=== PATIENT | male | born 1940 | race Caucasian/White ===

== ENCOUNTER 2016-05-04 07:09 | Inpatient (IN) | payer MEDICARE, BC ==
--- NOTE | 2016-05-04 07:18 | ED ---
Altered Mental Status HPI - General Chief Complaint: Altered Mental Status Stated Complaint: altered mental status Time Seen by Provider: 05/04/16 07:09 Source: patient, family, EMS, RN notes reviewed Mode of arrival: EMS Limitations: no limitations - History of Present Illness Initial Comments: This is a 76-year-old male with a history of chronic atrial fibrillation who prior to admission was noted by his to have a shaking episode where he appeared to be the that he was convulsing which lasted about 5 minutes. EMS was called he was very confused next he combative for approximately 15 minutes. He was noted by EMS to have on their arrival set of 94% heart rate of around 55 he slowly regained his cognition and fine was awake alert and oriented 3 with a time he arrived at the hospital. He denies any fevers chills nausea vomiting sweats no headache no focal loss of function to his upper or lower extremities no prior history of seizure disorder. He is not recall any palpitations or any other abnormal activities. No new medications. No prior history of strokes or TIAs. His blood glucose was well for per EMS. Additionally his heart rate was noted to drop down into the 30s briefly but has been maintaining a rate of approximately 55 otherwise. MD Complaint: altered mental status, confusion, other - Related Data Home Medications Medication Instructions Recorded Confirmed Allopurinol [Zyloprim] 300 mg PO DAILY 07/21/14 05/04/16 Ascorbic Acid [Vitamin C] 1,000 mg PO DAILY@1200 07/21/14 05/04/16 Aspirin 325 mg PO DAILY 07/21/14 05/04/16 Atenolol [Tenormin] 12.5 mg PO HS 07/21/14 05/04/16 Atorvastatin [Lipitor] 40 mg PO HS 07/21/14 05/04/16 [place]-3 Fatty Acids/Fish Oil [Fish 1,000 mg PO QAM 07/21/14 05/04/16 Oil 1,000 mg Softgel] Warfarin [Coumadin] 1 mg PO Q48H 07/21/14 05/04/16 Warfarin [Coumadin] 1.5 mg PO Q48H 07/21/14 05/04/16 amLODIPine [Norvasc] 5 mg PO QAM 07/21/14 05/04/16 Ascorbic Acid [Vitamin C] 500 mg PO HS 10/23/14 05/04/16 Losartan Potassium [Cozaar] 50 mg PO QAM 05/04/16 05/04/16 Multivitamins, Thera [Multivitamin] 1 tab PO DAILY@1200 05/04/16 05/04/16 Allergies Allergy/AdvReac Type Severity Reaction Status Date / Time No Known Allergies Allergy Verified 05/04/16 08:17 Review of Systems ROS Statement: Those systems with pertinent positive or pertinent negative responses have been documented in the HPI. ROS Other: All systems not noted in ROS Statement are negative. Past Medical History Past Medical History: Atrial Fibrillation, Hyperlipidemia, Hypertension, Myocardial Infarction ([place]), Prostate Disorder, Sleep Apnea/CPAP/BIPAP Additional Past Medical History / Comment(s): gout Last Myocardial Infarction Date:: 2001 History of Any Multi-Drug Resistant Organisms: None Reported Past Surgical History: Appendectomy, Heart Catheterization With Stent, Orthopedic Surgery Additional Past Surgical History / Comment(s): ORIF rt ankle and rt elbow, septal occluder for heart valve Past Anesthesia/Blood Transfusion Reactions: Motion Sickness Date of Last Stent Placement:: 10/2012 Past Psychological History: No Psychological Hx Reported Smoking Status: Former smoker Past Alcohol Use History: Rare Past Drug Use History: None Reported - Past Family History Sister(s) Family Medical History: Cancer General Exam - General Exam Comments Initial Comments: This is a well-developed well-nourished awake alert oriented 3 male Limitations: no limitations General appearance: alert, in no apparent distress Head exam: Present: atraumatic, normocephalic, normal inspection Eye exam: Present: normal appearance, PERRL, EOMI. Absent: scleral icterus, conjunctival injection, periorbital swelling ENT exam: Present: normal exam, mucous membranes moist Neck exam: Present: normal inspection. Absent: tenderness, meningismus, lymphadenopathy Respiratory exam: Present: normal lung sounds bilaterally. Absent: respiratory distress, wheezes, rales, rhonchi, stridor Cardiovascular Exam: Present: bradycardia, irregular rhythm. Absent: systolic murmur, diastolic murmur, rubs, gallop, clicks GI/Abdominal exam: Present: soft, normal bowel sounds. Absent: distended, tenderness, guarding, rebound, rigid Extremities exam: Present: normal inspection, full ROM, normal capillary refill. Absent: tenderness, pedal edema, joint swelling, calf tenderness Back exam: Present: normal inspection Neurological exam: Present: alert, oriented X3, CN II-XII intact Psychiatric exam: Present: normal affect, normal mood Skin exam: Present: warm, dry, intact, normal color. Absent: rash Course Vital Signs 05/04/16 05/04/16 07:10 09:03 Temperature 96.7 F L Pulse Rate 49 L 50 L Respiratory 18 18 Rate Blood Pressure 143/63 183/77 O2 Sat by Pulse 95 98 Oximetry - Reevaluation(s) Reevaluation #1: 05/04/16 10:49 Reevaluation patient reveals her to be awake alert oriented 3 no distress. Medical Decision Making - Medical Decision Making Reevaluation patient reveals no changes he is back to his usual self I did a long discussion with him and his regarding the findings additionally with Dr. Mondragon. Patient be admitted with evaluation by cardiology and neurology. - Lab Data Result diagrams: 05/04/16 07:40 05/04/16 07:40 Lab Results 05/04/16 05/04/16 05/04/16 Range/Units 07:40 07:40 07:40 WBC 5.8 (3.8-10.6) k/uL RBC 4.16 L (4.30-5.90) m/uL Hgb 13.5 (13.0-17.5) gm/dL Hct 41.0 (39.0-53.0) % MCV 98.7 (80.0-100.0) fL MCH 32.4 (25.0-35.0) pg MCHC 32.9 (31.0-37.0) g/dL RDW 14.0 (11.5-15.5) % Plt Count 114 L (150-450) k/uL Neutrophils % 75 % Lymphocytes % 12 % Monocytes % 7 % Eosinophils % 4 % Basophils % 0 % Neutrophils # 4.3 (1.3-7.7) k/uL Lymphocytes # 0.7 L (1.0-4.8) k/uL Monocytes # 0.4 (0-1.0) k/uL Eosinophils # 0.2 (0-0.7) k/uL Basophils # 0.0 (0-0.2) k/uL PT (9.0-12.0) sec INR (<1.1) APTT (22.0-30.0) sec Sodium (137-145) mmol/L Potassium (3.5-5.1) mmol/L Chloride (98-107) mmol/L Carbon Dioxide (22-30) mmol/L Anion Gap mmol/L BUN (9-20) mg/dL Creatinine (0.66-1.25) mg/dL Est GFR (MDRD) Af Amer (>60 ml/min/1.73 sqM) Est GFR (MDRD) Non-Af (>60 ml/min/1.73 sqM) Glucose (74-99) mg/dL Calcium (8.4-10.2) mg/dL Magnesium (1.6-2.3) mg/dL Total Bilirubin (0.2-1.3) mg/dL AST (17-59) U/L ALT (21-72) U/L Alkaline Phosphatase (38-126) U/L Ammonia <9 (<30) umol/L Total Creatine Kinase 64 (55-170) U/L CK-MB (CK-2) 1.3 (0.0-2.4) ng/mL CK-MB (CK-2) Rel Index 2.0 Troponin I <0.012 (0.000-0.034) ng/mL Total Protein (6.3-8.2) g/dL Albumin (3.5-5.0) g/dL 05/04/16 05/04/16 Range/Units 07:40 07:40 WBC (3.8-10.6) k/uL RBC (4.30-5.90) m/uL Hgb (13.0-17.5) gm/dL Hct (39.0-53.0) % MCV (80.0-100.0) fL MCH (25.0-35.0) pg MCHC (31.0-37.0) g/dL RDW (11.5-15.5) % Plt Count (150-450) k/uL Neutrophils % % Lymphocytes % % Monocytes % % Eosinophils % % Basophils % % Neutrophils # (1.3-7.7) k/uL Lymphocytes # (1.0-4.8) k/uL Monocytes # (0-1.0) k/uL Eosinophils # (0-0.7) k/uL Basophils # (0-0.2) k/uL PT 22.8 H (9.0-12.0) sec INR 2.4 (<1.1) APTT 27.0 (22.0-30.0) sec Sodium 145 (137-145) mmol/L Potassium 4.0 (3.5-5.1) mmol/L Chloride 109 H (98-107) mmol/L Carbon Dioxide 25 (22-30) mmol/L Anion Gap 11 mmol/L BUN 27 H (9-20) mg/dL Creatinine 1.10 (0.66-1.25) mg/dL Est GFR (MDRD) Af Amer >60 (>60 ml/min/1.73 sqM) Est GFR (MDRD) Non-Af >60 (>60 ml/min/1.73 sqM) Glucose 127 H (74-99) mg/dL Calcium 8.6 (8.4-10.2) mg/dL Magnesium 2.0 (1.6-2.3) mg/dL Total Bilirubin 0.7 (0.2-1.3) mg/dL AST 31 (17-59) U/L ALT 31 (21-72) U/L Alkaline Phosphatase 102 (38-126) U/L Ammonia (<30) umol/L Total Creatine Kinase (55-170) U/L CK-MB (CK-2) (0.0-2.4) ng/mL CK-MB (CK-2) Rel Index Troponin I (0.000-0.034) ng/mL Total Protein 5.9 L (6.3-8.2) g/dL Albumin 3.6 (3.5-5.0) g/dL - EKG Data -: EKG Interpreted by Me (EKG shows evidence of atrial fibrillation rate was 46 QRS duration 92 QT/QT) - Radiology Data Radiology results: report reviewed (I did review the imaging and reports no acute findings are seen.), image reviewed Disposition Clinical Impression: Seizure, Altered mental status Disposition: ADMITTED IP TO THIS [facility] Condition: Stable
[2016-05-04 07:53] LABS: Basophils % (A) 0 %; CHCM 33.6; Eosinophils # (A) 0.2 k/uL (0-0.7); Eosinophils % (A) 4 %; HDW 2.58; HGB 13.5 gm/dL (13.0-17.5); Luc # (Auto) 0.13; Luc % (Auto) 2; Lymphocytes # (A) 0.7 k/uL (1.0-4.8); Lymphocytes % (A) 12 %; MCH 32.4 pg (25.0-35.0); MCHC 32.9 g/dL (31.0-37.0); MCV 98.7 fL (80.0-100.0); Mean Platelet Volume 7.5; Monocytes # (A) 0.4 k/uL (0-1.0); Monocytes % (A) 7 %; Neutrophils # (A) 4.3 k/uL (1.3-7.7); Neutrophils % (A) 75 %; RBC 4.16 m/uL (4.30-5.90); WBC 5.8 k/uL (3.8-10.6); WBC (Perox) 6.05
[2016-05-04 07:59] LABS: INR 2.4 (<1.1); Prothrombin Time 22.8 sec (9.0-12.0)
[2016-05-04 08:02] LABS: ALT 31 U/L (21-72); AST 31 U/L (17-59); Alkaline Phosphatase 102 U/L (38-126); Anion Gap 11 mmol/L; Blood Urea Nitrogen 27 mg/dL (9-20); Calcium 8.6 mg/dL (8.4-10.2); Carbon Dioxide 25 mmol/L (22-30); Chloride 109 mmol/L (98-107); Glucose 127 mg/dL (74-99); Non-African American GFR(MDRD) >60 (>60 ml/min/1.73 sqM); Sodium 145 mmol/L (137-145); Total Bilirubin 0.7 mg/dL (0.2-1.3); Total Protein 5.9 g/dL (6.3-8.2)
--- NOTE | 2016-05-04 08:17 | CT ---
EXAMINATION TYPE: CT brain wo con DATE OF EXAM: 05/04/2016 8:09 AM COMPARISON: NONE HISTORY: 76-year-old male altered mental status. Pain. Possible seizure. TECHNIQUE: Examination was done in axial plane without intravenous contrast. Coronal and sagittal reconstructio ns performed. CT DLP: 995.50 mGycm Automated exposure control for dose reduction was used. FINDINGS: There is no evidence of acute intracranial hemorrhage, acute ischemic changes, mass, mass-effect, or extra-axial fluid collection. There is no effacement of cerebral sulci or basal subarachnoid cister ns. There is no hydrocephalus. There is no midline shift. Colby-white matter distinction is preserv ed. There is mild cerebral cortical volume loss and area of encephalomalacia within the anterior left par ietal lobe. Moderate confluent white matter hypodensities are present. Moderate mucosal thickening floors of the maxillary sinuses. Mastoid air cells well pneumatized. Ceru men within the right external auditory canal. Orbits and globes are intact. IMPRESSION: No acute intracranial abnormality seen. Mild generalized atrophy and moderate changes of chronic smal l vessel ischemic disease. 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
--- NOTE | 2016-05-04 08:24 | XR ---
EXAMINATION TYPE: XR chest 2V DATE OF EXAM: 05/04/2016 8:03 AM COMPARISON: 12/22/2012 HISTORY: Altered mental status FINDINGS: The heart is enlarged and there is hyperinflation suggests perihilar interstitial changes noted. No p leural effusion or pneumothorax. Hyperinflation noted. IMPRESSION: 1. Perihilar interstitial changes correlate for interstitial mild chronic venous congestion or inters titial lung disease, pneumonitis. 2. Stable cardiomegaly and findings suggestive of COPD
[2016-05-04 08:26] LABS: Creatine Kinase 64 U/L (55-170)
[2016-05-04 08:40] LABS: Creatine Kinase MB 1.3 ng/mL (0.0-2.4); Troponin I <0.012 ng/mL (0.000-0.034)
[2016-05-04 10:50] LABS: Appearance,Urine Clear (Clear); Bilirubin,Urine Negative (Negative); Glucose,Urine (UA) Negative (Negative); Ketones,Urine Negative (Negative); Leukocyte Esterase,Urine Negative (Negative); Mucus,Urine Rare /hpf; Nitrite,Urine Negative (Negative); Particle Count 2501; Protein,Urine 1+ (Negative); RBC,Urine 1 /hpf (0-5); Specific Gravity,Urine 1.018 (1.001-1.035); Squamous Epithelial Cell,Urine <1 /hpf (0-4); UA Billing (MACRO vs. MICRO) MICRO; Urobilinogen,Urine <2.0 mg/dL (<2.0); WBC,Urine 2 /hpf (0-5)
[2016-05-04] MEDS ORDERED: NALOXONE 0.4 MG/ML 1 ML VIAL IV PRN (10:51)
--- NOTE | 2016-05-04 14:43 | P.CNNES ---
History of Present Illness Consult date: 05/04/16 Reason for Consult: Patient with new onset seizure and chronic atrial fibrillation. History of Present Illness: This patient is a 76-year-old right-handed white male who apparently was in his usual state of health until late yesterday evening. Patient states he was watching a football game with his family and decided to go to bed at about midnight. At about 2 AM apparently he awoke and was having symptoms of confusion. His came to check on him and noted that he was shaking and what appeared to be possibly seizure-like activity. The entire episode lasted about 5 minutes in duration. His called EMS and when they arrived at the home he appeared to be confused and combative. They were also contemplating the fact that he may have had a seizure with postictal changes. The patient was transported by EMS to the emergency room at [facility] for further evaluation. He was seen in the ER by Dr. Barnes. Report was given to the ER physician by the . He did have evidence of chronic atrial fibrillation for which she has been taking Coumadin. He states he has been on Coumadin for over 15 years. His INR in the emergency room came back therapeutic at 2.4. He has no previous history of seizures or major head injury. He did mention that he had bumped his head the day before on the refrigerator door but this was not a severe blow. Patient was sent for computed tomography scan of the brain. CAT scan of the brain revealed no acute intracranial abnormality. There was some generalized atrophy and chronic small vessel ischemic changes noted. Old left parietal lobe infarct was also noted. Patient states he has been feeling fine since coming into the hospital. He has had no further spells. He does use CPAP at night due to his history of obstructive sleep apnea. He has no previous history of TIAs. He does take Lipitor 40 mg daily for hyperlipidemia. The patient denied any episode of loss of bowel or bladder control. He did not bite his tongue. As noted there was no evidence of any active seizures since coming into the hospital. Patient is now admitted and neurology has been consulted for further evaluation and recommendations. Review of Systems Constitutional: Denies chills, Denies fever Eyes: denies blurred vision, denies pain Ears, nose, mouth and throat: Denies headache, Denies sore throat Cardiovascular: Denies chest pain, Denies shortness of breath Respiratory: Denies cough Gastrointestinal: Denies abdominal pain, Denies diarrhea, Denies nausea, Denies vomiting Musculoskeletal: Denies myalgias Integumentary: Denies pruritus, Denies rash Neurological: Reports convulsions, Reports seizures, Denies numbness, Denies weakness Psychiatric: Denies anxiety, Denies depression Endocrine: Denies fatigue, Denies weight change Past Medical History Past Medical History: Atrial Fibrillation, Hyperlipidemia, Hypertension, Myocardial Infarction ([place]), Prostate Disorder, Sleep Apnea/CPAP/BIPAP Additional Past Medical History / Comment(s): gout Last Myocardial Infarction Date:: 2001 History of Any Multi-Drug Resistant Organisms: None Reported Past Surgical History: Appendectomy, Heart Catheterization With Stent, Orthopedic Surgery Additional Past Surgical History / Comment(s): ORIF rt ankle and rt elbow, septal occluder for heart valve Past Anesthesia/Blood Transfusion Reactions: Motion Sickness Date of Last Stent Placement:: 10/2012 Past Psychological History: No Psychological Hx Reported Smoking Status: Former smoker Past Alcohol Use History: Rare Past Drug Use History: None Reported - Past Family History Sister(s) Family Medical History: Cancer Medications and Allergies Home Medications Medication Instructions Recorded Confirmed Type Allopurinol [Zyloprim] 300 mg PO DAILY 07/21/14 05/04/16 History Ascorbic Acid [Vitamin C] 1,000 mg PO DAILY@1200 07/21/14 05/04/16 History Aspirin 325 mg PO DAILY 07/21/14 05/04/16 History Atenolol [Tenormin] 12.5 mg PO HS 07/21/14 05/04/16 History Atorvastatin [Lipitor] 40 mg PO 07/21/14 05/04/16 History [place]-3 Fatty Acids/Fish Oil [Fish 1,000 mg PO QAM 07/21/14 05/04/16 History Oil 1,000 mg Softgel] Warfarin [Coumadin] 1 mg PO Q48H 07/21/14 05/04/16 History Warfarin [Coumadin] 1.5 mg PO Q48H 07/21/14 05/04/16 History amLODIPine [Norvasc] 5 mg PO QAM 07/21/14 05/04/16 History Ascorbic Acid [Vitamin C] 500 mg PO 10/23/14 05/04/16 History Losartan Potassium [Cozaar] 50 mg PO QAM 05/04/16 05/04/16 History Multivitamins, Thera [Multivitamin] 1 tab PO DAILY@1200 05/04/16 05/04/16 History Allergies Allergy/AdvReac Type Severity Reaction Status Date / Time No Known Allergies Allergy Verified 05/04/16 08:17 Physical Examination - Vital Signs Vital Signs: Vital Signs Pulse Resp BP Pulse Ox 05/04/16 11:12 59 L 18 167/75 96 - Constitutional General appearance: average body habitus - EENT EENT: PERRL, mucous membranes moist - Respiratory Respiratory: lungs clear, normal breath sounds - Cardiovascular Cardiovascular: normal S1, normal S2 Extremities: no peripheral edema bilaterally - Gastrointestinal Gastrointestinal: normoactive bowel sounds - Integumentary Integumentary: normal - Neurologic Cranial nerve examination: PERRL, EOMI, VFF, V1/V2/V3 grossly intact, face symmetric, tongue midline, intact gag reflex, intact corneal reflex, normal palatal elevation Speech examination: intact Sensorimotor examination: intact Detailed motor examination: grossly full strength in all extremities Motor examination - right side: 5/5: biceps, triceps, wrist flexion, wrist extension, welder gas, hip flexors, knee extensors, dorsiflexion, toe extension (EHL) , plantarflexion Motor examination - left side: 5/5: biceps, triceps, wrist flexion, wrist extension, welder gas, hip flexors, knee extensors, dorsiflexion, toe extension (EHL) , plantarflexion Detailed sensory examination: intact Reflex and gait examination: intact Reflexes: 1+: ankle, bicep, knee, tricep - Musculoskeletal Musculoskeletal: no pain - Psychiatric Psychiatric: mood/affect appropriate, cooperative Results - Laboratory Findings CBC and BMP: 05/04/16 07:40 05/04/16 07:40 Assessment and Plan Plan: Possible complex partial seizure. This patient is a 76-year-old right-handed white male admitted with episode of unresponsiveness and questionable seizure. Patient had episode early this morning at 5 AM in which he wish a cane and was slightly confused following the event. thought this was a seizure and called EMS. He was brought into the emergency room and subsequently admitted to Hospital. Patient underwent computed tomography scan of the brain which failed to reveal any acute changes. He was admitted to hospital for further evaluation. Patient does have evidence of chronic atrial fibrillation. He had an episode of slight sinus bradycardia in the ER. He is to be evaluated by cardiology. Patient will undergo routine EEG for further evaluation of seizure disorder. His neurological examination at this time is nonfocal. We will continue close neurological follow-up of this patient and we'll await his further evaluation for possible seizure disorder.
--- NOTE | 2016-05-04 14:44 | P.HPIM ---
History of Present Illness H&P Date: 05/04/16 Chief Complaint: Possible seizure This is a 76-year-old male, patient of Dr. Brink. He has a known past medical history of chronic atrial fibrillation, hyperlipidemia, hypertension, myocardial infarction, coronary artery disease and obstructive sleep apnea. Patient reports that he did not remember the events that brought him into the emergency room. Per patient his had heard a strange no A's around 6:00 this morning and went into the patient's bedroom and found him jerking his arms and legs. Patient was confused and combative. She did call EMS. The convulsive episode lasted about 5 minutes per ER report and the confusion lasted about 15 minutes with EMS. ER report. Computed tomography scan of the brain shows no acute changes there is an old left parietal lobe infarct. EKG shows atrial fibrillation with slow ventricular response with PVCs. Heart rate of 46 on EKG. It appears that patient did have a heart rate briefly in the 30s in the emergency room. Heart rate currently is at 63. Neurology and cardiology both been consulted for possible seizure. Patient has no prior history of seizures. He admits to having intermittent chest pains off and on for the last month mostly on the left side of his chest. He reports that does not happen daily. Pain does not radiate. He denies any nausea vomiting or shortness of breath with it. Patient denies any fevers chills or sweats. Denies any bowel movement changes or urinary symptoms. Patient does admit to having some congestion and mild cough. Denies any loss of bowel or bladder control. Denies biting his tongue. Review of Systems Please refer to HPI otherwise unremarkable Past Medical History Past Medical History: Atrial Fibrillation, Hyperlipidemia, Hypertension, Myocardial Infarction ([place]), Prostate Disorder, Sleep Apnea/CPAP/BIPAP Additional Past Medical History / Comment(s): gout Last Myocardial Infarction Date:: 2001 History of Any Multi-Drug Resistant Organisms: None Reported Past Surgical History: Appendectomy, Heart Catheterization With Stent, Orthopedic Surgery Additional Past Surgical History / Comment(s): ORIF rt ankle and rt elbow, septal occluder for heart valve Past Anesthesia/Blood Transfusion Reactions: Motion Sickness Date of Last Stent Placement:: 10/2012 Past Psychological History: No Psychological Hx Reported Smoking Status: Former smoker Past Alcohol Use History: Rare Additional Past Alcohol Use History / Comment(s): Patient used to drink 2-3 beers a day. Stopped drinking about 5 years ago. Quit smoking around 30 years ago. Past Drug Use History: None Reported - Past Family History Sister(s) Family Medical History: Cancer Medications and Allergies Home Medications Medication Instructions Recorded Confirmed Type Allopurinol [Zyloprim] 300 mg PO DAILY 07/21/14 05/04/16 History Ascorbic Acid [Vitamin C] 1,000 mg PO DAILY@1200 07/21/14 05/04/16 History Aspirin 325 mg PO DAILY 07/21/14 05/04/16 History Atenolol [Tenormin] 12.5 mg PO HS 07/21/14 05/04/16 History Atorvastatin [Lipitor] 40 mg PO HS 07/21/14 05/04/16 History [place]-3 Fatty Acids/Fish Oil [Fish 1,000 mg PO QAM 07/21/14 05/04/16 History Oil 1,000 mg Softgel] Warfarin [Coumadin] 1 mg PO Q48H 07/21/14 05/04/16 History Warfarin [Coumadin] 1.5 mg PO Q48H 07/21/14 05/04/16 History amLODIPine [Norvasc] 5 mg PO QAM 07/21/14 05/04/16 History Ascorbic Acid [Vitamin C] 500 mg PO HS 10/23/14 05/04/16 History Losartan Potassium [Cozaar] 50 mg PO QAM 05/04/16 05/04/16 History Multivitamins, Thera [Multivitamin] 1 tab PO DAILY@1200 05/04/16 05/04/16 History Allergies Allergy/AdvReac Type Severity Reaction Status Date / Time No Known Allergies Allergy Verified 05/04/16 08:17 Physical Exam Vitals: Vital Signs Temp Pulse Resp BP Pulse Ox 05/04/16 13:41 97.3 F L 63 18 150/66 100 05/04/16 11:12 59 L 18 167/75 96 Head normocephalic Neck supple Lungs few faint crackles in the left lung base Heart regular rate and rhythm S1-S2, no rub or gallop Abdomen is soft nontender nondistended positive bowel sounds no hepatosplenomegaly Extremities no edema Neuro alert and orientated to 3. No facial droop. No slurred speech. HEENT laminator preforms equal bilaterally. Lower extremity strength equal bilaterally. No tremors noted. Results CBC & Chem 7: 05/04/16 07:40 05/04/16 07:40 Assessment and Plan Plan: 1. Possible seizure: Neurology consulted. EEG ordered. Computed tomography scan of the brain no acute changes did revealed an old left parietal lobe infarct. Mild generalized atrophy and moderate changes of chronic small vessel ischemic disease. Discussed case with neurology. They will monitor him at this time off of seizure medication. No previous history of seizure disorder 2. History of chronic atrial fibrillation with bradycardia. Episode of bradycardia in the emergency room with a heart rate of 30s. At this time we'll hold the atenolol. And have patient evaluated by cardiology. 3. Episodes of chest pain. First troponin negative. Await cardiology evaluation. 4. Chronic thrombocytopenia: We'll monitor 5. Chronic atrial fibrillation with therapeutic INR at 2.4 6. Obstructive sleep apnea uses CPAP at home 7. History of myocardial infarction and coronary artery disease with previous cardiac stenting 8. Hyperlipidemia continue statin GI prophylaxis Pepcid and DVT prophylaxis patient maintained on Coumadin Time with Patient: Greater than 30 (Greater than 50% of the total time spent in counseling and coordination of care.I performed an examination of the patient and discussed their management with the physician Pet Care Associate. I have reviewed the Physician Pet Care Associate's notes and agree with the documented findings and plan of care)
[2016-05-04] MEDS: MULTIVITAMINS, THERA 1 EACH TAB PO SCH (15:59)
[2016-05-04] MEDS: SODIUM CHLORIDE 0.9% 1,000 ML IV SCH (16:00)
[2016-05-04] MEDS ORDERED: WARFARIN 1 MG TAB PO SCH (18:00)
[2016-05-04] MEDS ORDERED: ATENOLOL 12.5 MG TAB PO SCH (21:00)
[2016-05-04] MEDS: ATORVASTATIN 40 MG TAB PO SCH (21:32)
[2016-05-04] MEDS: LOSARTAN 50 MG TAB PO SCH (21:34)
--- NOTE | 2016-05-05 07:04 | CONS ---
DATE OF CONSULTATION: ATTENDING: Dr. Brink and Dr. Mondragon Mr. Mascorro is a 76-year-old male with a known history of coronary artery disease, history of chronic atrial fibrillation, followed on a regular basis by Dr. Tucker Diego who presented with possible seizure activity. Apparently he woke up quite confused has jerking motions in the arms and the legs. His called EMS who brought him over. At the time of my evaluation, he is awake, alert. Patient denies any prior history of seizure. He has a history of coronary artery disease, has underwent percutaneous revascularization twice per Dr. Tucker Diego, permanent atrial fibrillation, anticoagulated. On presentation, he had slow ventricular response. He denies any significant chest discomfort. His breathing is unchanged. He denies any syncope. He has no knowledge of the arrhythmia. No peripheral edema. No PND or no orthopnea. His coronary risk factors are remarkable for remote history of smoking. He has hypertension and hyperlipidemia. He is a nondiabetic. His medications include Coumadin, amlodipine 5 mg daily, Zyloprim, vitamin C, aspirin, Tenormin 12.5 numb daily, Lipitor 40 mg daily, losartan 50 mg daily omega-3 fish oil and multivitamins. REVIEW OF SYSTEMS: RESPIRATORY SYSTEM: He has no recent wheezing. No cough. No history of obstructive lung disease. GI SYSTEM: No recent GI bleeding. No peptic ulcer disease. SYSTEM: No dysuria or hematuria. NERVOUS SYSTEM: No history of stroke or seizure in the past. PHYSICAL EXAMINATION: A 76-year-old male, alert, oriented, in no apparent distress. Blood pressure in the 150/60 with a heart rate in the 60s. HEAD: Normocephalic. EYES: Sclerae anicteric. NECK: Good upstroke. No bruit. No jugular venous distention. LUNGS: Clear to auscultation. HEART: Irregularly irregular. S1, S2, no S3, with a systolic murmur heard at the base. No diastolic murmur. No rub. ABDOMEN: Soft, nontender, positive bowel sounds. No organomegaly. EXTREMITIES: No edema. Intact distal pulses. Lab data revealed troponin less than 0.012 and 0.02. NT-proBNP of 1410. BUN and creatinine of 27 and 1.1. Potassium 4.0, INR 2.4. Hemoglobin 13.5. EKG reveals atrial fibrillation, rate of 46, left axis deviation with evidence consistent with an inferoapical myocardial infarction. 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 A chest x-ray showed evidence of chronic obstructive pulmonary disease. IMPRESSION: 1. Change in mental status with possible seizure activity. The possibility of significant bradyarrhythmia and seizure cannot be totally excluded. 2. Permanent atrial fibrillation, anticoagulated. 3. History of coronary artery disease, status post percutaneous revascularization. 4. History of obstructive sleep apnea. 5. A prior history of smoking. 6. Hypertension. 7. Hyperlipidemia. RECOMMENDATIONS: From the cardiac standpoint, I agree with your plan of holding his beta shila. Will continue his monitoring and see if he has persistent bradycardia then he may be a candidate for permanent pacemaker implantation. In regard to his blood pressure, I will continue on the losartan but I will increase the dose to 50 mg twice a day to optimize his blood pressure control. I will obtain an echocardiogram with Doppler and evaluate his thyroid function tests and depending on his progress, further recommendation will be made. Thank you for this consult. We will follow with you.
[2016-05-05 07:44] LABS: Basophils % (A) 0 %; CH 32.5; CHCM 32.7; Eosinophils # (A) 0.2 k/uL (0-0.7); Eosinophils % (A) 3 %; HCT 41.6 % (39.0-53.0); HDW 2.59; HGB 13.5 gm/dL (13.0-17.5); Luc # (Auto) 0.13; Luc % (Auto) 2; Lymphocytes # (A) 0.9 k/uL (1.0-4.8); Lymphocytes % (A) 13 %; MCH 32.4 pg (25.0-35.0); MCHC 32.4 g/dL (31.0-37.0); Macrocytosis Slight; Mean Platelet Volume 7.9; Monocytes # (A) 0.4 k/uL (0-1.0); Monocytes % (A) 7 %; Neutrophils # (A) 4.7 k/uL (1.3-7.7); Neutrophils % (A) 74 %; RBC 4.15 m/uL (4.30-5.90); RDW 13.9 % (11.5-15.5); WBC 6.3 k/uL (3.8-10.6); WBC (Perox) 6.45
[2016-05-05 07:46] LABS: INR 2.1 (<1.1); Prothrombin Time 20.5 sec (9.0-12.0)
[2016-05-05] MEDS: ASPIRIN 81 MG CHEW PO SCH (07:58)
[2016-05-05] MEDS: ALLOPURINOL 300 MG TAB PO SCH (07:58)
[2016-05-05] MEDS: FAMOTIDINE 20 MG TAB PO SCH (07:58)
[2016-05-05 08:02] LABS: ALT 37 U/L (21-72); AST 30 U/L (17-59); Alkaline Phosphatase 90 U/L (38-126); Anion Gap 11 mmol/L; Blood Urea Nitrogen 20 mg/dL (9-20); Calcium 8.6 mg/dL (8.4-10.2); Carbon Dioxide 27 mmol/L (22-30); Chloride 108 mmol/L (98-107); Glucose 87 mg/dL (74-99); Non-African American GFR(MDRD) >60 (>60 ml/min/1.73 sqM); Potassium 3.9 mmol/L (3.5-5.1); Sodium 146 mmol/L (137-145); Total Bilirubin 1.2 mg/dL (0.2-1.3)
[2016-05-05] MEDS ORDERED: LOSARTAN 50 MG TAB PO SCH (09:00)
[2016-05-05] MEDS ORDERED: NON-FORMULARY DRUG (Omega-3 Fatty Acids/Fish Oil [Fish Oil 1,000 Mg Softgel] 1,000 MG) PO SCH (09:00)
[2016-05-05] MEDS ORDERED: amLODIPine 5 MG TAB PO SCH (09:00)
[2016-05-05] MEDS ORDERED: ASPIRIN 325 MG TAB PO SCH (09:00)
--- NOTE | 2016-05-05 10:46 | ECHOF ---
Referral Reason:Afib MEASUREMENTS -------- HEIGHT: 172.7 cm WEIGHT: 79.8 kg BP: 154/96 RVIDd: 3.5 cm (< 3.3) IVSd: 1.3 cm (0.6 - 1.1) LVIDd: 4.5 cm (3.9 - 5.3) LVPWd: 1.3 cm (0.6 - 1.1) IVSs: 1.9 cm LVIDs: 2.9 cm LVPWs: 2.0 cm LA Diam: 4.7 cm (2.7 - 3.8) LAESV Index (A-L): 41.14 ml/m Ao Diam: 3.3 cm (2.0 - 3.7) AV Cusp: 1.9 cm (1.5 - 2.6) LA Diam: 4.6 cm (2.7 - 3.8) MV EXCURSION: 16.659 mm (> 18.000) MV EF SLOPE: 107 mm/s (70 - 150) EPSS: 0.7 cm AR PHT: 938 ms RAP: 5.00 mmHg RVSP: 58.81 mmHg FINDINGS -------- Atrial fibrillation. This was a technically good study. There is mild concentric left ventricular hypertrophy. Overall left ventricular systolic function is normal with, an EF between 60 - 65 %. The right ventricle is mildly enlarged. LA is severely dilated >40 ml/m2 RA appears enlarged. Aortic valve is trileaflet and is mildly thickened. There is mild aortic regurgitation. The mitral valve leaflets are mildly thickened. Mild mitral annular calcification present. Mild mitral regurgitation is present. Leht-dy-ulpltunv tricuspid regurgitation present. There is moderate to severe pulmonary hypertension. The right ventricular systolic pressure, as measured by Doppler, is 58.81mmHg. Trace/mild (physiologic) pulmonic regurgitation. The aortic root size is normal. Normal inferior vena cava with normal inspiratory collapse consistent with estimated right atrial pressure of 5 mmHg. The pericardium is normal. CONCLUSIONS -------- 1. Atrial fibrillation. 2. The mitral valve leaflets are mildly thickened. 3. Mild mitral annular calcification present. 4. Mild mitral regurgitation is present. 5. Zapb-bn-arofpfap tricuspid regurgitation present. 6. There is moderate to severe pulmonary hypertension. 7. The right ventricular systolic pressure, as measured by Doppler, is 58.81mmHg. 8. Trace/mild (physiologic) pulmonic regurgitation. 9. The aortic root size is normal. 10. The pericardium is normal. 11. This was a technically good study. 12. There is mild concentric left ventricular hypertrophy. 13. Overall left ventricular systolic function is normal with, an EF between 60 - 65 %. 14. The right ventricle is mildly enlarged. 15. LA is severely dilated >40 ml/m2 16. RA appears enlarged. 17. Aortic valve is trileaflet and is mildly thickened. 18. There is mild aortic regurgitation. RESEARCH SCHOLAR: Oliver Simeon RDCS
[2016-05-05] MEDS: LOSARTAN 50 MG TAB PO SCH ×2 (10:56→19:37)
[2016-05-05] MEDS: SODIUM CHLORIDE 0.9% 1,000 ML IV SCH ×2 (12:39→18:49)
[2016-05-05] MEDS: MULTIVITAMINS, THERA 1 EACH TAB PO SCH (12:39)
[2016-05-05] MEDS ORDERED: amLODIPine 5 MG TAB PO ONE (13:30)
--- NOTE | 2016-05-05 13:49 | P.PN ---
Subjective Patient is doing fairly well today. He still bradycardic on the monitor off beta blockers. Objective - Vital Signs Vital signs: Vital Signs Temp 97.7 F 05/05/16 12:00 Pulse 54 L 05/05/16 12:00 Resp 16 05/05/16 12:00 BP 176/82 05/05/16 12:00 Pulse Ox 98 05/05/16 12:00 Intake & Output 05/04/16 05/05/16 05/05/16 18:59 06:59 18:59 Intake Total 336 Output Total 1000 200 Balance 336 -1000 -200 Weight 75.8 kg Intake: Oral 336 Output: Urine 1000 200 Other: Voiding Method Toilet Toilet Urinal Urinal # Voids 1 1 0 # Bowel Movements 1 - Exam General: The patient is awake and alert, in no distress Eye: there is normal conjunctiva bilaterally. Neck: The neck is supple, there is no JVD. Cardiovascular: Normal S1-S2, no S3-S4, no murmurs. Respiratory: Lungs clear to auscultation bilaterally Gastrointestinal: Abdomen is soft, nontender Musculoskeletal: There is no pedal edema. Neurological:. Speech is normal. Skin: Skin is warm and dry - Labs CBC & Chem 7: 05/05/16 06:33 05/05/16 06:33 Labs: Abnormal Lab Results - Last 24 Hours (Table) 05/05/16 05/05/16 05/05/16 Range/Units 06:33 06:33 06:33 RBC 4.15 L (4.30-5.90) m/uL Plt Count 110 L (150-450) k/uL Lymphocytes # 0.9 L (1.0-4.8) k/uL PT 20.5 H (9.0-12.0) sec Sodium 146 H (137-145) mmol/L Chloride 108 H (98-107) mmol/L Total Protein 6.0 L (6.3-8.2) g/dL Albumin 3.3 L (3.5-5.0) g/dL Assessment and Plan Plan: 1. Possible seizure: Neurology consulted. EEG ordered. Computed tomography scan of the brain no acute changes did revealed an old left parietal lobe infarct. Mild generalized atrophy and moderate changes of chronic small vessel ischemic disease. Discussed case with neurology. They will monitor him at this time off of seizure medication. No previous history of seizure disorder 2. History of chronic atrial fibrillation with bradycardia. Cardiology following. Continue to hold atenolol. 3. Chronic atrial fibrillation on Coumadin 4. Chronic thrombocytopenia: We'll monitor 5. History of myocardial infarction and coronary artery disease with previous cardiac stenting 6. Obstructive sleep apnea uses CPAP at home 7. Hyperlipidemia continue statin
--- NOTE | 2016-05-05 15:25 | P.PN ---
Subjective Principal diagnosis: Seizures This is a 76-year-old gentleman with known history of coronary artery disease, chronic atrial fibrillation, follows with Dr. Shelli Diego in the office. He presented to the hospital with what appears to be seizures. On presentation here patient was found to have a slow ventricular response, beta shila was put on hold. Heart rate today is in the 50s to 60s, he's been up ambulating without any difficulty. Blood pressure today 170 systolic, Norvasc increased to 10 mg daily. Echo revealed normal left ventricular systolic function. Objective - Vital Signs Vital signs: Vital Signs Temp 97.7 F 05/05/16 12:00 Pulse 54 L 05/05/16 12:00 Resp 16 05/05/16 12:00 BP 176/82 05/05/16 12:00 Pulse Ox 98 05/05/16 12:00 Intake & Output 05/04/16 05/05/16 05/05/16 18:59 06:59 18:59 Intake Total 336 Output Total 1000 200 Balance 336 -1000 -200 Weight 75.8 kg Intake: Oral 336 Output: Urine 1000 200 Other: Voiding Method Toilet Toilet Urinal Urinal # Voids 1 1 0 # Bowel Movements 1 - Exam PHYSICAL EXAMINATION: HEENT: Head is atraumatic, normocephalic. Pupils equal, round. Neck is supple. There is no elevated jugular venous pressure. HEART EXAMINATION: S1 and S2 irregular irregular a systolic murmur is heard. CHEST EXAMINATION: Lungs are clear to auscultation and precussion. No chest wall tenderness is noted on palpation or with deep breathing. ABDOMEN: Soft, nontender. Bowel sounds are heard. No organomegaly noted. EXTREMITIES: 2+ peripheral pulses with no evidence of peripheral edema and no calf tenderness noted. NEUROLOGIC patient is awake, alert and oriented -3. . - Labs CBC & Chem 7: 05/05/16 06:33 05/05/16 06:33 Labs: Abnormal Lab Results - Last 24 Hours (Table) 05/05/16 05/05/16 05/05/16 Range/Units 06:33 06:33 06:33 RBC 4.15 L (4.30-5.90) m/uL Plt Count 110 L (150-450) k/uL Lymphocytes # 0.9 L (1.0-4.8) k/uL PT 20.5 H (9.0-12.0) sec Sodium 146 H (137-145) mmol/L Chloride 108 H (98-107) mmol/L Total Protein 6.0 L (6.3-8.2) g/dL Albumin 3.3 L (3.5-5.0) g/dL Assessment and Plan (1) Chronic a-fib Status: Acute (2) CAD (coronary artery disease) Status: Acute (3) Sleep apnea Status: Acute (4) HTN (hypertension) Status: Acute (5) Hyperlipemia Status: Acute (6) Seizure Status: Acute Plan: Cardiology standpoint, we will increase in Norvasc to 10 mg daily. Continue to hold beta shila. He may be able to be discharged home once cleared by the primary, and a follow-up appointment will be made with Dr. Shelli Diego in the office post discharge. At this time we will follow him with you on an as- needed basis only, please don't hesitate to call with any questions. DNP note has been reviewed, I agree with a documented findings and plan of care. Patient was seen and examined.
[2016-05-05] MEDS ORDERED: WARFARIN 1.5 MG TAB PO SCH (18:00)
[2016-05-05] MEDS ORDERED: hydrALAZINE HCL 20 MG/ML 1 ML VIAL IVP PRN (18:25)
--- NOTE | 2016-05-05 19:34 | P.PN ---
Subjective This patient is a 76-year-old right-handed white male who was admitted to hospital with episode of syncope versus seizure. Patient was admitted with episode yesterday of possible shaking and unresponsiveness. The entire episode lasted about 5 minutes in duration. Following this event he appeared to be confused and combative. He was brought into the emergency room for further evaluation and was subsequently admitted to the hospital. He was seen for neurological consultation yesterday for syncope versus seizure. Patient underwent computed tomography scan of the brain which was negative for any evidence of acute stroke. He has a history of chronic atrial fibrillation and is on Coumadin therapy. His INR was therapeutic on admission. He did have an episode of bradycardia which is being further evaluated by cardiology. His neurological examination yesterday and today is nonfocal. Patient did undergo routine EEG today which was reviewed. His EEG is within normal limits for his age. There is no evidence of any epileptic seizure focus. He has not had no further episodes of syncope and collapse since admission. He is being followed closely by cardiology. They're monitoring his bradycardia and may adjust some of his medications. He continues to be neurologically stable with no further recurrence of symptoms. We will continue close neurological follow-up for the patient. Objective - Vital Signs Vital signs: Vital Signs Temp 97.1 F L 05/05/16 15:53 Pulse 52 L 05/05/16 15:53 Resp 16 05/05/16 15:53 BP 164/90 05/05/16 15:53 Pulse Ox 97 05/05/16 15:53 Intake & Output 05/04/16 05/05/16 05/05/16 18:59 06:59 18:59 Intake Total 336 160 Output Total 1000 200 Balance 336 -1000 -40 Weight 75.8 kg Intake: IV 160 Sodium Chloride 0.9% 1, 160 000 ml @ 20 mls/hr IV . Q24H [facility] Rx#:[id number] Oral 336 Output: Urine 1000 200 Other: Voiding Method Toilet Toilet Urinal Urinal # Voids 1 1 0 # Bowel Movements 1 - Exam Physical examination: PHYSICAL EXAMINATION: Patient is resting comfortably in bed. VITAL SIGNS: Blood pressure is [164/90]. Heart rate is [52]. Respiration is [16] . Temperature is [97.1]. HEENT: Head is atraumatic, neck is supple, there were no carotid bruits. CHEST: Lungs are clear to auscultation and percussion. CARDIAC: S1, S2 normal rate and rhythm. There is no murmur. ABDOMEN: Soft and nontender. Bowel sounds are present. EXTREMITIES: There is no pedal edema. Peripheral pulses are present. Neurological examination: Patient has a nonfocal neurological examination today. - Labs CBC & Chem 7: 05/05/16 06:33 05/05/16 06:33 Labs: Abnormal Lab Results - Last 24 Hours (Table) 05/05/16 05/05/16 05/05/16 Range/Units 06:33 06:33 06:33 RBC 4.15 L (4.30-5.90) m/uL Plt Count 110 L (150-450) k/uL Lymphocytes # 0.9 L (1.0-4.8) k/uL PT 20.5 H (9.0-12.0) sec Sodium 146 H (137-145) mmol/L Chloride 108 H (98-107) mmol/L Total Protein 6.0 L (6.3-8.2) g/dL Albumin 3.3 L (3.5-5.0) g/dL Assessment and Plan Plan: Possible complex partial seizure. This patient is a 76-year-old right-handed white male admitted with episode of unresponsiveness and questionable seizure. Patient had episode early this morning at 5 AM in which he wish a cane and was slightly confused following the event. thought this was a seizure and called EMS. He was brought into the emergency room and subsequently admitted to Hospital. Patient underwent computed tomography scan of the brain which failed to reveal any acute changes. He was admitted to hospital for further evaluation. Patient does have evidence of chronic atrial fibrillation. He had an episode of slight sinus bradycardia in the ER. He is to be evaluated by cardiology. Patient will undergo routine EEG for further evaluation of seizure disorder. His neurological examination at this time is nonfocal. The patient underwent routine EEG today which was reviewed. His EEG is within normal limits for his age with no evidence of any seizure focus. He continues to be closely monitored by cardiology for sinus bradycardia. We will await cardiology is further recommendations. Neurological examination today is nonfocal. If cleared by medicine and cardiology the patient may be discharged home and may follow-up in the outpatient neurology clinic in 3-4 weeks. Overall prognosis at this time remains guarded.
[2016-05-05] MEDS: ATORVASTATIN 40 MG TAB PO SCH (19:37)
[2016-05-05] MEDS: hydrALAZINE HCL 25 MG TAB PO SCH (21:27)
[2016-05-06 00:04] VITALS: RESP 16
--- NOTE | 2016-05-06 05:02 | EEG ---
DATE OF SERVICE: 05/05/2016 INDICATIONS FOR EXAMINATION: This patient is a 76-year-old male being evaluated for acute syncope versus seizure event. Patient with episode of confusion and shaking lasting 5 minutes in duration. Patient also has history of chronic atrial fibrillation and new onset bradycardia. AGE: 76Y EEG FINDINGS: A routine 21-channel, awake digital EEG recording was accomplished utilizing the 10 to 20 international system with bipolar and referential montages. The background activity in the most alert resting state consists of a low to medium amplitude, fairly well-developed and well-sustained 7 to 8 Hz activity over the posterior head regions. This posterior rhythm attenuates to eye opening. There is a small amount of low amplitude 18 to 20 Hz beta activity seen maximally over the anterior head regions. Muscle and movement artifact was observed on a few occasions during the tracing. Hyperventilation was not performed. Photic stimulation at flash frequencies of 2 to 30 Hz produced a good symmetrical occipital driving response. Towards the mid and latter portion tracing the patient does drift into spontaneous drowsiness. No epileptiform discharges were seen. IMPRESSION: This EEG is within normal limits for the patient's age. The EEG failed to reveal any focal, lateralized or epileptiform abnormalities. Clinical correlation is recommended.
[2016-05-06 06:27] VITALS: BP 143/84; PULSE 76; TEMP 97.1
[2016-05-06 08:40] LABS: Basophils % (A) 0 %; CH 32.8; CHCM 33.5; Eosinophils # (A) 0.2 k/uL (0-0.7); Eosinophils % (A) 3 %; HCT 44.9 % (39.0-53.0); HDW 2.57; HGB 14.8 gm/dL (13.0-17.5); Luc # (Auto) 0.18; Luc % (Auto) 3; Lymphocytes # (A) 0.6 k/uL (1.0-4.8); Lymphocytes % (A) 9 %; MCH 32.3 pg (25.0-35.0); MCHC 32.8 g/dL (31.0-37.0); MCV 98.5 fL (80.0-100.0); Mean Platelet Volume 7.3; Monocytes # (A) 0.4 k/uL (0-1.0); Monocytes % (A) 6 %; Neutrophils # (A) 5.2 k/uL (1.3-7.7); Neutrophils % (A) 79 %; RBC 4.56 m/uL (4.30-5.90); RDW 14.2 % (11.5-15.5); WBC 6.6 k/uL (3.8-10.6); WBC (Perox) 6.84
[2016-05-06 08:46] LABS: INR 1.9 (<1.1); Prothrombin Time 17.9 sec (9.0-12.0)
[2016-05-06] MEDS ORDERED: amLODIPine 10 MG TAB PO SCH (09:00)
[2016-05-06] MEDS: LOSARTAN 50 MG TAB PO SCH (09:22)
[2016-05-06] MEDS: FAMOTIDINE 20 MG TAB PO SCH (09:22)
[2016-05-06] MEDS: ASPIRIN 81 MG CHEW PO SCH (09:22)
[2016-05-06] MEDS: ALLOPURINOL 300 MG TAB PO SCH (09:22)
[2016-05-06] MEDS: hydrALAZINE HCL 25 MG TAB PO SCH (09:22)
[2016-05-06 09:54] LABS: ALT 38 U/L (21-72); AST 34 U/L (17-59); Alkaline Phosphatase 103 U/L (38-126); Anion Gap 13 mmol/L; Blood Urea Nitrogen 18 mg/dL (9-20); Calcium 9.1 mg/dL (8.4-10.2); Carbon Dioxide 28 mmol/L (22-30); Chloride 106 mmol/L (98-107); Glucose 109 mg/dL (74-99); Non-African American GFR(MDRD) >60 (>60 ml/min/1.73 sqM); Potassium 3.8 mmol/L (3.5-5.1); Sodium 147 mmol/L (137-145); Total Bilirubin 1.6 mg/dL (0.2-1.3); Total Protein 6.8 g/dL (6.3-8.2)
--- NOTE | 2016-05-06 11:11 | P.DS ---
Providers Date of admission: 05/04/16 10:51 Expected date of discharge: 05/06/16 Attending physician: Louis Mondragon [facility] Course: This is a 76-year-old gentleman with past medical history noted below who presented to the hospital initially with an episode of jerking/tremor involving his arms and legs. Patient was evaluated in the emergency room and was admitted to the hospital to rule out seizure. Patient was seen and evaluated by neurology. Computed tomography scan of the brain showed no acute intracranial findings but evidence of old parietal lobe infarct. Patient was placed on seizure precaution. He underwent an EEG that was reported within normal limits. Patient presentation was thought to be secondary to a lot of stress that he was having at home. He was not started on any seizure medication. He was noted to be bradycardic in the 50s and his atenolol was discontinued. Also his blood pressure medication were adjusted given uncontrolled blood pressure. Below is the least of his medical problems addressed during this hospitalization. He will be discharged home on low dose metoprolol and follow up with his primary care physician within the next few days.Heart rate on the day of discharge in the 70s and 80s. Below is a list of his medical problems: 1. History of myocardial infarction and coronary artery disease with previous cardiac stenting 2. Obstructive sleep apnea uses CPAP at home 3. Chronic atrial fibrillation on Coumadin 4. Chronic thrombocytopenia: We'll monitor 5. Hyperlipidemia continue statin Patient Condition at Discharge: Stable Plan - Discharge Summary New Discharge Prescriptions: Aspirin EC [Ecotrin Low Dose] 81 mg PO DAILY #30 tablet. Losartan Potassium [Cozaar] 100 mg PO DAILY #30 tab Metoprolol Tartrate [Lopressor] 12.5 mg PO BID #60 dose amLODIPine BESYLATE [Norvasc] 10 mg PO HS #30 tablet Discharge Medication List Allopurinol [Zyloprim] 300 mg PO DAILY 07/21/14 [History] Ascorbic Acid [Vitamin C] 1,000 mg PO DAILY@1200 07/21/14 [History] Atorvastatin [Lipitor] 40 mg PO HS 07/21/14 [History] Warfarin [Coumadin] 1 mg PO Q48H 07/21/14 [History] Warfarin [Coumadin] 1.5 mg PO Q48H 07/21/14 [History] amLODIPine [Norvasc] 5 mg PO QAM 07/21/14 [History] Ascorbic Acid [Vitamin C] 500 mg PO HS 10/23/14 [History] Multivitamins, Thera [Multivitamin] 1 tab PO DAILY@1200 05/04/16 [History] Aspirin EC [Ecotrin Low Dose] 81 mg PO DAILY #30 tablet. 05/06/16 [Rx] Losartan Potassium [Cozaar] 100 mg PO DAILY #30 tab 05/06/16 [Rx] Metoprolol Tartrate [Lopressor] 12.5 mg PO BID #60 dose 05/06/16 [Rx] amLODIPine BESYLATE [Norvasc] 10 mg PO HS #30 tablet 05/06/16 [Rx] Follow up Appointment(s)/Referral(s): Christin Brink MD [Primary Care Provider] - 3 Days Discharge Disposition: HOME SELF-CARE
--- NOTE | 2016-05-06 16:47 | P.PN ---
Subjective This patient is a 76-year-old right-handed white male who was initially admitted to hospital with episode of unresponsiveness and questionable seizure activity. He was seen in the emergency room initially and underwent a computed tomography scan the brain. CAT scan of the brain was negative for any acute stroke or hemorrhage. He was suddenly admitted to Hospital. His neurological examination since admission has been nonfocal. He underwent a routine EEG which was reviewed and was within normal limits for his age. He was found to have evidence of intermittent sinus bradycardia with heart rates in the 50s. Cardiology was consult to Dae atenolol medication was discontinued. His blood pressure has remained relatively stable. He was to be discharged on low- dose medical [place] will follow-up with his primary care physician. There was some concern that his recent episode may have been stress related. We once again reviewed all of his neurological test results with him in detail. She should continue on one baby aspirin daily for secondary stroke prevention. He is also on Coumadin therapy for history of atrial fibrillation. Patient is being considered for discharge to home later today. Objective - Vital Signs Vital signs: Vital Signs Temp 97.1 F L 05/06/16 06:26 Pulse 76 05/06/16 06:26 Resp 16 05/06/16 06:26 BP 143/84 05/06/16 06:26 Pulse Ox 94 L 05/06/16 06:26 Intake & Output 05/05/16 05/06/16 05/06/16 18:59 06:59 18:59 Intake Total 340 320 200 Output Total 200 325 Balance 140 -5 200 Weight 74.616 kg Intake: IV 160 320 Sodium Chloride 0.9% 1, 160 320 000 ml @ 20 mls/hr IV . Q24H [facility] Rx#:[id number] Oral 180 200 Output: Urine 200 325 Other: Voiding Method Toilet Urinal # Voids 0 # Bowel Movements 1 - Exam Physical examination: PHYSICAL EXAMINATION: Patient is resting comfortably in bed. VITAL SIGNS: Blood pressure is [143/84]. Heart rate is [76]. Respiration is [16] . Temperature is [97.1]. HEENT: Head is atraumatic, neck is supple, there were no carotid bruits. CHEST: Lungs are clear to auscultation and percussion. CARDIAC: S1, S2 normal rate and rhythm. There is no murmur. ABDOMEN: Soft and nontender. Bowel sounds are present. EXTREMITIES: There is no pedal edema. Peripheral pulses are present. Neurological examination: Patient has a nonfocal neurological exam. - Labs CBC & Chem 7: 05/06/16 08:28 05/06/16 08:28 Labs: Abnormal Lab Results - Last 24 Hours (Table) 05/06/16 05/06/16 05/06/16 Range/Units 08:28 08:28 08:28 Plt Count 111 L (150-450) k/uL Lymphocytes # 0.6 L (1.0-4.8) k/uL PT 17.9 H (9.0-12.0) sec Sodium 147 H (137-145) mmol/L Glucose 109 H (74-99) mg/dL Total Bilirubin 1.6 H (0.2-1.3) mg/dL Assessment and Plan Plan: Possible complex partial seizure. This patient is a 76-year-old right-handed white male admitted with episode of unresponsiveness and questionable seizure. Patient had episode early this morning at 5 AM in which he wish a cane and was slightly confused following the event. thought this was a seizure and called EMS. He was brought into the emergency room and subsequently admitted to Hospital. Patient underwent computed tomography scan of the brain which failed to reveal any acute changes. He was admitted to hospital for further evaluation. Patient does have evidence of chronic atrial fibrillation. He had an episode of slight sinus bradycardia in the ER. He is to be evaluated by cardiology. Patient will undergo routine EEG for further evaluation of seizure disorder. His neurological examination at this time is nonfocal. The patient underwent routine EEG today which was reviewed. His EEG is within normal limits for his age with no evidence of any seizure focus. He continues to be closely monitored by cardiology for sinus bradycardia. We will await cardiology is further recommendations. Neurological examination today is nonfocal. If cleared by medicine and cardiology the patient may be discharged home and may follow-up in the outpatient neurology clinic in 3-4 weeks. We reviewed all of his neurological test results with the patient today. All testing has come back negative with no evidence of underlying seizure disorder. He may follow- up in the outpatient neurology clinic in 3-4 weeks. Overall prognosis at this time remains guarded.
== END 2016-05-06 11:56 | disposition home or self-care (01) | DRG 93 ==
LOC: EC 07:09 → 6SEL 10:51 → 4MS4W 05-05 19:40
PROVIDERS: ADMIT Internal Medicine; ATTEND Internal Medicine
DX: R25.1 Tremor, unspecified (principal); D69.6 Thrombocytopenia, unspecified; I48.2 Chronic atrial fibrillation; I25.10 Atherosclerotic heart disease of native coronary artery without angina pectoris; I10 Essential (primary) hypertension; T44.7X5A Adverse effect of beta-adrenoreceptor antagonists, initial encounter; I67.9 Cerebrovascular disease, unspecified; R07.9 Chest pain, unspecified; R41.82 Altered mental status, unspecified; G47.33 Obstructive sleep apnea (adult) (pediatric); E78.5 Hyperlipidemia, unspecified; I25.2 Old myocardial infarction; I49.3 Ventricular premature depolarization; N42.9 Disorder of prostate, unspecified; R05 Cough; M10.9 Gout, unspecified; Z79.899 Other long term (current) drug therapy; Z63.9 Problem related to primary support group, unspecified; Z95.5 Presence of coronary angioplasty implant and graft; Z79.01 Long term (current) use of anticoagulants; Z79.82 Long term (current) use of aspirin; Z87.891 Personal history of nicotine dependence; Z80.9 Family history of malignant neoplasm, unspecified; Z90.49 Acquired absence of other specified parts of digestive tract; Z87.81 Personal history of (healed) traumatic fracture; W22.8XXA Striking against or struck by other objects, initial encounter; Y93.9 Activity, unspecified; Y92.000 Kitchen of unspecified non-institutional (private) residence as the place of occurrence of the external cause
CPT/HCPCS: 36415; 70450; 71020; 80053; 81001; 82140; 82550; 82553; 83735; 83880; 84443; 84484; 85025; 85610; 85730; 93005; 93306; 94760; 95819; 99285

== ENCOUNTER → 2016-05-19 | Outpatient (CLI) | payer MEDICARE, BC ==
[2016-05-19 17:35] LABS: Anion Gap 15 mmol/L; Blood Urea Nitrogen 25 mg/dL (9-20); Calcium 9.8 mg/dL (8.4-10.2); Carbon Dioxide 26 mmol/L (22-30); Chloride 105 mmol/L (98-107); Glucose 85 mg/dL (74-99); Non-African American GFR(MDRD) >60 (>60 ml/min/1.73 sqM); Potassium 4.2 mmol/L (3.5-5.1); Sodium 146 mmol/L (137-145)
[2016-05-19 17:38] LABS: Partial Thromboplastin Time 28.5 sec (22.0-30.0); Prothrombin Time 19.4 sec (9.0-12.0)
[2016-05-19 17:41] LABS: CH 32.9; CHCM 33.3; HCT 45.2 % (39.0-53.0); HDW 2.57; HGB 14.8 gm/dL (13.0-17.5); MCH 32.6 pg (25.0-35.0); MCHC 32.8 g/dL (31.0-37.0); MCV 99.5 fL (80.0-100.0); Mean Platelet Volume 8.8; RBC 4.55 m/uL (4.30-5.90); RDW 14.1 % (11.5-15.5); WBC 8.1 k/uL (3.8-10.6)
== END ==
LOC: LABWHC1 16:57
PROVIDERS: ATTEND Internal Medicine Interventional Cardiology
DX: I10 Essential (primary) hypertension (principal)
CPT/HCPCS: 36415; 80048; 85027; 85610; 85730

== ENCOUNTER 2016-05-26 08:07 | Day surgery (SDC) | payer MEDICARE, BC ==
[2016-05-21 16:54] VITALS: BMI 25.4
[2016-05-26] MEDS ORDERED: ceFAZolin 1,000 MG in SODIUM CHLORIDE 0.9% IRRIGATIO 250 ML IRRIGATION ONE (08:08)
[2016-05-26] MEDS ORDERED: ceFAZolin 2 GM in SODIUM CHLORIDE 0.9% 100 ML IVPB ONE (08:08)
[2016-05-26 09:21] LABS: INR 1.6 (<1.1); Prothrombin Time 15.5 sec (9.0-12.0)
[2016-05-26] MEDS ORDERED: SODIUM CHLORIDE 0.9% 500 ML IV ONE (09:26)
[2016-05-26] MEDS ORDERED: IOHEXOL 350 MG/ML 100 ML BOTTLE INJ ONE (09:39)
[2016-05-26] MEDS ORDERED: MIDAZOLAM 2 MG/2 ML VIAL ONE (09:52)
[2016-05-26] MEDS ORDERED: MIDAZOLAM 2 MG/2 ML VIAL IV ONE (09:57)
[2016-05-26] MEDS: LIDOCAINE 2% INJ 20 MG/ML SQ ONE ×2 (10:04→10:35)
[2016-05-26] MEDS ORDERED: ACETAMINOPHEN TAB 325 MG TAB PO PRN (11:32)
--- NOTE | 2016-05-26 12:19 | XR ---
EXAMINATION TYPE: XR chest 1V portable DATE OF EXAM: 05/26/2016 12:12 PM COMPARISON: 05/26/2016 HISTORY: Pacemaker insertion TECHNIQUE: Single frontal view of the chest is obtained. FINDINGS: There is no focal air space opacity, pleural effusion, or pneumothorax seen. The cardiac silhouette size is within normal limits. The osseous structures are intact. Heart is enlarged and t here is a left-sided pacemaker single lead with the lead overlying the right ventricle. Underlying COPD noted. Linear changes at the lung bases most typical of atelectasis. IMPRESSION: 1. Pacemaker appears in good position with no postprocedural complication.
[2016-05-26] MEDS: SODIUM CHLORIDE 0.9% 1,000 ML IV SCH (16:59)
[2016-05-26] MEDS: ceFAZolin 2 GM in SODIUM CHLORIDE 0.9% 100 ML IVPB SCH ×2 (17:25→20:51)
[2016-05-26] MEDS ORDERED: amLODIPine 10 MG TAB PO SCH (21:00)
[2016-05-26] MEDS ORDERED: ATORVASTATIN 40 MG TAB PO SCH (21:00)
--- NOTE | 2016-05-26 21:51 | PCN ---
DATE OF PROCEDURE: 05/26/2016 PROCEDURE: Single-chamber permanent pacemaker placement from left infraclavicular approach. PERFORMED BY: Dr. Tucker Diego. CLINICAL INFORMATION: Mr. Von Mascorro is a 76-year-old gentleman with history of CAD, multi-vessel PCI, chronic atrial fibrillation, PFO, status post percutaneous closure. He has been having episodes of bradycardia with syncope and was therefore advised a permanent pacemaker after due discussion and explanation of risks, benefits and options. PROCEDURE NOTE: Under local anesthesia and strict aseptic precautions, an access was attempted from the left infraclavicular approach. I had some difficulty gaining the access. A venogram was performed. Dr. Barajas helped me gained access to the left axillary vein. A linear incision medial and parallel to the left deltopectoral groove was made. This was a 2-1/2- to 3-inch incision. Blunt dissection was carried to the level of the fascia. The surgical pocket was made. The surgical pocket was drenched with antibiotic solution. A 6 Yi introducer was placed over the guidewire. The ventricular lead was then advanced and positioned at the right ventricular apex. Good threshold and sensitivities were obtained. The lead was secured. The lead was then connected to the pulse generator. The pulse generator was also secured with 0 silk. The wound was then closed in 2 layers. Excellent hemostasis was achieved. Patient tolerated the procedure well without complications. PACEMAKER DETAILS: The pulse generator combine mechanic is [employer], model Assurity [id number], serial #[id number]. Ventricular lead combine mechanic is [employer], model Tendril [id number], serial #[id number]. Threshold was 0.5 v at 0.5 ms. R wave was 10.4 mV. Lead impedance was 610 ohms. Pacemaker setting was at 60 beats per minute in a VVI mode. Patient tolerated the procedure well without complications. Discussed with the patient and his , and I expect that he will be discharged tomorrow after obtaining a chest x-ray and recheck of the device in the morning.
--- NOTE | 2016-05-26 21:53 | LTR ---
May 26, 2016 RE: MascorroVon hardin Dear Dr. Brink, Thank you for the opportunity to participate in the care of Mr. Von Mascorro. I am pleased to report to you that this gentleman had a permanent pacemaker placed uneventfully in the left infraclavicular location. He tolerated the procedure well without complications. I expect the patient will be discharged in the next 24 hours. Thank you for your referral. Please call with questions. Sincerely, JAYCE CAMPOS MD
[2016-05-27 00:03] VITALS: TEMP 98.1
[2016-05-27] MEDS: ceFAZolin 2 GM in SODIUM CHLORIDE 0.9% 100 ML IVPB SCH ×2 (03:21→07:53)
[2016-05-27] MEDS ORDERED: ASPIRIN 325 MG TAB PO ONE (06:00)
--- NOTE | 2016-05-27 07:29 | XR ---
EXAMINATION TYPE: XR chest 2V DATE OF EXAM: 05/27/2016 6:34 AM HISTORY: Shortness of breath. COMPARISON: 05/26/2016 TECHNIQUE: Single view of the chest is submitted. FINDINGS: Demonstrated are scattered senescent parenchymal change. There is no evidence for focal infiltrate. The heart is stable. Hilar and mediastinal structures are within normal limits. Degenerative changes are seen of the dorsal spine. IMPRESSION: 1. Chronic changes without evidence for acute pulmonary disease.
[2016-05-27 07:47] VITALS: BP 146/81; PULSE 65; RESP 18
[2016-05-27] MEDS ORDERED: ASCORBIC ACID 500 MG TAB PO SCH (09:00)
[2016-05-27] MEDS ORDERED: LOSARTAN 50 MG TAB PO SCH (09:00)
[2016-05-27] MEDS ORDERED: ASPIRIN 81 MG CHEW PO SCH (09:00)
[2016-05-27] MEDS ORDERED: ALLOPURINOL 300 MG TAB PO SCH (09:00)
[2016-05-27] MEDS: SODIUM CHLORIDE 0.9% 1,000 ML IV SCH (10:11)
[2016-05-27] MEDS ORDERED: MULTIVITAMINS, THERA 1 EACH TAB PO SCH (12:00)
--- NOTE | 2016-05-27 22:25 | DS ---
DATE OF ADMISSION: 05/26/2016 DATE OF DISCHARGE: 05/27/2016 DIAGNOSIS: Sick sinus syndrome with significant symptomatic bradycardia. PROCEDURES PERFORMED: Single chamber permanent pacemaker from left infraclavicular approach. Mr. Mascorro was brought in electively for a permanent pacemaker. Procedure was performed uneventfully this morning. Chest x-ray is good. Device will be checked shortly. His vital signs are stable. He is resting comfortably without symptoms. Blood pressure is 130/70, pulse rate is about 60 to 70, irregular with chronic atrial fibrillation. S1 and S2 heard normally. Short systolic murmur noted. Lungs are clear. Abdomen and lower extremity exam unchanged. The plan is to discharge him today after the device is checked. I will see him in the office in 1 week. Discharge instructions regarding activity, diet and usage of left upper extremity to be restricted with a sling was advised. The patient will be discharged today.
== END 2016-05-27 11:51 | disposition home or self-care (01) ==
LOC: CATHEP 08:07 → 3OBS 11:25 → CATHEP 05-27 11:51
PROVIDERS: ATTEND Internal Medicine Interventional Cardiology
DX: I49.5 Sick sinus syndrome (principal); I25.10 Atherosclerotic heart disease of native coronary artery without angina pectoris; I48.2 Chronic atrial fibrillation; I48.0 Paroxysmal atrial fibrillation; E78.00 Pure hypercholesterolemia, unspecified; I10 Essential (primary) hypertension; E66.3 Overweight; Z68.25 Body mass index [BMI] 25.0-25.9, adult; Z95.5 Presence of coronary angioplasty implant and graft; Z79.01 Long term (current) use of anticoagulants; Z79.82 Long term (current) use of aspirin; Z79.899 Other long term (current) drug therapy; Z88.8 Allergy status to other drugs, medicaments and biological substances; Z82.49 Family history of ischemic heart disease and other diseases of the circulatory system; Z87.891 Personal history of nicotine dependence
CPT/HCPCS: 33206; 85610; 71010; 71020; C1769; C1898; C1786; J2001; J2250; Q9967; J0690 ×2

== ENCOUNTER 2018-08-22 10:23 | Inpatient (IN) | payer MEDICARE, BC ==
[2018-08-22] MEDS ORDERED: ALBUTEROL NEBULIZED 2.5 MG/3 ML INHALATION STA (11:22)
[2018-08-22] MEDS ORDERED: IPRATROPIUM 0.5 MG/2.5 ML NEBU INHALATION STA (11:22)
[2018-08-22 12:05] LABS: Basophils % (A) 0 %; Eosinophils # (A) 0.4 k/uL (0-0.7); Eosinophils % (A) 5 %; HCT 42.6 % (39.0-53.0); HGB 13.7 gm/dL (13.0-17.5); Lymphocytes # (A) 0.7 k/uL (1.0-4.8); Lymphocytes % (A) 8 %; MCH 31.4 pg (25.0-35.0); MCHC 32.1 g/dL (31.0-37.0); MCV 97.6 fL (80.0-100.0); Mean Platelet Volume 8.6; Monocytes # (A) 0.5 k/uL (0-1.0); Monocytes % (A) 7 %; Neutrophils % (A) 77 %; Platelet Count 125 k/uL (150-450); RBC 4.37 m/uL (4.30-5.90); RDW 14.2 % (11.5-15.5); WBC 7.8 k/uL (3.8-10.6)
[2018-08-22 12:11] LABS: INR 2.5 (<1.2); Partial Thromboplastin Time 37.6 sec (22.0-30.0); Prothrombin Time 24.5 sec (9.0-12.0)
[2018-08-22 12:24] LABS: Albumin 4.1 g/dL (3.5-5.0); Calcium 9.4 mg/dL (8.4-10.2); Potassium 4.2 mmol/L (3.5-5.1); Total Bilirubin 0.9 mg/dL (0.2-1.3); Total Protein 6.5 g/dL (6.3-8.2)
--- NOTE | 2018-08-22 12:24 | XR ---
EXAMINATION TYPE: XR chest 1V portable DATE OF EXAM: 08/22/2018 COMPARISON: 05/27/2016 INDICATION: Short of breath, difficulty breathing TECHNIQUE: Single frontal view of the chest is obtained. FINDINGS: The heart size is moderately enlarged. The pulmonary vasculature is upper limits of normal. There is an infiltrate at the right base. Some tenting of the right diaphragm is noted. Milder infilt rate is at the left base. Blunted left costophrenic angle suggests small effusion IMPRESSION: 1. Bibasilar infiltrates. 2. Small left pleural effusion. 3. Subpulmonic effusion on the right is not excluded.
--- NOTE | 2018-08-22 13:05 | ED ---
SOB HPI - General Chief Complaint: Shortness of Breath Stated Complaint: sob, wheezing Time Seen by Provider: 08/22/18 11:21 Source: patient, RN notes reviewed, old records reviewed Mode of arrival: ambulatory Limitations: no limitations - History of Present Illness Initial Comments: This is a 70-year-old male the ER for evaluation. Said patient resents for evaluation of shortness of breath and hypoxia. Patient was found to be significantly hypoxic. Patient was found to be hypoxic during rehabilitation today. Patient is recent hospital admission for pneumonia. Short of breath is been increasing. Denies any pain. states patient's physical activity is very limited MD Complaint: shortness of breath, cough -: hour(s) Severity: moderate Quality: other (No pain) Worsens With: exertion, movement Known History Of: COPD, recurrent pneumonia Context: recent URI Associated Symptoms: cough - Related Data Home Medications Medication Instructions Recorded Confirmed Allopurinol [Zyloprim] 300 mg PO DAILY 07/21/14 08/22/18 Ascorbic Acid [Vitamin C] 500 mg PO BID 07/21/14 08/22/18 Atorvastatin [Lipitor] 40 mg PO HS 07/21/14 08/22/18 Warfarin [Coumadin] 1 mg PO SUWE 07/21/14 08/22/18 Warfarin [Coumadin] 1.5 mg PO MOTUTHFRSA 07/21/14 08/22/18 Multivitamins, Thera [Multivitamin 1 tab PO DAILY 05/04/16 08/22/18 (formulary)] Aspirin EC [Ecotrin Low Dose] 81 mg PO HS 08/22/18 08/22/18 Loratadine [Claritin] 10 mg PO DAILY 08/22/18 08/22/18 Metoprolol Succinate (ER) [Toprol 25 mg PO DAILY 08/22/18 08/22/18 Xl] Previous Rx's Medication Instructions Recorded Losartan Potassium [Cozaar] 100 mg PO DAILY #30 tab 05/06/16 amLODIPine BESYLATE [Norvasc] 10 mg PO HS #30 tablet 05/06/16 Allergies Allergy/AdvReac Type Severity Reaction Status Date / Time No Known Allergies Allergy Verified 08/22/18 11:14 Review of Systems ROS Statement: Those systems with pertinent positive or pertinent negative responses have been documented in the HPI. ROS Other: All systems not noted in ROS Statement are negative. 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?, Last Myocardial Infarction Date:: 2001 History of Any Multi-Drug Resistant Organisms: None Reported Past Surgical History: Appendectomy, Heart Catheterization With Stent, Orthopedic Surgery Additional Past Surgical History / Comment(s): ORIF rt elbow and wrist, septal occluder for heart valve Past Anesthesia/Blood Transfusion Reactions: Motion Sickness Date of Last Stent Placement:: 10/2012 Past Psychological History: No Psychological Hx Reported Smoking Status: Former smoker Past Alcohol Use History: Rare Past Drug Use History: None Reported - Past Family History Sister(s) Family Medical History: Cancer Father Additional Family Medical History / Comment(s): Father had heart problems. Mother Family Medical History: AFIB Additional Family Medical History / Comment(s): Mother had heart problems. General Exam Limitations: no limitations General appearance: alert, in no apparent distress Head exam: Present: atraumatic, normocephalic, normal inspection Eye exam: Present: normal appearance, PERRL, EOMI. Absent: scleral icterus, conjunctival injection, periorbital swelling ENT exam: Present: normal exam, mucous membranes moist Neck exam: Present: normal inspection. Absent: tenderness, meningismus, lymphadenopathy Respiratory exam: Present: normal lung sounds bilaterally. Absent: respiratory distress, wheezes, rales, rhonchi, stridor Cardiovascular Exam: Present: regular rate, normal rhythm, normal heart sounds. Absent: systolic murmur, diastolic murmur, rubs, gallop, clicks GI/Abdominal exam: Present: soft, normal bowel sounds. Absent: distended, tenderness, guarding, rebound, rigid Extremities exam: Present: normal inspection, full ROM, normal capillary refill. Absent: tenderness, pedal edema, joint swelling, calf tenderness Back exam: Present: normal inspection Neurological exam: Present: alert, oriented X3, CN II-XII intact Psychiatric exam: Present: normal affect, normal mood Skin exam: Present: warm, dry, intact, normal color. Absent: rash Course Vital Signs 08/22/18 08/22/18 08/22/18 10:55 11:56 12:01 Temperature 97.5 F L Pulse Rate 65 60 60 Respiratory 20 14 Rate Blood Pressure 119/64 143/92 O2 Sat by Pulse 93 L 100 Oximetry 08/22/18 08/22/18 08/22/18 12:04 12:30 13:00 Temperature Pulse Rate 60 64 70 Respiratory 18 16 Rate Blood Pressure 139/88 140/89 O2 Sat by Pulse 96 97 Oximetry 08/22/18 08/22/18 08/22/18 13:30 14:00 14:29 Temperature Pulse Rate 62 59 L Respiratory 15 19 20 Rate Blood Pressure 142/92 130/86 O2 Sat by Pulse 97 95 Oximetry 08/22/18 14:31 Temperature 97.2 F L Pulse Rate Respiratory Rate Blood Pressure O2 Sat by Pulse Oximetry - Reevaluation(s) Reevaluation #1: Medical record is reviewed Patient is improved with breathing treatment Medical Decision Making - Medical Decision Making 78 male the ER for evaluation of CHF and pulmonary edema, committed pneumonia. Patient be admitted for treatment of pneumonia - Lab Data Result diagrams: 08/22/18 11:50 08/22/18 11:50 Lab Results 08/22/18 08/22/18 08/22/18 Range/Units 11:50 11:50 11:50 WBC 7.8 (3.8-10.6) k/uL RBC 4.37 (4.30-5.90) m/uL Hgb 13.7 (13.0-17.5) gm/dL Hct 42.6 (39.0-53.0) % MCV 97.6 (80.0-100.0) fL MCH 31.4 (25.0-35.0) pg MCHC 32.1 (31.0-37.0) g/dL RDW 14.2 (11.5-15.5) % Plt Count 125 L (150-450) k/uL Neutrophils % 77 % Lymphocytes % 8 % Monocytes % 7 % Eosinophils % 5 % Basophils % 0 % Neutrophils # 6.0 (1.3-7.7) k/uL Lymphocytes # 0.7 L (1.0-4.8) k/uL Monocytes # 0.5 (0-1.0) k/uL Eosinophils # 0.4 (0-0.7) k/uL Basophils # 0.0 (0-0.2) k/uL PT (9.0-12.0) sec INR (<1.2) APTT (22.0-30.0) sec Sodium 143 (137-145) mmol/L Potassium 4.2 (3.5-5.1) mmol/L Chloride 112 H (98-107) mmol/L Carbon Dioxide 23 (22-30) mmol/L Anion Gap 8 mmol/L BUN 28 H (9-20) mg/dL Creatinine 1.03 (0.66-1.25) mg/dL Est GFR (CKD-EPI)AfAm 80 (>60 ml/min/1.73 sqM) Est GFR (CKD-EPI)NonAf 70 (>60 ml/min/1.73 sqM) Glucose 89 (74-99) mg/dL Calcium 9.4 (8.4-10.2) mg/dL Magnesium 2.0 (1.6-2.3) mg/dL Total Bilirubin 0.9 (0.2-1.3) mg/dL AST 41 (17-59) U/L ALT 35 (21-72) U/L Alkaline Phosphatase 119 (38-126) U/L Troponin I (0.000-0.034) ng/mL NT-Pro-B Natriuret Pep 761 pg/mL Total Protein 6.5 (6.3-8.2) g/dL Albumin 4.1 (3.5-5.0) g/dL 08/22/18 08/22/18 Range/Units 11:50 11:50 WBC (3.8-10.6) k/uL RBC (4.30-5.90) m/uL Hgb (13.0-17.5) gm/dL Hct (39.0-53.0) % MCV (80.0-100.0) fL MCH (25.0-35.0) pg MCHC (31.0-37.0) g/dL RDW (11.5-15.5) % Plt Count (150-450) k/uL Neutrophils % % Lymphocytes % % Monocytes % % Eosinophils % % Basophils % % Neutrophils # (1.3-7.7) k/uL Lymphocytes # (1.0-4.8) k/uL Monocytes # (0-1.0) k/uL Eosinophils # (0-0.7) k/uL Basophils # (0-0.2) k/uL PT 24.5 H (9.0-12.0) sec INR 2.5 H (<1.2) APTT 37.6 H (22.0-30.0) sec Sodium (137-145) mmol/L Potassium (3.5-5.1) mmol/L Chloride (98-107) mmol/L Carbon Dioxide (22-30) mmol/L Anion Gap mmol/L BUN (9-20) mg/dL Creatinine (0.66-1.25) mg/dL Est GFR (CKD-EPI)AfAm (>60 ml/min/1.73 sqM) Est GFR (CKD-EPI)NonAf (>60 ml/min/1.73 sqM) Glucose (74-99) mg/dL Calcium (8.4-10.2) mg/dL Magnesium (1.6-2.3) mg/dL Total Bilirubin (0.2-1.3) mg/dL AST (17-59) U/L ALT (21-72) U/L Alkaline Phosphatase (38-126) U/L Troponin I <0.012 (0.000-0.034) ng/mL NT-Pro-B Natriuret Pep pg/mL Total Protein (6.3-8.2) g/dL Albumin (3.5-5.0) g/dL - EKG Data -: EKG Interpreted by Me (EKG shows paced rhythm 62, QRS 84, QTC 428) - Radiology Data Radiology results: report reviewed (Chest x-ray shows CHF and pneumonia), image reviewed Critical Care Time Critical Care Time: Yes Total Critical Care Time: 31 Disposition Clinical Impression: Chronic a-fib, Community acquired pneumonia, Acute pulmonary edema, Congestive heart failure, Hypoxia Disposition: ADMITTED IP TO THIS HOSP Condition: Fair Is patient prescribed a controlled substance at d/c from ED?: No
[2018-08-22] MEDS ORDERED: PNEUMONIA PROTOCOL UTILIZED 1 EACH MISC PO PRN (13:21)
[2018-08-22] MEDS ORDERED: AZITHROMYCIN 500 MG in SODIUM CHLORIDE 0.9% 250 ML IVPB STA (13:37)
[2018-08-22] MEDS: SODIUM CHLORIDE 0.9% 1,000 ML IV SCH (14:24)
[2018-08-22] MEDS: IPRATROPIUM-ALBUTEROL 3 ML NEB INHALATION SCH ×2 (15:35→20:24)
--- NOTE | 2018-08-22 15:48 | P.HPIM ---
History of Present Illness H&P Date: 08/22/18 Chief Complaint: Worsening shortness of breath This is a 78-year-old male, patient of Dr. Brink. Patient has a known past medical history of chronic atrial fibrillation, coronary disease with previous cardiac stents, PFO status post percutaneous closure, pacemaker placement for bradycardia with syncope, obstructive sleep apnea uses CPAP machine, hypertension and hyperlipidemia. Patient presents to the emergency room with complaints of worsening shortness of breath for the last few days. Also has occasional productive cough. Patient noted that he was more short of breath with walking. It became concerned and came into the ER for further evaluation and treatment. Chest x-ray showing bibasilar infiltrates, small left pleural effusion, subpulmonic effusion on the right is no is not excluded. Patient started on Rocephin and azithromycin for pneumonia. Pulmonary service on consult. We'll check a 2-D echo as well. No evidence of fever. White count normal. Troponin negative. BNP not elevated at 761. Patient denies any history of congestive heart failure. Patient denies any chest pain, he is able to lie flat on his back without shortness of breath. Denies any nausea vomiting bowel movement changes or urinary symptoms. Last month he reports taking prednisone and antibiotics would appears like a bronchitis. And had felt good for a few days. Patient does report a past history of smoking. He reports his nerve been diagnosed with COPD or emphysema. He did notice some wheezing after getting out of the shower. Review of Systems Please refer to HPI otherwise unremarkable Past Medical History Past Medical History: Atrial Fibrillation, Chest Pain / Angina, Hyperlipidemia, Hypertension, Myocardial Infarction ([place]), Osteoarthritis ([place]), Pneumonia, Prostate Disorder, Sleep Apnea/CPAP/BIPAP Additional Past Medical History / Comment(s): SSS with pacer, BPH, benign colon polyps, hemorrhoids, JOSE JUAN with CPap, gout in past in great toes bilaterally, arthritis hands/feet and shoulders Last Myocardial Infarction Date:: 2001 History of Any Multi-Drug Resistant Organisms: None Reported Past Surgical History: Appendectomy, Heart Catheterization With Stent, Orthopedic Surgery, Pacemaker Additional Past Surgical History / Comment(s): ORIF rt elbow and rt wrist as a child, PFO closure in 2012, colonoscopy/benign polypectomy. Past Anesthesia/Blood Transfusion Reactions: No Reported Reaction Date of Last Stent Placement:: 10/2012 Type of Cardiac Device: Permanent Pacemaker Device Placement Date:: 05/26/16 Smoking Status: Former smoker - Past Family History Father Additional Family Medical History / Comment(s): Father had heart problems. Mother Family Medical History: AFIB Additional Family Medical History / Comment(s): Mother had heart problems. Sister(s) Family Medical History: Cancer Medications and Allergies Home Medications Medication Instructions Recorded Confirmed Type Allopurinol [Zyloprim] 300 mg PO DAILY 07/21/14 08/22/18 History Ascorbic Acid [Vitamin C] 500 mg PO BID 07/21/14 08/22/18 History Atorvastatin [Lipitor] 40 mg PO HS 07/21/14 08/22/18 History Warfarin [Coumadin] 1 mg PO SUWE 07/21/14 08/22/18 History Warfarin [Coumadin] 1.5 mg PO MOTUTHFRSA 07/21/14 08/22/18 History Multivitamins, Thera [Multivitamin 1 tab PO DAILY 05/04/16 08/22/18 History (formulary)] Losartan Potassium [Cozaar] 100 mg PO DAILY #30 tab 05/06/16 08/22/18 Rx amLODIPine BESYLATE [Norvasc] 10 mg PO HS #30 tablet 05/06/16 08/22/18 Rx Aspirin EC [Ecotrin Low Dose] 81 mg PO HS 08/22/18 08/22/18 History Loratadine [Claritin] 10 mg PO DAILY 08/22/18 08/22/18 History Metoprolol Succinate (ER) [Toprol 25 mg PO DAILY 08/22/18 08/22/18 History Xl] Allergies Allergy/AdvReac Type Severity Reaction Status Date / Time No Known Allergies Allergy Verified 08/22/18 11:14 Physical Exam Vitals: Vital Signs Temp Pulse Pulse Resp BP BP Pulse Ox 08/22/18 15:35 64 08/22/18 14:59 97.4 F L 63 162/84 92 L 08/22/18 14:31 97.2 F L 08/22/18 14:29 20 08/22/18 14:00 59 L 19 130/86 95 08/22/18 13:30 62 15 142/92 97 08/22/18 13:00 70 16 140/89 97 08/22/18 12:30 64 18 139/88 96 08/22/18 12:04 60 08/22/18 12:01 60 14 143/92 100 08/22/18 11:56 60 08/22/18 10:55 97.5 F L 65 20 119/64 93 L Intake and Output 08/22/18 08/22/18 08/22/18 06:59 14:59 22:59 Other: Weight 80.739 kg Head normocephalic Neck supple Lungs clear to auscultation bilaterally no wheezing or crackles Heart regular rate and rhythm S1-S2, no rub or gallop Abdomen is soft nontender nondistended positive bowel sounds no hepatosplenomegaly Extremities no edema Neuro alert and orientated to 3 Results CBC & Chem 7: 08/22/18 11:50 08/22/18 11:50 Labs: Abnormal Lab Results - Last 24 Hours (Table) 08/22/18 08/22/18 08/22/18 Range/Units 11:50 11:50 11:50 Plt Count 125 L (150-450) k/uL Lymphocytes # 0.7 L (1.0-4.8) k/uL PT 24.5 H (9.0-12.0) sec INR 2.5 H (<1.2) APTT 37.6 H (22.0-30.0) sec Chloride 112 H (98-107) mmol/L BUN 28 H (9-20) mg/dL Thrombosis Risk Factor Assmnt - Choose All That Apply Any of the Below Risk Factors Present?: Yes Each Factor Represents 1 point: Heart failure (<1month), Obesity (BMI >25) Other Risk Factors: Yes Each Risk Factor Represents 3 Points: Age 75 years or older Other congenital or acquired thrombophilia - If yes, enter type in comment: No Thrombosis Risk Factor Assessment Total Risk Factor Score: 5 Thrombosis Risk Factor Assessment Level: High Risk Assessment and Plan Assessment: 1. Pneumonia with bilateral infiltrates noted on chest x-ray. Continue Rocephin and azithromycin. Check sputum culture. Consult pulmonary service. 2. Shortness of breath likely secondary to pneumonia. Consult pulmonary service. Patient does have a past history of smoking. Check 2-D echo 3. History of obstructive sleep apnea continue CPAP machine 4. Chronic atrial fibrillation anticoagulated with Coumadin. INR is therapeutic. Continue home dose of Coumadin area check daily PT/INRs. Coumadin can interact with the azithromycin 5. History of sick sinus syndrome with syncope: Status post pacemaker placement 6. Essential hypertension 7. Hyperlipidemia 8. Coronary artery disease with previous cardiac stents GI prophylaxis Pepcid and DVT prophylaxis Coumadin Time with Patient: Greater than 30 (Greater than 50% of the total time spent in counseling and coordination of care.I performed an examination of the patient and discussed their management with the physician Truck Driver Salesperson. I have reviewed the Physician Truck Driver Salesperson's notes and agree with the documented findings and plan of care)
[2018-08-22] MEDS: WARFARIN 1 MG TAB PO SCH (17:05)
[2018-08-22] MEDS: ATORVASTATIN 40 MG TAB PO SCH (21:21)
[2018-08-22] MEDS: amLODIPine 10 MG TAB PO SCH (21:21)
[2018-08-22] MEDS: ASCORBIC ACID 500 MG TAB PO SCH (21:21)
[2018-08-22] MEDS: ASPIRIN 81 MG PO SCH (21:21)
[2018-08-23] MEDS: IPRATROPIUM-ALBUTEROL 3 ML NEB INHALATION SCH ×4 (07:08→19:42)
[2018-08-23 08:12] LABS: Basophils % (A) 1 %; Eosinophils # (A) 0.5 k/uL (0-0.7); Eosinophils % (A) 8 %; HCT 38.2 % (39.0-53.0); HGB 12.4 gm/dL (13.0-17.5); Lymphocytes # (A) 0.6 k/uL (1.0-4.8); Lymphocytes % (A) 10 %; MCH 31.7 pg (25.0-35.0); MCHC 32.5 g/dL (31.0-37.0); MCV 97.6 fL (80.0-100.0); Mean Platelet Volume 8.5; Monocytes # (A) 0.5 k/uL (0-1.0); Monocytes % (A) 7 %; Neutrophils # (A) 4.7 k/uL (1.3-7.7); Neutrophils % (A) 72 %; Platelet Count 125 k/uL (150-450); RBC 3.91 m/uL (4.30-5.90); RDW 14.7 % (11.5-15.5); WBC 6.5 k/uL (3.8-10.6)
--- NOTE | 2018-08-23 08:16 | XR ---
EXAMINATION TYPE: XR chest 2V DATE OF EXAM: 08/23/2018 COMPARISON: 08/22/2018 HISTORY: Shortness of breath TECHNIQUE: Frontal and lateral views of the chest are obtained. FINDINGS: Scattered senescent parenchymal changes noted. Hyperinflation compatible with COPD. Patchy basilar infiltrates with small effusions remain essentially stable. Heart size is stable. Mediastinal structures are stable and grossly unremarkable. No evidence for hilar prominence. Degenerative changes dorsal spine. IMPRESSION: 1. Patchy basilar infiltrates with small effusions remain essentially stable.
[2018-08-23 08:21] LABS: Albumin 3.3 g/dL (3.5-5.0); Calcium 8.5 mg/dL (8.4-10.2); Potassium 4.3 mmol/L (3.5-5.1); Total Bilirubin 0.8 mg/dL (0.2-1.3); Total Protein 5.4 g/dL (6.3-8.2)
[2018-08-23 08:24] LABS: INR 2.8 (<1.2)
[2018-08-23] MEDS: FAMOTIDINE 20 MG TAB PO SCH (08:52)
[2018-08-23] MEDS: ALLOPURINOL 300 MG TAB PO SCH (08:52)
[2018-08-23] MEDS: ASCORBIC ACID 500 MG TAB PO SCH ×2 (08:52→21:30)
[2018-08-23] MEDS: MULTIVITAMINS, THERA 1 EACH TAB PO SCH (08:52)
[2018-08-23] MEDS: LOSARTAN 50 MG TAB PO SCH (08:52)
[2018-08-23] MEDS: METOPROLOL SUCCINATE (ER) 25 MG TAB.ER.24H PO SCH (08:53)
[2018-08-23] MEDS: LORATADINE 10 MG TAB PO SCH (08:53)
[2018-08-23] MEDS: SODIUM CHLORIDE 0.9% 1,000 ML IV SCH ×3 (08:57→16:13)
--- NOTE | 2018-08-23 10:19 | P.CNPUL ---
History of Present Illness Consult date: 08/23/18 Reason for consult: cough, hypoxemia Chief complaint: Shortness of breath History of present illness: This is a 78-year-old gentleman who presented to the emergency department complaining of shortness of breath and cough. The patient states that his shortness of breath began about a month ago. He states he's gone to his primary care physician and was given antibiotics and steroids which did seem to help for a period of time. However he states that he continues to have wheezing but he thinks is from his nose. He states his breathing got worse over the weekend and he decided, to the hospital. He states normally he is able to walk on a treadmill 1-1/2 miles per day. He states recently he could not even do 1 mile. He denies a history of asthma and COPD. He states 40 years ago he had pneumonia. He does have obstructive sleep apnea and is compliant with his CPAP. He does not have a nebulizer or use any inhalers at home. He states he just uses [id number] nasal spray. He does not use home oxygen. He has a remote history of tobacco use. He quit 40 years ago when he had pneumonia. He used to smoke about 1 pack per day for 14 years. 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 He denies any inhalational exposures. He did spend 6 [place] [employer] [place]. He states he might have ALLERGIES but is never been tested. [place] He does not have any pets in his home at this time however he used to have dogs and cats. The patient's chest x-ray shows bibasilar infiltrates with a small right effusion. 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?, Last Myocardial Infarction Date:: 2001 History of Any Multi-Drug Resistant Organisms: None Reported Past Surgical History: Appendectomy, Heart Catheterization With Stent, Orthopedic Surgery Additional Past Surgical History / Comment(s): ORIF rt elbow and wrist, septal occluder for heart valve Past Anesthesia/Blood Transfusion Reactions: Motion Sickness Date of Last Stent Placement:: 10/2012 Type of Cardiac Device: Permanent Pacemaker Device Placement Date:: 05/26/16 Past Psychological History: No Psychological Hx Reported Smoking Status: Former smoker Past Alcohol Use History: Rare Past Drug Use History: None Reported - Past Family History Father Additional Family Medical History / Comment(s): Father had heart problems. Mother Family Medical History: AFIB Additional Family Medical History / Comment(s): Mother had heart problems. Sister(s) Family Medical History: Cancer Medications and Allergies Home Medications Medication Instructions Recorded Confirmed Type Allopurinol [Zyloprim] 300 mg PO DAILY 07/21/14 08/22/18 History Ascorbic Acid [Vitamin C] 500 mg PO BID 07/21/14 08/22/18 History Atorvastatin [Lipitor] 40 mg PO HS 07/21/14 08/22/18 History Warfarin [Coumadin] 1 mg PO SUWE 07/21/14 08/22/18 History Warfarin [Coumadin] 1.5 mg PO MOTUTHFRSA 07/21/14 08/22/18 History Multivitamins, Thera [Multivitamin 1 tab PO DAILY 05/04/16 08/22/18 History (formulary)] Losartan Potassium [Cozaar] 100 mg PO DAILY #30 tab 05/06/16 08/22/18 Rx amLODIPine BESYLATE [Norvasc] 10 mg PO HS #30 tablet 05/06/16 08/22/18 Rx Aspirin EC [Ecotrin Low Dose] 81 mg PO HS 08/22/18 08/22/18 History Loratadine [Claritin] 10 mg PO DAILY 08/22/18 08/22/18 History Metoprolol Succinate (ER) [Toprol 25 mg PO DAILY 08/22/18 08/22/18 History Xl] Allergies Allergy/AdvReac Type Severity Reaction Status Date / Time No Known Allergies Allergy Verified 08/22/18 11:14 Physical Exam Osteopathic Statement: *. No significant issues noted on an osteopathic structural exam other than those noted in the History and Physical/Consult. Vitals: Vital Signs Temp Pulse Pulse Resp BP BP Pulse Ox 08/23/18 08:50 76 14 08/23/18 07:18 67 08/23/18 07:10 64 08/23/18 07:00 98.4 F 76 14 130/75 93 L 08/23/18 01:23 97.4 F L 63 15 114/74 93 L 08/22/18 20:37 89 08/22/18 20:24 89 94 L 08/22/18 19:32 97.4 F L 65 16 152/85 96 08/22/18 16:00 63 20 08/22/18 15:35 64 08/22/18 14:59 97.4 F L 63 162/84 92 L 08/22/18 14:31 97.2 F L 08/22/18 14:29 20 08/22/18 14:00 59 L 19 130/86 95 08/22/18 13:30 62 15 142/92 97 08/22/18 13:00 70 16 140/89 97 08/22/18 12:30 64 18 139/88 96 08/22/18 12:04 60 08/22/18 12:01 60 14 143/92 100 08/22/18 11:56 60 08/22/18 10:55 97.5 F L 65 20 119/64 93 L Intake and Output 08/22/18 08/23/18 08/23/18 22:59 06:59 14:59 Intake Total 1250 Balance 1250 Intake: Intake, IV Titration 1050 Amount Sodium Chloride 0.9% 1, 1000 000 ml @ 100 mls/hr IV . Q10H PHIL Rx#:[id number] cefTRIAXone 1 gm In 50 Sodium Chloride 0.9% 50 ml @ 100 mls/hr IVPB Q24H PHIL Rx#:[id number] Oral 200 Other: # Voids 1 Gen.: Patient is alert and oriented 3, no acute distress Cardiovascular: Regular rate and rhythm, S1/S2 Lungs: Coarse breath sounds bilaterally, diminished at the bases Abdomen: Soft nontender nondistended positive bowel sounds Extremities: No edema Results - Laboratory Findings CBC and BMP: 08/23/18 07:07 08/23/18 07:07 PT/INR, D-dimer PT 27.0 sec (9.0-12.0) H 08/23/18 07:07 INR 2.8 (<1.2) H 08/23/18 07:07 Abnormal lab findings: Abnormal Labs 08/22/18 08/22/18 08/22/18 11:50 11:50 11:50 RBC Hgb Hct Plt Count 125 L Lymphocytes # 0.7 L PT 24.5 H INR 2.5 H APTT 37.6 H Chloride 112 H BUN 28 H Total Protein Albumin 08/23/18 08/23/18 08/23/18 07:07 07:07 07:07 RBC 3.91 L Hgb 12.4 L Hct 38.2 L Plt Count 125 L Lymphocytes # 0.6 L PT 27.0 H INR 2.8 H APTT Chloride 111 H BUN Total Protein 5.4 L Albumin 3.3 L - Diagnostic Findings Chest x-ray: report reviewed, image reviewed Assessment and Plan Assessment: Acute hypoxic respiratory failure Bibasilar community acquired pneumonia Small right pleural effusion Severe pulmonary hypertension with cor pulmonale, RVSP 58 mmHg Mild thrombocytopenia Chronic atrial fibrillation, s/p PPM History of ASCAD wit stents History of PFO, s/p closure JOSE JUAN, compliant with CPAP Hypertension Dyslipidemia Remote history of tobacco use Seasonal and environmental allergies Mild PCM O2 to maintain saturation greater than or equal to 90% Pulmicort Duonebs Singulair Decrease IVF to 20 cc/hr Check echocardiogram ABX: Rocephin and Azithromycin Steroid taper Check Influenza, Legionella, Mycoplasma Check IgE/HP/allergy panel Sputum culture US chest to assess pleural effusion, patient aware that coumadin will need to be held if effusion is large enough for thora IS and pulmonary hygiene Continue CPAP use nightly and with naps Recommend outpatient evaluation by pulmonary hypertension specialist GI and DVT prophylaxis: Coumadin and Pepcid Thank you for this consultation. We will continue to follow along.
--- NOTE | 2018-08-23 11:29 | US ---
EXAMINATION TYPE: US chest DATE OF EXAM: 08/23/2018 COMPARISON: NONE CLINICAL HISTORY: right pleural effusion, yovani for thoracentesis. Right chest TECHNIQUE: Targeted ultrasound of the posterior lower right hemithorax EXAM MEASUREMENTS: Right Pleural Effusion pocket size: 9.0 cm Right skin surface to fluid distance: 3.1 cm Right side marked for possible thoracentesis outside the dept. Pulmonologists are able to review the images in the patient?s EMR. IMPRESSIONS: Pleural effusions as noted.
--- NOTE | 2018-08-23 11:40 | P.PN ---
Subjective Progress Note Date: 08/23/18 This is a 78-year-old male, patient of Dr. Brink. Patient has a known past medical history of chronic atrial fibrillation, coronary disease with previous cardiac stents, PFO status post percutaneous closure, pacemaker placement for bradycardia with syncope, obstructive sleep apnea uses CPAP machine, hyp ertension and hyperlipidemia. Patient presents to the emergency room with complaints of worsening shortness of breath for the last few days. Also has occasional productive cough. Patient noted that he was more short of breath with walking. It became concerned and came into the ER for further evaluation and treatment. Chest x-ray showing bibasilar infiltrates, small left pleural effusion, subpulmonic effusion on the right is no is not excluded. Patient started on Rocephin and azithromycin for pneumonia. Pulmonary service on consult. We'll check a 2-D echo as well. No evidence of fever. White count normal. Troponin negative. BNP not elevated at 761. Patient denies any history of congestive heart failure. Patient denies any chest pain, he is able to lie flat on his back without shortness of breath. Denies any nausea vomiting bowel movement changes or urinary symptoms. Last month he reports taking prednisone and antibiotics would appears like a bronchitis. And had felt good for a few days. Patient does report a past history of smoking. He reports his nerve been diagnosed with COPD or emphysema. He did notice some wheezing after getting out of the shower. 08/23/2018 patient still having some shortness of breath and cough. Chest x-ray showed patchy bibasilar infiltrate with small effusion which is stable. Patient had a chest ultrasound showing a right pleural effusion of 9 cm. Patient denies any chest pain, nausea or vomiting, bowel movement changes or urinary symptoms. Echo pending Objective - Vital Signs Vital signs: Vital Signs Temp 98.4 F 08/23/18 07:00 Pulse 76 08/23/18 11:25 Resp 14 08/23/18 08:50 BP 130/75 08/23/18 07:00 Pulse Ox 93 L 08/23/18 07:00 Intake & Output 08/22/18 08/23/18 08/23/18 18:59 06:59 18:59 Intake Total 1250 Balance 1250 Weight 80.739 kg Intake: Intake, IV Titration 1050 Amount Sodium Chloride 0.9% 1, 1000 000 ml @ 100 mls/hr IV . Q10H PHIL Rx#:[id number] cefTRIAXone 1 gm In 50 Sodium Chloride 0.9% 50 ml @ 100 mls/hr IVPB Q24H PHIL Rx#:[id number] Oral 200 Other: # Voids 1 - Exam Head normocephalic Neck supple Lungs diminished on the right with a few scattered wheezes Heart regular rate and rhythm S1-S2, no rub or gallop Abdomen is soft nontender nondistended positive bowel sounds no hepatosplenomegaly Extremities no edema Neuro alert and orientated to 3 - Labs CBC & Chem 7: 08/23/18 07:07 08/23/18 07:07 Labs: Abnormal Lab Results - Last 24 Hours (Table) 08/22/18 08/22/18 08/22/18 Range/Units 11:50 11:50 11:50 RBC (4.30-5.90) m/uL Hgb (13.0-17.5) gm/dL Hct (39.0-53.0) % Plt Count 125 L (150-450) k/uL Lymphocytes # 0.7 L (1.0-4.8) k/uL PT 24.5 H (9.0-12.0) sec INR 2.5 H (<1.2) APTT 37.6 H (22.0-30.0) sec Chloride 112 H (98-107) mmol/L BUN 28 H (9-20) mg/dL Total Protein (6.3-8.2) g/dL Albumin (3.5-5.0) g/dL 08/23/18 08/23/18 08/23/18 Range/Units 07:07 07:07 07:07 RBC 3.91 L (4.30-5.90) m/uL Hgb 12.4 L (13.0-17.5) gm/dL Hct 38.2 L (39.0-53.0) % Plt Count 125 L (150-450) k/uL Lymphocytes # 0.6 L (1.0-4.8) k/uL PT 27.0 H (9.0-12.0) sec INR 2.8 H (<1.2) APTT (22.0-30.0) sec Chloride 111 H (98-107) mmol/L BUN (9-20) mg/dL Total Protein 5.4 L (6.3-8.2) g/dL Albumin 3.3 L (3.5-5.0) g/dL Microbiology - Last 24 Hours (Table) 08/22/18 20:28 Gram Stain - Preliminary Sputum Sputum Culture - Preliminary Assessment and Plan Assessment: 1. Pneumonia with bilateral infiltrates noted on chest x-ray. Continue Roce phin and azithromycin. Check sputum culture. Patient seen by pulmonary service 2. Shortness of breath likely secondary to pneumonia and pleural effusion. Consult pulmonary service. Patient does have a past history of smoking. 2-D echo pending 3. History of obstructive sleep apnea continue CPAP machine 4. Chronic atrial fibrillation anticoagulated with Coumadin. INR is therapeutic. Continue home dose of Coumadin area check daily PT/INRs. Coumadin can interact with the azithromycin 5. History of sick sinus syndrome with syncope: Status post pacemaker placement 6. Essential hypertension 7. Hyperlipidemia 8. Coronary artery disease with previous cardiac stents 9. Right pleural effusion: Will await pulmonary recommendations regarding thoracentesis 10. History of PFO status post closure 11. Mild chronic thrombocytopenia dictation monitor 12. History of Severe pulmonary hypertension GI prophylaxis Pepcid and DVT prophylaxis Coumadin I performed an examination of the patient and discussed their management with the physician Leasing Manager. I have reviewed the Physician Leasing Manager's notes and agree with the documented findings and plan of care
[2018-08-23] MEDS: guaiFENesin 600 MG TABLET.ER PO SCH ×2 (11:50→21:30)
[2018-08-23] MEDS: predniSONE 20 MG TAB PO SCH (11:50)
--- NOTE | 2018-08-23 13:23 | ECHOF ---
Referral Reason:check EF MEASUREMENTS -------- HEIGHT: 172.7 cm WEIGHT: 80.7 kg BP: 114/74 RVIDd: 5.5 cm (< 3.3) IVSd: 1.4 cm (0.6 - 1.1) LVIDd: 5.0 cm (3.9 - 5.3) LVPWd: 1.4 cm (0.6 - 1.1) IVSs: 1.9 cm LVIDs: 3.4 cm LVPWs: 1.7 cm LAESV Index (A-L): 55.31 ml/m Ao Diam: 3.0 cm (2.0 - 3.7) AV Cusp: 2.1 cm (1.5 - 2.6) LA Diam: 4.7 cm (2.7 - 3.8) MV EXCURSION: 19.089 mm (> 18.000) MV EF SLOPE: 98 mm/s (70 - 150) EPSS: 0.9 cm MV E Bill: 1.42 m/s MV DecT: 247 ms MV A Bill: 0.76 m/s MV E/A Ratio: 1.88 AR PHT: 211 ms RAP: 20.00 mmHg RVSP: 92.00 mmHg FINDINGS -------- Paced rhythm. This was a technically good study. The left ventricular size is normal. There is moderate concentric left ventricular hypertrophy. O verall left ventricular systolic function is low-normal with, an EF between 50 - 55 %. The right ventricle is severely enlarged. LA is severely dilated >40 ml/m2 The right atrium is moderately enlarged. Interatrial and interventricular septum intact. Aortic valve is trileaflet and is mildly thickened. Trace amount of aortic regurgitation. The mitral valve leaflets are mildly thickened. Moderate mitral regurgitation is present. Severe tricuspid regurgitation present. There is severe pulmonary hypertension. The right ventric ular systolic pressure, as measured by Doppler, more than 65 mm of Hg Trace/mild (physiologic) pulmonic regurgitation. The aortic root size is normal. The inferior vena cava is dilated with no significant inspiratory collapse which is consistent estima geovanni right atrial pressure of >20 mmHg. There is no pericardial effusion. CONCLUSIONS -------- 1. Paced rhythm. 2. This was a technically good study. 3. The left ventricular size is normal. 4. There is moderate concentric left ventricular hypertrophy. 5. Overall left ventricular systolic function is low-normal with, an EF between 50 - 55 %. 6. The right ventricle is severely enlarged. 7. LA is severely dilated >40 ml/m2 8. The right atrium is moderately enlarged. 9. Interatrial and interventricular septum intact. 10. Aortic valve is trileaflet and is mildly thickened. 11. Trace amount of aortic regurgitation. 12. The mitral valve leaflets are mildly thickened. 13. Moderate mitral regurgitation is present. 14. Severe tricuspid regurgitation present. 15. There is severe pulmonary hypertension. 16. The right ventricular systolic pressure, as measured by Doppler, is more than 65 mm of Hg 17. Trace/mild (physiologic) pulmonic regurgitation. 18. The aortic root size is normal. 19. The inferior vena cava is dilated with no significant inspiratory collapse which is consistent es timated right atrial pressure of >20 mmHg. 20. There is no pericardial effusion. [employer] SHOP ATTENDANT: Deanne Reza RDCS
[2018-08-23] MEDS: AZITHROMYCIN 500 MG TAB PO SCH (16:01)
[2018-08-23] MEDS: WARFARIN 1 MG TAB PO SCH (16:13)
[2018-08-23] MEDS: BUDESONIDE 0.5 MG/2 ML NEBU INHALATION SCH (19:42)
[2018-08-23] MEDS: ATORVASTATIN 40 MG TAB PO SCH (21:30)
[2018-08-23] MEDS: amLODIPine 10 MG TAB PO SCH (21:30)
[2018-08-23] MEDS: MONTELUKAST 10 MG TAB PO SCH (21:30)
[2018-08-23] MEDS: ASPIRIN 81 MG PO SCH (21:30)
[2018-08-24 07:29] LABS: Basophils % (A) 0 %; Eosinophils % (A) 0 %; HCT 37.1 % (39.0-53.0); HGB 12.1 gm/dL (13.0-17.5); Lymphocytes # (A) 0.5 k/uL (1.0-4.8); Lymphocytes % (A) 6 %; MCH 31.8 pg (25.0-35.0); MCHC 32.7 g/dL (31.0-37.0); MCV 97.3 fL (80.0-100.0); Mean Platelet Volume 8.7; Monocytes # (A) 0.4 k/uL (0-1.0); Monocytes % (A) 5 %; Neutrophils # (A) 6.3 k/uL (1.3-7.7); Neutrophils % (A) 87 %; Platelet Count 122 k/uL (150-450); RBC 3.82 m/uL (4.30-5.90); RDW 14.7 % (11.5-15.5); WBC 7.3 k/uL (3.8-10.6)
[2018-08-24 07:46] LABS: INR 3.5 (<1.2); Prothrombin Time 33.4 sec (9.0-12.0)
[2018-08-24 07:49] LABS: Calcium 8.7 mg/dL (8.4-10.2); Potassium 4.2 mmol/L (3.5-5.1); Total Bilirubin 0.5 mg/dL (0.2-1.3); Total Protein 5.8 g/dL (6.3-8.2)
[2018-08-24 08:03] LABS: Albumin 3.4 g/dL (3.5-5.0)
[2018-08-24] MEDS: predniSONE 20 MG TAB PO SCH (08:56)
[2018-08-24] MEDS: BUDESONIDE 0.5 MG/2 ML NEBU INHALATION SCH ×2 (08:56→19:39)
[2018-08-24] MEDS: IPRATROPIUM-ALBUTEROL 3 ML NEB INHALATION SCH ×4 (08:56→19:39)
[2018-08-24] MEDS: guaiFENesin 600 MG TABLET.ER PO SCH ×2 (08:56→20:50)
[2018-08-24] MEDS: MULTIVITAMINS, THERA 1 EACH TAB PO SCH (08:57)
[2018-08-24] MEDS: ASCORBIC ACID 500 MG TAB PO SCH ×2 (08:57→20:50)
[2018-08-24] MEDS: METOPROLOL SUCCINATE (ER) 25 MG TAB.ER.24H PO SCH (08:57)
[2018-08-24] MEDS: LOSARTAN 50 MG TAB PO SCH (08:57)
[2018-08-24] MEDS: LORATADINE 10 MG TAB PO SCH (08:57)
[2018-08-24] MEDS: ALLOPURINOL 300 MG TAB PO SCH (08:57)
[2018-08-24] MEDS: FAMOTIDINE 20 MG TAB PO SCH (08:57)
--- NOTE | 2018-08-24 10:02 | PN ---
PROGRESS NOTE He continues to have shortness of breath and feels slightly worse today. He does not bring up any sputum. He has an occasional cough. He has a significant amount of swelling in his feet as well.. PHYSICAL EXAMINATION: His blood pressure is 124/64, respiratory rate of 17, pulse rate of 82, temperature 98.2, O2 sat on 2 L by nasal cannula is 93%. HEENT reveals pupils that are equal. Chest reveals decreased breath sounds in the bases, more decreased on the right than the left. Cardiovascular system reveals an S1, S2. No S3, no S4. There is short systolic murmur. Abdomen is soft. There is 2+ pedal edema. Echocardiogram showed an RV systolic pressure of 92 mmHg with left atrium severely dilated, and an ejection fraction between 50% and 55%. There is mitral regurgitation. LABS: Reveal a white count of 7.3, hemoglobin of 12.1, and he has been afebrile impression at this time. 1. Right greater than left pleural effusion secondary to congestive heart failure. 2. Severe pulmonary hypertension. 3. Obesity. At this point in time, would check a CT scan of the chest, attempt to diurese the patient by starting him on IV Lasix. Continue him on his current medications. Unable to rule out a pneumonia. Would continue antibiotics at this time. He was counseled regarding his condition and this approach. MMPEÑAL / WHITN: [id number] /
--- NOTE | 2018-08-24 12:35 | P.PN ---
Subjective Progress Note Date: 08/24/18 This is a 78-year-old male, patient of Dr. Brink. Patient has a known past medical history of chronic atrial fibrillation, coronary disease with previous cardiac stents, PFO status post percutaneous closure, pacemaker placement for bradycardia with syncope, obstructive sleep apnea uses CPAP machine, hype rtension and hyperlipidemia. Patient presents to the emergency room with complaints of worsening shortness of breath for the last few days. Also has occasional productive cough. Patient noted that he was more short of breath with walking. It became concerned and came into the ER for further evaluation and treatment. Chest x-ray showing bibasilar infiltrates, small left pleural effusion, subpulmonic effusion on the right is no is not excluded. Patient started on Rocephin and azithromycin for pneumonia. Pulmonary service on consult. We'll check a 2-D echo as well. No evidence of fever. White count normal. Troponin negative. BNP not elevated at 761. Patient denies any history of congestive heart failure. Patient denies any chest pain, he is able to lie flat on his back without shortness of breath. Denies any nausea vomiting bowel movement changes or urinary symptoms. Last month he reports taking prednisone and antibiotics would appears like a bronchitis. And had felt good for a few days. Patient does report a past history of smoking. He reports his nerve been diagnosed with COPD or emphysema. He did notice some wheezing after getting out of the shower. 08/23/2018 patient still having some shortness of breath and cough. Chest x-ray showed patchy bibasilar infiltrate with small effusion which is stable. Patient had a chest ultrasound showing a right pleural effusion of 9 cm. Patient denies any chest pain, nausea or vomiting, bowel movement changes or urinary symptoms. Echo pending On 08/24/2018 patient is still having some shortness of breath. Pulmonary services are following. No plans for thoracentesis at this time. Patient denies chest pain. Patient denies nausea or vomiting. Patient denies any urinary burning or frequency Objective - Vital Signs Vital signs: Vital Signs Temp 97.6 F 08/24/18 07:00 Pulse 72 08/24/18 12:21 Resp 20 08/24/18 07:00 BP 143/72 08/24/18 07:00 Pulse Ox 93 L 08/24/18 07:00 Intake & Output 08/23/18 08/24/18 08/24/18 18:59 06:59 18:59 Intake Total 960 Balance 960 Intake: Oral 960 Other: # Voids 2 1 - Exam Head normocephalic Neck supple Lungs diminished on the right with a few scattered wheezes Heart regular rate and rhythm S1-S2, no rub or gallop Abdomen is soft nontender nondistended positive bowel sounds no hepatosplenomegaly Extremities no edema Neuro alert and orientated to 3 - Labs CBC & Chem 7: 08/24/18 06:51 08/24/18 06:51 Labs: Abnormal Lab Results - Last 24 Hours (Table) 08/24/18 08/24/18 08/24/18 Range/Units 06:51 06:51 06:51 RBC 3.82 L (4.30-5.90) m/uL Hgb 12.1 L (13.0-17.5) gm/dL Hct 37.1 L (39.0-53.0) % Plt Count 122 L (150-450) k/uL Lymphocytes # 0.5 L (1.0-4.8) k/uL PT 33.4 H (9.0-12.0) sec INR 3.5 H (<1.2) Chloride 114 H (98-107) mmol/L Carbon Dioxide 20 L (22-30) mmol/L BUN 25 H (9-20) mg/dL Glucose 122 H (74-99) mg/dL Total Protein 5.8 L (6.3-8.2) g/dL Albumin 3.4 L (3.5-5.0) g/dL Microbiology - Last 24 Hours (Table) 08/22/18 14:11 Blood Culture - Preliminary Blood No Growth after 24 hours Assessment and Plan Assessment: 1. Pneumonia with bilateral infiltrates noted on chest x-ray. Continue Rocephin and azithromycin. Check sputum culture. Patient seen by pulmonary service. CT of chest ordered per pulmonary. Lasix 40 mg every 8 hours added per pulmonary 2. Shortness of breath likely secondary to pneumonia and pleural effusion. Consult pulmonary service. Patient does have a past history of smoking. 2-D echo completed showing an EF of 50-55% 3. History of obstructive sleep apnea continue CPAP machine 4. Chronic atrial fibrillation anticoagulated with Coumadin. INR is therapeutic. Continue home dose of Coumadin area check daily PT/INRs. Coumadin can interact with the azithromycin. INR today 3.5. Coumadin to be held for tonight recheck in a.m. 5. History of sick sinus syndrome with syncope: Status post pacemaker placement 6. Essential hypertension 7. Hyperlipidemia 8. Coronary artery disease with previous cardiac stents 9. Right pleural effusion: Will await pulmonary recommendations regarding thoracentesis 10. History of PFO status post closure 11. Mild chronic thrombocytopenia dictation monitor 12. History of Severe pulmonary hypertension GI prophylaxis Pepcid and DVT prophylaxis Coumadin I performed an examination of the patient and discussed their management with the Nurse Practitioner. I have reviewed the Nurse Practitioner's notes and agree with the documented findings and plan of care
--- NOTE | 2018-08-24 15:14 | CT ---
EXAMINATION TYPE: CT chest wo con DATE OF EXAM: 08/24/2018 COMPARISON: None HISTORY: Pleural effusions CT DLP: 355.5 mGycm, Automated exposure control for dose reduction was used. CONTRAST: Performed injected with 0 mL of Isovue 300. TECHNIQUE: Axial images were obtained at 5 mm thick sections. Reconstructed images are reviewed on [employer] computer in the coronal plane. FINDINGS: Portion of the thyroid visualized is normal. Small left and [id number] right pleural effusion is present. Compressive atelectasis is adjace nt, greater on the right. Moderate to dense vascular calcification is in the coronary vessels. There are multiple enlarged aortopulmonic window lymph nodes within the stent. These measure approxim ately 1.1 cm each The ascending aorta diameter at the level of the main pulmonary artery is 4.3 cm. The main pulmonary artery diameter at the bifurcation is 4.[address] sections are obtained through the upper abdomen. Abdomen is essentially unremarkable. IMPRESSIONS: 1. Small left and moderate right pleural effusion. 2. Multiple scattered prominent lymph nodes within the mediastinum.
[2018-08-24] MEDS: FUROSEMIDE 10 MG/ML 4 ML VIAL IV SCH (16:30)
[2018-08-24] MEDS: AZITHROMYCIN 500 MG TAB PO SCH (16:30)
[2018-08-24] MEDS ORDERED: WARFARIN 1 MG TAB PO SCH (18:00)
[2018-08-24] MEDS ORDERED: WARFARIN 0.5 MG TAB PO ONE (18:00)
[2018-08-24] MEDS: SODIUM CHLORIDE 0.9% 1,000 ML IV SCH (20:24)
[2018-08-24] MEDS: MONTELUKAST 10 MG TAB PO SCH (20:50)
[2018-08-24] MEDS: amLODIPine 10 MG TAB PO SCH (20:50)
[2018-08-24] MEDS: ASPIRIN 81 MG PO SCH (20:50)
[2018-08-24] MEDS: ATORVASTATIN 40 MG TAB PO SCH (20:50)
[2018-08-25] MEDS: FUROSEMIDE 10 MG/ML 4 ML VIAL IV SCH ×3 (00:26→15:38)
[2018-08-25] MEDS: MULTIVITAMINS, THERA 1 EACH TAB PO SCH (07:39)
[2018-08-25] MEDS: predniSONE 20 MG TAB PO SCH (07:39)
[2018-08-25] MEDS: ASCORBIC ACID 500 MG TAB PO SCH ×2 (07:39→20:54)
[2018-08-25] MEDS: LOSARTAN 50 MG TAB PO SCH (07:39)
[2018-08-25] MEDS: guaiFENesin 600 MG TABLET.ER PO SCH ×2 (07:39→20:54)
[2018-08-25] MEDS: FAMOTIDINE 20 MG TAB PO SCH (07:40)
[2018-08-25] MEDS: ALLOPURINOL 300 MG TAB PO SCH (07:40)
[2018-08-25] MEDS: LORATADINE 10 MG TAB PO SCH (07:40)
[2018-08-25] MEDS: METOPROLOL SUCCINATE (ER) 25 MG TAB.ER.24H PO SCH (07:40)
[2018-08-25 08:08] LABS: Basophils % (A) 0 %; Eosinophils % (A) 0 %; HCT 37.4 % (39.0-53.0); HGB 12.3 gm/dL (13.0-17.5); Lymphocytes # (A) 0.6 k/uL (1.0-4.8); Lymphocytes % (A) 6 %; MCH 32.3 pg (25.0-35.0); MCHC 32.9 g/dL (31.0-37.0); MCV 98.3 fL (80.0-100.0); Mean Platelet Volume 8.2; Monocytes # (A) 0.5 k/uL (0-1.0); Monocytes % (A) 6 %; Neutrophils # (A) 7.5 k/uL (1.3-7.7); Neutrophils % (A) 85 %; Platelet Count 130 k/uL (150-450); RBC 3.81 m/uL (4.30-5.90); RDW 14.2 % (11.5-15.5); WBC 8.8 k/uL (3.8-10.6)
[2018-08-25 08:18] LABS: Albumin 3.7 g/dL (3.5-5.0); Calcium 8.8 mg/dL (8.4-10.2); Potassium 3.8 mmol/L (3.5-5.1); Total Bilirubin 0.5 mg/dL (0.2-1.3)
[2018-08-25 08:20] LABS: INR 4.4 (<1.2); Prothrombin Time 42.7 sec (9.0-12.0)
[2018-08-25] MEDS: IPRATROPIUM-ALBUTEROL 3 ML NEB INHALATION SCH ×4 (09:15→20:53)
[2018-08-25] MEDS: BUDESONIDE 0.5 MG/2 ML NEBU INHALATION SCH ×2 (09:15→20:53)
--- NOTE | 2018-08-25 11:24 | P.PN ---
Subjective Progress Note Date: 08/25/18 This is a 78-year-old male, patient of Dr. Brink. Patient has a known past medical history of chronic atrial fibrillation, coronary disease with previous cardiac stents, PFO status post percutaneous closure, pacemaker placement for bradycardia with syncope, obstructive sleep apnea uses CPAP machine, hyp ertension and hyperlipidemia. Patient presents to the emergency room with complaints of worsening shortness of breath for the last few days. Also has occasional productive cough. Patient noted that he was more short of breath with walking. It became concerned and came into the ER for further evaluation and treatment. Chest x-ray showing bibasilar infiltrates, small left pleural effusion, subpulmonic effusion on the right is no is not excluded. Patient started on Rocephin and azithromycin for pneumonia. Pulmonary service on consult. We'll check a 2-D echo as well. No evidence of fever. White count normal. Troponin negative. BNP not elevated at 761. Patient denies any history of congestive heart failure. Patient denies any chest pain, he is able to lie flat on his back without shortness of breath. Denies any nausea vomiting bowel movement changes or urinary symptoms. Last month he reports taking prednisone and antibiotics would appears like a bronchitis. And had felt good for a few days. Patient does report a past history of smoking. He reports his nerve been diagnosed with COPD or emphysema. He did notice some wheezing after getting out of the shower. 08/23/2018 patient still having some shortness of breath and cough. Chest x-ray showed patchy bibasilar infiltrate with small effusion which is stable. Patient had a chest ultrasound showing a right pleural effusion of 9 cm. Patient denies any chest pain, nausea or vomiting, bowel movement changes or urinary symptoms. Echo pending On 08/24/2018 patient is still having some shortness of breath. Pulmonary services are following. No plans for thoracentesis at this time. Patient denies chest pain. Patient denies nausea or vomiting. Patient denies any urinary burning or frequency 08/25/2018 patient still complaining of shortness of breath. Still requiring oxygen. Reports short of breath after using the restroom. He had an echo completed showing an EF of 50-55% and severe tricuspid regurgitation. Computed tomography scan of the chest showing a left small pleural effusion and a right moderate pleural effusion and multiple scattered prominent lymph nodes within the mediastinum. Patient was started on IV Lasix yesterday per pulmonary service. Again had history reports really no significant improvement in his shortness of breath. Denies any chest pain. I reports a minimal cough. Denies any nausea or vomiting. Reports that he is urinating more especially after the Lasix. Denies any bowel movement changes. Objective - Vital Signs Vital signs: Vital Signs Temp 97.5 F L 08/25/18 07:00 Pulse 66 08/25/18 09:27 Resp 15 08/25/18 08:00 BP 138/76 08/25/18 07:00 Pulse Ox 93 L 08/25/18 09:15 Intake & Output 08/24/18 08/25/18 08/25/18 18:59 06:59 18:59 Intake Total 1006 160 180 Balance 1006 160 180 Intake: Intake, IV Titration 210 160 Amount Sodium Chloride 0.9% 1, 160 160 000 ml @ 20 mls/hr IV . Q24H [facility] Rx#:[id number] cefTRIAXone 1 gm In 50 Sodium Chloride 0.9% 50 ml @ 100 mls/hr IVPB Q24H [facility] Rx#:[id number] Oral 796 180 Other: # Voids 1 1 - Exam Head normocephalic Neck supple Lungs diminished on the right with a few scattered wheezes on the left Heart irregular rate and rhythm S1-S2, no rub or gallop positive murmur Abdomen is soft nontender nondistended positive bowel sounds no hepatosplenomegaly Extremities +1 edema bilaterally Neuro alert and orientated to 3 - Labs CBC & Chem 7: 08/25/18 07:15 08/25/18 07:15 Labs: Abnormal Lab Results - Last 24 Hours (Table) 08/25/18 08/25/18 08/25/18 Range/Units 07:15 07:15 07:15 RBC 3.81 L (4.30-5.90) m/uL Hgb 12.3 L (13.0-17.5) gm/dL Hct 37.4 L (39.0-53.0) % Plt Count 130 L (150-450) k/uL Lymphocytes # 0.6 L (1.0-4.8) k/uL PT 42.7 H (9.0-12.0) sec INR 4.4 H (<1.2) Chloride 110 H (98-107) mmol/L BUN 28 H (9-20) mg/dL Total Protein 6.0 L (6.3-8.2) g/dL Microbiology - Last 24 Hours (Table) 08/22/18 20:28 Gram Stain - Final Sputum Sputum Culture - Final 08/22/18 14:11 Blood Culture - Preliminary Blood No Growth after 48 hours Assessment and Plan Assessment: 1. Possible Pneumonia with bilateral infiltrates noted on chest x-ray. Michael nue Rocephin and azithromycin. Sputum culture normal respiratory cornelius 2. Acute hypoxic respiratory failure: With Shortness of breath likely secondary to pneumonia and pleural effusion. Patient is currently requiring 2 L nasal cannula. Patient does have a past history of smoking. 3. History of obstructive sleep apnea continue CPAP machine 4. Chronic atrial fibrillation anticoagulated with Coumadin. INR is therapeutic. Continue home dose of Coumadin area check daily PT/INRs. Coumadin can interact with the azithromycin. Elevated INR of 4.4. Pharmacy dosing Coumadin. No Coumadin tonight 5. History of sick sinus syndrome with syncope: Status post pacemaker placement 6. Essential hypertension 7. Hyperlipidemia 8. Coronary artery disease with previous cardiac stents 9. Right pleural effusion: Will await pulmonary recommendations regarding thoracentesis 10. History of PFO status post closure 11. Mild chronic thrombocytopenia continue to monitor 12. History of Severe pulmonary hypertension 13. Bilateral pleural effusions right greater than left likely secondary to acute diastolic congestive heart failure exacerbation. Pulmonary service is following. Patient is currently on IV Lasix 40mg every 8 hours. Awaiting pulmonary recommendations regarding possible thoracentesis. Echo shows an EF of 50-55% and severe tricuspid regurgitation Hep-Lock IV fluids GI prophylaxis Pepcid and DVT prophylaxis Coumadin I performed an examination of the patient and discussed their management with the physician Package Dyeing Machine Operator. I have reviewed the Physician Package Dyeing Machine Operator's notes and agree with the documented findings and plan of care
--- NOTE | 2018-08-25 12:11 | PN ---
PROGRESS NOTE DATE OF SERVICE: 08/25/2018 He is lying flat in bed. He seems less short of breath, but complains of continuing dyspnea with no significant improvement. PHYSICAL EXAMINATION: Blood pressure is 138/76, respiratory rate of 15, pulse rate 67, temperature 97.5, O2 saturation on 2 L by nasal cannula is 92%. HEENT: Unremarkable. Chest with decreased breath sounds, more on the right base than the left. Cardiovascular system reveals an S1, S2. No S3, S4. Abdomen is soft. There is trace to 1+ pedal edema. I and O was reviewed which does not show any weight today. There is no output recorded. However, the patient did say he had copious amounts of urine. IMPRESSION: 1. Bilateral pleural effusion more on the right than the left, likely secondary to congestive heart failure. Chest CT was reviewed which confirms the same. Would continue diuresis. Optimize his fluid status. Consideration is being given for right-sided thoracentesis. Dr. Oleary will be further evaluating the patient later today with discussions with the patient. His prognosis at this time is fair. MMODL / IJN: [id number] /
[2018-08-25 13:34] LABS: Alt. alternata IgE Class CLASS 0; Alternaria alternata IgE <0.35 kU/L (<0.35); Asperg. fumagatus IgE <0.35 kU/L (<0.35); Asperg. fumagatus IgE Class CLASS 0; Bermuda Grass IgE <0.35 kU/L (<0.35); Birch(Com.Silvr) IgE <0.35 kU/L (<0.35); Birch(Com.Silvr) IgE Class CLASS 0; Cat Epith & Dander IgE <0.35 kU/L (<0.35); Cat Epith & Dander IgE Class CLASS 0; Clad herbarum IgE <0.35 kU/L (<0.35); Cockroach IgE <0.35 kU/L (<0.35); Cottonwood IgE <0.35 kU/L (<0.35); Dermato. Pteronyssinus IgE <0.35 kU/L (<0.35); Dermato. farinae IgE <0.35 kU/L (<0.35); Dermato. farinae IgE Class CLASS 0; Dog Dander IgE <0.35 kU/L (<0.35); Elm IgE <0.35 kU/L (<0.35); Maple (Box Elder) IgE <0.35 kU/L (<0.35); Maple (Box Elder) IgE Class CLASS 0; Mountain Cedar IgE <0.35 kU/L (<0.35); Mountain Cedar IgE Class CLASS 0; Mouse Urine IgE Class CLASS 0; Nettle IgE <0.35 kU/L (<0.35); Nettle IgE Class CLASS 0; Oak IgE <0.35 kU/L (<0.35); Penicillium notatum IgE Class CLASS 0; Rough Marshelder IgE <0.35 kU/L (<0.35); Rough Marshelder IgE Class CLASS 0; Timothy Grass IgE <0.35 kU/L (<0.35); White Ash IgE Class CLASS 0
[2018-08-25] MEDS: AZITHROMYCIN 500 MG TAB PO SCH (15:39)
[2018-08-25] MEDS ORDERED: WARFARIN 0.5 MG TAB PO ONE (18:00)
[2018-08-25] MEDS: ATORVASTATIN 40 MG TAB PO SCH (20:53)
[2018-08-25] MEDS: amLODIPine 10 MG TAB PO SCH (20:54)
[2018-08-25] MEDS: MONTELUKAST 10 MG TAB PO SCH (20:54)
[2018-08-25] MEDS: ASPIRIN 81 MG PO SCH (20:54)
[2018-08-26] MEDS: FUROSEMIDE 10 MG/ML 4 ML VIAL IV SCH ×3 (00:15→17:14)
[2018-08-26 07:06] LABS: Mycoplasma IgM Antibody 0.53 INDEX (<=0.90)
[2018-08-26] MEDS: BUDESONIDE 0.5 MG/2 ML NEBU INHALATION SCH ×2 (08:42→20:06)
[2018-08-26] MEDS: IPRATROPIUM-ALBUTEROL 3 ML NEB INHALATION SCH ×4 (08:42→20:06)
[2018-08-26] MEDS: FAMOTIDINE 20 MG TAB PO SCH (09:11)
[2018-08-26] MEDS: ASCORBIC ACID 500 MG TAB PO SCH ×2 (09:11→21:07)
[2018-08-26] MEDS: ALLOPURINOL 300 MG TAB PO SCH (09:11)
[2018-08-26] MEDS: METOPROLOL SUCCINATE (ER) 25 MG TAB.ER.24H PO SCH (09:12)
[2018-08-26] MEDS: LOSARTAN 50 MG TAB PO SCH (09:12)
[2018-08-26] MEDS: guaiFENesin 600 MG TABLET.ER PO SCH ×2 (09:12→21:07)
[2018-08-26] MEDS: LORATADINE 10 MG TAB PO SCH (09:12)
[2018-08-26] MEDS: predniSONE 20 MG TAB PO SCH (09:13)
[2018-08-26 09:52] LABS: Basophils % (A) 0 %; Eosinophils # (A) 0.1 k/uL (0-0.7); Eosinophils % (A) 1 %; HCT 40.6 % (39.0-53.0); HGB 12.8 gm/dL (13.0-17.5); Lymphocytes # (A) 1.1 k/uL (1.0-4.8); Lymphocytes % (A) 11 %; MCH 30.9 pg (25.0-35.0); MCHC 31.6 g/dL (31.0-37.0); MCV 97.8 fL (80.0-100.0); Mean Platelet Volume 8.7; Monocytes # (A) 0.7 k/uL (0-1.0); Monocytes % (A) 7 %; Neutrophils % (A) 80 %; Platelet Count 121 k/uL (150-450); RBC 4.15 m/uL (4.30-5.90); RDW 15.1 % (11.5-15.5)
[2018-08-26 10:03] LABS: INR 3.8 (<1.2); Prothrombin Time 36.8 sec (9.0-12.0)
[2018-08-26 10:08] LABS: Albumin 3.8 g/dL (3.5-5.0); Calcium 8.9 mg/dL (8.4-10.2); Potassium 3.7 mmol/L (3.5-5.1); Total Bilirubin 0.7 mg/dL (0.2-1.3); Total Protein 6.3 g/dL (6.3-8.2)
--- NOTE | 2018-08-26 10:39 | P.CRDCN ---
History of Present Illness History of present illness: This is a pleasant 78-year-old male past medical history significant for sick sinus syndrome status post permanent pacemaker implantation, coronary artery disease status post multivessel PCI, chronic persistent atrial fibrillation on long-term anticoagulation with Coumadin PFO status post closure, hypertension, dyslipidemia and obstructive sleep apnea. He follows in the office with Dr. Diego. We have been asked to see him in consultation secondary to heart failure. He presented to the hospital on August 22 with symptoms of cough and shortness of breath. He states this all started approximately one month ago. He saw his primary care physician one time in the outpatient setting and was being treated for an upper respiratory type illness. He states he exercises daily on his treadmill and usually can do about half per day but slowly over the previous month his exercise tolerance has been getting less and less. The day before coming in he was only able to tolerate the treadmill for approximately 2 minutes and had to stop due to shortness of breath. Chest x-ray on admission revealed bibasilar infiltrates, small left pleural effusion and subpulmonic effusion on the right. Ultrasound of the chest revealed right pleural effusion with the pocket size of approximately [address] of the chest obtained yesterday revealed small left and moderate right pleural effusion with multiple scattered prominent lymph nodes within the mediastinum. He's been followed closely by the pulmonary care and has been started on IV Lasix. Dr. Oleary as will see the patient later today and have a discussion regarding a possible right-sided thoracentesis. Since admission he has been receiving IV antibiotics and states his breathing has not improved at all since admission. He continues to cough but is not bringing up any phlegm. He denies symptoms of chest discomfort, palpitations, nausea, vomiting or diaphoresis. He is seen and examined resting comfortably in bed. Echocardiogram obtained on this admission reveals preserved left ventricular systolic function with ejection fraction 50- 55%, moderate mitral regurgitation, severe tricuspid regurgitation and severe pulmonary hypertension with an RVSP of 65 mmHg. EKG reveals paced rhythm with underlying atrial fibrillation and intraventricular delay. Laboratory data reviewed, WBC 8.8, hemoglobin 12.3, platelets 130, INR 4.4, sodium 142, potassium 3.8, creatinine 1.06, magnesium on admission 2.0, cardiac enzymes negative 1, and T proBNP 761. Current cardiac medications include Toprol 25 mg daily, amlodipine 10 mg daily, losartan 100 mg daily, atorvastatin 40 mg daily, aspirin 81 mg daily and Coumadin. Most recent stress test performed in the office August 2017 revealed no evidence of reversible ischemia. Most recent echocardiogram obtained in the office reveals preserved left ventricular systolic function with ejection fraction 55%, moderate pulmonary hypertension and is stable ASD closure device in place. Most recent cardiac catheterization 2012 revealed in-stent restenosis distal RCA and at that time he underwent stent placement with a drug-eluting stent to the distal RCA. At the time of my exam: CONSTITUTIONAL: Denies fever. Denies chills. EYES: Denies blurred vision. Denies vision changes. Denies eye pain. EARS, NOSE, MOUTH & THROAT: Denies headache. Denies sore throat. Denies ear pain. CARDIOVASCULAR: Denies chest pain. Complains of shortness of breath. Denies orthopnea. Denies PND. Denies palpitations. RESPIRATORY: Complains of cough. GASTROINTESTINAL: Denies abdominal pain. Denies diarrhea. Denies constipation. Denies nausea. Denies vomiting. MUSCULOSKELETAL: Denies myalgias. INTEGUMENTARY: Denies pruitis. Denies rash. NEUROLOGIC: Denies numbness. Denies tingling. Denies weakness. PSYCHIATRIC: Denies anxiety. Denies depression. ENDOCRINE: Denies fatigue. Denies weight change. Denies polydipsia. Denies polyurina. GENITOURINARY: Denies burning, hematuria or urgency with micturation. HEMATOLOGIC: Denies history of anemia. Denies bleeding. Blood pressure 138/76 heart rate 67 afebrile maintaining oxygen saturation on roomair GENERAL: This is a 78-year-old male in no apparent distress at the time of my examination. HEENT: Head is atraumatic, normocephalic. Pupils are equal, round. Sclerae anicteric. Conjunctivae are clear. Mucous membranes of the mouth are moist. Neck is supple. There is no jugular venous distention. No carotid bruit is heard. LUNGS: Diminished to the right base and dull percussion but otherwise clear, left basilar rales, no rhonchi or wheezes. No chest wall tenderness is noted on palpation or with deep breathing. HEART: Irregular rate and rhythm with systolic ejection murmur at the left sternal border, no rubs or gallops. S1 and S2 heard. ABDOMEN: Soft, nontender. Bowel sounds are heard. No organomegaly noted. EXTREMITIES:1+ bilateral lower extremity edema. No calf tenderness noted. VASCULAR: Radial and dorsalis pedis pulses palpated, no evidence of clubbing. NEUROLOGIC: Patient is awake, alert and oriented x3. ASSESSMENT Acute on chronic diastolic heart failure Bilateral pleural effusion Coronary artery disease s/p PCI Sick sinus syndrome s/p permanent pacemaker implantation Chronic persistent atrial fibrillation on half-way anticoaugation Supratherapeutic INR Hypertension Dyslipidemia PLAN Continue IV diuresis. Hold coumadin tonight. Repeat BMP and INR in the morning. Document accurate intake and output along with daily weights. Further recommendations to follow. Thank you kindly for this consultation. Nurse Practitioner note has been reviewed, I agree with a documented findings and plan of care. Patient was seen and examined. 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?, Last Myocardial Infarction Date:: 2001 History of Any Multi-Drug Resistant Organisms: None Reported Past Surgical History: Appendectomy, Heart Catheterization With Stent, Orthopedic Surgery Additional Past Surgical History / Comment(s): ORIF rt elbow and wrist, septal occluder for heart valve Past Anesthesia/Blood Transfusion Reactions: Motion Sickness Date of Last Stent Placement:: 10/2012 Type of Cardiac Device: Permanent Pacemaker Device Placement Date:: 05/26/16 Past Psychological History: No Psychological Hx Reported Smoking Status: Former smoker Past Alcohol Use History: Rare Past Drug Use History: None Reported - Past Family History Father Additional Family Medical History / Comment(s): Father had heart problems. Mother Family Medical History: AFIB Additional Family Medical History / Comment(s): Mother had heart problems. Sister(s) Family Medical History: Cancer Medications and Allergies Home Medications Medication Instructions Recorded Confirmed Type Allopurinol [Zyloprim] 300 mg PO DAILY 07/21/14 08/22/18 History Ascorbic Acid [Vitamin C] 500 mg PO BID 07/21/14 08/22/18 History Atorvastatin [Lipitor] 40 mg PO HS 07/21/14 08/22/18 History Warfarin [Coumadin] 1 mg PO SUWE 07/21/14 08/22/18 History Warfarin [Coumadin] 1.5 mg PO MOTUTHFRSA 07/21/14 08/22/18 History Multivitamins, Thera [Multivitamin 1 tab PO DAILY 05/04/16 08/22/18 History (formulary)] Losartan Potassium [Cozaar] 100 mg PO DAILY #30 tab 05/06/16 08/22/18 Rx amLODIPine BESYLATE [Norvasc] 10 mg PO HS #30 tablet 05/06/16 08/22/18 Rx Aspirin EC [Ecotrin Low Dose] 81 mg PO HS 08/22/18 08/22/18 History Loratadine [Claritin] 10 mg PO DAILY 08/22/18 08/22/18 History Metoprolol Succinate (ER) [Toprol 25 mg PO DAILY 08/22/18 08/22/18 History Xl] Allergies Allergy/AdvReac Type Severity Reaction Status Date / Time No Known Allergies Allergy Verified 08/22/18 11:14 Physical Exam Vitals: Vital Signs Temp Pulse Pulse Resp BP Pulse Ox 08/25/18 12:36 68 08/25/18 12:25 67 08/25/18 09:27 66 08/25/18 09:15 64 93 L 08/25/18 08:00 67 15 08/25/18 07:00 97.5 F L 67 15 138/76 92 L 08/25/18 02:15 97.5 F L 66 19 121/61 98 08/24/18 19:58 70 08/24/18 19:40 72 08/24/18 19:20 97.6 F 74 17 147/82 91 L 08/24/18 16:05 74 08/24/18 15:52 70 94 L 08/24/18 15:00 97.5 F L 66 16 137/80 91 L Intake and Output 08/24/18 08/25/18 08/25/18 22:59 06:59 14:59 Intake Total 456 180 Balance 456 180 Intake: Intake, IV Titration 160 Amount Sodium Chloride 0.9% 1, 160 000 ml @ 20 mls/hr IV . Q24H [facility] Rx#:[id number] Oral 296 180 Other: # Voids 2 1 3 Results 08/26/18 09:24 08/26/18 09:24 Cardiac Enzymes 08/25/18 Range/Units 07:15 AST 31 (17-59) U/L Coagulation 08/25/18 Range/Units 07:15 PT 42.7 H (9.0-12.0) sec CBC 08/25/18 Range/Units 07:15 WBC 8.8 (3.8-10.6) k/uL RBC 3.81 L (4.30-5.90) m/uL Hgb 12.3 L (13.0-17.5) gm/dL Hct 37.4 L (39.0-53.0) % Plt Count 130 L (150-450) k/uL Comprehensive Metabolic Panel 08/25/18 Range/Units 07:15 Sodium 142 (137-145) mmol/L Potassium 3.8 (3.5-5.1) mmol/L Chloride 110 H (98-107) mmol/L Carbon Dioxide 23 (22-30) mmol/L BUN 28 H (9-20) mg/dL Creatinine 1.06 (0.66-1.25) mg/dL Glucose 92 (74-99) mg/dL Calcium 8.8 (8.4-10.2) mg/dL AST 31 (17-59) U/L ALT 32 (21-72) U/L Alkaline Phosphatase 97 (38-126) U/L Total Protein 6.0 L (6.3-8.2) g/dL Albumin 3.7 (3.5-5.0) g/dL Current Medications Generic Name Dose Route Start Last Admin Trade Name Freq PRN Reason Stop Dose Admin Albuterol/Ipratropium 3 ml 08/22/18 16:00 08/25/18 12:25 Duoneb 0.5 Mg-3 Mg/3 Ml Soln INHALATION 3 ml RT-QID [facility] Administration Allopurinol 300 mg 08/23/18 09:00 08/25/18 07:40 Zyloprim PO 300 mg DAILY [facility] Administration Amlodipine Besylate 10 mg 08/22/18 21:00 08/24/18 20:50 Norvasc PO 10 mg HS [facility] Administration Ascorbic Acid 500 mg 08/22/18 21:00 08/25/18 07:39 Vitamin C PO 500 mg BID [facility] Administration Aspirin 81 mg 08/22/18 21:00 08/24/18 20:50 Aspirin PO 81 mg HS [facility] Administration Atorvastatin Calcium 40 mg 08/22/18 21:00 08/24/18 20:50 Lipitor PO 40 mg HS [facility] Administration Azithromycin 500 mg 08/23/18 16:00 08/24/18 16:30 Zithromax PO 500 mg Q24H [facility] Administration Budesonide 0.5 mg 08/23/18 20:00 08/25/18 09:15 Pulmicort INHALATION 0.5 mg RT-BID [facility] Administration Famotidine 20 mg 08/23/18 09:00 08/25/18 07:40 Pepcid PO 20 mg DAILY [facility] Administration Furosemide 40 mg 08/24/18 16:00 08/25/18 07:39 Lasix IV 40 mg Q8HR [facility] Administration Guaifenesin 1,200 mg 08/23/18 10:30 08/25/18 07:39 Mucinex PO 1,200 mg Q12HR [facility] Administration Ceftriaxone Sodium 1 gm/ 50 mls @ 100 mls/hr 08/23/18 16:00 08/24/18 16:31 Sodium Chloride IVPB 100 mls/hr Q24H [facility] Administration Loratadine 10 mg 08/23/18 09:00 08/25/18 07:40 Claritin PO 10 mg DAILY [facility] Administration Losartan Potassium 100 mg 08/23/18 09:00 08/25/18 07:39 Cozaar PO 100 mg DAILY [facility] Administration Metoprolol Succinate 25 mg 08/23/18 09:00 08/25/18 07:40 Toprol Xl PO 25 mg DAILY [facility] Administration Miscellaneous Information 1 each 08/22/18 13:21 Pneumonia Protocol Utilized PO ONCE PRN Per Protocol Miscellaneous Information 0 each 08/22/18 15:43 Coumadin Per Pharmacy MISCELLANE DIRECTED PRN See Comments Montelukast Sodium 10 mg 08/23/18 21:00 08/24/18 20:50 Singulair PO 10 mg HS [facility] Administration Multivitamins 1 each 08/23/18 12:00 08/25/18 07:39 Theragran PO 1 each DAILY@1200 [facility] Administration Prednisone 60 mg 08/23/18 10:30 08/25/18 07:39 PO 60 mg DAILY [facility] Administration Warfarin Sodium 0 mg 08/25/18 18:00 Coumadin PO 08/25/18 18:01 ONCE@1800 ONE Intake and Output 08/24/18 08/25/18 08/25/18 22:59 06:59 14:59 Intake Total 456 180 Balance 456 180 Intake: Intake, IV Titration 160 Amount Sodium Chloride 0.9% 1, 160 000 ml @ 20 mls/hr IV . Q24H [facility] Rx#:[id number] Oral 296 180 Other: # Voids 2 1 3 08/25/18 07:15 08/25/18 07:15
[2018-08-26 11:57] LABS: Alpha 1 Anti-Trypsin 162 mg/dL (90 - 200)
--- NOTE | 2018-08-26 11:58 | P.PN ---
Subjective Progress Note Date: 08/26/18 This is a 78-year-old male, patient of Dr. Brink. Patient has a known past medical history of chronic atrial fibrillation, coronary disease with previous cardiac stents, PFO status post percutaneous closure, pacemaker placement for bradycardia with syncope, obstructive sleep apnea uses CPAP machine, hyp ertension and hyperlipidemia. Patient presents to the emergency room with complaints of worsening shortness of breath for the last few days. Also has occasional productive cough. Patient noted that he was more short of breath with walking. It became concerned and came into the ER for further evaluation and treatment. Chest x-ray showing bibasilar infiltrates, small left pleural effusion, subpulmonic effusion on the right is no is not excluded. Patient started on Rocephin and azithromycin for pneumonia. Pulmonary service on consult. We'll check a 2-D echo as well. No evidence of fever. White count normal. Troponin negative. BNP not elevated at 761. Patient denies any history of congestive heart failure. Patient denies any chest pain, he is able to lie flat on his back without shortness of breath. Denies any nausea vomiting bowel movement changes or urinary symptoms. Last month he reports taking prednisone and antibiotics would appears like a bronchitis. And had felt good for a few days. Patient does report a past history of smoking. He reports his nerve been diagnosed with COPD or emphysema. He did notice some wheezing after getting out of the shower. 08/23/2018 patient still having some shortness of breath and cough. Chest x-ray showed patchy bibasilar infiltrate with small effusion which is stable. Patient had a chest ultrasound showing a right pleural effusion of 9 cm. Patient denies any chest pain, nausea or vomiting, bowel movement changes or urinary symptoms. Echo pending On 08/24/2018 patient is still having some shortness of breath. Pulmonary services are following. No plans for thoracentesis at this time. Patient denies chest pain. Patient denies nausea or vomiting. Patient denies any urinary burning or frequency 08/25/2018 patient still complaining of shortness of breath. Still requiring oxygen. Reports short of breath after using the restroom. He had an echo completed showing an EF of 50-55% and severe tricuspid regurgitation. Computed tomography scan of the chest showing a left small pleural effusion and a right moderate pleural effusion and multiple scattered prominent lymph nodes within the mediastinum. Patient was started on IV Lasix yesterday per pulmonary service. Again had history reports really no significant improvement in his shortness of breath. Denies any chest pain. I reports a minimal cough. Denies any nausea or vomiting. Reports that he is urinating more especially after the Lasix. Denies any bowel movement changes. 08/26/2018 patient is reporting some improvement in his shortness of breath. He was able to ambulate to the bathroom and back without labored breathing. He is remains on the IV Lasix. He was evaluated by cardiology. Sputum culture normal respiratory cornelius. INR is 3.8 Coumadin has been on hold. Patient planning of constipation had a small hard bowel movement this morning. Colace will be added Objective - Vital Signs Vital signs: Vital Signs Temp 97.6 F 08/26/18 07:00 Pulse 68 08/26/18 11:47 Resp 16 08/26/18 08:07 BP 151/69 08/26/18 07:00 Pulse Ox 93 L 08/26/18 08:43 Intake & Output 08/25/18 08/26/18 08/26/18 18:59 06:59 18:59 Intake Total 420 100 Balance 420 100 Intake: Oral 420 100 Other: Voiding Method Toilet Toilet # Voids 3 1 1 # Bowel Movements 1 1 - Exam Head normocephalic Neck supple Lungs diminished on the right with a few scattered wheezes on the left Heart irregular rate and rhythm S1-S2, no rub or gallop positive murmur Abdomen is soft nontender nondistended positive bowel sounds no hepatosplenomegaly Extremities +1 edema bilaterally Neuro alert and orientated to 3 - Labs CBC & Chem 7: 08/26/18 09:24 08/26/18 09:24 Labs: Abnormal Lab Results - Last 24 Hours (Table) 08/26/18 08/26/18 08/26/18 Range/Units 09:24 09:24 09:24 RBC 4.15 L (4.30-5.90) m/uL Hgb 12.8 L (13.0-17.5) gm/dL Plt Count 121 L (150-450) k/uL Neutrophils # 8.0 H (1.3-7.7) k/uL PT 36.8 H (9.0-12.0) sec INR 3.8 H (<1.2) Chloride 110 H (98-107) mmol/L Carbon Dioxide 21 L (22-30) mmol/L BUN 30 H (9-20) mg/dL Glucose 112 H (74-99) mg/dL Microbiology - Last 24 Hours (Table) 08/22/18 14:11 Blood Culture - Preliminary Blood No Growth after 72 hours 08/22/18 20:28 Gram Stain - Final Sputum Sputum Culture - Final Assessment and Plan Assessment: 1. Possible Pneumonia with bilateral infiltrates noted on chest x-ray. Continue Rocephin and azithromycin. Sputum culture normal respiratory cornelius 2. Acute hypoxic respiratory failure: With Shortness of breath likely secondary to pneumonia and pleural effusion. Patient is currently requiring 2 L nasal cannula. Patient does have a past history of smoking. 3. Bilateral pleural effusions right greater than left likely secondary to acute diastolic congestive heart failure exacerbation. Pulmonary service is following. Patient is currently on IV Lasix 40mg every 8 hours. Awaiting pulmonary recommendations regarding possible thoracentesis. Echo shows an EF of 50-55% and severe tricuspid regurgitation. Pulmonary and cardiology are following 4. Chronic atrial fibrillation anticoagulated with Coumadin. INR is therapeutic. Continue home dose of Coumadin area check daily PT/INRs. Coumadin can interact with the azithromycin. Elevated INR of 3.8. Pharmacy dosing Coumadin. No Coumadin tonight 5. History of sick sinus syndrome with syncope: Status post pacemaker placement 6. Essential hypertension 7. Hyperlipidemia 8. Coronary artery disease with previous cardiac stents 9. Right pleural effusion: Will await pulmonary recommendations regarding thoracentesis 10. History of PFO status post closure 11. Mild chronic thrombocytopenia continue to monitor 12. History of Severe pulmonary hypertension 13. History of obstructive sleep apnea continue CPAP machine 14. Constipation add Colace GI prophylaxis Pepcid and DVT prophylaxis Coumadin I performed an examination of the patient and discussed their management with the physician Clerical Dentist Assistant. I have reviewed the Physician Clerical Dentist Assistant's notes and agree with the documented findings and plan of care
--- NOTE | 2018-08-26 12:05 | PN ---
PROGRESS NOTE Von Mascorro was seen on 08/26/2018. The patient has been hemodynamically stable. He is less short of breath. On physical examination, his respiratory rate is 16, pulse rate of 63, temperature 97.6, blood pressure 151/69, O2 sat on room air is 93%. HEENT reveals prominence of his jugular vein. Chest reveals decreased breath sounds in the bases, more decreased in the right than the left. Cardiovascular system reveals an S1, S2. Abdomen is soft. There is 1+ to 2+ pedal edema. I's and O's are inaccurate and he has no weight recorded. IMPRESSION: 1. Bilateral pleural effusions more on the right than the left. 2. Congestive heart failure. Would continue to diurese him. Continue incentive spirometry. Depending how he does we should make further changes to his care. Consideration has been given for right thoracentesis; however, his PT and INR is elevated today. MMODL / IJN: [id number] /
[2018-08-26] MEDS: MULTIVITAMINS, THERA 1 EACH TAB PO SCH (12:22)
--- NOTE | 2018-08-26 14:04 | P.PN ---
Subjective This is a pleasant 78-year-old male past medical history significant for sick sinus syndrome status post permanent pacemaker implantation, coronary artery disease status post multivessel PCI, chronic persistent atrial fibrillation on long-term anticoagulation with Coumadin PFO status post closure, hypertension, dyslipidemia and obstructive sleep apnea. He follows in the office with Dr. Diego. He is seen and examined sitting up in bed in no acute distress. He states he still feels short of breath with exertion but it is finally starting to show some improvement. He continues to denies chest pain, dizziness or palpitations. No plans for thoracentesis at this time. Laboratory data reviewed, WBC 10, hemoglobin 12.8, platelets 121, INR 3.8, sodium 142, potassium 3.7, creatinine 1.05. Blood pressure 151/69 heart rate 63 afebrile maintaining oxygen saturation on room air. GENERAL: This is a 78-year-old male in no apparent distress at the time of my examination. HEENT: Head is atraumatic, normocephalic. Pupils are equal, round. Sclerae anicteric. Conjunctivae are clear. Mucous membranes of the mouth are moist. Neck is supple. There is no jugular venous distention. No carotid bruit is heard. LUNGS: Faint bibasilar rales, scattered wheezes. Diminished bilaterally, worse on the left. No chest wall tenderness is noted on palpation or with deep breathing. HEART: Irregular rate and rhythm with systolic ejection murmur at the left sternal border, no rubs or gallops. S1 and S2 heard. EXTREMITIES:1+ bilateral lower extremity edema. No calf tenderness noted. ASSESSMENT Acute on chronic diastolic heart failure Bilateral pleural effusions, pulmonary is following. 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 Hold coumadin for ongoing elevated INR of 3.8 today. Repeat BMP and INR in the morning. Nurse Practitioner note has been reviewed, I agree with a documented findings and plan of care. Patient was seen and examined. Objective - Vital Signs Vital signs: Vital Signs Temp 97.6 F 08/26/18 07:00 Pulse 70 08/26/18 11:58 Resp 16 08/26/18 08:07 BP 151/69 04/26/19 07:00 Pulse Ox 93 L 08/26/18 08:43 Intake & Output 08/25/18 08/26/18 08/26/18 18:59 06:59 18:59 Intake Total 420 100 Balance 420 100 Intake: Oral 420 100 Other: Voiding Method Toilet Toilet # Voids 3 1 1 # Bowel Movements 1 1 - Labs CBC & Chem 7: 08/26/18 09:24 08/26/18 09:24 Labs: Abnormal Lab Results - Last 24 Hours (Table) 08/26/18 08/26/18 08/26/18 Range/Units 09:24 09:24 09:24 RBC 4.15 L (4.30-5.90) m/uL Hgb 12.8 L (13.0-17.5) gm/dL Plt Count 121 L (150-450) k/uL Neutrophils # 8.0 H (1.3-7.7) k/uL PT 36.8 H (9.0-12.0) sec INR 3.8 H (<1.2) Chloride 110 H (98-107) mmol/L Carbon Dioxide 21 L (22-30) mmol/L BUN 30 H (9-20) mg/dL Glucose 112 H (74-99) mg/dL Microbiology - Last 24 Hours (Table) 08/22/18 14:11 Blood Culture - Preliminary Blood No Growth after 72 hours
[2018-08-26] MEDS ORDERED: WARFARIN 0.5 MG TAB PO ONE (18:00)
[2018-08-26] MEDS: DOCUSATE 100 MG CAP PO SCH (21:00)
[2018-08-26] MEDS: ATORVASTATIN 40 MG TAB PO SCH (21:07)
[2018-08-26] MEDS: MONTELUKAST 10 MG TAB PO SCH (21:07)
[2018-08-26] MEDS: ASPIRIN 81 MG PO SCH (21:08)
[2018-08-26] MEDS: amLODIPine 10 MG TAB PO SCH (21:08)
[2018-08-27] MEDS: FUROSEMIDE 10 MG/ML 4 ML VIAL IV SCH ×4 (00:27→23:20)
[2018-08-27 07:25] LABS: INR 2.9 (<1.2); Prothrombin Time 28.5 sec (9.0-12.0)
[2018-08-27 08:16] LABS: Potassium 3.4 mmol/L (3.5-5.1)
[2018-08-27] MEDS: predniSONE 20 MG TAB PO SCH (08:42)
[2018-08-27] MEDS: DOCUSATE 100 MG CAP PO SCH ×2 (08:43→20:42)
[2018-08-27] MEDS: guaiFENesin 600 MG TABLET.ER PO SCH ×2 (08:43→20:42)
[2018-08-27] MEDS: METOPROLOL SUCCINATE (ER) 25 MG TAB.ER.24H PO SCH (08:43)
[2018-08-27] MEDS: LORATADINE 10 MG TAB PO SCH (08:43)
[2018-08-27] MEDS: ASCORBIC ACID 500 MG TAB PO SCH ×2 (08:43→20:42)
[2018-08-27] MEDS: ALLOPURINOL 300 MG TAB PO SCH (08:43)
[2018-08-27] MEDS: LOSARTAN 50 MG TAB PO SCH (08:44)
[2018-08-27] MEDS: FAMOTIDINE 20 MG TAB PO SCH (08:44)
[2018-08-27] MEDS: IPRATROPIUM-ALBUTEROL 3 ML NEB INHALATION SCH ×4 (08:58→21:02)
[2018-08-27] MEDS: BUDESONIDE 0.5 MG/2 ML NEBU INHALATION SCH ×2 (08:58→21:02)
--- NOTE | 2018-08-27 10:39 | P.PN ---
Subjective Progress Note Date: 08/27/18 This is a pleasant 78-year-old male past medical history significant for sick sinus syndrome status post permanent pacemaker implantation, coronary artery disease status post multivessel PCI, chronic persistent atrial fibrillation on long-term anticoagulation with Coumadin PFO status post closure, hypertension, dyslipidemia and obstructive sleep apnea. He follows in the office with Dr. Diego. Presented to the hospital this admission with complaints of worsening shortness of breath over the last month. He was initially being treated outpatient with antibiotics and steroids which did seem to help for a short time however he continued to have shortness of breath and wheezing as well as developed some lower extremity edema. He has been initiated on IV Lasix. Found to have bilateral pleural effusions right greater than left and was marked for possible thoracentesis however INR has been elevated. Echocardiogram on this admission showed low normal LV systolic function with an ejection fraction between 50-55%, severely enlarged RV, severely dilated LA, moderately enlarged RA, trace aortic regurgitation, moderate mitral regurgitation, severe tricuspid regurgitation and severe pulmonary hypertension with an RVSP of greater than 65 mmHg. Upon examination, patient is resting comfortably in bed. He feels his breathing continues to improve. He has no orthopnea or PND. He does continue to have lower extremity edema which has improved. Laboratory values this morning show an INR of 2.9, potassium 3.4, by mouth and 32 and creatinine 1.19. Objective - Vital Signs Vital signs: Vital Signs Temp 97.5 F L 08/27/18 07:00 Pulse 70 08/27/18 09:12 Resp 17 08/27/18 07:00 BP 129/59 08/27/18 07:00 Pulse Ox 93 L 08/27/18 08:58 Intake & Output 08/26/18 08/27/18 08/27/18 18:59 06:59 18:59 Weight 85.3 kg 82.5 kg Other: Voiding Method Toilet Toilet # Voids 1 # Bowel Movements 1 - Exam PHYSICAL EXAMINATION: HEENT: Head is atraumatic, normocephalic. Pupils equal, round. Neck is supple. There is no elevated jugular venous pressure. HEART EXAMINATION: Heart sounds irregularly irregular, S1 and S2 with a systolic murmur. CHEST EXAMINATION: Lungs reveal diminished air entry bilaterally with crackles right base. No chest wall tenderness is noted on palpation or with deep breathing. ABDOMEN: Soft, nontender. Bowel sounds are heard. No organomegaly noted. EXTREMITIES: 2+ peripheral pulses with evidence of mild to moderate peripheral edema and no calf tenderness noted. NEUROLOGIC patient is awake, alert and oriented x3. . - Labs CBC & Chem 7: 08/26/18 09:24 08/27/18 07:03 Labs: Abnormal Lab Results - Last 24 Hours (Table) 08/26/18 08/27/18 08/27/18 Range/Units 09:24 07:03 07:03 PT 36.8 H 28.5 H (9.0-12.0) sec INR 3.8 H 2.9 H (<1.2) Potassium 3.4 L (3.5-5.1) mmol/L Carbon Dioxide 31 H (22-30) mmol/L BUN 32 H (9-20) mg/dL Microbiology - Last 24 Hours (Table) 08/22/18 14:11 Blood Culture - Preliminary Blood No Growth after 96 hours Assessment and Plan Assessment: #1 acute on chronic diastolic congestive heart failure #2 severe pulmonary hypertension #3 bilateral pleural effusions, pulmonary is following, no plans for thoracentesis at this time, continuing to monitor #4 CAD, status post PCI #5 sick sinus syndrome, status post permanent pacemaker implantation #6 chronic persistent atrial fibrillation on long-term anticoagulation with Coumadin #7 supratherapeutic INR, improving #8 hypertension #9 hyperlipidemia #10 probable COPD Plan: From cardiology perspective, we'll continue IV diuresis for another 24 hours. We'll continue to follow renal function, electrolytes as well as daily weights and intake and output. Supplement potassium. Continue to hold Coumadin and repeat INR in the morning. Further recommendations to follow. ZIGZAG STITCHER note has been reviewed, I agree with a documented findings and plan of care. Patient was seen and examined.
[2018-08-27] MEDS ORDERED: Potassium Replacement Protocol 1 EACH MISC MISCELLANE PRN (10:40)
--- NOTE | 2018-08-27 12:05 | P.PN ---
Subjective Progress Note Date: 08/27/18 This is a 78-year-old male, patient of Dr. Brink. Patient has a known past medical history of chronic atrial fibrillation, coronary disease with previous cardiac stents, PFO status post percutaneous closure, pacemaker placement for bradycardia with syncope, obstructive sleep apnea uses CPAP machine, hyp ertension and hyperlipidemia. Patient presents to the emergency room with complaints of worsening shortness of breath for the last few days. Also has occasional productive cough. Patient noted that he was more short of breath with walking. It became concerned and came into the ER for further evaluation and treatment. Chest x-ray showing bibasilar infiltrates, small left pleural effusion, subpulmonic effusion on the right is no is not excluded. Patient started on Rocephin and azithromycin for pneumonia. Pulmonary service on consult. We'll check a 2-D echo as well. No evidence of fever. White count normal. Troponin negative. BNP not elevated at 761. Patient denies any history of congestive heart failure. Patient denies any chest pain, he is able to lie flat on his back without shortness of breath. Denies any nausea vomiting bowel movement changes or urinary symptoms. Last month he reports taking prednisone and antibiotics would appears like a bronchitis. And had felt good for a few days. Patient does report a past history of smoking. He reports his nerve been diagnosed with COPD or emphysema. He did notice some wheezing after getting out of the shower. 08/23/2018 patient still having some shortness of breath and cough. Chest x-ray showed patchy bibasilar infiltrate with small effusion which is stable. Patient had a chest ultrasound showing a right pleural effusion of 9 cm. Patient denies any chest pain, nausea or vomiting, bowel movement changes or urinary symptoms. Echo pending On 08/24/2018 patient is still having some shortness of breath. Pulmonary services are following. No plans for thoracentesis at this time. Patient denies chest pain. Patient denies nausea or vomiting. Patient denies any urinary burning or frequency 08/25/2018 patient still complaining of shortness of breath. Still requiring oxygen. Reports short of breath after using the restroom. He had an echo completed showing an EF of 50-55% and severe tricuspid regurgitation. Computed tomography scan of the chest showing a left small pleural effusion and a right moderate pleural effusion and multiple scattered prominent lymph nodes within the mediastinum. Patient was started on IV Lasix yesterday per pulmonary service. Again had history reports really no significant improvement in his shortness of breath. Denies any chest pain. I reports a minimal cough. Denies any nausea or vomiting. Reports that he is urinating more especially after the Lasix. Denies any bowel movement changes. 08/26/2018 patient is reporting some improvement in his shortness of breath. He was able to ambulate to the bathroom and back without labored breathing. He is remains on the IV Lasix. He was evaluated by cardiology. Sputum culture normal respiratory cornelius. INR is 3.8 Coumadin has been on hold. Patient planning of constipation had a small hard bowel movement this morning. Colace will be added On 08/27/2018 patient was seen and examined on the medical floor he is alert and oriented 3 he is still complaining of shortness of breath especially with activity otherwise he denies any complaints there is no fever or chills dizziness no chest pain no cough no nausea or vomiting no abdominal pain no diarrhea and no urinary symptoms INR is down to 2.9 Coumadin is still on hold cardiology are following patient is still receiving IV Lasix Objective - Vital Signs Vital signs: Vital Signs Temp 97.5 F L 08/27/18 07:00 Pulse 72 08/27/18 11:44 Resp 17 08/27/18 07:00 BP 129/59 08/27/18 07:00 Pulse Ox 93 L 08/27/18 08:58 Intake & Output 08/26/18 08/27/18 08/27/18 18:59 06:59 18:59 Weight 85.3 kg 82.5 kg Other: Voiding Method Toilet Toilet # Voids 1 # Bowel Movements 1 - Exam Head normocephalic and atraumatic Neck supple no JVD no goiter Lungs diminished on the right with a few scattered wheezes on the left Heart irregular rate and rhythm S1-S2, no rub or gallop positive murmur Abdomen is soft nontender nondistended positive bowel sounds no hepatosplenomegaly Extremities +1 edema bilaterally Neuro alert and orientated to 3 no gross focal deficit - Labs CBC & Chem 7: 08/26/18 09:24 08/27/18 07:03 Labs: Abnormal Lab Results - Last 24 Hours (Table) 08/27/18 08/27/18 Range/Units 07:03 07:03 PT 28.5 H (9.0-12.0) sec INR 2.9 H (<1.2) Potassium 3.4 L (3.5-5.1) mmol/L Carbon Dioxide 31 H (22-30) mmol/L BUN 32 H (9-20) mg/dL Microbiology - Last 24 Hours (Table) 08/22/18 14:11 Blood Culture - Preliminary Blood No Growth after 96 hours Assessment and Plan Plan: 1. Possible Pneumonia with bilateral infiltrates noted on chest x-ray. Continue Rocephin and azithromycin. Sputum culture normal respiratory cornelius 2. Acute hypoxic respiratory failure: With Shortness of breath likely secondary to pneumonia and pleural effusion. Patient is currently requiring 2 L nasal cannula. Patient does have a past history of smoking. 3. Bilateral pleural effusions right greater than left likely secondary to acute diastolic congestive heart failure exacerbation. Pulmonary service is following. Patient is currently on IV Lasix 40mg every 8 hours. Awaiting pulmonary recommendations regarding possible thoracentesis. Echo shows an EF of 50-55% and severe tricuspid regurgitation. Pulmonary and cardiology are fo llowing 4. Chronic atrial fibrillation anticoagulated with Coumadin. INR is therapeutic. Continue home dose of Coumadin area check daily PT/INRs. Coumadin can interact with the azithromycin. Elevated INR of 3.8. Pharmacy dosing Coumadin. No Coumadin tonight 5. History of sick sinus syndrome with syncope: Status post pacemaker placement 6. Essential hypertension 7. Hyperlipidemia 8. Coronary artery disease with previous cardiac stents 9. Right pleural effusion: Will await pulmonary recommendations regarding thoracentesis 10. History of PFO status post closure 11. Mild chronic thrombocytopenia continue to monitor 12. History of Severe pulmonary hypertension 13. History of obstructive sleep apnea continue CPAP machine 14. Constipation add Colace GI prophylaxis Pepcid and DVT prophylaxis Coumadin Patient was seen and examined labs and x-rays reviewed continue current medications will follow in a.m.
[2018-08-27] MEDS: MULTIVITAMINS, THERA 1 EACH TAB PO SCH (13:10)
[2018-08-27] MEDS: POTASSIUM CHLORIDE ER 20 MEQ TAB.ER PO SCH ×2 (13:10→17:29)
--- NOTE | 2018-08-27 13:31 | PN ---
PROGRESS NOTE DATE OF SERVICE: 08/27/2018 He has been hemodynamically stable, he is less short of breath. His IS is up to 1500 at this time. On physical examination, his respiratory rate is 17, pulse rate of 60, temperature 97.5, O2 sat on 3 L by nasal cannula is 92%. HEENT reveals prominent jugular veins. Chest reveals decreased breath sounds in the right base with some decrease in the left. Cardiovascular system reveals an S1, S2. Abdomen is soft. There is 1+ to 2+ pedal edema. PT, INR is 2.9. Sodium 143, potassium 3.4, chloride 107, bicarb 31, BUN 32, creatinine of 1.19. Input and output is inaccurate as there is no output. His weight has gone from 80 kilos to 85.3 kilos down to 82.5 kilos, so it is unclear whether this is accurate as well. IMPRESSION: 1. Congestive heart failure with bilateral pleural effusions, more on the right than the left is likely. 2. Hypokalemia. 3. Coagulopathy. At this point in time, continue to diurese, increase his activity level. May need to repeat a chest x-ray with decubitus views to further assess the volume of his pleural effusion and decide if he would need a thoracentesis versus treatment with optimizing his fluid status. He was counseled regarding his condition and this approach and has a fair understanding of the recommendations. MMODL / IJN: [id number] /
[2018-08-27] MEDS ORDERED: WARFARIN 1 MG TAB PO ONE (18:00)
[2018-08-27] MEDS ORDERED: POTASSIUM CHLORIDE ER 20 MEQ TAB.ER PO SCH (20:00)
[2018-08-27] MEDS: ATORVASTATIN 40 MG TAB PO SCH (20:42)
[2018-08-27] MEDS: MONTELUKAST 10 MG TAB PO SCH (20:42)
[2018-08-27] MEDS: ASPIRIN 81 MG PO SCH (20:42)
[2018-08-27] MEDS: amLODIPine 10 MG TAB PO SCH (20:42)
[2018-08-28 08:16] LABS: Calcium 9.2 mg/dL (8.4-10.2); Potassium 3.6 mmol/L (3.5-5.1)
[2018-08-28 08:22] LABS: INR 2.4 (<1.2); Prothrombin Time 23.2 sec (9.0-12.0)
[2018-08-28] MEDS: FUROSEMIDE 10 MG/ML 4 ML VIAL IV SCH ×2 (08:45→15:29)
[2018-08-28] MEDS: ASCORBIC ACID 500 MG TAB PO SCH ×2 (08:46→20:50)
[2018-08-28] MEDS: LORATADINE 10 MG TAB PO SCH (08:46)
[2018-08-28] MEDS: DOCUSATE 100 MG CAP PO SCH ×2 (08:46→20:50)
[2018-08-28] MEDS: METOPROLOL SUCCINATE (ER) 25 MG TAB.ER.24H PO SCH (08:46)
[2018-08-28] MEDS: MULTIVITAMINS, THERA 1 EACH TAB PO SCH (08:46)
[2018-08-28] MEDS: predniSONE 20 MG TAB PO SCH (08:46)
[2018-08-28] MEDS: LOSARTAN 50 MG TAB PO SCH (08:46)
[2018-08-28] MEDS: FAMOTIDINE 20 MG TAB PO SCH (08:46)
[2018-08-28] MEDS: ALLOPURINOL 300 MG TAB PO SCH (08:46)
[2018-08-28] MEDS: guaiFENesin 600 MG TABLET.ER PO SCH ×2 (08:46→20:50)
[2018-08-28] MEDS: BUDESONIDE 0.5 MG/2 ML NEBU INHALATION SCH ×2 (08:49→20:34)
[2018-08-28] MEDS: IPRATROPIUM-ALBUTEROL 3 ML NEB INHALATION SCH ×4 (08:49→20:34)
--- NOTE | 2018-08-28 11:55 | PN ---
PROGRESS NOTE Mr. Mascorro is a 78-year-old male who presented with symptoms of progressive dyspnea, has history of permanent pacemaker implantation, multivessel coronary artery disease, history of chronic persistent atrial fibrillation. He has a severely enlarged right ventricle and dilated LA with moderate mitral regurgitation and severe tricuspid regurgitation. He is feeling better overall. His breathing is better. He denies any chest pain. He denies any dizziness or palpitation. He has been ambulating. He continues to be at this time on amlodipine 10 mg daily, aspirin 81 mg daily, Lipitor 40 mg daily, Lasix 40 mg IV q.8 hours, losartan 100 mg daily, metoprolol succinate 25 mg daily, potassium, and Coumadin. PHYSICAL EXAMINATION: Blood pressure 140/80 with a heart rate in the 60. LUNGS: A few crackles at the bases. HEART: Irregularly irregular S1, S2. No S3 with systolic murmur. No diastolic murmur. ABDOMEN: Soft, nontender. EXTREMITIES: With 1+ edema. LAB DATA: BUN and creatinine 33 and 1.1, hemoglobin of 2.4. His weight is down 2 kg since yesterday. IMPRESSION: 1. Congestive heart failure with diastolic dysfunction and pulmonary hypertension. 2. History of coronary artery disease. 3. Chronic persistent atrial fibrillation. 4. Status post permanent pacemaker implantation. 5. Hypertension. 6. Hyperlipidemia. RECOMMENDATION: We will continue present therapy. Continue on the IV diuretic for another 24 hours. Follow his renal function. If he is stable, he will be switched to oral diuretics tomorrow and hopefully discharge home soon. In the meantime, we will continue to monitor his weight and depending on his progress, further recommendations will be made. MMODL / IJN: [id number] /
--- NOTE | 2018-08-28 13:00 | XR ---
EXAMINATION TYPE: XR chest 2V DATE OF EXAM: 08/28/2018 HISTORY: pneumonia improvement ?. REFERENCE: Previous study dated 08/23/2018. FINDINGS: There is a unipolar pacemaker in place in the left. The heart is enlarged. There is a worsening opacity of the right lung base. There is a small right ef fusion. This is similar in appearance to the previous study. There may be slightly improved aeration at the right lung base. IMPRESSION: 1. CARDIOMEGALY. 2. SLIGHT IMPROVED AERATION, RIGHT LUNG BASE. 3. RIGHT PLEURAL EFFUSION.
--- NOTE | 2018-08-28 14:03 | P.PN ---
Subjective Progress Note Date: 08/28/18 This is a 78-year-old male, patient of Dr. Brink. Patient has a known past medical history of chronic atrial fibrillation, coronary disease with previous cardiac stents, PFO status post percutaneous closure, pacemaker placement for bradycardia with syncope, obstructive sleep apnea uses CPAP machine, hyp ertension and hyperlipidemia. Patient presents to the emergency room with complaints of worsening shortness of breath for the last few days. Also has occasional productive cough. Patient noted that he was more short of breath with walking. It became concerned and came into the ER for further evaluation and treatment. Chest x-ray showing bibasilar infiltrates, small left pleural effusion, subpulmonic effusion on the right is no is not excluded. Patient started on Rocephin and azithromycin for pneumonia. Pulmonary service on consult. We'll check a 2-D echo as well. No evidence of fever. White count normal. Troponin negative. BNP not elevated at 761. Patient denies any history of congestive heart failure. Patient denies any chest pain, he is able to lie flat on his back without shortness of breath. Denies any nausea vomiting bowel movement changes or urinary symptoms. Last month he reports taking prednisone and antibiotics would appears like a bronchitis. And had felt good for a few days. Patient does report a past history of smoking. He reports his nerve been diagnosed with COPD or emphysema. He did notice some wheezing after getting out of the shower. 08/23/2018 patient still having some shortness of breath and cough. Chest x-ray showed patchy bibasilar infiltrate with small effusion which is stable. Patient had a chest ultrasound showing a right pleural effusion of 9 cm. Patient denies any chest pain, nausea or vomiting, bowel movement changes or urinary symptoms. Echo pending On 08/24/2018 patient is still having some shortness of breath. Pulmonary services are following. No plans for thoracentesis at this time. Patient denies chest pain. Patient denies nausea or vomiting. Patient denies any urinary burning or frequency 08/25/2018 patient still complaining of shortness of breath. Still requiring oxygen. Reports short of breath after using the restroom. He had an echo completed showing an EF of 50-55% and severe tricuspid regurgitation. Computed tomography scan of the chest showing a left small pleural effusion and a right moderate pleural effusion and multiple scattered prominent lymph nodes within the mediastinum. Patient was started on IV Lasix yesterday per pulmonary service. Again had history reports really no significant improvement in his shortness of breath. Denies any chest pain. I reports a minimal cough. Denies any nausea or vomiting. Reports that he is urinating more especially after the Lasix. Denies any bowel movement changes. 08/26/2018 patient is reporting some improvement in his shortness of breath. He was able to ambulate to the bathroom and back without labored breathing. He is remains on the IV Lasix. He was evaluated by cardiology. Sputum culture normal respiratory cornelius. INR is 3.8 Coumadin has been on hold. Patient planning of constipation had a small hard bowel movement this morning. Colace will be added On 08/27/2018 patient was seen and examined on the medical floor he is alert and oriented 3 he is still complaining of shortness of breath especially with activity otherwise he denies any complaints there is no fever or chills dizziness no chest pain no cough no nausea or vomiting no abdominal pain no diarrhea and no urinary symptoms INR is down to 2.9 Coumadin is still on hold cardiology are following patient is still receiving IV Lasix On 08/28/2018 patient was seen and examined on the medical floor he is alert and oriented 3 he is complaining of occasional cough and complaining of shortness of breath with activity otherwise he denies any complaints there is no fever or chills no headache or dizziness no chest pain no nausea or vomiting no abdominal pain no diarrhea and no burning with urination no frequency or urgency INR down to 2.40 was given a dose of Coumadin 1 mg by mouth today Objective - Vital Signs Vital signs: Vital Signs Temp 97.5 F L 08/28/18 07:00 Pulse 75 08/28/18 11:37 Resp 15 08/28/18 07:00 BP 145/88 08/28/18 07:00 Pulse Ox 96 08/28/18 11:31 Intake & Output 08/27/18 08/28/18 08/28/18 18:59 06:59 18:59 Intake Total 420 500 420 Balance 420 500 420 Weight 80.1 kg Intake: Intake, IV Titration 0 Amount cefTRIAXone 1 gm In 0 Sodium Chloride 0.9% 50 ml @ 100 mls/hr IVPB Q24H [facility] Rx#:[id number] Oral 420 500 420 Other: Voiding Method Toilet Toilet # Voids 1 - Exam Head normocephalic and atraumatic Neck supple no JVD no goiter Lungs diminished on the right with a few scattered wheezes on the left Heart irregular rate and rhythm S1-S2, no rub or gallop positive murmur Abdomen is soft nontender nondistended positive bowel sounds no hepatosplenomegaly Extremities +1 edema bilaterally Neuro alert and orientated to 3 no gross focal deficit - Labs CBC & Chem 7: 08/26/18 09:24 08/28/18 07:34 Labs: Abnormal Lab Results - Last 24 Hours (Table) 08/28/18 08/28/18 Range/Units 07:34 07:34 PT 23.2 H (9.0-12.0) sec INR 2.4 H (<1.2) Carbon Dioxide 34 H (22-30) mmol/L BUN 33 H (9-20) mg/dL Microbiology - Last 24 Hours (Table) 08/22/18 14:11 Blood Culture - Preliminary Blood No Growth after 120 hours Assessment and Plan Plan: 1. Possible Pneumonia with bilateral infiltrates noted on chest x-ray. Continue Rocephin and azithromycin. Sputum culture normal respiratory cornelius 2. Acute hypoxic respiratory failure: With Shortness of breath likely secondary to pneumonia and pleural effusion. Patient is currently requiring 2 L nasal cannula. Patient does have a past history of smoking. 3. Bilateral pleural effusions right greater than left likely secondary to acute diastolic congestive heart failure exacerbation. Pulmonary service is following. Patient is currently on IV Lasix 40mg every 8 hours. Awaiting pulmonary recommendations regarding possible thoracentesis. Echo shows an EF of 50-55% and severe tricuspid regurgitation. Pulmonary and cardiology are following 4. Chronic atrial fibrillation anticoagulated with Coumadin. INR is therapeutic. Continue home dose of Coumadin area check daily PT/INRs. Coumadin can interact with the azithromycin. Elevated INR of 3.8. Pharmacy dosing Coumadin. No Coumadin tonight 5. History of sick sinus syndrome with syncope: Status post pacemaker placement 6. Essential hypertension 7. Hyperlipidemia 8. Coronary artery disease with previous cardiac stents 9. Right pleural effusion: Will await pulmonary recommendations regarding thoracentesis 10. History of PFO status post closure 11. Mild chronic thrombocytopenia continue to monitor 12. History of Severe pulmonary hypertension 13. History of obstructive sleep apnea continue CPAP machine 14. Constipation add Colace GI prophylaxis Pepcid and DVT prophylaxis Coumadin Patient was seen and examined labs and x-rays reviewed continue current medications will follow in a.m.
--- NOTE | 2018-08-28 16:43 | PN ---
PROGRESS NOTE He is less short of breath and is starting to walk. He is continuing to lose fluid. On physical examination his blood pressure is 122/70, respiratory rate of 15, pulse rate of 72, temperature 98.6, O2 saturation on room air is 90%. HEENT is unremarkable. CHEST: Reveals decreased breath sounds in the right base. CARDIOVASCULAR SYSTEM: Reveals an S1, S2. No S3, no S4. ABDOMEN: Soft. EXTREMITIES: There is 1+ to 2+ pedal edema. Chest x-ray shows slight improvement right lung base with only a small right pleural effusion and the unipolar pacemaker in place. PT/INR is 2.4. Sodium 143, potassium 3.6, chloride 102, bicarb 34. IMPRESSION: At this time: 1. Congestive heart failure with bilateral pleural effusions more on the right than the left. 2. Coagulopathy. 3. Pulmonary hypertension. At this point in time: From a pulmonary standpoint, continue to keep him in negative fluid balance. Increase activity level. Encourage incentive spirometry. Final decision regarding thoracentesis tomorrow depending on his clinical improvement or lack of improvement. MMODL / IJN: [id number] /
[2018-08-28] MEDS ORDERED: WARFARIN 1 MG TAB PO ONE (18:00)
[2018-08-28] MEDS: ASPIRIN 81 MG PO SCH (20:50)
[2018-08-28] MEDS: amLODIPine 10 MG TAB PO SCH (20:50)
[2018-08-28] MEDS: MONTELUKAST 10 MG TAB PO SCH (20:50)
[2018-08-28] MEDS: ATORVASTATIN 40 MG TAB PO SCH (20:50)
[2018-08-29] MEDS: FUROSEMIDE 10 MG/ML 4 ML VIAL IV SCH ×2 (01:03→07:35)
[2018-08-29] MEDS: LORATADINE 10 MG TAB PO SCH (07:35)
[2018-08-29] MEDS: ALLOPURINOL 300 MG TAB PO SCH (07:35)
[2018-08-29] MEDS: DOCUSATE 100 MG CAP PO SCH (07:35)
[2018-08-29] MEDS: FAMOTIDINE 20 MG TAB PO SCH (07:35)
[2018-08-29] MEDS: ASCORBIC ACID 500 MG TAB PO SCH (07:35)
[2018-08-29] MEDS: guaiFENesin 600 MG TABLET.ER PO SCH (07:35)
[2018-08-29] MEDS: predniSONE 20 MG TAB PO SCH (07:36)
[2018-08-29] MEDS: LOSARTAN 50 MG TAB PO SCH (07:36)
[2018-08-29] MEDS: MULTIVITAMINS, THERA 1 EACH TAB PO SCH (07:36)
[2018-08-29] MEDS: METOPROLOL SUCCINATE (ER) 25 MG TAB.ER.24H PO SCH (07:36)
[2018-08-29 07:57] VITALS: BP 158/81; RESP 16; TEMP 98.2
[2018-08-29 08:05] LABS: Basophils % (A) 0 %; Eosinophils % (A) 0 %; HCT 42.8 % (39.0-53.0); HGB 13.8 gm/dL (13.0-17.5); Lymphocytes # (A) 0.8 k/uL (1.0-4.8); Lymphocytes % (A) 9 %; MCH 30.8 pg (25.0-35.0); MCHC 32.1 g/dL (31.0-37.0); Mean Platelet Volume 8.3; Monocytes # (A) 0.6 k/uL (0-1.0); Monocytes % (A) 7 %; Neutrophils % (A) 82 %; Platelet Count 137 k/uL (150-450); RBC 4.46 m/uL (4.30-5.90); RDW 14.3 % (11.5-15.5); WBC 8.6 k/uL (3.8-10.6)
[2018-08-29 08:06] LABS: Albumin 3.8 g/dL (3.5-5.0); Calcium 9.2 mg/dL (8.4-10.2); Potassium 3.3 mmol/L (3.5-5.1); Total Bilirubin 0.8 mg/dL (0.2-1.3); Total Protein 6.1 g/dL (6.3-8.2)
[2018-08-29 08:10] LABS: Prothrombin Time 19.3 sec (9.0-12.0)
[2018-08-29] MEDS: IPRATROPIUM-ALBUTEROL 3 ML NEB INHALATION SCH ×2 (08:13→11:43)
[2018-08-29] MEDS: BUDESONIDE 0.5 MG/2 ML NEBU INHALATION SCH (08:13)
[2018-08-29 08:38] VITALS: PULSE 72
[2018-08-29] MEDS ORDERED: POTASSIUM CHLORIDE ER 20 MEQ TAB.ER PO STA (10:18)
[2018-08-29 13:15] VITALS: BMI 26.8
--- NOTE | 2018-08-29 14:16 | P.DS ---
Providers Date of admission: 08/22/18 13:21 Expected date of discharge: 08/29/18 Attending physician: Louis Mondragon Consults: 08/22/18 15:40 Consult Physician Routine Consulting Provider: Princess Oleary Consult Reason/Comments: pneumonia Do you want consulting provider notified?: Yes 08/25/18 12:49 Consult Physician Routine Consulting Provider: Mohsen Mckeon Consult Reason/Comments: CHF exacerbation Do you want consulting provider notified?: Yes Primary care physician: Christin Brink Hospital Course: Discharge Diagnosis 1. Possible Pneumonia with bilateral infiltrates noted on chest x-ray. Sputum culture normal respiratory cornelius. Continue Ceftin for 3 more days 2. Acute hypoxic respiratory failure: With Shortness of breath likely secondary to pneumonia and pleural effusion. 3. Bilateral pleural effusions right greater than left likely secondary to acute diastolic congestive heart failure exacerbation. Echo shows an EF of 50- 55% and severe tricuspid regurgitation. Pulmonary and cardiology are following. Patient treated with IV Lasix will be switched over to Lasix 40 mg twice a day at home. Patient has been cleared by cardiology and pulmonary service for discharge. No need for thoracentesis. 4. Chronic atrial fibrillation anticoagulated with Coumadin. INR is therapeutic at discharge 5. History of sick sinus syndrome with syncope: Status post pacemaker placement 6. Essential hypertension 7. Hyperlipidemia 8. Coronary artery disease with previous cardiac stents 9. Right pleural effusion: Improved with diuretics 10. History of PFO status post closure 11. Mild chronic thrombocytopenia continue to monitor 12. History of Severe pulmonary hypertension 13. History of obstructive sleep apnea continue CPAP machine 14. Constipation resolved with Colace Hospital course This is a 78-year-old male, patient of Dr. Brink. Patient has a known past medical history of chronic atrial fibrillation, coronary disease with previous cardiac stents, PFO status post percutaneous closure, pacemaker placement for bradycardia with syncope, obstructive sleep apnea uses CPAP machine, hypertension and hyperlipidemia. Patient presents to the emergency room with complaints of worsening shortness of breath for the last few days. Also has occasional productive cough. Patient noted that he was more short of breath with walking. It became concerned and came into the ER for further evaluation and treatment. Chest x-ray showing bibasilar infiltrates, small left pleural effusion, subpulmonic effusion on the right is no is not excluded. Patient started on Rocephin and azithromycin for pneumonia. Pulmonary service on consult. We'll check a 2-D echo as well. No evidence of fever. White count normal. Troponin negative. BNP not elevated at 761. Patient denies any history of congestive heart failure. Patient denies any chest pain, he is able to lie flat on his back without shortness of breath. Denies any nausea vomiting bowel movement changes or urinary symptoms. Last month he reports taking prednisone and antibiotics would appears like a bronchitis. And had felt good for a few days. Patient does report a past history of smoking. He reports his nerve been diagnosed with COPD or emphysema. He did notice some wheezing after getting out of the shower. 08/23/2018 patient still having some shortness of breath and cough. Chest x-ray showed patchy bibasilar infiltrate with small effusion which is stable. Patient had a chest ultrasound showing a right pleural effusion of 9 cm. Patient denies any chest pain, nausea or vomiting, bowel movement changes or urinary symptoms. Echo pending On 08/24/2018 patient is still having some shortness of breath. Pulmonary services are following. No plans for thoracentesis at this time. Patient denies chest pain. Patient denies nausea or vomiting. Patient denies any urinary burning or frequency 08/25/2018 patient still complaining of shortness of breath. Still requiring oxygen. Reports short of breath after using the restroom. He had an echo completed showing an EF of 50-55% and severe tricuspid regurgitation. Computed tomography scan of the chest showing a left small pleural effusion and a right moderate pleural effusion and multiple scattered prominent lymph nodes within the mediastinum. Patient was started on IV Lasix yesterday per pulmonary service. Again had history reports really no significant improvement in his shortness of breath. Denies any chest pain. I reports a minimal cough. Denies any nausea or vomiting. Reports that he is urinating more especially after the Lasix. Denies any bowel movement changes. 08/26/2018 patient is reporting some improvement in his shortness of breath. He was able to ambulate to the bathroom and back without labored breathing. He is remains on the IV Lasix. He was evaluated by cardiology. Sputum culture normal respiratory cornelius. INR is 3.8 Coumadin has been on hold. Patient planning of constipation had a small hard bowel movement this morning. Colace will be added On 08/27/2018 patient was seen and examined on the medical floor he is alert and oriented 3 he is still complaining of shortness of breath especially with activity otherwise he denies any complaints there is no fever or chills dizziness no chest pain no cough no nausea or vomiting no abdominal pain no d iarrhea and no urinary symptoms INR is down to 2.9 Coumadin is still on hold cardiology are following patient is still receiving IV Lasix On 08/28/2018 patient was seen and examined on the medical floor he is alert and oriented 3 he is complaining of occasional cough and complaining of shortness of breath with activity otherwise he denies any complaints there is no fever or chills no headache or dizziness no chest pain no nausea or vomiting no abdominal pain no diarrhea and no burning with urination no frequency or urgency INR down to 2.40 was given a dose of Coumadin 1 mg by mouth today 08/29/2018 patient has been cleared by both cardiology and pulmonary services for discharge. Patient did not require thoracentesis during this admission. He was treated with IV diuretics Lasix 40 mg IV every 8 hours. Patient's shortness of breath improved. No longer requiring oxygen. There is concerns still for a possible pneumonia he'll continue 3 more days of Ceftin to complete a ten-day treatment for pneumonia. Also will continue a prednisone taper as well. Sputum culture was normal respiratory cornelius. Potassium at discharge was 3.3 he received K-Dur 20 prior to discharge. And will continue with the K-Dur 20 milliequivalents twice a day since she'll be on Lasix 40 mg twice a day. Patient will follow-up with both cardiology and pulmonary service in the office. He'll follow up with cardiology, Dr. KAYLYN Diego in [address] Oleary in 1 week. Patient is medical stable for discharge. Please refer to chart for any further details. Recommend checking CBC and BMP in 3 days I performed an examination of the patient and discussed their management with the physician Fine Arts Instructor. I have reviewed the Physician Fine Arts Instructor's notes and agree with the documented findings and plan of care Patient Condition at Discharge: Stable Plan - Discharge Summary Discharge Rx Participant: No New Discharge Prescriptions: New Cefuroxime Axetil [Ceftin] 500 mg PO BID 3 Days #6 tab Furosemide [Lasix] 40 mg PO BID #60 tablet predniSONE 10 mg PO DIRECTED #20 tab Potassium Chloride ER [K-Dur 20] 20 meq PO BID #60 tab Continue Warfarin [Coumadin] 1.5 mg PO MOTUTHFRSA Warfarin [Coumadin] 1 mg PO SUWE Atorvastatin [Lipitor] 40 mg PO HS Ascorbic Acid [Vitamin C] 500 mg PO BID Allopurinol [Zyloprim] 300 mg PO DAILY Multivitamins, Thera [Multivitamin (formulary)] 1 tab PO DAILY Losartan Potassium [Cozaar] 100 mg PO DAILY #30 tab amLODIPine BESYLATE [Norvasc] 10 mg PO HS #30 tablet Metoprolol Succinate (ER) [Toprol XL] 25 mg PO DAILY Loratadine [Claritin] 10 mg PO DAILY Aspirin EC [Ecotrin Low Dose] 81 mg PO HS Discharge Medication List Allopurinol [Zyloprim] 300 mg PO DAILY 07/21/14 [History] Ascorbic Acid [Vitamin C] 500 mg PO BID 07/21/14 [History] Atorvastatin [Lipitor] 40 mg PO HS 07/21/14 [History] Warfarin [Coumadin] 1 mg PO SUWE 07/21/14 [History] Warfarin [Coumadin] 1.5 mg PO MOTUTHFRSA 07/21/14 [History] Multivitamins, Thera [Multivitamin (formulary)] 1 tab PO DAILY 05/04/16 [History] Losartan Potassium [Cozaar] 100 mg PO DAILY #30 tab 05/06/16 [Rx] amLODIPine BESYLATE [Norvasc] 10 mg PO HS #30 tablet 05/06/16 [Rx] Aspirin EC [Ecotrin Low Dose] 81 mg PO HS 08/22/18 [History] Loratadine [Claritin] 10 mg PO DAILY 08/22/18 [History] Metoprolol Succinate (ER) [Toprol XL] 25 mg PO DAILY 08/22/18 [History] Cefuroxime Axetil [Ceftin] 500 mg PO BID 3 Days #6 tab 08/29/18 [Rx] Furosemide [Lasix] 40 mg PO BID #60 tablet 08/29/18 [Rx] Potassium Chloride ER [K-Dur 20] 20 meq PO BID #60 tab 08/29/18 [Rx] predniSONE 10 mg PO DIRECTED #20 tab 08/29/18 [Rx] Follow up Appointment(s)/Referral(s): Radha Diego MD [STAFF PHYSICIAN] - 2 Weeks (Carotid doppler September 09 @ 0830 Office will call with your [address] Diego. ) Christin Brink MD [Primary Care Provider] - 1 Week Princess Oleary DO [Doctor of Osteopathic Medicine] - 1 Week Ambulatory/Diagnostic Orders: Basic Metabolic Panel [LAB.AMB] Time Frame: 3 Days, Location: None Selected Activity/Diet/Wound Care/Special Instructions: Diet: cardiac Activity: as tolerated Discharge Disposition: HOME SELF-CARE
--- NOTE | 2018-08-29 15:29 | P.PN ---
Subjective This is a pleasant 78-year-old male past medical history significant for sick sinus syndrome status post permanent pacemaker implantation, coronary artery disease status post multivessel PCI, chronic persistent atrial fibrillation on long-term anticoagulation with Coumadin PFO status post closure, hypertension, dyslipidemia and obstructive sleep apnea. He follows in the office with Dr. Diego. He is seen and examined sitting up in bed in no acute distress with his at the bedside. He states he has been getting up and walking with no significant shortness of breath. His lungs sound much better on exam. He continues to have lower extremity edema that is slightly improved. Blood pressure 158/81 heart rate 66 afebrile maintaining oxygen saturation on room air. Laboratory data reviewed, WBC 8.6, hemoglobin 13.8, platelets 137, INR 2.0, sodium 141, potassium 3.3, creatinine 1.03. Repeat chest x-ray this morning shows slight improvement in the aeration of the right lung base with a persistent right pleural effusion. GENERAL: This is a 78-year-old male in no apparent distress at the time of my examination. HEENT: Head is atraumatic, normocephalic. Pupils are equal, round. Sclerae anicteric. Conjunctivae are clear. Mucous membranes of the mouth are moist. Neck is supple. There is no jugular venous distention. No carotid bruit is heard. LUNGS: Clear to auscultation bilaterally. Diminished bilaterally. No chest wall tenderness is noted on palpation or with deep breathing. HEART: Irregular rate and rhythm with systolic ejection murmur at the left sternal border, no rubs or gallops. S1 and S2 heard. EXTREMITIES: 1+ bilateral lower extremity edema. No calf tenderness noted. ASSESSMENT Acute on chronic diastolic heart failure, improved Bilateral pleural effusions, pulmonary is following. No plans for thoracentesis Coronary artery disease s/p PCI Sick sinus syndrome s/p permanent pacemaker implantation Chronic persistent atrial fibrillation on oysterman anticoaugation Supratherapeutic INR Hypertension Dyslipidemia PLAN Overall stable from a cardiac perspective. He may be discharged home on Lasix 40 mg by mouth twice a day along with daily potassium supplementation. Follow- up appointment will be made to see Dr. Diego in the office in 2 weeks. Request bilateral SUMI chonge knee-high. Nurse Practitioner note has been reviewed, I agree with a documented findings and plan of care. Patient was seen and examined. Objective - Vital Signs Vital signs: Vital Signs Temp 98.2 F 08/29/18 07:00 Pulse 72 08/29/18 11:54 Resp 16 08/29/18 07:00 BP 158/81 08/29/18 07:00 Pulse Ox 92 L 08/29/18 07:00 Intake & Output 08/28/18 08/29/18 08/29/18 18:59 06:59 18:59 Intake Total 810 150 Balance 810 150 Weight 80 kg 80 kg Intake: Oral 810 150 Other: Voiding Method Toilet Toilet # Voids 2 - Labs CBC & Chem 7: 08/29/18 07:25 08/29/18 07:25 Labs: Abnormal Lab Results - Last 24 Hours (Table) 08/29/18 08/29/18 08/29/18 Range/Units 07:25 07:25 07:25 Plt Count 137 L (150-450) k/uL Lymphocytes # 0.8 L (1.0-4.8) k/uL PT 19.3 H (9.0-12.0) sec INR 2.0 H (<1.2) Potassium 3.3 L (3.5-5.1) mmol/L Carbon Dioxide 35 H (22-30) mmol/L BUN 31 H (9-20) mg/dL Total Protein 6.1 L (6.3-8.2) g/dL Microbiology - Last 24 Hours (Table) 08/22/18 14:11 Blood Culture - Final Blood No Growth after 144 hours
--- NOTE | 2018-08-29 17:32 | PN ---
PROGRESS NOTE He is less short of breath. His IS is almost up to 2000. On physical examination, he is lying in bed. His respiratory rate is 16, pulse rate of 66, temperature 98.2, blood pressure 158/81, O2 saturation on room air is 92%. HEENT is unremarkable. CHEST reveals decreased breath sounds on the right base. CARDIOVASCULAR SYSTEM reveals S1, S2. ABDOMEN is soft. EXTREMITIES: There is trace to 1+ pedal edema. LABORATORY DATA: White count is 8.6, hemoglobin 13.8. PT/INR of 2. Sodium 141, potassium 3.3, chloride 99, bicarb 35, BUN 31, creatinine 1.03. Chest x-ray shows some improvement in the right-sided effusion. I's by O's shows that his weight is at least down to 80 kilos. Actual input and output seems inaccurate. IMPRESSION: At this time is: 1. Bilateral pleural effusion more on the right than the left secondary to congestive heart failure is likely. 2. Congestive heart failure. 3. Cor pulmonale. 4. Hypertension. 5. Coronary artery disease. 6. Possible pneumonia. Continue to optimize his fluid status. Increase his activity level. Measure daily weights on him which can be done in the outpatient setting as well. Continue with possible discharge planning on him at this time. MMODL / IJN: [id number] /
[2018-08-29] MEDS ORDERED: WARFARIN 1.5 MG TAB PO ONE (18:00)
[2018-08-29 22:14] LABS: Alternaria Alternata IgG 2.4 mcg/mL (< 13.6); Aspergillus fumigatus IgG Not detected (Not detected); Aureobasidium pullulans IgG <2.0 mcg/mL (< 13.6); Cladosporium herbarium IgG 5.7 mcg/mL (< 14.7); Phoma ssp. IgG <2.0 mcg/mL (< 6.6); Saccaharomospora viridis Not detected (Not detected); Saccaharopoly. rectivirgula Not detected (Not detected)
[2018-08-30] MEDS ORDERED: CEFDINIR 300 MG CAP PO SCH (09:00)
== END 2018-08-29 15:20 | disposition home or self-care (01) | DRG 193 ==
LOC: EC 10:23 → 4SSUR 13:21
PROVIDERS: ADMIT Internal Medicine; ATTEND Internal Medicine
DX: J18.9 Pneumonia, unspecified organism (principal); J96.01 Acute respiratory failure with hypoxia; I50.33 Acute on chronic diastolic (congestive) heart failure; I48.1 Persistent atrial fibrillation; D68.9 Coagulation defect, unspecified; J44.0 Chronic obstructive pulmonary disease with (acute) lower respiratory infection; E44.1 Mild protein-calorie malnutrition; I48.2 Chronic atrial fibrillation; I11.0 Hypertensive heart disease with heart failure; I27.81 Cor pulmonale (chronic); I27.29 Other secondary pulmonary hypertension; D69.6 Thrombocytopenia, unspecified; I08.1 Rheumatic disorders of both mitral and tricuspid valves; G40.909 Epilepsy, unspecified, not intractable, without status epilepticus; G47.33 Obstructive sleep apnea (adult) (pediatric); E78.5 Hyperlipidemia, unspecified; M10.9 Gout, unspecified; I25.2 Old myocardial infarction; M19.90 Unspecified osteoarthritis, unspecified site; N40.0 Benign prostatic hyperplasia without lower urinary tract symptoms; I25.10 Atherosclerotic heart disease of native coronary artery without angina pectoris; E66.9 Obesity, unspecified; K59.00 Constipation, unspecified; E87.6 Hypokalemia; Z68.26 Body mass index [BMI] 26.0-26.9, adult; Z79.899 Other long term (current) drug therapy; Z79.01 Long term (current) use of anticoagulants; Z79.82 Long term (current) use of aspirin; Z95.5 Presence of coronary angioplasty implant and graft; Z87.01 Personal history of pneumonia (recurrent); Z87.891 Personal history of nicotine dependence; Z86.010 Personal history of colon polyps; Z95.0 Presence of cardiac pacemaker; Z87.74 Personal history of (corrected) congenital malformations of heart and circulatory system; Z80.9 Family history of malignant neoplasm, unspecified; Z82.49 Family history of ischemic heart disease and other diseases of the circulatory system
CPT/HCPCS: 36415; 71045; 71046; 71250; 76604; 80048; 80053; 82103; 82104; 82785; 83735; 83880; 84132; 84484; 85025; 85610; 85730; 86001; 86003; 86606; 86609; 86738; 87040; 87070; 87205; 87449; 87502; 93005; 93306; 94640; 94760; 99291

== ENCOUNTER → 2018-09-22 | Outpatient (CLI) | payer MEDICARE, BC ==
[2018-09-22 18:25] LABS: Anion Gap 9.8 mmol/L (4.00-12.00); Calcium 9.3 mg/dL (8.7-10.3); Carbon Dioxide 28.2 mmol/L (21.6-31.8); Magnesium 2.2 mg/dL (1.5-2.4); Potassium 4.2 mmol/L (3.5-5.5)
== END | disposition home or self-care (01) ==
LOC: LABWHC1 09:47
PROVIDERS: ATTEND Nurse Practitioner
DX: E78.00 Pure hypercholesterolemia, unspecified (principal); I48.2 Chronic atrial fibrillation; I25.10 Atherosclerotic heart disease of native coronary artery without angina pectoris; Z95.0 Presence of cardiac pacemaker; Z98.61 Coronary angioplasty status; Z98.890 Other specified postprocedural states
CPT/HCPCS: 36415; 80048; 83735

== ENCOUNTER 2018-09-28 05:38 | Day surgery (SDC) | payer MEDICARE, BC ==
[2018-09-22 15:31] VITALS: BMI 25.3
[2018-09-28] MEDS ORDERED: SODIUM CHLORIDE 0.9% 1,000 ML in EMPTY BAG 1 BAG IV ONE (06:00)
[2018-09-28] MEDS ORDERED: ASPIRIN 325 MG TAB PO ONE (06:00)
[2018-09-28] MEDS ORDERED: ALPRAZolam 0.25 MG TAB PO PRN (06:00)
[2018-09-28 06:31] VITALS: TEMP 97.8
[2018-09-28 06:39] LABS: INR 1.6 (<1.2); Prothrombin Time 16.3 sec (9.0-12.0)
[2018-09-28] MEDS ORDERED: LIDOCAINE 1% INJ 10MG/ML (20 ML MDV) ONE (07:09)
[2018-09-28] MEDS ORDERED: MIDAZOLAM (PF) 2 MG/2 ML VIAL IV ONE ×3 (07:17→13:02)
[2018-09-28] MEDS ORDERED: LIDOCAINE 1% INJ 10MG/ML (20 ML MDV) SQ ONE (07:19)
[2018-09-28] MEDS ORDERED: IOPAMIDOL-250 100ML BTL INTRAARTER ONE (08:03)
[2018-09-28] MEDS ORDERED: SODIUM CHLORIDE 0.9% 1,000 ML IV ONE (08:04)
[2018-09-28 08:27] LABS: O2 Sat Blood Gas 64.5 %; O2 Sat Blood Gas 73.7 %
[2018-09-28 08:28] LABS: O2 Sat Blood Gas 65.3 %; O2 Sat Blood Gas 73.6 %
[2018-09-28 08:29] LABS: O2 Sat Blood Gas 64.8 %
[2018-09-28] MEDS ORDERED: SODIUM CHLORIDE 0.9% 1,000 ML IV SCH (08:45)
--- NOTE | 2018-09-28 10:05 | CC ---
CARDIAC CATHETERIZATION REPORT DATE OF SERVICE: 09/28/2018. PROCEDURE: 1. Right heart catheterization with oxygen saturation run. 2. Left heart catheterization and coronary angiography. PERFORMED BY: Dr. Tucker Diego. Moderate conscious sedation time was 51 minutes. Patient was administered Versed and Benadryl. His oxygen saturation, hemodynamics and EKG were monitored closely. CLINICAL INFORMATION: Mr. Von Mascorro is a 78-year-old gentleman with a known history of CAD and the PFO/ASD. In 2001, I performed stenting of a nondominant circumflex. In 2010 and subsequently in 2012, I performed stenting of his right coronary artery. The last procedure was in 2012 when I performed stenting of a restenotic lesion within the mid distal RCA. At that time, the circumflex stented segment was patent, but there was diffuse disease in RCA. Right was a superdominant vessel. In December of 2012, he went on to have a #25 Amplatzer device for his ASD closure. Since then has done well. Recently; however, he was hospitalized with pneumonia, had an echo which revealed significant enlargement of right-side with pulmonary hypertension, raising the possibility of failure of the device. He was advised coronary angiography given his symptoms as of chest tightness and pressure as well. Patient was advised a right and left heart catheterization and transesophageal echo and was brought in for the procedure electively after holding Coumadin for 72 hours. PROCEDURE NOTE: Under local anesthesia and strict aseptic precautions, a 6-Polish introducer in the right femoral artery and 8-Polish introducer in the right femoral vein. Using a balloon-tipped catheter, I performed right heart catheterization but I had a lot of difficulty keeping the catheter in place. I did not do a thermodilution cardiac output. Saturations were obtained. I had to use a wire to get up to the pulmonary artery. Oxygen saturations samples were obtained from the IVC, SVC, right atrium, right ventricle and pulmonary artery and femoral arterial saturation. Subsequently, coronary angiography was performed with a standard right and JL5 catheter. The pigtail catheter was used to check LV pressures but LV gram was not performed. The arterial sheath was taken out and Angio-Seal device used to secure hemostasis. The venous sheath was taken out with manual hemostasis. The patient was sent to the room in a stable condition. CARDIAC CATHETERIZATION FINDINGS: The right atrial pressure was about 6 mmHg, but this was not accurate. There was a transducer issue. Right ventricular pressure was 50/20. Pulmonary artery pressure was 50/20 with a mean of 32. Left ventricle end-diastolic pressure was 16 mmHg without any gradient across aortic valve. Femoral arterial saturation was 90%. Right atrial saturation was 74%. Right ventricular saturation was 65%. Pulmonary arterial saturation was 64.5%. SVC was 64.8%. IVC was 73.6%. There was no significant step-up technically. The mixed venous saturation would be 3 SVC and 1 IVC also does not suggest any step-up. However. fluoroscopically I was able to get to the left atrium, I think across the Amplatzer device on fluoroscopy, but this will be further verified by [facility]IVA. CORONARY ANGIOGRAPHY FINDINGS: RIGHT CORONARY ARTERY: A large super dominant vessel with multiple stents calcification and the previously stented segment is widely patent with no more than 35% mid lesion and it bifurcates into a large PDA and PLV, both of which supply a sizable amount of myocardium. Mid RCA therefore has a 35% narrowing, but the stented segment is widely patent with good flow. LEFT MAIN CORONARY ARTERY: Short patent disease-free vessel that bifurcates into LAD and circumflex. There is distal narrowing of the left main of about 10%. LEFT ANTERIOR DESCENDING CORONARY ARTERY. There was a focal 50% stenosis at the ostium of the LAD as it comes off from the left main and then there is diffuse disease in the LAD without critical narrowing throughout. LEFT POSTERIOR CIRCUMFLEX CORONARY ARTERY: Very proximally in the MCMANUS caudal view, there appears to be a 40% to 50% lesion after which the stented segment is patent. The first obtuse minor is patent. Distal branches are small in caliber. LEFT VENTRICULOGRAM: This was not performed. FINAL IMPRESSION: 1. Patient has widely patent and superdominant right coronary artery that was stented in 2013. 2. The left main has no significant critical disease. Left anterior descending artery has a 50% ostial left anterior descending lesion and the circumflex also has a 50% ostial lesion best seen in the MCMANUS caudal projection, but the stented segment in the circumflex is widely patent. The patient had a stent of circumflex performed in 2001. His last stent was of the RCA restenotic lesion in 2013. RECOMMENDATIONS: From a coronary disease standpoint, we will pursue medical therapy. I will await the results of the transesophageal echo before making recommendations regarding his AST. Technically, there was no step-up noted and there is moderate pulmonary hypertension noted. Right atrial pressure was not well quantified. There was no gradient across the aortic valve. There is a moderate disease in both LAD and circumflex, but no significant disease in the super dominant RCA. We will pursue medical therapy. Await the and await the results of transesophageal echo. MMGOLDIE / IJN: [id number] /
[2018-09-28] MEDS ORDERED: fentaNYL (PF) 50 MCG/ML 2 ML AMP ONE (12:30)
[2018-09-28] MEDS ORDERED: IV FLUID CONTINUATION 1,000 ML IV ONE (12:38)
[2018-09-28] MEDS ORDERED: BENZOCAINE SPRAY 1 CAN MUCOUS MEM ONE (12:50)
[2018-09-28] MEDS ORDERED: fentaNYL (PF) 50 MCG/ML 2 ML AMP IV ONE (12:52)
[2018-09-28 13:12] VITALS: RESP 16
[2018-09-28 15:30] VITALS: PULSE 60
[2018-09-28 15:39] VITALS: BP 115/57
--- NOTE | 2018-09-28 16:38 | ECHOT ---
TRANSESOPHAGEAL ECHOCARDIOGRAM DATE OF SERVICE: 09/28/2018 PERFORMING PHYSICIAN: Vladislav Covarrubias MD, needle polisher. PROCEDURE PERFORMED: Transesophageal echocardiogram. INDICATION: This is a pleasant 78-year-old gentleman who sees Dr. Astrid Diego in the office as an outpatient with a history of interatrial communication and status post percutaneous closure of atrial septal defect in 2012. Recently he was more short of breath. He underwent transthoracic echocardiogram which showed right-sided enlargement with possible interatrial communication. Because of that, transesophageal echocardiogram was advised. COMPLICATIONS: None. LEVEL OF SEDATION: Moderate, with sedation length of 15 minutes. PROCEDURE DESCRIPTION: After obtaining informed consent, explaining the procedure, benefits, risks, complications and alternatives, the patient was brought to the transesophageal echocardiogram suite. A pulse oximetry and heart rate monitors were attached to the patient prior to the procedure. The patient's throat was sprayed using lidocaine locally. Following that, the patient was turned into left lateral position. A bite guard was placed and the patient was then sedated with the above doses of Versed and fentanyl in divided doses. Following that, the transesophageal echocardiogram probe was advanced through the bite guard into the mid esophagus where 2-D echocardiogram images as well as color Doppler images of various cardiac structures were obtained. We evaluated the interatrial septum using 2-D echocardiogram, color Doppler, and contrast study. The procedure was completed. There were no complications. FINDINGS: The left ventricular dimension and systolic function appeared to be within normal limits with an ejection fraction of 50% to 55%. The right ventricle appeared to be of normal size and function. The left and right atria are severely dilated. The left atrial appendage appeared to be intact without any evidence of thrombus. Interatrial septum was well seen during the study. Amplatzer device was identified with evidence of a small shunt that seemed to be a [id number] shunt without any evidence of left- to-right shunt seen. The shunt was seen by color flow Doppler as well as by contrast study. The aortic valve is a trileaflet valve without stenosis, with mild regurgitation. The mitral valve seems to be mildly thickened with evidence of moderate to severe MR. There was moderate to severe tricuspid regurgitation as well. The pulmonary artery systolic pressure was calculated to be about 55 mmHg, indicating severe pulmonary hypertension. CONCLUSION: 1. Normal left ventricular dimension and systolic function with ejection fraction between 50% and 55%. 2. Severe biatrial enlargement. 3. Severely dilated right ventricle with normal function. 4. Septal occluder device was seen and seems to be in place with evidence of right-to- left shunt identified without any evidence of rweu-in-bamya shunt. 5. Normal left atrial appendage without any evidence of thrombus. 6. Trileaflet aortic valve without stenosis, but with mild insufficiency. 7. Thickened mitral valve leaflets with moderate to severe mitral regurgitation. 8. Moderate to severe tricuspid regurgitation. 9. Moderate to severe pulmonary hypertension. 10. pericardial effusion seen as well. MMODL / IJN: [id number] /
== END 2018-09-28 15:30 | disposition home or self-care (01) ==
LOC: CATHCVL 05:38
PROVIDERS: ATTEND Internal Medicine Interventional Cardiology
DX: I25.10 Atherosclerotic heart disease of native coronary artery without angina pectoris (principal); I11.9 Hypertensive heart disease without heart failure; I08.3 Combined rheumatic disorders of mitral, aortic and tricuspid valves; I27.20 Pulmonary hypertension, unspecified; I31.3 Pericardial effusion (noninflammatory); I49.5 Sick sinus syndrome; I48.2 Chronic atrial fibrillation; E78.5 Hyperlipidemia, unspecified; Z95.0 Presence of cardiac pacemaker; Z99.89 Dependence on other enabling machines and devices; Z95.5 Presence of coronary angioplasty implant and graft; Z98.890 Other specified postprocedural states; Z72.0 Tobacco use; Z79.01 Long term (current) use of anticoagulants; Z79.82 Long term (current) use of aspirin; Z79.899 Other long term (current) drug therapy; Z87.01 Personal history of pneumonia (recurrent)
CPT/HCPCS: 93312; 93320; 93325; 93460; 85018; 82810; 85610; C1760; C1769 ×3; C1894 ×2; J2001; J3010; Q9966; J2250

== ENCOUNTER → 2018-09-29 | Outpatient (CLI) | payer MEDICARE, BC ==
[2018-09-29 20:38] LABS: Albumin 4.4 g/dL (3.80-4.90); Albumin/Globulin Ratio 2.59 (1.60-3.17); Bilirubin, Conjugated 0.2 mg/dL (0.20-0.40); Bilirubin,Unconjugated 0.5 mg/dL; Globulin 1.7 g/dL (1.6-3.3); Total Bilirubin 0.7 mg/dL (0.3-1.2); Total Protein 6.1 g/dL (6.2-8.2)
[2018-09-29 20:49] LABS: Rheumatoid Factor <4 IU/mL (0-15)
[2018-09-29 22:00] LABS: Anti-DNA, DS unit <1.0 IU/mL; Cyclic Citrullinated Pep IgG NEGATIVE (NEGATIVE); DNA Double-Stranded NEGATIVE (NEGATIVE); RNP 0.2 AI; Scleroderma SC-70 Ab <0.2 AI
[2018-09-29 22:01] LABS: HIV 1 AB Non-Reactive (Non-Reactive); HIV AB P24 Non-Reactive (Non-Reactive); HIV P24 AG Non-Reactive (Non-Reactive)
== END | disposition home or self-care (01) ==
LOC: LABWHC1 12:46
PROVIDERS: ATTEND Internal Medicine Pulmonary Disease
DX: I27.20 Pulmonary hypertension, unspecified (principal); R53.83 Other fatigue
CPT/HCPCS: 36415; 80076; 84443; 86038; 86200; 86225; 86235; 86431; 87390

== ENCOUNTER 2018-12-10 | Emergency (ER) | payer MEDICARE, BC ==
--- NOTE | 2018-12-10 08:52 | ED ---
Lower Extremity Injury HPI - General Chief Complaint: Extremity Injury, Lower Stated Complaint: Leg Pain Time Seen by Provider: 12/10/18 08:29 Source: patient Mode of arrival: ambulatory Limitations: no limitations - History of Present Illness Initial Comments: 78-year-old male with extensive cardiac history on warfarin presented today for chief complaint of bruising of the right leg. Patient states 2 weeks ago when playing [employer] he noticed up to throw the sac when he felt a pop in his leg just distal to the knee. Patient states that he has since had discomfort in this area. Especially when ambulate him. He states his has been making him elevate his leg at home. Patient states he began noticing the bruising higher up on the lateral aspect of the right leg. Patient was concerned. Patient states he has been taking his INR weekly and it has been therapeutic at all times. Patient denies any history of blood clots. States there is some mild swelling of the leg. He denies experiencing any pain or swelling prior to the onset of the trauma. Patient denies fall or any direct trauma. Patient denies chest pain or short of breath. Remaining review of system negative. Upon arrival patient appears well no signs of acute distress. Ambulatory without difficulty into the emergency department. - Related Data Home Medications Medication Instructions Recorded Confirmed Allopurinol [Zyloprim] 300 mg PO DAILY 07/21/14 09/22/18 Ascorbic Acid [Vitamin C] 500 mg PO BID 07/21/14 09/22/18 Atorvastatin [Lipitor] 40 mg PO HS 07/21/14 09/22/18 Warfarin [Coumadin] 1 mg PO SUWE 07/21/14 09/28/18 Warfarin [Coumadin] 1.5 mg PO MOTUTHFRSA 07/21/14 09/28/18 Multivitamins, Thera [Multivitamin 1 tab PO DAILY 05/04/16 09/22/18 (formulary)] Aspirin EC [Ecotrin Low Dose] 81 mg PO HS 08/22/18 09/28/18 Loratadine [Claritin] 10 mg PO DAILY 08/22/18 09/22/18 Metoprolol Succinate (ER) [Toprol 25 mg PO DAILY 08/22/18 09/22/18 XL] Furosemide [Lasix] 40 mg PO DAILY 09/22/18 09/22/18 Potassium Chloride ER [K-Dur 20] 20 meq PO DAILY 09/22/18 09/22/18 Previous Rx's Medication Instructions Recorded Losartan Potassium [Cozaar] 100 mg PO DAILY #30 tab 05/06/16 amLODIPine BESYLATE [Norvasc] 10 mg PO HS #30 tablet 05/06/16 Allergies Allergy/AdvReac Type Severity Reaction Status Date / Time No Known Allergies Allergy Verified 12/10/18 08:27 Review of Systems ROS Statement: Those systems with pertinent positive or pertinent negative responses have been documented in the HPI. ROS Other: All systems not noted in ROS Statement are negative. Past Medical History Past Medical History: Atrial Fibrillation, Chest Pain / Angina, Hyperlipidemia, Hypertension, Myocardial Infarction ([place]), Pneumonia, Prostate Disorder, Sleep Apnea/CPAP/BIPAP Additional Past Medical History / Comment(s): gout, uses CPAP, pulmonary hypertension, "leaky valve Last Myocardial Infarction Date:: 2001 History of Any Multi-Drug Resistant Organisms: None Reported Past Surgical History: Appendectomy, Heart Catheterization With Stent, Orthopedic Surgery, Pacemaker Additional Past Surgical History / Comment(s): ORIF rt elbow and wrist, septal occluder for heart valve Past Anesthesia/Blood Transfusion Reactions: Motion Sickness Date of Last Stent Placement:: 10/2012 Type of Cardiac Device: Permanent Pacemaker Device Placement Date:: 2016 Past Psychological History: No Psychological Hx Reported Smoking Status: Former smoker Past Alcohol Use History: None Reported Past Drug Use History: None Reported - Past Family History Father Additional Family Medical History / Comment(s): Father had heart problems. Mother Family Medical History: AFIB Additional Family Medical History / Comment(s): Mother had heart problems. Sister(s) Family Medical History: Cancer General Exam - General Exam Comments Initial Comments: General: The patient is awake and alert, in no distress, and does not appear acutely ill. Eye: Pupils are equal, round and reactive to light, extra-ocular movements are intact. No nystagmus. There is normal conjunctiva bilaterally. No signs of icterus. Cardiovascular: There is a regular rate and rhythm. No murmur, rub or gallop is appreciated. Respiratory: Lungs are clear to auscultation, respirations are non-labored, breath sounds are equal. No wheezes, stridor, rales, or rhonchi. Musculoskeletal: Upon inspection of the legs bilaterally. They appear equal. There is point localized tenderness to the posterior calf just distal to the knee approximately 2 inches. On the medial aspect. Small bruise noted at this area. No masses. Negative Homans. Chao's intact. No hitting edema. Patient has what appears to be old bruising on the right thigh just proximal to the knee joint, yellowish, blue in color. No masses palpated in this area or pen tenderness. Normal ROM, at the knees and hips and ankles bilaterally. Some mild tenderness with range of motion of the knee. No point localized tenderness over the knee joint. Patient is able to weight-bear. Full sensation of the proximal distal to injury site. +2 dorsalis pedis and pulses equal comparison bilaterally. Strength 5/5. Neurological: A&O x 3. CN II-XII intact, There are no obvious motor or sensory deficits. Coordination appears grossly intact. Speech is normal. Skin: Skin is warm and dry and no rashes or lesions are noted. Psychiatric: Cooperative, appropriate mood & affect, normal judgment. Limitations: no limitations Course Vital Signs 12/10/18 12/10/18 08:24 09:18 Temperature 97.9 F 97.6 F Pulse Rate 72 61 Respiratory 18 13 Rate Blood Pressure 139/64 121/74 O2 Sat by Pulse 98 96 Oximetry Medical Decision Making - Medical Decision Making 78-year-old male presenting for bruising of the right thigh that is painless. Patient has history of injury and straining of the right lower leg while playing [employer]. He states that he has been elevated the leg. I feel that the ecchymosis has spread from the area of injury to the right lateral thigh secondary to elevation. Patient has been therapeutic on his Coumadin, and I have low suspicion for other vascular process. Patient is neurovascularly intact. Appears well denies chest pain source of breath. Vital signs within acceptable limits. Discussed my clinical impression of patient's physical examination and history. He states he is agreeable. I recommend outpatient Surgery evaluation. Patient isn't clear about this and appears happy with plan. Patient able to weight-bear recommended rest ice compression and elevation. Patient discharged appearing well, discussing the plan with attending provider Dr. Montgomery who is agreeable. Disposition Clinical Impression: Muscle strain of right lower leg, Traumatic ecchymosis of right lower leg Disposition: HOME SELF-CARE Condition: Good Instructions (If sedation given, give patient instructions): Muscle Strain (ED), Tendon Rupture (ED) Is patient prescribed a controlled substance at d/c from ED?: No Referrals: Christin Brink MD [Primary Care Provider] - 1-2 days Watson Martines MD [Medical Doctor] - 1-2 days Time of Disposition: 09:00
== END 2018-12-10 09:15 | disposition home or self-care (01) ==
CPT/HCPCS: 99283

== ENCOUNTER → 2018-12-12 | Outpatient (CLI) | payer MEDICARE, BC ==
--- NOTE | 2018-12-12 18:24 | US ---
EXAMINATION TYPE: US venous doppler duplex LE RT DATE OF EXAM: 12/12/2018 6:08 PM COMPARISON: NONE CLINICAL HISTORY: M79.661 Right leg pain. Pain right leg x 2 weeks. Itchiness. No hx DVT. Pt on blood thinners. SIDE PERFORMED: Right TECHNIQUE: The lower extremity deep venous system is examined utilizing real time linear array sonog jocelyn with graded compression, doppler sonography and color-flow sonography. VESSELS IMAGED: External Iliac Vein (EIV) Common Femoral Vein Deep Femoral Vein Greater Saphenous Vein * Femoral Vein Popliteal Vein Small Saphenous Vein * Proximal Calf Veins (* superficial vessels) Right Leg: No evidence of DVT at this time. Hypoechoic area with echogenic center seen right groin m easuring: x 1.4 x 1.0 x 0.4 cm. IMPRESSION: No evidence of deep venous thrombosis in the right leg.
== END | disposition home or self-care (01) ==
LOC: RADUSWWP 17:22
PROVIDERS: ATTEND Orthopaedic Surgery
DX: I80.9 Phlebitis and thrombophlebitis of unspecified site (principal); S86.911A Strain of unspecified muscle(s) and tendon(s) at lower leg level, right leg, initial encounter

== ENCOUNTER 2019-01-06 13:00 | Emergency (ER) | payer MEDICARE, BC ==
[2019-01-06 13:08] VITALS: TEMP 98
--- NOTE | 2019-01-06 14:38 | US ---
EXAMINATION TYPE: US venous doppler duplex LE RT DATE OF EXAM: 01/06/2019 2:30 PM COMPARISON: CLINICAL HISTORY: Pain. No visible redness or swelling seen at this time. On coumadin. No hx of blo od clots. SIDE PERFORMED: Right TECHNIQUE: The lower extremity deep venous system is examined utilizing real time linear array sonog jocelyn with graded compression, doppler sonography and color-flow sonography. VESSELS IMAGED: External Iliac Vein (EIV) Common Femoral Vein Deep Femoral Vein Greater Saphenous Vein * Femoral Vein Popliteal Vein Small Saphenous Vein * Proximal Calf Veins (* superficial vessels) Grayscale, color doppler, spectral doppler imaging performed of the deep veins of the right lower ext remity. There is normal flow, compressibility, vascular waveforms. Right Leg: Negative for DVT IMPRESSION: No sonographic evidence of deep venous thrombosis within the right lower extremity.
--- NOTE | 2019-01-06 14:47 | ED ---
Extremity Problem HPI - General Chief complaint: Extremity Problem,Nontraumatic Stated complaint: Possible blood clot in leg Time Seen by Provider: 01/06/19 13:27 Source: patient, RN notes reviewed Mode of arrival: ambulatory Limitations: no limitations - History of Present Illness Initial comments: 78-year-old male presents emergency from chief complaint right leg swelling. Patient states that he's been therapy recently for a cath Strain. Patient states is getting better but today he presented for leg swelling at his PCPs office PCP sent to the ER for rule out DVT. Patient is on Coumadin INR 3.7 today. Patient denies any chest or shortness of breath. Patient denies any increased warmth or discoloration to his leg. Patient normally wears co mpression stockings but has not been wearing them. - Related Data Home Medications Medication Instructions Recorded Confirmed Allopurinol [Zyloprim] 300 mg PO DAILY 07/21/14 09/22/18 Ascorbic Acid [Vitamin C] 500 mg PO BID 07/21/14 09/22/18 Atorvastatin [Lipitor] 40 mg PO HS 07/21/14 09/22/18 Warfarin [Coumadin] 1 mg PO SUWE 07/21/14 09/28/18 Warfarin [Coumadin] 1.5 mg PO MOTUTHFRSA 07/21/14 09/28/18 Multivitamins, Thera [Multivitamin 1 tab PO DAILY 05/04/16 09/22/18 (formulary)] Aspirin EC [Ecotrin Low Dose] 81 mg PO HS 08/22/18 09/28/18 Loratadine [Claritin] 10 mg PO DAILY 08/22/18 09/22/18 Metoprolol Succinate (ER) [Toprol 25 mg PO DAILY 08/22/18 09/22/18 XL] Furosemide [Lasix] 40 mg PO DAILY 09/22/18 09/22/18 Potassium Chloride ER [K-Dur 20] 20 meq PO DAILY 09/22/18 09/22/18 Previous Rx's Medication Instructions Recorded Losartan Potassium [Cozaar] 100 mg PO DAILY #30 tab 05/06/16 amLODIPine BESYLATE [Norvasc] 10 mg PO HS #30 tablet 05/06/16 Allergies Allergy/AdvReac Type Severity Reaction Status Date / Time No Known Allergies Allergy Verified 01/06/19 13:08 Review of Systems ROS Statement: Those systems with pertinent positive or pertinent negative responses have been documented in the HPI. ROS Other: All systems not noted in ROS Statement are negative. Past Medical History Past Medical History: Atrial Fibrillation, Chest Pain / Angina, Hyperlipidemia, Hypertension, Myocardial Infarction ([place]), Pneumonia, Prostate Disorder, Sleep Apnea/CPAP/BIPAP Additional Past Medical History / Comment(s): gout, uses CPAP, pulmonary hypertension, "leaky valve Last Myocardial Infarction Date:: 2001 History of Any Multi-Drug Resistant Organisms: None Reported Past Surgical History: Appendectomy, Heart Catheterization With Stent, Orthopedic Surgery, Pacemaker Additional Past Surgical History / Comment(s): ORIF rt elbow and wrist, septal occluder for heart valve Past Anesthesia/Blood Transfusion Reactions: Motion Sickness Date of Last Stent Placement:: 10/2012 Type of Cardiac Device: Permanent Pacemaker Device Placement Date:: 2016 Past Psychological History: No Psychological Hx Reported Smoking Status: Former smoker Past Alcohol Use History: None Reported Past Drug Use History: None Reported - Past Family History Father Additional Family Medical History / Comment(s): Father had heart problems. Mother Family Medical History: AFIB Additional Family Medical History / Comment(s): Mother had heart problems. Sister(s) Family Medical History: Cancer General Exam Limitations: no limitations General appearance: alert, in no apparent distress Head exam: Present: atraumatic, normocephalic, normal inspection Neck exam: Present: normal inspection, full ROM. Absent: tenderness, meningismus, lymphadenopathy Respiratory exam: Present: normal lung sounds bilaterally. Absent: respiratory distress, wheezes, rales, rhonchi, stridor Cardiovascular Exam: Present: regular rate, normal rhythm, normal heart sounds. Absent: systolic murmur, diastolic murmur, rubs, gallop, clicks GI/Abdominal exam: Present: soft, normal bowel sounds. Absent: distended, tenderness, guarding, rebound, rigid Extremities exam: Present: other (Right leg there is no notable swelling, pulses equal bilaterally, equal color equal warmth there is no tenderness with palpati on) Course Vital Signs 01/06/19 13:05 Temperature 98 F Pulse Rate 68 Respiratory 16 Rate Blood Pressure 140/62 O2 Sat by Pulse 95 Oximetry Medical Decision Making - Medical Decision Making 78-year-old male presented for right leg swelling. INR 3.7. Patient is neuro vascularly intact with equal pulses. Patient has leg swelling which is been chronic. Patient we discharged advised to rest elevate and wear compression stockings Disposition Clinical Impression: Leg edema Disposition: HOME SELF-CARE Condition: Stable Instructions (If sedation given, give patient instructions): Leg Edema (ED) Additional Instructions: Please return to the Emergency Department if symptoms worsen or any other concerns. Is patient prescribed a controlled substance at d/c from ED?: No Referrals: Christin Brink MD [Primary Care Provider] - 1-2 days Time of Disposition: 14:46
[2019-01-06 14:58] VITALS: BP 138/76; PULSE 84; RESP 18
== END 2019-01-06 14:58 | disposition home or self-care (01) ==
LOC: EC 13:00
DX: R60.0 Localized edema (principal); I48.91 Unspecified atrial fibrillation; E78.5 Hyperlipidemia, unspecified; I10 Essential (primary) hypertension; I25.2 Old myocardial infarction; G47.30 Sleep apnea, unspecified; Z79.01 Long term (current) use of anticoagulants; Z79.82 Long term (current) use of aspirin; Z79.899 Other long term (current) drug therapy; Z87.891 Personal history of nicotine dependence; Z95.0 Presence of cardiac pacemaker; Z95.5 Presence of coronary angioplasty implant and graft
CPT/HCPCS: 99283

== ENCOUNTER 2019-03-18 09:06 | Emergency (ER) | payer MEDICARE, BC ==
[2019-03-18] MEDS ORDERED: ACETAMINOPHEN TAB 500 MG TAB PO STA (09:50)
[2019-03-18] MEDS ORDERED: ALBUTEROL NEBULIZED 2.5 MG/3 ML INHALATION STA (09:50)
[2019-03-18] MEDS ORDERED: SODIUM CHLORIDE 0.9% 1,000 ML IV STA (09:50)
[2019-03-18] MEDS ORDERED: IPRATROPIUM-ALBUTEROL 3 ML NEB INHALATION STA (09:52)
--- NOTE | 2019-03-18 10:09 | XR ---
EXAMINATION TYPE: XR chest 2V DATE OF EXAM: 03/18/2019 HISTORY: cough. REFERENCE: Previous study dated 08/28/2018. FINDINGS: There is unipolar pacemaker place on the left. The heart is enlarged. The lungs are clear. Pleural spaces are clear. IMPRESSION: CARDIOMEGALY.
[2019-03-18 10:25] LABS: Appearance,Urine Clear (Clear); Basophils # (A) 0.1 k/uL (0-0.2); Basophils % (A) 1 %; Bilirubin,Urine Negative (Negative); Blood,Urine Negative (Negative); Color,Urine Yellow; Eosinophils % (A) 0 %; Glucose,Urine (UA) Negative (Negative); HCT 38.5 % (39.0-53.0); HGB 12.2 gm/dL (13.0-17.5); Ketones,Urine Negative (Negative); Leukocyte Esterase,Urine Negative (Negative); Lymphocytes # (A) 0.4 k/uL (1.0-4.8); Lymphocytes % (A) 5 %; MCH 30.6 pg (25.0-35.0); MCHC 31.6 g/dL (31.0-37.0); MCV 96.9 fL (80.0-100.0); Mean Platelet Volume 8.6; Monocytes # (A) 0.7 k/uL (0-1.0); Monocytes % (A) 8 %; Neutrophils # (A) 7.5 k/uL (1.3-7.7); Neutrophils % (A) 85 %; Nitrite,Urine Negative (Negative); PH, Urine 5.5 (5.0-8.0); Platelet Count 126 k/uL (150-450); Protein,Urine Negative (Negative); RBC 3.97 m/uL (4.30-5.90); RDW 14.4 % (11.5-15.5); Urobilinogen,Urine <2.0 mg/dL (<2.0); WBC 8.8 k/uL (3.8-10.6)
[2019-03-18 10:51] LABS: Albumin 4.2 g/dL (3.5-5.0); Calcium 9.3 mg/dL (8.4-10.2); Potassium 4.1 mmol/L (3.5-5.1); Total Bilirubin 0.5 mg/dL (0.2-1.3)
--- NOTE | 2019-03-18 10:51 | ED ---
URI HPI - General Chief Complaint: Upper Respiratory Infection Stated Complaint: cough, congestion Time Seen by Provider: 03/18/19 09:23 Source: patient, RN notes reviewed, old records reviewed Mode of arrival: ambulatory Limitations: no limitations - History of Present Illness Initial Comments: Von is a 79-year-old male with one week of cough congestion and sneezing. Patient reports he's had no specific fever but did feel chilled yesterday. Ana ent reports he does use CPAP machine. He has been coughing for the past week. Saw primary care doctor and was placed on azithromycin. He's been on this since Wednesday. Patient has had prednisone as well. He reports that he seems to be getting better and getting worse. Patient is a nonsmoker. - Related Data Home Medications Medication Instructions Recorded Confirmed Allopurinol [Zyloprim] 300 mg PO DAILY 07/21/14 09/22/18 Ascorbic Acid [Vitamin C] 500 mg PO BID 07/21/14 09/22/18 Atorvastatin [Lipitor] 40 mg PO HS 07/21/14 09/22/18 Warfarin [Coumadin] 1 mg PO SUWE 07/21/14 09/28/18 Warfarin [Coumadin] 1.5 mg PO MOTUTHFRSA 07/21/14 09/28/18 Multivitamins, Thera [Multivitamin 1 tab PO DAILY 05/04/16 09/22/18 (formulary)] Aspirin EC [Ecotrin Low Dose] 81 mg PO HS 08/22/18 09/28/18 Loratadine [Claritin] 10 mg PO DAILY 08/22/18 09/22/18 Metoprolol Succinate (ER) [Toprol 25 mg PO DAILY 08/22/18 09/22/18 XL] Furosemide [Lasix] 40 mg PO DAILY 09/22/18 09/22/18 Potassium Chloride ER [K-Dur 20] 20 meq PO DAILY 09/22/18 09/22/18 Previous Rx's Medication Instructions Recorded Losartan Potassium [Cozaar] 100 mg PO DAILY #30 tab 05/06/16 amLODIPine BESYLATE [Norvasc] 10 mg PO HS #30 tablet 05/06/16 Fluticasone Nasal [place] [Flonase 2 spr EA NOSTRIL DAILY #1 bottle 03/18/19 Nasal [place]] Allergies Allergy/AdvReac Type Severity Reaction Status Date / Time No Known Allergies Allergy Verified 03/18/19 09:14 Review of Systems ROS Statement: Those systems with pertinent positive or pertinent negative responses have been documented in the HPI. ROS Other: All systems not noted in ROS Statement are negative. Past Medical History Past Medical History: Atrial Fibrillation, Chest Pain / Angina, Hyperlipidemia, Hypertension, Myocardial Infarction ([place]), Pneumonia, Prostate Disorder, Sleep Apnea/CPAP/BIPAP Additional Past Medical History / Comment(s): gout, uses CPAP, pulmonary hypertension, "leaky valve Last Myocardial Infarction Date:: 2001 History of Any Multi-Drug Resistant Organisms: None Reported Past Surgical History: Appendectomy, Heart Catheterization With Stent, Orthopedic Surgery, Pacemaker Additional Past Surgical History / Comment(s): ORIF rt elbow and wrist, septal occluder for heart valve Past Anesthesia/Blood Transfusion Reactions: Motion Sickness Date of Last Stent Placement:: 10/2012 Type of Cardiac Device: Permanent Pacemaker Device Placement Date:: 2016 Past Psychological History: No Psychological Hx Reported Smoking Status: Former smoker Past Alcohol Use History: None Reported Past Drug Use History: None Reported - Past Family History Father Additional Family Medical History / Comment(s): Father had heart problems. Mother Family Medical History: AFIB Additional Family Medical History / Comment(s): Mother had heart problems. Sister(s) Family Medical History: Cancer General Exam - General Exam Comments Initial Comments: 79-year-old male. No distress. Limitations: no limitations General appearance: alert, in no apparent distress Head exam: Present: atraumatic, normocephalic, normal inspection Eye exam: Present: normal appearance ENT exam: Present: normal exam Neck exam: Present: normal inspection. Absent: tenderness, meningismus, lymphadenopathy Respiratory exam: Present: normal lung sounds bilaterally. Absent: respiratory distress, wheezes, rales, rhonchi, stridor Cardiovascular Exam: Present: regular rate (ER on the), normal rhythm, normal heart sounds. Absent: systolic murmur, diastolic murmur, rubs, gallop, clicks GI/Abdominal exam: Present: soft, normal bowel sounds. Absent: distended, tenderness, guarding, rebound, rigid Extremities exam: Present: normal inspection, full ROM, normal capillary refill. Absent: tenderness, pedal edema, joint swelling, calf tenderness Back exam: Present: normal inspection Neurological exam: Present: alert, oriented X3, CN II-XII intact Psychiatric exam: Present: normal affect, normal mood Skin exam: Present: warm, dry, intact, normal color. Absent: rash Course Vital Signs 03/18/19 03/18/19 03/18/19 09:12 10:00 10:19 Temperature 97.6 F 97.6 F Pulse Rate 72 72 62 Respiratory 18 18 16 Rate Blood Pressure 139/65 139/65 131/95 O2 Sat by Pulse 95 95 95 Oximetry 03/18/19 03/18/19 03/18/19 10:34 10:48 11:00 Temperature Pulse Rate 72 72 63 Respiratory 17 Rate Blood Pressure 131/87 O2 Sat by Pulse 97 Oximetry 03/18/19 11:15 Temperature Pulse Rate 63 Respiratory 17 Rate Blood Pressure 131/87 O2 Sat by Pulse 97 Oximetry Medical Decision Making - Medical Decision Making Patient's a pleasant 79-year-old male presents today for cough congestion sneezing for the past week. Patient treated with azithromycin and prednisone over the past week. Patient reports he's had waxing and waning cough, and has chills last night. He is concerned he may have pneumonia. At this time patient's chest x-ray was reviewed shows cardiomegaly with pacemaker but no signs of pneumonia. Has no wheezing or signs of difficulty breathing on exam. Patient was given IV fluids and blood work obtained. Blood work was reviewed, W CT is unremarkable. She he does have some signs of chronic kidney disease. Patient is aware of this and this is unchanged from previous. Discussed the Patient follow-up with his primary care doctor in regards to this. Discussed with no significant gouty breathing, normal chest x-ray with no pneumonia and no further antibiotics are warranted and likely viral syndrome. Patient advised to have prompt follow-up with primary care doctor. All questions were answered return parameters were discussed. - Lab Data Result diagrams: 03/18/19 10:14 03/18/19 10:14 Lab Results 03/18/19 03/18/19 03/18/19 Range/Units 09:55 10:14 10:14 WBC 8.8 (3.8-10.6) k/uL RBC 3.97 L (4.30-5.90) m/uL Hgb 12.2 L (13.0-17.5) gm/dL Hct 38.5 L (39.0-53.0) % MCV 96.9 (80.0-100.0) fL MCH 30.6 (25.0-35.0) pg MCHC 31.6 (31.0-37.0) g/dL RDW 14.4 (11.5-15.5) % Plt Count 126 L (150-450) k/uL Neutrophils % 85 % Lymphocytes % 5 % Monocytes % 8 % Eosinophils % 0 % Basophils % 1 % Neutrophils # 7.5 (1.3-7.7) k/uL Lymphocytes # 0.4 L (1.0-4.8) k/uL Monocytes # 0.7 (0-1.0) k/uL Eosinophils # 0.0 (0-0.7) k/uL Basophils # 0.1 (0-0.2) k/uL Sodium (137-145) mmol/L Potassium (3.5-5.1) mmol/L Chloride (98-107) mmol/L Carbon Dioxide (22-30) mmol/L Anion Gap mmol/L BUN (9-20) mg/dL Creatinine (0.66-1.25) mg/dL Est GFR (CKD-EPI)AfAm (>60 ml/min/1.73 sqM) Est GFR (CKD-EPI)NonAf (>60 ml/min/1.73 sqM) Glucose (74-99) mg/dL Calcium (8.4-10.2) mg/dL Total Bilirubin (0.2-1.3) mg/dL AST (17-59) U/L ALT (21-72) U/L Alkaline Phosphatase (38-126) U/L Total Protein (6.3-8.2) g/dL Albumin (3.5-5.0) g/dL Urine Color Yellow Urine Appearance Clear (Clear) Urine pH 5.5 (5.0-8.0) Ur Specific [place] 1.010 (1.001-1.035) Urine Protein Negative (Negative) Urine Glucose (UA) Negative (Negative) Urine Ketones Negative (Negative) Urine Blood Negative (Negative) Urine Nitrite Negative (Negative) Urine Bilirubin Negative (Negative) Urine Urobilinogen <2.0 (<2.0) mg/dL Ur Leukocyte Esterase Negative (Negative) Influenza Type A RNA Not Detected (Not Detectd) Influenza Type B (PCR) Not Detected (Not Detectd) 03/18/19 Range/Units 10:14 WBC (3.8-10.6) k/uL RBC (4.30-5.90) m/uL Hgb (13.0-17.5) gm/dL Hct (39.0-53.0) % MCV (80.0-100.0) fL MCH (25.0-35.0) pg MCHC (31.0-37.0) g/dL RDW (11.5-15.5) % Plt Count (150-450) k/uL Neutrophils % % Lymphocytes % % Monocytes % % Eosinophils % % Basophils % % Neutrophils # (1.3-7.7) k/uL Lymphocytes # (1.0-4.8) k/uL Monocytes # (0-1.0) k/uL Eosinophils # (0-0.7) k/uL Basophils # (0-0.2) k/uL Sodium 143 (137-145) mmol/L Potassium 4.1 (3.5-5.1) mmol/L Chloride 106 (98-107) mmol/L Carbon Dioxide 25 (22-30) mmol/L Anion Gap 12 mmol/L BUN 60 H (9-20) mg/dL Creatinine 1.76 H (0.66-1.25) mg/dL Est GFR (CKD-EPI)AfAm 42 (>60 ml/min/1.73 sqM) Est GFR (CKD-EPI)NonAf 36 (>60 ml/min/1.73 sqM) Glucose 138 H (74-99) mg/dL Calcium 9.3 (8.4-10.2) mg/dL Total Bilirubin 0.5 (0.2-1.3) mg/dL AST 32 (17-59) U/L ALT 29 (21-72) U/L Alkaline Phosphatase 85 (38-126) U/L Total Protein 7.0 (6.3-8.2) g/dL Albumin 4.2 (3.5-5.0) g/dL Urine Color Urine Appearance (Clear) Urine pH (5.0-8.0) Ur Specific [place] (1.001-1.035) Urine Protein (Negative) Urine Glucose (UA) (Negative) Urine Ketones (Negative) Urine Blood (Negative) Urine Nitrite (Negative) Urine Bilirubin (Negative) Urine Urobilinogen (<2.0) mg/dL Ur Leukocyte Esterase (Negative) Influenza Type A RNA (Not Detectd) Influenza Type B (PCR) (Not Detectd) Disposition Clinical Impression: Viral upper respiratory infection, Chronic kidney disease Disposition: HOME SELF-CARE Condition: Good Instructions (If sedation given, give patient instructions): Upper Respiratory Infection (ED) Additional Instructions: Patient has used Flonase. Follow-up with primary care doctor for kidney function and URI. Return to the emergency department if any alarming signs or symptoms occur. Prescriptions: Fluticasone Nasal [place] [Flonase Nasal [place]] 2 spr EA NOSTRIL DAILY #1 bottle Is patient prescribed a controlled substance at d/c from ED?: No Referrals: Christin rBink MD [Primary Care Provider] - 1-2 days Time of Disposition: 11:50
[2019-03-18 12:02] VITALS: BP 125/63; PULSE 66; RESP 18; TEMP 98.5
== END 2019-03-18 12:00 | disposition home or self-care (01) ==
LOC: EC 09:06
DX: J06.9 Acute upper respiratory infection, unspecified (principal); N18.9 Chronic kidney disease, unspecified; I48.91 Unspecified atrial fibrillation; I13.10 Hypertensive heart and chronic kidney disease without heart failure, with stage 1 through stage 4 chronic kidney disease, or unspecified chronic kidney disease; E78.5 Hyperlipidemia, unspecified; I25.2 Old myocardial infarction; M10.9 Gout, unspecified; G47.30 Sleep apnea, unspecified; Z95.0 Presence of cardiac pacemaker; Z87.891 Personal history of nicotine dependence; Z79.01 Long term (current) use of anticoagulants; Z79.82 Long term (current) use of aspirin; Z79.899 Other long term (current) drug therapy; Z95.5 Presence of coronary angioplasty implant and graft; Z99.89 Dependence on other enabling machines and devices; Z82.49 Family history of ischemic heart disease and other diseases of the circulatory system
CPT/HCPCS: 36415; 71046; 80053; 81003; 85025; 87502; 94640; 96360; 99284

== ENCOUNTER 2019-04-20 08:50 | Inpatient (IN) | payer MEDICARE, BC ==
[2019-04-20] MEDS ORDERED: IPRATROPIUM-ALBUTEROL 3 ML NEB INHALATION STA ×3 (09:04→11:56)
[2019-04-20] MEDS ORDERED: methylPREDNISolone SOD SUCCI 125 MG/2 ML VIAL IV STA (09:04)
[2019-04-20] MEDS ORDERED: SODIUM CHLORIDE 0.9% 1,000 ML IV STA (09:04)
--- NOTE | 2019-04-20 09:07 | ED ---
SOB HPI - General Chief Complaint: Shortness of Breath Stated Complaint: congestion/facial swelling/SOB Time Seen by Provider: 04/20/19 08:58 Source: patient, RN notes reviewed Mode of arrival: ambulatory Limitations: no limitations - History of Present Illness Initial Comments: This is a 78-year-old male with a history of pacemaker history of smoking which he quit 30 years ago who does use a CPAP mask at night who states he woke up this morning very short of breath and demonstrating exertional dyspnea he also states he has had a bit of swelling around his face and some nasal congestion. He does state also is been having some milder exertional dyspnea especially when he bends over or past several days. No overt chest pain no fevers chills or s weats slight cough no phlegm color. No peripheral edema no other modifying factors MD Complaint: shortness of breath - Related Data Home Medications Medication Instructions Recorded Confirmed Allopurinol [Zyloprim] 300 mg PO DAILY 07/21/14 04/20/19 Ascorbic Acid [Vitamin C] 1,000 mg PO DAILY 07/21/14 04/20/19 Atorvastatin [Lipitor] 40 mg PO HS 07/21/14 04/20/19 Warfarin [Coumadin] 1 mg PO SUWE 07/21/14 04/20/19 Warfarin [Coumadin] 1.5 mg PO MOTUTHFRSA 07/21/14 04/20/19 Multivitamins, Thera [Multivitamin 1 tab PO DAILY 05/04/16 04/20/19 (formulary)] Aspirin EC [Ecotrin Low Dose] 81 mg PO HS 08/22/18 04/20/19 Loratadine [Claritin] 10 mg PO DAILY 08/22/18 04/20/19 Furosemide [Lasix] 40 mg PO BID 09/22/18 04/20/19 Potassium Chloride ER [K-Dur 20] 20 meq PO DAILY 09/22/18 04/20/19 Metoprolol Tartrate [Lopressor] 25 mg PO DAILY 04/20/19 04/20/19 Previous Rx's Medication Instructions Recorded Losartan Potassium [Cozaar] 100 mg PO DAILY #30 tab 05/06/16 amLODIPine BESYLATE [Norvasc] 10 mg PO HS #30 tablet 05/06/16 Allergies Allergy/AdvReac Type Severity Reaction Status Date / Time No Known Allergies Allergy Verified 04/20/19 10:14 Review of Systems ROS Statement: Those systems with pertinent positive or pertinent negative responses have been documented in the HPI. ROS Other: All systems not noted in ROS Statement are negative. Past Medical History Past Medical History: Atrial Fibrillation, Chest Pain / Angina, Hyperlipidemia, Hypertension, Myocardial Infarction ([place]), Pneumonia, Prostate Disorder, Sleep Apnea/CPAP/BIPAP Additional Past Medical History / Comment(s): gout, uses CPAP, pulmonary hypertension, "leaky valve Last Myocardial Infarction Date:: 2001 History of Any Multi-Drug Resistant Organisms: None Reported Past Surgical History: Appendectomy, Heart Catheterization With Stent, Orthopedic Surgery, Pacemaker Additional Past Surgical History / Comment(s): ORIF rt elbow and wrist, septal occluder for heart valve Past Anesthesia/Blood Transfusion Reactions: Motion Sickness Date of Last Stent Placement:: 10/2012 Type of Cardiac Device: Permanent Pacemaker Device Placement Date:: 2016 Past Psychological History: No Psychological Hx Reported Smoking Status: Former smoker Past Alcohol Use History: None Reported Past Drug Use History: None Reported - Past Family History Father Additional Family Medical History / Comment(s): Father had heart problems. Mother Family Medical History: AFIB Additional Family Medical History / Comment(s): Mother had heart problems. Sister(s) Family Medical History: Cancer General Exam - General Exam Comments Initial Comments: this is a well-developed well-nourished awake alert oriented times 3 male Limitations: no limitations General appearance: alert, anxious Head exam: Present: atraumatic, normocephalic, normal inspection Eye exam: Present: normal appearance, PERRL, EOMI. Absent: scleral icterus, conjunctival injection, periorbital swelling ENT exam: Present: mucous membranes dry, TM's normal bilaterally Neck exam: Present: normal inspection, full ROM, other (stridor JVD or bruits). Absent: tenderness, meningismus, lymphadenopathy Respiratory exam: Present: wheezes, decreased breath sounds. Absent: respiratory distress, rales, rhonchi, stridor Cardiovascular Exam: Present: regular rate, normal rhythm, normal heart sounds. Absent: systolic murmur, diastolic murmur, rubs, gallop, clicks GI/Abdominal exam: Present: soft, normal bowel sounds. Absent: distended, tenderness, guarding, rebound, rigid Extremities exam: Present: normal inspection, full ROM, normal capillary refill. Absent: tenderness, pedal edema, joint swelling, calf tenderness Back exam: Present: normal inspection Neurological exam: Present: alert, oriented X3, CN II-XII intact Psychiatric exam: Present: normal affect, normal mood Skin exam: Present: warm, dry, intact, normal color. Absent: rash Course Vital Signs 04/20/19 04/20/19 04/20/19 08:53 09:03 09:30 Temperature 97.4 F L Pulse Rate 67 59 L Respiratory 20 16 Rate Blood Pressure 150/68 136/66 O2 Sat by Pulse 94 L 97 98 Oximetry 04/20/19 04/20/19 04/20/19 09:34 09:35 09:37 Temperature Pulse Rate 59 L Respiratory 20 Rate Blood Pressure O2 Sat by Pulse 95 Oximetry 04/20/19 04/20/19 04/20/19 09:43 10:00 10:30 Temperature Pulse Rate 59 L 58 L 59 L Respiratory 17 19 Rate Blood Pressure 125/72 137/66 O2 Sat by Pulse 94 L 95 Oximetry 04/20/19 04/20/19 04/20/19 11:14 11:23 11:28 Temperature Pulse Rate 64 66 66 Respiratory 18 Rate Blood Pressure 135/66 O2 Sat by Pulse 96 Oximetry - Reevaluation(s) Reevaluation #1: 04/20/19 11:46 Patient continues be dyspneic and does drop his oxygen saturation with minimal exertion off oxygen. He also demonstrates evidence of CHF he will be admitted the case is discussed with Dr. Mondragon Medical Decision Making - Medical Decision Making reevaluation the patient reveals persistent dyspnea and hypoxemia on room air in spite of treatment. I did a long discussion with the patient family regarding findings patient be admitted his with Dr. Mondragon. Ulnar minutes will be consulted - Lab Data Result diagrams: 04/20/19 09:20 04/20/19 09:20 Lab Results 04/20/19 04/20/19 04/20/19 Range/Units 09:20 09:20 09:20 WBC 7.2 (3.8-10.6) k/uL RBC 3.51 L (4.30-5.90) m/uL Hgb 11.1 L (13.0-17.5) gm/dL Hct 33.8 L (39.0-53.0) % MCV 96.1 (80.0-100.0) fL MCH 31.6 (25.0-35.0) pg MCHC 32.8 (31.0-37.0) g/dL RDW 15.5 (11.5-15.5) % Plt Count 147 L (150-450) k/uL Neutrophils % 80 % Lymphocytes % 8 % Monocytes % 7 % Eosinophils % 2 % Basophils % 0 % Neutrophils # 5.7 (1.3-7.7) k/uL Lymphocytes # 0.6 L (1.0-4.8) k/uL Monocytes # 0.5 (0-1.0) k/uL Eosinophils # 0.2 (0-0.7) k/uL Basophils # 0.0 (0-0.2) k/uL Hypochromasia Slight PT 28.1 H (9.0-12.0) sec INR 2.9 H (<1.2) APTT 43.2 H (22.0-30.0) sec D-Dimer 0.25 (<0.60) mg/L FEU Sodium 143 (137-145) mmol/L Potassium 4.2 (3.5-5.1) mmol/L Chloride 110 H (98-107) mmol/L Carbon Dioxide 25 (22-30) mmol/L Anion Gap 8 mmol/L BUN 53 H (9-20) mg/dL Creatinine 1.80 H (0.66-1.25) mg/dL Est GFR (CKD-EPI)AfAm 40 (>60 ml/min/1.73 sqM) Est GFR (CKD-EPI)NonAf 35 (>60 ml/min/1.73 sqM) Glucose 80 (74-99) mg/dL Calcium 8.8 (8.4-10.2) mg/dL Magnesium 2.4 H (1.6-2.3) mg/dL Total Bilirubin 0.7 (0.2-1.3) mg/dL AST 37 (17-59) U/L ALT 19 (4-49) U/L Alkaline Phosphatase 91 (38-126) U/L Creatine Kinase 80 (55-170) U/L Troponin I (0.000-0.034) ng/mL NT-Pro-B Natriuret Pep pg/mL Total Protein 6.4 (6.3-8.2) g/dL Albumin 3.8 (3.5-5.0) g/dL 04/20/19 04/20/19 Range/Units 09:20 09:20 WBC (3.8-10.6) k/uL RBC (4.30-5.90) m/uL Hgb (13.0-17.5) gm/dL Hct (39.0-53.0) % MCV (80.0-100.0) fL MCH (25.0-35.0) pg MCHC (31.0-37.0) g/dL RDW (11.5-15.5) % Plt Count (150-450) k/uL Neutrophils % % Lymphocytes % % Monocytes % % Eosinophils % % Basophils % % Neutrophils # (1.3-7.7) k/uL Lymphocytes # (1.0-4.8) k/uL Monocytes # (0-1.0) k/uL Eosinophils # (0-0.7) k/uL Basophils # (0-0.2) k/uL Hypochromasia PT (9.0-12.0) sec INR (<1.2) APTT (22.0-30.0) sec D-Dimer (<0.60) mg/L FEU Sodium (137-145) mmol/L Potassium (3.5-5.1) mmol/L Chloride (98-107) mmol/L Carbon Dioxide (22-30) mmol/L Anion Gap mmol/L BUN (9-20) mg/dL Creatinine (0.66-1.25) mg/dL Est GFR (CKD-EPI)AfAm (>60 ml/min/1.73 sqM) Est GFR (CKD-EPI)NonAf (>60 ml/min/1.73 sqM) Glucose (74-99) mg/dL Calcium (8.4-10.2) mg/dL Magnesium (1.6-2.3) mg/dL Total Bilirubin (0.2-1.3) mg/dL AST (17-59) U/L ALT (4-49) U/L Alkaline Phosphatase (38-126) U/L Creatine Kinase (55-170) U/L Troponin I <0.012 (0.000-0.034) ng/mL NT-Pro-B Natriuret Pep 1040 pg/mL Total Protein (6.3-8.2) g/dL Albumin (3.5-5.0) g/dL - EKG Data -: EKG Interpreted by Me EKG Comments: pacemaker rhythm a 61 appear interval 72 QRS duration 124 QT since QTC 460/463 - Radiology Data Radiology results: report reviewed (I did review the imaging and report or is evidence of pulmonary vascular congestion), image reviewed Critical Care Time Critical Care Time: Yes Critical Care Time: ready 1 minutes of critical care time which includes initial presentation with history physical labs x-rays multiple reevaluation the patient responsive therapy discuss with the patient family regarding findings discussion with the main physician admission orders neck mentation above as well as review of old charting Disposition Clinical Impression: Acute exacerbation of chronic obstructive pulmonary disease, Systolic co ngestive heart failure, Hypoxemia, Renal insufficiency Disposition: ADMITTED IP TO THIS HOSP Condition: Fair Referrals: Christin Brink MD [Primary Care Provider] - 1-2 days
[2019-04-20 09:47] LABS: Basophils % (A) 0 %; Eosinophils # (A) 0.2 k/uL (0-0.7); Eosinophils % (A) 2 %; HCT 33.8 % (39.0-53.0); HGB 11.1 gm/dL (13.0-17.5); Hypochromasia Slight; Lymphocytes # (A) 0.6 k/uL (1.0-4.8); Lymphocytes % (A) 8 %; MCH 31.6 pg (25.0-35.0); MCHC 32.8 g/dL (31.0-37.0); MCV 96.1 fL (80.0-100.0); Monocytes # (A) 0.5 k/uL (0-1.0); Monocytes % (A) 7 %; Neutrophils # (A) 5.7 k/uL (1.3-7.7); Neutrophils % (A) 80 %; Platelet Count 147 k/uL (150-450); RBC 3.51 m/uL (4.30-5.90); RDW 15.5 % (11.5-15.5); WBC 7.2 k/uL (3.8-10.6)
--- NOTE | 2019-04-20 09:57 | XR ---
EXAMINATION TYPE: XR chest 2V DATE OF EXAM: 04/20/2019 COMPARISON: 03/18/2019 HISTORY: Difficulty breathing and cough TECHNIQUE: Frontal and lateral views of the chest are obtained. FINDINGS: Cardiomediastinal silhouette is enlarged. New strand-like opacities at the lung bases and trace pleural effusions. Single lead left-sided cardiac device again noted. Atrial septal defect clos ure device is identified. Osseous structures display diffuse demineralization. IMPRESSION: New trace pleural effusions and bibasilar airspace disease, possibly atelectasis. Cardio mediastinal silhouette is enlarged. Correlate for congestive heart failure.
[2019-04-20 10:05] LABS: Albumin 3.8 g/dL (3.5-5.0); Calcium 8.8 mg/dL (8.4-10.2); Magnesium 2.4 mg/dL (1.6-2.3); Potassium 4.2 mmol/L (3.5-5.1); Total Bilirubin 0.7 mg/dL (0.2-1.3); Total Protein 6.4 g/dL (6.3-8.2)
[2019-04-20 10:09] LABS: D-Dimer 0.25 mg/L FEU (<0.60); INR 2.9 (<1.2); Partial Thromboplastin Time 43.2 sec (22.0-30.0); Prothrombin Time 28.1 sec (9.0-12.0)
[2019-04-20] MEDS ORDERED: FUROSEMIDE 10 MG/ML 4 ML VIAL IV STA (11:20)
[2019-04-20] MEDS: methylPREDNISolone SOD SUCCI 125 MG/2 ML VIAL IV SCH ×2 (12:02→17:55)
[2019-04-20] MEDS: IPRATROPIUM-ALBUTEROL 3 ML NEB INHALATION SCH ×3 (12:11→21:09)
--- NOTE | 2019-04-20 15:00 | P.HPIM ---
History of Present Illness H&P Date: 04/20/19 Chief Complaint: shortness of breath this is a 79-year-old male, a patient of Dr. Brink. He has a known past medical history of chronic atrial fibrillation antic PFO status post percutaneous closure, pacemaker placement for sick sinus syndrome, obstructive sleep apnea uses CPAPmachine, hypertension, myocardial infarction, severe pulmonary hypertension and a prior history of smoking. Patient presents to the emergency room with increasing shortness of breath over the last 2 weeks. Patient does report that his PCP had decreased his Lasix from 40 mg twice a day to once a day about a month ago. He does notice at evening time he does have some swelling in the legs. And occasionally he'll take Lasix 20 mg before bedtime. He denies any cough, fever, chills or sweats, or chest pain. patient seen in the ER. His oxygen saturation did decrease down to 88% he's currently on 2 L at 93%. He did receive a dose of IV Lasix, IV steroids and nebulizer treatments in ER for COPD exacerbation and CHF exacerbation. Both cardiology and pulmonary service has been consult. D-dimer is normal at 0.25. Creatinine elevated at 1.8 nd in December creatinine was 1.8. Patient also had reported some swelling around his nose this morning which now resolved. He denies any tongue or lip swelling. Review of Systems please refer to HPI otherwise unremarkable Past Medical History Past Medical History: Atrial Fibrillation, Coronary Artery Disease (CAD), Chest Pain / Angina, COPD, Hyperlipidemia, Hypertension, Myocardial Infarction ([place]), Osteoarthritis (OA), Pneumonia, Prostate Disorder, Respiratory Disorder, Sleep Apnea/CPAP/BIPAP Additional Past Medical History / Comment(s): Pt thinks he has had CHF in the past, leaky cardiac valve, SSS with pacer, JOSE JUAN with Cpap, bilateral pleural effusions, pulmonary HTN, elevated PSA, past gout great toes Last Myocardial Infarction Date:: 2001 History of Any Multi-Drug Resistant Organisms: None Reported Past Surgical History: Appendectomy, Heart Catheterization, Heart Catheterization With Stent, Orthopedic Surgery, Pacemaker Additional Past Surgical History / Comment(s): PCI with stents, pacemaker, percutaneous closure ASD/PFO, VAIVA, colonoscopy with bening polyps, ORIF R elbow and wrist as child. Past Anesthesia/Blood Transfusion Reactions: Motion Sickness Date of Last Stent Placement:: 10/2012 Type of Cardiac Device: Permanent Pacemaker Device Placement Date:: 2016 Smoking Status: Former smoker - Past Family History Father Additional Family Medical History / Comment(s): Father had heart problems. Mother Family Medical History: AFIB Additional Family Medical History / Comment(s): Mother had heart problems. Sister(s) Family Medical History: Cancer Additional Family Medical History / Comment(s): Breast cancer Medications and Allergies Home Medications Medication Instructions Recorded Confirmed Type Allopurinol [Zyloprim] 300 mg PO DAILY 07/21/14 04/20/19 History Ascorbic Acid [Vitamin C] 1,000 mg PO DAILY 07/21/14 04/20/19 History Atorvastatin [Lipitor] 40 mg PO HS 07/21/14 04/20/19 History Warfarin [Coumadin] 1 mg PO SUWE 07/21/14 04/20/19 History Warfarin [Coumadin] 1.5 mg PO MOTUTHFRSA 07/21/14 04/20/19 History Multivitamins, Thera [Multivitamin 1 tab PO DAILY 05/04/16 04/20/19 History (formulary)] Losartan Potassium [Cozaar] 100 mg PO DAILY #30 tab 05/06/16 04/20/19 Rx amLODIPine BESYLATE [Norvasc] 10 mg PO HS #30 tablet 05/06/16 04/20/19 Rx Aspirin EC [Ecotrin Low Dose] 81 mg PO HS 08/22/18 04/20/19 History Loratadine [Claritin] 10 mg PO DAILY 08/22/18 04/20/19 History Furosemide [Lasix] 40 mg PO BID 09/22/18 04/20/19 History Potassium Chloride ER [K-Dur 20] 20 meq PO DAILY 09/22/18 04/20/19 History Metoprolol Tartrate [Lopressor] 25 mg PO DAILY 04/20/19 04/20/19 History Allergies Allergy/AdvReac Type Severity Reaction Status Date / Time No Known Allergies Allergy Verified 04/20/19 10:14 Physical Exam Vitals: Vital Signs Temp Pulse Resp BP Pulse Ox 04/20/19 12:46 71 18 125/81 93 L 04/20/19 12:21 65 04/20/19 12:13 66 04/20/19 12:02 88 L 04/20/19 11:28 66 18 135/66 96 04/20/19 11:23 66 12/19/19 11:14 64 04/20/19 10:30 59 L 19 137/66 95 04/20/19 10:00 58 L 17 125/72 94 L 04/20/19 09:43 59 L 04/20/19 09:37 95 04/20/19 09:35 20 04/20/19 09:34 59 L 04/20/19 09:30 59 L 16 136/66 98 04/20/19 09:03 97 04/20/19 08:53 97.4 F L 67 20 150/68 94 L Intake and Output 04/19/19 04/20/19 04/20/19 22:59 06:59 14:59 Other: Weight 79.379 kg Head normocephalic. Patient has red ring from CPAP machine around his nose and chin Neck supple Lungs diminished bilaterally no wheezing or crackles noted Heart regular rate and rhythm S1-S2, no rub or gallop Abdomen is soft nontender nondistended positive bowel sounds no hepatosplenomegaly Extremities no edema Neuro alert and orientated to 3 Results CBC & Chem 7: 04/20/19 09:20 04/20/19 09:20 Labs: Abnormal Lab Results - Last 24 Hours (Table) 04/20/19 04/20/19 04/20/19 Range/Units 09:20 09:20 09:20 RBC 3.51 L (4.30-5.90) m/uL Hgb 11.1 L (13.0-17.5) gm/dL Hct 33.8 L (39.0-53.0) % Plt Count 147 L (150-450) k/uL Lymphocytes # 0.6 L (1.0-4.8) k/uL PT 28.1 H (9.0-12.0) sec INR 2.9 H (<1.2) APTT 43.2 H (22.0-30.0) sec Chloride 110 H (98-107) mmol/L BUN 53 H (9-20) mg/dL Creatinine 1.80 H (0.66-1.25) mg/dL Magnesium 2.4 H (1.6-2.3) mg/dL Thrombosis Risk Factor Assmnt - Choose All That Apply Any of the Below Risk Factors Present?: Yes Each Factor Represents 1 point: Abnormal pulmonary function (COPD), Obesity (BMI >25) Other Risk Factors: Yes Each Risk Factor Represents 3 Points: Age 75 years or older Other congenital or acquired thrombophilia - If yes, enter type in comment: No Thrombosis Risk Factor Assessment Total Risk Factor Score: 5 Thrombosis Risk Factor Assessment Level: High Risk Assessment and Plan Assessment: 1. Shortness of breath and hypoxemia likely due to acute CHF exacerbation and COPD exacerbation 2. Acute hypoxic respiratory failure:secondary to CHF exacerbation and COPD exacerbation. Patient is usually not on oxygen at home. 3. Acute on chronic diastolic CHF exacerbation: Chest x-ray showing new trace pleural effusion and bibasilar airspace disease, possibly atelectasis. Correlate for CHF. BNP 1040. Patient did receive a dose of IV Lasix in the emergency room. Lasix dose had been decreased by PCP over the last month from 40 mg twice a day to once a day. Patient did have a AVIVA completed in August 2018 EF of 50-55% moderate to severe mitral regurgitation, moderate to severe tricuspid regurgitation moderate to severe pulmonary hypertension 4. Acute COPD exacerbation: Started on IV Solu-Medrol in the ER. Pulmonary service has been consulted. Continue with DuoNeb updraft treatments 5. History of chronic atrial fibrillation anticoagulated with Coumadin. INR is 2.9. Continue monitor daily PT/INR's. Continue current Coumadin dosing 6. History of atrial septal defect status post closure in 2012 7. History of coronary artery disease status post cardiac stents 8. History of myocardial infarction 9. History of obstructive sleep apnea uses CPAP nightly. 10. Chronic kidney disease stage III. Creatinine since December is been around 1.8 11. History of moderate to severe pulmonary hypertension 12. essential hypertension: Continue current blood pressure medications Cozaar and Norvasc 13. Hyperlipidemia continue statin GI prophylaxis Pepcid and DVT prophylaxis Coumadin Time with Patient: Greater than 30 (Greater than 50% of the total time spent in counseling and coordination of care.I performed an examination of the patient and discussed their management with the physician Computer Compositor. I have reviewed the Physician Computer Compositor's notes and agree with the documented findings and plan of care)
--- NOTE | 2019-04-20 16:53 | P.CNPUL ---
History of Present Illness Consult date: 04/20/19 Reason for consult: dyspnea, COPD History of present illness: very pleasant 79-year-old male patient, coming in for exertional dyspnea. Over the past month or so, the patient has noted some worsening in his pulmonary status pressure with exertion and he was feeling some shortness of breath and congestion in his throat/upper chest area. He had some congested, unable to bring up any sputum. He had no chest pain. He has chronic swelling in lower extremities. No palpitations. He decided to come in for further evaluation. Chest x-ray was done and shows thyromegaly and engorgement of the pulmonary arteries with possibly some small bilateral pleural effusions. Otherwise no acute abnormalities noted. Note that the patient is known to have coronary artery disease and he had undergone previous coronary stenting. He has also history of atrial fibrillation. He has sick sinus syndrome and currently is a pacemaker in place. He has been maintained on long-term anticoagulation with warfarin. Upon further review, I noted that the patient has also history of hypertension, hyperlipidemia, gout, his PSA has been gradually going up and the patient is being followed up with urology in that regard. He also developed acute kidney insufficiency with a creatinine is at 1.8 and past several months his kidney function has been off lightly elevated. This current admission, the patient was found to have a therapeutic INR of 2.9. Creatinine is at 1.8 consistent with chronic stage III kidney disease. White cell count is not elevated at 7.2. His hemoglobin is at 11.1. The electrolytes are all within normal limits. His urinalysis on 03/18/2019 was within normal. she also has history of obstructive sleep apnea. He is maintained on CPAP therapy. His previous echocardiogram at shown acomponent of pulmonary hypertension with a PA pressure of [id number]. He was evaluated by Dr. Chakraborty I was asked to continue the CPAP therapy for the time being. No further interventional workup was done regarding his pulmonary hypertension. His last CAT scan of the chest Was done on August 2018 showed bilateral pleural effusion right more than left Review of Systems Constitutional: Reports weight gain, Denies chills, Denies fever Eyes: denies as per HPI, denies blurred vision, denies bulging eye, denies decreased vision, denies diplopia, denies discharge, denies dry eye, denies irritation, denies itching, denies pain, denies photophobia, denies loss of peripheral vision, denies loss of vision, denies tunnel vision/blind spots Ears, nose, mouth and throat: Reports as per HPI Breasts: absent: as per HPI, gynecomastia Cardiovascular: Reports decreased exercise tolerance Respiratory: Reports dyspnea Gastrointestinal: Reports as per HPI Genitourinary: Reports as per HPI Musculoskeletal: Reports as per HPI Musculoskeletal: bilateral: ankle swelling, absent: ankle pain, ankle stiffness Integumentary: Reports as per HPI Neurological: Reports as per HPI Psychiatric: Reports as per HPI Endocrine: Reports as per HPI Hematologic/Lymphatic: Reports as per HPI Allergic/Immunologic: Reports as per HPI Past Medical History Past Medical History: Atrial Fibrillation, Coronary Artery Disease (CAD), COPD, Hyperlipidemia, Hypertension, Myocardial Infarction ([place]), Osteoarthritis (OA), Pneumonia, Prostate Disorder, Respiratory Disorder, Sleep Apnea/CPAP/BIPAP Additional Past Medical History / Comment(s): CAD, Afib, SSS with pacer, JOSE JUAN with Cpap, secondary pulmonary HTN with PAP 65, elevated PSA, gout great toes Last Myocardial Infarction Date:: 2001 History of Any Multi-Drug Resistant Organisms: None Reported Past Surgical History: Appendectomy, Heart Catheterization, Heart Catheterization With Stent, Orthopedic Surgery, Pacemaker Additional Past Surgical History / Comment(s): PCI with stents, pacemaker, percutaneous closure ASD/PFO, AVIVA, colonoscopy with bening polyps, ORIF R elbow and wrist as child. Past Anesthesia/Blood Transfusion Reactions: Motion Sickness Date of Last Stent Placement:: 10/2012 Type of Cardiac Device: Permanent Pacemaker Device Placement Date:: 2016 Smoking Status: Former smoker (1 PPD for 15-20 years and he quit >30 years) - Past Family History Father Additional Family Medical History / Comment(s): Father had heart problems. Mother Family Medical History: AFIB Additional Family Medical History / Comment(s): Mother had heart problems. Sister(s) Family Medical History: Cancer Additional Family Medical History / Comment(s): Breast cancer Medications and Allergies Home Medications Medication Instructions Recorded Confirmed Type Allopurinol [Zyloprim] 300 mg PO DAILY 07/21/14 04/20/19 History Ascorbic Acid [Vitamin C] 1,000 mg PO DAILY 07/21/14 04/20/19 History Atorvastatin [Lipitor] 40 mg PO HS 07/21/14 04/20/19 History Warfarin [Coumadin] 1 mg PO SUWE 07/21/14 04/20/19 History Warfarin [Coumadin] 1.5 mg PO MOTUTHFRSA 07/21/14 04/20/19 History Multivitamins, Thera [Multivitamin 1 tab PO DAILY 05/04/16 04/20/19 History (formulary)] Losartan Potassium [Cozaar] 100 mg PO DAILY #30 tab 05/06/16 04/20/19 Rx amLODIPine BESYLATE [Norvasc] 10 mg PO HS #30 tablet 05/06/16 04/20/19 Rx Aspirin EC [Ecotrin Low Dose] 81 mg PO HS 08/22/18 04/20/19 History Loratadine [Claritin] 10 mg PO DAILY 08/22/18 04/20/19 History Furosemide [Lasix] 40 mg PO BID 09/22/18 04/20/19 History Potassium Chloride ER [K-Dur 20] 20 meq PO DAILY 09/22/18 04/20/19 History Metoprolol Tartrate [Lopressor] 25 mg PO DAILY 04/20/19 04/20/19 History Allergies Allergy/AdvReac Type Severity Reaction Status Date / Time No Known Allergies Allergy Verified 04/20/19 10:14 Physical Exam Vitals: Vital Signs Temp Pulse Resp BP Pulse Ox 04/20/19 12:46 71 18 125/81 93 L 04/20/19 12:21 65 04/20/19 12:13 66 04/20/19 12:02 88 L 04/20/19 11:28 66 18 135/66 96 04/20/19 11:23 66 04/20/19 11:14 64 04/20/19 10:30 59 L 19 137/66 95 04/20/19 10:00 58 L 17 125/72 94 L 04/20/19 09:43 59 L 04/20/19 09:37 95 04/20/19 09:35 20 04/20/19 09:34 59 L 04/20/19 09:30 59 L 16 136/66 98 04/20/19 09:03 97 04/20/19 08:53 97.4 F L 67 20 150/68 94 L Intake and Output 04/20/19 04/20/19 04/20/19 06:59 14:59 22:59 Other: Weight 79.379 kg Gen. appearance, comfortable likely distress currently on2 L of oxygen by nasal cannula Head exam was generally normal. There was no scleral icterus or corneal arcus. Mucous membranes were moist. Neck was supple and without jugular venous distension, thyromegaly, or carotid bruits. Carotids were easily palpable bilaterally. There was no adenopathy. Lungs sounds are diminished special lung bases otherwise clear Cardiac exam revealed the PMI to be normally situated and sized. The rhythm was regular and no extrasystoles were noted during several minutes of auscultation. The first and second heart sounds were normal and physiologic splitting of the second heart sound was noted. There were no murmurs, rubs, clicks, or gallops. Abdominal exam revealed normal bowel sounds. The abdomen was soft, non-tender, and without masses, organomegaly, or appreciable enlargement of the abdominal a cornell. extremities reveal trace edema and there is no cyanosis or clubbing. Examination of the skin revealed no evidence of significant rashes, suspicious appearing nevi or other concerning lesions. Neurologically is awake and alert and there is no focal neurological deficits. Results - Laboratory Findings CBC and BMP: 04/20/19 09:20 04/20/19 09:20 ABG WBC 7.2 k/uL (3.8-10.6) 04/20/19 09:20 RBC 3.51 m/uL (4.30-5.90) L 04/20/19 09:20 Hgb 11.1 gm/dL (13.0-17.5) L 04/20/19 09:20 Hct 33.8 % (39.0-53.0) L 04/20/19 09:20 MCV 96.1 fL (80.0-100.0) 04/20/19 09:20 MCH 31.6 pg (25.0-35.0) 04/20/19 09:20 MCHC 32.8 g/dL (31.0-37.0) 04/20/19 09:20 RDW 15.5 % (11.5-15.5) 04/20/19 09:20 Plt Count 147 k/uL (150-450) L 04/20/19 09:20 Neutrophils % 80 % 04/20/19 09:20 Lymphocytes % 8 % 04/20/19 09:20 Monocytes % 7 % 04/20/19 09:20 Eosinophils % 2 % 04/20/19 09:20 Basophils % 0 % 04/20/19 09:20 Neutrophils # 5.7 k/uL (1.3-7.7) 04/20/19 09:20 Lymphocytes # 0.6 k/uL (1.0-4.8) L 04/20/19 09:20 Monocytes # 0.5 k/uL (0-1.0) 04/20/19 09:20 Eosinophils # 0.2 k/uL (0-0.7) 04/20/19 09:20 Basophils # 0.0 k/uL (0-0.2) 04/20/19 09:20 Hypochromasia Slight 04/20/19 09:20 PT 28.1 sec (9.0-12.0) H 04/20/19 09:20 INR 2.9 (<1.2) H 04/20/19 09:20 APTT 43.2 sec (22.0-30.0) H 04/20/19 09:20 D-Dimer 0.25 mg/L FEU (<0.60) 04/20/19 09:20 Sodium 143 mmol/L (137-145) 04/20/19 09:20 Potassium 4.2 mmol/L (3.5-5.1) 04/20/19 09:20 Chloride 110 mmol/L (98-107) H 04/20/19 09:20 Carbon Dioxide 25 mmol/L (22-30) 04/20/19 09:20 Anion Gap 8 mmol/L 04/20/19 09:20 BUN 53 mg/dL (9-20) H 04/20/19 09:20 Creatinine 1.80 mg/dL (0.66-1.25) H 04/20/19 09:20 Est GFR (CKD-EPI)AfAm 40 (>60 ml/min/1.73 sqM) 04/20/19 09:20 Est GFR (CKD-EPI)NonAf 35 (>60 ml/min/1.73 sqM) 04/20/19 09:20 Glucose 80 mg/dL (74-99) 04/20/19 09:20 Calcium 8.8 mg/dL (8.4-10.2) 04/20/19 09:20 Magnesium 2.4 mg/dL (1.6-2.3) H 04/20/19 09:20 Total Bilirubin 0.7 mg/dL (0.2-1.3) 04/20/19 09:20 AST 37 U/L (17-59) 04/20/19 09:20 ALT 19 U/L (4-49) 04/20/19 09:20 Alkaline Phosphatase 91 U/L (38-126) 04/20/19 09:20 Creatine Kinase 80 U/L (55-170) 04/20/19 09:20 Troponin I <0.012 ng/mL (0.000-0.034) 04/20/19 09:20 NT-Pro-B Natriuret Pep 1040 pg/mL 04/20/19 09:20 Total Protein 6.4 g/dL (6.3-8.2) 04/20/19 09:20 Albumin 3.8 g/dL (3.5-5.0) 04/20/19 09:20 PT/INR, D-dimer PT 28.1 sec (9.0-12.0) H 04/20/19 09:20 INR 2.9 (<1.2) H 04/20/19 09:20 D-Dimer 0.25 mg/L FEU (<0.60) 04/20/19 09:20 Abnormal lab findings: Abnormal Labs 04/20/19 04/20/19 04/20/19 09:20 09:20 09:20 RBC 3.51 L Hgb 11.1 L Hct 33.8 L Plt Count 147 L Lymphocytes # 0.6 L PT 28.1 H INR 2.9 H APTT 43.2 H Chloride 110 H BUN 53 H Creatinine 1.80 H Magnesium 2.4 H - Diagnostic Findings Chest x-ray: image reviewed Assessment and Plan Plan: 1 shortness of breath, multifactorial. There is a mild component of CHF/fluid overload as the patient has increased lower extremity edema. No other obvious decompensating factor There may be a component of COPD 2 coronary artery disease with previous coronary stenting 3 chronic atrial fibrillation The patient's current rhythm is paced 4 Sick sinus syndrome , post pacemaker insertion 5 obstructive sleep apnea maintained on CPAP therapy 6 secondary pulmonary hypertension with a PA pressure estimated to be in a range of 65 mmHg 7 Chronic stage III kidney disease consider obstructive uropathy as the patient had an elevated PSA followed up by urology 8 gout 9 history of bilateral pleural effusion, not identified on the most recent chest x-ray 10 hyperlipidemia Plan agree on treatment. Restart diuretics. Continue bronchodilators. Continue steroids.cardiology consultation. Overall, status is stable and will continue to follow.
[2019-04-20] MEDS: FUROSEMIDE 40 MG TAB PO SCH (17:53)
[2019-04-20] MEDS ORDERED: WARFARIN 1 MG TAB PO ONE (18:00)
[2019-04-20] MEDS: ASPIRIN 81 MG PO SCH (20:50)
[2019-04-20] MEDS: amLODIPine 10 MG TAB PO SCH (20:50)
[2019-04-20] MEDS: ATORVASTATIN 40 MG TAB PO SCH (20:50)
[2019-04-21] MEDS: methylPREDNISolone SOD SUCCI 125 MG/2 ML VIAL IV SCH ×5 (00:04→23:36)
[2019-04-21] MEDS: IPRATROPIUM-ALBUTEROL 3 ML NEB INHALATION SCH ×6 (00:55→20:22)
[2019-04-21 07:44] LABS: Glucose,Whole Blood 230 mg/dL (75-99)
[2019-04-21 07:50] LABS: Basophils % (A) 0 %; Eosinophils % (A) 0 %; HCT 32.4 % (39.0-53.0); HGB 10.7 gm/dL (13.0-17.5); Hypochromasia Slight; Lymphocytes # (A) 0.3 k/uL (1.0-4.8); Lymphocytes % (A) 5 %; MCH 31.8 pg (25.0-35.0); MCV 96.2 fL (80.0-100.0); Mean Platelet Volume 8.9; Monocytes # (A) 0.1 k/uL (0-1.0); Monocytes % (A) 1 %; Neutrophils # (A) 6.1 k/uL (1.3-7.7); Neutrophils % (A) 93 %; Platelet Count 125 k/uL (150-450); RBC 3.37 m/uL (4.30-5.90); RDW 15.3 % (11.5-15.5); WBC 6.5 k/uL (3.8-10.6)
[2019-04-21 08:02] LABS: INR 3.5 (<1.2); Prothrombin Time 33.7 sec (9.0-12.0)
[2019-04-21 08:15] LABS: Albumin 3.6 g/dL (3.5-5.0); Calcium 8.9 mg/dL (8.4-10.2); Potassium 4.1 mmol/L (3.5-5.1); Total Bilirubin 0.6 mg/dL (0.2-1.3); Total Protein 6.3 g/dL (6.3-8.2)
[2019-04-21] MEDS: ASCORBIC ACID 500 MG TAB PO SCH (08:39)
[2019-04-21] MEDS: POTASSIUM CHLORIDE ER 20 MEQ TAB.ER PO SCH (08:39)
[2019-04-21] MEDS: ALLOPURINOL 300 MG TAB PO SCH (08:39)
[2019-04-21] MEDS: FUROSEMIDE 40 MG TAB PO SCH (08:39)
[2019-04-21] MEDS: MULTIVITAMINS, THERA 1 EACH TAB PO SCH (08:39)
[2019-04-21] MEDS: LORATADINE 10 MG TAB PO SCH (08:39)
[2019-04-21] MEDS ORDERED: METOPROLOL TARTRATE 25 MG TAB PO SCH (09:00)
[2019-04-21] MEDS ORDERED: ISOSORBIDE MONONITRATE ER 30 MG TAB.ER.24H PO SCH (09:00)
[2019-04-21] MEDS ORDERED: LOSARTAN 50 MG TAB PO SCH (09:00)
--- NOTE | 2019-04-21 11:34 | ECHOF ---
Referral Reason:check EF MEASUREMENTS -------- HEIGHT: 170.2 cm WEIGHT: 79.4 kg BP: RVIDd: 4.9 cm (< 3.3) IVSd: 1.1 cm (0.6 - 1.1) LVIDd: 3.9 cm (3.9 - 5.3) LVPWd: 1.3 cm (0.6 - 1.1) IVSs: 1.5 cm LVIDs: 2.4 cm LVPWs: 1.8 cm LAESV Index (A-L): 58.77 ml/m Ao Diam: 3.0 cm (2.0 - 3.7) AV Cusp: 2.1 cm (1.5 - 2.6) LA Diam: 4.3 cm (2.7 - 3.8) MV EXCURSION: 23.818 mm (> 18.000) MV EF SLOPE: 109 mm/s (70 - 150) EPSS: 0.4 cm MV E Bill: 1.47 m/s MV DecT: 242 ms MV A Bill: 0.47 m/s MV E/A Ratio: 3.13 AR PHT: 292 ms RAP: 20.00 mmHg RVSP: 62.47 mmHg TAPSE: 14.45 mm FINDINGS -------- Atrial fibrillation. Pacemaker This was a technically adequate study. The left ventricular size is normal. There is mild concentric left ventricular hypertrophy. Overa ll left ventricular systolic function is normal with, an EF between 55 - 60 %. There is paradoxical /dysynergic septal motion consistent with right ventricular volume overload and/or elevated right danielle tricular end-diastolic pressure. Left ventricular fillimg pressure cannot be estimated due to Atria l fibrillation. The right ventricle is severely enlarged. LA is severely dilated >40 ml/m2 The right atrium is mildly enlarged. Aortic valve is trileaflet and is mildly thickened. There is mild aortic regurgitation. The mitral valve is normal. The mitral valve leaflets are mildly thickened. Mild mitral regurgita tion is present. The tricuspid valve appears structurally normal. Severe tricuspid regurgitation present. There is moderate pulmonary hypertension. The right ventricular systolic pressure, as measured by Doppler, is 62.47mmHg. There is no pulmonic regurgitation present. The aortic root size is normal. The inferior vena cava is dilated with no significant inspiratory collapse which is consistent estima geovanni right atrial pressure of >20 mmHg. There is no pericardial effusion. CONCLUSIONS -------- 1. Atrial fibrillation. 2. Pacemaker 3. This was a technically adequate study. 4. The left ventricular size is normal. 5. There is mild concentric left ventricular hypertrophy. 6. Overall left ventricular systolic function is normal with, an EF between 55 - 60 %. 7. There is paradoxical/dysynergic septal motion consistent with right ventricular volume overload an d/or elevated right ventricular end-diastolic pressure. 8. Left ventricular fillimg pressure cannot be estimated due to Atrial fibrillation. 9. The right ventricle is severely enlarged. 10. LA is severely dilated >40 ml/m2 11. The right atrium is mildly enlarged. 12. Aortic valve is trileaflet and is mildly thickened. 13. There is mild aortic regurgitation. 14. The mitral valve is normal. 15. The mitral valve leaflets are mildly thickened. 16. Mild mitral regurgitation is present. 17. The tricuspid valve appears structurally normal. 18. Severe tricuspid regurgitation present. 19. There is moderate pulmonary hypertension. 20. The right ventricular systolic pressure, as measured by Doppler, is 62.47mmHg. 21. There is no pulmonic regurgitation present. 22. The aortic root size is normal. 23. The inferior vena cava is dilated with no significant inspiratory collapse which is consistent es timated right atrial pressure of >20 mmHg. 24. There is no pericardial effusion. [employer]SE OPERATOR: Deanne Reza RDCS
[2019-04-21 12:03] LABS: Glucose,Whole Blood 224 mg/dL (75-99)
--- NOTE | 2019-04-21 12:26 | P.CRDCN ---
History of Present Illness History of present illness: HISTORY OF PRESENTING ILLNESS This is a pleasant 79-year-old male past medical history significant for coronary artery disease, PFO status post closure device implantation, chronic persistent atrial fibrillation on long-term anticoagulation, dyslipidemia, hypertension, obstructive sleep apnea and sick sinus syndrome status post permanent pacemaker implantation. He follows in the office with Dr. Diego. We have been asked to see in consultation for shortness of breath. He states for the previous 3-4 weeks he has been experiencing an increase in exertional dyspnea. At rest he has no complaints of shortness of breath however simple activities around his house such as getting his mail cause him to become extremely short of breath. He has to take frequent rest to do simple activities. He denies any symptoms of chest discomfort. He is also experiencing some difficulties with his CPAP mask at night causing some redness and excoriation on his face. He has been waking up multiple times in the night for the past few nights secondary to discomfort from his CPAP mask. He denies dizziness, palpitations or chest discomfort. He is seen and examined resting comfortably in no acute distress. He was given one dose of IV Lasix in the emergency department and started on updraft treatments along with IV steroids 4 times a day. He states he doesn't feel much different since coming to the hospital however he has not been up and ambulating. He underwent cardiac catheterization in August 2018 revealing the right coronary artery dominant vessel with multiple cyst tenths, previously stented segments are widely patent with no more than 35% lesion in the midportion, left main free of significant disease, LAD with a focal 50% stenosis at the ostium, circumflex with a 40-50% lesion after the start the segment, stented segment is patent. At that time he also underwent a AVIVA revealing preserved LV systolic function with ejection fraction 50-55%, left and right atrium severely dilated, Amplatzer device in place with a small [id number] shunt, mild aortic regurgitation, moderate to severe mitral regurgitation, moderate to severe tricuspid regurgitation and moderate pulmonary hypertension with an RVSP of 55 mmHg. Maximum medical therapy recommended at that time. DIAGNOSTICS EKG reveals ventricular paced rhythm with underlying atrial fibrillation. Chest xray bilateral pleural effusions. Laboratory reviewed, WBC 6.5, hemoglobin 10.7, platelets 125, INR 3.5, d-dimer 0.25, sodium 139, potassium 4.1, creatinine 2.17 up from 1.8 on admission yesterday, cardiac enzymes negative 1, NT proBNP 1040. Current cardiac medications include Coumadin, Lasix 40 mg twice a day, potassium supplementation daily, losartan 100 mg daily, Lopressor 25 mg in the morning, aspirin 81 mg daily, atorvastatin 40 mg daily and amlodipine 10 mg at bedtime. REVIEW OF SYSTEMS At the time of my exam: CONSTITUTIONAL: Denies fever or chills. CARDIOVASCULAR: Denies chest pain, shortness of breath, orthopnea, PND or palpitations. RESPIRATORY: Denies cough. GASTROINTESTINAL: Denies abdominal pain, diarrhea, constipation, nausea or vomiting. MUSCULOSKELETAL: Denies myalgias. NEUROLOGIC: Denies numbness, tingling or weakness. ENDOCRINE: Denies fatigue, weight change, polydipsia or polyurina. GENITOURINARY: Denies burning, hematuria or urgency with micturation. HEMATOLOGIC: Denies history of anemia or bleeding. PHYSICAL EXAMINATION Blood pressure 116/50 heart rate 76 afebrile and maintaining oxygen saturation on nasal cannula. CONSTITUTIONAL: No apparent distress. HEENT: Head is normocephalic. Pupils are equal, round. Sclerae anicteric. Mucous membranes of the mouth are moist. No JVD. No carotid bruit. CHEST EXAMINATION: Lungs are clear to auscultation. No chest wall tenderness is noted on palpation or with deep breathing. HEART EXAMINATION: Irregular rate and rhythm. S1, S2 heard. Systolic ejection murmur at the left sternal border, no gallops or rub. ABDOMEN: Soft, nontender. Positive bowel sounds. EXTREMITIES: 2+ peripheral pulses, no lower extremity edema and no calf tenderness. NEUROLOGIC EXAMINATION: Patient is awake, alert and oriented x3. ASSESSMENT Exertional dyspnea Acute kidney injury History of coronary artery disease status post PCI Hypertension Valvular heart disease Pulmonary hypertension Chronic persistent atrial fibrillation on long-term anticoagulation History of PFO status post closure device placement Obstructive sleep apnea Sick sinus syndrome status post permanent pacemaker implantation PLAN Clinically he is euvolemic. Not in acute heart failure. Symptoms likely related to valvular heart disease and uncontrolled hypertension. With his moderate-severe MR if his blood pressures are elevated this could certainly cause his symptoms of shortness of breath. Increase his beta shila to BID. Follow up with Dr. Diego upon discharge. Thank you kindly for this consultation. Nurse Practitioner note has been reviewed, I agree with a documented findings and plan of care. Patient was seen and examined. Past Medical History Past Medical History: Atrial Fibrillation, Coronary Artery Disease (CAD), COPD, Hyperlipidemia, Hypertension, Myocardial Infarction (OR), Osteoarthritis (OA), Pneumonia, Prostate Disorder, Respiratory Disorder, Sleep Apnea/CPAP/BIPAP Additional Past Medical History / Comment(s): CAD, Afib, SSS with pacer, JOSE JUAN with Cpap, secondary pulmonary HTN with PAP 65, elevated PSA, gout great toes Last Myocardial Infarction Date:: 2001 History of Any Multi-Drug Resistant Organisms: None Reported Past Surgical History: Appendectomy, Heart Catheterization, Heart Ca theterization With Stent, Orthopedic Surgery, Pacemaker Additional Past Surgical History / Comment(s): PCI with stents, pacemaker, percutaneous closure ASD/PFO, AVIVA, colonoscopy with bening polyps, ORIF R elbow and wrist as child. Past Anesthesia/Blood Transfusion Reactions: Motion Sickness Date of Last Stent Placement:: 10/2012 Type of Cardiac Device: Permanent Pacemaker Device Placement Date:: 2016 Smoking Status: Former smoker (1 PPD for 15-20 years and he quit >30 years) - Past Family History Father Additional Family Medical History / Comment(s): Father had heart problems. Mother Family Medical History: AFIB Additional Family Medical History / Comment(s): Mother had heart problems. Sister(s) Family Medical History: Cancer Additional Family Medical History / Comment(s): Breast cancer Medications and Allergies Home Medications Medication Instructions Recorded Confirmed Type Allopurinol [Zyloprim] 300 mg PO DAILY 07/21/14 04/20/19 History Ascorbic Acid [Vitamin C] 1,000 mg PO DAILY 07/21/14 04/20/19 History Atorvastatin [Lipitor] 40 mg PO HS 07/21/14 04/20/19 History Warfarin [Coumadin] 1 mg PO SUWE 07/21/14 04/20/19 History Warfarin [Coumadin] 1.5 mg PO MOTUTHFRSA 07/21/14 04/20/19 History Multivitamins, Thera [Multivitamin 1 tab PO DAILY 05/04/16 04/20/19 History (formulary)] Losartan Potassium [Cozaar] 100 mg PO DAILY #30 tab 05/06/16 04/20/19 Rx amLODIPine BESYLATE [Norvasc] 10 mg PO HS #30 tablet 05/06/16 04/20/19 Rx Aspirin EC [Ecotrin Low Dose] 81 mg PO HS 08/22/18 04/20/19 History Loratadine [Claritin] 10 mg PO DAILY 08/22/18 04/20/19 History Furosemide [Lasix] 40 mg PO BID 09/22/18 04/20/19 History Potassium Chloride ER [K-Dur 20] 20 meq PO DAILY 09/22/18 04/20/19 History Metoprolol Tartrate [Lopressor] 25 mg PO DAILY 04/20/19 04/20/19 History Allergies Allergy/AdvReac Type Severity Reaction Status Date / Time No Known Allergies Allergy Verified 04/20/19 10:14 Physical Exam Vitals: Vital Signs Temp Pulse Pulse Resp BP BP Pulse Ox 04/21/19 07:20 97.5 F L 74 17 116/50 94 L 04/21/19 04:04 75 16 04/21/19 03:55 70 16 04/21/19 01:05 72 18 04/21/19 00:55 71 16 04/21/19 00:47 97.7 F 72 16 114/57 90 L 04/20/19 21:22 68 04/20/19 21:12 66 04/20/19 19:54 98.1 F 71 16 148/74 95 04/20/19 17:00 97.4 F L 74 17 125/52 94 L 04/20/19 16:55 74 04/20/19 16:46 75 04/20/19 12:46 71 18 125/81 93 L 04/20/19 12:21 65 04/20/19 12:13 66 04/20/19 12:02 88 L 04/20/19 11:28 66 18 135/66 96 04/20/19 11:23 66 04/20/19 11:14 64 04/20/19 10:30 59 L 19 137/66 95 04/20/19 10:00 58 L 17 125/72 94 L 04/20/19 09:43 59 L 04/20/19 09:37 95 04/20/19 09:35 20 04/20/19 09:34 59 L 04/20/19 09:30 59 L 16 136/66 98 04/20/19 09:03 97 04/20/19 08:53 97.4 F L 67 20 150/68 94 L Intake and Output 04/20/19 04/21/19 04/21/19 22:59 06:59 14:59 Intake Total 270 Balance 270 Intake: Oral 270 Other: Voiding Method Toilet # Voids 2 Results 04/21/19 07:25 04/21/19 07:25 Cardiac Enzymes 04/20/19 04/20/19 04/21/19 Range/Units 09:20 09:20 07:25 AST 37 37 (17-59) U/L Troponin I <0.012 (0.000-0.034) ng/mL Coagulation 04/20/19 04/21/19 Range/Units 09:20 07:25 PT 28.1 H 33.7 H (9.0-12.0) sec APTT 43.2 H (22.0-30.0) sec CBC 04/20/19 04/21/19 Range/Units 09:20 07:25 WBC 7.2 6.5 (3.8-10.6) k/uL RBC 3.51 L 3.37 L (4.30-5.90) m/uL Hgb 11.1 L 10.7 L (13.0-17.5) gm/dL Hct 33.8 L 32.4 L (39.0-53.0) % Plt Count 147 L 125 L (150-450) k/uL Comprehensive Metabolic Panel 04/20/19 04/21/19 Range/Units 09:20 07:25 Sodium 143 139 (137-145) mmol/L Potassium 4.2 4.1 (3.5-5.1) mmol/L Chloride 110 H 107 (98-107) mmol/L Carbon Dioxide 25 17 L (22-30) mmol/L BUN 53 H 66 H (9-20) mg/dL Creatinine 1.80 H 2.17 H (0.66-1.25) mg/dL Glucose 80 206 H (74-99) mg/dL Calcium 8.8 8.9 (8.4-10.2) mg/dL AST 37 37 (17-59) U/L ALT 19 19 (4-49) U/L Alkaline Phosphatase 91 79 (38-126) U/L Total Protein 6.4 6.3 (6.3-8.2) g/dL Albumin 3.8 3.6 (3.5-5.0) g/dL Current Medications Generic Name Dose Route Start Last Admin Trade Name Yaneli PRN Reason Stop Dose Admin Albuterol/Ipratropium 3 ml 04/20/19 12:00 04/21/19 03:54 Duoneb 0.5 Mg-3 Mg/3 Ml Soln INHALATION 3 ml RT-Q4H PHIL Administration Allopurinol 300 mg 04/21/19 09:00 Zyloprim PO DAILY [facility] Amlodipine Besylate 10 mg 04/20/19 21:00 04/20/19 20:50 Norvasc PO 10 mg HS PHIL Administration Ascorbic Acid 1,000 mg 04/21/19 09:00 Vitamin C PO DAILY [facility] Aspirin 81 mg 04/20/19 21:00 04/20/19 20:50 Aspirin PO 81 mg HS PHIL Administration Atorvastatin Calcium 40 mg 04/20/19 21:00 04/20/19 20:50 Lipitor PO 40 mg HS PHIL Administration Furosemide 40 mg 04/20/19 16:00 04/20/19 17:53 Lasix PO 40 mg BID@0900,1600 [facility] Administration Loratadine 10 mg 04/21/19 09:00 Claritin PO DAILY [facility] Losartan Potassium 100 mg 04/21/19 09:00 Cozaar PO DAILY [facility] Methylprednisolone Sodium Succinate 60 mg 04/20/19 12:00 04/21/19 05:26 Solu-Medrol IV 60 mg Q6HR PHIL Administration Metoprolol Tartrate 25 mg 04/21/19 09:00 Lopressor PO DAILY [facility] Miscellaneous Information 0 each 04/21/19 08:06 Coumadin Per Pharmacy MISCELLANE DIRECTED PRN A FIB Multivitamins 1 each 04/21/19 09:00 Theragran PO DAILY [facility] Potassium Chloride 20 meq 04/21/19 09:00 K-Dur 20 PO DAILY [facility] Warfarin Sodium 0 mg 04/21/19 18:00 Coumadin PO 04/21/19 18:01 ONCE@1800 ONE Intake and Output 04/20/19 04/21/19 04/21/19 22:59 06:59 14:59 Intake Total 270 Balance 270 Intake: Oral 270 Other: Voiding Method Toilet # Voids 2 04/21/19 07:25 04/21/19 07:25
--- NOTE | 2019-04-21 12:59 | P.PN ---
Subjective Progress Note Date: 04/21/19 this is a 79-year-old male, a patient of Dr. Brink. He has a known past medical history of chronic atrial fibrillation antic PFO status post percutaneous closure, pacemaker placement for sick sinus syndrome, obstructive sleep apnea uses CPAPmachine, hypertension, myocardial infarction, severe pulmonary hypertension and a prior history of smoking. Patient presents to the emergency room with increasing shortness of breath over the last 2 weeks. Patient does report that his PCP had decreased his Lasix from 40 mg twice a day to once a day about a month ago. He does notice at evening time he does have some swelling in the legs. And occasionally he'll take Lasix 20 mg before bedtime. He denies any cough, fever, chills or sweats, or chest pain. patient seen in the ER. His oxygen saturation did decrease down to 88% he's currently on 2 L at 93%. He did receive a dose of IV Lasix, IV steroids and nebulizer treatments in ER for COPD exacerbation and CHF exacerbation. Both cardiology and pulmonary service has been consult. D-dimer is normal at 0.25. Creatinine elevated at 1.8 nd in December creatinine was 1.8. Patient also had reported some swelling around his nose this morning which now resolved. He denies any tongue or lip swelling. 04/21/2019 patient still reporting some shortness of breath. Still on 3 L of oxygen. He has been seen by both cardiology and pulmonary service. Patient denies any chest pain, nausea or vomiting bowel movement changes or urinary symptoms. Creatinine is up to 2.17. Patient is having hyperglycemia secondary to steroids insulin sliding scale has been added. Objective - Vital Signs Vital signs: Vital Signs Temp 97.5 F L 04/21/19 07:20 Pulse 76 04/21/19 08:50 Resp 17 04/21/19 07:20 BP 116/50 04/21/19 07:20 Pulse Ox 94 L 04/21/19 07:20 Intake & Output 04/20/19 04/21/19 04/21/19 18:59 06:59 18:59 Intake Total 250 20 200 Balance 250 20 200 Weight 79.379 kg Intake: Oral 250 20 200 Other: Voiding Method Toilet # Voids 0 2 - Exam Head normocephalic Neck supple Lungs clear to auscultation bilaterally no wheezing or crackles Heart regular rate and rhythm S1-S2, no rub or gallop Abdomen is soft nontender nondistended positive bowel sounds no hepatosplenomegaly Extremities no edema Neuro alert and orientated to 3 - Labs CBC & Chem 7: 04/21/19 07:25 04/21/19 07:25 Labs: Abnormal Lab Results - Last 24 Hours (Table) 04/21/19 04/21/19 04/21/19 Range/Units 07:22 07:25 07:25 RBC 3.37 L (4.30-5.90) m/uL Hgb 10.7 L (13.0-17.5) gm/dL Hct 32.4 L (39.0-53.0) % Plt Count 125 L (150-450) k/uL Lymphocytes # 0.3 L (1.0-4.8) k/uL PT 33.7 H (9.0-12.0) sec INR 3.5 H (<1.2) Carbon Dioxide (22-30) mmol/L BUN (9-20) mg/dL Creatinine (0.66-1.25) mg/dL Glucose (74-99) mg/dL POC Glucose (mg/dL) 230 H (75-99) mg/dL 04/21/19 Range/Units 07:25 RBC (4.30-5.90) m/uL Hgb (13.0-17.5) gm/dL Hct (39.0-53.0) % Plt Count (150-450) k/uL Lymphocytes # (1.0-4.8) k/uL PT (9.0-12.0) sec INR (<1.2) Carbon Dioxide 17 L (22-30) mmol/L BUN 66 H (9-20) mg/dL Creatinine 2.17 H (0.66-1.25) mg/dL Glucose 206 H (74-99) mg/dL POC Glucose (mg/dL) (75-99) mg/dL Assessment and Plan Assessment: 1. Shortness of breath and hypoxemia likely multifactorial. Per cardiology symptoms are likely related to his valvular heart disease and uncontrolled hypertension. cardiology has increased the Lopressor from 25 mg once a day to twice a day. symptoms also could be related to CHF exacerbation and possible COPD. Patient has been seen by both cardiology and pulmonary services. Cardiology has cleared patient for discharge 2. Acute hypoxic respiratory failure:secondary to CHF exacerbation and COPD exacerbation. Patient is usually not on oxygen at home. 3. Acute on chronic diastolic CHF exacerbation: Chest x-ray showing new trace pleural effusion and bibasilar airspace disease, possibly atelectasis. C orrelate for CHF. BNP 1040. Patient did receive a dose of IV Lasix in the emergency room. Lasix dose had been decreased by PCP over the last month from 40 mg twice a day to once a day. Echo completed showing an EF of 55-60%. Left atrium severely dilated, severe tricuspid regurgitation, mild aortic regurgitation, mild mitral regurgitation and moderate pulmonary hypertension. Patient seen by cardiology services 4. Acute COPD exacerbation: continue IV Solu-Medrol. Continue DuoNeb updrafts. Pulmonary following 5. History of chronic atrial fibrillation anticoagulated with Coumadin. INR Is 3.5. Pharmacy dosing Coumadin. No Coumadin scheduled for tonight. 6. History of atrial septal defect status post closure in 2012 7. History of coronary artery disease status post cardiac stents 8. History of myocardial infarction 9. History of obstructive sleep apnea uses CPAP nightly. 10. Chronic kidney disease stage III. Creatinine since December is been around 1.8. concerns for possible obstructive uropathy due to patient's history of elevated PSA. He does follow with Dr. Morataya. We'll check kidney ultrasound. Check postvoid residuals. 11. History of moderate to severe pulmonary hypertension 12. essential hypertension: Continue current blood pressure medications Cozaar a nd Norvasc 13. Hyperlipidemia continue statin 14. acute kidney injury due to diuretics. We'll decrease Lasix from 40 mg by mouth twice a day to once a day.epeat labs in a.m. 15. Patient now complaining of cough with some sputum production. We'll start Rocephin 1 g daily. Check sputum culture Consult PT OT Try to wean patient off of oxygen. Try to keep oxygen saturations greater than 92% GI prophylaxis Pepcid and DVT prophylaxis Coumadin I performed an examination of the patient and discussed their management with the physician Supervisor Road Administrator. I have reviewed the Physician Supervisor Road Administrator's notes and agree with the documented findings and plan of care
[2019-04-21] MEDS: INSULIN ASPART (NovoLOG) 100 UNIT/ML VIAL SQ SCH ×3 (13:15→20:45)
--- NOTE | 2019-04-21 13:40 | US ---
EXAMINATION TYPE: US kidneys/renal and bladder DATE OF EXAM: 04/21/2019 COMPARISON: NONE CLINICAL HISTORY: Chronic kidney disease, elevated PSA. Chronic Kidney Disease EXAM MEASUREMENTS: Right Kidney: 10.4 x 4.2 x 4.4 cm Left Kidney: 9.6 x 5.3 x 4.6 cm Right Kidney: Appeared wnl Left Kidney: No evidence of hydro, possible renal calculus lower pole= 0.8 cm Bladder: wnl Bilateral Jets seen: No IMPRESSION: 1. Normal renal ultrasound 2. Prostate is prominent
--- NOTE | 2019-04-21 14:49 | P.PN ---
Subjective Progress Note Date: 04/21/19 very pleasant 79-year-old male patient, coming in for exertional dyspnea. Over the past month or so, the patient has noted some worsening in his pulmonary status pressure with exertion and he was feeling some shortness of breath and congestion in his throat/upper chest area. He had some congested, unable to bring up any sputum. He had no chest pain. He has chronic swelling in lower extremities. No palpitations. He decided to come in for further evaluation. Chest x-ray was done and shows thyromegaly and engorgement of the pulmonary arteries with possibly some small bilateral pleural effusions. Otherwise no acute abnormalities noted. Note that the patient is known to have coronary artery disease and he had undergone previous coronary stenting. He has also history of atrial fibrillation. He has sick sinus syndrome and currently is a pacemaker in place. He has been maintained on long-term anticoagulation with warfarin. Upon further review, I noted that the patient has also history of hypertension, hyperlipidemia, gout, his PSA has been gradually going up and the patient is being followed up with urology in that regard. He also developed acute kidney insufficiency with a creatinine is at 1.8 and past several months his kidney function has been off lightly elevated. This current admission, the patient was found to have a therapeutic INR of 2.9. Creatinine is at 1.8 consistent with chronic stage III kidney disease. White cell count is not chari vated at 7.2. His hemoglobin is at 11.1. The electrolytes are all within normal limits. His urinalysis on 03/18/2019 was within normal. she also has history of obstructive sleep apnea. He is maintained on CPAP therapy. His previous echocardiogram at shown acomponent of pulmonary hypertension with a PA pressure of around 65. He was evaluated by Dr. Chakraborty I was asked to continue the CPAP therapy for the time being. No further interventional workup was done regarding his pulmonary hypertension. His last CAT scan of the chest Was done on August 2018 showed bilateral pleural effusion right more than left On today's evaluation of 22,019 and seeing the patient for a follow-up. He still reported some limited congestion. No angina. No palpitations. No chest pain. He was placed on oral Lasix. Chest x-ray was reviewed and there is some mild pulmonary vascular congestion. Lower sodium is improved. Echocardiogram showed an EF of around 55-60% and the patient has severe pulmonary hypertension with a pressure of 67 and his RV is quite dilated at this point in time and he has signs of right-sided heart failure along with mild concentric LVH. Objective - Vital Signs Vital signs: Vital Signs Temp 97.5 F L 04/21/19 07:20 Pulse 72 04/21/19 12:24 Resp 17 04/21/19 07:20 BP 116/50 04/21/19 07:20 Pulse Ox 94 L 04/21/19 07:20 Intake & Output 04/20/19 04/21/19 04/21/19 18:59 06:59 18:59 Intake Total 250 20 200 Balance 250 20 200 Weight 79.379 kg Intake: Oral 250 20 200 Other: Voiding Method Toilet # Voids 0 2 - Exam Gen. appearance, comfortable likely distress currently on2 L of oxygen by nasal cannula Head exam was generally normal. There was no scleral icterus or corneal arcus. Mucous membranes were moist. Neck was supple and without jugular venous distension, thyromegaly, or carotid bruits. Carotids were easily palpable bilaterally. There was no adenopathy. Lungs sounds are diminished special lung bases otherwise clear Cardiac exam revealed the PMI to be normally situated and sized. The rhythm was regular and no extrasystoles were noted during several minutes of auscultation. The first and second heart sounds were normal and physiologic splitting of the second heart sound was noted. There were no murmurs, rubs, clicks, or gallops. Abdominal exam revealed normal bowel sounds. The abdomen was soft, non-tender, and without masses, organomegaly, or appreciable enlargement of the abdominal aorta. extremities reveal trace edema and there is no cyanosis or clubbing. Examination of the skin revealed no evidence of significant rashes, suspicious appearing nevi or other concerning lesions. Neurologically is awake and alert and there is no focal neurological deficits. - Labs CBC & Chem 7: 04/21/19 07:25 04/21/19 07:25 Labs: Abnormal Lab Results - Last 24 Hours (Table) 04/21/19 04/21/19 04/21/19 Range/Units 07:22 07:25 07:25 RBC 3.37 L (4.30-5.90) m/uL Hgb 10.7 L (13.0-17.5) gm/dL Hct 32.4 L (39.0-53.0) % Plt Count 125 L (150-450) k/uL Lymphocytes # 0.3 L (1.0-4.8) k/uL PT 33.7 H (9.0-12.0) sec INR 3.5 H (<1.2) Carbon Dioxide (22-30) mmol/L BUN (9-20) mg/dL Creatinine (0.66-1.25) mg/dL Glucose (74-99) mg/dL POC Glucose (mg/dL) 230 H (75-99) mg/dL 04/21/19 04/21/19 Range/Units 07:25 12:02 RBC (4.30-5.90) m/uL Hgb (13.0-17.5) gm/dL Hct (39.0-53.0) % Plt Count (150-450) k/uL Lymphocytes # (1.0-4.8) k/uL PT (9.0-12.0) sec INR (<1.2) Carbon Dioxide 17 L (22-30) mmol/L BUN 66 H (9-20) mg/dL Creatinine 2.17 H (0.66-1.25) mg/dL Glucose 206 H (74-99) mg/dL POC Glucose (mg/dL) 224 H (75-99) mg/dL Assessment and Plan Plan: 1 shortness of breath, multifactorial. There is a mild component of CHF/fluid overload as the patient has increased lower extremity edema. No other obvious decompensating factor There may be a component of COPD 2 coronary artery disease with previous coronary stenting 3 chronic atrial fibrillation The patient's current rhythm is paced 4 Sick sinus syndrome , post pacemaker insertion 5 obstructive sleep apnea maintained on CPAP therapy 6 secondary pulmonary hypertension with a PA pressure estimated to be in a range of 65 mmHg 7 Chronic stage III kidney disease consider obstructive uropathy as the patient had an elevated PSA followed up by urology 8 gout 9 history of bilateral pleural effusion, not identified on the most recent chest x-ray 10 hyperlipidemia Plan clinically somewhat improved. Still having some limited shortness of breath. Continue oral Lasix. Continued IV Solu-Medrol and taper the patient a prednisone burst taper as of tomorrow. Echo was reviewed. There is severe pulmonary hypertension which is chronic and the patient has been seeing a pulmonary hypertension specialist on outpatient basis. Plant Electrical Engineer input is appreciated. We'll continue to follow.
[2019-04-21 15:24] VITALS: BMI 27.3
[2019-04-21 17:02] LABS: Glucose,Whole Blood 169 mg/dL (75-99)
[2019-04-21] MEDS ORDERED: WARFARIN 0.5 MG TAB PO ONE (18:00)
[2019-04-21] MEDS ORDERED: WARFARIN 1.5 MG TAB PO SCH (18:00)
[2019-04-21 20:38] LABS: Glucose,Whole Blood 221 mg/dL (75-99)
[2019-04-21] MEDS: ATORVASTATIN 40 MG TAB PO SCH (20:46)
[2019-04-21] MEDS: METOPROLOL TARTRATE 25 MG TAB PO SCH (20:46)
[2019-04-21] MEDS: ASPIRIN 81 MG PO SCH (20:46)
[2019-04-21] MEDS: amLODIPine 10 MG TAB PO SCH (20:46)
[2019-04-22] MEDS: IPRATROPIUM-ALBUTEROL 3 ML NEB INHALATION SCH ×6 (00:18→19:15)
[2019-04-22] MEDS: methylPREDNISolone SOD SUCCI 125 MG/2 ML VIAL IV SCH ×2 (05:11→12:27)
[2019-04-22 07:02] LABS: Glucose,Whole Blood 198 mg/dL (75-99)
[2019-04-22 07:43] LABS: Albumin 3.5 g/dL (3.5-5.0); Calcium 8.8 mg/dL (8.4-10.2); Potassium 4.9 mmol/L (3.5-5.1); Total Bilirubin 0.4 mg/dL (0.2-1.3); Total Protein 6.1 g/dL (6.3-8.2)
[2019-04-22 07:55] LABS: Basophils % (A) 0 %; Eosinophils % (A) 0 %; HCT 31.3 % (39.0-53.0); HGB 10.3 gm/dL (13.0-17.5); Lymphocytes # (A) 0.2 k/uL (1.0-4.8); Lymphocytes % (A) 2 %; MCH 31.5 pg (25.0-35.0); MCV 95.7 fL (80.0-100.0); Mean Platelet Volume 9.3; Monocytes # (A) 0.2 k/uL (0-1.0); Monocytes % (A) 3 %; Neutrophils # (A) 9.5 k/uL (1.3-7.7); Neutrophils % (A) 95 %; Platelet Count 132 k/uL (150-450); RBC 3.27 m/uL (4.30-5.90); RDW 15.5 % (11.5-15.5)
[2019-04-22 08:00] LABS: INR 4.5 (<1.2)
[2019-04-22] MEDS ORDERED: FUROSEMIDE 40 MG TAB PO SCH (09:00)
[2019-04-22] MEDS: MULTIVITAMINS, THERA 1 EACH TAB PO SCH (09:24)
[2019-04-22] MEDS: LORATADINE 10 MG TAB PO SCH (09:24)
[2019-04-22] MEDS: ALLOPURINOL 300 MG TAB PO SCH (09:24)
[2019-04-22] MEDS: ASCORBIC ACID 500 MG TAB PO SCH (09:24)
[2019-04-22] MEDS: METOPROLOL TARTRATE 25 MG TAB PO SCH ×2 (09:24→20:29)
[2019-04-22] MEDS: POTASSIUM CHLORIDE ER 20 MEQ TAB.ER PO SCH (09:24)
[2019-04-22] MEDS: INSULIN ASPART (NovoLOG) 100 UNIT/ML VIAL SQ SCH ×4 (09:25→20:30)
[2019-04-22 11:24] LABS: Glucose,Whole Blood 241 mg/dL (75-99)
--- NOTE | 2019-04-22 13:56 | P.NPCON ---
History of Present Illness - Reason for Consult Consult date: 04/22/19 acute renal failure - Chief Complaint Shortness of breath - History of Present Illness This is 79-year-old male seen in consultation because of acute kidney injury. He came in because of shortness of breath. He has COPD from remote smoking, uses CPAP at home has atherosclerotic coronary artery disease with stents in the past as well as supposedly and atrial septal defect that was closed in the remote past. No fever chills no nausea vomiting no diarrhea, and no nonsteroidal use No history of any bladder dysfunction. He is known with slightly elevated creatinine of 1.2 dated 09/22/2018 prior to that was normal range. GFR on 09/22/2018 was 70 but subsequently has gone into the CK D stage III on 12/06/2018 creatinine was 1.9, 1.7 dated 03/27/2019 and on admission was 1.8 on 06/21/2018 went up to 2.6 as of this morning. Is being diuresed. Accurate intake and output are not available Vital signs are unremarkable except blood pressure has been sometimes bit low in the 90s to 110 range Past Medical History Past Medical History: Atrial Fibrillation, Coronary Artery Disease (CAD), COPD, Hyperlipidemia, Hypertension, Myocardial Infarction (TN), Osteoarthritis (OA), Pneumonia, Prostate Disorder, Respiratory Disorder, Sleep Apnea/CPAP/BIPAP Additional Past Medical History / Comment(s): CAD, Afib, SSS with pacer, JOSE JUAN with Cpap, secondary pulmonary HTN with PAP 65, elevated PSA, gout great toes Last Myocardial Infarction Date:: 2001 History of Any Multi-Drug Resistant Organisms: None Reported Past Surgical History: Appendectomy, Heart Catheterization, Heart Catheterization With Stent, Orthopedic Surgery, Pacemaker Additional Past Surgical History / Comment(s): PCI with stents, pacemaker, percutaneous closure ASD/PFO, AVIVA, colonoscopy with bening polyps, ORIF R elbow and wrist as child. Past Anesthesia/Blood Transfusion Reactions: Motion Sickness Date of Last Stent Placement:: 10/2012 Type of Cardiac Device: Permanent Pacemaker Device Placement Date:: 2016 Smoking Status: Former smoker (1 PPD for 15-20 years and he quit >30 years) - Past Family History Father Additional Family Medical History / Comment(s): Father had heart problems. Mother Family Medical History: AFIB Additional Family Medical History / Comment(s): Mother had heart problems. Sister(s) Family Medical History: Cancer Additional Family Medical History / Comment(s): Breast cancer Medications and Allergies Home Medications Medication Instructions Recorded Confirmed Type Allopurinol [Zyloprim] 300 mg PO DAILY 07/21/14 04/20/19 History Ascorbic Acid [Vitamin C] 1,000 mg PO DAILY 07/21/14 04/20/19 History Atorvastatin [Lipitor] 40 mg PO HS 07/21/14 04/20/19 History Warfarin [Coumadin] 1 mg PO SUWE 07/21/14 04/20/19 History Warfarin [Coumadin] 1.5 mg PO MOTUTHFRSA 07/21/14 04/20/19 History Multivitamins, Thera [Multivitamin 1 tab PO DAILY 05/04/16 04/20/19 History (formulary)] Losartan Potassium [Cozaar] 100 mg PO DAILY #30 tab 05/06/16 04/20/19 Rx amLODIPine BESYLATE [Norvasc] 10 mg PO HS #30 tablet 05/06/16 04/20/19 Rx Aspirin EC [Ecotrin Low Dose] 81 mg PO HS 08/22/18 04/20/19 History Loratadine [Claritin] 10 mg PO DAILY 08/22/18 04/20/19 History Furosemide [Lasix] 40 mg PO BID 09/22/18 04/20/19 History Potassium Chloride ER [K-Dur 20] 20 meq PO DAILY 09/22/18 04/20/19 History Metoprolol Tartrate [Lopressor] 25 mg PO DAILY 04/20/19 04/20/19 History Allergies Allergy/AdvReac Type Severity Reaction Status Date / Time No Known Allergies Allergy Verified 04/20/19 10:14 Physical Exam Vitals: Vital Signs Temp Pulse Pulse Resp BP Pulse Ox Pulse Ox 04/22/19 12:21 92 L 04/22/19 11:43 70 04/22/19 11:36 68 04/22/19 08:43 68 04/22/19 08:31 67 04/22/19 07:00 97.8 F 67 18 110/61 90 L 04/22/19 04:25 68 04/22/19 04:14 64 04/22/19 00:32 70 16 04/22/19 00:26 97.5 F L 62 16 99/46 92 L 04/22/19 00:20 68 16 04/21/19 20:31 72 04/21/19 20:22 72 04/21/19 19:01 97.6 F 68 15 111/48 92 L 04/21/19 16:48 76 04/21/19 16:30 72 04/21/19 14:50 97.7 F 73 20 105/42 93 L Pulse Ox 04/22/19 12:21 91 L 04/22/19 11:43 04/22/19 11:36 04/22/19 08:43 04/22/19 08:31 04/22/19 07:00 04/22/19 04:25 04/22/19 04:14 04/22/19 00:32 04/22/19 00:26 04/22/19 00:20 04/21/19 20:31 04/21/19 20:22 04/21/19 19:01 04/21/19 16:48 04/21/19 16:30 04/21/19 14:50 Intake and Output 04/21/19 04/22/19 04/22/19 22:59 06:59 14:59 Intake Total 320 Balance 320 Intake: Oral 320 Other: Voiding Method Toilet Toilet Weight 79.379 kg Exam she is awake alert oriented He is on room air but complains of shortness of breath on exertion HEENT exam no JVP neck is supple no facial asymmetry no lymphadenopathy Lungs are clear to auscultation fair air entry bilaterally Heart sounds are unremarkable for any murmur rub gallop Abdomen soft nontender no organomegaly status masses Extremity exam reveals minimal edema Neurologically awake alert oriented Results - Lab Results Most recent lab results Calcium 8.8 mg/dL (8.4-10.2) 04/22/19 06:52 Magnesium 2.4 mg/dL (1.6-2.3) H 04/20/19 09:20 04/22/19 06:52 04/22/19 06:52 Assessment and Plan Assessment: Impression 1. Acute kidney injury likely from prerenal from diuresis. He does not have any orthostatic changes in blood pressure 129/67 with heart rate of 7370 reclining and on standing up it was 131/69 with heart rate of 73 2. Chronic kidney disease nephrosclerosis creatinine 1.2 dated 09/22/2018 but has been more recently in the 1.7-1.9 range. Urinalysis is unremarkable in March 2019 and ultrasound shows 10.4 cm and 9.6 cm kidney further he has been extensively worked up with negative KARYNA double-stranded DNA, anti-citrulline antibody 3. Mild degree of gap and non-gap acidosis from chronic kidney disease bicarb is 18 gap is 14 4. CPAP use for sleep apnea and possible COPD. 4. ASHD status post cardiac cath and stents in the past with history of atrial septal defect closed. 5. History of pacer 6. Anemia of chronic kidney disease hemoglobin is 10.3 7. Mild thrombo-cytopenia based on 06/01/1999 Recommendation 1. Check urine protein to creatinine ratio 2. Hold diuretics for right now and restart tomorrow at lower dose based on evaluation tomorrow 3. Maintain blood pressure slightly higher, holding the Lasix would do it if not we'll reduce some of his blood pressure medications tomorrow
--- NOTE | 2019-04-22 14:38 | P.PN ---
Subjective Progress Note Date: 04/22/19 this is a 79-year-old male, a patient of Dr. Brink. He has a known past medical history of chronic atrial fibrillation antic PFO status post percutaneous closure, pacemaker placement for sick sinus syndrome, obstructive sleep apnea uses CPAPmachine, hypertension, myocardial infarction, severe pulmonary hypertension and a prior history of smoking. Patient presents to the emergency room with increasing shortness of breath over the last 2 weeks. Patient does report that his PCP had decreased his Lasix from 40 mg twice a day to once a day about a month ago. He does notice at evening time he does have some swelling in the legs. And occasionally he'll take Lasix 20 mg before bedtime. He denies any cough, fever, chills or sweats, or chest pain. patient seen in the ER. His oxygen saturation did decrease down to 88% he's currently on 2 L at 93%. He did receive a dose of IV Lasix, IV steroids and nebulizer treatments in ER for COPD exacerbation and CHF exacerbation. Both cardiology and pulmonary service has been consult. D-dimer is normal at 0.25. Creatinine elevated at 1.8 nd in December creatinine was 1.8. Patient also had reported some swelling around his nose this morning which now resolved. He denies any tongue or lip swelling. 04/21/2019 patient still reporting some shortness of breath. Still on 3 L of oxygen. He has been seen by both cardiology and pulmonary service. Patient denies any chest pain, nausea or vomiting bowel movement changes or urinary symptoms. Creatinine is up to 2.17. Patient is having hyperglycemia secondary to steroids insulin sliding scale has been added. On 04/22/2019 patient is still complaining of shortness of breath with any activity otherwise he denies any complaints there is no fever or chills no headache or dizziness no chest pain no cough no nausea or vomiting no abdominal pain no diarrhea no burning with urination no frequency or urgency and no hematuria Objective - Vital Signs Vital signs: Vital Signs Temp 98.3 F 04/22/19 14:29 Pulse 69 04/22/19 14:29 Resp 18 04/22/19 14:29 BP 139/69 04/22/19 14:29 Pulse Ox 94 L 04/22/19 14:29 Intake & Output 04/21/19 04/22/19 04/22/19 18:59 06:59 18:59 Intake Total 800 20 300 Balance 800 20 300 Weight 79.379 kg Intake: Oral 800 20 300 Other: Voiding Method Toilet Toilet # Voids 1 - Exam In general patient is alert and oriented 3 in no apparent distress HEENT head normocephalic and atraumatic Neck is supple no JVD no goiter no lymphadenopathy Chest exam reveals a few scattered crackles bilaterally no wheezing Cardiac exam reveals regular heart sounds S1 and S2 no gallops no murmurs Abdomen is soft nontender no organomegaly with normal bowel sounds Extremity exam reveals no edema no cyanosis or clubbing Neurological examination reveals no gross focal deficit - Labs CBC & Chem 7: 04/22/19 06:52 04/22/19 06:52 Labs: Abnormal Lab Results - Last 24 Hours (Table) 04/21/19 04/21/19 04/22/19 Range/Units 17:00 20:37 06:52 RBC (4.30-5.90) m/uL Hgb (13.0-17.5) gm/dL Hct (39.0-53.0) % Plt Count (150-450) k/uL Neutrophils # (1.3-7.7) k/uL Lymphocytes # (1.0-4.8) k/uL PT 43.0 H (9.0-12.0) sec INR 4.5 H (<1.2) Sodium (137-145) mmol/L Carbon Dioxide (22-30) mmol/L BUN (9-20) mg/dL Creatinine (0.66-1.25) mg/dL Glucose (74-99) mg/dL POC Glucose (mg/dL) 169 H 221 H (75-99) mg/dL Total Protein (6.3-8.2) g/dL 04/22/19 04/22/19 04/22/19 Range/Units 06:52 06:52 06:58 RBC 3.27 L (4.30-5.90) m/uL Hgb 10.3 L (13.0-17.5) gm/dL Hct 31.3 L (39.0-53.0) % Plt Count 132 L (150-450) k/uL Neutrophils # 9.5 H (1.3-7.7) k/uL Lymphocytes # 0.2 L (1.0-4.8) k/uL PT (9.0-12.0) sec INR (<1.2) Sodium 135 L (137-145) mmol/L Carbon Dioxide 18 L (22-30) mmol/L BUN 85 H (9-20) mg/dL Creatinine 2.64 H (0.66-1.25) mg/dL Glucose 186 H (74-99) mg/dL POC Glucose (mg/dL) 198 H (75-99) mg/dL Total Protein 6.1 L (6.3-8.2) g/dL 04/22/19 Range/Units 11:22 RBC (4.30-5.90) m/uL Hgb (13.0-17.5) gm/dL Hct (39.0-53.0) % Plt Count (150-450) k/uL Neutrophils # (1.3-7.7) k/uL Lymphocytes # (1.0-4.8) k/uL PT (9.0-12.0) sec INR (<1.2) Sodium (137-145) mmol/L Carbon Dioxide (22-30) mmol/L BUN (9-20) mg/dL Creatinine (0.66-1.25) mg/dL Glucose (74-99) mg/dL POC Glucose (mg/dL) 241 H (75-99) mg/dL Total Protein (6.3-8.2) g/dL Assessment and Plan Plan: 1. Shortness of breath and hypoxemia likely multifactorial. Per cardiology symptoms are likely related to his valvular heart disease and uncontrolled hypertension. cardiology has increased the Lopressor from 25 mg once a day to twice a day. symptoms also could be related to CHF exacerbation and possible COPD. Patient has been seen by both cardiology and pulmonary services. Cardiology has cleared patient for discharge 2. Acute hypoxic respiratory failure:secondary to CHF exacerbation and COPD exacerbation. Patient is usually not on oxygen at home. 3. Acute on chronic diastolic CHF exacerbation: Chest x-ray showing new trace pleural effusion and bibasilar airspace disease, possibly atelectasis. Correlate for CHF. BNP 1040. Patient did receive a dose of IV Lasix in the emergency room. Lasix dose had been decreased by PCP over the last month from 40 mg twice a day to once a day. Echo completed showing an EF of 55-60%. Left atrium severely dilated, severe tricuspid regurgitation, mild aortic regurgitation, mild mitral regurgitation and moderate pulmonary hypertension. Patient seen by cardiology services 4. Acute COPD exacerbation: continue IV Solu-Medrol. Continue DuoNeb updrafts. Pulmonary following 5. History of chronic atrial fibrillation anticoagulated with Coumadin. INR Is 3.5. Pharmacy dosing Coumadin. No Coumadin scheduled for tonight. 6. History of atrial septal defect status post closure in 2012 7. History of coronary artery disease status post cardiac stents 8. History of myocardial infarction 9. History of obstructive sleep apnea uses CPAP nightly. 10. Chronic kidney disease stage III. Creatinine since December is been around 1.8. concerns for possible obstructive uropathy due to patient's history of elevated PSA. He does follow with Dr. Morataya. kidney ultrasound did not reveal any evidence of obstructive uropathy, nephrology consultation requested. Check postvoid residuals. 11. History of moderate to severe pulmonary hypertension 12. essential hypertension: Continue current blood pressure medications Cozaar and Norvasc 13. Hyperlipidemia continue statin 14. acute kidney injury due to diuretics. We'll decrease Lasix from 40 mg by mouth twice a day to once a day.epeat labs in a.m. 15. Patient now complaining of cough with some sputum production. We'll start Rocephin 1 g daily. Check sputum culture Consult PT OT Try to wean patient off of oxygen. Try to keep oxygen saturations greater than 92% GI prophylaxis Pepcid and DVT prophylaxis Coumadin
--- NOTE | 2019-04-22 14:42 | P.PN ---
Subjective Progress Note Date: 04/22/19 very pleasant 79-year-old male patient, coming in for exertional dyspnea. Over the past month or so, the patient has noted some worsening in his pulmonary status pressure with exertion and he was feeling some shortness of breath and congestion in his throat/upper chest area. He had some congested, unable to bring up any sputum. He had no chest pain. He has chronic swelling in lower extremities. No palpitations. He decided to come in for further evaluation. Chest x-ray was done and shows thyromegaly and engorgement of the pulmonary arteries with possibly some small bilateral pleural effusions. Otherwise no acute abnormalities noted. Note that the patient is known to have coronary artery disease and he had undergone previous coronary stenting. He has also history of atrial fibrillation. He has sick sinus syndrome and currently is a pacemaker in place. He has been maintained on long-term anticoagulation with warfarin. Upon further review, I noted that the patient has also history of hypertension, hyperlipidemia, gout, his PSA has been gradually going up and the patient is being followed up with urology in that regard. He also developed acute kidney insufficiency with a creatinine is at 1.8 and past several months his kidney function has been off lightly elevated. This current admission, the patient was found to have a therapeutic INR of 2.9. Creatinine is at 1.8 consistent with chronic stage III kidney disease. White cell count is not chari vated at 7.2. His hemoglobin is at 11.1. The electrolytes are all within normal limits. His urinalysis on 03/18/2019 was within normal. she also has history of obstructive sleep apnea. He is maintained on CPAP therapy. His previous echocardiogram at shown acomponent of pulmonary hypertension with a PA pressure of around 65. He was evaluated by Dr. Chakraborty I was asked to continue the CPAP therapy for the time being. No further interventional workup was done regarding his pulmonary hypertension. His last CAT scan of the chest Was done on August 2018 showed bilateral pleural effusion right more than left On today's evaluation of , and seeing the patient for a follow-up. He still reported some limited congestion. No angina. No palpitations. No chest pain. He was placed on oral Lasix. Chest x-ray was reviewed and there is some mild pulmonary vascular congestion. Lower sodium is improved. Echocardiogram showed an EF of around 55-60% and the patient has severe pulmonary hypertension with a pressure of 67 and his RV is quite dilated at this point in time and he has signs of right-sided heart failure along with mild concentric LVH. On 04/22/2019 I'm seeing the patient for a follow-up. Still struggling with his breathing. He has some limited exertional dyspnea. He also is reporting some congestion in his chest and his throat area. He is currently off diuretics. His renal function decompensated while being on Lasix and he was taken off the Lasix and he was seen by nephrology today. He is drinking water for now. He is trying to give me a sputum sample for cultures. He remains on IV Solu Medrol 60 every 6 hours. I asked him to bring in his CPAP machine from home for me to check and make sure it's functioning appropriately. He remains on warfarin and PT/INR is being monitored and is slightly supratherapeutic on today's evaluation. No fever. No chills. Objective - Vital Signs Vital signs: Vital Signs Temp 98.3 F 04/22/19 14:29 Pulse 69 04/22/19 14:29 Resp 18 04/22/19 14:29 BP 139/69 04/22/19 14:29 Pulse Ox 94 L 04/22/19 14:29 Intake & Output 04/21/19 04/22/19 04/22/19 18:59 06:59 18:59 Intake Total 800 20 300 Balance 800 20 300 Weight 79.379 kg Intake: Oral 800 20 300 Other: Voiding Method Toilet Toilet # Voids 1 2 # Bowel Movements 1 - Exam Gen. appearance, comfortable likely distress currently on2 L of oxygen by nasal cannula Head exam was generally normal. There was no scleral icterus or corneal arcus. Mucous membranes were moist. Neck was supple and without jugular venous distension, thyromegaly, or carotid bruits. Carotids were easily palpable bilaterally. There was no adenopathy. Lungs sounds are diminished special lung bases otherwise clear Cardiac exam revealed the PMI to be normally situated and sized. The rhythm was regular and no extrasystoles were noted during several minutes of auscultation. The first and second heart sounds were normal and physiologic splitting of the second heart sound was noted. There were no murmurs, rubs, clicks, or gallops. Abdominal exam revealed normal bowel sounds. The abdomen was soft, non-tender, and without masses, organomegaly, or appreciable enlargement of the abdominal aorta. extremities reveal trace edema and there is no cyanosis or clubbing. Examination of the skin revealed no evidence of significant rashes, suspicious appearing nevi or other concerning lesions. Neurologically is awake and alert and there is no focal neurological deficits. - Labs CBC & Chem 7: 04/22/19 06:52 04/22/19 06:52 Labs: Abnormal Lab Results - Last 24 Hours (Table) 04/21/19 04/21/19 04/22/19 Range/Units 17:00 20:37 06:52 RBC (4.30-5.90) m/uL Hgb (13.0-17.5) gm/dL Hct (39.0-53.0) % Plt Count (150-450) k/uL Neutrophils # (1.3-7.7) k/uL Lymphocytes # (1.0-4.8) k/uL PT 43.0 H (9.0-12.0) sec INR 4.5 H (<1.2) Sodium (137-145) mmol/L Carbon Dioxide (22-30) mmol/L BUN (9-20) mg/dL Creatinine (0.66-1.25) mg/dL Glucose (74-99) mg/dL POC Glucose (mg/dL) 169 H 221 H (75-99) mg/dL Total Protein (6.3-8.2) g/dL 04/22/19 04/22/19 04/22/19 Range/Units 06:52 06:52 06:58 RBC 3.27 L (4.30-5.90) m/uL Hgb 10.3 L (13.0-17.5) gm/dL Hct 31.3 L (39.0-53.0) % Plt Count 132 L (150-450) k/uL Neutrophils # 9.5 H (1.3-7.7) k/uL Lymphocytes # 0.2 L (1.0-4.8) k/uL PT (9.0-12.0) sec INR (<1.2) Sodium 135 L (137-145) mmol/L Carbon Dioxide 18 L (22-30) mmol/L BUN 85 H (9-20) mg/dL Creatinine 2.64 H (0.66-1.25) mg/dL Glucose 186 H (74-99) mg/dL POC Glucose (mg/dL) 198 H (75-99) mg/dL Total Protein 6.1 L (6.3-8.2) g/dL 04/22/19 Range/Units 11:22 RBC (4.30-5.90) m/uL Hgb (13.0-17.5) gm/dL Hct (39.0-53.0) % Plt Count (150-450) k/uL Neutrophils # (1.3-7.7) k/uL Lymphocytes # (1.0-4.8) k/uL PT (9.0-12.0) sec INR (<1.2) Sodium (137-145) mmol/L Carbon Dioxide (22-30) mmol/L BUN (9-20) mg/dL Creatinine (0.66-1.25) mg/dL Glucose (74-99) mg/dL POC Glucose (mg/dL) 241 H (75-99) mg/dL Total Protein (6.3-8.2) g/dL Assessment and Plan Plan: 1 shortness of breath, multifactorial. There is a mild component of CHF/fluid overload as the patient has increased lower extremity edema. No other obvious decompensating factor There may be a component of COPD 2 coronary artery disease with previous coronary stenting 3 chronic atrial fibrillation The patient's current rhythm is paced 4 Sick sinus syndrome , post pacemaker insertion 5 obstructive sleep apnea maintained on CPAP therapy 6 secondary pulmonary hypertension with a PA pressure estimated to be in a range of 65 mmHg 7 Chronic stage III kidney disease consider obstructive uropathy as the patient had an elevated PSA followed up by urology, and the patient developed an acute kidney injury on top of chronic renal failure due to aggressive diuresis. Currently is off Lasix 8 gout 9 history of bilateral pleural effusion, not identified on the most recent chest x-ray 10 hyperlipidemia Plan Hold off Lasix Monitor renal function Taper Solu-Medrol Asked this patient to bring the CPAP machine from home for recheck Asked the patient to ambulate in the hallway We'll continue to follow
--- NOTE | 2019-04-22 16:12 | P.PN ---
Subjective Progress Note Date: 04/22/19 This is a 79-year-old gentleman with history of COPD and cor pulmonale who was admitted to the hospital with increasing shortness of breath. Patient complains that she is fairly comfortable at rest but any physical activity makes him short of breath. He was seen by Dr. KAYLYN Diego and was told that he had valvular regurgitation and that he may need surgery. Patient and his want something to be done immediately. I reviewed his echocardiogram. He showed evidence of right ventricular enlargement and picture consistent with carpal normal. There is evidence of moderate to severe tricuspid regurgitation. The aortic and mitral function doesn't appear to be significantly affected. There is no sig nificant JVD or peripheral edema. His symptoms are most probably related to his COPD and carpal normal. I don't think patient would benefit for any surgery at this time. And pulmonology feels that patient is stable, patient could be discharged home. Follow-up with Dr. KAYLYN Diego Objective - Vital Signs Vital signs: Vital Signs Temp 98.3 F 04/22/19 14:29 Pulse 72 04/22/19 15:45 Resp 18 04/22/19 14:29 BP 139/69 04/22/19 14:29 Pulse Ox 94 L 04/22/19 14:29 Intake & Output 04/21/19 04/22/19 04/22/19 18:59 06:59 18:59 Intake Total 800 20 300 Balance 800 20 300 Weight 79.379 kg Intake: Oral 800 20 300 Other: Voiding Method Toilet Toilet # Voids 1 2 # Bowel Movements 1 - Exam GENERAL EXAM: Patient is alert and oriented and doesn't appear to be in any acute distress HEENT: Normocephalic. Normal reaction of pupils, equal size, normal range of extraocular motion. No erythema or exudates in the throat. NECK: No masses, no nuchal rigidity. CHEST: No chest wall deformity. LUNGS: Diminished air entry bilaterally HEART: S1 and S2 normal with no audible mumurs or gallops. Regular rhythm, femorals equal on both sides.. ABDOMEN: No hepatosplenomegaly, normal bowel sounds, no guarding or rigidity. SKIN: No rashes CENTRAL NERVOUS SYSTEM: No focal deficits. EXTREMITIES: No cyanosis, clubbing or edema. - Labs CBC & Chem 7: 04/22/19 06:52 04/22/19 06:52 Labs: Abnormal Lab Results - Last 24 Hours (Table) 04/21/19 04/21/19 04/22/19 Range/Units 17:00 20:37 06:52 RBC (4.30-5.90) m/uL Hgb (13.0-17.5) gm/dL Hct (39.0-53.0) % Plt Count (150-450) k/uL Neutrophils # (1.3-7.7) k/uL Lymphocytes # (1.0-4.8) k/uL PT 43.0 H (9.0-12.0) sec INR 4.5 H (<1.2) Sodium (137-145) mmol/L Carbon Dioxide (22-30) mmol/L BUN (9-20) mg/dL Creatinine (0.66-1.25) mg/dL Glucose (74-99) mg/dL POC Glucose (mg/dL) 169 H 221 H (75-99) mg/dL Total Protein (6.3-8.2) g/dL 04/22/19 04/22/19 04/22/19 Range/Units 06:52 06:52 06:58 RBC 3.27 L (4.30-5.90) m/uL Hgb 10.3 L (13.0-17.5) gm/dL Hct 31.3 L (39.0-53.0) % Plt Count 132 L (150-450) k/uL Neutrophils # 9.5 H (1.3-7.7) k/uL Lymphocytes # 0.2 L (1.0-4.8) k/uL PT (9.0-12.0) sec INR (<1.2) Sodium 135 L (137-145) mmol/L Carbon Dioxide 18 L (22-30) mmol/L BUN 85 H (9-20) mg/dL Creatinine 2.64 H (0.66-1.25) mg/dL Glucose 186 H (74-99) mg/dL POC Glucose (mg/dL) 198 H (75-99) mg/dL Total Protein 6.1 L (6.3-8.2) g/dL 04/22/19 Range/Units 11:22 RBC (4.30-5.90) m/uL Hgb (13.0-17.5) gm/dL Hct (39.0-53.0) % Plt Count (150-450) k/uL Neutrophils # (1.3-7.7) k/uL Lymphocytes # (1.0-4.8) k/uL PT (9.0-12.0) sec INR (<1.2) Sodium (137-145) mmol/L Carbon Dioxide (22-30) mmol/L BUN (9-20) mg/dL Creatinine (0.66-1.25) mg/dL Glucose (74-99) mg/dL POC Glucose (mg/dL) 241 H (75-99) mg/dL Total Protein (6.3-8.2) g/dL Assessment and Plan (1) Acute exacerbation of chronic obstructive pulmonary disease Current Visit: Yes Status: Acute Code(s): J44.1 - CHRONIC OBSTRUCTIVE PULMONARY DISEASE W (ACUTE) EXACERBATION SNOMED Code(s): 424244600 (2) Renal insufficiency Current Visit: Yes Status: Acute Code(s): N28.9 - DISORDER OF KIDNEY AND URETER, UNSPECIFIED SNOMED Code(s): 500679397 (3) CAD (coronary artery disease) Current Visit: No Status: Acute Code(s): I25.10 - ATHSCL HEART DISEASE OF [place] CORONARY ARTERY W/O ANG PCTRS SNOMED Code(s): 93661015 (4) Chronic a-fib Current Visit: No Status: Acute Code(s): I48.2 - CHRONIC ATRIAL FIBRILLATION * DO NOT USE * SNOMED Code(s): 958895728 Plan: Continue current medical therapy. Increase activity as tolerated. Echocardiogram reviewed. Patient may be discharged home to have follow-up with Dr. KAYLYN Diego
[2019-04-22 16:49] LABS: Glucose,Whole Blood 147 mg/dL (75-99)
[2019-04-22] MEDS ORDERED: WARFARIN 0.5 MG TAB PO ONE (18:00)
[2019-04-22 18:20] LABS: Protein/Creatinine Ratio,Urine 0.1
[2019-04-22] MEDS ORDERED: IPRATROPIUM-ALBUTEROL 3 ML NEB INHALATION PRN (20:13)
[2019-04-22 20:23] LABS: Glucose,Whole Blood 188 mg/dL (75-99)
[2019-04-22] MEDS: ASPIRIN 81 MG PO SCH (20:29)
[2019-04-22] MEDS: ATORVASTATIN 40 MG TAB PO SCH (20:29)
[2019-04-22] MEDS: amLODIPine 10 MG TAB PO SCH (20:29)
[2019-04-22] MEDS: methylPREDNISolone SOD SUCCI 40 MG/ML 1 ML VIAL IV SCH (20:30)
[2019-04-23 06:46] LABS: Basophils % (A) 0 %; Eosinophils % (A) 0 %; HCT 33.2 % (39.0-53.0); HGB 10.9 gm/dL (13.0-17.5); Lymphocytes # (A) 0.3 k/uL (1.0-4.8); Lymphocytes % (A) 2 %; MCH 31.4 pg (25.0-35.0); MCV 95.2 fL (80.0-100.0); Mean Platelet Volume 9.1; Monocytes # (A) 0.3 k/uL (0-1.0); Monocytes % (A) 3 %; Neutrophils # (A) 9.7 k/uL (1.3-7.7); Neutrophils % (A) 93 %; Platelet Count 150 k/uL (150-450); RBC 3.48 m/uL (4.30-5.90); RDW 15.7 % (11.5-15.5); WBC 10.3 k/uL (3.8-10.6)
[2019-04-23 06:55] LABS: Glucose,Whole Blood 164 mg/dL (75-99)
[2019-04-23 06:55] LABS: INR 3.5 (<1.2); Prothrombin Time 33.3 sec (9.0-12.0)
[2019-04-23 07:03] LABS: Albumin 3.7 g/dL (3.5-5.0); Total Bilirubin 0.4 mg/dL (0.2-1.3); Total Protein 6.1 g/dL (6.3-8.2)
[2019-04-23] MEDS: INSULIN ASPART (NovoLOG) 100 UNIT/ML VIAL SQ SCH ×4 (07:48→20:35)
[2019-04-23] MEDS: LORATADINE 10 MG TAB PO SCH (07:50)
[2019-04-23] MEDS: POTASSIUM CHLORIDE ER 20 MEQ TAB.ER PO SCH (07:50)
[2019-04-23] MEDS: MULTIVITAMINS, THERA 1 EACH TAB PO SCH (07:50)
[2019-04-23] MEDS: ASCORBIC ACID 500 MG TAB PO SCH (07:50)
[2019-04-23] MEDS: methylPREDNISolone SOD SUCCI 40 MG/ML 1 ML VIAL IV SCH ×2 (07:51→20:35)
[2019-04-23] MEDS: ALLOPURINOL 300 MG TAB PO SCH (07:51)
[2019-04-23] MEDS: METOPROLOL TARTRATE 25 MG TAB PO SCH ×2 (07:51→20:35)
[2019-04-23] MEDS: IPRATROPIUM-ALBUTEROL 3 ML NEB INHALATION SCH ×4 (08:05→20:23)
--- NOTE | 2019-04-23 11:37 | P.PN ---
Subjective Progress Note Date: 04/23/19 this is a 79-year-old male, a patient of Dr. Brink. He has a known past medical history of chronic atrial fibrillation antic PFO status post percutaneous closure, pacemaker placement for sick sinus syndrome, obstructive sleep apnea uses CPAPmachine, hypertension, myocardial infarction, severe pulmonary hypertension and a prior history of smoking. Patient presents to the emergency room with increasing shortness of breath over the last 2 weeks. Patient does report that his PCP had decreased his Lasix from 40 mg twice a day to once a day about a month ago. He does notice at evening time he does have some swelling in the legs. And occasionally he'll take Lasix 20 mg before bedtime. He denies any cough, fever, chills or sweats, or chest pain. patient seen in the ER. His oxygen saturation did decrease down to 88% he's currently on 2 L at 93%. He did receive a dose of IV Lasix, IV steroids and nebulizer treatments in ER for COPD exacerbation and CHF exacerbation. Both cardiology and pulmonary service has been consult. D-dimer is normal at 0.25. Creatinine elevated at 1.8 nd in December creatinine was 1.8. Patient also had reported some swelling around his nose this morning which now resolved. He denies any tongue or lip swelling. 04/21/2019 patient still reporting some shortness of breath. Still on 3 L of oxygen. He has been seen by both cardiology and pulmonary service. Patient denies any chest pain, nausea or vomiting bowel movement changes or urinary symptoms. Creatinine is up to 2.17. Patient is having hyperglycemia secondary to steroids insulin sliding scale has been added. On 04/22/2019 patient is still complaining of shortness of breath with any activity otherwise he denies any complaints there is no fever or chills no headache or dizziness no chest pain no cough no nausea or vomiting no abdominal pain no diarrhea no burning with urination no frequency or urgency and no hematuria On 04/23/2019 patient was seen and examined on the medical floor he is alert and oriented 3 in no apparent distress he is still complaining of shortness of breath with activity otherwise no complaints there is no fever or chills no headache or dizziness no chest pain no cough no nausea or vomiting no abdominal pain no diarrhea no burning was urination no frequency or urgency and no hematuria. Kidney function is still worsening was elevated BUN and creatinine today. Nephrology consultation requested patient was seen by Dr. Dr. Cheung, he is off diuretic at this time Objective - Vital Signs Vital signs: Vital Signs Temp 98.2 F 04/23/19 07:00 Pulse 72 04/23/19 11:25 Resp 18 04/23/19 07:00 BP 110/46 04/23/19 07:00 Pulse Ox 93 L 04/23/19 10:10 Intake & Output 04/22/19 04/23/19 04/23/19 18:59 06:59 18:59 Intake Total 300 Balance 300 Intake: Oral 300 Other: Voiding Method Toilet Toilet Toilet # Voids 2 1 # Bowel Movements 1 - Exam In general patient is alert and oriented 3 in no apparent distress HEENT head normocephalic and atraumatic Neck is supple no JVD no goiter no lymphadenopathy Chest exam reveals a few scattered crackles bilaterally no wheezing Cardiac exam reveals regular heart sounds S1 and S2 no gallops no murmurs Abdomen is soft nontender no organomegaly with normal bowel sounds Extremity exam reveals no edema no cyanosis or clubbing Neurological examination reveals no gross focal deficit - Labs CBC & Chem 7: 04/23/19 06:06 04/23/19 06:06 Labs: Abnormal Lab Results - Last 24 Hours (Table) 04/22/19 04/22/19 04/23/19 Range/Units 16:47 20:21 06:06 RBC (4.30-5.90) m/uL Hgb (13.0-17.5) gm/dL Hct (39.0-53.0) % RDW (11.5-15.5) % Neutrophils # (1.3-7.7) k/uL Lymphocytes # (1.0-4.8) k/uL PT 33.3 H (9.0-12.0) sec INR 3.5 H (<1.2) Sodium (137-145) mmol/L Carbon Dioxide (22-30) mmol/L BUN (9-20) mg/dL Creatinine (0.66-1.25) mg/dL Glucose (74-99) mg/dL POC Glucose (mg/dL) 147 H 188 H (75-99) mg/dL Total Protein (6.3-8.2) g/dL 04/23/19 04/23/19 04/23/19 Range/Units 06:06 06:06 06:53 RBC 3.48 L (4.30-5.90) m/uL Hgb 10.9 L (13.0-17.5) gm/dL Hct 33.2 L (39.0-53.0) % RDW 15.7 H (11.5-15.5) % Neutrophils # 9.7 H (1.3-7.7) k/uL Lymphocytes # 0.3 L (1.0-4.8) k/uL PT (9.0-12.0) sec INR (<1.2) Sodium 135 L (137-145) mmol/L Carbon Dioxide 18 L (22-30) mmol/L BUN 97 H (9-20) mg/dL Creatinine 2.84 H (0.66-1.25) mg/dL Glucose 157 H (74-99) mg/dL POC Glucose (mg/dL) 164 H (75-99) mg/dL Total Protein 6.1 L (6.3-8.2) g/dL Assessment and Plan Plan: 1. Shortness of breath and hypoxemia likely multifactorial. Per cardiology symptoms are likely related to his valvular heart disease and uncontrolled hypertension. cardiology has increased the Lopressor from 25 mg once a day to twice a day. symptoms also could be related to CHF exacerbation and possible COPD. Patient has been seen by both cardiology and pulmonary services. Car diology has cleared patient for discharge 2. Acute hypoxic respiratory failure:secondary to CHF exacerbation and COPD exacerbation. Patient is usually not on oxygen at home. 3. Acute on chronic diastolic CHF exacerbation: Chest x-ray showing new trace pleural effusion and bibasilar airspace disease, possibly atelectasis. Correlate for CHF. BNP 1040. Patient did receive a dose of IV Lasix in the emergency room. Lasix dose had been decreased by PCP over the last month from 40 mg twice a day to once a day. Echo completed showing an EF of 55-60%. Left atrium severely dilated, severe tricuspid regurgitation, mild aortic regurgitation, mild mitral regurgitation and moderate pulmonary hypertension. Patient seen by cardiology services 4. Acute COPD exacerbation: continue IV Solu-Medrol. Continue DuoNeb updrafts. Pulmonary following 5. History of chronic atrial fibrillation anticoagulated with Coumadin. INR Is 3.5. Pharmacy dosing Coumadin. No Coumadin scheduled for tonight. 6. History of atrial septal defect status post closure in 2012 7. History of coronary artery disease status post cardiac stents 8. History of myocardial infarction 9. History of obstructive sleep apnea uses CPAP nightly. 10. Chronic kidney disease stage III. Creatinine since December is been around 1.8. concerns for possible obstructive uropathy due to patient's history of elevated PSA. He does follow with Dr. Mor[place]aya. kidney ultrasound did not reveal any evidence of obstructive uropathy, nephrology consultation requested. Check postvoid residuals. 11. History of moderate to severe pulmonary hypertension 12. essential hypertension: Continue current blood pressure medications Cozaar and Norvasc 13. Hyperlipidemia continue statin 14. acute kidney injury due to diuretics. We'll decrease Lasix from 40 mg by mouth twice a day to once a day.epeat labs in a.m. 15. Patient now complaining of cough with some sputum production. We'll start Rocephin 1 g daily. Check sputum culture Consult PT OT Try to wean patient off of oxygen. Try to keep oxygen saturations greater than 92% GI prophylaxis Pepcid and DVT prophylaxis Coumadin
[2019-04-23 11:50] LABS: Glucose,Whole Blood 189 mg/dL (75-99)
--- NOTE | 2019-04-23 11:56 | P.PN ---
Subjective Progress Note Date: 04/23/19 Principal diagnosis: This is 79-year-old male seen in consultation because of acute kidney injury deemed from diuresis. He came in with shortness of breath, he is known with COPD from remote smoking uses CPAP at home. He is also known with coronary artery disease with stenting in the past His creatinine which was 1.2 dated 09/22/2018 with a GFR of 70 as been worsening slowly.on 12/06/2018 creatinine was 1.9, 1.7 dated 03/27/2019 and on admission was 1.8 on 06/21/2018 went up to 2.6. I stopped his diuretics yesterday. Creatinine continues to go up to 2.8. Blood pressures are normal but he has significant orthostatic changes this morning blood pressure was 117/50 with a heart rate of 59 standing up and supine was 146/75 with a heart rate of 73. Denied any dizziness. He has a good appetite no nausea vomiting no chest pain. Remained short of breath more than his normal self at home Objective - Vital Signs Vital signs: Vital Signs Temp 98.2 F 04/23/19 07:00 Pulse 73 04/23/19 11:43 Resp 18 04/23/19 07:00 BP 146/75 04/23/19 11:43 Pulse Ox 93 L 04/23/19 10:10 Intake & Output 04/22/19 04/23/19 04/23/19 18:59 06:59 18:59 Intake Total 300 Balance 300 Intake: Oral 300 Other: Voiding Method Toilet Toilet Toilet # Voids 2 1 # Bowel Movements 1 On examination no JVP neck is supple no facial asymmetry Lungs are clear to auscultation good air entry bilaterally Heart sounds are unremarkable for any murmur rub gallop Abdomen soft nontender protuberant Extremity exam was trace edema Neurologically awake alert oriented - Labs CBC & Chem 7: 04/23/19 06:06 04/23/19 06:06 Labs: Abnormal Lab Results - Last 24 Hours (Table) 04/22/19 04/22/19 04/23/19 Range/Units 16:47 20:21 06:06 RBC (4.30-5.90) m/uL Hgb (13.0-17.5) gm/dL Hct (39.0-53.0) % RDW (11.5-15.5) % Neutrophils # (1.3-7.7) k/uL Lymphocytes # (1.0-4.8) k/uL PT 33.3 H (9.0-12.0) sec INR 3.5 H (<1.2) Sodium (137-145) mmol/L Carbon Dioxide (22-30) mmol/L BUN (9-20) mg/dL Creatinine (0.66-1.25) mg/dL Glucose (74-99) mg/dL POC Glucose (mg/dL) 147 H 188 H (75-99) mg/dL Total Protein (6.3-8.2) g/dL 04/23/19 04/23/19 04/23/19 Range/Units 06:06 06:06 06:53 RBC 3.48 L (4.30-5.90) m/uL Hgb 10.9 L (13.0-17.5) gm/dL Hct 33.2 L (39.0-53.0) % RDW 15.7 H (11.5-15.5) % Neutrophils # 9.7 H (1.3-7.7) k/uL Lymphocytes # 0.3 L (1.0-4.8) k/uL PT (9.0-12.0) sec INR (<1.2) Sodium 135 L (137-145) mmol/L Carbon Dioxide 18 L (22-30) mmol/L BUN 97 H (9-20) mg/dL Creatinine 2.84 H (0.66-1.25) mg/dL Glucose 157 H (74-99) mg/dL POC Glucose (mg/dL) 164 H (75-99) mg/dL Total Protein 6.1 L (6.3-8.2) g/dL 04/23/19 Range/Units 11:47 RBC (4.30-5.90) m/uL Hgb (13.0-17.5) gm/dL Hct (39.0-53.0) % RDW (11.5-15.5) % Neutrophils # (1.3-7.7) k/uL Lymphocytes # (1.0-4.8) k/uL PT (9.0-12.0) sec INR (<1.2) Sodium (137-145) mmol/L Carbon Dioxide (22-30) mmol/L BUN (9-20) mg/dL Creatinine (0.66-1.25) mg/dL Glucose (74-99) mg/dL POC Glucose (mg/dL) 189 H (75-99) mg/dL Total Protein (6.3-8.2) g/dL Assessment and Plan Assessment: Impression 1. Acute kidney injury likely from prerenal from diuresis. Yesterday he did not have any orthostatic changes but today he does have as mentioned above. Creatinine went up to 2.8 from 2.6 2. Chronic kidney disease nephrosclerosis creatinine 1.2 dated 09/22/2018 but has been more recently in the 1.7-1.9 range. Urinalysis is unremarkable in March 2019 and ultrasound shows 10.4 cm and 9.6 cm kidney further he has been extensively worked up with negative KARYNA double-stranded DNA, anti-citrulline antibody. Urine protein to creatinine ratio is 0.1 dated 05/02/2019 yesterday 3. Mild degree of gap and non-gap acidosis from chronic kidney disease bicarb is 18 gap is 14 4. CPAP use for sleep apnea and possible COPD. 4. ASHD status post cardiac cath and stents in the past with history of atrial septal defect closed. 5. History of pacer 6. Anemia of chronic kidney disease hemoglobin is 10.3 7. Mild thrombo-cytopenia based on 06/01/1999 Recommendation 1. Start IV normal saline at [address]. 2. Check postvoid residual 3. Check urinalysis. 4. Hold the potassium 5. Repeat labs tomorrow
[2019-04-23] MEDS: SODIUM CHLORIDE 0.9% 1,000 ML IV SCH ×2 (12:01→20:35)
--- NOTE | 2019-04-23 12:48 | P.PN ---
Subjective Progress Note Date: 04/23/19 This patient is admitted with increasing shortness of breath. Most probably related to COPD and cor pulmonale. Patient received aggressive diuretic therapy. His creatinine has gone up and patient underwent postural hypotension. Diuretics are being held and patient is given IV fluids. His echo [place] showed evidence of moderate to severe tricuspid regurgitation. Mitral and aortic valves do not show any significant regurgitation or stenosis. I don't see any surgical procedure is indicated at this time. From Card[facility] standpoint patient could be discharged home when his kidney status is stable. Follow-up with Dr. KAYLYN Diego Objective - Vital Signs Vital signs: Vital Signs Temp 98.2 F 04/23/19 07:00 Pulse 73 04/23/19 11:43 Resp 18 04/23/19 07:00 BP 146/75 04/23/19 11:43 Pulse Ox 93 L 04/23/19 10:10 Intake & Output 04/22/19 04/23/19 04/23/19 18:59 06:59 18:59 Intake Total 300 Balance 300 Intake: Oral 300 Other: Voiding Method Toilet Toilet Toilet # Voids 2 1 # Bowel Movements 1 - Exam GENERAL EXAM: Patient is alert and oriented and doesn't appear to be in any acute distress HEENT: Normocephalic. Normal reaction of pupils, equal size, normal range of extraocular motion. No erythema or exudates in the throat. NECK: No masses, no nuchal rigidity. CHEST: No chest wall deformity. LUNGS: Diminished air entry bilaterally HEART: S1 and S2 normal with no audible mumurs or gallops. Regular rhythm, femorals equal on both sides.. ABDOMEN: No hepatosplenomegaly, normal bowel sounds, no guarding or rigidity. SKIN: No rashes CENTRAL NERVOUS SYSTEM: No focal deficits. EXTREMITIES: No cyanosis, clubbing or edema. - Labs CBC & Chem 7: 04/23/19 06:06 04/23/19 06:06 Labs: Abnormal Lab Results - Last 24 Hours (Table) 04/22/19 04/22/19 04/23/19 Range/Units 16:47 20:21 06:06 RBC (4.30-5.90) m/uL Hgb (13.0-17.5) gm/dL Hct (39.0-53.0) % RDW (11.5-15.5) % Neutrophils # (1.3-7.7) k/uL Lymphocytes # (1.0-4.8) k/uL PT 33.3 H (9.0-12.0) sec INR 3.5 H (<1.2) Sodium (137-145) mmol/L Carbon Dioxide (22-30) mmol/L BUN (9-20) mg/dL Creatinine (0.66-1.25) mg/dL Glucose (74-99) mg/dL POC Glucose (mg/dL) 147 H 188 H (75-99) mg/dL Total Protein (6.3-8.2) g/dL 04/23/19 04/23/19 04/23/19 Range/Units 06:06 06:06 06:53 RBC 3.48 L (4.30-5.90) m/uL Hgb 10.9 L (13.0-17.5) gm/dL Hct 33.2 L (39.0-53.0) % RDW 15.7 H (11.5-15.5) % Neutrophils # 9.7 H (1.3-7.7) k/uL Lymphocytes # 0.3 L (1.0-4.8) k/uL PT (9.0-12.0) sec INR (<1.2) Sodium 135 L (137-145) mmol/L Carbon Dioxide 18 L (22-30) mmol/L BUN 97 H (9-20) mg/dL Creatinine 2.84 H (0.66-1.25) mg/dL Glucose 157 H (74-99) mg/dL POC Glucose (mg/dL) 164 H (75-99) mg/dL Total Protein 6.1 L (6.3-8.2) g/dL 04/23/19 Range/Units 11:47 RBC (4.30-5.90) m/uL Hgb (13.0-17.5) gm/dL Hct (39.0-53.0) % RDW (11.5-15.5) % Neutrophils # (1.3-7.7) k/uL Lymphocytes # (1.0-4.8) k/uL PT (9.0-12.0) sec INR (<1.2) Sodium (137-145) mmol/L Carbon Dioxide (22-30) mmol/L BUN (9-20) mg/dL Creatinine (0.66-1.25) mg/dL Glucose (74-99) mg/dL POC Glucose (mg/dL) 189 H (75-99) mg/dL Total Protein (6.3-8.2) g/dL Assessment and Plan (1) Acute exacerbation of chronic obstructive pulmonary disease Current Visit: Yes Status: Acute Code(s): J44.1 - CHRONIC OBSTRUCTIVE PULMONARY DISEASE W (ACUTE) EXACERBATION SNOMED Code(s): 941488234 (2) Renal insufficiency Current Visit: Yes Status: Acute Code(s): N28.9 - DISORDER OF KIDNEY AND URETER, UNSPECIFIED SNOMED Code(s): 075187335 (3) CAD (coronary artery disease) Current Visit: No Status: Acute Code(s): I25.10 - ATHSCL HEART DISEASE OF [place] CORONARY ARTERY W/O ANG PCTRS SNOMED Code(s): 62363104 (4) Chronic a-fib Current Visit: No Status: Acute Code(s): I48.2 - CHRONIC ATRIAL FIBRILLATION * DO NOT USE * SNOMED Code(s): 104721024 Plan: A she is being treated for dehydration and acute renal failure. From cardiac standpoint, no further sedation at this time. Follow-up with Dr. KAYLYN Diego
[2019-04-23 15:04] LABS: Appearance,Urine Clear (Clear); Bilirubin,Urine Negative (Negative); Blood,Urine Negative (Negative); Color,Urine Yellow; Glucose,Urine (UA) Negative (Negative); Ketones,Urine Negative (Negative); Leukocyte Esterase,Urine Negative (Negative); Nitrite,Urine Negative (Negative); Protein,Urine Negative (Negative); Specific Gravity,Urine 1.016 (1.001-1.035); Urobilinogen,Urine <2.0 mg/dL (<2.0)
[2019-04-23 17:02] LABS: Glucose,Whole Blood 190 mg/dL (75-99)
[2019-04-23] MEDS ORDERED: WARFARIN 0.5 MG TAB PO ONE (18:00)
[2019-04-23] MEDS ORDERED: WARFARIN 1 MG TAB PO SCH (18:00)
[2019-04-23 20:18] LABS: Glucose,Whole Blood 190 mg/dL (75-99)
[2019-04-23] MEDS: ASPIRIN 81 MG PO SCH (20:34)
[2019-04-23] MEDS: amLODIPine 10 MG TAB PO SCH (20:34)
[2019-04-23] MEDS: ATORVASTATIN 40 MG TAB PO SCH (20:35)
[2019-04-24 06:52] LABS: Glucose,Whole Blood 192 mg/dL (75-99)
[2019-04-24] MEDS: INSULIN ASPART (NovoLOG) 100 UNIT/ML VIAL SQ SCH ×4 (07:27→20:15)
[2019-04-24] MEDS: ASCORBIC ACID 500 MG TAB PO SCH (07:27)
[2019-04-24] MEDS: ALLOPURINOL 300 MG TAB PO SCH (07:27)
[2019-04-24] MEDS: LORATADINE 10 MG TAB PO SCH (07:28)
[2019-04-24] MEDS: methylPREDNISolone SOD SUCCI 40 MG/ML 1 ML VIAL IV SCH (07:28)
[2019-04-24] MEDS: MULTIVITAMINS, THERA 1 EACH TAB PO SCH (07:28)
[2019-04-24] MEDS: METOPROLOL TARTRATE 25 MG TAB PO SCH ×2 (07:28→20:14)
[2019-04-24 07:30] LABS: INR 2.6 (<1.2); Prothrombin Time 25.6 sec (9.0-12.0)
[2019-04-24] MEDS: IPRATROPIUM-ALBUTEROL 3 ML NEB INHALATION SCH ×4 (08:34→20:49)
[2019-04-24 09:16] LABS: Basophils % (A) 0 %; Eosinophils % (A) 1 %; HCT 34.4 % (39.0-53.0); HGB 11.1 gm/dL (13.0-17.5); Hypochromasia Slight; Lymphocytes # (A) 0.2 k/uL (1.0-4.8); Lymphocytes % (A) 3 %; MCH 31.2 pg (25.0-35.0); MCHC 32.3 g/dL (31.0-37.0); MCV 96.7 fL (80.0-100.0); Mean Platelet Volume 9.5; Monocytes # (A) 0.3 k/uL (0-1.0); Monocytes % (A) 4 %; Neutrophils # (A) 6.9 k/uL (1.3-7.7); Neutrophils % (A) 92 %; Platelet Count 137 k/uL (150-450); RBC 3.56 m/uL (4.30-5.90); RDW 15.6 % (11.5-15.5); WBC 7.6 k/uL (3.8-10.6)
[2019-04-24 09:57] LABS: Calcium 8.8 mg/dL (8.4-10.2); Potassium 5.2 mmol/L (3.5-5.1)
--- NOTE | 2019-04-24 11:33 | P.PN ---
Subjective Progress Note Date: 04/24/19 this is a 79-year-old male, a patient of Dr. Brink. He has a known past medical history of chronic atrial fibrillation antic PFO status post percutaneous closure, pacemaker placement for sick sinus syndrome, obstructive sleep apnea uses CPAPmachine, hypertension, myocardial infarction, severe pulmonary hypertension and a prior history of smoking. Patient presents to the emergency room with increasing shortness of breath over the last 2 weeks. Patient does report that his PCP had decreased his Lasix from 40 mg twice a day to once a day about a month ago. He does notice at evening time he does have some swelling in the legs. And occasionally he'll take Lasix 20 mg before bedtime. He denies any cough, fever, chills or sweats, or chest pain. patient seen in the ER. His oxygen saturation did decrease down to 88% he's currently on 2 L at 93%. He did receive a dose of IV Lasix, IV steroids and nebulizer treatments in ER for COPD exacerbation and CHF exacerbation. Both cardiology and pulmonary service has been consult. D-dimer is normal at 0.25. Creatinine elevated at 1.8 nd in December creatinine was 1.8. Patient also had reported some swelling around his nose this morning which now resolved. He denies any tongue or lip swelling. 04/21/2019 patient still reporting some shortness of breath. Still on 3 L of oxygen. He has been seen by both cardiology and pulmonary service. Patient denies any chest pain, nausea or vomiting bowel movement changes or urinary symptoms. Creatinine is up to 2.17. Patient is having hyperglycemia secondary to steroids insulin sliding scale has been added. On 04/22/2019 patient is still complaining of shortness of breath with any activity otherwise he denies any complaints there is no fever or chills no headache or dizziness no chest pain no cough no nausea or vomiting no abdominal pain no diarrhea no burning with urination no frequency or urgency and no hematuria On 04/23/2019 patient was seen and examined on the medical floor he is alert and oriented 3 in no apparent distress he is still complaining of shortness of breath with activity otherwise no complaints there is no fever or chills no headache or dizziness no chest pain no cough no nausea or vomiting no abdominal pain no diarrhea no burning was urination no frequency or urgency and no hematuria. Kidney function is still worsening was elevated BUN and creatinine today. Nephrology consultation requested patient was seen by Dr. Dr. Cheung, he is off diuretic at this time On 04/24/2019 patient alert and oriented 3. Patient still having some shortness of breath with activity but denies any chest pain. Creatinine today 2.64 and bun 106. Nephrology services are following. Patient is also still maintained on IV Solu-Medrol. Lasix DC'd. Patient is having bowel movements. Patient denies chest pain. Patient denies nausea vomiting or diarrhea. Patient denies any urinary burning or frequency Objective - Vital Signs Vital signs: Vital Signs Temp 98.6 F 04/24/19 07:00 Pulse 61 04/24/19 11:21 Resp 18 04/24/19 11:21 BP 159/74 04/24/19 07:00 Pulse Ox 93 L 04/24/19 08:35 Intake & Output 04/23/19 04/24/19 04/24/19 18:59 06:59 18:59 Intake Total 900 1020 Balance 900 1020 Intake: Intake, IV Titration 900 Amount Sodium Chloride 0.9% 1, 900 000 ml @ 75 mls/hr IV . [id number] [facility] Rx#:[id number] Oral 900 120 Other: Voiding Method Toilet Toilet Toilet # Voids 2 1 - Exam In general patient is alert and oriented 3 in no apparent distress HEENT head normocephalic and atraumatic Neck is supple no JVD no goiter no lymphadenopathy Chest exam reveals a few scattered crackles bilaterally no wheezing Cardiac exam reveals regular heart sounds S1 and S2 no gallops no murmurs Abdomen is soft nontender no organomegaly with normal bowel sounds Extremity exam reveals no edema no cyanosis or clubbing Neurological examination reveals no gross focal deficit - Labs CBC & Chem 7: 04/24/19 06:55 04/24/19 06:55 Labs: Abnormal Lab Results - Last 24 Hours (Table) 04/23/19 04/23/19 04/23/19 Range/Units 11:47 16:59 20:16 RBC (4.30-5.90) m/uL Hgb (13.0-17.5) gm/dL Hct (39.0-53.0) % RDW (11.5-15.5) % Plt Count (150-450) k/uL Lymphocytes # (1.0-4.8) k/uL PT (9.0-12.0) sec INR (<1.2) Potassium (3.5-5.1) mmol/L Carbon Dioxide (22-30) mmol/L BUN (9-20) mg/dL Creatinine (0.66-1.25) mg/dL Glucose (74-99) mg/dL POC Glucose (mg/dL) 189 H 190 H 190 H (75-99) mg/dL 04/24/19 04/24/19 04/24/19 Range/Units 06:50 06:55 06:55 RBC 3.56 L (4.30-5.90) m/uL Hgb 11.1 L (13.0-17.5) gm/dL Hct 34.4 L (39.0-53.0) % RDW 15.6 H (11.5-15.5) % Plt Count 137 L (150-450) k/uL Lymphocytes # 0.2 L (1.0-4.8) k/uL PT 25.6 H (9.0-12.0) sec INR 2.6 H (<1.2) Potassium (3.5-5.1) mmol/L Carbon Dioxide (22-30) mmol/L BUN (9-20) mg/dL Creatinine (0.66-1.25) mg/dL Glucose (74-99) mg/dL POC Glucose (mg/dL) 192 H (75-99) mg/dL 04/24/19 Range/Units 06:55 RBC (4.30-5.90) m/uL Hgb (13.0-17.5) gm/dL Hct (39.0-53.0) % RDW (11.5-15.5) % Plt Count (150-450) k/uL Lymphocytes # (1.0-4.8) k/uL PT (9.0-12.0) sec INR (<1.2) Potassium 5.2 H (3.5-5.1) mmol/L Carbon Dioxide 19 L (22-30) mmol/L BUN 106 H* (9-20) mg/dL Creatinine 2.64 H (0.66-1.25) mg/dL Glucose 156 H (74-99) mg/dL POC Glucose (mg/dL) (75-99) mg/dL Microbiology - Last 24 Hours (Table) 04/23/19 11:30 Gram Stain - Final Sputum Sputum Culture - Final Assessment and Plan Assessment: 1. Shortness of breath and hypoxemia likely multifactorial. Per cardiology symptoms are likely related to his valvular heart disease and uncontrolled hypertension. cardiology has increased the Lopressor from 25 mg once a day to twice a day. symptoms also could be related to CHF exacerbation and possible COPD. Patient has been seen by both cardiology and pulmonary services. Cardiology has cleared patient for discharge 2. Acute hypoxic respiratory failure:secondary to CHF exacerbation and COPD exacerbation. Patient is usually not on oxygen at home. 3. Acute on chronic diastolic CHF exacerbation: Chest x-ray showing new trace pleural effusion and bibasilar airspace disease, possibly atelectasis. Correlate for CHF. BNP 1040. Patient did receive a dose of IV Lasix in the emergency room. Lasix dose had been decreased by PCP over the last month from 40 mg twice a day to once a day. Echo completed showing an EF of 55-60%. Left atrium severely dilated, severe tricuspid regurgitation, mild aortic reg urgitation, mild mitral regurgitation and moderate pulmonary hypertension. Patient seen by cardiology services 4. Acute COPD exacerbation: continue IV Solu-Medrol. Continue DuoNeb updrafts. Pulmonary following. Patient has been transitioned to oral Lasix per pulmonary 5. History of chronic atrial fibrillation anticoagulated with Coumadin. INR Is 3.5. Pharmacy dosing Coumadin. No Coumadin scheduled for tonight. INR today 2.6. She maintained on pharmacy dosing Coumadin 6. History of atrial septal defect status post closure in 2012 7. History of coronary artery disease status post cardiac stents 8. History of myocardial infarction 9. History of obstructive sleep apnea uses CPAP nightly. 10. Chronic kidney disease stage III. Creatinine since December is been around 1.8. concerns for possible obstructive uropathy due to patient's history of elevated PSA. He does follow with Dr. Morataya. kidney ultrasound did not reveal any evidence of obstructive uropathy, nephrology consultation requested. Check postvoid residuals. 11. History of moderate to severe pulmonary hypertension 12. essential hypertension: Continue current blood pressure medications Cozaar and Norvasc 13. Hyperlipidemia continue statin 14. acute kidney injury due to diuretics. We'll decrease Lasix from 40 mg by mouth twice a day to once a day.epeat labs in a.m. nephrology services are following. Lasix has been DC'd. Patient maintained on normal saline at 75. Current creatinine 2.64 and bun 106. 15. Patient now complaining of cough with some sputum production. We'll start Rocephin 1 g daily. Check sputum culture DVT prophylaxis Coumadin. GI prophylaxis Pepcid. Cardiology has cleared patient for discharge Nephrology is following for acute kidney injury Pulmonary service is following for COPD exacerbation I performed an examination of the patient and discussed their management with the Nurse Practitioner. I have reviewed the Nurse Practitioner's notes and agree with the documented findings and plan of care
[2019-04-24 11:41] LABS: Glucose,Whole Blood 174 mg/dL (75-99)
--- NOTE | 2019-04-24 11:56 | P.PN ---
Subjective Progress Note Date: 04/24/19 Principal diagnosis: Shortness of breath, related to a mild component of CHF/fluid overload and's exacerbation of COPD very pleasant 79-year-old male patient, coming in for exertional dyspnea. Over the past month or so, the patient has noted some worsening in his pulmonary status pressure with exertion and he was feeling some shortness of breath and congestion in his throat/upper chest area. He had some congested, unable to bring up any sputum. He had no chest pain. He has chronic swelling in lower extremities. No palpitations. He decided to come in for further evaluation. Chest x-ray was done and shows thyromegaly and engorgement of the pulmonary arteries with possibly some small bilateral pleural effusions. Otherwise no acute abnormalities noted. Note that the patient is known to have coronary artery disease and he had undergone previous coronary stenting. He has also history of atrial fibrillation. He has sick sinus syndrome and currently is a pacemaker in place. He has been maintained on long-term anticoagulation with warfarin. Upon further review, I noted that the patient has also history of hypertension, hyperlipidemia, gout, his PSA has been gradually going up and the patient is being followed up with urology in that regard. He also developed acute kidney insufficiency with a creatinine is at 1.8 and past several months his kidney function has been off lightly elevated. This current admission, the patient was found to have a therapeutic INR of 2.9. Creatinine is at 1.8 consistent with chronic stage III kidney disease. White cell count is not elevated at 7.2. His hemoglobin is at 11.1. The electrolytes are all within normal limits. His urinalysis on 03/18/2019 was within normal. she also has history of obstructive sleep apnea. He is maintained on CPAP therapy. His previous echocardiogram at shown acomponent of pulmonary hypertension with a PA pressure of around 65. He was evaluated by Dr. Chakraborty I was asked to continue the CPAP therapy for the time being. No further interventional workup was done regarding his pulmonary hypertension. His last CAT scan of the chest Was done on August 2018 showed bilateral pleural effusion right more than left On today's evaluation of ,019 and seeing the patient for a follow-up. He still reported some limited congestion. No angina. No palpitations. No chest pain. He was placed on oral Lasix. Chest x-ray was reviewed and there is some mild pulmonary vascular congestion. Lower sodium is improved. Echocardiogram showed an EF of around 55-60% and the patient has severe pulmonary hypertension with a pressure of 67 and his RV is quite dilated at this point in time and he has signs of right-sided heart failure along with mild concentric LVH. On 04/22/2019 I'm seeing the patient for a follow-up. Still struggling with his breathing. He has some limited exertional dyspnea. He also is reporting some congestion in his chest and his throat area. He is currently off diuretics. His renal function decompensated while being on Lasix and he was taken off the Lasix and he was seen by nephrology today. He is drinking water for now. He is trying to give me a sputum sample for cultures. He remains on IV Solu Medrol 60 every 6 hours. I asked him to bring in his CPAP machine from home for me to check and make sure it's functioning appropriately. He remains on warfarin and PT/INR is being monitored and is slightly supratherapeutic on today's delphine luation. No fever. No chills. On 04/24/2019 patient is seen in follow-up on medical surgical floor, he sitting up in the bed, in no acute distress, he is on room air, he still has some exertional dyspnea, but overall seems to be in no acute distress, pulse ox is 92% on room air, no fever no chills, hemodynamically stable, lung sounds are essentially clear on today's exam, no rhonchi, no wheezing, no rales. Lasix is on hold, patient is receiving IV hydration, today's labs have been reviewed, showing BUN is 106, creatinine is slightly improved at 2.64, sodium is 137, potassium is 5.2, chloride is 105, CO2 is 19, white blood cell count is 7.6 and hemoglobin is 11.1. No Cough or congestion, no wheezing, patient is tolerating ambulation. Objective - Vital Signs Vital signs: Vital Signs Temp 98.6 F 04/24/19 07:00 Pulse 64 04/24/19 11:30 Resp 18 04/24/19 11:21 BP 159/74 04/24/19 07:00 Pulse Ox 93 L 04/24/19 08:35 Intake & Output 12/22/19 12/23/19 12/23/19 18:59 06:59 18:59 Intake Total 900 1020 Balance 900 1020 Intake: Intake, IV Titration 900 Amount Sodium Chloride 0.9% 1, 900 000 ml @ 75 mls/hr IV . [id number] [facility] Rx#:[id number] Oral 900 120 Other: Voiding Method Toilet Toilet Toilet # Voids 2 1 - Exam GENERAL EXAM: Alert, very pleasant, 79-year-old white male, on room air, with pulse ox of 93%, comfortable in no apparent distress. HEAD: Normocephalic/atraumatic. EYES: Normal reaction of pupils, equal size. Conjunctiva pink, sclera white. NOSE: Clear with pink turbinates. THROAT: No erythema or exudates. NECK: No masses, no JVD, no thyroid enlargement, no adenopathy. CHEST: No chest wall deformity. Symmetrical expansion. LUNGS: Equal air entry with no crackles, wheeze, rhonchi or dullness. CVS: Regular rate and rhythm, normal S1 and S2, no gallops, no murmurs, no rubs ABDOMEN: Soft, nontender. No hepatosplenomegaly, normal bowel sounds, no guarding or rigidity. EXTREMITIES: No clubbing, no edema, no cyanosis, 2+ pulses and upper and lower extremities. MUSCULOSKELETAL: Muscle strength and tone normal. SPINE: No scoliosis or deformity SKIN: No rashes CENTRAL NERVOUS SYSTEM: Alert and oriented -3. No focal deficits, tone is normal in all 4 extremities. PSYCHIATRIC: Alert and oriented -3. Appropriate affect. Intact judgment and insight. - Labs CBC & Chem 7: 04/24/19 06:55 04/24/19 06:55 Labs: Abnormal Lab Results - Last 24 Hours (Table) 04/23/19 04/23/19 04/23/19 Range/Units 11:47 16:59 20:16 RBC (4.30-5.90) m/uL Hgb (13.0-17.5) gm/dL Hct (39.0-53.0) % RDW (11.5-15.5) % Plt Count (150-450) k/uL Lymphocytes # (1.0-4.8) k/uL PT (9.0-12.0) sec INR (<1.2) Potassium (3.5-5.1) mmol/L Carbon Dioxide (22-30) mmol/L BUN (9-20) mg/dL Creatinine (0.66-1.25) mg/dL Glucose (74-99) mg/dL POC Glucose (mg/dL) 189 H 190 H 190 H (75-99) mg/dL 04/24/19 04/24/19 04/24/19 Range/Units 06:50 06:55 06:55 RBC 3.56 L (4.30-5.90) m/uL Hgb 11.1 L (13.0-17.5) gm/dL Hct 34.4 L (39.0-53.0) % RDW 15.6 H (11.5-15.5) % Plt Count 137 L (150-450) k/uL Lymphocytes # 0.2 L (1.0-4.8) k/uL PT 25.6 H (9.0-12.0) sec INR 2.6 H (<1.2) Potassium (3.5-5.1) mmol/L Carbon Dioxide (22-30) mmol/L BUN (9-20) mg/dL Creatinine (0.66-1.25) mg/dL Glucose (74-99) mg/dL POC Glucose (mg/dL) 192 H (75-99) mg/dL 04/24/19 04/24/19 Range/Units 06:55 11:40 RBC (4.30-5.90) m/uL Hgb (13.0-17.5) gm/dL Hct (39.0-53.0) % RDW (11.5-15.5) % Plt Count (150-450) k/uL Lymphocytes # (1.0-4.8) k/uL PT (9.0-12.0) sec INR (<1.2) Potassium 5.2 H (3.5-5.1) mmol/L Carbon Dioxide 19 L (22-30) mmol/L BUN 106 H* (9-20) mg/dL Creatinine 2.64 H (0.66-1.25) mg/dL Glucose 156 H (74-99) mg/dL POC Glucose (mg/dL) 174 H (75-99) mg/dL Microbiology - Last 24 Hours (Table) 04/23/19 11:30 Gram Stain - Final Sputum Sputum Culture - Final Assessment and Plan Plan: Assessment: #1. Shortness of breath, multifactorial, related to mild exacerbation of CHF/fluid overload, and component of COPD exacerbation #2. Coronary artery disease with previous coronary artery stenting #3. Chronic atrial fibrillation, patient has a permanent pacemaker and his rhythm is paced #4. Sick sinus syndrome, post pacemaker insertion #5. Obstructive sleep apnea maintained on CPAP therapy #6. Secondary pulmonary hypertension, with right-sided pressure at 65 mmHg #7. Chronic kidney disease stage III, elevated PSA, followed by urology #8. Acute kidney injury related to aggressive diuresis, currently off Lasix #9. History of bilateral pleural effusions, not seen on most recent chest x-ray #10. Hyperlipidemia Plan: We will addition the IV steroids to oral prednisone, patient is on room air, tolerating ambulation, his Lasix remain on hold, patient receiving IV hydration, urology is following in regards to renal function, hemodynamically stable, no acute issues overnight, continue nebulized bronchodilators, empiric antibiotics. I performed a history & physical examination of the patient and discussed their management with my nurse practitioner, Yesy Hu. I reviewed the nurse practitioner's note and agree with the documented findings and plan of care. Lung sounds are positive for clear lung sounds. The findings and the impression was discussed with the patient. I attest to the documentation by the nurse practitioner. Time with Patient: Less than 30
[2019-04-24] MEDS: SODIUM CHLORIDE 0.9% 1,000 ML IV SCH (14:02)
--- NOTE | 2019-04-24 14:28 | PN ---
PROGRESS NOTE Patient is seen for followup for acute kidney injury. Renal function has improved with creatinine down to 2.6 from 2.8 yesterday. Patient denies any significant complaints. He is currently maintained on IV antibiotics. IV fluids are running at 75 mL an hour. PHYSICAL EXAMINATION: On examination today, blood pressure was 159/74, heart rate of 66 per minute, patient is afebrile. Examination of the heart S1, S2. Examination of the lungs, bilateral breath sounds are heard. Abdomen is soft, non-tender. [employer] exam grossly intact. LABS: Show sodium 137, potassium 5.2, chloride 105, CO2 is 19, BUN 106, creatinine 2.6, hemoglobin 11.1 g/dL. ASSESSMENT: 1. Acute kidney injury. Renal function slightly improved. Patient was started on IV fluids yesterday. He is encouraged to increase oral intake. Continue to hold diuretics. 2. Chronic kidney disease secondary to nephrosclerosis with most recent creatinine about 1.7 to 1.9 mg/dL. 3. Mild non gap and gap metabolic acidosis from chronic kidney disease, maintained on medications, currently improved. 4. Mild hyperkalemia, continue to monitor for now. Control blood sugars. 5. Chronic atrial fibrillation, maintained on anticoagulation. 6. History of coronary artery disease, status post coronary artery bypass surgery. PLAN: Repeat labs in a.m. Will likely discontinue IV fluids tomorrow. Encourage increased oral intake. MMODL / IJN: [id number] /
[2019-04-24 16:44] LABS: Glucose,Whole Blood 200 mg/dL (75-99)
[2019-04-24] MEDS ORDERED: WARFARIN 1.5 MG TAB PO ONE (18:00)
[2019-04-24 20:09] LABS: Glucose,Whole Blood 137 mg/dL (75-99)
[2019-04-24] MEDS: ATORVASTATIN 40 MG TAB PO SCH (20:14)
[2019-04-24] MEDS: ASPIRIN 81 MG PO SCH (20:14)
[2019-04-24] MEDS: amLODIPine 10 MG TAB PO SCH (20:14)
[2019-04-25] MEDS: SODIUM CHLORIDE 0.9% 1,000 ML IV SCH (05:53)
--- NOTE | 2019-04-25 07:01 | XR ---
EXAMINATION TYPE: XR chest 2V DATE OF EXAM: 04/25/2019 COMPARISON: Chest x-ray [address] chest August 24, 2018 HISTORY: CHF per order. TECHNIQUE: Frontal and lateral views of the chest are obtained. FINDINGS: There is persistent cardiomegaly with single lead pacemaker. There is worsening right grea ter than left bilateral pleural effusions and associated bibasilar acute atelectasis and/or infiltrat e. Upper lungs remain clear without pneumothorax. Osseous structures are intact. Cardiac aortic septa l closure device noted on lateral view. IMPRESSION: Cardiomegaly with small to moderate size right greater than left pleural effusions incre ased in size from most recent x-ray and associated bibasilar acute atelectasis and/or infiltrate also more prominent from most recent x-ray. Correlate for worsening CHF exacerbation.
[2019-04-25] MEDS: predniSONE 10 MG TAB PO SCH (07:03)
[2019-04-25] MEDS: MULTIVITAMINS, THERA 1 EACH TAB PO SCH (07:03)
[2019-04-25] MEDS: ALLOPURINOL 300 MG TAB PO SCH (07:03)
[2019-04-25] MEDS: FAMOTIDINE 20 MG TAB PO SCH (07:03)
[2019-04-25] MEDS: LORATADINE 10 MG TAB PO SCH (07:03)
[2019-04-25] MEDS: METOPROLOL TARTRATE 25 MG TAB PO SCH ×2 (07:03→20:42)
[2019-04-25] MEDS: ASCORBIC ACID 500 MG TAB PO SCH (07:04)
[2019-04-25 07:22] LABS: Glucose,Whole Blood 117 mg/dL (75-99)
[2019-04-25] MEDS: INSULIN ASPART (NovoLOG) 100 UNIT/ML VIAL SQ SCH ×4 (07:33→21:42)
[2019-04-25 07:59] LABS: INR 2.3 (<1.2); Prothrombin Time 22.4 sec (9.0-12.0)
[2019-04-25 08:01] LABS: Albumin 3.7 g/dL (3.5-5.0); Calcium 8.9 mg/dL (8.4-10.2); Potassium 4.9 mmol/L (3.5-5.1); Total Bilirubin 0.8 mg/dL (0.2-1.3); Total Protein 6.3 g/dL (6.3-8.2)
[2019-04-25] MEDS: IPRATROPIUM-ALBUTEROL 3 ML NEB INHALATION SCH ×4 (08:23→22:06)
--- NOTE | 2019-04-25 10:08 | US ---
EXAMINATION TYPE: US chest DATE OF EXAM: 04/25/2019 COMPARISON: xray earlier today. CLINICAL HISTORY: bilateral pleural effusions. TECHNIQUE: Targeted ultrasound of the posterior lower bilateral hemithoraces EXAM MEASUREMENTS: Right Pleural Effusion pocket size: 2.2 cm Right skin surface to fluid distance: 3.0 cm Left Pleural Effusion pocket size: 4.2 cm Left skin surface to fluid distance: 2.3 cm Left side marked for possible thoracentesis outside the dept. Pulmonologists are able to review the images in the patient?s EMR. Small bilateral pleural effusions seen on images saved which correlate with recent x-ray. IMPRESSIONS: As above.
--- NOTE | 2019-04-25 10:43 | P.PN ---
Subjective Progress Note Date: 04/25/19 Principal diagnosis: Shortness of breath, related to a mild component of CHF/fluid overload and's exacerbation of COPD very pleasant 79-year-old male patient, coming in for exertional dyspnea. Over the past month or so, the patient has noted some worsening in his pulmonary status pressure with exertion and he was feeling some shortness of breath and congestion in his throat/upper chest area. He had some congested, unable to bring up any sputum. He had no chest pain. He has chronic swelling in lower extremities. No palpitations. He decided to come in for further evaluation. Chest x-ray was done and shows thyromegaly and engorgement of the pulmonary arteries with possibly some small bilateral pleural effusions. Otherwise no acute abnormalities noted. Note that the patient is known to have coronary artery disease and he had undergone previous coronary stenting. He has also history of atrial fibrillation. He has sick sinus syndrome and currently is a pacemaker in place. He has been maintained on long-term anticoagulation with warfarin. Upon further review, I noted that the patient has also history of hypertension, hyperlipidemia, gout, his PSA has been gradually going up and the patient is being followed up with urology in that regard. He also developed acute kidney insufficiency with a creatinine is at 1.8 and past several months his kidney function has been off lightly elevated. This current admission, the patient was found to have a therapeutic INR of 2.9. Creatinine is at 1.8 consistent with chronic stage III kidney disease. White cell count is not elevated at 7.2. His hemoglobin is at 11.1. The electrolytes are all within normal limits. His urinalysis on 03/18/2019 was within normal. she also has history of obstructive sleep apnea. He is maintained on CPAP therapy. His previous echocardiogram at shown acomponent of pulmonary hypertension with a PA pressure of around 65. He was evaluated by Dr. Chakraborty I was asked to continue the CPAP therapy for the time being. No further interventional workup was done regarding his pulmonary hypertension. His last CAT scan of the chest Was done on August 2018 showed bilateral pleural effusion right more than left On today's evaluation of ,019 and seeing the patient for a follow-up. He still reported some limited congestion. No angina. No palpitations. No chest pain. He was placed on oral Lasix. Chest x-ray was reviewed and there is some mild pulmonary vascular congestion. Lower sodium is improved. Echocardiogram showed an EF of around 55-60% and the patient has severe pulmonary hypertension with a pressure of 67 and his RV is quite dilated at this point in time and he has signs of right-sided heart failure along with mild concentric LVH. On 04/22/2019 I'm seeing the patient for a follow-up. Still struggling with his breathing. He has some limited exertional dyspnea. He also is reporting some congestion in his chest and his throat area. He is currently off diuretics. His renal function decompensated while being on Lasix and he was taken off the Lasix and he was seen by nephrology today. He is drinking water for now. He is trying to give me a sputum sample for cultures. He remains on IV Solu Medrol 60 every 6 hours. I asked him to bring in his CPAP machine from home for me to check and make sure it's functioning appropriately. He remains on warfarin and PT/INR is being monitored and is slightly supratherapeutic on today's delphine luation. No fever. No chills. On 04/24/2019 patient is seen in follow-up on medical surgical floor, he sitting up in the bed, in no acute distress, he is on room air, he still has some exertional dyspnea, but overall seems to be in no acute distress, pulse ox is 92% on room air, no fever no chills, hemodynamically stable, lung sounds are essentially clear on today's exam, no rhonchi, no wheezing, no rales. Lasix is on hold, patient is receiving IV hydration, today's labs have been reviewed, showing BUN is 106, creatinine is slightly improved at 2.64, sodium is 137, potassium is 5.2, chloride is 105, CO2 is 19, white blood cell count is 7.6 and hemoglobin is 11.1. No Cough or congestion, no wheezing, patient is tolerating ambulation. On 04/25/2019 patient seen in follow-up on medical surgical floor. He states he is slightly more short of breath with exertion, but no acute distress, he remains on supplemental oxygen, currently at 2 L, his pulse ox is 95%, hemodynamically patient is stable, patient has been afebrile. Repeat chest x- ray today showed small to moderate-sized right greater than left pleural effusions increased in size from most recent chest x-ray with bibasilar acute atelectasis. Patient Kamila remains on hold for acute kidney injury, and patient is actually getting IV hydration with 0.9 normal seen at a rate of 75 ML per hour. Today's labs have been reviewed, slight improvement in patient's renal profile, B1 is 100, creatinine is 2.38, sodium is 137, potassium is 4.9, chloride is 108, CO2 is 18, INR is 2.3 on today's labs. Sputum culture showed Crista albicans, no other growth, patient remains on empiric antibiotics in the form of Rocephin. There have been no cough or congestion, no complaints of chest pain, no fever or chills. Ultrasound of the chest has been ordered and reviewed, showing right pleural effusion pocket of 2.2 cm, and left pleural effusion pocket of 4.2 cm Objective - Vital Signs Vital signs: Vital Signs Temp 97.8 F 04/25/19 07:00 Pulse 68 04/25/19 08:36 Resp 16 04/25/19 07:00 BP 140/73 04/25/19 07:00 Pulse Ox 95 04/25/19 08:25 Intake & Output 04/24/19 04/25/19 04/25/19 18:59 06:59 18:59 Intake Total 811 900 236 Balance 811 900 236 Intake: Intake, IV Titration 575 900 Amount Sodium Chloride 0.9% 1, 525 900 000 ml @ 75 mls/hr IV . [id number] PHIL Rx#:[id number] cefTRIAXone 1 gm In 50 Sodium Chloride 0.9% 50 ml @ 100 mls/hr IVPB Q24HR PHIL Rx#:[id number] Oral 236 236 Other: Voiding Method Toilet Toilet - Exam GENERAL EXAM: Alert, very pleasant, 79-year-old white male, 2 L of oxygen, with pulse ox of 95%, comfortable in no apparent distress. HEAD: Normocephalic/atraumatic. EYES: Normal reaction of pupils, equal size. Conjunctiva pink, sclera white. NOSE: Clear with pink turbinates. THROAT: No erythema or exudates. NECK: No masses, no JVD, no thyroid enlargement, no adenopathy. CHEST: No chest wall deformity. Symmetrical expansion. LUNGS: Equal air entry with no crackles, wheeze, rhonchi or dullness. Diminished breath sounds at the right base CVS: Regular rate and rhythm, normal S1 and S2, no gallops, no murmurs, no rubs ABDOMEN: Soft, nontender. No hepatosplenomegaly, normal bowel sounds, no guarding or rigidity. EXTREMITIES: No clubbing, no edema, no cyanosis, 2+ pulses and upper and lower extremities. MUSCULOSKELETAL: Muscle strength and tone normal. SPINE: No scoliosis or deformity SKIN: No rashes CENTRAL NERVOUS SYSTEM: Alert and oriented -3. No focal deficits, tone is normal in all 4 extremities. PSYCHIATRIC: Alert and oriented -3. Appropriate affect. Intact judgment and insight. - Labs CBC & Chem 7: 04/24/19 06:55 04/25/19 07:05 Labs: Abnormal Lab Results - Last 24 Hours (Table) 04/24/19 04/24/19 04/24/19 Range/Units 11:40 16:43 20:07 PT (9.0-12.0) sec INR (<1.2) Chloride (98-107) mmol/L Carbon Dioxide (22-30) mmol/L BUN (9-20) mg/dL Creatinine (0.66-1.25) mg/dL Glucose (74-99) mg/dL POC Glucose (mg/dL) 174 H 200 H 137 H (75-99) mg/dL 04/25/19 04/25/19 04/25/19 Range/Units 07:05 07:06 07:20 PT 22.4 H (9.0-12.0) sec INR 2.3 H (<1.2) Chloride 108 H (98-107) mmol/L Carbon Dioxide 18 L (22-30) mmol/L BUN 100 H (9-20) mg/dL Creatinine 2.38 H (0.66-1.25) mg/dL Glucose 110 H (74-99) mg/dL POC Glucose (mg/dL) 117 H (75-99) mg/dL Microbiology - Last 24 Hours (Table) 04/23/19 11:30 Gram Stain - Final Sputum Sputum Culture - Final Crista albicans Assessment and Plan Plan: Assessment: #1. Shortness of breath, multifactorial, related to mild exacerbation of CHF/fluid overload, and component of COPD exacerbation #2. Coronary artery disease with previous coronary artery stenting #3. Chronic atrial fibrillation, patient has a permanent pacemaker and his rhythm is paced #4. Sick sinus syndrome, post pacemaker insertion #5. Obstructive sleep apnea maintained on CPAP therapy #6. Secondary pulmonary hypertension, with right-sided pressure at 65 mmHg #7. Chronic kidney disease stage III, elevated PSA, followed by urology #8. Acute kidney injury related to aggressive diuresis, currently off Lasix #9. History of bilateral pleural effusions, not seen on most recent chest x-ray #10. Hyperlipidemia Plan: Continue with oral steroids, nebulized bronchodilators, today's chest x-ray has been reviewed showing increasing bilateral pleural effusions, ultrasound of the chest has been ordered and reviewed showing small pleural effusion pockets, too small to drain, may consider a dose of diuretics, clinically patient remains stable. No fever no chills, sputum culture showed no growth, remains on empiric antibiotics, vital signs are stable. I performed a history & physical examination of the patient and discussed their management with my nurse practitioner, Yesy Hu. I reviewed the nurse practitioner's note and agree with the documented findings and plan of care. Lung sounds are positive for clear lung sounds. The findings and the impression was discussed with the patient. I attest to the documentation by the nurse practitioner. Time with Patient: Less than 30
--- NOTE | 2019-04-25 10:58 | P.PN ---
Subjective Progress Note Date: 04/25/19 this is a 79-year-old male, a patient of Dr. Brink. He has a known past medical history of chronic atrial fibrillation antic PFO status post percutaneous closure, pacemaker placement for sick sinus syndrome, obstructive sleep apnea uses CPAPmachine, hypertension, myocardial infarction, severe pulmonary hypertension and a prior history of smoking. Patient presents to the emergency room with increasing shortness of breath over the last 2 weeks. Patient does report that his PCP had decreased his Lasix from 40 mg twice a day to once a day about a month ago. He does notice at evening time he does have some swelling in the legs. And occasionally he'll take Lasix 20 mg before bedtime. He denies any cough, fever, chills or sweats, or chest pain. patient seen in the ER. His oxygen saturation did decrease down to 88% he's currently on 2 L at 93%. He did receive a dose of IV Lasix, IV steroids and nebulizer treatments in ER for COPD exacerbation and CHF exacerbation. Both cardiology and pulmonary service has been consult. D-dimer is normal at 0.25. Creatinine elevated at 1.8 nd in December creatinine was 1.8. Patient also had reported some swelling around his nose this morning which now resolved. He denies any tongue or lip swelling. 04/21/2019 patient still reporting some shortness of breath. Still on 3 L of oxygen. He has been seen by both cardiology and pulmonary service. Patient denies any chest pain, nausea or vomiting bowel movement changes or urinary symptoms. Creatinine is up to 2.17. Patient is having hyperglycemia secondary to steroids insulin sliding scale has been added. On 04/22/2019 patient is still complaining of shortness of breath with any activity otherwise he denies any complaints there is no fever or chills no headache or dizziness no chest pain no cough no nausea or vomiting no abdominal pain no diarrhea no burning with urination no frequency or urgency and no hematuria On 04/23/2019 patient was seen and examined on the medical floor he is alert and oriented 3 in no apparent distress he is still complaining of shortness of breath with activity otherwise no complaints there is no fever or chills no headache or dizziness no chest pain no cough no nausea or vomiting no abdominal pain no diarrhea no burning was urination no frequency or urgency and no hematuria. Kidney function is still worsening was elevated BUN and creatinine today. Nephrology consultation requested patient was seen by Dr. Dr. Cheung, he is off diuretic at this time On 04/24/2019 patient alert and oriented 3. Patient still having some shortness of breath with activity but denies any chest pain. Creatinine today 2.64 and bun 106. Nephrology services are following. Patient is also still maintained on IV Solu-Medrol. Lasix DC'd. Patient is having bowel movements. Patient denies chest pain. Patient denies nausea vomiting or diarrhea. Patient denies any urinary burning or frequency On 04/25/2019 patient's alert and oriented 3. Patient having some increased shortness of breath today. Chest x-ray chest ultrasound completed per pulmonary. Kidney enzymes slightly improved. Nephrology services are following. Per pulmonary pleural effusion seen on ultrasound to small to drain. Nephrology and pulmonary services are following. Patient denies chest pain. Patient denies any nausea vomiting or diarrhea. Patient denies any urinary burning or frequency Objective - Vital Signs Vital signs: Vital Signs Temp 97.8 F 04/25/19 07:00 Pulse 68 04/25/19 08:36 Resp 16 04/25/19 07:00 BP 140/73 04/25/19 07:00 Pulse Ox 95 04/25/19 08:25 Intake & Output 04/24/19 04/25/19 04/25/19 18:59 06:59 18:59 Intake Total 811 900 236 Balance 811 900 236 Intake: Intake, IV Titration 575 900 Amount Sodium Chloride 0.9% 1, 525 900 000 ml @ 75 mls/hr IV . [id number] PHIL Rx#:[id number] cefTRIAXone 1 gm In 50 Sodium Chloride 0.9% 50 ml @ 100 mls/hr IVPB Q24HR PHIL Rx#:[id number] Oral 236 236 Other: Voiding Method Toilet Toilet - Exam In general patient is alert and oriented 3 in no apparent distress HEENT head normocephalic and atraumatic Neck is supple no JVD no goiter no lymphadenopathy Chest exam reveals a few scattered crackles bilaterally no wheezing Cardiac exam reveals regular heart sounds S1 and S2 no gallops no murmurs Abdomen is soft nontender no organomegaly with normal bowel sounds Extremity exam reveals no edema no cyanosis or clubbing Neurological examination reveals no gross focal deficit - Labs CBC & Chem 7: 04/24/19 06:55 04/25/19 07:05 Labs: Abnormal Lab Results - Last 24 Hours (Table) 04/24/19 04/24/19 04/24/19 Range/Units 11:40 16:43 20:07 PT (9.0-12.0) sec INR (<1.2) Chloride (98-107) mmol/L Carbon Dioxide (22-30) mmol/L BUN (9-20) mg/dL Creatinine (0.66-1.25) mg/dL Glucose (74-99) mg/dL POC Glucose (mg/dL) 174 H 200 H 137 H (75-99) mg/dL 04/25/19 04/25/19 04/25/19 Range/Units 07:05 07:06 07:20 PT 22.4 H (9.0-12.0) sec INR 2.3 H (<1.2) Chloride 108 H (98-107) mmol/L Carbon Dioxide 18 L (22-30) mmol/L BUN 100 H (9-20) mg/dL Creatinine 2.38 H (0.66-1.25) mg/dL Glucose 110 H (74-99) mg/dL POC Glucose (mg/dL) 117 H (75-99) mg/dL Microbiology - Last 24 Hours (Table) 04/23/19 11:30 Gram Stain - Final Sputum Sputum Culture - Final Crista albicans Assessment and Plan Assessment: 1. Shortness of breath and hypoxemia likely multifactorial. Per cardiology symptoms are likely related to his valvular heart disease and uncontrolled hypertension. cardiology has increased the Lopressor from 25 mg once a day to twice a day. symptoms also could be related to CHF exacerbation and possible COPD. Patient has been seen by both cardiology and pulmonary services. Cardiology has cleared patient for discharge. Chest x-ray completed showing cardiomegaly with small to moderate size right greater than left pleural effu natividad increased in size from most recent. Associated bibasilar atelectasis and/or infiltrate also prominent recent x-ray correlate for worsening CHF. Chest ultrasound completed per pulmonary. Per pulmonary pleural effusion too small to drain at this time will consider adding small dose of diuretic. 2. Acute hypoxic respiratory failure:secondary to CHF exacerbation and COPD exacerbation. Patient is usually not on oxygen at home. 3. Acute on chronic diastolic CHF exacerbation: Chest x-ray showing new trace pleural effusion and bibasilar airspace disease, possibly atelectasis. Correlate for CHF. BNP 1040. Patient did receive a dose of IV Lasix in the emergency room. Lasix dose had been decreased by PCP over the last month from 40 mg twice a day to once a day. Echo completed showing an EF of 55-60%. Left atrium severely dilated, severe tricuspid regurgitation, mild aortic regurg itation, mild mitral regurgitation and moderate pulmonary hypertension. Patient seen by cardiology services 4. Acute COPD exacerbation: continue IV Solu-Medrol. Continue DuoNeb updrafts. Pulmonary following. Patient has been transitioned to oral prednisone per pulmonary 5. History of chronic atrial fibrillation anticoagulated with Coumadin. INR Is 3.5. Pharmacy dosing Coumadin. No Coumadin scheduled for tonight. INR today 2.6. She maintained on pharmacy dosing Coumadin 6. History of atrial septal defect status post closure in 2012 7. History of coronary artery disease status post cardiac stents 8. History of myocardial infarction 9. History of obstructive sleep apnea uses CPAP nightly. 10. Chronic kidney disease stage III. Creatinine since December is been around 1.8. concerns for possible obstructive uropathy due to patient's history of elevated PSA. He does follow with Dr. Morataya. kidney ultrasound did not reveal any evidence of obstructive uropathy. Nephrology services are following. Lasix on hold continue normal saline at 75 11. History of moderate to severe pulmonary hypertension 12. essential hypertension: Continue current blood pressure medications Cozaar and Norvasc 13. Hyperlipidemia continue statin 14. acute kidney injury due to diuretics. We'll decrease Lasix from 40 mg by mouth twice a day to once a day.epeat labs in a.m. nephrology services are following. Lasix has been DC'd. Patient maintained on normal saline at 75. Current creatinine 2.64 and bun 106. 15. Patient now complaining of cough with some sputum production. We'll start Rocephin 1 g daily. Check sputum culture DVT prophylaxis Coumadin. GI prophylaxis Pepcid. Cardiology has cleared patient for discharge Nephrology is following for acute kidney injury Pulmonary service is following for COPD exacerbation I performed an examination of the patient and discussed their management with the Nurse Practitioner. I have reviewed the Nurse Practitioner's notes and a gree with the documented findings and plan of care
[2019-04-25 12:17] LABS: Glucose,Whole Blood 154 mg/dL (75-99)
[2019-04-25] MEDS ORDERED: FUROSEMIDE 10 MG/ML 2 ML VIAL IV STA (15:01)
--- NOTE | 2019-04-25 15:53 | PN ---
PROGRESS NOTE Patient is seen for followup for acute kidney injury. His renal function has improved with creatinine down from 2.8 to 2.3 mg/dL. Patient is currently maintained on IV fluids. However, he is complaining of shortness of breath. Previous creatinine was 1.2 mg/dL. Patient is maintained on updraft treatments as well. Chest x-ray from today shows pleural effusions with bibasilar atelectasis. PHYSICAL EXAMINATION: On examination today, blood pressure was 140/73, heart rate 68 per minute. Patient is afebrile. EXAMINATION OF THE HEART: S1 and S2. EXAMINATION OF LUNGS: Decreased breath sounds at bases. Occasional wheezing is heard. Minimal basal crackles are heard. ABDOMEN: Soft, non-tender. Examination of lower extremities shows no significant edema. LAB: Labs show sodium 137, potassium 4.9, chloride 108. CO2 is 18, BUN 100, creatinine 2.38. ASSESSMENT: 1. Acute kidney injury, prerenal, currently improved; however, patient is in volume overload. I will discontinue the IV fluids. 2. Chronic kidney disease secondary to nephrosclerosis, stage III, baseline creatinine 1.7 to 1.9 mg/dL. 3. Mild non-gap and gap metabolic acidosis, maintained on sodium bicarb. 4. Chronic atrial fibrillation. 5. History of coronary artery disease, status post coronary artery bypass surgery. PLAN: Discontinue IV fluids. I will give a dose of IV Lasix as well today. Repeat labs in a.m. MMODL / IJN: [id number] /
[2019-04-25 17:06] LABS: Glucose,Whole Blood 181 mg/dL (75-99)
[2019-04-25] MEDS ORDERED: WARFARIN 1.5 MG TAB PO ONE (18:00)
[2019-04-25] MEDS: ASPIRIN 81 MG PO SCH (20:42)
[2019-04-25] MEDS: amLODIPine 10 MG TAB PO SCH (20:42)
[2019-04-25] MEDS: ATORVASTATIN 40 MG TAB PO SCH (20:42)
[2019-04-25 20:59] LABS: Glucose,Whole Blood 204 mg/dL (75-99)
[2019-04-26 07:01] LABS: Basophils % (A) 0 %; Eosinophils % (A) 0 %; HCT 34.3 % (39.0-53.0); HGB 10.8 gm/dL (13.0-17.5); Lymphocytes # (A) 0.6 k/uL (1.0-4.8); Lymphocytes % (A) 7 %; MCH 30.1 pg (25.0-35.0); MCHC 31.4 g/dL (31.0-37.0); MCV 95.9 fL (80.0-100.0); Mean Platelet Volume 9.1; Monocytes % (A) 11 %; Neutrophils # (A) 7.5 k/uL (1.3-7.7); Neutrophils % (A) 81 %; Platelet Count 126 k/uL (150-450); RBC 3.57 m/uL (4.30-5.90); RDW 15.5 % (11.5-15.5); WBC 9.3 k/uL (3.8-10.6)
[2019-04-26 07:10] LABS: INR 2.4 (<1.2); Prothrombin Time 23.7 sec (9.0-12.0)
[2019-04-26 07:17] LABS: Glucose,Whole Blood 93 mg/dL (75-99)
[2019-04-26 07:23] LABS: Albumin 3.6 g/dL (3.5-5.0); Calcium 8.4 mg/dL (8.4-10.2); Potassium 4.3 mmol/L (3.5-5.1); Total Bilirubin 0.7 mg/dL (0.2-1.3); Total Protein 6.2 g/dL (6.3-8.2)
[2019-04-26] MEDS: IPRATROPIUM-ALBUTEROL 3 ML NEB INHALATION SCH ×4 (08:01→21:45)
[2019-04-26] MEDS ORDERED: FUROSEMIDE 10 MG/ML 4 ML VIAL IV STA (08:49)
[2019-04-26] MEDS: INSULIN ASPART (NovoLOG) 100 UNIT/ML VIAL SQ SCH ×4 (08:53→20:06)
[2019-04-26] MEDS: ALLOPURINOL 300 MG TAB PO SCH (09:15)
[2019-04-26] MEDS: ASCORBIC ACID 500 MG TAB PO SCH (09:15)
[2019-04-26] MEDS: predniSONE 10 MG TAB PO SCH (09:15)
[2019-04-26] MEDS: FAMOTIDINE 20 MG TAB PO SCH (09:15)
[2019-04-26] MEDS: METOPROLOL TARTRATE 25 MG TAB PO SCH ×2 (09:15→20:06)
[2019-04-26] MEDS: MULTIVITAMINS, THERA 1 EACH TAB PO SCH (09:15)
[2019-04-26] MEDS: LORATADINE 10 MG TAB PO SCH (09:15)
--- NOTE | 2019-04-26 11:21 | P.PN ---
Subjective Progress Note Date: 04/26/19 Principal diagnosis: Acute exacerbation of diastolic congestive heart failure The patient is seen today 04/26/2019 in follow-up on the selective care unit. He is awake and alert in no acute distress. Resting quite comfortably in bed. States he does have some dyspnea on exertion. Dry nonproductive cough. No chills or night sweats. he is maintaining O2 saturations in the 90s on 2 L/m per nasal cannula. He's been afebrile. Hemodynamically stable. Rate is controlled. Sputum culture positive for Crista only. white count 9.3. Hemoglobin 10.8. INR 2.4. Creatinine 2.34. he is continued on bronchodilators,prednisone, ceftriaxone. Received additional Lasix this morni ng. Objective - Vital Signs Vital signs: Vital Signs Temp 98.1 F 04/26/19 07:00 Pulse 76 04/26/19 08:15 Resp 12 04/26/19 08:00 BP 141/61 04/26/19 07:00 Pulse Ox 95 04/26/19 07:00 Intake & Output 04/25/19 04/26/19 04/26/19 18:59 06:59 18:59 Intake Total 236 830 Balance 236 830 Intake: Oral 236 830 Other: Voiding Method Toilet Toilet # Voids 3 2 - Exam GENERAL EXAM: Alert, pleasant, 79-year-old male patient, 2 L of oxygen, with pulse ox of 95%, comfortable in no apparent distress. HEAD: Normocephalic/atraumatic. EYES: Normal reaction of pupils, equal size. Conjunctiva pink, sclera white. NOSE: Clear with pink turbinates. THROAT: No erythema or exudates. NECK: No masses, no JVD, no thyroid enlargement, no adenopathy. CHEST: No chest wall deformity. Symmetrical expansion. LUNGS: Equal air entry with no crackles, wheeze, rhonchi or dullness. Diminished breath sounds at the right base CVS: Regular rate and rhythm, normal S1 and S2, no gallops, no murmurs, no rubs ABDOMEN: Soft, nontender. No hepatosplenomegaly, normal bowel sounds, no guarding or rigidity. EXTREMITIES: No clubbing, no edema, no cyanosis, 2+ pulses and upper and lower extremities. MUSCULOSKELETAL: Muscle strength and tone normal. SPINE: No scoliosis or deformity SKIN: No rashes CENTRAL NERVOUS SYSTEM: No focal deficits, tone is normal in all 4 extremities. PSYCHIATRIC: Alert and oriented -3. Appropriate affect. Intact judgment and insight. - Labs CBC & Chem 7: 04/26/19 06:25 04/26/19 06:25 Labs: Abnormal Lab Results - Last 24 Hours (Table) 04/25/19 04/25/19 04/25/19 Range/Units 12:16 17:02 20:57 RBC (4.30-5.90) m/uL Hgb (13.0-17.5) gm/dL Hct (39.0-53.0) % Plt Count (150-450) k/uL Lymphocytes # (1.0-4.8) k/uL PT (9.0-12.0) sec INR (<1.2) Chloride (98-107) mmol/L Carbon Dioxide (22-30) mmol/L BUN (9-20) mg/dL Creatinine (0.66-1.25) mg/dL Glucose (74-99) mg/dL POC Glucose (mg/dL) 154 H 181 H 204 H (75-99) mg/dL ALT (4-49) U/L Total Protein (6.3-8.2) g/dL 04/26/19 04/26/19 04/26/19 Range/Units 06:25 06:25 06:25 RBC 3.57 L (4.30-5.90) m/uL Hgb 10.8 L (13.0-17.5) gm/dL Hct 34.3 L (39.0-53.0) % Plt Count 126 L (150-450) k/uL Lymphocytes # 0.6 L (1.0-4.8) k/uL PT 23.7 H (9.0-12.0) sec INR 2.4 H (<1.2) Chloride 109 H (98-107) mmol/L Carbon Dioxide 20 L (22-30) mmol/L BUN 91 H (9-20) mg/dL Creatinine 2.34 H (0.66-1.25) mg/dL Glucose 66 L (74-99) mg/dL POC Glucose (mg/dL) (75-99) mg/dL ALT 56 H (4-49) U/L Total Protein 6.2 L (6.3-8.2) g/dL Microbiology - Last 24 Hours (Table) 04/23/19 11:30 Gram Stain - Final Sputum Sputum Culture - Final Crista albicans Assessment and Plan Assessment: #1. Shortness of breath, multifactorial, related to mild exacerbation of CHF/fluid overload, and component of COPD exacerbation #2. Coronary artery disease with previous coronary artery stenting #3. Chronic atrial fibrillation, patient has a permanent pacemaker and his rhythm is paced #4. Sick sinus syndrome, post pacemaker insertion #5. Obstructive sleep apnea maintained on CPAP therapy #6. Secondary pulmonary hypertension, with right-sided pressure at 65 mmHg #7. Chronic kidney disease stage III, elevated PSA, followed by urology #8. Acute kidney injury related to aggressive diuresis, currently off Lasix #9. History of bilateral pleural effusions, not seen on most recent chest x-ray #10. Hyperlipidemia Plan: The patient was seen and evaluated by Dr. Mcdonnell Continue current treatment plan Given additional diuretics today Increase his activity as tolerated We'll continue to follow I, the cosigning physician, performed a history & physical examination of the patient. Lungs sounds are clear, diminished in the right base. Maintaining good O2 saturations in the 90s on 2 L/m per nasal cannula. I discussed the assessment and plan of care with my nurse practitioner, Mable Castanon. I attest to the above note as dictated by her.
[2019-04-26 11:44] LABS: Glucose,Whole Blood 146 mg/dL (75-99)
--- NOTE | 2019-04-26 14:30 | PN ---
PROGRESS NOTE Patient is seen for followup for acute kidney injury. Patient was maintained on IV fluids which were discontinued. He got a small dose of IV Lasix yesterday at 20 mg, however, patient states his breathing is about the same. His creatinine is stable at 2.3, which is improved from 2.8. Previous creatinine was 1.2 and 1.8 mg/dL in August and December of 2018. Chest x-ray showed some evidence of pulmonary vascular congestion yesterday. PHYSICAL EXAMINATION: On examination today, blood pressure was 141/61, heart rate is 72 per minute, patient is afebrile. Examination of the heart S1, S2. Examination of the lungs, decreased breath sounds at bases. Abdomen is soft, nontender. Examination of lower extremities shows trace edema bilaterally. [employer] exam grossly intact. LAB: Show sodium 141, potassium 4.3, BUN 91, creatinine 2.3, hemoglobin 10.8 g/dL. ASSESSMENT: 1. Acute kidney injury, initially prerenal, currently patient is volume overloaded. I will give another dose of IV Lasix today. Renal function is fairly stable, creatinine staying at 2.3. There may be a cardiorenal component as well. 2. Chronic kidney disease, NKF stage 3, baseline creatinine 1.7-1.9. 3. Mild non gap and gap metabolic acidosis. Maintained on sodium bicarb. 4. Chronic atrial fibrillation. 5. History of coronary artery disease status post coronary artery bypass surgery. PLAN: Repeat IV Lasix today at 40 mg. Repeat labs in a.m. MMODL / IJN: [id number] /
[2019-04-26 16:51] LABS: Glucose,Whole Blood 150 mg/dL (75-99)
[2019-04-26] MEDS ORDERED: WARFARIN 1 MG TAB PO ONE (18:00)
--- NOTE | 2019-04-26 19:57 | P.PN ---
Subjective Progress Note Date: 04/26/19 this is a 79-year-old male, a patient of Dr. Brink. He has a known past medical history of chronic atrial fibrillation antic PFO status post percutaneous closure, pacemaker placement for sick sinus syndrome, obstructive sleep apnea uses CPAPmachine, hypertension, myocardial infarction, severe pulmonary hypertension and a prior history of smoking. Patient presents to the emergency room with increasing shortness of breath over the last 2 weeks. Patient does report that his PCP had decreased his Lasix from 40 mg twice a day to once a day about a month ago. He does notice at evening time he does have some swelling in the legs. And occasionally he'll take Lasix 20 mg before bedtime. He denies any cough, fever, chills or sweats, or chest pain. patient seen in the ER. His oxygen saturation did decrease down to 88% he's currently on 2 L at 93%. He did receive a dose of IV Lasix, IV steroids and nebulizer treatments in ER for COPD exacerbation and CHF exacerbation. Both cardiology and pulmonary service has been consult. D-dimer is normal at 0.25. Creatinine elevated at 1.8 nd in December creatinine was 1.8. Patient also had reported some swelling around his nose this morning which now resolved. He denies any tongue or lip swelling. 04/21/2019 patient still reporting some shortness of breath. Still on 3 L of oxygen. He has been seen by both cardiology and pulmonary service. Patient denies any chest pain, nausea or vomiting bowel movement changes or urinary symptoms. Creatinine is up to 2.17. Patient is having hyperglycemia secondary to steroids insulin sliding scale has been added. On 04/22/2019 patient is still complaining of shortness of breath with any activity otherwise he denies any complaints there is no fever or chills no headache or dizziness no chest pain no cough no nausea or vomiting no abdominal pain no diarrhea no burning with urination no frequency or urgency and no hematuria On 04/23/2019 patient was seen and examined on the medical floor he is alert and oriented 3 in no apparent distress he is still complaining of shortness of breath with activity otherwise no complaints there is no fever or chills no headache or dizziness no chest pain no cough no nausea or vomiting no abdominal pain no diarrhea no burning was urination no frequency or urgency and no hematuria. Kidney function is still worsening was elevated BUN and creatinine today. Nephrology consultation requested patient was seen by Dr. Dr. Cheung, he is off diuretic at this time On 04/24/2019 patient alert and oriented 3. Patient still having some shortness of breath with activity but denies any chest pain. Creatinine today 2.64 and bun 106. Nephrology services are following. Patient is also still maintained on IV Solu-Medrol. Lasix DC'd. Patient is having bowel movements. Patient denies chest pain. Patient denies nausea vomiting or diarrhea. Patient denies any urinary burning or frequency On 04/25/2019 patient's alert and oriented 3. Patient having some increased shortness of breath today. Chest x-ray chest ultrasound completed per pulmonary. Kidney enzymes slightly improved. Nephrology services are following. Per pulmonary pleural effusion seen on ultrasound to small to drain. Nephrology and pulmonary services are following. Patient denies chest pain. Patient denies any nausea vomiting or diarrhea. Patient denies any urinary burning or frequency On 04/26/2019 patient was seen and examined on the medical floor, he is alert and oriented 3 in no apparent distress, he is complaining of shortness of breath with any activity, he is complaining of constipation, otherwise he denies any complaints there is no fever or chills no headache or dizziness no chest pain no nausea or vomiting no abdominal pain no diarrhea no burning with uri nation no frequency or urgency and no hematuria Objective - Vital Signs Vital signs: Vital Signs Temp 97.6 F 04/26/19 19:07 Pulse 78 04/26/19 19:07 Resp 18 04/26/19 19:07 BP 151/74 04/26/19 19:07 Pulse Ox 92 L 04/26/19 19:07 Intake & Output 04/26/19 04/26/19 04/27/19 06:59 18:59 06:59 Intake Total 830 Balance 830 Intake: Oral 830 Other: Voiding Method Toilet Toilet Toilet # Voids 2 2 - Exam In general patient is alert and oriented 3 in no apparent distress HEENT head normocephalic and atraumatic Neck is supple no JVD no goiter no lymphadenopathy Chest exam reveals a few scattered crackles bilaterally no wheezing Cardiac exam reveals regular heart sounds S1 and S2 no gallops no murmurs Abdomen is soft nontender no organomegaly with normal bowel sounds Extremity exam reveals no edema no cyanosis or clubbing Neurological examination reveals no gross focal deficit - Labs CBC & Chem 7: 04/26/19 06:25 04/26/19 06:25 Labs: Abnormal Lab Results - Last 24 Hours (Table) 04/25/19 04/26/19 04/26/19 Range/Units 20:57 06:25 06:25 RBC 3.57 L (4.30-5.90) m/uL Hgb 10.8 L (13.0-17.5) gm/dL Hct 34.3 L (39.0-53.0) % Plt Count 126 L (150-450) k/uL Lymphocytes # 0.6 L (1.0-4.8) k/uL PT 23.7 H (9.0-12.0) sec INR 2.4 H (<1.2) Chloride (98-107) mmol/L Carbon Dioxide (22-30) mmol/L BUN (9-20) mg/dL Creatinine (0.66-1.25) mg/dL Glucose (74-99) mg/dL POC Glucose (mg/dL) 204 H (75-99) mg/dL ALT (4-49) U/L Total Protein (6.3-8.2) g/dL 04/26/19 04/26/19 04/26/19 Range/Units 06:25 11:43 16:49 RBC (4.30-5.90) m/uL Hgb (13.0-17.5) gm/dL Hct (39.0-53.0) % Plt Count (150-450) k/uL Lymphocytes # (1.0-4.8) k/uL PT (9.0-12.0) sec INR (<1.2) Chloride 109 H (98-107) mmol/L Carbon Dioxide 20 L (22-30) mmol/L BUN 91 H (9-20) mg/dL Creatinine 2.34 H (0.66-1.25) mg/dL Glucose 66 L (74-99) mg/dL POC Glucose (mg/dL) 146 H 150 H (75-99) mg/dL ALT 56 H (4-49) U/L Total Protein 6.2 L (6.3-8.2) g/dL Assessment and Plan Plan: 1. Shortness of breath and hypoxemia likely multifactorial. Per cardiology symptoms are likely related to his valvular heart disease and uncontrolled hypertension. cardiology has increased the Lopressor from 25 mg once a day to twice a day. symptoms also could be related to CHF exacerbation and possible COPD. Patient has been seen by both cardiology and pulmonary services. Cardiology has cleared patient for discharge. Chest x-ray completed showing cardiomegaly with small to moderate size right greater than left pleural effusion increased in size from most recent. Associated bibasilar atelectasis and/or infiltrate also prominent recent x-ray correlate for worsening CHF. Chest ultrasound completed per pulmonary. Per pulmonary pleural effusion too small to drain at this time will consider adding small dose of diuretic. 2. Acute hypoxic respiratory failure:secondary to CHF exacerbation and COPD exacerbation. Patient is usually not on oxygen at home. 3. Acute on chronic diastolic CHF exacerbation: Chest x-ray showing new trace pleural effusion and bibasilar airspace disease, possibly atelectasis. Correlate for CHF. BNP 1040. Patient did receive a dose of IV Lasix in the emergency room. Lasix dose had been decreased by PCP over the last month from 40 mg twice a day to once a day. Echo completed showing an EF of 55-60%. Left atrium severely dilated, severe tricuspid regurgitation, mild aortic regurgitation, mild mitral regurgitation and moderate pulmonary hypertension. Patient seen by cardiology services 4. Acute COPD exacerbation: continue IV Solu-Medrol. Continue DuoNeb updrafts. Pulmonary following. Patient has been transitioned to oral prednisone per pulmonary 5. History of chronic atrial fibrillation anticoagulated with Coumadin. INR Is 3.5. Pharmacy dosing Coumadin. No Coumadin scheduled for tonight. INR today 2.6. She maintained on pharmacy dosing Coumadin 6. History of atrial septal defect status post closure in 2012 7. History of coronary artery disease status post cardiac stents 8. History of myocardial infarction 9. History of obstructive sleep apnea uses CPAP nightly. 10. Chronic kidney disease stage III. Creatinine since December is been around 1.8. concerns for possible obstructive uropathy due to patient's history of elevated PSA. He does follow with Dr. Morataya. kidney ultrasound did not reveal any evidence of obstructive uropathy. Nephrology services are following. Lasix on hold continue normal saline at 75 11. History of moderate to severe pulmonary hypertension 12. essential hypertension: Continue current blood pressure medications Cozaar and Norvasc 13. Hyperlipidemia continue statin 14. acute kidney injury due to diuretics. We'll decrease Lasix from 40 mg by mouth twice a day to once a day.epeat labs in a.m. nephrology services are following. Lasix has been DC'd. Patient maintained on normal saline at 75. Current creatinine 2.64 and bun 106. 15. Patient now complaining of cough with some sputum production. We'll start Rocephin 1 g daily. Check sputum culture DVT prophylaxis Coumadin. GI prophylaxis Pepcid. Cardiology has cleared patient for discharge Nephrology is following for acute kidney injury Pulmonary service is following for COPD exacerbation
[2019-04-26 20:03] LABS: Glucose,Whole Blood 220 mg/dL (75-99)
[2019-04-26] MEDS: ATORVASTATIN 40 MG TAB PO SCH (20:05)
[2019-04-26] MEDS: amLODIPine 10 MG TAB PO SCH (20:05)
[2019-04-26] MEDS: ASPIRIN 81 MG PO SCH (20:06)
[2019-04-26] MEDS: POLYETHYLENE GLYCOL 3350 17 GM POWD.PACK PO SCH (20:36)
[2019-04-27 06:51] LABS: Glucose,Whole Blood 126 mg/dL (75-99)
[2019-04-27] MEDS: INSULIN ASPART (NovoLOG) 100 UNIT/ML VIAL SQ SCH ×4 (06:52→20:51)
[2019-04-27] MEDS: IPRATROPIUM-ALBUTEROL 3 ML NEB INHALATION SCH ×4 (07:09→20:15)
[2019-04-27] MEDS: FAMOTIDINE 20 MG TAB PO SCH (07:15)
[2019-04-27] MEDS: ALLOPURINOL 300 MG TAB PO SCH (07:15)
[2019-04-27] MEDS: predniSONE 10 MG TAB PO SCH (07:15)
[2019-04-27] MEDS: ASCORBIC ACID 500 MG TAB PO SCH (07:15)
[2019-04-27] MEDS: LORATADINE 10 MG TAB PO SCH (07:16)
[2019-04-27] MEDS: METOPROLOL TARTRATE 25 MG TAB PO SCH ×2 (07:16→19:51)
[2019-04-27] MEDS: MULTIVITAMINS, THERA 1 EACH TAB PO SCH (07:16)
[2019-04-27 08:09] LABS: Basophils % (A) 0 %; Eosinophils % (A) 0 %; HCT 33.1 % (39.0-53.0); HGB 10.9 gm/dL (13.0-17.5); Lymphocytes # (A) 0.6 k/uL (1.0-4.8); Lymphocytes % (A) 6 %; MCH 31.1 pg (25.0-35.0); MCHC 32.8 g/dL (31.0-37.0); MCV 94.8 fL (80.0-100.0); Mean Platelet Volume 9.3; Monocytes # (A) 0.8 k/uL (0-1.0); Monocytes % (A) 9 %; Neutrophils # (A) 7.7 k/uL (1.3-7.7); Neutrophils % (A) 83 %; Platelet Count 130 k/uL (150-450); RBC 3.49 m/uL (4.30-5.90); RDW 15.5 % (11.5-15.5); WBC 9.3 k/uL (3.8-10.6)
[2019-04-27 08:13] LABS: INR 2.3 (<1.2); Prothrombin Time 22.6 sec (9.0-12.0)
[2019-04-27 08:17] LABS: Albumin 3.7 g/dL (3.5-5.0); Calcium 8.9 mg/dL (8.4-10.2); Potassium 4.4 mmol/L (3.5-5.1); Total Bilirubin 0.8 mg/dL (0.2-1.3); Total Protein 6.3 g/dL (6.3-8.2)
--- NOTE | 2019-04-27 11:12 | P.PN ---
Subjective Progress Note Date: 04/27/19 this is a 79-year-old male, a patient of Dr. Brink. He has a known past medical history of chronic atrial fibrillation antic PFO status post percutaneous closure, pacemaker placement for sick sinus syndrome, obstructive sleep apnea uses CPAPmachine, hypertension, myocardial infarction, severe pulmonary hypertension and a prior history of smoking. Patient presents to the emergency room with increasing shortness of breath over the last 2 weeks. Patient does report that his PCP had decreased his Lasix from 40 mg twice a day to once a day about a month ago. He does notice at evening time he does have some swelling in the legs. And occasionally he'll take Lasix 20 mg before bedtime. He denies any cough, fever, chills or sweats, or chest pain. patient seen in the ER. His oxygen saturation did decrease down to 88% he's currently on 2 L at 93%. He did receive a dose of IV Lasix, IV steroids and nebulizer treatments in ER for COPD exacerbation and CHF exacerbation. Both cardiology and pulmonary service has been consult. D-dimer is normal at 0.25. Creatinine elevated at 1.8 nd in December creatinine was 1.8. Patient also had reported some swelling around his nose this morning which now resolved. He denies any tongue or lip swelling. 04/21/2019 patient still reporting some shortness of breath. Still on 3 L of oxygen. He has been seen by both cardiology and pulmonary service. Patient denies any chest pain, nausea or vomiting bowel movement changes or urinary symptoms. Creatinine is up to 2.17. Patient is having hyperglycemia secondary to steroids insulin sliding scale has been added. On 04/22/2019 patient is still complaining of shortness of breath with any activity otherwise he denies any complaints there is no fever or chills no headache or dizziness no chest pain no cough no nausea or vomiting no abdominal pain no diarrhea no burning with urination no frequency or urgency and no hematuria On 04/23/2019 patient was seen and examined on the medical floor he is alert and oriented 3 in no apparent distress he is still complaining of shortness of breath with activity otherwise no complaints there is no fever or chills no headache or dizziness no chest pain no cough no nausea or vomiting no abdominal pain no diarrhea no burning was urination no frequency or urgency and no hematuria. Kidney function is still worsening was elevated BUN and creatinine today. Nephrology consultation requested patient was seen by Dr. Dr. Cheung, he is off diuretic at this time On 04/24/2019 patient alert and oriented 3. Patient still having some shortness of breath with activity but denies any chest pain. Creatinine today 2.64 and bun 106. Nephrology services are following. Patient is also still maintained on IV Solu-Medrol. Lasix DC'd. Patient is having bowel movements. Patient denies chest pain. Patient denies nausea vomiting or diarrhea. Patient denies any urinary burning or frequency On 04/25/2019 patient's alert and oriented 3. Patient having some increased shortness of breath today. Chest x-ray chest ultrasound completed per pulmonary. Kidney enzymes slightly improved. Nephrology services are following. Per pulmonary pleural effusion seen on ultrasound to small to drain. Nephrology and pulmonary services are following. Patient denies chest pain. Patient denies any nausea vomiting or diarrhea. Patient denies any urinary burning or frequency On 04/26/2019 patient was seen and examined on the medical floor, he is alert and oriented 3 in no apparent distress, he is complaining of shortness of breath with any activity, he is complaining of constipation, otherwise he denies any complaints there is no fever or chills no headache or dizziness no chest pain no nausea or vomiting no abdominal pain no diarrhea no burning with ur ination no frequency or urgency and no hematuria 04/27/2019 patient is alert and oriented 3. Patient received one dose of lasix 40 mg on 04/26/2019. creat improving to 2.02. nephro and pulmonary following. patient having some shortness of breath with exertion. denies chest pain. denies nausea vomitin or diarrhea. Objective - Vital Signs Vital signs: Vital Signs Temp 97.6 F 04/27/19 07:00 Pulse 64 04/27/19 07:23 Resp 16 04/27/19 07:00 BP 151/76 04/27/19 07:00 Pulse Ox 92 L 04/27/19 07:00 Intake & Output 04/26/19 04/27/19 04/27/19 18:59 06:59 18:59 Other: Voiding Method Toilet Toilet # Voids 2 2 - Exam In general patient is alert and oriented 3 in no apparent distress HEENT head normocephalic and atraumatic Neck is supple no JVD no goiter no lymphadenopathy Chest exam reveals a few scattered crackles bilaterally no wheezing Cardiac exam reveals regular heart sounds S1 and S2 no gallops no murmurs Abdomen is soft nontender no organomegaly with normal bowel sounds Extremity exam reveals no edema no cyanosis or clubbing Neurological examination reveals no gross focal deficit - Labs CBC & Chem 7: 04/27/19 07:41 04/27/19 07:41 Labs: Abnormal Lab Results - Last 24 Hours (Table) 04/26/19 04/26/19 04/26/19 Range/Units 11:43 16:49 20:02 RBC (4.30-5.90) m/uL Hgb (13.0-17.5) gm/dL Hct (39.0-53.0) % Plt Count (150-450) k/uL Lymphocytes # (1.0-4.8) k/uL PT (9.0-12.0) sec INR (<1.2) BUN (9-20) mg/dL Creatinine (0.66-1.25) mg/dL Glucose (74-99) mg/dL POC Glucose (mg/dL) 146 H 150 H 220 H (75-99) mg/dL AST (17-59) U/L ALT (4-49) U/L 04/27/19 04/27/19 04/27/19 Range/Units 06:49 07:41 07:41 RBC 3.49 L (4.30-5.90) m/uL Hgb 10.9 L (13.0-17.5) gm/dL Hct 33.1 L (39.0-53.0) % Plt Count 130 L (150-450) k/uL Lymphocytes # 0.6 L (1.0-4.8) k/uL PT (9.0-12.0) sec INR (<1.2) BUN 78 H (9-20) mg/dL Creatinine 2.02 H (0.66-1.25) mg/dL Glucose 102 H (74-99) mg/dL POC Glucose (mg/dL) 126 H (75-99) mg/dL AST 66 H (17-59) U/L ALT 77 H (4-49) U/L 04/27/19 Range/Units 07:41 RBC (4.30-5.90) m/uL Hgb (13.0-17.5) gm/dL Hct (39.0-53.0) % Plt Count (150-450) k/uL Lymphocytes # (1.0-4.8) k/uL PT 22.6 H (9.0-12.0) sec INR 2.3 H (<1.2) BUN (9-20) mg/dL Creatinine (0.66-1.25) mg/dL Glucose (74-99) mg/dL POC Glucose (mg/dL) (75-99) mg/dL AST (17-59) U/L ALT (4-49) U/L Assessment and Plan Assessment: 1. Shortness of breath and hypoxemia likely multifactorial. Per cardiology symptoms are likely related to his valvular heart disease and uncontrolled hypertension. cardiology has increased the Lopressor from 25 mg once a day to twice a day. symptoms also could be related to CHF exacerbation and possible COPD. Patient has been seen by both cardiology and pulmonary services. Cardiology has cleared patient for discharge. Chest x-ray completed showing c ardiomegaly with small to moderate size right greater than left pleural effusion increased in size from most recent. Associated bibasilar atelectasis and/or infiltrate also prominent recent x-ray correlate for worsening CHF. Chest ultrasound completed per pulmonary. Per pulmonary pleural effusion too small to drain at this time will consider adding small dose of diuretic. Patient received lasix 40mg on 04/27/2019 2. Acute hypoxic respiratory failure:secondary to CHF exacerbation and COPD ex acerbation. Patient is usually not on oxygen at home. 3. Acute on chronic diastolic CHF exacerbation: Chest x-ray showing new trace pleural effusion and bibasilar airspace disease, possibly atelectasis. Correlate for CHF. BNP 1040. Patient did receive a dose of IV Lasix in the emergency room. Lasix dose had been decreased by PCP over the last month from 40 mg twice a day to once a day. Echo completed showing an EF of 55-60%. Left atrium severely dilated, severe tricuspid regurgitation, mild aortic regurgitation, mild mitral regurgitation and moderate pulmonary hypertension. Patient seen by cardiology services 4. Acute COPD exacerbation: continue IV Solu-Medrol. Continue DuoNeb updrafts. Pulmonary following. Patient has been transitioned to oral prednisone per pulmonary 5. History of chronic atrial fibrillation anticoagulated with Coumadin. INR Is 3.5. Pharmacy dosing Coumadin. No Coumadin scheduled for tonight. INR today 2.6. She maintained on pharmacy dosing Coumadin 6. History of atrial septal defect status post closure in 2012 7. History of coronary artery disease status post cardiac stents 8. History of myocardial infarction 9. History of obstructive sleep apnea uses CPAP nightly. 10. Chronic kidney disease stage III. Creatinine since December is been around 1.8. concerns for possible obstructive uropathy due to patient's history of elevated PSA. He does follow with Dr. Morataya. kidney ultrasound did not reveal any evidence of obstructive uropathy. Nephrology services are following. Lasix on hold continue normal saline at 75 11. History of moderate to severe pulmonary hypertension 12. essential hypertension: Continue current blood pressure medications Cozaar and Norvasc 13. Hyperlipidemia continue statin 14. acute kidney injury due to diuretics. We'll decrease Lasix from 40 mg by mouth twice a day to once a day.epeat labs in a.m. nephrology services are following. Lasix has been DC'd. Patient maintained on normal saline at 75. Current creatinine 2.64 and bun 106. 15. Patient now complaining of cough with some sputum production. We'll start Rocephin 1 g daily. Check sputum culture DVT prophylaxis Coumadin. GI prophylaxis Pepcid. Cardiology has cleared patient for discharge Nephrology is following for acute kidney injury Pulmonary service is following for COPD exacerbation I performed an examination of the patient and discussed their management with the Nurse Practitioner. I have reviewed the Nurse Practitioner's notes and agree with the documented findings and plan of care
[2019-04-27 11:15] LABS: Glucose,Whole Blood 180 mg/dL (75-99)
[2019-04-27] MEDS ORDERED: LACTULOSE 20 GM/30 ML CUP PO ONE (14:17)
[2019-04-27 16:38] LABS: Glucose,Whole Blood 258 mg/dL (75-99)
--- NOTE | 2019-04-27 17:59 | PN ---
PROGRESS NOTE Patient was seen this morning for followup for acute kidney injury. Renal function has actually been improving. Patient has received diuretics for the last 2 days. He states his breathing may be slightly improved, although he continues to have dyspnea on exertion. PHYSICAL EXAMINATION: On examination this morning, blood pressure was 151/76, heart rate of 66 per minute. He is afebrile. EXAMINATION OF THE HEART: S1 and S2. EXAMINATION OF LUNGS: Bilateral breath sounds are heard. ABDOMEN: Soft, non-tender. Examination of lower extremities shows no significant edema. CYBER SYSTEMS OPERATIONS SPECIALIST exam is grossly intact. LABS: Sodium 140, potassium 4.4, chloride 107, BUN 78, creatinine 2.02, hemoglobin 10.9 g/dL. ASSESSMENT: 1. Acute kidney injury, nonoliguric, currently improved. It appears to be mostly cardiorenal. 2. Mild volume overload, status post Lasix last couple of days. We will start patient on his home dose of diuretics, which is 40 b.i.d. I will maintain him on once-a-day dosing. 3. Volume depletion on initial admission, currently resolved. Patient has been hypervolemic last few days. 4. Chronic atrial fibrillation. 5. Chronic kidney disease, stage III; baseline creatinine 1.7 to 1.9. 6. History of coronary artery disease, status post coronary artery bypass surgery. PLAN: Continue off of IV fluids. Resume oral Lasix at 40 mg daily. Repeat labs in a.m. Patient will need followup as outpatient. MMODL / IJN: [id number] /
[2019-04-27] MEDS ORDERED: WARFARIN 1.5 MG TAB PO ONE (18:00)
[2019-04-27] MEDS: POLYETHYLENE GLYCOL 3350 17 GM POWD.PACK PO SCH (19:51)
[2019-04-27] MEDS: ATORVASTATIN 40 MG TAB PO SCH (19:51)
[2019-04-27] MEDS: amLODIPine 10 MG TAB PO SCH (19:52)
[2019-04-27] MEDS: ASPIRIN 81 MG PO SCH (19:52)
[2019-04-27 20:27] LABS: Glucose,Whole Blood 189 mg/dL (75-99)
[2019-04-28 07:23] LABS: Glucose,Whole Blood 85 mg/dL (75-99)
[2019-04-28] MEDS: INSULIN ASPART (NovoLOG) 100 UNIT/ML VIAL SQ SCH ×4 (07:36→19:54)
[2019-04-28] MEDS ORDERED: METOCLOPRAMIDE 5 MG/ML 2 ML VIAL IVP PRN (07:40)
[2019-04-28] MEDS ORDERED: ONDANSETRON 4 MG/2 ML VIAL IVP PRN (07:40)
[2019-04-28] MEDS: FAMOTIDINE 20 MG TAB PO SCH (07:51)
[2019-04-28] MEDS: METOPROLOL TARTRATE 25 MG TAB PO SCH ×2 (07:51→19:54)
[2019-04-28] MEDS: FUROSEMIDE 40 MG TAB PO SCH (07:52)
[2019-04-28] MEDS: ALLOPURINOL 300 MG TAB PO SCH (07:52)
[2019-04-28] MEDS: LORATADINE 10 MG TAB PO SCH (07:52)
[2019-04-28] MEDS: ASCORBIC ACID 500 MG TAB PO SCH (07:52)
[2019-04-28] MEDS: MULTIVITAMINS, THERA 1 EACH TAB PO SCH (07:52)
[2019-04-28] MEDS: predniSONE 10 MG TAB PO SCH (07:52)
[2019-04-28 08:11] LABS: Basophils % (A) 0 %; Eosinophils # (A) 0.2 k/uL (0-0.7); Eosinophils % (A) 2 %; HCT 33.4 % (39.0-53.0); HGB 10.5 gm/dL (13.0-17.5); Lymphocytes # (A) 0.7 k/uL (1.0-4.8); Lymphocytes % (A) 7 %; MCH 30.1 pg (25.0-35.0); MCHC 31.5 g/dL (31.0-37.0); MCV 95.5 fL (80.0-100.0); Mean Platelet Volume 9.5; Monocytes # (A) 0.9 k/uL (0-1.0); Monocytes % (A) 9 %; Neutrophils # (A) 8.4 k/uL (1.3-7.7); Neutrophils % (A) 81 %; Platelet Count 123 k/uL (150-450); RDW 15.6 % (11.5-15.5); WBC 10.3 k/uL (3.8-10.6)
[2019-04-28 08:17] LABS: Albumin 3.5 g/dL (3.5-5.0); Calcium 8.8 mg/dL (8.4-10.2); Potassium 4.4 mmol/L (3.5-5.1); Total Bilirubin 0.8 mg/dL (0.2-1.3); Total Protein 5.9 g/dL (6.3-8.2)
[2019-04-28 08:30] LABS: INR 2.5 (<1.2); Prothrombin Time 24.4 sec (9.0-12.0)
[2019-04-28] MEDS: IPRATROPIUM-ALBUTEROL 3 ML NEB INHALATION SCH ×4 (09:17→20:52)
[2019-04-28] MEDS ORDERED: NA PHOS,M-B/NA PHOS,DI-BA 133 ML ENEMA RECTAL ONE (09:29)
[2019-04-28] MEDS ORDERED: FUROSEMIDE 10 MG/ML 4 ML VIAL IV STA (09:30)
--- NOTE | 2019-04-28 11:12 | P.PN ---
Subjective Progress Note Date: 04/28/19 this is a 79-year-old male, a patient of Dr. Brink. He has a known past medical history of chronic atrial fibrillation antic PFO status post percutaneous closure, pacemaker placement for sick sinus syndrome, obstructive sleep apnea uses CPAPmachine, hypertension, myocardial infarction, severe pulmonary hypertension and a prior history of smoking. Patient presents to the emergency room with increasing shortness of breath over the last 2 weeks. Patient does report that his PCP had decreased his Lasix from 40 mg twice a day to once a day about a month ago. He does notice at evening time he does have some swelling in the legs. And occasionally he'll take Lasix 20 mg before bedtime. He denies any cough, fever, chills or sweats, or chest pain. patient seen in the ER. His oxygen saturation did decrease down to 88% he's currently on 2 L at 93%. He did receive a dose of IV Lasix, IV steroids and nebulizer treatments in ER for COPD exacerbation and CHF exacerbation. Both cardiology and pulmonary service has been consult. D-dimer is normal at 0.25. Creatinine elevated at 1.8 nd in December creatinine was 1.8. Patient also had reported some swelling around his nose this morning which now resolved. He denies any tongue or lip swelling. 04/21/2019 patient still reporting some shortness of breath. Still on 3 L of oxygen. He has been seen by both cardiology and pulmonary service. Patient denies any chest pain, nausea or vomiting bowel movement changes or urinary symptoms. Creatinine is up to 2.17. Patient is having hyperglycemia secondary to steroids insulin sliding scale has been added. On 04/22/2019 patient is still complaining of shortness of breath with any activity otherwise he denies any complaints there is no fever or chills no headache or dizziness no chest pain no cough no nausea or vomiting no abdominal pain no diarrhea no burning with urination no frequency or urgency and no hematuria On 04/23/2019 patient was seen and examined on the medical floor he is alert and oriented 3 in no apparent distress he is still complaining of shortness of breath with activity otherwise no complaints there is no fever or chills no headache or dizziness no chest pain no cough no nausea or vomiting no abdominal pain no diarrhea no burning was urination no frequency or urgency and no hematuria. Kidney function is still worsening was elevated BUN and creatinine today. Nephrology consultation requested patient was seen by Dr. Dr. Cheung, he is off diuretic at this time On 04/24/2019 patient alert and oriented 3. Patient still having some shortness of breath with activity but denies any chest pain. Creatinine today 2.64 and bun 106. Nephrology services are following. Patient is also still maintained on IV Solu-Medrol. Lasix DC'd. Patient is having bowel movements. Patient denies chest pain. Patient denies nausea vomiting or diarrhea. Patient denies any urinary burning or frequency On 04/25/2019 patient's alert and oriented 3. Patient having some increased shortness of breath today. Chest x-ray chest ultrasound completed per pulmonary. Kidney enzymes slightly improved. Nephrology services are following. Per pulmonary pleural effusion seen on ultrasound to small to drain. Nephrology and pulmonary services are following. Patient denies chest pain. Patient denies any nausea vomiting or diarrhea. Patient denies any urinary burning or frequency On 04/26/2019 patient was seen and examined on the medical floor, he is alert and oriented 3 in no apparent distress, he is complaining of shortness of breath with any activity, he is complaining of constipation, otherwise he denies any complaints there is no fever or chills no headache or dizziness no chest pain no nausea or vomiting no abdominal pain no diarrhea no burning with ur ination no frequency or urgency and no hematuria 04/27/2019 patient is alert and oriented 3. Patient received one dose of lasix 40 mg on 04/26/2019. creat improving to 2.02. nephro and pulmonary following. patient having some shortness of breath with exertion. denies chest pain. denies nausea vomitin or diarrhea. On 04/28/2019 patient's alert and oriented 3. Creatinine improving to 1.88 and bun 63. Pulmonary services have signed off. Per nephrology will give extra dose of Lasix due to patient reporting he is having shortness breath with activity. Patient remains on oral prednisone and Rocephin. Daily 40 mg Lasix has been resumed per nephrology will continue to monitor kidney function with initiation of diuretics. Patient also complaining is not had a bowel movement in 3 days. Enema will be ordered. Patient denies chest pain. Patient reports he still having shortness breath with activity. Patient denies any urinary burning or frequency. Patient denies any nausea or vomiting Objective - Vital Signs Vital signs: Vital Signs Temp 97.3 F L 04/28/19 07:00 Pulse 74 04/28/19 09:30 Resp 17 04/28/19 07:00 BP 154/60 04/28/19 07:00 Pulse Ox 92 L 04/28/19 07:00 Intake & Output 04/27/19 04/28/19 04/28/19 18:59 06:59 18:59 Intake Total 580 Balance 580 Intake: Oral 580 Other: Voiding Method Indwelling Catheter # Voids 3 3 - Exam In general patient is alert and oriented 3 in no apparent distress HEENT head normocephalic and atraumatic Neck is supple no JVD no goiter no lymphadenopathy Chest exam reveals a few scattered crackles bilaterally no wheezing Cardiac exam reveals regular heart sounds S1 and S2 no gallops no murmurs Abdomen is soft nontender no organomegaly with normal bowel sounds Extremity exam reveals no edema no cyanosis or clubbing Neurological examination reveals no gross focal deficit - Labs CBC & Chem 7: 04/28/19 07:06 04/28/19 07:06 Labs: Abnormal Lab Results - Last 24 Hours (Table) 04/27/19 04/27/19 04/27/19 Range/Units 11:12 16:37 20:25 RBC (4.30-5.90) m/uL Hgb (13.0-17.5) gm/dL Hct (39.0-53.0) % RDW (11.5-15.5) % Plt Count (150-450) k/uL Neutrophils # (1.3-7.7) k/uL Lymphocytes # (1.0-4.8) k/uL PT (9.0-12.0) sec INR (<1.2) BUN (9-20) mg/dL Creatinine (0.66-1.25) mg/dL Glucose (74-99) mg/dL POC Glucose (mg/dL) 180 H 258 H 189 H (75-99) mg/dL AST (17-59) U/L ALT (4-49) U/L Total Protein (6.3-8.2) g/dL 04/28/19 04/28/19 04/28/19 Range/Units 07:06 07:06 07:06 RBC 3.50 L (4.30-5.90) m/uL Hgb 10.5 L (13.0-17.5) gm/dL Hct 33.4 L (39.0-53.0) % RDW 15.6 H (11.5-15.5) % Plt Count 123 L (150-450) k/uL Neutrophils # 8.4 H (1.3-7.7) k/uL Lymphocytes # 0.7 L (1.0-4.8) k/uL PT 24.4 H (9.0-12.0) sec INR 2.5 H (<1.2) BUN 63 H (9-20) mg/dL Creatinine 1.88 H (0.66-1.25) mg/dL Glucose 72 L (74-99) mg/dL POC Glucose (mg/dL) (75-99) mg/dL AST 72 H (17-59) U/L ALT 92 H (4-49) U/L Total Protein 5.9 L (6.3-8.2) g/dL Assessment and Plan Assessment: 1. Shortness of breath and hypoxemia likely multifactorial. Per cardiology symptoms are likely related to his valvular heart disease and uncontrolled hypertension. cardiology has increased the Lopressor from 25 mg once a day to twice a day. symptoms also could be related to CHF exacerbation and possible COPD. Patient has been seen by both cardiology and pulmonary services. Cardiology has cleared patient for discharge. Chest x-ray completed showing cardiomegaly with small to moderate size right greater than left pleural effusion increased in size from most recent. Associated bibasilar atelectasis and/or infiltrate also prominent recent x-ray correlate for worsening CHF. Chest ultrasound completed per pulmonary. Per pulmonary pleural effusion too small to drain at this time will consider adding small dose of diuretic. Patient received lasix 40mg on 04/27/2019. On a services have signed off 2. Acute hypoxic respiratory failure:secondary to CHF exacerbation and COPD exacerbation. Patient is usually not on oxygen at home. 3. Acute on chronic diastolic CHF exacerbation: Chest x-ray showing new trace pleural effusion and bibasilar airspace disease, possibly atelectasis. Correlate for CHF. BNP 1040. Patient did receive a dose of IV Lasix in the emergency room. Lasix dose had been decreased by PCP over the last month from 40 mg twice a day to once a day. Echo completed showing an EF of 55-60%. Left atrium severely dilated, severe tricuspid regurgitation, mild aortic regurgitation, mild mitral regurgitation and moderate pulmonary hypertension. Patient seen by cardiology services 4. Acute COPD exacerbation: continue IV Solu-Medrol. Continue DuoNeb updrafts. Pulmonary following. Patient has been transitioned to oral prednisone per pulmonary 5. History of chronic atrial fibrillation anticoagulated with Coumadin. INR Is 3.5. Pharmacy dosing Coumadin. No Coumadin scheduled for tonight. INR today 2.6. maintained on pharmacy dosing Coumadin 6. History of atrial septal defect status post closure in 2012 7. History of coronary artery disease status post cardiac stents 8. History of myocardial infarction 9. History of obstructive sleep apnea uses CPAP nightly. 10. Chronic kidney disease stage III. Creatinine since December is been around 1.8. concerns for possible obstructive uropathy due to patient's history of elevated PSA. He does follow with Dr. Morataya. kidney ultrasound did not reveal any evidence of obstructive uropathy. Nephrology services are following. Lasix on hold continue normal saline at 75 . Fluids DC'd. Lasix resumed 11. History of moderate to severe pulmonary hypertension 12. essential hypertension: Continue current blood pressure medications Cozaar and Norvasc 13. Hyperlipidemia continue statin. Statin on hold due to slightly elevated liver enzymes 14. acute kidney injury due to diuretics. We'll decrease Lasix from 40 mg by mouth twice a day to once a day.epeat labs in a.m. nephrology services are following. Lasix has been DC'd. Patient maintained on normal saline at 75. Current creatinine 2.64 and bun 106. Creatinine improving to 1.88 and bun 63. 40 mg Lasix has been resumed per nephrology 15. Patient now complaining of cough with some sputum production. We'll start Rocephin 1 g daily. Check sputum culture 16. Constipation. Lactulose to MiraLAX given without result. Will order enema 17. Slightly elevated liver enzymes. Statin on hold we'll continue to monitor DVT prophylaxis Coumadin. GI prophylaxis Pepcid. Cardiology has cleared patient for discharge Nephrology is following for acute kidney injury Pulmonary services have cleared patient for discharge I performed an examination of the patient and discussed their management with the Nurse Practitioner. I have reviewed the Nurse Practitioner's notes and agree with the documented findings and plan of care
--- NOTE | 2019-04-28 11:18 | PN ---
PROGRESS NOTE Patient is seen for followup for chronic kidney disease and acute kidney injury. Renal function has been slowly improving over the last 3 days. Patient has been diuresed as well. He initially received IV fluids. Patient has underlying COPD. He continues to complain of some dyspnea on exertion. This morning, complaining of constipation. PHYSICAL EXAMINATION: On examination, blood pressure was 154/60, heart rate 62 per minute, patient is afebrile. Examination of the heart S1, S2. Examination of lungs, decreased breath sounds at bases. Abdomen is soft, obese, nontender. Examination of the lower extremities shows edema 1+ bilaterally. HEALTH EDUCATION ASSISTANT exam grossly intact. LABS: Show sodium of 140, potassium 4.0, BUN 63, creatinine 1.8, hemoglobin 10.5 g/dL. ASSESSMENT: 1. Acute kidney injury, prerenal on initial admission, status post IV fluids, currently hypervolemic. Patient is back on his diuretics. He has received a couple of doses of IV Lasix. I will give him another dose of IV Lasix today. Chest x-ray from 04/25 continue to show worsening CHF. We can repeat another chest x-ray today as well. 2. Constipation, currently being treated. 3. Chronic kidney disease stage III, baseline creatinine 1.7-1.9 mg/dL. 4. Chronic atrial fibrillation, controlled ventricular response. 5. History of coronary artery disease, status post coronary artery bypass surgery. PLAN: Repeat IV Lasix x1 today and patient should continue Lasix 40 mg b.i.d. at the time of discharge and follow up in the office in about 1-2 weeks' time. MMODL / IJN: [id number] /
[2019-04-28 11:54] LABS: Glucose,Whole Blood 123 mg/dL (75-99)
[2019-04-28 17:16] LABS: Glucose,Whole Blood 181 mg/dL (75-99)
[2019-04-28] MEDS ORDERED: WARFARIN 1 MG TAB PO ONE (18:00)
[2019-04-28 19:43] LABS: Glucose,Whole Blood 254 mg/dL (75-99)
[2019-04-28] MEDS: ASPIRIN 81 MG PO SCH (19:54)
[2019-04-28] MEDS: POLYETHYLENE GLYCOL 3350 17 GM POWD.PACK PO SCH (19:54)
[2019-04-28] MEDS: amLODIPine 10 MG TAB PO SCH (19:55)
[2019-04-29 06:52] LABS: Glucose,Whole Blood 103 mg/dL (75-99)
[2019-04-29] MEDS: IPRATROPIUM-ALBUTEROL 3 ML NEB INHALATION SCH ×4 (07:02→18:55)
[2019-04-29] MEDS: INSULIN ASPART (NovoLOG) 100 UNIT/ML VIAL SQ SCH ×4 (07:21→21:14)
[2019-04-29 07:28] LABS: Basophils % (A) 0 %; Eosinophils # (A) 0.2 k/uL (0-0.7); Eosinophils % (A) 2 %; HGB 10.7 gm/dL (13.0-17.5); Lymphocytes # (A) 0.4 k/uL (1.0-4.8); Lymphocytes % (A) 4 %; MCH 31.1 pg (25.0-35.0); MCHC 32.5 g/dL (31.0-37.0); MCV 95.7 fL (80.0-100.0); Mean Platelet Volume 8.9; Monocytes # (A) 0.8 k/uL (0-1.0); Monocytes % (A) 8 %; Neutrophils # (A) 9.1 k/uL (1.3-7.7); Neutrophils % (A) 85 %; Platelet Count 124 k/uL (150-450); RBC 3.45 m/uL (4.30-5.90); RDW 15.9 % (11.5-15.5); WBC 10.6 k/uL (3.8-10.6)
[2019-04-29 07:43] LABS: Albumin 3.5 g/dL (3.5-5.0); Potassium 4.2 mmol/L (3.5-5.1); Total Bilirubin 0.9 mg/dL (0.2-1.3)
[2019-04-29 07:50] LABS: INR 2.6 (<1.2); Prothrombin Time 25.2 sec (9.0-12.0)
[2019-04-29] MEDS: MULTIVITAMINS, THERA 1 EACH TAB PO SCH (08:17)
[2019-04-29] MEDS: ASCORBIC ACID 500 MG TAB PO SCH (08:17)
[2019-04-29] MEDS: FUROSEMIDE 40 MG TAB PO SCH (08:17)
[2019-04-29] MEDS: METOPROLOL TARTRATE 25 MG TAB PO SCH ×2 (08:17→21:14)
[2019-04-29] MEDS: predniSONE 10 MG TAB PO SCH (08:17)
[2019-04-29] MEDS: FAMOTIDINE 20 MG TAB PO SCH (08:17)
[2019-04-29] MEDS: ALLOPURINOL 300 MG TAB PO SCH (08:18)
[2019-04-29] MEDS: LORATADINE 10 MG TAB PO SCH (08:18)
[2019-04-29] MEDS ORDERED: LACTULOSE 20 GM/30 ML CUP PO PRN (10:17)
--- NOTE | 2019-04-29 10:18 | P.PN ---
Subjective Patient is seen in follow-up for acute kidney injury on chronic kidney disease. Renal function is stable. Patient admits to constipation as well as swelling in his lower extremity is. Still gets dyspneic with even minimal exertion. No vomiting or diarrhea. He has been voiding. Vital signs are stable. General: The patient appeared well nourished and normally developed. HEENT: Head exam is unremarkable. Neck is without jugular venous distension. LUNGS: Lungs are clear to auscultation and percussion. Breath sounds decreased. HEART: Rate and Rhythm are regular. First and second heart sounds normal. No murmurs, rubs or gallops. ABDOMEN: Abdominal exam reveals normal bowel sounds. Nontender. EXTREMITITES: 1+ edema. Objective - Vital Signs Vital signs: Vital Signs Temp 97.6 F 04/29/19 07:00 Pulse 74 04/29/19 07:17 Resp 16 04/29/19 07:00 BP 140/72 04/29/19 07:00 Pulse Ox 92 L 04/29/19 07:00 Intake & Output 04/28/19 04/29/19 04/29/19 18:59 06:59 18:59 Intake Total 580 Balance 580 Weight 79.379 kg Intake: Oral 580 Other: # Voids 3 2 - Labs CBC & Chem 7: 04/29/19 06:47 04/29/19 06:47 Labs: Abnormal Lab Results - Last 24 Hours (Table) 04/28/19 04/28/19 04/28/19 Range/Units 11:53 17:16 19:41 RBC (4.30-5.90) m/uL Hgb (13.0-17.5) gm/dL Hct (39.0-53.0) % RDW (11.5-15.5) % Plt Count (150-450) k/uL Neutrophils # (1.3-7.7) k/uL Lymphocytes # (1.0-4.8) k/uL PT (9.0-12.0) sec INR (<1.2) BUN (9-20) mg/dL Creatinine (0.66-1.25) mg/dL POC Glucose (mg/dL) 123 H 181 H 254 H (75-99) mg/dL AST (17-59) U/L ALT (4-49) U/L Total Protein (6.3-8.2) g/dL 04/29/19 04/29/19 04/29/19 Range/Units 06:47 06:47 06:47 RBC 3.45 L (4.30-5.90) m/uL Hgb 10.7 L (13.0-17.5) gm/dL Hct 33.0 L (39.0-53.0) % RDW 15.9 H (11.5-15.5) % Plt Count 124 L (150-450) k/uL Neutrophils # 9.1 H (1.3-7.7) k/uL Lymphocytes # 0.4 L (1.0-4.8) k/uL PT 25.2 H (9.0-12.0) sec INR 2.6 H (<1.2) BUN 62 H (9-20) mg/dL Creatinine 1.81 H (0.66-1.25) mg/dL POC Glucose (mg/dL) (75-99) mg/dL AST 62 H (17-59) U/L ALT 86 H (4-49) U/L Total Protein 6.0 L (6.3-8.2) g/dL 04/29/19 Range/Units 06:51 RBC (4.30-5.90) m/uL Hgb (13.0-17.5) gm/dL Hct (39.0-53.0) % RDW (11.5-15.5) % Plt Count (150-450) k/uL Neutrophils # (1.3-7.7) k/uL Lymphocytes # (1.0-4.8) k/uL PT (9.0-12.0) sec INR (<1.2) BUN (9-20) mg/dL Creatinine (0.66-1.25) mg/dL POC Glucose (mg/dL) 103 H (75-99) mg/dL AST (17-59) U/L ALT (4-49) U/L Total Protein (6.3-8.2) g/dL Assessment and Plan Plan: Assessment: 1. Acute kidney injury initially prerenal and improved with IV hydration. Now hyperkalemic and is maintained on diuretics. Renal function stable. Creatinine 1.81 today. 2. Chronic kidney disease stage III with baseline creatinine in the range of 1.7-1.9. 3. Volume overload. 4. Constipation. 5. History of coronary artery disease status post CABG. 6. Hypertension with chronic kidney disease. Controlled. Plan: Change Lasix to torsemide 40 mg once daily. Add lactulose as needed for constipation. Repeat electrolytes in the morning. Avoid nephrotoxins.
[2019-04-29] MEDS: TORSEMIDE 20 MG TAB PO SCH (11:29)
[2019-04-29 11:50] LABS: Glucose,Whole Blood 184 mg/dL (75-99)
--- NOTE | 2019-04-29 14:00 | P.PN ---
Subjective Progress Note Date: 04/29/19 this is a 79-year-old male, a patient of Dr. Brink. He has a known past medical history of chronic atrial fibrillation antic PFO status post percutaneous closure, pacemaker placement for sick sinus syndrome, obstructive sleep apnea uses CPAPmachine, hypertension, myocardial infarction, severe pulmonary hypertension and a prior history of smoking. Patient presents to the emergency room with increasing shortness of breath over the last 2 weeks. Patient does report that his PCP had decreased his Lasix from 40 mg twice a day to once a day about a month ago. He does notice at evening time he does have some swelling in the legs. And occasionally he'll take Lasix 20 mg before bedtime. He denies any cough, fever, chills or sweats, or chest pain. patient seen in the ER. His oxygen saturation did decrease down to 88% he's currently on 2 L at 93%. He did receive a dose of IV Lasix, IV steroids and nebulizer treatments in ER for COPD exacerbation and CHF exacerbation. Both cardiology and pulmonary service has been consult. D-dimer is normal at 0.25. Creatinine elevated at 1.8 nd in December creatinine was 1.8. Patient also had reported some swelling around his nose this morning which now resolved. He denies any tongue or lip swelling. 04/21/2019 patient still reporting some shortness of breath. Still on 3 L of oxygen. He has been seen by both cardiology and pulmonary service. Patient denies any chest pain, nausea or vomiting bowel movement changes or urinary symptoms. Creatinine is up to 2.17. Patient is having hyperglycemia secondary to steroids insulin sliding scale has been added. On 04/22/2019 patient is still complaining of shortness of breath with any activity otherwise he denies any complaints there is no fever or chills no headache or dizziness no chest pain no cough no nausea or vomiting no abdominal pain no diarrhea no burning with urination no frequency or urgency and no hematuria On 04/23/2019 patient was seen and examined on the medical floor he is alert and oriented 3 in no apparent distress he is still complaining of shortness of breath with activity otherwise no complaints there is no fever or chills no headache or dizziness no chest pain no cough no nausea or vomiting no abdominal pain no diarrhea no burning was urination no frequency or urgency and no hematuria. Kidney function is still worsening was elevated BUN and creatinine today. Nephrology consultation requested patient was seen by Dr. Dr. Cheung, he is off diuretic at this time On 04/24/2019 patient alert and oriented 3. Patient still having some shortness of breath with activity but denies any chest pain. Creatinine today 2.64 and bun 106. Nephrology services are following. Patient is also still maintained on IV Solu-Medrol. Lasix DC'd. Patient is having bowel movements. Patient denies chest pain. Patient denies nausea vomiting or diarrhea. Patient denies any urinary burning or frequency On 04/25/2019 patient's alert and oriented 3. Patient having some increased shortness of breath today. Chest x-ray chest ultrasound completed per pulmonary. Kidney enzymes slightly improved. Nephrology services are following. Per pulmonary pleural effusion seen on ultrasound to small to drain. Nephrology and pulmonary services are following. Patient denies chest pain. Patient denies any nausea vomiting or diarrhea. Patient denies any urinary burning or frequency On 04/26/2019 patient was seen and examined on the medical floor, he is alert and oriented 3 in no apparent distress, he is complaining of shortness of breath with any activity, he is complaining of constipation, otherwise he denies any complaints there is no fever or chills no headache or dizziness no chest pain no nausea or vomiting no abdominal pain no diarrhea no burning with uri nation no frequency or urgency and no hematuria 04/27/2019 patient is alert and oriented 3. Patient received one dose of lasix 40 mg on 04/26/2019. creat improving to 2.02. nephro and pulmonary following. patient having some shortness of breath with exertion. denies chest pain. denies nausea vomitin or diarrhea. On 04/28/2019 patient's alert and oriented 3. Creatinine improving to 1.88 and bun 63. Pulmonary services have signed off. Per nephrology will give extra dose of Lasix due to patient reporting he is having shortness breath with activity. Patient remains on oral prednisone and Rocephin. Daily 40 mg Lasix has been resumed per nephrology will continue to monitor kidney function with initiation of diuretics. Patient also complaining is not had a bowel movement in 3 days. Enema will be ordered. Patient denies chest pain. Patient reports he still having shortness breath with activity. Patient denies any urinary burning or frequency. Patient denies any nausea or vomiting On 04/29/2019 patient was seen and examined on the medical floor he is alert and oriented 3 in no apparent distress he is still complaining of shortness of breath with any activity he is complaining of constipation otherwise he denies any complaints there is no fever or chills no headache or dizziness no chest pain no cough no nausea or vomiting no diarrhea no abdominal pain no burning was urination no frequency or urgency and no hematuria Objective - Vital Signs Vital signs: Vital Signs Temp 97.6 F 04/29/19 07:00 Pulse 80 04/29/19 11:12 Resp 16 04/29/19 07:00 BP 140/72 04/29/19 07:00 Pulse Ox 92 L 04/29/19 07:00 Intake & Output 04/28/19 04/29/19 04/29/19 18:59 06:59 18:59 Intake Total 580 Balance 580 Weight 79.379 kg Intake: Oral 580 Other: # Voids 3 2 - Exam In general patient is alert and oriented 3 in no apparent distress HEENT head normocephalic and atraumatic Neck is supple no JVD no goiter no lymphadenopathy Chest exam reveals a few scattered crackles bilaterally no wheezing Cardiac exam reveals regular heart sounds S1 and S2 no gallops no murmurs Abdomen is soft nontender no organomegaly with normal bowel sounds Extremity exam reveals no edema no cyanosis or clubbing Neurological examination reveals no gross focal deficit - Labs CBC & Chem 7: 04/29/19 06:47 04/29/19 06:47 Labs: Abnormal Lab Results - Last 24 Hours (Table) 04/28/19 04/28/19 04/29/19 Range/Units 17:16 19:41 06:47 RBC (4.30-5.90) m/uL Hgb (13.0-17.5) gm/dL Hct (39.0-53.0) % RDW (11.5-15.5) % Plt Count (150-450) k/uL Neutrophils # (1.3-7.7) k/uL Lymphocytes # (1.0-4.8) k/uL PT 25.2 H (9.0-12.0) sec INR 2.6 H (<1.2) BUN (9-20) mg/dL Creatinine (0.66-1.25) mg/dL POC Glucose (mg/dL) 181 H 254 H (75-99) mg/dL AST (17-59) U/L ALT (4-49) U/L Total Protein (6.3-8.2) g/dL 04/29/19 04/29/19 04/29/19 Range/Units 06:47 06:47 06:51 RBC 3.45 L (4.30-5.90) m/uL Hgb 10.7 L (13.0-17.5) gm/dL Hct 33.0 L (39.0-53.0) % RDW 15.9 H (11.5-15.5) % Plt Count 124 L (150-450) k/uL Neutrophils # 9.1 H (1.3-7.7) k/uL Lymphocytes # 0.4 L (1.0-4.8) k/uL PT (9.0-12.0) sec INR (<1.2) BUN 62 H (9-20) mg/dL Creatinine 1.81 H (0.66-1.25) mg/dL POC Glucose (mg/dL) 103 H (75-99) mg/dL AST 62 H (17-59) U/L ALT 86 H (4-49) U/L Total Protein 6.0 L (6.3-8.2) g/dL 04/29/19 Range/Units 11:46 RBC (4.30-5.90) m/uL Hgb (13.0-17.5) gm/dL Hct (39.0-53.0) % RDW (11.5-15.5) % Plt Count (150-450) k/uL Neutrophils # (1.3-7.7) k/uL Lymphocytes # (1.0-4.8) k/uL PT (9.0-12.0) sec INR (<1.2) BUN (9-20) mg/dL Creatinine (0.66-1.25) mg/dL POC Glucose (mg/dL) 184 H (75-99) mg/dL AST (17-59) U/L ALT (4-49) U/L Total Protein (6.3-8.2) g/dL Assessment and Plan Plan: 1. Shortness of breath and hypoxemia likely multifactorial. Per cardiology symptoms are likely related to his valvular heart disease and uncontrolled hypertension. cardiology has increased the Lopressor from 25 mg once a day to twice a day. symptoms also could be related to CHF exacerbation and possible COPD. Patient has been seen by both cardiology and pulmonary services. Cardiology has cleared patient for discharge. Chest x-ray completed showing cardiomegaly with small to moderate size right greater than left pleural effusion increased in size from most recent. Associated bibasilar atelectasis and/or infiltrate also prominent recent x-ray correlate for worsening CHF. Chest ultrasound completed per pulmonary. Per pulmonary pleural effusion too small to drain at this time will consider adding small dose of diuretic. Patient received lasix 40mg on 04/27/2019. On a services have signed off 2. Acute hypoxic respiratory failure:secondary to CHF exacerbation and COPD exacerbation. Patient is usually not on oxygen at home. 3. Acute on chronic diastolic CHF exacerbation: Chest x-ray showing new trace pleural effusion and bibasilar airspace disease, possibly atelectasis. Correlate for CHF. BNP 1040. Patient did receive a dose of IV Lasix in the emergency room. Lasix dose had been decreased by PCP over the last month from 40 mg twice a day to once a day. Echo completed showing an EF of 55-60%. Left atrium severely dilated, severe tricuspid regurgitation, mild aortic regurgitation, mild mitral regurgitation and moderate pulmonary hypertension. Patient seen by cardiology services 4. Acute COPD exacerbation: continue IV Solu-Medrol. Continue DuoNeb updrafts. Pulmonary following. Patient has been transitioned to oral prednisone per pulmonary 5. History of chronic atrial fibrillation anticoagulated with Coumadin. INR Is 3.5. Pharmacy dosing Coumadin. No Coumadin scheduled for tonight. INR today 2.6. maintained on pharmacy dosing Coumadin 6. History of atrial septal defect status post closure in 2012 7. History of coronary artery disease status post cardiac stents 8. History of myocardial infarction 9. History of obstructive sleep apnea uses CPAP nightly. 10. Chronic kidney disease stage III. Creatinine since December is been around 1.8. concerns for possible obstructive uropathy due to patient's history of elevated PSA. He does follow with Dr. [place]. kidney ultrasound did not reveal any evidence of obstructive uropathy. Nephrology services are following. Lasix on hold continue normal saline at 75 . Fluids DC'd. Lasix resumed 11. History of moderate to severe pulmonary hypertension 12. essential hypertension: Continue current blood pressure medications Cozaar and Norvasc 13. Hyperlipidemia continue statin. Statin on hold due to slightly elevated liver enzymes 14. acute kidney injury due to diuretics. We'll decrease Lasix from 40 mg by mouth twice a day to once a day.epeat labs in a.m. nephrology services are following. Lasix has been DC'd. Patient maintained on normal saline at 75. Current creatinine 2.64 and bun 106. Creatinine improving to 1.88 and bun 63. 40 mg Lasix has been resumed per nephrology 15. Patient now complaining of cough with some sputum production. We'll start Rocephin 1 g daily. Check sputum culture 16. Constipation. Lactulose to MiraLAX given without result. Will order enema 17. Slightly elevated liver enzymes. Statin on hold we'll continue to monitor DVT prophylaxis Coumadin. GI prophylaxis Pepcid. Cardiology has cleared patient for discharge Nephrology is following for acute kidney injury Pulmonary services have cleared patient for discharge
[2019-04-29 16:50] LABS: Glucose,Whole Blood 194 mg/dL (75-99)
[2019-04-29] MEDS ORDERED: WARFARIN 1 MG TAB PO ONE (18:00)
[2019-04-29 20:18] LABS: Glucose,Whole Blood 213 mg/dL (75-99)
[2019-04-29] MEDS: POLYETHYLENE GLYCOL 3350 17 GM POWD.PACK PO SCH (21:14)
[2019-04-29] MEDS: amLODIPine 10 MG TAB PO SCH (21:14)
[2019-04-29] MEDS: ASPIRIN 81 MG PO SCH (21:14)
[2019-04-30 07:07] LABS: Glucose,Whole Blood 104 mg/dL (75-99)
[2019-04-30 07:40] LABS: Basophils % (A) 0 %; Eosinophils # (A) 0.2 k/uL (0-0.7); Eosinophils % (A) 2 %; HCT 31.7 % (39.0-53.0); HGB 10.3 gm/dL (13.0-17.5); Lymphocytes # (A) 0.6 k/uL (1.0-4.8); Lymphocytes % (A) 5 %; MCH 30.6 pg (25.0-35.0); MCHC 32.4 g/dL (31.0-37.0); MCV 94.2 fL (80.0-100.0); Mean Platelet Volume 9.1; Monocytes # (A) 0.9 k/uL (0-1.0); Monocytes % (A) 8 %; Neutrophils # (A) 8.4 k/uL (1.3-7.7); Neutrophils % (A) 83 %; Platelet Count 123 k/uL (150-450); RBC 3.36 m/uL (4.30-5.90); WBC 10.2 k/uL (3.8-10.6)
[2019-04-30 07:53] LABS: INR 2.9 (<1.2); Prothrombin Time 27.7 sec (9.0-12.0)
[2019-04-30 08:10] LABS: Albumin 3.2 g/dL (3.5-5.0); Calcium 8.7 mg/dL (8.4-10.2); Magnesium 2.1 mg/dL (1.6-2.3); Potassium 3.7 mmol/L (3.5-5.1); Total Bilirubin 0.8 mg/dL (0.2-1.3); Total Protein 5.6 g/dL (6.3-8.2)
[2019-04-30] MEDS: IPRATROPIUM-ALBUTEROL 3 ML NEB INHALATION SCH ×4 (09:20→21:33)
[2019-04-30] MEDS: INSULIN ASPART (NovoLOG) 100 UNIT/ML VIAL SQ SCH ×4 (09:23→20:42)
[2019-04-30] MEDS: TORSEMIDE 20 MG TAB PO SCH (09:30)
[2019-04-30] MEDS: METOPROLOL TARTRATE 25 MG TAB PO SCH ×2 (09:30→20:43)
[2019-04-30] MEDS: predniSONE 10 MG TAB PO SCH (09:30)
[2019-04-30] MEDS: LORATADINE 10 MG TAB PO SCH (09:31)
[2019-04-30] MEDS: ASCORBIC ACID 500 MG TAB PO SCH (09:31)
[2019-04-30] MEDS: ALLOPURINOL 300 MG TAB PO SCH (09:31)
[2019-04-30] MEDS: FAMOTIDINE 20 MG TAB PO SCH (09:31)
[2019-04-30] MEDS: MULTIVITAMINS, THERA 1 EACH TAB PO SCH (09:31)
--- NOTE | 2019-04-30 10:15 | P.PN ---
Subjective Progress Note Date: 04/30/19 this is a 79-year-old male, a patient of Dr. Brink. He has a known past medical history of chronic atrial fibrillation antic PFO status post percutaneous closure, pacemaker placement for sick sinus syndrome, obstructive sleep apnea uses CPAPmachine, hypertension, myocardial infarction, severe pulmonary hypertension and a prior history of smoking. Patient presents to the emergency room with increasing shortness of breath over the last 2 weeks. Patient does report that his PCP had decreased his Lasix from 40 mg twice a day to once a day about a month ago. He does notice at evening time he does have some swelling in the legs. And occasionally he'll take Lasix 20 mg before bedtime. He denies any cough, fever, chills or sweats, or chest pain. patient seen in the ER. His oxygen saturation did decrease down to 88% he's currently on 2 L at 93%. He did receive a dose of IV Lasix, IV steroids and nebulizer treatments in ER for COPD exacerbation and CHF exacerbation. Both cardiology and pulmonary service has been consult. D-dimer is normal at 0.25. Creatinine elevated at 1.8 nd in December creatinine was 1.8. Patient also had reported some swelling around his nose this morning which now resolved. He denies any tongue or lip swelling. 04/21/2019 patient still reporting some shortness of breath. Still on 3 L of oxygen. He has been seen by both cardiology and pulmonary service. Patient denies any chest pain, nausea or vomiting bowel movement changes or urinary symptoms. Creatinine is up to 2.17. Patient is having hyperglycemia secondary to steroids insulin sliding scale has been added. On 04/22/2019 patient is still complaining of shortness of breath with any activity otherwise he denies any complaints there is no fever or chills no headache or dizziness no chest pain no cough no nausea or vomiting no abdominal pain no diarrhea no burning with urination no frequency or urgency and no hematuria On 04/23/2019 patient was seen and examined on the medical floor he is alert and oriented 3 in no apparent distress he is still complaining of shortness of breath with activity otherwise no complaints there is no fever or chills no headache or dizziness no chest pain no cough no nausea or vomiting no abdominal pain no diarrhea no burning was urination no frequency or urgency and no hematuria. Kidney function is still worsening was elevated BUN and creatinine today. Nephrology consultation requested patient was seen by Dr. Dr. Cheung, he is off diuretic at this time On 04/24/2019 patient alert and oriented 3. Patient still having some shortness of breath with activity but denies any chest pain. Creatinine today 2.64 and bun 106. Nephrology services are following. Patient is also still maintained on IV Solu-Medrol. Lasix DC'd. Patient is having bowel movements. Patient denies chest pain. Patient denies nausea vomiting or diarrhea. Patient denies any urinary burning or frequency On 04/25/2019 patient's alert and oriented 3. Patient having some increased shortness of breath today. Chest x-ray chest ultrasound completed per pulmonary. Kidney enzymes slightly improved. Nephrology services are following. Per pulmonary pleural effusion seen on ultrasound to small to drain. Nephrology and pulmonary services are following. Patient denies chest pain. Patient denies any nausea vomiting or diarrhea. Patient denies any urinary burning or frequency On 04/26/2019 patient was seen and examined on the medical floor, he is alert and oriented 3 in no apparent distress, he is complaining of shortness of breath with any activity, he is complaining of constipation, otherwise he denies any complaints there is no fever or chills no headache or dizziness no chest pain no nausea or vomiting no abdominal pain no diarrhea no burning with uri nation no frequency or urgency and no hematuria 04/27/2019 patient is alert and oriented 3. Patient received one dose of lasix 40 mg on 04/26/2019. creat improving to 2.02. nephro and pulmonary following. patient having some shortness of breath with exertion. denies chest pain. denies nausea vomitin or diarrhea. On 04/28/2019 patient's alert and oriented 3. Creatinine improving to 1.88 and bun 63. Pulmonary services have signed off. Per nephrology will give extra dose of Lasix due to patient reporting he is having shortness breath with activity. Patient remains on oral prednisone and Rocephin. Daily 40 mg Lasix has been resumed per nephrology will continue to monitor kidney function with initiation of diuretics. Patient also complaining is not had a bowel movement in 3 days. Enema will be ordered. Patient denies chest pain. Patient reports he still having shortness breath with activity. Patient denies any urinary burning or frequency. Patient denies any nausea or vomiting On 04/29/2019 patient was seen and examined on the medical floor he is alert and oriented 3 in no apparent distress he is still complaining of shortness of breath with any activity he is complaining of constipation otherwise he denies any complaints there is no fever or chills no headache or dizziness no chest pain no cough no nausea or vomiting no diarrhea no abdominal pain no burning was urination no frequency or urgency and no hematuria On 04/30/2019 patient is alert and oriented 3 patient is asymptomatic at rest however he has significant shortness of breath with any activity, otherwise he denies any complaints there is no fever or chills no headache or dizziness no chest pain no cough no nausea or vomiting no abdominal pain no diarrhea no burning was urination no frequency or urgency and no hematuria Objective - Vital Signs Vital signs: Vital Signs Temp 98.4 F 04/30/19 07:00 Pulse 75 04/30/19 07:00 Resp 17 04/30/19 07:00 BP 150/74 04/30/19 07:00 Pulse Ox 90 L 04/30/19 07:00 Intake & Output 04/29/19 04/30/19 04/30/19 18:59 06:59 18:59 Other: # Voids 1 1 - Exam In general patient is alert and oriented 3 in no apparent distress HEENT head normocephalic and atraumatic Neck is supple no JVD no goiter no lymphadenopathy Chest exam reveals a few scattered crackles bilaterally no wheezing Cardiac exam reveals regular heart sounds S1 and S2 no gallops no murmurs Abdomen is soft nontender no organomegaly with normal bowel sounds Extremity exam reveals no edema no cyanosis or clubbing Neurological examination reveals no gross focal deficit - Labs CBC & Chem 7: 04/30/19 06:50 04/30/19 06:50 Labs: Abnormal Lab Results - Last 24 Hours (Table) 04/29/19 04/29/19 04/29/19 Range/Units 06:47 11:46 16:47 RBC (4.30-5.90) m/uL Hgb (13.0-17.5) gm/dL Hct (39.0-53.0) % RDW (11.5-15.5) % Plt Count (150-450) k/uL Neutrophils # (1.3-7.7) k/uL Lymphocytes # (1.0-4.8) k/uL PT 25.2 H (9.0-12.0) sec INR 2.6 H (<1.2) POC Glucose (mg/dL) 184 H 194 H (75-99) mg/dL 04/29/19 04/30/19 04/30/19 Range/Units 20:16 06:50 07:05 RBC 3.36 L (4.30-5.90) m/uL Hgb 10.3 L (13.0-17.5) gm/dL Hct 31.7 L (39.0-53.0) % RDW 16.0 H (11.5-15.5) % Plt Count 123 L (150-450) k/uL Neutrophils # 8.4 H (1.3-7.7) k/uL Lymphocytes # 0.6 L (1.0-4.8) k/uL PT (9.0-12.0) sec INR (<1.2) POC Glucose (mg/dL) 213 H 104 H (75-99) mg/dL Assessment and Plan Plan: 1. Shortness of breath and hypoxemia likely multifactorial. Per cardiology symptoms are likely related to his valvular heart disease and uncontrolled hypertension. cardiology has increased the Lopressor from 25 mg once a day to t wice a day. symptoms also could be related to CHF exacerbation and possible COPD. Patient has been seen by both cardiology and pulmonary services. Cardiology has cleared patient for discharge. Chest x-ray completed showing cardiomegaly with small to moderate size right greater than left pleural e ffusion increased in size from most recent. Associated bibasilar atelectasis and/or infiltrate also prominent recent x-ray correlate for worsening CHF. Chest ultrasound completed per pulmonary. Per pulmonary pleural effusion too small to drain at this time will consider adding small dose of diuretic. Patient received lasix 40mg on 04/27/2019. On a services have signed off 2. Acute hypoxic respiratory failure:secondary to CHF exacerbation and COPD exacerbation. Patient is usually not on oxygen at home. 3. Acute on chronic diastolic CHF exacerbation: Chest x-ray showing new trace pleural effusion and bibasilar airspace disease, possibly atelectasis. Correlate for CHF. BNP 1040. Patient did receive a dose of IV Lasix in the emergency room. Lasix dose had been decreased by PCP over the last month from 40 mg twice a day to once a day. Echo completed showing an EF of 55-60%. Left atrium severely dilated, severe tricuspid regurgitation, mild aortic regurgitation, mild mitral regurgitation and moderate pulmonary hypertension. Patient seen by cardiology services 4. Acute COPD exacerbation: continue IV Solu-Medrol. Continue DuoNeb updrafts. Pulmonary following. Patient has been transitioned to oral prednisone per pulmonary 5. History of chronic atrial fibrillation anticoagulated with Coumadin. INR Is 3.5. Pharmacy dosing Coumadin. No Coumadin scheduled for tonight. INR today 2.6. maintained on pharmacy dosing Coumadin 6. History of atrial septal defect status post closure in 2012 7. History of coronary artery disease status post cardiac stents 8. History of myocardial infarction 9. History of obstructive sleep apnea uses CPAP nightly. 10. Chronic kidney disease stage III. Creatinine since December is been around 1.8. concerns for possible obstructive uropathy due to patient's history of elevated PSA. He does follow with Dr. [place]aya. kidney ultrasound did not reveal any evidence of obstructive uropathy. Nephrology services are following. Lasix on hold continue normal saline at 75 . Fluids DC'd. Lasix resumed 11. History of moderate to severe pulmonary hypertension 12. essential hypertension: Continue current blood pressure medications Cozaar and Norvasc 13. Hyperlipidemia continue statin. Statin on hold due to slightly elevated liver enzymes 14. acute kidney injury due to diuretics. We'll decrease Lasix from 40 mg by mouth twice a day to once a day.epeat labs in a.m. nephrology services are following. Lasix has been DC'd. Patient maintained on normal saline at 75. Current creatinine 2.64 and bun 106. Creatinine improving to 1.88 and bun 63. 40 mg Lasix has been resumed per nephrology 15. Patient now complaining of cough with some sputum production. We'll start Rocephin 1 g daily. Check sputum culture 16. Constipation. Lactulose to MiraLAX given without result. Will order enema 17. Slightly elevated liver enzymes. Statin on hold we'll continue to monitor DVT prophylaxis Coumadin. GI prophylaxis Pepcid. Cardiology has cleared patient for discharge Nephrology is following for acute kidney injury Pulmonary services have cleared patient for discharge
--- NOTE | 2019-04-30 11:26 | P.PN ---
Subjective Patient is seen in follow-up for acute kidney injury on chronic kidney disease. Renal function is a little worse which is due to diuresis. Constipation resolved. Urine output is good. Edema improving. Vital signs are stable. General: The patient appeared well nourished and normally developed. HEENT: Head exam is unremarkable. Neck is without jugular venous distension. LUNGS: Lungs are clear to auscultation and percussion. Breath sounds decreased. HEART: Rate and Rhythm are regular. First and second heart sounds normal. No murmurs, rubs or gallops. ABDOMEN: Abdominal exam reveals normal bowel sounds. Nontender. EXTREMITITES: 1+ edema. Objective - Vital Signs Vital signs: Vital Signs Temp 98.4 F 04/30/19 07:00 Pulse 84 04/30/19 09:36 Resp 17 04/30/19 08:15 BP 150/74 04/30/19 07:00 Pulse Ox 90 L 04/30/19 07:00 Intake & Output 04/29/19 04/30/19 04/30/19 18:59 06:59 18:59 Other: # Voids 1 1 - Labs CBC & Chem 7: 04/30/19 06:50 04/30/19 06:50 Labs: Abnormal Lab Results - Last 24 Hours (Table) 04/29/19 04/29/19 04/29/19 Range/Units 11:46 16:47 20:16 RBC (4.30-5.90) m/uL Hgb (13.0-17.5) gm/dL Hct (39.0-53.0) % RDW (11.5-15.5) % Plt Count (150-450) k/uL Neutrophils # (1.3-7.7) k/uL Lymphocytes # (1.0-4.8) k/uL PT (9.0-12.0) sec INR (<1.2) BUN (9-20) mg/dL Creatinine (0.66-1.25) mg/dL POC Glucose (mg/dL) 184 H 194 H 213 H (75-99) mg/dL ALT (4-49) U/L Total Protein (6.3-8.2) g/dL Albumin (3.5-5.0) g/dL 04/30/19 04/30/19 04/30/19 Range/Units 06:50 06:50 06:50 RBC 3.36 L (4.30-5.90) m/uL Hgb 10.3 L (13.0-17.5) gm/dL Hct 31.7 L (39.0-53.0) % RDW 16.0 H (11.5-15.5) % Plt Count 123 L (150-450) k/uL Neutrophils # 8.4 H (1.3-7.7) k/uL Lymphocytes # 0.6 L (1.0-4.8) k/uL PT 27.7 H (9.0-12.0) sec INR 2.9 H (<1.2) BUN 57 H (9-20) mg/dL Creatinine 2.04 H (0.66-1.25) mg/dL POC Glucose (mg/dL) (75-99) mg/dL ALT 79 H (4-49) U/L Total Protein 5.6 L (6.3-8.2) g/dL Albumin 3.2 L (3.5-5.0) g/dL 04/30/19 Range/Units 07:05 RBC (4.30-5.90) m/uL Hgb (13.0-17.5) gm/dL Hct (39.0-53.0) % RDW (11.5-15.5) % Plt Count (150-450) k/uL Neutrophils # (1.3-7.7) k/uL Lymphocytes # (1.0-4.8) k/uL PT (9.0-12.0) sec INR (<1.2) BUN (9-20) mg/dL Creatinine (0.66-1.25) mg/dL POC Glucose (mg/dL) 104 H (75-99) mg/dL ALT (4-49) U/L Total Protein (6.3-8.2) g/dL Albumin (3.5-5.0) g/dL Assessment and Plan Plan: Assessment: 1. Acute kidney injury initially prerenal and improved with IV hydration. Now hypervolemic and is maintained on diuretics. Renal function a little worse which is due to diuresis. Creatinine 2.04 today. 2. Chronic kidney disease stage III with baseline creatinine in the range of 1.7-1.9. 3. Volume overload. Improving with diuresis. 4. Constipation. Resolved. 5. History of coronary artery disease status post CABG. 6. Hypertension with chronic kidney disease. Controlled. Plan: Continue torsemide 40 mg once daily. Maintain lactulose as needed for constipation. Repeat electrolytes in the morning. Avoid nephrotoxins.
[2019-04-30 11:35] LABS: Glucose,Whole Blood 123 mg/dL (75-99)
[2019-04-30 16:31] LABS: Glucose,Whole Blood 225 mg/dL (75-99)
[2019-04-30] MEDS ORDERED: WARFARIN 0.5 MG TAB PO ONE (18:00)
[2019-04-30 20:26] LABS: Glucose,Whole Blood 175 mg/dL (75-99)
[2019-04-30] MEDS: amLODIPine 10 MG TAB PO SCH (20:43)
[2019-04-30] MEDS: POLYETHYLENE GLYCOL 3350 17 GM POWD.PACK PO SCH (20:43)
[2019-04-30] MEDS: ASPIRIN 81 MG PO SCH (20:43)
[2019-05-01 07:28] LABS: Glucose,Whole Blood 98 mg/dL (75-99)
[2019-05-01 07:32] LABS: Basophils % (A) 0 %; Eosinophils # (A) 0.2 k/uL (0-0.7); Eosinophils % (A) 2 %; HCT 33.1 % (39.0-53.0); HGB 11.2 gm/dL (13.0-17.5); Lymphocytes # (A) 0.9 k/uL (1.0-4.8); Lymphocytes % (A) 7 %; MCH 32.1 pg (25.0-35.0); MCHC 33.9 g/dL (31.0-37.0); MCV 94.7 fL (80.0-100.0); Mean Platelet Volume 9.2; Monocytes # (A) 0.8 k/uL (0-1.0); Monocytes % (A) 7 %; Neutrophils % (A) 82 %; Platelet Count 116 k/uL (150-450); RBC 3.49 m/uL (4.30-5.90); RDW 15.9 % (11.5-15.5); WBC 12.1 k/uL (3.8-10.6)
[2019-05-01 07:40] VITALS: BP 155/71; RESP 18; TEMP 98.3
[2019-05-01 07:41] LABS: INR 2.3 (<1.2); Prothrombin Time 22.2 sec (9.0-12.0)
[2019-05-01 07:52] LABS: Albumin 3.3 g/dL (3.5-5.0); Calcium 8.7 mg/dL (8.4-10.2); Potassium 3.2 mmol/L (3.5-5.1); Total Bilirubin 1.1 mg/dL (0.2-1.3); Total Protein 5.8 g/dL (6.3-8.2)
[2019-05-01] MEDS: ASCORBIC ACID 500 MG TAB PO SCH (09:02)
[2019-05-01] MEDS: FAMOTIDINE 20 MG TAB PO SCH (09:02)
[2019-05-01] MEDS: LORATADINE 10 MG TAB PO SCH (09:02)
[2019-05-01] MEDS: IPRATROPIUM-ALBUTEROL 3 ML NEB INHALATION SCH ×2 (09:02→12:28)
[2019-05-01] MEDS: ALLOPURINOL 300 MG TAB PO SCH (09:03)
[2019-05-01] MEDS: MULTIVITAMINS, THERA 1 EACH TAB PO SCH (09:03)
[2019-05-01] MEDS: METOPROLOL TARTRATE 25 MG TAB PO SCH (09:03)
[2019-05-01] MEDS: predniSONE 10 MG TAB PO SCH (09:03)
[2019-05-01] MEDS: INSULIN ASPART (NovoLOG) 100 UNIT/ML VIAL SQ SCH ×2 (09:04→13:09)
[2019-05-01 09:19] VITALS: PULSE 80
[2019-05-01] MEDS: TORSEMIDE 20 MG TAB PO SCH (09:58)
[2019-05-01] MEDS: POTASSIUM CHLORIDE ER 20 MEQ TAB.ER PO SCH ×2 (09:59→14:15)
[2019-05-01] MEDS ORDERED: POTASSIUM CHLORIDE ER 20 MEQ TAB.ER PO STA (10:30)
--- NOTE | 2019-05-01 10:38 | P.PN ---
Subjective Patient is seen in follow-up for acute kidney injury on chronic kidney disease. Renal function is fairly stable. Weight trending down. Overall feels better today. Vital signs are stable. General: The patient appeared well nourished and normally developed. HEENT: Head exam is unremarkable. Neck is without jugular venous distension. LUNGS: Lungs are clear to auscultation and percussion. Breath sounds decreased. HEART: Rate and Rhythm are regular. First and second heart sounds normal. No murmurs, rubs or gallops. ABDOMEN: Abdominal exam reveals normal bowel sounds. Nontender. EXTREMITITES: 1+ edema. Objective - Vital Signs Vital signs: Vital Signs Temp 98.3 F 05/01/19 07:00 Pulse 80 05/01/19 09:18 Resp 18 05/01/19 07:00 BP 155/71 05/01/19 07:00 Pulse Ox 90 L 05/01/19 09:02 Intake & Output 04/30/19 05/01/19 05/01/19 18:59 06:59 18:59 Intake Total 120 240 Balance 120 240 Weight 84 kg 81.102 kg Intake: Oral 120 240 Other: Voiding Method Indwelling Catheter # Voids 2 1 - Labs CBC & Chem 7: 05/01/19 06:40 05/01/19 06:40 Labs: Abnormal Lab Results - Last 24 Hours (Table) 04/30/19 04/30/19 04/30/19 Range/Units 11:34 16:29 20:24 WBC (3.8-10.6) k/uL RBC (4.30-5.90) m/uL Hgb (13.0-17.5) gm/dL Hct (39.0-53.0) % RDW (11.5-15.5) % Plt Count (150-450) k/uL Neutrophils # (1.3-7.7) k/uL Lymphocytes # (1.0-4.8) k/uL PT (9.0-12.0) sec INR (<1.2) Potassium (3.5-5.1) mmol/L Carbon Dioxide (22-30) mmol/L BUN (9-20) mg/dL Creatinine (0.66-1.25) mg/dL POC Glucose (mg/dL) 123 H 225 H 175 H (75-99) mg/dL ALT (4-49) U/L Total Protein (6.3-8.2) g/dL Albumin (3.5-5.0) g/dL 05/01/19 05/01/19 05/01/19 Range/Units 06:40 06:40 06:40 WBC 12.1 H (3.8-10.6) k/uL RBC 3.49 L (4.30-5.90) m/uL Hgb 11.2 L (13.0-17.5) gm/dL Hct 33.1 L (39.0-53.0) % RDW 15.9 H (11.5-15.5) % Plt Count 116 L (150-450) k/uL Neutrophils # 10.0 H (1.3-7.7) k/uL Lymphocytes # 0.9 L (1.0-4.8) k/uL PT 22.2 H (9.0-12.0) sec INR 2.3 H (<1.2) Potassium 3.2 L (3.5-5.1) mmol/L Carbon Dioxide 33 H (22-30) mmol/L BUN 58 H (9-20) mg/dL Creatinine 1.98 H (0.66-1.25) mg/dL POC Glucose (mg/dL) (75-99) mg/dL ALT 81 H (4-49) U/L Total Protein 5.8 L (6.3-8.2) g/dL Albumin 3.3 L (3.5-5.0) g/dL Assessment and Plan Plan: Assessment: 1. Acute kidney injury initially prerenal and improved with IV hydration. Now hypervolemic and is maintained on diuretics. Renal function is stable. Creatinine 1.96 today. 2. Chronic kidney disease stage III with baseline creatinine in the range of 1.7-1.9. 3. Volume overload. Improving with diuresis. 4. Constipation. Resolved. 5. History of coronary artery disease status post CABG. 6. Hypertension with chronic kidney disease. Controlled. 7. Hypokalemia secondary to diuresis. Magnesium normal. Plan: Continue torsemide 40 mg once daily. Replace potassium. 60 mg once today. Add daily potassium supplementation. Maintain lactulose as needed for constipation. Repeat electrolytes in the morning. Avoid nephrotoxins. Anticipate discharge soon. Follow up outpatient in the next 2 weeks. BMP and magnesium level 2-3 days postdischarge.
[2019-05-01 11:52] LABS: Glucose,Whole Blood 149 mg/dL (75-99)
--- NOTE | 2019-05-01 12:29 | P.DS ---
Providers Date of admission: 04/20/19 12:09 Expected date of discharge: 05/01/19 Attending physician: Louis Mondragon Consults: 04/20/19 11:52 Consult Physician Routine Consulting Provider: Kell Kirkpatrick Consult Reason/Comments: COPD exacerbation CHF, hypoxemia Do you want consulting provider notified?: Yes 04/20/19 14:37 Consult Physician Routine Consulting Provider: Radha Diego Consult Reason/Comments: shortness of breath, CHF Do you want consulting provider notified?: Yes 04/22/19 12:50 Consult Physician Routine Consulting Provider: Jaquelin Boykin Consult Reason/Comments: acute on chronic renal failure Do you want consulting provider notified?: Yes Primary care physician: Christin Brink Hospital Course: Discharge diagnosis 1. Shortness of breath and hypoxemia likely multifactorial. Per cardiology symptoms are likely related to his valvular heart disease and uncontrolled hypertension. cardiology has increased the Lopressor from 25 mg once a day to twice a day. symptoms also could be related to CHF exacerbation and possible COPD. Patient has been seen by both cardiology and pulmonary services. Cardiology has cleared patient for discharge. Chest x-ray completed showing cardiomegaly with small to moderate size right greater than left pleural effusion increased in size from most recent. Associated bibasilar atelectasis and/or infiltrate also prominent recent x-ray correlate for worsening CHF. Chest ultrasound completed per pulmonary. Per pulmonary pleural effusion too small to drain at this time will consider adding small dose of diuretic. Patient received lasix 40mg on 04/27/2019. Pulmonary services have signed off 2. Acute hypoxic respiratory failure:secondary to CHF exacerbation and COPD exacerbation. Patient is usually not on oxygen at home. Patient did meet criteria for home O2 this admission. Decreasing to 85% on room air with activity 3. Acute on chronic diastolic CHF exacerbation: Chest x-ray showing new trace pleural effusion and bibasilar airspace disease, possibly atelectasis. Correlate for CHF. BNP 1040. Patient did receive a dose of IV Lasix in the emergency room. Lasix dose had been decreased by PCP over the last month from 40 mg twice a day to once a day. Echo completed showing an EF of 55-60%. Left atrium severely dilated, severe tricuspid regurgitation, mild aortic regurgitation, mild mitral regurgitation and moderate pulmonary hypertension. Patient seen by cardiology services and cleared for discharge. Patient to follow-up outpatient with cardiology services 4. Acute COPD exacerbation: continue IV Solu-Medrol. Continue DuoNeb updrafts. Pulmonary following. Patient has been transitioned to oral prednisone per pulmonary. Patient will be discharged on prednisone taper and follow up with pulmonary services for further management 5. History of chronic atrial fibrillation anticoagulated with Coumadin. INR Is 3.5. Pharmacy dosing Coumadin. No Coumadin scheduled for tonight. INR today 2.6. maintained on pharmacy dosing Coumadin. Resume home Coumadin dose 6. History of atrial septal defect status post closure in 2012 7. History of coronary artery disease status post cardiac stents 8. History of myocardial infarction 9. History of obstructive sleep apnea uses CPAP nightly. 10. Chronic kidney disease stage III. Creatinine since December is been around 1.8. concerns for possible obstructive uropathy due to patient's history of elevated PSA. He does follow with Dr. Morataya. kidney ultrasound did not reveal any evidence of obstructive uropathy. Nephrology services are following. Lasix on hold continue normal saline at 75 . Fluids DC'd. Patient has been switched to torsemide per nephrology services. Creatinine 1.98 and bun 58. Patient has been cleared for discharge from nephrology standpoint will be discharged on torsemide. Lasix DC'd. 11. History of moderate to severe pulmonary hypertension 12. essential hypertension: Continue current blood pressure medications Cozaar and Norvasc. Cozaar has been DC'd due to acute kidney injury 13. Hyperlipidemia continue statin. Statin on hold due to slightly elevated liver enzymes 14. acute kidney injury due to diuretics. We'll decrease Lasix from 40 mg by mouth twice a day to once a day.epeat labs in a.m. nephrology services are following. Lasix has been DC'd. Patient maintained on normal saline at 75. Current creatinine 2.64 and bun 106. Creatinine improving to 1.88 and bun 63. Patient has been switched to torsemide per nephrology services. Patient to follow-up with nephrology services and repeat BMP has been ordered for 2 days 15. Patient now complaining of cough with some sputum production. We'll start Rocephin 1 g daily. Check sputum culture. No need for antibiotics upon discharge 16. Constipation. Lactulose to MiraLAX given without result. Will order enema. Patient did have BM. Lactulose ordered. Patient requesting lactulose u neymar discharge to help with constipation 17. Slightly elevated liver enzymes. Statin on hold we'll continue to monitor. Resolved. Patient to resume Lipitor dose 18. Hypokalemia. Potassium replacement protocol will be DC'd on potassium supplement Hospital course this is a 79-year-old male, a patient of Dr. Brink. He has a known past medical history of chronic atrial fibrillation antic PFO status post percutaneous closure, pacemaker placement for sick sinus syndrome, obstructive sleep apnea uses CPAPmachine, hypertension, myocardial infarction, severe pulmon richard hypertension and a prior history of smoking. Patient presents to the emergency room with increasing shortness of breath over the last 2 weeks. Patient does report that his PCP had decreased his Lasix from 40 mg twice a day to once a day about a month ago. He does notice at evening time he does have some swelling in the legs. And occasionally he'll take Lasix 20 mg before bedtime. He denies any cough, fever, chills or sweats, or chest pain. patient seen in the ER. His oxygen saturation did decrease down to 88% he's currently on 2 L at 93%. He did receive a dose of IV Lasix, IV steroids and nebulizer treatments in ER for COPD exacerbation and CHF exacerbation. Both cardiology and pulmonary service has been consult. D-dimer is normal at 0.25. Creatinine elevated at 1.8 nd in December creatinine was 1.8. Patient also had reported some swelling around his nose this morning which now resolved. He denies any tongue or lip swelling. 04/21/2019 patient still reporting some shortness of breath. Still on 3 L of oxygen. He has been seen by both cardiology and pulmonary service. Patient denies any chest pain, nausea or vomiting bowel movement changes or urinary symptoms. Creatinine is up to 2.17. Patient is having hyperglycemia secondary to steroids insulin sliding scale has been added. On 04/22/2019 patient is still complaining of shortness of breath with any activity otherwise he denies any complaints there is no fever or chills no headache or dizziness no chest pain no cough no nausea or vomiting no abdominal pain no diarrhea no burning with urination no frequency or urgency and no hematuria On 04/23/2019 patient was seen and examined on the medical floor he is alert and oriented 3 in no apparent distress he is still complaining of shortness of breath with activity otherwise no complaints there is no fever or chills no headache or dizziness no chest pain no cough no nausea or vomiting no abdominal pain no diarrhea no burning was urination no frequency or urgency and no hematuria. Kidney function is still worsening was elevated BUN and creatinine today. Nephrology consultation requested patient was seen by Dr. Dr. Cheung, he is off diuretic at this time On 04/24/2019 patient alert and oriented 3. Patient still having some shortness of breath with activity but denies any chest pain. Creatinine today 2.64 and bun 106. Nephrology services are following. Patient is also still maintained on IV Solu-Medrol. Lasix DC'd. Patient is having bowel movements. Patient denies chest pain. Patient denies nausea vomiting or diarrhea. Patient denies any urinary burning or frequency On 04/25/2019 patient's alert and oriented 3. Patient having some increased shortness of breath today. Chest x-ray chest ultrasound completed per pulmonary. Kidney enzymes slightly improved. Nephrology services are following. Per pulmonary pleural effusion seen on ultrasound to small to drain. Nephrology and pulmonary services are following. Patient denies chest pain. Patient denies any nausea vomiting or diarrhea. Patient denies any urinary burning or frequency On 04/26/2019 patient was seen and examined on the medical floor, he is alert and oriented 3 in no apparent distress, he is complaining of shortness of breath with any activity, he is complaining of constipation, otherwise he denies any complaints there is no fever or chills no headache or dizziness no chest pain no nausea or vomiting no abdominal pain no diarrhea no burning with urination no frequency or urgency and no hematuria 04/27/2019 patient is alert and oriented 3. Patient received one dose of lasix 40 mg on 04/26/2019. creat improving to 2.02. nephro and pulmonary following. patient having some shortness of breath with exertion. denies chest pain. denies nausea vomitin or diarrhea. On 04/28/2019 patient's alert and oriented 3. Creatinine improving to 1.88 and bun 63. Pulmonary services have signed off. Per nephrology will give extra dose of Lasix due to patient reporting he is having shortness breath with activity. Patient remains on oral prednisone and Rocephin. Daily 40 mg Lasix has been resumed per nephrology will continue to monitor kidney function with initiation of diuretics. Patient also complaining is not had a bowel movement in 3 days. Enema will be ordered. Patient denies chest pain. Patient reports he still having shortness breath with activity. Patient denies any urinary burning or frequency. Patient denies any nausea or vomiting On 04/29/2019 patient was seen and examined on the medical floor he is alert and oriented 3 in no apparent distress he is still complaining of shortness of breath with any activity he is complaining of constipation otherwise he denies any complaints there is no fever or chills no headache or dizziness no chest pain no cough no nausea or vomiting no diarrhea no abdominal pain no burning was urination no frequency or urgency and no hematuria On 04/30/2019 patient is alert and oriented 3 patient is asymptomatic at rest however he has significant shortness of breath with any activity, otherwise he denies any complaints there is no fever or chills no headache or dizziness no chest pain no cough no nausea or vomiting no abdominal pain no diarrhea no burning was urination no frequency or urgency and no hematuria On 05/01/2019 patient's alert and oriented 3. Patient feels improved and ready for discharge. Patient does require home O2. Upon ambulation on room air patient destating to 85 home O2 has been ordered. Patient will be DC'd on prednisone taper for COPD exacerbation. Diuretic has been changed to torsemide per nephrology services. Patient to follow-up with nephrology, cardiology and pulmonary services outpatient. Lactulose will be ordered for constipation. Repeat BMP with mag has been ordered for 2 days. at bedside all questions answered I performed an examination of the patient and discussed their management with the Nurse Practitioner. I have reviewed the Nurse Practitioner's notes and agree with the documented findings and plan of care Patient Condition at Discharge: Stable Plan - Discharge Summary Discharge Rx Participant: No New Discharge Prescriptions: New Lactulose [Cephulac] 20 gm PO TID PRN #42 dose PRN Reason: Constipation Torsemide [Demadex] 40 mg PO DAILY 30 Days #30 tab predniSONE 10 mg PO DIRECTED 9 Days #18 tab Continue Warfarin [Coumadin] 1.5 mg PO MOTUTHFRSA Warfarin [Coumadin] 1 mg PO SUWE Atorvastatin [Lipitor] 40 mg PO HS Ascorbic Acid [Vitamin C] 1,000 mg PO DAILY Allopurinol [Zyloprim] 300 mg PO DAILY Multivitamins, Thera [Multivitamin (formulary)] 1 tab PO DAILY amLODIPine BESYLATE [Norvasc] 10 mg PO HS #30 tablet Loratadine [Claritin] 10 mg PO DAILY Aspirin EC [Ecotrin Low Dose] 81 mg PO HS Potassium Chloride ER [K-Dur 20] 20 meq PO DAILY Metoprolol Tartrate [Lopressor] 25 mg PO DAILY Discontinued Losartan Potassium [Cozaar] 100 mg PO DAILY #30 tab Furosemide [Lasix] 40 mg PO BID Discharge Medication List Allopurinol [Zyloprim] 300 mg PO DAILY 07/21/14 [History] Ascorbic Acid [Vitamin C] 1,000 mg PO DAILY 07/21/14 [History] Atorvastatin [Lipitor] 40 mg PO HS 07/21/14 [History] Warfarin [Coumadin] 1 mg PO SUWE 07/21/14 [History] Warfarin [Coumadin] 1.5 mg PO MOTUTHFRSA 07/21/14 [History] Multivitamins, Thera [Multivitamin (formulary)] 1 tab PO DAILY 05/04/16 [History] amLODIPine BESYLATE [Norvasc] 10 mg PO HS #30 tablet 05/06/16 [Rx] Aspirin EC [Ecotrin Low Dose] 81 mg PO HS 08/22/18 [History] Loratadine [Claritin] 10 mg PO DAILY 08/22/18 [History] Potassium Chloride ER [K-Dur 20] 20 meq PO DAILY 09/22/18 [History] Metoprolol Tartrate [Lopressor] 25 mg PO DAILY 04/20/19 [History] Lactulose [Cephulac] 20 gm PO TID PRN #42 dose 05/01/19 [Rx] Torsemide [Demadex] 40 mg PO DAILY 30 Days #30 tab 05/01/19 [Rx] predniSONE 10 mg PO DIRECTED 9 Days #18 tab 05/01/19 [Rx] Follow up Appointment(s)/Referral(s): Radha Diego MD [STAFF PHYSICIAN] - 2 Weeks Christin Brink MD [Primary Care Provider] - 1-2 days [facility] [NON-STAFF] - As Needed [facility], [NON-STAFF] - 1-2 Days Damian Brunson DO [STAFF PHYSICIAN] - 2 Weeks Peri Mcdonnell MD [STAFF PHYSICIAN] - 2 Weeks Ambulatory/Diagnostic Orders: Basic Metabolic Panel [LAB.AMB] Time Frame: 2 Days, Location: None Selected Activity/Diet/Wound Care/Special Instructions: activity as tolerated Diet Heart healthy Home O2 Discharge Disposition: HOME WITH HOME HEALTH SERVICES
[2019-05-01] MEDS ORDERED: WARFARIN 1 MG TAB PO ONE (18:00)
[2019-05-02] MEDS ORDERED: POTASSIUM CHLORIDE ER 20 MEQ TAB.ER PO SCH (09:00)
== END 2019-05-01 14:50 | disposition home health service (06) | DRG 306 ==
LOC: EC 08:50 → 5NMEDONC 12:09 → OBSVTOIN 12:09 → 4SSUR 16:25
PROVIDERS: ADMIT Internal Medicine; ATTEND Internal Medicine
PROC: 5A09557 Assistance with Respiratory Ventilation, Greater than 96 Consecutive Hours, Continuous Positive Airway Pressure (ICD-10-PCS; principal; 2019-04-24)
DX: I08.3 Combined rheumatic disorders of mitral, aortic and tricuspid valves (principal); J96.01 Acute respiratory failure with hypoxia; I50.33 Acute on chronic diastolic (congestive) heart failure; I13.0 Hypertensive heart and chronic kidney disease with heart failure and stage 1 through stage 4 chronic kidney disease, or unspecified chronic kidney disease; E87.2 Acidosis; I48.19 Other persistent atrial fibrillation; N17.9 Acute kidney failure, unspecified; J44.1 Chronic obstructive pulmonary disease with (acute) exacerbation; J98.11 Atelectasis; G47.33 Obstructive sleep apnea (adult) (pediatric); E87.6 Hypokalemia; E87.5 Hyperkalemia; I25.10 Atherosclerotic heart disease of native coronary artery without angina pectoris; D63.1 Anemia in chronic kidney disease; E78.5 Hyperlipidemia, unspecified; R74.8 Abnormal levels of other serum enzymes; E86.9 Volume depletion, unspecified; N18.3 Chronic kidney disease, stage 3 (moderate); K59.00 Constipation, unspecified; I95.1 Orthostatic hypotension; I27.29 Other secondary pulmonary hypertension; I49.5 Sick sinus syndrome; T38.0X5A Adverse effect of glucocorticoids and synthetic analogues, initial encounter; T50.2X5A Adverse effect of carbonic-anhydrase inhibitors, benzothiadiazides and other diuretics, initial encounter; Z87.74 Personal history of (corrected) congenital malformations of heart and circulatory system; Z80.3 Family history of malignant neoplasm of breast; Z87.891 Personal history of nicotine dependence; I25.2 Old myocardial infarction; Z95.0 Presence of cardiac pacemaker; Z95.1 Presence of aortocoronary bypass graft; Z95.5 Presence of coronary angioplasty implant and graft; Z79.899 Other long term (current) drug therapy; Z79.01 Long term (current) use of anticoagulants; Z79.82 Long term (current) use of aspirin; Z99.89 Dependence on other enabling machines and devices
CPT/HCPCS: 36415; 71046; 76604; 76770; 80048; 80053; 81003; 82550; 82570; 83735; 83880; 84156; 84484; 85025; 85379; 85610; 85730; 87070; 87205; 93005; 93306; 94640; 94760; 96361; 96374; 96375; 99285

== ENCOUNTER → 2019-08-21 | Outpatient (CLI) | payer MEDICARE, BC ==
[2019-08-21 09:05] LABS: Basophils % (A) 0 %; Eosinophils # (A) 0.3 k/uL (0-0.7); Eosinophils % (A) 5 %; HCT 36.2 % (39.0-53.0); HGB 11.1 gm/dL (13.0-17.5); Hypochromasia Slight; Lymphocytes # (A) 0.6 k/uL (1.0-4.8); Lymphocytes % (A) 9 %; MCHC 30.6 g/dL (31.0-37.0); MCV 88.2 fL (80.0-100.0); Mean Platelet Volume 9.3; Monocytes # (A) 0.6 k/uL (0-1.0); Monocytes % (A) 8 %; Neutrophils # (A) 5.2 k/uL (1.3-7.7); Neutrophils % (A) 75 %; Platelet Count 163 k/uL (150-450); RBC 4.11 m/uL (4.30-5.90); RDW 15.7 % (11.5-15.5); WBC 6.9 k/uL (3.8-10.6)
[2019-08-21 09:15] LABS: Appearance,Urine Clear (Clear); Bilirubin,Urine Negative (Negative); Blood,Urine Negative (Negative); Color,Urine Light Yellow; Glucose,Urine (UA) Negative (Negative); Ketones,Urine Negative (Negative); Leukocyte Esterase,Urine Negative (Negative); Nitrite,Urine Negative (Negative); PH, Urine 6.5 (5.0-8.0); Protein,Urine Negative (Negative); Specific Gravity,Urine 1.007 (1.001-1.035); Urobilinogen,Urine <2.0 mg/dL (<2.0)
[2019-08-21 17:06] LABS: Ferritin 25.9 ng/mL (22.0-322.0)
[2019-08-21 17:24] LABS: % Iron Saturation 7.61 (15.00-50.00); African American GFR (CKD) 40.6 (60.0-200.0); Albumin 4.1 g/dL (3.80-4.90); Albumin/Globulin Ratio 2.16 (1.60-3.17); Anion Gap 9.7 mmol/L (4.00-12.00); BUN/Creat Ratio 26.11 Ratio (12.00-20.00); Carbon Dioxide 27.3 mmol/L (21.6-31.8); Globulin 1.9 g/dL (1.6-3.3); Magnesium 2.2 mg/dL (1.5-2.4); Phosphorus 3.7 mg/dL (2.4-5.1); Potassium 4.1 mmol/L (3.5-5.5); Total Bilirubin 0.6 mg/dL (0.3-1.2); Uric Acid 4.5 mg/dL (3.7-8.7)
== END | disposition home or self-care (01) ==
LOC: LABWHC1 08:35
PROVIDERS: ATTEND Internal Medicine
DX: N17.9 Acute kidney failure, unspecified (principal); M10.9 Gout, unspecified; N25.81 Secondary hyperparathyroidism of renal origin; N39.0 Urinary tract infection, site not specified; D64.9 Anemia, unspecified; E83.39 Other disorders of phosphorus metabolism; E55.9 Vitamin D deficiency, unspecified
CPT/HCPCS: 36415; 80053; 81003; 82306; 82728; 83540; 83550; 83735; 83970; 84100; 84550; 85025

== ENCOUNTER 2020-01-18 08:28 | Inpatient (IN) | payer MEDICARE, BC ==
--- NOTE | 2020-01-18 09:19 | ED ---
General Adult HPI - General Chief complaint: Shortness of Breath Stated complaint: SOB Time Seen by Provider: 01/18/20 08:30 Source: patient, RN notes reviewed, old records reviewed Mode of arrival: ambulatory Limitations: no limitations - History of Present Illness Initial comments: This is a 79-year-old male with a past medical history significant for kidney failure. Patient also states he believes congestive heart failure the past per patient states over the last 5 days he's had some difficulty breathing and appears to be getting worse day by day. Patient states he doesn't have to walk very far and he becomes very short of breath. Patient states he has swelling in the legs bilaterally but he states this is at its baseline. Patient denies any fever chills or cough per patient denies any chest pain or palpitations. Patient states she also has a history of atrial fibrillation and has a pacemaker. Patient states he also is on Coumadin. Patient denies any abdominal pain patient denies nausea vomiting diarrhea. - Related Data Home Medications Medication Instructions Recorded Confirmed Ascorbic Acid [Vitamin C] 1,000 mg PO DAILY 07/21/14 01/18/20 Atorvastatin [Lipitor] 40 mg PO HS 07/21/14 01/18/20 Warfarin [Coumadin] 1 mg PO HS 07/21/14 01/18/20 allopurinoL [Zyloprim] 300 mg PO DAILY 07/21/14 01/18/20 Multivitamins, Thera [Multivitamin 1 tab PO DAILY 05/04/16 01/18/20 (formulary)] Aspirin EC [Ecotrin Low Dose] 81 mg PO HS 08/22/18 01/18/20 Loratadine [Claritin] 10 mg PO DAILY 08/22/18 01/18/20 Potassium Chloride ER [K-Dur 20] 20 meq PO DAILY 09/22/18 01/18/20 Metoprolol Tartrate [Lopressor] 25 mg PO DAILY 04/20/19 01/18/20 Ferrous Sulfate [Feosol] 325 mg PO DAILY 01/18/20 01/18/20 Folate 40 mg PO DAILY 01/18/20 01/18/20 Torsemide [Demadex] 20 mg PO DAILY 01/18/20 01/18/20 Previous Rx's Medication Instructions Recorded amLODIPine BESYLATE [Norvasc] 10 mg PO HS #30 tablet 05/06/16 Allergies Allergy/AdvReac Type Severity Reaction Status Date / Time No Known Allergies Allergy Verified 01/18/20 10:28 Review of Systems ROS Statement: Those systems with pertinent positive or pertinent negative responses have been documented in the HPI. ROS Other: All systems not noted in ROS Statement are negative. Past Medical History Past Medical History: Atrial Fibrillation, Coronary Artery Disease (CAD), COPD, Hyperlipidemia, Hypertension, Myocardial Infarction ([place]), Osteoarthritis (OA), Pneumonia, Prostate Disorder, Respiratory Disorder, Sleep Apnea/CPAP/BIPAP Additional Past Medical History / Comment(s): CAD, Afib, SSS with pacer, JOSE JUAN with Cpap, secondary pulmonary HTN with PAP 65, elevated PSA, gout great toes Last Myocardial Infarction Date:: 2001 History of Any Multi-Drug Resistant Organisms: None Reported Past Surgical History: Appendectomy, Heart Catheterization, Heart Catheterization With Stent, Orthopedic Surgery, Pacemaker Additional Past Surgical History / Comment(s): PCI with stents, pacemaker, percutaneous closure ASD/PFO, AVIVA, colonoscopy with bening polyps, ORIF R elbow and wrist as child. Past Anesthesia/Blood Transfusion Reactions: Motion Sickness Date of Last Stent Placement:: 10/2012 Type of Cardiac Device: Permanent Pacemaker Device Placement Date:: 2016 Past Psychological History: No Psychological Hx Reported Smoking Status: Former smoker Past Alcohol Use History: None Reported Past Drug Use History: None Reported - Past Family History Father Additional Family Medical History / Comment(s): Father had heart problems. Mother Family Medical History: AFIB Additional Family Medical History / Comment(s): Mother had heart problems. Sister(s) Family Medical History: Cancer Additional Family Medical History / Comment(s): Breast cancer General Exam - General Exam Comments Initial Comments: GENERAL: Patient is well-developed and well-nourished. Patient is nontoxic and well- hydrated and is in mild distress. ENT: Neck is soft and supple. No significant lymphadenopathy is noted. Oropharynx is clear. Moist mucous membranes. Neck has full range of motion without eliciting any pain. EYES: The sclera were anicteric and conjunctiva were pink and moist. Extraocular movements were intact and pupils were equal round and reactive to light. Eyelids were unremarkable. PULMONARY: Unlabored respirations. Good breath sounds bilaterally. No audible rales rhonchi or wheezing was noted. CARDIOVASCULAR: There is a regular rate and rhythm without any murmurs gallops or rubs. ABDOMEN: Soft and nontender with normal bowel sounds. No palpable organomegaly was noted. There is no palpable pulsatile mass. SKIN: Skin is clear with no lesions or rashes and otherwise unremarkable. NEUROLOGIC: Patient is alert and oriented x3. Cranial nerves II through XII are grossly intact. Motor and sensory are also intact. Normal speech, volume and content. Symmetrical smile. MUSCULOSKELETAL: Normal extremities with adequate strength and full range of motion. 2+ edema bilaterally LYMPHATICS: No significant lymphadenopathy is noted PSYCHIATRIC: Normal psychiatric evaluation. Limitations: no limitations Course Vital Signs 01/18/20 08:31 Temperature 98.3 F Pulse Rate 77 Respiratory 18 Rate Blood Pressure 136/77 O2 Sat by Pulse 88 L Oximetry Medical Decision Making - Medical Decision Making EKG shows atrial fibrillation with occasional paced complexes. QRS is 86 QT interval 424 QTC is 460. Patient's EKG shows no ST segment elevation or depression Chest x-ray shows a pleural effusion on the right side that was not there on a previous chest x-ray. Patient was satting 88% on room air when he entered the ER. I spoke with Dr. Mondragon he agreed to admit the patient admitted the patient wrote admitting orders. - Lab Data Result diagrams: 01/18/20 09:06 01/18/20 09:06 Lab Results 01/18/20 01/18/20 01/18/20 Range/Units 09:06 09:06 09:06 WBC 7.8 (3.8-10.6) k/uL RBC 3.91 L (4.30-5.90) m/uL Hgb 11.3 L (13.0-17.5) gm/dL Hct 35.8 L (39.0-53.0) % MCV 91.6 (80.0-100.0) fL MCH 28.9 (25.0-35.0) pg MCHC 31.5 (31.0-37.0) g/dL RDW 16.2 H (11.5-15.5) % Plt Count 127 L (150-450) k/uL Neutrophils % 80 % Lymphocytes % 7 % Monocytes % 8 % Eosinophils % 3 % Basophils % 0 % Neutrophils # 6.2 (1.3-7.7) k/uL Lymphocytes # 0.6 L (1.0-4.8) k/uL Monocytes # 0.6 (0-1.0) k/uL Eosinophils # 0.3 (0-0.7) k/uL Basophils # 0.0 (0-0.2) k/uL Anisocytosis Slight PT 25.8 H (9.0-12.0) sec INR 2.7 H (<1.2) APTT 39.7 H (22.0-30.0) sec Sodium 142 (137-145) mmol/L Potassium 3.7 (3.5-5.1) mmol/L Chloride 106 (98-107) mmol/L Carbon Dioxide 24 (22-30) mmol/L Anion Gap 12 mmol/L BUN 41 H (9-20) mg/dL Creatinine 1.62 H (0.66-1.25) mg/dL Est GFR (CKD-EPI)AfAm 46 (>60 ml/min/1.73 sqM) Est GFR (CKD-EPI)NonAf 40 (>60 ml/min/1.73 sqM) Glucose 133 H (74-99) mg/dL Plasma Lactic Acid Seamus (0.7-2.0) mmol/L Calcium 9.0 (8.4-10.2) mg/dL Magnesium 2.2 (1.6-2.3) mg/dL Total Bilirubin 0.9 (0.2-1.3) mg/dL AST 33 (17-59) U/L ALT 17 (4-49) U/L Alkaline Phosphatase 113 (38-126) U/L Troponin I (0.000-0.034) ng/mL NT-Pro-B Natriuret Pep pg/mL Total Protein 6.7 (6.3-8.2) g/dL Albumin 4.1 (3.5-5.0) g/dL 01/18/20 01/18/20 01/18/20 Range/Units 09:06 09:06 09:06 WBC (3.8-10.6) k/uL RBC (4.30-5.90) m/uL Hgb (13.0-17.5) gm/dL Hct (39.0-53.0) % MCV (80.0-100.0) fL MCH (25.0-35.0) pg MCHC (31.0-37.0) g/dL RDW (11.5-15.5) % Plt Count (150-450) k/uL Neutrophils % % Lymphocytes % % Monocytes % % Eosinophils % % Basophils % % Neutrophils # (1.3-7.7) k/uL Lymphocytes # (1.0-4.8) k/uL Monocytes # (0-1.0) k/uL Eosinophils # (0-0.7) k/uL Basophils # (0-0.2) k/uL Anisocytosis PT (9.0-12.0) sec INR (<1.2) APTT (22.0-30.0) sec Sodium (137-145) mmol/L Potassium (3.5-5.1) mmol/L Chloride (98-107) mmol/L Carbon Dioxide (22-30) mmol/L Anion Gap mmol/L BUN (9-20) mg/dL Creatinine (0.66-1.25) mg/dL Est GFR (CKD-EPI)AfAm (>60 ml/min/1.73 sqM) Est GFR (CKD-EPI)NonAf (>60 ml/min/1.73 sqM) Glucose (74-99) mg/dL Plasma Lactic Acid Seamus 1.3 (0.7-2.0) mmol/L Calcium (8.4-10.2) mg/dL Magnesium (1.6-2.3) mg/dL Total Bilirubin (0.2-1.3) mg/dL AST (17-59) U/L ALT (4-49) U/L Alkaline Phosphatase (38-126) U/L Troponin I <0.012 (0.000-0.034) ng/mL NT-Pro-B Natriuret Pep 1500 pg/mL Total Protein (6.3-8.2) g/dL Albumin (3.5-5.0) g/dL Disposition Clinical Impression: Dyspnea, Pleural effusion Disposition: ADMITTED IP TO THIS HOSP Referrals: Christin Brink MD [Primary Care Provider] - 1-2 days Time of Disposition: 11:09
[2020-01-18 09:22] LABS: Anisocytosis Slight; Basophils % (A) 0 %; Eosinophils # (A) 0.3 k/uL (0-0.7); Eosinophils % (A) 3 %; HCT 35.8 % (39.0-53.0); HGB 11.3 gm/dL (13.0-17.5); Lymphocytes # (A) 0.6 k/uL (1.0-4.8); Lymphocytes % (A) 7 %; MCH 28.9 pg (25.0-35.0); MCHC 31.5 g/dL (31.0-37.0); MCV 91.6 fL (80.0-100.0); Mean Platelet Volume 8.8; Monocytes # (A) 0.6 k/uL (0-1.0); Monocytes % (A) 8 %; Neutrophils # (A) 6.2 k/uL (1.3-7.7); Neutrophils % (A) 80 %; Platelet Count 127 k/uL (150-450); RBC 3.91 m/uL (4.30-5.90); RDW 16.2 % (11.5-15.5); WBC 7.8 k/uL (3.8-10.6)
--- NOTE | 2020-01-18 09:29 | XR ---
EXAMINATION TYPE: XR chest 2V DATE OF EXAM: 01/18/2020 COMPARISON: 04/25/2019 HISTORY: Shortness of breath TECHNIQUE: Frontal and lateral views of the chest are obtained. FINDINGS: Scattered senescent parenchymal changes noted. Hyperinflation compatible with COPD. Persistent right lower lobe infiltrate and/or atelectasis with small effusions. Pulmonary vasculature is engorged however not overtly congested. Heart size is stable. Mediastinal structures are stable and grossly unremarkable. No evidence for hilar prominence. Degenerative changes dorsal spine. IMPRESSION: 1. Persistent right lower lobe infiltrate and/or atelectasis with small effusions. Pulmonary vasculat ure is engorged however not overtly congested.
[2020-01-18 09:34] LABS: INR 2.7 (<1.2); Partial Thromboplastin Time 39.7 sec (22.0-30.0); Prothrombin Time 25.8 sec (9.0-12.0)
[2020-01-18 10:03] LABS: Albumin 4.1 g/dL (3.5-5.0); Magnesium 2.2 mg/dL (1.6-2.3); Potassium 3.7 mmol/L (3.5-5.1); Total Bilirubin 0.9 mg/dL (0.2-1.3); Total Protein 6.7 g/dL (6.3-8.2)
[2020-01-18] MEDS ORDERED: SODIUM CHLORIDE 0.9% 1,000 ML IV ONE (11:16)
--- NOTE | 2020-01-18 16:42 | P.CNPUL ---
History of Present Illness Consult date: 01/18/20 Requesting physician: Chele Mendoza Reason for consult: dyspnea Chief complaint: Shortness of breath, exertional dyspnea, lower extremity swelling History of present illness: 79-year-old white male patient of Dr. Brink past medical history of chronic A. fib on Coumadin, CAD with stents, sick sinus syndrome status post permanent pacemaker implantation, previous history of ASD status post percutaneous closure, COPD, hypertension, hyperlipidemia previous history of pneumonia, sleep apnea on CPAP, presented to the hospital on 01/18/2020 with complaints of worsening dyspnea over the course of the last 5 days, exertional dyspnea, patient has not been able to walk very far before he becomes very short of breath, vision has increased swelling in his bilateral lower extremities. He denied any fever or chills, no couplets or chest pain, no palpitations, no cough. No abdominal pain, no nausea vomiting or diarrhea. Chest x-ray shows persistent right lower lobe infiltrate and/or atelectasis with small effusions. Pulmonary vasculature is engorged but not overly congested. EKG showed A. fib with frequent PVCs. We will talk on was nonelevated at 7.8, hemoglobin was 11.3, INR therapeutic at 2.7, electrolytes were within normal limits, BUN is 41 and creatinine is 1.69, lactic acid is 1.3, proBNP 1500, troponin is less than 0.012. No fever or chills, room air pulse ox is 100%, blood pressure is 148/91, A. fib with controlled rate at 70. Review of Systems All systems: negative Constitutional: Denies chills, Denies fever Eyes: denies blurred vision, denies pain Ears, nose, mouth and throat: Denies headache, Denies sore throat Cardiovascular: Reports decreased exercise tolerance, Reports dyspnea on exertion, Reports leg edema, Denies chest pain, Denies shortness of breath Respiratory: Reports dyspnea, Denies cough Gastrointestinal: Denies abdominal pain, Denies diarrhea, Denies nausea, Denies vomiting Musculoskeletal: Denies myalgias Integumentary: Denies pruritus, Denies rash Neurological: Denies numbness, Denies weakness Psychiatric: Denies anxiety, Denies depression Endocrine: Denies fatigue, Denies weight change Past Medical History Past Medical History: Atrial Fibrillation, Coronary Artery Disease (CAD), COPD, Hyperlipidemia, Hypertension, Myocardial Infarction (MT), Osteoarthritis (OA), Pneumonia, Prostate Disorder, Respiratory Disorder, Sleep Apnea/CPAP/BIPAP Additional Past Medical History / Comment(s): CAD, Afib, SSS with pacer, JOSE JUAN with Cpap, secondary pulmonary HTN with PAP 65, elevated PSA, gout great toes Last Myocardial Infarction Date:: 2001 History of Any Multi-Drug Resistant Organisms: None Reported Past Surgical History: Appendectomy, Heart Catheterization, Heart Catheterization With Stent, Orthopedic Surgery, Pacemaker Additional Past Surgical History / Comment(s): PCI with stents, pacemaker, percutaneous closure ASD/PFO, AVIVA, colonoscopy with bening polyps, ORIF R elbow and wrist as child. Past Anesthesia/Blood Transfusion Reactions: Motion Sickness Date of Last Stent Placement:: 10/2012 Type of Cardiac Device: Permanent Pacemaker Device Placement Date:: 2016 Past Psychological History: No Psychological Hx Reported Smoking Status: Former smoker Past Alcohol Use History: None Reported Past Drug Use History: None Reported - Past Family History Father Additional Family Medical History / Comment(s): Father had heart problems. Mother Family Medical History: AFIB Additional Family Medical History / Comment(s): Mother had heart problems. Sister(s) Family Medical History: Cancer Additional Family Medical History / Comment(s): Breast cancer Medications and Allergies Home Medications Medication Instructions Recorded Confirmed Type Ascorbic Acid [Vitamin C] 1,000 mg PO DAILY 07/21/14 01/18/20 History Atorvastatin [Lipitor] 40 mg PO HS 07/21/14 01/18/20 History Warfarin [Coumadin] 1 mg PO HS 07/21/14 01/18/20 History allopurinoL [Zyloprim] 300 mg PO DAILY 07/21/14 01/18/20 History Multivitamins, Thera [Multivitamin 1 tab PO DAILY 05/04/16 01/18/20 History (formulary)] amLODIPine BESYLATE [Norvasc] 10 mg PO HS #30 tablet 05/06/16 01/18/20 Rx Aspirin EC [Ecotrin Low Dose] 81 mg PO HS 08/22/18 01/18/20 History Loratadine [Claritin] 10 mg PO DAILY 08/22/18 01/18/20 History Potassium Chloride ER [K-Dur 20] 20 meq PO DAILY 09/22/18 01/18/20 History Metoprolol Tartrate [Lopressor] 25 mg PO DAILY 04/20/19 01/18/20 History Ferrous Sulfate [Feosol] 325 mg PO DAILY 01/18/20 01/18/20 History Folate 40 mg PO DAILY 01/18/20 01/18/20 History Torsemide [Demadex] 20 mg PO DAILY 01/18/20 01/18/20 History Allergies Allergy/AdvReac Type Severity Reaction Status Date / Time No Known Allergies Allergy Verified 01/18/20 10:28 Physical Exam Vitals: Vital Signs Temp Pulse Resp BP Pulse Ox 01/18/20 15:48 70 18 148/91 100 01/18/20 11:17 60 16 138/84 94 L 01/18/20 08:31 98.3 F 77 18 136/77 88 L Intake and Output 01/18/20 01/18/20 01/18/20 06:59 14:59 22:59 Other: Weight 74.843 kg GENERAL EXAM: Alert, very pleasant, 79-year-old white male, seen in the emergency department, resting on the gurney, currently on 2 L of oxygen with a pulse ox of 100% comfortable in no apparent distress. HEAD: Normocephalic/atraumatic. EYES: Normal reaction of pupils, equal size. Conjunctiva pink, sclera white. NOSE: Clear with pink turbinates. THROAT: No erythema or exudates. NECK: No masses, no JVD, no thyroid enlargement, no adenopathy. CHEST: No chest wall deformity. Symmetrical expansion. LUNGS: Equal air entry with no crackles, wheeze, rhonchi or dullness. CVS: Irregular rate and rhythm, normal S1 and S2, no gallops, systolic murmur present,, no rubs ABDOMEN: Soft, nontender. No hepatosplenomegaly, normal bowel sounds, no guarding or rigidity. EXTREMITIES: No clubbing, no edema, no cyanosis, 2+ pulses and upper and lower extremities. MUSCULOSKELETAL: Muscle strength and tone normal. SPINE: No scoliosis or deformity SKIN: No rashes CENTRAL NERVOUS SYSTEM: Alert and oriented -3. No focal deficits, tone is normal in all 4 extremities. PSYCHIATRIC: Alert and oriented -3. Appropriate affect. Intact judgment and insight. Results - Laboratory Findings CBC and BMP: 01/18/20 09:06 01/18/20 09:06 PT/INR, D-dimer PT 25.8 sec (9.0-12.0) H 01/18/20 09:06 INR 2.7 (<1.2) H 01/18/20 09:06 Abnormal lab findings: Abnormal Labs 01/18/20 01/18/20 01/18/20 09:06 09:06 09:06 RBC 3.91 L Hgb 11.3 L Hct 35.8 L RDW 16.2 H Plt Count 127 L Lymphocytes # 0.6 L PT 25.8 H INR 2.7 H APTT 39.7 H BUN 41 H Creatinine 1.62 H Glucose 133 H - Diagnostic Findings Chest x-ray: report reviewed, image reviewed Additional studies: EKG reviewed Assessment and Plan Plan: Assessment: #1. Dyspnea related to acute exacerbation of CHF fluid overload and small pleural effusions, right lower lobe infiltrate/atelectasis #2. History of chronic A. fib on Coumadin #3. History of sick sinus syndrome status post permanent pacemaker insertion #4. Obstructive sleep apnea on CPAP therapy #5. Secondary pulmonary hypertension with a PA pressure of 65 mmHg #6. Chronic stage III kidney disease with possible history of obstructive uropa thy #7. Gout #8. History of bilateral pleural effusions #9. Hyperlipidemia Plan: We'll contact IV fluids to KVO, start the patient on Lasix 40 mg every 12 hours, we'll restart patient's home medications. Follow-up chest x-ray in the morning, follow-up labs, CBC, electrolyte and renal profile, daily PT/INR, hold Coumadin for now. I performed a history & physical examination of the patient and discussed their management with my nurse practitioner, Yesy Hu. I reviewed the nurse milton escamilla's note and agree with the documented findings and plan of care. Lung sounds are positive for diminished breath sounds. The findings and the impression was discussed with the patient. I attest to the documentation by the nurse practitioner. Time with Patient: Greater than 30
[2020-01-18] MEDS: allopurinoL 300 MG TAB PO SCH (17:20)
[2020-01-18] MEDS: METOPROLOL TARTRATE 25 MG TAB PO SCH (17:21)
--- NOTE | 2020-01-18 17:29 | P.HPIM ---
History of Present Illness H&P Date: 01/18/20 Chief Complaint: Worsening shortness of breath Von Mascorro is a 79-year-old male, who presented to [facility] emergency room with a chief complaint of worsening shortness of breath patient stated that he started having severe shortness of breath 5 days ago he was unable to walk a few steps without having to stop, he was evaluated in the emergency room, vital examination reveals a temperature of 98.3 pulse 77 respiration 18 blood pressure 136/77 pulse ox was 88% on room air, laboratory data were significant for mild anemia with hemoglobin of 11.3 elevated BUN and creatinine at 41 and 1.62. Chest x-ray revealed evidence of pulmonary congestion and right lower lobe infiltrate and small pleural effusion, patient was admitted to medical floor pulmonary consultation was requested. Patient had similar presentation in April 2019 he was admitted to the hospital at that time he had evidence of congestive heart failure, COPD exacerbation, atrial fibrillation, acute on chronic kidney disease and small bilateral pleural effusion, patient was Eusebio eyes done discharged home, he has been doing well until the last few days. On review of systems patient is alert and oriented times is he in no apparent distress, he is complaining of shortness of breath otherwise he denies any complaints there is no fever or chills no headache or dizziness no chest pain he has occasional cough no palpitation no nausea or vomiting no abdominal pain no diarrhea no blood in the stools no burning with urination no frequency or urgency and no hematuria, no weakness or numbness in any of his extremities, no change in his vision speech or gait. Past Medical History Past Medical History: Atrial Fibrillation, Coronary Artery Disease (CAD), COPD, Hyperlipidemia, Hypertension, Myocardial Infarction (ID), Osteoarthritis (OA), Pneumonia, Prostate Disorder, Respiratory Disorder, Sleep Apnea/CPAP/BIPAP Additional Past Medical History / Comment(s): CAD, Afib, SSS with pacer, JOSE JUAN with Cpap, secondary pulmonary HTN with PAP 65, elevated PSA, gout great toes Last Myocardial Infarction Date:: 2001 History of Any Multi-Drug Resistant Organisms: None Reported Past Surgical History: Appendectomy, Heart Catheterization, Heart Ca theterization With Stent, Orthopedic Surgery, Pacemaker Additional Past Surgical History / Comment(s): PCI with stents, pacemaker, percutaneous closure ASD/PFO, AVIVA, colonoscopy with bening polyps, ORIF R elbow and wrist as child. Past Anesthesia/Blood Transfusion Reactions: Motion Sickness Date of Last Stent Placement:: 10/2012 Type of Cardiac Device: Permanent Pacemaker Device Placement Date:: 2016 Past Psychological History: No Psychological Hx Reported Smoking Status: Former smoker Past Alcohol Use History: None Reported Past Drug Use History: None Reported - Past Family History Father Additional Family Medical History / Comment(s): Father had heart problems. Mother Family Medical History: AFIB Additional Family Medical History / Comment(s): Mother had heart problems. Sister(s) Family Medical History: Cancer Additional Family Medical History / Comment(s): Breast cancer Medications and Allergies Home Medications Medication Instructions Recorded Confirmed Type Ascorbic Acid [Vitamin C] 1,000 mg PO DAILY 07/21/14 01/18/20 History Atorvastatin [Lipitor] 40 mg PO HS 07/21/14 01/18/20 History Warfarin [Coumadin] 1 mg PO HS 07/21/14 01/18/20 History allopurinoL [Zyloprim] 300 mg PO DAILY 07/21/14 01/18/20 History Multivitamins, Thera [Multivitamin 1 tab PO DAILY 05/04/16 01/18/20 History (formulary)] amLODIPine BESYLATE [Norvasc] 10 mg PO HS #30 tablet 05/06/16 01/18/20 Rx Aspirin EC [Ecotrin Low Dose] 81 mg PO HS 08/22/18 01/18/20 History Loratadine [Claritin] 10 mg PO DAILY 08/22/18 01/18/20 History Potassium Chloride ER [K-Dur 20] 20 meq PO DAILY 09/22/18 01/18/20 History Metoprolol Tartrate [Lopressor] 25 mg PO DAILY 04/20/19 01/18/20 History Ferrous Sulfate [Feosol] 325 mg PO DAILY 01/18/20 01/18/20 History Folate 40 mg PO DAILY 01/18/20 01/18/20 History Torsemide [Demadex] 20 mg PO DAILY 01/18/20 01/18/20 History Allergies Allergy/AdvReac Type Severity Reaction Status Date / Time No Known Allergies Allergy Verified 01/18/20 10:28 Physical Exam Vitals: Vital Signs Temp Pulse Resp BP Pulse Ox 01/18/20 15:48 70 18 148/91 100 01/18/20 11:17 60 16 138/84 94 L 01/18/20 08:31 98.3 F 77 18 136/77 88 L Intake and Output 01/18/20 01/18/20 01/18/20 06:59 14:59 22:59 Other: Weight 74.843 kg In general patient is alert and oriented 3 in no apparent distress HEENT head normocephalic and atraumatic Neck is supple no JVD no goiter no lymphadenopathy Chest exam few scattered rhonchi bilaterally no wheezing Cardiac exam reveals irregular heart sounds S1 and S2, with 2/6 systolic murmur in the left sternal border no gallops no rubs Abdomen is soft nontender no organomegaly with normal bowel sounds Extremity exam reveals no edema no cyanosis or clubbing Neurological examination reveals no gross focal deficit Results CBC & Chem 7: 01/18/20 09:06 01/18/20 09:06 Labs: Abnormal Lab Results - Last 24 Hours (Table) 01/18/20 01/18/20 01/18/20 Range/Units 09:06 09:06 09:06 RBC 3.91 L (4.30-5.90) m/uL Hgb 11.3 L (13.0-17.5) gm/dL Hct 35.8 L (39.0-53.0) % RDW 16.2 H (11.5-15.5) % Plt Count 127 L (150-450) k/uL Lymphocytes # 0.6 L (1.0-4.8) k/uL PT 25.8 H (9.0-12.0) sec INR 2.7 H (<1.2) APTT 39.7 H (22.0-30.0) sec BUN 41 H (9-20) mg/dL Creatinine 1.62 H (0.66-1.25) mg/dL Glucose 133 H (74-99) mg/dL Assessment and Plan Plan: 1. Worsening shortness of breath, likely related to acute congestive heart failure exacerbation, will check echocardiogram Will consult cardiology 2. Right lower lobe infiltrate with small pleural effusion pulmonary consultation was requested 3. Underlying history of chronic kidney disease 4. Underlying history of atrial fibrillation maintained on Coumadin heart rate is well-controlled 5. Underlying history of obstructive sleep apnea maintained on CPAP at home 6. Underlying history of cardiac arrhythmia was previous history of permanent pacemaker placement. 7. Underlying history of hyperlipidemia 8. Underlying history of gout At this time patient is admitted to medical floor Echocardiogram was ordered Cardiology consultation and pulmonary consultation requested Repeat labs and chest x-ray in a.m. Hold Coumadin at this time in anticipation of any intervention.
[2020-01-18] MEDS: ATORVASTATIN 40 MG TAB PO SCH (22:03)
[2020-01-18] MEDS: POTASSIUM CHLORIDE ER 20 MEQ TAB.ER PO SCH (22:03)
[2020-01-18] MEDS: ASPIRIN 81 MG PO SCH (22:03)
[2020-01-18] MEDS: FUROSEMIDE 10 MG/ML 4 ML VIAL IV SCH (22:03)
[2020-01-18] MEDS: amLODIPine 10 MG TAB PO SCH (22:03)
[2020-01-19 07:05] LABS: Anisocytosis Slight; Basophils % (A) 0 %; Eosinophils # (A) 0.2 k/uL (0-0.7); Eosinophils % (A) 4 %; HCT 34.3 % (39.0-53.0); HGB 10.8 gm/dL (13.0-17.5); Hypochromasia Slight; Lymphocytes # (A) 0.6 k/uL (1.0-4.8); Lymphocytes % (A) 9 %; MCH 29.1 pg (25.0-35.0); MCHC 31.6 g/dL (31.0-37.0); MCV 92.1 fL (80.0-100.0); Mean Platelet Volume 8.4; Monocytes # (A) 0.5 k/uL (0-1.0); Monocytes % (A) 7 %; Neutrophils % (A) 79 %; Platelet Count 125 k/uL (150-450); RBC 3.73 m/uL (4.30-5.90); RDW 16.2 % (11.5-15.5); WBC 6.4 k/uL (3.8-10.6)
[2020-01-19] MEDS: ASCORBIC ACID 500 MG TAB PO SCH (08:37)
[2020-01-19] MEDS: FERROUS SULFATE 325 MG TAB PO SCH (08:38)
[2020-01-19] MEDS: POTASSIUM CHLORIDE ER 20 MEQ TAB.ER PO SCH (08:38)
[2020-01-19] MEDS: FUROSEMIDE 10 MG/ML 4 ML VIAL IV SCH (08:38)
[2020-01-19] MEDS: METOPROLOL TARTRATE 25 MG TAB PO SCH (08:38)
[2020-01-19] MEDS: MULTIVITAMINS, THERA 1 EACH TAB PO SCH (08:38)
[2020-01-19] MEDS: allopurinoL 300 MG TAB PO SCH (08:38)
--- NOTE | 2020-01-19 10:15 | XR ---
EXAMINATION TYPE: XR chest 1V portable DATE OF EXAM: 01/19/2020 COMPARISON: 01/18/2020 INDICATION: Short of breath TECHNIQUE: Single frontal view of the chest is obtained. FINDINGS: The heart size is mildly enlarged. The pulmonary vasculature is normal. Right lower lobe consolidation is present. Correlate for pneumonia. Pacemaker overlies left chest IMPRESSION: 1. Right lower lobe consolidation. Correlate for pneumonia.
--- NOTE | 2020-01-19 10:21 | P.CRDCN ---
History of Present Illness History of present illness: HISTORY OF PRESENTING ILLNESS This is a pleasant 79-year-old male past medical history significant for chronic persistent atrial fibrillation on long-term anticoagulation, sick sinus syndrome status post permanent pacemaker implantation, coronary artery disease status post PCI to the RCA and circumflex artery, chronic diastolic heart failure, chronic pulmonary hypertension, dyslipidemia, hypertension and history of PFO status post closure. He follows in the office with Dr. Diego. We have been asked to see in consultation for heart failure. He presented to the hospital with symptoms of worsening shortness of breath over the previous 5 days. He states he becomes dyspneic with mild exertion or activity and feels SOB is retaining fluid and his lites. He is coughing with minimal sputum production. He denies chest pain, dizziness or palpitations. He was seen yesterday in evaluation by pulmonary care team and initiated on IV diuretics. This morning he is sitting up in bed. He continues to feel short of breath with no real improvement since admission. He continues to be coughing up scant amount of thick blood tinged sputum. In August 2018 he underwent a cardiac c atheterization revealing a patent stent in the RCA as well as the circumflex artery with a 50% ostial LAD disease and disease in the circumflex approximately 50%. Echocardiogram obtained April 2019 revealed preserved LV systolic function with ejection fraction 55-60% with severe tricuspid regurgitation and pulmonary hypertension with an RVSP of 62 mmHg. DIAGNOSTICS EKG reveals atrial fibrillation with controlled ventricular rate heart rate 71 intermittent paced beats, left axis deviation and poor R-wave progression. Chest xray persistent right lower lobe infiltrate. Laboratory reviewed, WBC 6.4, hemoglobin 10.8, platelets 125, INR 2.7, sodium 142, potassium 3.7, creatinine 1.62, magnesium 2.2, cardiac enzymes negative 1 and and T proBNP 1500. Current cardiac medications include aspirin 81 mg daily, atorvastatin 40 mg daily, Lopressor 25 mg daily, torsemide 20 mg daily, Coumadin 1 mg daily and amlodipine 10 mg daily. REVIEW OF SYSTEMS At the time of my exam: CONSTITUTIONAL: Denies fever or chills. CARDIOVASCULAR: Denies chest pain, shortness of breath, orthopnea, PND or palpit ations. RESPIRATORY: Denies cough. GASTROINTESTINAL: Denies abdominal pain, diarrhea, constipation, nausea or vomiting. MUSCULOSKELETAL: Denies myalgias. NEUROLOGIC: Denies numbness, tingling or weakness. ENDOCRINE: Denies fatigue, weight change, polydipsia or polyurina. GENITOURINARY: Denies burning, hematuria or urgency with micturation. HEMATOLOGIC: Denies history of anemia or bleeding. PHYSICAL EXAMINATION Blood pressure 127/67 heart rate 68 afebrile and maintaining oxygen saturation on room air. CONSTITUTIONAL: No apparent distress. HEENT: Head is normocephalic. Pupils are equal, round. Sclerae anicteric. Mucous membranes of the mouth are moist. No JVD. No carotid bruit. CHEST EXAMINATION: Lungs are clear to auscultation. No chest wall tenderness is noted on palpation or with deep breathing. Diminished bilaterally. HEART EXAMINATION: Irregular rate and rhythm. S1, S2 heard. Systolic ejection murmur at the left sternal border, no gallops or rub. ABDOMEN: Soft, nontender. Positive bowel sounds. EXTREMITIES: 2+ peripheral pulses, no lower extremity edema and no calf tenderness. NEUROLOGIC EXAMINATION: Patient is awake, alert and oriented x3. ASSESSMENT Dyspnea secondary to possible pneumonia, clinically he is euvolemic Chronic persistent atrial fibrillation on coumadin Coronary artery disease status post prior revascularization Permanent pacemaker implantation secondary to sick sinus syndrome Pulmonary hypertension Dyslipidemia Hypertension Chronic kidney disease History of ASD status post closure PLAN Clinically the patient is euvolemic but continues to feel dyspneic with no improvement since admission despite being added on IV diuretics. Discussed with pulmonary care team the possibility of pneumonia. Check pro-calcitonin. Echocardiogram has been ordered and will be reviewed. Thank you kindly for this consultation. Nurse Practitioner note has been reviewed, I agree with a documented findings and plan of care. Patient was seen and examined. Past Medical History Past Medical History: Atrial Fibrillation, Coronary Artery Disease (CAD), COPD, Hyperlipidemia, Hypertension, Myocardial Infarction (NE), Osteoarthritis (OA), Pneumonia, Prostate Disorder, Respiratory Disorder, Sleep Apnea/CPAP/BIPAP Additional Past Medical History / Comment(s): CAD, Afib, SSS with pacer, JOSE JUAN with Cpap, secondary pulmonary HTN with PAP 65, elevated PSA, gout great toes Last Myocardial Infarction Date:: 2001 History of Any Multi-Drug Resistant Organisms: None Reported Past Surgical History: Appendectomy, Heart Catheterization, Heart Catheterization With Stent, Orthopedic Surgery, Pacemaker Additional Past Surgical History / Comment(s): PCI with stents, pacemaker, percutaneous closure ASD/PFO, AVIVA, colonoscopy with bening polyps, ORIF R elbow and wrist as child. Past Anesthesia/Blood Transfusion Reactions: Motion Sickness Date of Last Stent Placement:: 10/2012 Type of Cardiac Device: Permanent Pacemaker Device Placement Date:: 2016 Past Psychological History: No Psychological Hx Reported Smoking Status: Former smoker Past Alcohol Use History: None Reported Past Drug Use History: None Reported - Past Family History Father Additional Family Medical History / Comment(s): Father had heart problems. Mother Family Medical History: AFIB Additional Family Medical History / Comment(s): Mother had heart problems. Sister(s) Family Medical History: Cancer Additional Family Medical History / Comment(s): Breast cancer Medications and Allergies Home Medications Medication Instructions Recorded Confirmed Type Ascorbic Acid [Vitamin C] 1,000 mg PO DAILY 07/21/14 01/18/20 History Atorvastatin [Lipitor] 40 mg PO HS 07/21/14 01/18/20 History Warfarin [Coumadin] 1 mg PO HS 07/21/14 01/18/20 History allopurinoL [Zyloprim] 300 mg PO DAILY 07/21/14 01/18/20 History Multivitamins, Thera [Multivitamin 1 tab PO DAILY 05/04/16 01/18/20 History (formulary)] amLODIPine BESYLATE [Norvasc] 10 mg PO HS #30 tablet 05/06/16 01/18/20 Rx Aspirin EC [Ecotrin Low Dose] 81 mg PO HS 08/22/18 01/18/20 History Loratadine [Claritin] 10 mg PO DAILY 08/22/18 01/18/20 History Potassium Chloride ER [K-Dur 20] 20 meq PO DAILY 09/22/18 01/18/20 History Metoprolol Tartrate [Lopressor] 25 mg PO DAILY 04/20/19 01/18/20 History Ferrous Sulfate [Feosol] 325 mg PO DAILY 01/18/20 01/18/20 History Folate 40 mg PO DAILY 01/18/20 01/18/20 History Torsemide [Demadex] 20 mg PO DAILY 01/18/20 01/18/20 History Allergies Allergy/AdvReac Type Severity Reaction Status Date / Time No Known Allergies Allergy Verified 01/18/20 10:28 Physical Exam Vitals: Vital Signs Temp Pulse Pulse Resp BP BP Pulse Ox 01/19/20 08:00 68 16 01/19/20 07:00 98.2 F 68 16 127/67 91 L 01/19/20 04:10 18 01/19/20 02:40 18 01/19/20 02:30 97.7 F 83 147/73 93 L 01/19/20 00:30 18 01/18/20 19:50 18 01/18/20 19:05 97.6 F 79 161/69 93 L 01/18/20 15:48 70 18 148/91 100 01/18/20 11:17 60 16 138/84 94 L Intake and Output 01/18/20 01/19/20 01/19/20 22:59 06:59 14:59 Intake Total 220 Balance 220 Intake: Oral 220 Other: Voiding Method Toilet Toilet # Voids 2 2 Results 01/19/20 06:33 01/18/20 09:06 Cardiac Enzymes 01/18/20 Range/Units 09:06 AST 33 (17-59) U/L CBC 01/19/20 Range/Units 06:33 WBC 6.4 (3.8-10.6) k/uL RBC 3.73 L (4.30-5.90) m/uL Hgb 10.8 L (13.0-17.5) gm/dL Hct 34.3 L (39.0-53.0) % Plt Count 125 L (150-450) k/uL Comprehensive Metabolic Panel 01/18/20 Range/Units 09:06 Sodium 142 (137-145) mmol/L Potassium 3.7 (3.5-5.1) mmol/L Chloride 106 (98-107) mmol/L Carbon Dioxide 24 (22-30) mmol/L BUN 41 H (9-20) mg/dL Creatinine 1.62 H (0.66-1.25) mg/dL Glucose 133 H (74-99) mg/dL Calcium 9.0 (8.4-10.2) mg/dL AST 33 (17-59) U/L ALT 17 (4-49) U/L Alkaline Phosphatase 113 (38-126) U/L Total Protein 6.7 (6.3-8.2) g/dL Albumin 4.1 (3.5-5.0) g/dL Current Medications Generic Name Dose Route Start Last Admin Trade Name Freq PRN Reason Stop Dose Admin Allopurinol 300 mg 01/18/20 16:00 01/19/20 08:38 Allopurinol 300 Mg Tab PO 300 mg DAILY PHIL Administration Amlodipine Besylate 10 mg 01/18/20 21:00 01/18/20 22:03 Amlodipine 10 Mg Tab PO 10 mg HS PHIL Administration Ascorbic Acid 1,000 mg 01/19/20 09:00 01/19/20 08:37 Ascorbic Acid 500 Mg Tab PO 1,000 mg DAILY PHIL Administration Aspirin 81 mg 01/18/20 21:00 01/18/20 22:03 Aspirin 81 Mg PO 81 mg HS PHIL Administration Atorvastatin Calcium 40 mg 01/18/20 21:00 01/18/20 22:03 Atorvastatin 40 Mg Tab PO 40 mg HS PHIL Administration Ferrous Sulfate 325 mg 01/19/20 09:00 01/19/20 08:38 Ferrous Sulfate 325 Mg Tab PO 325 mg DAILY PHIL Administration Furosemide 40 mg 01/18/20 21:00 01/19/20 08:38 Furosemide 10 Mg/Ml 4 Ml Vial IV 40 mg Q12HR PHIL Administration Sodium Chloride 1,000 mls @ 10 mls/hr 01/18/20 11:16 01/18/20 12:25 Saline 0.9% IV 01/19/20 11:15 75 mls/hr .Q24H ONE Administration Metoprolol Tartrate 25 mg 01/18/20 16:00 01/19/20 08:38 Metoprolol Tartrate 25 Mg Tab PO 25 mg DAILY PHIL Administration Multivitamins 1 each 01/19/20 09:00 01/19/20 08:38 Multivitamins, Thera 1 Each Tab PO 1 each DAILY PHIL Administration Potassium Chloride 20 meq 01/18/20 17:30 01/19/20 08:38 Potassium Chloride Er 20 Meq Tab.Er PO 20 meq DAILY PHIL Administration Intake and Output 01/18/20 01/19/20 01/19/20 22:59 06:59 14:59 Intake Total 220 Balance 220 Intake: Oral 220 Other: Voiding Method Toilet Toilet # Voids 2 2 01/19/20 06:33 01/18/20 09:06
[2020-01-19 10:26] LABS: INR 2.17 (0.90-1.11); Prothrombin Time 22.5 sec (9.9-11.9)
[2020-01-19 10:38] LABS: African American GFR (CKD) 46.8 (60.0-200.0); Albumin 3.8 g/dL (3.80-4.90); Albumin/Globulin Ratio 2.24 (1.60-3.17); Anion Gap 13.1 mmol/L (4.00-12.00); BUN/Creat Ratio 23.13 Ratio (12.00-20.00); Calcium 8.5 mg/dL (8.7-10.3); Carbon Dioxide 24.9 mmol/L (21.6-31.8); Globulin 1.7 g/dL (1.6-3.3); Non-African American GFR(CKD) 40.4 (60.0-200.0); Potassium 3.6 mmol/L (3.5-5.5); Total Bilirubin 1.1 mg/dL (0.2-1.2); Total Protein 5.5 g/dL (6.2-8.2)
--- NOTE | 2020-01-19 12:19 | P.PN ---
Subjective Progress Note Date: 01/19/20 Principal diagnosis: Acute exacerbation of diastolic congestive heart failure 79-year-old white male patient of Dr. Brink past medical history of chronic A. fib on Coumadin, CAD with stents, sick sinus syndrome status post permanent pacemaker implantation, previous history of ASD status post percutaneous closure, COPD, hypertension, hyperlipidemia previous history of pneumonia, sleep apnea on CPAP, presented to the hospital on 01/18/2020 with complaints of worsening dyspnea over the course of the last 5 days, exertional dyspnea, patient has not been able to walk very far before he becomes very short of breath, vision has increased swelling in his bilateral lower extremities. He denied any fever or chills, no couplets or chest pain, no palpitations, no cough. No abdominal pain, no nausea vomiting or diarrhea. Chest x-ray shows persistent right lower lobe infiltrate and/or atelectasis with small effusions. Pulmonary vasculature is engorged but not overly congested. EKG showed A. fib with frequent PVCs. We will talk on was nonelevated at 7.8, hemoglobin was 11.3, INR therapeutic at 2.7, electrolytes were within normal limits, BUN is 41 and creatinine is 1.69, lactic acid is 1.3, proBNP 1500, troponin is less than 0.012. No fever or chills, room air pulse ox is 100%, blood pressure is 148/91, A. fib with controlled rate at 70. The patient is seen today 01/19/2020 in follow-up on the regular medical floor. He is awake and alert in no acute distress. No worsening shortness of breath, cough or congestion. Currently maintaining good O2 saturations in the low 90s on 2 L/m per nasal cannula. He is afebrile. Hemodynamically stable. White count 6.4. Hemoglobin 10.8. INR 2.17. Sodium 145. Potassium 3.6. Creatinine 1.60. He is continued on IV diuretics in the form of Lasix 40 mg every 12 hours. Chest x-ray reveals opacity of the right lower lobe. Pro-calcitonin pending. Objective - Vital Signs Vital signs: Vital Signs Temp 98.2 F 01/19/20 07:00 Pulse 68 01/19/20 08:00 Resp 16 01/19/20 08:00 BP 127/67 01/19/20 07:00 Pulse Ox 91 L 01/19/20 07:00 Intake & Output 01/18/20 01/19/20 01/19/20 18:59 06:59 18:59 Intake Total 220 Balance 220 Weight 74.843 kg Intake: Oral 220 Other: Voiding Method Toilet Toilet # Voids 2 - Exam GENERAL EXAM: Alert, very pleasant, 79-year-old male patient, currently on 2 L of oxygen with a pulse ox of 91%, comfortable in no apparent distress. HEAD: Normocephalic/atraumatic. EYES: Normal reaction of pupils, equal size. Conjunctiva pink, sclera white. NOSE: Clear with pink turbinates. THROAT: No erythema or exudates. NECK: No masses, no JVD, no thyroid enlargement, no adenopathy. CHEST: No chest wall deformity. Symmetrical expansion. LUNGS: Equal air entry with crackles in the left posterior base, diminished CVS: Irregular rate and rhythm, normal S1 and S2, no gallops, systolic murmur present,, no rubs ABDOMEN: Soft, nontender. No hepatosplenomegaly, normal bowel sounds, no guarding or rigidity. EXTREMITIES: No clubbing, no edema, no cyanosis, 2+ pulses and upper and lower extremities. MUSCULOSKELETAL: Muscle strength and tone normal. SPINE: No scoliosis or deformity SKIN: No rashes CENTRAL NERVOUS SYSTEM: No focal deficits, tone is normal in all 4 extremities. PSYCHIATRIC: Alert and oriented -3. Appropriate affect. Intact judgment and insight. - Labs CBC & Chem 7: 01/19/20 06:33 01/19/20 06:33 Labs: Abnormal Lab Results - Last 24 Hours (Table) 01/19/20 01/19/20 01/19/20 Range/Units 06:33 06:33 06:33 RBC 3.73 L (4.30-5.90) m/uL Hgb 10.8 L (13.0-17.5) gm/dL Hct 34.3 L (39.0-53.0) % RDW 16.2 H (11.5-15.5) % Plt Count 125 L (150-450) k/uL Lymphocytes # 0.6 L (1.0-4.8) k/uL PT 22.5 H (9.9-11.9) sec INR 2.17 H (0.90-1.11) Anion Gap 13.10 H (4.00-12.00) mmol/L BUN 37.0 H (9.0-27.0) mg/dL Creatinine 1.6 H (0.6-1.5) mg/dL Est GFR (CKD-EPI)AfAm 46.8 L (60.0-200.0) Est GFR (CKD-EPI)NonAf 40.4 L (60.0-200.0) BUN/Creatinine Ratio 23.13 H (12.00-20.00) Ratio Calcium 8.5 L (8.7-10.3) mg/dL Total Protein 5.5 L (6.2-8.2) g/dL Assessment and Plan Assessment: #1. Dyspnea related to acute exacerbation of CHF fluid overload and small pleural effusions, right lower lobe infiltrate/atelectasis #2. History of chronic A. fib on Coumadin #3. History of sick sinus syndrome status post permanent pacemaker insertion #4. Obstructive sleep apnea on CPAP therapy #5. Secondary pulmonary hypertension with a PA pressure of 65 mmHg #6. Chronic stage III kidney disease with possible history of obstructive uropathy #7. Gout #8. History of bilateral pleural effusions #9. Hyperlipidemia Plan: The patient was seen and evaluated by Dr. Kirkpatrick Hold the Coumadin today Plan for thoracentesis of the left lung tomorrow Await pro-calcitonin level We'll continue to follow I, the cosigning physician, performed a history & physical examination of the patient. Lungs sounds with crackles in the left lung base. Maintaining good O2 saturations in the 90s on 2 L/m per nasal cannula. I discussed the assessment and plan of care with my nurse practitioner, Mable Castanon. I attest to the above note as dictated by her.
--- NOTE | 2020-01-19 12:30 | ECHOF ---
Referral Reason:CHF MEASUREMENTS -------- HEIGHT: 170.2 cm WEIGHT: 74.8 kg BP: 127/67 RVIDd: 3.5 cm (< 3.3) IVSd: 1.3 cm (0.6 - 1.1) LVIDd: 4.3 cm (3.9 - 5.3) LVPWd: 1.2 cm (0.6 - 1.1) IVSs: 1.9 cm LVIDs: 2.9 cm LVPWs: 1.9 cm LA Diam: 5.2 cm (2.7 - 3.8) Ao Diam: 3.6 cm (2.0 - 3.7) AV Cusp: 2.0 cm (1.5 - 2.6) MV EXCURSION: 15.618 mm (> 18.000) MV EF SLOPE: 124 mm/s (70 - 150) EPSS: 0.8 cm AR PHT: 821 ms RAP: 15.00 mmHg RVSP: 59.50 mmHg FINDINGS -------- Paced rhythm. This was a technically adequate study. The left ventricular size is normal. There is mild concentric left ventricular hypertrophy. Overa ll left ventricular systolic function is low-normal with, an EF between 50 - 55 %. The right ventricle is mildly enlarged. The left atrium is moderately dilated. The right atrium is mildly enlarged. Interatrial and interventricular septum intact. Hx of ASD closure There is mild aortic valve sclerosis. There is mild aortic regurgitation. The mitral valve is normal. The mitral valve leaflets are mildly thickened. Mild mitral regurgita tion is present. Severe tricuspid regurgitation present. There is severe pulmonary hypertension. The right ventric ular systolic pressure, as measured by Doppler, is 59.50mmHg. Moderate pulmonic regurgitation. The aortic root size is normal. The inferior vena cava is dilated with poor inspiratory collapse which is consistent with estimated r ight atrial pressure of 15 mmHg. There is no pericardial effusion. Pleural Effusion with Fibrin. CONCLUSIONS -------- 1. Paced rhythm. 2. This was a technically adequate study. 3. The left ventricular size is normal. 4. There is mild concentric left ventricular hypertrophy. 5. The right ventricle is mildly enlarged. 6. The left atrium is moderately dilated. 7. The right atrium is mildly enlarged. 8. Hx of ASD closure 9. There is mild aortic valve sclerosis. 10. There is mild aortic regurgitation. 11. The mitral valve is normal. 12. The mitral valve leaflets are mildly thickened. 13. Mild mitral regurgitation is present. 14. Severe tricuspid regurgitation present. 15. There is severe pulmonary hypertension. 16. The right ventricular systolic pressure, as measured by Doppler, is 59.50mmHg. 17. Moderate pulmonic regurgitation. 18. The inferior vena cava is dilated with poor inspiratory collapse which is consistent with estimat ed right atrial pressure of 15 mmHg. 19. There is no pericardial effusion. 20. Pleural Effusion with Fibrin. NET DEVELOPER: Anna Dennis RDCS
--- NOTE | 2020-01-19 14:00 | P.PN ---
Subjective Progress Note Date: 01/19/20 Von Mascorro is a 79-year-old male, who presented to [facility] emergency room with a chief complaint of worsening shortness of breath patient stated that he started having severe shortness of breath 5 days ago he was unable to walk a few steps without having to stop, he was evaluated in the emergency room, vital examination reveals a temperature of 98.3 pulse 77 respiration 18 blood pressure 136/77 pulse ox was 88% on room air, laboratory data were significant for mild anemia with hemoglobin of 11.3 elevated BUN and creatinine at 41 and 1.62. Chest x-ray revealed evidence of pulmonary congestion and right lower lobe infiltrate and small pleural effusion, patient was admitted to medical floor pulmonary consultation was requested. Patient had similar presentation in April 2019 he was admitted to the hospital at that time he had evidence of congestive heart failure, COPD e xacerbation, atrial fibrillation, acute on chronic kidney disease and small bilateral pleural effusion, patient was Eusebio eyes done discharged home, he has been doing well until the last few days. On review of systems patient is alert and oriented times is he in no apparent distress, he is complaining of shortness of breath otherwise he denies any complaints there is no fever or chills no headache or dizziness no chest pain he has occasional cough no palpitation no nausea or vomiting no abdominal pain no diarrhea no blood in the stools no burning with urination no frequency or urgency and no hematuria, no weakness or numbness in any of his extremities, no change in his vision speech or gait. On 01/19/2020 patient was seen and examined on the medical floor he is alert and oriented 3 in no apparent distress he is still complaining of shortness of breath otherwise he denies any complaint there is no fever or chills no headache or dizziness no chest pain no palpitation no cough no nausea or vomiting no abdominal pain no diarrhea and no urinary symptoms. Patient and his feel very strongly against using IV Lasix, they state that he went into acute renal failure last admission due to IV Lasix, they are requesting to have patient back on Demadex and to have a consult with Dr. Bailee rich. Objective - Vital Signs Vital signs: Vital Signs Temp 98.2 F 01/19/20 07:00 Pulse 68 01/19/20 08:00 Resp 16 01/19/20 08:00 BP 127/67 01/19/20 07:00 Pulse Ox 91 L 01/19/20 07:00 Intake & Output 01/18/20 01/19/20 01/19/20 18:59 06:59 18:59 Intake Total 220 Balance 220 Weight 74.843 kg Intake: Oral 220 Other: Voiding Method Toilet Toilet # Voids 2 - Exam In general patient is alert and oriented 3 in no apparent distress HEENT head normocephalic and atraumatic Neck is supple no JVD no goiter no lymphadenopathy Chest exam few scattered rhonchi bilaterally no wheezing Cardiac exam reveals irregular heart sounds S1 and S2, with 2/6 systolic murmur in the left sternal border no gallops no rubs Abdomen is soft nontender no organomegaly with normal bowel sounds Extremity exam reveals no edema no cyanosis or clubbing Neurological examination reveals no gross focal deficit - Labs CBC & Chem 7: 01/19/20 06:33 01/19/20 06:33 Labs: Abnormal Lab Results - Last 24 Hours (Table) 01/19/20 01/19/20 01/19/20 Range/Units 06:33 06:33 06:33 RBC 3.73 L (4.30-5.90) m/uL Hgb 10.8 L (13.0-17.5) gm/dL Hct 34.3 L (39.0-53.0) % RDW 16.2 H (11.5-15.5) % Plt Count 125 L (150-450) k/uL Lymphocytes # 0.6 L (1.0-4.8) k/uL PT 22.5 H (9.9-11.9) sec INR 2.17 H (0.90-1.11) Anion Gap 13.10 H (4.00-12.00) mmol/L BUN 37.0 H (9.0-27.0) mg/dL Creatinine 1.6 H (0.6-1.5) mg/dL Est GFR (CKD-EPI)AfAm 46.8 L (60.0-200.0) Est GFR (CKD-EPI)NonAf 40.4 L (60.0-200.0) BUN/Creatinine Ratio 23.13 H (12.00-20.00) Ratio Calcium 8.5 L (8.7-10.3) mg/dL Total Protein 5.5 L (6.2-8.2) g/dL Procalcitonin (0.02-0.09) ng/mL 01/19/20 Range/Units 06:33 RBC (4.30-5.90) m/uL Hgb (13.0-17.5) gm/dL Hct (39.0-53.0) % RDW (11.5-15.5) % Plt Count (150-450) k/uL Lymphocytes # (1.0-4.8) k/uL PT (9.9-11.9) sec INR (0.90-1.11) Anion Gap (4.00-12.00) mmol/L BUN (9.0-27.0) mg/dL Creatinine (0.6-1.5) mg/dL Est GFR (CKD-EPI)AfAm (60.0-200.0) Est GFR (CKD-EPI)NonAf (60.0-200.0) BUN/Creatinine Ratio (12.00-20.00) Ratio Calcium (8.7-10.3) mg/dL Total Protein (6.2-8.2) g/dL Procalcitonin 0.13 H (0.02-0.09) ng/mL Assessment and Plan Plan: 1. Worsening shortness of breath, likely related to acute congestive heart failure exacerbation, will check echocardiogram Will consult cardiology 2. Right lower lobe infiltrate with small pleural effusion pulmonary consultation was requested 3. Underlying history of chronic kidney disease, at this time will discontinue IV Lasix per patient request, resume home dose of oral Demadex, consult Dr. Michel director mortgage 4. Underlying history of atrial fibrillation maintained on Coumadin heart rate is well-controlled 5. Underlying history of obstructive sleep apnea maintained on CPAP at home 6. Underlying history of cardiac arrhythmia was previous history of permanent p acemaker placement. 7. Underlying history of hyperlipidemia 8. Underlying history of gout At this time patient is admitted to medical floor Echocardiogram was ordered Cardiology consultation and pulmonary consultation requested Repeat labs and chest x-ray in a.m. Hold Coumadin at this time in anticipation of any intervention.
[2020-01-19] MEDS: TORSEMIDE 20 MG TAB PO SCH (15:30)
[2020-01-19] MEDS: amLODIPine 10 MG TAB PO SCH (21:42)
[2020-01-19] MEDS: ASPIRIN 81 MG PO SCH (21:42)
[2020-01-19] MEDS: ATORVASTATIN 40 MG TAB PO SCH (21:42)
--- NOTE | 2020-01-20 06:56 | XR ---
EXAMINATION TYPE: XR chest 1V portable DATE OF EXAM: 01/20/2020 CLINICAL HISTORY: Difficulty breathing and left-sided pleural effusion progress study. TECHNIQUE: Single AP portable upright view of the chest is obtained. COMPARISON: Chest x-ray from one day earlier and older studies. CT chest August 24, 2018 FINDINGS: There is persistent cardiomegaly with single lead pacemaker and atherosclerotic aortic kno b. Central linear density corresponds to atrial septal defect repair device. There is persistent righ t greater than left bilateral pleural effusions and associated bibasilar acute atelectasis and/or inf iltrate. Upper lungs remain clear without pneumothorax. Osseous structures are intact. IMPRESSION: Persistent cardiomegaly with small to moderate size right greater than left pleural effus ions and associated bibasilar acute atelectasis and/or infiltrate noted. No significant change from o ne day earlier.
[2020-01-20] MEDS: METOPROLOL TARTRATE 25 MG TAB PO SCH (08:50)
[2020-01-20] MEDS: TORSEMIDE 20 MG TAB PO SCH ×2 (08:50→21:13)
[2020-01-20] MEDS: ASCORBIC ACID 500 MG TAB PO SCH (08:50)
[2020-01-20] MEDS: FERROUS SULFATE 325 MG TAB PO SCH (08:51)
[2020-01-20] MEDS: MULTIVITAMINS, THERA 1 EACH TAB PO SCH (08:51)
[2020-01-20] MEDS: allopurinoL 300 MG TAB PO SCH (08:51)
[2020-01-20] MEDS: POTASSIUM CHLORIDE ER 20 MEQ TAB.ER PO SCH ×3 (08:51→14:22)
[2020-01-20 09:26] LABS: INR 1.9 (<1.2); Prothrombin Time 18.2 sec (9.0-12.0)
[2020-01-20 09:29] LABS: ALT 14 U/L (4-49); AST 26 U/L (17-59); African American GFR (CKD) 48 (>60 ml/min/1.73 sqM); Albumin 3.8 g/dL (3.5-5.0); Albumin/Globulin Ratio 1.5; Alkaline Phosphatase 108 U/L (38-126); Anion Gap 9 mmol/L; Blood Urea Nitrogen 36 mg/dL (9-20); Calcium 8.7 mg/dL (8.4-10.2); Carbon Dioxide 26 mmol/L (22-30); Chloride 106 mmol/L (98-107); Globulin 2.5 g/dL; Glucose 196 mg/dL (74-99); Non-African American GFR(CKD) 41 (>60 ml/min/1.73 sqM); Potassium 3.3 mmol/L (3.5-5.1); Sodium 141 mmol/L (137-145); Total Protein 6.3 g/dL (6.3-8.2)
--- NOTE | 2020-01-20 10:52 | P.PN ---
Subjective Progress Note Date: 01/20/20 CHIEF COMPLAINT: CHF HISTORY OF PRESENT ILLNESS: Patient examined this morning at the bedside. He reports shortness of breath and states he just got back from the bathroom. He states he otherwise does not have shortness of breath at rest. He denies chest pain. Vital signs this morning are stable. Patient remains on 3 L nasal cannula with oxygen saturations greater than 92%. Echocardiogram completed yesterday reveals EF 50-55%, severe tricuspid regurgitation, severe pulmonary hypertension. Chest x-ray today reveals persistent cardiomegaly with small to moderate size right greater than left pleural effusions and associated bibasilar atelectasis or infiltrate. No significant change from 1 day earlier. PHYSICAL EXAM: VITAL SIGNS: Reviewed. GENERAL: Well-developed in no acute distress. NECK: Supple. No JVD or thyromegaly LUNGS: Respirations even and unlabored. Lungs essentially clear to auscultation bilaterally. HEART: Irregular rate and rhythm. S1 and S2 heard. Systolic murmur. EXTREMITIES: Normal range of motion. No clubbing or cyanosis. Peripheral pulses intact. No lower extremity edema ASSESSMENT: Dyspnea secondary to possible pneumonia, clinically he is euvolemic Chronic persistent atrial fibrillation on coumadin Coronary artery disease status post prior revascularization Permanent pacemaker implantation secondary to sick sinus syndrome Pulmonary hypertension Dyslipidemia Hypertension Chronic kidney disease History of ASD status post closure PLAN: Continue current cardiac medications Coumadin is on hold for possible thoracentesis with pulmonary Further recommendations pending Nurse practitioner note has been reviewed by physician. Signing provider agrees with the documented findings, assessment, and plan of care. Objective - Vital Signs Vital signs: Vital Signs Temp 98.9 F 01/20/20 07:00 Pulse 67 01/20/20 07:00 Resp 20 01/20/20 07:00 BP 145/65 01/20/20 07:00 Pulse Ox 92 L 01/20/20 08:32 Intake & Output 01/19/20 01/20/20 01/20/20 18:59 06:59 18:59 Intake Total 290 Balance 290 Intake: Intake, IV Titration 70 Amount Sodium Chloride 0.9% 1, 70 000 ml @ 10 mls/hr IV . Q24H ONE Rx#:[id number] Oral 220 Other: Voiding Method Toilet Toilet # Voids 3 - Labs CBC & Chem 7: 01/19/20 06:33 01/20/20 08:59 Labs: Abnormal Lab Results - Last 24 Hours (Table) 01/19/20 01/20/20 01/20/20 Range/Units 06:33 08:59 08:59 PT 18.2 H (9.0-12.0) sec INR 1.9 H (<1.2) Potassium 3.3 L (3.5-5.1) mmol/L BUN 36 H (9-20) mg/dL Creatinine 1.58 H (0.66-1.25) mg/dL Glucose 196 H (74-99) mg/dL Procalcitonin 0.13 H (0.02-0.09) ng/mL
--- NOTE | 2020-01-20 12:19 | US ---
EXAMINATION TYPE: US chest DATE OF EXAM: 01/20/2020 COMPARISON: Chest x-ray earlier today CLINICAL HISTORY: pleural effusion. TECHNIQUE: Targeted ultrasound of the posterior lower bilateral hemithoraces EXAM MEASUREMENTS: Right Pleural Effusion pocket size: 10.7 cm Right skin surface to fluid distance: 2.1 cm Left Pleural Effusion pocket size: 6.4 cm Left skin surface to fluid distance: 1.7 cm Right side marked for possible thoracentesis outside the dept. Left side NOT marked for possible thoracentesis outside the dept due to anterior lung tissue seen wit hin pocket. Pulmonologists are able to review the images in the patient?s EMR. IMPRESSIONS: Moderate to large right and small to moderate-sized left pleural effusions seen on image s saved. More peripheral atelectasis left lung noted on images saved.
--- NOTE | 2020-01-20 13:27 | P.PN ---
Subjective Progress Note Date: 01/20/20 79-year-old white male patient of Dr. Brink past medical history of chronic A. fib on Coumadin, CAD with stents, sick sinus syndrome status post permanent pacemaker implantation, previous history of ASD status post percutaneous closure, COPD, hypertension, hyperlipidemia previous history of pneumonia, sleep apnea on CPAP, presented to the hospital on 01/18/2020 with complaints of worsening dyspnea over the course of the last 5 days, exertional dyspnea, patient has not been able to walk very far before he becomes very short of breath, vision has increased swelling in his bilateral lower extremities. He denied any fever or chills, no couplets or chest pain, no palpitations, no cough. No abdominal pain, no nausea vomiting or diarrhea. Chest x-ray shows persistent right lower lobe infiltrate and/or atelectasis with small effusions. Pulmonary vasculature is engorged but not overly congested. EKG showed A. fib with frequent PVCs. We will talk on was nonelevated at 7.8, hemoglobin was 11.3 , INR therapeutic at 2.7, electrolytes were within normal limits, BUN is 41 and creatinine is 1.69, lactic acid is 1.3, proBNP 1500, troponin is less than 0.012. No fever or chills, room air pulse ox is 100%, blood pressure is 148/91, A. fib with controlled rate at 70. The patient is seen today 01/19/2020 in follow-up on the regular medical floor. He is awake and alert in no acute distress. No worsening shortness of breath, cough or congestion. Currently maintaining good O2 saturations in the low 90s on 2 L/m per nasal cannula. He is afebrile. Hemodynamically stable. White count 6.4. Hemoglobin 10.8. INR 2.17. Sodium 145. Potassium 3.6. Creatinine 1.60. He is continued on IV diuretics in the form of Lasix 40 mg every 12 hours. Chest x-ray reveals opacity of the right lower lobe. Pro-calcitonin pending. 2019, the patient is not having any significant complaints. Chest x-ray still showing a right-sided pleural effusion. Ultrasound marking of the chest was done and the patient was found to have small to moderate-sized right-sided pleural effusion and the markings were placed. the right-sided pleural effusion was estimated to be 10.7 cm in size. There is also a small left pleural effusion noted to be measuring about 6 x 4 cm in size.There is persistent cardio megaly and the patient currently is off and the correlation with INR is down to 1.9., and the plan is to proceed with a thoracentesis for tomorrow. The patient has no specific complaints for now. Is agreeable for the procedure. Coumadin remains on hold. Objective - Vital Signs Vital signs: Vital Signs Temp 98.9 F 01/20/20 07:00 Pulse 67 01/20/20 07:00 Resp 20 01/20/20 07:00 BP 145/65 01/20/20 07:00 Pulse Ox 92 L 01/20/20 08:32 Intake & Output 01/19/20 01/20/20 01/20/20 18:59 06:59 18:59 Intake Total 290 200 Balance 290 200 Intake: Intake, IV Titration 70 Amount Sodium Chloride 0.9% 1, 70 000 ml @ 10 mls/hr IV . Q24H ONE Rx#:[id number] Oral 220 200 Other: Voiding Method Toilet Toilet # Voids 3 2 - Exam GENERAL EXAM: Alert, very pleasant, 79-year-old male patient, currently on 2 L of oxygen with a pulse ox of 91%, comfortable in no apparent distress. HEAD: Normocephalic/atraumatic. EYES: Normal reaction of pupils, equal size. Conjunctiva pink, sclera white. NOSE: Clear with pink turbinates. THROAT: No erythema or exudates. NECK: No masses, no JVD, no thyroid enlargement, no adenopathy. CHEST: No chest wall deformity. Symmetrical expansion. LUNGS: Equal air entry with crackles in the left posterior base, diminished CVS: Irregular rate and rhythm, normal S1 and S2, no gallops, systolic murmur present,, no rubs ABDOMEN: Soft, nontender. No hepatosplenomegaly, normal bowel sounds, no guarding or rigidity. EXTREMITIES: No clubbing, no edema, no cyanosis, 2+ pulses and upper and lower extremities. MUSCULOSKELETAL: Muscle strength and tone normal. SPINE: No scoliosis or deformity SKIN: No rashes CENTRAL NERVOUS SYSTEM: No focal deficits, tone is normal in all 4 extremities. PSYCHIATRIC: Alert and oriented -3. Appropriate affect. Intact judgment and insight. - Labs CBC & Chem 7: 01/19/20 06:33 01/20/20 08:59 Labs: Abnormal Lab Results - Last 24 Hours (Table) 01/19/20 01/20/20 01/20/20 Range/Units 06:33 08:59 08:59 PT 18.2 H (9.0-12.0) sec INR 1.9 H (<1.2) Potassium 3.3 L (3.5-5.1) mmol/L BUN 36 H (9-20) mg/dL Creatinine 1.58 H (0.66-1.25) mg/dL Glucose 196 H (74-99) mg/dL Procalcitonin 0.13 H (0.02-0.09) ng/mL Assessment and Plan Plan: #1. Dyspnea related to acute exacerbation of CHF fluid overload and small pleural effusions, right more than left and ultrasound markings have been done #2. History of chronic A. fib on Coumadin #3. History of sick sinus syndrome status post permanent pacemaker insertion #4. Obstructive sleep apnea on CPAP therapy #5. Secondary pulmonary hypertension with a PA pressure of 65 mmHg #6. Chronic stage III kidney disease with possible history of obstructive uropathy #7. Gout #8. History of bilateral pleural effusions #9. Hyperlipidemia plan Keep code on hold, current INR is at 1.9 Thoracentesis of the right lung with done tomorrow renal function is stable focused on a slightly elevated based on his underlying renal function impairment. Otherwise the findings in the chest is probably due to CHF and the patient is essentially better pleural effusion. He is on Demadex 20 mg by mouth on a daily basis. We'll continue to follow. The plan is to do a thoracentesis tomorrow. Consent will be obtained.
--- NOTE | 2020-01-20 13:47 | P.PN ---
Subjective Progress Note Date: 01/20/20 Von Mascorro is a 79-year-old male, who presented to [facility] emergency room with a chief complaint of worsening shortness of breath patient stated that he started having severe shortness of breath 5 days ago he was unable to walk a few steps without having to stop, he was evaluated in the emergency room, vital examination reveals a temperature of 98.3 pulse 77 respiration 18 blood pressure 136/77 pulse ox was 88% on room air, laboratory data were significant for mild anemia with hemoglobin of 11.3 elevated BUN and creatinine at 41 and 1.62. Chest x-ray revealed evidence of pulmonary congestion and right lower lobe infiltrate and small pleural effusion, patient was admitted to medical floor pulmonary consultation was requested. Patient had similar presentation in April 2019 he was admitted to the hospital at that time he had evidence of congestive heart failure, COPD e xacerbation, atrial fibrillation, acute on chronic kidney disease and small bilateral pleural effusion, patient was Eusebio eyes done discharged home, he has been doing well until the last few days. On review of systems patient is alert and oriented times is he in no apparent distress, he is complaining of shortness of breath otherwise he denies any complaints there is no fever or chills no headache or dizziness no chest pain he has occasional cough no palpitation no nausea or vomiting no abdominal pain no diarrhea no blood in the stools no burning with urination no frequency or urgency and no hematuria, no weakness or numbness in any of his extremities, no change in his vision speech or gait. On 01/19/2020 patient was seen and examined on the medical floor he is alert and oriented 3 in no apparent distress he is still complaining of shortness of breath otherwise he denies any complaint there is no fever or chills no headache or dizziness no chest pain no palpitation no cough no nausea or vomiting no abdominal pain no diarrhea and no urinary symptoms. Patient and his feel very strongly against using IV Lasix, they state that he went into acute renal failure last admission due to IV Lasix, they are requesting to have patient back on Demadex and to have a consult with Dr. Bailee rich. On 01/20/2020 patient was seen and examined on the medical floor he is alert and oriented in no distress he is still complaining of shortness of breath otherwise he denies any complaints there is no fever or chills no headache or dizziness no chest pain no shortness of breath no cough no nausea or vomiting no abdominal pain no diarrhea no burning with urination no frequency or urgency and no hematuria Objective - Vital Signs Vital signs: Vital Signs Temp 98.9 F 01/20/20 07:00 Pulse 67 01/20/20 07:00 Resp 20 01/20/20 07:00 BP 145/65 01/20/20 07:00 Pulse Ox 92 L 01/20/20 08:32 Intake & Output 01/19/20 01/20/20 01/20/20 18:59 06:59 18:59 Intake Total 290 Balance 290 Intake: Intake, IV Titration 70 Amount Sodium Chloride 0.9% 1, 70 000 ml @ 10 mls/hr IV . Q24H ONE Rx#:[id number] Oral 220 Other: Voiding Method Toilet Toilet # Voids 3 - Exam In general patient is alert and oriented 3 in no apparent distress HEENT head normocephalic and atraumatic Neck is supple no JVD no goiter no lymphadenopathy Chest exam few scattered rhonchi bilaterally no wheezing Cardiac exam reveals irregular heart sounds S1 and S2, with 2/6 systolic murmur in the left sternal border no gallops no rubs Abdomen is soft nontender no organomegaly with normal bowel sounds Extremity exam reveals no edema no cyanosis or clubbing Neurological examination reveals no gross focal deficit - Labs CBC & Chem 7: 01/19/20 06:33 01/20/20 08:59 Labs: Abnormal Lab Results - Last 24 Hours (Table) 01/19/20 01/19/20 01/19/20 Range/Units 06:33 06:33 06:33 PT 22.5 H (9.9-11.9) sec INR 2.17 H (0.90-1.11) Potassium (3.5-5.1) mmol/L Anion Gap 13.10 H (4.00-12.00) mmol/L BUN 37.0 H (9.0-27.0) mg/dL Creatinine 1.6 H (0.6-1.5) mg/dL Est GFR (CKD-EPI)AfAm 46.8 L (60.0-200.0) Est GFR (CKD-EPI)NonAf 40.4 L (60.0-200.0) BUN/Creatinine Ratio 23.13 H (12.00-20.00) Ratio Glucose (74-99) mg/dL Calcium 8.5 L (8.7-10.3) mg/dL Total Protein 5.5 L (6.2-8.2) g/dL Procalcitonin 0.13 H (0.02-0.09) ng/mL 01/20/20 01/20/20 Range/Units 08:59 08:59 PT 18.2 H (9.9-11.9) sec INR 1.9 H (0.90-1.11) Potassium 3.3 L (3.5-5.1) mmol/L Anion Gap (4.00-12.00) mmol/L BUN 36 H (9.0-27.0) mg/dL Creatinine 1.58 H (0.6-1.5) mg/dL Est GFR (CKD-EPI)AfAm (60.0-200.0) Est GFR (CKD-EPI)NonAf (60.0-200.0) BUN/Creatinine Ratio (12.00-20.00) Ratio Glucose 196 H (74-99) mg/dL Calcium (8.7-10.3) mg/dL Total Protein (6.2-8.2) g/dL Procalcitonin (0.02-0.09) ng/mL Assessment and Plan Plan: 1. Worsening shortness of breath, likely related to acute congestive heart failure exacerbation, will check echocardiogram Will consult cardiology 2. Right lower lobe infiltrate with small pleural effusion pulmonary consultation was requested 3. Underlying history of chronic kidney disease, at this time will discontinue IV Lasix per patient request, resume home dose of oral Demadex, consult Dr. Michel genetic counsellor 4. Underlying history of atrial fibrillation maintained on Coumadin heart rate is well-controlled 5. Underlying history of obstructive sleep apnea maintained on CPAP at home 6. Underlying history of cardiac arrhythmia was previous history of permanent pacemaker placement. 7. Underlying history of hyperlipidemia 8. Underlying history of gout At this time patient is admitted to medical floor Echocardiogram was ordered Cardiology consultation and pulmonary consultation requested Repeat labs and chest x-ray in a.m. Hold Coumadin at this time in anticipation of any intervention.
--- NOTE | 2020-01-20 16:58 | CONS ---
CONSULTATION REASON FOR CONSULT: Renal failure. HISTORY OF PRESENT ILLNESS: Patient is a 79-year-old male with history of chronic kidney disease, CKD stage 3. Previous creatinine about 1.6-1.8 mg/dL secondary to nephrosclerosis, cardiorenal syndrome. The patient was admitted to the hospital with complaints of shortness of breath. He does have a history of chronic obstructive pulmonary disease. The patient denies any significant increase in his lower extremity edema. He denies any fevers or chills. No nausea, vomiting, abdominal pain or diarrhea. Chest x-ray on admission showed evidence of pulmonary vascular congestion and patient is currently being diuresed. Serum creatinine this admission was 1.6 for the last couple of days and today it is at 1.58. PAST MEDICAL HISTORY: Coronary artery disease, chronic atrial fibrillation, COPD, hyperlipidemia, hypertension, pneumonia, BPH, history of ND, osteoarthritis, obstructive sleep apnea, gout. PAST SURGICAL HISTORY: Appendectomy, cardiac catheterization, coronary stent placement, pacemaker placement, colonoscopies, AVIVA, percutaneous closure of ASD/PFO, ORIF of the right elbow and wrist during childhood. SOCIAL HISTORY: Patient is a former smoker. No history of drug abuse or alcohol abuse. MEDICATIONS: Medications prior to admission included vitamin C, Lipitor, Coumadin, Zyloprim, Norvasc, Claritin, aspirin, potassium, Lopressor, folate, Demadex. ALLERGIES: None. EXAMINATION: Patient is comfortable, awake, not in any acute distress. Alert, oriented x3. Blood pressure is 145/65, heart rate 67 per minute, he is afebrile. Examination of the heart S1, S2. Examination of the lungs, bilateral breath sounds are heard. Abdomen is soft, nontender. Examination of lower extremities shows no significant edema. PROCESSING MANAGER exam grossly intact. The patient does have decreased breath sounds on his right lung. LABS: Show sodium 141, potassium 3.3, chloride 106, BUN 36, serum creatinine 1.58, hemoglobin 10.8 g/dL. ASSESSMENT: 1. Chronic kidney disease stage 3 secondary to nephrosclerosis, cardiorenal syndrome. Renal function stable, creatinine staying at about 1.6 mg/dL. 2. Hypokalemia associated with diuretics, now improved. 3. Right pleural effusion, being considered for thoracentesis. 4. Volume overload with bilateral pleural effusions noted, change the Demadex to twice a day. 5. Chronic atrial fibrillation. PLAN: Increase Demadex to 20 mg b.i.d. for a couple of days. Thoracentesis as per Pulmonary. Replace potassium and follow up as outpatient. Thank you for this consultation. Will continue to follow the patient with you during his hospitalization. RICHARD / NATI: [id number] /
[2020-01-20] MEDS: ASPIRIN 81 MG PO SCH (21:13)
[2020-01-20] MEDS: amLODIPine 10 MG TAB PO SCH (21:13)
[2020-01-20] MEDS: ATORVASTATIN 40 MG TAB PO SCH (21:13)
[2020-01-21] MEDS: FERROUS SULFATE 325 MG TAB PO SCH (08:09)
[2020-01-21] MEDS: POTASSIUM CHLORIDE ER 20 MEQ TAB.ER PO SCH (08:09)
[2020-01-21] MEDS: TORSEMIDE 20 MG TAB PO SCH ×2 (08:09→20:54)
[2020-01-21] MEDS: METOPROLOL TARTRATE 25 MG TAB PO SCH (08:10)
[2020-01-21] MEDS: MULTIVITAMINS, THERA 1 EACH TAB PO SCH (08:10)
[2020-01-21] MEDS: allopurinoL 300 MG TAB PO SCH (08:10)
[2020-01-21] MEDS: ASCORBIC ACID 500 MG TAB PO SCH (08:10)
[2020-01-21 10:30] LABS: INR 1.6 (<1.2); Prothrombin Time 15.8 sec (9.0-12.0)
[2020-01-21 10:33] LABS: ALT 14 U/L (4-49); AST 29 U/L (17-59); African American GFR (CKD) 45 (>60 ml/min/1.73 sqM); Albumin/Globulin Ratio 1.5; Alkaline Phosphatase 111 U/L (38-126); Anion Gap 8 mmol/L; Blood Urea Nitrogen 36 mg/dL (9-20); Calcium 8.8 mg/dL (8.4-10.2); Carbon Dioxide 29 mmol/L (22-30); Chloride 104 mmol/L (98-107); Globulin 2.6 g/dL; Glucose 123 mg/dL (74-99); Non-African American GFR(CKD) 39 (>60 ml/min/1.73 sqM); Potassium 3.6 mmol/L (3.5-5.1); Sodium 141 mmol/L (137-145); Total Protein 6.6 g/dL (6.3-8.2)
--- NOTE | 2020-01-21 10:43 | P.PN ---
Subjective Progress Note Date: 01/21/20 Von Mascorro is a 79-year-old male, who presented to [facility] emergency room with a chief complaint of worsening shortness of breath patient stated that he started having severe shortness of breath 5 days ago he was unable to walk a few steps without having to stop, he was evaluated in the emergency room, vital examination reveals a temperature of 98.3 pulse 77 respiration 18 blood pressure 136/77 pulse ox was 88% on room air, laboratory data were significant for mild anemia with hemoglobin of 11.3 elevated BUN and creatinine at 41 and 1.62. Chest x-ray revealed evidence of pulmonary congestion and right lower lobe infiltrate and small pleural effusion, patient was admitted to medical floor pulmonary consultation was requested. Patient had similar presentation in April 2019 he was admitted to the hospital at that time he had evidence of congestive heart failure, COPD e xacerbation, atrial fibrillation, acute on chronic kidney disease and small bilateral pleural effusion, patient was Eusebio eyes done discharged home, he has been doing well until the last few days. On review of systems patient is alert and oriented times is he in no apparent distress, he is complaining of shortness of breath otherwise he denies any complaints there is no fever or chills no headache or dizziness no chest pain he has occasional cough no palpitation no nausea or vomiting no abdominal pain no diarrhea no blood in the stools no burning with urination no frequency or urgency and no hematuria, no weakness or numbness in any of his extremities, no change in his vision speech or gait. On 01/19/2020 patient was seen and examined on the medical floor he is alert and oriented 3 in no apparent distress he is still complaining of shortness of breath otherwise he denies any complaint there is no fever or chills no headache or dizziness no chest pain no palpitation no cough no nausea or vomiting no abdominal pain no diarrhea and no urinary symptoms. Patient and his feel very strongly against using IV Lasix, they state that he went into acute renal failure last admission due to IV Lasix, they are requesting to have patient back on Demadex and to have a consult with Dr. Bailee rich. On 01/20/2020 patient was seen and examined on the medical floor he is alert and oriented in no distress he is still complaining of shortness of breath otherwise he denies any complaints there is no fever or chills no headache or dizziness no chest pain no shortness of breath no cough no nausea or vomiting no abdominal pain no diarrhea no burning with urination no frequency or urgency and no hematuria. On 01/21/2020 patient was seen and examined on the medical floor he is alert and oriented 3 in no distress he is reporting some improvement in the shortness of breath otherwise he denies any complaints there is no fever or chills no headache or dizziness no chest pain no cough no nausea or vomiting no abdominal pain no diarrhea no blood in the stools no burning with urination no frequency or urgency and no hematuria, no numbness or weakness in any of the extremities and no change in speech vision or gait. Objective - Vital Signs Vital signs: Vital Signs Temp 98 F 01/21/20 07:27 Pulse 63 01/21/20 07:27 Resp 16 01/21/20 07:27 BP 147/67 01/21/20 07:27 Pulse Ox 91 L 01/21/20 07:27 Intake & Output 01/20/20 01/21/20 01/21/20 18:59 06:59 18:59 Intake Total 320 200 Balance 320 200 Intake: Oral 320 200 Other: # Voids 2 - Exam In general patient is alert and oriented 3 in no apparent distress HEENT head normocephalic and atraumatic Neck is supple no JVD no goiter no lymphadenopathy Chest exam few scattered rhonchi bilaterally no wheezing Cardiac exam reveals irregular heart sounds S1 and S2, with 2/6 systolic murmur in the left sternal border no gallops no rubs Abdomen is soft nontender no organomegaly with normal bowel sounds Extremity exam reveals no edema no cyanosis or clubbing Neurological examination reveals no gross focal deficit - Labs CBC & Chem 7: 01/19/20 06:33 01/21/20 10:03 Labs: Abnormal Lab Results - Last 24 Hours (Table) 01/20/20 01/20/20 Range/Units 08:59 08:59 PT 18.2 H (9.0-12.0) sec INR 1.9 H (<1.2) Potassium 3.3 L (3.5-5.1) mmol/L BUN 36 H (9-20) mg/dL Creatinine 1.58 H (0.66-1.25) mg/dL Glucose 196 H (74-99) mg/dL Assessment and Plan Plan: 1. Worsening shortness of breath, likely related to acute congestive heart fail ure exacerbation, will check echocardiogram Will consult cardiology 2. Right lower lobe infiltrate with small pleural effusion pulmonary consultation was requested 3. Underlying history of chronic kidney disease, at this time will discontinue IV Lasix per patient request, resume home dose of oral Demadex, consult Dr. Michel physical integration practitioner 4. Underlying history of atrial fibrillation maintained on Coumadin heart rate is well-controlled 5. Underlying history of obstructive sleep apnea maintained on CPAP at home 6. Underlying history of cardiac arrhythmia was previous history of permanent pacemaker placement. 7. Underlying history of hyperlipidemia 8. Underlying history of gout At this time patient is admitted to medical floor Echocardiogram was ordered Cardiology consultation and pulmonary consultation requested Repeat labs and chest x-ray in a.m. Hold Coumadin at this time in anticipation of any intervention.
--- NOTE | 2020-01-21 11:45 | P.PN ---
Subjective Progress Note Date: 01/21/20 CHIEF COMPLAINT: CHF HISTORY OF PRESENT ILLNESS: Patient examined this morning at the bedside. Patient currently denying shortness of breath. He denies chest pain. Patient remains on 2 L nasal cannula with oxygen saturations greater than 92%. Vital signs this morning are stable PHYSICAL EXAM: VITAL SIGNS: Reviewed. GENERAL: Well-developed in no acute distress. NECK: Supple. No JVD or thyromegaly LUNGS: Respirations even and unlabored. Lungs diminished. HEART: Irregular rate and rhythm. S1 and S2 heard. Systolic murmur. EXTREMITIES: Normal range of motion. No clubbing or cyanosis. Peripheral pulses intact. No lower extremity edema ASSESSMENT: Dyspnea likely secondary to pleural effusions and possible CHF exacerbation, pneumonia ruled out per pulmonary Bilateral pleural effusions Chronic persistent atrial fibrillation on coumadin Coronary artery disease status post prior revascularization Permanent pacemaker implantation secondary to sick sinus syndrome Pulmonary hypertension Dyslipidemia Hypertension Chronic kidney disease History of ASD status post closure PLAN: Continue current cardiac medications Continue to hold coumadin Patient is to undergo thoracentesis of right pleural effusion today with pulmonary Continue Demadex 20 mg twice a day. Monitor kidney function. Nephrology following Nurse practitioner note has been reviewed by physician. Signing provider agrees with the documented findings, assessment, and plan of care. Objective - Vital Signs Vital signs: Vital Signs Temp 98 F 01/21/20 07:27 Pulse 63 01/21/20 07:27 Resp 16 01/21/20 07:27 BP 147/67 01/21/20 07:27 Pulse Ox 93 L 01/21/20 08:30 Intake & Output 01/20/20 01/21/20 01/21/20 18:59 06:59 18:59 Intake Total 320 200 Output Total 1250 Balance 320 200 -1250 Intake: Oral 320 200 Output: Other 1250 Other: # Voids 2 - Labs CBC & Chem 7: 01/19/20 06:33 01/21/20 10:03 Labs: Abnormal Lab Results - Last 24 Hours (Table) 01/21/20 01/21/20 Range/Units 10:03 10:03 PT 15.8 H (9.0-12.0) sec INR 1.6 H (<1.2) BUN 36 H (9-20) mg/dL Creatinine 1.66 H (0.66-1.25) mg/dL Glucose 123 H (74-99) mg/dL
--- NOTE | 2020-01-21 11:56 | XR ---
EXAMINATION TYPE: XR chest 1V DATE OF EXAM: 01/21/2020 COMPARISON: Prior chest x-ray 01/20/2020 HISTORY: Status post thoracentesis TECHNIQUE: Single frontal view of the chest is obtained. FINDINGS: There is interval improved aeration at the right lung base. No evident pneumothorax. No ot her interval change. IMPRESSION: No evident complication status post thoracentesis.
--- NOTE | 2020-01-21 12:04 | P.PN ---
Subjective Progress Note Date: 01/21/20 Principal diagnosis: Acute exacerbation of diastolic congestive heart failure 79-year-old white male patient of Dr. Brink past medical history of chronic A. fib on Coumadin, CAD with stents, sick sinus syndrome status post permanent pacemaker implantation, previous history of ASD status post percutaneous closure, COPD, hypertension, hyperlipidemia previous history of pneumonia, sleep apnea on CPAP, presented to the hospital on 01/18/2020 with complaints of worsening dyspnea over the course of the last 5 days, exertional dyspnea, patient has not been able to walk very far before he becomes very short of breath, vision has increased swelling in his bilateral lower extremities. He denied any fever or chills, no couplets or chest pain, no palpitations, no cough. No abdominal pain, no nausea vomiting or diarrhea. Chest x-ray shows persistent right lower lobe infiltrate and/or atelectasis with small effusions. Pulmonary vasculature is engorged but not overly congested. EKG showed A. fib with frequent PVCs. We will talk on was nonelevated at 7.8, hemoglobin was 11.3, INR therapeutic at 2.7, electrolytes were within normal limits, BUN is 41 and creatinine is 1.69, lactic acid is 1.3, proBNP 1500, troponin is less than 0.012. No fever or chills, room air pulse ox is 100%, blood pressure is 148/91, A. fib with controlled rate at 70. The patient is seen today 01/19/2020 in follow-up on the regular medical floor. He is awake and alert in no acute distress. No worsening shortness of breath, cough or congestion. Currently maintaining good O2 saturations in the low 90s on 2 L/m per nasal cannula. He is afebrile. Hemodynamically stable. White count 6.4. Hemoglobin 10.8. INR 2.17. Sodium 145. Potassium 3.6. Creatinine 1.60. He is continued on IV diuretics in the form of Lasix 40 mg every 12 hours. Chest x-ray reveals opacity of the right lower lobe. Pro-calcitonin pending. 01/20/2020, the patient is not having any significant complaints. Chest x-ray still showing a right-sided pleural effusion. Ultrasound marking of the chest was done and the patient was found to have small to moderate-sized right-sided pleural effusion and the markings were placed. the right-sided pleural effusion was estimated to be 10.7 cm in size. There is also a small left pleural effusion noted to be measuring about 6 x 4 cm in size.There is persistent c ardiomegaly and the patient currently is off and the correlation with INR is down to 1.9., and the plan is to proceed with a thoracentesis for tomorrow. The patient has no specific complaints for now. Is agreeable for the procedure. Coumadin remains on hold. The patient is seen today 01/21/2020 in follow-up on the regular medical floor. He is awake and alert in no acute distress. He is maintaining good O2 saturations in the low 90s on 2 L/m per nasal cannula. She's afebrile. Hemodynamically stable. INR 1.6. Sodium 140 1. potassium 3.6. Creatinine 1.66. Ultrasound of the right chest revealed a pocket of 10.7 cm. Left side with 6.4 cm. Right-sided thoracentesis was performed today with 1.5 L removed. Fluid analysis and cytology pending. Follow-up chest x-ray revealed no evidence of pneumothorax. Objective - Vital Signs Vital signs: Vital Signs Temp 98 F 01/21/20 07:27 Pulse 63 01/21/20 07:27 Resp 16 01/21/20 07:27 BP 147/67 01/21/20 07:27 Pulse Ox 93 L 01/21/20 08:30 Intake & Output 01/20/20 01/21/20 01/21/20 18:59 06:59 18:59 Intake Total 320 200 Output Total 1250 Balance 320 200 -1250 Intake: Oral 320 200 Output: Other 1250 Other: # Voids 2 - Exam GENERAL EXAM: Alert, very pleasant, 79-year-old male patient, currently on 2 L of oxygen with a pulse ox of 93%, comfortable in no apparent distress. HEAD: Normocephalic/atraumatic. EYES: Normal reaction of pupils, equal size. Conjunctiva pink, sclera white. NOSE: Clear with pink turbinates. THROAT: No erythema or exudates. NECK: No masses, no JVD, no thyroid enlargement, no adenopathy. CHEST: No chest wall deformity. Symmetrical expansion. LUNGS: Equal air entry with crackles in the posterior bases right greater than left. CVS: Irregular rate and rhythm, normal S1 and S2, no gallops, systolic murmur present,, no rubs ABDOMEN: Soft, nontender. No hepatosplenomegaly, normal bowel sounds, no guarding or rigidity. EXTREMITIES: No clubbing, no edema, no cyanosis, 2+ pulses and upper and lower extremities. MUSCULOSKELETAL: Muscle strength and tone normal. SPINE: No scoliosis or deformity SKIN: No rashes CENTRAL NERVOUS SYSTEM: No focal deficits, tone is normal in all 4 extremities. PSYCHIATRIC: Alert and oriented -3. Appropriate affect. Intact judgment and insight. - Labs CBC & Chem 7: 01/19/20 06:33 01/21/20 10:03 Labs: Abnormal Lab Results - Last 24 Hours (Table) 01/21/20 01/21/20 Range/Units 10:03 10:03 PT 15.8 H (9.0-12.0) sec INR 1.6 H (<1.2) BUN 36 H (9-20) mg/dL Creatinine 1.66 H (0.66-1.25) mg/dL Glucose 123 H (74-99) mg/dL Assessment and Plan Assessment: #1. Dyspnea related to acute exacerbation of CHF fluid overload and bilateral pleural effusions right greater than left, right lower lobe infiltrate/atelectasis. Status post right-sided thoracentesis today 01/21/2020 with 1.5 L removed. Fluid analysis and cytology is pending. Pro-calcitonin 0.13. . #2. History of chronic A. fib on Coumadin, held for thoracentesis INR today 1.6 #3. History of sick sinus syndrome status post permanent pacemaker insertion #4. Obstructive sleep apnea on CPAP therapy #5. Secondary pulmonary hypertension with a PA pressure of 65 mmHg #6. Chronic stage III kidney disease with possible history of obstructive uropathy #7. Gout #8. History of bilateral pleural effusions #9. Hyperlipidemia Plan: The patient was seen and evaluated by Dr. Kirkpatrick Right-sided thoracentesis performed today 1.5 L of fluid removed Fluid analysis and cytology pending Continue Demadex Pro-calcitonin level 0.13. We'll continue to follow I, the cosigning physician, performed a history & physical examination of the patient. Lungs sounds with crackles in the posterior bases right greater than left. Maintaining good O2 saturations in the 90s on 2 L/m per nasal cannula. I discussed the assessment and plan of care with my nurse practitioner, Mable Castanon. I attest to the above note as dictated by her.
--- NOTE | 2020-01-21 12:58 | PN ---
PROGRESS NOTE Patient is seen for follow up for chronic kidney disease. His renal function has been fairly stable. Patient is maintained on Demadex. The dose of which was increased yesterday as he appears to be mildly hypervolemic. Patient has a right pleural effusion for which he will have a thoracenteses performed today. Patient denies any significant chest pains or shortness of breath. PHYSICAL EXAMINATION: Blood pressure was 147/67, heart rate 63 per minute. He is afebrile. Examination of the heart S1, S2. Examination of the lungs, bilateral breath sounds are heard. Decreased breath sounds on the right side. Abdomen is soft, nontender. Examination of lower extremities shows trace edema bilaterally. [employer]HEMI[employer] TE[employer]ER exam grossly intact. LAB: From today show sodium 141, potassium 3.6, chloride 104, BUN 36, serum creatinine 1.6. ASSESSMENT: 1. Chronic kidney disease NKF stage 3B. Baseline creatinine about 1.5-1.6 mg/dL secondary to nephrosclerosis. 2. Hypokalemia associated with diuretics, now improved. 3. Right pleural effusion, scheduled for thoracentesis today. 4. Mild volume overload with bilateral pleural effusions but large right pleural effusion. Demadex has been increased to twice a day. 5. Chronic atrial fibrillation with controlled ventricular response. PLAN: Continue with increased dose of Demadex. Monitor electrolytes. If renal function worsens, we will decrease it back to 20 mg once a day. Maintain followup as outpatient. MMODL / IJN: [id number] /
--- NOTE | 2020-01-21 13:03 | P.PCN ---
Date of Procedure: 01/21/20 Preoperative Diagnosis: Right-sided pleural effusion Postoperative Diagnosis: Right-sided pleural effusion Procedure(s) Performed: Thoracentesis Anesthesia: local Surgeon: Kell Kirkpatrick Estimated Blood Loss (ml): 0 Pathology: none sent Condition: stable Disposition: floor Operative Findings: Indication: Pleural effusion. A time-out was completed verifying correct patient, procedure, site, positioning, and implant (s) or special equipment if applicable. Ultrasound guidance was not used and appropriate fluid pocket was identified and marked. Patient was positioned, prepped and draped in usual sterile fashion. Lidocaine was used to anesthetize the area. A Thoracentesis catheter was introduced into the pleural space and fluid was removed. Blood loss was none. A chest x-ray was ordered to evaluate for pneumothorax. Total Fluid Removed: 1.5 L Color of Fluid: Turbid dark yellowish Fluid was sent for appropriate laboratory tests. Patient tolerated the procedure well and there were no complications.
[2020-01-21 14:27] LABS: Appearance,BF Hazy; Color,BF Yellow
[2020-01-21 14:28] LABS: Nucleated Cells, Body Fluid 230 /uL; RBC, Body Fluid 1125 /uL
[2020-01-21 14:30] LABS: Mononuclear WBC,Body Fluid 88 %; Polynuclear WBC,Body Fluid 12 %; Total Cells Counted,Body Fluid 100
[2020-01-21] MEDS ORDERED: WARFARIN 1 MG TAB PO ONE (18:00)
[2020-01-21 18:24] LABS: Glucose, BF Source Pleural Fluid; Glucose, Body Fluid 111 mg/dL; LDH, Body Fluid Source Pleural Fluid; Total Protein, Body Fluid 2000 mg/dL
[2020-01-21] MEDS: ATORVASTATIN 40 MG TAB PO SCH (20:54)
[2020-01-21] MEDS: ASPIRIN 81 MG PO SCH (20:54)
[2020-01-21] MEDS: amLODIPine 10 MG TAB PO SCH (20:54)
[2020-01-22 06:09] LABS: Anisocytosis Slight; Basophils # (A) 0.1 k/uL (0-0.2); Basophils % (A) 1 %; Eosinophils # (A) 0.4 k/uL (0-0.7); Eosinophils % (A) 5 %; HCT 35.2 % (39.0-53.0); HGB 11.2 gm/dL (13.0-17.5); Hypochromasia Slight; Lymphocytes # (A) 0.7 k/uL (1.0-4.8); Lymphocytes % (A) 9 %; MCH 29.1 pg (25.0-35.0); MCHC 31.8 g/dL (31.0-37.0); MCV 91.8 fL (80.0-100.0); Mean Platelet Volume 7.8; Monocytes # (A) 0.5 k/uL (0-1.0); Monocytes % (A) 7 %; Neutrophils # (A) 5.9 k/uL (1.3-7.7); Neutrophils % (A) 76 %; Platelet Count 149 k/uL (150-450); RBC 3.84 m/uL (4.30-5.90); RDW 16.4 % (11.5-15.5); WBC 7.7 k/uL (3.8-10.6)
[2020-01-22 06:57] LABS: INR 1.6 (<1.2); Prothrombin Time 15.4 sec (9.0-12.0)
[2020-01-22 07:22] VITALS: RESP 18
[2020-01-22] MEDS: METOPROLOL TARTRATE 25 MG TAB PO SCH (08:30)
[2020-01-22] MEDS: ASCORBIC ACID 500 MG TAB PO SCH (08:30)
[2020-01-22] MEDS: POTASSIUM CHLORIDE ER 20 MEQ TAB.ER PO SCH (08:30)
[2020-01-22] MEDS: TORSEMIDE 20 MG TAB PO SCH (08:31)
[2020-01-22] MEDS: FERROUS SULFATE 325 MG TAB PO SCH (08:31)
[2020-01-22] MEDS: allopurinoL 300 MG TAB PO SCH (08:31)
[2020-01-22] MEDS: MULTIVITAMINS, THERA 1 EACH TAB PO SCH (08:31)
[2020-01-22 10:06] LABS: Albumin 3.7 g/dL (3.80-4.90); Albumin/Globulin Ratio 2.06 (1.60-3.17); Anion Gap 9.3 mmol/L (4.00-12.00); Calcium 8.3 mg/dL (8.7-10.3); Carbon Dioxide 26.7 mmol/L (21.6-31.8); Globulin 1.8 g/dL (1.6-3.3); Non-African American GFR(CKD) 47.4 (60.0-200.0); Potassium 3.3 mmol/L (3.5-5.5); Total Bilirubin 1.1 mg/dL (0.3-1.2); Total Protein 5.5 g/dL (6.2-8.2)
--- NOTE | 2020-01-22 11:48 | P.PN ---
Subjective Progress Note Date: 01/22/20 Principal diagnosis: Acute exacerbation of diastolic CHF 79-year-old white male patient of Dr. Brink past medical history of chronic A. fib on Coumadin, CAD with stents, sick sinus syndrome status post permanent pacemaker implantation, previous history of ASD status post percutaneous closure, COPD, hypertension, hyperlipidemia previous history of pneumonia, sleep apnea on CPAP, presented to the hospital on 01/18/2020 with complaints of worsening dyspnea over the course of the last 5 days, exertional dyspnea, patient has not been able to walk very far before he becomes very short of breath, vision has increased swelling in his bilateral lower extremities. He denied any fever or chills, no couplets or chest pain, no palpitations, no cough. No abdominal pain, no nausea vomiting or diarrhea. Chest x-ray shows persistent right lower lobe infiltrate and/or atelectasis with small effusions. Pulmonary vasculature is engorged but not overly congested. EKG showed A. fib with frequent PVCs. We will talk on was nonelevated at 7.8, hemoglobin was 11.3, INR therapeutic at 2.7, electrolytes were within normal limits, BUN is 41 and creatinine is 1.69, lactic acid is 1.3, proBNP 1500, troponin is less than 0.012. No fever or chills, room air pulse ox is 100%, blood pressure is 148/91, A. fib with controlled rate at 70. The patient is seen today 01/19/2020 in follow-up on the regular medical floor. He is awake and alert in no acute distress. No worsening shortness of breath, cough or congestion. Currently maintaining good O2 saturations in the low 90s on 2 L/m per nasal cannula. He is afebrile. Hemodynamically stable. White count 6.4. Hemoglobin 10.8. INR 2.17. Sodium 145. Potassium 3.6. Creatinine 1.60. He is continued on IV diuretics in the form of Lasix 40 mg every 12 hours. Chest x-ray reveals opacity of the right lower lobe. Pro-calcitonin pending. 01/20/2020, the patient is not having any significant complaints. Chest x-ray still showing a right-sided pleural effusion. Ultrasound marking of the chest was done and the patient was found to have small to moderate-sized right-sided pleural effusion and the markings were placed. the right-sided pleural effusion was estimated to be 10.7 cm in size. There is also a small left pleural effusion noted to be measuring about 6 x 4 cm in size.There is persistent cardiomegaly and the patient currently is off and the correlation with INR is down to 1.9., and the plan is to proceed with a thoracentesis for tomorrow. The patient has no specific complaints for now. Is agreeable for the procedure. Coumadin remains on hold. The patient is seen today 01/21/2020 in follow-up on the regular medical floor. He is awake and alert in no acute distress. He is maintaining good O2 saturati ons in the low 90s on 2 L/m per nasal cannula. She's afebrile. Hemodynamically stable. INR 1.6. Sodium 140 1. potassium 3.6. Creatinine 1.66. Ultrasound of the right chest revealed a pocket of 10.7 cm. Left side with 6.4 cm. Right- sided thoracentesis was performed today with 1.5 L removed. Fluid analysis and cytology pending. Follow-up chest x-ray revealed no evidence of pneumothorax. On 01/22/2020 patient seen in follow-up on general medical surgical floor. He is doing well, breathing easier, currently on 2 L of oxygen has pulse ox at 100%, normal he is not oxygen dependent, we will obtain home oxygen, patient is status post right-sided thoracentesis on 01/21/2020 with removal of 1.5 L of pleural fluid. Pleural fluid analysis revealed transient dated fluid. Patient has had no fever or chills, no leukocytosis, his pro-calcitonin level was 0.13, and intermediate range, and suspicion for underlying pneumonia was low. He continues on Demadex 20 mg twice a day, his Coumadin has been restarted, today's labs have been reviewed showing INR of 1.6, white count of 7.7, hemoglobin 11.2, potassium 3.2, which was corrected per protocol, BUN of 35 and creatinine of 1.4, renal profile has improved, no lower extremity edema. Objective - Vital Signs Vital signs: Vital Signs Temp 97.7 F 01/22/20 07:00 Pulse 69 01/22/20 07:00 Resp 18 01/22/20 07:00 BP 148/70 01/22/20 07:00 Pulse Ox 94 L 01/22/20 07:00 Intake & Output 01/21/20 01/22/20 01/22/20 18:59 06:59 18:59 Intake Total 100 Output Total 1250 Balance -1250 100 Intake: Oral 100 Output: Other 1250 Other: # Voids 1 - Exam GENERAL EXAM: Alert, very pleasant, 79-year-old male patient, currently on 2 L of oxygen with a pulse ox of 100%, comfortable in no apparent distress. HEAD: Normocephalic/atraumatic. EYES: Normal reaction of pupils, equal size. Conjunctiva pink, sclera white. NOSE: Clear with pink turbinates. THROAT: No erythema or exudates. NECK: No masses, no JVD, no thyroid enlargement, no adenopathy. CHEST: No chest wall deformity. Symmetrical expansion. LUNGS: Equal air entry with crackles in the posterior bases right greater than left. CVS: Irregular rate and rhythm, normal S1 and S2, no gallops, systolic murmur present,, no rubs ABDOMEN: Soft, nontender. No hepatosplenomegaly, normal bowel sounds, no guarding or rigidity. EXTREMITIES: No clubbing, no edema, no cyanosis, 2+ pulses and upper and lower extremities. MUSCULOSKELETAL: Muscle strength and tone normal. SPINE: No scoliosis or deformity SKIN: No rashes CENTRAL NERVOUS SYSTEM: No focal deficits, tone is normal in all 4 extremities. PSYCHIATRIC: Alert and oriented -3. Appropriate affect. Intact judgment and insight. - Labs CBC & Chem 7: 01/22/20 05:24 01/22/20 05:24 Labs: Abnormal Lab Results - Last 24 Hours (Table) 01/22/20 01/22/20 01/22/20 Range/Units 05:24 05:24 05:24 RBC 3.84 L (4.30-5.90) m/uL Hgb 11.2 L (13.0-17.5) gm/dL Hct 35.2 L (39.0-53.0) % RDW 16.4 H (11.5-15.5) % Plt Count 149 L (150-450) k/uL Lymphocytes # 0.7 L (1.0-4.8) k/uL PT 15.4 H (9.0-12.0) sec INR 1.6 H (<1.2) Potassium 3.3 L (3.5-5.5) mmol/L BUN 35.0 H (9.0-27.0) mg/dL Est GFR (CKD-EPI)AfAm 55.0 L (60.0-200.0) Est GFR (CKD-EPI)NonAf 47.4 L (60.0-200.0) BUN/Creatinine Ratio 25.00 H (12.00-20.00) Ratio Calcium 8.3 L (8.7-10.3) mg/dL Total Protein 5.5 L (6.2-8.2) g/dL Albumin 3.70 L (3.80-4.90) g/dL Assessment and Plan Plan: Assessment: #1. Dyspnea related to acute exacerbation of CHF fluid overload and small pleural effusions, right greater than left, right lower lobe infiltrate likely related to atelectasis and fluid. Status post right-sided thoracentesis on 01/21/2020 with removal of 1.5 L which was transudative #2. History of chronic A. fib on Coumadin #3. History of sick sinus syndrome status post permanent pacemaker insertion #4. Obstructive sleep apnea on CPAP therapy #5. Secondary pulmonary hypertension with a PA pressure of 65 mmHg #6. Chronic stage III kidney disease with possible history of obstructive uropathy #7. Gout #8. History of bilateral pleural effusions #9. Hyperlipidemia Plan: Obtain a home oxygen evaluation, patient is breathing easier, pleural fluid analysis revealed transudate consistent with diastolic CHF exacerbation. Clinically stable, increase activity as tolerated, anticipate discharge home today, will need to see the patient in follow-up in 7-[address] Kirkpatrick. I performed a history & physical examination of the patient and discussed their management with my nurse practitioner, Yesy Hu. I reviewed the nurse practitioner's note and agree with the documented findings and plan of care. Lung sounds are positive for diminished breath sounds. The findings and the impression was discussed with the patient. I attest to the documentation by the nurse practitioner. Time with Patient: Less than 30
[2020-01-22] MEDS ORDERED: POTASSIUM CHLORIDE ER 20 MEQ TAB.ER PO STA ×2 (12:14→13:25)
--- NOTE | 2020-01-22 13:05 | P.PN ---
Subjective Progress Note Date: 01/22/20 CHIEF COMPLAINT: CHF HISTORY OF PRESENT ILLNESS: Patient examined at the bedside. He is status post right thoracentesis with removal of 1.5 L of fluid. Patient states his breathing has significantly improved. He denies chest pain. Patient remains on 2 L nasal cannula with oxygen saturations greater than 92%. Patient's Coumadin has been resumed. INR 1.6 today. PHYSICAL EXAM: VITAL SIGNS: Reviewed. GENERAL: Well-developed in no acute distress. NECK: Supple. No JVD or thyromegaly LUNGS: Respirations even and unlabored. Lungs diminished. HEART: Irregular rate and rhythm. S1 and S2 heard. Systolic murmur. EXTREMITIES: Normal range of motion. No clubbing or cyanosis. Peripheral pulses intact. No lower extremity edema ASSESSMENT: Dyspnea likely secondary to pleural effusions and possible CHF exacerbation, pneumonia ruled out per pulmonary Bilateral pleural effusions Chronic persistent atrial fibrillation on coumadin Coronary artery disease status post prior revascularization Permanent pacemaker implantation secondary to sick sinus syndrome Pulmonary hypertension Dyslipidemia Hypertension Chronic kidney disease History of ASD status post closure PLAN: Continue current cardiac medications Continue Demadex 20 mg twice a day. Monitor kidney function. Nephrology following Stable for discharge from a cardiac standpoint. Will defer to internal medicine. Patient to follow-up in the office with Dr. Diego Nurse practitioner note has been reviewed by physician. Signing provider agrees with the documented findings, assessment, and plan of care. Objective - Vital Signs Vital signs: Vital Signs Temp 97.7 F 01/22/20 07:00 Pulse 69 01/22/20 07:00 Resp 18 01/22/20 07:00 BP 148/70 01/22/20 07:00 Pulse Ox 94 L 01/22/20 07:00 Intake & Output 01/21/20 01/22/20 01/22/20 18:59 06:59 18:59 Intake Total 100 Output Total 1250 Balance -1250 100 Intake: Oral 100 Output: Other 1250 Other: # Voids 1 - Labs CBC & Chem 7: 01/22/20 05:24 01/22/20 05:24 Labs: Abnormal Lab Results - Last 24 Hours (Table) 01/22/20 01/22/20 01/22/20 Range/Units 05:24 05:24 05:24 RBC 3.84 L (4.30-5.90) m/uL Hgb 11.2 L (13.0-17.5) gm/dL Hct 35.2 L (39.0-53.0) % RDW 16.4 H (11.5-15.5) % Plt Count 149 L (150-450) k/uL Lymphocytes # 0.7 L (1.0-4.8) k/uL PT 15.4 H (9.0-12.0) sec INR 1.6 H (<1.2) Potassium 3.3 L (3.5-5.5) mmol/L BUN 35.0 H (9.0-27.0) mg/dL Est GFR (CKD-EPI)AfAm 55.0 L (60.0-200.0) Est GFR (CKD-EPI)NonAf 47.4 L (60.0-200.0) BUN/Creatinine Ratio 25.00 H (12.00-20.00) Ratio Calcium 8.3 L (8.7-10.3) mg/dL Total Protein 5.5 L (6.2-8.2) g/dL Albumin 3.70 L (3.80-4.90) g/dL
--- NOTE | 2020-01-22 13:26 | P.PN ---
Subjective patient is seen in follow-up for CKD-3. renal function stable. Maintained on Demadex 20 mg twice daily. Good urine output. No chest pain or shortness of breath. Vital signs are stable. General: The patient appeared well nourished and normally developed. HEENT: Head exam is unremarkable. Neck is without jugular venous distension. LUNGS: Lungs are clear to auscultation and percussion. Breath sounds decreased. HEART: Rate and Rhythm are regular. ABDOMEN: soft, nontender. EXTREMITITES: trace edema. Objective - Vital Signs Vital signs: Vital Signs Temp 97.7 F 01/22/20 07:00 Pulse 69 01/22/20 07:00 Resp 18 01/22/20 07:00 BP 148/70 01/22/20 07:00 Pulse Ox 94 L 01/22/20 07:00 Intake & Output 01/21/20 01/22/20 01/22/20 18:59 06:59 18:59 Intake Total 100 Output Total 1250 Balance -1250 100 Intake: Oral 100 Output: Other 1250 Other: # Voids 1 - Labs CBC & Chem 7: 01/22/20 05:24 01/22/20 05:24 Labs: Abnormal Lab Results - Last 24 Hours (Table) 01/22/20 01/22/20 01/22/20 Range/Units 05:24 05:24 05:24 RBC 3.84 L (4.30-5.90) m/uL Hgb 11.2 L (13.0-17.5) gm/dL Hct 35.2 L (39.0-53.0) % RDW 16.4 H (11.5-15.5) % Plt Count 149 L (150-450) k/uL Lymphocytes # 0.7 L (1.0-4.8) k/uL PT 15.4 H (9.0-12.0) sec INR 1.6 H (<1.2) Potassium 3.3 L (3.5-5.5) mmol/L BUN 35.0 H (9.0-27.0) mg/dL Est GFR (CKD-EPI)AfAm 55.0 L (60.0-200.0) Est GFR (CKD-EPI)NonAf 47.4 L (60.0-200.0) BUN/Creatinine Ratio 25.00 H (12.00-20.00) Ratio Calcium 8.3 L (8.7-10.3) mg/dL Total Protein 5.5 L (6.2-8.2) g/dL Albumin 3.70 L (3.80-4.90) g/dL Assessment and Plan Plan: assessment: 1. chronic kidney disease stage III with baseline creatinine 1.5-1.6 secondary to nephrosclerosis. GFR near baseline. 2. Hypokalemia secondary to diuresis. 3. Right pleural effusion status post thoracentesis with 1.5 L drained January 20. 4. Volume overload. 5. Chronic A. fib. Plan: Maintain Demadex 20 mg twice daily. replace potassium. additional 40 mEq today. continue with maintenance potassium supplementation. Repeat electrolytes including magnesium level in the morning.
[2020-01-22 14:37] VITALS: BP 131/76; PULSE 66; TEMP 97.6
[2020-01-22] MEDS ORDERED: WARFARIN 1 MG TAB PO ONE (18:00)
== END 2020-01-22 16:06 | disposition home or self-care (01) | DRG 291 ==
LOC: EC 08:28 → 4SSUR 11:16
PROVIDERS: ADMIT Internal Medicine; ATTEND Internal Medicine
PROC: 0W993ZZ Drainage of Right Pleural Cavity, Percutaneous Approach (ICD-10-PCS; principal; 2020-01-21)
DX: I13.0 Hypertensive heart and chronic kidney disease with heart failure and stage 1 through stage 4 chronic kidney disease, or unspecified chronic kidney disease (principal); I50.33 Acute on chronic diastolic (congestive) heart failure; I48.19 Other persistent atrial fibrillation; J91.8 Pleural effusion in other conditions classified elsewhere; J98.11 Atelectasis; E78.5 Hyperlipidemia, unspecified; E87.6 Hypokalemia; G47.33 Obstructive sleep apnea (adult) (pediatric); I07.1 Rheumatic tricuspid insufficiency; I25.10 Atherosclerotic heart disease of native coronary artery without angina pectoris; I25.2 Old myocardial infarction; I27.29 Other secondary pulmonary hypertension; I49.3 Ventricular premature depolarization; J44.9 Chronic obstructive pulmonary disease, unspecified; M10.9 Gout, unspecified; N18.3 Chronic kidney disease, stage 3 (moderate); N40.0 Benign prostatic hyperplasia without lower urinary tract symptoms; T50.2X5A Adverse effect of carbonic-anhydrase inhibitors, benzothiadiazides and other diuretics, initial encounter; Z79.01 Long term (current) use of anticoagulants; Z79.82 Long term (current) use of aspirin; Z79.899 Other long term (current) drug therapy; Z80.3 Family history of malignant neoplasm of breast; Z87.01 Personal history of pneumonia (recurrent); Z87.74 Personal history of (corrected) congenital malformations of heart and circulatory system; Z87.891 Personal history of nicotine dependence; Z95.0 Presence of cardiac pacemaker; Z95.5 Presence of coronary angioplasty implant and graft
CPT/HCPCS: 36415; 71045; 71046; 76604; 80053; 82945; 83605; 83615; 83735; 83880; 84145; 84157; 84484; 85025; 85610; 85730; 89050; 93005; 93306; 94760; 96360; 96361; 99285

== ENCOUNTER 2020-02-12 08:56 | Inpatient (IN) | payer MEDICARE, BC ==
--- NOTE | 2020-02-12 09:23 | ED ---
SOB HPI - General Chief Complaint: Shortness of Breath Stated Complaint: chest pain, SOB Time Seen by Provider: 02/12/20 09:06 Source: patient, RN notes reviewed Mode of arrival: wheelchair Limitations: physical limitation - History of Present Illness Initial Comments: This is a 79-year-old male with a recent hospitalization for right pleural effusion status post branch who presents today with complaints of wrist and worsening shortness of breath for last 3 days with exertional dyspnea he denies any overt chest pain fevers chills nausea vomiting sweats or other symptoms. He does have chronic atrial fibrillation no other modifying factors at this time MD Complaint: shortness of breath - Related Data Home Medications Medication Instructions Recorded Confirmed Ascorbic Acid [Vitamin C] 1,000 mg PO DAILY 07/21/14 02/12/20 Atorvastatin [Lipitor] 40 mg PO HS 07/21/14 02/12/20 Warfarin [Coumadin] 1 mg PO HS 07/21/14 02/12/20 allopurinoL [Zyloprim] 300 mg PO DAILY 07/21/14 02/12/20 Multivitamins, Thera [Multivitamin 1 tab PO DAILY 05/04/16 02/12/20 (formulary)] Aspirin EC [Ecotrin Low Dose] 81 mg PO HS 08/22/18 02/12/20 Loratadine [Claritin] 10 mg PO DAILY 08/22/18 02/12/20 Potassium Chloride ER [K-Dur 20] 20 meq PO DAILY 09/22/18 02/12/20 Metoprolol Tartrate [Lopressor] 25 mg PO DAILY 04/20/19 02/12/20 Ferrous Sulfate [Iron (65 MG 325 mg PO DAILY 01/18/20 02/12/20 Elemental)] Folate 40 mg PO DAILY 01/18/20 02/12/20 Previous Rx's Medication Instructions Recorded amLODIPine BESYLATE [Norvasc] 10 mg PO HS #30 tablet 05/06/16 Torsemide [Demadex] 20 mg PO BID tab 01/22/20 Allergies Allergy/AdvReac Type Severity Reaction Status Date / Time No Known Allergies Allergy Verified 02/12/20 09:54 Review of Systems ROS Statement: Those systems with pertinent positive or pertinent negative responses have been documented in the HPI. ROS Other: All systems not noted in ROS Statement are negative. Past Medical History Past Medical History: Atrial Fibrillation, Coronary Artery Disease (CAD), COPD, Hyperlipidemia, Hypertension, Myocardial Infarction ([place]), Osteoarthritis (OA), Pneumonia, Prostate Disorder, Respiratory Disorder, Sleep Apnea/CPAP/BIPAP Additional Past Medical History / Comment(s): CAD, Afib, SSS with pacer, JOSE JUAN with Cpap, secondary pulmonary HTN with PAP 65, elevated PSA, gout great toes Last Myocardial Infarction Date:: 2001 History of Any Multi-Drug Resistant Organisms: None Reported Past Surgical History: Appendectomy, Heart Catheterization, Heart Catheterization With Stent, Orthopedic Surgery, Pacemaker Additional Past Surgical History / Comment(s): PCI with stents, pacemaker, percutaneous closure ASD/PFO, AVIVA, colonoscopy with bening polyps, ORIF R elbow and wrist as child. Past Anesthesia/Blood Transfusion Reactions: Motion Sickness Date of Last Stent Placement:: 10/2012 Type of Cardiac Device: Permanent Pacemaker Device Placement Date:: 2016 Past Psychological History: No Psychological Hx Reported Smoking Status: Former smoker Past Alcohol Use History: None Reported Past Drug Use History: None Reported - Past Family History Father Additional Family Medical History / Comment(s): Father had heart problems. Mother Family Medical History: AFIB Additional Family Medical History / Comment(s): Mother had heart problems. Sister(s) Family Medical History: Cancer Additional Family Medical History / Comment(s): Breast cancer General Exam - General Exam Comments Initial Comments: This is a well-developed asthenic appearing male who is awake alert oriented 3 Limitations: physical limitation General appearance: alert, in no apparent distress Head exam: Present: atraumatic, normocephalic, normal inspection Eye exam: Present: normal appearance, PERRL, EOMI. Absent: scleral icterus, conjunctival injection, periorbital swelling ENT exam: Present: normal exam, mucous membranes moist Neck exam: Present: normal inspection, full ROM, other (No stridor JVD or bruits). Absent: tenderness, meningismus, lymphadenopathy Respiratory exam: Present: normal lung sounds bilaterally, rales (Slight crack les the bases with also the right base on percussion and diminished breath sounds the same location), decreased breath sounds. Absent: respiratory distress, wheezes, rhonchi, stridor Cardiovascular Exam: Present: irregular rhythm, normal heart sounds. Absent: systolic murmur, diastolic murmur, rubs, gallop, clicks GI/Abdominal exam: Present: soft, normal bowel sounds. Absent: distended, tenderness, guarding, rebound, rigid Extremities exam: Present: normal inspection, full ROM, normal capillary refill, pedal edema (Somewhat more on the left than the right). Absent: tenderness, joint swelling, calf tenderness Back exam: Present: normal inspection Neurological exam: Present: alert, oriented X3, CN II-XII intact Psychiatric exam: Present: normal affect, normal mood Skin exam: Present: warm, dry, intact, normal color. Absent: rash Course Vital Signs 02/12/20 02/12/20 02/12/20 09:01 09:20 09:30 Temperature 97.6 F Pulse Rate 69 59 L 60 Respiratory 22 18 18 Rate Blood Pressure 126/72 143/78 143/78 O2 Sat by Pulse 91 L 95 96 Oximetry 02/12/20 02/12/20 10:00 10:30 Temperature Pulse Rate 60 60 Respiratory 18 16 Rate Blood Pressure 139/60 142/68 O2 Sat by Pulse 95 94 L Oximetry Medical Decision Making - Medical Decision Making I did discuss the findings with patient family as well as with Dr. Diego and with Dr. Mondragon. She'll be admitted place on IV Demadex every 8 hours consultation also to pulmonary medicine. - Lab Data Result diagrams: 02/12/20 09:34 02/12/20 09:34 Lab Results 02/12/20 02/12/20 02/12/20 Range/Units 09:34 09:34 09:34 WBC 7.9 (3.8-10.6) k/uL RBC 3.89 L (4.30-5.90) m/uL Hgb 12.0 L (13.0-17.5) gm/dL Hct 36.6 L (39.0-53.0) % MCV 94.0 (80.0-100.0) fL MCH 30.9 (25.0-35.0) pg MCHC 32.9 (31.0-37.0) g/dL RDW 16.0 H (11.5-15.5) % Plt Count 141 L (150-450) k/uL Neutrophils % 83 % Lymphocytes % 8 % Monocytes % 5 % Eosinophils % 2 % Basophils % 1 % Neutrophils # 6.6 (1.3-7.7) k/uL Lymphocytes # 0.6 L (1.0-4.8) k/uL Monocytes # 0.4 (0-1.0) k/uL Eosinophils # 0.2 (0-0.7) k/uL Basophils # 0.0 (0-0.2) k/uL Hypochromasia Slight PT 20.6 H (9.0-12.0) sec INR 2.1 H (<1.2) APTT 35.6 H (22.0-30.0) sec Sodium 140 (137-145) mmol/L Potassium 3.8 (3.5-5.1) mmol/L Chloride 103 (98-107) mmol/L Carbon Dioxide 25 (22-30) mmol/L Anion Gap 12 mmol/L BUN 57 H (9-20) mg/dL Creatinine 1.92 H (0.66-1.25) mg/dL Est GFR (CKD-EPI)AfAm 38 (>60 ml/min/1.73 sqM) Est GFR (CKD-EPI)NonAf 32 (>60 ml/min/1.73 sqM) Glucose 173 H (74-99) mg/dL Plasma Lactic Acid Seamus (0.7-2.0) mmol/L Calcium 9.2 (8.4-10.2) mg/dL Magnesium 2.4 H (1.6-2.3) mg/dL Total Bilirubin 0.9 (0.2-1.3) mg/dL AST 35 (17-59) U/L ALT 16 (4-49) U/L Alkaline Phosphatase 128 H (38-126) U/L Creatine Kinase 72 (55-170) U/L Troponin I (0.000-0.034) ng/mL NT-Pro-B Natriuret Pep pg/mL Total Protein 7.3 (6.3-8.2) g/dL Albumin 4.3 (3.5-5.0) g/dL 02/12/20 02/12/20 02/12/20 Range/Units 09:34 09:34 09:34 WBC (3.8-10.6) k/uL RBC (4.30-5.90) m/uL Hgb (13.0-17.5) gm/dL Hct (39.0-53.0) % MCV (80.0-100.0) fL MCH (25.0-35.0) pg MCHC (31.0-37.0) g/dL RDW (11.5-15.5) % Plt Count (150-450) k/uL Neutrophils % % Lymphocytes % % Monocytes % % Eosinophils % % Basophils % % Neutrophils # (1.3-7.7) k/uL Lymphocytes # (1.0-4.8) k/uL Monocytes # (0-1.0) k/uL Eosinophils # (0-0.7) k/uL Basophils # (0-0.2) k/uL Hypochromasia PT (9.0-12.0) sec INR (<1.2) APTT (22.0-30.0) sec Sodium (137-145) mmol/L Potassium (3.5-5.1) mmol/L Chloride (98-107) mmol/L Carbon Dioxide (22-30) mmol/L Anion Gap mmol/L BUN (9-20) mg/dL Creatinine (0.66-1.25) mg/dL Est GFR (CKD-EPI)AfAm (>60 ml/min/1.73 sqM) Est GFR (CKD-EPI)NonAf (>60 ml/min/1.73 sqM) Glucose (74-99) mg/dL Plasma Lactic Acid Seamus 1.5 (0.7-2.0) mmol/L Calcium (8.4-10.2) mg/dL Magnesium (1.6-2.3) mg/dL Total Bilirubin (0.2-1.3) mg/dL AST (17-59) U/L ALT (4-49) U/L Alkaline Phosphatase (38-126) U/L Creatine Kinase (55-170) U/L Troponin I <0.012 (0.000-0.034) ng/mL NT-Pro-B Natriuret Pep 1790 pg/mL Total Protein (6.3-8.2) g/dL Albumin (3.5-5.0) g/dL - EKG Data -: EKG Interpreted by Me EKG Comments: Atrial fibrillation rate of 67 QRS 90 QT since QTC 428/452 left exodeviation low-voltage nonspecific anterior configuration - Radiology Data Radiology results: report reviewed (I did review the imaging and report evidence of increased vascular markings some evidence of cardiomegaly. Small right pleural effusion.), image reviewed Disposition Clinical Impression: Pulmonary hypertension, CAD (coronary artery disease), Peripheral edema, Recurrent right pleural effusion Disposition: ADMITTED IP TO THIS HOSP Condition: Fair Referrals: Christin Brink MD [Primary Care Provider] - 1-2 days
[2020-02-12 09:52] LABS: Basophils % (A) 1 %; Eosinophils # (A) 0.2 k/uL (0-0.7); Eosinophils % (A) 2 %; HCT 36.6 % (39.0-53.0); Hypochromasia Slight; Lymphocytes # (A) 0.6 k/uL (1.0-4.8); Lymphocytes % (A) 8 %; MCH 30.9 pg (25.0-35.0); MCHC 32.9 g/dL (31.0-37.0); Mean Platelet Volume 8.5; Monocytes # (A) 0.4 k/uL (0-1.0); Monocytes % (A) 5 %; Neutrophils # (A) 6.6 k/uL (1.3-7.7); Neutrophils % (A) 83 %; Platelet Count 141 k/uL (150-450); RBC 3.89 m/uL (4.30-5.90); WBC 7.9 k/uL (3.8-10.6)
--- NOTE | 2020-02-12 09:55 | XR ---
EXAMINATION TYPE: XR chest 2V DATE OF EXAM: 02/12/2020 COMPARISON: 01/21/2020 HISTORY: 79 year-old male shortness of breath, difficulty breathing TECHNIQUE: PA and lateral views FINDINGS: Left anterior chest wall pacemaker generator with right ventricular lead. PFO closure device is demon strated. Heart borderline enlarged. Mild perihilar interstitial density. Lateral view shows small eff usions. IMPRESSION: Cardiomegaly with perihilar and interstitial changes and small effusions. Correlate for mild CHF.
[2020-02-12 10:10] LABS: INR 2.1 (<1.2); Partial Thromboplastin Time 35.6 sec (22.0-30.0); Prothrombin Time 20.6 sec (9.0-12.0)
[2020-02-12 10:30] LABS: Albumin 4.3 g/dL (3.5-5.0); Calcium 9.2 mg/dL (8.4-10.2); Magnesium 2.4 mg/dL (1.6-2.3); Potassium 3.8 mmol/L (3.5-5.1); Total Bilirubin 0.9 mg/dL (0.2-1.3); Total Protein 7.3 g/dL (6.3-8.2)
[2020-02-12] MEDS ORDERED: NALOXONE 0.4 MG/ML 1 ML VIAL IV PRN (11:34)
--- NOTE | 2020-02-12 14:55 | P.CRDCN ---
History of Present Illness History of present illness: HISTORY OF PRESENTING ILLNESS This is a pleasant 79-year-old male past medical history significant for coronary artery disease status post PCI of RCA and circumflex, chronic persistent atrial fibrillation on long-term anticoagulation, sick sinus syndrome status post permanent pacemaker implantation, pulmonary hypertension, diastolic heart failure, history of PFO status post closure and hypertension. He had a recent admission to the hospital where he was treated for acute exacerbation of diastolic heart failure with pleural effusion and underwent a thoracentesis with 1-1/2 L removed. Pathology reveals reactive pleural mesothelial cells with scattered inflammatory cells, negative for metastatic carcinoma. He follows in the office with Dr. Diego. We have been asked to see in consultation for peripheral edema and pulmonary hypertension. He states since his discharge from the hospital 02/01 he has been mostly feeling pretty good. He has some shortness of breath intermittently but nothing significant. Until Wednesday night he noticed his breathing was labored when he was doing some work in his barn. Then again on Wednesday and Wednesday he noticed more frequent episodes of exertional dysnea. He is also complaining of a cough, sore throat, nasal drainage and congestion. He denies chest pain, dizziness or palpitations. He states he has been compliant with his medications and has not changed his diet recently. DIAGNOSTICS EKG reveals atrial fibrillation heart rate of 67, left axis deviation and poor R-wave progression. Chest xray essential changes and small pleural effusions. Laboratory reviewed, WBC 7.9, hemoglobin 12, platelets 141, INR 2.1, sodium 140, potassium 3.8, creatinine 1.92, cardiac enzymes negative 1 and NT proBNP 1790. Current cardiac medications include aspirin 81 mg daily, torsemide 20 mg twice a day, amlodipine 10 mg daily, Lopressor 25 mg daily, Coumadin 1 mg at bedtime and atorvastatin 40 mg at bedtime. Most recent echocardiogram obtained January 2020 reveals preserved LV systolic function with ejection fraction 50-55%, history of ASD closure, severe tricuspid regurgitation and severe pulmonary hypertension with an RVSP of 59 mmHg, moderate pulmonic regurgitation and pleural effusion noted with fibrin. He underwent cardiac catheterization in August 2018 revealing a patent stent of the RCA and circumflex, 50% disease in the ostial LAD and 50% disease in the circumflex artery. REVIEW OF SYSTEMS At the time of my exam: CONSTITUTIONAL: Denies fever or chills. CARDIOVASCULAR: Denies chest pain, shortness of breath, orthopnea, PND or palpitations. RESPIRATORY: Denies cough. GASTROINTESTINAL: Denies abdominal pain, diarrhea, constipation, nausea or vomiting. MUSCULOSKELETAL: Denies myalgias. NEUROLOGIC: Denies numbness, tingling or weakness. ENDOCRINE: Denies fatigue, weight change, polydipsia or polyurina. GENITOURINARY: Denies burning, hematuria or urgency with micturation. HEMATOLOGIC: Denies history of anemia or bleeding. PHYSICAL EXAMINATION Blood pressure 141/74 heart rate 67 afebrile and maintaining oxygen saturation on nasal cannula. CONSTITUTIONAL: No apparent distress. HEENT: Head is normocephalic. Pupils are equal, round. Sclerae anicteric. Mucous membranes of the mouth are moist. No JVD. No carotid bruit. CHEST EXAMINATION: Lungs are clear to auscultation. No chest wall tenderness is noted on palpation or with deep breathing. HEART EXAMINATION: Irregular rate and rhythm. S1, S2 heard. Systolic ejection murmur at the left sternal border and apex, no gallops or rub. ABDOMEN: Soft, nontender. Positive bowel sounds. EXTREMITIES: 2+ peripheral pulses, no lower extremity edema and no calf tender ness. NEUROLOGIC EXAMINATION: Patient is awake, alert and oriented x3. ASSESSMENT Exertional dyspnea Chronic diastolic heart failure, clinically euvolemic. Lungs are clear, no lower extremity swelling and normal NTproBNP Severe pulmonary hypertension Valvular heart disease, moderate-severe MR and moderate-sever TR on AVIVA 08/2018 Chronic persistent atrial fibrillation on long-term anticoagulation with Coumadin Sick sinus syndrome status post permanent pacemaker implantation Hypertension Dyslipidemia Coronary artery disease status post PCI PLAN We will trend his troponins and consider possible stress testing in the morning to assess for progression of CAD. He does not appear to be fluid overloaded or in heart failure currently. NPO after midnight. If progression of CAD is rule out consider further treatment and management of pulmonary hypertension as a source of his shortness of breath. Ongoing medical management and evaluation. Thank you kindly for this consultation. Nurse Practitioner note has been reviewed, I agree with a documented findings and plan of care. Patient was seen and examined. Past Medical History Past Medical History: Atrial Fibrillation, Coronary Artery Disease (CAD), Heart Failure, COPD, Hyperlipidemia, Hypertension, Myocardial Infarction ([place]), Osteoarthritis (OA), Pneumonia, Prostate Disorder, Renal Disease, Sleep Apnea/CPAP/BIPAP Additional Past Medical History / Comment(s): Pt recently admitted to [facility] on 01/18/20 with acute exacerbation CHF/R small pleural effusion with thoracentesis. Other hx: SSS with pacer, pulmonary HTN, JOSE JUAN with cpap, BPH, CKD, gout bilateral great toes, Last Myocardial Infarction Date:: 2001 History of Any Multi-Drug Resistant Organisms: None Reported Past Surgical History: Appendectomy, Heart Catheterization, Heart Catheterization With Stent, Orthopedic Surgery, Pacemaker Additional Past Surgical History / Comment(s): PCI with stents, pacemaker, percutaneous closure ASD/PFO, AVIVA, colonoscopy with bening polyps, R hand surgery for dupuytren's and injections to L hand for the same, ORIF R elbow and wrist as child. Past Anesthesia/Blood Transfusion Reactions: Motion Sickness Additional Past Anesthesia/Blood Transfusion Reaction / Comment(s): Pt has clausterphobia Date of Last Stent Placement:: 10/2012 Type of Cardiac Device: Permanent Pacemaker Device Placement Date:: 2016 Smoking Status: Former smoker - Past Family History Father Additional Family Medical History / Comment(s): Father had heart problems. Mother Family Medical History: AFIB Additional Family Medical History / Comment(s): Mother had heart problems. Sister(s) Family Medical History: Cancer Additional Family Medical History / Comment(s): One sister with breast cancer and another had a pacer. Medications and Allergies Home Medications Medication Instructions Recorded Confirmed Type Ascorbic Acid [Vitamin C] 1,000 mg PO DAILY 07/21/14 02/12/20 History Atorvastatin [Lipitor] 40 mg PO HS 07/21/14 02/12/20 History Warfarin [Coumadin] 1 mg PO HS 07/21/14 02/12/20 History allopurinoL [Zyloprim] 300 mg PO DAILY 07/21/14 02/12/20 History Multivitamins, Thera [Multivitamin 1 tab PO DAILY 05/04/16 02/12/20 History (formulary)] amLODIPine BESYLATE [Norvasc] 10 mg PO HS #30 tablet 05/06/16 02/12/20 Rx Aspirin EC [Ecotrin Low Dose] 81 mg PO HS 08/22/18 02/12/20 History Loratadine [Claritin] 10 mg PO DAILY 08/22/18 02/12/20 History Potassium Chloride ER [K-Dur 20] 20 meq PO DAILY 09/22/18 02/12/20 History Metoprolol Tartrate [Lopressor] 25 mg PO DAILY 04/20/19 02/12/20 History Ferrous Sulfate [Iron (65 MG 325 mg PO DAILY 01/18/20 02/12/20 History Elemental)] Folate 40 mg PO DAILY 01/18/20 02/12/20 History Torsemide [Demadex] 20 mg PO BID tab 01/22/20 02/12/20 Rx Allergies Allergy/AdvReac Type Severity Reaction Status Date / Time No Known Allergies Allergy Verified 02/12/20 09:54 Physical Exam Vitals: Vital Signs Temp Pulse Resp BP Pulse Ox 02/12/20 11:53 97.9 F 67 19 141/74 95 02/12/20 10:30 60 16 142/68 94 L 02/12/20 10:00 60 18 139/60 95 02/12/20 09:30 60 18 143/78 96 02/12/20 09:20 59 L 18 143/78 95 02/12/20 09:01 97.6 F 69 22 126/72 91 L Intake and Output 02/11/20 02/12/20 02/12/20 22:59 06:59 14:59 Other: Weight 72.575 kg Results 02/12/20 09:34 02/12/20 09:34 Cardiac Enzymes 02/12/20 02/12/20 Range/Units 09:34 09:34 AST 35 (17-59) U/L Troponin I <0.012 (0.000-0.034) ng/mL Coagulation 02/12/20 Range/Units 09:34 PT 20.6 H (9.0-12.0) sec APTT 35.6 H (22.0-30.0) sec CBC 02/12/20 Range/Units 09:34 WBC 7.9 (3.8-10.6) k/uL RBC 3.89 L (4.30-5.90) m/uL Hgb 12.0 L (13.0-17.5) gm/dL Hct 36.6 L (39.0-53.0) % Plt Count 141 L (150-450) k/uL Comprehensive Metabolic Panel 02/12/20 Range/Units 09:34 Sodium 140 (137-145) mmol/L Potassium 3.8 (3.5-5.1) mmol/L Chloride 103 (98-107) mmol/L Carbon Dioxide 25 (22-30) mmol/L BUN 57 H (9-20) mg/dL Creatinine 1.92 H (0.66-1.25) mg/dL Glucose 173 H (74-99) mg/dL Calcium 9.2 (8.4-10.2) mg/dL AST 35 (17-59) U/L ALT 16 (4-49) U/L Alkaline Phosphatase 128 H (38-126) U/L Total Protein 7.3 (6.3-8.2) g/dL Albumin 4.3 (3.5-5.0) g/dL Current Medications Generic Name Dose Route Start Last Admin Trade Name Freq PRN Reason Stop Dose Admin Allopurinol 300 mg 02/13/20 09:00 Allopurinol 300 Mg Tab PO DAILY [facility] Amlodipine Besylate 10 mg 02/12/20 21:00 Amlodipine 10 Mg Tab PO HS [facility] Ascorbic Acid 1,000 mg 02/13/20 09:00 Ascorbic Acid 500 Mg Tab PO DAILY [facility] Aspirin 81 mg 02/12/20 21:00 Aspirin 81 Mg PO HS [facility] Atorvastatin Calcium 40 mg 02/12/20 21:00 Atorvastatin 40 Mg Tab PO HS [facility] Ferrous Sulfate 325 mg 02/13/20 09:00 Ferrous Sulfate 325 Mg Tab PO DAILY [facility] Folic Acid 1 mg 02/13/20 09:00 Folic Acid 1 Mg Tab PO DAILY [facility] Loratadine 10 mg 02/13/20 09:00 Loratadine 10 Mg Tab PO DAILY [facility] Metoprolol Tartrate 25 mg 02/13/20 09:00 Metoprolol Tartrate 25 Mg Tab PO DAILY [facility] Miscellaneous Information 0 each 02/12/20 11:55 Warfarin Per Pharmacy MISCELLANE DIRECTED PRN PHARMACY DOSING WARFARIN Multivitamins 1 each 02/13/20 09:00 Multivitamins, Thera 1 Each Tab PO DAILY [facility] Naloxone HCl 0.2 mg 02/12/20 11:34 Naloxone 0.4 Mg/Ml 1 Ml Vial IV Q2M PRN Opioid Reversal Potassium Chloride 20 meq 02/13/20 09:00 Potassium Chloride Er 20 Meq Tab.Er PO DAILY [facility] Torsemide 20 mg 02/12/20 16:00 Torsemide 20 Mg Tab PO Q8HR [facility] Warfarin Sodium 1 mg 02/12/20 21:00 Warfarin 1 Mg Tab PO HS [facility] Protocol Intake and Output 02/11/20 02/12/20 02/12/20 22:59 06:59 14:59 Other: Weight 72.575 kg Patient Weight 02/13/20 06:59 Weight 72.575 kg 02/12/20 09:34 02/12/20 09:34
[2020-02-12] MEDS: TORSEMIDE 20 MG TAB PO SCH ×2 (17:36→23:03)
--- NOTE | 2020-02-12 19:03 | P.HPIM ---
History of Present Illness H&P Date: 02/12/20 Von Mascorro, is a 79-year-old male, who presented to [facility] emergency room with a chief complaint of worsening shortness of breath, patient had recent hospitalization with similar complaint at that time he had right sided pleural effusion and underwent thoracentesis, he was discharged home and was followed as outpatient by pulmonary and cardiology, his condition started to worsen again about 5 days ago when he started having severe shortness of breath and decided today to come to emergency room. Patient was evaluated in emergency room his temperature on presentation was 97.6 pulse 69 respiration 22 blood pressure 126/72 pulse ox 91% on room air, his white blood count was 7.9 hemoglobin 12.1 platelet count 141 INR was therapeutic at 2.1 BUN 57 creatinine 1.9 to glucose 173 alkaline phosphatase 128 and troponin level less than 0.12 EKG done in the emergency room revealed atrial fibrillation, chest x-ray revealed evidence of cardiomegaly with perihilar and interstitial changes and small effusions bilaterally suggestive of mild CHF. Patient was admitted to telemetry floor cardiology consultation and pulmonary consultation was requested. Patient has a known history of chronic atrial fibrillation maintained on Coumadin he also has a known history of coronary artery disease with previous history of angioplasty and stent placement in the past, he has known history of valvular heart disease and history of pulmonary hypertension, he has a known history of sick sinus syndrome status post pacemaker placement he has a known history of ASD status post percutaneous closure he has known history of hypertension, hyperlipidemia, history of COPD, history of obstructive sleep apnea maintained on CPAP, and history of previous episodes of pneumonia in the past. On review of systems patient is alert and oriented 3 in no apparent distress there is no fever or chills no headache or dizziness he is complaining of shortness of breath with any activity he has occasional cough with clear sputum production he has some episodes of pain and pressure in the left side of the chest that last for few seconds at that time otherwise he denies any complaints no nausea or vomiting no abdominal pain no diarrhea no blood in the stools no burning with urination no frequency or urgency and no hematuria. Past Medical History Past Medical History: Atrial Fibrillation, Coronary Artery Disease (CAD), Heart Failure, COPD, Hyperlipidemia, Hypertension, Myocardial Infarction (VT), Osteoarthritis (OA), Pneumonia, Prostate Disorder, Renal Disease, Sleep Apnea/CPAP/BIPAP Additional Past Medical History / Comment(s): Pt recently admitted to [facility] on 01/18/20 with acute exacerbation CHF/R small pleural effusion with thoracentesis. Other hx: SSS with pacer, pulmonary HTN, JOSE JUAN with cpap, BPH, CKD, gout bilateral great toes, Last Myocardial Infarction Date:: 2001 History of Any Multi-Drug Resistant Organisms: None Reported Past Surgical History: Appendectomy, Heart Catheterization, Heart Catheterization With Stent, Orthopedic Surgery, Pacemaker Additional Past Surgical History / Comment(s): PCI with stents, pacemaker, percutaneous closure ASD/PFO, AVIVA, colonoscopy with bening polyps, R hand surgery for dupuytren's and injections to L hand for the same, ORIF R elbow and wrist as child. Past Anesthesia/Blood Transfusion Reactions: Motion Sickness Additional Past Anesthesia/Blood Transfusion Reaction / Comment(s): Pt has clausterphobia Date of Last Stent Placement:: 10/2012 Type of Cardiac Device: Permanent Pacemaker Device Placement Date:: 2016 Smoking Status: Former smoker - Past Family History Father Additional Family Medical History / Comment(s): Father had heart problems. Mother Family Medical History: AFIB Additional Family Medical History / Comment(s): Mother had heart problems. Sister(s) Family Medical History: Cancer Additional Family Medical History / Comment(s): One sister with breast cancer and another had a pacer. Medications and Allergies Home Medications Medication Instructions Recorded Confirmed Type Ascorbic Acid [Vitamin C] 1,000 mg PO DAILY 07/21/14 02/12/20 History Atorvastatin [Lipitor] 40 mg PO HS 07/21/14 02/12/20 History Warfarin [Coumadin] 1 mg PO HS 07/21/14 02/12/20 History allopurinoL [Zyloprim] 300 mg PO DAILY 07/21/14 02/12/20 History Multivitamins, Thera [Multivitamin 1 tab PO DAILY 05/04/16 02/12/20 History (formulary)] amLODIPine BESYLATE [Norvasc] 10 mg PO HS #30 tablet 05/06/16 02/12/20 Rx Aspirin EC [Ecotrin Low Dose] 81 mg PO HS 08/22/18 02/12/20 History Loratadine [Claritin] 10 mg PO DAILY 08/22/18 02/12/20 History Potassium Chloride ER [K-Dur 20] 20 meq PO DAILY 09/22/18 02/12/20 History Metoprolol Tartrate [Lopressor] 25 mg PO DAILY 04/20/19 02/12/20 History Ferrous Sulfate [Iron (65 MG 325 mg PO DAILY 01/18/20 02/12/20 History Elemental)] Folate 40 mg PO DAILY 01/18/20 02/12/20 History Torsemide [Demadex] 20 mg PO BID tab 01/22/20 02/12/20 Rx Allergies Allergy/AdvReac Type Severity Reaction Status Date / Time No Known Allergies Allergy Verified 02/12/20 09:54 Physical Exam Vitals: Vital Signs Temp Pulse Pulse Resp BP BP Pulse Ox 02/12/20 16:10 97.5 F L 64 16 128/70 94 L 02/12/20 12:15 97.2 F L 62 16 143/60 92 L 02/12/20 11:53 97.9 F 67 19 141/74 95 02/12/20 10:30 60 16 142/68 94 L 02/12/20 10:00 60 18 139/60 95 02/12/20 09:30 60 18 143/78 96 02/12/20 09:20 59 L 18 143/78 95 02/12/20 09:01 97.6 F 69 22 126/72 91 L Intake and Output 02/12/20 02/12/20 02/12/20 06:59 14:59 22:59 Intake Total 300 240 Output Total 250 Balance 50 240 Intake: Oral 300 240 Output: Urine 250 Other: Weight 72.575 kg In general patient is alert and oriented 3 in no distress HEENT head normocephalic and atraumatic Neck is supple no JVD no goiter no lymphadenopathy Chest exam reveals a few scattered rhonchi no wheezing Cardiac exam reveals regular heart sounds no gallops no murmurs Abdomen is soft nontender no organomegaly with normal bowel sounds Extremity exam reveals no edema no cyanosis or clubbing Neurological examination reveals no gross focal deficit Results CBC & Chem 7: 02/12/20 09:34 02/12/20 09:34 Labs: Abnormal Lab Results - Last 24 Hours (Table) 02/12/20 02/12/20 02/12/20 Range/Units 09:34 09:34 09:34 RBC 3.89 L (4.30-5.90) m/uL Hgb 12.0 L (13.0-17.5) gm/dL Hct 36.6 L (39.0-53.0) % RDW 16.0 H (11.5-15.5) % Plt Count 141 L (150-450) k/uL Lymphocytes # 0.6 L (1.0-4.8) k/uL PT 20.6 H (9.0-12.0) sec INR 2.1 H (<1.2) APTT 35.6 H (22.0-30.0) sec BUN 57 H (9-20) mg/dL Creatinine 1.92 H (0.66-1.25) mg/dL Glucose 173 H (74-99) mg/dL Magnesium 2.4 H (1.6-2.3) mg/dL Alkaline Phosphatase 128 H (38-126) U/L Thrombosis Risk Factor Assmnt - Choose All That Apply Any of the Below Risk Factors Present?: Yes Each Factor Represents 1 point: Serious lung disease incl. pneumonia (< 1month), Swollen legs (current) Other Risk Factors: Yes Each Risk Factor Represents 3 Points: Age 75 years or older Other congenital or acquired thrombophilia - If yes, enter type in comment: No Thrombosis Risk Factor Assessment Total Risk Factor Score: 5 Thrombosis Risk Factor Assessment Level: High Risk Assessment and Plan Plan: 1. Worsening shortness of breath, cause is not entirely clear at this time, pulmonary consultation angina cardiology consultation are requested 2. Episodes of chest pain, no evidence of acute coronary syndrome at this time, troponin level so far are negative, possible stress test during this admission per cardiology. 3. Underlying history of chronic kidney disease 4. Underlying history of coronary artery disease 5. Underlying history of pulmonary hypertension 6. Underlying history of valvular heart disease, with moderate to severe mitral regurgitation and moderate to severe tricuspid regurgitation on AVIVA of August 2018 7. Underlying history of atrial fibrillation maintained on Coumadin INR is in therapeutic range At this time patient was seen and examined Home medications reviewed and reordered Consultation for pulmonary and cardiology were initiated Will follow closely
[2020-02-12] MEDS: ATORVASTATIN 40 MG TAB PO SCH (20:22)
[2020-02-12] MEDS: ASPIRIN 81 MG PO SCH (20:22)
[2020-02-12] MEDS: amLODIPine 10 MG TAB PO SCH (20:22)
[2020-02-12] MEDS ORDERED: WARFARIN 1 MG TAB PO SCH (21:00)
[2020-02-12] MEDS: POTASSIUM CHLORIDE ER 20 MEQ TAB.ER PO SCH (21:38)
[2020-02-13 08:00] LABS: Anisocytosis Slight; Basophils % (A) 0 %; Eosinophils # (A) 0.3 k/uL (0-0.7); Eosinophils % (A) 4 %; HCT 34.6 % (39.0-53.0); HGB 10.8 gm/dL (13.0-17.5); Hypochromasia Slight; Lymphocytes # (A) 0.7 k/uL (1.0-4.8); Lymphocytes % (A) 10 %; MCH 30.1 pg (25.0-35.0); MCHC 31.3 g/dL (31.0-37.0); MCV 96.2 fL (80.0-100.0); Mean Platelet Volume 8.1; Monocytes # (A) 0.4 k/uL (0-1.0); Monocytes % (A) 7 %; Neutrophils % (A) 77 %; Platelet Count 134 k/uL (150-450); RBC 3.59 m/uL (4.30-5.90); RDW 16.3 % (11.5-15.5); WBC 6.5 k/uL (3.8-10.6)
[2020-02-13 08:01] LABS: Albumin 3.7 g/dL (3.5-5.0); Calcium 8.8 mg/dL (8.4-10.2); Potassium 3.5 mmol/L (3.5-5.1); Total Bilirubin 0.9 mg/dL (0.2-1.3); Total Protein 6.4 g/dL (6.3-8.2)
[2020-02-13 08:03] LABS: INR 2.3 (<1.2); Prothrombin Time 22.6 sec (9.0-12.0)
[2020-02-13] MEDS ORDERED: POTASSIUM CHLORIDE ER 20 MEQ TAB.ER PO SCH (09:00)
[2020-02-13] MEDS ORDERED: fentaNYL (PF) 50 MCG/ML 2 ML AMP ONE (09:05)
[2020-02-13] MEDS: BENZOCAINE SPRAY 1 CAN TOPICAL ONE ×2 (09:24→09:31)
[2020-02-13] MEDS ORDERED: SODIUM CHLORIDE 0.9% 500 ML 500 ML IV ONE (09:24)
[2020-02-13] MEDS ORDERED: MIDAZOLAM 2 MG/2 ML VIAL IV ONE (09:49)
[2020-02-13] MEDS ORDERED: fentaNYL (PF) 50 MCG/ML 2 ML AMP IV ONE (09:49)
--- NOTE | 2020-02-13 09:54 | P.PN ---
Subjective HISTORY OF PRESENTING ILLNESS This is a pleasant 79-year-old male past medical history significant for coronary artery disease status post PCI of RCA and circumflex, chronic persistent atrial fibrillation on long-term anticoagulation, sick sinus syndrome status post permanent pacemaker implantation, pulmonary hypertension, diastolic heart failure, history of PFO status post closure and hypertension. He had a recent admission to the hospital where he was treated for acute exacerbation of diastolic heart failure with pleural effusion and underwent a thoracentesis with 1-1/2 L removed. Pathology reveals reactive pleural mesothelial cells with scattered inflammatory cells, negative for metastatic carcinoma. He follows in the office with Dr. Diego. Patient is seen and examined resting comfortably lying flat in bed in no acute distress. He states he feels no different from admission. He still has exertional shortness of breath. Blood pressure 126/63 heart rate 68 afebrile maintaining oxygen saturation on nasal cannula. He is requiring 4 L ofoxygen to maintain saturations. Telemetry data reviewed, cardiac enzymes negative 2. He has no chest pain, dizziness or palpitations. PHYSICAL EXAMINATION CONSTITUTIONAL: No apparent distress. HEENT: Head is normocephalic. Pupils are equal, round. Sclerae anicteric. Mucous membranes of the mouth are moist. No JVD. No carotid bruit. CHEST EXAMINATION: Lungs are clear to auscultation. No chest wall tenderness is noted on palpation or with deep breathing. HEART EXAMINATION: Irregular rate and rhythm. S1, S2 heard. Systolic ejection murmur at the left sternal border and apex, no gallops or rub. EXTREMITIES: 2+ peripheral pulses, no lower extremity edema and no calf te nderness. ASSESSMENT Exertional dyspnea Chronic diastolic heart failure, clinically euvolemic. Lungs are clear, no lower extremity swelling and normal NTproBNP Severe pulmonary hypertension Valvular heart disease, moderate-severe MR and moderate-sever TR on AVIVA 08/2018 Chronic persistent atrial fibrillation on long-term anticoagulation with Coumadin Sick sinus syndrome status post permanent pacemaker implantation Hypertension Dyslipidemia Coronary artery disease status post PCI PLAN Previous AVIVA was reviewed. Recommend repeating AVIVA to assess severity of mitral regurgitation. This may be the cause for his exertional shortness of breath. Further recommendations to follow. This has been explained to the patient in great detail and he is agreeable to move forward with the above-stated pro cedure. Nurse Practitioner note has been reviewed, I agree with a documented findings and plan of care. Patient was seen and examined. Objective - Vital Signs Vital signs: Vital Signs Temp 97.2 F L 02/13/20 08:00 Pulse 68 02/13/20 08:00 Resp 19 02/13/20 08:00 BP 126/63 02/13/20 08:00 Pulse Ox 93 L 02/13/20 08:00 Intake & Output 02/12/20 02/13/20 02/13/20 18:59 06:59 18:59 Intake Total 540 Output Total 250 1000 Balance 290 -1000 Weight 72.575 kg 71.7 kg Intake: Oral 540 Output: Urine 250 1000 Other: Voiding Method Toilet # Voids 1 - Labs CBC & Chem 7: 02/13/20 06:37 02/13/20 06:37 Labs: Abnormal Lab Results - Last 24 Hours (Table) 02/12/20 02/12/20 02/12/20 Range/Units 09:34 09:34 09:34 RBC 3.89 L (4.30-5.90) m/uL Hgb 12.0 L (13.0-17.5) gm/dL Hct 36.6 L (39.0-53.0) % RDW 16.0 H (11.5-15.5) % Plt Count 141 L (150-450) k/uL Lymphocytes # 0.6 L (1.0-4.8) k/uL PT 20.6 H (9.0-12.0) sec INR 2.1 H (<1.2) APTT 35.6 H (22.0-30.0) sec BUN 57 H (9-20) mg/dL Creatinine 1.92 H (0.66-1.25) mg/dL Glucose 173 H (74-99) mg/dL Magnesium 2.4 H (1.6-2.3) mg/dL Alkaline Phosphatase 128 H (38-126) U/L 02/13/20 02/13/20 02/13/20 Range/Units 06:37 06:37 06:37 RBC 3.59 L (4.30-5.90) m/uL Hgb 10.8 L (13.0-17.5) gm/dL Hct 34.6 L (39.0-53.0) % RDW 16.3 H (11.5-15.5) % Plt Count 134 L (150-450) k/uL Lymphocytes # 0.7 L (1.0-4.8) k/uL PT 22.6 H (9.0-12.0) sec INR 2.3 H (<1.2) APTT (22.0-30.0) sec BUN 50 H (9-20) mg/dL Creatinine 1.88 H (0.66-1.25) mg/dL Glucose (74-99) mg/dL Magnesium (1.6-2.3) mg/dL Alkaline Phosphatase (38-126) U/L
[2020-02-13] MEDS ORDERED: ALPRAZolam 0.5 MG TAB PO PRN (10:28)
[2020-02-13] MEDS ORDERED: NITROGLYCERIN SL TABS 0.4 MG TAB SUBLINGUAL PRN (10:28)
[2020-02-13] MEDS ORDERED: ALPRAZolam 0.25 MG TAB PO PRN (10:28)
--- NOTE | 2020-02-13 10:36 | P.TEE ---
Indications for Procedure(s): Assessment of mitral regurgitation Date of Procedure: 02/13/20 Preoperative Diagnosis: Moderate to severe mitral regurgitation, severe tricuspid regurgitation Postoperative Diagnosis: Severe eccentric mitral regurgitation and severe tricuspid regurgitation and PFO Description of Procedure(s): INDICATION: Assessment of mitral regurgitation CONSENT: informed verbal consent was obtained from the patient PROCEDURE: Patient was brought to the lab in a fasting state. He was prepped and draped in the usual fashion. The throat was sprayed with his Hurricaine. A lubricated Omni probe was introduced into the oropharynxand was advanced into the esophagus. Patient was given IV sedation with 1 mg of Versed and 50 g of fentanyl. Color, pulsed and continuous Doppler studies were done. These were obtained both from the esophagus and stomach. Patient tolerated the procedure well. Saline contrast bubble injection was also performed. No immediate complications FINDINGS: The aortic valve is tricuspid with mild regurgitation. The mitral valve showed evidence of malcoaptationAnd evidence of extrinsic mitral regurgitation directed posterio laterally. The PISA value was about 1. There is a reversal of flow within the right pulmonary vein. There is biatrial enlargement There is severe tricuspid regurgitation. There is a closer device in the interatrial septum with residual shunt from left to right.Saline contrast bubble injection showed crossing of the bubbles across the interatrial septum. Left ventricle size and function appear to be normal. The aortic pressure showed mild plaque and there is no clot in the left atrial appendage. IMPRESSION: #1 Severe mitral regurgitation which is eccentric. #2. Severe tricuspid regurgitation. #3. Severe pulmonary hypertension with systolic blood pressure of about 70. #4. Biatrial enlargement. #5 Presence of PFO closure device with residual shunt #6. Preserved LV function. #7. No clot in the left atrial appendage PLAN: Proceed with cardiac catheterization. Patient may need mitral and tricuspid valve repair/replacement placement and possible PFO closure
[2020-02-13] MEDS: FOLIC ACID 1 MG TAB PO SCH (11:09)
[2020-02-13] MEDS: METOPROLOL TARTRATE 25 MG TAB PO SCH (11:10)
[2020-02-13] MEDS: LORATADINE 10 MG TAB PO SCH (11:10)
[2020-02-13] MEDS: POTASSIUM CHLORIDE ER 20 MEQ TAB.ER PO SCH ×2 (11:10→21:30)
[2020-02-13] MEDS: allopurinoL 300 MG TAB PO SCH (11:10)
[2020-02-13] MEDS: ASCORBIC ACID 500 MG TAB PO SCH (11:10)
[2020-02-13] MEDS: FERROUS SULFATE 325 MG TAB PO SCH (11:10)
[2020-02-13] MEDS: MULTIVITAMINS, THERA 1 EACH TAB PO SCH (11:10)
[2020-02-13] MEDS: SODIUM CHLORIDE 0.9% 1,000 ML IV SCH (11:50)
[2020-02-13] MEDS: TORSEMIDE 20 MG TAB PO SCH ×2 (11:51→21:30)
--- NOTE | 2020-02-13 13:52 | P.CNPUL ---
History of Present Illness Consult date: 02/13/20 Requesting physician: Louis Mondragon Reason for consult: dyspnea Chief complaint: shortness of breath History of present illness: This is a 79-year-old patient of Dr. Mojica, who we have previously seen in consultation in January, when the patient was hospitalized for dyspnea related to acute exacerbation of chronic congestive heart failure, and patient had bilateral pleural effusions, right greater than left, and underwent a right- sided thoracentesis on 01/21/[address] Kirkpatrick would removal of 1.5 L of turbid dark yellowish pleural fluid which turned out to be transudative in natu re and consistent with the patient's presentation and acute exacerbation of diastolic heart failure. patient had an echocardiogram on 2019 which showed mild concentric LVH, with the EF of 50-55%, mild aortic regurgitation, mild mitral regurgitation, severe tricuspid regurgitation and severe pulmonary hypertension with PA pressure of 59.5 mmHg, there was moderate pulmonic regurgitation. Patient has a known history of chronic A. fib on Coumadin, past medical history of coronary artery disease with stents, sick sinus syndrome status post permanent pacemaker implantation, previous history of ASD status post percutaneous closure, COPD, hypertension, hyperlipidemia, previous history of pneumonia, sleep apnea on CPAP. on 02/12/2020 patient came into the emergency department for evaluation of progressive dyspnea, for the past 3 days, exertional dyspnea, patient denied any chest pain, no fever, chills, no significant cough or phlegm production, no nausea vomiting, no chills, no sweats, history is x-ray showed cardiomegaly with perihilar and interstitial changes and a small pleural effusions. 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 lab work showed the no evidence of leukocytosis, white blood cell, 7.9, hemoglobin is 12, INR is therapeutic at 2.1, electrolytes were unremarkable, BUN is 57 creatinine is 1.9. Troponins were negative 2, at less than 0.012, proBNP is 1790. patient had a transesophageal echocardiogram today which showed a severe mitral regurgitation which was eccentric, severe tricuspid regurgitation, and severe pulmonary hypertension with PA pressure of 70, biatri al enlargement, presence of PFO closure device with residual shunt, and preserved LV function, and no evidence of clot in the left atrial appendage. patient appears to be calm and comfortable currently, he is on 4 L of oxygen his pulse ox of 95%, denies any chest pain, he is afebrile, he was started on Demadex. Cardiology is following. Review of Systems All systems: negative Constitutional: Denies chills, Denies fever Eyes: denies blurred vision, denies pain Ears, nose, mouth and throat: Denies headache, Denies sore throat Cardiovascular: Denies chest pain, Denies shortness of breath Respiratory: Reports dyspnea, Denies cough Gastrointestinal: Denies abdominal pain, Denies diarrhea, Denies nausea, Denies vomiting Musculoskeletal: Denies myalgias Integumentary: Denies pruritus, Denies rash Neurological: Denies numbness, Denies weakness Psychiatric: Denies anxiety, Denies depression Endocrine: Denies fatigue, Denies weight change Past Medical History Past Medical History: Atrial Fibrillation, Coronary Artery Disease (CAD), Heart Failure, COPD, Hyperlipidemia, Hypertension, Myocardial Infarction (CO), Osteoarthritis (OA), Pneumonia, Prostate Disorder, Renal Disease, Sleep Apnea/CPAP/BIPAP Additional Past Medical History / Comment(s): Pt recently admitted to [facility] on 01/18/20 with acute exacerbation CHF/R small pleural effusion with thoracentesis. Other hx: SSS with pacer, pulmonary HTN, JOSE JUAN with cpap, BPH, CKD, gout bilateral great toes, Last Myocardial Infarction Date:: 2001 History of Any Multi-Drug Resistant Organisms: None Reported Past Surgical History: Appendectomy, Heart Catheterization, Heart Catheterization With Stent, Orthopedic Surgery, Pacemaker Additional Past Surgical History / Comment(s): PCI with stents, pacemaker, percutaneous closure ASD/PFO, AVIVA, colonoscopy with bening polyps, R hand surgery for dupuytren's and injections to L hand for the same, ORIF R elbow and wrist as child. Past Anesthesia/Blood Transfusion Reactions: Motion Sickness Additional Past Anesthesia/Blood Transfusion Reaction / Comment(s): Pt has cl austerphobia Date of Last Stent Placement:: 10/2012 Type of Cardiac Device: Permanent Pacemaker Device Placement Date:: 2016 Smoking Status: Former smoker - Past Family History Father Additional Family Medical History / Comment(s): Father had heart problems. Mother Family Medical History: AFIB Additional Family Medical History / Comment(s): Mother had heart problems. Sister(s) Family Medical History: Cancer Additional Family Medical History / Comment(s): One sister with breast cancer and another had a pacer. Medications and Allergies Home Medications Medication Instructions Recorded Confirmed Type Ascorbic Acid [Vitamin C] 1,000 mg PO DAILY 07/21/14 02/12/20 History Atorvastatin [Lipitor] 40 mg PO HS 07/21/14 02/12/20 History Warfarin [Coumadin] 1 mg PO HS 07/21/14 02/12/20 History allopurinoL [Zyloprim] 300 mg PO DAILY 07/21/14 02/12/20 History Multivitamins, Thera [Multivitamin 1 tab PO DAILY 05/04/16 02/12/20 History (formulary)] amLODIPine BESYLATE [Norvasc] 10 mg PO HS #30 tablet 05/06/16 02/12/20 Rx Aspirin EC [Ecotrin Low Dose] 81 mg PO HS 08/22/18 02/12/20 History Loratadine [Claritin] 10 mg PO DAILY 08/22/18 02/12/20 History Potassium Chloride ER [K-Dur 20] 20 meq PO BID 09/22/18 02/12/20 History Metoprolol Tartrate [Lopressor] 25 mg PO DAILY 04/20/19 02/12/20 History Ferrous Sulfate [Iron (65 MG 325 mg PO DAILY 01/18/20 02/12/20 History Elemental)] Folate 40 mg PO DAILY 01/18/20 02/12/20 History Torsemide [Demadex] 20 mg PO BID tab 01/22/20 02/12/20 Rx Allergies Allergy/AdvReac Type Severity Reaction Status Date / Time No Known Allergies Allergy Verified 02/12/20 09:54 Physical Exam Vitals: Vital Signs Temp Pulse Resp BP Pulse Ox 02/13/20 12:00 71 18 02/13/20 10:43 71 18 130/60 95 02/13/20 10:28 72 19 131/63 93 L 02/13/20 08:00 97.2 F L 68 19 126/63 93 L 02/13/20 04:00 97.8 F 66 18 139/94 90 L 02/12/20 23:29 97.4 F L 62 18 139/75 90 L 02/12/20 20:00 97.5 F L 80 18 143/73 90 L 02/12/20 16:10 97.5 F L 64 16 128/70 94 L Intake and Output 02/12/20 02/13/20 02/13/20 22:59 06:59 14:59 Intake Total 240 250 Output Total 1000 250 Balance 240 -1000 0 Intake: IV 250 Oral 240 Output: Urine 1000 250 Other: Voiding Method Toilet Toilet # Voids 1 Weight 71.7 kg GENERAL EXAM: Alert, very pleasant, 79-year-old white male, on 4 L of oxygen with pulse ox of 95%comfortable in no apparent distress. HEAD: Normocephalic/atraumatic. EYES: Normal reaction of pupils, equal size. Conjunctiva pink, sclera white. NOSE: Clear with pink turbinates. THROAT: No erythema or exudates. NECK: No masses, no JVD, no thyroid enlargement, no adenopathy. CHEST: No chest wall deformity. Symmetrical expansion. LUNGS: Equal air entry with no crackles, wheeze, rhonchi or dullness. CVS: Regular rate and rhythm, normal S1 and S2, no gallops, no murmurs, no rubs ABDOMEN: Soft, nontender. No hepatosplenomegaly, normal bowel sounds, no guarding or rigidity. EXTREMITIES: No clubbing, no edema, no cyanosis, 2+ pulses and upper and lower extremities. MUSCULOSKELETAL: Muscle strength and tone normal. SPINE: No scoliosis or deformity SKIN: No rashes CENTRAL NERVOUS SYSTEM: Alert and oriented -3. No focal deficits, tone is normal in all 4 extremities. PSYCHIATRIC: Alert and oriented -3. Appropriate affect. Intact judgment and insight. Results - Laboratory Findings CBC and BMP: 02/13/20 06:37 02/13/20 06:37 PT/INR, D-dimer PT 22.6 sec (9.0-12.0) H 02/13/20 06:37 INR 2.3 (<1.2) H 02/13/20 06:37 Abnormal lab findings: Abnormal Labs 02/12/20 02/12/20 02/12/20 09:34 09:34 09:34 RBC 3.89 L Hgb 12.0 L Hct 36.6 L RDW 16.0 H Plt Count 141 L Lymphocytes # 0.6 L PT 20.6 H INR 2.1 H APTT 35.6 H BUN 57 H Creatinine 1.92 H Glucose 173 H Magnesium 2.4 H Alkaline Phosphatase 128 H 02/13/20 02/13/20 02/13/20 06:37 06:37 06:37 RBC 3.59 L Hgb 10.8 L Hct 34.6 L RDW 16.3 H Plt Count 134 L Lymphocytes # 0.7 L PT 22.6 H INR 2.3 H APTT BUN 50 H Creatinine 1.88 H Glucose Magnesium Alkaline Phosphatase - Diagnostic Findings Chest x-ray: report reviewed, image reviewed Assessment and Plan Plan: Assessment: #1. Acute on chronic dyspnea related to known history of valvular heart disease, severe pulmonary hypertension, and mild exacerbation of diastolic CHF #2. Small bilateral pleural effusions, too small to drain, with recent history of right-sided thoracentesis with removal 1.5 L of pleural fluid which was transudate in nature #3. History of chronic atrial fibrillation on Coumadin #4. History of ASD status post percutaneous repair #5. Severe mitral and tricuspid regurgitation, with severe pulmonary hypertension with PA pressure of 70 mmHg #6. History of sick sinus syndrome, status post pacemaker implantation #7. history of sleep apnea on CPAP #8. Hypertension #9. Hyperlipidemia #10. History of COPD #11.previous history of pneumonia #12. Previous history of smoking #13. History of coronary artery disease with previous stenting #14.Chronic kidney disease stage III Plan: Chest x-ray did not show sizable pleural fluid pocket for drainage, would continue medical therapy, patient was started on diuretics, AVIVA results have been noted. Would continue current medical treatment, no plans for thoracentesis, will await further recommendations from cardiology I performed a history & physical examination of the patient and discussed their management with my nurse practitioner, Yesy Hu. I reviewed the nurse practitioner's note and agree with the documented findings and plan of care. Lung sounds are positive for diminished breath sounds. The findings and the impression was discussed with the patient. I attest to the documentation by the nurse practitioner. Time with Patient: Greater than 30
--- NOTE | 2020-02-13 18:04 | P.PN ---
Subjective Progress Note Date: 02/13/20 Von Mascorro, is a 79-year-old male, who presented to [facility] emergency room with a chief complaint of worsening shortness of breath, patient had recent hospitalization with similar complaint at that time he had right sided pleural effusion and underwent thoracentesis, he was discharged home and was followed as outpatient by pulmonary and cardiology, his condition started to worsen again about 5 days ago when he started having severe shortness of breath and decided today to come to emergency room. Patient was evaluated in emergency room his temperature on presentation was 97.6 pulse 69 respiration 22 blood pressure 126/72 pulse ox 91% on room air, his white blood count was 7.9 hemoglobin 12.1 platelet count 141 INR was therapeutic at 2.1 BUN 57 creatinine 1.9 to glucose 173 alkaline phosphatase 128 and troponin level less than 0.12 EKG done in the emergency room revealed atrial fibrillation, chest x-ray revealed evidence of cardiomegaly with perihilar and interstitial changes and small effusions bilaterally suggestive of mild CHF. Patient was admitted to telemetry floor cardiology consultation and pulmonary consultation was requested. Patient has a known history of chronic atrial fibrillation maintained on Coumadin he also has a known history of coronary artery disease with previous history of angioplasty and stent placement in the past, he has known history of valvular heart disease and history of pulmonary hypertension, he has a known history of sick sinus syndrome status post pacemaker placement he has a known history of ASD status post percutaneous closure he has known history of hypertension, hyperlipidemia, history of COPD, history of obstructive sleep apnea maintained on CPAP, and history of previous episodes of pneumonia in the past. On review of systems patient is alert and oriented 3 in no apparent distress there is no fever or chills no headache or dizziness he is complaining of shortness of breath with any activity he has occasional cough with clear sputum production he has some episodes of pain and pressure in the left side of the chest that last for few seconds at that time otherwise he denies any complaints no nausea or vomiting no abdominal pain no diarrhea no blood in the stools no burning with urination no frequency or urgency and no hematuria. on 02/13/2020 patient was seen and examined on the medical floor he is alert and oriented 3 in no apparent distress he is still complaining of shortness of breath with any activity otherwise he denies any complaints there is no fever or chills no headache or dizziness no chest pain no palpitation no cough no nausea or vomiting no abdominal pain no diarrhea no blood in the stools oh burning with urination no frequency or urgency no hematuria patient underwent AVIVA today aw aiting further recommendation from cardiology, BUN and creatinine are elevated Will consult nephrology Objective - Vital Signs Vital signs: Vital Signs Temp 97.2 F L 02/13/20 08:00 Pulse 72 02/13/20 10:28 Resp 19 02/13/20 10:28 BP 131/63 02/13/20 10:28 Pulse Ox 93 L 02/13/20 10:28 Intake & Output 02/12/20 02/13/20 02/13/20 18:59 06:59 18:59 Intake Total 540 250 Output Total 250 1000 Balance 290 -1000 250 Weight 72.575 kg 71.7 kg Intake: IV 250 Oral 540 Output: Urine 250 1000 Other: Voiding Method Toilet # Voids 1 - Exam In general patient is alert and oriented 3 in no distress HEENT head normocephalic and atraumatic Neck is supple no JVD no goiter no lymphadenopathy Chest exam reveals a few scattered rhonchi no wheezing Cardiac exam reveals regular heart sounds no gallops no murmurs Abdomen is soft nontender no organomegaly with normal bowel sounds Extremity exam reveals no edema no cyanosis or clubbing Neurological examination reveals no gross focal deficit - Labs CBC & Chem 7: 02/13/20 06:37 02/13/20 06:37 Labs: Abnormal Lab Results - Last 24 Hours (Table) 02/13/20 02/13/20 02/13/20 Range/Units 06:37 06:37 06:37 RBC 3.59 L (4.30-5.90) m/uL Hgb 10.8 L (13.0-17.5) gm/dL Hct 34.6 L (39.0-53.0) % RDW 16.3 H (11.5-15.5) % Plt Count 134 L (150-450) k/uL Lymphocytes # 0.7 L (1.0-4.8) k/uL PT 22.6 H (9.0-12.0) sec INR 2.3 H (<1.2) BUN 50 H (9-20) mg/dL Creatinine 1.88 H (0.66-1.25) mg/dL Assessment and Plan Plan: 1. Worsening shortness of breath, cause is not entirely clear at this time, pulmonary consultation angina cardiology consultation are requested 2. Episodes of chest pain, no evidence of acute coronary syndrome at this time, troponin level so far are negative, possible stress test during this admission per cardiology. 3. Underlying history of chronic kidney disease 4. Underlying history of coronary artery disease 5. Underlying history of pulmonary hypertension 6. Underlying history of valvular heart disease, with moderate to severe mitral regurgitation and moderate to severe tricuspid regurgitation on AVIVA of August 2018 7. Underlying history of atrial fibrillation maintained on Coumadin INR is in therapeutic range At this time patient was seen and examined Home medications reviewed and reordered Consultation for pulmonary and cardiology were initiated Will follow closely
[2020-02-13] MEDS: amLODIPine 10 MG TAB PO SCH (21:30)
[2020-02-13] MEDS: ASPIRIN 81 MG PO SCH (21:30)
[2020-02-13] MEDS: ATORVASTATIN 40 MG TAB PO SCH (21:30)
[2020-02-14] MEDS ORDERED: SODIUM CHLORIDE 0.9% 1,000 ML in EMPTY BAG 1 BAG IV ONE ×2 (06:00→10:17)
[2020-02-14] MEDS: allopurinoL 300 MG TAB PO SCH (06:41)
[2020-02-14] MEDS: ASCORBIC ACID 500 MG TAB PO SCH (06:41)
[2020-02-14] MEDS: POTASSIUM CHLORIDE ER 20 MEQ TAB.ER PO SCH ×2 (06:41→22:17)
[2020-02-14] MEDS: LORATADINE 10 MG TAB PO SCH (06:41)
[2020-02-14] MEDS: FERROUS SULFATE 325 MG TAB PO SCH (06:41)
[2020-02-14] MEDS: METOPROLOL TARTRATE 25 MG TAB PO SCH (06:41)
[2020-02-14] MEDS: FOLIC ACID 1 MG TAB PO SCH (06:41)
[2020-02-14] MEDS: MULTIVITAMINS, THERA 1 EACH TAB PO SCH (06:42)
[2020-02-14] MEDS: SODIUM CHLORIDE 0.9% 1,000 ML IV SCH ×2 (07:40→13:24)
[2020-02-14] MEDS ORDERED: ASPIRIN 325 MG TAB PO ONE (09:00)
[2020-02-14 09:49] LABS: HCT 32.1 % (39.0-53.0); HGB 10.5 gm/dL (13.0-17.5); Hypochromasia Slight; MCH 31.1 pg (25.0-35.0); MCHC 32.8 g/dL (31.0-37.0); MCV 94.9 fL (80.0-100.0); Mean Platelet Volume 8.8; Platelet Count 123 k/uL (150-450); RBC 3.38 m/uL (4.30-5.90); RDW 15.9 % (11.5-15.5); WBC 7.4 k/uL (3.8-10.6)
[2020-02-14 09:51] LABS: INR 2.4 (<1.2); Prothrombin Time 23.8 sec (9.0-12.0)
[2020-02-14 10:03] LABS: Albumin 3.4 g/dL (3.5-5.0); Calcium 8.6 mg/dL (8.4-10.2); Potassium 3.7 mmol/L (3.5-5.1); Total Bilirubin 0.9 mg/dL (0.2-1.3)
[2020-02-14 11:43] LABS: Anisocytosis Slight; HCT 35.2 % (39.0-53.0); HGB 10.9 gm/dL (13.0-17.5); Hypochromasia Slight; MCH 29.9 pg (25.0-35.0); MCV 96.5 fL (80.0-100.0); Mean Platelet Volume 8.9; Platelet Count 136 k/uL (150-450); RBC 3.64 m/uL (4.30-5.90); RDW 16.2 % (11.5-15.5); WBC 6.8 k/uL (3.8-10.6)
[2020-02-14 11:59] LABS: INR 2.3 (<1.2)
[2020-02-14] MEDS ORDERED: IV FLUID CONTINUATION 600 ML IV ONE (12:10)
[2020-02-14] MEDS: MIDAZOLAM 2 MG/2 ML VIAL IV ONE ×2 (12:17→12:28)
[2020-02-14] MEDS ORDERED: LIDOCAINE 1% INJ 10MG/ML (20 ML MDV) SQ ONE (12:22)
[2020-02-14] MEDS ORDERED: VERAPAMIL SYRINGE (5 MG/10 ML) INTRAARTER ONE (12:25)
--- NOTE | 2020-02-14 12:35 | CONS ---
CONSULTATION REASON FOR CONSULT: Renal failure. HISTORY OF PRESENT ILLNESS: Patient is a 79-year-old male with history of hypertension, chronic kidney disease, stage 3B to 4 with baseline creatinine about 1.5 to 1.6 mg/dL. Patient was admitted to the hospital with complaints of shortness of breath, increased lower extremity edema. He denied any fever, chills, nausea, vomiting or abdominal pain. Patient also has a history of underlying coronary artery disease, atrial fibrillation. He was recently hospitalized with right pleural effusion and had thoracenteses done. On this admission, chest x-ray showed some interstitial changes and effusions suggestive of CHF. Patient is maintained on Demadex that he was taking at home. He denies any significant urinary symptoms. Blood pressure has not been low. No fever, chills, nausea, vomiting or abdominal pain. PAST MEDICAL HISTORY CKD, CHF, valvular heart disease, anemia, HTN, CAD, COPD, A fib, Hypercholesterolemia, BPH, JOSE JUAN PAST SURGICAL HISTORY Appendectomy, cardiac cath with coronary stent placement, pacemaker placement, AVIVA, colonoscopy,R hand sx, ORIF, R elbow, MEDICATIONS Vitamin C, lipitor, zyloprim, norvasc, ASA, Claritin, potassium, lopressoe, demadex. ALLERGIES NKDA ON EXAMINATION Pt is comfortable, awake , alert and oriented x3.VSS Lungs are clear with decreased braeth sounds at bases CVS s1 and s2 are heard, no rub Abdomen is soft, no organomegally, non tender [employer] exam is grossly intact. Pt is moving all 4 extremities. ASSESSMENT: 1. Chronic kidney disease stage 3, baseline creatinine 1.5-1.6 secondary to nephrosclerosis. Patient's creatinine has been also at 1.7-1.89 range earlier in 2019. 2. Anemia of chronic disease. 3. CHF acute on top of chronic, mostly diastolic. Patient's ejection fraction was preserved on AVIVA done on 02/13/2020. 4. Moderate to severe mitral regurgitation with severe tricuspid regurgitation with PFO. 5. Hypokalemia secondary to diuretics. 6. Anemia of chronic disease. PLAN: Maintain patient on IV Lasix for 1-2 days and then we can resume the oral Demadex. Repeat labs in a.m. Avoid hypotension. DC IV fluids. Check urinalysis. Thank you for this consultation. We will continue to follow the patient with you during his hospitalization. MMODL / IJN: [id number] / MTDD
[2020-02-14] MEDS ORDERED: IOPAMIDOL-370 100ML BTL INJ ONE (12:38)
[2020-02-14] MEDS ORDERED: RX INFO: IV CONTRAST WAS GIVEN 1 EACH MISC MISCELLANE PRN (12:47)
[2020-02-14] MEDS: TORSEMIDE 20 MG TAB PO SCH (13:03)
--- NOTE | 2020-02-14 13:07 | P.PN ---
Subjective Progress Note Date: 02/14/20 Principal diagnosis: Shortness of breath This is a 79-year-old patient of Dr. Mojica, who we have previously seen in consultation in January, when the patient was hospitalized for dyspnea related to acute exacerbation of chronic congestive heart failure, and patient had bilateral pleural effusions, right greater than left, and underwent a right- sided thoracentesis on 01/21/[address] Kirkpatrick would removal of 1.5 L of turbid dark yellowish pleural fluid which turned out to be transudative in nature and consistent with the patient's presentation and acute exacerbation of diastolic heart failure. patient had an echocardiogram on 2019 which showed mild concentric LVH, with the EF of 50-55%, mild aortic regurgitation, mild mitral regurgitation, severe tricuspid regurgitation and severe pulmonary hypertension with PA pressure of 59.5 mmHg, there was moderate pulmonic regurgitation. Patient has a known history of chronic A. fib on Coumadin, past medical history of coronary artery disease with stents, sick sinus syndrome status post permanent pacemaker implantation, previous history of ASD status post percutaneous closure, COPD, hypertension, hyperlipidemia, previous history of pneumonia, sleep apnea on CPAP. on 02/12/2020 patient came into the emergency department for evaluation of progressive dyspnea, for the past 3 days, exertional dyspnea, patient denied any chest pain, no fever, chills, no significant cough or phlegm production, no nausea vomiting, no chills, no sweats, history is x-ray showed cardiomegaly with perihilar and interstitial ch anges and a small pleural effusions. 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 lab work showed the no evidence of leukocytosis, white blood cell, 7.9, hemoglobin is 12, INR is therapeutic at 2.1, electrolytes were unremarkable, BUN is 57 creatinine is 1.9. Troponins were negative 2, at less than 0.012, proBNP is 1790. patient had a transesophageal echocardiogram today which showed a severe mitral regurgitation which was eccentric, severe tricuspid regurgitation, and severe pulmonary hypertension with PA pressure of 70, biatrial enlargement, presence of PFO closure device with residual shunt, and preserved LV function, and no evidence of clot in the left atrial appendage. patient appears to be calm and comfortable currently, he is on 4 L of oxygen his pulse ox of 95%, denies any chest pain, he is afebrile, he was started on Demadex. Cardiology is following. The patient is seen today 02/14/2020 in follow-up on the selective care unit. He is currently awake and alert in no acute distress. Resting quite comfortably in bed. He is maintaining O2 saturations in the low 90s on 4 L/m per nasal cannula. He is afebrile. Hemodynamically stable. He did undergo AVIVA yesterday that revealed severe eccentric mitral regurgitation and severe tricuspid regurgitation and patent foramen ovale. The plan is for cardiac catheterization today. White count 7.4. Hemoglobin 10.5. INR 2.4. Sodium 140. Potassium 3.7. Creatinine 1.82. Remains on IV diuretics. Objective - Vital Signs Vital signs: Vital Signs Temp 97.2 F L 02/14/20 11:31 Pulse 60 02/14/20 11:31 Resp 20 02/14/20 11:31 BP 145/69 02/14/20 11:31 Pulse Ox 91 L 02/14/20 11:31 Intake & Output 02/13/20 02/14/20 02/14/20 18:59 06:59 18:59 Intake Total 900 633 Output Total 700 Balance 200 633 Weight 70.5 kg Intake: IV 250 633 Invasive Line 1 10 Sodium Chloride 0.9% 1, 423 000 ml In Empty Bag 1 bag @ 1 ML/KG/HR 70.5 mls/hr IV .[id number] ONE Rx#: [id number] Oral 650 Output: Urine 700 Other: Voiding Method Toilet Toilet # Voids 2 - Exam GENERAL EXAM: Alert, very pleasant, 79-year-old male patient, on 4 L of oxygen with pulse ox of 91%, comfortable in no apparent distress. HEAD: Normocephalic/atraumatic. EYES: Normal reaction of pupils, equal size. Conjunctiva pink, sclera white. NOSE: Clear with pink turbinates. THROAT: No erythema or exudates. NECK: No masses, no JVD, no thyroid enlargement, no adenopathy. CHEST: No chest wall deformity. Symmetrical expansion. LUNGS: Equal air entry with faint crackles in the bilateral posterior bases. CVS: Regular rate and rhythm, normal S1 and S2, no gallops, no murmurs, no rubs ABDOMEN: Soft, nontender. No hepatosplenomegaly, normal bowel sounds, no guarding or rigidity. EXTREMITIES: No clubbing, no edema, no cyanosis, 2+ pulses and upper and lower extremities. MUSCULOSKELETAL: Muscle strength and tone normal. SPINE: No scoliosis or deformity SKIN: No rashes CENTRAL NERVOUS SYSTEM: Alert and oriented -3. No focal deficits, tone is nor mal in all 4 extremities. PSYCHIATRIC: Alert and oriented -3. Appropriate affect. Intact judgment and insight. - Labs CBC & Chem 7: 02/14/20 09:30 02/14/20 09:30 Labs: Abnormal Lab Results - Last 24 Hours (Table) 02/14/20 02/14/20 02/14/20 Range/Units 06:25 06:25 09:30 RBC 3.64 L 3.38 L (4.30-5.90) m/uL Hgb 10.9 L 10.5 L (13.0-17.5) gm/dL Hct 35.2 L 32.1 L (39.0-53.0) % RDW 16.2 H 15.9 H (11.5-15.5) % Plt Count 136 L 123 L (150-450) k/uL PT 22.0 H (9.0-12.0) sec INR 2.3 H (<1.2) BUN (9-20) mg/dL Creatinine (0.66-1.25) mg/dL Total Protein (6.3-8.2) g/dL Albumin (3.5-5.0) g/dL 02/14/20 02/14/20 Range/Units 09:30 09:30 RBC (4.30-5.90) m/uL Hgb (13.0-17.5) gm/dL Hct (39.0-53.0) % RDW (11.5-15.5) % Plt Count (150-450) k/uL PT 23.8 H (9.0-12.0) sec INR 2.4 H (<1.2) BUN 45 H (9-20) mg/dL Creatinine 1.82 H (0.66-1.25) mg/dL Total Protein 6.0 L (6.3-8.2) g/dL Albumin 3.4 L (3.5-5.0) g/dL Assessment and Plan Assessment: 1 Acute on chronic dyspnea related to known history of valvular heart disease, severe pulmonary hypertension, and mild exacerbation of diastolic CHF. Transesophageal echocardiogram reveals severe eccentric mitral care dictation and severe tricuspid regurgitation and patent foramen ovale with presence of PFO closure device in residual shunt. Cardiac catheterization planned for today 2 Small bilateral pleural effusions, too small to drain, with recent history of right-sided thoracentesis with removal 1.5 L of pleural fluid which was transudate in nature 3 History of chronic atrial fibrillation on Coumadin 4 History of ASD status post percutaneous repair 5 Severe mitral and tricuspid regurgitation, with severe pulmonary hypertension with PA pressure of 70 mmHg 6 History of sick sinus syndrome, status post pacemaker implantation 7 History of sleep apnea on CPAP 8 Hypertension 9 Hyperlipidemia 10 History of COPD 11 Previous history of pneumonia 12 Previous history of smoking 13 History of coronary artery disease with previous stenting 14 Chronic kidney disease stage III Plan: The patient was seen and evaluated by Dr. Mcdonnell AVIVA results reviewed Awaiting cardiac catheterization results Remains on IV diuretics We'll continue the current treatment plan Continue to follow I, the cosigning physician, performed a history & physical examination of the patient. Lungs sounds with crackles in the bilateral posterior bases. Maintaining good O2 saturations in the 90s on 4 L/m per nasal cannula. I discussed the assessment and plan of care with my nurse practitioner, Mable Castanon. I attest to the above note as dictated by her.
--- NOTE | 2020-02-14 13:35 | P.PN ---
Subjective Progress Note Date: 02/14/20 Von Mascorro, is a 79-year-old male, who presented to [facility] emergency room with a chief complaint of worsening shortness of breath, patient had recent hospitalization with similar complaint at that time he had right sided pleural effusion and underwent thoracentesis, he was discharged home and was followed as outpatient by pulmonary and cardiology, his condition started to worsen again about 5 days ago when he started having severe shortness of breath and decided today to come to emergency room. Patient was evaluated in emergency room his temperature on presentation was 97.6 pulse 69 respiration 22 blood pressure 126/72 pulse ox 91% on room air, his white blood count was 7.9 hemoglobin 12.1 platelet count 141 INR was therapeutic at 2.1 BUN 57 creatinine 1.9 to glucose 173 alkaline phosphatase 128 and troponin level less than 0.12 EKG done in the emergency room revealed atrial fibrillation, chest x-ray revealed evidence of cardiomegaly with perihilar and interstitial changes and small effusions bilaterally suggestive of mild CHF. Patient was admitted to telemetry floor cardiology consultation and pulmonary consultation was requested. Patient has a known history of chronic atrial fibrillation maintained on Coumadin he also has a known history of coronary artery disease with previous history of angioplasty and stent placement in the past, he has known history of valvular heart disease and history of pulmonary hypertension, he has a known history of sick sinus syndrome status post pacemaker placement he has a known history of ASD status post percutaneous closure he has known history of hypertension, hyperlipidemia, history of COPD, history of obstructive sleep apnea maintained on CPAP, and history of previous episodes of pneumonia in the past. On review of systems patient is alert and oriented 3 in no apparent distress there is no fever or chills no headache or dizziness he is complaining of shortness of breath with any activity he has occasional cough with clear sputum production he has some episodes of pain and pressure in the left side of the chest that last for few seconds at that time otherwise he denies any complaints no nausea or vomiting no abdominal pain no diarrhea no blood in the stools no burning with urination no frequency or urgency and no hematuria. on 02/13/2020 patient was seen and examined on the medical floor he is alert and oriented 3 in no apparent distress he is still complaining of shortness of breath with any activity otherwise he denies any complaints there is no fever or chills no headache or dizziness no chest pain no palpitation no cough no nausea or vomiting no abdominal pain no diarrhea no blood in the stools oh burning with urination no frequency or urgency no hematuria patient underwent AVIVA today aw aiting further recommendation from cardiology, BUN and creatinine are elevated Will consult nephrology On 02/14/2020 patient is alert and oriented 3 status post cardiac catheterization today. Per nursing staff heart catheterization revealed multivessel disease along with severe mitral and tricuspid regurg with severe pulmonary hypertension. Cardiothoracic surgery has been consulted for evalua tion. Creatinine is trending down to 1.82 and bun 45. Nephrology services are following. Patient remains on IV Lasix. At this time patient denies chest pain or shortness of breath. Patient denies nausea vomiting or diarrhea. Patient denies any urinary burning or frequency Objective - Vital Signs Vital signs: Vital Signs Temp 97.2 F L 02/14/20 11:31 Pulse 60 02/14/20 11:31 Resp 20 02/14/20 11:31 BP 145/69 02/14/20 11:31 Pulse Ox 91 L 02/14/20 11:31 Intake & Output 02/13/20 02/14/20 02/14/20 18:59 06:59 18:59 Intake Total 900 633 Output Total 700 Balance 200 633 Weight 70.5 kg Intake: IV 250 633 Invasive Line 1 10 Sodium Chloride 0.9% 1, 423 000 ml In Empty Bag 1 bag @ 1 ML/KG/HR 70.5 mls/hr IV .[id number] ONE Rx#: [id number] Oral 650 Output: Urine 700 Other: Voiding Method Toilet Toilet # Voids 2 - Exam In general patient is alert and oriented 3 in no distress HEENT head normocephalic and atraumatic Neck is supple no JVD no goiter no lymphadenopathy Chest exam reveals a few scattered rhonchi no wheezing Cardiac exam reveals regular heart sounds no gallops no murmurs Abdomen is soft nontender no organomegaly with normal bowel sounds Extremity exam reveals no edema no cyanosis or clubbing Neurological examination reveals no gross focal deficit - Labs CBC & Chem 7: 02/14/20 09:30 02/14/20 09:30 Labs: Abnormal Lab Results - Last 24 Hours (Table) 02/14/20 02/14/20 02/14/20 Range/Units 06:25 06:25 09:30 RBC 3.64 L 3.38 L (4.30-5.90) m/uL Hgb 10.9 L 10.5 L (13.0-17.5) gm/dL Hct 35.2 L 32.1 L (39.0-53.0) % RDW 16.2 H 15.9 H (11.5-15.5) % Plt Count 136 L 123 L (150-450) k/uL PT 22.0 H (9.0-12.0) sec INR 2.3 H (<1.2) BUN (9-20) mg/dL Creatinine (0.66-1.25) mg/dL Total Protein (6.3-8.2) g/dL Albumin (3.5-5.0) g/dL 02/14/20 02/14/20 Range/Units 09:30 09:30 RBC (4.30-5.90) m/uL Hgb (13.0-17.5) gm/dL Hct (39.0-53.0) % RDW (11.5-15.5) % Plt Count (150-450) k/uL PT 23.8 H (9.0-12.0) sec INR 2.4 H (<1.2) BUN 45 H (9-20) mg/dL Creatinine 1.82 H (0.66-1.25) mg/dL Total Protein 6.0 L (6.3-8.2) g/dL Albumin 3.4 L (3.5-5.0) g/dL Assessment and Plan Assessment: 1. Worsening shortness of breath, cause is not entirely clear at this time, pulmonary consultation angina cardiology consultation are requested. Pulmonary services are following. Patient remains on IV Lasix 2. Episodes of chest pain, no evidence of acute coronary syndrome at this time, troponin level so far are negative, possible stress test during this admission per cardiology. 3. Acute on chronic kidney disease. Nephrology services are following. Creatinine is trending down 4. Underlying history of coronary artery disease 5. Underlying history of pulmonary hypertension 6. Underlying history of valvular heart disease, with moderate to severe mitral regurgitation and moderate to severe tricuspid regurgitation on AVIVA of August 2018 7. Underlying history of atrial fibrillation maintained on Coumadin INR is in therapeutic range 8. Severe mitral and tricuspid regurg with severe pulmonary hypertension and elevated PA pressures seen on cardiac catheterization. Cardiothoracic surgeon has been consulted per cardiology I performed an examination of the patient and discussed their management with the Nurse Practitioner. I have reviewed the Nurse Practitioner's notes and agree with the documented findings and plan of care
--- NOTE | 2020-02-14 14:57 | P.GSCN ---
History of Present Illness Consult date: 02/14/20 Reason for Consult: coronary artery disease, mitral valve regurgitation, tricuspid valve regurgitation Requesting physician: Radha Diego History of present illness: This is a 79-year-old semi-active gentleman who follows on an outpatient basis with Dr. Christin Brink. He has a previous medical history of coronary artery disease with myocardial infarction in the past status post stenting, hypertension, hyperlipidemia, chronic and persistent atrial fibrillation on Coumadin for anticoagulation, sick sinus syndrome status post permanent pacemaker placement, ASD with closure, chronic kidney disease stage III, obstructive sleep apnea with home CPAP use, osteoarthritis, previous tobacco dependence, and family history of heart disease. For approximately the last year the patient has becoming increasing short of breath with activity associated with occasional intermittent left-sided chest pain and bilateral lower extremity edema, left greater than right. His dyspnea was getting worse and he was hospitalized here at [facility] in January 2020 and was found to have a right-sided pleural effusion. He underwent thoracentesis at that time with removal of 1.5 L inflammatory fluid. Transthoracic echocardiogram was completed at the time as well demonstrating low-normal left ventricular systolic function with EF 50-55%, right ventricle enlargement, biatrial enlargement, mild aortic valve regurgitation, mild mitral valve regurgitation, severe tricuspid valve regurgitation with severe pulmonary hypertension, and moderate pulmonic regurgitation. He reported improvement in his symptoms and was cleared for discharge to home with plans for follow-up. Upon follow-up with his primary care physician he began to experience shortness of breath again and returned to [facility] emergency room 2 days ago. Chest x-ray demonstrated cardiomyopathy with evidence of heart failure. EKG demonstrated atrial fibrillation. WBC 7.9, hemoglobin 12, platelet count 141, BUN 57, creatinine 1.92, INR 2.1, lactic acid 1.5, troponin negative 2, BNP 1790. He was admitted for evaluation and treatment with consultation placed to cardiology and pulmonology. Transesophageal echocardiogram was completed yesterday demonstrating preserved LV function, mild aortic insufficiency, severe eccentric mitral regurgitation, biatrial enlargement, severe tricuspid regurgitation with severe pulmonary hypertension, ASD closure device with residual left to right shunt, and no clot in the left atrial appendage. He was recommended to undergo heart catheterization which was completed today and which demonstrated calcified circumflex coronary artery with 70% stenosis, ostial LAD stenosis 70%, and RCA stenosis. Due to these findings consultation was placed to Dr. Ontiveros from cardiothoracic surgery for surgical recommendations. Review of Systems review of systems was completed and was negative except as noted - Cardiovascular Reports as per HPI, Reports chest pain, Reports dyspnea on exertion, Reports irregular heart beat, Reports leg edema, Reports orthopnea, Reports shortness of breath - Respiratory Reports as per HPI, Reports dyspnea Past Medical History Past Medical History: Atrial Fibrillation, Coronary Artery Disease (CAD), Heart Failure, COPD, Hyperlipidemia, Hypertension, Myocardial Infarction (OK), Osteoarthritis (OA), Pneumonia, Prostate Disorder, Renal Disease, Sleep Apnea/CPAP/BIPAP Additional Past Medical History / Comment(s): Pt recently admitted to [facility] on 01/18/20 with acute exacerbation CHF/R small pleural effusion with thoracentesis. Other hx: SSS with pacer, pulmonary HTN, JOSE JUAN with cpap, BPH, CKD, gout bilateral great toes, Last Myocardial Infarction Date:: 2001 History of Any Multi-Drug Resistant Organisms: None Reported Past Surgical History: Appendectomy, Heart Catheterization, Heart Catheterization With Stent, Orthopedic Surgery, Pacemaker Additional Past Surgical History / Comment(s): PCI with stents, pacemaker, p ercutaneous closure ASD/PFO, AVIVA, colonoscopy with bening polyps, R hand surgery for dupuytren's and injections to L hand for the same, ORIF R elbow and wrist as child. Past Anesthesia/Blood Transfusion Reactions: Motion Sickness Additional Past Anesthesia/Blood Transfusion Reaction / Comm: Pt has clausterphobia Date of Last Stent Placement:: 10/2012 Type of Cardiac Device: Permanent Pacemaker Device Placement Date:: 2016 Past Psychological History: No Psychological Hx Reported Smoking Status: Former smoker Past Alcohol Use History: None Reported Past Drug Use History: None Reported - Past Family History Father Additional Family Medical History / Comment(s): Father had heart problems. Mother Family Medical History: AFIB Additional Family Medical History / Comment(s): Mother had heart problems. Sister(s) Family Medical History: Cancer Additional Family Medical History / Comment(s): One sister with breast cancer and another had a pacer. Medications and Allergies Home Medications Medication Instructions Recorded Confirmed Type Ascorbic Acid [Vitamin C] 1,000 mg PO DAILY 07/21/14 02/12/20 History Atorvastatin [Lipitor] 40 mg PO HS 07/21/14 02/12/20 History Warfarin [Coumadin] 1 mg PO HS 07/21/14 02/12/20 History allopurinoL [Zyloprim] 300 mg PO DAILY 07/21/14 02/12/20 History Multivitamins, Thera [Multivitamin 1 tab PO DAILY 05/04/16 02/12/20 History (formulary)] amLODIPine BESYLATE [Norvasc] 10 mg PO HS #30 tablet 05/06/16 02/12/20 Rx Aspirin EC [Ecotrin Low Dose] 81 mg PO HS 08/22/18 02/12/20 History Loratadine [Claritin] 10 mg PO DAILY 08/22/18 02/12/20 History Potassium Chloride ER [K-Dur 20] 20 meq PO BID 09/22/18 02/12/20 History Metoprolol Tartrate [Lopressor] 25 mg PO DAILY 04/20/19 02/12/20 History Ferrous Sulfate [Iron (65 MG 325 mg PO DAILY 01/18/20 02/12/20 History Elemental)] Folate 40 mg PO DAILY 01/18/20 02/12/20 History Torsemide [Demadex] 20 mg PO BID tab 01/22/20 02/12/20 Rx Allergies Allergy/AdvReac Type Severity Reaction Status Date / Time No Known Allergies Allergy Verified 02/12/20 09:54 Surgical - Exam Vital Signs Temp Pulse Resp BP Pulse Ox 97.6 F 69 22 126/72 91 L 02/12/20 09:01 02/12/20 09:01 02/12/20 09:01 02/12/20 09:01 02/12/20 09:01 - General well developed, well nourished, no distress, no pain - Eyes PERRL, normal ocular movement - ENT multiple dental caries with fillings no hearing loss - Neck no masses, no bruits, trachea midline - Respiratory Lungs sounds clear but diminished in the bases bilaterally. Respirations even, nonlabored. Currently on 3 L nasal cannula with oxygen saturation 91%. No chest wall deformities. No clubbing or cyanosis present. - Cardiovascular S1, S2 present. Irregular rate and rhythm, controlled atrial fibrillation with occasional ventricular pacemaker spikes on telemetry. Palpable peripheral pulses bilaterally. No edema present. No calf pain or tenderness noted. No varicosities noted. - Abdomen Abdomen: soft, non tender, bowel sounds - Genitourinary deferred - Rectum deferred - Integumentary no rash, no growths - Neurologic normal coordination, normal sensation - Musculoskeletal normal posture - Psychiatric oriented to time, oriented to person, oriented to place, speech is normal, memory intact Results - Labs 02/14/20 09:30 02/14/20 09:30 Abnormal Lab Results - Last 24 Hours (Table) 02/14/20 02/14/20 02/14/20 Range/Units 06:25 06:25 09:30 RBC 3.64 L 3.38 L (4.30-5.90) m/uL Hgb 10.9 L 10.5 L (13.0-17.5) gm/dL Hct 35.2 L 32.1 L (39.0-53.0) % RDW 16.2 H 15.9 H (11.5-15.5) % Plt Count 136 L 123 L (150-450) k/uL PT 22.0 H (9.0-12.0) sec INR 2.3 H (<1.2) BUN (9-20) mg/dL Creatinine (0.66-1.25) mg/dL Total Protein (6.3-8.2) g/dL Albumin (3.5-5.0) g/dL 02/14/20 02/14/20 Range/Units 09:30 09:30 RBC (4.30-5.90) m/uL Hgb (13.0-17.5) gm/dL Hct (39.0-53.0) % RDW (11.5-15.5) % Plt Count (150-450) k/uL PT 23.8 H (9.0-12.0) sec INR 2.4 H (<1.2) BUN 45 H (9-20) mg/dL Creatinine 1.82 H (0.66-1.25) mg/dL Total Protein 6.0 L (6.3-8.2) g/dL Albumin 3.4 L (3.5-5.0) g/dL Diabetes panel 02/14/20 Range/Units 09:30 Sodium 140 (137-145) mmol/L Potassium 3.7 (3.5-5.1) mmol/L Chloride 106 (98-107) mmol/L Carbon Dioxide 28 (22-30) mmol/L BUN 45 H (9-20) mg/dL Creatinine 1.82 H (0.66-1.25) mg/dL Glucose 90 (74-99) mg/dL Calcium 8.6 (8.4-10.2) mg/dL AST 27 (17-59) U/L ALT 13 (4-49) U/L Alkaline Phosphatase 105 (38-126) U/L Total Protein 6.0 L (6.3-8.2) g/dL Albumin 3.4 L (3.5-5.0) g/dL Calcium panel 02/14/20 Range/Units 09:30 Calcium 8.6 (8.4-10.2) mg/dL Albumin 3.4 L (3.5-5.0) g/dL Pituitary panel 02/14/20 Range/Units 09:30 Sodium 140 (137-145) mmol/L Potassium 3.7 (3.5-5.1) mmol/L Chloride 106 (98-107) mmol/L Carbon Dioxide 28 (22-30) mmol/L BUN 45 H (9-20) mg/dL Creatinine 1.82 H (0.66-1.25) mg/dL Glucose 90 (74-99) mg/dL Calcium 8.6 (8.4-10.2) mg/dL Adrenal panel 02/14/20 Range/Units 09:30 Sodium 140 (137-145) mmol/L Potassium 3.7 (3.5-5.1) mmol/L Chloride 106 (98-107) mmol/L Carbon Dioxide 28 (22-30) mmol/L BUN 45 H (9-20) mg/dL Creatinine 1.82 H (0.66-1.25) mg/dL Glucose 90 (74-99) mg/dL Calcium 8.6 (8.4-10.2) mg/dL Total Bilirubin 0.9 (0.2-1.3) mg/dL AST 27 (17-59) U/L ALT 13 (4-49) U/L Alkaline Phosphatase 105 (38-126) U/L Total Protein 6.0 L (6.3-8.2) g/dL Albumin 3.4 L (3.5-5.0) g/dL - Imaging Chest x-ray: report reviewed, image reviewed EKG: image reviewed Assessment and Plan Assessment: 1. Multivessel calcified coronary artery disease 2. Severe eccentric mitral valve regurgitation 3. Severe tricuspid regurgitation with severe pulmonary hypertension 4. History of coronary artery disease with myocardial infarction status post stenting, last stent 2012 5. Hypertension 6. Hyperlipidemia 7. Chronic, persistent atrial fibrillation on Coumadin for anticoagulation, last dose 02/12/2020 8. Sick sinus syndrome status post permanent pacemaker placementn 2016 9. History of ASD with closure 10. Chronic kidney disease stage III 11. Obstructive sleep apnea with home CPAP use 12. Recent right-sided pleural effusion status post thoracentesis with removal of 1.5 L inflammatory fluid 13. Osteoarthritis 14. Previous tobacco dependence 15. Enlarged prostate 16. Family history of heart disease Plan: The patient was seen and examined at the bedside. Chart/diagnostics reviewed. The case will be discussed in detail with Dr. Ontiveros who will examine the patient. The usual course of open heart surgery was discussed with the patient, risks and benefits were reviewed, all questions were answered, the patient and indicated that they are interested in surgery and would consent if that is what is indicated. Preoperative testing will be initiated. Once all testing has been completed STS risk score will be calculated and discussed with the patient. Prior to any valve surgery dental clearance must be obtained, the patient indicated he does see a dentist every 6 months. Continue to maximize medical management including heart failure management. More recommendations to follow once Dr. Ontiveros has seen the patient's studies and all preoperative testing has been completed. Medical management of other comorbidities per primary care service. Thank you Dr. Diego for this consult. We look forward to working with you in the care of your patient. Time with Patient: Greater than 30
[2020-02-14 15:59] LABS: Appearance,Urine Clear (Clear); Bilirubin,Urine Negative (Negative); Blood,Urine Negative (Negative); Color,Urine Yellow; Glucose,Urine (UA) Negative (Negative); Ketones,Urine Negative (Negative); Leukocyte Esterase,Urine Negative (Negative); Nitrite,Urine Negative (Negative); PH, Urine 5.5 (5.0-8.0); Protein,Urine Negative (Negative); Specific Gravity,Urine 1.026 (1.001-1.035); Urobilinogen,Urine <2.0 mg/dL (<2.0)
--- NOTE | 2020-02-14 16:39 | US ---
EXAMINATION TYPE: US carotid duplex BILAT DATE OF EXAM: 02/14/2020 COMPARISON: NONE CLINICAL HISTORY: preop open heart. EXAM MEASUREMENTS: RIGHT: Peak Systolic Velocity (PSV) cm/sec ----- Right CCA: 45.5 ----- Right ICA: 59.7 ----- Right ECA: 57.5 ICA/CCA ratio: 1.3 RIGHT: End Diastole cm/sec ----- Right CCA: 8.5 ----- Right ICA: 20.6 ----- Right ECA: 3.4 LEFT: Peak Systolic Velocity (PSV) cm/sec ----- Left CCA: 49.8 ----- Left ICA: 61.0 ----- Left ECA: 48.8 ICA/CCA ratio: 1.2 LEFT: End Diastole cm/sec ----- Left CCA: 12.7 ----- Left ICA: 19.1 ----- Left ECA: 5.1 VERTEBRALS (direction of flow): Right Vertebral: Antegrade Left Vertebral: Antegrade Rhythm: Normal No significant stenosis seen. No elevated velocities. Mild to moderate bilateral plaque. IMPRESSION: No hemodynamically significant stenosis bilaterally. Criteria for Assigning % of Stenosis / Diameter reduction (Estimation based on the indirect measurements of the internal carotid artery velocities (ICA PSV). 1. Normal (no stenosis)=ICA PSV < 125 cm/s: ratio < 2.0: ICA EDV<40 cm/s. 2. Less than 50% stenosis=ICA PSV < 125 cm/s: ratio < 2.0: ICA EDV<40 cm/s. 3. 50 to 69% stenosis=ICA PSV of 125 to 230 cm/s: ration 2.0 ? 4.0: ICA EDV 40-100 cm/s. 4. Greater than 70% stenosis to near occlusion= ICA PSV > 230 cm/s: ratio > 4.0: ICA EDV > 100 cm/s. 5. Near occlusion= ICA PSV velocities may be low or undetectable: variable ratio and ICA EDV. 6. Total occlusion=unable to detect flow.
--- NOTE | 2020-02-14 16:47 | CC ---
CARDIAC CATHETERIZATION REPORT DATE OF SERVICE: 02/14/2020 PROCEDURE: Left heart catheterization and coronary angiography. PERFORMED BY: Dr. Tucker Diego. Moderate conscious sedation time was 17 minutes. Patient was administered Versed. Oxygen saturation, hemodynamics and EKG were monitored closely. CLINICAL INFORMATION: This patient has a history of CAD with previous multivessel PCI, PFO, ASD closure that was performed in the past percutaneously, chronic atrial fibrillation with sick sinus syndrome and underlying single-chamber pacemaker. He has been evaluated in the last few years with episodes of pulmonary hypertension and congestive heart failure. Last cardiac cath in August of this year revealed that his previously stented circumflex and RCA were patent. He was advised medical therapy. Because of recurrent hospitalizations, this time with clinical congestive heart failure, he had a transesophageal echo which revealed severe eccentric mitral regurgitation, persistent communication at the atrial level with [id number] shunt, and also tricuspid regurgitation that was severe. He would probably require surgical intervention of the valves, but prior to that he was advised repeat coronary angiography, given his symptoms of shortness of breath and chest tightness which could be anginal equivalents. I performed in 2001 stenting of a nondominant circumflex. Subsequently in 2010 and 2012 I performed stenting of his superdominant RCA. LAD was never intervened. He then had in December of 2012 a #25 Amplatzer device for his ASD closure. He was advised coronary angiography, but his INR was high; therefore procedure was performed from the right radial approach. PROCEDURE NOTE: Under local anesthesia and strict aseptic precautions, a 6-Faroese introducer was placed in the right radial artery. Using a JR4 and a JL3.5 catheters, I performed coronary angiography, and the same right catheter was used to check LV pressure, but LV gram was not performed. The sheath was taken out and TR band applied as per protocol. The saturation in the fingers of the right hand was 94%. Patient tolerated procedure well without complications. The findings and details and recommendations were discussed with the patient and I also talked to his by phone. CARDIAC CATHETERIZATION FINDINGS: The left ventricular end-diastolic pressure was 12 to 13 mmHg without any gradient across the aortic valve. CORONARY ANGIOGRAPHY FINDINGS: RIGHT CORONARY ARTERY: This is a superdominant vessel. The mid RCA was stented before in 2 areas. Both of these are widely patent, with no more than 35% to 40% narrowing. There is brisk GEE-3 flow and the RCA bifurcates into 2 branches, a large PLV and also a fairly good-caliber PDA, both of which have minor disease and neither of which are more than 50%. RCA therefore is a superdominant vessel with about a 40% to 50% mid lesion, but the stented segments are widely patent. LEFT MAIN CORONARY ARTERY: This is a long patent vessel. No significant disease. Mild calcification. Bifurcates into LAD and circumflex. LEFT ANTERIOR DESCENDING CORONARY ARTERY: This vessel had a 50% ostial lesion; now the lesion is about a 70% ostial lesion, mild to moderate calcification, following which the caliber of LAD improves and it supplies a fairly decent amount of myocardium. LAD gives off a good-sized diagonal branch in the mid portion and runs all the way to the apex, supplying a sizable amount of myocardium. Both LAD and diagonal are graftable, but there is moderate calcification. But the proximal ostial LAD has an eccentric 70% to 80% narrowing which represents a progression of disease. LEFT POSTERIOR CIRCUMFLEX CORONARY ARTERY: This vessel at its ostium is heavily calcified, has about a 70% to 80% narrowing, eccentric in nature, best seen in MCMANUS caudal projection. Beyond the area of calcified stenosis, there is a stent that is patent with good flow and there is a single obtuse marginal that runs laterally. This vessel appears to be graftable, but it is a nondominant circumflex with single obtuse marginal. Circumflex therefore has a proximal/ostial calcified stenosis of 75% to 80% with patent stent beyond that and a graftable obtuse marginal. Left ventriculogram was not performed. FINAL IMPRESSION: This patient has a right-dominant system. Previously stented RCA in the mid portion is patent. There is a lesion of about 50% between the stented segments and distal branches are free of significant disease. The filling pressures are normal. No gradient across the aortic valve. Left main is free of significant disease. LAD and circumflex both have ostial and proximal 70% to 80% calcified stenosis. The previously stented circumflex is patent. Both LAD and diagonal as well as circumflex marginal are graftable. RECOMMENDATIONS: I am recommending aortocoronary bypass surgery with graft to the LAD, diagonal and circumflex marginal. RCA grafting is a difficult decision with a 50% stenosis, but this has been unchanged for the last 2 years. The patient will require repair of mitral valve, possibly of the tricuspid valve also, and closure of the PFO because of residual flow through the percutaneous device with a [id number] shunt. I discussed my thoughts in detail with the patient and also with his by phone, and I will speak to Dr. Ontiveros, for whom I left a message. MMGOLDIE / WHITN: [id number] /
[2020-02-14] MEDS: FUROSEMIDE 10 MG/ML 4 ML VIAL IV SCH ×2 (21:04→22:24)
[2020-02-14] MEDS: amLODIPine 10 MG TAB PO SCH (21:05)
[2020-02-14] MEDS: ATORVASTATIN 40 MG TAB PO SCH (22:17)
[2020-02-14] MEDS: ASPIRIN 81 MG PO SCH (22:17)
[2020-02-14] MEDS: BUMETANIDE 0.25 MG/ML 4 ML VIAL IVP SCH (23:04)
[2020-02-15] MEDS: SODIUM CHLORIDE 0.9% 1,000 ML IV SCH ×2 (06:21→08:22)
[2020-02-15] MEDS: LORATADINE 10 MG TAB PO SCH (08:21)
[2020-02-15] MEDS: POTASSIUM CHLORIDE ER 20 MEQ TAB.ER PO SCH ×2 (08:21→21:41)
[2020-02-15] MEDS: FOLIC ACID 1 MG TAB PO SCH (08:21)
[2020-02-15] MEDS: allopurinoL 300 MG TAB PO SCH (08:21)
[2020-02-15] MEDS: ASCORBIC ACID 500 MG TAB PO SCH (08:21)
[2020-02-15] MEDS: FERROUS SULFATE 325 MG TAB PO SCH (08:21)
[2020-02-15] MEDS: METOPROLOL TARTRATE 25 MG TAB PO SCH (08:21)
[2020-02-15] MEDS: MULTIVITAMINS, THERA 1 EACH TAB PO SCH (08:21)
[2020-02-15] MEDS: BUMETANIDE 0.25 MG/ML 4 ML VIAL IVP SCH (08:21)
[2020-02-15 08:41] LABS: HCT 34.4 % (39.0-53.0); HGB 10.8 gm/dL (13.0-17.5); Hypochromasia Moderate; MCH 30.1 pg (25.0-35.0); MCHC 31.5 g/dL (31.0-37.0); MCV 95.7 fL (80.0-100.0); Mean Platelet Volume 8.1; Platelet Count 134 k/uL (150-450); WBC 7.5 k/uL (3.8-10.6)
[2020-02-15 08:54] LABS: INR 2.1 (<1.2); Prothrombin Time 20.6 sec (9.0-12.0)
[2020-02-15 08:58] LABS: Albumin 3.6 g/dL (3.5-5.0); Calcium 8.6 mg/dL (8.4-10.2); Magnesium 2.2 mg/dL (1.6-2.3); Total Bilirubin 0.9 mg/dL (0.2-1.3); Total Protein 6.5 g/dL (6.3-8.2)
--- NOTE | 2020-02-15 09:13 | P.PN ---
Subjective Progress Note Date: 02/15/20 Principal diagnosis: Multivessel calcified coronary artery disease, severe eccentric mitral valve regurgitation, severe tricuspid regurgitation with severe pulmonary hypertension. Previous medical history of coronary artery disease with myocardial infarction status post stenting, hypertension, hyperlipidemia, chronic, persistent atrial fibrillation on Coumadin for anticoagulation, sick sinus syndrome status post permanent pacemaker placement 2016, ASD with closure, chronic kidney disease stage III, obstructive sleep apnea with home CPAP use, recent right-sided pleural effusion status post thoracentesis with removal of 1.5 L inflammatory fluid, osteoarthritis, previous tobacco dependence, enlarged prostate, family history of heart disease The patient is currently sitting up in the recliner on the cardiac stepdown unit in no acute distress. Denies any chest pain, states shortness of breath has improved although patient is still on oxygen with increase in oxygen req uirements since yesterday. Dr. Ontiveros did meet with the patient yesterday afternoon and was on conference call with the patient's . He did discuss surgical revascularization as well as repair versus replacement of the mitral and tricuspid valves. He did request preoperative testing to be completed to better stratify the patient's risk for surgery as he does appear to be high risk due to multiple comorbidities. The patient and his were in complete understanding and agreement. No new concerns. Objective - Vital Signs Vital signs: Vital Signs Temp 97.7 F 02/15/20 07:50 Pulse 72 02/15/20 07:50 Resp 18 02/15/20 07:50 BP 134/60 02/15/20 07:50 Pulse Ox 91 L 02/15/20 07:50 Intake & Output 02/14/20 02/15/20 02/15/20 18:59 06:59 18:59 Intake Total 1503 270 Output Total 300 Balance 1203 270 Weight 72.9 kg Intake: IV 663 10 Invasive Line 1 20 Invasive Line 2 20 10 Sodium Chloride 0.9% 1, 423 000 ml In Empty Bag 1 bag @ 1 ML/KG/HR 70.5 mls/hr IV .[id number] ONE Rx#: [id number] Oral 840 260 Output: Urine 300 Other: Voiding Method Toilet Toilet Toilet # Voids 1 - Constitutional General appearance: Present: cooperative, no acute distress - Respiratory Details: Lungs sounds diminished bilaterally with expiratory wheezes present posteriorly. Respirations even, nonlabored. Currently on 4 L nasal cannula with oxygen saturation 91%. Able to achieve 1000 mL on his incentive spirometry. - Cardiovascular Details: S1, S2 present. Irregular rate and rhythm, controlled atrial fibrillation with occasional ventricular pacemaker spikes on telemetry. Palpable peripheral pulses bilaterally. No edema present. No calf pain or tenderness noted. - Gastrointestinal Gastrointestinal Comment(s): Abdomen soft, nontender, nondistended. Active bowel sounds present 4 quadrants. Tolerating diet. - Genitourinary Genitourinary Comment(s): continues to void - Integumentary Integumentary Comment(s): skin is warm and dry with evidence of good perfusion - Neurologic Neurologic: Present: CNII-XII intact - Musculoskeletal Musculoskeletal: Present: strength equal bilaterally - Psychiatric Psychiatric: Present: A&O x's 3, appropriate affect, intact judgment & insight - Allied health notes Allied health notes reviewed: nursing - Labs CBC & Chem 7: 02/15/20 06:53 02/15/20 06:53 Labs: Abnormal Lab Results - Last 24 Hours (Table) 02/14/20 02/14/20 02/14/20 Range/Units 06:25 06:25 09:30 RBC 3.64 L 3.38 L (4.30-5.90) m/uL Hgb 10.9 L 10.5 L (13.0-17.5) gm/dL Hct 35.2 L 32.1 L (39.0-53.0) % RDW 16.2 H 15.9 H (11.5-15.5) % Plt Count 136 L 123 L (150-450) k/uL PT 22.0 H (9.0-12.0) sec INR 2.3 H (<1.2) BUN (9-20) mg/dL Creatinine (0.66-1.25) mg/dL Total Protein (6.3-8.2) g/dL Albumin (3.5-5.0) g/dL 02/14/20 02/14/20 02/15/20 Range/Units 09:30 09:30 06:53 RBC (4.30-5.90) m/uL Hgb (13.0-17.5) gm/dL Hct (39.0-53.0) % RDW (11.5-15.5) % Plt Count (150-450) k/uL PT 23.8 H 20.6 H (9.0-12.0) sec INR 2.4 H 2.1 H (<1.2) BUN 45 H (9-20) mg/dL Creatinine 1.82 H (0.66-1.25) mg/dL Total Protein 6.0 L (6.3-8.2) g/dL Albumin 3.4 L (3.5-5.0) g/dL 02/15/20 02/15/20 Range/Units 06:53 06:53 RBC 3.60 L (4.30-5.90) m/uL Hgb 10.8 L (13.0-17.5) gm/dL Hct 34.4 L (39.0-53.0) % RDW 16.0 H (11.5-15.5) % Plt Count 134 L (150-450) k/uL PT (9.0-12.0) sec INR (<1.2) BUN 40 H (9-20) mg/dL Creatinine 1.52 H (0.66-1.25) mg/dL Total Protein (6.3-8.2) g/dL Albumin (3.5-5.0) g/dL Microbiology - Last 24 Hours (Table) 02/14/20 15:35 Nasal Screen MRSA/MSSA - Preliminary Nasopharyngeal Swab - Imaging and Cardiology Chest x-ray: image reviewed results of carotid Doppler reviewed Assessment and Plan Assessment: 1. Multivessel calcified coronary artery disease 2. Severe eccentric mitral valve regurgitation 3. Severe tricuspid regurgitation with severe pulmonary hypertension 4. History of coronary artery disease with myocardial infarction status post stenting, last stent 2012 5. Hypertension 6. Hyperlipidemia 7. Chronic, persistent atrial fibrillation on Coumadin for anticoagulation, last dose 02/12/2020 8. Sick sinus syndrome status post permanent pacemaker placement 2016 9. History of ASD with closure 10. Chronic kidney disease stage III 11. Obstructive sleep apnea with home CPAP use 12. Recent right-sided pleural effusion status post thoracentesis with removal of 1.5 L inflammatory fluid 13. Osteoarthritis 14. Previous tobacco dependence 15. Enlarged prostate 16. Family history of heart disease Plan: 1. Continue to maximize medical therapy with aspirin, statin, beta shila, diuresis 2. Wean O2 as tolerated. Encourage the spirometry is 10 times every hour while awake 3. Increase activity as tolerated 4. Continue to reinforce preoperative teaching 5. Pulmonary function test to be completed today. Once complete will calculate STS risk score 6. The case was discussed between Dr. Diego and Dr. Naylor, Dr. Naylor will see the patient tomorrow 7. Medical management of other comorbidities per primary care service 8. More recommendations to follow Time with Patient: Greater than 30
--- NOTE | 2020-02-15 12:52 | P.PN ---
Subjective HISTORY OF PRESENTING ILLNESS This is a pleasant 79-year-old male past medical history significant for coronary artery disease status post PCI of RCA and circumflex, chronic persistent atrial fibrillation on long-term anticoagulation, sick sinus syndrome status post permanent pacemaker implantation, pulmonary hypertension, diastolic heart failure, history of PFO status post closure and hypertension. AVIVA revealed severe mitral regurgitation, severe tricuspid regurgitation, severe pulmonary hypertension with an RVSP of 70, biatrial enlargement presence of PFO closure device with residual shunt and preserved LV systolic function. He underwent cardiac catheterization revealing previously stented RCA in the midportion is patent, a lesion of about 50% between the stented segment in the distal branches, left main free of significant disease, LAD and circumflex both have ostial and proximal 70-80% calcified stenosis, the previously stented circumflex is patent. He has been seen and evaluated by Dr. Ontiveros who is recommendingpreo perative testing prior to risk stratification. Dr. Diego has also spoken with Dr. Naylor who will evaluate the patient tomorrow for a second opinion. He is seen and examined sitting up in the chair in no acute distress. Overall he states his breathing is stable at rest but he does continue to have exertional dyspnea that is mild. He has no chest pain, dizziness or palpitations. Blood pressure 134/60 heart rate 72 afebrile maintaining oxygen saturation on nasal cannula. Laboratory data reviewed, WBC 7.5, hemoglobin 10.8, platelets 134, INR 2.1, sodium 138, potassium 4.0, creatinine 1.52 and magnesium 2.2. Currentlt aintained on aspirin 81 mg daily, atorvastatin 40 mg at bedtime, Bumex 1 mg IV push daily, Lopressor 25 mg daily end amlodipine 10 mg daily. PHYSICAL EXAMINATION CONSTITUTIONAL: No apparent distress. HEENT: Head is normocephalic. Pupils are equal, round. Sclerae anicteric. Mucous membranes of the mouth are moist. No JVD. No carotid bruit. CHEST EXAMINATION: Lungs are clear to auscultation. No chest wall tenderness is noted on palpation or with deep breathing. HEART EXAMINATION: Irregular rate and rhythm. S1, S2 heard. Systolic ejection murmur at the left sternal border and apex, no gallops or rub. EXTREMITIES: 2+ peripheral pulses, no lower extremity edema and no calf tenderness. ASSESSMENT Exertional dyspnea secondary to progression of underlying CAD, severe valvular heart disease and pulmonary hypertension Chronic diastolic heart failure, clinically euvolemic. Lungs are clear, no lower extremity swelling and normal NTproBNP Severe pulmonary hypertension Valvular heart disease, moderate-severe MR and moderate-sever TR on AVIVA 08/2018 Chronic persistent atrial fibrillation on long-term anticoagulation with Coumadin Sick sinus syndrome status post permanent pacemaker implantation Hypertension Dyslipidemia Coronary artery disease status post PCI Chronic kidney disease PLAN Add small dose of oral nitrate. Resume coumadin tonight at 0.5 mg. Follow PT/INR in the morning. Pt will be evaluated by Dr. Naylor tomorrow. Nurse Practitioner note has been reviewed, I agree with a documented findings and plan of care. Patient was seen and examined. Objective - Vital Signs Vital signs: Vital Signs Temp 97.7 F 02/15/20 07:50 Pulse 72 02/15/20 07:50 Resp 18 02/15/20 07:50 BP 134/60 02/15/20 07:50 Pulse Ox 91 L 02/15/20 07:50 Intake & Output 02/14/20 02/15/20 02/15/20 18:59 06:59 18:59 Intake Total 1503 810 Output Total 300 500 Balance 1203 310 Weight 72.9 kg Intake: IV 663 10 Invasive Line 1 20 Invasive Line 2 20 10 Sodium Chloride 0.9% 1, 423 000 ml In Empty Bag 1 bag @ 1 ML/KG/HR 70.5 mls/hr IV .[id number] ONE Rx#: [id number] Oral 840 800 Output: Urine 300 500 Other: Voiding Method Toilet Toilet Toilet # Voids 1 - Labs CBC & Chem 7: 02/15/20 06:53 02/15/20 06:53 Labs: Abnormal Lab Results - Last 24 Hours (Table) 02/15/20 02/15/20 02/15/20 Range/Units 06:53 06:53 06:53 RBC 3.60 L (4.30-5.90) m/uL Hgb 10.8 L (13.0-17.5) gm/dL Hct 34.4 L (39.0-53.0) % RDW 16.0 H (11.5-15.5) % Plt Count 134 L (150-450) k/uL PT 20.6 H (9.0-12.0) sec INR 2.1 H (<1.2) BUN 40 H (9-20) mg/dL Creatinine 1.52 H (0.66-1.25) mg/dL Microbiology - Last 24 Hours (Table) 02/14/20 15:35 Nasal Screen MRSA/MSSA - Preliminary Nasopharyngeal Swab
[2020-02-15] MEDS: ISOSORBIDE MONONITRATE ER 30 MG TAB.ER.24H PO SCH (13:24)
--- NOTE | 2020-02-15 14:01 | PN ---
PROGRESS NOTE Patient is seen for followup for chronic kidney disease and acute kidney injury. He did have his cardiac catheterization and coronary artery bypass surgery has been recommended. PHYSICAL EXAMINATION: Today, patient is comfortable. He denies any significant complaints. Blood pressure is 134/60, heart rate 72 per minute, he is afebrile. Examination of the heart S1, S2. Examination of the lungs, bilateral breath sounds are heard. Abdomen is soft, nontender. Examination of lower extremities shows trace edema bilaterally. Chronic skin changes noted. [employer] exam grossly intact. LABS: Show sodium 138, potassium 4.0, chloride 105, CO2 is 22, BUN 40, serum creatinine 1.52, hemoglobin 10.8 g/dL. ASSESSMENT: 1. Chronic kidney disease, NKF stage IV, baseline creatinine 1.5 to 1.6. 2. Acute kidney injury, most likely acute tubular necrosis, currently improved, status post IV hydration. 3. Mild volume overload, status post IV fluids due to cardiac cath. I will discontinue the IV fluids. Continue with a small dose of Bumex and switch to oral Demadex tomorrow. 4. Moderate to severe mitral and tricuspid regurgitation with PFO. 5. Chronic kidney disease stage 3 baseline creatinine 1.5-1.6, secondary to nephrosclerosis. 6. Coronary artery disease, being considered for coronary artery bypass surgery. PLAN: Discontinue IV fluids. Continue with IV Bumex for another day and switch to Demadex tomorrow. MMODL / IJN: [id number] /
--- NOTE | 2020-02-15 14:24 | P.PN ---
Subjective Progress Note Date: 02/15/20 Principal diagnosis: Shortness of breath This is a 79-year-old patient of Dr. Mojica, who we have previously seen in consultation in January, when the patient was hospitalized for dyspnea related to acute exacerbation of chronic congestive heart failure, and patient had bilateral pleural effusions, right greater than left, and underwent a right- sided thoracentesis on 01/21/[address] Kirkpatrick would removal of 1.5 L of turbid dark yellowish pleural fluid which turned out to be transudative in nature and consistent with the patient's presentation and acute exacerbation of diastolic heart failure. patient had an echocardiogram on 2019 which showed mild concentric LVH, with the EF of 50-55%, mild aortic regurgitation, mild mitral regurgitation, severe tricuspid regurgitation and severe pulmonary hypertension with PA pressure of 59.5 mmHg, there was moderate pulmonic regurgitation. Patient has a known history of chronic A. fib on Coumadin, past medical history of coronary artery disease with stents, sick sinus syndrome status post permanent pacemaker implantation, previous history of ASD status post percutaneous closure, COPD, hypertension, hyperlipidemia, previous history of pneumonia, sleep apnea on CPAP. on 02/12/2020 patient came into the emergency department for evaluation of progressive dyspnea, for the past 3 days, exertional dyspnea, patient denied any chest pain, no fever, chills, no significant cough or phlegm production, no nausea vomiting, no chills, no sweats, history is x-ray showed cardiomegaly with perihilar and interstitial ch anges and a small pleural effusions. 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 lab work showed the no evidence of leukocytosis, white blood cell, 7.9, hemoglobin is 12, INR is therapeutic at 2.1, electrolytes were unremarkable, BUN is 57 creatinine is 1.9. Troponins were negative 2, at less than 0.012, proBNP is 1790. patient had a transesophageal echocardiogram today which showed a severe mitral regurgitation which was eccentric, severe tricuspid regurgitation, and severe pulmonary hypertension with PA pressure of 70, biatrial enlargement, presence of PFO closure device with residual shunt, and preserved LV function, and no evidence of clot in the left atrial appendage. patient appears to be calm and comfortable currently, he is on 4 L of oxygen his pulse ox of 95%, denies any chest pain, he is afebrile, he was started on Demadex. Cardiology is following. The patient is seen today 02/14/2020 in follow-up on the selective care unit. He is currently awake and alert in no acute distress. Resting quite comfortably in bed. He is maintaining O2 saturations in the low 90s on 4 L/m per nasal cannula. He is afebrile. Hemodynamically stable. He did undergo AVIVA yesterday that revealed severe eccentric mitral regurgitation and severe tricuspid regurgitation and patent foramen ovale. The plan is for cardiac catheterization today. White count 7.4. Hemoglobin 10.5. INR 2.4. Sodium 140. Potassium 3.7. Creatinine 1.82. Remains on IV diuretics. The patient is seen today 02/15/2020 in follow-up on the selective care unit. He is currently sitting up in a chair at the bedside. Awake and alert in no acute distress. Denies any worsening shortness of breath, cough or congestion. Maintaining O2 saturation in low 90s on 4 L/m per nasal cannula. He is afebrile. Hemodynamically stable. He did undergo cardiac catheterization yesterday that revealed a previously stented RCA in the midportion is patent. There is a lesion of 50% between the site stented segments and distal branches. LAD and circumflex both have ostial and proximal 70-80% calcified stenosis. Previously stented circumflex was patent. Coronary artery bypass grafting is recommended. The patient will also require repair of mitral valve and possibly tricuspid valve and closure of a PFO. Cardiothoracic services are on the case. Carotid Dopplers revealed no significant stenosis bilaterally. Preoperative FEV1 value 37% of predicted. Objective - Vital Signs Vital signs: Vital Signs Temp 97.7 F 02/15/20 07:50 Pulse 72 02/15/20 07:50 Resp 18 02/15/20 07:50 BP 134/60 02/15/20 07:50 Pulse Ox 91 L 02/15/20 07:50 Intake & Output 02/14/20 02/15/20 02/15/20 18:59 06:59 18:59 Intake Total 1503 930 Output Total 300 500 Balance 1203 430 Weight 72.9 kg Intake: IV 663 10 Invasive Line 1 20 Invasive Line 2 20 10 Sodium Chloride 0.9% 1, 423 000 ml In Empty Bag 1 bag @ 1 ML/KG/HR 70.5 mls/hr IV .[id number] ONE Rx#: [id number] Oral 840 920 Output: Urine 300 500 Other: Voiding Method Toilet Toilet Toilet # Voids 1 - Exam GENERAL EXAM: Alert, very pleasant, 79-year-old male patient, on 4 L of oxygen with pulse ox of 91%, comfortable in no apparent distress. HEAD: Normocephalic/atraumatic. EYES: Normal reaction of pupils, equal size. Conjunctiva pink, sclera white. NOSE: Clear with pink turbinates. THROAT: No erythema or exudates. NECK: No masses, no JVD, no thyroid enlargement, no adenopathy. CHEST: No chest wall deformity. Symmetrical expansion. LUNGS: Equal air entry with faint crackles in the bilateral posterior bases. CVS: Regular rate and rhythm, normal S1 and S2, no gallops, no murmurs, no rubs ABDOMEN: Soft, nontender. No hepatosplenomegaly, normal bowel sounds, no guarding or rigidity. EXTREMITIES: No clubbing, no edema, no cyanosis, 2+ pulses and upper and lower extremities. MUSCULOSKELETAL: Muscle strength and tone normal. SPINE: No scoliosis or deformity SKIN: No rashes CENTRAL NERVOUS SYSTEM: Alert and oriented -3. No focal deficits, tone is normal in all 4 extremities. PSYCHIATRIC: Alert and oriented -3. Appropriate affect. Intact judgment and insight. - Labs CBC & Chem 7: 02/15/20 06:53 02/15/20 06:53 Labs: Abnormal Lab Results - Last 24 Hours (Table) 02/15/20 02/15/20 02/15/20 Range/Units 06:53 06:53 06:53 RBC 3.60 L (4.30-5.90) m/uL Hgb 10.8 L (13.0-17.5) gm/dL Hct 34.4 L (39.0-53.0) % RDW 16.0 H (11.5-15.5) % Plt Count 134 L (150-450) k/uL PT 20.6 H (9.0-12.0) sec INR 2.1 H (<1.2) BUN 40 H (9-20) mg/dL Creatinine 1.52 H (0.66-1.25) mg/dL Microbiology - Last 24 Hours (Table) 02/14/20 15:35 Nasal Screen MRSA/MSSA - Preliminary Nasopharyngeal Swab Assessment and Plan Assessment: 1 Acute on chronic dyspnea related to known history of valvular heart disease, severe pulmonary hypertension, and mild exacerbation of diastolic CHF. Transesophageal echocardiogram reveals severe eccentric mitral care dictation and severe tricuspid regurgitation and patent foramen ovale with presence of PFO closure device in residual shunt. Cardiac catheterization revealed significant coronary artery disease and the plan is for bypass grafting with mitral valve repair possibly tricuspid repair and closure of patent foramen ovale. 2 Small bilateral pleural effusions, too small to drain, with recent history of right-sided thoracentesis with removal 1.5 L of pleural fluid which was transudate in nature 3 History of chronic atrial fibrillation on Coumadin 4 History of ASD status post percutaneous repair 5 Severe mitral and tricuspid regurgitation, with severe pulmonary hypertension with PA pressure of 70 mmHg 6 History of sick sinus syndrome, status post pacemaker implantation 7 History of sleep apnea on CPAP 8 Hypertension 9 Hyperlipidemia 10 History of COPD 11 Previous history of pneumonia 12 Previous history of smoking 13 History of coronary artery disease with previous stenting 14 Chronic kidney disease stage III Plan: The patient was seen and evaluated by Dr. Mcdonnell Cardiac catheterization results reviewed Plan is for possible revascularization and valve repair, PFO closure FEV1 value 37% of predicted Will need full PFT and further evaluation by pulmonary prior to surgical clearance We'll continue the current treatment plan Continue to follow I, the cosigning physician, performed a history & physical examination of the patient. Lungs sounds with crackles in the bilateral posterior bases. Maintaining good O2 saturations in the 90s on 4 L/m per nasal cannula. I discussed the assessment and plan of care with my nurse practitioner, Mable nj. I attest to the above note as dictated by her.
[2020-02-15 16:30] LABS: Hepatitis A Antibody IgM Non-Reactive (Non-Reactive); Hepatitis B Core IgM Non-Reactive (Non-Reactive); Hepatitis B Surface Antigen Non-Reactive (Non-Reactive); Hepatitis C IgG Antibody Non-Reactive (Non-Reactive)
--- NOTE | 2020-02-15 17:05 | P.PN ---
Subjective Progress Note Date: 02/15/20 Von Mascorro, is a 79-year-old male, who presented to [facility] emergency room with a chief complaint of worsening shortness of breath, patient had recent hospitalization with similar complaint at that time he had right sided pleural effusion and underwent thoracentesis, he was discharged home and was followed as outpatient by pulmonary and cardiology, his condition started to worsen again about 5 days ago when he started having severe shortness of breath and decided today to come to emergency room. Patient was evaluated in emergency room his temperature on presentation was 97.6 pulse 69 respiration 22 blood pressure 126/72 pulse ox 91% on room air, his white blood count was 7.9 hemoglobin 12.1 platelet count 141 INR was therapeutic at 2.1 BUN 57 creatinine 1.9 to glucose 173 alkaline phosphatase 128 and troponin level less than 0.12 EKG done in the emergency room revealed atrial fibrillation, chest x-ray revealed evidence of cardiomegaly with perihilar and interstitial changes and small effusions bilaterally suggestive of mild CHF. Patient was admitted to telemetry floor cardiology consultation and pulmonary consultation was requested. Patient has a known history of chronic atrial fibrillation maintained on Coumadin he also has a known history of coronary artery disease with previous history of angioplasty and stent placement in the past, he has known history of valvular heart disease and history of pulmonary hypertension, he has a known history of sick sinus syndrome status post pacemaker placement he has a known history of ASD status post percutaneous closure he has known history of hypertension, hyperlipidemia, history of COPD, history of obstructive sleep apnea maintained on CPAP, and history of previous episodes of pneumonia in the past. On review of systems patient is alert and oriented 3 in no apparent distress there is no fever or chills no headache or dizziness he is complaining of shortness of breath with any activity he has occasional cough with clear sputum production he has some episodes of pain and pressure in the left side of the chest that last for few seconds at that time otherwise he denies any complaints no nausea or vomiting no abdominal pain no diarrhea no blood in the stools no burning with urination no frequency or urgency and no hematuria. on 02/13/2020 patient was seen and examined on the medical floor he is alert and oriented 3 in no apparent distress he is still complaining of shortness of breath with any activity otherwise he denies any complaints there is no fever or chills no headache or dizziness no chest pain no palpitation no cough no nausea or vomiting no abdominal pain no diarrhea no blood in the stools oh burning with urination no frequency or urgency no hematuria patient underwent AVIVA today aw aiting further recommendation from cardiology, BUN and creatinine are elevated Will consult nephrology. On 02/14/2020 patient is alert and oriented 3 status post cardiac catheterization today. Per nursing staff heart catheterization revealed multivessel disease along with severe mitral and tricuspid regurg with severe pulmonary hypertension. Cardiothoracic surgery has been consulted for evalu ation. Creatinine is trending down to 1.82 and bun 45. Nephrology services are following. Patient remains on IV Lasix. At this time patient denies chest pain or shortness of breath. Patient denies nausea vomiting or diarrhea. Patient denies any urinary burning or frequency On 02/15/2020 patient was seen and examined on the telemetry floor he is alert and oriented 3 in no apparent distress he is complaining of shortness of breath with any activity otherwise he denies any complaints there is no fever or chills no headache or dizziness no chest pain no cough no palpitation no nausea or v omiting no abdominal pain no diarrhea no blood in the stools, no burning with urination no frequency or urgency and no hematuria, at this time patient is being evaluated by cardiovascular surgery, awaiting decision regard to intervention. Medication reviewed will follow closely. Patient is having a nosebleed Will hold Coumadin today and recheck INR in a.m.. Objective - Vital Signs Vital signs: Vital Signs Temp 97.6 F 02/15/20 15:19 Pulse 68 02/15/20 15:19 Resp 18 02/15/20 15:19 BP 145/66 02/15/20 15:19 Pulse Ox 92 L 02/15/20 15:19 Intake & Output 02/14/20 02/15/20 02/15/20 18:59 06:59 18:59 Intake Total 1503 1250 Output Total 300 500 Balance 1203 750 Weight 72.9 kg Intake: IV 663 30 Invasive Line 1 20 Invasive Line 2 20 30 Sodium Chloride 0.9% 1, 423 000 ml In Empty Bag 1 bag @ 1 ML/KG/HR 70.5 mls/hr IV .[id number] ONE Rx#: [id number] Oral 840 1220 Output: Urine 300 500 Other: Voiding Method Toilet Toilet Toilet # Voids 1 - Exam In general patient is alert and oriented 3 in no distress HEENT head normocephalic and atraumatic Neck is supple no JVD no goiter no lymphadenopathy Chest exam reveals a few scattered rhonchi no wheezing Cardiac exam reveals regular heart sounds no gallops no murmurs Abdomen is soft nontender no organomegaly with normal bowel sounds Extremity exam reveals no edema no cyanosis or clubbing Neurological examination reveals no gross focal deficit - Labs CBC & Chem 7: 02/15/20 06:53 02/15/20 06:53 Labs: Abnormal Lab Results - Last 24 Hours (Table) 02/15/20 02/15/20 02/15/20 Range/Units 06:53 06:53 06:53 RBC 3.60 L (4.30-5.90) m/uL Hgb 10.8 L (13.0-17.5) gm/dL Hct 34.4 L (39.0-53.0) % RDW 16.0 H (11.5-15.5) % Plt Count 134 L (150-450) k/uL PT 20.6 H (9.0-12.0) sec INR 2.1 H (<1.2) BUN 40 H (9-20) mg/dL Creatinine 1.52 H (0.66-1.25) mg/dL Microbiology - Last 24 Hours (Table) 02/14/20 15:35 Nasal Screen MRSA/MSSA - Preliminary Nasopharyngeal Swab Assessment and Plan Plan: 1. Worsening shortness of breath, cause is not entirely clear at this time, pulmonary consultation angina cardiology consultation are requested 2. Episodes of chest pain, no evidence of acute coronary syndrome at this time, troponin level so far are negative, possible stress test during this admission per cardiology. 3. Underlying history of chronic kidney disease 4. Underlying history of coronary artery disease 5. Underlying history of pulmonary hypertension 6. Underlying history of valvular heart disease, with moderate to severe mitral regurgitation and moderate to severe tricuspid regurgitation on AVIVA of August 2018 7. Underlying history of atrial fibrillation maintained on Coumadin INR is in therapeutic range. 8. Nosebleed Will hold Coumadin today and recheck INR tomorrow Awaiting decision from cardiovascular surgery in regard to timing of intervention At this time patient was seen and examined Home medications reviewed and reordered Consultation for pulmonary and cardiology were initiated Will follow closely
[2020-02-15] MEDS ORDERED: WARFARIN 0.5 MG TAB PO ONE (18:00)
[2020-02-15] MEDS: amLODIPine 10 MG TAB PO SCH (21:41)
[2020-02-15] MEDS: ASPIRIN 81 MG PO SCH (21:41)
[2020-02-15] MEDS: ATORVASTATIN 40 MG TAB PO SCH (21:41)
[2020-02-15] MEDS ORDERED: BUMETANIDE 0.25 MG/ML 4 ML VIAL IVP SCH (22:00)
[2020-02-15 22:13] LABS: Hemoglobin A1C 5.4 % (4.0-6.0)
[2020-02-16 08:12] LABS: INR 1.7 (<1.2); Prothrombin Time 16.9 sec (9.0-12.0)
--- NOTE | 2020-02-16 09:51 | P.PN ---
Subjective HISTORY OF PRESENTING ILLNESS This is a pleasant 79-year-old male past medical history significant for coronary artery disease status post PCI of RCA and circumflex, chronic persistent atrial fibrillation on long-term anticoagulation, sick sinus syndrome status post permanent pacemaker implantation, pulmonary hypertension, diastolic heart failure, history of PFO status post closure and hypertension. AVIVA revealed severe mitral regurgitation, severe tricuspid regurgitation, severe pulmonary hypertension with an RVSP of 70, biatrial enlargement presence of PFO closure device with residual shunt and preserved LV systolic function. He underwent cardiac catheterization revealing previously stented RCA in the midportion is patent, a lesion of about 50% between the stented segment in the distal branches, left main free of significant disease, LAD and circumflex both have ostial and proximal 70-80% calcified stenosis, the previously stented circumflex is patent. He is seen and examined sitting up in distress. He states his breat flavio is stable with no worsening since admission but also no real improvement. He denies chest pain, dizziness or palpitations. He did have a brief episode of epistaxis yesterday however he states he has just recently at home from time to time. His p.m. Coumadin dose was held by the primary care physician. Laboratory data reviewed, INR 1.7. Blood pressure 139/65 heart rate 77 afebrile maintaining oxygen saturation on nasal cannula. Currently maintained on amlodipine 10 mg at bedtime, aspirin 81 mg daily, atorvastatin 40 mg daily, Bumex 1 mg IV push daily, Imdur 30 mg daily, metoprolol 25 mg daily and oral potassium. PHYSICAL EXAMINATION CONSTITUTIONAL: No apparent distress. HEENT: Head is normocephalic. Pupils are equal, round. Sclerae anicteric. Mucous membranes of the mouth are moist. No JVD. No carotid bruit. CHEST EXAMINATION: Lungs are clear to auscultation. No chest wall tenderness is noted on palpation or with deep breathing. HEART EXAMINATION: Irregular rate and rhythm. S1, S2 heard. Systolic ejection murmur at the left sternal border and apex, no gallops or rub. EXTREMITIES: 2+ peripheral pulses, no lower extremity edema and no calf tenderness. ASSESSMENT Exertional dyspnea secondary to progression of underlying CAD, severe valvular heart disease and pulmonary hypertension Chronic diastolic heart failure, clinically euvolemic. Lungs are clear, no lower extremity swelling and normal NTproBNP Severe pulmonary hypertension Valvular heart disease, moderate-severe MR and moderate-sever TR on AVIVA 08/2018 Chronic persistent atrial fibrillation on long-term anticoagulation with Coumadin Sick sinus syndrome status post permanent pacemaker implantation Hypertension Dyslipidemia Coronary artery disease status post PCI Chronic kidney disease PLAN Resume coumadin tonight at 1 mg. Follow PT/INR in the morning. Pt will be evaluated by Dr. Naylor today for second opinion. Further recommendations to follow based upon his recommendation. Nurse Practitioner note has been reviewed, I agree with a documented findings and plan of care. Patient was seen and examined. Objective - Vital Signs Vital signs: Vital Signs Temp 97.8 F 02/16/20 08:00 Pulse 77 02/16/20 08:00 Resp 20 02/16/20 08:00 BP 139/65 02/16/20 08:00 Pulse Ox 90 L 02/16/20 08:00 Intake & Output 02/15/20 02/16/20 02/16/20 18:59 06:59 18:59 Intake Total 1250 570 420 Output Total 900 Balance 350 570 420 Weight 73.7 kg Intake: IV 30 30 Invasive Line 2 30 30 Oral 1220 540 420 Output: Urine 900 Other: Voiding Method Toilet - Labs CBC & Chem 7: 02/15/20 06:53 02/15/20 06:53 Labs: Abnormal Lab Results - Last 24 Hours (Table) 02/16/20 Range/Units 06:46 PT 16.9 H (9.0-12.0) sec INR 1.7 H (<1.2) Microbiology - Last 24 Hours (Table) 02/14/20 15:35 Nasal Screen MRSA/MSSA - Final Nasopharyngeal Swab
[2020-02-16] MEDS: FERROUS SULFATE 325 MG TAB PO SCH (10:36)
[2020-02-16] MEDS: POTASSIUM CHLORIDE ER 20 MEQ TAB.ER PO SCH ×2 (10:37→21:05)
[2020-02-16] MEDS: ASCORBIC ACID 500 MG TAB PO SCH (10:37)
[2020-02-16] MEDS: LORATADINE 10 MG TAB PO SCH (10:37)
[2020-02-16] MEDS: BUMETANIDE 0.25 MG/ML 4 ML VIAL IVP SCH ×2 (10:37→21:05)
[2020-02-16] MEDS: ISOSORBIDE MONONITRATE ER 30 MG TAB.ER.24H PO SCH (10:37)
[2020-02-16] MEDS: METOPROLOL TARTRATE 25 MG TAB PO SCH (10:38)
[2020-02-16] MEDS: FOLIC ACID 1 MG TAB PO SCH (10:38)
[2020-02-16] MEDS: allopurinoL 300 MG TAB PO SCH (10:38)
[2020-02-16] MEDS: MULTIVITAMINS, THERA 1 EACH TAB PO SCH (10:38)
--- NOTE | 2020-02-16 10:54 | P.PN ---
Subjective Progress Note Date: 02/16/20 Von Mascorro, is a 79-year-old male, who presented to [facility] emergency room with a chief complaint of worsening shortness of breath, patient had recent hospitalization with similar complaint at that time he had right sided pleural effusion and underwent thoracentesis, he was discharged home and was followed as outpatient by pulmonary and cardiology, his condition started to worsen again about 5 days ago when he started having severe shortness of breath and decided today to come to emergency room. Patient was evaluated in emergency room his temperature on presentation was 97.6 pulse 69 respiration 22 blood pressure 126/72 pulse ox 91% on room air, his white blood count was 7.9 hemoglobin 12.1 platelet count 141 INR was therapeutic at 2.1 BUN 57 creatinine 1.9 to glucose 173 alkaline phosphatase 128 and troponin level less than 0.12 EKG done in the emergency room revealed atrial fibrillation, chest x-ray revealed evidence of cardiomegaly with perihilar and interstitial changes and small effusions bilaterally suggestive of mild CHF. Patient was admitted to telemetry floor cardiology consultation and pulmonary consultation was requested. Patient has a known history of chronic atrial fibrillation maintained on Coumadin he also has a known history of coronary artery disease with previous history of angioplasty and stent placement in the past, he has known history of valvular heart disease and history of pulmonary hypertension, he has a known history of sick sinus syndrome status post pacemaker placement he has a known history of ASD status post percutaneous closure he has known history of hypertension, hyperlipidemia, history of COPD, history of obstructive sleep apnea maintained on CPAP, and history of previous episodes of pneumonia in the past. On review of systems patient is alert and oriented 3 in no apparent distress there is no fever or chills no headache or dizziness he is complaining of shortness of breath with any activity he has occasional cough with clear sputum production he has some episodes of pain and pressure in the left side of the chest that last for few seconds at that time otherwise he denies any complaints no nausea or vomiting no abdominal pain no diarrhea no blood in the stools no burning with urination no frequency or urgency and no hematuria. on 02/13/2020 patient was seen and examined on the medical floor he is alert and oriented 3 in no apparent distress he is still complaining of shortness of breath with any activity otherwise he denies any complaints there is no fever or chills no headache or dizziness no chest pain no palpitation no cough no nausea or vomiting no abdominal pain no diarrhea no blood in the stools oh burning with urination no frequency or urgency no hematuria patient underwent AVIVA today aw aiting further recommendation from cardiology, BUN and creatinine are elevated Will consult nephrology On 02/14/2020 patient is alert and oriented 3 status post cardiac catheterization today. Per nursing staff heart catheterization revealed multivessel disease along with severe mitral and tricuspid regurg with severe pulmonary hypertension. Cardiothoracic surgery has been consulted for evalua tion. Creatinine is trending down to 1.82 and bun 45. Nephrology services are following. Patient remains on IV Lasix. At this time patient denies chest pain or shortness of breath. Patient denies nausea vomiting or diarrhea. Patient denies any urinary burning or frequency On 02/15/2020 patient was seen and examined on the telemetry floor he is alert and oriented 3 in no apparent distress he is complaining of shortness of breath with any activity otherwise he denies any complaints there is no fever or chills no headache or dizziness no chest pain no cough no palpitation no nausea or vom iting no abdominal pain no diarrhea no blood in the stools, no burning with urination no frequency or urgency and no hematuria, at this time patient is being evaluated by cardiovascular surgery, awaiting decision regard to intervention. Medication reviewed will follow closely. Patient is having a nosebleed Will hold Coumadin today and recheck INR in a.m.. On 02/16/2020 patient alert and oriented 3. Did discuss case with cardiothoracic team patient is still getting worked up for possible car diothoracic surgery. Cardiology pulmonary and nephrology services are currently following. INR 1.7 Coumadin resumed per cardiology. Creatinine remained stable at 1.52 and bun 40. Per cardiothoracic team patient will continue to be medically managed throughout the weekend. Patient remains short of breath. Patient denies chest pain. Patient denies nausea vomiting or diarrhea. Patient denies any urinary burning or frequency Objective - Vital Signs Vital signs: Vital Signs Temp 97.8 F 02/16/20 08:00 Pulse 77 02/16/20 08:00 Resp 20 02/16/20 08:00 BP 139/65 02/16/20 08:00 Pulse Ox 90 L 02/16/20 08:00 Intake & Output 02/15/20 02/16/20 02/16/20 18:59 06:59 18:59 Intake Total 1250 570 420 Output Total 900 Balance 350 570 420 Weight 73.7 kg Intake: IV 30 30 Invasive Line 2 30 30 Oral 1220 540 420 Output: Urine 900 Other: Voiding Method Toilet - Exam In general patient is alert and oriented 3 in no distress HEENT head normocephalic and atraumatic Neck is supple no JVD no goiter no lymphadenopathy Chest exam reveals a few scattered rhonchi no wheezing Cardiac exam reveals regular heart sounds no gallops no murmurs Abdomen is soft nontender no organomegaly with normal bowel sounds Extremity exam reveals no edema no cyanosis or clubbing Neurological examination reveals no gross focal deficit - Labs CBC & Chem 7: 02/15/20 06:53 02/15/20 06:53 Labs: Abnormal Lab Results - Last 24 Hours (Table) 02/16/20 Range/Units 06:46 PT 16.9 H (9.0-12.0) sec INR 1.7 H (<1.2) Microbiology - Last 24 Hours (Table) 02/14/20 15:35 Nasal Screen MRSA/MSSA - Final Nasopharyngeal Swab Assessment and Plan Assessment: 1. Worsening shortness of breath, cause is not entirely clear at this time, pulmonary consultation angina cardiology consultation are requested. Pulmonary services are following. Patient remains on IV Bumex per nephrology 2. Episodes of chest pain, no evidence of acute coronary syndrome at this time, troponin level so far are negative. 3. Acute on chronic kidney disease. Nephrology services are following. Creatinine is trending down 4. Underlying history of coronary artery disease 5. Underlying history of pulmonary hypertension 6. Underlying history of atrial fibrillation maintained on Coumadin INR is in therapeutic range 7. Severe mitral and tricuspid regurg with severe pulmonary hypertension and el evated PA pressures seen on cardiac catheterization. Cardiothoracic surgeon following. Awaiting decision in regards to cardiothoracic surgery. 8. Nosebleed. Resolved. INR 1.7 Coumadin resume per cardiology Cardiothoracic, cardiology, pulmonary and nephrology services are following Patient remains on IV Bumex per nephrology Awaiting cardiothoracic decision in regards to surgery I performed an examination of the patient and discussed their management with the Nurse Practitioner. I have reviewed the Nurse Practitioner's notes and agree with the documented findings and plan of care
--- NOTE | 2020-02-16 11:41 | PN ---
PROGRESS NOTE Patient is seen for followup for chronic kidney disease with an element of acute kidney injury this admission. Patient had a cardiac catheterization which showed significant coronary artery disease and patient has been recommended for coronary artery bypass surgery. He has been evaluated by the vascular surgeons, but no decision has been made yet. In the meantime, patient is complaining of increased shortness of breath. He did get IV fluids at the time of the catheterization. Serum creatinine had improved to 1.5 yesterday from 1.8 on initial admission. Baseline creatinine about 1.5-1.6 mg/dL. PHYSICAL EXAMINATION: On examination today, blood pressure is 139/65, heart rate 77 per minute, he is afebrile. Examination of the heart S1, S2. Examination of lungs, decreased breath sounds at the bases with basal crackles heard. Abdomen is soft, nontender. Examination of the lower extremities shows 1+ edema bilaterally. 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 LABS: Not available from today. ASSESSMENT: 1. Acute kidney injury on initial admission. This had improved with IV fluids. However, the patient is currently volume overloaded and we will diurese him with IV Bumex. Etiology mostly cardiorenal. Blood pressures have not been low. The patient has good urine output. No nephrotoxic agents on board. Patient did get the IV contrast for cardiac catheterization on , so his renal function might worsen over the next couple of days. Check labs today and then again in a.m. 2. Volume overload, currently being diuresed. I will increase the Bumex to q.12 hours. 3. Severe pulmonary hypertension. 4. Severe mitral regurgitation which is eccentric with severe tricuspid regurgitation with possible valvular surgery during the coronary artery bypass surgery. 5. Chronic kidney disease stage 3, baseline creatinine 1.5-1.6, secondary to nephrosclerosis. 6. Coronary artery disease, being considered for coronary artery bypass surgery and valvular repair. PLAN: Increase Bumex to 1 mg twice a day. Resume Demadex over the weekend once volume status is improved. MMODL / IJN: [id number] /
--- NOTE | 2020-02-16 13:12 | P.PN ---
Subjective Progress Note Date: 02/16/20 Principal diagnosis: Shortness of breath This is a 79-year-old patient of Dr. Mojica, who we have previously seen in consultation in January, when the patient was hospitalized for dyspnea related to acute exacerbation of chronic congestive heart failure, and patient had bilateral pleural effusions, right greater than left, and underwent a right- sided thoracentesis on 01/21/[address] Kirkpatrick would removal of 1.5 L of turbid dark yellowish pleural fluid which turned out to be transudative in nature and consistent with the patient's presentation and acute exacerbation of diastolic heart failure. patient had an echocardiogram on 2019 which showed mild concentric LVH, with the EF of 50-55%, mild aortic regurgitation, mild mitral regurgitation, severe tricuspid regurgitation and severe pulmonary hypertension with PA pressure of 59.5 mmHg, there was moderate pulmonic regurgitation. Patient has a known history of chronic A. fib on Coumadin, past medical history of coronary artery disease with stents, sick sinus syndrome status post permanent pacemaker implantation, previous history of ASD status post percutaneous closure, COPD, hypertension, hyperlipidemia, previous history of pneumonia, sleep apnea on CPAP. on 02/12/2020 patient came into the emergency department for evaluation of progressive dyspnea, for the past 3 days, exertional dyspnea, patient denied any chest pain, no fever, chills, no significant cough or phlegm production, no nausea vomiting, no chills, no sweats, history is x-ray showed cardiomegaly with perihilar and interstitial ch anges and a small pleural effusions. 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 lab work showed the no evidence of leukocytosis, white blood cell, 7.9, hemoglobin is 12, INR is therapeutic at 2.1, electrolytes were unremarkable, BUN is 57 creatinine is 1.9. Troponins were negative 2, at less than 0.012, proBNP is 1790. patient had a transesophageal echocardiogram today which showed a severe mitral regurgitation which was eccentric, severe tricuspid regurgitation, and severe pulmonary hypertension with PA pressure of 70, biatrial enlargement, presence of PFO closure device with residual shunt, and preserved LV function, and no evidence of clot in the left atrial appendage. patient appears to be calm and comfortable currently, he is on 4 L of oxygen his pulse ox of 95%, denies any chest pain, he is afebrile, he was started on Demadex. Cardiology is following. The patient is seen today 02/14/2020 in follow-up on the selective care unit. He is currently awake and alert in no acute distress. Resting quite comfortably in bed. He is maintaining O2 saturations in the low 90s on 4 L/m per nasal cannula. He is afebrile. Hemodynamically stable. He did undergo AVIVA yesterday that revealed severe eccentric mitral regurgitation and severe tricuspid regurgitation and patent foramen ovale. The plan is for cardiac catheterization today. White count 7.4. Hemoglobin 10.5. INR 2.4. Sodium 140. Potassium 3.7. Creatinine 1.82. Remains on IV diuretics. The patient is seen today 02/15/2020 in follow-up on the selective care unit. He is currently sitting up in a chair at the bedside. Awake and alert in no acute distress. Denies any worsening shortness of breath, cough or congestion. Maintaining O2 saturation in low 90s on 4 L/m per nasal cannula. He is afebrile. Hemodynamically stable. He did undergo cardiac catheterization yesterday that revealed a previously stented RCA in the midportion is patent. There is a lesion of 50% between the site stented segments and distal branches. LAD and circumflex both have ostial and proximal 70-80% calcified stenosis. Previously stented circumflex was patent. Coronary artery bypass grafting is recommended. The patient will also require repair of mitral valve and possibly tricuspid valve and closure of a PFO. Cardiothoracic services are on the case. Carotid Dopplers revealed no significant stenosis bilaterally. Preoperative FEV1 value 37% of predicted. The patient is seen today 02/16/2020 in follow-up on the selective care unit. He is currently resting comfortably in bed. Awake and alert in no acute distress. He is maintaining O2 saturations in the low 90s on 4 L/m per nasal cannula. Afebrile. Hemodynamically stable. Denies any worsening shortness of breath, cough or congestion. No chest pain or palpitations. INR 1.7. Objective - Vital Signs Vital signs: Vital Signs Temp 97.8 F 02/16/20 08:00 Pulse 77 02/16/20 08:00 Resp 18 02/16/20 08:00 BP 139/65 02/16/20 08:00 Pulse Ox 90 L 02/16/20 08:00 Intake & Output 02/15/20 02/16/20 02/16/20 18:59 06:59 18:59 Intake Total 1250 570 420 Output Total 900 Balance 350 570 420 Weight 73.7 kg Intake: IV 30 30 Invasive Line 2 30 30 Oral 1220 540 420 Output: Urine 900 Other: Voiding Method Toilet Toilet # Voids 2 - Exam GENERAL EXAM: Alert, very pleasant, 79-year-old male patient, on 4 L of oxygen with pulse ox of 90%, comfortable in no apparent distress. HEAD: Normocephalic/atraumatic. EYES: Normal reaction of pupils, equal size. Conjunctiva pink, sclera white. NOSE: Clear with pink turbinates. THROAT: No erythema or exudates. NECK: No masses, no JVD, no thyroid enlargement, no adenopathy. CHEST: No chest wall deformity. Symmetrical expansion. LUNGS: Equal air entry with faint crackles in the bilateral posterior bases. CVS: Regular rate and rhythm, normal S1 and S2, no gallops, positive murmurs, no rubs ABDOMEN: Soft, nontender. No hepatosplenomegaly, normal bowel sounds, no guarding or rigidity. EXTREMITIES: No clubbing, no edema, no cyanosis, 2+ pulses and upper and lower extremities. MUSCULOSKELETAL: Muscle strength and tone normal. SPINE: No scoliosis or deformity SKIN: No rashes CENTRAL NERVOUS SYSTEM: Alert and oriented -3. No focal deficits, tone is normal in all 4 extremities. PSYCHIATRIC: Alert and oriented -3. Appropriate affect. Intact judgment and insight. - Labs CBC & Chem 7: 02/15/20 06:53 02/15/20 06:53 Labs: Abnormal Lab Results - Last 24 Hours (Table) 02/16/20 Range/Units 06:46 PT 16.9 H (9.0-12.0) sec INR 1.7 H (<1.2) Microbiology - Last 24 Hours (Table) 02/14/20 15:35 Nasal Screen MRSA/MSSA - Final Nasopharyngeal Swab Assessment and Plan Assessment: 1 Acute on chronic dyspnea related to known history of valvular heart disease, severe pulmonary hypertension, and mild exacerbation of diastolic CHF. Transesophageal echocardiogram reveals severe eccentric mitral care dictation and severe tricuspid regurgitation and patent foramen ovale with presence of PFO closure device in residual shunt. Cardiac catheterization revealed significant coronary artery disease and the plan is for bypass grafting with mitral valve repair possibly tricuspid repair and closure of patent foramen ovale. 2 Small bilateral pleural effusions, too small to drain, with recent history of right-sided thoracentesis with removal 1.5 L of pleural fluid which was t ransudate in nature 3 History of chronic atrial fibrillation on Coumadin 4 History of ASD status post percutaneous repair 5 Severe mitral and tricuspid regurgitation, with severe pulmonary hypertension with PA pressure of 70 mmHg 6 History of sick sinus syndrome, status post pacemaker implantation 7 History of sleep apnea on CPAP 8 Hypertension 9 Hyperlipidemia 10 History of COPD 11 Previous history of pneumonia 12 Previous history of smoking 13 History of coronary artery disease with previous stenting 14 Chronic kidney disease stage III Plan: The patient was seen and evaluated by Dr. Mcdonnell Cardiothoracic services evaluating the patient FEV1 value 37% of predicted Will need full PFT and further evaluation by pulmonary prior to surgical clearance We'll continue the current treatment plan Continue to follow I, the cosigning physician, performed a history & physical examination of the patient. Lungs sounds with crackles in the bilateral posterior bases. Maintaining good O2 saturations in the 90s on 4 L/m per nasal cannula. I discussed the assessment and plan of care with my nurse practitioner, Mable Castanon. I attest to the above note as dictated by her.
--- NOTE | 2020-02-16 15:41 | P.PN ---
<Deanne Rivera - Last Filed: 02/16/20 15:34> Subjective Progress Note Date: 02/16/20 Principal diagnosis: Multivessel calcified coronary artery disease, severe eccentric mitral valve regurgitation, severe tricuspid regurgitation with severe pulmonary hypertension. Previous medical history of coronary artery disease with myocardial infarction status post stenting, hypertension, hyperlipidemia, chronic, persistent atrial fibrillation on Coumadin for anticoagulation, sick sinus syndrome status post permanent pacemaker placement 2017, ASD with closure, chronic kidney disease stage III, obstructive sleep apnea with home CPAP use, recent right-sided pleural effusion status post thoracentesis with removal of 1.5 L inflammatory fluid, osteoarthritis, previous tobacco dependence, enlarged prostate, family history of heart disease The patient is currently sitting up in bed on the cardiac stepdown unit in no acute distress. Denies any chest pain, states shortness of breath has improved although patient is still on oxygen and somewhat short of breath at rest. Dr. Naylor met with patient today, reviewed his films and recommends surgery. Objective - Vital Signs Vital signs: Vital Signs Temp 97.8 F 02/16/20 08:00 Pulse 65 02/16/20 12:00 Resp 18 02/16/20 12:00 BP 133/68 02/16/20 12:00 Pulse Ox 89 L 02/16/20 12:00 Intake & Output 02/15/20 02/16/20 02/16/20 18:59 06:59 18:59 Intake Total 1250 570 660 Output Total 900 Balance 350 570 660 Weight 73.7 kg Intake: IV 30 30 Invasive Line 2 30 30 Oral 1220 540 660 Output: Urine 900 Other: Voiding Method Toilet Toilet # Voids 2 - Constitutional General appearance: Present: cooperative, no acute distress - Respiratory Details: Lungs sounds diminished bilaterally with expiratory wheezes present posteriorly. Respirations even, nonlabored. Currently on 4 L nasal cannula with oxygen saturation 89-90%. Able to achieve 1000 mL on his incentive spirometry. - Cardiovascular Details: S1, S2 present. Irregular rate and rhythm, controlled atrial fibrillation with occasional ventricular pacemaker spikes on telemetry. Palpable peripheral pulses bilaterally. No edema present. No calf pain or tenderness noted. - Gastrointestinal Gastrointestinal Comment(s): Abdomen soft, nontender, nondistended. Active bowel sounds present 4 quadrants. Tolerating diet. - Genitourinary Genitourinary Comment(s): continues to void - Integumentary Integumentary Comment(s): skin is warm and dry with evidence of good perfusion - Neurologic Neurologic: Present: CNII-XII intact - Musculoskeletal Musculoskeletal: Present: strength equal bilaterally - Psychiatric Psychiatric: Present: A&O x's 3, appropriate affect, intact judgment & insight - Allied health notes Allied health notes reviewed: nursing - Labs CBC & Chem 7: 02/15/20 06:53 02/15/20 06:53 Labs: Abnormal Lab Results - Last 24 Hours (Table) 02/16/20 Range/Units 06:46 PT 16.9 H (9.0-12.0) sec INR 1.7 H (<1.2) Microbiology - Last 24 Hours (Table) 02/14/20 15:35 Nasal Screen MRSA/MSSA - Final Nasopharyngeal Swab Assessment and Plan Assessment: 1. Multivessel calcified coronary artery disease 2. Severe eccentric mitral valve regurgitation 3. Severe tricuspid regurgitation with severe pulmonary hypertension 4. History of coronary artery disease with myocardial infarction status post stenting, last stent 2012 5. Hypertension 6. Hyperlipidemia 7. Chronic, persistent atrial fibrillation on Coumadin for anticoagulation, last dose 02/12/2020 8. Sick sinus syndrome status post permanent pacemaker placement 2016 9. History of ASD with closure 10. Chronic kidney disease stage III 11. Obstructive sleep apnea with home CPAP use 12. Recent right-sided pleural effusion status post thoracentesis with removal of 1.5 L inflammatory fluid 13. Osteoarthritis 14. Previous tobacco dependence, current FEV1 34% of predicted 15. Enlarged prostate 16. Family history of heart disease Plan: 1. Continue to maximize medical therapy with aspirin, statin, beta shila, diuresis 2. Wean O2 as tolerated. Encourage the spirometry is 10 times every hour while awake 3. Increase activity as tolerated 4. Continue to reinforce preoperative teaching 5. Patient needs full PFT, tentatively scheduled for next Wednesday 6. STS risk score calculated and discussed with the patient 7. Our plan is for coronary artery bypass, mitral and tricuspid valve repair, possible replacement on 03/11/[address] Naylor pending pulmonary and dental clearance. This was discussed with Dr. Diego by Dr. Naylor. The patient may be discharged to home from our standpoint once ok with PCP and cardio to return as an outpatient for surgery 8. Medical management of other comorbidities per primary care service 9. More recommendations to follow Time with Patient: Greater than 30 <Danis Naylor - Last Filed: 02/16/20 16:55> Objective - Vital Signs Vital signs: Vital Signs Temp 97.8 F 02/16/20 08:00 Pulse 67 02/16/20 16:00 Resp 18 02/16/20 16:00 BP 134/60 02/16/20 16:00 Pulse Ox 91 L 02/16/20 16:00 Intake & Output 02/15/20 02/16/20 02/16/20 18:59 06:59 18:59 Intake Total 1250 570 660 Output Total 900 Balance 350 570 660 Weight 73.7 kg Intake: IV 30 30 Invasive Line 2 30 30 Oral 1220 540 660 Output: Urine 900 Other: Voiding Method Toilet Toilet # Voids 2 - Labs CBC & Chem 7: 02/15/20 06:53 02/15/20 06:53 Labs: Abnormal Lab Results - Last 24 Hours (Table) 02/16/20 Range/Units 06:46 PT 16.9 H (9.0-12.0) sec INR 1.7 H (<1.2) Microbiology - Last 24 Hours (Table) 02/14/20 15:35 Nasal Screen MRSA/MSSA - Final Nasopharyngeal Swab Assessment and Plan Plan: The patient was seen and examined with the nurse practitioner Deanne Rivera and I agree with her documentation and plan.
[2020-02-16] MEDS: WARFARIN 1 MG TAB PO SCH (18:02)
[2020-02-16] MEDS: ASPIRIN 81 MG PO SCH (21:05)
[2020-02-16] MEDS: amLODIPine 10 MG TAB PO SCH (21:05)
[2020-02-16] MEDS: ATORVASTATIN 40 MG TAB PO SCH (21:05)
--- NOTE | 2020-02-17 07:58 | P.PN ---
Subjective Progress Note Date: 02/17/20 Principal diagnosis: This is a 79-year-old male who came in with shortness of breath and is known to us with chronic kidney disease with a baseline creatinine of 1.5 1 cardiac catheterization. He is known with coronary artery disease has had a history of angioplasty and stent in the past as well as chronic atrial fibrillation and valvular heart disease. He also is known with COPD and sleep apnea. Right pleural effusion and thoracentesis He is diagnosed with congestive heart failure. Is being diuresed He is feeling fairly well short of breath on exertion is on nasal cannula oxygen. No dizziness. Able to walk. No chest pain. Urine output is not well documented. Creatinine stable at baseline 1.5 Objective - Vital Signs Vital signs: Vital Signs Temp 98.0 F 02/17/20 04:00 Pulse 64 02/17/20 04:00 Resp 19 02/17/20 04:00 BP 126/68 02/17/20 04:00 Pulse Ox 89 L 02/17/20 04:00 Intake & Output 02/16/20 02/17/20 02/17/20 18:59 06:59 18:59 Intake Total 897 300 Balance 897 300 Weight 73.6 kg Intake: Oral 897 300 Other: Voiding Method Toilet # Voids 1 On examination is awake alert oriented comfortable HEENT exam no JVP neck is supple no facial asymmetry Lungs are clear to auscultation fair air entry bilaterally Heart sounds unremarkable for any murmur rub gallop although is known with valvular disease Abdomen soft nontender Extremity exam was minimal edema Neurologically awake alert oriented - Labs CBC & Chem 7: 02/15/20 06:53 02/15/20 06:53 Labs: Abnormal Lab Results - Last 24 Hours (Table) 02/16/20 Range/Units 06:46 PT 16.9 H (9.0-12.0) sec INR 1.7 H (<1.2) Assessment and Plan Plan: Impression 1. 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 An element of acute kidney injury, creatinine peaked to 1.9, improved. Etiology was to 3. Status post cardiac catheterization 02/14/2020, stable 4. Congestive heart failure stable 5. Recommended to have coronary artery bypass graft and mitral valve repair as well as tricuspid valve repair 6. History of PFO on the cardiac cath Recommendation 1. Strict I's and O's 2. Check orthostatic changes. 3. continue Bumex for right now 1 mg twice a day
[2020-02-17 08:29] LABS: INR 1.6 (<1.2); Prothrombin Time 15.6 sec (9.0-12.0)
[2020-02-17 08:41] LABS: Albumin 3.4 g/dL (3.5-5.0); Calcium 8.5 mg/dL (8.4-10.2); Potassium 4.5 mmol/L (3.5-5.1); Total Bilirubin 1.1 mg/dL (0.2-1.3)
[2020-02-17 08:44] LABS: Anisocytosis Slight; Basophils % (A) 0 %; Eosinophils # (A) 0.2 k/uL (0-0.7); Eosinophils % (A) 3 %; HCT 32.5 % (39.0-53.0); HGB 10.3 gm/dL (13.0-17.5); Hypochromasia Slight; Lymphocytes # (A) 0.6 k/uL (1.0-4.8); Lymphocytes % (A) 9 %; MCH 30.4 pg (25.0-35.0); MCHC 31.6 g/dL (31.0-37.0); MCV 96.3 fL (80.0-100.0); Monocytes # (A) 0.4 k/uL (0-1.0); Monocytes % (A) 6 %; Neutrophils # (A) 5.4 k/uL (1.3-7.7); Neutrophils % (A) 81 %; Platelet Count 134 k/uL (150-450); RBC 3.37 m/uL (4.30-5.90); RDW 16.3 % (11.5-15.5); WBC 6.6 k/uL (3.8-10.6)
[2020-02-17] MEDS: ISOSORBIDE MONONITRATE ER 30 MG TAB.ER.24H PO SCH (09:28)
[2020-02-17] MEDS: ASCORBIC ACID 500 MG TAB PO SCH (09:28)
[2020-02-17] MEDS: FOLIC ACID 1 MG TAB PO SCH (09:29)
[2020-02-17] MEDS: METOPROLOL TARTRATE 25 MG TAB PO SCH (09:29)
[2020-02-17] MEDS: LORATADINE 10 MG TAB PO SCH (09:29)
[2020-02-17] MEDS: MULTIVITAMINS, THERA 1 EACH TAB PO SCH (09:29)
[2020-02-17] MEDS: BUMETANIDE 0.25 MG/ML 4 ML VIAL IVP SCH ×2 (09:29→21:55)
[2020-02-17] MEDS: POTASSIUM CHLORIDE ER 20 MEQ TAB.ER PO SCH ×2 (09:29→21:55)
[2020-02-17] MEDS: FERROUS SULFATE 325 MG TAB PO SCH (09:29)
[2020-02-17] MEDS: allopurinoL 300 MG TAB PO SCH (09:29)
--- NOTE | 2020-02-17 11:48 | P.PN ---
Subjective Progress Note Date: 02/17/20 Von Mascorro, is a 79-year-old male, who presented to [facility] emergency room with a chief complaint of worsening shortness of breath, patient had recent hospitalization with similar complaint at that time he had right sided pleural effusion and underwent thoracentesis, he was discharged home and was followed as outpatient by pulmonary and cardiology, his condition started to worsen again about 5 days ago when he started having severe shortness of breath and decided today to come to emergency room. Patient was evaluated in emergency room his temperature on presentation was 97.6 pulse 69 respiration 22 blood pressure 126/72 pulse ox 91% on room air, his white blood count was 7.9 hemoglobin 12.1 platelet count 141 INR was therapeutic at 2.1 BUN 57 creatinine 1.9 to glucose 173 alkaline phosphatase 128 and troponin level less than 0.12 EKG done in the emergency room revealed atrial fibrillation, chest x-ray revealed evidence of cardiomegaly with perihilar and interstitial changes and small effusions bilaterally suggestive of mild CHF. Patient was admitted to telemetry floor cardiology consultation and pulmonary consultation was requested. Patient has a known history of chronic atrial fibrillation maintained on Coumadin he also has a known history of coronary artery disease with previous history of angioplasty and stent placement in the past, he has known history of valvular heart disease and history of pulmonary hypertension, he has a known history of sick sinus syndrome status post pacemaker placement he has a known history of ASD status post percutaneous closure he has known history of hypertension, hyperlipidemia, history of COPD, history of obstructive sleep apnea maintained on CPAP, and history of previous episodes of pneumonia in the past. On review of systems patient is alert and oriented 3 in no apparent distress there is no fever or chills no headache or dizziness he is complaining of shortness of breath with any activity he has occasional cough with clear sputum production he has some episodes of pain and pressure in the left side of the chest that last for few seconds at that time otherwise he denies any complaints no nausea or vomiting no abdominal pain no diarrhea no blood in the stools no burning with urination no frequency or urgency and no hematuria. on 02/13/2020 patient was seen and examined on the medical floor he is alert and oriented 3 in no apparent distress he is still complaining of shortness of breath with any activity otherwise he denies any complaints there is no fever or chills no headache or dizziness no chest pain no palpitation no cough no nausea or vomiting no abdominal pain no diarrhea no blood in the stools oh burning with urination no frequency or urgency no hematuria patient underwent AVIVA today aw aiting further recommendation from cardiology, BUN and creatinine are elevated Will consult nephrology. On 02/14/2020 patient is alert and oriented 3 status post cardiac catheterization today. Per nursing staff heart catheterization revealed multivessel disease along with severe mitral and tricuspid regurg with severe pulmonary hypertension. Cardiothoracic surgery has been consulted for dinesh ation. Creatinine is trending down to 1.82 and bun 45. Nephrology services are following. Patient remains on IV Lasix. At this time patient denies chest pain or shortness of breath. Patient denies nausea vomiting or diarrhea. Patient denies any urinary burning or frequency On 02/15/2020 patient was seen and examined on the telemetry floor he is alert and oriented 3 in no apparent distress he is complaining of shortness of breath with any activity otherwise he denies any complaints there is no fever or chills no headache or dizziness no chest pain no cough no palpitation no nausea or v omiting no abdominal pain no diarrhea no blood in the stools, no burning with urination no frequency or urgency and no hematuria, at this time patient is being evaluated by cardiovascular surgery, awaiting decision regard to intervention. Medication reviewed will follow closely. Patient is having a nosebleed Will hold Coumadin today and recheck INR in a.m.. On 02/16/2020 patient alert and oriented 3. Did discuss case with cardiothoracic team patient is still getting worked up for possible cardiothoracic surgery. Cardiology pulmonary and nephrology services are currently following. INR 1.7 Coumadin resumed per cardiology. Creatinine remained stable at 1.52 and bun 40. Per cardiothoracic team patient will continue to be medically managed throughout the weekend. Patient remains short of breath. Patient denies chest pain. Patient denies nausea vomiting or diarrhea. Patient denies any urinary burning or frequency On 02/17/2020 patient was seen and examined on the telemetry floor, he is alert and oriented 3 in no distress, he is still complaining of shortness of breath with any activity he is maintained on oxygen via nasal cannula at 6 L/m his oxygen saturation is 90% otherwise he denies any complaints there is no fever or chills no headache or dizziness, no chest pain no palpitation no cough no nausea or vomiting no abdominal pain no diarrhea no blood in the stools no burning with urination no frequency or urgency and no hematuria Objective - Vital Signs Vital signs: Vital Signs Temp 98.0 F 02/17/20 08:00 Pulse 74 02/17/20 08:00 Resp 18 02/17/20 08:00 BP 155/68 02/17/20 08:00 Pulse Ox 90 L 02/17/20 08:00 Intake & Output 02/16/20 02/17/20 02/17/20 18:59 06:59 18:59 Intake Total 897 300 Balance 897 300 Weight 73.6 kg Intake: Oral 897 300 Other: Voiding Method Toilet Toilet # Voids 1 - Exam In general patient is alert and oriented 3 in no distress HEENT head normocephalic and atraumatic Neck is supple no JVD no goiter no lymphadenopathy Chest exam reveals a few scattered rhonchi no wheezing Cardiac exam reveals regular heart sounds no gallops no murmurs Abdomen is soft nontender no organomegaly with normal bowel sounds Extremity exam reveals no edema no cyanosis or clubbing Neurological examination reveals no gross focal deficit - Labs CBC & Chem 7: 02/17/20 06:58 02/17/20 06:58 Labs: Abnormal Lab Results - Last 24 Hours (Table) 02/17/20 02/17/20 02/17/20 Range/Units 06:58 06:58 06:58 RBC 3.37 L (4.30-5.90) m/uL Hgb 10.3 L (13.0-17.5) gm/dL Hct 32.5 L (39.0-53.0) % RDW 16.3 H (11.5-15.5) % Plt Count 134 L (150-450) k/uL Lymphocytes # 0.6 L (1.0-4.8) k/uL PT 15.6 H (9.0-12.0) sec INR 1.6 H (<1.2) Sodium 136 L (137-145) mmol/L BUN 35 H (9-20) mg/dL Creatinine 1.48 H (0.66-1.25) mg/dL Total Protein 6.0 L (6.3-8.2) g/dL Albumin 3.4 L (3.5-5.0) g/dL Assessment and Plan Plan: 1. Worsening shortness of breath, cause is not entirely clear at this time, pulmonary consultation angina cardiology consultation are requested 2. Episodes of chest pain, no evidence of acute coronary syndrome at this time, troponin level so far are negative, possible stress test during this admission per cardiology. 3. Underlying history of chronic kidney disease 4. Underlying history of coronary artery disease 5. Underlying history of pulmonary hypertension 6. Underlying history of valvular heart disease, with moderate to severe mitral regurgitation and moderate to severe tricuspid regurgitation on AVIVA of August 2018 7. Underlying history of atrial fibrillation maintained on Coumadin INR is in therapeutic range. 8. Nosebleed Will hold Coumadin today and recheck INR tomorrow Awaiting decision from cardiovascular surgery in regard to timing of intervention At this time patient was seen and examined Home medications reviewed and reordered Consultation for pulmonary and cardiology, nephrology and cardiovascular surgery are following Will follow closely
--- NOTE | 2020-02-17 13:43 | P.PN ---
Subjective HISTORY OF PRESENTING ILLNESS This is a pleasant 79-year-old male past medical history significant for coronary artery disease status post PCI of RCA and circumflex, chronic persistent atrial fibrillation on long-term anticoagulation, sick sinus syndrome status post permanent pacemaker implantation, pulmonary hypertension, diastolic heart failure, history of PFO status post closure and hypertension. AVIVA revealed severe mitral regurgitation, severe tricuspid regurgitation, severe pulmonary hypertension with an RVSP of 70, biatrial enlargement presence of PFO closure device with residual shunt and preserved LV systolic function. He underwent cardiac catheterization revealing previously stented RCA in the midportion is patent, a lesion of about 50% between the stented segment in the distal branches, left main free of significant disease, LAD and circumflex both have ostial and proximal 70-80% calcified stenosis, the previously stented circumflex is patent. He is seen and examined sitting up in distress. He states his breat flavio is stable with no worsening since admission but also no real improvement. He denies chest pain, dizziness or palpitations. He did have a brief episode of epistaxis yesterday however he states he has just recently at home from time to time. His p.m. Coumadin dose was held by the primary care physician. Laboratory data reviewed, INR 1.7. Blood pressure 139/65 heart rate 77 afebrile maintaining oxygen saturation on nasal cannula. Currently maintained on amlodipine 10 mg at bedtime, aspirin 81 mg daily, atorvastatin 40 mg daily, Bumex 1 mg IV push daily, Imdur 30 mg daily, metoprolol 25 mg daily and oral potassium. 02/17/2020 Patient seen and examined sitting up in bed with his bedside.continues to feel exertionally short of breath. He has been seen and evaluated by Dr. Naylor and surgery is planned for March.136/71 heart rate 61 afebrile maintaining oxygen saturation on nasal cannula. Laboratory data reviewed, INR 1.6, sodium 136, potassium 1.48. PHYSICAL EXAMINATION CONSTITUTIONAL: No apparent distress. HEENT: Head is normocephalic. Pupils are equal, round. Sclerae anicteric. Mucous membranes of the mouth are moist. No JVD. No carotid bruit. CHEST EXAMINATION: Lungs are clear to auscultation. No chest wall tenderness is noted on palpation or with deep breathing. HEART EXAMINATION: Irregular rate and rhythm. S1, S2 heard. Systolic ejection murmur at the left sternal border and apex, no gallops or rub. EXTREMITIES: 2+ peripheral pulses, no lower extremity edema and no calf tenderness. ASSESSMENT Exertional dyspnea secondary to progression of underlying CAD, severe valvular heart disease and pulmonary hypertension Chronic diastolic heart failure, clinically euvolemic. Lungs are clear, no lower extremity swelling and normal NTproBNP Severe pulmonary hypertension Valvular heart disease, moderate-severe MR and moderate-sever TR on AVIVA 08/2018 Chronic persistent atrial fibrillation on long-term anticoagulation with Coumadin Sick sinus syndrome status post permanent pacemaker implantation Hypertension Dyslipidemia Coronary artery disease status post PCI Chronic kidney disease PLAN Continue IV diuresis per nephrology. Dr. Naylor plans for surgical intervention March 11. Nurse Practitioner note has been reviewed, I agree with a documented findings and plan of care. Patient was seen and examined. Objective - Vital Signs Vital signs: Vital Signs Temp 98.0 F 02/17/20 08:00 Pulse 61 02/17/20 12:00 Resp 18 02/17/20 12:00 BP 136/71 02/17/20 12:00 Pulse Ox 93 L 02/17/20 12:00 Intake & Output 02/16/20 02/17/20 02/17/20 18:59 06:59 18:59 Intake Total 897 300 365 Output Total 450 Balance 897 300 -85 Weight 73.6 kg Intake: Oral 897 300 365 Output: Urine 450 Other: Voiding Method Toilet Toilet # Voids 1 1 - Labs CBC & Chem 7: 02/17/20 06:58 02/17/20 06:58 Labs: Abnormal Lab Results - Last 24 Hours (Table) 02/17/20 02/17/20 02/17/20 Range/Units 06:58 06:58 06:58 RBC 3.37 L (4.30-5.90) m/uL Hgb 10.3 L (13.0-17.5) gm/dL Hct 32.5 L (39.0-53.0) % RDW 16.3 H (11.5-15.5) % Plt Count 134 L (150-450) k/uL Lymphocytes # 0.6 L (1.0-4.8) k/uL PT 15.6 H (9.0-12.0) sec INR 1.6 H (<1.2) Sodium 136 L (137-145) mmol/L BUN 35 H (9-20) mg/dL Creatinine 1.48 H (0.66-1.25) mg/dL Total Protein 6.0 L (6.3-8.2) g/dL Albumin 3.4 L (3.5-5.0) g/dL
--- NOTE | 2020-02-17 14:03 | P.PN ---
Subjective Progress Note Date: 02/17/20 Principal diagnosis: Shortness of breath This is a 79-year-old patient of Dr. Mojica, who we have previously seen in consultation in January, when the patient was hospitalized for dyspnea related to acute exacerbation of chronic congestive heart failure, and patient had bilateral pleural effusions, right greater than left, and underwent a right- sided thoracentesis on 01/21/[address] Kirkpatrick would removal of 1.5 L of turbid dark yellowish pleural fluid which turned out to be transudative in nature and consistent with the patient's presentation and acute exacerbation of diastolic heart failure. patient had an echocardiogram on 2019 which showed mild concentric LVH, with the EF of 50-55%, mild aortic regurgitation, mild mitral regurgitation, severe tricuspid regurgitation and severe pulmonary hypertension with PA pressure of 59.5 mmHg, there was moderate pulmonic regurgitation. Patient has a known history of chronic A. fib on Coumadin, past medical history of coronary artery disease with stents, sick sinus syndrome status post permanent pacemaker implantation, previous history of ASD status post percutaneous closure, COPD, hypertension, hyperlipidemia, previous history of pneumonia, sleep apnea on CPAP. on 02/12/2020 patient came into the emergency department for evaluation of progressive dyspnea, for the past 3 days, exertional dyspnea, patient denied any chest pain, no fever, chills, no significant cough or phlegm production, no nausea vomiting, no chills, no sweats, history is x-ray showed cardiomegaly with perihilar and interstitial ch anges and a small pleural effusions. 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 lab work showed the no evidence of leukocytosis, white blood cell, 7.9, hemoglobin is 12, INR is therapeutic at 2.1, electrolytes were unremarkable, BUN is 57 creatinine is 1.9. Troponins were negative 2, at less than 0.012, proBNP is 1790. patient had a transesophageal echocardiogram today which showed a severe mitral regurgitation which was eccentric, severe tricuspid regurgitation, and severe pulmonary hypertension with PA pressure of 70, biatrial enlargement, presence of PFO closure device with residual shunt, and preserved LV function, and no evidence of clot in the left atrial appendage. patient appears to be calm and comfortable currently, he is on 4 L of oxygen his pulse ox of 95%, denies any chest pain, he is afebrile, he was started on Demadex. Cardiology is following. The patient is seen today 02/14/2020 in follow-up on the selective care unit. He is currently awake and alert in no acute distress. Resting quite comfortably in bed. He is maintaining O2 saturations in the low 90s on 4 L/m per nasal cannula. He is afebrile. Hemodynamically stable. He did undergo AVIVA yesterday that revealed severe eccentric mitral regurgitation and severe tricuspid regurgitation and patent foramen ovale. The plan is for cardiac catheterization today. White count 7.4. Hemoglobin 10.5. INR 2.4. Sodium 140. Potassium 3.7. Creatinine 1.82. Remains on IV diuretics. The patient is seen today 02/15/2020 in follow-up on the selective care unit. He is currently sitting up in a chair at the bedside. Awake and alert in no acute distress. Denies any worsening shortness of breath, cough or congestion. Maintaining O2 saturation in low 90s on 4 L/m per nasal cannula. He is afebrile. Hemodynamically stable. He did undergo cardiac catheterization yesterday that revealed a previously stented RCA in the midportion is patent. There is a lesion of 50% between the site stented segments and distal branches. LAD and circumflex both have ostial and proximal 70-80% calcified stenosis. Previously stented circumflex was patent. Coronary artery bypass grafting is recommended. The patient will also require repair of mitral valve and possibly tricuspid valve and closure of a PFO. Cardiothoracic services are on the case. Carotid Dopplers revealed no significant stenosis bilaterally. Preoperative FEV1 value 37% of predicted. The patient is seen today 02/16/2020 in follow-up on the selective care unit. He is currently resting comfortably in bed. Awake and alert in no acute distress. He is maintaining O2 saturations in the low 90s on 4 L/m per nasal cannula. Afebrile. Hemodynamically stable. Denies any worsening shortness of breath, cough or congestion. No chest pain or palpitations. INR 1.7. The patient is seen today 02/17/2020 in follow-up on the selective care unit. He is currently sitting up in a chair at the bedside. Awake and alert in no acute distress. Denies any shortness of breath, cough or congestion. No chest pain or palpitations. Maintaining O2 saturations in the 90s on 4 L/m per nasal cannula. He is afebrile. White count 6.6. Hemoglobin 10.3. INR 1.6. Sodium 136. Potassium 4.5. Creatinine 1.48. Objective - Vital Signs Vital signs: Vital Signs Temp 98.0 F 02/17/20 08:00 Pulse 61 02/17/20 12:00 Resp 18 02/17/20 12:00 BP 136/71 02/17/20 12:00 Pulse Ox 93 L 02/17/20 12:00 Intake & Output 02/16/20 02/17/20 02/17/20 18:59 06:59 18:59 Intake Total 897 300 365 Output Total 450 Balance 897 300 -85 Weight 73.6 kg Intake: Oral 897 300 365 Output: Urine 450 Other: Voiding Method Toilet Toilet # Voids 1 1 - Exam GENERAL EXAM: Alert, very pleasant, 79-year-old male patient, on 4 L of oxygen with pulse ox of 90%, comfortable in no apparent distress. HEAD: Normocephalic/atraumatic. EYES: Normal reaction of pupils, equal size. Conjunctiva pink, sclera white. NOSE: Clear with pink turbinates. THROAT: No erythema or exudates. NECK: No masses, no JVD, no thyroid enlargement, no adenopathy. CHEST: No chest wall deformity. Symmetrical expansion. LUNGS: Equal air entry with faint crackles in the bilateral posterior bases. CVS: Regular rate and rhythm, normal S1 and S2, no gallops, positive murmurs, no rubs ABDOMEN: Soft, nontender. No hepatosplenomegaly, normal bowel sounds, no guarding or rigidity. EXTREMITIES: No clubbing, no edema, no cyanosis, 2+ pulses and upper and lower extremities. MUSCULOSKELETAL: Muscle strength and tone normal. SPINE: No scoliosis or deformity SKIN: No rashes CENTRAL NERVOUS SYSTEM: Alert and oriented -3. No focal deficits, tone is normal in all 4 extremities. PSYCHIATRIC: Alert and oriented -3. Appropriate affect. Intact judgment and insight. - Labs CBC & Chem 7: 02/17/20 06:58 02/17/20 06:58 Labs: Abnormal Lab Results - Last 24 Hours (Table) 02/17/20 02/17/20 02/17/20 Range/Units 06:58 06:58 06:58 RBC 3.37 L (4.30-5.90) m/uL Hgb 10.3 L (13.0-17.5) gm/dL Hct 32.5 L (39.0-53.0) % RDW 16.3 H (11.5-15.5) % Plt Count 134 L (150-450) k/uL Lymphocytes # 0.6 L (1.0-4.8) k/uL PT 15.6 H (9.0-12.0) sec INR 1.6 H (<1.2) Sodium 136 L (137-145) mmol/L BUN 35 H (9-20) mg/dL Creatinine 1.48 H (0.66-1.25) mg/dL Total Protein 6.0 L (6.3-8.2) g/dL Albumin 3.4 L (3.5-5.0) g/dL Assessment and Plan Assessment: 1 Acute on chronic dyspnea related to known history of valvular heart disease, severe pulmonary hypertension, and mild exacerbation of diastolic CHF. Transesophageal echocardiogram reveals severe eccentric mitral care dictation and severe tricuspid regurgitation and patent foramen ovale with presence of PFO closure device in residual shunt. Cardiac catheterization revealed significant coronary artery disease and the plan is for bypass grafting with mitral valve repair possibly tricuspid repair and closure of patent foramen ovale. 2 Small bilateral pleural effusions, too small to drain, with recent history of right-sided thoracentesis with removal 1.5 L of pleural fluid which was transudate in nature 3 History of chronic atrial fibrillation on Coumadin 4 History of ASD status post percutaneous repair 5 Severe mitral and tricuspid regurgitation, with severe pulmonary hypertension with PA pressure of 70 mmHg 6 History of sick sinus syndrome, status post pacemaker implantation 7 History of sleep apnea on CPAP 8 Hypertension 9 Hyperlipidemia 10 History of COPD 11 Previous history of pneumonia 12 Previous history of smoking 13 History of coronary artery disease with previous stenting 14 Chronic kidney disease stage III Plan: The patient was seen and evaluated by Dr. Kecia Aggarwal once cleared by cardiology Home oxygen Continue home CPAP Will need full PFT and further evaluation by pulmonary prior to surgical clearance Surgery tentatively scheduled for 03/11/[address] services I, the cosigning physician, performed a history & physical examination of the patient. Lungs sounds with crackles in the bilateral posterior bases. Maintaining good O2 saturations in the 90s on 4 L/m per nasal cannula. I discussed the assessment and plan of care with my nurse practitioner, Mable Castanon. I attest to the above note as dictated by her.
[2020-02-17] MEDS: WARFARIN 1 MG TAB PO SCH (18:31)
[2020-02-17] MEDS: amLODIPine 10 MG TAB PO SCH (21:55)
[2020-02-17] MEDS: ASPIRIN 81 MG PO SCH (21:55)
[2020-02-17] MEDS: ATORVASTATIN 40 MG TAB PO SCH (21:55)
[2020-02-18 06:41] LABS: Anisocytosis Slight; Basophils % (A) 0 %; Eosinophils # (A) 0.3 k/uL (0-0.7); Eosinophils % (A) 4 %; HCT 32.3 % (39.0-53.0); HGB 10.4 gm/dL (13.0-17.5); Hypochromasia Slight; Lymphocytes # (A) 0.5 k/uL (1.0-4.8); Lymphocytes % (A) 8 %; MCH 30.5 pg (25.0-35.0); MCHC 32.1 g/dL (31.0-37.0); Monocytes # (A) 0.4 k/uL (0-1.0); Monocytes % (A) 6 %; Neutrophils # (A) 5.3 k/uL (1.3-7.7); Neutrophils % (A) 79 %; Platelet Count 136 k/uL (150-450); RDW 16.3 % (11.5-15.5); WBC 6.6 k/uL (3.8-10.6)
[2020-02-18 06:45] LABS: INR 1.6 (<1.2); Prothrombin Time 15.8 sec (9.0-12.0)
[2020-02-18 06:49] LABS: Albumin 3.5 g/dL (3.5-5.0); Calcium 8.6 mg/dL (8.4-10.2); Potassium 4.1 mmol/L (3.5-5.1); Total Protein 6.2 g/dL (6.3-8.2)
--- NOTE | 2020-02-18 09:55 | P.PN ---
Subjective Progress Note Date: 02/18/20 Principal diagnosis: This is a 79-year-old male who came in with shortness of breath and is known to us with chronic kidney disease with a baseline creatinine of 1.5 He had cardiac catheterization on 02/14/2020, showing significant coronary artery disease. He is known with coronary artery disease has had a history of angioplasty and stent in the past as well as chronic atrial fibrillation and valvular heart disease. He also is known with COPD and sleep apnea. Right pleural effusion and thoracentesis He is diagnosed with congestive heart failure. Is being diuresed. He continues to feel short of breath on exertion is on nasal cannula oxygen. No dizziness. Able to walk. No chest pain. His vital signs are stable blood pressure in the 120 to 1:30 range, urine output is documented at 900 mL for the last 24 hours. Objective - Vital Signs Vital signs: Vital Signs Temp 98.2 F 02/18/20 03:57 Pulse 64 02/18/20 03:57 Resp 18 02/18/20 03:57 BP 127/60 02/18/20 03:57 Pulse Ox 94 L 02/18/20 03:57 Intake & Output 02/17/20 02/18/20 02/18/20 18:59 06:59 18:59 Intake Total 827 Output Total 450 Balance 377 Weight 73.6 kg Intake: Oral 827 Output: Urine 450 Other: Voiding Method Toilet # Voids 1 Exertion is awake alert oriented comfortable HEENT exam no JVP neck is supple no facial asymmetry Heart sounds are unremarkable for any murmur rub. Lungs are clear to auscultation fair air entry bilaterally Abdomen soft nontender Extremity exam reveals no edema Neurologically awake alert oriented - Labs CBC & Chem 7: 02/18/20 06:09 02/18/20 06:09 Labs: Abnormal Lab Results - Last 24 Hours (Table) 02/18/20 02/18/20 02/18/20 Range/Units 06:09 06:09 06:09 RBC 3.40 L (4.30-5.90) m/uL Hgb 10.4 L (13.0-17.5) gm/dL Hct 32.3 L (39.0-53.0) % RDW 16.3 H (11.5-15.5) % Plt Count 136 L (150-450) k/uL Lymphocytes # 0.5 L (1.0-4.8) k/uL PT 15.8 H (9.0-12.0) sec INR 1.6 H (<1.2) BUN 31 H (9-20) mg/dL Creatinine 1.44 H (0.66-1.25) mg/dL Total Protein 6.2 L (6.3-8.2) g/dL Assessment and Plan Plan: Impression 1. 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 An element of acute kidney injury, creatinine peaked to 1.9, improved 1.4 Which is his baseline. Etiology was cardiorenal syndrome,'s congestive heart failure 3. Status post cardiac catheterization 02/14/2020, stable 4. Congestive heart failure stable, compensated 5. Recommended to have coronary artery bypass graft and mitral valve repair as well as tricuspid valve repair 6. History of PFO on the cardiac cath Recommendation 1. will obtain chest x-ray as he continues to feel short of breath and his urine output is adequate but not excessive 2. Strict I's and O's 3. continue Bumex for right now 1 mg twice a day
[2020-02-18] MEDS ORDERED: ISOSORBIDE MONONITRATE ER 30 MG TAB.ER.24H PO STA (10:13)
[2020-02-18] MEDS: METOPROLOL TARTRATE 25 MG TAB PO SCH (10:58)
[2020-02-18] MEDS: MULTIVITAMINS, THERA 1 EACH TAB PO SCH (10:59)
[2020-02-18] MEDS: allopurinoL 300 MG TAB PO SCH (10:59)
[2020-02-18] MEDS: POTASSIUM CHLORIDE ER 20 MEQ TAB.ER PO SCH ×2 (10:59→21:23)
[2020-02-18] MEDS: ASCORBIC ACID 500 MG TAB PO SCH (10:59)
[2020-02-18] MEDS: FOLIC ACID 1 MG TAB PO SCH (10:59)
[2020-02-18] MEDS: BUMETANIDE 0.25 MG/ML 4 ML VIAL IVP SCH ×2 (10:59→21:23)
[2020-02-18] MEDS: LORATADINE 10 MG TAB PO SCH (10:59)
[2020-02-18] MEDS: FERROUS SULFATE 325 MG TAB PO SCH (10:59)
--- NOTE | 2020-02-18 11:57 | XR ---
EXAMINATION TYPE: XR chest 2V DATE OF EXAM: 02/18/2020 COMPARISON: 02/12/2020 HISTORY: 79-year-old male CHF TECHNIQUE: PA and lateral views FINDINGS: Heart mildly enlarged. Aorta within normal limits. Focal medial right basilar opacity. Possible trace left effusion. Left anterior chest wall pacemaker generator with right ventricular lead. IMPRESSION: 1. Mild cardiomegaly. Trace left pleural effusion could reflect sequela of mild CHF. 2. Focal medial right basilar atelectasis and/or consolidation appears new. Correlate for any symptom s of pneumonia.
--- NOTE | 2020-02-18 12:37 | P.PN ---
Subjective HISTORY OF PRESENTING ILLNESS This is a pleasant 79-year-old male past medical history significant for coronary artery disease status post PCI of RCA and circumflex, chronic persistent atrial fibrillation on long-term anticoagulation, sick sinus syndrome status post permanent pacemaker implantation, pulmonary hypertension, diastolic heart failure, history of PFO status post closure and hypertension. AVIVA revealed severe mitral regurgitation, severe tricuspid regurgitation, severe pulmonary hypertension with an RVSP of 70, biatrial enlargement presence of PFO closure device with residual shunt and preserved LV systolic function. He underwent cardiac catheterization revealing previously stented RCA in the midportion is patent, a lesion of about 50% between the stented segment in the distal branches, left main free of significant disease, LAD and circumflex both have ostial and proximal 70-80% calcified stenosis, the previously stented circumflex is patent. He is seen and examined sitting up in distress. He denies chest pain or shortness of breath at rest. He continues to have exertional shortness of breath. Blood pressure 127/60 heart rate 64 afebrile maintaining oxygen saturation on nasal cannula. Laboratory data reviewed, WBC 6.6, hemoglobin 10.4, platelets 136, INR 1.6, sodium 137, potassium 4.1 and creatinine 1.44. Currently maintained on amlodipine 10 mg at bedtime, aspirin 81 mg daily, atorvastatin 40 mg daily, Bumex 1 mg IV push twice a day per nephrology, Imdur 30 mg daily, metoprolol 25 mg daily, daily potassium supplementation and Coumadin 1 mg daily. PHYSICAL EXAMINATION CONSTITUTIONAL: No apparent distress. HEENT: Head is normocephalic. Pupils are equal, round. Sclerae anicteric. Mucous membranes of the mouth are moist. No JVD. No carotid bruit. CHEST EXAMINATION: Lungs are clear to auscultation. No chest wall tenderness is noted on palpation or with deep breathing. HEART EXAMINATION: Irregular rate and rhythm. S1, S2 heard. Systolic ejection murmur at the left sternal border and apex, no gallops or rub. EXTREMITIES: 2+ peripheral pulses, no lower extremity edema and no calf tenderne ss. ASSESSMENT Exertional dyspnea secondary to progression of underlying CAD, severe valvular heart disease and pulmonary hypertension Chronic diastolic heart failure Severe pulmonary hypertension Valvular heart disease, severe MR and TR Chronic persistent atrial fibrillation on long-term anticoagulation with Coumadin Sick sinus syndrome status post permanent pacemaker implantation Hypertension Dyslipidemia Coronary artery disease status post PCI with progression of disease Chronic kidney disease s/p PFO closure with residual shunt noted PLAN Continue IV diuresis per nephrology Increase Imdur to [address] Naylor plans for surgical intervention March 11, pt is nervous to go home. Hopefully his symptoms will improve by tomorrow with medication changes made today. Nurse Practitioner note has been reviewed, I agree with a documented findings and plan of care. Patient was seen and examined. Objective - Vital Signs Vital signs: Vital Signs Temp 98.2 F 02/18/20 03:57 Pulse 64 02/18/20 03:57 Resp 18 02/18/20 03:57 BP 127/60 02/18/20 03:57 Pulse Ox 94 L 02/18/20 03:57 Intake & Output 02/17/20 02/18/20 02/18/20 18:59 06:59 18:59 Intake Total 827 Output Total 450 Balance 377 Weight 73.6 kg Intake: Oral 827 Output: Urine 450 Other: Voiding Method Toilet # Voids 1 - Labs CBC & Chem 7: 02/18/20 06:09 02/18/20 06:09 Labs: Abnormal Lab Results - Last 24 Hours (Table) 02/18/20 02/18/20 02/18/20 Range/Units 06:09 06:09 06:09 RBC 3.40 L (4.30-5.90) m/uL Hgb 10.4 L (13.0-17.5) gm/dL Hct 32.3 L (39.0-53.0) % RDW 16.3 H (11.5-15.5) % Plt Count 136 L (150-450) k/uL Lymphocytes # 0.5 L (1.0-4.8) k/uL PT 15.8 H (9.0-12.0) sec INR 1.6 H (<1.2) BUN 31 H (9-20) mg/dL Creatinine 1.44 H (0.66-1.25) mg/dL Total Protein 6.2 L (6.3-8.2) g/dL
--- NOTE | 2020-02-18 12:43 | P.PN ---
Subjective Progress Note Date: 02/18/20 Principal diagnosis: Shortness of breath This is a 79-year-old patient of Dr. Mojica, who we have previously seen in consultation in January, when the patient was hospitalized for dyspnea related to acute exacerbation of chronic congestive heart failure, and patient had bilateral pleural effusions, right greater than left, and underwent a right- sided thoracentesis on 01/21/[address] Kirkpatrick would removal of 1.5 L of turbid dark yellowish pleural fluid which turned out to be transudative in nature and consistent with the patient's presentation and acute exacerbation of diastolic heart failure. patient had an echocardiogram on 2019 which showed mild concentric LVH, with the EF of 50-55%, mild aortic regurgitation, mild mitral regurgitation, severe tricuspid regurgitation and severe pulmonary hypertension with PA pressure of 59.5 mmHg, there was moderate pulmonic regurgitation. Patient has a known history of chronic A. fib on Coumadin, past medical history of coronary artery disease with stents, sick sinus syndrome status post permanent pacemaker implantation, previous history of ASD status post percutaneous closure, COPD, hypertension, hyperlipidemia, previous history of pneumonia, sleep apnea on CPAP. on 02/12/2020 patient came into the emergency department for evaluation of progressive dyspnea, for the past 3 days, exertional dyspnea, patient denied any chest pain, no fever, chills, no significant cough or phlegm production, no nausea vomiting, no chills, no sweats, history is x-ray showed cardiomegaly with perihilar and interstitial ch anges and a small pleural effusions. 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 lab work showed the no evidence of leukocytosis, white blood cell, 7.9, hemoglobin is 12, INR is therapeutic at 2.1, electrolytes were unremarkable, BUN is 57 creatinine is 1.9. Troponins were negative 2, at less than 0.012, proBNP is 1790. patient had a transesophageal echocardiogram today which showed a severe mitral regurgitation which was eccentric, severe tricuspid regurgitation, and severe pulmonary hypertension with PA pressure of 70, biatrial enlargement, presence of PFO closure device with residual shunt, and preserved LV function, and no evidence of clot in the left atrial appendage. patient appears to be calm and comfortable currently, he is on 4 L of oxygen his pulse ox of 95%, denies any chest pain, he is afebrile, he was started on Demadex. Cardiology is following. The patient is seen today 02/14/2020 in follow-up on the selective care unit. He is currently awake and alert in no acute distress. Resting quite comfortably in bed. He is maintaining O2 saturations in the low 90s on 4 L/m per nasal cannula. He is afebrile. Hemodynamically stable. He did undergo AVIVA yesterday that revealed severe eccentric mitral regurgitation and severe tricuspid regurgitation and patent foramen ovale. The plan is for cardiac catheterization today. White count 7.4. Hemoglobin 10.5. INR 2.4. Sodium 140. Potassium 3.7. Creatinine 1.82. Remains on IV diuretics. The patient is seen today 02/15/2020 in follow-up on the selective care unit. He is currently sitting up in a chair at the bedside. Awake and alert in no acute distress. Denies any worsening shortness of breath, cough or congestion. Maintaining O2 saturation in low 90s on 4 L/m per nasal cannula. He is afebrile. Hemodynamically stable. He did undergo cardiac catheterization yesterday that revealed a previously stented RCA in the midportion is patent. There is a lesion of 50% between the site stented segments and distal branches. LAD and circumflex both have ostial and proximal 70-80% calcified stenosis. Previously stented circumflex was patent. Coronary artery bypass grafting is recommended. The patient will also require repair of mitral valve and possibly tricuspid valve and closure of a PFO. Cardiothoracic services are on the case. Carotid Dopplers revealed no significant stenosis bilaterally. Preoperative FEV1 value 37% of predicted. The patient is seen today 02/16/2020 in follow-up on the selective care unit. He is currently resting comfortably in bed. Awake and alert in no acute distress. He is maintaining O2 saturations in the low 90s on 4 L/m per nasal cannula. Afebrile. Hemodynamically stable. Denies any worsening shortness of breath, cough or congestion. No chest pain or palpitations. INR 1.7. The patient is seen today 02/17/2020 in follow-up on the selective care unit. He is currently sitting up in a chair at the bedside. Awake and alert in no acute distress. Denies any shortness of breath, cough or congestion. No chest pain or palpitations. Maintaining O2 saturations in the 90s on 4 L/m per nasal cannula. He is afebrile. White count 6.6. Hemoglobin 10.3. INR 1.6. Sodium 136. Potassium 4.5. Creatinine 1.48. The patient is seen today 02/18/2020 in follow-up on the selective care unit. He is currently resting comfortably in bed. Awake and alert in no acute distress. Still requiring 3 L nasal cannula to maintain O2 saturation in the 90s. Breathing is easier today compared to yesterday. Chest x-ray shows mild cardiomegaly. Trace left pleural effusion. Mild CHF. Right basilar atelectasis. He remains on IV diuretics in the form of Bumex. White count 6.6. Hemoglobin 10.4. INR 1.6. Sodium 137. Potassium 4.1. Creatinine 1.44. Objective - Vital Signs Vital signs: Vital Signs Temp 98.2 F 02/18/20 03:57 Pulse 64 02/18/20 03:57 Resp 18 02/18/20 03:57 BP 127/60 02/18/20 03:57 Pulse Ox 94 L 02/18/20 03:57 Intake & Output 02/17/20 02/18/20 02/18/20 18:59 06:59 18:59 Intake Total 827 Output Total 450 Balance 377 Weight 73.6 kg Intake: Oral 827 Output: Urine 450 Other: Voiding Method Toilet # Voids 1 - Exam GENERAL EXAM: Alert, very pleasant, 79-year-old male patient, on 3 L of oxygen with pulse ox of 94%, comfortable in no apparent distress. HEAD: Normocephalic/atraumatic. EYES: Normal reaction of pupils, equal size. Conjunctiva pink, sclera white. NOSE: Clear with pink turbinates. THROAT: No erythema or exudates. NECK: No masses, no JVD, no thyroid enlargement, no adenopathy. CHEST: No chest wall deformity. Symmetrical expansion. LUNGS: Equal air entry with faint crackles in the bilateral posterior bases. CVS: Regular rate and rhythm, normal S1 and S2, no gallops, positive murmurs, no rubs ABDOMEN: Soft, nontender. No hepatosplenomegaly, normal bowel sounds, no guarding or rigidity. EXTREMITIES: No clubbing, no edema, no cyanosis, 2+ pulses and upper and lower extremities. MUSCULOSKELETAL: Muscle strength and tone normal. SPINE: No scoliosis or deformity SKIN: No rashes CENTRAL NERVOUS SYSTEM: No focal deficits, tone is normal in all 4 extremities. PSYCHIATRIC: Alert and oriented -3. Appropriate affect. Intact judgment and insight. - Labs CBC & Chem 7: 02/18/20 06:09 02/18/20 06:09 Labs: Abnormal Lab Results - Last 24 Hours (Table) 02/18/20 02/18/20 02/18/20 Range/Units 06:09 06:09 06:09 RBC 3.40 L (4.30-5.90) m/uL Hgb 10.4 L (13.0-17.5) gm/dL Hct 32.3 L (39.0-53.0) % RDW 16.3 H (11.5-15.5) % Plt Count 136 L (150-450) k/uL Lymphocytes # 0.5 L (1.0-4.8) k/uL PT 15.8 H (9.0-12.0) sec INR 1.6 H (<1.2) BUN 31 H (9-20) mg/dL Creatinine 1.44 H (0.66-1.25) mg/dL Total Protein 6.2 L (6.3-8.2) g/dL Assessment and Plan Assessment: 1 Acute on chronic dyspnea related to known history of valvular heart disease, severe pulmonary hypertension, and mild exacerbation of diastolic CHF. Transesophageal echocardiogram reveals severe eccentric mitral care dictation and severe tricuspid regurgitation and patent foramen ovale with presence of PFO closure device in residual shunt. Cardiac catheterization revealed significant coronary artery disease and the plan is for bypass grafting with mitral valve repair possibly tricuspid repair and closure of patent foramen ovale. 2 Small bilateral pleural effusions, too small to drain, with recent history of right-sided thoracentesis with removal 1.5 L of pleural fluid which was transudate in nature 3 History of chronic atrial fibrillation on Coumadin 4 History of ASD status post percutaneous repair 5 Severe mitral and tricuspid regurgitation, with severe pulmonary hypertension with PA pressure of 70 mmHg 6 History of sick sinus syndrome, status post pacemaker implantation 7 History of sleep apnea on CPAP 8 Hypertension 9 Hyperlipidemia 10 History of COPD 11 Previous history of pneumonia 12 Previous history of smoking 13 History of coronary artery disease with previous stenting 14 Chronic kidney disease stage III Plan: The patient was seen and evaluated by Dr. Mcdonnell Chest x-ray and labs reviewed Continued on IV diuretics Continue to utilize the incentive spirometer Evaluate for home oxygen Continue home CPAP Will need full PFT and further evaluation by pulmonary this week Surgery tentatively scheduled for 03/11/[address] services I, the cosigning physician, performed a history & physical examination of the patient. Lungs sounds with crackles in the bilateral posterior bases. Maintaining good O2 saturations in the 90s on 3 L/m per nasal cannula. I discussed the assessment and plan of care with my nurse practitioner, Mable Castanon. I attest to the above note as dictated by her.
--- NOTE | 2020-02-18 15:01 | P.PN ---
Subjective Progress Note Date: 02/18/20 Von Mascorro, is a 79-year-old male, who presented to [facility] emergency room with a chief complaint of worsening shortness of breath, patient had recent hospitalization with similar complaint at that time he had right sided pleural effusion and underwent thoracentesis, he was discharged home and was followed as outpatient by pulmonary and cardiology, his condition started to worsen again about 5 days ago when he started having severe shortness of breath and decided today to come to emergency room. Patient was evaluated in emergency room his temperature on presentation was 97.6 pulse 69 respiration 22 blood pressure 126/72 pulse ox 91% on room air, his white blood count was 7.9 hemoglobin 12.1 platelet count 141 INR was therapeutic at 2.1 BUN 57 creatinine 1.9 to glucose 173 alkaline phosphatase 128 and troponin level less than 0.12 EKG done in the emergency room revealed atrial fibrillation, chest x-ray revealed evidence of cardiomegaly with perihilar and interstitial changes and small effusions bilaterally suggestive of mild CHF. Patient was admitted to telemetry floor cardiology consultation and pulmonary consultation was requested. Patient has a known history of chronic atrial fibrillation maintained on Coumadin he also has a known history of coronary artery disease with previous history of angioplasty and stent placement in the past, he has known history of valvular heart disease and history of pulmonary hypertension, he has a known history of sick sinus syndrome status post pacemaker placement he has a known history of ASD status post percutaneous closure he has known history of hypertension, hyperlipidemia, history of COPD, history of obstructive sleep apnea maintained on CPAP, and history of previous episodes of pneumonia in the past. On review of systems patient is alert and oriented 3 in no apparent distress there is no fever or chills no headache or dizziness he is complaining of shortness of breath with any activity he has occasional cough with clear sputum production he has some episodes of pain and pressure in the left side of the chest that last for few seconds at that time otherwise he denies any complaints no nausea or vomiting no abdominal pain no diarrhea no blood in the stools no burning with urination no frequency or urgency and no hematuria. on 02/13/2020 patient was seen and examined on the medical floor he is alert and oriented 3 in no apparent distress he is still complaining of shortness of breath with any activity otherwise he denies any complaints there is no fever or chills no headache or dizziness no chest pain no palpitation no cough no nausea or vomiting no abdominal pain no diarrhea no blood in the stools oh burning with urination no frequency or urgency no hematuria patient underwent AVIVA today aw aiting further recommendation from cardiology, BUN and creatinine are elevated Will consult nephrology. On 02/14/2020 patient is alert and oriented 3 status post cardiac catheterization today. Per nursing staff heart catheterization revealed multivessel disease along with severe mitral and tricuspid regurg with severe pulmonary hypertension. Cardiothoracic surgery has been consulted for dinesh ation. Creatinine is trending down to 1.82 and bun 45. Nephrology services are following. Patient remains on IV Lasix. At this time patient denies chest pain or shortness of breath. Patient denies nausea vomiting or diarrhea. Patient denies any urinary burning or frequency On 02/15/2020 patient was seen and examined on the telemetry floor he is alert and oriented 3 in no apparent distress he is complaining of shortness of breath with any activity otherwise he denies any complaints there is no fever or chills no headache or dizziness no chest pain no cough no palpitation no nausea or v omiting no abdominal pain no diarrhea no blood in the stools, no burning with urination no frequency or urgency and no hematuria, at this time patient is being evaluated by cardiovascular surgery, awaiting decision regard to intervention. Medication reviewed will follow closely. Patient is having a nosebleed Will hold Coumadin today and recheck INR in a.m.. On 02/16/2020 patient alert and oriented 3. Did discuss case with cardiothoracic team patient is still getting worked up for possible cardiothoracic surgery. Cardiology pulmonary and nephrology services are currently following. INR 1.7 Coumadin resumed per cardiology. Creatinine remained stable at 1.52 and bun 40. Per cardiothoracic team patient will continue to be medically managed throughout the weekend. Patient remains short of breath. Patient denies chest pain. Patient denies nausea vomiting or diarrhea. Patient denies any urinary burning or frequency On 02/17/2020 patient was seen and examined on the telemetry floor, he is alert and oriented 3 in no distress, he is still complaining of shortness of breath with any activity he is maintained on oxygen via nasal cannula at 6 L/m his oxygen saturation is 90% otherwise he denies any complaints there is no fever or chills no headache or dizziness, no chest pain no palpitation no cough no nausea or vomiting no abdominal pain no diarrhea no blood in the stools no burning with urination no frequency or urgency and no hematuria. On 02/18/2020 patient was seen and examined on the medical floor he is alert and oriented 3 in no apparent distress he is complaining of shortness of breath with any activity otherwise he denies any complaints there is no fever or chills no headache or dizziness no chest pain no cough no nausea or vomiting no abdominal pain no diarrhea no blood in the stools no burning with urination no frequency or urgency and no hematuria. Patient will have physical therapy possible discharge to home in the next 1-2 days he may need oxygen at home he would need to have pulmonary function test for surgical clearance. Cardiac surgery is scheduled on March 11, 2020 patient is scared of going home, [facility] placement was discussed with patient in details he will talk to his and let me know about his decision. Objective - Vital Signs Vital signs: Vital Signs Temp 98.2 F 02/18/20 03:57 Pulse 64 02/18/20 03:57 Resp 18 02/18/20 03:57 BP 127/60 02/18/20 03:57 Pulse Ox 94 L 02/18/20 03:57 Intake & Output 02/17/20 02/18/20 02/18/20 18:59 06:59 18:59 Intake Total 827 Output Total 450 Balance 377 Weight 73.6 kg Intake: Oral 827 Output: Urine 450 Other: Voiding Method Toilet # Voids 1 - Exam In general patient is alert and oriented 3 in no distress HEENT head normocephalic and atraumatic Neck is supple no JVD no goiter no lymphadenopathy Chest exam reveals a few scattered rhonchi no wheezing Cardiac exam reveals regular heart sounds no gallops no murmurs Abdomen is soft nontender no organomegaly with normal bowel sounds Extremity exam reveals no edema no cyanosis or clubbing Neurological examination reveals no gross focal deficit - Labs CBC & Chem 7: 02/18/20 06:09 02/18/20 06:09 Labs: Abnormal Lab Results - Last 24 Hours (Table) 02/18/20 02/18/20 02/18/20 Range/Units 06:09 06:09 06:09 RBC 3.40 L (4.30-5.90) m/uL Hgb 10.4 L (13.0-17.5) gm/dL Hct 32.3 L (39.0-53.0) % RDW 16.3 H (11.5-15.5) % Plt Count 136 L (150-450) k/uL Lymphocytes # 0.5 L (1.0-4.8) k/uL PT 15.8 H (9.0-12.0) sec INR 1.6 H (<1.2) BUN 31 H (9-20) mg/dL Creatinine 1.44 H (0.66-1.25) mg/dL Total Protein 6.2 L (6.3-8.2) g/dL Assessment and Plan Plan: 1. Worsening shortness of breath, cause is not entirely clear at this time, pulmonary consultation angina cardiology consultation are requested 2. Episodes of chest pain, no evidence of acute coronary syndrome at this time, troponin level so far are negative, possible stress test during this admission per cardiology. 3. Underlying history of chronic kidney disease 4. Underlying history of coronary artery disease 5. Underlying history of pulmonary hypertension 6. Underlying history of valvular heart disease, with moderate to severe mitral regurgitation and moderate to severe tricuspid regurgitation on AVVIA of August 2018 7. Underlying history of atrial fibrillation maintained on Coumadin INR is in therapeutic range. 8. Nosebleed Will hold Coumadin today and recheck INR tomorrow Awaiting decision from cardiovascular surgery in regard to timing of intervention At this time patient was seen and examined Home medications reviewed and reordered Consultation for pulmonary and cardiology, nephrology and cardiovascular surgery are following Will follow closely
[2020-02-18 15:08] VITALS: BMI 25.4
[2020-02-18] MEDS: ISOSORBIDE MONONITRATE ER 30 MG TAB.ER.24H PO SCH (19:32)
[2020-02-18] MEDS: amLODIPine 10 MG TAB PO SCH (21:23)
[2020-02-18] MEDS: ASPIRIN 81 MG PO SCH (21:23)
[2020-02-18] MEDS: ATORVASTATIN 40 MG TAB PO SCH (21:23)
[2020-02-18] MEDS: WARFARIN 2 MG TAB PO SCH (21:26)
[2020-02-19 08:02] LABS: Anisocytosis Slight; Basophils % (A) 0 %; Eosinophils # (A) 0.2 k/uL (0-0.7); Eosinophils % (A) 3 %; HCT 33.7 % (39.0-53.0); HGB 10.6 gm/dL (13.0-17.5); Hypochromasia Slight; Lymphocytes # (A) 0.6 k/uL (1.0-4.8); Lymphocytes % (A) 8 %; MCH 29.9 pg (25.0-35.0); MCHC 31.3 g/dL (31.0-37.0); MCV 95.4 fL (80.0-100.0); Mean Platelet Volume 7.7; Monocytes # (A) 0.5 k/uL (0-1.0); Monocytes % (A) 7 %; Neutrophils # (A) 5.3 k/uL (1.3-7.7); Neutrophils % (A) 79 %; Platelet Count 130 k/uL (150-450); RBC 3.53 m/uL (4.30-5.90); RDW 16.3 % (11.5-15.5); WBC 6.6 k/uL (3.8-10.6)
[2020-02-19 08:12] LABS: INR 1.7 (<1.2); Prothrombin Time 16.4 sec (9.0-12.0)
[2020-02-19 08:13] LABS: Albumin 3.5 g/dL (3.5-5.0); Calcium 8.8 mg/dL (8.4-10.2); Potassium 4.1 mmol/L (3.5-5.1); Total Protein 6.3 g/dL (6.3-8.2)
[2020-02-19] MEDS: METOPROLOL TARTRATE 25 MG TAB PO SCH (08:50)
[2020-02-19] MEDS: ASCORBIC ACID 500 MG TAB PO SCH (08:50)
[2020-02-19] MEDS: LORATADINE 10 MG TAB PO SCH (08:50)
[2020-02-19] MEDS: MULTIVITAMINS, THERA 1 EACH TAB PO SCH (08:50)
[2020-02-19] MEDS: FERROUS SULFATE 325 MG TAB PO SCH (08:50)
[2020-02-19] MEDS: allopurinoL 300 MG TAB PO SCH (08:51)
[2020-02-19] MEDS: FOLIC ACID 1 MG TAB PO SCH (08:51)
[2020-02-19] MEDS: POTASSIUM CHLORIDE ER 20 MEQ TAB.ER PO SCH (08:51)
[2020-02-19] MEDS: BUMETANIDE 0.25 MG/ML 4 ML VIAL IVP SCH (08:53)
[2020-02-19 08:55] VITALS: TEMP 97.6
[2020-02-19] MEDS ORDERED: ISOSORBIDE MONONITRATE ER 60 MG TAB.ER.24H PO SCH (09:00)
--- NOTE | 2020-02-19 09:58 | P.PN ---
Subjective Patient is seen in follow-up for chronic kidney disease. Renal function is stable. Good urine output. Edema is improving. No chest pain but does get dyspneic with exertion. Vital signs are stable. General: The patient appeared well nourished and normally developed. HEENT: Head exam is unremarkable. Neck is without jugular venous distension. LUNGS: Breath sounds decreased. HEART: Rate and Rhythm are regular. ABDOMEN: Soft, nontender. EXTREMITITES: 1+ edema. Objective - Vital Signs Vital signs: Vital Signs Temp 97.6 F 02/19/20 08:45 Pulse 76 02/19/20 08:45 Resp 18 02/19/20 08:45 BP 144/67 02/19/20 08:45 Pulse Ox 90 L 02/19/20 08:45 Intake & Output 02/18/20 02/19/20 02/19/20 18:59 06:59 18:59 Intake Total 472 180 Output Total 1300 Balance -828 180 Weight 73.6 kg 73.1 kg Intake: Oral 472 180 Output: Urine 1300 Other: Voiding Method Toilet - Labs CBC & Chem 7: 02/19/20 07:16 02/19/20 07:16 Labs: Abnormal Lab Results - Last 24 Hours (Table) 02/19/20 02/19/20 02/19/20 Range/Units 07:16 07:16 07:16 RBC 3.53 L (4.30-5.90) m/uL Hgb 10.6 L (13.0-17.5) gm/dL Hct 33.7 L (39.0-53.0) % RDW 16.3 H (11.5-15.5) % Plt Count 130 L (150-450) k/uL Lymphocytes # 0.6 L (1.0-4.8) k/uL PT 16.4 H (9.0-12.0) sec INR 1.7 H (<1.2) BUN 29 H (9-20) mg/dL Creatinine 1.40 H (0.66-1.25) mg/dL Assessment and Plan Plan: Assessment: 1. Chronic kidney disease stage III with baseline creatinine near 1.5. Danielleolo guillermo nephrosclerosis and cardiorenal syndrome. GFR at baseline. 2. Volume overload improving with diuresis. 3. Coronary artery disease status post cardiac catheterization on February 13. Will need CABG and mitral valve repair in the near future. 4. Hypertension with chronic kidney disease. Controlled. Plan: Maintain IV Bumex. Can resume torsemide 20 mg orally twice daily upon discharge. Advised to follow low salt diet and less than 40 ounce fluid restriction per day. Also advised to monitor his weight closely at home. Follow-up outpatient in 1-2 weeks.
[2020-02-19 11:31] VITALS: BP 135/65; PULSE 73
--- NOTE | 2020-02-19 13:49 | ECHOF ---
Referral Reason:assess tricuspid valve, RA and RV MEASUREMENTS -------- HEIGHT: 170.2 cm WEIGHT: 73.0 kg BP: 158/73 RVIDd: 4.8 cm (< 3.3) RAP: 15.00 mmHg RVSP: 73.65 mmHg TAPSE: 24.30 mm FINDINGS -------- Paced rhythm. Limited Study Overall left ventricular systolic function is low-normal with, an EF between 50 - 55 %. There is se ptal flattening in diastole and systole which is consistent with right ventricular pressure and volum e overload. The right ventricle is severely enlarged. The right atrium is markedly enlarged. Electronic pacemaker lead seen in the right ventricular cavi ty. Aortic valve is trileaflet and is mildly thickened. Trace amount of aortic regurgitation. The mitral valve leaflets are mildly thickened. Mild mitral annular calcification present. Mild m itral regurgitation is present. Severe tricuspid regurgitation present. There is severe pulmonary hypertension. The right ventric ular systolic pressure, as measured by Doppler, is 73.65mmHg. Trace/mild (physiologic) pulmonic regurgitation. There is no pericardial effusion. CONCLUSIONS -------- 1. Overall left ventricular systolic function is low-normal with, an EF between 50 - 55 %. 2. There is septal flattening in diastole and systole which is consistent with right ventricular pres sure and volume overload. 3. The right ventricle is severely enlarged. 4. Aortic valve is trileaflet and is mildly thickened. 5. Trace amount of aortic regurgitation. 6. The mitral valve leaflets are mildly thickened. 7. Mild mitral annular calcification present. 8. Mild mitral regurgitation is present. 9. Severe tricuspid regurgitation present. 10. There is severe pulmonary hypertension. 11. The right ventricular systolic pressure, as measured by Doppler, is 73.65mmHg. 12. Trace/mild (physiologic) pulmonic regurgitation. 13. There is no pericardial effusion. CURRICULUM DESIGNER: Anna Dennis RD
[2020-02-19 14:25] VITALS: RESP 20
--- NOTE | 2020-02-19 14:58 | P.PN ---
Subjective Progress Note Date: 02/19/20 This is a 79-year-old gentleman who follows with Dr. KAYLYN Diego in the office. He was in the hospital earlier in January, showed evidence of bilateral effusions, underwent a right-sided thoracentesis by Dr. Kirkpatrick which turned out to be transudate of in nature consistent with congestive heart failure exacerbation. Patient had an echo performed which revealed mild concentric LVH with an ejection fraction of 50-55%, mild aortic regurgitation, mild MR, severe TR and severe pulmonary hypertension with a PA pressure of 59.5, there was moderate pulmonic regurg. Patient has a known history of chronic A. fib, history of coronary artery disease with prior stenting, sick sinus syndrome with prior pacemaker implantation, history of ASD closure, COPD, hypertension, hyperlipidemia, pneumonia, sleep apnea. He presented to the hospital on this occasion because of symptoms of progressive dyspnea. He had a AVIVA which revealed severe mitral regurgitation which was eccentric, severe tricuspid re gurg and severe pulmonary hypertension with a PA pressure of 70, biatrial enlargement, presence of PFO closure device with a shunt and preserved LV function, no evidence of a clot in the left atrial appendage. Patient also underwent a cardiac catheterization which revealed the previously stented RCA in the midportion was patent, there was a lesion of 50% between the stented site segments in the distal branches, LAD and circumflex both had ostial and proximal 70-80% calcified stenosis. Previously stented circumflex was patent. Coronary artery bypass grafting surgery was recommended, patient will also require repair of mitral valve and possibly tricuspid valve with closure of PFO. Cardioth oracic surgery has been consulted. Patient was seen and examined this morning, still complaining of feeling somewhat short of breath. Anticipating discharge home tomorrow morning. He is scheduled tomorrow to undergo a PFT study, I spoke with the pulmonary nurse practitioner who stated that the patient was scheduled at 4 PM tomorrow, the full test could not be done as an inpatient. Blood pressu re 132/60 with a heart rate in the 70s, 91% on 4 L. Blood cell count 6.6, hemoglobin 10.6, platelet count 1:30. Pro time 16.4 with an INR of 1.7, sodium 137, potassium 4.1, BUN 29, creatinine 1.4. Objective - Vital Signs Vital signs: Vital Signs Temp 97.6 F 02/19/20 08:45 Pulse 73 02/19/20 11:00 Resp 20 02/19/20 12:10 BP 135/65 02/19/20 11:00 Pulse Ox 91 L 02/19/20 11:00 Intake & Output 02/18/20 02/19/20 02/19/20 18:59 06:59 18:59 Intake Total 472 417 Output Total 1300 Balance -828 417 Weight 73.6 kg 73.1 kg Intake: Oral 472 417 Output: Urine 1300 Other: Voiding Method Toilet Toilet - Exam PHYSICAL EXAMINATION: GENERAL: 79-year-old gentleman in no acute distress at the time of my examination HEENT: Head is atraumatic, normocephalic. Pupils equal, round. Sclera anicteric. Conjunctiva are clear. Mucous membranes of the mouth are moist. Neck is supple. There is no elevated jugular venous pressure. No carotid bruit is heard. HEART EXAMINATION: S1 and S2 irregularly irregular a systolic ejection murmur is heard CHEST EXAMINATION: Lungs are clear to auscultation and precussion. No chest wall tenderness is noted on palpation or with deep breathing. ABDOMEN: Soft, nontender. Bowel sounds are heard. No organomegaly noted. EXTREMITIES: 2+ peripheral pulses with no evidence of peripheral edema and no calf tenderness noted. NEUROLOGIC patient is awake, alert and oriented 3 . . - Labs CBC & Chem 7: 02/19/20 07:16 02/19/20 07:16 Labs: Abnormal Lab Results - Last 24 Hours (Table) 02/19/20 02/19/20 02/19/20 Range/Units 07:16 07:16 07:16 RBC 3.53 L (4.30-5.90) m/uL Hgb 10.6 L (13.0-17.5) gm/dL Hct 33.7 L (39.0-53.0) % RDW 16.3 H (11.5-15.5) % Plt Count 130 L (150-450) k/uL Lymphocytes # 0.6 L (1.0-4.8) k/uL PT 16.4 H (9.0-12.0) sec INR 1.7 H (<1.2) BUN 29 H (9-20) mg/dL Creatinine 1.40 H (0.66-1.25) mg/dL Assessment and Plan Plan: Assessment and plan: 1 Acute on chronic dyspnea related to known history of valvular heart disease, severe pulmonary hypertension, and mild exacerbation of diastolic CHF. Transesophageal echocardiogram reveals severe eccentric mitral care dictation and severe tricuspid regurgitation and patent foramen ovale with presence of PFO closure device in residual shunt. Cardiac catheterization revealed significant coronary artery disease and the plan is for bypass grafting with mitral valve repair possibly tricuspid repair and closure of patent foramen ovale. 2 Small bilateral pleural effusions, too small to drain, with recent history of right-sided thoracentesis with removal 1.5 L of pleural fluid which was transud ate in nature 3 History of chronic atrial fibrillation on Coumadin 4 History of ASD status post percutaneous repair 5 Severe mitral and tricuspid regurgitation, with severe pulmonary hypertension with PA pressure of 70 mmHg 6 History of sick sinus syndrome, status post pacemaker implantation 7 History of sleep apnea on CPAP 8 Hypertension 9 Hyperlipidemia 10 History of COPD 11 Previous history of pneumonia 12 Previous history of smoking 13 History of coronary artery disease with previous stenting 14 Chronic kidney disease stage III Plan We will discontinue the IV Bumex and change the patient over to oral Bumex. Plan for possible discharge home in 24 hours. Patient is scheduled to undergo PFT study tomorrow afternoon as an outpatient. DNP note has been reviewed, I agree with a documented findings and plan of care. Patient was seen and examined.
[2020-02-19] MEDS ORDERED: BUMETANIDE 1 MG TAB PO SCH (16:00)
--- NOTE | 2020-02-19 16:24 | P.PN ---
Subjective Progress Note Date: 02/19/20 Principal diagnosis: Shortness of breath This is a 79-year-old patient of Dr. Mojica, who we have previously seen in consultation in January, when the patient was hospitalized for dyspnea related to acute exacerbation of chronic congestive heart failure, and patient had bilateral pleural effusions, right greater than left, and underwent a right- sided thoracentesis on 01/21/[address] Kirkpatrick would removal of 1.5 L of turbid dark yellowish pleural fluid which turned out to be transudative in nature and consistent with the patient's presentation and acute exacerbation of diastolic heart failure. patient had an echocardiogram on 2019 which showed mild concentric LVH, with the EF of 50-55%, mild aortic regurgitation, mild mitral regurgitation, severe tricuspid regurgitation and severe pulmonary hypertension with PA pressure of 59.5 mmHg, there was moderate pulmonic regurgitation. Patient has a known history of chronic A. fib on Coumadin, past medical history of coronary artery disease with stents, sick sinus syndrome status post permanent pacemaker implantation, previous history of ASD status post percutaneous closure, COPD, hypertension, hyperlipidemia, previous history of pneumonia, sleep apnea on CPAP. on 02/12/2020 patient came into the emergency department for evaluation of progressive dyspnea, for the past 3 days, exertional dyspnea, patient denied any chest pain, no fever, chills, no significant cough or phlegm production, no nausea vomiting, no chills, no sweats, history is x-ray showed cardiomegaly with perihilar and interstitial changes and a small pleural effusions. 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 lab work showed the no evidence of leukocytosis, white blood cell, 7.9, hemoglobin is 12, INR is therapeutic at 2.1, electrolytes were unremarkable, BUN is 57 creatinine is 1.9. Troponins were negative 2, at less than 0.012, proBNP is 1790. patient had a transesophageal echocardiogram today which showed a severe mitral regurgitation which was eccentric, severe tricuspid regurgitation, and severe pulmonary hypertension with PA pressure of 70, biatrial enlargement, presence of PFO closure device with residual shunt, and preserved LV function, and no evidence of clot in the left atrial appendage. patient appears to be calm and comfortable currently, he is on 4 L of oxygen his pulse ox of 95%, denies any chest pain, he is afebrile, he was started on Demadex. Cardiology is following. The patient is seen today 02/14/2020 in follow-up on the selective care unit. He is currently awake and alert in no acute distress. Resting quite comfortably in bed. He is maintaining O2 saturations in the low 90s on 4 L/m per nasal cannula. He is afebrile. Hemodynamically stable. He did undergo AVIVA yesterday that revealed severe eccentric mitral regurgitation and severe tricuspid regurgitation and patent foramen ovale. The plan is for cardiac catheterization today. White count 7.4. Hemoglobin 10.5. INR 2.4. Sodium 140. Potassium 3.7. Creatinine 1.82. Remains on IV diuretics. The patient is seen today 02/15/2020 in follow-up on the selective care unit. He is currently sitting up in a chair at the bedside. Awake and alert in no acute distress. Denies any worsening shortness of breath, cough or congestion. Maintaining O2 saturation in low 90s on 4 L/m per nasal cannula. He is afebrile. Hemodynamically stable. He did undergo cardiac catheterization yesterday that revealed a previously stented RCA in the midportion is patent. There is a lesion of 50% between the site stented segments and distal branches. LAD and circumflex both have ostial and proximal 70-80% calcified stenosis. Previously stented circumflex was patent. Coronary artery bypass grafting is recommended. The patient will also require repair of mitral valve and possibly tricuspid valve and closure of a PFO. Cardiothoracic services are on the case. Carotid Dopplers revealed no significant stenosis bilaterally. Preoperative FEV1 value 37% of predicted. The patient is seen today 02/16/2020 in follow-up on the selective care unit. He is currently resting comfortably in bed. Awake and alert in no acute distress. He is maintaining O2 saturations in the low 90s on 4 L/m per nasal cannula. Afebrile. Hemodynamically stable. Denies any worsening shortness of breath, cough or congestion. No chest pain or palpitations. INR 1.7. The patient is seen today 02/17/2020 in follow-up on the selective care unit. He is currently sitting up in a chair at the bedside. Awake and alert in no acute distress. Denies any shortness of breath, cough or congestion. No chest pain or palpitations. Maintaining O2 saturations in the 90s on 4 L/m per nasal cannula. He is afebrile. White count 6.6. Hemoglobin 10.3. INR 1.6. Sodium 136. Potassium 4.5. Creatinine 1.48. The patient is seen today 02/18/2020 in follow-up on the selective care unit. He is currently resting comfortably in bed. Awake and alert in no acute distress. Still requiring 3 L nasal cannula to maintain O2 saturation in the 90s. Breathing is easier today compared to yesterday. Chest x-ray shows mild cardiomegaly. Trace left pleural effusion. Mild CHF. Right basilar atelectasis. He remains on IV diuretics in the form of Bumex. White count 6.6. Hemoglobin 10.4. INR 1.6. Sodium 137. Potassium 4.1. On 02/19/2020 patient seen in follow-up on selective care unit. He is resting comfortably in bed, in no acute distress, does have exertional dyspnea, he remains on supplemental oxygen, and 4 L with a pulse ox of 90-91%, his been afebrile, hemodynamically stable. His last chest x-ray from 02/18/2020 showed a trace left pleural effusion and a focal medial right basilar atelectasis and/or consolidation. No complaints of chest pain. Echocardiogram is completed showing low-normal EF of 50-55%, severe enlargement of the right ventricle, trace amount of aortic regurgitation, mild mitral regurgitation, severe tricuspid regurgitation, with right-sided pressures of 73.6 mmHg. Patient has been transitioned to oral Bumex by cardiology, he is on oral anticoagulation in the form of Coumadin, today's INR is 1.7, rest labs have been reviewed, no leukocytosis, his had no fever or chills, hemoglobin 7.6, edentulous are within normal limits, B1 is 29 creatinine is 1.4. Patient was evaluated by CT surgery, and surgery has been scheduled for March 11 with the patient to go home and have his outpatient PFT tomorrow, Objective - Vital Signs Vital signs: Vital Signs Temp 97.6 F 02/19/20 08:45 Pulse 73 02/19/20 11:00 Resp 20 02/19/20 12:10 BP 135/65 02/19/20 11:00 Pulse Ox 91 L 02/19/20 11:00 Intake & Output 02/18/20 02/19/20 02/19/20 18:59 06:59 18:59 Intake Total 472 417 Output Total 1300 Balance -828 417 Weight 73.6 kg 73.1 kg Intake: Oral 472 417 Output: Urine 1300 Other: Voiding Method Toilet Toilet - Exam GENERAL EXAM: Alert, very pleasant, 79-year-old male patient, on 3 L of oxygen with pulse ox of 91%, comfortable in no apparent distress. HEAD: Normocephalic/atraumatic. EYES: Normal reaction of pupils, equal size. Conjunctiva pink, sclera white. NOSE: Clear with pink turbinates. THROAT: No erythema or exudates. NECK: No masses, no JVD, no thyroid enlargement, no adenopathy. CHEST: No chest wall deformity. Symmetrical expansion. LUNGS: Equal air entry with faint crackles in the bilateral posterior bases. CVS: Regular rate and rhythm, normal S1 and S2, no gallops, positive murmurs, no rubs ABDOMEN: Soft, nontender. No hepatosplenomegaly, normal bowel sounds, no guarding or rigidity. EXTREMITIES: No clubbing, no edema, no cyanosis, 2+ pulses and upper and lower extremities. MUSCULOSKELETAL: Muscle strength and tone normal. SPINE: No scoliosis or deformity SKIN: No rashes CENTRAL NERVOUS SYSTEM: No focal deficits, tone is normal in all 4 extremities. PSYCHIATRIC: Alert and oriented -3. Appropriate affect. Intact judgment and insight. - Labs CBC & Chem 7: 02/19/20 07:16 02/19/20 07:16 Labs: Abnormal Lab Results - Last 24 Hours (Table) 02/19/20 02/19/20 02/19/20 Range/Units 07:16 07:16 07:16 RBC 3.53 L (4.30-5.90) m/uL Hgb 10.6 L (13.0-17.5) gm/dL Hct 33.7 L (39.0-53.0) % RDW 16.3 H (11.5-15.5) % Plt Count 130 L (150-450) k/uL Lymphocytes # 0.6 L (1.0-4.8) k/uL PT 16.4 H (9.0-12.0) sec INR 1.7 H (<1.2) BUN 29 H (9-20) mg/dL Creatinine 1.40 H (0.66-1.25) mg/dL Assessment and Plan Plan: Assessment: #1. Acute on chronic dyspnea related to known history of valvular heart disease, severe pulmonary hypertension, and mild exacerbation of diastolic CHF. Transesophageal echocardiogram reveals severe mitral regurgitation, severe tricuspid regurgitation, and patent ricardo ovale with presence of PFO closure device and residual shunt. Cardiac catheterization revealed significant coronary artery disease and the plan is for bypass grafting with mitral valve repair possibly tricuspid repair and closure of patent ricardo ovale #2. Small bilateral pleural effusions, too small to drain, with recent history of right-sided thoracentesis with removal 1.5 L of pleural fluid which was transudate in nature #3. History of chronic atrial fibrillation on Coumadin #4. History of ASD status post percutaneous repair #5. Severe mitral and tricuspid regurgitation, with severe pulmonary hypertension with PA pressure of 70 mmHg #6. History of sick sinus syndrome, status post pacemaker implantation #7. history of sleep apnea on CPAP #8. Hypertension #9. Hyperlipidemia #10. History of COPD #11.previous history of pneumonia #12. Previous history of smoking #13. History of coronary artery disease with previous stenting #14.Chronic kidney disease stage III Plan: Patient is doing well, no worsening dyspnea, patient will need home oxygen to go home on, his been transitioned to oral diuretics. He is scheduled for outpatient pulmonary function test tomorrow at the hospital at 4 PM. His jung rgery is scheduled for March 11. From pulmonary perspective patient can be considered for discharge home today or tomorrow as long as his been cleared by cardiology, with outpatient follow-up with Dr. Riggins in the office, he will need to complete his outpatient PFT. I performed a history & physical examination of the patient and discussed their management with my nurse practitioner, Yesy Hu. I reviewed the nurse practitioner's note and agree with the documented findings and plan of care. Lung sounds are positive for diminished breath sounds. The findings and the impression was discussed with the patient. I attest to the documentation by the nurse practitioner. Time with Patient: Less than 30
[2020-02-19] MEDS: WARFARIN 2 MG TAB PO SCH (17:10)
--- NOTE | 2020-02-21 10:28 | P.VSCSTY ---
Greater Saphenous Vein Mapping This is bilateral lower extremity greater saphenous vein mapping. Date of service: 02/14/2020 Vein quality and ultrasound appearance: We see no intraluminal thrombus or wall changes. Vein size groin right : 5.8 x 5.1 groin left: 7.0 x 6.0 High thigh right: 3.5 x 3.2 high thigh left: 2.8 x 2.8 Mid thigh right: 3.2 x 2.9 mid thigh left: 2.7 x 3.4 Above-knee right: 3.4 x 3.0 above- knee left: 3.3 x 2.7 Below knee right: 5.6 x 3.8 below-knee left: 2.1 x 1.8 Mid calf right: 3.4 x 2.6 mid calf left: 2.8 x 2.1 Ankle right: 3.8 x 3.1 ankle left: 2.8 x 2.1 Impression: Usable bilateral greater saphenous vein..
--- NOTE | 2020-03-01 15:39 | CONS ---
CONSULTATION ADDENDUM: DATE OF SERVICE: 02/14/2020 Patient was examined. I agree with the above findings from my nurse practitioner. MMODL / IJN: [id number] /
--- NOTE | 2020-03-03 11:52 | P.DS ---
Providers Date of admission: 02/12/20 11:40 Expected date of discharge: 02/19/20 Attending physician: Louis Mondragon Consults: 02/12/20 11:35 Consult Physician Routine Consulting Provider: Emilie Mejia Consult Reason/Comments: Peripheral edema, pulmonary hypertension Do you want consulting provider notified?: Yes Consult Physician Routine Consulting Provider: Peri Mcdonnell Consult Reason/Comments: Pleural effusion, pulmonary hypertension Do you want consulting provider notified?: Yes 02/13/20 12:49 Consult Physician Routine Consulting Provider: Jaquelin Boykin Consult Reason/Comments: CKD Do you want consulting provider notified?: Yes 02/14/20 12:50 Consult Physician Routine Consulting Provider: Danis Naylor Consult Reason/Comments: MV disease, PFO and CAD Do you want consulting provider notified?: Yes Primary care physician: Christin Brink [facility] Course: Discharge diagnosis 1. Worsening shortness of breath related to known history of valvular heart disease severe pulmonary hypertension mild exacerbation of diastolic CHF 2. Episodes of chest pain, no evidence of acute coronary syndrome at this time, troponin level so far are negative, 3. Underlying history of chronic kidney disease 4. Underlying history of coronary artery disease 5. Underlying history of pulmonary hypertension 6. Underlying history of valvular heart disease, with moderate to severe mitral regurgitation and moderate to severe tricuspid regurgitation on AVIVA of August 2018 7. Underlying history of atrial fibrillation maintained on Coumadin INR is in therapeutic range. 8. Nosebleed Will hold Coumadin today and recheck INR tomorrow Valve replacement surgery scheduled for March 11 Outpatient PFTs per pulmonary Hospital course Von Mascorro, is a 79-year-old male, who presented to [facility] emergency room with a chief complaint of worsening shortness of breath, patient had recent hospitalization with similar complaint at that time he had right sided pleural effusion and underwent thoracentesis, he was discharged home and was followed as outpatient by pulmonary and cardiology, his condition started to worsen again about 5 days ago when he started having severe shortness of breath and decided today to come to emergency room. Patient was evaluated in emergency room his temperature on presentation was 97.6 pulse 69 respiration 22 blood pressure 126/72 pulse ox 91% on room air, his white blood count was 7.9 hemoglobin 12.1 platelet count 141 INR was therapeutic at 2.1 BUN 57 creatinine 1.9 to glucose 173 alkaline phosphatase 128 and troponin level less than 0.12 EKG done in the emergency room revealed atrial fibrillation, chest x-ray revealed evidence of cardiomegaly with perihilar and interstitial changes and small effusions bilaterally suggestive of mild CHF. Patient was admitted to telemetry floor cardiology consultation and pulmonary consultation was requested. Patient has a known history of chronic atrial fibrillation maintained on Coumadin he also has a known history of coronary artery disease with previous history of angioplasty and stent placement in the past, he has known history of valvular heart disease and history of pulmonary hypertension, he has a known history of sick sinus syndrome status post pacemaker placement he has a known history of ASD status post percutaneous closure he has known history of hypertension, hyperlipidemia, history of COPD, history of obstructive sleep apnea maintained on CPAP, and history of previous episodes of pneumonia in the past. On review of systems patient is alert and oriented 3 in no apparent distress there is no fever or chills no headache or dizziness he is complaining of shortness of breath with any activity he has occasional cough with clear sputum production he has some episodes of pain and pressure in the left side of the chest that last for few seconds at that time otherwise he denies any complaints no nausea or vomiting no abdominal pain no diarrhea no blood in the stools no burning with urination no frequency or urgency and no hematuria. on 02/13/2020 patient was seen and examined on the medical floor he is alert and oriented 3 in no apparent distress he is still complaining of shortness of breath with any activity otherwise he denies any complaints there is no fever or chills no headache or dizziness no chest pain no palpitation no cough no nausea or vomiting no abdominal pain no diarrhea no blood in the stools oh burning with urination no frequency or urgency no hematuria patient underwent AVIVA today awaiting further recommendation from cardiology, BUN and creatinine are elevated Will consult nephrology. On 02/14/2020 patient is alert and oriented 3 status post cardiac catheterization today. Per nursing staff heart catheterization revealed multivessel disease along with severe mitral and tricuspid regurg with severe pulmonary hypertension. Cardiothoracic surgery has been consulted for evaluation. Creatinine is trending down to 1.82 and bun 45. Nephrology services are following. Patient remains on IV Lasix. At this time patient denies chest pain or shortness of breath. Patient denies nausea vomiting or diarrhea. Patient denies any urinary burning or frequency On 02/15/2020 patient was seen and examined on the telemetry floor he is alert and oriented 3 in no apparent distress he is complaining of shortness of breath with any activity otherwise he denies any complaints there is no fever or chills no headache or dizziness no chest pain no cough no palpitation no nausea or vomiting no abdominal pain no diarrhea no blood in the stools, no burning with urination no frequency or urgency and no hematuria, at this time patient is being evaluated by cardiovascular surgery, awaiting decision regard to intervention. Medication reviewed will follow closely. Patient is having a nosebleed Will hold Coumadin today and recheck INR in a.m.. On 02/16/2020 patient alert and oriented 3. Did discuss case with cardiothoracic team patient is still getting worked up for possible cardiothoracic surgery. Cardiology pulmonary and nephrology services are currently following. INR 1.7 Coumadin resumed per cardiology. Creatinine remained stable at 1.52 and bun 40. Per cardiothoracic team patient will continue to be medically managed throughout the weekend. Patient remains short of breath. Patient denies chest pain. Patient denies nausea vomiting or diarrhea. Patient denies any urinary burning or frequency On 02/17/2020 patient was seen and examined on the telemetry floor, he is alert and oriented 3 in no distress, he is still complaining of shortness of breath with any activity he is maintained on oxygen via nasal cannula at 6 L/m his oxygen saturation is 90% otherwise he denies any complaints there is no fever or chills no headache or dizziness, no chest pain no palpitation no cough no nausea or vomiting no abdominal pain no diarrhea no blood in the stools no burning with urination no frequency or urgency and no hematuria. On 02/18/2020 patient was seen and examined on the medical floor he is alert and oriented 3 in no apparent distress he is complaining of shortness of breath with any activity otherwise he denies any complaints there is no fever or chills no headache or dizziness no chest pain no cough no nausea or vomiting no abdominal pain no diarrhea no blood in the stools no burning with urination no frequency or urgency and no hematuria. Patient will have physical therapy possible discharge to home in the next 1-2 days he may need oxygen at home he would need to have pulmonary function test for surgical clearance. Cardiac surgery is scheduled on March 11, 2020 patient is scared of going home, usp placement was discussed with patient in details he will talk to his and let me know about his decision. On 02/19/2020 patient will be discharged home and follow-up outpatient for pulmonary function tests. Tentative coronary artery bypass Surgery scheduled for March 11. Patient discharged home on Bumex twice a day. Patient will follow up with consulting providers for further management Patient Condition at Discharge: Stable Plan - Discharge Summary Discharge Rx Participant: No New Discharge Prescriptions: New Bumetanide [BUMEX] 1 mg PO BID@0900,1600 tab Warfarin [Coumadin] 2 mg PO DAILY@1800 tab Isosorbide Mononitrate ER [Imdur] 60 mg PO DAILY tab.er.24h Nitroglycerin Sl Tabs [Nitrostat] 0.4 mg SUBLINGUAL Q5M PRN tab PRN Reason: Chest Pain ALPRAZolam [Xanax] 0.25 mg PO Q6HR PRN tab PRN Reason: Mild Anxiety Continue Atorvastatin [Lipitor] 40 mg PO HS Ascorbic Acid [Vitamin C] 1,000 mg PO DAILY allopurinoL [Zyloprim] 300 mg PO DAILY Multivitamins, Thera [Multivitamin (formulary)] 1 tab PO DAILY amLODIPine BESYLATE [Norvasc] 10 mg PO HS #30 tablet Loratadine [Claritin] 10 mg PO DAILY Aspirin EC [Ecotrin Low Dose] 81 mg PO HS Potassium Chloride ER [K-Dur 20] 20 meq PO BID Metoprolol Tartrate [Lopressor] 25 mg PO DAILY Ferrous Sulfate [Iron (65 MG Elemental)] 325 mg PO DAILY Folate 40 mg PO DAILY Discontinued Warfarin [Coumadin] 1 mg PO HS Torsemide [Demadex] 20 mg PO BID tab Discharge Medication List Ascorbic Acid [Vitamin C] 1,000 mg PO DAILY 07/21/14 [History] Atorvastatin [Lipitor] 40 mg PO HS 07/21/14 [History] allopurinoL [Zyloprim] 300 mg PO DAILY 07/21/14 [History] Multivitamins, Thera [Multivitamin (formulary)] 1 tab PO DAILY 05/04/16 [History] amLODIPine BESYLATE [Norvasc] 10 mg PO HS #30 tablet 05/06/16 [Rx] Aspirin EC [Ecotrin Low Dose] 81 mg PO HS 08/22/18 [History] Loratadine [Claritin] 10 mg PO DAILY 08/22/18 [History] Potassium Chloride ER [K-Dur 20] 20 meq PO BID 09/22/18 [History] Metoprolol Tartrate [Lopressor] 25 mg PO DAILY 04/20/19 [History] Ferrous Sulfate [Iron (65 MG Elemental)] 325 mg PO DAILY 01/18/20 [History] Folate 40 mg PO DAILY 01/18/20 [History] ALPRAZolam [Xanax] 0.25 mg PO Q6HR PRN tab 02/19/20 [Rx] Bumetanide [BUMEX] 1 mg PO BID@0900,1600 tab 02/19/20 [Rx] Isosorbide Mononitrate ER [Imdur] 60 mg PO DAILY tab.er.24h 02/19/20 [Rx] Nitroglycerin Sl Tabs [Nitrostat] 0.4 mg SUBLINGUAL Q5M PRN tab 02/19/20 [Rx] Warfarin [Coumadin] 2 mg PO DAILY@1800 tab 02/19/20 [Rx] Follow up Appointment(s)/Referral(s): Peri Mcdonnell MD [STAFF PHYSICIAN] - 1 Week Christin Brink MD [Primary Care Provider] - 1-2 days [facility],Equipment [NON-STAFF] - ([facility] will deliver a portable oxygen tank to the bedside before discharge. Once home, please call [phone] to arrange for delivery [facility], [NON-STAFF] - 1-2 Days Danis Naylor MD [STAFF PHYSICIAN] - 1 Week Emilie Mejia MD [STAFF PHYSICIAN] - 1 Week Patient Instructions/Handouts: *Surgery [facility] - After Heart Catheterization - Medical Office Professional Instructor Instructions, Coronary Artery Disease (DC), CABG (Coronary Artery Bypass Graft) (DC) Activity/Diet/Wound Care/Special Instructions: Full pulmonary function test scheduled at [facility] on WednesdayFebruary 19 @ 4:15 pm, please be at the hospital at 3:45 pm to register. Bring prescription which was left in patient chart. Surgery tentatively scheduled for March 11, [address] Naylor pending pulmonary clearance, dental clearance has been obtained Patient requires home oxygen to manage his COPD and CHF at home. Patient's O2 sat is 86% on room air at rest today. Discharge Disposition: HOME WITH HOME HEALTH SERVICES
--- NOTE | 2020-03-11 15:04 | CONS ---
CONSULTATION DATE OF CONSULTATION: 02/14/20 Patient was examined and I agree with the above findings from my nurse practitioner. MMODL / IJN: [id number] / Job#: [id number]
== END 2020-02-19 17:34 | disposition home health service (06) | DRG 286 ==
LOC: EC 08:56 → 3SCARD 11:40
PROVIDERS: ADMIT Internal Medicine; ATTEND Internal Medicine
PROC: B246ZZ4 Ultrasonography of Right and Left Heart, Transesophageal (ICD-10-PCS; 2020-02-13)
PROC: 4A023N7 Measurement of Cardiac Sampling and Pressure, Left Heart, Percutaneous Approach (ICD-10-PCS; principal; 2020-02-14 12:00)
PROC: B2111ZZ Fluoroscopy of Multiple Coronary Arteries using Low Osmolar Contrast (ICD-10-PCS; principal; 2020-02-14 12:00)
DX: I13.0 Hypertensive heart and chronic kidney disease with heart failure and stage 1 through stage 4 chronic kidney disease, or unspecified chronic kidney disease (principal); I50.33 Acute on chronic diastolic (congestive) heart failure; N17.0 Acute kidney failure with tubular necrosis; I48.19 Other persistent atrial fibrillation; J98.11 Atelectasis; E78.00 Pure hypercholesterolemia, unspecified; E78.5 Hyperlipidemia, unspecified; E87.6 Hypokalemia; G47.33 Obstructive sleep apnea (adult) (pediatric); Z99.89 Dependence on other enabling machines and devices; I25.10 Atherosclerotic heart disease of native coronary artery without angina pectoris; I25.2 Old myocardial infarction; I27.20 Pulmonary hypertension, unspecified; I08.3 Combined rheumatic disorders of mitral, aortic and tricuspid valves; I42.9 Cardiomyopathy, unspecified; J44.9 Chronic obstructive pulmonary disease, unspecified; M19.90 Unspecified osteoarthritis, unspecified site; Z20.828 Contact with and (suspected) exposure to other viral communicable diseases; D63.1 Anemia in chronic kidney disease; N40.0 Benign prostatic hyperplasia without lower urinary tract symptoms; R04.0 Epistaxis; T50.2X5A Adverse effect of carbonic-anhydrase inhibitors, benzothiadiazides and other diuretics, initial encounter; Z79.01 Long term (current) use of anticoagulants; Z79.82 Long term (current) use of aspirin; Z79.899 Other long term (current) drug therapy; N18.3 Chronic kidney disease, stage 3 (moderate); Z80.3 Family history of malignant neoplasm of breast; Z82.49 Family history of ischemic heart disease and other diseases of the circulatory system; Z87.01 Personal history of pneumonia (recurrent); Z87.74 Personal history of (corrected) congenital malformations of heart and circulatory system; Z87.891 Personal history of nicotine dependence; Z95.0 Presence of cardiac pacemaker; Z95.1 Presence of aortocoronary bypass graft; M10.9 Gout, unspecified; Z86.010 Personal history of colon polyps; F40.240 Claustrophobia
CPT/HCPCS: 36415; 71046; 80053; 80061; 80074; 81003; 82550; 83036; 83605; 83735; 83880; 84443; 84484; 85025; 85027; 85610; 85730; 87070; 93005; 93308; 93312; 93320; 93325; 93458; 93880; 93970; 94150; 99285

== ENCOUNTER → 2020-02-20 | Outpatient (CLI) | payer MEDICARE, BC | END | disposition home or self-care (01) | LOC: CPPFTMAIN 15:41 | PROVIDERS: ATTEND Internal Medicine | DX: R94.2 Abnormal results of pulmonary function studies (principal) | CPT/HCPCS: 94060; 94726; 94729 ==

== ENCOUNTER 2020-03-06 11:21 | Day surgery (SDC) | payer MEDICARE, BC ==
[~2020-03-06 11:21] MED LIST: SODIUM CHLORIDE 0.9% 500 ML 500 ML in EMPTY BAG 1 BAG IV PRN
[2020-03-06 11:38] VITALS: BP 136/77; PULSE 74; RESP 16; TEMP 97.7
[2020-03-06 12:19] LABS: INR 2.4 (<1.2); Prothrombin Time 22.9 sec (9.0-12.0)
== END 2020-03-06 13:13 ==
LOC: PROCWHC3 11:21
PROVIDERS: ATTEND Internal Medicine
DX: J90 Pleural effusion, not elsewhere classified (principal); J44.9 Chronic obstructive pulmonary disease, unspecified; I50.32 Chronic diastolic (congestive) heart failure; N18.9 Chronic kidney disease, unspecified; I25.10 Atherosclerotic heart disease of native coronary artery without angina pectoris; I48.20 Chronic atrial fibrillation, unspecified; M10.9 Gout, unspecified; E78.5 Hyperlipidemia, unspecified; G47.33 Obstructive sleep apnea (adult) (pediatric); I27.20 Pulmonary hypertension, unspecified; Z99.89 Dependence on other enabling machines and devices; Z82.49 Family history of ischemic heart disease and other diseases of the circulatory system; Z87.891 Personal history of nicotine dependence; Z79.82 Long term (current) use of aspirin; Z79.01 Long term (current) use of anticoagulants; Z79.899 Other long term (current) drug therapy
CPT/HCPCS: 36415; 85610

== ENCOUNTER → 2020-03-06 | Outpatient (CLI) | payer MEDICARE, BC ==
--- NOTE | 2020-03-06 11:14 | US ---
EXAMINATION TYPE: US chest DATE OF EXAM: 03/06/2020 COMPARISON: NONE CLINICAL HISTORY: J90 pleural effusion. on O2, effusion, thoracentesis with Kecia after U/S TECHNIQUE: Targeted ultrasound of the posterior lower right EXAM MEASUREMENTS: Right Pleural Effusion pocket size: 11.4 cm Right skin surface to fluid distance: 4.2 cm Right side marked for possible thoracentesis outside the dept. tissue seen within pocket superiorly , only open pocket with no tissue was medial and inferior Left side marked for possible thoracentesis outside the dept. Pulmonologists are able to review the images in the patient?s EMR. IMPRESSIONS: Right pleural effusion
== END | disposition home or self-care (01) ==
LOC: RADUSWWP 10:31
PROVIDERS: ATTEND Internal Medicine
DX: J90 Pleural effusion, not elsewhere classified (principal)
CPT/HCPCS: 76604

== ENCOUNTER 2020-03-08 07:58 | Day surgery (SDC) | payer MEDICARE, BC ==
[2020-03-08 08:41] LABS: Mean Platelet Volume 8.3; Platelet Count 151 k/uL (150-450)
[2020-03-08 08:46] LABS: INR 1.9 (<1.2); Prothrombin Time 18.1 sec (9.0-12.0)
[2020-03-08 08:48] VITALS: RESP 16; TEMP 97.5
[2020-03-08 10:09] VITALS: PULSE 67
--- NOTE | 2020-03-08 10:22 | XR ---
EXAMINATION TYPE: XR chest 1V portable DATE OF EXAM: 03/08/2020 COMPARISON: 02/18/2020 INDICATION: Right-sided thoracentesis TECHNIQUE: Single frontal view of the chest is obtained. FINDINGS: The heart size is enlarged. The pulmonary vasculature is normal. Minimal left pleural effusion is present. Minimal right pleural effusion may be present. No pneumotho rax is evident. Pacemaker overlies left chest IMPRESSION: 1. No pneumothorax postthoracentesis. 2. Minimal bilateral pleural effusions present. 3. Cardiomegaly
--- NOTE | 2020-03-08 10:27 | US ---
EXAMINATION TYPE: US thoracentesis DATE OF EXAM: 03/08/2020 COMPARISON: NONE HISTORY: Pleural effusion. FINDINGS: Maximal barrier technique was utilized. The skin overlying a suitable pocket of fluid was localized and the overlying skin prepped and draped. Lidocaine was used for local anesthesia. Ultras ound was used with sterile technique. A 5 Icelandic catheter over guide needle was advanced into the pl eural fluid collection using ultrasound guidance and the catheter advanced, needle removed. Approxim ately 1.7 liter(s) of serous fluid was removed. Catheter was withdrawn and hemostasis achieved. The re is no immediate complication. The patient discharged in stable condition without complication. IMPRESSION: STATUS POST ULTRASOUND GUIDED THORACENTESIS, POST PROCEDURE CHEST X-RAY PENDING. THIS OH OCEDURE WAS PERFORMED BY THE UNDERSIGNED.
[2020-03-08 10:28] VITALS: BP 155/71
[2020-03-08 15:07] LABS: Appearance,BF Clear; Color,BF Yellow; Nucleated Cells, Body Fluid 348 /uL; RBC, Body Fluid 68 /uL
[2020-03-08 15:10] LABS: Mononuclear WBC,Body Fluid 89 %; Polynuclear WBC,Body Fluid 11 %; Total Cells Counted,Body Fluid 100
[2020-03-08 21:06] LABS: Glucose, BF Source Pleural Fluid; Glucose, Body Fluid 131 mg/dL; LDH, Body Fluid Source Pleural Fluid; Total Protein, Body Fluid 2100 mg/dL
== END 2020-03-08 10:45 | disposition home or self-care (01) ==
LOC: RADPROMAIN 07:58
PROVIDERS: ATTEND Internal Medicine
DX: J90 Pleural effusion, not elsewhere classified (principal)
CPT/HCPCS: 32555; 36415; 71045; 82945; 83615; 84157; 85049; 85610; 87070; 87075; 87116; 87205; 87206; 88108; 88305; 89050

== ENCOUNTER → 2020-04-15 | Outpatient (CLI) | payer MEDICARE, BC ==
[2020-04-15 22:05] LABS: African American GFR (CKD) 37.7 (60.0-200.0); Albumin 4.3 g/dL (3.80-4.90); Albumin/Globulin Ratio 1.79 (1.60-3.17); Anion Gap 12.3 mmol/L (4.00-12.00); BUN/Creat Ratio 33.68 Ratio (12.00-20.00); Calcium 9.3 mg/dL (8.7-10.3); Carbon Dioxide 23.7 mmol/L (21.6-31.8); Globulin 2.4 g/dL (1.6-3.3); Magnesium 2.5 mg/dL (1.5-2.4); Non-African American GFR(CKD) 32.6 (60.0-200.0); Potassium 4.4 mmol/L (3.5-5.5); Total Bilirubin 0.6 mg/dL (0.3-1.2); Total Protein 6.7 g/dL (6.2-8.2)
== END | disposition home or self-care (01) ==
LOC: LABWHC1 12:02
PROVIDERS: ATTEND Internal Medicine
DX: N18.30 Chronic kidney disease, stage 3 unspecified (principal)
CPT/HCPCS: 36415; 80053; 83735

== ENCOUNTER → 2020-06-04 | Outpatient (CLI) | payer MEDICARE, BC ==
[2020-06-04 12:17] LABS: Appearance,Urine Clear (Clear); Bilirubin,Urine Negative (Negative); Blood,Urine Negative (Negative); Color,Urine Light Yellow; Glucose,Urine (UA) Negative (Negative); Ketones,Urine Negative (Negative); Leukocyte Esterase,Urine Negative (Negative); Nitrite,Urine Negative (Negative); PH, Urine 6.5 (5.0-8.0); Protein,Urine Negative (Negative); Specific Gravity,Urine 1.008 (1.001-1.035); Urobilinogen,Urine <2.0 mg/dL (<2.0)
[2020-06-04 19:44] LABS: HCT 31.5 % (39.6-50.0); HGB 10.2 g/dL (13.0-17.0); MCH 29.4 pg (27.0-32.0); MCHC 32.4 g/dL (32.0-37.0); MCV 90.8 fL (80.0-97.0); Mean Platelet Volume 11.7 fL (9.5-12.2); Platelet Count 165 X 10*3/uL (140-440); RBC 3.47 X 10*6/uL (4.40-5.60); RDW 16.1 % (11.5-14.5); WBC 5.99 X 10*3/uL (4.50-10.00)
[2020-06-05 00:35] LABS: Ferritin 67.8 ng/mL (22.0-322.0)
[2020-06-05 00:42] LABS: Albumin 4.5 g/dL (3.80-4.90); Albumin/Globulin Ratio 2.14 (1.60-3.17); Anion Gap 15.6 mmol/L (4.00-12.00); BUN/Creat Ratio 46.09 Ratio (12.00-20.00); Calcium 9.1 mg/dL (8.7-10.3); Carbon Dioxide 22.4 mmol/L (21.6-31.8); Globulin 2.1 g/dL (1.6-3.3); Magnesium 2.5 mg/dL (1.5-2.4); Non-African American GFR(CKD) 25.9 (60.0-200.0); Phosphorus 5.2 mg/dL (2.4-5.1); Potassium 4.2 mmol/L (3.5-5.5); Total Bilirubin 0.6 mg/dL (0.2-1.2); Total Protein 6.6 g/dL (6.2-8.2); Uric Acid 3.6 mg/dL (3.7-8.7)
[2020-06-05 01:22] LABS: % Iron Saturation 13.24 (15.00-50.00)
== END | disposition home or self-care (01) ==
LOC: LABWHC1 10:35
PROVIDERS: ATTEND Internal Medicine
DX: N39.0 Urinary tract infection, site not specified (principal); N18.30 Chronic kidney disease, stage 3 unspecified; D63.1 Anemia in chronic kidney disease; N25.81 Secondary hyperparathyroidism of renal origin; E55.9 Vitamin D deficiency, unspecified; M10.9 Gout, unspecified
CPT/HCPCS: 36415; 80053; 81003; 82306; 82728; 83540; 83550; 83735; 83970; 84100; 84550; 85027

== ENCOUNTER → 2020-07-29 | Outpatient (CLI) | payer MEDICARE, BC ==
[2020-07-29 10:26] LABS: Appearance,Urine Clear (Clear); Bilirubin,Urine Negative (Negative); Blood,Urine Negative (Negative); Color,Urine Light Yellow; Glucose,Urine (UA) Negative (Negative); Ketones,Urine Negative (Negative); Leukocyte Esterase,Urine Negative (Negative); Nitrite,Urine Negative (Negative); Protein,Urine Negative (Negative); Specific Gravity,Urine 1.007 (1.001-1.035); Urobilinogen,Urine <2.0 mg/dL (<2.0)
[2020-07-29 16:28] LABS: Basophils # (A) 0.04 X 10*3/uL (0.00-0.10); Basophils % (A) 0.5 %; Eosinophils % (A) 2.6 %; HCT 35.7 % (39.6-50.0); HGB 11.7 g/dL (13.0-17.0); Lymphocytes # (A) 0.57 X 10*3/uL (0.90-5.00); Lymphocytes % (A) 7.5 %; MCH 31.5 pg (27.0-32.0); MCHC 32.8 g/dL (32.0-37.0); MCV 96.2 fL (80.0-97.0); Mean Platelet Volume 11.1 fL (9.5-12.2); Monocytes # (A) 0.74 X 10*3/uL (0.20-1.00); Monocytes % (A) 9.7 %; Neutrophils # (A) 6.06 X 10*3/uL (1.80-7.70); Neutrophils % (A) 79.2 %; Platelet Count 140 X 10*3/uL (140-440); RBC 3.71 X 10*6/uL (4.40-5.60); RDW 17.7 % (11.5-14.5); WBC 7.65 X 10*3/uL (4.50-10.00)
[2020-07-29 17:37] LABS: Ferritin 285.9 ng/mL (22.0-322.0)
[2020-07-29 17:38] LABS: % Iron Saturation 28.08 (15.00-50.00); African American GFR (CKD) 35.5 (60.0-200.0); Albumin 4.2 g/dL (3.80-4.90); Albumin/Globulin Ratio 1.91 (1.60-3.17); Anion Gap 9.1 mmol/L (4.00-12.00); BUN/Creat Ratio 35.5 Ratio (12.00-20.00); Calcium 9.3 mg/dL (8.7-10.3); Carbon Dioxide 25.9 mmol/L (21.6-31.8); Globulin 2.2 g/dL (1.6-3.3); Magnesium 2.5 mg/dL (1.5-2.4); Non-African American GFR(CKD) 30.6 (60.0-200.0); Phosphorus 4.2 mg/dL (2.4-5.1); Potassium 4.2 mmol/L (3.5-5.5); Total Bilirubin 0.6 mg/dL (0.2-1.2); Total Protein 6.4 g/dL (6.2-8.2); Uric Acid 6.3 mg/dL (3.7-8.7)
== END | disposition home or self-care (01) ==
LOC: LABWHC1 09:31
PROVIDERS: ATTEND Nurse Practitioner Family
DX: M10.9 Gout, unspecified (principal); N18.32 Chronic kidney disease, stage 3b; N25.81 Secondary hyperparathyroidism of renal origin; N39.0 Urinary tract infection, site not specified; D64.9 Anemia, unspecified; E55.9 Vitamin D deficiency, unspecified
CPT/HCPCS: 36415; 80053; 81003; 82306; 82728; 83540; 83550; 83735; 83970; 84100; 84550; 85025

== ENCOUNTER → 2020-11-20 | Outpatient (CLI) | payer MEDICARE, BC ==
[2020-11-20 14:54] LABS: Appearance,Urine Clear (Clear); Bilirubin,Urine Negative (Negative); Blood,Urine Negative (Negative); Color,Urine Light Yellow; Glucose,Urine (UA) Negative (Negative); Ketones,Urine Negative (Negative); Leukocyte Esterase,Urine Negative (Negative); Nitrite,Urine Negative (Negative); Protein,Urine Negative (Negative); Specific Gravity,Urine 1.009 (1.001-1.035); Urobilinogen,Urine <2.0 mg/dL (<2.0)
[2020-11-20 23:48] LABS: HGB 11.8 g/dL (13.0-17.0); MCH 33.3 pg (27.0-32.0); MCHC 33.7 g/dL (32.0-37.0); MCV 98.9 fL (80.0-97.0); Mean Platelet Volume 10.5 fL (9.5-12.2); Platelet Count 140 X 10*3/uL (140-440); RBC 3.54 X 10*6/uL (4.40-5.60); RDW 14.6 % (11.5-14.5); WBC 6.56 X 10*3/uL (4.50-10.00)
[2020-11-21 17:51] LABS: % Iron Saturation 20.27 (15.00-50.00); African American GFR (CKD) 40.3 (60.0-200.0); Albumin 4.5 g/dL (3.80-4.90); Albumin/Globulin Ratio 1.8 (1.60-3.17); Anion Gap 18.3 mmol/L (4.00-12.00); BUN/Creat Ratio 31.67 Ratio (12.00-20.00); Calcium 9.4 mg/dL (8.7-10.3); Carbon Dioxide 22.7 mmol/L (21.6-31.8); Globulin 2.5 g/dL (1.6-3.3); Magnesium 2.3 mg/dL (1.5-2.4); Non-African American GFR(CKD) 34.8 (60.0-200.0); Phosphorus 3.9 mg/dL (2.4-5.1); Potassium 4.2 mmol/L (3.5-5.5); Total Bilirubin 0.8 mg/dL (0.3-1.2); Uric Acid 6.1 mg/dL (3.7-8.7)
[2020-11-21 17:59] LABS: Ferritin 157.1 ng/mL (22.0-322.0)
== END | disposition home or self-care (01) ==
LOC: LABWHC1 13:26
PROVIDERS: ATTEND Nurse Practitioner Family
DX: N39.0 Urinary tract infection, site not specified (principal); N18.32 Chronic kidney disease, stage 3b; N25.81 Secondary hyperparathyroidism of renal origin; E55.9 Vitamin D deficiency, unspecified; D64.9 Anemia, unspecified; M10.9 Gout, unspecified
CPT/HCPCS: 36415; 80053; 81003; 82306; 82728; 83540; 83550; 83735; 83970; 84100; 84550; 85027

== ENCOUNTER → 2021-01-22 | Outpatient (CLI) | payer MEDICARE, BC ==
[2021-01-22 16:15] LABS: Basophils # (A) 0.03 X 10*3/uL (0.00-0.10); Basophils % (A) 0.4 %; Eosinophils # (A) 0.38 X 10*3/uL (0.04-0.35); Eosinophils % (A) 5.2 %; HCT 38.6 % (39.6-50.0); HGB 12.6 g/dL (13.0-17.0); Lymphocytes # (A) 0.59 X 10*3/uL (0.90-5.00); Lymphocytes % (A) 8.1 %; MCH 32.1 pg (27.0-32.0); MCHC 32.6 g/dL (32.0-37.0); MCV 98.2 fL (80.0-97.0); Mean Platelet Volume 11.1 fL (9.5-12.2); Monocytes # (A) 0.71 X 10*3/uL (0.20-1.00); Monocytes % (A) 9.8 %; Neutrophils # (A) 5.55 X 10*3/uL (1.80-7.70); Neutrophils % (A) 76.2 %; Platelet Count 157 X 10*3/uL (140-440); RBC 3.93 X 10*6/uL (4.40-5.60); WBC 7.28 X 10*3/uL (4.50-10.00)
[2021-01-22 16:57] LABS: INR 1.79 (0.90-1.11); Prothrombin Time 18.8 sec (9.9-11.9)
[2021-01-22 21:03] LABS: African American GFR (CKD) 40.3 (60.0-200.0); Albumin 4.7 g/dL (3.80-4.90); Albumin/Globulin Ratio 2.14 (1.60-3.17); Anion Gap 9.6 mmol/L (4.00-12.00); BUN/Creat Ratio 28.33 Ratio (12.00-20.00); Calcium 9.1 mg/dL (8.7-10.3); Carbon Dioxide 26.4 mmol/L (21.6-31.8); Globulin 2.2 g/dL (1.6-3.3); Magnesium 2.5 mg/dL (1.5-2.4); Non-African American GFR(CKD) 34.8 (60.0-200.0); Potassium 4.6 mmol/L (3.5-5.5); Total Bilirubin 0.9 mg/dL (0.3-1.2); Total Protein 6.9 g/dL (6.2-8.2)
== END | disposition home or self-care (01) ==
LOC: LABWHC1 10:23
PROVIDERS: ATTEND Internal Medicine Interventional Cardiology
DX: I36.1 Nonrheumatic tricuspid (valve) insufficiency (principal); I48.20 Chronic atrial fibrillation, unspecified; I52 Other heart disorders in diseases classified elsewhere
CPT/HCPCS: 36415; 80053; 83735; 83880; 85025; 85610

== ENCOUNTER → 2021-02-20 | Outpatient (CLI) | payer MEDICARE, BC ==
[2021-02-20 12:08] LABS: Appearance,Urine Clear (Clear); Bilirubin,Urine Negative (Negative); Blood,Urine Negative (Negative); Color,Urine Light Yellow; Glucose,Urine (UA) Negative (Negative); Ketones,Urine Negative (Negative); Leukocyte Esterase,Urine Negative (Negative); Nitrite,Urine Negative (Negative); Protein,Urine Negative (Negative); Urobilinogen,Urine <2.0 mg/dL (<2.0)
[2021-02-20 16:27] LABS: HCT 39.4 % (39.6-50.0); MCH 32.2 pg (27.0-32.0); MCV 97.5 fL (80.0-97.0); Mean Platelet Volume 10.7 fL (9.5-12.2); Platelet Count 178 X 10*3/uL (140-440); RBC 4.04 X 10*6/uL (4.40-5.60); RDW 13.8 % (11.5-14.5); WBC 7.86 X 10*3/uL (4.50-10.00)
[2021-02-20 19:27] LABS: % Iron Saturation 23.86 (15.00-50.00); Magnesium 2.6 mg/dL (1.5-2.4)
[2021-02-20 20:00] LABS: African American GFR (CKD) 27.1 (60.0-200.0); Albumin 4.8 g/dL (3.8-4.9); Albumin/Globulin Ratio 1.85 (1.60-3.17); Anion Gap 18.4 mmol/L (4.00-12.00); BUN/Creat Ratio 40.4 Ratio (12.00-20.00); Calcium 9.4 mg/dL (8.7-10.3); Carbon Dioxide 23.6 mmol/L (21.6-31.8); Globulin 2.6 g/dL (1.6-3.3); Non-African American GFR(CKD) 23.4 (60.0-200.0); Potassium 3.9 mmol/L (3.5-5.5); Total Bilirubin 0.5 mg/dL (0.30-1.20); Total Protein 7.4 g/dL (6.2-8.2)
== END | disposition home or self-care (01) ==
LOC: LABWHC1 09:56
PROVIDERS: ATTEND Internal Medicine
DX: N18.32 Chronic kidney disease, stage 3b (principal); D64.9 Anemia, unspecified; N39.0 Urinary tract infection, site not specified; N25.81 Secondary hyperparathyroidism of renal origin; E55.9 Vitamin D deficiency, unspecified; M10.9 Gout, unspecified
CPT/HCPCS: 36415; 80053; 81003; 82306; 82728; 83540; 83550; 83735; 83970; 84100; 84550; 85027

== ENCOUNTER 2021-03-31 11:15 | Day surgery (SDC) | payer MEDICARE, BC ==
[2021-03-31 11:41] VITALS: RESP 16; TEMP 97.6
[2021-03-31 12:41] VITALS: BP 106/56; PULSE 64
[2021-03-31 13:02] LABS: INR 1.4 (<1.2); Prothrombin Time 14.6 sec (9.0-12.0)
--- NOTE | 2021-03-31 13:04 | XR ---
EXAMINATION TYPE: XR chest 1V portable DATE OF EXAM: 03/31/2021 HISTORY: Shortness of breath. COMPARISON: 03/08/2020 TECHNIQUE: Single view of the chest is submitted. FINDINGS: Demonstrated are scattered senescent parenchymal change. Right basilar opacity which may reflect underlying effusion, atelectasis and/or infiltrate. The heart is stable. Hilar and mediastinal structures are within normal limits. Degenerative changes are seen of the dorsal spine. IMPRESSION: 1. Right basilar opacity which may reflect underlying effusion, atelectasis and/or infiltrate.
--- NOTE | 2021-03-31 13:36 | PCN ---
PROCEDURE NOTE OPERATIVE REPORT: Right-sided thoracentesis. PREOP DIAGNOSIS: Right side pleural effusion. POSTOPERATIVE DIAGNOSIS: Right side pleural effusion. ANESTHESIA USED: 2 mL of 1% lidocaine. PROCEDURE: The patient was placed in the sitting upright position, the area below the right scapula was prepared in a sterile fashion and drapes were applied. That specific area was earlier localized by ultrasound, and ultrasound correlated to the tip of the scapula and eighth intercostal space. The area was locally anesthetized with lidocaine. Then, a 26-gauge needle was inserted at the same site, advanced into the pleural space until the fluid was localized with the needle. Then a small tiny incision was made, and a standard thoracentesis catheter and needle were used, advanced at the same site into the pleural space, fluid was obtained. However, the fluid was running quite slow and interrupted with respirations, hence I changed the catheter and needle again and used another catheter and needle. At the same site, they were both advanced into the pleural space until the fluid was obtained. Then, the catheter was advanced out of the needle and the needle was pulled out of the pleural space. Freely flowing fluid was removed, roughly 650 mL of thick slightly serosanguineous fluid was removed from the right pleural space, and it was sent for different diagnostic studies. The procedure was well tolerated. No immediate evidence of any complications, chest x- ray was ordered postoperatively. Again, the total amount of fluid drained was 650 mL. RICHARD / WHITN: [id number] /
[2021-03-31 18:14] LABS: Appearance,BF Hazy; Nucleated Cells, Body Fluid 1000 /uL; RBC, Body Fluid 1000 /uL
[2021-03-31 18:58] LABS: Mononuclear WBC,Body Fluid 66 %; Polynuclear WBC,Body Fluid 6 %; Total Cells Counted,Body Fluid 100
[2021-04-01 01:58] LABS: Glucose, BF Source Thoracentesis Fluid; Glucose, Body Fluid 104 mg/dL; LDH, Body Fluid Source Thoracentesis Fluid; T. Protein, Body Fluid Source Thoracentesis Fluid; Total Protein, Body Fluid 4010 mg/dL
== END 2021-06-11 15:36 | disposition home or self-care (01) ==
LOC: PROCWHC3 11:15
PROVIDERS: ATTEND Internal Medicine
DX: J90 Pleural effusion, not elsewhere classified (principal); E78.5 Hyperlipidemia, unspecified; M10.9 Gout, unspecified; G47.33 Obstructive sleep apnea (adult) (pediatric); I25.2 Old myocardial infarction; I25.10 Atherosclerotic heart disease of native coronary artery without angina pectoris; I27.20 Pulmonary hypertension, unspecified; I48.20 Chronic atrial fibrillation, unspecified; I50.32 Chronic diastolic (congestive) heart failure; J44.9 Chronic obstructive pulmonary disease, unspecified; N18.9 Chronic kidney disease, unspecified; R09.02 Hypoxemia; Z95.0 Presence of cardiac pacemaker; Z95.5 Presence of coronary angioplasty implant and graft; Z98.890 Other specified postprocedural states; Z87.891 Personal history of nicotine dependence; Z82.49 Family history of ischemic heart disease and other diseases of the circulatory system; Z79.01 Long term (current) use of anticoagulants; Z79.02 Long term (current) use of antithrombotics/antiplatelets; Z79.899 Other long term (current) drug therapy
CPT/HCPCS: 32554; 36415; 71045; 82945; 83615; 84157; 85610; 87070; 87205; 88108; 88305; 89050

== ENCOUNTER → 2021-03-31 | Outpatient (CLI) | payer MEDICARE, BC ==
--- NOTE | 2021-03-31 10:41 | US ---
EXAMINATION TYPE: US chest DATE OF EXAM: 03/31/2021 COMPARISON: NONE CLINICAL HISTORY: J90 PLEURAL EFFUSION. SOB, pleural effusion TECHNIQUE: Targeted ultrasound of the posterior lower bilateral hemithoraces EXAM MEASUREMENTS: Right Pleural Effusion pocket size: 9.3 cm Right skin surface to fluid distance: 3.4 cm Left Pleural Effusion pocket size: no significant fluid seen Right side marked for possible thoracentesis outside the dept. Left side NOT marked for possible thoracentesis outside the dept. Pulmonologists are able to review the images in the patient?s EMR. IMPRESSIONS: As above
--- NOTE | 2021-03-31 13:36 | PCN ---
PROCEDURE NOTE OPERATIVE REPORT: Right-sided thoracentesis. PREOP DIAGNOSIS: Right side pleural effusion. POSTOPERATIVE DIAGNOSIS: Right side pleural effusion. ANESTHESIA USED: 2 mL of 1% lidocaine. PROCEDURE: The patient was placed in the sitting upright position, the area below the right scapula was prepared in a sterile fashion and drapes were applied. That specific area was earlier localized by ultrasound, and ultrasound correlated to the tip of the scapula and eighth intercostal space. The area was locally anesthetized with lidocaine. Then, a 26-gauge needle was inserted at the same site, advanced into the pleural space until the fluid was localized with the needle. Then a small tiny incision was made, and a standard thoracentesis catheter and needle were used, advanced at the same site into the pleural space, fluid was obtained. However, the fluid was running quite slow and interrupted with respirations, hence I changed the catheter and needle again and used another catheter and needle. At the same site, they were both advanced into the pleural space until the fluid was obtained. Then, the catheter was advanced out of the needle and the needle was pulled out of the pleural space. Freely flowing fluid was removed, roughly 650 mL of thick slightly serosanguineous fluid was removed from the right pleural space, and it was sent for different diagnostic studies. The procedure was well tolerated. No immediate evidence of any complications, chest x- ray was ordered postoperatively. Again, the total amount of fluid drained was 650 mL. RICHARD / WHITN: [id number] /
== END | disposition home or self-care (01) ==
LOC: RADUSWWP 10:02
PROVIDERS: ATTEND Internal Medicine
DX: J90 Pleural effusion, not elsewhere classified (principal)
CPT/HCPCS: 76604

== ENCOUNTER 2021-06-11 11:04 | Day surgery (SDC) | payer MEDICARE, BC ==
[2021-06-11 11:18] VITALS: RESP 18
[2021-06-11 11:27] VITALS: BP 130/75; PULSE 79; TEMP 97.7
[2021-06-11 11:40] LABS: INR 1.4 (<1.2); Prothrombin Time 14.4 sec (9.0-12.0)
--- NOTE | 2021-06-11 12:48 | XR ---
EXAMINATION TYPE: XR chest 1V portable DATE OF EXAM: 06/11/2021 COMPARISON: Chest x-ray dated 06/06/2021 HISTORY: Status post thoracentesis on the right TECHNIQUE: Single frontal view of the chest is obtained. FINDINGS: There is some interval improved aeration at the right lung base, persistent abnormal densi ty is present obscuring the right hemidiaphragm, this blunting the right costophrenic angle, thickeni ng of the minor fissure. No evident pneumothorax or other significant interval change. IMPRESSION: No evident complication status post right thoracentesis.
== END 2021-06-11 15:35 ==
LOC: PROCWHC3 11:04
PROVIDERS: ATTEND Internal Medicine
DX: R91.8 Other nonspecific abnormal finding of lung field (principal)
CPT/HCPCS: 32554; 71045; 85610

== ENCOUNTER → 2021-06-11 | Outpatient (CLI) | payer MEDICARE, BC ==
--- NOTE | 2021-06-11 11:09 | US ---
EXAMINATION TYPE: US chest DATE OF EXAM: 06/11/2021 COMPARISON: NONE CLINICAL HISTORY: J90 PLEURAL EFFUSION. pleural effusion TECHNIQUE: Targeted ultrasound of the posterior lower Bilateral EXAM MEASUREMENTS: Right Pleural Effusion pocket size: 14.6 cm Right skin surface to fluid distance: 4.0 cm Left Pleural Effusion pocket size: 0 cm Right side marked for possible thoracentesis outside the dept. Pulmonologists are able to review the images in the patient?s EMR. IMPRESSIONS: As above
--- NOTE | 2021-06-11 13:00 | OP ---
OPERATIVE REPORT OPERATIVE REPORT: Right-sided thoracentesis. PREOPERATIVE DIAGNOSIS: Recurrent right-sided pleural effusion. POSTOPERATIVE DIAGNOSIS: Recurrent right-sided pleural effusion. ANESTHESIA USED: Two mL of 1% lidocaine. PROCEDURE DESCRIPTION: The patient was placed in a sitting-upright position. The area below the right scapula was prepared in a sterile fashion and drapes were applied. The exact site was localized earlier by ultrasound, and it correlated to the 8th intercostal space and tip of the scapula. Again, the area was locally anesthetized, and the pleural space was entered with a 26-gauge needle. Fluid was localized with the needle. Then a small tiny incision was made. A standard thoracentesis catheter and needle were used, advanced into the same site into the pleural space. Fluid was localized. Then the catheter was advanced over the needle and the needle was pulled out of the pleural space. Freely flowing fluid was removed. Roughly 1500 mL of slightly serosanguineous fluid was drained from the right pleural space. Fluid was not sent for any diagnostic studies, since it has been sent over and over many times previously. Chest x-ray was ordered; pending at the time of this dictation. Will continue to follow on an outpatient basis. Patient will be discharged home after his chest x-ray. MMODL / IJN: [id number] /
== END | disposition home or self-care (01) ==
LOC: RADUSWWP 10:45
PROVIDERS: ATTEND Internal Medicine
DX: J90 Pleural effusion, not elsewhere classified (principal)
CPT/HCPCS: 76604

== ENCOUNTER → 2021-06-13 | Outpatient (CLI) | payer MEDICARE, BC ==
[2021-06-13 18:17] LABS: HGB 13.2 g/dL (13.0-17.0); MCH 31.4 pg (27.0-32.0); MCHC 32.2 g/dL (32.0-37.0); MCV 97.4 fL (80.0-97.0); Mean Platelet Volume 10.7 fL (9.5-12.2); NRBC Per 100 WBC 0 /100 WBCS (0.0-0.0); Platelet Count 179 X 10*3/uL (140-440); RBC 4.21 X 10*6/uL (4.40-5.60); RDW 14.4 % (11.5-14.5); WBC 9.03 X 10*3/uL (4.50-10.00)
[2021-06-13 18:18] LABS: Blood Urea Nitrogen 42.4 mg/dL (9.0-27.0)
[2021-06-13 18:19] LABS: African American GFR (CKD) 42.9 (60.0-200.0); Anion Gap 15.4 mmol/L (10.00-18.00); Carbon Dioxide 22.6 mmol/L (20.0-27.5); Potassium 4.1 mmol/L (3.5-5.5)
== END | disposition home or self-care (01) ==
LOC: LABPAT 12:03
PROVIDERS: ATTEND Internal Medicine Interventional Cardiology
DX: Z01.812 Encounter for preprocedural laboratory examination (principal); I49.5 Sick sinus syndrome
CPT/HCPCS: 36415; 80051; 82565; 84520; 85027

== ENCOUNTER 2021-06-18 07:05 | Day surgery (SDC) | payer MEDICARE, BC ==
[2021-06-17 09:24] VITALS: BMI 25.0
[~2021-06-18 07:05] MED LIST changes: +ALPRAZolam 0.25 MG TAB PO PRN; +ALPRAZolam 0.5 MG TAB PO PRN; +ASPIRIN 325 MG TAB PO STA; +HEPARIN SODIUM,PORCINE 10,000 UNIT in SODIUM CHLORIDE 0.9% 1,000 ML IRRIGATION PRN; +HEPARIN SODIUM,PORCINE 2,500 UNIT in SODIUM CHLORIDE 0.9% 250 ML IRRIGATION PRN; +NITROGLYCERIN SL TABS 0.4 MG TAB SUBLINGUAL PRN; +SODIUM CHLORIDE 0.9% 1,000 ML in EMPTY BAG 1 BAG IV ONE; -SODIUM CHLORIDE 0.9% 500 ML 500 ML in EMPTY BAG 1 BAG IV PRN
[2021-06-18 08:00] VITALS: TEMP 98.1
[2021-06-18 08:17] LABS: INR 1.2 (<1.2); Prothrombin Time 12.3 sec (9.0-12.0)
[2021-06-18] MEDS ORDERED: fentaNYL (PF) 50 MCG/ML 2 ML AMP ONE (08:47)
[2021-06-18] MEDS ORDERED: IV FLUID CONTINUATION 1,000 ML IV ONE (08:50)
[2021-06-18] MEDS ORDERED: BENZOCAINE SPRAY 1 CAN MUCOUS MEM ONE (08:59)
[2021-06-18] MEDS ORDERED: fentaNYL (PF) 50 MCG/ML 2 ML AMP IV ONE (09:03)
[2021-06-18] MEDS ORDERED: MIDAZOLAM 2 MG/2 ML VIAL IV ONE (09:04)
[2021-06-18] MEDS ORDERED: LIDOCAINE 1% INJ 10MG/ML (20 ML MDV) ONE (10:42)
[2021-06-18] MEDS ORDERED: HEPARIN SODIUM 1,000 UN/ML (10ML VL) ONE (10:42)
[2021-06-18] MEDS ORDERED: LIDOCAINE 1% INJ 10MG/ML (20 ML MDV) SQ ONE (10:59)
[2021-06-18 11:27] LABS: O2 Sat Blood Gas 65.8 %
[2021-06-18 11:29] LABS: O2 Sat Blood Gas 91.4 %
[2021-06-18 11:31] LABS: O2 Sat Blood Gas 62.4 %
[2021-06-18 11:34] LABS: O2 Sat Blood Gas 64.6 %
[2021-06-18 11:36] LABS: O2 Sat Blood Gas 58.4 %
[2021-06-18 11:39] LABS: O2 Sat Blood Gas 64.5 %
[2021-06-18] MEDS ORDERED: IOPAMIDOL-370 100ML BTL INJ ONE (11:45)
[2021-06-18] MEDS ORDERED: SODIUM CHLORIDE 0.9% 1,000 ML IV SCH (12:00)
--- NOTE | 2021-06-18 13:43 | CC ---
CARDIAC CATHETERIZATION REPORT DATE OF SERVICE: 06/18/2021. PROCEDURE: Right and left heart catheterization and coronary angiography. PERFORMED BY: Dr. Tucker Diego. Moderate conscious sedation time was 41 minutes. Patient was administered Versed. Oxygen saturation, hemodynamics and EKG were monitored closely. CLINICAL INFORMATION: Mr. Von Mascorro is an 81-year-old gentleman with a history of chronic persistent atrial fibrillation with sick sinus syndrome and a single-chamber pacemaker, known ASD/PFO closure with percutaneous device, CAD with previous stenting of RCA, and also as recently as March 2020 underwent stenting of left main proximal LAD and proximal circumflex at [facility]. He also had a mitral valve clip placed at [facility]. Because of increasing symptoms of shortness of breath and chest tightness, I recommended coronary angiography and right and left heart catheterization along with a transesophageal echo. Patient was brought in for the procedure electively. PROCEDURE NOTE: Patient already had a transesophageal echo earlier today, was found to have severe mitral regurgitation and also moderate to severe tricuspid regurgitation with moderate pulmonary hypertension. Under strict aseptic precautions and local anesthesia, a 6-Samoan introducer was placed in the right femoral artery and an 8-Samoan introducer in the right femoral vein. Using a balloon-tipped catheter, I performed right heart catheterization. Saturations and hemodynamics were obtained. Subsequently I did coronary angiography with standard Jevon catheters. A pigtail catheter was used to check LV pressures. LV gram was not performed. The sheaths were taken out and manual compression used to secure hemostasis, and he was sent to the room in a stable condition. Findings were discussed with the patient and his . CARDIAC CATHETERIZATION FINDINGS: The right atrial pressure was 14 mmHg. Right ventricular pressure was 60/14. Pulmonary arterial pressure was 60/22 with a mean of 36. Pulmonary capillary wedge pressure was 23 mmHg. Femoral arterial saturation was 92%. Pulmonary artery saturation was 66%. There was no oxygen step-up on the saturation run. Thermodilution and Lilian cardiac output both came in at 5.28 L/minute. Left ventricular end-diastolic pressure was about 14 mmHg. CORONARY ANGIOGRAPHY FINDINGS: RIGHT CORONARY ARTERY: Large dominant vessel, heavily calcified that was stented in the mid portion. It is widely patent with no more than 30% to 35% narrowing and it bifurcates into a large PDA and a larger PLV, both of which have minor irregularities but no significant disease. The PDA has about a 50% lesion in the proximal portion. RCA therefore is superdominant. No significant disease. Previous stented area in the mid portion is widely patent. This RCA stent was performed in 2010. LEFT MAIN CORONARY ARTERY: Left main was actually stented along with LAD and circumflex proximally. Left main is now widely patent. Distally there is about a 20% narrowing noted and then it bifurcates into LAD and circumflex. LEFT ANTERIOR DESCENDING CORONARY ARTERY: This vessel is widely patent with remarkably good flow. It runs along the anterior wall, gives off a diagonal and septal branches. The diagonal branch has minor irregularities and the LAD after the diagonal has mild diffuse disease, runs all the way to the apex. No significant disease in the LAD system. LEFT POSTERIOR CIRCUMFLEX CORONARY ARTERY: Nondominant vessel has a proximal lesion of about 70%, then it gives off a single good obtuse marginal, then runs in the AV groove. Circumflex at the origin as it comes off from the left main has a 70% narrowing. LEFT VENTRICULOGRAM: Left ventriculogram was not performed. FINAL IMPRESSION: This patient has restenosis of proximal/ostial circumflex which is a nondominant vessel. LAD and left main as well as the right coronary artery, which were all previously stented, are widely patent with decent flow with noncritical disease of 30% to 35%. Filling pressures are slightly elevated. There is moderate to severe pulmonary hypertension with right-sided pressures increased as well. Cardiac output is 5.28 L. There is no oxygen step-up. Patient had a previous ASD closure. RECOMMENDATIONS: I will review the data with Dr. Collado to see if he will consider performing a mitral valve replacement and Tricuspid valve repair with sinle graft to LCX for this patient. Circumflex can be addressed by a stent or he can have a mitral valve replacement with a single graft to the circumflex and possibly to the LAD as well. I will discuss this with Dr. Collado for now. We will pursue medical therapy and patient will be discharged later on today if he remains stable. My thoughts were discussed in detail with the patient and his . MMPEÑAL / WHITN: [id number] / MTDD
[2021-06-18 15:16] VITALS: RESP 16
[2021-06-18 16:47] VITALS: BP 135/63; PULSE 69
--- NOTE | 2021-06-22 16:03 | P.TEE ---
Date of Procedure: 06/18/21 Preoperative Diagnosis: Mitral and tricuspid regurgitation. Status post mitral valve clip Postoperative Diagnosis: 3+ mitral regurgitation and severe tricuspid regurgitation. Moderate to severe pulmonary hypertension Description of Procedure(s): INDICATION: This is a 81-year-old gentleman with history of ischemic heart disease, mitral and tricuspid regurgitation. Status post mitral valve replacement. Patient has been complaining of increasing shortness of breath. CT examination is recommended for further evaluation of mitral regurgitation CONSENT: Informed verbal consent is obtained from the patient and family PROCEDURE:. Patient was brought to the lab in a fasting state. He was prepped and draped in the usual fashion. Patient was given total of 2 mg of Versed and 25 g of fentanyl for sedation. The throat was sprayed with Hurricaine. A lubricated Omni probe was introduced in the oropharynx and was advanced into the esophagus. Multiple views were obtained. Saline contrast bubble injection is performed. Color, pulsed and continuous and Doppler studies were done. Patient tolerated the procedure well. No immediate complication FINDINGS:. The mitral valve shows evidence of previous clipped. There is eccentric mitral regurgitation which appears to be 3 to 4+. There appears to be eccentric mitral regurgitation directed posterior laterally. The Pisa values 0.9-1 cm. Biatrial enlargement. There is a positive device across interatrial septum. No clot in the left atrial appendage. No reversal of flow in the pulmonary veins. LV function appeared be mildly impaired contrast saline bubble injection did not show any crossing of the bubbles. The aortic valve function appear to be normal and there is severe tricuspid regurgitation. There is also moderate to severe pulmonary hypertension IMPRESSION: #1. Moderate to severe mitral regurgitation which is eccentric and directed posterolaterally #2. Severe tricuspid regurgitation #3. Biatrial enlargement. #4. Atrial septal closure device, which seemed to be intact #5. No clot in the left atrial appendage. #6. Left ventricular function appeared to be mildly impaired PLAN:. Continued medical therapy. Possible mitral valve replacement and tricuspid valve repair
== END 2021-06-18 20:20 | disposition home or self-care (01) ==
LOC: CATHCVL 07:05 → 6NMEDSUR 11:38 → CATHCVL 20:20
PROVIDERS: ATTEND Internal Medicine Interventional Cardiology
DX: I48.19 Other persistent atrial fibrillation (principal); I49.5 Sick sinus syndrome; Z95.0 Presence of cardiac pacemaker; I25.10 Atherosclerotic heart disease of native coronary artery without angina pectoris; I25.84 Coronary atherosclerosis due to calcified coronary lesion; I10 Essential (primary) hypertension; E78.5 Hyperlipidemia, unspecified; F17.210 Nicotine dependence, cigarettes, uncomplicated; I27.20 Pulmonary hypertension, unspecified; I08.1 Rheumatic disorders of both mitral and tricuspid valves; I65.23 Occlusion and stenosis of bilateral carotid arteries; Z79.01 Long term (current) use of anticoagulants; Z79.899 Other long term (current) drug therapy; Z79.02 Long term (current) use of antithrombotics/antiplatelets; Z95.5 Presence of coronary angioplasty implant and graft; Z95.818 Presence of other cardiac implants and grafts; Z20.822 Contact with and (suspected) exposure to COVID-19
CPT/HCPCS: 93312; 93320; 93325; 93460; 85018; 82810; 85610; 87635; C1894 ×2; C1769 ×2; J2250; J2001; J3010; Q9967

== ENCOUNTER → 2021-07-04 | Outpatient (CLI) | payer MEDICARE, BC ==
[2021-07-04 11:26] LABS: Color,Urine Yellow
[2021-07-04 11:27] LABS: Appearance,Urine Clear (Clear); Bilirubin,Urine Negative (Negative); Blood,Urine Negative (Negative); Glucose,Urine (UA) Negative (Negative); Ketones,Urine Negative (Negative); Leukocyte Esterase,Urine Negative (Negative); Nitrite,Urine Negative (Negative); PH, Urine 5.5 (5.0-8.0); Protein,Urine Trace (Negative); Specific Gravity,Urine 1.025 (1.001-1.035); Urobilinogen,Urine <2.0 mg/dL (<2.0)
[2021-07-04 15:45] LABS: % Iron Saturation 14.99 (15.00-50.00); African American GFR (CKD) 47.2 (60.0-200.0); Albumin 4.2 g/dL (3.8-4.9); Albumin/Globulin Ratio 1.29 (1.60-3.17); Anion Gap 14.7 mmol/L (10.00-18.00); BUN/Creat Ratio 24.71 Ratio (12.00-20.00); Blood Urea Nitrogen 38.8 mg/dL (9.0-27.0); Calcium 9.3 mg/dL (8.7-10.3); Carbon Dioxide 21.7 mmol/L (20.0-27.5); Globulin 3.2 g/dL (1.6-3.3); Magnesium 2.6 mg/dL (1.5-2.4); Non-African American GFR(CKD) 40.7 (60.0-200.0); Phosphorus 3.2 mg/dL (2.4-5.1); Potassium 3.6 mmol/L (3.5-5.5); Total Bilirubin 0.5 mg/dL (0.30-1.20); Total Protein 7.4 g/dL (6.2-8.2); Uric Acid 5.8 mg/dL (3.7-8.7)
[2021-07-04 16:08] LABS: Basophils # (A) 0.03 X 10*3/uL (0.00-0.10); Basophils % (A) 0.5 %; Eosinophils # (A) 0.35 X 10*3/uL (0.04-0.35); Eosinophils % (A) 5.3 %; HCT 39.8 % (39.6-50.0); HGB 12.4 g/dL (13.0-17.0); Immature Grans, Automated 0.3 %; Lymphocytes # (A) 0.52 X 10*3/uL (0.90-5.00); Lymphocytes % (A) 7.8 %; MCH 30.5 pg (27.0-32.0); MCHC 31.2 g/dL (32.0-37.0); MCV 97.8 fL (80.0-97.0); Mean Platelet Volume 10.9 fL (9.5-12.2); Monocytes # (A) 0.54 X 10*3/uL (0.20-1.00); Monocytes % (A) 8.1 %; NRBC Per 100 WBC 0 /100 WBCS (0.0-0.0); Neutrophils # (A) 5.19 X 10*3/uL (1.80-7.70); Platelet Count 174 X 10*3/uL (140-440); RBC 4.07 X 10*6/uL (4.40-5.60); WBC 6.65 X 10*3/uL (4.50-10.00)
[2021-07-04 16:21] LABS: Ferritin 99.3 ng/mL (22.0-322.0)
== END | disposition home or self-care (01) ==
LOC: LABWHC1 09:20
PROVIDERS: ATTEND Nurse Practitioner Family
DX: N25.81 Secondary hyperparathyroidism of renal origin (principal); N18.32 Chronic kidney disease, stage 3b; D64.9 Anemia, unspecified; N39.0 Urinary tract infection, site not specified; E55.9 Vitamin D deficiency, unspecified; M10.9 Gout, unspecified
CPT/HCPCS: 36415; 80053; 81003; 82306; 82728; 83540; 83550; 83735; 83970; 84100; 84550; 85025

== ENCOUNTER → 2021-07-14 | Outpatient (CLI) | payer MEDICARE, BC ==
--- NOTE | 2021-07-14 13:26 | CT ---
EXAMINATION TYPE: CT chest wo con DATE OF EXAM: 07/14/2021 COMPARISON: 08/24/2018 HISTORY: 81-year-old male pre op open heart, SOB. TECHNIQUE: Contiguous axial scanning of the chest without IV contrast. Coronal and sagittal reconstru ctions performed. CT DLP: 499 mGycm Automated exposure control for dose reduction was used. FINDINGS: Left anterior chest wall pacemaker generator with right ventricular lead. PFO closure device noted. Heart borderline in size without pericardial effusion. Extensive three-vessel coronary artery calcifi cations are present. 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 Mild assess cardiac arch calcifications with convent ional arch vessel branching anatomy. Enlarged caliber to the main right and left pulmonary arteries measuring up to 2.7 cm suggesting unde rlying pulmonary hypertension. Low right paratracheal lymph node 1.7 cm versus 1.6 cm, previously. Numerous additional nonenlarged a nd borderline sized AP window and paratracheal nodes measuring up to 1.1 cm are relatively similar. A few are slightly larger. Indolent growth suggests a benign postinflammatory etiology. Six-month foll ow-up recommended to reassess. There is continued moderate right-sided pleural effusion with a prominent subpulmonic component. Asso ciated mild smooth diffuse pleural thickening. There is masslike area of consolidation posteromedial right base with some punctate calcifications th at measures 5.7 x 3.4 cm, suspected area of rounded atelectasis. Mild interstitial prominence and minimal emphysematous change. Minimal right apical pleural parenchym al scarring. Tiny hiatal hernia. Visualized upper abdomen shows extensive atherosclerotic calcifications throughou t the abdominal aorta and visceral artery branches and a tiny inferior splenule. Bones: Osteopenia. Mild degenerative disc disease. IMPRESSION: 1. MODERATE RIGHT PLEURAL EFFUSION. SOME CHRONIC APPEARING SMOOTH PLEURAL THICKENING ON THE RIGHT. IF NO KNOWN DIAGNOSIS, CONSIDER DIAGNOSTIC THORACENTESIS. 2. MASSLIKE AREA OF CONSOLIDATION POSTEROMEDIAL RIGHT LOWER LOBE MEASURING 5.7 X 2.4 CM. ROUNDED ATEL ECTASIS IS FAVORED OVER NEOPLASM. PET SCAN VERSUS THREE-MONTH FOLLOW-UP CONTRAST ENHANCED CT TO REASS ESS. 3. BORDERLINE TO MILDLY ENLARGED (MEASURING UP TO 1.7 CM) AND NUMEROUS NONENLARGED MEDIASTINAL LYMPH NODES LIKELY REACTIVE/POST INFLAMMATORY. THESE SHOULD ALSO BE REASSESSED AT THE PATIENT'S FOLLOW-UP. SIMILAR DISTRIBUTION COMPARED TO 2019. 4. COPD WITH MILD EMPHYSEMA. PULMONARY ARTERIAL HYPERTENSION. 5. CAD WITH SEVERE THREE-VESSEL CORONARY ARTERY CALCIFICATIONS. PFO CLOSURE DEVICE. RIGHT VENTRICULAR PACEMAKER LEAD.
== END | disposition home or self-care (01) ==
LOC: RADCTMAIN 12:12
PROVIDERS: ATTEND Thoracic Surgery (Cardiothoracic Vascular Surgery)
DX: Z01.810 Encounter for preprocedural cardiovascular examination (principal); J90 Pleural effusion, not elsewhere classified; J43.9 Emphysema, unspecified; I27.21 Secondary pulmonary arterial hypertension; I25.10 Atherosclerotic heart disease of native coronary artery without angina pectoris; R59.0 Localized enlarged lymph nodes; Z95.818 Presence of other cardiac implants and grafts
CPT/HCPCS: 71250

== ENCOUNTER → 2021-07-22 | Outpatient (CLI) | payer MEDICARE, BC ==
--- NOTE | 2021-07-22 10:19 | P.PN ---
Progress Note - Text Progress Note Date: 07/22/21 5 meter walk test completed without difficulty: #1 4.97 seconds #2 3.90 seconds #3 4.42 seconds
--- NOTE | 2021-07-22 12:49 | US ---
EXAMINATION TYPE: US carotid duplex BILAT DATE OF EXAM: 07/22/2021 COMPARISON: Prior carotid FEBRUARY 14, 2020 CLINICAL HISTORY: Mitral/tricuspid Insufficiency CAD. EXAM MEASUREMENTS: RIGHT: Peak Systolic Velocity (PSV) cm/sec ----- Right CCA: 52.4 ----- Right ICA: 52.4 ----- Right ECA: 82.0 ICA/CCA ratio: 1.0 RIGHT: End Diastole cm/sec ----- Right CCA: 11.8 ----- Right ICA: 16.8 ----- Right ECA: 11.7 LEFT: Peak Systolic Velocity (PSV) cm/sec ----- Left CCA: 42.9 ----- Left ICA: 61.2 ----- Left ECA: 83.4 ICA/CCA ratio: 1.4 LEFT: End Diastole cm/sec ----- Left CCA: 10.0 ----- Left ICA: 18.4 ----- Left ECA: 5.4 VERTEBRALS (direction of flow): Right Vertebral: Antegrade Left Vertebral: Antegrade Rhythm: Normal [id number] peripheral calcified plaque on grayscale images. IMPRESSION: No hemodynamically significant stenosis in either internal carotid artery. No significan t change from prior carotid ultrasound. Criteria for Assigning % of Stenosis / Diameter reduction (Estimation based on the indirect measurements of the internal carotid artery velocities (ICA PSV). 1. Normal (no stenosis)=ICA PSV < 125 cm/s: ratio < 2.0: ICA EDV<40 cm/s. 2. Less than 50% stenosis=ICA PSV < 125 cm/s: ratio < 2.0: ICA EDV<40 cm/s. 3. 50 to 69% stenosis=ICA PSV of 125 to 230 cm/s: ration 2.0 ? 4.0: ICA EDV 40-100 cm/s. 4. Greater than 70% stenosis to near occlusion= ICA PSV > 230 cm/s: ratio > 4.0: ICA EDV > 100 cm/s. 5. Near occlusion= ICA PSV velocities may be low or undetectable: variable ratio and ICA EDV. 6. Total occlusion=unable to detect flow.
--- NOTE | 2021-07-23 08:06 | US ---
EXAMINATION TYPE: US vein mapping BILAT DATE OF EXAM: 07/22/2021 10:49 AM COMPARISON: NONE CLINICAL HISTORY: Mitral/Tricuspid Insufficiency CAD. Preop SIDE PERFORMED: Bilateral TECHNIQUE: Lower extremity saphenous vein is examined and measured utilizing real time linear array sonography. Patient History:Pre-op CABG Smoker: no Heart Disease: yes Previous DVT: no Discoloration: No Hypertension: Yes Diabetes: No Paralysis: No Varicosities: Yes Edema: Yes DUPLEX FINDINGS: Greater Saphenous: Color flow seen Lesser Saphenous: Color flow seen Measurements in mm: Right Greater Saphenous: Groin: 4.6 x 5.1 mm High Thigh: 3.7 x 3.4 mm Mid Thigh: 4.2 x 2.4 mm Above Knee: 4.5 x 3.2 mm Knee: 4.1 x 3.7 mm Below Knee: 3.7 x 3.5 mm Mid Calf: 3.8 x 3.4 mm At Ankle: 4.0 x 3.1 mm Left Greater Saphenous: Groin: 9.0 x 6.2 mm High Thigh: 3.5 x 2.9 mm Mid Thigh: 3.2 x 2.7 mm Above Knee: 4.0 x 2.8 mm Knee: 4.3 x 3.1 mm Below Knee: 4.0 x 2.6 mm Mid Calf: 2.7 x 2.0 mm At Ankle: 2.7 x 2.0 mm IMPRESSION: 1. Bilateral GSV measurements listed above. 2. Performing surgeon to determine viability as conduit.
--- NOTE | 2021-07-23 08:07 | US ---
EXAMINATION TYPE: US arterial LE multi level DATE OF EXAM: 07/22/2021 11:17 AM CLINICAL HISTORY: Mitral/Tricuspid Insufficiency CAD. History of hypertension, hyperlipidemia, and pr ior heart attack. Pre-CABG. Doppler Waveforms: Right: Biphasic Left: Biphasic Pressure Gradients: Ankle-Brachial Indices: Right: 0.91 Left: CNO PT and DP Toe Brachial Indices: Right: 0.61 Left: 0.38 IMPRESSION: No significant stenosis right lower extremity. Suboptimal evaluation on the left. Toe br achial index suggests mild to moderate peripheral arterial disease left lower extremity.
== END | disposition home or self-care (01) ==
LOC: LABWHC1 10:07
PROVIDERS: ATTEND Thoracic Surgery (Cardiothoracic Vascular Surgery)
DX: Z01.810 Encounter for preprocedural cardiovascular examination (principal); I73.9 Peripheral vascular disease, unspecified; I25.10 Atherosclerotic heart disease of native coronary artery without angina pectoris; I08.1 Rheumatic disorders of both mitral and tricuspid valves
CPT/HCPCS: 36415; 87070; 93005; 93880; 93923; 93970

== ENCOUNTER 2021-07-28 05:38 | Inpatient (IN) | payer MEDICARE, BC ==
--- NOTE | 2021-07-27 10:00 | P.PN ---
Progress Note - Text Progress Note Date: 07/22/21 5 meter walk test completed 07/22/21 without incident: #1 4.97 seconds #2 3.90 seconds #3 4.42 seconds
[~2021-07-28 05:38] MED LIST changes: +ALBUMIN HUMAN 25% 50 ML IV ONE; +ALBUMIN HUMAN 5% 500 ML IVPB ONE; -ALPRAZolam 0.25 MG TAB PO PRN; -ALPRAZolam 0.5 MG TAB PO PRN; +ASPIRIN 325 MG TAB PO ONE; -ASPIRIN 325 MG TAB PO STA; +ATORVASTATIN 10 MG TAB PO ONE; +CALCIUM CHLORIDE 100 MG/ML 10 ML SYRINGE IV ONE; +CARDIOPLEGIC SOLN (K+ 16 MEQ/L 1,000 ML with SODIUM BICARB (1 MEQ/ML) 20 ML, LIDOCAINE ... PERFUSION ONE; +CHLORHEXIDINE GLUCONATE 15 ML CUP MUCOUS MEM ONE; +CLEVIDIPINE BUTYRATE 25 MG in EMPTY BAG 1 BAG IV ONE; +HEPARIN SODIUM 1,000 UN/ML (10ML VL) IV ONE; -HEPARIN SODIUM,PORCINE 10,000 UNIT in SODIUM CHLORIDE 0.9% 1,000 ML IRRIGATION PRN; -HEPARIN SODIUM,PORCINE 2,500 UNIT in SODIUM CHLORIDE 0.9% 250 ML IRRIGATION PRN; +HEPARIN SODIUM,PORCINE 5,000 UNIT in SODIUM CHLORIDE 0.9% 500 ML 500 ML IV ONE; +INSULIN REGULAR 100 UNIT in SODIUM CHLORIDE 0.9% 100 ML IV ONE; +LACTATED RINGERS 1,000 ML IV ONE; +MAGNESIUM SULFATE 16.24 MEQ in EMPTY SYRINGE 1 SYR IV ONE; +MANNITOL 25% 12.5 GM/50 ML VIAL IV ONE; +METOPROLOL TARTRATE 12.5 MG TAB PO ONE; +NITROGLYCERIN SL TABS 0.4 MG TAB SUBLINGUAL ONE; -NITROGLYCERIN SL TABS 0.4 MG TAB SUBLINGUAL PRN; +NITROGLYCERIN-D5W PMX 25 MG/250 ML BTL IV ONE; +NITROGLYCERIN-D5W PMX 50 MG in DEXTROSE/WATER 1 250ML.BAG IV ONE; +NOREPINEPHRINE 4 MG in SODIUM CHLORIDE 0.9% 250 ML IV ONE; +PAPAVERINE 360 MG in SODIUM CHLORIDE 0.9% 90 ML IV ONE; +PHENYLEPHRINE 10 MG/ML VIAL IV ONE; +PHENYLEPHRINE 40 MG in SODIUM CHLORIDE 0.9% 250 ML IV ONE; +PROTAMINE SULFATE 10 MG/ML 25 ML VIAL IV ONE; +PROTAMINE SULFATE 250 MG in EMPTY BAG 1 BAG IV ONE; +SODIUM BICARB 8.4% 50 ML SYR (1 MEQ/ML) IV ONE; +SODIUM CHLORIDE 0.9% 1,000 ML IV ONE; -SODIUM CHLORIDE 0.9% 1,000 ML in EMPTY BAG 1 BAG IV ONE; +TRANEXAMIC ACID 2,000 MG in SODIUM CHLORIDE 0.9% 80 ML IV ONE; +ceFAZolin 1,000 MG in SODIUM CHLORIDE 0.9% IRRIGATIO 1,000 ML IRRIGATION ONE; +propofoL 1,000 MG/100 ML VIAL IV ONE
[2021-07-28] MEDS ORDERED: MIDAZOLAM 2 MG/2 ML VIAL IV PRN (06:06)
[2021-07-28] MEDS ORDERED: LACTATED RINGERS 1,000 ML IV SCH (06:06)
[2021-07-28 06:44] LABS: INR 1.9 (<1.2); Prothrombin Time 19.5 sec (9.0-12.0)
[2021-07-28] MEDS ORDERED: SODIUM CHLORIDE 0.9% 100 ML BAG ONE (07:50)
[2021-07-28] MEDS ORDERED: ETOMIDATE 2 MG/ML 10 ML VIAL ONE (07:50)
[2021-07-28] MEDS ORDERED: TRANEXAMIC ACID IN NACL,ISO-OS 1,000 MG/100 ML BAG ONE (07:50)
[2021-07-28] MEDS ORDERED: CALCIUM CHLORIDE 100 MG/ML 10 ML SYRINGE ONE (07:50)
[2021-07-28] MEDS ORDERED: ELECTROLYTE-R (PH 7.4) 1,000 ML IV.SOLN IV ONE ×2 (07:50)
[2021-07-28] MEDS ORDERED: fentaNYL (PF) 50 MCG/ML 50 ML VIAL ONE (07:50)
[2021-07-28] MEDS ORDERED: LIDOCAINE 2% SYG (PF) 100 MG/5 ML ONE (07:50)
[2021-07-28] MEDS ORDERED: ceFAZolin 1,000 MG VIAL ONE (07:50)
[2021-07-28] MEDS ORDERED: NITROGLYCERIN-D5W PMX 50 MG/250 ML BOTTLE IV ONE (07:50)
[2021-07-28] MEDS ORDERED: SUCCINYLCHOLINE CHLORIDE 100 MG/5 ML SYR IV ONE (07:50)
[2021-07-28] MEDS ORDERED: HEPARIN SODIUM,PORCINE 10,000 UNIT/ML 1 ML VIAL ONE (07:50)
[2021-07-28] MEDS ORDERED: VECURONIUM 10 MG VIAL IV ONE (07:50)
[2021-07-28] MEDS ORDERED: PHENYLEPHRINE-0.9% NACL SYG 1,000 MCG/10 ML SYRINGE ONE (07:50)
[2021-07-28] MEDS ORDERED: ALBUMIN HUMAN 5% (25gm) 500 ML VIAL IVPB ONE (07:50)
[2021-07-28] MEDS ORDERED: PROTAMINE SULFATE 10 MG/ML 5 ML VIAL IV ONE (07:50)
[2021-07-28] MEDS ORDERED: SODIUM CHLORIDE 0.9% IRRIG 1,000 ML BTL IRRIGATION ONE ×2 (07:50)
[2021-07-28] MEDS ORDERED: ePHEDrine 50 MG/ML 1 ML VIAL ONE (07:50)
[2021-07-28] MEDS ORDERED: MAGNESIUM SULFATE 4 MEQ/ML 10ML VIAL ONE (07:50)
[2021-07-28] MEDS ORDERED: MIDAZOLAM HCL 10 MG/10 ML VIAL ONE (07:50)
[2021-07-28 08:36] LABS: ABG Base Excess -2.8 mmol/L; ABG Glucose Whole Blood 84 mg/dL (75-99); ABG HCO3 21 mmol/L (21-25); ABG Hematocrit 33 % (34.0-46.0); ABG Ionized Calcium 4.6 mg/dL (4.5-5.3); ABG Lactic Acid Whole Blood 0.7 mmol/L (0.5-1.6); ABG Oxygen Saturation 99.4 % (94-97); ABG PCO2 34 mmHg (35-45); ABG PH 7.41 (7.35-7.45); ABG PO2 131 mmHg (83-108); ABG Potassium Whole Blood 3.6 mmol/L (3.4-4.5); ABG Sodium Whole Blood 143 mmol/L (135-146); ABG TCO2 22 mmol/L (19-24)
[2021-07-28 09:02] LABS: ABG Base Excess -3.1 mmol/L; ABG Glucose Whole Blood 83 mg/dL (75-99); ABG HCO3 22 mmol/L (21-25); ABG Hematocrit 31 % (34.0-46.0); ABG Ionized Calcium 4.6 mg/dL (4.5-5.3); ABG Lactic Acid Whole Blood 0.7 mmol/L (0.5-1.6); ABG Oxygen Saturation 99.3 % (94-97); ABG PCO2 39 mmHg (35-45); ABG PH 7.37 (7.35-7.45); ABG PO2 145 mmHg (83-108); ABG Potassium Whole Blood 3.5 mmol/L (3.4-4.5); ABG Sodium Whole Blood 142 mmol/L (135-146); ABG TCO2 23 mmol/L (19-24)
[2021-07-28 09:40] LABS: Hepatitis A Antibody IgM Nonreactive (Nonreactive); Hepatitis B Core IgM Nonreactive (Nonreactive); Hepatitis C IgG Antibody Nonreactive (Nonreactive)
[2021-07-28 10:10] LABS: ABG Base Excess -2.4 mmol/L; ABG Glucose Whole Blood 83 mg/dL (75-99); ABG HCO3 22 mmol/L (21-25); ABG Hematocrit 25 % (34.0-46.0); ABG Ionized Calcium 4.4 mg/dL (4.5-5.3); ABG Lactic Acid Whole Blood 0.8 mmol/L (0.5-1.6); ABG PCO2 36 mmHg (35-45); ABG PO2 379 mmHg (83-108); ABG Sodium Whole Blood 140 mmol/L (135-146); ABG TCO2 23 mmol/L (19-24)
[2021-07-28 10:40] LABS: ABG Base Excess -3.8 mmol/L; ABG Glucose Whole Blood 88 mg/dL (75-99); ABG HCO3 22 mmol/L (21-25); ABG Hematocrit 25 % (34.0-46.0); ABG Ionized Calcium 4.4 mg/dL (4.5-5.3); ABG Lactic Acid Whole Blood 0.9 mmol/L (0.5-1.6); ABG PCO2 43 mmHg (35-45); ABG PH 7.32 (7.35-7.45); ABG PO2 276 mmHg (83-108); ABG Sodium Whole Blood 142 mmol/L (135-146); ABG TCO2 24 mmol/L (19-24)
[2021-07-28 11:07] LABS: ABG Base Excess -2.7 mmol/L; ABG Glucose Whole Blood 89 mg/dL (75-99); ABG HCO3 23 mmol/L (21-25); ABG Ionized Calcium 4.4 mg/dL (4.5-5.3); ABG Lactic Acid Whole Blood 1.1 mmol/L (0.5-1.6); ABG PCO2 40 mmHg (35-45); ABG PH 7.36 (7.35-7.45); ABG PO2 372 mmHg (83-108); ABG Potassium Whole Blood 4.3 mmol/L (3.4-4.5); ABG Sodium Whole Blood 142 mmol/L (135-146); ABG TCO2 24 mmol/L (19-24)
[2021-07-28 11:15] LABS: Hepatitis B Surface Antigen Nonreactive (Nonreactive)
[2021-07-28 11:47] LABS: ABG Base Excess -3.3 mmol/L; ABG Glucose Whole Blood 89 mg/dL (75-99); ABG HCO3 22 mmol/L (21-25); ABG Ionized Calcium 4.2 mg/dL (4.5-5.3); ABG Lactic Acid Whole Blood 1.6 mmol/L (0.5-1.6); ABG PCO2 39 mmHg (35-45); ABG PH 7.35 (7.35-7.45); ABG PO2 370 mmHg (83-108); ABG Potassium Whole Blood 4.2 mmol/L (3.4-4.5); ABG Sodium Whole Blood 142 mmol/L (135-146); ABG TCO2 23 mmol/L (19-24)
[2021-07-28 12:16] LABS: ABG Hematocrit 23 % (34.0-46.0)
[2021-07-28 12:16] LABS: ABG Hematocrit 24 % (34.0-46.0)
[2021-07-28 12:53] LABS: ABG Base Excess -1.2 mmol/L; ABG Glucose Whole Blood 87 mg/dL (75-99); ABG HCO3 24 mmol/L (21-25); ABG Hematocrit 28 % (34.0-46.0); ABG Ionized Calcium 4.4 mg/dL (4.5-5.3); ABG Lactic Acid Whole Blood 1.6 mmol/L (0.5-1.6); ABG Oxygen Saturation 97.8 % (94-97); ABG PCO2 41 mmHg (35-45); ABG PH 7.37 (7.35-7.45); ABG PO2 97 mmHg (83-108); ABG Potassium Whole Blood 3.6 mmol/L (3.4-4.5); ABG Sodium Whole Blood 144 mmol/L (135-146); ABG TCO2 25 mmol/L (19-24)
[2021-07-28] MEDS ORDERED: Magnesium Replacement Protocol 1 EACH MISC MISCELLANE PRN (13:50)
[2021-07-28] MEDS ORDERED: Phosphorus Replacement Protoco 1 EACH MISC MISCELLANE PRN (13:50)
[2021-07-28] MEDS ORDERED: METOCLOPRAMIDE 5 MG/ML 2 ML VIAL IVP PRN (13:50)
[2021-07-28] MEDS ORDERED: DEXMEDETOMIDINE/0.9% NACL(PMX) 400 MCG in EMPTY BAG 1 BAG IV SCH (13:50)
[2021-07-28] MEDS ORDERED: IPRATROPIUM-ALBUTEROL 3 ML NEB INHALATION PRN (13:50)
[2021-07-28] MEDS ORDERED: CLEVIDIPINE BUTYRATE 25 MG in EMPTY BAG 1 BAG IV SCH (13:50)
[2021-07-28] MEDS ORDERED: ONDANSETRON 4 MG/2 ML VIAL IVP PRN (13:50)
[2021-07-28] MEDS ORDERED: CALCIUM GLUCONATE IN NACL 2 GM in SALINE 1 100ML.BAG IVPB PRN (13:50)
[2021-07-28] MEDS ORDERED: hydrALAZINE HCL 20 MG/ML 1 ML VIAL IVP PRN (13:50)
[2021-07-28] MEDS ORDERED: Potassium Replacement Protocol 1 EACH MISC MISCELLANE PRN (13:50)
[2021-07-28] MEDS ORDERED: INSULIN REGULAR 100 UNIT in SODIUM CHLORIDE 0.9% 100 ML IV SCH (13:50)
[2021-07-28] MEDS ORDERED: BENZOCAINE/MENTHOL LOZENG 1 EACH LOZENGE MUCOUS MEM PRN (13:50)
--- NOTE | 2021-07-28 13:55 | P.OP ---
Date of Procedure: 07/28/21 Preoperative Diagnosis: Digitation, tricuspid regurgitation, coronary artery disease, chronic atrial fibrillation, chronic systolic heart failure, ASD Postoperative Diagnosis: Same Procedure(s) Performed: Mitral valve replacement with 31 mm most porcine valve prosthesis, tricuspid valve repair with 30 mm and C3 band, epi-aortic ultrasound, CABG 1 with saphenous vein graft to obtuse marginal, endovascular vein harvest, closure of left atrial appendage, closure of ASD Implants: 31 mm Mosaic mitral valve, 30 mm MC 3 tricuspid band Anesthesia: GETA Surgeon: Paul Collado Rn Eligibility #1: Oswald Mcdowell Rn Eligibility #2: Bjorn Wilder Estimated Blood Loss (ml): 2,000 IV fluids (ml): 5,000 Urine output (ml): 500 Pathology: other (Portion mitral valve with mitral clip) Condition: critical Disposition: ICU Indications for Procedure: 81-year-old male who would been seen by Dr. Gallegos 2 years ago. At that time he had severe three-vessel coronary artery disease as well as mitral regurgitation and was scheduled for surgery. Ultimately surgery was canceled and he was transferred to [facility] where he underwent three-vessel stenting and mitral clip. Following this he improved but developed recurrent heart failure after 6 months. For the last 18 months she has been irrigated out of the hospital with recurrent heart failure. Recurrent visits to [facility] [place] [facility] and any further intervention. Cardiac catheterization shows stenosis of the circumflex coronary artery and the stent. LAD and right coronary stents are patent. AVIVA demonstrates recurrent 3+ severe mitral regurgitation as well as severe tricuspid regurgitation and persistent ASD. Patient was seen in the office. Although was recognized to be extremely high risk he was offered mitral valve replacement, tricuspid valve repair and CABG. Due to long-standing atrial fibrillation over 10 years with markedly dilated bilateral atria was decided not to perform a Schwartz-Maze procedure however we did plan on closing the left atrial appendage. Operative Findings: Patient was brought to the operating room, placed supine on the operating table, anesthetized and intubated. Monitoring lines been placed in the preop holding area. The anterior torso and bilateral lower extremities were sterilely prepped and draped. Left greater saphenous vein was harvested from the left thigh with endovascular vein harvest technique. Continue sternotomy was performed. Left pleural space was opened widely. The right pleural space was found to be fused. Pericardium was opened in the midline heart was exposed pericardial sutures. Patient was systemically heparinized. Epi-aortic ultrasound was performed. The ascending aorta was somewhat dilated and thickened but no discrete plaque or severe calcifications were noted. Patient was cannulated for cardiopulmonary bypass with a 7 mm soft flow cannula in the distal ascending aorta, 34-St Helenian straight venous cannula through the right atrium into the inferior vena cava and a 28 right angle cannula in the superior vena cava. Antegrade and retrograde cardioplegia lines were placed in standard fashion. Once the vein was ready, we went on cardiopulmonary bypass. The interatrial groove was developed. Aorta was crossclamped and the heart was arrested with cold crystalloid antegrade cardioplegia followed by retrograde cardioplegia. Another dose of retrograde cardioplegia was given and a one-hour interval. Lateral wall of the heart was exposed and the obtuse marginal identified. It was opened and was a 1.75 mm vessel with diffuse highly calcific wall disease. Saphenous vein was anastomosed in end-to-side fashion with running 7-0 Prolene suture. Completion anastomosis was probed and noted to be patent. Suture was tied with good resultant hemostasis. Was flushed with cold blood cardioplegia. Heart was lowered into anatomic position and the vein cut to appropriate length to reach the ascending aorta. The left atrium was now opened through the interatrial groove. The mitral valve was exposed with the Sunil retractor. Left atrial appendage was very large. It was oversewn with a 2 layer running closure of 3-0 Prolene suture. The anterior leaflet was incised parallel and directly next to the annulus. Valve sutures of pledgeted 2-0 Tycron were placed with pledgets on the ventricular side. We began anteriorly and worked our way to the trigones bilaterally. The A1 and A2 portions of the chordae were incorporated in the pledgets at the trigones. A portion of the anterior leaflet was resected including the base of the anterior leaflet and the mitral clip. Posterior leaflet was imbricated in the valve sutures as we continued circumferentially around with ligated 2-0 Tycron sutures on the ventricular side. Once we had completed the valve sutures the annulus was sized and a 31 mm Mosaic valve was chosen and brought up on the field and washed appropriately. The valve opening was copiously irrigated. Valve sutures were passed through the sewing ring of the valve prosthesis and it was seated without difficulty. The valve had been cinched. Sutures were tied and cut without difficulty of the valve was noted to seat well. The cinch sutures were now tied and the valve expanded well. Care was taken to place the posts at the trigones to avoid obstruction of the outflow tract. The valve was checked and no leak was noted. Again we irrigated and then closed the left atrium with a running single layer 3-0 Prolene suture. This suture was placed on tension and a basket was left in the left atrium. In the course of closing the left atrium a small ASD was noted should been noted on the preoperative AVIVA. This was closed with a single suture of 4-0 Prolene. We now performed the proximal anastomosis to a 4 mm punch hole in the ascending aorta using running 6-0 Prolene suture. On completion of this the right atrium was opened after snaring the caval tapes superiorly and inferiorly. The tricuspid valve was exposed. The anterior leaflet was sized and a 30 mm and cc 3 band was chosen. Circumferential 2-0 Tycron simple sutures were placed around the annulus avoiding the area of the conduction tissue. These were passed through the DMC 3 band and it was seated and the sutures tied and cut. Care was taken not to ensnare the ventricular pacing wire or the Addison-Brady catheter. Patient was now placed in Trendelenburg and the cross-clamp was removed. The right atriotomy was closed with a single layer running closure of 4-0 Prolene suture. Patient returned to simultaneous space rhythm. Did not require defibrillation. Hemostasis appeared good. Heart was de-aired through the aortic vent under AVIVA guidance. This we were fully rewarmed and happy with the de-airing the retrograde cardioplegia line was removed and the suture tied. The inferior vena caval cannula was pulled back into the right atrium and the superior vena caval cannula was removed and the pursestring tied. The aortic vent line was removed and this was reinforced with a 40 pledgeted Prolene suture. The patient was weaned from cardioplegic bypass without the use of inotropic support. He was somewhat hypotensive and dilated with high cardiac output and a low-dose leaflet drip was started. Heparin was reversed with protamine and he was decannulated in standard fashion. There was some persistent bleeding from the backside of the heart. On examining there was a small bleed at the base of the left atrial appendage. This was oversewn with a pledgeted 4-0 Prolene suture. Once good hemostasis was assured it was reinforced with a little BioGlue. Heparin had been reversed with protamine. Patient was given 2 FFP and 2 rounds of platelets. Once good hemostasis was assured the mediastinum was drained with 236-St Helenian chest tubes. The left pleural space was drained with 32-St Helenian chest tube. Chest was irrigated with antibiotic solution. The sternum was closed with 8 sternal wires. The fascia was closed with 0 Ethibond subcutaneous and subcuticular layers with layers of Vicryl suture. Dry sterile dressings were applied the patient was transferred to ICU in stable condition.
[2021-07-28] MEDS: LACTATED RINGERS 1,000 ML IV SCH (14:02)
[2021-07-28] MEDS: NOREPINEPHRINE 4 MG in SODIUM CHLORIDE 0.9% 250 ML IV SCH (14:02)
[2021-07-28] MEDS: ALBUMIN HUMAN 5% 250 ML in EMPTY BAG 1 BAG IVPB PRN ×5 (14:10→23:51)
--- NOTE | 2021-07-28 14:13 | P.CNPUL ---
History of Present Illness Consult date: 07/28/21 Requesting physician: Paul Collado Reason for consult: other Chief complaint: Status post mitral valve replacement, tricuspid valve repair, and single-ve History of present illness: Pulmonary consult dated 07/28/2021. 81-year-old male, that is seen in room 251, postop day #0, status post mitral valve replacement, tricuspid valve repair, and single-vessel bypass grafting, SVG to OM. The patient is seen in the intensive care unit. The patient is on the ventilator, with vent settings of volume assist control, rate of 14, tidal volume 500, FiO2 100%, and PEEP of 5. Arterial blood gases are currently pending. Blood gases in the operating room show pO2 of 97, pCO2 41, and pH is 7.37. His most recent cardiac output was 4.9 with index of 2.6. The patient was on norepinephrine at 5 g a minute and nitroglycerin at 5 mcg/m. The patient received 2 units of platelets, 2 units of fresh frozen plasma, and 2 500 bags of albumin. Estimated blood loss was 3000 mL. Additional labs, and x-ray is currently pending. The patient has a history of chronic heart failure, and renal insufficiency, among other things. Review of Systems REVIEW OF SYSTEMS: The review of systems cannot be obtained, as the patient is currently sedated and on the mechanical ventilator. Initially, when he was evaluated by cardiology and cardiothoracic surgery, his major complaint was shortness of breath on exertion. CONSTITUTIONAL: [Negative.] NEUROLOGIC: [ Negative.] HEENT: [ Negative.] CARDIAC: [Negative.] PULMONARY: [Negative.] GI: [Negative.] : [Negative.] RHEUMATOLOGIC: [ Negative.] IMMUNOLOGIC: [ Negative.] ENDOCRINE: [Negative. ] DERMATOLOGIC: [Negative.] Past Medical History Past Medical History: Atrial Fibrillation, Coronary Artery Disease (CAD), Heart Failure, COPD, Hyperlipidemia, Hypertension, Myocardial Infarction (AR), Osteoarthritis (OA), Pneumonia, Prostate Disorder, Renal Disease, Sleep Apnea/CPAP/BIPAP Additional Past Medical History / Comment(s): CPAP use, PSA elevated, CKD Stage 2-3, gout bilateral great toes. Last Myocardial Infarction Date:: 2001 History of Any Multi-Drug Resistant Organisms: None Reported Past Surgical History: Appendectomy, Heart Catheterization, Heart Catheterization With Stent, Orthopedic Surgery, Pacemaker Additional Past Surgical History / Comment(s): PCI with stents, pacemaker, percutaneous closure of ASD/PFO, multiple AVIVA, colonoscopy with benign polyps, R hand surgery for dupuytren's and injections to L hand for the same, ORIF R elbow and wrist as child. Past Anesthesia/Blood Transfusion Reactions: No Reported Reaction Additional Past Anesthesia/Blood Transfusion Reaction / Comment(s): Pt has clausterphobia Date of Last Stent Placement:: 10/2012 Type of Cardiac Device: Permanent Pacemaker Device Placement Date:: 2016 Past Psychological History: No Psychological Hx Reported Smoking Status: Former smoker Past Alcohol Use History: Heavy Additional Past Alcohol Use History / Comment(s): Started smoking in 1960 and quit in 1974. Hx of being a heavy drinker but quit about 2006. Very rare drink now, once a year. Past Drug Use History: None Reported - Past Family History Father Additional Family Medical History / Comment(s): Father had heart problems. Mother Family Medical History: AFIB Additional Family Medical History / Comment(s): Mother had heart problems. Sister(s) Family Medical History: Cancer Additional Family Medical History / Comment(s): One sister with breast cancer and another had a pacemaker. Medications and Allergies Home Medications Medication Instructions Recorded Confirmed Type Atorvastatin [Lipitor] 40 mg PO HS 07/21/14 07/25/21 History amLODIPine BESYLATE [Norvasc] 10 mg PO HS #30 tablet 05/06/16 07/25/21 Rx Clopidogrel Bisulfate [Plavix] 75 mg PO QAM 06/25/20 07/25/21 History Allopurinol [Zyloprim] 150 mg PO QAM 06/17/21 07/25/21 History Bumetanide [BUMEX] 1 mg PO QAM 06/17/21 07/25/21 History Bumetanide [Bumex] 3 mg PO HS 06/17/21 07/25/21 History Isosorbide Mononitrate ER [Imdur] 60 mg PO QAM 06/17/21 07/25/21 History Losartan Potassium 50 mg PO QAM 06/17/21 07/25/21 History Potassium Chloride [Klor-Con 20 20 meq PO BID 06/17/21 07/25/21 History Packets] Warfarin [Coumadin] 1 mg PO HS 06/17/21 07/25/21 History Ascorbic Acid [Vitamin C] 1,000 mg PO QAM 07/22/21 07/25/21 History Calcium Acetate 667 mg PO HS 07/22/21 07/25/21 History Ergocalciferol [Vitamin D2 (1250 1,250 mcg PO Q30D 07/22/21 07/25/21 History Mcg = 18167 Iu)] Ferrous Sulfate [Iron] 325 mg PO QAM 07/22/21 07/25/21 History Folic Acid 0.4 mg PO QAM 07/22/21 07/25/21 History Loratadine [Claritin] 10 mg PO QAM 07/22/21 07/25/21 History Mupirocin [Mupirocin 2%] 1 applic NASAL BID #1 tub 07/24/21 07/25/21 Rx Aspirin 325 mg PO DAILY 07/28/21 07/28/21 History Allergies Allergy/AdvReac Type Severity Reaction Status Date / Time furosemide [From Lasix] Allergy Swelling Verified 07/28/21 06:08 Physical Exam Osteopathic Statement: *. No significant issues noted on an osteopathic structural exam other than those noted in the History and Physical/Consult. Vitals: Vital Signs Temp Pulse Resp BP BP Pulse Ox 07/28/21 06:47 98 F 07/28/21 06:04 97.4 F L 86 18 157/73 125/74 91 L Intake and Output 07/27/21 07/28/21 07/28/21 22:59 06:59 14:59 Intake Total 100 1255 Output Total 3450 Balance 100 -2195 Intake: IV 100 52 Blood Product 1203 Ffp 24 Pher Acda Cnt1 267 Unit [id number] Ffp 24 Pher Acda Cnt2 248 Unit [id number] Platelet Pheresis Pas 332 Psoralen Unit [id number] Platelet Pheresis Pas 356 Psoralen Unit [id number] Output: Urine 450 Estimated Blood Loss 3000 Other: Weight 74.1 kg No acute distress, sedated and orally intubated. HEENT examination is grossly unremarkable. Neck supple. Full range of motion. No adenopathy thyromegaly or neck vein distention. Cardiovascular examination reveals regular rhythm rate. S1-S2 normal. No S3 or S4. No discernible murmur noted. Heart rate 86 bpm Lungs reveal mostly clear breath sounds. Breath sounds are equal bilaterally. Mild scattered rhonchi are noted. No wheezes or crackles. Abdomen soft, without bowel sounds. Extremities are intact. No cyanosis clubbing or edema. Skin is without rash or lesion. Neurologic examination cannot be assessed as the patient's currently sedated. Results - Laboratory Findings ABG ABG pH 7.35 (7.35-7.45) 07/28/21 11:47 ABG pCO2 39 mmHg (35-45) 07/28/21 11:47 ABG pO2 370 mmHg (83-108) H 07/28/21 11:47 ABG O2 Saturation 100.0 % (94-97) H 07/28/21 11:47 PT/INR, D-dimer PT 19.5 sec (9.0-12.0) H 07/28/21 06:30 INR 1.9 (<1.2) H 07/28/21 06:30 Abnormal lab findings: Abnormal Labs 07/22/21 07/28/21 07/28/21 08:58 06:30 08:36 PT 19.5 H INR 1.9 H ABG pH ABG pCO2 34 L ABG pO2 131 H ABG O2 Saturation 99.4 H ABG Hematocrit 33 L ABG Ionized Calcium Hemoglobin 10.7 L Crossmatch See Detail 07/28/21 07/28/21 07/28/21 09:02 10:10 10:40 PT INR ABG pH 7.32 L ABG pCO2 ABG pO2 145 H 379 H 276 H ABG O2 Saturation 99.3 H 100.0 H 100.0 H ABG Hematocrit 31 L 25 L 25 L ABG Ionized Calcium 4.4 L 4.4 L Hemoglobin 10.2 L 8.2 L 8.3 L Crossmatch 07/28/21 07/28/21 11:06 11:47 PT INR ABG pH ABG pCO2 ABG pO2 372 H 370 H ABG O2 Saturation 100.0 H 100.0 H ABG Hematocrit 23 L 24 L ABG Ionized Calcium 4.4 L 4.2 L Hemoglobin 7.5 L 7.7 L Crossmatch - Diagnostic Findings Chest x-ray: image reviewed Assessment and Plan Assessment: Postop day #0, status post mitral valve replacement, tricuspid valve repair, and single-vessel bypass grafting, saphenous vein graft to OM. Routine postoperative ventilator management. History of congestive heart failure. History of valvular heart disease, with previous mitral valve repair, with a MitraClip. Coronary artery disease. History of hyperlipidemia. History of renal insufficiency. Multiple medical problems and comorbidities. Plan: Plan dated 07/28/2021. The patient just arrived back to the intensive care unit. We'll await the chest x-ray in the blood gases. Additional recommendations and suggestions are forthcoming. The patient is currently on updrafts every 4 [id number]. We will continue to follow the patient, and attempt to get the patient extubated as soon as possible. In addition, post extubation, we will continue to work with the patient, to maintain normal lung function, and prevent atelectasis, lobar collapse, pleural effusion, or pneumonia. Time with Patient: Greater than 30
[2021-07-28 14:16] LABS: Glucose,Whole Blood 91 mg/dL (75-99)
[2021-07-28 14:26] LABS: ABG Base Excess -2.3 mmol/L; ABG HCO3 23 mmol/L (21-25); ABG Oxygen Saturation 99.2 % (94-97); ABG PCO2 43 mmHg (35-45); ABG PH 7.34 (7.35-7.45); ABG PO2 136 mmHg (83-108); ABG TCO2 25 mmol/L (19-24)
[2021-07-28 14:28] LABS: Allen Test Performed? no
[2021-07-28 14:40] LABS: Basophils % (A) 0 %; Eosinophils % (A) 1 %; HCT 24.2 % (39.0-53.0); HGB 7.9 gm/dL (13.0-17.5); Hypochromasia Slight; Lymphocytes # (A) 0.5 k/uL (1.0-4.8); Lymphocytes % (A) 5 %; MCH 31.8 pg (25.0-35.0); MCHC 32.6 g/dL (31.0-37.0); MCV 97.3 fL (80.0-100.0); Mean Platelet Volume 9.1; Monocytes # (A) 0.5 k/uL (0-1.0); Monocytes % (A) 6 %; Neutrophils % (A) 88 %; Platelet Count 103 k/uL (150-450); RBC 2.49 m/uL (4.30-5.90); RDW 14.9 % (11.5-15.5); WBC 9.2 k/uL (3.8-10.6)
[2021-07-28 14:42] LABS: INR 1.9 (<1.2); Partial Thromboplastin Time 50.6 sec (22.0-30.0); Prothrombin Time 18.7 sec (9.0-12.0)
--- NOTE | 2021-07-28 14:53 | XR ---
EXAMINATION TYPE: XR chest 1V portable DATE OF EXAM: 07/28/2021 COMPARISON: Chest x-ray 06/11/2021, 07/09/2021 HISTORY: Post operative, cardiac surgery TECHNIQUE: Single frontal view of the chest is obtained. FINDINGS: The patient is post median sternotomy and rotated, there is been cardiac valve replacement . Median sternal drains in place. Left chest tube is noted. Endotracheal tube and NG tube, right jugu lar central venous catheter are overlying appropriate positions, distal tip of the pulmonary arterial catheter overlying the pulmonary artery. Right-sided pleural effusion is again noted, there is assoc iated atelectasis, abnormal attenuation along the right lateral chest margin may be secondary to valentin ent positioning. No evident pneumothorax. Heart is likely enlarged. There is a pacemaker in the left pectoral region, lead is again noted in the right ventricle. IMPRESSION: Postop changes as described. Cardiomegaly, right pleural effusion persist, exam is rotat ed, follow-up.
[2021-07-28 14:56] LABS: Glucose,Whole Blood 92 mg/dL (75-99)
[2021-07-28 15:01] LABS: Albumin 2.7 g/dL (3.5-5.0); Magnesium 4.2 mg/dL (1.6-2.3); Potassium 3.6 mmol/L (3.5-5.1); Total Bilirubin 0.9 mg/dL (0.2-1.3); Total Protein 4.5 g/dL (6.3-8.2)
[2021-07-28] MEDS: POTASSIUM CHLORIDE 10 MEQ in WATER FOR INJECTION 1 100ML.BAG IVPB SCH ×2 (15:31→16:41)
[2021-07-28] MEDS: DOPamine DRIP 800 MG in DEXTROSE/WATER 1 250ML.BAG IV SCH (15:32)
[2021-07-28 15:41] LABS: Basophils % (A) 0 %; Eosinophils % (A) 0 %; HCT 21.4 % (39.0-53.0); Hypochromasia Slight; Lymphocytes # (A) 0.5 k/uL (1.0-4.8); Lymphocytes % (A) 7 %; MCH 31.5 pg (25.0-35.0); MCHC 32.4 g/dL (31.0-37.0); MCV 97.1 fL (80.0-100.0); Mean Platelet Volume 10.1; Monocytes # (A) 0.5 k/uL (0-1.0); Monocytes % (A) 6 %; Neutrophils # (A) 6.1 k/uL (1.3-7.7); Neutrophils % (A) 85 %; RDW 15.1 % (11.5-15.5); WBC 7.3 k/uL (3.8-10.6)
[2021-07-28 15:45] LABS: HGB 6.9 gm/dL (13.0-17.5)
[2021-07-28] MEDS ORDERED: IPRATROPIUM-ALBUTEROL 3 ML NEB INHALATION SCH (16:00)
[2021-07-28 16:12] LABS: Glucose,Whole Blood 98 mg/dL (75-99)
[2021-07-28 16:34] LABS: Platelet Count 70 k/uL (150-450)
[2021-07-28] MEDS: HEPARIN SODIUM,PORCINE/PF 5,000 UNIT/0.5 ML SYRINGE SQ SCH ×2 (16:40→23:05)
[2021-07-28 17:14] LABS: Glucose,Whole Blood 104 mg/dL (75-99)
[2021-07-28] MEDS: ACETAMINOPHEN IV (For NPO) 1,000 MG in EMPTY BAG 1 BAG IVPB SCH ×2 (17:48→23:54)
[2021-07-28 18:09] LABS: Glucose,Whole Blood 111 mg/dL (75-99)
[2021-07-28 18:16] LABS: ABG Base Excess -3.2 mmol/L; ABG HCO3 23 mmol/L (21-25); ABG Oxygen Saturation 94.1 % (94-97); ABG PCO2 48 mmHg (35-45); ABG PO2 73 mmHg (83-108); ABG TCO2 25 mmol/L (19-24); Allen Test Performed? Yes
[2021-07-28 19:03] LABS: Glucose,Whole Blood 114 mg/dL (75-99)
[2021-07-28] MEDS ORDERED: MUPIROCIN 2% OINT 22 GM TUBE NASAL ONE (19:15)
--- NOTE | 2021-07-28 19:38 | XR ---
EXAMINATION TYPE: XR chest 1V portable DATE OF EXAM: 07/28/2021 COMPARISON: Today HISTORY: Respiratory failure TECHNIQUE: Single view FINDINGS: Endotracheal tube is 3.5 cm from the [place]. There is nasogastric tube in the stomach. Ther e is right jugular catheter with tip in the right ovary artery. There is blunting right costophrenic angle. There are sternal wires. There is a left axillary pacemaker. There is pulmonary vascular conge stion. There is left-sided chest tube. No evidence of any significant pneumothorax. IMPRESSION: Right pleural effusion and pulmonary vascular congestion slightly improved compared to ex am earlier today. No pneumothorax.
[2021-07-28 19:59] LABS: Basophils % (A) 0 %; Eosinophils % (A) 1 %; HCT 25.5 % (39.0-53.0); HGB 8.1 gm/dL (13.0-17.5); Hypochromasia Slight; Lymphocytes # (A) 0.4 k/uL (1.0-4.8); Lymphocytes % (A) 4 %; MCH 30.6 pg (25.0-35.0); MCHC 31.7 g/dL (31.0-37.0); MCV 96.5 fL (80.0-100.0); Mean Platelet Volume 9.5; Monocytes # (A) 0.7 k/uL (0-1.0); Monocytes % (A) 8 %; Neutrophils # (A) 7.2 k/uL (1.3-7.7); Neutrophils % (A) 86 %; RBC 2.64 m/uL (4.30-5.90); RDW 14.9 % (11.5-15.5); WBC 8.4 k/uL (3.8-10.6)
[2021-07-28 20:02] LABS: Glucose,Whole Blood 117 mg/dL (75-99)
[2021-07-28 20:04] LABS: Platelet Count 85 k/uL (150-450)
[2021-07-28] MEDS: CALCIUM ACETATE 667 MG TAB PO SCH (20:23)
[2021-07-28] MEDS: ATORVASTATIN 40 MG TAB PO SCH (20:23)
[2021-07-28] MEDS: MUPIROCIN 2% OINT 22 GM TUBE NASAL SCH (20:25)
[2021-07-28] MEDS: IPRATROPIUM-ALBUTEROL 3 ML NEB INHALATION SCH (20:30)
[2021-07-28 20:57] LABS: Glucose,Whole Blood 115 mg/dL (75-99)
[2021-07-28 21:24] LABS: ABG HCO3 23 mmol/L (21-25); ABG PCO2 43 mmHg (35-45); ABG PH 7.34 (7.35-7.45); ABG PO2 81 mmHg (83-108); ABG TCO2 24 mmol/L (19-24); Allen Test Performed? Yes
[2021-07-28 22:05] LABS: Glucose,Whole Blood 128 mg/dL (75-99)
[2021-07-28 23:00] LABS: Glucose,Whole Blood 123 mg/dL (75-99)
[2021-07-28 23:59] LABS: Glucose,Whole Blood 131 mg/dL (75-99)
[2021-07-29] MEDS: NOREPINEPHRINE 4 MG in SODIUM CHLORIDE 0.9% 250 ML IV SCH ×3 (00:20→21:49)
[2021-07-29] MEDS ORDERED: HYDROcodone/APAP 5-325MG 1 EACH TAB PO PRN ×2 (00:23)
[2021-07-29 00:59] LABS: Glucose,Whole Blood 110 mg/dL (75-99)
[2021-07-29 01:57] LABS: Glucose,Whole Blood 136 mg/dL (75-99)
[2021-07-29 02:59] LABS: Glucose,Whole Blood 123 mg/dL (75-99)
[2021-07-29 04:19] LABS: Glucose,Whole Blood 123 mg/dL (75-99)
[2021-07-29 04:45] LABS: Basophils % (A) 0 %; Eosinophils % (A) 0 %; HCT 23.9 % (39.0-53.0); HGB 7.5 gm/dL (13.0-17.5); Hypochromasia Slight; Lymphocytes # (A) 0.3 k/uL (1.0-4.8); Lymphocytes % (A) 3 %; MCH 30.2 pg (25.0-35.0); MCHC 31.3 g/dL (31.0-37.0); MCV 96.3 fL (80.0-100.0); Monocytes # (A) 0.7 k/uL (0-1.0); Monocytes % (A) 8 %; Neutrophils # (A) 8.3 k/uL (1.3-7.7); Neutrophils % (A) 87 %; RBC 2.48 m/uL (4.30-5.90); RDW 15.3 % (11.5-15.5); WBC 9.5 k/uL (3.8-10.6)
[2021-07-29 04:46] LABS: Platelet Count 80 k/uL (150-450)
[2021-07-29 05:10] LABS: Glucose,Whole Blood 107 mg/dL (75-99)
[2021-07-29 05:21] LABS: Ionized Calcium 4.9 mg/dL (4.5-5.3)
[2021-07-29] MEDS: ALBUMIN HUMAN 5% 250 ML in EMPTY BAG 1 BAG IVPB PRN (05:22)
[2021-07-29 05:35] LABS: Albumin 3.2 g/dL (3.5-5.0); Calcium 7.7 mg/dL (8.4-10.2); Magnesium 3.5 mg/dL (1.6-2.3); Potassium 4.2 mmol/L (3.5-5.1); Total Bilirubin 0.9 mg/dL (0.2-1.3)
[2021-07-29 05:59] LABS: Glucose,Whole Blood 132 mg/dL (75-99)
[2021-07-29 07:04] LABS: Glucose,Whole Blood 130 mg/dL (75-99)
[2021-07-29 07:29] LABS: INR 2.7 (<1.2); Partial Thromboplastin Time 41.8 sec (22.0-30.0); Prothrombin Time 27.1 sec (9.0-12.0)
[2021-07-29] MEDS: HEPARIN SODIUM,PORCINE/PF 5,000 UNIT/0.5 ML SYRINGE SQ SCH ×2 (07:58→16:33)
--- NOTE | 2021-07-29 08:13 | P.CRDCN ---
History of Present Illness History of present illness: HISTORY OF PRESENTING ILLNESS Patient is pleasant 81-year-old male with history of coronary artery disease status post PCI of the RCA and circumflex, CKD, persistent atrial fibrillation, sick sinus syndrome status post permanent pacemaker, pulmonary hypertension, systolic heart failure, PFO status post PFO closure, mitral regurgitation and tricuspid regurgitation status post initial mitral clip. He follows in the office with Dr. Diego. He has been having issues with recurrent mainly left- sided heart failure with recurrent pleural effusions requiring thoracentesis. Initially he had a mitral clip performed which reduce the severe mitral insufficiency from 4+ to 2-3+ regurgitation however has had recurrent admissions for heart failure. Therefore workup was performed which showed 3+ mitral regurgitation as well as severe tricuspid regurgitation and heart catheterization showed obstructive circumflex disease. Therefore patient underwent mitral valve replacement, tricuspid valve repair and CABG 1 with SVG to OM as well as closure of ASD from the mitral clip and closure of left atrial appendage on 07/28/2020. Patient seen and examined 07/29. He denies any chest pain or pressure. He states that overall he is feeling "okay". He was able to tolerate clear liquid this morning. He has pacemaker set at 80, current cardiac index in the 2.4-3.1 range. PA pressures around 31/35 with a CVP of 15. He is getting lactated Ringer's at 50 mL per hour. He is still on low dose of norepinephrine as well as dopamine. His platelets decreased to 80 and therefore heparin and Plavix have been held for today. Hemoglobin 7.5 today REVIEW OF SYSTEMS At the time of my exam: CONSTITUTIONAL: Denies fever or chills. CARDIOVASCULAR: Denies chest pain, shortness of breath, orthopnea, PND or palpitations. RESPIRATORY: Denies cough. GASTROINTESTINAL: Denies abdominal pain, diarrhea, constipation, nausea or vomiting. MUSCULOSKELETAL: Denies myalgias. NEUROLOGIC: Denies numbness, tingling or weakness. ENDOCRINE: Denies fatigue, weight change, polydipsia or polyurina. GENITOURINARY: Denies burning, hematuria or urgency with micturation. HEMATOLOGIC: Denies history of anemia or bleeding. PHYSICAL EXAMINATION Vital signs reviewed. CONSTITUTIONAL: No apparent distress. HEENT: Head is normocephalic. Pupils are equal, round. Sclerae anicteric. Mucous membranes of the mouth are moist. No JVD. No carotid bruit. CHEST EXAMINATION: Lungs are clear to auscultation. Decreased breath sounds bilaterally HEART EXAMINATION: Regular rate and rhythm. S1, S2 heard. No murmurs, gallops or rub. ABDOMEN: Soft, nontender. Positive bowel sounds. EXTREMITIES: 2+ peripheral pulses, no lower extremity edema and no calf tenderness. NEUROLOGIC EXAMINATION: Patient is awake, alert and oriented x3. ASSESSMENT 1. S/p mitral valve replacement, tricuspid repair and one-vessel CABG SVG to OM 07/28, closure of ASD 2. History of mitral insufficiency status post initial mitral clip with cont inued mitral insufficiency 3. Coronary artery disease with prior history of PCI and most recent CABG 4. Permanent atrial fibrillation 5. Sick sinus syndrome status post permanent pacemaker 6. Pulmonary hypertension group 2 7. Postoperative anemia 8. Thrombocytopenia 9. Chronic systolic heart failure, mildly elevated CVP and PA pressures PLAN Patient appears to be recovering from recent surgery well. Monitor hemoglobin and platelets closely. Attempt to wean dopamine and norepinephrine as tolerated. Continue with gentle IV fluids as needed however mildly elevated CVP noted. Pacemaker set at 80 to improve cardiac output and adjust accordingly. Continue supportive care. Restart heparin and Plavix if platelets and hemoglobin improved. Past Medical History Past Medical History: Atrial Fibrillation, Coronary Artery Disease (CAD), Heart Failure, COPD, Hyperlipidemia, Hypertension, Myocardial Infarction (MS), Osteoarthritis (OA), Pneumonia, Prostate Disorder, Renal Disease, Sleep Apnea/CPAP/BIPAP Additional Past Medical History / Comment(s): CPAP use, PSA elevated, CKD Stage 2-3, gout bilateral great toes. Last Myocardial Infarction Date:: 2001 History of Any Multi-Drug Resistant Organisms: None Reported Past Surgical History: Appendectomy, Heart Catheterization, Heart Catheterization With Stent, Orthopedic Surgery, Pacemaker Additional Past Surgical History / Comment(s): PCI with stents, pacemaker, percu taneous closure of ASD/PFO, multiple AVIVA, colonoscopy with benign polyps, R hand surgery for dupuytren's and injections to L hand for the same, ORIF R elbow and wrist as child. Past Anesthesia/Blood Transfusion Reactions: No Reported Reaction Additional Past Anesthesia/Blood Transfusion Reaction / Comment(s): Pt has clausterphobia Date of Last Stent Placement:: 10/2012 Type of Cardiac Device: Permanent Pacemaker Device Placement Date:: 2016 Past Psychological History: No Psychological Hx Reported Smoking Status: Former smoker Past Alcohol Use History: Heavy Additional Past Alcohol Use History / Comment(s): Started smoking in 1 and quit in 1974. Hx of being a heavy drinker but quit about 2006. Very rare drink now, once a year. Past Drug Use History: None Reported - Past Family History Father Additional Family Medical History / Comment(s): Father had heart problems. Mother Family Medical History: AFIB Additional Family Medical History / Comment(s): Mother had heart problems. Sister(s) Family Medical History: Cancer Additional Family Medical History / Comment(s): One sister with breast cancer and another had a pacemaker. Medications and Allergies Home Medications Medication Instructions Recorded Confirmed Type Atorvastatin [Lipitor] 40 mg PO HS 07/21/14 07/25/21 History amLODIPine BESYLATE [Norvasc] 10 mg PO HS #30 tablet 05/06/16 07/25/21 Rx Clopidogrel Bisulfate [Plavix] 75 mg PO QAM 06/25/20 07/25/21 History Allopurinol [Zyloprim] 150 mg PO QAM 06/17/21 07/25/21 History Bumetanide [BUMEX] 1 mg PO QAM 06/17/21 07/25/21 History Bumetanide [Bumex] 3 mg PO HS 06/17/21 07/25/21 History Isosorbide Mononitrate ER [Imdur] 60 mg PO QAM 06/17/21 07/25/21 History Losartan Potassium 50 mg PO QAM 06/17/21 07/25/21 History Potassium Chloride [Klor-Con 20 20 meq PO BID 06/17/21 07/25/21 History Packets] Warfarin [Coumadin] 1 mg PO HS 06/17/21 07/25/21 History Ascorbic Acid [Vitamin C] 1,000 mg PO QAM 07/22/21 07/25/21 History Calcium Acetate 667 mg PO HS 07/22/21 07/25/21 History Ergocalciferol [Vitamin D2 (1250 1,250 mcg PO Q30D 07/22/21 07/25/21 History Mcg = 80002 Iu)] Ferrous Sulfate [Iron] 325 mg PO QAM 07/22/21 07/25/21 History Folic Acid 0.4 mg PO QAM 07/22/21 07/25/21 History Loratadine [Claritin] 10 mg PO QAM 07/22/21 07/25/21 History Mupirocin [Mupirocin 2%] 1 applic NASAL BID #1 tub 07/24/21 07/25/21 Rx Aspirin 325 mg PO DAILY 07/28/21 07/28/21 History Allergies Allergy/AdvReac Type Severity Reaction Status Date / Time furosemide [From Lasix] Allergy Swelling Verified 07/28/21 06:08 Physical Exam Vitals: Vital Signs Temp Pulse Resp BP Pulse Ox 07/29/21 07:00 80 16 98/72 90 L 07/29/21 06:45 80 15 93 L 07/29/21 06:30 80 15 92 L 07/29/21 06:15 80 14 92 L 07/29/21 06:00 80 15 96/68 94 L 07/29/21 05:45 80 12 94 L 07/29/21 05:30 80 19 93 L 07/29/21 05:15 80 26 H 78 L 07/29/21 05:00 80 20 106/69 92 L 07/29/21 04:45 80 17 92 L 07/29/21 04:30 80 11 L 94 L 07/29/21 04:15 80 14 92 L 07/29/21 04:00 96.1 F L 80 13 94/66 92 L 07/29/21 03:45 80 17 90 L 07/29/21 03:30 80 12 95 07/29/21 03:15 80 10 L 91 L 07/29/21 03:09 94 L 07/29/21 03:00 80 15 107/64 94 L 07/29/21 02:45 80 20 93 L 07/29/21 02:30 80 14 95 07/29/21 02:15 80 20 93 L 07/29/21 02:00 80 18 98/64 96 07/29/21 01:45 84 16 95 07/29/21 01:30 80 13 94 L 07/29/21 01:15 80 23 98/64 92 L 07/29/21 01:00 80 17 98/50 95 07/29/21 00:45 80 13 96 07/29/21 00:30 80 21 94 L 07/29/21 00:15 80 21 95 07/29/21 00:00 96.8 F L 80 24 103/62 93 L 03/28/22 23:45 80 14 92 L 07/28/21 23:30 80 16 90 L 07/28/21 23:19 80 21 89 L 07/28/21 23:15 80 18 91 L 07/28/21 23:00 80 17 102/59 89 L 07/28/21 22:45 80 14 85 L 07/28/21 22:30 80 17 91 L 07/28/21 22:15 82 28 H 89 L 07/28/21 22:00 80 14 110/64 90 L 07/28/21 21:45 80 22 90 L 07/28/21 21:30 80 22 94 L 07/28/21 21:15 79 21 95 07/28/21 21:00 77 14 104/63 98 07/28/21 20:45 80 14 99 07/28/21 20:30 87 29 H 100 07/28/21 20:15 80 15 98 07/28/21 20:00 97.7 F 80 13 105/64 98 07/28/21 19:45 80 23 99 07/28/21 19:30 80 23 99 07/28/21 19:15 80 17 95 07/28/21 19:00 80 12 100 07/28/21 18:45 80 20 100 07/28/21 18:30 80 10 L 99 07/28/21 18:15 80 13 98 07/28/21 18:00 80 22 90 L 07/28/21 17:45 80 14 99 07/28/21 17:44 96.8 F L 80 14 102/47 99 07/28/21 17:30 96.8 F L 80 9 L 95/39 97 07/28/21 17:20 97 F L 80 14 96/39 98 07/28/21 17:15 80 11 L 99 07/28/21 17:00 97.0 F L 80 14 106/64 100 07/28/21 16:45 80 14 100 07/28/21 16:30 80 14 100 07/28/21 16:15 80 14 99 07/28/21 16:00 96.8 F L 80 15 93/58 96 07/28/21 15:45 80 14 96 07/28/21 15:30 80 14 100 07/28/21 15:18 78 07/28/21 15:15 80 14 98 07/28/21 15:00 80 14 93/58 99 07/28/21 14:45 80 14 92/60 99 07/28/21 14:30 80 14 92/60 100 07/28/21 14:15 81 11 L 92/60 100 07/28/21 14:00 95.5 F L 80 14 100 07/28/21 13:55 80 Intake and Output 07/28/21 07/29/21 07/29/21 22:59 06:59 14:59 Intake Total 1413.029 0913.241 89 Output Total 1265 780 70 Balance 297.829 662.241 19 Intake: IV 1089 1247 89 Albumin Human 5% 250 ml 500 500 In Empty Bag 1 bag @ 250 mls/hr IVPB Q1HR PRN Rx#: [id number] CO/CI 170 260 30 Lactated Ringers 1,000 ml 350 400 50 @ 50 mls/hr IV .Q20H PHIL Rx#:[id number] Pressure Bags 69 87 9 Intake, IV Titration 163.829 195.241 Amount DOPamine DRIP 800 mg In 25.101 Dextrose/Water 1 250ml. bag @ 3 MCG/KG/MIN 4.168 mls/hr IV .Q24H PHIL Rx#: [id number] Insulin Regular 100 unit 3.308 In Sodium Chloride 0.9% 100 ml @ Per Protocol IV .Q0M PHIL Rx#:[id number] Norepinephrine 4 mg In 118.907 191.933 Sodium Chloride 0.9% 250 ml @ 0.05 MCG/KG/MIN 14. 116 mls/hr IV .Q18H PHIL Rx#:[id number] propofoL 1,000 mg In 19.821 Empty Bag 1 bag @ Titrate IV .Q0M PHIL Rx#: [id number] Blood Product 310 Rc As-1 Unit 310 [id number] Output: Drainage [address] x2 510 190 30 Urine 590 370 30 Other: Voiding Method Indwelling Catheter Indwelling Catheter Weight 80 kg ABP, PAP, CO, CI - Last 8 Hours Arterial Blood Pressure 95/44 Arterial Blood Pressure 103/46 Arterial Blood Pressure 103/45 Arterial Blood Pressure 98/40 Arterial Blood Pressure 100/41 Arterial Blood Pressure 95/41 Arterial Blood Pressure 94/42 Arterial Blood Pressure 105/50 Arterial Blood Pressure 104/50 Arterial Blood Pressure 88/38 Arterial Blood Pressure 103/48 Arterial Blood Pressure 79/40 Arterial Blood Pressure 92/41 Arterial Blood Pressure 93/40 Arterial Blood Pressure 104/45 Arterial Blood Pressure 96/43 Arterial Blood Pressure 100/44 Arterial Blood Pressure 111/45 Arterial Blood Pressure 98/44 Arterial Blood Pressure 93/41 Arterial Blood Pressure 97/43 Arterial Blood Pressure 99/44 Arterial Blood Pressure 101/45 Arterial Blood Pressure 100/42 Pulmonary Artery Pressure 35/31 Pulmonary Artery Pressure 37/31 Pulmonary Artery Pressure 37/31 Pulmonary Artery Pressure 34/27 Pulmonary Artery Pressure 33/26 Pulmonary Artery Pressure 33/22 Pulmonary Artery Pressure 40/25 Pulmonary Artery Pressure 60/39 Pulmonary Artery Pressure 50/21 Pulmonary Artery Pressure 46/22 Pulmonary Artery Pressure 53/25 Pulmonary Artery Pressure 55/28 Pulmonary Artery Pressure 51/28 Pulmonary Artery Pressure 35/30 Pulmonary Artery Pressure 51/25 Pulmonary Artery Pressure 41/28 Pulmonary Artery Pressure 51/18 Pulmonary Artery Pressure 42/29 Pulmonary Artery Pressure 43/23 Pulmonary Artery Pressure 40/26 Pulmonary Artery Pressure 51/21 Pulmonary Artery Pressure 67/21 Pulmonary Artery Pressure 51/21 Pulmonary Artery Pressure 51/23 Pulmonary Artery Pressure 50/21 Pulmonary Artery Pressure 46/30 Pulmonary Artery Pressure 50/25 Pulmonary Artery Pressure 35/35 Cardiac Output 4.4 Cardiac Output 5.7 Cardiac Output 4.4 Cardiac Output 4.4 Cardiac Output 5.4 Cardiac Output 5.6 Cardiac Output 5 Cardiac Index 2.4 Cardiac Index 3.1 Cardiac Index 2.4 Cardiac Index 2.4 Cardiac Index 2.9 Cardiac Index 3 Cardiac Index 2.7 Results 07/29/21 04:26 07/29/21 04:26 Cardiac Enzymes 07/28/21 07/28/21 07/28/21 Range/Units 06:30 06:30 08:36 WBC (3.8-10.6) k/uL RBC (4.30-5.90) m/uL Hgb (13.0-17.5) gm/dL Hct (39.0-53.0) % MCV (80.0-100.0) fL MCH (25.0-35.0) pg MCHC (31.0-37.0) g/dL RDW (11.5-15.5) % Plt Count (150-450) k/uL MPV Neutrophils % % Lymphocytes % % Monocytes % % Eosinophils % % Basophils % % Neutrophils # (1.3-7.7) k/uL Lymphocytes # (1.0-4.8) k/uL Monocytes # (0-1.0) k/uL Eosinophils # (0-0.7) k/uL Basophils # (0-0.2) k/uL Manual Slide Review Hypochromasia PT 19.5 H (9.0-12.0) sec INR 1.9 H (<1.2) APTT (22.0-30.0) sec Fibrinogen (200-500) mg/dL Sample Site [facility] ABG pH 7.41 (7.35-7.45) ABG pCO2 34 L (35-45) mmHg ABG pO2 131 H (83-108) mmHg ABG HCO3 21 (21-25) mmol/L ABG Total CO2 22 (19-24) mmol/L ABG O2 Saturation 99.4 H (94-97) % ABG Base Excess -2.8 mmol/L ABG Hematocrit 33 L (34.0-46.0) % Tien Test ABG Sodium 143 (135-146) mmol/L ABG Potassium 3.6 (3.4-4.5) mmol/L ABG Ionized Calcium 4.6 (4.5-5.3) mg/dL ABG Glucose 84 (75-99) mg/dL ABG Lactic Acid 0.7 (0.5-1.6) mmol/L Hemoglobin 10.7 L (13.0-17.5) gm/dL FiO2 % Sodium (137-145) mmol/L Potassium (3.5-5.1) mmol/L Chloride (98-107) mmol/L Carbon Dioxide (22-30) mmol/L Anion Gap mmol/L BUN (9-20) mg/dL Creatinine (0.66-1.25) mg/dL Est GFR (CKD-EPI)AfAm (>60 ml/min/1.73 sqM) Est GFR (CKD-EPI)NonAf (>60 ml/min/1.73 sqM) Glucose (74-99) mg/dL POC Glucose (mg/dL) (75-99) mg/dL POC Glu Director Marketing Analytics ID Calcium (8.4-10.2) mg/dL Ionized Calcium Kristi (4.5-5.3) mg/dL Magnesium (1.6-2.3) mg/dL Total Bilirubin (0.2-1.3) mg/dL AST (17-59) U/L ALT (4-49) U/L Alkaline Phosphatase (38-126) U/L Total Protein (6.3-8.2) g/dL Albumin (3.5-5.0) g/dL Arterial Blood Potassium 3.6 (3.4-4.5) mmol/L Arterial Blood Glucose 84 (75-99) mg/dL Hepatitis A IgM Ab Nonreactive (Nonreactive) Hep Bs Antigen Nonreactive (Nonreactive) Hep B Core IgM Ab Nonreactive (Nonreactive) Hep C IgG Ab Nonreactive (Nonreactive) 07/28/21 07/28/21 07/28/21 Range/Units 09:02 10:10 10:40 WBC (3.8-10.6) k/uL RBC (4.30-5.90) m/uL Hgb (13.0-17.5) gm/dL Hct (39.0-53.0) % MCV (80.0-100.0) fL MCH (25.0-35.0) pg MCHC (31.0-37.0) g/dL RDW (11.5-15.5) % Plt Count (150-450) k/uL MPV Neutrophils % % Lymphocytes % % Monocytes % % Eosinophils % % Basophils % % Neutrophils # (1.3-7.7) k/uL Lymphocytes # (1.0-4.8) k/uL Monocytes # (0-1.0) k/uL Eosinophils # (0-0.7) k/uL Basophils # (0-0.2) k/uL Manual Slide Review Hypochromasia PT (9.0-12.0) sec INR (<1.2) APTT (22.0-30.0) sec Fibrinogen (200-500) mg/dL Sample Site [facility] CPB CPB ABG pH 7.37 7.40 7.32 L (7.35-7.45) ABG pCO2 39 36 43 (35-45) mmHg ABG pO2 145 H 379 H 276 H (83-108) mmHg ABG HCO3 22 22 22 (21-25) mmol/L ABG Total CO2 23 23 24 (19-24) mmol/L ABG O2 Saturation 99.3 H 100.0 H 100.0 H (94-97) % ABG Base Excess -3.1 -2.4 -3.8 mmol/L ABG Hematocrit 31 L 25 L 25 L (34.0-46.0) % Tien Test ABG Sodium 142 140 142 (135-146) mmol/L ABG Potassium 3.5 4.0 4.0 (3.4-4.5) mmol/L ABG Ionized Calcium 4.6 4.4 L 4.4 L (4.5-5.3) mg/dL ABG Glucose 83 83 88 (75-99) mg/dL ABG Lactic Acid 0.7 0.8 0.9 (0.5-1.6) mmol/L Hemoglobin 10.2 L 8.2 L 8.3 L (13.0-17.5) gm/dL FiO2 % Sodium (137-145) mmol/L Potassium (3.5-5.1) mmol/L Chloride (98-107) mmol/L Carbon Dioxide (22-30) mmol/L Anion Gap mmol/L BUN (9-20) mg/dL Creatinine (0.66-1.25) mg/dL Est GFR (CKD-EPI)AfAm (>60 ml/min/1.73 sqM) Est GFR (CKD-EPI)NonAf (>60 ml/min/1.73 sqM) Glucose (74-99) mg/dL POC Glucose (mg/dL) (75-99) mg/dL POC Glu Director Marketing Analytics ID Calcium (8.4-10.2) mg/dL Ionized Calcium Kristi (4.5-5.3) mg/dL Magnesium (1.6-2.3) mg/dL Total Bilirubin (0.2-1.3) mg/dL AST (17-59) U/L ALT (4-49) U/L Alkaline Phosphatase (38-126) U/L Total Protein (6.3-8.2) g/dL Albumin (3.5-5.0) g/dL Arterial Blood Potassium 3.5 4.0 4.0 (3.4-4.5) mmol/L Arterial Blood Glucose 83 83 88 (75-99) mg/dL Hepatitis A IgM Ab (Nonreactive) Hep Bs Antigen (Nonreactive) Hep B Core IgM Ab (Nonreactive) Hep C IgG Ab (Nonreactive) 07/28/21 07/28/21 07/28/21 Range/Units 11:06 11:47 12:53 WBC (3.8-10.6) k/uL RBC (4.30-5.90) m/uL Hgb (13.0-17.5) gm/dL Hct (39.0-53.0) % MCV (80.0-100.0) fL MCH (25.0-35.0) pg MCHC (31.0-37.0) g/dL RDW (11.5-15.5) % Plt Count (150-450) k/uL MPV Neutrophils % % Lymphocytes % % Monocytes % % Eosinophils % % Basophils % % Neutrophils # (1.3-7.7) k/uL Lymphocytes # (1.0-4.8) k/uL Monocytes # (0-1.0) k/uL Eosinophils # (0-0.7) k/uL Basophils # (0-0.2) k/uL Manual Slide Review Hypochromasia PT (9.0-12.0) sec INR (<1.2) APTT (22.0-30.0) sec Fibrinogen (200-500) mg/dL Sample Site CPB CPB [facility] ABG pH 7.36 7.35 7.37 (7.35-7.45) ABG pCO2 40 39 41 (35-45) mmHg ABG pO2 372 H 370 H 97 (83-108) mmHg ABG HCO3 23 22 24 (21-25) mmol/L ABG Total CO2 24 23 25 H (19-24) mmol/L ABG O2 Saturation 100.0 H 100.0 H 97.8 H (94-97) % ABG Base Excess -2.7 -3.3 -1.2 mmol/L ABG Hematocrit 23 L 24 L 28 L (34.0-46.0) % Tien Test ABG Sodium 142 142 144 (135-146) mmol/L ABG Potassium 4.3 4.2 3.6 (3.4-4.5) mmol/L ABG Ionized Calcium 4.4 L 4.2 L 4.4 L (4.5-5.3) mg/dL ABG Glucose 89 89 87 (75-99) mg/dL ABG Lactic Acid 1.1 1.6 1.6 (0.5-1.6) mmol/L Hemoglobin 7.5 L 7.7 L 9.1 L (13.0-17.5) gm/dL FiO2 % Sodium (137-145) mmol/L Potassium (3.5-5.1) mmol/L Chloride (98-107) mmol/L Carbon Dioxide (22-30) mmol/L Anion Gap mmol/L BUN (9-20) mg/dL Creatinine (0.66-1.25) mg/dL Est GFR (CKD-EPI)AfAm (>60 ml/min/1.73 sqM) Est GFR (CKD-EPI)NonAf (>60 ml/min/1.73 sqM) Glucose (74-99) mg/dL POC Glucose (mg/dL) (75-99) mg/dL POC Glu Director Marketing Analytics ID Calcium (8.4-10.2) mg/dL Ionized Calcium Kristi (4.5-5.3) mg/dL Magnesium (1.6-2.3) mg/dL Total Bilirubin (0.2-1.3) mg/dL AST (17-59) U/L ALT (4-49) U/L Alkaline Phosphatase (38-126) U/L Total Protein (6.3-8.2) g/dL Albumin (3.5-5.0) g/dL Arterial Blood Potassium 4.3 4.2 3.6 (3.4-4.5) mmol/L Arterial Blood Glucose 89 89 87 (75-99) mg/dL Hepatitis A IgM Ab (Nonreactive) Hep Bs Antigen (Nonreactive) Hep B Core IgM Ab (Nonreactive) Hep C IgG Ab (Nonreactive) 07/28/21 07/28/21 07/28/21 Range/Units 14:04 14:04 14:04 WBC 9.2 (3.8-10.6) k/uL RBC 2.49 L (4.30-5.90) m/uL Hgb 7.9 L (13.0-17.5) gm/dL Hct 24.2 L (39.0-53.0) % MCV 97.3 (80.0-100.0) fL MCH 31.8 (25.0-35.0) pg MCHC 32.6 (31.0-37.0) g/dL RDW 14.9 (11.5-15.5) % Plt Count 103 L (150-450) k/uL MPV 9.1 Neutrophils % 88 % Lymphocytes % 5 % Monocytes % 6 % Eosinophils % 1 % Basophils % 0 % Neutrophils # 8.0 H (1.3-7.7) k/uL Lymphocytes # 0.5 L (1.0-4.8) k/uL Monocytes # 0.5 (0-1.0) k/uL Eosinophils # 0.0 (0-0.7) k/uL Basophils # 0.0 (0-0.2) k/uL Manual Slide Review Hypochromasia Slight PT 18.7 H (9.0-12.0) sec INR 1.9 H (<1.2) APTT 50.6 H (22.0-30.0) sec Fibrinogen 199 L (200-500) mg/dL Sample Site ABG pH (7.35-7.45) ABG pCO2 (35-45) mmHg ABG pO2 (83-108) mmHg ABG HCO3 (21-25) mmol/L ABG Total CO2 (19-24) mmol/L ABG O2 Saturation (94-97) % ABG Base Excess mmol/L ABG Hematocrit (34.0-46.0) % Tien Test ABG Sodium (135-146) mmol/L ABG Potassium (3.4-4.5) mmol/L ABG Ionized Calcium (4.5-5.3) mg/dL ABG Glucose (75-99) mg/dL ABG Lactic Acid (0.5-1.6) mmol/L Hemoglobin (13.0-17.5) gm/dL FiO2 % Sodium 142 (137-145) mmol/L Potassium 3.6 (3.5-5.1) mmol/L Chloride 111 H (98-107) mmol/L Carbon Dioxide 22 (22-30) mmol/L Anion Gap 9 mmol/L BUN 40 H (9-20) mg/dL Creatinine 1.25 (0.66-1.25) mg/dL Est GFR (CKD-EPI)AfAm 63 (>60 ml/min/1.73 sqM) Est GFR (CKD-EPI)NonAf 54 (>60 ml/min/1.73 sqM) Glucose 81 (74-99) mg/dL POC Glucose (mg/dL) (75-99) mg/dL POC Glu Director Marketing Analytics ID Calcium 8.0 L (8.4-10.2) mg/dL Ionized Calcium Kristi 5.0 (4.5-5.3) mg/dL Magnesium 4.2 H (1.6-2.3) mg/dL Total Bilirubin 0.9 (0.2-1.3) mg/dL AST 45 (17-59) U/L ALT 11 (4-49) U/L Alkaline Phosphatase 32 L (38-126) U/L Total Protein 4.5 L (6.3-8.2) g/dL Albumin 2.7 L (3.5-5.0) g/dL Arterial Blood Potassium (3.4-4.5) mmol/L Arterial Blood Glucose (75-99) mg/dL Hepatitis A IgM Ab (Nonreactive) Hep Bs Antigen (Nonreactive) Hep B Core IgM Ab (Nonreactive) Hep C IgG Ab (Nonreactive) 07/28/21 07/28/21 07/28/21 Range/Units 14:04 14:24 14:53 WBC (3.8-10.6) k/uL RBC (4.30-5.90) m/uL Hgb (13.0-17.5) gm/dL Hct (39.0-53.0) % MCV (80.0-100.0) fL MCH (25.0-35.0) pg MCHC (31.0-37.0) g/dL RDW (11.5-15.5) % Plt Count (150-450) k/uL MPV Neutrophils % % Lymphocytes % % Monocytes % % Eosinophils % % Basophils % % Neutrophils # (1.3-7.7) k/uL Lymphocytes # (1.0-4.8) k/uL Monocytes # (0-1.0) k/uL Eosinophils # (0-0.7) k/uL Basophils # (0-0.2) k/uL Manual Slide Review Hypochromasia PT (9.0-12.0) sec INR (<1.2) APTT (22.0-30.0) sec Fibrinogen (200-500) mg/dL Sample Site de [facility] ABG pH 7.34 L (7.35-7.45) ABG pCO2 43 (35-45) mmHg ABG pO2 136 H (83-108) mmHg ABG HCO3 23 (21-25) mmol/L ABG Total CO2 25 H (19-24) mmol/L ABG O2 Saturation 99.2 H (94-97) % ABG Base Excess -2.3 mmol/L ABG Hematocrit (34.0-46.0) % Tien Test no ABG Sodium (135-146) mmol/L ABG Potassium (3.4-4.5) mmol/L ABG Ionized Calcium (4.5-5.3) mg/dL ABG Glucose (75-99) mg/dL ABG Lactic Acid (0.5-1.6) mmol/L Hemoglobin (13.0-17.5) gm/dL FiO2 100 % Sodium (137-145) mmol/L Potassium (3.5-5.1) mmol/L Chloride (98-107) mmol/L Carbon Dioxide (22-30) mmol/L Anion Gap mmol/L BUN (9-20) mg/dL Creatinine (0.66-1.25) mg/dL Est GFR (CKD-EPI)AfAm (>60 ml/min/1.73 sqM) Est GFR (CKD-EPI)NonAf (>60 ml/min/1.73 sqM) Glucose (74-99) mg/dL POC Glucose (mg/dL) 91 92 (75-99) mg/dL POC Glu Director Marketing Analytics ID Madiha Alvarez Ivy Calcium (8.4-10.2) mg/dL Ionized Calcium Kristi (4.5-5.3) mg/dL Magnesium (1.6-2.3) mg/dL Total Bilirubin (0.2-1.3) mg/dL AST (17-59) U/L ALT (4-49) U/L Alkaline Phosphatase (38-126) U/L Total Protein (6.3-8.2) g/dL Albumin (3.5-5.0) g/dL Arterial Blood Potassium (3.4-4.5) mmol/L Arterial Blood Glucose (75-99) mg/dL Hepatitis A IgM Ab (Nonreactive) Hep Bs Antigen (Nonreactive) Hep B Core IgM Ab (Nonreactive) Hep C IgG Ab (Nonreactive) 07/28/21 07/28/21 07/28/21 Range/Units 15:30 16:11 17:12 WBC 7.3 (3.8-10.6) k/uL RBC 2.20 L (4.30-5.90) m/uL Hgb 6.9 L* (13.0-17.5) gm/dL Hct 21.4 L (39.0-53.0) % MCV 97.1 (80.0-100.0) fL MCH 31.5 (25.0-35.0) pg MCHC 32.4 (31.0-37.0) g/dL RDW 15.1 (11.5-15.5) % Plt Count 70 L (150-450) k/uL MPV 10.1 Neutrophils % 85 % Lymphocytes % 7 % Monocytes % 6 % Eosinophils % 0 % Basophils % 0 % Neutrophils # 6.1 (1.3-7.7) k/uL Lymphocytes # 0.5 L (1.0-4.8) k/uL Monocytes # 0.5 (0-1.0) k/uL Eosinophils # 0.0 (0-0.7) k/uL Basophils # 0.0 (0-0.2) k/uL Manual Slide Review Performed Hypochromasia Slight PT (9.0-12.0) sec INR (<1.2) APTT (22.0-30.0) sec Fibrinogen (200-500) mg/dL Sample Site ABG pH (7.35-7.45) ABG pCO2 (35-45) mmHg ABG pO2 (83-108) mmHg ABG HCO3 (21-25) mmol/L ABG Total CO2 (19-24) mmol/L ABG O2 Saturation (94-97) % ABG Base Excess mmol/L ABG Hematocrit (34.0-46.0) % Tien Test ABG Sodium (135-146) mmol/L ABG Potassium (3.4-4.5) mmol/L ABG Ionized Calcium (4.5-5.3) mg/dL ABG Glucose (75-99) mg/dL ABG Lactic Acid (0.5-1.6) mmol/L Hemoglobin (13.0-17.5) gm/dL FiO2 % Sodium (137-145) mmol/L Potassium (3.5-5.1) mmol/L Chloride (98-107) mmol/L Carbon Dioxide (22-30) mmol/L Anion Gap mmol/L BUN (9-20) mg/dL Creatinine (0.66-1.25) mg/dL Est GFR (CKD-EPI)AfAm (>60 ml/min/1.73 sqM) Est GFR (CKD-EPI)NonAf (>60 ml/min/1.73 sqM) Glucose (74-99) mg/dL POC Glucose (mg/dL) 98 104 H (75-99) mg/dL POC Glu Director Marketing Analytics ID Luigizo, Ivy Monzo, Ivy Calcium (8.4-10.2) mg/dL Ionized Calcium Kristi (4.5-5.3) mg/dL Magnesium (1.6-2.3) mg/dL Total Bilirubin (0.2-1.3) mg/dL AST (17-59) U/L ALT (4-49) U/L Alkaline Phosphatase (38-126) U/L Total Protein (6.3-8.2) g/dL Albumin (3.5-5.0) g/dL Arterial Blood Potassium (3.4-4.5) mmol/L Arterial Blood Glucose (75-99) mg/dL Hepatitis A IgM Ab (Nonreactive) Hep Bs Antigen (Nonreactive) Hep B Core IgM Ab (Nonreactive) Hep C IgG Ab (Nonreactive) 07/28/21 07/28/21 07/28/21 Range/Units 18:05 18:07 18:16 WBC (3.8-10.6) k/uL RBC (4.30-5.90) m/uL Hgb (13.0-17.5) gm/dL Hct (39.0-53.0) % MCV (80.0-100.0) fL MCH (25.0-35.0) pg MCHC (31.0-37.0) g/dL RDW (11.5-15.5) % Plt Count (150-450) k/uL MPV Neutrophils % % Lymphocytes % % Monocytes % % Eosinophils % % Basophils % % Neutrophils # (1.3-7.7) k/uL Lymphocytes # (1.0-4.8) k/uL Monocytes # (0-1.0) k/uL Eosinophils # (0-0.7) k/uL Basophils # (0-0.2) k/uL Manual Slide Review Hypochromasia PT (9.0-12.0) sec INR (<1.2) APTT (22.0-30.0) sec Fibrinogen (200-500) mg/dL Sample Site rafaela turner ABG pH 7.30 L 7.34 L (7.35-7.45) ABG pCO2 48 H 43 (35-45) mmHg ABG pO2 73 L 81 L (83-108) mmHg ABG HCO3 23 23 (21-25) mmol/L ABG Total CO2 25 H 24 (19-24) mmol/L ABG O2 Saturation 94.1 96.0 (94-97) % ABG Base Excess -3.2 -3.0 mmol/L ABG Hematocrit (34.0-46.0) % Tien Test Yes Yes ABG Sodium (135-146) mmol/L ABG Potassium (3.4-4.5) mmol/L ABG Ionized Calcium (4.5-5.3) mg/dL ABG Glucose (75-99) mg/dL ABG Lactic Acid (0.5-1.6) mmol/L Hemoglobin (13.0-17.5) gm/dL FiO2 50 80 % Sodium (137-145) mmol/L Potassium (3.5-5.1) mmol/L Chloride (98-107) mmol/L Carbon Dioxide (22-30) mmol/L Anion Gap mmol/L BUN (9-20) mg/dL Creatinine (0.66-1.25) mg/dL Est GFR (CKD-EPI)AfAm (>60 ml/min/1.73 sqM) Est GFR (CKD-EPI)NonAf (>60 ml/min/1.73 sqM) Glucose (74-99) mg/dL POC Glucose (mg/dL) 111 H (75-99) mg/dL POC Glu Director Marketing Analytics ID Ivy Davalos Calcium (8.4-10.2) mg/dL Ionized Calcium Kristi (4.5-5.3) mg/dL Magnesium (1.6-2.3) mg/dL Total Bilirubin (0.2-1.3) mg/dL AST (17-59) U/L ALT (4-49) U/L Alkaline Phosphatase (38-126) U/L Total Protein (6.3-8.2) g/dL Albumin (3.5-5.0) g/dL Arterial Blood Potassium (3.4-4.5) mmol/L Arterial Blood Glucose (75-99) mg/dL Hepatitis A IgM Ab (Nonreactive) Hep Bs Antigen (Nonreactive) Hep B Core IgM Ab (Nonreactive) Hep C IgG Ab (Nonreactive) 07/28/21 07/28/21 07/28/21 Range/Units 19:01 19:49 19:49 WBC 8.4 (3.8-10.6) k/uL RBC 2.64 L (4.30-5.90) m/uL Hgb 8.1 L (13.0-17.5) gm/dL Hct 25.5 L (39.0-53.0) % MCV 96.5 (80.0-100.0) fL MCH 30.6 (25.0-35.0) pg MCHC 31.7 (31.0-37.0) g/dL RDW 14.9 (11.5-15.5) % Plt Count 85 L (150-450) k/uL MPV 9.5 Neutrophils % 86 % Lymphocytes % 4 % Monocytes % 8 % Eosinophils % 1 % Basophils % 0 % Neutrophils # 7.2 (1.3-7.7) k/uL Lymphocytes # 0.4 L (1.0-4.8) k/uL Monocytes # 0.7 (0-1.0) k/uL Eosinophils # 0.0 (0-0.7) k/uL Basophils # 0.0 (0-0.2) k/uL Manual Slide Review Hypochromasia Slight PT (9.0-12.0) sec INR (<1.2) APTT (22.0-30.0) sec Fibrinogen 200 (200-500) mg/dL Sample Site ABG pH (7.35-7.45) ABG pCO2 (35-45) mmHg ABG pO2 (83-108) mmHg ABG HCO3 (21-25) mmol/L ABG Total CO2 (19-24) mmol/L ABG O2 Saturation (94-97) % ABG Base Excess mmol/L ABG Hematocrit (34.0-46.0) % Tien Test ABG Sodium (135-146) mmol/L ABG Potassium (3.4-4.5) mmol/L ABG Ionized Calcium (4.5-5.3) mg/dL ABG Glucose (75-99) mg/dL ABG Lactic Acid (0.5-1.6) mmol/L Hemoglobin (13.0-17.5) gm/dL FiO2 % Sodium (137-145) mmol/L Potassium (3.5-5.1) mmol/L Chloride (98-107) mmol/L Carbon Dioxide (22-30) mmol/L Anion Gap mmol/L BUN (9-20) mg/dL Creatinine (0.66-1.25) mg/dL Est GFR (CKD-EPI)AfAm (>60 ml/min/1.73 sqM) Est GFR (CKD-EPI)NonAf (>60 ml/min/1.73 sqM) Glucose (74-99) mg/dL POC Glucose (mg/dL) 114 H (75-99) mg/dL POC Glu Director Marketing Analytics ID Ivy Davalos Calcium (8.4-10.2) mg/dL Ionized Calcium Kristi (4.5-5.3) mg/dL Magnesium (1.6-2.3) mg/dL Total Bilirubin (0.2-1.3) mg/dL AST (17-59) U/L ALT (4-49) U/L Alkaline Phosphatase (38-126) U/L Total Protein (6.3-8.2) g/dL Albumin (3.5-5.0) g/dL Arterial Blood Potassium (3.4-4.5) mmol/L Arterial Blood Glucose (75-99) mg/dL Hepatitis A IgM Ab (Nonreactive) Hep Bs Antigen (Nonreactive) Hep B Core IgM Ab (Nonreactive) Hep C IgG Ab (Nonreactive) 07/28/21 07/28/21 07/28/21 Range/Units 20:00 20:55 22:04 WBC (3.8-10.6) k/uL RBC (4.30-5.90) m/uL Hgb (13.0-17.5) gm/dL Hct (39.0-53.0) % MCV (80.0-100.0) fL MCH (25.0-35.0) pg MCHC (31.0-37.0) g/dL RDW (11.5-15.5) % Plt Count (150-450) k/uL MPV Neutrophils % % Lymphocytes % % Monocytes % % Eosinophils % % Basophils % % Neutrophils # (1.3-7.7) k/uL Lymphocytes # (1.0-4.8) k/uL Monocytes # (0-1.0) k/uL Eosinophils # (0-0.7) k/uL Basophils # (0-0.2) k/uL Manual Slide Review Hypochromasia PT (9.0-12.0) sec INR (<1.2) APTT (22.0-30.0) sec Fibrinogen (200-500) mg/dL Sample Site ABG pH (7.35-7.45) ABG pCO2 (35-45) mmHg ABG pO2 (83-108) mmHg ABG HCO3 (21-25) mmol/L ABG Total CO2 (19-24) mmol/L ABG O2 Saturation (94-97) % ABG Base Excess mmol/L ABG Hematocrit (34.0-46.0) % Tien Test ABG Sodium (135-146) mmol/L ABG Potassium (3.4-4.5) mmol/L ABG Ionized Calcium (4.5-5.3) mg/dL ABG Glucose (75-99) mg/dL ABG Lactic Acid (0.5-1.6) mmol/L Hemoglobin (13.0-17.5) gm/dL FiO2 % Sodium (137-145) mmol/L Potassium (3.5-5.1) mmol/L Chloride (98-107) mmol/L Carbon Dioxide (22-30) mmol/L Anion Gap mmol/L BUN (9-20) mg/dL Creatinine (0.66-1.25) mg/dL Est GFR (CKD-EPI)AfAm (>60 ml/min/1.73 sqM) Est GFR (CKD-EPI)NonAf (>60 ml/min/1.73 sqM) Glucose (74-99) mg/dL POC Glucose (mg/dL) 117 H 115 H 128 H (75-99) mg/dL POC Glu Director Marketing Analytics ID Yuan Deyavan, Yuan Dey, Yuan Calcium (8.4-10.2) mg/dL Ionized Calcium Kristi (4.5-5.3) mg/dL Magnesium (1.6-2.3) mg/dL Total Bilirubin (0.2-1.3) mg/dL AST (17-59) U/L ALT (4-49) U/L Alkaline Phosphatase (38-126) U/L Total Protein (6.3-8.2) g/dL Albumin (3.5-5.0) g/dL Arterial Blood Potassium (3.4-4.5) mmol/L Arterial Blood Glucose (75-99) mg/dL Hepatitis A IgM Ab (Nonreactive) Hep Bs Antigen (Nonreactive) Hep B Core IgM Ab (Nonreactive) Hep C IgG Ab (Nonreactive) 07/28/21 07/28/21 07/28/21 Range/Units 22:45 22:58 23:58 WBC (3.8-10.6) k/uL RBC (4.30-5.90) m/uL Hgb (13.0-17.5) gm/dL Hct (39.0-53.0) % MCV (80.0-100.0) fL MCH (25.0-35.0) pg MCHC (31.0-37.0) g/dL RDW (11.5-15.5) % Plt Count (150-450) k/uL MPV Neutrophils % % Lymphocytes % % Monocytes % % Eosinophils % % Basophils % % Neutrophils # (1.3-7.7) k/uL Lymphocytes # (1.0-4.8) k/uL Monocytes # (0-1.0) k/uL Eosinophils # (0-0.7) k/uL Basophils # (0-0.2) k/uL Manual Slide Review Hypochromasia PT (9.0-12.0) sec INR (<1.2) APTT (22.0-30.0) sec Fibrinogen (200-500) mg/dL Sample Site ABG pH (7.35-7.45) ABG pCO2 (35-45) mmHg ABG pO2 (83-108) mmHg ABG HCO3 (21-25) mmol/L ABG Total CO2 (19-24) mmol/L ABG O2 Saturation (94-97) % ABG Base Excess mmol/L ABG Hematocrit (34.0-46.0) % Tien Test ABG Sodium (135-146) mmol/L ABG Potassium (3.4-4.5) mmol/L ABG Ionized Calcium (4.5-5.3) mg/dL ABG Glucose (75-99) mg/dL ABG Lactic Acid (0.5-1.6) mmol/L Hemoglobin (13.0-17.5) gm/dL FiO2 % Sodium (137-145) mmol/L Potassium 4.1 (3.5-5.1) mmol/L Chloride (98-107) mmol/L Carbon Dioxide (22-30) mmol/L Anion Gap mmol/L BUN (9-20) mg/dL Creatinine (0.66-1.25) mg/dL Est GFR (CKD-EPI)AfAm (>60 ml/min/1.73 sqM) Est GFR (CKD-EPI)NonAf (>60 ml/min/1.73 sqM) Glucose (74-99) mg/dL POC Glucose (mg/dL) 123 H 131 H (75-99) mg/dL POC Glu Director Marketing Analytics ID Newhall, Yuan Newhall, Yuan Calcium (8.4-10.2) mg/dL Ionized Calcium Kristi (4.5-5.3) mg/dL Magnesium (1.6-2.3) mg/dL Total Bilirubin (0.2-1.3) mg/dL AST (17-59) U/L ALT (4-49) U/L Alkaline Phosphatase (38-126) U/L Total Protein (6.3-8.2) g/dL Albumin (3.5-5.0) g/dL Arterial Blood Potassium (3.4-4.5) mmol/L Arterial Blood Glucose (75-99) mg/dL Hepatitis A IgM Ab (Nonreactive) Hep Bs Antigen (Nonreactive) Hep B Core IgM Ab (Nonreactive) Hep C IgG Ab (Nonreactive) 07/29/21 07/29/21 07/29/21 Range/Units 00:57 01:55 02:57 WBC (3.8-10.6) k/uL RBC (4.30-5.90) m/uL Hgb (13.0-17.5) gm/dL Hct (39.0-53.0) % MCV (80.0-100.0) fL MCH (25.0-35.0) pg MCHC (31.0-37.0) g/dL RDW (11.5-15.5) % Plt Count (150-450) k/uL MPV Neutrophils % % Lymphocytes % % Monocytes % % Eosinophils % % Basophils % % Neutrophils # (1.3-7.7) k/uL Lymphocytes # (1.0-4.8) k/uL Monocytes # (0-1.0) k/uL Eosinophils # (0-0.7) k/uL Basophils # (0-0.2) k/uL Manual Slide Review Hypochromasia PT (9.0-12.0) sec INR (<1.2) APTT (22.0-30.0) sec Fibrinogen (200-500) mg/dL Sample Site ABG pH (7.35-7.45) ABG pCO2 (35-45) mmHg ABG pO2 (83-108) mmHg ABG HCO3 (21-25) mmol/L ABG Total CO2 (19-24) mmol/L ABG O2 Saturation (94-97) % ABG Base Excess mmol/L ABG Hematocrit (34.0-46.0) % Tien Test ABG Sodium (135-146) mmol/L ABG Potassium (3.4-4.5) mmol/L ABG Ionized Calcium (4.5-5.3) mg/dL ABG Glucose (75-99) mg/dL ABG Lactic Acid (0.5-1.6) mmol/L Hemoglobin (13.0-17.5) gm/dL FiO2 % Sodium (137-145) mmol/L Potassium (3.5-5.1) mmol/L Chloride (98-107) mmol/L Carbon Dioxide (22-30) mmol/L Anion Gap mmol/L BUN (9-20) mg/dL Creatinine (0.66-1.25) mg/dL Est GFR (CKD-EPI)AfAm (>60 ml/min/1.73 sqM) Est GFR (CKD-EPI)NonAf (>60 ml/min/1.73 sqM) Glucose (74-99) mg/dL POC Glucose (mg/dL) 110 H 136 H 123 H (75-99) mg/dL POC Glu Director Marketing Analytics ID Yuan Dey Tyler Delavan, Tyler Calcium (8.4-10.2) mg/dL Ionized Calcium Kristi (4.5-5.3) mg/dL Magnesium (1.6-2.3) mg/dL Total Bilirubin (0.2-1.3) mg/dL AST (17-59) U/L ALT (4-49) U/L Alkaline Phosphatase (38-126) U/L Total Protein (6.3-8.2) g/dL Albumin (3.5-5.0) g/dL Arterial Blood Potassium (3.4-4.5) mmol/L Arterial Blood Glucose (75-99) mg/dL Hepatitis A IgM Ab (Nonreactive) Hep Bs Antigen (Nonreactive) Hep B Core IgM Ab (Nonreactive) Hep C IgG Ab (Nonreactive) 07/29/21 07/29/21 07/29/21 Range/Units 04:17 04:26 04:26 WBC 9.5 (3.8-10.6) k/uL RBC 2.48 L (4.30-5.90) m/uL Hgb 7.5 L (13.0-17.5) gm/dL Hct 23.9 L (39.0-53.0) % MCV 96.3 (80.0-100.0) fL MCH 30.2 (25.0-35.0) pg MCHC 31.3 (31.0-37.0) g/dL RDW 15.3 (11.5-15.5) % Plt Count 80 L (150-450) k/uL MPV 10.0 Neutrophils % 87 % Lymphocytes % 3 % Monocytes % 8 % Eosinophils % 0 % Basophils % 0 % Neutrophils # 8.3 H (1.3-7.7) k/uL Lymphocytes # 0.3 L (1.0-4.8) k/uL Monocytes # 0.7 (0-1.0) k/uL Eosinophils # 0.0 (0-0.7) k/uL Basophils # 0.0 (0-0.2) k/uL Manual Slide Review Hypochromasia Slight PT (9.0-12.0) sec INR (<1.2) APTT (22.0-30.0) sec Fibrinogen (200-500) mg/dL Sample Site ABG pH (7.35-7.45) ABG pCO2 (35-45) mmHg ABG pO2 (83-108) mmHg ABG HCO3 (21-25) mmol/L ABG Total CO2 (19-24) mmol/L ABG O2 Saturation (94-97) % ABG Base Excess mmol/L ABG Hematocrit (34.0-46.0) % Tien Test ABG Sodium (135-146) mmol/L ABG Potassium (3.4-4.5) mmol/L ABG Ionized Calcium (4.5-5.3) mg/dL ABG Glucose (75-99) mg/dL ABG Lactic Acid (0.5-1.6) mmol/L Hemoglobin (13.0-17.5) gm/dL FiO2 % Sodium 144 (137-145) mmol/L Potassium 4.2 (3.5-5.1) mmol/L Chloride 113 H (98-107) mmol/L Carbon Dioxide 22 (22-30) mmol/L Anion Gap 9 mmol/L BUN 37 H (9-20) mg/dL Creatinine 1.46 H (0.66-1.25) mg/dL Est GFR (CKD-EPI)AfAm 51 (>60 ml/min/1.73 sqM) Est GFR (CKD-EPI)NonAf 45 (>60 ml/min/1.73 sqM) Glucose 122 H (74-99) mg/dL POC Glucose (mg/dL) 123 H (75-99) mg/dL POC Glu Director Marketing Analytics ID Yuan Dey Calcium 7.7 L (8.4-10.2) mg/dL Ionized Calcium Kristi 4.9 (4.5-5.3) mg/dL Magnesium 3.5 H (1.6-2.3) mg/dL Total Bilirubin 0.9 (0.2-1.3) mg/dL AST 74 H (17-59) U/L ALT 12 (4-49) U/L Alkaline Phosphatase 37 L (38-126) U/L Total Protein 5.0 L (6.3-8.2) g/dL Albumin 3.2 L (3.5-5.0) g/dL Arterial Blood Potassium (3.4-4.5) mmol/L Arterial Blood Glucose (75-99) mg/dL Hepatitis A IgM Ab (Nonreactive) Hep Bs Antigen (Nonreactive) Hep B Core IgM Ab (Nonreactive) Hep C IgG Ab (Nonreactive) 07/29/21 07/29/21 07/29/21 Range/Units 05:09 05:57 07:02 WBC (3.8-10.6) k/uL RBC (4.30-5.90) m/uL Hgb (13.0-17.5) gm/dL Hct (39.0-53.0) % MCV (80.0-100.0) fL MCH (25.0-35.0) pg MCHC (31.0-37.0) g/dL RDW (11.5-15.5) % Plt Count (150-450) k/uL MPV Neutrophils % % Lymphocytes % % Monocytes % % Eosinophils % % Basophils % % Neutrophils # (1.3-7.7) k/uL Lymphocytes # (1.0-4.8) k/uL Monocytes # (0-1.0) k/uL Eosinophils # (0-0.7) k/uL Basophils # (0-0.2) k/uL Manual Slide Review Hypochromasia PT (9.0-12.0) sec INR (<1.2) APTT (22.0-30.0) sec Fibrinogen (200-500) mg/dL Sample Site ABG pH (7.35-7.45) ABG pCO2 (35-45) mmHg ABG pO2 (83-108) mmHg ABG HCO3 (21-25) mmol/L ABG Total CO2 (19-24) mmol/L ABG O2 Saturation (94-97) % ABG Base Excess mmol/L ABG Hematocrit (34.0-46.0) % Tien Test ABG Sodium (135-146) mmol/L ABG Potassium (3.4-4.5) mmol/L ABG Ionized Calcium (4.5-5.3) mg/dL ABG Glucose (75-99) mg/dL ABG Lactic Acid (0.5-1.6) mmol/L Hemoglobin (13.0-17.5) gm/dL FiO2 % Sodium (137-145) mmol/L Potassium (3.5-5.1) mmol/L Chloride (98-107) mmol/L Carbon Dioxide (22-30) mmol/L Anion Gap mmol/L BUN (9-20) mg/dL Creatinine (0.66-1.25) mg/dL Est GFR (CKD-EPI)AfAm (>60 ml/min/1.73 sqM) Est GFR (CKD-EPI)NonAf (>60 ml/min/1.73 sqM) Glucose (74-99) mg/dL POC Glucose (mg/dL) 107 H 132 H 130 H (75-99) mg/dL POC Glu Director Marketing Analytics ID Newhall, Yuan Cannonavan, Yuan Parekhn, Yuan Calcium (8.4-10.2) mg/dL Ionized Calcium Kristi (4.5-5.3) mg/dL Magnesium (1.6-2.3) mg/dL Total Bilirubin (0.2-1.3) mg/dL AST (17-59) U/L ALT (4-49) U/L Alkaline Phosphatase (38-126) U/L Total Protein (6.3-8.2) g/dL Albumin (3.5-5.0) g/dL Arterial Blood Potassium (3.4-4.5) mmol/L Arterial Blood Glucose (75-99) mg/dL Hepatitis A IgM Ab (Nonreactive) Hep Bs Antigen (Nonreactive) Hep B Core IgM Ab (Nonreactive) Hep C IgG Ab (Nonreactive) 07/29/21 Range/Units 07:10 WBC (3.8-10.6) k/uL RBC (4.30-5.90) m/uL Hgb (13.0-17.5) gm/dL Hct (39.0-53.0) % MCV (80.0-100.0) fL MCH (25.0-35.0) pg MCHC (31.0-37.0) g/dL RDW (11.5-15.5) % Plt Count (150-450) k/uL MPV Neutrophils % % Lymphocytes % % Monocytes % % Eosinophils % % Basophils % % Neutrophils # (1.3-7.7) k/uL Lymphocytes # (1.0-4.8) k/uL Monocytes # (0-1.0) k/uL Eosinophils # (0-0.7) k/uL Basophils # (0-0.2) k/uL Manual Slide Review Hypochromasia PT 27.1 H (9.0-12.0) sec INR 2.7 H (<1.2) APTT 41.8 H (22.0-30.0) sec Fibrinogen (200-500) mg/dL Sample Site ABG pH (7.35-7.45) ABG pCO2 (35-45) mmHg ABG pO2 (83-108) mmHg ABG HCO3 (21-25) mmol/L ABG Total CO2 (19-24) mmol/L ABG O2 Saturation (94-97) % ABG Base Excess mmol/L ABG Hematocrit (34.0-46.0) % Tien Test ABG Sodium (135-146) mmol/L ABG Potassium (3.4-4.5) mmol/L ABG Ionized Calcium (4.5-5.3) mg/dL ABG Glucose (75-99) mg/dL ABG Lactic Acid (0.5-1.6) mmol/L Hemoglobin (13.0-17.5) gm/dL FiO2 % Sodium (137-145) mmol/L Potassium (3.5-5.1) mmol/L Chloride (98-107) mmol/L Carbon Dioxide (22-30) mmol/L Anion Gap mmol/L BUN (9-20) mg/dL Creatinine (0.66-1.25) mg/dL Est GFR (CKD-EPI)AfAm (>60 ml/min/1.73 sqM) Est GFR (CKD-EPI)NonAf (>60 ml/min/1.73 sqM) Glucose (74-99) mg/dL POC Glucose (mg/dL) (75-99) mg/dL POC Glu Director Marketing Analytics ID Calcium (8.4-10.2) mg/dL Ionized Calcium Kristi (4.5-5.3) mg/dL Magnesium (1.6-2.3) mg/dL Total Bilirubin (0.2-1.3) mg/dL AST (17-59) U/L ALT (4-49) U/L Alkaline Phosphatase (38-126) U/L Total Protein (6.3-8.2) g/dL Albumin (3.5-5.0) g/dL Arterial Blood Potassium (3.4-4.5) mmol/L Arterial Blood Glucose (75-99) mg/dL Hepatitis A IgM Ab (Nonreactive) Hep Bs Antigen (Nonreactive) Hep B Core IgM Ab (Nonreactive) Hep C IgG Ab (Nonreactive) Coagulation 07/28/21 07/29/21 Range/Units 14:04 07:10 PT 18.7 H 27.1 H (9.0-12.0) sec APTT 50.6 H 41.8 H (22.0-30.0) sec CBC 07/28/21 07/28/21 07/28/21 Range/Units 14:04 15:30 19:49 WBC 9.2 7.3 8.4 (3.8-10.6) k/uL RBC 2.49 L 2.20 L 2.64 L (4.30-5.90) m/uL Hgb 7.9 L 6.9 L* 8.1 L (13.0-17.5) gm/dL Hct 24.2 L 21.4 L 25.5 L (39.0-53.0) % Plt Count 103 L 70 L 85 L (150-450) k/uL 07/29/21 Range/Units 04:26 WBC 9.5 (3.8-10.6) k/uL RBC 2.48 L (4.30-5.90) m/uL Hgb 7.5 L (13.0-17.5) gm/dL Hct 23.9 L (39.0-53.0) % Plt Count 80 L (150-450) k/uL Comprehensive Metabolic Panel 07/28/21 07/28/21 07/29/21 Range/Units 14:04 22:45 04:26 Sodium 142 144 (137-145) mmol/L Potassium 3.6 4.1 4.2 (3.5-5.1) mmol/L Chloride 111 H 113 H (98-107) mmol/L Carbon Dioxide 22 22 (22-30) mmol/L BUN 40 H 37 H (9-20) mg/dL Creatinine 1.25 1.46 H (0.66-1.25) mg/dL Glucose 81 122 H (74-99) mg/dL Calcium 8.0 L 7.7 L (8.4-10.2) mg/dL AST 45 74 H (17-59) U/L ALT 11 12 (4-49) U/L Alkaline Phosphatase 32 L 37 L (38-126) U/L Total Protein 4.5 L 5.0 L (6.3-8.2) g/dL Albumin 2.7 L 3.2 L (3.5-5.0) g/dL Current Medications Generic Name Dose Route Start Last Admin Trade Name Freq PRN Reason Stop Dose Admin Acetaminophen 650 mg 07/29/21 07:39 Acetaminophen Tab 325 Mg Tab PO Q4HR PRN Fever and/ or Pain Hydrocodone Bitart/Acetaminophen 1 each 07/29/21 00:23 Hydrocodone/Apap 5-325mg 1 Each Tab PO Q4HR PRN Moderate Pain Albuterol/Ipratropium 3 ml 07/28/21 13:50 Ipratropium-Albuterol 3 Ml Neb INHALATION RT-Q2H PRN Shortness Of Breath Or Wheezing Albuterol/Ipratropium 3 ml 07/28/21 20:00 07/28/21 20:30 Ipratropium-Albuterol 3 Ml Neb INHALATION Not Given RT-QID [facility] Allopurinol 150 mg 07/29/21 09:00 Allopurinol 100 Mg Tab PO QAM [facility] Ascorbic Acid 1,000 mg 07/29/21 09:00 Ascorbic Acid 500 Mg Tab PO QAM [facility] Aspirin 81 mg 07/29/21 09:00 Aspirin 81 Mg PO DAILY [facility] Atorvastatin Calcium 40 mg 07/28/21 21:00 07/28/21 20:23 Atorvastatin 40 Mg Tab PO 40 mg HS [facility] Administration Benzocaine/Menthol 1 each 07/28/21 13:50 Benzocaine/Menthol Lozeng 1 Each Lozenge MUCOUS MEM Q2H PRN Sore Throat Bisacodyl 10 mg 07/29/21 09:00 Bisacodyl 10 Mg Supp RECTAL DAILY PRN Constipation Calcium Acetate 667 mg 07/28/21 21:00 07/28/21 20:23 Calcium Acetate 667 Mg Tab PO 667 mg HS [facility] Administration Ergocalciferol 1,250 mcg 08/27/21 09:00 Ergocalciferol 1,250 Mcg (50,000 Iu) Capsule PO Q30D [facility] Ferrous Sulfate 325 mg 07/29/21 09:00 Ferrous Sulfate 325 Mg Tab PO QAM [facility] Folic Acid 0.5 mg 07/29/21 09:00 Folic Acid 1 Mg Tab PO QAM [facility] Heparin Sodium (Porcine) 5,000 unit 07/28/21 16:00 07/29/21 07:58 Heparin Sodium,Porcine/Pf 5,000 Unit/0.5 Ml Syringe SQ Not Given Q8HR PHIL Norepinephrine Bitartrate 4 mg 254 mls @ 14.116 mls/hr 07/28/21 13:30 07/29/21 05:32 / Sodium Chloride IV 0.08 mcg/kg/min .Q18H PHIL 22.586 mls/hr Titration Protocol 0.05 MCG/KG/MIN Albumin Human 250 ml/ IV 250 mls @ 250 mls/hr 07/28/21 13:50 07/29/21 05:22 Solution IVPB 07/30/21 13:51 250 mls/hr Q1HR PRN Administration For Volume Protocol Lactated Ringer's 1,000 mls @ 50 mls/hr 07/28/21 13:50 07/28/21 14:02 Lactated Ringers IV 50 mls/hr .Q20H PHIL Administration Cefazolin Sodium 2 gm/ Sodium 50 mls @ 100 mls/hr 07/28/21 16:00 07/29/21 00:19 Chloride IVPB 07/29/21 08:29 100 mls/hr Q8HR PHIL Administration Protocol Insulin Human Regular 100 unit 101 mls @ 0 mls/hr 07/28/21 13:50 07/29/21 05:58 / Sodium Chloride IV 1 units/hr .Q0M PHIL 1.01 mls/hr Titration Protocol Per Protocol Dopamine HCl/Dextrose 800 mg/ 250 mls @ 4.168 mls/hr 07/28/21 15:15 07/28/21 22:10 IV Solution IV 3 mcg/kg/min .Q24H PHIL 4.168 mls/hr Titration Protocol 3 MCG/KG/MIN Magnesium Hydroxide 2,400 mg 07/29/21 09:00 Magnesium Hydroxide 2,400 Mg/10 Ml Cup PO BID PRN Constipation Metoclopramide HCl 10 mg 07/28/21 13:50 Metoclopramide 5 Mg/Ml 2 Ml Vial IVP Q4H PRN Nausea And Vomiting Miscellaneous Information 1 each 07/28/21 13:50 Potassium Replacement Protocol 1 Each [facility] [place] DA[place] PRN Per Protocol Protocol Miscellaneous Information 1 each 07/28/21 13:50 Magnesium Replacement Protocol 1 Each [facility] [place] DAILY PRN Per Protocol Protocol Miscellaneous Information 1 each 07/28/21 13:50 Phosphorus Replacement Protoco 1 Each [facility] [place] DAILY PRN Per Protocol Protocol Mupirocin 1 applic 07/28/21 21:00 07/28/21 20:25 Mupirocin 2% Oint 22 Gm Tube NASAL 1 applic BID PHIL Administration Ondansetron HCl 4 mg 07/28/21 13:50 07/29/21 02:51 Ondansetron 4 Mg/2 Ml Vial IVP 4 mg Q6HR PRN Administration Nausea And Vomiting Pantoprazole Sodium 40 mg 07/29/21 09:00 Pantoprazole 40 Mg/10 Ml Vial IVP 07/29/21 10:00 DAILY PHIL Pantoprazole Sodium 40 mg 07/30/21 07:30 Pantoprazole 40 Mg Tablet PO [id number] PHIL Senna/Docusate Sodium 2 each 07/29/21 21:00 Sennosides-Docusate Sodium 1 Each Tab PO HS PHIL Sodium Chloride 10 ml 07/28/21 21:00 07/28/21 20:24 Sodium Chloride 0.9% Flush 10 Ml Syringe IV 10 ml BID PHIL Administration Intake and Output 07/28/21 07/29/21 07/29/21 22:59 06:59 14:59 Intake Total 6013.559 5892.241 89 Output Total 1265 780 70 Balance 297.829 662.241 19 Intake: IV 1089 1247 89 Albumin Human 5% 250 ml 500 500 In Empty Bag 1 bag @ 250 mls/hr IVPB Q1HR PRN Rx#: [id number] CO/CI 170 260 30 Lactated Ringers 1,000 ml 350 400 50 @ 50 mls/hr IV .Q20H PHIL Rx#:[id number] Pressure Bags 69 87 9 Intake, IV Titration 163.829 195.241 Amount DOPamine DRIP 800 mg In 25.101 Dextrose/Water 1 250ml. bag @ 3 MCG/KG/MIN 4.168 mls/hr IV .Q24H PHIL Rx#: [id number] Insulin Regular 100 unit 3.308 In Sodium Chloride 0.9% 100 ml @ Per Protocol IV .Q0M PHIL Rx#:[id number] Norepinephrine 4 mg In 118.907 191.933 Sodium Chloride 0.9% 250 ml @ 0.05 MCG/KG/MIN 14. 116 mls/hr IV .Q18H PHIL Rx#:[id number] propofoL 1,000 mg In 19.821 Empty Bag 1 bag @ Titrate IV .Q0M PHIL Rx#: [id number] Blood Product 310 Rc As-1 Unit 310 [id number] Output: Drainage [address] x2 510 190 30 Urine 590 370 30 Other: Voiding Method Indwelling Catheter Indwelling Catheter Weight 80 kg 07/29/21 04:26 07/29/21 04:26
[2021-07-29] MEDS: IPRATROPIUM-ALBUTEROL 3 ML NEB INHALATION SCH ×4 (08:19→19:12)
[2021-07-29 08:20] LABS: Glucose,Whole Blood 121 mg/dL (75-99)
--- NOTE | 2021-07-29 08:27 | P.PN ---
Subjective Progress Note Date: 07/29/21 Principal diagnosis: Mitral valve regurgitation, tricuspid valve regurgitation, coronary artery disease. Previous medical history of CAD with previous cardial infarction and PCI, hypertension, chronic atrial fibrillation on Coumadin for anticoagulation status post cardioversion, sick sinus syndrome [facility] permanent pacemaker placement in 2017, chronic systolic heart failure, atrial septal defect status post closure, previous MitraClip in 2019, chronic renal insufficiency, previous tobacco dependence, severe restrictive lung disease, obstructive sleep apnea, recurrent right-sided pleural effusio with previous thoracentesis x 4, remote history of pneumonia, family history of premature coronary artery disease POD #1 mitral valve replacement with 31 mm Mosaic porcine valve prosthesis, tricuspid valve repair with 30 mm MC3 band, coronary artery bypass grafting 1 with reverse saphenous vein graft to the obtuse marginal artery, endovascular vein harvest of the left greater saphenous vein, epi-aortic ultrasound, closure of the left atrial appendage, closure of ASD Postoperative acute blood loss anemia and thrombocytopenia, expected given hemodilution and cardiopulmonary bypass pump The patient was seen and examined this morning sitting up in a recliner in the i ntensive care unit in no acute distress. He was successfully extubated last night it 21:37. He denies any pain or shortness of breath. Currently ventricular paced at 80 bpm for blood pressure support. Remains on IV dopamine and Levophed for blood pressure support. Labs and x-rays revealed this morning. Patient did receive 2 units fresh frozen plasma and 2 units of platelets in the operating room yesterday as well as one unit packed red blood cells last evening. Chest tube output has slowed down overnight. Urine output has remained adequate. Right internal jugular [place]/Cordis, radial arterial line, mediastinal/left pleural chest tubes all remain. Objective - Vital Signs Vital signs: Vital Signs Temp 96.1 F L 07/29/21 04:00 Pulse 80 07/29/21 07:00 Resp 16 07/29/21 07:00 BP 98/72 07/29/21 07:00 Pulse Ox 90 L 07/29/21 07:00 Intake & Output 07/28/21 07/29/21 07/29/21 18:59 06:59 18:59 Intake Total 2979.821 1938.249 89 Output Total 4505 1270 70 Balance -1525.179 668.249 19 Weight 80 kg Intake: IV 1447 1599 89 Albumin Human 5% 250 ml 1000 500 In Empty Bag 1 bag @ 250 mls/hr IVPB Q1HR PRN Rx#: [id number] CO/CI 100 370 30 Lactated Ringers 1,000 ml 250 600 50 @ 50 mls/hr IV .Q20H PHIL Rx#:[id number] Pressure Bags 45 129 9 Intake, IV Titration 19.821 339.249 Amount DOPamine DRIP 800 mg In 25.101 Dextrose/Water 1 250ml. bag @ 3 MCG/KG/MIN 4.168 mls/hr IV .Q24H PHIL Rx#: [id number] Insulin Regular 100 unit 3.308 In Sodium Chloride 0.9% 100 ml @ Per Protocol IV .Q0M PHIL Rx#:[id number] Norepinephrine 4 mg In 310.840 Sodium Chloride 0.9% 250 ml @ 0.05 MCG/KG/MIN 14. 116 mls/hr IV .Q18H PHIL Rx#:[id number] propofoL 1,000 mg In 19.821 Empty Bag 1 bag @ Titrate IV .Q0M PHIL Rx#: [id number] Blood Product 1513 Ffp 24 Pher Acda Cnt1 267 Unit [id number] Ffp 24 Pher Acda Cnt2 248 Unit [id number] Platelet Pheresis Pas 332 Psoralen Unit [id number] Platelet Pheresis Pas 356 Psoralen Unit [id number] Rc As-1 Unit 310 [id number] Output: Drainage [address] x2 470 370 30 Urine 885 610 30 Estimated Blood Loss 3000 Other: Voiding Method Indwelling Catheter Indwelling Catheter ABP, PAP, CO, CI - Last Documented Arterial Blood Pressure 95/44 Pulmonary Artery Pressure 35/31 Cardiac Output 4.4 Cardiac Index 2.4 - Exam CONSTITUTIONAL: Appears comfortable, cooperative, no acute distress RESPIRATORY: Lungs sounds diminished bilaterally. Respirations even, nonlabored. Currently on 8 L high flow nasal cannula with oxygen saturation 91%. Able to achieve 750-1000 mL on incentive spirometry. Strong cough. CARDIOVASCULAR: S1, S2 present. Ventricular paced at 80 bpm on telemetry, u nderlying rhythm ventricular paced at 60 bpm. Sternum stable. Palpable peripheral pulses bilaterally. No edema present. No calf pain or tenderness noted. Heart hugger in place with patient demonstrating appropriate use. Antiembolism stockings, SCDs present. GASTROINTESTINAL: Abdomen soft, nontender, nondistended. Hypoactive bowel sounds present 4 quadrants. Tolerating clear liquids. Positive belching, negative flatus GENITOURINARY: Cortes present draining clear, yellow urine. Output overnight 30-55 mL per hour INTEGUMENTARY: Skin is warm and dry with evidence of good perfusion. Anterior chest incision well approximated and covered with dry intact dressing. Left lower extremity EVH site well approximated without redness or drainage. NEUROLOGIC: Cranial nerves II through XII intact MUSKULOSKELETAL: Able to move all extremities, strength equal bilaterally PSYCHIATRIC: Alert and oriented to person place and time, appropriate affect, intact judgment and insight INVASIVE LINES AND TUBES: Mediastinal/left pleural chest tubes present and connected to wall suction, no air leaks present. Mediastinal tube with 190 mL serosanguineous drainage overnight, 900 mL since surgery. Left pleural chest tube with 220 mL serosanguineous drainage overnight, 430 mL since surgery. V entricular epicardial pacemaker wire present, connected to generator, VVI mode at 80 bpm. Right internal jugular [place]/Cordis, left radial arterial line present. Last CO/CI 5.7/3.1, PA 47/16, CVP 14. - Labs CBC & Chem 7: 07/29/21 04:26 07/29/21 04:26 Labs: Abnormal Lab Results - Last 24 Hours (Table) 07/22/21 07/28/21 07/28/21 Range/Units 08:58 08:36 09:02 RBC (4.30-5.90) m/uL Hgb (13.0-17.5) gm/dL Hct (39.0-53.0) % Plt Count (150-450) k/uL Neutrophils # (1.3-7.7) k/uL Lymphocytes # (1.0-4.8) k/uL PT (9.0-12.0) sec INR (<1.2) APTT (22.0-30.0) sec Fibrinogen (200-500) mg/dL ABG pH (7.35-7.45) ABG pCO2 34 L (35-45) mmHg ABG pO2 131 H 145 H (83-108) mmHg ABG Total CO2 (19-24) mmol/L ABG O2 Saturation 99.4 H 99.3 H (94-97) % ABG Hematocrit 33 L 31 L (34.0-46.0) % ABG Ionized Calcium (4.5-5.3) mg/dL Hemoglobin 10.7 L 10.2 L (13.0-17.5) gm/dL Chloride (98-107) mmol/L BUN (9-20) mg/dL Creatinine (0.66-1.25) mg/dL Glucose (74-99) mg/dL POC Glucose (mg/dL) (75-99) mg/dL Calcium (8.4-10.2) mg/dL Magnesium (1.6-2.3) mg/dL AST (17-59) U/L Alkaline Phosphatase (38-126) U/L Total Protein (6.3-8.2) g/dL Albumin (3.5-5.0) g/dL Crossmatch See Detail 07/28/21 07/28/21 07/28/21 Range/Units 10:10 10:40 11:06 RBC (4.30-5.90) m/uL Hgb (13.0-17.5) gm/dL Hct (39.0-53.0) % Plt Count (150-450) k/uL Neutrophils # (1.3-7.7) k/uL Lymphocytes # (1.0-4.8) k/uL PT (9.0-12.0) sec INR (<1.2) APTT (22.0-30.0) sec Fibrinogen (200-500) mg/dL ABG pH 7.32 L (7.35-7.45) ABG pCO2 (35-45) mmHg ABG pO2 379 H 276 H 372 H (83-108) mmHg ABG Total CO2 (19-24) mmol/L ABG O2 Saturation 100.0 H 100.0 H 100.0 H (94-97) % ABG Hematocrit 25 L 25 L 23 L (34.0-46.0) % ABG Ionized Calcium 4.4 L 4.4 L 4.4 L (4.5-5.3) mg/dL Hemoglobin 8.2 L 8.3 L 7.5 L (13.0-17.5) gm/dL Chloride (98-107) mmol/L BUN (9-20) mg/dL Creatinine (0.66-1.25) mg/dL Glucose (74-99) mg/dL POC Glucose (mg/dL) (75-99) mg/dL Calcium (8.4-10.2) mg/dL Magnesium (1.6-2.3) mg/dL AST (17-59) U/L Alkaline Phosphatase (38-126) U/L Total Protein (6.3-8.2) g/dL Albumin (3.5-5.0) g/dL Crossmatch 07/28/21 07/28/21 07/28/21 Range/Units 11:47 12:53 14:04 RBC 2.49 L (4.30-5.90) m/uL Hgb 7.9 L (13.0-17.5) gm/dL Hct 24.2 L (39.0-53.0) % Plt Count 103 L (150-450) k/uL Neutrophils # 8.0 H (1.3-7.7) k/uL Lymphocytes # 0.5 L (1.0-4.8) k/uL PT (9.0-12.0) sec INR (<1.2) APTT (22.0-30.0) sec Fibrinogen (200-500) mg/dL ABG pH (7.35-7.45) ABG pCO2 (35-45) mmHg ABG pO2 370 H (83-108) mmHg ABG Total CO2 25 H (19-24) mmol/L ABG O2 Saturation 100.0 H 97.8 H (94-97) % ABG Hematocrit 24 L 28 L (34.0-46.0) % ABG Ionized Calcium 4.2 L 4.4 L (4.5-5.3) mg/dL Hemoglobin 7.7 L 9.1 L (13.0-17.5) gm/dL Chloride (98-107) mmol/L BUN (9-20) mg/dL Creatinine (0.66-1.25) mg/dL Glucose (74-99) mg/dL POC Glucose (mg/dL) (75-99) mg/dL Calcium (8.4-10.2) mg/dL Magnesium (1.6-2.3) mg/dL AST (17-59) U/L Alkaline Phosphatase (38-126) U/L Total Protein (6.3-8.2) g/dL Albumin (3.5-5.0) g/dL Crossmatch 07/28/21 07/28/21 07/28/21 Range/Units 14:04 14:04 14:24 RBC (4.30-5.90) m/uL Hgb (13.0-17.5) gm/dL Hct (39.0-53.0) % Plt Count (150-450) k/uL Neutrophils # (1.3-7.7) k/uL Lymphocytes # (1.0-4.8) k/uL PT 18.7 H (9.0-12.0) sec INR 1.9 H (<1.2) APTT 50.6 H (22.0-30.0) sec Fibrinogen 199 L (200-500) mg/dL ABG pH 7.34 L (7.35-7.45) ABG pCO2 (35-45) mmHg ABG pO2 136 H (83-108) mmHg ABG Total CO2 25 H (19-24) mmol/L ABG O2 Saturation 99.2 H (94-97) % ABG Hematocrit (34.0-46.0) % ABG Ionized Calcium (4.5-5.3) mg/dL Hemoglobin (13.0-17.5) gm/dL Chloride 111 H (98-107) mmol/L BUN 40 H (9-20) mg/dL Creatinine (0.66-1.25) mg/dL Glucose (74-99) mg/dL POC Glucose (mg/dL) (75-99) mg/dL Calcium 8.0 L (8.4-10.2) mg/dL Magnesium 4.2 H (1.6-2.3) mg/dL AST (17-59) U/L Alkaline Phosphatase 32 L (38-126) U/L Total Protein 4.5 L (6.3-8.2) g/dL Albumin 2.7 L (3.5-5.0) g/dL Crossmatch 07/28/21 07/28/21 07/28/21 Range/Units 15:30 17:12 18:05 RBC 2.20 L (4.30-5.90) m/uL Hgb 6.9 L* (13.0-17.5) gm/dL Hct 21.4 L (39.0-53.0) % Plt Count 70 L (150-450) k/uL Neutrophils # (1.3-7.7) k/uL Lymphocytes # 0.5 L (1.0-4.8) k/uL PT (9.0-12.0) sec INR (<1.2) APTT (22.0-30.0) sec Fibrinogen (200-500) mg/dL ABG pH 7.30 L (7.35-7.45) ABG pCO2 48 H (35-45) mmHg ABG pO2 73 L (83-108) mmHg ABG Total CO2 25 H (19-24) mmol/L ABG O2 Saturation (94-97) % ABG Hematocrit (34.0-46.0) % ABG Ionized Calcium (4.5-5.3) mg/dL Hemoglobin (13.0-17.5) gm/dL Chloride (98-107) mmol/L BUN (9-20) mg/dL Creatinine (0.66-1.25) mg/dL Glucose (74-99) mg/dL POC Glucose (mg/dL) 104 H (75-99) mg/dL Calcium (8.4-10.2) mg/dL Magnesium (1.6-2.3) mg/dL AST (17-59) U/L Alkaline Phosphatase (38-126) U/L Total Protein (6.3-8.2) g/dL Albumin (3.5-5.0) g/dL Crossmatch 07/28/21 07/28/21 07/28/21 Range/Units 18:07 18:16 19:01 RBC (4.30-5.90) m/uL Hgb (13.0-17.5) gm/dL Hct (39.0-53.0) % Plt Count (150-450) k/uL Neutrophils # (1.3-7.7) k/uL Lymphocytes # (1.0-4.8) k/uL PT (9.0-12.0) sec INR (<1.2) APTT (22.0-30.0) sec Fibrinogen (200-500) mg/dL ABG pH 7.34 L (7.35-7.45) ABG pCO2 (35-45) mmHg ABG pO2 81 L (83-108) mmHg ABG Total CO2 (19-24) mmol/L ABG O2 Saturation (94-97) % ABG Hematocrit (34.0-46.0) % ABG Ionized Calcium (4.5-5.3) mg/dL Hemoglobin (13.0-17.5) gm/dL Chloride (98-107) mmol/L BUN (9-20) mg/dL Creatinine (0.66-1.25) mg/dL Glucose (74-99) mg/dL POC Glucose (mg/dL) 111 H 114 H (75-99) mg/dL Calcium (8.4-10.2) mg/dL Magnesium (1.6-2.3) mg/dL AST (17-59) U/L Alkaline Phosphatase (38-126) U/L Total Protein (6.3-8.2) g/dL Albumin (3.5-5.0) g/dL Crossmatch 07/28/21 07/28/21 07/28/21 Range/Units 19:49 20:00 20:55 RBC 2.64 L (4.30-5.90) m/uL Hgb 8.1 L (13.0-17.5) gm/dL Hct 25.5 L (39.0-53.0) % Plt Count 85 L (150-450) k/uL Neutrophils # (1.3-7.7) k/uL Lymphocytes # 0.4 L (1.0-4.8) k/uL PT (9.0-12.0) sec INR (<1.2) APTT (22.0-30.0) sec Fibrinogen (200-500) mg/dL ABG pH (7.35-7.45) ABG pCO2 (35-45) mmHg ABG pO2 (83-108) mmHg ABG Total CO2 (19-24) mmol/L ABG O2 Saturation (94-97) % ABG Hematocrit (34.0-46.0) % ABG Ionized Calcium (4.5-5.3) mg/dL Hemoglobin (13.0-17.5) gm/dL Chloride (98-107) mmol/L BUN (9-20) mg/dL Creatinine (0.66-1.25) mg/dL Glucose (74-99) mg/dL POC Glucose (mg/dL) 117 H 115 H (75-99) mg/dL Calcium (8.4-10.2) mg/dL Magnesium (1.6-2.3) mg/dL AST (17-59) U/L Alkaline Phosphatase (38-126) U/L Total Protein (6.3-8.2) g/dL Albumin (3.5-5.0) g/dL Crossmatch 07/28/21 07/28/21 07/28/21 Range/Units 22:04 22:58 23:58 RBC (4.30-5.90) m/uL Hgb (13.0-17.5) gm/dL Hct (39.0-53.0) % Plt Count (150-450) k/uL Neutrophils # (1.3-7.7) k/uL Lymphocytes # (1.0-4.8) k/uL PT (9.0-12.0) sec INR (<1.2) APTT (22.0-30.0) sec Fibrinogen (200-500) mg/dL ABG pH (7.35-7.45) ABG pCO2 (35-45) mmHg ABG pO2 (83-108) mmHg ABG Total CO2 (19-24) mmol/L ABG O2 Saturation (94-97) % ABG Hematocrit (34.0-46.0) % ABG Ionized Calcium (4.5-5.3) mg/dL Hemoglobin (13.0-17.5) gm/dL Chloride (98-107) mmol/L BUN (9-20) mg/dL Creatinine (0.66-1.25) mg/dL Glucose (74-99) mg/dL POC Glucose (mg/dL) 128 H 123 H 131 H (75-99) mg/dL Calcium (8.4-10.2) mg/dL Magnesium (1.6-2.3) mg/dL AST (17-59) U/L Alkaline Phosphatase (38-126) U/L Total Protein (6.3-8.2) g/dL Albumin (3.5-5.0) g/dL Crossmatch 07/29/21 07/29/21 07/29/21 Range/Units 00:57 01:55 02:57 RBC (4.30-5.90) m/uL Hgb (13.0-17.5) gm/dL Hct (39.0-53.0) % Plt Count (150-450) k/uL Neutrophils # (1.3-7.7) k/uL Lymphocytes # (1.0-4.8) k/uL PT (9.0-12.0) sec INR (<1.2) APTT (22.0-30.0) sec Fibrinogen (200-500) mg/dL ABG pH (7.35-7.45) ABG pCO2 (35-45) mmHg ABG pO2 (83-108) mmHg ABG Total CO2 (19-24) mmol/L ABG O2 Saturation (94-97) % ABG Hematocrit (34.0-46.0) % ABG Ionized Calcium (4.5-5.3) mg/dL Hemoglobin (13.0-17.5) gm/dL Chloride (98-107) mmol/L BUN (9-20) mg/dL Creatinine (0.66-1.25) mg/dL Glucose (74-99) mg/dL POC Glucose (mg/dL) 110 H 136 H 123 H (75-99) mg/dL Calcium (8.4-10.2) mg/dL Magnesium (1.6-2.3) mg/dL AST (17-59) U/L Alkaline Phosphatase (38-126) U/L Total Protein (6.3-8.2) g/dL Albumin (3.5-5.0) g/dL Crossmatch 07/29/21 07/29/21 07/29/21 Range/Units 04:17 04:26 04:26 RBC 2.48 L (4.30-5.90) m/uL Hgb 7.5 L (13.0-17.5) gm/dL Hct 23.9 L (39.0-53.0) % Plt Count 80 L (150-450) k/uL Neutrophils # 8.3 H (1.3-7.7) k/uL Lymphocytes # 0.3 L (1.0-4.8) k/uL PT (9.0-12.0) sec INR (<1.2) APTT (22.0-30.0) sec Fibrinogen (200-500) mg/dL ABG pH (7.35-7.45) ABG pCO2 (35-45) mmHg ABG pO2 (83-108) mmHg ABG Total CO2 (19-24) mmol/L ABG O2 Saturation (94-97) % ABG Hematocrit (34.0-46.0) % ABG Ionized Calcium (4.5-5.3) mg/dL Hemoglobin (13.0-17.5) gm/dL Chloride 113 H (98-107) mmol/L BUN 37 H (9-20) mg/dL Creatinine 1.46 H (0.66-1.25) mg/dL Glucose 122 H (74-99) mg/dL POC Glucose (mg/dL) 123 H (75-99) mg/dL Calcium 7.7 L (8.4-10.2) mg/dL Magnesium 3.5 H (1.6-2.3) mg/dL AST 74 H (17-59) U/L Alkaline Phosphatase 37 L (38-126) U/L Total Protein 5.0 L (6.3-8.2) g/dL Albumin 3.2 L (3.5-5.0) g/dL Crossmatch 07/29/21 07/29/21 07/29/21 Range/Units 05:09 05:57 07:02 RBC (4.30-5.90) m/uL Hgb (13.0-17.5) gm/dL Hct (39.0-53.0) % Plt Count (150-450) k/uL Neutrophils # (1.3-7.7) k/uL Lymphocytes # (1.0-4.8) k/uL PT (9.0-12.0) sec INR (<1.2) APTT (22.0-30.0) sec Fibrinogen (200-500) mg/dL ABG pH (7.35-7.45) ABG pCO2 (35-45) mmHg ABG pO2 (83-108) mmHg ABG Total CO2 (19-24) mmol/L ABG O2 Saturation (94-97) % ABG Hematocrit (34.0-46.0) % ABG Ionized Calcium (4.5-5.3) mg/dL Hemoglobin (13.0-17.5) gm/dL Chloride (98-107) mmol/L BUN (9-20) mg/dL Creatinine (0.66-1.25) mg/dL Glucose (74-99) mg/dL POC Glucose (mg/dL) 107 H 132 H 130 H (75-99) mg/dL Calcium (8.4-10.2) mg/dL Magnesium (1.6-2.3) mg/dL AST (17-59) U/L Alkaline Phosphatase (38-126) U/L Total Protein (6.3-8.2) g/dL Albumin (3.5-5.0) g/dL Crossmatch 07/29/21 Range/Units 07:10 RBC (4.30-5.90) m/uL Hgb (13.0-17.5) gm/dL Hct (39.0-53.0) % Plt Count (150-450) k/uL Neutrophils # (1.3-7.7) k/uL Lymphocytes # (1.0-4.8) k/uL PT 27.1 H (9.0-12.0) sec INR 2.7 H (<1.2) APTT 41.8 H (22.0-30.0) sec Fibrinogen (200-500) mg/dL ABG pH (7.35-7.45) ABG pCO2 (35-45) mmHg ABG pO2 (83-108) mmHg ABG Total CO2 (19-24) mmol/L ABG O2 Saturation (94-97) % ABG Hematocrit (34.0-46.0) % ABG Ionized Calcium (4.5-5.3) mg/dL Hemoglobin (13.0-17.5) gm/dL Chloride (98-107) mmol/L BUN (9-20) mg/dL Creatinine (0.66-1.25) mg/dL Glucose (74-99) mg/dL POC Glucose (mg/dL) (75-99) mg/dL Calcium (8.4-10.2) mg/dL Magnesium (1.6-2.3) mg/dL AST (17-59) U/L Alkaline Phosphatase (38-126) U/L Total Protein (6.3-8.2) g/dL Albumin (3.5-5.0) g/dL Crossmatch Assessment and Plan Assessment: 1. Mitral valve regurgitation, previous MitraClip in 2020, status post post mitral valve replacement 2. Tricuspid valve regurgitation, status post tricuspid valve repair 3. Coronary artery disease with previous myocardial infarction and PCI, status post 1 vessel CABG 4. History of hypertension, currently hypotensive on levo and dopamine 5. Chronic atrial fibrillation on Coumadin for anticoagulation status post cardioversion, status post closure of the left atrial appendage 6. Sick sinus syndrome status post [facility] permanent pacemaker placement in 2017 7. Chronic systolic heart failure 8. Atrial septal defect status post closure 9. Chronic renal insufficiency 10. Previous tobacco dependence 11. Severe restrictive lung disease, preoperative FEV1 47% of predicted 12. Recurrent right-sided pleural effusion, patient had right sided thoracentesis twice in 2019 and twice in 2020 13. Obstructive sleep apnea 14. Remote history of pneumonia 15. Family history of premature coronary artery disease 16. Postoperative acute blood loss anemia and thrombocytopenia, expected Plan: 1. Continue low-dose aspirin, statin. Will hold Plavix and beta shila for now, we will restart when able. Will restart anticoagulation when able 2. Wean levo, dopamine as tolerated 3. Wean O2 as tolerated. Encourage incentive spirometry use 10 times every hour while awake. Bronchodilators per pulmonology. 4. Increase activity, ambulate as tolerated. PT/OT/. We have consulted 5. Will monitor daily labs and x-rays. Hit panel sent. No further blood products at this time 6. GI/DVT prophylaxis. Hold heparin subcu for platelet count less than 100,000 7. Insulin management per primary care service. Patient is not diabetic, preoperative hemoglobin A1c 5.8% 8. Pain control current medication regimen 9. Continue [place]/Cordis, arterial line for another 24 hours 10. Continue chest tubes for another 24 hours 11. Continue Cortes catheter for another 24 hours for strict accurate intake and output. Daily weights 12. More recommendations to follow based on patient's progress
--- NOTE | 2021-07-29 08:30 | XR ---
EXAMINATION TYPE: XR chest 1V portable DATE OF EXAM: 07/29/2021 COMPARISON: 07/28/2021 INDICATION: Postcardiac surgery TECHNIQUE: Single frontal view of the chest is obtained. FINDINGS: The heart size is normal. The pulmonary vasculature is normal. There is a peripheral right-sided pleural fluid collection which may be increasing. [place]-Brady catheter is present the tip in the main pulmonary artery region. Mediastinal tube is presen t. A left-sided chest tube is present. No pneumothorax is evident. Endotracheal tube and nasogastric tube been removed. IMPRESSION: 1. Increasing right-sided pleural fluid. 2. Lines and catheter adjustments discussed above
[2021-07-29] MEDS: MUPIROCIN 2% OINT 22 GM TUBE NASAL SCH ×2 (08:35→19:55)
[2021-07-29] MEDS: FOLIC ACID 1 MG TAB PO SCH (08:35)
[2021-07-29] MEDS: allopurinoL 100 MG TAB PO SCH (08:35)
[2021-07-29] MEDS: FERROUS SULFATE 325 MG TAB PO SCH (08:35)
[2021-07-29] MEDS: ASPIRIN 81 MG PO SCH (08:35)
[2021-07-29] MEDS: ASCORBIC ACID 500 MG TAB PO SCH (08:35)
[2021-07-29] MEDS ORDERED: ASPIRIN 325 MG TAB PO SCH (09:00)
[2021-07-29] MEDS ORDERED: METOPROLOL TARTRATE 12.5 MG TAB PO SCH (09:00)
[2021-07-29] MEDS ORDERED: CLOPIDOGREL 75 MG TAB PO SCH (09:00)
[2021-07-29] MEDS ORDERED: MAGNESIUM HYDROXIDE 2,400 MG/10 ML CUP PO PRN (09:00)
[2021-07-29] MEDS ORDERED: PANTOPRAZOLE 40 MG/10 ML VIAL IVP SCH (09:00)
[2021-07-29 09:05] LABS: Glucose,Whole Blood 161 mg/dL (75-99)
--- NOTE | 2021-07-29 10:22 | P.PN ---
Subjective Progress Note Date: 07/29/21 Principal diagnosis: Status post mitral valve replacement, tricuspid valve repair, and single-vessel bypass surgery. Pulmonary consult dated 07/28/2021. 81-year-old male, that is seen in room 251, postop day #0, status post mitral valve replacement, tricuspid valve repair, and single-vessel bypass grafting, SVG to OM. The patient is seen in the intensive care unit. The patient is on the ventilator, with vent settings of volume assist control, rate of 14, tidal volume 500, FiO2 100%, and PEEP of 5. Arterial blood gases are currently pending. Blood gases in the operating room show pO2 of 97, pCO2 41, and pH is 7.37. His most recent cardiac output was 4.9 with index of 2.6. The patient was on norepinephrine at 5 g a minute and nitroglycerin at 5 mcg/m. The patien t received 2 units of platelets, 2 units of fresh frozen plasma, and 2 500 bags of albumin. Estimated blood loss was 3000 mL. Additional labs, and x-ray is currently pending. The patient has a history of chronic heart failure, and renal insufficiency, among other things. Progress note dated 07/29/2021. This is a 81-year-old male, seen in room 251. He's postop day #1, status post mitral valve replacement, tricuspid valve repair, and single-vessel bypass grafting, SVG to obtuse marginal. The patient was extubated yesterday after about 7 to 7.5 hours. He's currently on 8 L high flow nasal O2. He is getting lactated Ringer's at 50 mL an hour, norepinephrine at 6.4 mcg/m, dopamine at 3 m cg/kg/m, and insulin at 1 unit an hour. White count 9.5, hemoglobin 7.5, hematocrit 23.9, and platelet count 80,000. The patient's PTT was 41.8. Sodium 144, potassium 4.2, chlorides 113, CO2 22, anion gap 9, BUN 37, creatinine 1.46. Albumin is 3.2. Chest x-ray shows some atelectasis at the left lung base, and loculated pleural effusion on the right side. Postsurgical changes are also noted. Objective - Vital Signs Vital signs: Vital Signs Temp 96.1 F L 07/29/21 04:00 Pulse 80 07/29/21 10:00 Resp 19 07/29/21 10:00 BP 116/72 07/29/21 10:00 Pulse Ox 91 L 07/29/21 10:00 Intake & Output 07/28/21 07/29/21 07/29/21 18:59 06:59 18:59 Intake Total 2979.821 1938.249 230.468 Output Total 4505 1270 170 Balance -1525.179 668.249 60.468 Weight 80 kg Intake: IV 1447 1599 227 Albumin Human 5% 250 ml 1000 500 In Empty Bag 1 bag @ 250 mls/hr IVPB Q1HR PRN Rx#: [id number] CO/CI 100 370 50 Lactated Ringers 1,000 ml 250 600 150 @ 50 mls/hr IV .Q20H PHIL Rx#:[id number] Pressure Bags 45 129 27 Intake, IV Titration 19.821 339.249 3.468 Amount DOPamine DRIP 800 mg In 25.101 Dextrose/Water 1 250ml. bag @ 3 MCG/KG/MIN 4.168 mls/hr IV .Q24H PHIL Rx#: [id number] Insulin Regular 100 unit 3.308 3.468 In Sodium Chloride 0.9% 100 ml @ Per Protocol IV .Q0M PHIL Rx#:[id number] Norepinephrine 4 mg In 310.840 Sodium Chloride 0.9% 250 ml @ 0.05 MCG/KG/MIN 14. 116 mls/hr IV .Q18H PHIL Rx#:[id number] propofoL 1,000 mg In 19.821 Empty Bag 1 bag @ Titrate IV .Q0M PHIL Rx#: [id number] Blood Product 1513 Ffp 24 Pher Acda Cnt1 267 Unit [id number] Ffp 24 Pher Acda Cnt2 248 Unit [id number] Platelet Pheresis Pas 332 Psoralen Unit [id number] Platelet Pheresis Pas 356 Psoralen Unit [id number] Rc As-1 Unit 310 [id number] Output: Drainage [address] x2 470 370 60 Urine 885 610 70 Estimated Blood Loss 3000 Other: Voiding Method Indwelling Catheter Indwelling Catheter ABP, PAP, CO, CI - Last Documented Arterial Blood Pressure 96/39 Pulmonary Artery Pressure 44/15 Cardiac Output 4.7 Cardiac Index 2.5 - Exam No acute distress, sitting up in the chair, currently on 8 L high flow nasal O2. HEENT examination is grossly unremarkable. Neck supple. Full range of motion. No adenopathy thyromegaly or neck vein distention. Cardiovascular examination reveals regular rhythm rate. S1-S2 normal. No S3 or S4. No discernible murmur noted. Heart rate 80 bpm Lungs reveal mostly clear breath sounds. Breath sounds are equal bilaterally. Mild scattered rhonchi are noted. No wheezes or crackles. Saturations are 93%. Abdomen soft, without bowel sounds. Extremities are intact. No cyanosis clubbing or edema. Skin is without rash or lesion. Neurologic examination is brief but nonfocal. - Labs CBC & Chem 7: 07/29/21 04:26 07/29/21 04:26 Labs: Abnormal Lab Results - Last 24 Hours (Table) 07/22/21 07/28/21 07/28/21 Range/Units 08:58 08:36 09:02 RBC (4.30-5.90) m/uL Hgb (13.0-17.5) gm/dL Hct (39.0-53.0) % Plt Count (150-450) k/uL Neutrophils # (1.3-7.7) k/uL Lymphocytes # (1.0-4.8) k/uL PT (9.0-12.0) sec INR (<1.2) APTT (22.0-30.0) sec Fibrinogen (200-500) mg/dL ABG pH (7.35-7.45) ABG pCO2 34 L (35-45) mmHg ABG pO2 131 H 145 H (83-108) mmHg ABG Total CO2 (19-24) mmol/L ABG O2 Saturation 99.4 H 99.3 H (94-97) % ABG Hematocrit 33 L 31 L (34.0-46.0) % ABG Ionized Calcium (4.5-5.3) mg/dL Hemoglobin 10.7 L 10.2 L (13.0-17.5) gm/dL Chloride (98-107) mmol/L BUN (9-20) mg/dL Creatinine (0.66-1.25) mg/dL Glucose (74-99) mg/dL POC Glucose (mg/dL) (75-99) mg/dL Calcium (8.4-10.2) mg/dL Magnesium (1.6-2.3) mg/dL AST (17-59) U/L Alkaline Phosphatase (38-126) U/L Total Protein (6.3-8.2) g/dL Albumin (3.5-5.0) g/dL Crossmatch See Detail 07/28/21 07/28/21 07/28/21 Range/Units 10:10 10:40 11:06 RBC (4.30-5.90) m/uL Hgb (13.0-17.5) gm/dL Hct (39.0-53.0) % Plt Count (150-450) k/uL Neutrophils # (1.3-7.7) k/uL Lymphocytes # (1.0-4.8) k/uL PT (9.0-12.0) sec INR (<1.2) APTT (22.0-30.0) sec Fibrinogen (200-500) mg/dL ABG pH 7.32 L (7.35-7.45) ABG pCO2 (35-45) mmHg ABG pO2 379 H 276 H 372 H (83-108) mmHg ABG Total CO2 (19-24) mmol/L ABG O2 Saturation 100.0 H 100.0 H 100.0 H (94-97) % ABG Hematocrit 25 L 25 L 23 L (34.0-46.0) % ABG Ionized Calcium 4.4 L 4.4 L 4.4 L (4.5-5.3) mg/dL Hemoglobin 8.2 L 8.3 L 7.5 L (13.0-17.5) gm/dL Chloride (98-107) mmol/L BUN (9-20) mg/dL Creatinine (0.66-1.25) mg/dL Glucose (74-99) mg/dL POC Glucose (mg/dL) (75-99) mg/dL Calcium (8.4-10.2) mg/dL Magnesium (1.6-2.3) mg/dL AST (17-59) U/L Alkaline Phosphatase (38-126) U/L Total Protein (6.3-8.2) g/dL Albumin (3.5-5.0) g/dL Crossmatch 07/28/21 07/28/21 07/28/21 Range/Units 11:47 12:53 14:04 RBC 2.49 L (4.30-5.90) m/uL Hgb 7.9 L (13.0-17.5) gm/dL Hct 24.2 L (39.0-53.0) % Plt Count 103 L (150-450) k/uL Neutrophils # 8.0 H (1.3-7.7) k/uL Lymphocytes # 0.5 L (1.0-4.8) k/uL PT (9.0-12.0) sec INR (<1.2) APTT (22.0-30.0) sec Fibrinogen (200-500) mg/dL ABG pH (7.35-7.45) ABG pCO2 (35-45) mmHg ABG pO2 370 H (83-108) mmHg ABG Total CO2 25 H (19-24) mmol/L ABG O2 Saturation 100.0 H 97.8 H (94-97) % ABG Hematocrit 24 L 28 L (34.0-46.0) % ABG Ionized Calcium 4.2 L 4.4 L (4.5-5.3) mg/dL Hemoglobin 7.7 L 9.1 L (13.0-17.5) gm/dL Chloride (98-107) mmol/L BUN (9-20) mg/dL Creatinine (0.66-1.25) mg/dL Glucose (74-99) mg/dL POC Glucose (mg/dL) (75-99) mg/dL Calcium (8.4-10.2) mg/dL Magnesium (1.6-2.3) mg/dL AST (17-59) U/L Alkaline Phosphatase (38-126) U/L Total Protein (6.3-8.2) g/dL Albumin (3.5-5.0) g/dL Crossmatch 07/28/21 07/28/21 07/28/21 Range/Units 14:04 14:04 14:24 RBC (4.30-5.90) m/uL Hgb (13.0-17.5) gm/dL Hct (39.0-53.0) % Plt Count (150-450) k/uL Neutrophils # (1.3-7.7) k/uL Lymphocytes # (1.0-4.8) k/uL PT 18.7 H (9.0-12.0) sec INR 1.9 H (<1.2) APTT 50.6 H (22.0-30.0) sec Fibrinogen 199 L (200-500) mg/dL ABG pH 7.34 L (7.35-7.45) ABG pCO2 (35-45) mmHg ABG pO2 136 H (83-108) mmHg ABG Total CO2 25 H (19-24) mmol/L ABG O2 Saturation 99.2 H (94-97) % ABG Hematocrit (34.0-46.0) % ABG Ionized Calcium (4.5-5.3) mg/dL Hemoglobin (13.0-17.5) gm/dL Chloride 111 H (98-107) mmol/L BUN 40 H (9-20) mg/dL Creatinine (0.66-1.25) mg/dL Glucose (74-99) mg/dL POC Glucose (mg/dL) (75-99) mg/dL Calcium 8.0 L (8.4-10.2) mg/dL Magnesium 4.2 H (1.6-2.3) mg/dL AST (17-59) U/L Alkaline Phosphatase 32 L (38-126) U/L Total Protein 4.5 L (6.3-8.2) g/dL Albumin 2.7 L (3.5-5.0) g/dL Crossmatch 07/28/21 07/28/21 07/28/21 Range/Units 15:30 17:12 18:05 RBC 2.20 L (4.30-5.90) m/uL Hgb 6.9 L* (13.0-17.5) gm/dL Hct 21.4 L (39.0-53.0) % Plt Count 70 L (150-450) k/uL Neutrophils # (1.3-7.7) k/uL Lymphocytes # 0.5 L (1.0-4.8) k/uL PT (9.0-12.0) sec INR (<1.2) APTT (22.0-30.0) sec Fibrinogen (200-500) mg/dL ABG pH 7.30 L (7.35-7.45) ABG pCO2 48 H (35-45) mmHg ABG pO2 73 L (83-108) mmHg ABG Total CO2 25 H (19-24) mmol/L ABG O2 Saturation (94-97) % ABG Hematocrit (34.0-46.0) % ABG Ionized Calcium (4.5-5.3) mg/dL Hemoglobin (13.0-17.5) gm/dL Chloride (98-107) mmol/L BUN (9-20) mg/dL Creatinine (0.66-1.25) mg/dL Glucose (74-99) mg/dL POC Glucose (mg/dL) 104 H (75-99) mg/dL Calcium (8.4-10.2) mg/dL Magnesium (1.6-2.3) mg/dL AST (17-59) U/L Alkaline Phosphatase (38-126) U/L Total Protein (6.3-8.2) g/dL Albumin (3.5-5.0) g/dL Crossmatch 07/28/21 07/28/21 07/28/21 Range/Units 18:07 18:16 19:01 RBC (4.30-5.90) m/uL Hgb (13.0-17.5) gm/dL Hct (39.0-53.0) % Plt Count (150-450) k/uL Neutrophils # (1.3-7.7) k/uL Lymphocytes # (1.0-4.8) k/uL PT (9.0-12.0) sec INR (<1.2) APTT (22.0-30.0) sec Fibrinogen (200-500) mg/dL ABG pH 7.34 L (7.35-7.45) ABG pCO2 (35-45) mmHg ABG pO2 81 L (83-108) mmHg ABG Total CO2 (19-24) mmol/L ABG O2 Saturation (94-97) % ABG Hematocrit (34.0-46.0) % ABG Ionized Calcium (4.5-5.3) mg/dL Hemoglobin (13.0-17.5) gm/dL Chloride (98-107) mmol/L BUN (9-20) mg/dL Creatinine (0.66-1.25) mg/dL Glucose (74-99) mg/dL POC Glucose (mg/dL) 111 H 114 H (75-99) mg/dL Calcium (8.4-10.2) mg/dL Magnesium (1.6-2.3) mg/dL AST (17-59) U/L Alkaline Phosphatase (38-126) U/L Total Protein (6.3-8.2) g/dL Albumin (3.5-5.0) g/dL Crossmatch 07/28/21 07/28/21 07/28/21 Range/Units 19:49 20:00 20:55 RBC 2.64 L (4.30-5.90) m/uL Hgb 8.1 L (13.0-17.5) gm/dL Hct 25.5 L (39.0-53.0) % Plt Count 85 L (150-450) k/uL Neutrophils # (1.3-7.7) k/uL Lymphocytes # 0.4 L (1.0-4.8) k/uL PT (9.0-12.0) sec INR (<1.2) APTT (22.0-30.0) sec Fibrinogen (200-500) mg/dL ABG pH (7.35-7.45) ABG pCO2 (35-45) mmHg ABG pO2 (83-108) mmHg ABG Total CO2 (19-24) mmol/L ABG O2 Saturation (94-97) % ABG Hematocrit (34.0-46.0) % ABG Ionized Calcium (4.5-5.3) mg/dL Hemoglobin (13.0-17.5) gm/dL Chloride (98-107) mmol/L BUN (9-20) mg/dL Creatinine (0.66-1.25) mg/dL Glucose (74-99) mg/dL POC Glucose (mg/dL) 117 H 115 H (75-99) mg/dL Calcium (8.4-10.2) mg/dL Magnesium (1.6-2.3) mg/dL AST (17-59) U/L Alkaline Phosphatase (38-126) U/L Total Protein (6.3-8.2) g/dL Albumin (3.5-5.0) g/dL Crossmatch 07/28/21 07/28/2122 Range/Units 22:04 22:58 23:58 RBC (4.30-5.90) m/uL Hgb (13.0-17.5) gm/dL Hct (39.0-53.0) % Plt Count (150-450) k/uL Neutrophils # (1.3-7.7) k/uL Lymphocytes # (1.0-4.8) k/uL PT (9.0-12.0) sec INR (<1.2) APTT (22.0-30.0) sec Fibrinogen (200-500) mg/dL ABG pH (7.35-7.45) ABG pCO2 (35-45) mmHg ABG pO2 (83-108) mmHg ABG Total CO2 (19-24) mmol/L ABG O2 Saturation (94-97) % ABG Hematocrit (34.0-46.0) % ABG Ionized Calcium (4.5-5.3) mg/dL Hemoglobin (13.0-17.5) gm/dL Chloride (98-107) mmol/L BUN (9-20) mg/dL Creatinine (0.66-1.25) mg/dL Glucose (74-99) mg/dL POC Glucose (mg/dL) 128 H 123 H 131 H (75-99) mg/dL Calcium (8.4-10.2) mg/dL Magnesium (1.6-2.3) mg/dL AST (17-59) U/L Alkaline Phosphatase (38-126) U/L Total Protein (6.3-8.2) g/dL Albumin (3.5-5.0) g/dL Crossmatch 07/29/21 07/29/21 07/29/21 Range/Units 00:57 01:55 02:57 RBC (4.30-5.90) m/uL Hgb (13.0-17.5) gm/dL Hct (39.0-53.0) % Plt Count (150-450) k/uL Neutrophils # (1.3-7.7) k/uL Lymphocytes # (1.0-4.8) k/uL PT (9.0-12.0) sec INR (<1.2) APTT (22.0-30.0) sec Fibrinogen (200-500) mg/dL ABG pH (7.35-7.45) ABG pCO2 (35-45) mmHg ABG pO2 (83-108) mmHg ABG Total CO2 (19-24) mmol/L ABG O2 Saturation (94-97) % ABG Hematocrit (34.0-46.0) % ABG Ionized Calcium (4.5-5.3) mg/dL Hemoglobin (13.0-17.5) gm/dL Chloride (98-107) mmol/L BUN (9-20) mg/dL Creatinine (0.66-1.25) mg/dL Glucose (74-99) mg/dL POC Glucose (mg/dL) 110 H 136 H 123 H (75-99) mg/dL Calcium (8.4-10.2) mg/dL Magnesium (1.6-2.3) mg/dL AST (17-59) U/L Alkaline Phosphatase (38-126) U/L Total Protein (6.3-8.2) g/dL Albumin (3.5-5.0) g/dL Crossmatch 07/29/21 07/29/21 07/29/21 Range/Units 04:17 04:26 04:26 RBC 2.48 L (4.30-5.90) m/uL Hgb 7.5 L (13.0-17.5) gm/dL Hct 23.9 L (39.0-53.0) % Plt Count 80 L (150-450) k/uL Neutrophils # 8.3 H (1.3-7.7) k/uL Lymphocytes # 0.3 L (1.0-4.8) k/uL PT (9.0-12.0) sec INR (<1.2) APTT (22.0-30.0) sec Fibrinogen (200-500) mg/dL ABG pH (7.35-7.45) ABG pCO2 (35-45) mmHg ABG pO2 (83-108) mmHg ABG Total CO2 (19-24) mmol/L ABG O2 Saturation (94-97) % ABG Hematocrit (34.0-46.0) % ABG Ionized Calcium (4.5-5.3) mg/dL Hemoglobin (13.0-17.5) gm/dL Chloride 113 H (98-107) mmol/L BUN 37 H (9-20) mg/dL Creatinine 1.46 H (0.66-1.25) mg/dL Glucose 122 H (74-99) mg/dL POC Glucose (mg/dL) 123 H (75-99) mg/dL Calcium 7.7 L (8.4-10.2) mg/dL Magnesium 3.5 H (1.6-2.3) mg/dL AST 74 H (17-59) U/L Alkaline Phosphatase 37 L (38-126) U/L Total Protein 5.0 L (6.3-8.2) g/dL Albumin 3.2 L (3.5-5.0) g/dL Crossmatch 07/29/21 07/29/21 07/29/21 Range/Units 05:09 05:57 07:02 RBC (4.30-5.90) m/uL Hgb (13.0-17.5) gm/dL Hct (39.0-53.0) % Plt Count (150-450) k/uL Neutrophils # (1.3-7.7) k/uL Lymphocytes # (1.0-4.8) k/uL PT (9.0-12.0) sec INR (<1.2) APTT (22.0-30.0) sec Fibrinogen (200-500) mg/dL ABG pH (7.35-7.45) ABG pCO2 (35-45) mmHg ABG pO2 (83-108) mmHg ABG Total CO2 (19-24) mmol/L ABG O2 Saturation (94-97) % ABG Hematocrit (34.0-46.0) % ABG Ionized Calcium (4.5-5.3) mg/dL Hemoglobin (13.0-17.5) gm/dL Chloride (98-107) mmol/L BUN (9-20) mg/dL Creatinine (0.66-1.25) mg/dL Glucose (74-99) mg/dL POC Glucose (mg/dL) 107 H 132 H 130 H (75-99) mg/dL Calcium (8.4-10.2) mg/dL Magnesium (1.6-2.3) mg/dL AST (17-59) U/L Alkaline Phosphatase (38-126) U/L Total Protein (6.3-8.2) g/dL Albumin (3.5-5.0) g/dL Crossmatch 07/29/21 07/29/21 07/29/21 Range/Units 07:10 08:19 09:04 RBC (4.30-5.90) m/uL Hgb (13.0-17.5) gm/dL Hct (39.0-53.0) % Plt Count (150-450) k/uL Neutrophils # (1.3-7.7) k/uL Lymphocytes # (1.0-4.8) k/uL PT 27.1 H (9.0-12.0) sec INR 2.7 H (<1.2) APTT 41.8 H (22.0-30.0) sec Fibrinogen (200-500) mg/dL ABG pH (7.35-7.45) ABG pCO2 (35-45) mmHg ABG pO2 (83-108) mmHg ABG Total CO2 (19-24) mmol/L ABG O2 Saturation (94-97) % ABG Hematocrit (34.0-46.0) % ABG Ionized Calcium (4.5-5.3) mg/dL Hemoglobin (13.0-17.5) gm/dL Chloride (98-107) mmol/L BUN (9-20) mg/dL Creatinine (0.66-1.25) mg/dL Glucose (74-99) mg/dL POC Glucose (mg/dL) 121 H 161 H (75-99) mg/dL Calcium (8.4-10.2) mg/dL Magnesium (1.6-2.3) mg/dL AST (17-59) U/L Alkaline Phosphatase (38-126) U/L Total Protein (6.3-8.2) g/dL Albumin (3.5-5.0) g/dL Crossmatch Assessment and Plan Assessment: Postop day #1, status post mitral valve replacement, tricuspid valve repair, and single-vessel bypass grafting, saphenous vein graft to OM. Routine postoperative ventilator management, with successful extubation on 07/28/2021. History of congestive heart failure. History of valvular heart disease, with previous mitral valve repair, with a MitraClip. Coronary artery disease. History of hyperlipidemia. History of renal insufficiency. Multiple medical problems and comorbidities. Plan: Plan dated 07/28/2021. The patient just arrived back to the intensive care unit. We'll await the chest x-ray in the blood gases. Additional recommendations and suggestions are forthcoming. The patient is currently on updrafts every 4 [id number]. We will continue to follow the patient, and attempt to get the patient extubated as soon as possible. In addition, post extubation, we will continue to work with the patient, to maintain normal lung function, and prevent atelectasis, lobar collapse, pleural effusion, or pneumonia. Plan dated 07/29/2021. The patient remains on norepinephrine at 6.4 mcg/m, dopamine at 3 mcg/kg/m, insulin at 1 unit an hour, and lactated Ringer's at 50 mL an hour. The patient is also on 8 L high flow nasal O2. Chest x-ray continues to show what appears to be a loculated effusion on the right. This is not acute. The patient did receive 2 units of fresh frozen plasma, 2 units of platelets, 1 unit of blood, and albumin. The patient was extubated about 7 or so hours post leaving the operating room. The patient remains in the intensive care unit. We encourage deep breathing, coughing, and clearing her secretions. We also recommend hourly use of the incentive spirometer. Time with Patient: Greater than 30
[2021-07-29 11:07] LABS: Glucose,Whole Blood 156 mg/dL (75-99)
[2021-07-29] MEDS: LACTATED RINGERS 1,000 ML IV SCH (11:18)
[2021-07-29 12:03] LABS: Glucose,Whole Blood 149 mg/dL (75-99)
[2021-07-29 13:20] LABS: Glucose,Whole Blood 203 mg/dL (75-99)
[2021-07-29 14:22] LABS: Glucose,Whole Blood 198 mg/dL (75-99)
[2021-07-29] MEDS ORDERED: ALBUMIN HUMAN 5% 250 ML in EMPTY BAG 1 BAG IVPB STA (15:15)
[2021-07-29 15:18] LABS: Glucose,Whole Blood 160 mg/dL (75-99)
[2021-07-29 16:03] LABS: Glucose,Whole Blood 147 mg/dL (75-99)
[2021-07-29 17:06] LABS: Glucose,Whole Blood 174 mg/dL (75-99)
[2021-07-29 18:56] LABS: Glucose,Whole Blood 142 mg/dL (75-99)
[2021-07-29] MEDS ORDERED: BUMETANIDE 0.25 MG/ML 4 ML VIAL IVP STA (19:32)
[2021-07-29 19:48] LABS: ABG Base Excess -6.6 mmol/L; ABG HCO3 20 mmol/L (21-25); ABG Oxygen Saturation 91.1 % (94-97); ABG PCO2 41 mmHg (35-45); ABG PH 7.29 (7.35-7.45); ABG PO2 61 mmHg (83-108); ABG TCO2 21 mmol/L (19-24); Allen Test Performed? Yes
[2021-07-29 19:48] LABS: Glucose,Whole Blood 120 mg/dL (75-99)
[2021-07-29] MEDS: CALCIUM ACETATE 667 MG TAB PO SCH (19:52)
[2021-07-29] MEDS: ATORVASTATIN 40 MG TAB PO SCH (19:52)
[2021-07-29] MEDS: SENNOSIDES-DOCUSATE SODIUM 1 EACH TAB PO SCH (19:53)
[2021-07-29] MEDS ORDERED: SODIUM BICARB 8.4% 50 ML SYR (1 MEQ/ML) IV STA (20:02)
[2021-07-29 21:10] LABS: Glucose,Whole Blood 106 mg/dL (75-99)
[2021-07-29 21:38] LABS: Magnesium 3.1 mg/dL (1.6-2.3); Potassium 3.6 mmol/L (3.5-5.1)
[2021-07-29] MEDS ORDERED: POTASSIUM CHLORIDE ER 20 MEQ TAB.ER PO SCH (22:00)
[2021-07-29 22:56] LABS: Glucose,Whole Blood 128 mg/dL (75-99)
[2021-07-30] MEDS: ACETAMINOPHEN TAB 325 MG TAB PO PRN ×3 (00:02→20:22)
[2021-07-30] MEDS: HEPARIN SODIUM,PORCINE/PF 5,000 UNIT/0.5 ML SYRINGE SQ SCH ×3 (00:04→17:01)
[2021-07-30 00:15] LABS: Glucose,Whole Blood 148 mg/dL (75-99)
[2021-07-30 01:14] LABS: Glucose,Whole Blood 131 mg/dL (75-99)
[2021-07-30 02:47] LABS: Glucose,Whole Blood 102 mg/dL (75-99)
[2021-07-30 04:58] LABS: Glucose,Whole Blood 137 mg/dL (75-99)
[2021-07-30 05:28] LABS: Basophils % (A) 0 %; Eosinophils % (A) 0 %; HCT 21.1 % (39.0-53.0); Hypochromasia Moderate; Lymphocytes # (A) 0.4 k/uL (1.0-4.8); Lymphocytes % (A) 3 %; MCHC 31.2 g/dL (31.0-37.0); MCV 96.2 fL (80.0-100.0); Mean Platelet Volume 10.3; Monocytes # (A) 0.8 k/uL (0-1.0); Monocytes % (A) 7 %; Neutrophils # (A) 10.1 k/uL (1.3-7.7); Neutrophils % (A) 88 %; RDW 15.9 % (11.5-15.5); WBC 11.5 k/uL (3.8-10.6)
[2021-07-30 05:38] LABS: Ionized Calcium 4.9 mg/dL (4.5-5.3)
[2021-07-30 05:54] LABS: Albumin 3.1 g/dL (3.5-5.0); Calcium 7.9 mg/dL (8.4-10.2); Magnesium 2.9 mg/dL (1.6-2.3); Potassium 4.1 mmol/L (3.5-5.1); Total Bilirubin 0.9 mg/dL (0.2-1.3); Total Protein 5.1 g/dL (6.3-8.2)
[2021-07-30 05:58] LABS: Platelet Count 73 k/uL (150-450)
[2021-07-30 05:59] LABS: HGB 6.6 gm/dL (13.0-17.5)
--- NOTE | 2021-07-30 06:03 | XR ---
EXAMINATION TYPE: XR chest 1V portable DATE OF EXAM: 07/30/2021 CLINICAL HISTORY: Difficulty breathing progress study. Post open cardiac surgery. TECHNIQUE: Single AP portable upright view of the chest is obtained. COMPARISON: Chest x-ray from one day earlier and older studies. FINDINGS: Stable right internal jugular Martha-Brady catheter. Stable left-sided chest tube and mediast inal drainage catheter. Overlying sternal wires along with cardiac valvular clips are redemonstrated. Persistent cardiomegaly with atrial septal closure device. Persistent moderate to large right-sided pleural fluid collection and small left basilar pleural effu natividad with associated bibasilar opacities and mild to moderate central vascular congestion. Osseous st ructures are intact. IMPRESSION: Cardiomegaly with moderate to large size right and small size bilateral pleural fluid col lection and/or effusions with mild to moderate central vascular congestion and bibasilar opacities fa voring atelectasis along with left-sided chest tube are all redemonstrated. No significant change fro m one day earlier.
[2021-07-30 06:09] LABS: Glucose,Whole Blood 148 mg/dL (75-99)
[2021-07-30 06:55] LABS: Glucose,Whole Blood 131 mg/dL (75-99)
[2021-07-30 06:55] LABS: INR 6.5 (<1.2)
[2021-07-30] MEDS: PANTOPRAZOLE 40 MG TABLET PO SCH (07:03)
[2021-07-30] MEDS: LACTATED RINGERS 1,000 ML IV SCH (07:05)
[2021-07-30] MEDS ORDERED: BUMETANIDE 0.25 MG/ML 4 ML VIAL IVP STA (07:14)
[2021-07-30] MEDS: DOPamine DRIP 800 MG in DEXTROSE/WATER 1 250ML.BAG IV SCH (07:46)
--- NOTE | 2021-07-30 07:54 | P.PN ---
Subjective Progress Note Date: 07/30/21 Principal diagnosis: Mitral valve regurgitation, tricuspid valve regurgitation, coronary artery disease. Previous medical history of CAD with previous cardial infarction and PCI, hypertension, chronic atrial fibrillation on Coumadin for anticoagulation status post cardioversion, sick sinus syndrome [facility] permanent pacemaker placement in 2017, chronic systolic heart failure, atrial septal defect status post closure, previous MitraClip in 2019, chronic renal insufficiency, previous tobacco dependence, severe restrictive lung disease, obstructive sleep apnea, recurrent right-sided pleural effusio with previous thoracentesis x 4, remote history of pneumonia, family history of premature coronary artery disease POD #2 mitral valve replacement with 31 mm Mosaic porcine valve prosthesis, tricuspid valve repair with 30 mm MC3 band, coronary artery bypass grafting 1 with reverse saphenous vein graft to the obtuse marginal artery, endovascular vein harvest of the left greater saphenous vein, epi-aortic ultrasound, closure of the left atrial appendage, closure of ASD Postoperative acute blood loss anemia and thrombocytopenia, expected given hemodilution and cardiopulmonary bypass pump Coagulopathy, unexpected, last coumadin dose 07/22/21 The patient was seen and examined this morning sitting up in a recliner in the intensive care unit. He denies any pain or shortness of breath although his oxygen needs have increased and the patient is currently on AirVo. Currently ventricular paced at 80 bpm. Remains on IV dopamine and Levophed for blood pressure support, beta shila remains on hold. Labs and x-rays revealed this morning. Hemaglobin 6.6 this morning, INR 6.5, platelets 73,000, plavix on hold, no SQ heparin given. Urine output has remained adequate after bumex given last night. Right internal jugular [place]/Cordis, radial arterial line, mediastin al/left pleural chest tubes all remain. Per nursing patient hasn't slept all night. Objective - Vital Signs Vital signs: Vital Signs Temp 98.4 F 07/30/21 04:00 Pulse 80 07/30/21 07:00 Resp 21 07/30/21 07:00 BP 106/91 07/30/21 06:15 Pulse Ox 94 L 07/30/21 07:00 Intake & Output 07/29/21 07/30/21 07/30/21 18:59 06:59 18:59 Intake Total 3807.985 2391.789 308.328 Output Total 660 1185 25 Balance 1331.719 221.789 283.328 Weight 80 kg 82.9 kg Intake: IV 1078 818 59 Albumin Human 5% 250 ml 250 In Empty Bag 1 bag @ 250 mls/hr IVPB Q1HR PRN Rx#: [id number] CO/CI 120 110 Lactated Ringers 1,000 ml 600 600 50 @ 50 mls/hr IV .Q20H PHIL Rx#:[id number] Pressure Bags 108 108 9 Intake, IV Titration 163.719 348.789 249.328 Amount DOPamine DRIP 800 mg In 97.045 27.744 Dextrose/Water 1 250ml. bag @ 3 MCG/KG/MIN 4.168 mls/hr IV .Q24H PHIL Rx#: [id number] Insulin Regular 100 unit 33.473 14.215 4.006 In Sodium Chloride 0.9% 100 ml @ Per Protocol IV .Q0M PHIL Rx#:[id number] Norepinephrine 4 mg In 130.246 237.529 217.578 Sodium Chloride 0.9% 250 ml @ 0.05 MCG/KG/MIN 14. 116 mls/hr IV .Q18H PHIL Rx#:[id number] Oral 750 240 Output: Drainage [address] x2 200 300 Urine 270 535 25 Other: Voiding Method Indwelling Catheter Indwelling Catheter ABP, PAP, CO, CI - Last Documented Arterial Blood Pressure 101/35 Pulmonary Artery Pressure 46/12 Cardiac Output 4.6 Cardiac Index 2.5 - Exam CONSTITUTIONAL: Appears comfortable, cooperative RESPIRATORY: Lungs sounds course bilaterally. Respirations even, nonlabored. Currently on Airvo at 60L/80% with oxygen saturation 98%. Able to achieve 750 mL on incentive spirometry. Strong loose cough. CARDIOVASCULAR: S1, S2 present. Ventricular paced at 80 bpm on telemetry. Sternum stable. Palpable peripheral pulses bilaterally. No edema present. No calf pain or tenderness noted. Heart hugger in place with patient demonstrating appropriate use. Antiembolism stockings, SCDs present. GASTROINTESTINAL: Abdomen soft, nontender, nondistended. Active bowel sounds present 4 quadrants. Tolerating minimal diet. Positive belching, negative flatus GENITOURINARY: Cortes present draining clear, yellow urine. Output 125 mL after IV bumex, then 35-50 mL/hr afterward, 805 mL in last 24 hours INTEGUMENTARY: Skin is warm and dry with evidence of good perfusion. Anterior chest incision well approximated and covered with dry intact dressing. Left lower extremity EVH site well approximated without redness or drainage. NEUROLOGIC: Cranial nerves II through XII intact MUSKULOSKELETAL: Able to move all extremities, strength equal bilaterally PSYCHIATRIC: Alert and oriented to person place and time, appropriate affect, intact judgment and insight INVASIVE LINES AND TUBES: Mediastinal/left pleural chest tubes present and connected to wall suction, no air leaks present. Mediastinal tube with 210 mL serosanguineous drainage overnight, 500 mL in the last 24 hours. Left pleural chest tube with 260 mL serosanguineous drainage overnight, 600 mL in the last 24 hours. Ventricular epicardial pacemaker wire present, connected to generator, VVI mode at 80 bpm. Right internal jugular [place]/Cordis, left radial arterial line present. Last CO/CI 4.6/2.5, PA 49/13, CVP 11. - Allied health notes Allied health notes reviewed: nursing - Labs CBC & Chem 7: 07/30/21 04:55 07/30/21 04:55 Labs: Abnormal Lab Results - Last 24 Hours (Table) 07/22/21 07/29/21 07/29/21 Range/Units 08:58 07:10 08:19 WBC (3.8-10.6) k/uL RBC (4.30-5.90) m/uL Hgb (13.0-17.5) gm/dL Hct (39.0-53.0) % RDW (11.5-15.5) % Plt Count (150-450) k/uL Neutrophils # (1.3-7.7) k/uL Lymphocytes # (1.0-4.8) k/uL PT 27.1 H (9.0-12.0) sec INR 2.7 H (<1.2) APTT 41.8 H (22.0-30.0) sec ABG pH (7.35-7.45) ABG pO2 (83-108) mmHg ABG HCO3 (21-25) mmol/L ABG O2 Saturation (94-97) % Chloride (98-107) mmol/L Carbon Dioxide (22-30) mmol/L BUN (9-20) mg/dL Creatinine (0.66-1.25) mg/dL Glucose (74-99) mg/dL POC Glucose (mg/dL) 121 H (75-99) mg/dL Calcium (8.4-10.2) mg/dL Magnesium (1.6-2.3) mg/dL AST (17-59) U/L Total Protein (6.3-8.2) g/dL Albumin (3.5-5.0) g/dL Crossmatch See Detail 07/29/21 07/29/21 07/29/21 Range/Units 09:04 11:06 12:02 WBC (3.8-10.6) k/uL RBC (4.30-5.90) m/uL Hgb (13.0-17.5) gm/dL Hct (39.0-53.0) % RDW (11.5-15.5) % Plt Count (150-450) k/uL Neutrophils # (1.3-7.7) k/uL Lymphocytes # (1.0-4.8) k/uL PT (9.0-12.0) sec INR (<1.2) APTT (22.0-30.0) sec ABG pH (7.35-7.45) ABG pO2 (83-108) mmHg ABG HCO3 (21-25) mmol/L ABG O2 Saturation (94-97) % Chloride (98-107) mmol/L Carbon Dioxide (22-30) mmol/L BUN (9-20) mg/dL Creatinine (0.66-1.25) mg/dL Glucose (74-99) mg/dL POC Glucose (mg/dL) 161 H 156 H 149 H (75-99) mg/dL Calcium (8.4-10.2) mg/dL Magnesium (1.6-2.3) mg/dL AST (17-59) U/L Total Protein (6.3-8.2) g/dL Albumin (3.5-5.0) g/dL Crossmatch 07/29/21 07/29/21 07/29/21 Range/Units 13:17 14:21 15:16 WBC (3.8-10.6) k/uL RBC (4.30-5.90) m/uL Hgb (13.0-17.5) gm/dL Hct (39.0-53.0) % RDW (11.5-15.5) % Plt Count (150-450) k/uL Neutrophils # (1.3-7.7) k/uL Lymphocytes # (1.0-4.8) k/uL PT (9.0-12.0) sec INR (<1.2) APTT (22.0-30.0) sec ABG pH (7.35-7.45) ABG pO2 (83-108) mmHg ABG HCO3 (21-25) mmol/L ABG O2 Saturation (94-97) % Chloride (98-107) mmol/L Carbon Dioxide (22-30) mmol/L BUN (9-20) mg/dL Creatinine (0.66-1.25) mg/dL Glucose (74-99) mg/dL POC Glucose (mg/dL) 203 H 198 H 160 H (75-99) mg/dL Calcium (8.4-10.2) mg/dL Magnesium (1.6-2.3) mg/dL AST (17-59) U/L Total Protein (6.3-8.2) g/dL Albumin (3.5-5.0) g/dL Crossmatch 07/29/21 07/29/21 07/29/21 Range/Units 16:01 17:05 18:54 WBC (3.8-10.6) k/uL RBC (4.30-5.90) m/uL Hgb (13.0-17.5) gm/dL Hct (39.0-53.0) % RDW (11.5-15.5) % Plt Count (150-450) k/uL Neutrophils # (1.3-7.7) k/uL Lymphocytes # (1.0-4.8) k/uL PT (9.0-12.0) sec INR (<1.2) APTT (22.0-30.0) sec ABG pH (7.35-7.45) ABG pO2 (83-108) mmHg ABG HCO3 (21-25) mmol/L ABG O2 Saturation (94-97) % Chloride (98-107) mmol/L Carbon Dioxide (22-30) mmol/L BUN (9-20) mg/dL Creatinine (0.66-1.25) mg/dL Glucose (74-99) mg/dL POC Glucose (mg/dL) 147 H 174 H 142 H (75-99) mg/dL Calcium (8.4-10.2) mg/dL Magnesium (1.6-2.3) mg/dL AST (17-59) U/L Total Protein (6.3-8.2) g/dL Albumin (3.5-5.0) g/dL Crossmatch 07/29/21 07/29/21 07/29/21 Range/Units 19:37 19:46 21:05 WBC (3.8-10.6) k/uL RBC (4.30-5.90) m/uL Hgb (13.0-17.5) gm/dL Hct (39.0-53.0) % RDW (11.5-15.5) % Plt Count (150-450) k/uL Neutrophils # (1.3-7.7) k/uL Lymphocytes # (1.0-4.8) k/uL PT (9.0-12.0) sec INR (<1.2) APTT (22.0-30.0) sec ABG pH 7.29 L (7.35-7.45) ABG pO2 61 L (83-108) mmHg ABG HCO3 20 L (21-25) mmol/L ABG O2 Saturation 91.1 L (94-97) % Chloride (98-107) mmol/L Carbon Dioxide (22-30) mmol/L BUN (9-20) mg/dL Creatinine (0.66-1.25) mg/dL Glucose (74-99) mg/dL POC Glucose (mg/dL) 120 H (75-99) mg/dL Calcium (8.4-10.2) mg/dL Magnesium 3.1 H (1.6-2.3) mg/dL AST (17-59) U/L Total Protein (6.3-8.2) g/dL Albumin (3.5-5.0) g/dL Crossmatch 07/29/21 07/29/21 07/30/21 Range/Units 21:08 22:55 00:14 WBC (3.8-10.6) k/uL RBC (4.30-5.90) m/uL Hgb (13.0-17.5) gm/dL Hct (39.0-53.0) % RDW (11.5-15.5) % Plt Count (150-450) k/uL Neutrophils # (1.3-7.7) k/uL Lymphocytes # (1.0-4.8) k/uL PT (9.0-12.0) sec INR (<1.2) APTT (22.0-30.0) sec ABG pH (7.35-7.45) ABG pO2 (83-108) mmHg ABG HCO3 (21-25) mmol/L ABG O2 Saturation (94-97) % Chloride (98-107) mmol/L Carbon Dioxide (22-30) mmol/L BUN (9-20) mg/dL Creatinine (0.66-1.25) mg/dL Glucose (74-99) mg/dL POC Glucose (mg/dL) 106 H 128 H 148 H (75-99) mg/dL Calcium (8.4-10.2) mg/dL Magnesium (1.6-2.3) mg/dL AST (17-59) U/L Total Protein (6.3-8.2) g/dL Albumin (3.5-5.0) g/dL Crossmatch 07/30/21 07/30/21 07/30/21 Range/Units 01:12 02:46 04:55 WBC 11.5 H (3.8-10.6) k/uL RBC 2.20 L (4.30-5.90) m/uL Hgb 6.6 L* (13.0-17.5) gm/dL Hct 21.1 L (39.0-53.0) % RDW 15.9 H (11.5-15.5) % Plt Count 73 L (150-450) k/uL Neutrophils # 10.1 H (1.3-7.7) k/uL Lymphocytes # 0.4 L (1.0-4.8) k/uL PT (9.0-12.0) sec INR (<1.2) APTT (22.0-30.0) sec ABG pH (7.35-7.45) ABG pO2 (83-108) mmHg ABG HCO3 (21-25) mmol/L ABG O2 Saturation (94-97) % Chloride (98-107) mmol/L Carbon Dioxide (22-30) mmol/L BUN (9-20) mg/dL Creatinine (0.66-1.25) mg/dL Glucose (74-99) mg/dL POC Glucose (mg/dL) 131 H 102 H (75-99) mg/dL Calcium (8.4-10.2) mg/dL Magnesium (1.6-2.3) mg/dL AST (17-59) U/L Total Protein (6.3-8.2) g/dL Albumin (3.5-5.0) g/dL Crossmatch 07/30/21 07/30/21 07/30/21 Range/Units 04:55 04:56 06:00 WBC (3.8-10.6) k/uL RBC (4.30-5.90) m/uL Hgb (13.0-17.5) gm/dL Hct (39.0-53.0) % RDW (11.5-15.5) % Plt Count (150-450) k/uL Neutrophils # (1.3-7.7) k/uL Lymphocytes # (1.0-4.8) k/uL PT 66.0 H (9.0-12.0) sec INR 6.5 H* (<1.2) APTT (22.0-30.0) sec ABG pH (7.35-7.45) ABG pO2 (83-108) mmHg ABG HCO3 (21-25) mmol/L ABG O2 Saturation (94-97) % Chloride 108 H (98-107) mmol/L Carbon Dioxide 20 L (22-30) mmol/L BUN 40 H (9-20) mg/dL Creatinine 2.01 H (0.66-1.25) mg/dL Glucose 119 H (74-99) mg/dL POC Glucose (mg/dL) 137 H (75-99) mg/dL Calcium 7.9 L (8.4-10.2) mg/dL Magnesium 2.9 H (1.6-2.3) mg/dL AST 77 H (17-59) U/L Total Protein 5.1 L (6.3-8.2) g/dL Albumin 3.1 L (3.5-5.0) g/dL Crossmatch 07/30/21 07/30/21 Range/Units 06:08 06:53 WBC (3.8-10.6) k/uL RBC (4.30-5.90) m/uL Hgb (13.0-17.5) gm/dL Hct (39.0-53.0) % RDW (11.5-15.5) % Plt Count (150-450) k/uL Neutrophils # (1.3-7.7) k/uL Lymphocytes # (1.0-4.8) k/uL PT (9.0-12.0) sec INR (<1.2) APTT (22.0-30.0) sec ABG pH (7.35-7.45) ABG pO2 (83-108) mmHg ABG HCO3 (21-25) mmol/L ABG O2 Saturation (94-97) % Chloride (98-107) mmol/L Carbon Dioxide (22-30) mmol/L BUN (9-20) mg/dL Creatinine (0.66-1.25) mg/dL Glucose (74-99) mg/dL POC Glucose (mg/dL) 148 H 131 H (75-99) mg/dL Calcium (8.4-10.2) mg/dL Magnesium (1.6-2.3) mg/dL AST (17-59) U/L Total Protein (6.3-8.2) g/dL Albumin (3.5-5.0) g/dL Crossmatch - Imaging and Cardiology Chest x-ray: report reviewed, image reviewed Assessment and Plan Assessment: 1. Mitral valve regurgitation, previous MitraClip in 2019, status post post mitral valve replacement 2. Tricuspid valve regurgitation, status post tricuspid valve repair 3. Coronary artery disease with previous myocardial infarction and PCI, status post 1 vessel CABG 4. History of hypertension, currently hypotensive on levo and dopamine 5. Chronic atrial fibrillation on Coumadin for anticoagulation status post cardioversion, status post closure of the left atrial appendage 6. Sick sinus syndrome status post [facility] permanent pacemaker placement in 2017 7. Chronic systolic heart failure 8. Atrial septal defect status post closure 9. Chronic renal insufficiency 10. Previous tobacco dependence 11. Severe restrictive lung disease, preoperative FEV1 47% of predicted 12. Recurrent right-sided pleural effusion, patient had right sided thoracentesis twice in 2019 and twice in 2020 13. Obstructive sleep apnea 14. Remote history of pneumonia 15. Family history of premature coronary artery disease 16. Postoperative acute blood loss anemia and thrombocytopenia, expected 17. Coagulopathy, unexpected Plan: 1. Continue low-dose aspirin, statin. Will hold Plavix and beta shila for now, we will restart when able 2. Wean levo, dopamine as tolerated 3. Wean O2 as tolerated. Encourage incentive spirometry use 10 times every h our while awake. Bronchodilators per pulmonology. 4. Increase activity as tolerated. PT/OT/cardiac rehab consulted 5. Will monitor daily labs and x-rays. Hit panel sent. Will give 1 unit PRBCs, 2 units FFP, 2 mg IVP bumex. Recheck INR at noon 6. GI/DVT prophylaxis. Hold heparin subcu for platelet count less than 100,000 7. Insulin management per primary care service. Patient is not diabetic, preoperative hemoglobin A1c 5.8% 8. Pain control current medication regimen 9. Continue [place]/Cordis, arterial line for another 24 hours 10. Will discontinue mediastinal chest tube, continue left pleural chest tube for another [address] right sided chest tube/pigtail once coagulo zain is corrected 11. Continue Cortes catheter for another 24 hours for strict accurate intake and output. Daily weights 12. More recommendations to follow based on patient's progress
[2021-07-30] MEDS ORDERED: PHYTONADIONE 2 MG in SODIUM CHLORIDE 0.9% 50 ML IVPB STA (08:00)
[2021-07-30 08:13] LABS: Glucose,Whole Blood 126 mg/dL (75-99)
[2021-07-30] MEDS: allopurinoL 100 MG TAB PO SCH (08:19)
[2021-07-30] MEDS: FOLIC ACID 1 MG TAB PO SCH (08:19)
[2021-07-30] MEDS: ASCORBIC ACID 500 MG TAB PO SCH (08:19)
[2021-07-30] MEDS: FERROUS SULFATE 325 MG TAB PO SCH (08:19)
[2021-07-30] MEDS: ASPIRIN 81 MG PO SCH (08:19)
[2021-07-30] MEDS: MUPIROCIN 2% OINT 22 GM TUBE NASAL SCH ×2 (08:26→20:23)
[2021-07-30] MEDS: IPRATROPIUM-ALBUTEROL 3 ML NEB INHALATION SCH ×4 (08:42→19:44)
--- NOTE | 2021-07-30 09:06 | P.PN ---
Subjective HISTORY OF PRESENTING ILLNESS Patient is pleasant 81-year-old male with history of coronary artery disease status post PCI of the RCA and circumflex, CKD, persistent atrial fibrillation, sick sinus syndrome status post permanent pacemaker, pulmonary hypertension, systolic heart failure, PFO status post PFO closure, mitral regurgitation and tricuspid regurgitation status post initial mitral clip. He follows in the office with Dr. Diego. He has been having issues with recurrent mainly left- sided heart failure with recurrent pleural effusions requiring thoracentesis. Initially he had a mitral clip performed which reduce the severe mitral in sufficiency from 4+ to 2-3+ regurgitation however has had recurrent admissions for heart failure. Therefore workup was performed which showed 3+ mitral regurgitation as well as severe tricuspid regurgitation and heart catheterization showed obstructive circumflex disease. Therefore patient underwent mitral valve replacement, tricuspid valve repair and CABG 1 with SVG to OM as well as closure of ASD from the mitral clip and closure of left atrial appendage on 07/28/2020. Patient seen and examined 07/29. He denies any chest pain or pressure. He states that overall he is feeling "okay". He was able to tolerate clear liquid this morning. He has pacemaker set at 80, current cardiac index in the 2.4-3.1 range. PA pressures around 31/35 with a CVP of 15. He is getting lactated Ringer's at 50 mL per hour. He is still on low dose of norepinephrine as well as dopamine. His platelets decreased to 80 and therefore heparin and Plavix have been held for today. Hemoglobin 7.5 today 07/30 Patient seen and examined. Patient's creatinine worsening and worsened respiratory status. Chest x-ray shows increased right pleural effusion. He has remained on norepinephrine as well as dopamine with borderline blood pressures. Cardiac output 5.3, cardiac index 2.9 this morning. Admits to mild appetite. He was given Bumex last night. PHYSICAL EXAMINATION Vital signs reviewed. CONSTITUTIONAL: No apparent distress, ill appearing HEENT: Head is normocephalic. Pupils are equal, round. Sclerae anicteric. Mucous membranes of the mouth are moist. No JVD. No carotid bruit. CHEST EXAMINATION: Lungs are clear to auscultation. Decreased breath sounds bilaterally HEART EXAMINATION: Regular rate and rhythm. S1, S2 heard. No murmurs, gallops or rub. ABDOMEN: Soft, nontender. Positive bowel sounds. EXTREMITIES: 2+ peripheral pulses, no lower extremity edema and no calf tenderness. NEUROLOGIC EXAMINATION: Patient is awake, alert and oriented x3. ASSESSMENT 1. S/p mitral valve replacement, tricuspid repair and one-vessel CABG SVG to OM 07/28, closure of ASD 2. History of mitral insufficiency status post initial mitral clip with continued preoperative mitral insufficiency 3. Coronary artery disease with prior history of PCI and most recent CABG 4. Permanent atrial fibrillation 5. Sick sinus syndrome status post permanent pacemaker 6. Pulmonary hypertension group 2 7. Postoperative anemia 8. Thrombocytopenia 9. Chronic systolic heart failure, mildly elevated CVP and PA pressures PLAN Patient was somewhat worsening kidney function likely related to ATN from surgery. Appears volume overloaded with elevated CVP and PA pressures. Cardiac output appears relatively stable and wean inotropes and vasopressors as able. He does appear volume overloaded and agree with Bumex. Monitor response of blood transfusion. Monitor for any bleeding. Continue supportive care. Progn osis guarded. Objective - Vital Signs Vital signs: Vital Signs Temp 97.9 F 07/30/21 08:56 Pulse 80 07/30/21 08:56 Resp 18 07/30/21 08:56 BP 112/85 07/30/21 08:56 Pulse Ox 90 L 07/30/21 08:56 Intake & Output 07/29/21 07/30/21 07/30/21 18:59 06:59 18:59 Intake Total 6863.370 8329.789 411.243 Output Total 660 1185 115 Balance 1331.719 221.789 296.243 Weight 80 kg 82.9 kg Intake: IV 1078 818 138 Albumin Human 5% 250 ml 250 In Empty Bag 1 bag @ 250 mls/hr IVPB Q1HR PRN Rx#: [id number] CO/CI 120 110 20 Lactated Ringers 1,000 ml 600 600 100 @ 50 mls/hr IV .Q20H PHIL Rx#:[id number] Pressure Bags 108 108 18 Intake, IV Titration 163.719 348.789 273.243 Amount DOPamine DRIP 800 mg In 97.045 27.744 Dextrose/Water 1 250ml. bag @ 3 MCG/KG/MIN 4.168 mls/hr IV .Q24H PHIL Rx#: [id number] Insulin Regular 100 unit 33.473 14.215 5.900 In Sodium Chloride 0.9% 100 ml @ Per Protocol IV .Q0M PHIL Rx#:[id number] Norepinephrine 4 mg In 130.246 237.529 239.599 Sodium Chloride 0.9% 250 ml @ 0.05 MCG/KG/MIN 14. 116 mls/hr IV .Q18H PHIL Rx#:[id number] Oral 750 240 Blood Product 0 Rc As-1 Unit 0 [id number] Output: Drainage [address] x2 200 300 10 Urine 270 535 65 Other: Voiding Method Indwelling Catheter Indwelling Catheter ABP, PAP, CO, CI - Last Documented Arterial Blood Pressure 108/40 Pulmonary Artery Pressure 53/17 Cardiac Output 5.3 Cardiac Index 2.9 - Labs CBC & Chem 7: 07/30/21 04:55 07/30/21 04:55 Labs: Abnormal Lab Results - Last 24 Hours (Table) 07/22/21 07/29/21 07/29/21 Range/Units 08:58 09:04 11:06 WBC (3.8-10.6) k/uL RBC (4.30-5.90) m/uL Hgb (13.0-17.5) gm/dL Hct (39.0-53.0) % RDW (11.5-15.5) % Plt Count (150-450) k/uL Neutrophils # (1.3-7.7) k/uL Lymphocytes # (1.0-4.8) k/uL PT (9.0-12.0) sec INR (<1.2) ABG pH (7.35-7.45) ABG pO2 (83-108) mmHg ABG HCO3 (21-25) mmol/L ABG O2 Saturation (94-97) % Chloride (98-107) mmol/L Carbon Dioxide (22-30) mmol/L BUN (9-20) mg/dL Creatinine (0.66-1.25) mg/dL Glucose (74-99) mg/dL POC Glucose (mg/dL) 161 H 156 H (75-99) mg/dL Calcium (8.4-10.2) mg/dL Magnesium (1.6-2.3) mg/dL AST (17-59) U/L Total Protein (6.3-8.2) g/dL Albumin (3.5-5.0) g/dL Crossmatch See Detail 07/29/21 07/29/21 07/29/21 Range/Units 12:02 13:17 14:21 WBC (3.8-10.6) k/uL RBC (4.30-5.90) m/uL Hgb (13.0-17.5) gm/dL Hct (39.0-53.0) % RDW (11.5-15.5) % Plt Count (150-450) k/uL Neutrophils # (1.3-7.7) k/uL Lymphocytes # (1.0-4.8) k/uL PT (9.0-12.0) sec INR (<1.2) ABG pH (7.35-7.45) ABG pO2 (83-108) mmHg ABG HCO3 (21-25) mmol/L ABG O2 Saturation (94-97) % Chloride (98-107) mmol/L Carbon Dioxide (22-30) mmol/L BUN (9-20) mg/dL Creatinine (0.66-1.25) mg/dL Glucose (74-99) mg/dL POC Glucose (mg/dL) 149 H 203 H 198 H (75-99) mg/dL Calcium (8.4-10.2) mg/dL Magnesium (1.6-2.3) mg/dL AST (17-59) U/L Total Protein (6.3-8.2) g/dL Albumin (3.5-5.0) g/dL Crossmatch 07/29/21 07/29/21 07/29/21 Range/Units 15:16 16:01 17:05 WBC (3.8-10.6) k/uL RBC (4.30-5.90) m/uL Hgb (13.0-17.5) gm/dL Hct (39.0-53.0) % RDW (11.5-15.5) % Plt Count (150-450) k/uL Neutrophils # (1.3-7.7) k/uL Lymphocytes # (1.0-4.8) k/uL PT (9.0-12.0) sec INR (<1.2) ABG pH (7.35-7.45) ABG pO2 (83-108) mmHg ABG HCO3 (21-25) mmol/L ABG O2 Saturation (94-97) % Chloride (98-107) mmol/L Carbon Dioxide (22-30) mmol/L BUN (9-20) mg/dL Creatinine (0.66-1.25) mg/dL Glucose (74-99) mg/dL POC Glucose (mg/dL) 160 H 147 H 174 H (75-99) mg/dL Calcium (8.4-10.2) mg/dL Magnesium (1.6-2.3) mg/dL AST (17-59) U/L Total Protein (6.3-8.2) g/dL Albumin (3.5-5.0) g/dL Crossmatch 07/29/21 07/29/21 07/29/21 Range/Units 18:54 19:37 19:46 WBC (3.8-10.6) k/uL RBC (4.30-5.90) m/uL Hgb (13.0-17.5) gm/dL Hct (39.0-53.0) % RDW (11.5-15.5) % Plt Count (150-450) k/uL Neutrophils # (1.3-7.7) k/uL Lymphocytes # (1.0-4.8) k/uL PT (9.0-12.0) sec INR (<1.2) ABG pH 7.29 L (7.35-7.45) ABG pO2 61 L (83-108) mmHg ABG HCO3 20 L (21-25) mmol/L ABG O2 Saturation 91.1 L (94-97) % Chloride (98-107) mmol/L Carbon Dioxide (22-30) mmol/L BUN (9-20) mg/dL Creatinine (0.66-1.25) mg/dL Glucose (74-99) mg/dL POC Glucose (mg/dL) 142 H 120 H (75-99) mg/dL Calcium (8.4-10.2) mg/dL Magnesium (1.6-2.3) mg/dL AST (17-59) U/L Total Protein (6.3-8.2) g/dL Albumin (3.5-5.0) g/dL Crossmatch 0307/29/21 07/29/21 Range/Units 21:05 21:08 22:55 WBC (3.8-10.6) k/uL RBC (4.30-5.90) m/uL Hgb (13.0-17.5) gm/dL Hct (39.0-53.0) % RDW (11.5-15.5) % Plt Count (150-450) k/uL Neutrophils # (1.3-7.7) k/uL Lymphocytes # (1.0-4.8) k/uL PT (9.0-12.0) sec INR (<1.2) ABG pH (7.35-7.45) ABG pO2 (83-108) mmHg ABG HCO3 (21-25) mmol/L ABG O2 Saturation (94-97) % Chloride (98-107) mmol/L Carbon Dioxide (22-30) mmol/L BUN (9-20) mg/dL Creatinine (0.66-1.25) mg/dL Glucose (74-99) mg/dL POC Glucose (mg/dL) 106 H 128 H (75-99) mg/dL Calcium (8.4-10.2) mg/dL Magnesium 3.1 H (1.6-2.3) mg/dL AST (17-59) U/L Total Protein (6.3-8.2) g/dL Albumin (3.5-5.0) g/dL Crossmatch 07/30/21 07/30/21 07/30/21 Range/Units 00:14 01:12 02:46 WBC (3.8-10.6) k/uL RBC (4.30-5.90) m/uL Hgb (13.0-17.5) gm/dL Hct (39.0-53.0) % RDW (11.5-15.5) % Plt Count (150-450) k/uL Neutrophils # (1.3-7.7) k/uL Lymphocytes # (1.0-4.8) k/uL PT (9.0-12.0) sec INR (<1.2) ABG pH (7.35-7.45) ABG pO2 (83-108) mmHg ABG HCO3 (21-25) mmol/L ABG O2 Saturation (94-97) % Chloride (98-107) mmol/L Carbon Dioxide (22-30) mmol/L BUN (9-20) mg/dL Creatinine (0.66-1.25) mg/dL Glucose (74-99) mg/dL POC Glucose (mg/dL) 148 H 131 H 102 H (75-99) mg/dL Calcium (8.4-10.2) mg/dL Magnesium (1.6-2.3) mg/dL AST (17-59) U/L Total Protein (6.3-8.2) g/dL Albumin (3.5-5.0) g/dL Crossmatch 07/30/21 07/30/21 07/30/21 Range/Units 04:55 04:55 04:56 WBC 11.5 H (3.8-10.6) k/uL RBC 2.20 L (4.30-5.90) m/uL Hgb 6.6 L* (13.0-17.5) gm/dL Hct 21.1 L (39.0-53.0) % RDW 15.9 H (11.5-15.5) % Plt Count 73 L (150-450) k/uL Neutrophils # 10.1 H (1.3-7.7) k/uL Lymphocytes # 0.4 L (1.0-4.8) k/uL PT (9.0-12.0) sec INR (<1.2) ABG pH (7.35-7.45) ABG pO2 (83-108) mmHg ABG HCO3 (21-25) mmol/L ABG O2 Saturation (94-97) % Chloride 108 H (98-107) mmol/L Carbon Dioxide 20 L (22-30) mmol/L BUN 40 H (9-20) mg/dL Creatinine 2.01 H (0.66-1.25) mg/dL Glucose 119 H (74-99) mg/dL POC Glucose (mg/dL) 137 H (75-99) mg/dL Calcium 7.9 L (8.4-10.2) mg/dL Magnesium 2.9 H (1.6-2.3) mg/dL AST 77 H (17-59) U/L Total Protein 5.1 L (6.3-8.2) g/dL Albumin 3.1 L (3.5-5.0) g/dL Crossmatch 07/30/21 07/30/21 07/30/21 Range/Units 06:00 06:08 06:53 WBC (3.8-10.6) k/uL RBC (4.30-5.90) m/uL Hgb (13.0-17.5) gm/dL Hct (39.0-53.0) % RDW (11.5-15.5) % Plt Count (150-450) k/uL Neutrophils # (1.3-7.7) k/uL Lymphocytes # (1.0-4.8) k/uL PT 66.0 H (9.0-12.0) sec INR 6.5 H* (<1.2) ABG pH (7.35-7.45) ABG pO2 (83-108) mmHg ABG HCO3 (21-25) mmol/L ABG O2 Saturation (94-97) % Chloride (98-107) mmol/L Carbon Dioxide (22-30) mmol/L BUN (9-20) mg/dL Creatinine (0.66-1.25) mg/dL Glucose (74-99) mg/dL POC Glucose (mg/dL) 148 H 131 H (75-99) mg/dL Calcium (8.4-10.2) mg/dL Magnesium (1.6-2.3) mg/dL AST (17-59) U/L Total Protein (6.3-8.2) g/dL Albumin (3.5-5.0) g/dL Crossmatch 07/30/21 Range/Units 08:11 WBC (3.8-10.6) k/uL RBC (4.30-5.90) m/uL Hgb (13.0-17.5) gm/dL Hct (39.0-53.0) % RDW (11.5-15.5) % Plt Count (150-450) k/uL Neutrophils # (1.3-7.7) k/uL Lymphocytes # (1.0-4.8) k/uL PT (9.0-12.0) sec INR (<1.2) ABG pH (7.35-7.45) ABG pO2 (83-108) mmHg ABG HCO3 (21-25) mmol/L ABG O2 Saturation (94-97) % Chloride (98-107) mmol/L Carbon Dioxide (22-30) mmol/L BUN (9-20) mg/dL Creatinine (0.66-1.25) mg/dL Glucose (74-99) mg/dL POC Glucose (mg/dL) 126 H (75-99) mg/dL Calcium (8.4-10.2) mg/dL Magnesium (1.6-2.3) mg/dL AST (17-59) U/L Total Protein (6.3-8.2) g/dL Albumin (3.5-5.0) g/dL Crossmatch
--- NOTE | 2021-07-30 10:22 | P.PN ---
Subjective Progress Note Date: 07/30/21 Principal diagnosis: Status post mitral valve replacement, tricuspid valve repair, and single-vessel bypass surgery. Pulmonary consult dated 07/28/2021. 81-year-old male, that is seen in room 251, postop day #0, status post mitral valve replacement, tricuspid valve repair, and single-vessel bypass grafting, SVG to OM. The patient is seen in the intensive care unit. The patient is on the ventilator, with vent settings of volume assist control, rate of 14, tidal volume 500, FiO2 100%, and PEEP of 5. Arterial blood gases are currently pending. Blood gases in the operating room show pO2 of 97, pCO2 41, and pH is 7.37. His most recent cardiac output was 4.9 with index of 2.6. The patient was on norepinephrine at 5 g a minute and nitroglycerin at 5 mcg/m. The patien t received 2 units of platelets, 2 units of fresh frozen plasma, and 2 500 bags of albumin. Estimated blood loss was 3000 mL. Additional labs, and x-ray is currently pending. The patient has a history of chronic heart failure, and renal insufficiency, among other things. Progress note dated 07/29/2021. This is a 81-year-old male, seen in room 251. He's postop day #1, status post mitral valve replacement, tricuspid valve repair, and single-vessel bypass grafting, SVG to obtuse marginal. The patient was extubated yesterday after about 7 to 7.5 hours. He's currently on 8 L high flow nasal O2. He is getting lactated Ringer's at 50 mL an hour, norepinephrine at 6.4 mcg/m, dopamine at 3 m cg/kg/m, and insulin at 1 unit an hour. White count 9.5, hemoglobin 7.5, hematocrit 23.9, and platelet count 80,000. The patient's PTT was 41.8. Sodium 144, potassium 4.2, chlorides 113, CO2 22, anion gap 9, BUN 37, creatinine 1.46. Albumin is 3.2. Chest x-ray shows some atelectasis at the left lung base, and loculated pleural effusion on the right side. Postsurgical changes are also noted. Progress note dated 07/30/2021. 81-year-old male, again seen in room 251. The patient is postop day #2, status post mitral valve replacement, tricuspid valve repair, and single-vessel bypass grafting, SVG to obtuse marginal. The patient is currently on AIRVO at 60 L/m with an FiO2 of 80%. The right-sided effusion, appears worse on today's chest x-ray. The patient's on lactated Ringer's at 50 mL an hour, dopamine at 3 mcg/kg/m, norepinephrine at 5 mcg/m, and insulin drip at 1.5 units an hour. I did speak to Dr. Collado, about what to do next for the right sided pleural effusion. He was can give the patient some vitamin K and fresh frozen plasma, and do a chest tube placement for a pigtail catheter placement. I did offer to do thoracentesis if his coagulopathy is reversed. Final decision was not made. White count 11.5, hemoglobin 6.6, hematocrit 21.1, and platelet count 80,000. PTT is 66, INR is 6.5. Sodium 137, potassium 4.1, chlorides 108, CO2 20, BUN 40, creatinine 2.01. Albumin 3.1. Chest x-ray shows cardiomegaly, postoperative changes, and a worsening right-sided effusion. Objective - Vital Signs Vital signs: Vital Signs Temp 98.2 F 07/30/21 10:06 Pulse 80 07/30/21 10:06 Resp 17 07/30/21 10:06 BP 112/67 07/30/21 10:06 Pulse Ox 88 L 07/30/21 10:06 Intake & Output 07/29/21 07/30/21 07/30/21 18:59 06:59 18:59 Intake Total 8292.241 3639.789 1117.148 Output Total 660 1185 185 Balance 1331.719 221.789 932.148 Weight 80 kg 82.9 kg Intake: IV 1078 818 216 Albumin Human 5% 250 ml 250 In Empty Bag 1 bag @ 250 mls/hr IVPB Q1HR PRN Rx#: [id number] CO/CI 120 110 20 Lactated Ringers 1,000 ml 600 600 160 @ 20 mls/hr IV .Q24H PHIL Rx#:[id number] Pressure Bags 108 108 36 Intake, IV Titration 163.719 348.789 281.148 Amount DOPamine DRIP 800 mg In 97.045 27.744 Dextrose/Water 1 250ml. bag @ 3 MCG/KG/MIN 4.168 mls/hr IV .Q24H PHIL Rx#: [id number] Insulin Regular 100 unit 33.473 14.215 5.900 In Sodium Chloride 0.9% 100 ml @ Per Protocol IV .Q0M PHIL Rx#:[id number] Norepinephrine 4 mg In 130.246 237.529 247.504 Sodium Chloride 0.9% 250 ml @ 0.05 MCG/KG/MIN 14. 116 mls/hr IV .Q18H PHIL Rx#:[id number] Oral 750 240 Blood Product 620 Ffp 24 Pher Acda Cnt1 0 Unit [id number] Rc As-1 Unit 310 [id number] Output: Drainage [address] x2 200 300 10 Urine 270 535 135 Other: Voiding Method Indwelling Catheter Indwelling Catheter Indwelling Catheter ABP, PAP, CO, CI - Last Documented Arterial Blood Pressure 116/42 Pulmonary Artery Pressure 57/18 Cardiac Output 5.3 Cardiac Index 2.9 - Exam No acute distress, sitting up in the chair, currently on AIRVO. HEENT examination is grossly unremarkable. Neck supple. Full range of motion. No adenopathy thyromegaly or neck vein di stention. Cardiovascular examination reveals regular rhythm rate. S1-S2 normal. No S3 or S4. No discernible murmur noted. Heart rate 80 bpm Lungs reveal mostly clear breath sounds. Breath sounds are equal bilaterally. Mild scattered rhonchi are noted. No wheezes or crackles. Saturations are 88 to 90 %. Abdomen soft, without bowel sounds. Extremities are intact. No cyanosis clubbing or edema. Skin is without rash or lesion. Neurologic examination is brief but nonfocal. - Labs CBC & Chem 7: 07/30/21 04:55 07/30/21 04:55 Labs: Abnormal Lab Results - Last 24 Hours (Table) 07/22/21 07/29/21 07/29/21 Range/Units 08:58 11:06 12:02 WBC (3.8-10.6) k/uL RBC (4.30-5.90) m/uL Hgb (13.0-17.5) gm/dL Hct (39.0-53.0) % RDW (11.5-15.5) % Plt Count (150-450) k/uL Neutrophils # (1.3-7.7) k/uL Lymphocytes # (1.0-4.8) k/uL PT (9.0-12.0) sec INR (<1.2) ABG pH (7.35-7.45) ABG pO2 (83-108) mmHg ABG HCO3 (21-25) mmol/L ABG O2 Saturation (94-97) % Chloride (98-107) mmol/L Carbon Dioxide (22-30) mmol/L BUN (9-20) mg/dL Creatinine (0.66-1.25) mg/dL Glucose (74-99) mg/dL POC Glucose (mg/dL) 156 H 149 H (75-99) mg/dL Calcium (8.4-10.2) mg/dL Magnesium (1.6-2.3) mg/dL AST (17-59) U/L Total Protein (6.3-8.2) g/dL Albumin (3.5-5.0) g/dL Crossmatch See Detail 07/29/21 07/29/21 07/29/21 Range/Units 13:17 14:21 15:16 WBC (3.8-10.6) k/uL RBC (4.30-5.90) m/uL Hgb (13.0-17.5) gm/dL Hct (39.0-53.0) % RDW (11.5-15.5) % Plt Count (150-450) k/uL Neutrophils # (1.3-7.7) k/uL Lymphocytes # (1.0-4.8) k/uL PT (9.0-12.0) sec INR (<1.2) ABG pH (7.35-7.45) ABG pO2 (83-108) mmHg ABG HCO3 (21-25) mmol/L ABG O2 Saturation (94-97) % Chloride (98-107) mmol/L Carbon Dioxide (22-30) mmol/L BUN (9-20) mg/dL Creatinine (0.66-1.25) mg/dL Glucose (74-99) mg/dL POC Glucose (mg/dL) 203 H 198 H 160 H (75-99) mg/dL Calcium (8.4-10.2) mg/dL Magnesium (1.6-2.3) mg/dL AST (17-59) U/L Total Protein (6.3-8.2) g/dL Albumin (3.5-5.0) g/dL Crossmatch 07/29/21 07/29/21 07/29/21 Range/Units 16:01 17:05 18:54 WBC (3.8-10.6) k/uL RBC (4.30-5.90) m/uL Hgb (13.0-17.5) gm/dL Hct (39.0-53.0) % RDW (11.5-15.5) % Plt Count (150-450) k/uL Neutrophils # (1.3-7.7) k/uL Lymphocytes # (1.0-4.8) k/uL PT (9.0-12.0) sec INR (<1.2) ABG pH (7.35-7.45) ABG pO2 (83-108) mmHg ABG HCO3 (21-25) mmol/L ABG O2 Saturation (94-97) % Chloride (98-107) mmol/L Carbon Dioxide (22-30) mmol/L BUN (9-20) mg/dL Creatinine (0.66-1.25) mg/dL Glucose (74-99) mg/dL POC Glucose (mg/dL) 147 H 174 H 142 H (75-99) mg/dL Calcium (8.4-10.2) mg/dL Magnesium (1.6-2.3) mg/dL AST (17-59) U/L Total Protein (6.3-8.2) g/dL Albumin (3.5-5.0) g/dL Crossmatch 07/29/21 07/29/21 07/29/21 Range/Units 19:37 19:46 21:05 WBC (3.8-10.6) k/uL RBC (4.30-5.90) m/uL Hgb (13.0-17.5) gm/dL Hct (39.0-53.0) % RDW (11.5-15.5) % Plt Count (150-450) k/uL Neutrophils # (1.3-7.7) k/uL Lymphocytes # (1.0-4.8) k/uL PT (9.0-12.0) sec INR (<1.2) ABG pH 7.29 L (7.35-7.45) ABG pO2 61 L (83-108) mmHg ABG HCO3 20 L (21-25) mmol/L ABG O2 Saturation 91.1 L (94-97) % Chloride (98-107) mmol/L Carbon Dioxide (22-30) mmol/L BUN (9-20) mg/dL Creatinine (0.66-1.25) mg/dL Glucose (74-99) mg/dL POC Glucose (mg/dL) 120 H (75-99) mg/dL Calcium (8.4-10.2) mg/dL Magnesium 3.1 H (1.6-2.3) mg/dL AST (17-59) U/L Total Protein (6.3-8.2) g/dL Albumin (3.5-5.0) g/dL Crossmatch 07/29/21 07/29/21 07/30/21 Range/Units 21:08 22:55 00:14 WBC (3.8-10.6) k/uL RBC (4.30-5.90) m/uL Hgb (13.0-17.5) gm/dL Hct (39.0-53.0) % RDW (11.5-15.5) % Plt Count (150-450) k/uL Neutrophils # (1.3-7.7) k/uL Lymphocytes # (1.0-4.8) k/uL PT (9.0-12.0) sec INR (<1.2) ABG pH (7.35-7.45) ABG pO2 (83-108) mmHg ABG HCO3 (21-25) mmol/L ABG O2 Saturation (94-97) % Chloride (98-107) mmol/L Carbon Dioxide (22-30) mmol/L BUN (9-20) mg/dL Creatinine (0.66-1.25) mg/dL Glucose (74-99) mg/dL POC Glucose (mg/dL) 106 H 128 H 148 H (75-99) mg/dL Calcium (8.4-10.2) mg/dL Magnesium (1.6-2.3) mg/dL AST (17-59) U/L Total Protein (6.3-8.2) g/dL Albumin (3.5-5.0) g/dL Crossmatch 07/30/21 07/30/21 07/30/21 Range/Units 01:12 02:46 04:55 WBC 11.5 H (3.8-10.6) k/uL RBC 2.20 L (4.30-5.90) m/uL Hgb 6.6 L* (13.0-17.5) gm/dL Hct 21.1 L (39.0-53.0) % RDW 15.9 H (11.5-15.5) % Plt Count 73 L (150-450) k/uL Neutrophils # 10.1 H (1.3-7.7) k/uL Lymphocytes # 0.4 L (1.0-4.8) k/uL PT (9.0-12.0) sec INR (<1.2) ABG pH (7.35-7.45) ABG pO2 (83-108) mmHg ABG HCO3 (21-25) mmol/L ABG O2 Saturation (94-97) % Chloride (98-107) mmol/L Carbon Dioxide (22-30) mmol/L BUN (9-20) mg/dL Creatinine (0.66-1.25) mg/dL Glucose (74-99) mg/dL POC Glucose (mg/dL) 131 H 102 H (75-99) mg/dL Calcium (8.4-10.2) mg/dL Magnesium (1.6-2.3) mg/dL AST (17-59) U/L Total Protein (6.3-8.2) g/dL Albumin (3.5-5.0) g/dL Crossmatch 07/30/21 07/30/21 07/30/21 Range/Units 04:55 04:56 06:00 WBC (3.8-10.6) k/uL RBC (4.30-5.90) m/uL Hgb (13.0-17.5) gm/dL Hct (39.0-53.0) % RDW (11.5-15.5) % Plt Count (150-450) k/uL Neutrophils # (1.3-7.7) k/uL Lymphocytes # (1.0-4.8) k/uL PT 66.0 H (9.0-12.0) sec INR 6.5 H* (<1.2) ABG pH (7.35-7.45) ABG pO2 (83-108) mmHg ABG HCO3 (21-25) mmol/L ABG O2 Saturation (94-97) % Chloride 108 H (98-107) mmol/L Carbon Dioxide 20 L (22-30) mmol/L BUN 40 H (9-20) mg/dL Creatinine 2.01 H (0.66-1.25) mg/dL Glucose 119 H (74-99) mg/dL POC Glucose (mg/dL) 137 H (75-99) mg/dL Calcium 7.9 L (8.4-10.2) mg/dL Magnesium 2.9 H (1.6-2.3) mg/dL AST 77 H (17-59) U/L Total Protein 5.1 L (6.3-8.2) g/dL Albumin 3.1 L (3.5-5.0) g/dL Crossmatch 07/30/21 07/30/21 07/30/21 Range/Units 06:08 06:53 08:11 WBC (3.8-10.6) k/uL RBC (4.30-5.90) m/uL Hgb (13.0-17.5) gm/dL Hct (39.0-53.0) % RDW (11.5-15.5) % Plt Count (150-450) k/uL Neutrophils # (1.3-7.7) k/uL Lymphocytes # (1.0-4.8) k/uL PT (9.0-12.0) sec INR (<1.2) ABG pH (7.35-7.45) ABG pO2 (83-108) mmHg ABG HCO3 (21-25) mmol/L ABG O2 Saturation (94-97) % Chloride (98-107) mmol/L Carbon Dioxide (22-30) mmol/L BUN (9-20) mg/dL Creatinine (0.66-1.25) mg/dL Glucose (74-99) mg/dL POC Glucose (mg/dL) 148 H 131 H 126 H (75-99) mg/dL Calcium (8.4-10.2) mg/dL Magnesium (1.6-2.3) mg/dL AST (17-59) U/L Total Protein (6.3-8.2) g/dL Albumin (3.5-5.0) g/dL Crossmatch Assessment and Plan Assessment: Postop day #2, status post mitral valve replacement, tricuspid valve repair, and single-vessel bypass grafting, saphenous vein graft to OM. Routine postoperative ventilator management, with successful extubation on 07/28/2021. Chronic, and worsening, right-sided pleural effusion. History of congestive heart failure. History of valvular heart disease, with previous mitral valve repair, with a MitraClip. Coronary artery disease. History of hyperlipidemia. History of renal insufficiency. Multiple medical problems and comorbidities. Plan: Plan dated 07/28/2021. The patient just arrived back to the intensive care unit. We'll await the chest x-ray in the blood gases. Additional recommendations and suggestions are forthcoming. The patient is currently on updrafts every 4 [id number]. We will continue to follow the patient, and attempt to get the patient extubated as soon as possible. In addition, post extubation, we will continue to work with the patient, to maintain normal lung function, and prevent atelectasis, lobar collapse, pleural effusion, or pneumonia. Plan dated 07/29/2021. The patient remains on norepinephrine at 6.4 mcg/m, dopamine at 3 mcg/kg/m, insulin at 1 unit an hour, and lactated Ringer's at 50 mL an hour. The patient is also on 8 L high flow nasal O2. Chest x-ray continues to show what appears to be a loculated effusion on the right. This is not acute. The patient did receive 2 units of fresh frozen plasma, 2 units of platelets, 1 unit of blood, and albumin. The patient was extubated about 7 or so hours post leaving the operating room. The patient remains in the intensive care unit. We encourage deep breathing, coughing, and clearing her secretions. We also recommend hourly use of the incentive spirometer. Plan dated 07/30/2021. The patient remains on dopamine, norepinephrine, and insulin. No decision has been made yet about the right-sided pleural effusion. The patient was going to give some vitamin K, fresh frozen plasma, and at least one unit of blood. Dr. Collado will decide about a chest tube, versus pigtail catheter, versus bedside thoracentesis. Additional recommendations and suggestions are forthcoming. We'll continue to follow. Prognosis is guarded. The patient is again recommended to use the incentive spirometer every hour while awake, and continue with deep breathing, coughing, and clearing of secretions. Time with Patient: Greater than 30
--- NOTE | 2021-07-30 10:42 | P.CONS ---
History of Present Illness - Reason for Consult Consult date: 07/30/21 medical management Requesting physician: Deanne Rivera - Chief Complaint Status post mitral valve replacement, tricuspid valve repair and single-ves - History of Present Illness This is a 81-year-old male patient who is currently postop day 2 from mitral valve replacement, tricuspid valve repair and single-vessel bypass grafting SVG to obtuse marginal. Patient has a past medical history of valvular heart disease with symptoms including shortness of breath with exertion and unable to perform many of his activities of daily living. Additional medical history includes coronary artery disease with previous cardiac infarction and PCI, hypertension, chronic atrial fibrillation on Coumadin for and configuration status post cardioversion, sick sinus syndrome with [facility] permanent pacemaker placement 2016, chronic systolic heart failure, atrial septal defect status post closure with previous mitral clip in 2019 at [facility], chronic renal insufficiency, obstructive sleep apnea, reoccurring right-sided pleural effusions with previous thoracentesis 4. At this time patient is currently resting comfortably in the intensive care unit. Patient was successfully e xtubated per protocol currently on IV dopamine and Levophed. INR elevated at 6.5. hemoglobin 6.6. 1 unit PRBCs, 2 units of FFP have been ordered per surgical services INR recheck ordered for noon. Chest x-ray the same showing cardiomegaly with moderate to large right and small sized bilateral pleural effusion collection and/or effusions with mild to moderate central vascular congestion and bibasilar opacities favoring atelectasis along with left-sided chest tubes are redemonstrated. Per surgical services possible plans for Pleurx catheter placement. This time patient is resting comfortably in chair patient remains on high flow oxygen. Blood sugars have remained stable per nursing staff will transition off insulin drip to sliding scale coverage. Cardiology and critical care services are following. Review of Systems please refer to HPI otherwise unremarkable Past Medical History Past Medical History: Atrial Fibrillation, Coronary Artery Disease (CAD), Heart Failure, COPD, Hyperlipidemia, Hypertension, Myocardial Infarction ([place]), Osteoarthritis (OA), Pneumonia, Prostate Disorder, Renal Disease, Sleep Apnea/CPAP/BIPAP Additional Past Medical History / Comment(s): CPAP use, PSA elevated, CKD Stage 2-3, gout bilateral great toes. Last Myocardial Infarction Date:: 2001 History of Any Multi-Drug Resistant Organisms: None Reported Past Surgical History: Appendectomy, Heart Catheterization, Heart Catheterization With Stent, Orthopedic Surgery, Pacemaker Additional Past Surgical History / Comment(s): PCI with stents, pacemaker, percutaneous closure of ASD/PFO, multiple AVIVA, colonoscopy with benign polyps, R hand surgery for dupuytren's and injections to L hand for the same, ORIF R elbow and wrist as child. Past Anesthesia/Blood Transfusion Reactions: No Reported Reaction Additional Past Anesthesia/Blood Transfusion Reaction / Comm: Pt has clausterphobia Date of Last Stent Placement:: 10/2012 Type of Cardiac Device: Permanent Pacemaker Device Placement Date:: 2016 Past Psychological History: No Psychological Hx Reported Smoking Status: Former smoker Past Alcohol Use History: Heavy Additional Past Alcohol Use History / Comment(s): Started smoking in 1960 and quit in 1974. Hx of being a heavy drinker but quit about 2006. Very rare drink now, once a year. Past Drug Use History: None Reported - Past Family History Father Additional Family Medical History / Comment(s): Father had heart problems. Mother Family Medical History: AFIB Additional Family Medical History / Comment(s): Mother had heart problems. Sister(s) Family Medical History: Cancer Additional Family Medical History / Comment(s): One sister with breast cancer and another had a pacemaker. Medications and Allergies Home Medications Medication Instructions Recorded Confirmed Type Atorvastatin [Lipitor] 40 mg PO HS 07/21/14 07/25/21 History amLODIPine BESYLATE [Norvasc] 10 mg PO HS #30 tablet 05/06/16 07/25/21 Rx Clopidogrel Bisulfate [Plavix] 75 mg PO QAM 06/25/20 07/25/21 History Allopurinol [Zyloprim] 150 mg PO QAM 06/17/21 07/25/21 History Bumetanide [BUMEX] 1 mg PO QAM 06/17/21 07/25/21 History Bumetanide [Bumex] 3 mg PO HS 06/17/21 07/25/21 History Isosorbide Mononitrate ER [Imdur] 60 mg PO QAM 06/17/21 07/25/21 History Losartan Potassium 50 mg PO QAM 06/17/21 07/25/21 History Potassium Chloride [Klor-Con 20 20 meq PO BID 06/17/21 07/25/21 History Packets] Warfarin [Coumadin] 1 mg PO HS 06/17/21 07/25/21 History Ascorbic Acid [Vitamin C] 1,000 mg PO QAM 07/22/21 07/25/21 History Calcium Acetate 667 mg PO HS 07/22/21 07/25/21 History Ergocalciferol [Vitamin D2 (1250 1,250 mcg PO Q30D 07/22/21 07/25/21 History Mcg = 76088 Iu)] Ferrous Sulfate [Iron] 325 mg PO QAM 07/22/21 07/25/21 History Folic Acid 0.4 mg PO QAM 07/22/21 07/25/21 History Loratadine [Claritin] 10 mg PO QAM 07/22/21 07/25/21 History Mupirocin [Mupirocin 2%] 1 applic NASAL BID #1 tub 07/24/21 07/25/21 Rx Aspirin 325 mg PO DAILY 07/28/21 07/28/21 History Allergies Allergy/AdvReac Type Severity Reaction Status Date / Time furosemide [From Lasix] Allergy Swelling Verified 07/28/21 06:08 Physical Exam Vitals: Vital Signs Temp Pulse Resp BP Pulse Ox 07/30/21 10:06 98.2 F 80 17 112/67 88 L 07/30/21 10:00 81 23 119/70 88 L 07/30/21 09:56 98.2 F 82 17 113/42 89 L 07/30/21 09:49 98.2 F 80 17 119/70 88 L 07/30/21 09:45 80 14 121/106 87 L 07/30/21 09:30 80 12 107/62 89 L 07/30/21 09:15 80 26 H 107/80 87 L 07/30/21 09:00 80 14 112/85 88 L 07/30/21 08:56 97.9 F 80 18 112/85 90 L 07/30/21 08:51 79 07/30/21 08:45 80 10 L 109/70 92 L 07/30/21 08:42 80 92 L 07/30/21 08:30 80 11 L 106/64 94 L 07/30/21 08:26 98.1 F 80 21 100/64 94 L 07/30/21 08:16 98.2 F 80 17 106/64 96 07/30/21 08:15 79 23 108/63 92 L 07/30/21 08:00 80 15 98/59 98 07/30/21 07:45 80 11 L 97/64 96 07/30/21 07:30 16 112/57 98 07/30/21 07:15 80 18 106/91 97 07/30/21 07:00 80 21 94 L 07/30/21 06:45 80 26 H 98 07/30/21 06:30 80 21 98 07/30/21 06:15 80 13 106/91 97 07/30/21 06:01 98 07/30/21 06:00 80 10 L 99 07/30/21 05:45 80 20 93 L 07/30/21 05:30 80 22 93 L 07/30/21 05:15 80 22 93 L 07/30/21 05:00 80 29 H 96 07/30/21 04:45 80 18 95 07/30/21 04:30 81 17 93 L 07/30/21 04:15 80 24 108/55 95 07/30/21 04:00 98.4 F 80 15 96 07/30/21 03:45 80 26 H 103/73 94 L 07/30/21 03:30 80 33 H 103/73 91 L 07/30/21 03:20 93 L 07/30/21 03:15 80 14 94 L 07/30/21 03:00 80 25 H 93 L 07/30/21 02:45 80 20 93 L 07/30/21 02:30 80 25 H 96 07/30/21 02:15 80 20 103/73 96 07/30/21 02:00 80 19 106/55 92 L 07/30/21 01:45 80 23 106/55 96 07/30/21 01:30 80 17 106/55 97 07/30/21 01:15 80 23 106/55 97 07/30/21 01:00 80 23 108/48 95 07/30/21 00:45 80 31 H 108/48 94 L 07/30/21 00:30 80 21 108/48 95 07/30/21 00:15 26 H 96 07/30/21 00:01 97 07/30/21 00:00 97.9 F 80 19 96 07/29/21 23:45 80 30 H 96 07/29/21 23:30 80 24 97 07/29/21 23:15 80 29 H 07/29/21 23:11 80 22 07/29/21 23:00 80 20 93 L 07/29/21 22:45 80 19 96 07/29/21 22:30 80 17 96 07/29/21 22:15 80 18 97 07/29/21 22:00 80 15 98 07/29/21 21:45 80 16 99 07/29/21 21:30 80 17 94 L 07/29/21 21:15 80 15 96 07/29/21 21:08 94 L 07/29/21 21:00 80 20 96 07/29/21 20:45 81 19 92 L 07/29/21 20:30 80 18 94 L 07/29/21 20:15 80 17 101/65 86 L 07/29/21 20:00 97.0 F L 80 20 90 L 07/29/21 19:45 80 12 90 L 07/29/21 19:30 80 14 92 L 07/29/21 19:23 80 07/29/21 19:15 80 12 92 L 07/29/21 19:14 80 92 L 07/29/21 19:00 80 12 110/59 86 L 07/29/21 18:45 80 18 110/59 88 L 07/29/21 18:30 80 8 L 110/59 91 L 07/29/21 18:15 80 6 L 110/59 94 L 07/29/21 18:00 80 22 93/65 87 L 07/29/21 17:45 80 21 93/65 85 L 07/29/21 17:30 80 15 93/65 89 L 07/29/21 17:15 80 19 93/65 92 L 07/29/21 17:00 61 15 89/60 90 L 07/29/21 16:45 80 16 89/60 91 L 07/29/21 16:30 80 20 91 L 07/29/21 16:15 80 17 89/60 89 L 07/29/21 16:00 80 22 97/59 89 L 07/29/21 15:52 80 07/29/21 15:45 80 23 97/59 90 L 07/29/21 15:40 80 90 L 07/29/21 15:30 80 16 97/59 91 L 07/29/21 15:15 80 12 97/59 93 L 03/29/22 15:00 21 82/59 92 L 07/29/21 14:45 81 25 H 108/67 94 L 07/29/21 14:30 80 14 108/67 94 L 07/29/21 14:15 80 16 108/67 92 L 07/29/21 14:00 80 32 H 119/65 93 L 07/29/21 13:45 80 18 119/65 90 L 07/29/21 13:30 80 18 119/65 94 L 07/29/21 13:15 80 10 L 119/65 92 L 07/29/21 13:00 80 22 91 L 07/29/21 12:45 80 15 93 L 07/29/21 12:30 14 90 L 07/29/21 12:15 82 14 105/80 91 L 07/29/21 12:00 80 20 92/58 93 L 07/29/21 11:48 80 07/29/21 11:45 80 18 92/58 95 07/29/21 11:34 80 07/29/21 11:30 80 15 89 L 07/29/21 11:15 80 17 90 L 07/29/21 11:00 80 18 102/82 90 L 07/29/21 10:45 80 16 89 L 07/29/21 10:30 80 19 90 L Intake and Output 07/29/21 07/30/21 07/30/21 22:59 06:59 14:59 Intake Total 1910.241 583.675 1152.148 Output Total 400 945 185 Balance 1510.241 -144.558 932.148 Intake: IV 802 552 216 Albumin Human 5% 250 ml 250 In Empty Bag 1 bag @ 250 mls/hr IVPB Q1HR PRN Rx#: [id number] CO/CI 80 80 20 Lactated Ringers 1,000 ml 400 400 160 @ 20 mls/hr IV .Q24H [facility] Rx#:[id number] Pressure Bags 72 72 36 Intake, IV Titration 358.241 8.442 281.148 Amount DOPamine DRIP 800 mg In 97.045 27.744 Dextrose/Water 1 250ml. bag @ 3 MCG/KG/MIN 4.168 mls/hr IV .Q24H [facility] Rx#: [id number] Insulin Regular 100 unit 23.667 8.442 5.900 In Sodium Chloride 0.9% 100 ml @ Per Protocol IV .Q0M [facility] Rx#:[id number] Norepinephrine 4 mg In 237.529 247.504 Sodium Chloride 0.9% 250 ml @ 0.05 MCG/KG/MIN 14. 116 mls/hr IV .Q18H [facility] Rx#:[id number] Oral 750 240 Blood Product 620 Ffp 24 Pher Acda Cnt1 0 Unit [id number] Rc As-1 Unit 310 [id number] Output: Drainage [address] x2 140 210 10 Urine 140 475 135 Other: Voiding Method Indwelling Catheter Indwelling Catheter Indwelling Catheter Weight 82.9 kg ABP, PAP, CO, CI - Last 8 Hours Arterial Blood Pressure 116/42 Arterial Blood Pressure 106/43 Arterial Blood Pressure 117/41 Arterial Blood Pressure 112/41 Arterial Blood Pressure 95/37 Arterial Blood Pressure 110/39 Arterial Blood Pressure 106/39 Arterial Blood Pressure 110/40 Arterial Blood Pressure 108/40 Arterial Blood Pressure 103/42 Arterial Blood Pressure 115/42 Arterial Blood Pressure 109/36 Arterial Blood Pressure 101/35 Arterial Blood Pressure 103/35 Arterial Blood Pressure 106/35 Arterial Blood Pressure 122/39 Arterial Blood Pressure 112/41 Arterial Blood Pressure 92/33 Arterial Blood Pressure 112/39 Arterial Blood Pressure 114/41 Arterial Blood Pressure 121/39 Arterial Blood Pressure 126/42 Arterial Blood Pressure 110/38 Arterial Blood Pressure 112/39 Arterial Blood Pressure 110/38 Arterial Blood Pressure 109/46 Arterial Blood Pressure 122/43 Arterial Blood Pressure 113/43 Arterial Blood Pressure 124/42 Pulmonary Artery Pressure 57/18 Pulmonary Artery Pressure 58/17 Pulmonary Artery Pressure 52/17 Pulmonary Artery Pressure 56/17 Pulmonary Artery Pressure 50/16 Pulmonary Artery Pressure 52/18 Pulmonary Artery Pressure 52/17 Pulmonary Artery Pressure 49/16 Pulmonary Artery Pressure 53/17 Pulmonary Artery Pressure 53/18 Pulmonary Artery Pressure 54/18 Pulmonary Artery Pressure 51/12 Pulmonary Artery Pressure 46/12 Pulmonary Artery Pressure 47/13 Pulmonary Artery Pressure 51/13 Pulmonary Artery Pressure 54/15 Pulmonary Artery Pressure 54/17 Pulmonary Artery Pressure 59/18 Pulmonary Artery Pressure 57/20 Pulmonary Artery Pressure 60/23 Pulmonary Artery Pressure 61/20 Pulmonary Artery Pressure 60/19 Pulmonary Artery Pressure 58/22 Pulmonary Artery Pressure 54/19 Pulmonary Artery Pressure 56/21 Pulmonary Artery Pressure 59/20 Pulmonary Artery Pressure 58/20 Pulmonary Artery Pressure 57/17 Pulmonary Artery Pressure 58/20 Pulmonary Artery Pressure 58/21 Cardiac Output 5.3 Cardiac Output 5.3 Cardiac Output 4.6 Cardiac Output 4.8 Cardiac Index 2.9 Cardiac Index 2.9 Cardiac Index 2.5 Cardiac Index 2.6 Head normocephalic Neck supple Lungs clear to auscultation bilaterally no wheezing or crackles. Chest tubes in place Heart regular rate and rhythm S1-S2, no rub or gallop Abdomen is soft nontender nondistended positive bowel sounds no hepatosplenomegaly Extremities no edema Neuro alert and orientated to 3 Medial chest dressing clean dry and intact. Results CBC & Chem 7: 07/30/21 04:55 07/30/21 04:55 Labs: Abnormal Lab Results - Last 24 Hours (Table) 07/22/21 07/29/21 07/29/21 Range/Units 08:58 11:06 12:02 WBC (3.8-10.6) k/uL RBC (4.30-5.90) m/uL Hgb (13.0-17.5) gm/dL Hct (39.0-53.0) % RDW (11.5-15.5) % Plt Count (150-450) k/uL Neutrophils # (1.3-7.7) k/uL Lymphocytes # (1.0-4.8) k/uL PT (9.0-12.0) sec INR (<1.2) ABG pH (7.35-7.45) ABG pO2 (83-108) mmHg ABG HCO3 (21-25) mmol/L ABG O2 Saturation (94-97) % Chloride (98-107) mmol/L Carbon Dioxide (22-30) mmol/L BUN (9-20) mg/dL Creatinine (0.66-1.25) mg/dL Glucose (74-99) mg/dL POC Glucose (mg/dL) 156 H 149 H (75-99) mg/dL Calcium (8.4-10.2) mg/dL Magnesium (1.6-2.3) mg/dL AST (17-59) U/L Total Protein (6.3-8.2) g/dL Albumin (3.5-5.0) g/dL Crossmatch See Detail 07/29/21 07/29/21 07/29/21 Range/Units 13:17 14:21 15:16 WBC (3.8-10.6) k/uL RBC (4.30-5.90) m/uL Hgb (13.0-17.5) gm/dL Hct (39.0-53.0) % RDW (11.5-15.5) % Plt Count (150-450) k/uL Neutrophils # (1.3-7.7) k/uL Lymphocytes # (1.0-4.8) k/uL PT (9.0-12.0) sec INR (<1.2) ABG pH (7.35-7.45) ABG pO2 (83-108) mmHg ABG HCO3 (21-25) mmol/L ABG O2 Saturation (94-97) % Chloride (98-107) mmol/L Carbon Dioxide (22-30) mmol/L BUN (9-20) mg/dL Creatinine (0.66-1.25) mg/dL Glucose (74-99) mg/dL POC Glucose (mg/dL) 203 H 198 H 160 H (75-99) mg/dL Calcium (8.4-10.2) mg/dL Magnesium (1.6-2.3) mg/dL AST (17-59) U/L Total Protein (6.3-8.2) g/dL Albumin (3.5-5.0) g/dL Crossmatch 07/29/21 07/29/21 07/29/21 Range/Units 16:01 17:05 18:54 WBC (3.8-10.6) k/uL RBC (4.30-5.90) m/uL Hgb (13.0-17.5) gm/dL Hct (39.0-53.0) % RDW (11.5-15.5) % Plt Count (150-450) k/uL Neutrophils # (1.3-7.7) k/uL Lymphocytes # (1.0-4.8) k/uL PT (9.0-12.0) sec INR (<1.2) ABG pH (7.35-7.45) ABG pO2 (83-108) mmHg ABG HCO3 (21-25) mmol/L ABG O2 Saturation (94-97) % Chloride (98-107) mmol/L Carbon Dioxide (22-30) mmol/L BUN (9-20) mg/dL Creatinine (0.66-1.25) mg/dL Glucose (74-99) mg/dL POC Glucose (mg/dL) 147 H 174 H 142 H (75-99) mg/dL Calcium (8.4-10.2) mg/dL Magnesium (1.6-2.3) mg/dL AST (17-59) U/L Total Protein (6.3-8.2) g/dL Albumin (3.5-5.0) g/dL Crossmatch 07/29/21 07/29/21 07/29/21 Range/Units 19:37 19:46 21:05 WBC (3.8-10.6) k/uL RBC (4.30-5.90) m/uL Hgb (13.0-17.5) gm/dL Hct (39.0-53.0) % RDW (11.5-15.5) % Plt Count (150-450) k/uL Neutrophils # (1.3-7.7) k/uL Lymphocytes # (1.0-4.8) k/uL PT (9.0-12.0) sec INR (<1.2) ABG pH 7.29 L (7.35-7.45) ABG pO2 61 L (83-108) mmHg ABG HCO3 20 L (21-25) mmol/L ABG O2 Saturation 91.1 L (94-97) % Chloride (98-107) mmol/L Carbon Dioxide (22-30) mmol/L BUN (9-20) mg/dL Creatinine (0.66-1.25) mg/dL Glucose (74-99) mg/dL POC Glucose (mg/dL) 120 H (75-99) mg/dL Calcium (8.4-10.2) mg/dL Magnesium 3.1 H (1.6-2.3) mg/dL AST (17-59) U/L Total Protein (6.3-8.2) g/dL Albumin (3.5-5.0) g/dL Crossmatch 07/29/21 07/29/21 07/30/21 Range/Units 21:08 22:55 00:14 WBC (3.8-10.6) k/uL RBC (4.30-5.90) m/uL Hgb (13.0-17.5) gm/dL Hct (39.0-53.0) % RDW (11.5-15.5) % Plt Count (150-450) k/uL Neutrophils # (1.3-7.7) k/uL Lymphocytes # (1.0-4.8) k/uL PT (9.0-12.0) sec INR (<1.2) ABG pH (7.35-7.45) ABG pO2 (83-108) mmHg ABG HCO3 (21-25) mmol/L ABG O2 Saturation (94-97) % Chloride (98-107) mmol/L Carbon Dioxide (22-30) mmol/L BUN (9-20) mg/dL Creatinine (0.66-1.25) mg/dL Glucose (74-99) mg/dL POC Glucose (mg/dL) 106 H 128 H 148 H (75-99) mg/dL Calcium (8.4-10.2) mg/dL Magnesium (1.6-2.3) mg/dL AST (17-59) U/L Total Protein (6.3-8.2) g/dL Albumin (3.5-5.0) g/dL Crossmatch 07/30/21 07/30/21 07/30/21 Range/Units 01:12 02:46 04:55 WBC 11.5 H (3.8-10.6) k/uL RBC 2.20 L (4.30-5.90) m/uL Hgb 6.6 L* (13.0-17.5) gm/dL Hct 21.1 L (39.0-53.0) % RDW 15.9 H (11.5-15.5) % Plt Count 73 L (150-450) k/uL Neutrophils # 10.1 H (1.3-7.7) k/uL Lymphocytes # 0.4 L (1.0-4.8) k/uL PT (9.0-12.0) sec INR (<1.2) ABG pH (7.35-7.45) ABG pO2 (83-108) mmHg ABG HCO3 (21-25) mmol/L ABG O2 Saturation (94-97) % Chloride (98-107) mmol/L Carbon Dioxide (22-30) mmol/L BUN (9-20) mg/dL Creatinine (0.66-1.25) mg/dL Glucose (74-99) mg/dL POC Glucose (mg/dL) 131 H 102 H (75-99) mg/dL Calcium (8.4-10.2) mg/dL Magnesium (1.6-2.3) mg/dL AST (17-59) U/L Total Protein (6.3-8.2) g/dL Albumin (3.5-5.0) g/dL Crossmatch 07/30/21 07/30/21 07/30/21 Range/Units 04:55 04:56 06:00 WBC (3.8-10.6) k/uL RBC (4.30-5.90) m/uL Hgb (13.0-17.5) gm/dL Hct (39.0-53.0) % RDW (11.5-15.5) % Plt Count (150-450) k/uL Neutrophils # (1.3-7.7) k/uL Lymphocytes # (1.0-4.8) k/uL PT 66.0 H (9.0-12.0) sec INR 6.5 H* (<1.2) ABG pH (7.35-7.45) ABG pO2 (83-108) mmHg ABG HCO3 (21-25) mmol/L ABG O2 Saturation (94-97) % Chloride 108 H (98-107) mmol/L Carbon Dioxide 20 L (22-30) mmol/L BUN 40 H (9-20) mg/dL Creatinine 2.01 H (0.66-1.25) mg/dL Glucose 119 H (74-99) mg/dL POC Glucose (mg/dL) 137 H (75-99) mg/dL Calcium 7.9 L (8.4-10.2) mg/dL Magnesium 2.9 H (1.6-2.3) mg/dL AST 77 H (17-59) U/L Total Protein 5.1 L (6.3-8.2) g/dL Albumin 3.1 L (3.5-5.0) g/dL Crossmatch 07/30/21 07/30/21 07/30/21 Range/Units 06:08 06:53 08:11 WBC (3.8-10.6) k/uL RBC (4.30-5.90) m/uL Hgb (13.0-17.5) gm/dL Hct (39.0-53.0) % RDW (11.5-15.5) % Plt Count (150-450) k/uL Neutrophils # (1.3-7.7) k/uL Lymphocytes # (1.0-4.8) k/uL PT (9.0-12.0) sec INR (<1.2) ABG pH (7.35-7.45) ABG pO2 (83-108) mmHg ABG HCO3 (21-25) mmol/L ABG O2 Saturation (94-97) % Chloride (98-107) mmol/L Carbon Dioxide (22-30) mmol/L BUN (9-20) mg/dL Creatinine (0.66-1.25) mg/dL Glucose (74-99) mg/dL POC Glucose (mg/dL) 148 H 131 H 126 H (75-99) mg/dL Calcium (8.4-10.2) mg/dL Magnesium (1.6-2.3) mg/dL AST (17-59) U/L Total Protein (6.3-8.2) g/dL Albumin (3.5-5.0) g/dL Crossmatch Assessment and Plan Assessment: 1. Status post mitral valve replacement, tricuspid valve repair and single- vessel bypass grafting. Postop due 2 2. Right-sided pleural effusion 3. Coagulopathy. INR 6.5. Blood product has been ordered per surgical services repeat INR to be ordered 4. History of congestive heart failure 5. History of valvular heart disease with previous mitral valve repair with a mitral clip at [facility] 6. History of coronary artery disease 7. History of hyperlipidemia 8. History of renal insufficiency 9. Previous history of atrial fibrillation Thank you for this consultation we will continue to follow patient closely throughout stay Patient remains in the intensive care unit Patient currently receiving 1 unit of PRBCs and 2 units of FFP's Repeat labs ordered Patient to be transitioned off IV insulin to sliding scale coverage. A1c 5.8
[2021-07-30 11:52] LABS: Glucose,Whole Blood 182 mg/dL (75-99)
[2021-07-30] MEDS: INSULIN ASPART (NovoLOG) 100 UNIT/ML VIAL SQ SCH ×3 (12:00→20:23)
[2021-07-30 12:32] LABS: INR 2.3 (<1.2); Prothrombin Time 22.6 sec (9.0-12.0)
--- NOTE | 2021-07-30 13:31 | P.PCN ---
Date of Procedure: 07/30/21 Preoperative Diagnosis: Right Sided Pleural Effusion Postoperative Diagnosis: Same Procedure(s) Performed: Right sided ultrasound guided chest tube Anesthesia: local Surgeon: Paul Collado Estimated Blood Loss (ml): 1 Pathology: none sent Condition: stable Disposition: no change Indications for Procedure: This patient is an 81 year-old male who underwent a mitraclip procedure 2 years ago. He then developed refractory mitral regurgitation and is s/p mitral valve replacement, tricuspid valve repair and coronary artery bypass grafting x 1 about 2 days ago. His right pleura was opened at the time of operation but due the right lung were severely adherent to the chest wall. He now has a post- operative right sided effusion that needs drainage. Operative Findings: 1000cc of serosang fluid return Description of Procedure: The ultrasound was used to identify the pleura space and fluid posteriorly. The patient was sitting when his back was prepped in the usual sterile fashion. 1% lidocaine was used to inject the skin and intercostal space. The introducer needle was inserted into the pleural cavity with good return of pleural fluid. A guidewire was threaded into the pleural space. This tract was dilated and a 8.5F pigtail catheter was inserted into the pleural cavity which immediately drained 1000cc of serosanguinous fluid. The patient tolerated the procedure well.
--- NOTE | 2021-07-30 13:49 | XR ---
EXAMINATION TYPE: XR chest 1V portable DATE OF EXAM: 07/30/2021 CLINICAL HISTORY: Post pigtail catheter placement. TECHNIQUE: Single AP portable upright view of the chest is obtained. COMPARISON: Chest x-ray from earlier today and older studies FINDINGS: New peripheral right sided lower lung pigtail pleural drainage catheter. Stable right internal jugular [place]-Brady catheter. Stable left-sided chest tube. Interval removal of m ediastinal drainage catheter. Overlying sternal wires along with cardiac valvular clips are redemonst rated. Persistent cardiomegaly with atrial septal closure device. Improved small to moderate size right-sided pleural fluid collection after catheter placement. Some n ew pleural-based air is noted just above catheter. Patchy left basilar opacity is stable. Mild centra l vascular congestion redemonstrated. Osseous structures are intact. IMPRESSION: Improved right-sided pleural fluid collection size after percutaneous pigtail catheter pl acement. There is some but incomplete expansion of the right lung with new air component in the later al mid to lower lung pleural space. Other findings stable except for interval removal of mediastinal drainage catheter from earlier today.
[2021-07-30 16:47] LABS: Glucose,Whole Blood 176 mg/dL (75-99)
[2021-07-30 20:02] LABS: Glucose,Whole Blood 183 mg/dL (75-99)
[2021-07-30] MEDS: ATORVASTATIN 40 MG TAB PO SCH (20:22)
[2021-07-30] MEDS: SENNOSIDES-DOCUSATE SODIUM 1 EACH TAB PO SCH (20:23)
[2021-07-30] MEDS: CALCIUM ACETATE 667 MG TAB PO SCH (20:23)
[2021-07-30] MEDS ORDERED: traZODone HCL 50 MG TAB PO STA (22:44)
[2021-07-31] MEDS: HEPARIN SODIUM,PORCINE/PF 5,000 UNIT/0.5 ML SYRINGE SQ SCH ×3 (01:00→14:23)
[2021-07-31 04:52] LABS: Basophils % (A) 0 %; Eosinophils % (A) 0 %; HCT 23.2 % (39.0-53.0); HGB 7.6 gm/dL (13.0-17.5); Hypochromasia Slight; Lymphocytes # (A) 0.4 k/uL (1.0-4.8); Lymphocytes % (A) 4 %; MCH 31.3 pg (25.0-35.0); MCHC 32.8 g/dL (31.0-37.0); MCV 95.6 fL (80.0-100.0); Mean Platelet Volume 9.8; Monocytes # (A) 0.4 k/uL (0-1.0); Monocytes % (A) 5 %; Neutrophils # (A) 7.3 k/uL (1.3-7.7); Neutrophils % (A) 88 %; RBC 2.43 m/uL (4.30-5.90); RDW 15.6 % (11.5-15.5); WBC 8.3 k/uL (3.8-10.6)
[2021-07-31 04:54] LABS: Platelet Count 63 k/uL (150-450)
[2021-07-31 05:01] LABS: INR 1.2 (<1.2); Prothrombin Time 12.3 sec (9.0-12.0)
[2021-07-31 05:05] LABS: Calcium 8.1 mg/dL (8.4-10.2); Potassium 4.4 mmol/L (3.5-5.1); Total Bilirubin 1.2 mg/dL (0.2-1.3)
[2021-07-31] MEDS ORDERED: HALOPERIDOL LACTATE 5 MG/ML 1 ML VIAL IVP ONE (05:42)
[2021-07-31 06:52] LABS: Glucose,Whole Blood 163 mg/dL (75-99)
[2021-07-31] MEDS: PANTOPRAZOLE 40 MG TABLET PO SCH (06:56)
[2021-07-31] MEDS: INSULIN ASPART (NovoLOG) 100 UNIT/ML VIAL SQ SCH ×4 (06:56→20:19)
[2021-07-31] MEDS: LACTATED RINGERS 1,000 ML IV SCH (06:58)
--- NOTE | 2021-07-31 07:12 | P.PN ---
Subjective HISTORY OF PRESENTING ILLNESS Patient is pleasant 81-year-old male with history of coronary artery disease status post PCI of the RCA and circumflex, CKD, persistent atrial fibrillation, sick sinus syndrome status post permanent pacemaker, pulmonary hypertension, systolic heart failure, PFO status post PFO closure, mitral regurgitation and tricuspid regurgitation status post initial mitral clip. He follows in the office with Dr. Diego. He has been having issues with recurrent mainly left- sided heart failure with recurrent pleural effusions requiring thoracentesis. Initially he had a mitral clip performed which reduce the severe mitral in sufficiency from 4+ to 2-3+ regurgitation however has had recurrent admissions for heart failure. Therefore workup was performed which showed 3+ mitral regurgitation as well as severe tricuspid regurgitation and heart catheterization showed obstructive circumflex disease. Therefore patient underwent mitral valve replacement, tricuspid valve repair and CABG 1 with SVG to OM as well as closure of ASD from the mitral clip and closure of left atrial appendage on 07/28/2020. Patient seen and examined 07/29. He denies any chest pain or pressure. He states that overall he is feeling "okay". He was able to tolerate clear liquid this morning. He has pacemaker set at 80, current cardiac index in the 2.4-3.1 range. PA pressures around 31/35 with a CVP of 15. He is getting lactated Ringer's at 50 mL per hour. He is still on low dose of norepinephrine as well as dopamine. His platelets decreased to 80 and therefore heparin and Plavix have been held for today. Hemoglobin 7.5 today 07/30 Patient seen and examined. Patient's creatinine worsening and worsened respiratory status. Chest x-ray shows increased right pleural effusion. He has remained on norepinephrine as well as dopamine with borderline blood pressures. Cardiac output 5.3, cardiac index 2.9 this morning. Admits to mild appetite. He was given Bumex last night. 07/31 Patient seen and examined. Patient had confusion overnight and received Haldol however still confused this morning thinking he is in his garage. He denies any chest pain or pressure. He did have a right chest tube placed yesterday. Norepinephrine was discontinued yesterday and dopamine is down to 1. He has not been eating much. No bowel movement per nursing. He did receive packed red blood cell yesterday. Creatinine mildly increased at 2.1 today. PHYSICAL EXAMINATION Vital signs reviewed. CONSTITUTIONAL: No apparent distress, ill appearing HEENT: Head is normocephalic. Pupils are equal, round. Sclerae anicteric. Mucous membranes of the mouth are moist. No JVD. No carotid bruit. CHEST EXAMINATION: Lungs are clear to auscultation. Decreased breath sounds bilaterally HEART EXAMINATION: Regular rate and rhythm. S1, S2 heard. No murmurs, gallops or rub. ABDOMEN: Soft, nontender. Positive bowel sounds. EXTREMITIES: 2+ peripheral pulses, no lower extremity edema and no calf tenderness. NEUROLOGIC EXAMINATION: Patient is awake, alert and oriented x3. ASSESSMENT 1. S/p mitral valve replacement, tricuspid repair and one-vessel CABG SVG to OM 07/28, closure of ASD 2. History of mitral insufficiency status post initial mitral clip with continued preoperative mitral insufficiency 3. Coronary artery disease with prior history of PCI and most recent CABG 4. Permanent atrial fibrillation 5. Sick sinus syndrome status post permanent pacemaker 6. Pulmonary hypertension group 2 7. Postoperative anemia 8. Thrombocytopenia 9. Chronic systolic heart failure, mildly elevated CVP and PA pressures 10. Altered mental status 11. Acute kidney injury PLAN Patient with worsened altered mental status overnight as well as mildly worsening kidney function this morning. Norepinephrine however was able to be discontinued and on lower dose of dopamine. CVP still elevated with vascular congestion noted. Status post right chest tube. Continue supportive care. Prognosis guarded. One more dose of Bumex today and monitor response. Ideally add afterload reduction with Hydralazine/ Isordil if MAPs are elevated however has been borderline and only recently off Norepinephrine with adequate cardiac outpts. Objective - Vital Signs Vital signs: Vital Signs Temp 98.8 F 07/31/21 04:00 Pulse 80 07/31/21 06:00 Resp 19 07/31/21 06:30 BP 128/103 07/31/21 06:30 Pulse Ox 90 L 07/31/21 06:30 Intake & Output 07/30/21 07/31/21 07/31/21 18:59 06:59 18:59 Intake Total 2470.569 312 Output Total 2840 1425 Balance -369.431 1113 Weight 81.5 kg Intake: IV 467 312 CO/CI 50 Lactated Ringers 1,000 ml 330 240 @ 20 mls/hr IV .Q24H [facility] Rx#:[id number] Pressure Bags 87 72 Intake, IV Titration 318.569 Amount DOPamine DRIP 800 mg In 65.165 Dextrose/Water 1 250ml. bag @ 3 MCG/KG/MIN 4.168 mls/hr IV .Q24H [facility] Rx#: [id number] Insulin Regular 100 unit 5.900 In Sodium Chloride 0.9% 100 ml @ Per Protocol IV .Q0M [facility] Rx#:[id number] Norepinephrine 4 mg In 247.504 Sodium Chloride 0.9% 250 ml @ 0.05 MCG/KG/MIN 14. 116 mls/hr IV .Q18H [facility] Rx#:[id number] Blood Product 1685 Ffp 24 Pher Acda Unit 243 [id number] Ffp 24 Pher Acda Cnt1 261 Unit [id number] Rc As-1 Unit 310 [id number] Output: Drainage [address] x2 60 Right Posterior 2180 490 Urine 330 375 Other: Voiding Method Indwelling Catheter Indwelling Catheter ABP, PAP, CO, CI - Last Documented Arterial Blood Pressure 119/35 Pulmonary Artery Pressure 35/28 Cardiac Output 5.0 Cardiac Index 2.7 - Labs CBC & Chem 7: 07/31/21 04:22 07/31/21 04:22 Labs: Abnormal Lab Results - Last 24 Hours (Table) 07/22/21 07/30/21 07/30/21 Range/Units 08:58 08:11 11:51 RBC (4.30-5.90) m/uL Hgb (13.0-17.5) gm/dL Hct (39.0-53.0) % RDW (11.5-15.5) % Plt Count (150-450) k/uL Lymphocytes # (1.0-4.8) k/uL PT (9.0-12.0) sec INR (<1.2) Sodium (137-145) mmol/L Carbon Dioxide (22-30) mmol/L BUN (9-20) mg/dL Creatinine (0.66-1.25) mg/dL Glucose (74-99) mg/dL POC Glucose (mg/dL) 126 H 182 H (75-99) mg/dL Calcium (8.4-10.2) mg/dL AST (17-59) U/L Total Protein (6.3-8.2) g/dL Albumin (3.5-5.0) g/dL Crossmatch See Detail 07/30/21 07/30/21 07/30/21 Range/Units 11:57 16:45 20:01 RBC (4.30-5.90) m/uL Hgb (13.0-17.5) gm/dL Hct (39.0-53.0) % RDW (11.5-15.5) % Plt Count (150-450) k/uL Lymphocytes # (1.0-4.8) k/uL PT 22.6 H (9.0-12.0) sec INR 2.3 H (<1.2) Sodium (137-145) mmol/L Carbon Dioxide (22-30) mmol/L BUN (9-20) mg/dL Creatinine (0.66-1.25) mg/dL Glucose (74-99) mg/dL POC Glucose (mg/dL) 176 H 183 H (75-99) mg/dL Calcium (8.4-10.2) mg/dL AST (17-59) U/L Total Protein (6.3-8.2) g/dL Albumin (3.5-5.0) g/dL Crossmatch 07/31/21 07/31/21 07/31/21 Range/Units 04:22 04:22 04:22 RBC 2.43 L (4.30-5.90) m/uL Hgb 7.6 L (13.0-17.5) gm/dL Hct 23.2 L (39.0-53.0) % RDW 15.6 H (11.5-15.5) % Plt Count 63 L (150-450) k/uL Lymphocytes # 0.4 L (1.0-4.8) k/uL PT 12.3 H (9.0-12.0) sec INR 1.2 H (<1.2) Sodium 136 L (137-145) mmol/L Carbon Dioxide 20 L (22-30) mmol/L BUN 49 H (9-20) mg/dL Creatinine 2.17 H (0.66-1.25) mg/dL Glucose 132 H (74-99) mg/dL POC Glucose (mg/dL) (75-99) mg/dL Calcium 8.1 L (8.4-10.2) mg/dL AST 71 H (17-59) U/L Total Protein 5.0 L (6.3-8.2) g/dL Albumin 3.0 L (3.5-5.0) g/dL Crossmatch 07/31/21 Range/Units 06:50 RBC (4.30-5.90) m/uL Hgb (13.0-17.5) gm/dL Hct (39.0-53.0) % RDW (11.5-15.5) % Plt Count (150-450) k/uL Lymphocytes # (1.0-4.8) k/uL PT (9.0-12.0) sec INR (<1.2) Sodium (137-145) mmol/L Carbon Dioxide (22-30) mmol/L BUN (9-20) mg/dL Creatinine (0.66-1.25) mg/dL Glucose (74-99) mg/dL POC Glucose (mg/dL) 163 H (75-99) mg/dL Calcium (8.4-10.2) mg/dL AST (17-59) U/L Total Protein (6.3-8.2) g/dL Albumin (3.5-5.0) g/dL Crossmatch
[2021-07-31] MEDS ORDERED: bisacodyL 5 MG TABLET.DR PO STA (07:35)
--- NOTE | 2021-07-31 08:08 | XR ---
EXAMINATION TYPE: XR chest 1V portable DATE OF EXAM: 07/31/2021 Comparison: 07/30/2021 Clinical History: 81-year-old male post cardiac surgery Findings: Left anterior chest wall pacemaker generator with right ventricular lead. Median sternotomy wires and post-CABG clips in the mediastinum. Heart is mildly enlarged. There is a left-sided chest tube prese nt. Difficult to exclude a trace 3 mm left apical pneumothorax which may have been present in retrosp ect. There is a right-sided pleural pigtail catheter with similar [id number] right pleural eff usion with adjacent patchy opacity. Unable to exclude a persistent right basilar pneumothorax as yovani ed on image. Patchy interstitial changes are present bilaterally. Right IJ sheath remains in place. I nterstitial changes slightly progressed. Impression: 1. Similar mild cardiomegaly. Interstitial changes slightly increased. Correlate for developing pulmo nary vascular congestion. 2. Left-sided chest tube. There may be a trace 3 mm left apical pneumothorax which may have been pres ent in retrospect. 3. Right-sided pigtail pleural catheter with continued small to moderate pleural effusion with adjace nt atelectasis and/or consolidation. 4. An apparent pleural edge at the right lower lung suggesting underlying right basilar pneumothorax, similar to prior exam.
[2021-07-31] MEDS: FERROUS SULFATE 325 MG TAB PO SCH (08:32)
[2021-07-31] MEDS: ASCORBIC ACID 500 MG TAB PO SCH (08:32)
[2021-07-31] MEDS: allopurinoL 100 MG TAB PO SCH (08:32)
[2021-07-31] MEDS: IPRATROPIUM-ALBUTEROL 3 ML NEB INHALATION SCH ×4 (08:33→20:58)
[2021-07-31] MEDS: ASPIRIN 81 MG PO SCH (08:36)
[2021-07-31] MEDS ORDERED: QUEtiapine 50 MG TAB PO SCH (09:00)
[2021-07-31] MEDS ORDERED: BUMETANIDE 0.25 MG/ML 10 ML VIAL IV ONE (09:00)
--- NOTE | 2021-07-31 10:26 | P.PN ---
Subjective Progress Note Date: 07/31/21 Principal diagnosis: Mitral valve regurgitation, tricuspid valve regurgitation, and coronary artery disease. Past medical history significant for coronary artery disease with prev ious myocardial infarction and PCI, hypertension, hyperlipidemia, chronic persistent atrial fibrillation on Coumadin for anticoagulation as an outpatient, status post cardioversion, sick sinus syndrome, status post [facility] permanent pacemaker placement in 2017, chronic systolic heart failure, atrial septal defect status post closure, history of MitraClip in 2019, chronic renal insufficiency, remote history of tobacco dependence, restrictive lung disease, obstructive sleep apnea, recurrent right pleural effusions with history of 4 previous thoracentesis, remote history of pneumonia, and a family history of premature coronary artery disease. Preoperative nasal screening positive for MSSA, treated. POD #3 mitral valve replacement with 31 mm Mosaic porcine valve prosthesis, tricuspid valve repair with 30 mm MC3 band, coronary artery bypass grafting 1 with reverse greater saphenous vein graft to the obtuse marginal coronary artery, endovascular vein harvest of the left greater saphenous vein, epi-aortic ultrasound, closure of the left atrial appendage, closure of atrial septal defect. Postoperative acute blood loss anemia and thrombocytopenia, expected given hemodilution and cardiopulmonary bypass pump. Coagulopathy, unexpected, last coumadin dose was on 07/22/21. The patient was seen in follow-up today 07/31/2021 at his bedside in the intensive care unit. Currently he is sitting up to the bedside chair, is awake, alert with periods of confusion. The patient reports that he feels like he is at home and wants to get up and get some chores done. [facility] also [facility]. Oxygen saturations are 98% on AirVo support of 60 L/min and FiO2 80% and is achieving 750-1000 mL on his incentive spirometry with encouragement. Bedside telemetry showing a paced rhythm at 80 BPM. Ventricular epicardial pacemaker wires were main and intact and a is currently on a VVI mode of 80 BPM. Dopamine drip is infusing at 1 mcg/kg/m for renal perfusion. Left pleural chest tube remains in place to low continuous wall suction -20 cm H2O. No air leak is present. Draining thin serosanguineous drainage with 440 mL output the last 8 hours and 1140 mL output in the last 24 hours. The patient had a right chest pigtail catheter placed by Dr. Paul Jay in yesterday 07/30/2021. The pigtail catheter remains in place to low continuous wall suction -20 cm H2O. There is no air leak present. Draining thin serosanguineous drainage with 280 mL output in the last 8 hours and 2800 mL output since the catheter has been placed. Chest x-ray this morning has been reviewed. Laboratory results have been reviewed. Hemoglobin this morning is 7.6, platelets 63, PT 12.3, INR is 1.2, BUN 49, and creatinine 2.17. Due to the patient's INR of 6.5 yesterday 07/30/2021 he was transfused for 2 units of FFP and he was also transfused for 1 unit of PRBCs for hemoglobin of 6.6. Right IJ cordis remains in place with current CVP pressure showing a 14 mmHg. Due to his confusion this morning he was given a dose of Haldol 5 mg IV 1. The patient denies any complaints of pain or shortness of breath at this time. Objective - Vital Signs Vital signs: Vital Signs Temp 98.8 F 07/31/21 04:00 Pulse 80 07/31/21 08:43 Resp 19 07/31/21 07:00 BP 115/68 07/31/21 07:00 Pulse Ox 95 07/31/21 08:22 Intake & Output 07/30/21 07/31/21 07/31/21 18:59 06:59 18:59 Intake Total 2470.569 312 44.844 Output Total 2840 1425 110 Balance -369.431 -1113 -65.156 Weight 81.5 kg Intake: IV 467 312 26 CO/CI 50 Lactated Ringers 1,000 ml 330 240 20 @ 20 mls/hr IV .Q24H [facility] Rx#:[id number] Pressure Bags 87 72 6 Intake, IV Titration 318.569 18.844 Amount DOPamine DRIP 800 mg In 65.165 18.844 Dextrose/Water 1 250ml. bag @ 3 MCG/KG/MIN 4.168 mls/hr IV .Q24H [facility] Rx#: [id number] Insulin Regular 100 unit 5.900 In Sodium Chloride 0.9% 100 ml @ Per Protocol IV .Q0M [facility] Rx#:[id number] Norepinephrine 4 mg In 247.504 Sodium Chloride 0.9% 250 ml @ 0.05 MCG/KG/MIN 14. 116 mls/hr IV .Q18H [facility] Rx#:[id number] Blood Product 1685 Ffp 24 Pher Acda Unit 243 [id number] Ffp 24 Pher Acda Cnt1 261 Unit [id number] Rc As-1 Unit 310 [id number] Output: Drainage [address] x2 60 Right Posterior 2180 490 30 Urine 330 375 40 Other: Voiding Method Indwelling Catheter Indwelling Catheter ABP, PAP, CO, CI - Last Documented Arterial Blood Pressure 119/35 Pulmonary Artery Pressure 35/28 Cardiac Output 5.0 Cardiac Index 2.7 - Exam CONSTITUTIONAL: Sitting up to the bedside chair in the intensive care unit, currently is confused, restless, and is in no apparent acute distress. HEENT: Neck is supple, no JVD, no lymphadenopathy. Right IJ Cordis in place and functioning. RESPIRATORY: Lungs sounds essentially clear throughout, diminished to his bilateral bases. Respirations are symmetrical and nonlabored. Currently on AirVo with 80% FiO2, oxygen saturations 98%. Able to achieve 750 -1000 mL on his incentive spirometry. Strong cough. CARDIOVASCULAR: Regular rhythm and rate. S1 and S2 present, negative for S3, gallop or murmur. Sternum is stable. Palpable peripheral pulses bilaterally. No calf pain or tenderness noted. Heart hugger in place with patient demonstrating appropriate use with encouragement. Knee-high SUMI hose and sequential compression devices in place to his bilateral lower extremities. GASTROINTESTINAL: Abdomen soft, nontender, nondistended. Hypoactive bowel sounds present 4 quadrants. Tolerating diet. No guarding or rigidity. GENITOURINARY: Cortes present draining clear, yellow urine. Urine output 275 mL in the last 8 hours. INTEGUMENTARY: Skin is warm and dry with no evidence of clubbing or cyanosis. Midline sternal incision clean dry and well approximated, covered with dry intact dressing. Left lower extremity EVH site well approximated without redness or drainage. NEUROLOGIC: Cranial nerves II through XII intact. No focal deficits. MUSKULOSKELETAL: Able to move all extremities, strength equal bilaterally, generalized weakness. PSYCHIATRIC: Alert and oriented to person, appropriate affect. Restless. INVASIVE LINES AND TUBES: Right chest pigtail catheter and left pleural chest tube present and connected to low continuous wall suction, no air leak present. Right chest pigtail catheter with 280 mL of thin serosanguineous drainage overnight, 2800 mL output in the last 24 hours. Left pleural chest tube with 440 mL of thin serosanguineous drainage overnight, 1140 mL output in the last 24 hours. Ventricular epicardial pacemaker wires present, connected to generator, VVI mode rate of 80 bpm. Right internal jugular Cordis, right radial arterial line present. Current CVP 14 mmHg. - Allied health notes Allied health notes reviewed: nursing - Labs CBC & Chem 7: 07/31/21 04:22 07/31/21 04:22 Labs: Abnormal Lab Results - Last 24 Hours (Table) 07/22/21 07/30/21 07/30/21 Range/Units 08:58 11:51 11:57 RBC (4.30-5.90) m/uL Hgb (13.0-17.5) gm/dL Hct (39.0-53.0) % RDW (11.5-15.5) % Plt Count (150-450) k/uL Lymphocytes # (1.0-4.8) k/uL PT 22.6 H (9.0-12.0) sec INR 2.3 H (<1.2) Sodium (137-145) mmol/L Carbon Dioxide (22-30) mmol/L BUN (9-20) mg/dL Creatinine (0.66-1.25) mg/dL Glucose (74-99) mg/dL POC Glucose (mg/dL) 182 H (75-99) mg/dL Calcium (8.4-10.2) mg/dL AST (17-59) U/L Total Protein (6.3-8.2) g/dL Albumin (3.5-5.0) g/dL Crossmatch See Detail 07/30/21 07/30/21 07/31/21 Range/Units 16:45 20:01 04:22 RBC 2.43 L (4.30-5.90) m/uL Hgb 7.6 L (13.0-17.5) gm/dL Hct 23.2 L (39.0-53.0) % RDW 15.6 H (11.5-15.5) % Plt Count 63 L (150-450) k/uL Lymphocytes # 0.4 L (1.0-4.8) k/uL PT (9.0-12.0) sec INR (<1.2) Sodium (137-145) mmol/L Carbon Dioxide (22-30) mmol/L BUN (9-20) mg/dL Creatinine (0.66-1.25) mg/dL Glucose (74-99) mg/dL POC Glucose (mg/dL) 176 H 183 H (75-99) mg/dL Calcium (8.4-10.2) mg/dL AST (17-59) U/L Total Protein (6.3-8.2) g/dL Albumin (3.5-5.0) g/dL Crossmatch 07/31/21 07/31/21 07/31/21 Range/Units 04:22 04:22 06:50 RBC (4.30-5.90) m/uL Hgb (13.0-17.5) gm/dL Hct (39.0-53.0) % RDW (11.5-15.5) % Plt Count (150-450) k/uL Lymphocytes # (1.0-4.8) k/uL PT 12.3 H (9.0-12.0) sec INR 1.2 H (<1.2) Sodium 136 L (137-145) mmol/L Carbon Dioxide 20 L (22-30) mmol/L BUN 49 H (9-20) mg/dL Creatinine 2.17 H (0.66-1.25) mg/dL Glucose 132 H (74-99) mg/dL POC Glucose (mg/dL) 163 H (75-99) mg/dL Calcium 8.1 L (8.4-10.2) mg/dL AST 71 H (17-59) U/L Total Protein 5.0 L (6.3-8.2) g/dL Albumin 3.0 L (3.5-5.0) g/dL Crossmatch - Imaging and Cardiology Chest x-ray: report reviewed, image reviewed Assessment and Plan Assessment: 1. Mitral valve regurgitation, history of MitraClip in 2019, status post post mitral valve replacement 2. Tricuspid valve regurgitation, status post tricuspid valve repair 3. Coronary artery disease with previous myocardial infarction and PCI, status post 1 vessel CABG 4. History of hypertension, currently hypotensive on levo and dopamine 5. Chronic atrial fibrillation on Coumadin for anticoagulation status post cardioversion, status post closure of the left atrial appendage 6. Sick sinus syndrome status post [facility] [facility] permanent pacemaker placement in 2017 7. Chronic systolic heart failure 8. Atrial septal defect status post closure 9. Chronic renal insufficiency 10. Previous tobacco dependence 11. Severe restrictive lung disease, preoperative FEV1 47% of predicted 12. Recurrent right-sided pleural effusion, patient had right sided thoracentesis twice in 2019 and twice in 2020 13. Obstructive sleep apnea 14. Remote history of pneumonia 15. Family history of premature coronary artery disease 16. Postoperative acute blood loss anemia and thrombocytopenia, expected 17. Coagulopathy, unexpected Plan: 1. Continue low-dose aspirin, statin. Will hold Plavix and beta shila for now, we will restart when able. We will restart his Coumadin when able. 2. Increase dopamine to 2 mcg/kg/m. 3. Wean O2 as tolerated. Encourage incentive spirometry use 10 times every hour while awake. Bronchodilators per pulmonology. 4. Increase activity as tolerated. PT/OT/cardiac rehab following. 5. Will monitor daily labs and chest x-rays. Hit panel results pending. Continue to follow PT and INR results. 6. GI/DVT prophylaxis. Hold heparin subcu for platelet count less than 100,000 7. Insulin management per primary care service. Patient is not diabetic, preoperative hemoglobin A1c 5.8% 8. Pain control current medication regimen. Avoid narcotics due to his confusion. 9. Continue Cordis, arterial line for another 24 hours. 10. Continue left pleural chest tube and right chest pigtail catheter for anoth er 24 hours. 11. Continue Cortes catheter for another 24 hours for strict accurate intake and output. Daily weights 12. Start Seroquel 50 mg by mouth twice a day for his confusion. 13. Encourage nutrition. Send a Pre-albumin level. Start nutritional supplements Glucerna 3 times a day with meals. 14. Bumex 2 mg IV 1 per cardiology recommendations. 15. More recommendations to follow based on patient's progress Time with Patient: Greater than 30
[2021-07-31] MEDS: DEXTROSE/WATER 1 250ML.BAG with DOPamine DRIP 800 MG IV SCH (10:33)
[2021-07-31] MEDS: FOLIC ACID 1 MG TAB PO SCH (10:35)
[2021-07-31] MEDS: MUPIROCIN 2% OINT 22 GM TUBE NASAL SCH ×2 (10:36→20:15)
--- NOTE | 2021-07-31 10:56 | P.PN ---
Subjective Progress Note Date: 07/31/21 Principal diagnosis: Status post mitral valve replacement, tricuspid valve repair, and single-vessel bypass surgery. Pulmonary consult dated 07/28/2021. 81-year-old male, that is seen in room 251, postop day #0, status post mitral valve replacement, tricuspid valve repair, and single-vessel bypass grafting, SVG to OM. The patient is seen in the intensive care unit. The patient is on the ventilator, with vent settings of volume assist control, rate of 14, tidal volume 500, FiO2 100%, and PEEP of 5. Arterial blood gases are currently pending. Blood gases in the operating room show pO2 of 97, pCO2 41, and pH is 7.37. His most recent cardiac output was 4.9 with index of 2.6. The patient was on norepinephrine at 5 g a minute and nitroglycerin at 5 mcg/m. The patien t received 2 units of platelets, 2 units of fresh frozen plasma, and 2 500 bags of albumin. Estimated blood loss was 3000 mL. Additional labs, and x-ray is currently pending. The patient has a history of chronic heart failure, and renal insufficiency, among other things. Progress note dated 07/29/2021. This is a 81-year-old male, seen in room 251. He's postop day #1, status post mitral valve replacement, tricuspid valve repair, and single-vessel bypass grafting, SVG to obtuse marginal. The patient was extubated yesterday after about 7 to 7.5 hours. He's currently on 8 L high flow nasal O2. He is getting lactated Ringer's at 50 mL an hour, norepinephrine at 6.4 mcg/m, dopamine at 3 m cg/kg/m, and insulin at 1 unit an hour. White count 9.5, hemoglobin 7.5, hematocrit 23.9, and platelet count 80,000. The patient's PTT was 41.8. Sodium 144, potassium 4.2, chlorides 113, CO2 22, anion gap 9, BUN 37, creatinine 1.46. Albumin is 3.2. Chest x-ray shows some atelectasis at the left lung base, and loculated pleural effusion on the right side. Postsurgical changes are also noted. Progress note dated 07/30/2021. 81-year-old male, again seen in room 251. The patient is postop day #2, status post mitral valve replacement, tricuspid valve repair, and single-vessel bypass grafting, SVG to obtuse marginal. The patient is currently on AIRVO at 60 L/m with an FiO2 of 80%. The right-sided effusion, appears worse on today's chest x-ray. The patient's on lactated Ringer's at 50 mL an hour, dopamine at 3 mcg/kg/m, norepinephrine at 5 mcg/m, and insulin drip at 1.5 units an hour. I did speak to Dr. Collado, about what to do next for the right sided pleural effusion. He was can give the patient some vitamin K and fresh frozen plasma, and do a chest tube placement for a pigtail catheter placement. I did offer to do thoracentesis if his coagulopathy is reversed. Final decision was not made. White count 11.5, hemoglobin 6.6, hematocrit 21.1, and platelet count 80,000. PTT is 66, INR is 6.5. Sodium 137, potassium 4.1, chlorides 108, CO2 20, BUN 40, creatinine 2.01. Albumin 3.1. Chest x-ray shows cardiomegaly, postoperative changes, and a worsening right-sided effusion. Progress note dated 07/31/2021. 81-year-old male, again seen in room 251. The patient is postoperative day #3, status post mitral valve replacement, tricuspid valve appear, and single-vessel bypass grafting, SVG to OM. The patient is currently on AIRVO, at 60 L/m with an FiO2 of 60%. Yesterday, Dr. Collado placed a right-sided pigtail catheter, because of chronic right-sided pleural effusion. The patient is currently getting Bumex, and Seroquel. The patient may also be placed on dexmedetomidine. Lactated Ringer's is running at 20 mL an hour. Dopamine has been weaned off. Labs include a white count 8.3, hemoglobin 7.6, hematocrit 23.2, and platelet count of 63,000. Sodium 136, potassium 4.4, chlorides 107, CO2 20, BUN 49, and creatinine 2.17. Anion gap normal. Albumin is 3. Chest x-ray shows cardiomegaly, with increased interstitial densities bilaterally. There is soni becca a component of fluid overload/increased pulmonary vascular congestion. A right-sided pigtail catheter is noted. There is a moderate right-sided pleural effusion. A left chest tube is in place. Objective - Vital Signs Vital signs: Vital Signs Temp 98.8 F 07/31/21 04:00 Pulse 80 07/31/21 10:00 Resp 6 L 07/31/21 10:00 BP 111/79 07/31/21 10:00 Pulse Ox 93 L 07/31/21 10:00 Intake & Output 07/30/21 07/31/21 07/31/21 18:59 06:59 18:59 Intake Total 2470.569 312 113.844 Output Total 2840 1425 426 Balance -369.431 -1113 -312.156 Weight 81.5 kg Intake: IV 467 312 95 CO/CI 50 Lactated Ringers 1,000 ml 330 240 80 @ 20 mls/hr IV .Q24H [facility] Rx#:[id number] Pressure Bags 87 72 15 Intake, IV Titration 318.569 18.844 Amount DOPamine DRIP 800 mg In 65.165 18.844 Dextrose/Water 1 250ml. bag @ 3 MCG/KG/MIN 4.168 mls/hr IV .Q24H [facility] Rx#: [id number] Insulin Regular 100 unit 5.900 In Sodium Chloride 0.9% 100 ml @ Per Protocol IV .Q0M [facility] Rx#:[id number] Norepinephrine 4 mg In 247.504 Sodium Chloride 0.9% 250 ml @ 0.05 MCG/KG/MIN 14. 116 mls/hr IV .Q18H [facility] Rx#:[id number] Blood Product 1685 Ffp 24 Pher Acda Unit 243 [id number] Ffp 24 Pher Acda Cnt1 261 Unit [id number] Rc As-1 Unit 310 [id number] Output: Drainage [address] x2 60 Right Posterior 2180 490 120 Urine 330 375 166 Other: Voiding Method Indwelling Catheter Indwelling Catheter ABP, PAP, CO, CI - Last Documented Arterial Blood Pressure 119/35 Pulmonary Artery Pressure 35/28 Cardiac Output 5 Cardiac Index 2.7 - Exam No acute distress, sitting up in the chair, currently on AIRVO. HEENT examination is grossly unremarkable. Neck supple. Full range of motion. No adenopathy thyromegaly or neck vein distention. Cardiovascular examination reveals regular rhythm rate. S1-S2 normal. No S3 or S4. No discernible murmur noted. Heart rate 80 bpm Lungs reveal mostly clear breath sounds. Breath sounds are equal bilaterally. Mild scattered rhonchi are noted. No wheezes or crackles. Saturations are 93%. A left-sided chest tube was noted. A right-sided pigtail catheter is noted. Abdomen soft, without bowel sounds. Extremities are intact. No cyanosis clubbing or edema. Skin is without rash or lesion. Neurologic examination is brief but nonfocal. - Labs CBC & Chem 7: 07/31/21 04:22 07/31/21 04:22 Labs: Abnormal Lab Results - Last 24 Hours (Table) 07/30/21 07/30/21 07/30/21 Range/Units 11:51 11:57 16:45 RBC (4.30-5.90) m/uL Hgb (13.0-17.5) gm/dL Hct (39.0-53.0) % RDW (11.5-15.5) % Plt Count (150-450) k/uL Lymphocytes # (1.0-4.8) k/uL PT 22.6 H (9.0-12.0) sec INR 2.3 H (<1.2) Sodium (137-145) mmol/L Carbon Dioxide (22-30) mmol/L BUN (9-20) mg/dL Creatinine (0.66-1.25) mg/dL Glucose (74-99) mg/dL POC Glucose (mg/dL) 182 H 176 H (75-99) mg/dL Calcium (8.4-10.2) mg/dL AST (17-59) U/L Total Protein (6.3-8.2) g/dL Albumin (3.5-5.0) g/dL 07/30/21 07/31/21 07/31/21 Range/Units 20:01 04:22 04:22 RBC 2.43 L (4.30-5.90) m/uL Hgb 7.6 L (13.0-17.5) gm/dL Hct 23.2 L (39.0-53.0) % RDW 15.6 H (11.5-15.5) % Plt Count 63 L (150-450) k/uL Lymphocytes # 0.4 L (1.0-4.8) k/uL PT (9.0-12.0) sec INR (<1.2) Sodium 136 L (137-145) mmol/L Carbon Dioxide 20 L (22-30) mmol/L BUN 49 H (9-20) mg/dL Creatinine 2.17 H (0.66-1.25) mg/dL Glucose 132 H (74-99) mg/dL POC Glucose (mg/dL) 183 H (75-99) mg/dL Calcium 8.1 L (8.4-10.2) mg/dL AST 71 H (17-59) U/L Total Protein 5.0 L (6.3-8.2) g/dL Albumin 3.0 L (3.5-5.0) g/dL 07/31/07/31/21 Range/Units 04:22 06:50 RBC (4.30-5.90) m/uL Hgb (13.0-17.5) gm/dL Hct (39.0-53.0) % RDW (11.5-15.5) % Plt Count (150-450) k/uL Lymphocytes # (1.0-4.8) k/uL PT 12.3 H (9.0-12.0) sec INR 1.2 H (<1.2) Sodium (137-145) mmol/L Carbon Dioxide (22-30) mmol/L BUN (9-20) mg/dL Creatinine (0.66-1.25) mg/dL Glucose (74-99) mg/dL POC Glucose (mg/dL) 163 H (75-99) mg/dL Calcium (8.4-10.2) mg/dL AST (17-59) U/L Total Protein (6.3-8.2) g/dL Albumin (3.5-5.0) g/dL Assessment and Plan Assessment: Postop day #3, status post mitral valve replacement, tricuspid valve repair, and single-vessel bypass grafting, saphenous vein graft to OM. Routine postoperative ventilator management, with successful extubation on 07/28/2021. Postop day #1, status post right-sided pigtail catheter placement for right- sided pleural effusion. Chronic, and worsening, right-sided pleural effusion. History of congestive heart failure. History of valvular heart disease, with previous mitral valve repair, with a MitraClip. Coronary artery disease. History of hyperlipidemia. History of renal insufficiency. Multiple medical problems and comorbidities. Plan: Plan dated 07/28/2021. The patient just arrived back to the intensive care unit. We'll await the chest x-ray in the blood gases. Additional recommendations and suggestions are forthcoming. The patient is currently on updrafts every 4 [id number]. We will continue to follow the patient, and attempt to get the patient extubated as soon as possible. In addition, post extubation, we will continue to work with the patient, to maintain normal lung function, and prevent atelectasis, lobar collapse, pleural effusion, or pneumonia. Plan dated 07/29/2021. The patient remains on norepinephrine at 6.4 mcg/m, dopamine at 3 mcg/kg/m, insulin at 1 unit an hour, and lactated Ringer's at 50 mL an hour. The patient is also on 8 L high flow nasal O2. Chest x-ray continues to show what appears to be a loculated effusion on the right. This is not acute. The patient did receive 2 units of fresh frozen plasma, 2 units of platelets, 1 unit of blood, and albumin. The patient was extubated about 7 or so hours post leaving the operating room. The patient remains in the intensive care unit. We encourage deep breathing, coughing, and clearing her secretions. We also recommend hourly use of the incentive spirometer. Plan dated 07/30/2021. The patient remains on dopamine, norepinephrine, and insulin. No decision has been made yet about the right-sided pleural effusion. The patient was going to give some vitamin K, fresh frozen plasma, and at least one unit of blood. Dr. Collado will decide about a chest tube, versus pigtail catheter, versus bedside thoracentesis. Additional recommendations and suggestions are forthcoming. We'll continue to follow. Prognosis is guarded. The patient is again recommended to use the incentive spirometer every hour while awake, and continue with deep breathing, coughing, and clearing of secretions. Plan dated 07/31/2021. The patient still has a very long way to go. The patient remains on AIRVO at 60 L/m with an FiO2 of 60%. The patient is getting some Bumex a day, and also some Seroquel for some mental status changes. In addition, a right-sided pigtail catheter was placed yesterday. The patient's dopamine has been weaned down. Additional recommendations and suggestions are forthcoming. Labs, x-rays, and medications are all reviewed. Prognosis is guarded. We will continue to follow the patient and make recommendations where appropriate. Time with Patient: Greater than 30
[2021-07-31 12:25] LABS: Glucose,Whole Blood 151 mg/dL (75-99)
[2021-07-31] MEDS: DEXMEDETOMIDINE/0.9% NACL(PMX) 400 MCG in EMPTY BAG 1 BAG IV SCH ×2 (14:22→21:15)
[2021-07-31 16:34] LABS: Glucose,Whole Blood 113 mg/dL (75-99)
[2021-07-31] MEDS: BUMETANIDE 0.25 MG/ML 10 ML VIAL IV SCH (16:34)
[2021-07-31] MEDS: NOREPINEPHRINE 4 MG in SODIUM CHLORIDE 0.9% 250 ML IV SCH (19:40)
[2021-07-31] MEDS: CALCIUM ACETATE 667 MG TAB PO SCH (20:15)
[2021-07-31] MEDS: SENNOSIDES-DOCUSATE SODIUM 1 EACH TAB PO SCH (20:15)
[2021-07-31] MEDS: ATORVASTATIN 40 MG TAB PO SCH (20:15)
[2021-07-31 20:18] LABS: Glucose,Whole Blood 139 mg/dL (75-99)
[2021-07-31] MEDS ORDERED: QUEtiapine 25 MG TAB PO PRN (21:00)
[2021-08-01] MEDS: HEPARIN SODIUM,PORCINE/PF 5,000 UNIT/0.5 ML SYRINGE SQ SCH ×4 (00:08→23:53)
[2021-08-01] MEDS: BUMETANIDE 0.25 MG/ML 10 ML VIAL IV SCH ×4 (00:09→23:58)
[2021-08-01 06:41] LABS: Glucose,Whole Blood 121 mg/dL (75-99)
[2021-08-01] MEDS: NOREPINEPHRINE 4 MG in SODIUM CHLORIDE 0.9% 250 ML IV SCH (06:42)
[2021-08-01] MEDS: INSULIN ASPART (NovoLOG) 100 UNIT/ML VIAL SQ SCH ×4 (06:42→21:35)
[2021-08-01] MEDS: LACTATED RINGERS 1,000 ML IV SCH (06:45)
[2021-08-01] MEDS: PANTOPRAZOLE 40 MG TABLET PO SCH (06:45)
--- NOTE | 2021-08-01 07:36 | P.PN ---
Subjective HISTORY OF PRESENTING ILLNESS Patient is pleasant 81-year-old male with history of coronary artery disease status post PCI of the RCA and circumflex, CKD, persistent atrial fibrillation, sick sinus syndrome status post permanent pacemaker, pulmonary hypertension, systolic heart failure, PFO status post PFO closure, mitral regurgitation and tricuspid regurgitation status post initial mitral clip. He follows in the office with Dr. Diego. He has been having issues with recurrent mainly left- sided heart failure with recurrent pleural effusions requiring thoracentesis. Initially he had a mitral clip performed which reduce the severe mitral in sufficiency from 4+ to 2-3+ regurgitation however has had recurrent admissions for heart failure. Therefore workup was performed which showed 3+ mitral regurgitation as well as severe tricuspid regurgitation and heart catheterization showed obstructive circumflex disease. Therefore patient underwent mitral valve replacement, tricuspid valve repair and CABG 1 with SVG to OM as well as closure of ASD from the mitral clip and closure of left atrial appendage on 07/28/2020. Patient seen and examined 07/29. He denies any chest pain or pressure. He states that overall he is feeling "okay". He was able to tolerate clear liquid this morning. He has pacemaker set at 80, current cardiac index in the 2.4-3.1 range. PA pressures around 31/35 with a CVP of 15. He is getting lactated Ringer's at 50 mL per hour. He is still on low dose of norepinephrine as well as dopamine. His platelets decreased to 80 and therefore heparin and Plavix have been held for today. Hemoglobin 7.5 today 07/30 Patient seen and examined. Patient's creatinine worsening and worsened respiratory status. Chest x-ray shows increased right pleural effusion. He has remained on norepinephrine as well as dopamine with borderline blood pressures. Cardiac output 5.3, cardiac index 2.9 this morning. Admits to mild appetite. He was given Bumex last night. 07/31 Patient seen and examined. Patient had confusion overnight and received Haldol however still confused this morning thinking he is in his garage. He denies any chest pain or pressure. He did have a right chest tube placed yesterday. Norepinephrine was discontinued yesterday and dopamine is down to 1. He has not been eating much. No bowel movement per nursing. He did receive packed red blood cell yesterday. Creatinine mildly increased at 2.1 today. 08/01 Patient seen and examined. Patient continues to have some altered mental status and requiring one-to-one sitter. Remains paced at 80 bpm. On low-dose of dopamine at 2. Denies any chest pain or pressure. States he has small appetite however has not been eating much of his food. He was placed on Bumex 2 mg every 8 hours. Blood work from this morning is pending. Blood pressures fairly borderline with maps mainly in the 70s. PHYSICAL EXAMINATION Vital signs reviewed. CONSTITUTIONAL: No apparent distress, ill appearing HEENT: Head is normocephalic. Pupils are equal, round. Sclerae anicteric. Mucous membranes of the mouth are moist. No JVD. No carotid bruit. CHEST EXAMINATION: Lungs are clear to auscultation. Decreased breath sounds bilaterally HEART EXAMINATION: Regular rate and rhythm. S1, S2 heard. No murmurs, gallops or rub. ABDOMEN: Soft, nontender. Positive bowel sounds. EXTREMITIES: 2+ peripheral pulses, no lower extremity edema and no calf tenderness. NEUROLOGIC EXAMINATION: Patient is awake, alert and oriented x3. ASSESSMENT 1. S/p mitral valve replacement, tricuspid repair and one-vessel CABG SVG to OM 07/28, closure of ASD 2. History of mitral insufficiency status post initial mitral clip with continued preoperative mitral insufficiency 3. Coronary artery disease with prior history of PCI and most recent CABG 4. Permanent atrial fibrillation 5. Sick sinus syndrome status post permanent pacemaker 6. Pulmonary hypertension group 2 7. Postoperative anemia 8. Thrombocytopenia 9. Chronic systolic heart failure, mildly elevated CVP and PA pressures 10. Altered mental status 11. Acute kidney injury PLAN Patient continues to have slow recovery however appears somewhat stable over the last 24 hours. He was able to get some sleep on the Precedex drip. Previous cardiac outputs appeared adequate and continue to wean dopamine as able. We will check 2-D echo for completeness to rule out any complications or changes that could be affecting his recovery. Still appears fine overloaded and agree with diuresis. Ideally add afterload reduction to help with cardiac output and may attempt low-dose of hydralazine or losartan pending progress however blood pressures remain borderline. Prognosis guarded. Objective - Vital Signs Vital signs: Vital Signs Temp 97.7 F 08/01/21 04:00 Pulse 80 08/01/21 07:00 Resp 18 08/01/21 07:00 BP 97/68 08/01/21 07:00 Pulse Ox 90 L 04/01/22 07:00 Intake & Output 07/31/21 08/01/21 08/01/21 18:59 06:59 18:59 Intake Total 297.844 669.791 23 Output Total 1496 1400 160 Balance -1198.156 -730.209 -137 Weight 81.5 kg 78.6 kg Intake: IV 279 276 23 Lactated Ringers 1,000 ml 240 240 20 @ 20 mls/hr IV .Q24H [facility] Rx#:[id number] Pressure Bags 39 36 3 Intake, IV Titration 18.844 33.791 Amount DOPamine DRIP 800 mg In 18.844 Dextrose/Water 1 250ml. bag @ 3 MCG/KG/MIN 4.168 mls/hr IV .Q24H [facility] Rx#: [id number] Dexmedetomidine/0.9% NaCl 33.791 (Pmx) 400 mcg In Empty Bag 1 bag @ 0.2 MCG/KG/HR 4.075 mls/hr IV .Q24H [facility] Rx#:[id number] Oral 350 Tube Feeding 10 Output: Drainage [address] 320 270 100 Right Posterior 180 45 0 Urine 996 1085 60 Other: Voiding Method Indwelling Catheter Indwelling Catheter ABP, PAP, CO, CI - Last Documented Arterial Blood Pressure 119/35 Pulmonary Artery Pressure 35/28 Cardiac Output 5 Cardiac Index 2.7 - Labs CBC & Chem 7: 07/31/21 04:22 07/31/21 04:22 Labs: Abnormal Lab Results - Last 24 Hours (Table) 07/31/21 07/31/21 07/31/21 Range/Units 04:22 12:23 16:32 POC Glucose (mg/dL) 151 H 113 H (75-99) mg/dL Prealbumin 8.4 L (18.0-42.0) mg/dL 07/31/21 08/01/21 Range/Units 20:17 06:40 POC Glucose (mg/dL) 139 H 121 H (75-99) mg/dL Prealbumin (18.0-42.0) mg/dL
--- NOTE | 2021-08-01 07:51 | XR ---
EXAMINATION TYPE: XR chest 1V portable DATE OF EXAM: 08/01/2021 COMPARISON: 07/31/2021 INDICATION: Post cardiac surgery TECHNIQUE: Single frontal view of the chest is obtained. FINDINGS: The heart size is mildly prominent. The pulmonary vasculature is prominent. Diffuse increased lung markings are present bilaterally. Left-sided chest tube is present. No pneumot horax on the left is evident, previous minimal apical pneumothorax may have resolved or could be obsc ured by projection angle. Right-sided chest catheter is present small right pleural fluid collection is present extending along the lateral margin of the chest. The previous right basilar linear findin g may be present but is less apparent on the current exam. IMPRESSION: 1. Small right pleural fluid. 2. Left-sided chest tube with right-sided catheter present. No large pneumothorax is present. 3. Pulmonary edema or volume overload
[2021-08-01] MEDS: IPRATROPIUM-ALBUTEROL 3 ML NEB INHALATION SCH ×4 (07:56→21:19)
--- NOTE | 2021-08-01 09:02 | P.PN ---
Subjective Progress Note Date: 08/01/21 Principal diagnosis: Mitral valve regurgitation, tricuspid valve regurgitation, coronary artery disease. Previous medical history of CAD with previous cardial infarction and PCI, hypertension, chronic atrial fibrillation on Coumadin for anticoagulation status post cardioversion, sick sinus syndrome [facility] permanent pacemaker placement in 2017, chronic systolic heart failure, atrial septal defect status post closure, previous MitraClip in 2019, chronic renal insufficiency, previous tobacco dependence, severe restrictive lung disease, obstructive sleep apnea, recurrent right-sided pleural effusio with previous thoracentesis x 4, remote history of pneumonia, family history of premature coronary artery disease POD #4 mitral valve replacement with 31 mm Mosaic porcine valve prosthesis, tricuspid valve repair with 30 mm MC3 band, coronary artery bypass grafting 1 with reverse saphenous vein graft to the obtuse marginal artery, endovascular vein harvest of the left greater saphenous vein, epi-aortic ultrasound, closure of the left atrial appendage, closure of ASD Postoperative acute blood loss anemia and thrombocytopenia, expected given hemodilution and cardiopulmonary bypass pump Coagulopathy, unexpected, last coumadin dose 07/22/21 The patient was seen and examined this morning sitting up in a recliner in the intensive care unit. He denies any pain or shortness of breath, remains on AirVo. Remains ventricular paced at 80 bpm. Still on IV dopamine, off Levophed for 48 hours, beta shila remains on hold. Labs and x-rays revealed this morning. Urine output has picked up, was started on Bumex 2 mg IV push 3 times a day, currently has negative fluid balance. Right internal jugular Cordis, left pleural chest tube and right pigtail catheter all remain. Patient was confused and agitated yesterday morning, was started on Seroquel as needed and IV Precedex, patient was able to get some sleep. This morning he is a bit sleepy but does answer questions appropriately and is oriented to person, place, time, situation. Patient consuming minimal food, pre-albumin 8.4. Objective - Vital Signs Vital signs: Vital Signs Temp 97.7 F 08/01/21 04:00 Pulse 81 08/01/21 08:10 Resp 18 08/01/21 07:00 BP 97/68 08/01/21 07:00 Pulse Ox 94 L 08/01/21 07:56 Intake & Output 07/31/21 08/01/21 08/01/21 18:59 06:59 18:59 Intake Total 297.844 669.791 23 Output Total 1496 1400 160 Balance -1198.156 -730.209 -137 Weight 81.5 kg 78.6 kg Intake: IV 279 276 23 Lactated Ringers 1,000 ml 240 240 20 @ 20 mls/hr IV .Q24H [facility] Rx#:[id number] Pressure Bags 39 36 3 Intake, IV Titration 18.844 33.791 Amount DOPamine DRIP 800 mg In 18.844 Dextrose/Water 1 250ml. bag @ 3 MCG/KG/MIN 4.168 mls/hr IV .Q24H [facility] Rx#: [id number] Dexmedetomidine/0.9% NaCl 33.791 (Pmx) 400 mcg In Empty Bag 1 bag @ 0.2 MCG/KG/HR 4.075 mls/hr IV .Q24H [facility]IL Rx#:[id number] Oral 350 Tube Feeding 10 Output: Drainage [address] 320 270 100 Right Posterior 180 45 0 Urine 996 1085 60 Other: Voiding Method Indwelling Catheter Indwelling Catheter ABP, PAP, CO, CI - Last Documented Arterial Blood Pressure 119/35 Pulmonary Artery Pressure 35/28 Cardiac Output 5 Cardiac Index 2.7 - Exam CONSTITUTIONAL: Appears comfortable, cooperative, sleepy RESPIRATORY: Lungs sounds diminished bilaterally. Respirations even, nonlabored. Currently on Airvo at 55L/60% with oxygen saturation 100%. Able to achieve 1000 mL on incentive spirometry. Strong loose cough. CARDIOVASCULAR: S1, S2 present. Ventricular paced at 80 bpm on telemetry. Sternum stable. Palpable peripheral pulses bilaterally. No edema present. No calf pain or tenderness noted. Heart hugger in place with patient demonstrating appropriate use. Antiembolism stockings, SCDs present. GASTROINTESTINAL: Abdomen soft, nontender, nondistended. Active bowel sounds present 4 quadrants. Tolerating minimal diet. Positive belching, negative flatus GENITOURINARY: Cortes present draining clear, yellow urine. Output 50-75 mL per hour overnight with good diuresis after IV Bumex, 2081 mL in last 24 hours INTEGUMENTARY: Skin is warm and dry with evidence of good perfusion. Anterior chest incision well approximated and covered with dry intact dressing. Left lower extremity EVH site well approximated without redness or drainage. NEUROLOGIC: Cranial nerves II through XII intact MUSKULOSKELETAL: Able to move all extremities, strength equal bilaterally but generalized weakness present PSYCHIATRIC: Oriented to person place and time INVASIVE LINES AND TUBES: Right pigtail/left pleural chest tube present and connected to wall suction, no air leaks present. Left pleural chest tube with 220 mL serosanguineous drainage overnight, 660 mL in the last 24 hours. Right- sided pigtail catheter with 35 mL serosanguineous drainage overnight, 225 mL the last 24 hours. Ventricular epicardial pacemaker wire present, connected to generator, VVI mode at 80 bpm. Right internal jugular Cordis present - Allied health notes Allied health notes reviewed: nursing - Labs CBC & Chem 7: 07/31/21 04:22 07/31/21 04:22 Labs: Abnormal Lab Results - Last 24 Hours (Table) 07/31/21 07/31/21 07/31/21 Range/Units 04:22 12:23 16:32 POC Glucose (mg/dL) 151 H 113 H (75-99) mg/dL Prealbumin 8.4 L (18.0-42.0) mg/dL 07/31/21 08/01/21 Range/Units 20:17 06:40 POC Glucose (mg/dL) 139 H 121 H (75-99) mg/dL Prealbumin (18.0-42.0) mg/dL - Imaging and Cardiology Chest x-ray: report reviewed, image reviewed Assessment and Plan Assessment: 1. Mitral valve regurgitation, previous MitraClip in 2019, status post post mitral valve replacement 2. Tricuspid valve regurgitation, status post tricuspid valve repair 3. Coronary artery disease with previous myocardial infarction and PCI, status post 1 vessel CABG 4. History of hypertension, currently hypotensive on dopamine 5. Chronic atrial fibrillation on Coumadin for anticoagulation status post cardioversion, status post closure of the left atrial appendage 6. Sick sinus syndrome status post [facility] permanent pacemaker placement in 2017 7. Chronic systolic heart failure 8. Atrial septal defect status post closure 9. Chronic renal insufficiency 10. Previous tobacco dependence 11. Severe restrictive lung disease, preoperative FEV1 47% of predicted 12. Recurrent right-sided pleural effusion, patient had right sided thoracentesis twice in 2019 and twice in 2020 13. Obstructive sleep apnea 14. Remote history of pneumonia 15. Family history of premature coronary artery disease 16. Postoperative acute blood loss anemia and thrombocytopenia, expected 17. Coagulopathy, unexpected Plan: 1. Continue low-dose aspirin, statin. Will hold Plavix and beta shila for now, we will restart when able. Will restart anticoagulation when able 2. Continue dopamine for now 3. Wean O2 as tolerated. Encourage incentive spirometry use 10 times every hour while awake. Bronchodilators per pulmonology. 4. Increase activity as tolerated. PT/OT/cardiac rehab following 5. Will monitor daily labs and x-rays. HIT panel negative. Continue Bumex 2 mg IV push every 8 hours 6. GI/DVT prophylaxis. Hold heparin subcu for platelet count less than 100,000 7. Insulin management per primary care service. Patient is not diabetic, preoperative hemoglobin A1c 5.8% 8. Pain control per current medication regimen. Avoid narcotics 9. Continue Cordis for another 24 hours 10. Continue left pleural chest tube and right pigtail catheter for another 24 hours 11. Continue Cortes catheter for another 24 hours for strict accurate intake and output. Daily weights 12. Encourage oral intake, encourage supplements to improve her nutrition 13. Follow-up echocardiogram ordered by cardiology, will review when available 14. Continue Seroquel as needed 15. More recommendations to follow based on patient's progress
[2021-08-01] MEDS: ASCORBIC ACID 500 MG TAB PO SCH (09:39)
[2021-08-01] MEDS: FOLIC ACID 1 MG TAB PO SCH (09:42)
[2021-08-01] MEDS: ASPIRIN 81 MG PO SCH (09:42)
[2021-08-01] MEDS: allopurinoL 100 MG TAB PO SCH (09:42)
[2021-08-01] MEDS: FERROUS SULFATE 325 MG TAB PO SCH (09:42)
[2021-08-01] MEDS: MUPIROCIN 2% OINT 22 GM TUBE NASAL SCH ×2 (09:43→21:35)
[2021-08-01 09:58] LABS: Basophils % (A) 0 %; Eosinophils % (A) 1 %; HCT 23.5 % (39.0-53.0); HGB 7.5 gm/dL (13.0-17.5); Hypochromasia Slight; Lymphocytes # (A) 0.4 k/uL (1.0-4.8); Lymphocytes % (A) 5 %; MCH 30.6 pg (25.0-35.0); MCHC 31.7 g/dL (31.0-37.0); MCV 96.4 fL (80.0-100.0); Mean Platelet Volume 9.3; Monocytes # (A) 0.5 k/uL (0-1.0); Monocytes % (A) 7 %; Neutrophils # (A) 5.8 k/uL (1.3-7.7); Neutrophils % (A) 85 %; RBC 2.44 m/uL (4.30-5.90); RDW 15.7 % (11.5-15.5); WBC 6.8 k/uL (3.8-10.6)
--- NOTE | 2021-08-01 10:02 | P.PN ---
Subjective Progress Note Date: 07/31/21 This is a 81-year-old male patient who is currently postop day 2 from mitral valve replacement, tricuspid valve repair and single-vessel bypass grafting SVG to obtuse marginal. Patient has a past medical history of valvular heart disease with symptoms including shortness of breath with exertion and unable to perform many of his activities of daily living. Additional medical history includes coronary artery disease with previous cardiac infarction and PCI, hypertension, chronic atrial fibrillation on Coumadin for and configuration status post cardioversion, sick sinus syndrome with [facility] permanent pacemaker placement 2016, chronic systolic heart failure, atrial septal defect status post closure with previous mitral clip in 2019 at [facility], chronic renal insufficiency, obstructive sleep apnea, reoccurring right-sided pleural effusions with previous thoracentesis 4. At this time patient is currently resting comfortably in the intensive care unit. Patient was successfully extubated per protocol currently on IV dopamine and Levophed. INR elevated at 6.5. hemoglobin 6.6. 1 unit PRBCs, 2 units of FFP have been ordered per surgical services INR recheck ordered for noon. Chest x-ray the same showing cardiomegaly with moderate to large right and small sized bilateral pleural effusion collection and/or effusions with mild to moderate central vascular congestion and bibasilar opacities favoring atelectasis along with left-sided chest tubes are redemonstrated. Per surgical services possible plans for Pleurx catheter placement. This time patient is resting comfortably in chair patient remains on high flow oxygen. Blood sugars have remained stable per nursing staff will transition off insulin drip to sliding scale coverage. Cardiology and critical care services are following. On 07/31/2021 patient having intermittent episodes of confusion. INR improving to 2.3. Hemoglobin 7.6. Chest tubes remain in place. Cardiology and critical care services are following. Patient remains on high flow nasal cannula. Current vitals heart rate 80, respiratory rate 16, blood pressure 104/51 Objective - Vital Signs Vital signs: Vital Signs Temp 100.4 F H 07/31/21 12:00 Pulse 80 07/31/21 15:00 Resp 16 07/31/21 15:00 BP 114/57 07/31/21 15:00 Pulse Ox 98 07/31/21 15:29 Intake & Output 07/30/21 07/31/21 07/31/21 18:59 06:59 18:59 Intake Total 2470.569 312 274.844 Output Total 2840 1425 1381 Balance -369.431 -1113 -1106.156 Weight 81.5 kg 81.5 kg Intake: IV 467 312 256 CO/CI 50 Lactated Ringers 1,000 ml 330 240 220 @ 20 mls/hr IV .Q24H [facility] Rx#:[id number] Pressure Bags 87 72 36 Intake, IV Titration 318.569 18.844 Amount DOPamine DRIP 800 mg In 65.165 18.844 Dextrose/Water 1 250ml. bag @ 3 MCG/KG/MIN 4.168 mls/hr IV .Q24H [facility]IL Rx#: [id number] Insulin Regular 100 unit 5.900 In Sodium Chloride 0.9% 100 ml @ Per Protocol IV .Q0M [facility] Rx#:[id number] Norepinephrine 4 mg In 247.504 Sodium Chloride 0.9% 250 ml @ 0.05 MCG/KG/MIN 14. 116 mls/hr IV .Q18H [facility] Rx#:[id number] Blood Product 1685 Ffp 24 Pher Acda Unit 243 [id number] Ffp 24 Pher Acda Cnt1 261 Unit [id number] Rc As-1 Unit 310 [id number] Output: Drainage [address] x2 60 Right Posterior 2180 490 170 Urine 330 375 911 Other: Voiding Method Indwelling Catheter Indwelling Catheter Indwelling Catheter ABP, PAP, CO, CI - Last Documented Arterial Blood Pressure 119/35 Pulmonary Artery Pressure 35/28 Cardiac Output 5 Cardiac Index 2.7 - Exam In general patient is alert and oriented x 3 in no distress HEENT head normocephalic and atraumatic Neck is supple no JVD no goiter no lymphadenopathy no carotid bruit Chest examination is clear to auscultation no crackles no wheezing Cardiac exam reveals regular heart sounds S1 and S2 no gallops no murmurs Abdomen is soft nontender no organomegaly with normal bowel sounds Extremity exam reveals no edema no cyanosis or clubbing Neurological examination reveals no gross focal deficits - Labs CBC & Chem 7: 07/31/21 04:22 07/31/21 04:22 Labs: Abnormal Lab Results - Last 24 Hours (Table) 07/30/21 07/31/21 07/31/21 Range/Units 20:01 04:22 04:22 RBC 2.43 L (4.30-5.90) m/uL Hgb 7.6 L (13.0-17.5) gm/dL Hct 23.2 L (39.0-53.0) % RDW 15.6 H (11.5-15.5) % Plt Count 63 L (150-450) k/uL Lymphocytes # 0.4 L (1.0-4.8) k/uL PT (9.0-12.0) sec INR (<1.2) Sodium 136 L (137-145) mmol/L Carbon Dioxide 20 L (22-30) mmol/L BUN 49 H (9-20) mg/dL Creatinine 2.17 H (0.66-1.25) mg/dL Glucose 132 H (74-99) mg/dL POC Glucose (mg/dL) 183 H (75-99) mg/dL Calcium 8.1 L (8.4-10.2) mg/dL AST 71 H (17-59) U/L Total Protein 5.0 L (6.3-8.2) g/dL Albumin 3.0 L (3.5-5.0) g/dL Prealbumin (18.0-42.0) mg/dL 07/31/21 07/31/21 07/31/21 Range/Units 04:22 04:22 06:50 RBC (4.30-5.90) m/uL Hgb (13.0-17.5) gm/dL Hct (39.0-53.0) % RDW (11.5-15.5) % Plt Count (150-450) k/uL Lymphocytes # (1.0-4.8) k/uL PT 12.3 H (9.0-12.0) sec INR 1.2 H (<1.2) Sodium (137-145) mmol/L Carbon Dioxide (22-30) mmol/L BUN (9-20) mg/dL Creatinine (0.66-1.25) mg/dL Glucose (74-99) mg/dL POC Glucose (mg/dL) 163 H (75-99) mg/dL Calcium (8.4-10.2) mg/dL AST (17-59) U/L Total Protein (6.3-8.2) g/dL Albumin (3.5-5.0) g/dL Prealbumin 8.4 L (18.0-42.0) mg/dL 07/31/21 07/31/21 Range/Units 12:23 16:32 RBC (4.30-5.90) m/uL Hgb (13.0-17.5) gm/dL Hct (39.0-53.0) % RDW (11.5-15.5) % Plt Count (150-450) k/uL Lymphocytes # (1.0-4.8) k/uL PT (9.0-12.0) sec INR (<1.2) Sodium (137-145) mmol/L Carbon Dioxide (22-30) mmol/L BUN (9-20) mg/dL Creatinine (0.66-1.25) mg/dL Glucose (74-99) mg/dL POC Glucose (mg/dL) 151 H 113 H (75-99) mg/dL Calcium (8.4-10.2) mg/dL AST (17-59) U/L Total Protein (6.3-8.2) g/dL Albumin (3.5-5.0) g/dL Prealbumin (18.0-42.0) mg/dL Assessment and Plan Assessment: 1. Status post mitral valve replacement, tricuspid valve repair and single- vessel bypass grafting. Postop day3 2. Right-sided pleural effusion 3. Coagulopathy. INR 6.5. Blood product has been ordered per surgical services repeat INR to be ordered 4. History of congestive heart failure 5. History of valvular heart disease with previous mitral valve repair with a mitral clip at [facility] 6. History of coronary artery disease 7. History of hyperlipidemia 8. History of renal insufficiency 9. Previous history of atrial fibrillation Thank you for this consultation we will continue to follow patient closely thr oughout stay Patient remains in the intensive care unit Patient currently receiving 1 unit of PRBCs and 2 units of FFP's Repeat labs ordered Patient to be transitioned off IV insulin to sliding scale coverage. A1c 5.8
--- NOTE | 2021-08-01 10:04 | P.PN ---
Subjective Progress Note Date: 08/01/21 This is a 81-year-old male patient who is currently postop day 2 from mitral valve replacement, tricuspid valve repair and single-vessel bypass grafting SVG to obtuse marginal. Patient has a past medical history of valvular heart disease with symptoms including shortness of breath with exertion and unable to perform many of his activities of daily living. Additional medical history includes coronary artery disease with previous cardiac infarction and PCI, hypertension, chronic atrial fibrillation on Coumadin for and configuration status post cardioversion, sick sinus syndrome with [facility] permanent pacemaker placement 2016, chronic systolic heart failure, atrial septal defect status post closure with previous mitral clip in 2019 at [facility], chronic renal insufficiency, obstructive sleep apnea, reoccurring right-sided pleural effusions with previous thoracentesis 4. At this time patient is currently resting comfortably in the intensive care unit. Patient was successfully extubated per protocol currently on IV dopamine and Levophed. INR elevated at 6.5. hemoglobin 6.6. 1 unit PRBCs, 2 units of FFP have been ordered per surgical services INR recheck ordered for noon. Chest x-ray the same showing cardiomegaly with moderate to large right and small sized bilateral pleural effusion collection and/or effusions with mild to moderate central vascular congestion and bibasilar opacities favoring atelectasis along with left-sided chest tubes are redemonstrated. Per surgical services possible plans for Pleurx catheter placement. This time patient is resting comfortably in chair patient remains on high flow oxygen. Blood sugars have remained stable per nursing staff will transition off insulin drip to sliding scale coverage. Cardiology and critical care services are following. On 07/31/2021 patient having intermittent episodes of confusion. INR improving to 2.3. Hemoglobin 7.6. Chest tubes remain in place. Cardiology and critical care services are following. Patient remains on high flow nasal cannula. Current vitals heart rate 80, respiratory rate 16, blood pressure 104/51 On 08/01/2021 patient is more alert currently resting comfortably in chair. Sitter is at bedside. Patient remains on high flow nasal cannula. Patient remains on IV Bumex. Cordis, chest tube and right pigtail catheter all remain in place. Objective - Vital Signs Vital signs: Vital Signs Temp 98.2 F 08/01/21 08:00 Pulse 80 08/01/21 09:00 Resp 16 08/01/21 09:00 BP 104/51 08/01/21 09:00 Pulse Ox 98 08/01/21 09:00 Intake & Output 07/31/21 08/01/21 08/01/21 18:59 06:59 18:59 Intake Total 297.844 669.791 189 Output Total 1496 1400 310 Balance -1198.156 -730.209 -121 Weight 81.5 kg 78.6 kg Intake: IV 279 276 69 Lactated Ringers 1,000 ml 240 240 60 @ 20 mls/hr IV .Q24H [facility] Rx#:[id number] Pressure Bags 39 36 9 Intake, IV Titration 18.844 33.791 Amount DOPamine DRIP 800 mg In 18.844 Dextrose/Water 1 250ml. bag @ 3 MCG/KG/MIN 4.168 mls/hr IV .Q24H [facility] Rx#: [id number] Dexmedetomidine/0.9% NaCl 33.791 (Pmx) 400 mcg In Empty Bag 1 bag @ 0.2 MCG/KG/HR 4.075 mls/hr IV .Q24H PHIL Rx#:[id number] Oral 350 120 Tube Feeding 10 Output: Drainage [address] 320 270 180 Right Posterior 180 45 5 Urine 996 1085 125 Other: Voiding Method Indwelling Catheter Indwelling Catheter ABP, PAP, CO, CI - Last Documented Arterial Blood Pressure 119/35 Pulmonary Artery Pressure 35/28 Cardiac Output 5 Cardiac Index 2.7 - Exam In general patient is alert and oriented x 3 in no distress HEENT head normocephalic and atraumatic Neck is supple no JVD no goiter no lymphadenopathy no carotid bruit Chest examination is clear to auscultation no crackles no wheezing Cardiac exam reveals regular heart sounds S1 and S2 no gallops no murmurs Abdomen is soft nontender no organomegaly with normal bowel sounds Extremity exam reveals no edema no cyanosis or clubbing Neurological examination reveals no gross focal deficits - Labs CBC & Chem 7: 07/31/21 04:22 07/31/21 04:22 Labs: Abnormal Lab Results - Last 24 Hours (Table) 07/31/21 07/31/21 07/31/21 Range/Units 04:22 12:23 16:32 POC Glucose (mg/dL) 151 H 113 H (75-99) mg/dL Prealbumin 8.4 L (18.0-42.0) mg/dL 07/31/21 08/01/21 Range/Units 20:17 06:40 POC Glucose (mg/dL) 139 H 121 H (75-99) mg/dL Prealbumin (18.0-42.0) mg/dL Assessment and Plan Assessment: 1. Status post mitral valve replacement, tricuspid valve repair and single-vess el bypass grafting. Postop day 4 2. Right-sided pleural effusion 3. Coagulopathy. Resolved 4. History of congestive heart failure 5. History of valvular heart disease with previous mitral valve repair with a mitral clip at [facility] 6. History of coronary artery disease 7. History of hyperlipidemia 8. History of renal insufficiency 9. Previous history of atrial fibrillation Thank you for this consultation we will continue to follow patient closely throughout stay Patient remains in the intensive care unit Patient currently on IV Bumex per surgical services Repeat labs ordered Patient to be transitioned off IV insulin to sliding scale coverage. A1c 5.8
[2021-08-01 10:06] LABS: Platelet Count 78 k/uL (150-450)
[2021-08-01 10:16] LABS: Albumin 2.8 g/dL (3.5-5.0); Calcium 7.9 mg/dL (8.4-10.2); Potassium 3.8 mmol/L (3.5-5.1); Total Bilirubin 1.5 mg/dL (0.2-1.3)
--- NOTE | 2021-08-01 10:30 | ECHOF ---
Referral Reason:re: postoperative hypotension MEASUREMENTS -------- HEIGHT: 170.2 cm WEIGHT: 78.5 kg BP: 119/42 RVIDd: 4.1 cm (< 3.3) IVSd: 1.5 cm (0.6 - 1.1) LVIDd: 4.5 cm (3.9 - 5.3) LVPWd: 1.4 cm (0.6 - 1.1) IVSs: 2.1 cm LVIDs: 3.2 cm LVPWs: 1.9 cm LA Diam: 4.1 cm (2.7 - 3.8) Ao Diam: 3.6 cm (2.0 - 3.7) AV Cusp: 1.9 cm (1.5 - 2.6) MV E Bill: 1.93 m/s MV DecT: 243 ms MV A Bill: 1.30 m/s MV E/A Ratio: 1.48 AV maxP.13 mmHg AV meanP.19 mmHg RAP: 5.00 mmHg RVSP: 55.71 mmHg FINDINGS -------- This was a technically adequate study. The left ventricular size is normal. There is moderate concentric left ventricular hypertrophy. O verall left ventricular systolic function is low-normal with, an EF between 50 - 55 %. There is sep dana flattening in diastole and systole which is consistent with right ventricular pressure and volume overload. The right ventricle is severely enlarged. The left atrium is mildly dilated. The right atrium is normal in size. Trace to mild aortic regurgitation. Normally functioning bioprosthetic mitral valve. MV replaced Moderate to severe tricuspid regurgitation present. There is moderate to severe pulmonary hypertens ion. The right ventricular systolic pressure, as measured by Doppler, is 55.71mmHg. Trace/mild (physiologic) pulmonic regurgitation. The aortic root size is normal. IVC Not well visulized. There is a small pericardial effusion located near the left ventricle. CONCLUSIONS -------- 1. The left ventricular size is normal. 2. There is moderate concentric left ventricular hypertrophy. 3. Overall left ventricular systolic function is low-normal with, an EF between 50 - 55 %. 4. There is septal flattening in diastole and systole which is consistent with right ventricular pres sure and volume overload. 5. The right ventricle is severely enlarged. 6. The left atrium is mildly dilated. 7. Trace to mild aortic regurgitation. 8. Normally functioning bioprosthetic mitral valve. 9. MV replaced 10. Moderate to severe tricuspid regurgitation present. 11. There is moderate to severe pulmonary hypertension. 12. The right ventricular systolic pressure, as measured by Doppler, is 55.71mmHg. 13. Trace/mild (physiologic) pulmonic regurgitation. 14. There is a small pericardial effusion located near the left ventricle. TRADE EMBALMER: Anna Dennis RDCS
[2021-08-01] MEDS: bisacodyL 10 MG SUPP RECTAL PRN (10:56)
--- NOTE | 2021-08-01 10:56 | P.PN ---
Subjective Progress Note Date: 08/01/21 Principal diagnosis: Status post mitral valve replacement, tricuspid valve repair, and single-vessel bypass surgery. Pulmonary consult dated 07/28/2021. 81-year-old male, that is seen in room 251, postop day #0, status post mitral valve replacement, tricuspid valve repair, and single-vessel bypass grafting, SVG to OM. The patient is seen in the intensive care unit. The patient is on the ventilator, with vent settings of volume assist control, rate of 14, tidal volume 500, FiO2 100%, and PEEP of 5. Arterial blood gases are currently pending. Blood gases in the operating room show pO2 of 97, pCO2 41, and pH is 7.37. His most recent cardiac output was 4.9 with index of 2.6. The patient was on norepinephrine at 5 g a minute and nitroglycerin at 5 mcg/m. The patien t received 2 units of platelets, 2 units of fresh frozen plasma, and 2 500 bags of albumin. Estimated blood loss was 3000 mL. Additional labs, and x-ray is currently pending. The patient has a history of chronic heart failure, and renal insufficiency, among other things. Progress note dated 07/29/2021. This is a 81-year-old male, seen in room 251. He's postop day #1, status post mitral valve replacement, tricuspid valve repair, and single-vessel bypass grafting, SVG to obtuse marginal. The patient was extubated yesterday after about 7 to 7.5 hours. He's currently on 8 L high flow nasal O2. He is getting lactated Ringer's at 50 mL an hour, norepinephrine at 6.4 mcg/m, dopamine at 3 m cg/kg/m, and insulin at 1 unit an hour. White count 9.5, hemoglobin 7.5, hematocrit 23.9, and platelet count 80,000. The patient's PTT was 41.8. Sodium 144, potassium 4.2, chlorides 113, CO2 22, anion gap 9, BUN 37, creatinine 1.46. Albumin is 3.2. Chest x-ray shows some atelectasis at the left lung base, and loculated pleural effusion on the right side. Postsurgical changes are also noted. Progress note dated 07/30/2021. 81-year-old male, again seen in room 251. The patient is postop day #2, status post mitral valve replacement, tricuspid valve repair, and single-vessel bypass grafting, SVG to obtuse marginal. The patient is currently on AIRVO at 60 L/m with an FiO2 of 80%. The right-sided effusion, appears worse on today's chest x-ray. The patient's on lactated Ringer's at 50 mL an hour, dopamine at 3 mcg/kg/m, norepinephrine at 5 mcg/m, and insulin drip at 1.5 units an hour. I did speak to Dr. Collado, about what to do next for the right sided pleural effusion. He was can give the patient some vitamin K and fresh frozen plasma, and do a chest tube placement for a pigtail catheter placement. I did offer to do thoracentesis if his coagulopathy is reversed. Final decision was not made. White count 11.5, hemoglobin 6.6, hematocrit 21.1, and platelet count 80,000. PTT is 66, INR is 6.5. Sodium 137, potassium 4.1, chlorides 108, CO2 20, BUN 40, creatinine 2.01. Albumin 3.1. Chest x-ray shows cardiomegaly, postoperative changes, and a worsening right-sided effusion. Progress note dated 07/31/2021. 81-year-old male, again seen in room 251. The patient is postoperative day #3, status post mitral valve replacement, tricuspid valve appear, and single-vessel bypass grafting, SVG to OM. The patient is currently on AIRVO, at 60 L/m with an FiO2 of 60%. Yesterday, Dr. Collado placed a right-sided pigtail catheter, because of chronic right-sided pleural effusion. The patient is currently getting Bumex, and Seroquel. The patient may also be placed on dexmedetomidine. Lactated Ringer's is running at 20 mL an hour. Dopamine has been weaned off. Labs include a white count 8.3, hemoglobin 7.6, hematocrit 23.2, and platelet count of 63,000. Sodium 136, potassium 4.4, chlorides 107, CO2 20, BUN 49, and creatinine 2.17. Anion gap normal. Albumin is 3. Chest x-ray shows cardiomegaly, with increased interstitial densities bilaterally. There is soni becca a component of fluid overload/increased pulmonary vascular congestion. A right-sided pigtail catheter is noted. There is a moderate right-sided pleural effusion. A left chest tube is in place. Progress note dated 08/01/2021. 81-year-old male, again seen in room 251. He's postop day #4, status post mitral valve replacement, tricuspid valve repair, and single-vessel bypass grafting, SVG to OM. The patient is currently on AIRVO, with settings at 55 L/m and an FiO2 of 65%. The patient did have a right-sided pleural effusion, and a pigtail catheter was placed by the cardiothoracic surgeon. Currently, the patient's getting lactated Ringer's at 20 mL an hour, and dopamine at 2 mcg/kg/ m. The echocardiogram done today shows severe pulmonary hypertension, and flattening of the intraventricular septum. White count 6.8, hemoglobin 7.5, hematocrit 23.5, and platelet count 78,000. Sodium 140, potassium 3.8, chlorides 108, CO2 26, BUN 62, creatinine 2.32. Chest x-ray shows a small r ight-sided pleural effusion, left-sided chest tube, and some mild fluid overload/pulmonary edema. Objective - Vital Signs Vital signs: Vital Signs Temp 98.2 F 08/01/21 08:00 Pulse 80 08/01/21 10:30 Resp 20 08/01/21 10:00 BP 108/50 08/01/21 10:30 Pulse Ox 92 L 08/01/21 10:30 Intake & Output 07/31/21 08/01/21 08/01/21 18:59 06:59 18:59 Intake Total 297.844 669.791 312 Output Total 1496 1400 345 Balance -1198.156 -730.209 -33 Weight 81.5 kg 78.6 kg Intake: IV 279 276 92 Lactated Ringers 1,000 ml 240 240 80 @ 20 mls/hr IV .Q24H [facility] Rx#:[id number] Pressure Bags 39 36 12 Intake, IV Titration 18.844 33.791 Amount DOPamine DRIP 800 mg In 18.844 Dextrose/Water 1 250ml. bag @ 3 MCG/KG/MIN 4.168 mls/hr IV .Q24H [facility] Rx#: [id number] Dexmedetomidine/0.9% NaCl 33.791 (Pmx) 400 mcg In Empty Bag 1 bag @ 0.2 MCG/KG/HR 4.075 mls/hr IV .Q24H [facility] Rx#:[id number] Oral 350 220 Tube Feeding 10 Output: Drainage [address] 320 270 180 Right Posterior 180 45 5 Urine 996 1085 160 Other: Voiding Method Indwelling Catheter Indwelling Catheter ABP, PAP, CO, CI - Last Documented Arterial Blood Pressure 119/35 Pulmonary Artery Pressure 35/28 Cardiac Output 5 Cardiac Index 2.7 - Exam No acute distress, sitting up in the chair, currently on AIRVO. The patient is very lethargic and sleepy. HEENT examination is grossly unremarkable. Neck supple. Full range of motion. No adenopathy thyromegaly or neck vein distention. Cardiovascular examination reveals regular rhythm rate. S1-S2 normal. No S3 or S4. No discernible murmur noted. Heart rate 80 bpm Lungs reveal mostly clear breath sounds. Breath sounds are equal bilaterally. Mild scattered rhonchi are noted. No wheezes or crackles. Saturations are 92%. A left-sided chest tube was noted. A right-sided pigtail catheter is noted. Abdomen soft, without bowel sounds. Extremities are intact. No cyanosis clubbing or edema. Skin is without rash or lesion. Neurologic examination is brief but nonfocal. - Labs CBC & Chem 7: 08/01/21 09:47 08/01/21 09:47 Labs: Abnormal Lab Results - Last 24 Hours (Table) 07/31/21 07/31/21 07/31/21 Range/Units 04:22 12:23 16:32 RBC (4.30-5.90) m/uL Hgb (13.0-17.5) gm/dL Hct (39.0-53.0) % RDW (11.5-15.5) % Plt Count (150-450) k/uL Lymphocytes # (1.0-4.8) k/uL Chloride (98-107) mmol/L BUN (9-20) mg/dL Creatinine (0.66-1.25) mg/dL Glucose (74-99) mg/dL POC Glucose (mg/dL) 151 H 113 H (75-99) mg/dL Calcium (8.4-10.2) mg/dL Total Bilirubin (0.2-1.3) mg/dL AST (17-59) U/L Total Protein (6.3-8.2) g/dL Albumin (3.5-5.0) g/dL Prealbumin 8.4 L (18.0-42.0) mg/dL 07/31/21 08/01/21 08/01/21 Range/Units 20:17 06:40 09:47 RBC 2.44 L (4.30-5.90) m/uL Hgb 7.5 L (13.0-17.5) gm/dL Hct 23.5 L (39.0-53.0) % RDW 15.7 H (11.5-15.5) % Plt Count 78 L (150-450) k/uL Lymphocytes # 0.4 L (1.0-4.8) k/uL Chloride (98-107) mmol/L BUN (9-20) mg/dL Creatinine (0.66-1.25) mg/dL Glucose (74-99) mg/dL POC Glucose (mg/dL) 139 H 121 H (75-99) mg/dL Calcium (8.4-10.2) mg/dL Total Bilirubin (0.2-1.3) mg/dL AST (17-59) U/L Total Protein (6.3-8.2) g/dL Albumin (3.5-5.0) g/dL Prealbumin (18.0-42.0) mg/dL 08/01/21 Range/Units 09:47 RBC (4.30-5.90) m/uL Hgb (13.0-17.5) gm/dL Hct (39.0-53.0) % RDW (11.5-15.5) % Plt Count (150-450) k/uL Lymphocytes # (1.0-4.8) k/uL Chloride 108 H (98-107) mmol/L BUN 62 H (9-20) mg/dL Creatinine 2.32 H (0.66-1.25) mg/dL Glucose 146 H (74-99) mg/dL POC Glucose (mg/dL) (75-99) mg/dL Calcium 7.9 L (8.4-10.2) mg/dL Total Bilirubin 1.5 H (0.2-1.3) mg/dL AST 71 H (17-59) U/L Total Protein 5.0 L (6.3-8.2) g/dL Albumin 2.8 L (3.5-5.0) g/dL Prealbumin (18.0-42.0) mg/dL Assessment and Plan Assessment: Postop day #4, status post mitral valve replacement, tricuspid valve repair, and single-vessel bypass grafting, saphenous vein graft to OM. Routine postoperative ventilator management, with successful extubation on 07/28/2021. Postop day #1, status post right-sided pigtail catheter placement for right- sided pleural effusion. Chronic, and worsening, right-sided pleural effusion. History of congestive heart failure. History of valvular heart disease, with previous mitral valve repair, with a MitraClip. Coronary artery disease. History of hyperlipidemia. History of renal insufficiency. Multiple medical problems and comorbidities. Plan: Plan dated 07/28/2021. The patient just arrived back to the intensive care unit. We'll await the chest x-ray in the blood gases. Additional recommendations and suggestions are forthcoming. The patient is currently on updrafts every 4 [id number]. We will continue to follow the patient, and attempt to get the patient extubated as soon as possible. In addition, post extubation, we will continue to work with the patient, to maintain normal lung function, and prevent atelectasis, lobar collapse, pleural effusion, or pneumonia. Plan dated 07/29/2021. The patient remains on norepinephrine at 6.4 mcg/m, dopamine at 3 mcg/kg/m, insulin at 1 unit an hour, and lactated Ringer's at 50 mL an hour. The patient is also on 8 L high flow nasal O2. Chest x-ray continues to show what appears to be a loculated effusion on the right. This is not acute. The patient did receive 2 units of fresh frozen plasma, 2 units of platelets, 1 unit of blood, and albumin. The patient was extubated about 7 or so hours post leaving the operating room. The patient remains in the intensive care unit. We encourage deep breathing, coughing, and clearing her secretions. We also recommend hourly use of the incentive spirometer. Plan dated 07/30/2021. The patient remains on dopamine, norepinephrine, and insulin. No decision has been made yet about the right-sided pleural effusion. The patient was going to give some vitamin K, fresh frozen plasma, and at least one unit of blood. Dr. Collado will decide about a chest tube, versus pigtail catheter, versus bedside thoracentesis. Additional recommendations and suggestions are forthcoming. We'll continue to follow. Prognosis is guarded. The patient is again recommended to use the incentive spirometer every hour while awake, and continue with deep breathing, coughing, and clearing of secretions. Plan dated 07/31/2021. The patient still has a very long way to go. The patient remains on AIRVO at 60 L/m with an FiO2 of 60%. The patient is getting some Bumex a day, and also some Seroquel for some mental status changes. In addition, a right-sided pigtail catheter was placed yesterday. The patient's dopamine has been weaned down. Additional recommendations and suggestions are forthcoming. Labs, x-rays, and medications are all reviewed. Prognosis is guarded. We will continue to follow the patient and make recommendations where appropriate. Plan dated 08/01/2021. The patient is currently on AIRVO, at 55 L/m with an FiO2 of 65%. Right-sided pleural effusion is relatively small. Right pigtail catheter is noted. Drainage from the pigtail catheter is minimal. The patient remains on dopamine at 2 mcg/kg/m. Echocardiogram showed pulmonary hypertension, and flattening of the intraventricular septum. Labs, x-rays, and medications are reviewed. Today, the patient's lethargic and sleepy. The patient has been taken off of dexmedetomidine. Prognosis is guarded. We will continue to follow and make recommendations where appropriate. Time with Patient: Greater than 30
[2021-08-01] MEDS: ACETAMINOPHEN TAB 325 MG TAB PO PRN ×2 (10:59→23:59)
[2021-08-01] MEDS ORDERED: Potassium Replacement Protocol 1 EACH MISC MISCELLANE PRN (11:22)
[2021-08-01 11:26] LABS: Glucose,Whole Blood 184 mg/dL (75-99)
[2021-08-01] MEDS ORDERED: POTASSIUM BICARBONATE/CIT AC 20 MEQ TABLET.EFF NG-TUBE SCH (12:00)
[2021-08-01 12:28] LABS: INR 1.1 (<1.2); Prothrombin Time 11.5 sec (9.0-12.0)
[2021-08-01 16:24] LABS: Glucose,Whole Blood 189 mg/dL (75-99)
[2021-08-01 17:25] LABS: Glucose,Whole Blood 181 mg/dL (75-99)
[2021-08-01 20:52] LABS: Glucose,Whole Blood 106 mg/dL (75-99)
[2021-08-01] MEDS: ATORVASTATIN 40 MG TAB PO SCH (21:36)
[2021-08-01] MEDS: CALCIUM ACETATE 667 MG TAB PO SCH (21:36)
[2021-08-01] MEDS: SENNOSIDES-DOCUSATE SODIUM 1 EACH TAB PO SCH (21:36)
[2021-08-01] MEDS: DEXTROSE/WATER 1 250ML.BAG with DOPamine DRIP 800 MG IV SCH (21:50)
--- NOTE | 2021-08-02 06:13 | XR ---
EXAMINATION TYPE: XR chest 1V portable DATE OF EXAM: 08/02/2021 CLINICAL HISTORY: Postopen cardiac surgery. TECHNIQUE: Single AP portable semiupright view of the chest is obtained. COMPARISON: Chest x-ray from one day earlier And older studies. FINDINGS: Stable left-sided chest tube. Stable right internal jugular cordis sheath. Persistent late ral right basilar pleural pigtail drainage catheter. Persistent moderate size right pleural fluid collection not completely layering dependently. Stable s mall to tiny left pleural effusion. Persistent increased opacities bilaterally consistent with edema and/or infiltrates. Overlying sternal wires along with atrial septal closure device and cardiac surgi berenice clips are present. Persistent cardiomegaly with dual-lead pacemaker. Vertical density projecting in their lower sternal wire of uncertain etiology possible retained catheter fragment or foreign body has been present since recent surgery. IMPRESSION: Cardiomegaly with stable moderate sized right pleural fluid collection despite peripheral pleural percutaneous pigtail drainage catheter. Small to tiny left pleural effusion with left-sided chest tube. Persistent cardiomegaly with bilateral multifocal edema and/or infiltrates. No significan t change from one day earlier.
[2021-08-02 06:38] LABS: Glucose,Whole Blood 130 mg/dL (75-99)
[2021-08-02] MEDS: INSULIN ASPART (NovoLOG) 100 UNIT/ML VIAL SQ SCH ×4 (06:45→20:29)
[2021-08-02] MEDS: LACTATED RINGERS 1,000 ML IV SCH (06:47)
[2021-08-02] MEDS: PANTOPRAZOLE 40 MG TABLET PO SCH (06:47)
[2021-08-02] MEDS: IPRATROPIUM-ALBUTEROL 3 ML NEB INHALATION SCH ×4 (07:46→21:21)
[2021-08-02 07:59] LABS: HCT 25.3 % (39.0-53.0); Hypochromasia Slight; MCH 30.8 pg (25.0-35.0); MCHC 31.6 g/dL (31.0-37.0); MCV 97.7 fL (80.0-100.0); Macrocytosis Slight; RDW 15.7 % (11.5-15.5); WBC 9.8 k/uL (3.8-10.6)
[2021-08-02 08:05] LABS: Platelet Count 88 k/uL (150-450)
[2021-08-02 08:08] LABS: INR 1.1 (<1.2); Prothrombin Time 11.9 sec (9.0-12.0)
[2021-08-02 08:15] LABS: Calcium 8.1 mg/dL (8.4-10.2); Potassium 3.5 mmol/L (3.5-5.1); Total Bilirubin 1.7 mg/dL (0.2-1.3); Total Protein 5.4 g/dL (6.3-8.2)
[2021-08-02] MEDS: HEPARIN SODIUM,PORCINE/PF 5,000 UNIT/0.5 ML SYRINGE SQ SCH ×3 (08:30→23:48)
[2021-08-02] MEDS: ASCORBIC ACID 500 MG TAB PO SCH (08:31)
[2021-08-02] MEDS: FOLIC ACID 1 MG TAB PO SCH (08:31)
[2021-08-02] MEDS: ASPIRIN 81 MG PO SCH (08:31)
[2021-08-02] MEDS: guaiFENesin 600 MG TABLET.ER PO SCH ×2 (08:31→20:31)
[2021-08-02] MEDS: BUMETANIDE 0.25 MG/ML 10 ML VIAL IV SCH ×3 (08:31→23:30)
[2021-08-02] MEDS: POTASSIUM CHLORIDE ER 20 MEQ TAB.ER PO SCH ×2 (08:32→12:04)
[2021-08-02] MEDS: MUPIROCIN 2% OINT 22 GM TUBE NASAL SCH ×2 (08:32→20:37)
[2021-08-02] MEDS: allopurinoL 100 MG TAB PO SCH (08:33)
[2021-08-02] MEDS: FERROUS SULFATE 325 MG TAB PO SCH (08:37)
--- NOTE | 2021-08-02 08:59 | P.PN ---
Subjective Progress Note Date: 08/02/21 Principal diagnosis: Mitral valve regurgitation, tricuspid valve regurgitation, and coronary artery disease. Past medical history significant for coronary artery disease with prev ious myocardial infarction and PCI, hypertension, hyperlipidemia, chronic persistent atrial fibrillation on Coumadin for anticoagulation as an outpatient, status post cardioversion, sick sinus syndrome, status post [facility] [facility] permanent pacemaker placement in 2017, chronic systolic heart failure, atrial septal defect status post closure, history of MitraClip in 2019, chronic renal insufficiency, remote history of tobacco dependence, restrictive lung disease, obstructive sleep apnea, recurrent right pleural effusions with history of 4 previous thoracentesis, remote history of pneumonia, and a family history of premature coronary artery disease. Preoperative nasal screening positive for MSSA, treated. POD #5 mitral valve replacement with 31 mm Mosaic porcine valve prosthesis, tricuspid valve repair with 30 mm MC3 band, coronary artery bypass grafting 1 with reverse greater saphenous vein graft to the obtuse marginal coronary artery, endovascular vein harvest of the left greater saphenous vein, epi-aortic ultrasound, closure of the left atrial appendage, closure of atrial septal defect. Postoperative acute blood loss anemia and thrombocytopenia, expected given hemodilution and cardiopulmonary bypass pump. Coagulopathy, unexpected, last coumadin dose was on 07/22/21. The patient was seen in follow-up today 08/02/2021 at his bedside in the intensive care unit. Currently sitting up to bedside chair, is awake, alert, oriented 3 and is in no acute distress. Denies any complaints of pain at this time or shortness of breath. Oxygen saturations are 93% with AirVo support FiO2 44% and he is achieving 751,000 mL on his incentive spirometry with encouragement. Dopamine drip remains infusing at 2 mcg/kg/m. Right IJ Cordis remains in place with continuous CVP monitoring, current CVP pressure 12 mmHg. Cortes catheter remains in place for accurate I's and O's, urine output 740 mL in the last 8 hours. Left pleural chest tube and right pleural pigtail catheter remain in place low continuous wall suction -20 cm H2O. No air leak is present. No output from the right pleural pigtail catheter in the last 24 hours. Left pleural chest tube is draining thin serosanguineous drainage with 190 mL output the last 8 hours 650 mL output in the last 24 hours. Laboratory results and chest x-ray report reviewed. A bedside transthoracic 2-D echocardiogram was completed yesterday which demonstrated her overall left ventricular systolic function to be low normal with an ejection fraction between 50 and 55%, trace to mild aortic valve regurgitation, moderate to severe tricuspid valve regurgitation and a normal functioning bioprosthetic mitral valve, trace to mild pulmonic valve regurgitation and a small pericardial effusion located near the left ventricle. Objective - Vital Signs Vital signs: Vital Signs Temp 97.2 F L 08/02/21 08:00 Pulse 80 08/02/21 08:01 Resp 22 08/02/21 08:00 BP 129/46 08/02/21 08:00 Pulse Ox 93 L 08/02/21 08:00 Intake & Output 08/01/21 08/02/21 08/02/21 18:59 06:59 18:59 Intake Total 626 626 46 Output Total 870 2125 130 Balance -244 -1499 -84 Weight 77.3 kg Intake: IV 276 276 46 Lactated Ringers 1,000 ml 240 240 40 @ 20 mls/hr IV .Q24H [facility] Rx#:[id number] Pressure Bags 36 36 6 Oral 340 350 Tube Feeding 10 Output: Drainage [address] 390 290 Right Posterior 15 5 Urine 465 1390 130 Post Void Residual 440 Other: Voiding Method Indwelling Catheter Indwelling Catheter Indwelling Catheter ABP, PAP, CO, CI - Last Documented Arterial Blood Pressure 119/35 Pulmonary Artery Pressure 35/28 Cardiac Output 5 Cardiac Index 2.7 - Exam CONSTITUTIONAL: Sitting up to the bedside chair in the intensive care unit, appears comfortable, cooperative, and is in no apparent acute distress. HEENT: Neck is supple, no JVD, no lymphadenopathy. Right IJ Cordis in place and functioning. RESPIRATORY: Lungs sounds essentially clear throughout, diminished to his bilateral bases, right greater than left. Respirations are symmetrical and nonlabored. Currently on AirVo with 40% FiO2, oxygen saturations 93%. Able to achieve 750 -1000 mL on his incentive spirometry. Strong cough. CARDIOVASCULAR: Regular rhythm and rate. S1 and S2 present, negative for S3, gallop or murmur. Sternum is stable. Palpable peripheral pulses bilaterally. No calf pain or tenderness noted. Heart hugger in place with patient demonstrating appropriate use with encouragement. Knee-high SUMI hose and sequential compression devices in place to his bilateral lower extremities. Bedside telemetry showing V paced rhythm at 80 BPM. GASTROINTESTINAL: Abdomen soft, nontender, nondistended. Hypoactive bowel sounds present 4 quadrants. Tolerating diet. No guarding or rigidity. GENITOURINARY: Cortes present draining clear, yellow urine. Urine output 740 mL in the last 8 hours. INTEGUMENTARY: Skin is warm and dry with no evidence of clubbing or cyanosis. Midline sternal incision clean dry and well approximated, covered with dry intact dressing. Left lower extremity EVH site well approximated without redness or drainage. NEUROLOGIC: Cranial nerves II through XII intact. No focal deficits. MUSKULOSKELETAL: Able to move all extremities, strength equal bilaterally, generalized weakness. PSYCHIATRIC: Alert and oriented 3, appropriate affect. INVASIVE LINES AND TUBES: Right pleural pigtail catheter in place to low continuous wall suction -20 cm H2O. No air leak is present. No drainage in the last 24 hours. Left pleural chest tube in place to low continuous wall suction -20 cm H2O. No air leak is present. Draining thin serosanguineous drainage with 190 mL output in the last 8 hours and 650 mL output in the last 24 hours. Right IJ Cordis in place with continuous CVP monitoring, current CVP pressure of 12 mmHg. Ventricular epicardial pacemaker wires in place to back up to bedside pacemaker generator on a VVI of 80 BPM. - Allied health notes Allied health notes reviewed: nursing - Labs CBC & Chem 7: 08/02/21 07:31 08/01/21 09:47 Labs: Abnormal Lab Results - Last 24 Hours (Table) 08/01/21 08/01/21 08/01/21 Range/Units 09:47 09:47 11:24 RBC 2.44 L (4.30-5.90) m/uL Hgb 7.5 L (13.0-17.5) gm/dL Hct 23.5 L (39.0-53.0) % RDW 15.7 H (11.5-15.5) % Plt Count 78 L (150-450) k/uL Lymphocytes # 0.4 L (1.0-4.8) k/uL Chloride 108 H (98-107) mmol/L BUN 62 H (9-20) mg/dL Creatinine 2.32 H (0.66-1.25) mg/dL Glucose 146 H (74-99) mg/dL POC Glucose (mg/dL) 184 H (75-99) mg/dL Calcium 7.9 L (8.4-10.2) mg/dL Total Bilirubin 1.5 H (0.2-1.3) mg/dL AST 71 H (17-59) U/L Total Protein 5.0 L (6.3-8.2) g/dL Albumin 2.8 L (3.5-5.0) g/dL 08/01/21 08/01/21 08/01/21 Range/Units 16:22 17:24 20:50 RBC (4.30-5.90) m/uL Hgb (13.0-17.5) gm/dL Hct (39.0-53.0) % RDW (11.5-15.5) % Plt Count (150-450) k/uL Lymphocytes # (1.0-4.8) k/uL Chloride (98-107) mmol/L BUN (9-20) mg/dL Creatinine (0.66-1.25) mg/dL Glucose (74-99) mg/dL POC Glucose (mg/dL) 189 H 181 H 106 H (75-99) mg/dL Calcium (8.4-10.2) mg/dL Total Bilirubin (0.2-1.3) mg/dL AST (17-59) U/L Total Protein (6.3-8.2) g/dL Albumin (3.5-5.0) g/dL 08/02/21 08/02/21 Range/Units 06:36 07:31 RBC 2.60 L (4.30-5.90) m/uL Hgb 8.0 L (13.0-17.5) gm/dL Hct 25.3 L (39.0-53.0) % RDW 15.7 H (11.5-15.5) % Plt Count 88 L (150-450) k/uL Lymphocytes # (1.0-4.8) k/uL Chloride (98-107) mmol/L BUN (9-20) mg/dL Creatinine (0.66-1.25) mg/dL Glucose (74-99) mg/dL POC Glucose (mg/dL) 130 H (75-99) mg/dL Calcium (8.4-10.2) mg/dL Total Bilirubin (0.2-1.3) mg/dL AST (17-59) U/L Total Protein (6.3-8.2) g/dL Albumin (3.5-5.0) g/dL - Imaging and Cardiology Chest x-ray: report reviewed, image reviewed Assessment and Plan Assessment: 1. Mitral valve regurgitation, history of MitraClip in 2019, status post post mitral valve replacement 2. Tricuspid valve regurgitation, status post tricuspid valve repair 3. Coronary artery disease with previous myocardial infarction and PCI, status post 1 vessel CABG 4. History of hypertension, currently hypotensive on levo and dopamine 5. Chronic atrial fibrillation on Coumadin for anticoagulation status post cardioversion, status post closure of the left atrial appendage 6. Sick sinus syndrome status post [facility] [facility] permanent pacemaker placement in 2017 7. Chronic systolic heart failure 8. Atrial septal defect status post closure 9. Chronic renal insufficiency 10. Previous tobacco dependence 11. Severe restrictive lung disease, preoperative FEV1 47% of predicted 12. Recurrent right-sided pleural effusion, patient had right sided thoracen tesis twice in 2019 and twice in 2020 13. Obstructive sleep apnea 14. Remote history of pneumonia 15. Family history of premature coronary artery disease 16. Postoperative acute blood loss anemia and thrombocytopenia, expected 17. Coagulopathy, unexpected Plan: 1. Continue low-dose aspirin, statin. Will continue to hold Plavix and beta shila for now, we will restart when able. We will restart anticoagulation when able. 2. Discontinue dopamine drip. 3. Wean O2 as tolerated. Encourage incentive spirometry use 10 times every hour while awake. Bronchodilators per pulmonology. 4. Increase activity as tolerated. PT/OT/cardiac rehab following. 5. Will monitor daily labs and chest x-rays. Hit panel results were negative. 6. GI/DVT prophylaxis. Hold heparin subcu for platelet count less than 100,000. 7. Insulin management per primary care service. Patient is not diabetic, preoperative hemoglobin A1c 5.8% 8. Pain control current medication regimen. 9. May remove right IJ Cordis today at noon if tolerating being off the dopamine. 10. Continue left pleural chest tube and right chest pigtail catheter for another 24 hours. 11. Continue Cortes catheter for another 24 hours for strict accurate intake and output. Daily weights. 12. Discontinue Seroquel, the patient is awake, alert and oriented 3. 13. Encourage nutrition along with nutritional supplements. 14. Continue Bumex 2 mg IV every 8 hours. 15. More recommendations to follow based on patient's clinical course. Time with Patient: Greater than 30
--- NOTE | 2021-08-02 10:48 | P.PN ---
Subjective Progress Note Date: 08/02/21 This is a 81-year-old male patient who is currently postop day 2 from mitral valve replacement, tricuspid valve repair and single-vessel bypass grafting SVG to obtuse marginal. Patient has a past medical history of valvular heart disease with symptoms including shortness of breath with exertion and unable to perform many of his activities of daily living. Additional medical history includes coronary artery disease with previous cardiac infarction and PCI, hypertension, chronic atrial fibrillation on Coumadin for and configuration status post cardioversion, sick sinus syndrome with [facility] permanent pacemaker placement 2016, chronic systolic heart failure, atrial septal defect status post closure with previous mitral clip in 2019 at [facility], chronic renal insufficiency, obstructive sleep apnea, reoccurring right-sided pleural effusions with previous thoracentesis 4. At this time patient is currently resting comfortably in the intensive care unit. Patient was successfully extubated per protocol currently on IV dopamine and Levophed. INR elevated at 6.5. hemoglobin 6.6. 1 unit PRBCs, 2 units of FFP have been ordered per surgical services INR recheck ordered for noon. Chest x-ray the same showing cardiomegaly with moderate to large right and small sized bilateral pleural effusion collection and/or effusions with mild to moderate central vascular congestion and bibasilar opacities favoring atelectasis along with left-sided chest tubes are redemonstrated. Per surgical services possible plans for Pleurx catheter placement. This time patient is resting comfortably in chair patient remains on high flow oxygen. Blood sugars have remained stable per nursing staff will transition off insulin drip to sliding scale coverage. Cardiology and critical care services are following. On 07/31/2021 patient having intermittent episodes of confusion. INR improving to 2.3. Hemoglobin 7.6. Chest tubes remain in place. Cardiology and critical care services are following. Patient remains on high flow nasal cannula. Current vitals heart rate 80, respiratory rate 16, blood pressure 104/51 On 08/01/2021 patient is more alert currently resting comfortably in chair. Sitter is at bedside. Patient remains on high flow nasal cannula. Patient remains on IV Bumex. Cordis, chest tube and right pigtail catheter all remain in place. On 08/02/2021 patient was seen and examined in the ICU he is alert and oriented 3 in no apparent distress, sitting up in a chair, he is maintained on high flow oxygen, with FiO2 of 45, pulse ox is 93% temperature 97.2 pulse 80 respiration 22 blood pressure 129/46, he denies any fever or chills no headache or dizziness no chest pain no shortness of breath no cough no nausea no vomiting no abdominal pain no diarrhea and no urinary symptoms, chest tube is still in place, he is maintained on Bumex 2 mg IV every 8 hours Objective - Vital Signs Vital signs: Vital Signs Temp 97.2 F L 08/02/21 08:00 Pulse 62 08/02/21 10:00 Resp 17 08/02/21 10:00 BP 130/49 08/02/21 10:00 Pulse Ox 92 L 08/02/21 10:00 Intake & Output 08/01/21 08/02/21 08/02/21 18:59 06:59 18:59 Intake Total 626 626 92 Output Total 870 2125 220 Balance -244 -1499 -128 Weight 77.3 kg Intake: IV 276 276 92 Lactated Ringers 1,000 ml 240 240 80 @ 20 mls/hr IV .Q24H COUNT INCLUDES THE [facility] Rx#:[id number] Pressure Bags 36 36 12 Oral 340 350 Tube Feeding 10 Output: Drainage [address] 390 290 Right Posterior 15 5 Urine 465 1390 220 Post Void Residual 440 Other: Voiding Method Indwelling Catheter Indwelling Catheter Indwelling Catheter ABP, PAP, CO, CI - Last Documented Arterial Blood Pressure 119/35 Pulmonary Artery Pressure 35/28 Cardiac Output 5 Cardiac Index 2.7 - Exam In general patient is alert and oriented x 3 in no distress HEENT head normocephalic and atraumatic Neck is supple no JVD no goiter no lymphadenopathy no carotid bruit Chest examination reveals a scattered crackles in both lung sousa no wheezing Cardiac exam reveals regular heart sounds S1 and S2 no gallops no murmurs Abdomen is soft nontender no organomegaly with normal bowel sounds Extremity exam reveals no edema no cyanosis or clubbing Neurological examination reveals no gross focal deficits - Labs CBC & Chem 7: 08/02/21 07:31 08/02/21 07:31 Labs: Abnormal Lab Results - Last 24 Hours (Table) 08/01/21 08/01/21 08/01/21 Range/Units 11:24 16:22 17:24 RBC (4.30-5.90) m/uL Hgb (13.0-17.5) gm/dL Hct (39.0-53.0) % RDW (11.5-15.5) % Plt Count (150-450) k/uL BUN (9-20) mg/dL Creatinine (0.66-1.25) mg/dL Glucose (74-99) mg/dL POC Glucose (mg/dL) 184 H 189 H 181 H (75-99) mg/dL Calcium (8.4-10.2) mg/dL Total Bilirubin (0.2-1.3) mg/dL AST (17-59) U/L Total Protein (6.3-8.2) g/dL Albumin (3.5-5.0) g/dL 08/01/21 08/02/21 08/02/21 Range/Units 20:50 06:36 07:31 RBC 2.60 L (4.30-5.90) m/uL Hgb 8.0 L (13.0-17.5) gm/dL Hct 25.3 L (39.0-53.0) % RDW 15.7 H (11.5-15.5) % Plt Count 88 L (150-450) k/uL BUN (9-20) mg/dL Creatinine (0.66-1.25) mg/dL Glucose (74-99) mg/dL POC Glucose (mg/dL) 106 H 130 H (75-99) mg/dL Calcium (8.4-10.2) mg/dL Total Bilirubin (0.2-1.3) mg/dL AST (17-59) U/L Total Protein (6.3-8.2) g/dL Albumin (3.5-5.0) g/dL 08/02/21 Range/Units 07:31 RBC (4.30-5.90) m/uL Hgb (13.0-17.5) gm/dL Hct (39.0-53.0) % RDW (11.5-15.5) % Plt Count (150-450) k/uL BUN 64 H (9-20) mg/dL Creatinine 2.21 H (0.66-1.25) mg/dL Glucose 155 H (74-99) mg/dL POC Glucose (mg/dL) (75-99) mg/dL Calcium 8.1 L (8.4-10.2) mg/dL Total Bilirubin 1.7 H (0.2-1.3) mg/dL AST 65 H (17-59) U/L Total Protein 5.4 L (6.3-8.2) g/dL Albumin 3.0 L (3.5-5.0) g/dL Assessment and Plan Assessment: 1. Status post mitral valve replacement, tricuspid valve repair and single- vessel bypass grafting. Postop day 4 2. Right-sided pleural effusion 3. Coagulopathy. Resolved 4. History of congestive heart failure 5. History of valvular heart disease with previous mitral valve repair with a mitral clip at [facility] 6. History of coronary artery disease 7. History of hyperlipidemia 8. History of renal insufficiency 9. Previous history of atrial fibrillation Thank you for this consultation we will continue to follow patient closely throu out stay Patient remains in the intensive care unit Patient currently on IV Bumex per surgical services Repeat labs ordered Patient to be transitioned off IV insulin to sliding scale coverage. A1c 5.8
[2021-08-02 11:10] LABS: Glucose,Whole Blood 205 mg/dL (75-99)
--- NOTE | 2021-08-02 12:01 | P.PN ---
Subjective HISTORY OF PRESENTING ILLNESS Patient is pleasant 81-year-old male with history of coronary artery disease status post PCI of the RCA and circumflex, CKD, persistent atrial fibrillation, sick sinus syndrome status post permanent pacemaker, pulmonary hypertension, systolic heart failure, PFO status post PFO closure, mitral regurgitation and tricuspid regurgitation status post initial mitral clip. He follows in the office with Dr. Diego. He has been having issues with recurrent mainly left- sided heart failure with recurrent pleural effusions requiring thoracentesis. Initially he had a mitral clip performed which reduce the severe mitral in sufficiency from 4+ to 2-3+ regurgitation however has had recurrent admissions for heart failure. Therefore workup was performed which showed 3+ mitral regurgitation as well as severe tricuspid regurgitation and heart catheterization showed obstructive circumflex disease. Therefore patient underwent mitral valve replacement, tricuspid valve repair and CABG 1 with SVG to OM as well as closure of ASD from the mitral clip and closure of left atrial appendage on 07/28/2020. Patient seen and examined 07/29. He denies any chest pain or pressure. He states that overall he is feeling "okay". He was able to tolerate clear liquid this morning. He has pacemaker set at 80, current cardiac index in the 2.4-3.1 range. PA pressures around 31/35 with a CVP of 15. He is getting lactated Ringer's at 50 mL per hour. He is still on low dose of norepinephrine as well as dopamine. His platelets decreased to 80 and therefore heparin and Plavix have been held for today. Hemoglobin 7.5 today 07/30 Patient seen and examined. Patient's creatinine worsening and worsened respiratory status. Chest x-ray shows increased right pleural effusion. He has remained on norepinephrine as well as dopamine with borderline blood pressures. Cardiac output 5.3, cardiac index 2.9 this morning. Admits to mild appetite. He was given Bumex last night. 07/31 Patient seen and examined. Patient had confusion overnight and received Haldol however still confused this morning thinking he is in his garage. He denies any chest pain or pressure. He did have a right chest tube placed yesterday. Norepinephrine was discontinued yesterday and dopamine is down to 1. He has not been eating much. No bowel movement per nursing. He did receive packed red blood cell yesterday. Creatinine mildly increased at 2.1 today. 08/01 Patient seen and examined. Patient continues to have some altered mental status and requiring one-to-one sitter. Remains paced at 80 bpm. On low-dose of dopamine at 2. Denies any chest pain or pressure. States he has small appetite however has not been eating much of his food. He was placed on Bumex 2 mg every 8 hours. Blood work from this morning is pending. Blood pressures fairly borderline with maps mainly in the 70s. 08/02 Patient seen and examined. Patient slept most of yesterday however more alert today. Dopamine drip has been stopped. Continued on diuretics with a proximally 100 mL per hour. Left chest tube draining more than right with right not having much output. Has not had much appetite and eating approximately 1 meal a day. Echo was repeated yesterday which shows preserved EF approximately 50% with normally functioning mitral valve replacement and elevated RVSP as well as small pericardial effusion. PHYSICAL EXAMINATION Vital signs reviewed. CONSTITUTIONAL: No apparent distress, ill appearing HEENT: Head is normocephalic. Pupils are equal, round. Sclerae anicteric. Mucous membranes of the mouth are moist. No JVD. No carotid bruit. CHEST EXAMINATION: Lungs are clear to auscultation. Decreased breath sounds bilaterally HEART EXAMINATION: Regular rate and rhythm. S1, S2 heard. No murmurs, gallops or rub. ABDOMEN: Soft, nontender. Positive bowel sounds. EXTREMITIES: 2+ peripheral pulses, no lower extremity edema and no calf tenderness. NEUROLOGIC EXAMINATION: Patient is awake, alert and oriented x3. ASSESSMENT 1. S/p mitral valve replacement, tricuspid repair and one-vessel CABG SVG to OM 07/28, closure of ASD 2. History of mitral insufficiency status post initial mitral clip with continued preoperative mitral insufficiency 3. Coronary artery disease with prior history of PCI and most recent CABG 4. Permanent atrial fibrillation 5. Sick sinus syndrome status post permanent pacemaker 6. Pulmonary hypertension group 2 7. Postoperative anemia 8. Thrombocytopenia 9. Chronic systolic heart failure, mildly elevated CVP and PA pressures 10. Altered mental status 11. Acute kidney injury 12. Small pericardial effusion PLAN Continue with current regimen. Continue with diuretics however monitor CVP and clinical status closely given poor oral intake. Appears a little slowly be improving. Echo shows relatively preserved EF with normal functioning mitral valve. Incidental small pericardial effusion noted however no significant And not physiology. Continue to monitor clinically, further recommendations to follow. Objective - Vital Signs Vital signs: Vital Signs Temp 97.2 F L 08/02/21 08:00 Pulse 71 08/02/21 11:45 Resp 17 08/02/21 10:00 BP 130/49 08/02/21 10:00 Pulse Ox 92 L 08/02/21 10:00 Intake & Output 08/01/21 08/02/21 08/02/21 18:59 06:59 18:59 Intake Total 626 626 92 Output Total 870 2125 220 Balance -244 -1499 -128 Weight 77.3 kg Intake: IV 276 276 92 Lactated Ringers 1,000 ml 240 240 80 @ 20 mls/hr IV .Q24H [facility] Rx#:[id number] Pressure Bags 36 36 12 Oral 340 350 Tube Feeding 10 Output: Drainage [address] 390 290 Right Posterior 15 5 Urine 465 1390 220 Post Void Residual 440 Other: Voiding Method Indwelling Catheter Indwelling Catheter Indwelling Catheter ABP, PAP, CO, CI - Last Documented Arterial Blood Pressure 119/35 Pulmonary Artery Pressure 35/28 Cardiac Output 5 Cardiac Index 2.7 - Labs CBC & Chem 7: 08/02/21 07:31 08/02/21 07:31 Labs: Abnormal Lab Results - Last 24 Hours (Table) 08/01/21 08/01/21 08/01/21 Range/Units 16:22 17:24 20:50 RBC (4.30-5.90) m/uL Hgb (13.0-17.5) gm/dL Hct (39.0-53.0) % RDW (11.5-15.5) % Plt Count (150-450) k/uL BUN (9-20) mg/dL Creatinine (0.66-1.25) mg/dL Glucose (74-99) mg/dL POC Glucose (mg/dL) 189 H 181 H 106 H (75-99) mg/dL Calcium (8.4-10.2) mg/dL Total Bilirubin (0.2-1.3) mg/dL AST (17-59) U/L Total Protein (6.3-8.2) g/dL Albumin (3.5-5.0) g/dL 08/02/21 08/02/21 08/02/21 Range/Units 06:36 07:31 07:31 RBC 2.60 L (4.30-5.90) m/uL Hgb 8.0 L (13.0-17.5) gm/dL Hct 25.3 L (39.0-53.0) % RDW 15.7 H (11.5-15.5) % Plt Count 88 L (150-450) k/uL BUN 64 H (9-20) mg/dL Creatinine 2.21 H (0.66-1.25) mg/dL Glucose 155 H (74-99) mg/dL POC Glucose (mg/dL) 130 H (75-99) mg/dL Calcium 8.1 L (8.4-10.2) mg/dL Total Bilirubin 1.7 H (0.2-1.3) mg/dL AST 65 H (17-59) U/L Total Protein 5.4 L (6.3-8.2) g/dL Albumin 3.0 L (3.5-5.0) g/dL 08/02/21 Range/Units 11:08 RBC (4.30-5.90) m/uL Hgb (13.0-17.5) gm/dL Hct (39.0-53.0) % RDW (11.5-15.5) % Plt Count (150-450) k/uL BUN (9-20) mg/dL Creatinine (0.66-1.25) mg/dL Glucose (74-99) mg/dL POC Glucose (mg/dL) 205 H (75-99) mg/dL Calcium (8.4-10.2) mg/dL Total Bilirubin (0.2-1.3) mg/dL AST (17-59) U/L Total Protein (6.3-8.2) g/dL Albumin (3.5-5.0) g/dL
--- NOTE | 2021-08-02 13:56 | P.PN ---
Subjective Progress Note Date: 08/02/21 Principal diagnosis: Status post mitral valve replacement, tricuspid valve repair, and single-vessel bypass surgery. Pulmonary consult dated 07/28/2021. 81-year-old male, that is seen in room 251, postop day #0, status post mitral valve replacement, tricuspid valve repair, and single-vessel bypass grafting, SVG to OM. The patient is seen in the intensive care unit. The patient is on the ventilator, with vent settings of volume assist control, rate of 14, tidal volume 500, FiO2 100%, and PEEP of 5. Arterial blood gases are currently pending. Blood gases in the operating room show pO2 of 97, pCO2 41, and pH is 7.37. His most recent cardiac output was 4.9 with index of 2.6. The patient was on norepinephrine at 5 g a minute and nitroglycerin at 5 mcg/m. The patien t received 2 units of platelets, 2 units of fresh frozen plasma, and 2 500 bags of albumin. Estimated blood loss was 3000 mL. Additional labs, and x-ray is currently pending. The patient has a history of chronic heart failure, and renal insufficiency, among other things. Progress note dated 07/29/2021. This is a 81-year-old male, seen in room 251. He's postop day #1, status post mitral valve replacement, tricuspid valve repair, and single-vessel bypass grafting, SVG to obtuse marginal. The patient was extubated yesterday after about 7 to 7.5 hours. He's currently on 8 L high flow nasal O2. He is getting lactated Ringer's at 50 mL an hour, norepinephrine at 6.4 mcg/m, dopamine at 3 m cg/kg/m, and insulin at 1 unit an hour. White count 9.5, hemoglobin 7.5, hematocrit 23.9, and platelet count 80,000. The patient's PTT was 41.8. Sodium 144, potassium 4.2, chlorides 113, CO2 22, anion gap 9, BUN 37, creatinine 1.46. Albumin is 3.2. Chest x-ray shows some atelectasis at the left lung base, and loculated pleural effusion on the right side. Postsurgical changes are also noted. Progress note dated 07/30/2021. 81-year-old male, again seen in room 251. The patient is postop day #2, status post mitral valve replacement, tricuspid valve repair, and single-vessel bypass grafting, SVG to obtuse marginal. The patient is currently on AIRVO at 60 L/m with an FiO2 of 80%. The right-sided effusion, appears worse on today's chest x-ray. The patient's on lactated Ringer's at 50 mL an hour, dopamine at 3 mcg/kg/m, norepinephrine at 5 mcg/m, and insulin drip at 1.5 units an hour. I did speak to Dr. Collado, about what to do next for the right sided pleural effusion. He was can give the patient some vitamin K and fresh frozen plasma, and do a chest tube placement for a pigtail catheter placement. I did offer to do thoracentesis if his coagulopathy is reversed. Final decision was not made. White count 11.5, hemoglobin 6.6, hematocrit 21.1, and platelet count 80,000. PTT is 66, INR is 6.5. Sodium 137, potassium 4.1, chlorides 108, CO2 20, BUN 40, creatinine 2.01. Albumin 3.1. Chest x-ray shows cardiomegaly, postoperative changes, and a worsening right-sided effusion. Progress note dated 07/31/2021. 81-year-old male, again seen in room 251. The patient is postoperative day #3, status post mitral valve replacement, tricuspid valve appear, and single-vessel bypass grafting, SVG to OM. The patient is currently on AIRVO, at 60 L/m with an FiO2 of 60%. Yesterday, Dr. Collado placed a right-sided pigtail catheter, because of chronic right-sided pleural effusion. The patient is currently getting Bumex, and Seroquel. The patient may also be placed on dexmedetomidine. Lactated Ringer's is running at 20 mL an hour. Dopamine has been weaned off. Labs include a white count 8.3, hemoglobin 7.6, hematocrit 23.2, and platelet count of 63,000. Sodium 136, potassium 4.4, chlorides 107, CO2 20, BUN 49, and creatinine 2.17. Anion gap normal. Albumin is 3. Chest x-ray shows cardiomegaly, with increased interstitial densities bilaterally. There is soni becca a component of fluid overload/increased pulmonary vascular congestion. A right-sided pigtail catheter is noted. There is a moderate right-sided pleural effusion. A left chest tube is in place. Progress note dated 08/01/2021. 81-year-old male, again seen in room 251. He's postop day #4, status post mitral valve replacement, tricuspid valve repair, and single-vessel bypass grafting, SVG to OM. The patient is currently on AIRVO, with settings at 55 L/m and an FiO2 of 65%. The patient did have a right-sided pleural effusion, and a pigtail catheter was placed by the cardiothoracic surgeon. Currently, the patient's getting lactated Ringer's at 20 mL an hour, and dopamine at 2 mcg/kg/ m. The echocardiogram done today shows severe pulmonary hypertension, and flattening of the intraventricular septum. White count 6.8, hemoglobin 7.5, hematocrit 23.5, and platelet count 78,000. Sodium 140, potassium 3.8, chlorides 108, CO2 26, BUN 62, creatinine 2.32. Chest x-ray shows a small r ight-sided pleural effusion, left-sided chest tube, and some mild fluid overload/pulmonary edema. Progress note dated 08/02/2021. 81-year-old male seen again in room 251. He's postop day #5, status post mitral valve replacement, tricuspid valve repair, and single-vessel bypass grafting, SVG to OM. He remains on lactated Ringer's at 20 mL an hour, and AIRVO at 35 L/m with an FiO2. He sitting up at the bedside. He is much more awake and alert. He looks much more comfortable today. White count 9.8, hemoglobin 8, hematocrit 25.3, and platelet count 88,000. PT and INR are normal. Sodium, potassium, chloride, CO2, anion gap are all normal. BUN is 64 with a creatinine of 2.21. Albumin is 3.0. Chest x-ray shows cardiomegaly, with a moderate size right pleural fluid collection, and a pigtail catheter in place. There is a left-sided chest tube. Objective - Vital Signs Vital signs: Vital Signs Temp 97.7 F 08/02/21 12:00 Pulse 64 08/02/21 12:00 Resp 26 H 08/02/21 12:00 BP 131/48 08/02/21 12:00 Pulse Ox 97 08/02/21 12:00 Intake & Output 08/01/21 08/02/21 08/02/21 18:59 06:59 18:59 Intake Total 626 626 138 Output Total 870 2125 260 Balance -244 -1499 -122 Weight 77.3 kg Intake: IV 276 276 138 Lactated Ringers 1,000 ml 240 240 120 @ 20 mls/hr IV .Q24H [facility] Rx#:[id number] Pressure Bags 36 36 18 Oral 340 350 Tube Feeding 10 Output: Drainage [address] 390 290 Right Posterior 15 5 Urine 465 1390 260 Post Void Residual 440 Other: Voiding Method Indwelling Catheter Indwelling Catheter Indwelling Catheter ABP, PAP, CO, CI - Last Documented Arterial Blood Pressure 119/35 Pulmonary Artery Pressure 35/28 Cardiac Output 5 Cardiac Index 2.7 - Exam No acute distress, sitting up in the chair, currently on AIRVO. The patient is awake and alert. Saturations are 97%. HEENT examination is grossly unremarkable. Neck supple. Full range of motion. No adenopathy thyromegaly or neck vein dist ention. Cardiovascular examination reveals regular rhythm rate. S1-S2 normal. No S3 or S4. No discernible murmur noted. Heart rate 64 bpm Lungs reveal mostly clear breath sounds. Breath sounds are equal bilaterally. Mild scattered rhonchi are noted. No wheezes or crackles. Saturations are 97 %. A left-sided chest tube was noted. A right-sided pigtail catheter is noted. Abdomen soft, without bowel sounds. Extremities are intact. No cyanosis clubbing or edema. Skin is without rash or lesion. Neurologic examination is brief but nonfocal. - Labs CBC & Chem 7: 08/02/21 07:31 08/02/21 07:31 Labs: Abnormal Lab Results - Last 24 Hours (Table) 08/01/21 08/01/21 08/01/21 Range/Units 16:22 17:24 20:50 RBC (4.30-5.90) m/uL Hgb (13.0-17.5) gm/dL Hct (39.0-53.0) % RDW (11.5-15.5) % Plt Count (150-450) k/uL BUN (9-20) mg/dL Creatinine (0.66-1.25) mg/dL Glucose (74-99) mg/dL POC Glucose (mg/dL) 189 H 181 H 106 H (75-99) mg/dL Calcium (8.4-10.2) mg/dL Total Bilirubin (0.2-1.3) mg/dL AST (17-59) U/L Total Protein (6.3-8.2) g/dL Albumin (3.5-5.0) g/dL 08/02/21 08/02/21 08/02/21 Range/Units 06:36 07:31 07:31 RBC 2.60 L (4.30-5.90) m/uL Hgb 8.0 L (13.0-17.5) gm/dL Hct 25.3 L (39.0-53.0) % RDW 15.7 H (11.5-15.5) % Plt Count 88 L (150-450) k/uL BUN 64 H (9-20) mg/dL Creatinine 2.21 H (0.66-1.25) mg/dL Glucose 155 H (74-99) mg/dL POC Glucose (mg/dL) 130 H (75-99) mg/dL Calcium 8.1 L (8.4-10.2) mg/dL Total Bilirubin 1.7 H (0.2-1.3) mg/dL AST 65 H (17-59) U/L Total Protein 5.4 L (6.3-8.2) g/dL Albumin 3.0 L (3.5-5.0) g/dL 08/02/21 Range/Units 11:08 RBC (4.30-5.90) m/uL Hgb (13.0-17.5) gm/dL Hct (39.0-53.0) % RDW (11.5-15.5) % Plt Count (150-450) k/uL BUN (9-20) mg/dL Creatinine (0.66-1.25) mg/dL Glucose (74-99) mg/dL POC Glucose (mg/dL) 205 H (75-99) mg/dL Calcium (8.4-10.2) mg/dL Total Bilirubin (0.2-1.3) mg/dL AST (17-59) U/L Total Protein (6.3-8.2) g/dL Albumin (3.5-5.0) g/dL Assessment and Plan Assessment: Postop day #5, status post mitral valve replacement, tricuspid valve repair, and single-vessel bypass grafting, saphenous vein graft to OM. Routine postoperative ventilator management, with successful extubation on 07/28/2021. Postop day #2, status post right-sided pigtail catheter placement for right- sided pleural effusion. Chronic, and worsening, right-sided pleural effusion. History of congestive heart failure. History of valvular heart disease, with previous mitral valve repair, with a MitraClip. Coronary artery disease. History of hyperlipidemia. History of renal insufficiency. Multiple medical problems and comorbidities. Plan: Plan dated 07/28/2021. The patient just arrived back to the intensive care unit. We'll await the chest x-ray in the blood gases. Additional recommendations and suggestions are forthcoming. The patient is currently on updrafts every 4 [id number]. We will continue to follow the patient, and attempt to get the patient extubated as soon as possible. In addition, post extubation, we will continue to work with the patient, to maintain normal lung function, and prevent atelectasis, lobar collapse, pleural effusion, or pneumonia. Plan dated 07/29/2021. The patient remains on norepinephrine at 6.4 mcg/m, dopamine at 3 mcg/kg/m, insulin at 1 unit an hour, and lactated Ringer's at 50 mL an hour. The patient is also on 8 L high flow nasal O2. Chest x-ray continues to show what appears to be a loculated effusion on the right. This is not acute. The patient did receive 2 units of fresh frozen plasma, 2 units of platelets, 1 unit of blood, and albumin. The patient was extubated about 7 or so hours post leaving the operating room. The patient remains in the intensive care unit. We encourage deep breathing, coughing, and clearing her secretions. We also recommend hourly use of the incentive spirometer. Plan dated 07/30/2021. The patient remains on dopamine, norepinephrine, and insulin. No decision has been made yet about the right-sided pleural effusion. The patient was going to give some vitamin K, fresh frozen plasma, and at least one unit of blood. Dr. Collado will decide about a chest tube, versus pigtail catheter, versus bedside thoracentesis. Additional recommendations and suggestions are forthcoming. We'll continue to follow. Prognosis is guarded. The patient is again recommended to use the incentive spirometer every hour while awake, and continue with deep breathing, coughing, and clearing of secretions. Plan dated 07/31/2021. The patient still has a very long way to go. The patient remains on AIRVO at 60 L/m with an FiO2 of 60%. The patient is getting some Bumex a day, and also some Seroquel for some mental status changes. In addition, a right-sided pigtail catheter was placed yesterday. The patient's dopamine has been weaned down. Additional recommendations and suggestions are forthcoming. Labs, x-rays, and medications are all reviewed. Prognosis is guarded. We will continue to follow the patient and make recommendations where appropriate. Plan dated 08/01/2021. The patient is currently on AIRVO, at 55 L/m with an FiO2 of 65%. Right-sided pleural effusion is relatively small. Right pigtail catheter is noted. Drainage from the pigtail catheter is minimal. The patient remains on dopamine at 2 mcg/kg/m. Echocardiogram showed pulmonary hypertension, and flattening of the intraventricular septum. Labs, x-rays, and medications are reviewed. Today, the patient's lethargic and sleepy. The patient has been taken off of dexmedetomidine. Prognosis is guarded. We will continue to follow and make recommendations where appropriate. Plan dated 08/02/2021. The patient appears much more comfortable today. He does remain on AIRVO. The patient is more awake and alert. The patient does have a very wet congested cough. Labs, x-rays, and medications are all reviewed. Prognosis is guarded. We will continue to follow the patient and make recommendations where appropriate. We continue to recommend deep breathing, coughing, and clearing of secretions, as well as hourly use of the incentive spirometer. Time with Patient: Less than 30
[2021-08-02 16:24] LABS: Glucose,Whole Blood 90 mg/dL (75-99)
[2021-08-02 20:19] LABS: Glucose,Whole Blood 161 mg/dL (75-99)
[2021-08-02] MEDS: CALCIUM ACETATE 667 MG TAB PO SCH (20:31)
[2021-08-02] MEDS: ATORVASTATIN 40 MG TAB PO SCH (20:31)
[2021-08-02] MEDS: SENNOSIDES-DOCUSATE SODIUM 1 EACH TAB PO SCH (20:36)
[2021-08-03] MEDS: ACETAMINOPHEN TAB 325 MG TAB PO PRN (03:25)
--- NOTE | 2021-08-03 07:01 | XR ---
EXAMINATION TYPE: XR chest 1V portable DATE OF EXAM: 08/03/2021 CLINICAL HISTORY: Postopen cardiac surgery . TECHNIQUE: Single AP portable semiupright view of the chest is obtained. COMPARISON: Chest x-ray from one day earlier and older studies. FINDINGS: Stable left-sided chest tube. Interval removal of right internal jugular cordis sheath. Pe rsistent lateral right basilar pleural pigtail drainage catheter. Persistent slightly improved small to moderate size right pleural fluid collection not completely lay ering dependently. Stable small to tiny left pleural effusion. Persistent increased opacities bilater ally consistent with edema and/or infiltrates. Overlying sternal wires along with atrial septal closu re device and cardiac valvular surgical clips are redemonstrated. Persistent cardiomegaly with single lead pacemaker. Vertical density projecting in their lower sternal wire of uncertain etiology possib le retained catheter fragment or foreign body has been present since recent surgery. Overlying epicar dial pacer wires redemonstrated. IMPRESSION: 1. Cardiomegaly with [id number] size right nonsimple pleural fluid collection with peripheral pleural percutaneous pigtail drainage catheter is slightly improved from one day earlier. Stable Smal l to tiny left pleural effusion with left-sided chest tube. Bilateral multifocal edema and/or infiltr ates redemonstrated and stable. 2. Cannot exclude catheter fragment or foreign body projecting over the central lower heart. Correlat e clinically.
[2021-08-03] MEDS: IPRATROPIUM-ALBUTEROL 3 ML NEB INHALATION SCH ×4 (07:26→19:19)
[2021-08-03 07:52] LABS: Anisocytosis Slight; Basophils % (A) 0 %; Eosinophils # (A) 0.1 k/uL (0-0.7); Eosinophils % (A) 1 %; HCT 25.2 % (39.0-53.0); Hypochromasia Slight; Lymphocytes # (A) 0.7 k/uL (1.0-4.8); Lymphocytes % (A) 6 %; MCH 31.3 pg (25.0-35.0); MCHC 31.9 g/dL (31.0-37.0); MCV 98.1 fL (80.0-100.0); Macrocytosis Slight; Mean Platelet Volume 9.6; Monocytes % (A) 9 %; Neutrophils # (A) 9.1 k/uL (1.3-7.7); Neutrophils % (A) 82 %; Platelet Count 109 k/uL (150-450); RBC 2.57 m/uL (4.30-5.90); RDW 16.5 % (11.5-15.5); WBC 11.1 k/uL (3.8-10.6)
[2021-08-03 08:06] LABS: Albumin 2.9 g/dL (3.5-5.0); Calcium 7.9 mg/dL (8.4-10.2); Potassium 3.7 mmol/L (3.5-5.1); Total Bilirubin 1.6 mg/dL (0.2-1.3); Total Protein 5.4 g/dL (6.3-8.2)
[2021-08-03] MEDS: FOLIC ACID 1 MG TAB PO SCH (08:14)
[2021-08-03] MEDS: PANTOPRAZOLE 40 MG TABLET PO SCH (08:14)
[2021-08-03] MEDS: BUMETANIDE 0.25 MG/ML 10 ML VIAL IV SCH (08:15)
[2021-08-03] MEDS: ASCORBIC ACID 500 MG TAB PO SCH (08:15)
[2021-08-03] MEDS: ASPIRIN 81 MG PO SCH (08:15)
[2021-08-03] MEDS: allopurinoL 100 MG TAB PO SCH (08:15)
[2021-08-03] MEDS: guaiFENesin 600 MG TABLET.ER PO SCH ×2 (08:15→20:49)
[2021-08-03] MEDS: MUPIROCIN 2% OINT 22 GM TUBE NASAL SCH ×2 (08:16→20:49)
[2021-08-03] MEDS ORDERED: POTASSIUM CHLORIDE ER 20 MEQ TAB.ER PO STA (08:20)
[2021-08-03] MEDS: HEPARIN SODIUM,PORCINE/PF 5,000 UNIT/0.5 ML SYRINGE SQ SCH ×2 (08:22→16:31)
[2021-08-03] MEDS: FERROUS SULFATE 325 MG TAB PO SCH (08:22)
--- NOTE | 2021-08-03 09:15 | P.PN ---
Subjective HISTORY OF PRESENTING ILLNESS Patient is pleasant 81-year-old male with history of coronary artery disease status post PCI of the RCA and circumflex, CKD, persistent atrial fibrillation, sick sinus syndrome status post permanent pacemaker, pulmonary hypertension, systolic heart failure, PFO status post PFO closure, mitral regurgitation and tricuspid regurgitation status post initial mitral clip. He follows in the office with Dr. Diego. He has been having issues with recurrent mainly left- sided heart failure with recurrent pleural effusions requiring thoracentesis. Initially he had a mitral clip performed which reduce the severe mitral in sufficiency from 4+ to 2-3+ regurgitation however has had recurrent admissions for heart failure. Therefore workup was performed which showed 3+ mitral regurgitation as well as severe tricuspid regurgitation and heart catheterization showed obstructive circumflex disease. Therefore patient underwent mitral valve replacement, tricuspid valve repair and CABG 1 with SVG to OM as well as closure of ASD from the mitral clip and closure of left atrial appendage on 07/28/2020. Patient seen and examined 07/29. He denies any chest pain or pressure. He states that overall he is feeling "okay". He was able to tolerate clear liquid this morning. He has pacemaker set at 80, current cardiac index in the 2.4-3.1 range. PA pressures around 31/35 with a CVP of 15. He is getting lactated Ringer's at 50 mL per hour. He is still on low dose of norepinephrine as well as dopamine. His platelets decreased to 80 and therefore heparin and Plavix have been held for today. Hemoglobin 7.5 today 07/30 Patient seen and examined. Patient's creatinine worsening and worsened respiratory status. Chest x-ray shows increased right pleural effusion. He has remained on norepinephrine as well as dopamine with borderline blood pressures. Cardiac output 5.3, cardiac index 2.9 this morning. Admits to mild appetite. He was given Bumex last night. 07/31 Patient seen and examined. Patient had confusion overnight and received Haldol however still confused this morning thinking he is in his garage. He denies any chest pain or pressure. He did have a right chest tube placed yesterday. Norepinephrine was discontinued yesterday and dopamine is down to 1. He has not been eating much. No bowel movement per nursing. He did receive packed red blood cell yesterday. Creatinine mildly increased at 2.1 today. 08/01 Patient seen and examined. Patient continues to have some altered mental status and requiring one-to-one sitter. Remains paced at 80 bpm. On low-dose of dopamine at 2. Denies any chest pain or pressure. States he has small appetite however has not been eating much of his food. He was placed on Bumex 2 mg every 8 hours. Blood work from this morning is pending. Blood pressures fairly borderline with maps mainly in the 70s. 08/02 Patient seen and examined. Patient slept most of yesterday however more alert today. Dopamine drip has been stopped. Continued on diuretics with a proximally 100 mL per hour. Left chest tube draining more than right with right not having much output. Has not had much appetite and eating approximately 1 meal a day. Echo was repeated yesterday which shows preserved EF approximately 50% with normally functioning mitral valve replacement and elevated RVSP as well as small pericardial effusion. 08/03 Right IJ sheath pulled yesterday. Patient still with small to moderate right- sided pleural effusion. Not eating much however states he feels somewhat better than yesterday. No chest pain or pressure. PHYSICAL EXAMINATION Vital signs reviewed. CONSTITUTIONAL: No apparent distress, ill appearing HEENT: Head is normocephalic. Pupils are equal, round. Sclerae anicteric. Mucous membranes of the mouth are moist. No JVD. No carotid bruit. CHEST EXAMINATION: Lungs are clear to auscultation. Decreased breath sounds bilaterally HEART EXAMINATION: Regular rate and rhythm. S1, S2 heard. No murmurs, gallops or rub. ABDOMEN: Soft, nontender. Positive bowel sounds. EXTREMITIES: 2+ peripheral pulses, no lower extremity edema and no calf tender ness. NEUROLOGIC EXAMINATION: Patient is awake, alert and oriented x3. ASSESSMENT 1. S/p mitral valve replacement, tricuspid repair and one-vessel CABG SVG to OM 07/28, closure of ASD 2. History of mitral insufficiency status post initial mitral clip with continued preoperative mitral insufficiency 3. Coronary artery disease with prior history of PCI and most recent CABG 4. Permanent atrial fibrillation 5. Sick sinus syndrome status post permanent pacemaker 6. Pulmonary hypertension group 2 7. Postoperative anemia 8. Thrombocytopenia 9. Chronic systolic heart failure, mildly elevated CVP and PA pressures 10. Altered mental status 11. Acute kidney injury 12. Small pericardial effusion PLAN Patient with somewhat worsening kidney function and has not been eating much and we will hold Bumex for now. May consider increasing permanent pacemaker rate to help with cardiac output if patient decompensates however currently appears somewhat stable. Continue supportive care. Monitor kidney function, hemoglobin, platelets. If patient decompensates may consider repeat echo to delphine luate pericardial effusion however no tamponade physiology. Continue with current regimen. Continue with diuretics however monitor CVP and clinical status closely given poor oral intake. Appears a little slowly be improving. Echo shows relatively preserved EF with normal functioning mitral valve. Incidental small pericardial effusion noted however no significant And not physiology. Continue to monitor clinically, further recommendations to follow. Objective - Vital Signs Vital signs: Vital Signs Temp 97.2 F L 08/03/21 04:00 Pulse 60 08/03/21 07:37 Resp 19 08/03/21 07:00 BP 97/41 08/03/21 07:00 Pulse Ox 100 08/03/21 07:26 Intake & Output 08/02/21 08/03/21 08/03/21 18:59 06:59 18:59 Intake Total 184 480 Output Total 835 680 295 Balance -651 -200 -295 Weight 77.2 kg Intake: IV 184 Lactated Ringers 1,000 ml 160 @ 20 mls/hr IV .Q24H [facility] Rx#:[id number] Pressure Bags 24 Oral 480 Output: Chest Tube Drainage 245 L pleural 235 Right Posterior Chest 10 Drainage 300 Right Posterior 300 Urine 535 680 50 Other: Voiding Method Indwelling Catheter Indwelling Catheter ABP, PAP, CO, CI - Last Documented Arterial Blood Pressure 119/35 Pulmonary Artery Pressure 35/28 Cardiac Output 5 Cardiac Index 2.7 - Labs CBC & Chem 7: 08/03/21 07:40 08/03/21 07:40 Labs: Abnormal Lab Results - Last 24 Hours (Table) 08/02/21 08/02/21 08/03/21 Range/Units 11:08 20:17 07:40 WBC 11.1 H (3.8-10.6) k/uL RBC 2.57 L (4.30-5.90) m/uL Hgb 8.0 L (13.0-17.5) gm/dL Hct 25.2 L (39.0-53.0) % RDW 16.5 H (11.5-15.5) % Plt Count 109 L (150-450) k/uL Neutrophils # 9.1 H (1.3-7.7) k/uL Lymphocytes # 0.7 L (1.0-4.8) k/uL BUN (9-20) mg/dL Creatinine (0.66-1.25) mg/dL Glucose (74-99) mg/dL POC Glucose (mg/dL) 205 H 161 H (75-99) mg/dL Calcium (8.4-10.2) mg/dL Total Bilirubin (0.2-1.3) mg/dL Total Protein (6.3-8.2) g/dL Albumin (3.5-5.0) g/dL 08/03/21 Range/Units 07:40 WBC (3.8-10.6) k/uL RBC (4.30-5.90) m/uL Hgb (13.0-17.5) gm/dL Hct (39.0-53.0) % RDW (11.5-15.5) % Plt Count (150-450) k/uL Neutrophils # (1.3-7.7) k/uL Lymphocytes # (1.0-4.8) k/uL BUN 70 H (9-20) mg/dL Creatinine 2.35 H (0.66-1.25) mg/dL Glucose 150 H (74-99) mg/dL POC Glucose (mg/dL) (75-99) mg/dL Calcium 7.9 L (8.4-10.2) mg/dL Total Bilirubin 1.6 H (0.2-1.3) mg/dL Total Protein 5.4 L (6.3-8.2) g/dL Albumin 2.9 L (3.5-5.0) g/dL
[2021-08-03] MEDS ORDERED: ALTEPLASE 10 MG in SODIUM CHLORIDE 0.9% 50 ML IRRIGATION ONE (09:59)
[2021-08-03] MEDS ORDERED: DORNASE ALFA 5 MG in SODIUM CHLORIDE 0.9% 50 ML IRRIGATION ONE (09:59)
--- NOTE | 2021-08-03 10:07 | P.PN ---
Subjective Progress Note Date: 08/03/21 This is a 81-year-old male patient who is currently postop day 2 from mitral valve replacement, tricuspid valve repair and single-vessel bypass grafting SVG to obtuse marginal. Patient has a past medical history of valvular heart disease with symptoms including shortness of breath with exertion and unable to perform many of his activities of daily living. Additional medical history includes coronary artery disease with previous cardiac infarction and PCI, hypertension, chronic atrial fibrillation on Coumadin for and configuration status post cardioversion, sick sinus syndrome with [facility] permanent pacemaker placement 2016, chronic systolic heart failure, atrial septal defect status post closure with previous mitral clip in 2019 at [facility], chronic renal insufficiency, obstructive sleep apnea, reoccurring right-sided pleural effusions with previous thoracentesis 4. At this time patient is currently resting comfortably in the intensive care unit. Patient was successfully extubated per protocol currently on IV dopamine and Levophed. INR elevated at 6.5. hemoglobin 6.6. 1 unit PRBCs, 2 units of FFP have been ordered per surgical services INR recheck ordered for noon. Chest x-ray the same showing cardiomegaly with moderate to large right and small sized bilateral pleural effusion collection and/or effusions with mild to moderate central vascular congestion and bibasilar opacities favoring atelectasis along with left-sided chest tubes are redemonstrated. Per surgical services possible plans for Pleurx catheter placement. This time patient is resting comfortably in chair patient remains on high flow oxygen. Blood sugars have remained stable per nursing staff will transition off insulin drip to sliding scale coverage. Cardiology and critical care services are following. On 07/31/2021 patient having intermittent episodes of confusion. INR improving to 2.3. Hemoglobin 7.6. Chest tubes remain in place. Cardiology and critical care services are following. Patient remains on high flow nasal cannula. Current vitals heart rate 80, respiratory rate 16, blood pressure 104/51 On 08/01/2021 patient is more alert currently resting comfortably in chair. Sitter is at bedside. Patient remains on high flow nasal cannula. Patient remains on IV Bumex. Cordis, chest tube and right pigtail catheter all remain in place. On 08/02/2021 patient was seen and examined in the ICU he is alert and oriented 3 in no apparent distress, sitting up in a chair, he is maintained on high flow oxygen, with FiO2 of 45, pulse ox is 93% temperature 97.2 pulse 80 respiration 22 blood pressure 129/46, he denies any fever or chills no headache or dizziness no chest pain no shortness of breath no cough no nausea no vomiting no abdominal pain no diarrhea and no urinary symptoms, chest tube is still in place, he is maintained on Bumex 2 mg IV every 8 hours On 08/03/2022 2 patient remains in the intensive care unit. Patient is alert and oriented sitting comfortably in chair. Discussed case with surgical team Bumex has been DC'd. Creatinine 2.25 bun 70. Chest tube remains in place. Patient remains on high flow 60%. This time patient denies chest pain or shortness breath. Patient denies diarrhea. Patient denies any urinary burning or frequency Objective - Vital Signs Vital signs: Vital Signs Temp 97.2 F L 08/03/21 04:00 Pulse 60 08/03/21 07:37 Resp 19 08/03/21 07:00 BP 97/41 08/03/21 07:00 Pulse Ox 100 08/03/21 07:26 Intake & Output 08/02/21 08/03/21 08/03/21 18:59 06:59 18:59 Intake Total 184 480 Output Total 835 680 295 Balance -651 -200 -295 Weight 77.2 kg Intake: IV 184 Lactated Ringers 1,000 ml 160 @ 20 mls/hr IV .Q24H [facility] Rx#:[id number] Pressure Bags 24 Oral 480 Output: Chest Tube Drainage 245 L pleural 235 Right Posterior Chest 10 Drainage 300 Right Posterior 300 Urine 535 680 50 Other: Voiding Method Indwelling Catheter Indwelling Catheter ABP, PAP, CO, CI - Last Documented Arterial Blood Pressure 119/35 Pulmonary Artery Pressure 35/28 Cardiac Output 5 Cardiac Index 2.7 - Exam In general patient is alert and oriented x 3 in no distress HEENT head normocephalic and atraumatic Neck is supple no JVD no goiter no lymphadenopathy no carotid bruit Chest examination reveals a scattered crackles in both lung sousa no wheezing Cardiac exam reveals regular heart sounds S1 and S2 no gallops no murmurs Abdomen is soft nontender no organomegaly with normal bowel sounds Extremity exam reveals no edema no cyanosis or clubbing Neurological examination reveals no gross focal deficits - Labs CBC & Chem 7: 08/03/21 07:40 08/03/21 07:40 Labs: Abnormal Lab Results - Last 24 Hours (Table) 08/02/21 08/02/21 08/03/21 Range/Units 11:08 20:17 07:40 WBC 11.1 H (3.8-10.6) k/uL RBC 2.57 L (4.30-5.90) m/uL Hgb 8.0 L (13.0-17.5) gm/dL Hct 25.2 L (39.0-53.0) % RDW 16.5 H (11.5-15.5) % Plt Count 109 L (150-450) k/uL Neutrophils # 9.1 H (1.3-7.7) k/uL Lymphocytes # 0.7 L (1.0-4.8) k/uL BUN (9-20) mg/dL Creatinine (0.66-1.25) mg/dL Glucose (74-99) mg/dL POC Glucose (mg/dL) 205 H 161 H (75-99) mg/dL Calcium (8.4-10.2) mg/dL Total Bilirubin (0.2-1.3) mg/dL Total Protein (6.3-8.2) g/dL Albumin (3.5-5.0) g/dL 08/03/21 Range/Units 07:40 WBC (3.8-10.6) k/uL RBC (4.30-5.90) m/uL Hgb (13.0-17.5) gm/dL Hct (39.0-53.0) % RDW (11.5-15.5) % Plt Count (150-450) k/uL Neutrophils # (1.3-7.7) k/uL Lymphocytes # (1.0-4.8) k/uL BUN 70 H (9-20) mg/dL Creatinine 2.35 H (0.66-1.25) mg/dL Glucose 150 H (74-99) mg/dL POC Glucose (mg/dL) (75-99) mg/dL Calcium 7.9 L (8.4-10.2) mg/dL Total Bilirubin 1.6 H (0.2-1.3) mg/dL Total Protein 5.4 L (6.3-8.2) g/dL Albumin 2.9 L (3.5-5.0) g/dL Assessment and Plan Assessment: 1. Status post mitral valve replacement, tricuspid valve repair and single- vessel bypass grafting. Postop day 4 2. Right-sided pleural effusion 3. Coagulopathy. Resolved 4. History of congestive heart failure 5. History of valvular heart disease with previous mitral valve repair with a mitral clip at [facility] 6. History of coronary artery disease 7. History of hyperlipidemia 8. History of renal insufficiency 9. Previous history of atrial fibrillation Thank you for this consultation we will continue to follow patient closely throughout stay Patient remains in the intensive care unit Repeat labs ordered Patient to be transitioned off IV insulin to sliding scale coverage. A1c 5.8
--- NOTE | 2021-08-03 10:08 | P.PN ---
Subjective Progress Note Date: 08/03/21 Principal diagnosis: Mitral valve regurgitation, tricuspid valve regurgitation, and coronary artery disease. Past medical history significant for coronary artery disease with prev ious myocardial infarction and PCI, hypertension, hyperlipidemia, chronic persistent atrial fibrillation on Coumadin for anticoagulation as an outpatient, status post cardioversion, sick sinus syndrome, status post [facility] permanent pacemaker placement in 2017, chronic systolic heart failure, atrial septal defect status post closure, history of MitraClip in 2019, chronic renal insufficiency, remote history of tobacco dependence, restrictive lung disease, obstructive sleep apnea, recurrent right pleural effusions with history of 4 previous thoracentesis, remote history of pneumonia, and a family history of premature coronary artery disease. Preoperative nasal screening positive for MSSA, treated. POD #6 mitral valve replacement with 31 mm Mosaic porcine valve prosthesis, tricuspid valve repair with 30 mm MC3 band, coronary artery bypass grafting 1 with reverse greater saphenous vein graft to the obtuse marginal coronary artery, endovascular vein harvest of the left greater saphenous vein, epi-aortic ultrasound, closure of the left atrial appendage, closure of atrial septal defect. Postoperative acute blood loss anemia and thrombocytopenia, expected given hemodilution and cardiopulmonary bypass pump. Coagulopathy, unexpected, last coumadin dose was on 07/22/21. The patient was seen in follow-up today 08/03/2021 at his bedside in the intensive care unit. Currently the patient is sitting up to the bedside chair, is awake, alert, oriented 3 and is in no acute apparent distress. Denies any complaints of pain or shortness of breath at this time. Remains on AirVo support with oxygen saturations 98% and he is achieving 1500 mL on his incentive spirometry with encouragement. The patient reports that he did have a bowel movement 2 today and feels better. Left pleural chest tube remains in place to low continuous wall suction -20 cm H2O. No air leak is present. Draining thin serosanguineous drainage with 235 mL output in the last 8 hours and 700 mL output in the last 24 hours. Right pleural pigtail catheter remains in place to low continuous wall suction -20 cm H2O. No air leak is present. With no drainage output in the last 24 hours. Bedside telemetry showing a paced rhythm with heart rate at 60 BPM. Chest x-ray and laboratory results reviewed. Cortes catheter remains in place draining clear dark nino urine with sediment and 485 mL output in the last 8 hours. Objective - Vital Signs Vital signs: Vital Signs Temp 97.2 F L 08/03/21 04:00 Pulse 60 08/03/21 07:37 Resp 19 08/03/21 07:00 BP 97/41 08/03/21 07:00 Pulse Ox 100 08/03/21 07:26 Intake & Output 08/02/21 08/03/21 08/03/21 18:59 06:59 18:59 Intake Total 184 480 Output Total 835 680 295 Balance -651 -200 -295 Weight 77.2 kg Intake: IV 184 Lactated Ringers 1,000 ml 160 @ 20 mls/hr IV .Q24H [facility] Rx#:[id number] Pressure Bags 24 Oral 480 Output: Chest Tube Drainage 245 L pleural 235 Right Posterior Chest 10 Drainage 300 Right Posterior 300 Urine 535 680 50 Other: Voiding Method Indwelling Catheter Indwelling Catheter ABP, PAP, CO, CI - Last Documented Arterial Blood Pressure 119/35 Pulmonary Artery Pressure 35/28 Cardiac Output 5 Cardiac Index 2.7 - Exam CONSTITUTIONAL: Sitting up to the bedside chair in the intensive care unit, appears comfortable, cooperative, and is in no apparent acute distress. HEENT: Neck is supple, no JVD, no lymphadenopathy. RESPIRATORY: Lungs sounds essentially clear throughout, diminished to his bilateral bases, right greater than left. Respirations are symmetrical and nonlabored. Currently on AirVo with 49% FiO2, oxygen saturations 98%. Able to achieve 1500 mL on his incentive spirometry. Strong cough. CARDIOVASCULAR: Regular rhythm and rate. S1 and S2 present, negative for S3, gallop or murmur. Sternum is stable. Palpable peripheral pulses bilaterally. No calf pain or tenderness noted. Heart hugger in place with patient demonstrating appropriate use with encouragement. Knee-high SUMI hose and sequential compression devices in place to his bilateral lower extremities. Bedside telemetry showing paced rhythm at 60 BPM. GASTROINTESTINAL: Abdomen soft, nontender, nondistended. Hypoactive bowel sounds present 4 quadrants. Tolerating diet. No guarding or rigidity. Bowel movement 2 this a.m. GENITOURINARY: Cortes present draining dark nino urine. Urine output 485 mL in the last 8 hours. INTEGUMENTARY: Skin is warm and dry with no evidence of clubbing or cyanosis. Midline sternal incision clean dry and well approximated, covered with dry intact dressing. Left lower extremity EVH site well approximated without redness or drainage. NEUROLOGIC: Cranial nerves II through XII intact. No focal deficits. MUSKULOSKELETAL: Able to move all extremities, strength equal bilaterally, generalized weakness. PSYCHIATRIC: Alert and oriented 3, appropriate affect. INVASIVE LINES AND TUBES: Right pleural pigtail catheter in place to low continuous wall suction -20 cm H2O. No air leak is present. No drainage in the last 24 hours. Left pleural chest tube in place to low continuous wall suction -20 cm H2O. No air leak is present. Draining thin serosanguineous drainage with 235 mL output in the last 8 hours and 700 mL output in the last 24 hours. Ventricular epicardial pacemaker wires in place and are grounded. - Allied health notes Allied health notes reviewed: nursing - Labs CBC & Chem 7: 08/03/21 07:40 08/03/21 07:40 Labs: Abnormal Lab Results - Last 24 Hours (Table) 08/02/21 08/02/21 08/03/21 Range/Units 11:08 20:17 07:40 WBC 11.1 H (3.8-10.6) k/uL RBC 2.57 L (4.30-5.90) m/uL Hgb 8.0 L (13.0-17.5) gm/dL Hct 25.2 L (39.0-53.0) % RDW 16.5 H (11.5-15.5) % Plt Count 109 L (150-450) k/uL Neutrophils # 9.1 H (1.3-7.7) k/uL Lymphocytes # 0.7 L (1.0-4.8) k/uL BUN (9-20) mg/dL Creatinine (0.66-1.25) mg/dL Glucose (74-99) mg/dL POC Glucose (mg/dL) 205 H 161 H (75-99) mg/dL Calcium (8.4-10.2) mg/dL Total Bilirubin (0.2-1.3) mg/dL Total Protein (6.3-8.2) g/dL Albumin (3.5-5.0) g/dL 08/03/21 Range/Units 07:40 WBC (3.8-10.6) k/uL RBC (4.30-5.90) m/uL Hgb (13.0-17.5) gm/dL Hct (39.0-53.0) % RDW (11.5-15.5) % Plt Count (150-450) k/uL Neutrophils # (1.3-7.7) k/uL Lymphocytes # (1.0-4.8) k/uL BUN 70 H (9-20) mg/dL Creatinine 2.35 H (0.66-1.25) mg/dL Glucose 150 H (74-99) mg/dL POC Glucose (mg/dL) (75-99) mg/dL Calcium 7.9 L (8.4-10.2) mg/dL Total Bilirubin 1.6 H (0.2-1.3) mg/dL Total Protein 5.4 L (6.3-8.2) g/dL Albumin 2.9 L (3.5-5.0) g/dL - Imaging and Cardiology Chest x-ray: report reviewed, image reviewed Assessment and Plan Assessment: 1. Mitral valve regurgitation, history of MitraClip in 2019, status post post mitral valve replacement 2. Tricuspid valve regurgitation, status post tricuspid valve repair 3. Coronary artery disease with previous myocardial infarction and PCI, status post 1 vessel CABG 4. History of hypertension, currently hypotensive on levo and dopamine 5. Chronic atrial fibrillation on Coumadin for anticoagulation status post cardioversion, status post closure of the left atrial appendage 6. Sick sinus syndrome status post [facility] permanent pacemaker placement in 2016 7. Chronic systolic heart failure 8. Atrial septal defect status post closure 9. Chronic renal insufficiency 10. Previous tobacco dependence 11. Severe restrictive lung disease, preoperative FEV1 47% of predicted 12. Recurrent right-sided pleural effusion, patient had right sided thoracentesis twice in 2019 and twice in 2020 13. Obstructive sleep apnea 14. Remote history of pneumonia 15. Family history of premature coronary artery disease 16. Postoperative acute blood loss anemia and thrombocytopenia, expected 17. Coagulopathy, resolved Plan: 1. Continue low-dose aspirin, heparin subcu, and statin. Will continue to hold Plavix and beta shila for now, we will restart when able. We will restart anticoagulation when able. 2. Send urinalysis with reflex culture. 3. Wean O2 as tolerated. Encourage incentive spirometry use 10 times every hour while awake. Bronchodilators per pulmonology. 4. Increase activity as tolerated. PT/OT/cardiac rehab following. 5. Will monitor daily labs and chest x-rays. 6. GI/DVT prophylaxis. 7. Insulin management per primary care service. Patient is not diabetic, preoperative hemoglobin A1c 5.8% 8. Pain control current medication regimen. 9. Continue left pleural chest tube and right chest pigtail catheter for another 24 hours. We will instill alteplase/dornase to his right pleural pigtail catheter. Currently the right pleural pigtail catheter is plugged and if unable to flush the pigtail catheter after the alteplase dornase has been instilled we will ask interventional radiology to place a right oral pigtail catheter tomorrow. 10. Remove Cortes catheter, continue to record strict accurate intake and output. Daily weights. 11. Encourage nutrition along with nutritional supplements. 12. Bumex has been discontinued by cardiology. 13. We will remove his ventricular epicardial pacemaker wires tomorrow 08/04/2021 and once his pacemaker wires have been removed he will be started on Eliquis 2.5 mg by mouth twice a day. 14. More recommendations to follow based on patient's clinical course. Time with Patient: Greater than 30
[2021-08-03] MEDS: INSULIN ASPART (NovoLOG) 100 UNIT/ML VIAL SQ SCH ×4 (10:45→20:48)
--- NOTE | 2021-08-03 10:53 | P.PN ---
Subjective Progress Note Date: 08/03/21 Principal diagnosis: Status post mitral valve replacement, tricuspid valve repair, and single-vessel bypass surgery. Pulmonary consult dated 07/28/2021. 81-year-old male, that is seen in room 251, postop day #0, status post mitral valve replacement, tricuspid valve repair, and single-vessel bypass grafting, SVG to OM. The patient is seen in the intensive care unit. The patient is on the ventilator, with vent settings of volume assist control, rate of 14, tidal volume 500, FiO2 100%, and PEEP of 5. Arterial blood gases are currently pending. Blood gases in the operating room show pO2 of 97, pCO2 41, and pH is 7.37. His most recent cardiac output was 4.9 with index of 2.6. The patient was on norepinephrine at 5 g a minute and nitroglycerin at 5 mcg/m. The patien t received 2 units of platelets, 2 units of fresh frozen plasma, and 2 500 bags of albumin. Estimated blood loss was 3000 mL. Additional labs, and x-ray is currently pending. The patient has a history of chronic heart failure, and renal insufficiency, among other things. Progress note dated 07/29/2021. This is a 81-year-old male, seen in room 251. He's postop day #1, status post mitral valve replacement, tricuspid valve repair, and single-vessel bypass grafting, SVG to obtuse marginal. The patient was extubated yesterday after about 7 to 7.5 hours. He's currently on 8 L high flow nasal O2. He is getting lactated Ringer's at 50 mL an hour, norepinephrine at 6.4 mcg/m, dopamine at 3 m cg/kg/m, and insulin at 1 unit an hour. White count 9.5, hemoglobin 7.5, hematocrit 23.9, and platelet count 80,000. The patient's PTT was 41.8. Sodium 144, potassium 4.2, chlorides 113, CO2 22, anion gap 9, BUN 37, creatinine 1.46. Albumin is 3.2. Chest x-ray shows some atelectasis at the left lung base, and loculated pleural effusion on the right side. Postsurgical changes are also noted. Progress note dated 07/30/2021. 81-year-old male, again seen in room 251. The patient is postop day #2, status post mitral valve replacement, tricuspid valve repair, and single-vessel bypass grafting, SVG to obtuse marginal. The patient is currently on AIRVO at 60 L/m with an FiO2 of 80%. The right-sided effusion, appears worse on today's chest x-ray. The patient's on lactated Ringer's at 50 mL an hour, dopamine at 3 mcg/kg/m, norepinephrine at 5 mcg/m, and insulin drip at 1.5 units an hour. I did speak to Dr. Collado, about what to do next for the right sided pleural effusion. He was can give the patient some vitamin K and fresh frozen plasma, and do a chest tube placement for a pigtail catheter placement. I did offer to do thoracentesis if his coagulopathy is reversed. Final decision was not made. White count 11.5, hemoglobin 6.6, hematocrit 21.1, and platelet count 80,000. PTT is 66, INR is 6.5. Sodium 137, potassium 4.1, chlorides 108, CO2 20, BUN 40, creatinine 2.01. Albumin 3.1. Chest x-ray shows cardiomegaly, postoperative changes, and a worsening right-sided effusion. Progress note dated 07/31/2021. 81-year-old male, again seen in room 251. The patient is postoperative day #3, status post mitral valve replacement, tricuspid valve appear, and single-vessel bypass grafting, SVG to OM. The patient is currently on AIRVO, at 60 L/m with an FiO2 of 60%. Yesterday, Dr. Collado placed a right-sided pigtail catheter, because of chronic right-sided pleural effusion. The patient is currently getting Bumex, and Seroquel. The patient may also be placed on dexmedetomidine. Lactated Ringer's is running at 20 mL an hour. Dopamine has been weaned off. Labs include a white count 8.3, hemoglobin 7.6, hematocrit 23.2, and platelet count of 63,000. Sodium 136, potassium 4.4, chlorides 107, CO2 20, BUN 49, and creatinine 2.17. Anion gap normal. Albumin is 3. Chest x-ray shows cardiomegaly, with increased interstitial densities bilaterally. There is soni becca a component of fluid overload/increased pulmonary vascular congestion. A right-sided pigtail catheter is noted. There is a moderate right-sided pleural effusion. A left chest tube is in place. Progress note dated 08/01/2021. 81-year-old male, again seen in room 251. He's postop day #4, status post mitral valve replacement, tricuspid valve repair, and single-vessel bypass grafting, SVG to OM. The patient is currently on AIRVO, with settings at 55 L/m and an FiO2 of 65%. The patient did have a right-sided pleural effusion, and a pigtail catheter was placed by the cardiothoracic surgeon. Currently, the patient's getting lactated Ringer's at 20 mL an hour, and dopamine at 2 mcg/kg/ m. The echocardiogram done today shows severe pulmonary hypertension, and flattening of the intraventricular septum. White count 6.8, hemoglobin 7.5, hematocrit 23.5, and platelet count 78,000. Sodium 140, potassium 3.8, chlorides 108, CO2 26, BUN 62, creatinine 2.32. Chest x-ray shows a small r ight-sided pleural effusion, left-sided chest tube, and some mild fluid overload/pulmonary edema. Progress note dated 08/02/2021. 81-year-old male seen again in room 251. He's postop day #5, status post mitral valve replacement, tricuspid valve repair, and single-vessel bypass grafting, SVG to OM. He remains on lactated Ringer's at 20 mL an hour, and AIRVO at 35 L/m with an FiO2. He sitting up at the bedside. He is much more awake and alert. He looks much more comfortable today. White count 9.8, hemoglobin 8, hematocrit 25.3, and platelet count 88,000. PT and INR are normal. Sodium, potassium, chloride, CO2, anion gap are all normal. BUN is 64 with a creatinine of 2.21. Albumin is 3.0. Chest x-ray shows cardiomegaly, with a moderate size right pleural fluid collection, and a pigtail catheter in place. There is a left-sided chest tube. Progress note dated 08/03/2021. 81-year-old male, seen in room 251. He's postop day #6, status post mitral valve replacement, tricuspid valve repair, and single-vessel bypass grafting, SVG to OM. Currently, the patient is on AIRVO at 45 L/m, with an FiO2 of 50%. He's not receiving any IV fluids. He is a bit more sleepy today. He was yesterday. Current labs include a white count of 11.1, hemoglobin 8, hematocrit 25.2, and platelet count 190,000. Sodium 140, potassium 3.7, chlorides 106, CO2 26, BUN 70, creatinine 2.35. Anion gap is 8. Albumin is 2.9.Chest x-ray shows a small to moderate right-sided pleural fluid collection. There is a right- sided pigtail catheter. Left chest tube is noted. Post surgical changes and b asilar atelectasis is noted. Objective - Vital Signs Vital signs: Vital Signs Temp 97.2 F L 08/03/21 04:00 Pulse 60 08/03/21 07:37 Resp 19 08/03/21 07:00 BP 97/41 08/03/21 07:00 Pulse Ox 100 08/03/21 07:26 Intake & Output 08/02/21 08/03/21 08/03/21 18:59 06:59 18:59 Intake Total 184 480 Output Total 835 680 295 Balance -651 -200 -295 Weight 77.2 kg Intake: IV 184 Lactated Ringers 1,000 ml 160 @ 20 mls/hr IV .Q24H [facility] Rx#:[id number] Pressure Bags 24 Oral 480 Output: Chest Tube Drainage 245 L pleural 235 Right Posterior Chest 10 Drainage 300 Right Posterior 300 Urine 535 680 50 Other: Voiding Method Indwelling Catheter Indwelling Catheter ABP, PAP, CO, CI - Last Documented Arterial Blood Pressure 119/35 Pulmonary Artery Pressure 35/28 Cardiac Output 5 Cardiac Index 2.7 - Exam No acute distress, sitting up in the chair, currently on AIRVO. The patient is awake and alert. Saturations are 100 %. HEENT examination is grossly unremarkable. Neck supple. Full range of motion. No adenopathy thyromegaly or neck vein distention. Cardiovascular examination reveals regular rhythm rate. S1-S2 normal. No S3 or S4. No discernible murmur noted. Heart rate 60 bpm Lungs reveal mostly clear breath sounds. Breath sounds are equal bilaterally. Mild scattered rhonchi are noted. No wheezes or crackles. Saturations are 100 %. A left-sided chest tube was noted. A right-sided pigtail catheter is noted. Abdomen soft, without bowel sounds. Extremities are intact. No cyanosis clubbing or edema. Skin is without rash or lesion. Neurologic examination is brief but nonfocal. - Labs CBC & Chem 7: 08/03/21 07:40 08/03/21 07:40 Labs: Abnormal Lab Results - Last 24 Hours (Table) 08/02/21 08/02/21 08/03/21 Range/Units 11:08 20:17 07:40 WBC 11.1 H (3.8-10.6) k/uL RBC 2.57 L (4.30-5.90) m/uL Hgb 8.0 L (13.0-17.5) gm/dL Hct 25.2 L (39.0-53.0) % RDW 16.5 H (11.5-15.5) % Plt Count 109 L (150-450) k/uL Neutrophils # 9.1 H (1.3-7.7) k/uL Lymphocytes # 0.7 L (1.0-4.8) k/uL BUN (9-20) mg/dL Creatinine (0.66-1.25) mg/dL Glucose (74-99) mg/dL POC Glucose (mg/dL) 205 H 161 H (75-99) mg/dL Calcium (8.4-10.2) mg/dL Total Bilirubin (0.2-1.3) mg/dL Total Protein (6.3-8.2) g/dL Albumin (3.5-5.0) g/dL 08/03/21 Range/Units 07:40 WBC (3.8-10.6) k/uL RBC (4.30-5.90) m/uL Hgb (13.0-17.5) gm/dL Hct (39.0-53.0) % RDW (11.5-15.5) % Plt Count (150-450) k/uL Neutrophils # (1.3-7.7) k/uL Lymphocytes # (1.0-4.8) k/uL BUN 70 H (9-20) mg/dL Creatinine 2.35 H (0.66-1.25) mg/dL Glucose 150 H (74-99) mg/dL POC Glucose (mg/dL) (75-99) mg/dL Calcium 7.9 L (8.4-10.2) mg/dL Total Bilirubin 1.6 H (0.2-1.3) mg/dL Total Protein 5.4 L (6.3-8.2) g/dL Albumin 2.9 L (3.5-5.0) g/dL Assessment and Plan Assessment: Postop day #6, status post mitral valve replacement, tricuspid valve repair, and single-vessel bypass grafting, saphenous vein graft to OM. Routine postoperative ventilator management, with successful extubation on 07/28/2021. Postop day #3, status post right-sided pigtail catheter placement for right- sided pleural effusion. Chronic, and worsening, right-sided pleural effusion. History of congestive heart failure. History of valvular heart disease, with previous mitral valve repair, with a MitraClip. Coronary artery disease. History of hyperlipidemia. History of renal insufficiency. Multiple medical problems and comorbidities. Plan: Plan dated 07/28/2021. The patient just arrived back to the intensive care unit. We'll await the chest x-ray in the blood gases. Additional recommendations and suggestions are forthcoming. The patient is currently on updrafts every 4 [id number]. We will continue to follow the patient, and attempt to get the patient extubated as soon as possible. In addition, post extubation, we will continue to work with the patient, to maintain normal lung function, and prevent atelectasis, lobar collapse, pleural effusion, or pneumonia. Plan dated 07/29/2021. The patient remains on norepinephrine at 6.4 mcg/m, dopamine at 3 mcg/kg/m, insulin at 1 unit an hour, and lactated Ringer's at 50 mL an hour. The patient is also on 8 L high flow nasal O2. Chest x-ray continues to show what appears to be a loculated effusion on the right. This is not acute. The patient did receive 2 units of fresh frozen plasma, 2 units of platelets, 1 unit of blood, and albumin. The patient was extubated about 7 or so hours post leaving the operating room. The patient remains in the intensive care unit. We encourage deep breathing, coughing, and clearing her secretions. We also recommend hourly use of the incentive spirometer. Plan dated 07/30/2021. The patient remains on dopamine, norepinephrine, and insulin. No decision has been made yet about the right-sided pleural effusion. The patient was going to give some vitamin K, fresh frozen plasma, and at least one unit of blood. Dr. Marianne lea will decide about a chest tube, versus pigtail catheter, versus bedside thoracentesis. Additional recommendations and suggestions are forthcoming. We'll continue to follow. Prognosis is guarded. The patient is again recommended to use the incentive spirometer every hour while awake, and continue with deep breathing, coughing, and clearing of secretions. Plan dated 07/31/2021. The patient still has a very long way to go. The patient remains on AIRVO at 60 L/m with an FiO2 of 60%. The patient is getting some Bumex a day, and also some Seroquel for some mental status changes. In addition, a right-sided pigtail catheter was placed yesterday. The patient's dopamine has been weaned down. Additional recommendations and suggestions are forthcoming. Labs, x-rays, and medications are all reviewed. Prognosis is guarded. We will continue to follow the patient and make recommendations where appropriate. Plan dated 08/01/2021. The patient is currently on AIRVO, at 55 L/m with an FiO2 of 65%. Right-sided pleural effusion is relatively small. Right pigtail catheter is noted. Drainage from the pigtail catheter is minimal. The patient remains on dopamine at 2 mcg/kg/m. Echocardiogram showed pulmonary hypertension, and flattening of the intraventricular septum. Labs, x-rays, and medications are reviewed. Today, the patient's lethargic and sleepy. The patient has been taken off of dexmedetomidine. Prognosis is guarded. We will continue to follow and make recommendations where appropriate. Plan dated 08/02/2021. The patient appears much more comfortable today. He does remain on AIRVO. The patient is more awake and alert. The patient does have a very wet congested cough. Labs, x-rays, and medications are all reviewed. Prognosis is guarded. We will continue to follow the patient and make recommendations where appropriate. We continue to recommend deep breathing, coughing, and clearing of secretions, as well as hourly use of the incentive spirometer. Plan dated 08/03/2021. The patient is doing about the same today as he was yesterday. He is a bit more sleepy today than he was yesterday. He remains on AIRVO at 45 L/m with an FiO2 of 50%. The patient is not receiving any IV fluids. Chest x-rays, labs, and medications are all reviewed. The patient is not on any discharge from the intensive care unit. Renal functions a bit worse. The right-sided pigtail catheter remains in place. In addition, the left-sided chest tube remains. We will continue to follow the patient and make recommendations where appropriate. Prognosis is guarded. Time with Patient: Less than 30
[2021-08-03 11:10] LABS: Amorphous Sediment,Urine Few /hpf; Appearance,Urine Turbid (Clear); Bacteria,Urine Occasional /hpf; Bilirubin,Urine Negative (Negative); Blood,Urine Large (Negative); Color,Urine Red; Glucose,Urine (UA) Negative (Negative); Hyaline Casts,Urine 12 /lpf (0-2); Ketones,Urine Negative (Negative); Leukocyte Esterase,Urine Moderate (Negative); Mucus,Urine Rare /hpf; Nitrite,Urine Negative (Negative); PH, Urine 5.5 (5.0-8.0); Protein,Urine 2+ (Negative); RBC,Urine >182 /hpf (0-5); Specific Gravity,Urine 1.016 (1.001-1.035); Squamous Epithelial Cell,Urine 1 /hpf (0-4); Urobilinogen,Urine <2.0 mg/dL (<2.0); WBC,Urine 45 /hpf (0-5)
[2021-08-03 11:29] LABS: Glucose,Whole Blood 162 mg/dL (75-99)
[2021-08-03 16:30] LABS: Glucose,Whole Blood 168 mg/dL (75-99)
[2021-08-03 20:29] LABS: Glucose,Whole Blood 151 mg/dL (75-99)
[2021-08-03 20:44] LABS: Glucose,Whole Blood 149 mg/dL (75-99)
[2021-08-03] MEDS: ATORVASTATIN 40 MG TAB PO SCH (20:49)
[2021-08-03] MEDS: CALCIUM ACETATE 667 MG TAB PO SCH (20:49)
[2021-08-04] MEDS: SENNOSIDES-DOCUSATE SODIUM 1 EACH TAB PO SCH (00:12)
[2021-08-04] MEDS: HEPARIN SODIUM,PORCINE/PF 5,000 UNIT/0.5 ML SYRINGE SQ SCH ×4 (00:16→23:05)
[2021-08-04 03:23] LABS: Anisocytosis Slight; Basophils % (A) 0 %; Eosinophils # (A) 0.1 k/uL (0-0.7); Eosinophils % (A) 1 %; HCT 24.8 % (39.0-53.0); HGB 7.8 gm/dL (13.0-17.5); Hypochromasia Moderate; Lymphocytes # (A) 0.8 k/uL (1.0-4.8); Lymphocytes % (A) 6 %; MCH 31.2 pg (25.0-35.0); MCHC 31.4 g/dL (31.0-37.0); MCV 99.1 fL (80.0-100.0); Macrocytosis Slight; Mean Platelet Volume 8.9; Monocytes % (A) 8 %; Neutrophils # (A) 10.1 k/uL (1.3-7.7); Neutrophils % (A) 81 %; Platelet Count 134 k/uL (150-450); RDW 18.3 % (11.5-15.5); WBC 12.4 k/uL (3.8-10.6)
[2021-08-04 03:40] LABS: Albumin 2.9 g/dL (3.5-5.0); Calcium 7.9 mg/dL (8.4-10.2); Potassium 3.7 mmol/L (3.5-5.1); Total Bilirubin 1.5 mg/dL (0.2-1.3); Total Protein 5.3 g/dL (6.3-8.2)
[2021-08-04] MEDS ORDERED: POTASSIUM CHLORIDE ER 20 MEQ TAB.ER PO SCH (05:00)
[2021-08-04 07:04] LABS: Glucose,Whole Blood 134 mg/dL (75-99)
[2021-08-04] MEDS: INSULIN ASPART (NovoLOG) 100 UNIT/ML VIAL SQ SCH ×4 (07:05→20:44)
[2021-08-04] MEDS: IPRATROPIUM-ALBUTEROL 3 ML NEB INHALATION SCH ×4 (07:11→20:33)
--- NOTE | 2021-08-04 07:13 | XR ---
EXAMINATION TYPE: XR chest 1V portable DATE OF EXAM: 08/04/2021 Comparison: 08/03/2021 Clinical History: 81-year-old male postop cardiac surgery Findings: Left anterior chest wall pacemaker generator with right ventricular lead. Median sternotomy wires are present with post-CABG changes. Left-sided chest tube is present. Right-sided pigtail pleural cathet er. Patchy bilateral opacities persist, right greater than left with interval increase from prior exa m. Hyperinflation and cardiomegaly persists ongoing moderate right pleural effusion. No appreciable p neumothorax. Retained epicardial pacer leads. Redemonstrated linear density projecting at the left pa ramedian lower chest measuring 3.4 cm long. Impression: 1. Cardiomegaly and patchy bilateral pulmonary edema shows slight interval worsening. 2. Continued moderate right pleural effusion with adjacent atelectasis and/or consolidation. Pigtail pleural catheter in place. 3. Left-sided chest tube. No appreciable pneumothorax. 4. Unchanged 3.4 cm linear density projecting at the left paramedian lower chest. Correlate as to freida ology.
[2021-08-04] MEDS: ASCORBIC ACID 500 MG TAB PO SCH (08:27)
[2021-08-04] MEDS: PANTOPRAZOLE 40 MG TABLET PO SCH (08:27)
[2021-08-04] MEDS: ASPIRIN 81 MG PO SCH (08:27)
[2021-08-04] MEDS: FOLIC ACID 1 MG TAB PO SCH (08:27)
[2021-08-04] MEDS: FERROUS SULFATE 325 MG TAB PO SCH (08:28)
[2021-08-04] MEDS: allopurinoL 100 MG TAB PO SCH (08:28)
[2021-08-04] MEDS: guaiFENesin 600 MG TABLET.ER PO SCH ×2 (08:28→20:44)
[2021-08-04] MEDS: MUPIROCIN 2% OINT 22 GM TUBE NASAL SCH ×2 (08:28→20:45)
[2021-08-04] MEDS: ACETAMINOPHEN TAB 325 MG TAB PO PRN ×2 (08:31→23:04)
--- NOTE | 2021-08-04 09:00 | P.PN ---
Subjective Progress Note Date: 08/04/21 Principal diagnosis: Mitral valve regurgitation, tricuspid valve regurgitation, and coronary artery disease. Past medical history significant for coronary artery disease with prev ious myocardial infarction and PCI, hypertension, hyperlipidemia, chronic persistent atrial fibrillation on Coumadin for anticoagulation as an outpatient, status post cardioversion, sick sinus syndrome, status post [facility] permanent pacemaker placement in 2017, chronic systolic heart failure, atrial septal defect status post closure, history of MitraClip in 2019, chronic renal insufficiency, remote history of tobacco dependence, restrictive lung disease, obstructive sleep apnea, recurrent right pleural effusions with history of 4 previous thoracentesis, remote history of pneumonia, and a family history of premature coronary artery disease. Preoperative nasal screening positive for MSSA, treated. POD #7 mitral valve replacement with 31 mm Mosaic porcine valve prosthesis, tricuspid valve repair with 30 mm MC3 band, coronary artery bypass grafting 1 with reverse greater saphenous vein graft to the obtuse marginal coronary artery, endovascular vein harvest of the left greater saphenous vein, epi-aortic ultrasound, closure of the left atrial appendage, closure of atrial septal defect. Postoperative acute blood loss anemia and thrombocytopenia, expected given hemodilution and cardiopulmonary bypass pump. Coagulopathy, unexpected, last coumadin dose was on 07/22/21. The patient was seen in follow-up today 08/04/2021 at his bedside in the intensive care unit. Currently the patient is sitting up to the bedside chair, is awake, alert, oriented 3 and is in no acute apparent distress. Denies any complaints of pain or shortness of breath at this time. Oxygen saturations are 96% on 8 L high flow nasal cannula and he is achieving 1000 mL on his incentive spirometry. Bedside telemetry showing paced rhythm heart rate 60 BPM. Left pleural chest tube remains in place to low continuous wall suction -20 cm H2O. No air leak is present. Draining thin serosanguineous drainage with 240 mL output in the last 8 hours and 400 mL output in the last 24 hours. Right pleural pigtail catheter is plugged and is pending a consult from interventional radiology to replace the right pleural pigtail catheter. Cortes catheter was discontinued yesterday. He continues to void with dark nino urine 300 mL output in the last 8 hours. A urinalysis was sent yesterday which showed moderate leukocyte esterase, urine RBCs greater than 182, urine WBCs 45 and occasional bacteria. Urine culture results pending. A stool for C. difficile was also sent yesterday due to some episodes of loose stool and showed negative. Ventricular epicardial pacemaker wires in place and grounded. He has been ambulating in the intensive care unit hallway with standby assistance from nursing and physical therapy staff. Laboratory results this morning show a WBC count of 12.4, hemoglobin 7.8, platelets 134, sodium 137, potassium 3.7, BUN 76 and creatinine 2.36. The patient has been afebrile in the last 24 hours. Objective - Vital Signs Vital signs: Vital Signs Temp 98 F 08/04/21 08:00 Pulse 68 08/04/21 08:00 Resp 28 H 08/04/21 08:00 BP 151/58 08/04/21 08:00 Pulse Ox 96 08/04/21 08:00 Intake & Output 08/03/21 08/04/21 08/04/21 18:59 06:59 18:59 Intake Total 0 240 240 Output Total 845 890 1 Balance -845 -650 239 Weight 74.3 kg Intake: IV 0 Pressure Bags 0 Oral 240 240 Output: Chest Tube Drainage 245 L pleural 235 Right Posterior Chest 10 Drainage [address] 490 Urine 600 400 Stool 1 Other: Voiding Method Indwelling Catheter Indwelling Catheter Indwelling Catheter # Bowel Movements 1 ABP, PAP, CO, CI - Last Documented Arterial Blood Pressure 119/35 Pulmonary Artery Pressure 35/28 Cardiac Output 5 Cardiac Index 2.7 - Exam CONSTITUTIONAL: Sitting up to the bedside chair in the intensive care unit, appears comfortable, cooperative, and is in no apparent acute distress. HEENT: Neck is supple, no JVD, no lymphadenopathy. RESPIRATORY: Lungs sounds essentially clear throughout, diminished to his bilateral bases, right greater than left. Scattered wheezes and rhonchi. Respirations are symmetrical and nonlabored. Currently on 8 L high flow nasal cannula, oxygen saturations 96%. Able to achieve 1000 mL on his incentive spirometry. Strong cough. CARDIOVASCULAR: Regular rhythm and rate. S1 and S2 present, negative for S3, gallop or murmur. Sternum is stable. Palpable peripheral pulses bilaterally. No calf pain or tenderness noted. Heart hugger in place with patient demonstrating appropriate use with encouragement. Knee-high SUMI hose and sequential compression devices in place to his bilateral lower extremities. Bedside telemetry showing paced rhythm at 60 BPM. GASTROINTESTINAL: Abdomen soft, nontender, distended. Active bowel sounds present 4 quadrants. Tolerating diet. No guarding or rigidity. Bowel movement 2 in the last 24 hours. GENITOURINARY: Continues to void. Urine output 300 mL in the last 8 hours. INTEGUMENTARY: Skin is warm and dry with no evidence of clubbing or cyanosis. Midline sternal incision clean dry and well approximated, covered with dry intact dressing. Left lower extremity EVH site well approximated without redness or drainage. NEUROLOGIC: Cranial nerves II through XII intact. No focal deficits. MUSKULOSKELETAL: Able to move all extremities, strength equal bilaterally, generalized weakness. PSYCHIATRIC: Alert and oriented 3, appropriate affect. INVASIVE LINES AND TUBES: Right pleural pigtail catheter in and is plugged. Left pleural chest tube in place to low continuous wall suction -20 cm H2O. No air leak is present. Draining thin serosanguineous drainage with 240 mL output in the last 8 hours and 400 mL output in the last 24 hours. Ventricular epicardial pacemaker wires in place and are grounded. - Allied health notes Allied health notes reviewed: nursing - Labs CBC & Chem 7: 08/04/21 03:10 08/04/21 03:10 Labs: Abnormal Lab Results - Last 24 Hours (Table) 08/03/21 08/03/21 08/03/21 Range/Units 10:50 11:27 16:25 WBC (3.8-10.6) k/uL RBC (4.30-5.90) m/uL Hgb (13.0-17.5) gm/dL Hct (39.0-53.0) % RDW (11.5-15.5) % Plt Count (150-450) k/uL Neutrophils # (1.3-7.7) k/uL Lymphocytes # (1.0-4.8) k/uL Carbon Dioxide (22-30) mmol/L BUN (9-20) mg/dL Creatinine (0.66-1.25) mg/dL Glucose (74-99) mg/dL POC Glucose (mg/dL) 162 H 168 H (75-99) mg/dL Calcium (8.4-10.2) mg/dL Total Bilirubin (0.2-1.3) mg/dL AST (17-59) U/L Total Protein (6.3-8.2) g/dL Albumin (3.5-5.0) g/dL Urine Protein 2+ H (Negative) Urine Blood Large H (Negative) Ur Leukocyte Esterase Moderate H (Negative) Urine RBC >182 H (0-5) /hpf Urine WBC 45 H (0-5) /hpf Amorphous Sediment Few H (None) /hpf Urine Bacteria Occasional H (None) /hpf Hyaline Casts 12 H (0-2) /lpf Urine Mucus Rare H (None) /hpf 08/03/21 08/03/21 08/04/21 Range/Units 20:28 20:42 03:10 WBC 12.4 H (3.8-10.6) k/uL RBC 2.50 L (4.30-5.90) m/uL Hgb 7.8 L (13.0-17.5) gm/dL Hct 24.8 L (39.0-53.0) % RDW 18.3 H (11.5-15.5) % Plt Count 134 L (150-450) k/uL Neutrophils # 10.1 H (1.3-7.7) k/uL Lymphocytes # 0.8 L (1.0-4.8) k/uL Carbon Dioxide (22-30) mmol/L BUN (9-20) mg/dL Creatinine (0.66-1.25) mg/dL Glucose (74-99) mg/dL POC Glucose (mg/dL) 151 H 149 H (75-99) mg/dL Calcium (8.4-10.2) mg/dL Total Bilirubin (0.2-1.3) mg/dL AST (17-59) U/L Total Protein (6.3-8.2) g/dL Albumin (3.5-5.0) g/dL Urine Protein (Negative) Urine Blood (Negative) Ur Leukocyte Esterase (Negative) Urine RBC (0-5) /hpf Urine WBC (0-5) /hpf Amorphous Sediment (None) /hpf Urine Bacteria (None) /hpf Hyaline Casts (0-2) /lpf Urine Mucus (None) /hpf 08/04/21 08/04/21 Range/Units 03:10 07:01 WBC (3.8-10.6) k/uL RBC (4.30-5.90) m/uL Hgb (13.0-17.5) gm/dL Hct (39.0-53.0) % RDW (11.5-15.5) % Plt Count (150-450) k/uL Neutrophils # (1.3-7.7) k/uL Lymphocytes # (1.0-4.8) k/uL Carbon Dioxide 21 L (22-30) mmol/L BUN 76 H (9-20) mg/dL Creatinine 2.36 H (0.66-1.25) mg/dL Glucose 123 H (74-99) mg/dL POC Glucose (mg/dL) 134 H (75-99) mg/dL Calcium 7.9 L (8.4-10.2) mg/dL Total Bilirubin 1.5 H (0.2-1.3) mg/dL AST 62 H (17-59) U/L Total Protein 5.3 L (6.3-8.2) g/dL Albumin 2.9 L (3.5-5.0) g/dL Urine Protein (Negative) Urine Blood (Negative) Ur Leukocyte Esterase (Negative) Urine RBC (0-5) /hpf Urine WBC (0-5) /hpf Amorphous Sediment (None) /hpf Urine Bacteria (None) /hpf Hyaline Casts (0-2) /lpf Urine Mucus (None) /hpf Microbiology - Last 24 Hours (Table) 08/03/21 10:50 Urine Culture - Preliminary Urine,Clean Catch - Imaging and Cardiology Chest x-ray: report reviewed, image reviewed Assessment and Plan Assessment: 1. Mitral valve regurgitation, history of MitraClip in 2019, status post post mitral valve replacement 2. Tricuspid valve regurgitation, status post tricuspid valve repair 3. Coronary artery disease with previous myocardial infarction and PCI, status post 1 vessel CABG 4. History of hypertension, currently hypotensive on levo and dopamine 5. Chronic atrial fibrillation on Coumadin for anticoagulation status post cardioversion, status post closure of the left atrial appendage 6. Sick sinus syndrome status post [facility] permanent pacemaker placement in 2017 7. Chronic systolic heart failure 8. Atrial septal defect status post closure 9. Chronic renal insufficiency 10. Previous tobacco dependence 11. Severe restrictive lung disease, preoperative FEV1 47% of predicted 12. Recurrent right-sided pleural effusion, patient had right sided thoracentesis twice in 2019 and twice in 2020 13. Obstructive sleep apnea 14. Remote history of pneumonia 15. Family history of premature coronary artery disease 16. Postoperative acute blood loss anemia and thrombocytopenia, expected 17. Coagulopathy, resolved Plan: 1. Continue low-dose aspirin, heparin subcu, and statin. Will continue to hold Plavix and beta shila for now, we will restart when able. We will restart anticoagulation when able. 2. Consult nephrology, known to Dr. Brunson's service. 3. Wean O2 as tolerated. Encourage incentive spirometry use 10 times every louise r while awake. Bronchodilators per pulmonology. 4. Increase activity as tolerated. PT/OT/cardiac rehab following. 5. Will monitor daily labs and chest x-rays. 6. GI/DVT prophylaxis. 7. Insulin management per primary care service. Patient is not diabetic, preoperative hemoglobin A1c 5.8% 8. Pain control current medication regimen. 9. Continue left pleural chest tube to low continuous wall suction -20 cm of H2O. Continue to record strict accurate I's and O's. Interventional radiology has been consulted to replace the right pleural pigtail catheter. 10. Continue to record strict accurate intake and output. Daily weights. A bladder scan every 6 hours and when necessary. If greater than 300 mL of urine may straight cath. 11. Encourage nutrition along with nutritional supplements. 12. Discontinue Senokot as the patient is having loose stools. Stool for C. diff was negative. 13. We will remove his ventricular epicardial pacemaker wires today 08/04/2021 and once his pacemaker wires have been removed he will be on bed rest for 1 hour post pacemaker wire removal. 14. More recommendations to follow based on patient's clinical course. Time with Patient: Greater than 30
[2021-08-04 11:19] LABS: Glucose,Whole Blood 179 mg/dL (75-99)
--- NOTE | 2021-08-04 11:22 | P.PN ---
Subjective Progress Note Date: 08/04/21 This is a 81-year-old female who had mitral valve replacement, tricuspid valve repair in 1 vessel bypass surgery on 328 along with closure of ASD. Patient had mitral valve. In the past for mitral insufficiency. Patient seemed to be relatively stable. He has bilateral pleural chest tube and also pigtail catheters. Denies any significant chest pain or shortness of breath. He seemed to be in paced rhythm. Doesn't appear to be in acute distress. His creatinine is going up. Patient has history of chronic renal failure. Nephrology is consulted. We'll continue current medical therapy. Increase activity as tolerated. Further recommendations depend upon the clinical course. no acute cardiac arrhythmias Objective - Vital Signs Vital signs: Vital Signs Temp 98 F 08/04/21 08:00 Pulse 65 08/04/21 10:00 Resp 17 08/04/21 10:00 BP 116/45 08/04/21 10:00 Pulse Ox 94 L 08/04/21 10:00 Intake & Output 08/03/21 08/04/21 08/04/21 18:59 06:59 18:59 Intake Total 0 240 340 Output Total 845 890 1 Balance -845 -650 339 Weight 74.3 kg Intake: IV 0 0 Pressure Bags 0 0 Oral 240 340 Output: Chest Tube Drainage 245 L pleural 235 Right Posterior Chest 10 Drainage [address] 490 Urine 600 400 Stool 1 Other: Voiding Method Indwelling Catheter Indwelling Catheter Indwelling Catheter # Bowel Movements 1 ABP, PAP, CO, CI - Last Documented Arterial Blood Pressure 119/35 Pulmonary Artery Pressure 35/28 Cardiac Output 5 Cardiac Index 2.7 - Exam GENERAL EXAM: Patient is alert and oriented and doesn't appear to be in any acute distress HEENT: Normocephalic. Normal reaction of pupils, equal size, normal range of extraocular motion. No erythema or exudates in the throat. NECK: No masses, no nuchal rigidity. CHEST: Postsurgical with the chest tubes and catheters LUNGS: Diminished air entry HEART: S1 and S2 normal with no audible mumurs or gallops. Regular rhythm, femorals equal on both sides.. ABDOMEN: No hepatosplenomegaly, normal bowel sounds, no guarding or rigidity. SKIN: No rashes CENTRAL NERVOUS SYSTEM: No focal deficits. EXTREMITIES: No cyanosis, clubbing or edema. - Labs CBC & Chem 7: 08/04/21 03:10 08/04/21 08:47 Labs: Abnormal Lab Results - Last 24 Hours (Table) 08/03/21 08/03/21 08/03/21 Range/Units 11:27 16:25 20:28 WBC (3.8-10.6) k/uL RBC (4.30-5.90) m/uL Hgb (13.0-17.5) gm/dL Hct (39.0-53.0) % RDW (11.5-15.5) % Plt Count (150-450) k/uL Neutrophils # (1.3-7.7) k/uL Lymphocytes # (1.0-4.8) k/uL Carbon Dioxide (22-30) mmol/L BUN (9-20) mg/dL Creatinine (0.66-1.25) mg/dL Glucose (74-99) mg/dL POC Glucose (mg/dL) 162 H 168 H 151 H (75-99) mg/dL Calcium (8.4-10.2) mg/dL Total Bilirubin (0.2-1.3) mg/dL AST (17-59) U/L Total Protein (6.3-8.2) g/dL Albumin (3.5-5.0) g/dL 08/03/21 08/04/21 08/04/21 Range/Units 20:42 03:10 03:10 WBC 12.4 H (3.8-10.6) k/uL RBC 2.50 L (4.30-5.90) m/uL Hgb 7.8 L (13.0-17.5) gm/dL Hct 24.8 L (39.0-53.0) % RDW 18.3 H (11.5-15.5) % Plt Count 134 L (150-450) k/uL Neutrophils # 10.1 H (1.3-7.7) k/uL Lymphocytes # 0.8 L (1.0-4.8) k/uL Carbon Dioxide 21 L (22-30) mmol/L BUN 76 H (9-20) mg/dL Creatinine 2.36 H (0.66-1.25) mg/dL Glucose 123 H (74-99) mg/dL POC Glucose (mg/dL) 149 H (75-99) mg/dL Calcium 7.9 L (8.4-10.2) mg/dL Total Bilirubin 1.5 H (0.2-1.3) mg/dL AST 62 H (17-59) U/L Total Protein 5.3 L (6.3-8.2) g/dL Albumin 2.9 L (3.5-5.0) g/dL 08/04/21 Range/Units 07:01 WBC (3.8-10.6) k/uL RBC (4.30-5.90) m/uL Hgb (13.0-17.5) gm/dL Hct (39.0-53.0) % RDW (11.5-15.5) % Plt Count (150-450) k/uL Neutrophils # (1.3-7.7) k/uL Lymphocytes # (1.0-4.8) k/uL Carbon Dioxide (22-30) mmol/L BUN (9-20) mg/dL Creatinine (0.66-1.25) mg/dL Glucose (74-99) mg/dL POC Glucose (mg/dL) 134 H (75-99) mg/dL Calcium (8.4-10.2) mg/dL Total Bilirubin (0.2-1.3) mg/dL AST (17-59) U/L Total Protein (6.3-8.2) g/dL Albumin (3.5-5.0) g/dL Microbiology - Last 24 Hours (Table) 08/03/21 10:50 Urine Culture - Preliminary Urine,Clean Catch Assessment and Plan (1) Status post mitral valve replacement Current Visit: Yes Status: Acute Code(s): Z95.2 - PRESENCE OF PROSTHETIC HEART VALVE SNOMED Code(s): 2084636506386 (2) Status post single vessel coronary artery bypass Current Visit: Yes Status: Acute Code(s): Z95.1 - PRESENCE OF AORTOCORONARY BYPASS GRAFT SNOMED Code(s): 397442936 (3) Pleural effusion Current Visit: No Status: Acute Code(s): J90 - PLEURAL EFFUSION, NOT EL SEWHERE CLASSIFIED SNOMED Code(s): 27036183 (4) Acute on chronic renal failure Current Visit: Yes Status: Acute Code(s): N17.9 - ACUTE KIDNEY FAILURE, UNSPECIFIED; N18.9 - CHRONIC KIDNEY DISEASE, UNSPECIFIED SNOMED Code(s): 337527261 (5) Chronic a-fib Current Visit: No Status: Acute Code(s): I48.2 - CHRONIC ATRIAL FIBRILLATION * DO NOT USE * SNOMED Code(s): 460112465 (6) Presence of permanent cardiac pacemaker Current Visit: Yes Status: Acute Code(s): Z95.0 - PRESENCE OF CARDIAC PACEMAKER SNOMED Code(s): 946385401 Plan: Continue current medical therapy. Incentive spirometry. Nephrology follow-up. Further recommendations depend upon the clinical course
--- NOTE | 2021-08-04 11:28 | CT ---
EXAMINATION TYPE: CT chest wo con DATE OF EXAM: 08/04/2021 COMPARISON: Prior CT July 14, 2021. Chest x-ray earlier today and older x-rays. HISTORY: RT Pleural Effusion CT DLP: 395.8 mGycm. Automated Exposure Control for Dose Reduction was Utilized. TECHNIQUE: CT scan of the thorax is performed without IV contrast. FINDINGS: LUNGS: Small to moderate-sized right-sided pleural fluid collection does not completely layer depende ntly is diminished in size from prior CT with peripheral right-sided pigtail pleural drainage cathete r. Left apical oriented chest tube is present with trace anterior superior residual pneumothorax axia l image 8 for reference. Persistent right infrahilar masslike consolidation measuring approximately 4 .8 x 3.5 cm. Cannot exclude underlying mass or neoplasm. MEDIASTINUM: Lack of IV contrast is noted to limit evaluation for mediastinal and especially hilar ad enopathy. There are persistent prominent lymph nodes in the prevascular space, AP window, paratrachea l, pericarinal, and subcarinal levels. 4) is 1.6 x 1.1 cm right paratracheal lymph node axial image 21. Prominent cardiomegaly with single lead pacemaker redemonstrated. New Overlying sternal wires. T he vertical oriented density corresponds to interval surgical change of level of the tricuspid valve. Atrial septal closure device redemonstrated axial image 39. Suspect additional surgical change at le ch[place] of mitral valve. New Inferior epicardial pacer wires. New overlying sternal wires. OTHER: No additional significant abnormality is seen. IMPRESSION: Small to moderate-sized possible right pleural fluid collection is decreased in size from prior CT after percutaneous pigtail drainage catheter placement. Stable 4.8 cm central right infrahi lar mass and/or masslike consolidation. Underlying mass or neoplasm not excluded. Consider PET CT or bronchoscopy follow-up based on clinical correlation if the collected draining pleural fluid is not d iagnostic. Gross cardiomegaly redemonstrated.
[2021-08-04] MEDS: DARBEPOETIN ALFA 60 MCG/0.3 ML SYRINGE SQ SCH (11:48)
--- NOTE | 2021-08-04 13:26 | P.PN ---
Subjective Progress Note Date: 08/04/21 This is a very pleasant 81-year-old male patient is being seen in follow-up. The patient is postop day #7. 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 Note that the patient had a preoperative right-sided pleural effusion along with various other medical problems and comorbidities. Postop, the patient becomes hypoxic and short of breath post extubation. He was on high flow oxygen. The right-sided pleural effusion was noted and at that point a pigtail catheter was inserted into the right hemithorax. The catheter was inserted and the patient was having adequate drainage for the past 48 hours and since yesterday, there has been no output. The patient continues to have a left-sided chest tube and output has been around 400 mL over the past 8-12 hours. The patient is using incentive spirometer. The patient is currently on 8 L of oxygen by nasal cannula with a pulse oximetry 96%. The patient is pulling approximately 1000 on his incentive spirometer. His cardiac rhythm is basically rate of 60. The patient is hemodynamically stable and the patient is on no pressors at this point in time. He doesn't component of chronic kidney disease. The BUN is at 76 with a creatinine of 2.36. Potassium level is at 3.7 with a sodium level of 137. Hemoglobin is at 7.8 with a platelet count 234. A repeat chest x-ray was done and it showed cardiomegaly, a loculated right-sided pleural effusion, impacted on the right, and a chest tube on the left and post thoracotomy changes in the mid sternal area. The patient has chronic kidney disease, obstructive sleep apnea, he has undergone previous thoracenteses regarding the right-sided pleural effusion and pleural fluid cytology has been essentially negative for malignancy. He is awake and alert and following commands and answering questions appropriately. Objective - Vital Signs Vital signs: Vital Signs Temp 97.9 F 08/04/21 12:00 Pulse 63 08/04/21 12:26 Resp 24 08/04/21 12:00 BP 126/62 08/04/21 12:00 Pulse Ox 96 08/04/21 12:00 Intake & Output 08/03/21 08/04/21 08/04/21 18:59 06:59 18:59 Intake Total 0 240 440 Output Total 845 890 51 Balance -845 -650 389 Weight 74.3 kg 74.3 kg Intake: IV 0 0 Pressure Bags 0 0 Oral 240 440 Output: Chest Tube Drainage 245 L pleural 235 Right Posterior Chest 10 Drainage [address] 490 Urine 600 400 50 Stool 1 Other: Voiding Method Indwelling Catheter Indwelling Catheter Indwelling Catheter # Bowel Movements 1 ABP, PAP, CO, CI - Last Documented Arterial Blood Pressure 119/35 Pulmonary Artery Pressure 35/28 Cardiac Output 5 Cardiac Index 2.7 - Exam CONSTITUTIONAL: Sitting up to the bedside chair in the intensive care unit, appears comfortable, cooperative, and is in no apparent acute distress. HEENT: Neck is supple, no JVD, no lymphadenopathy. RESPIRATORY: Lungs sounds essentially clear throughout, diminished to his bilateral bases, right greater than left. Scattered wheezes and rhonchi. Respirations are symmetrical and nonlabored. Currently on 8 L high flow nasal cannula, oxygen saturations 96%. Able to achieve 1000 mL on his incentive spirometry. Strong cough. CARDIOVASCULAR: Regular rhythm and rate. S1 and S2 present, negative for S3, gallop or murmur. Sternum is stable. Palpable peripheral pulses bilaterally. No calf pain or tenderness noted. Heart hugger in place with patient demonstrat ing appropriate use with encouragement. Knee-high SUMI hose and sequential compression devices in place to his bilateral lower extremities. Bedside telemetry showing paced rhythm at 60 BPM. GASTROINTESTINAL: Abdomen soft, nontender, distended. Active bowel sounds present 4 quadrants. Tolerating diet. No guarding or rigidity. Bowel movement 2 in the last 24 hours. GENITOURINARY: Continues to void. Urine output 300 mL in the last 8 hours. INTEGUMENTARY: Skin is warm and dry with no evidence of clubbing or cyanosis. Midline sternal incision clean dry and well approximated, covered with dry intact dressing. Left lower extremity EVH site well approximated without redness or drainage. NEUROLOGIC: Cranial nerves II through XII intact. No focal deficits. MUSKULOSKELETAL: Able to move all extremities, strength equal bilaterally, generalized weakness. PSYCHIATRIC: Alert and oriented 3, appropriate affect. INVASIVE LINES AND TUBES: Right pleural pigtail catheter in and is plugged. Left pleural chest tube in place to low continuous wall suction -20 cm H2O. No air leak is present. Draining thin serosanguineous drainage with 240 mL output in the last 8 hours and 400 mL output in the last 24 hours. Ventricular epicardial pacemaker wires in place and are grounded. - Labs CBC & Chem 7: 08/04/21 03:10 08/04/21 08:47 Labs: Abnormal Lab Results - Last 24 Hours (Table) 08/03/21 08/03/21 08/03/21 Range/Units 16:25 20:28 20:42 WBC (3.8-10.6) k/uL RBC (4.30-5.90) m/uL Hgb (13.0-17.5) gm/dL Hct (39.0-53.0) % RDW (11.5-15.5) % Plt Count (150-450) k/uL Neutrophils # (1.3-7.7) k/uL Lymphocytes # (1.0-4.8) k/uL Carbon Dioxide (22-30) mmol/L BUN (9-20) mg/dL Creatinine (0.66-1.25) mg/dL Glucose (74-99) mg/dL POC Glucose (mg/dL) 168 H 151 H 149 H (75-99) mg/dL Calcium (8.4-10.2) mg/dL Total Bilirubin (0.2-1.3) mg/dL AST (17-59) U/L Total Protein (6.3-8.2) g/dL Albumin (3.5-5.0) g/dL 08/04/21 08/04/21 08/04/21 Range/Units 03:10 03:10 07:01 WBC 12.4 H (3.8-10.6) k/uL RBC 2.50 L (4.30-5.90) m/uL Hgb 7.8 L (13.0-17.5) gm/dL Hct 24.8 L (39.0-53.0) % RDW 18.3 H (11.5-15.5) % Plt Count 134 L (150-450) k/uL Neutrophils # 10.1 H (1.3-7.7) k/uL Lymphocytes # 0.8 L (1.0-4.8) k/uL Carbon Dioxide 21 L (22-30) mmol/L BUN 76 H (9-20) mg/dL Creatinine 2.36 H (0.66-1.25) mg/dL Glucose 123 H (74-99) mg/dL POC Glucose (mg/dL) 134 H (75-99) mg/dL Calcium 7.9 L (8.4-10.2) mg/dL Total Bilirubin 1.5 H (0.2-1.3) mg/dL AST 62 H (17-59) U/L Total Protein 5.3 L (6.3-8.2) g/dL Albumin 2.9 L (3.5-5.0) g/dL 08/04/21 Range/Units 11:17 WBC (3.8-10.6) k/uL RBC (4.30-5.90) m/uL Hgb (13.0-17.5) gm/dL Hct (39.0-53.0) % RDW (11.5-15.5) % Plt Count (150-450) k/uL Neutrophils # (1.3-7.7) k/uL Lymphocytes # (1.0-4.8) k/uL Carbon Dioxide (22-30) mmol/L BUN (9-20) mg/dL Creatinine (0.66-1.25) mg/dL Glucose (74-99) mg/dL POC Glucose (mg/dL) 179 H (75-99) mg/dL Calcium (8.4-10.2) mg/dL Total Bilirubin (0.2-1.3) mg/dL AST (17-59) U/L Total Protein (6.3-8.2) g/dL Albumin (3.5-5.0) g/dL Microbiology - Last 24 Hours (Table) 08/03/21 10:50 Urine Culture - Final Urine,Clean Catch Assessment and Plan Plan: 1 postop day #7 following mitral valve replacement, tricuspid valve repair and single-vessel bypass surgery with SVG to acute marginal. The patient is postop day #7. 2 post thoracotomy with secondary atelectatic changes and bilateral pleural effusion with hypoxic respiratory failure, currently on 8 L about 2 by nasal cannula 3 chronic right-sided loculated right-sided pleural effusion, post previous thoracentesis with negative fluid cytology. The patient has a pigtail catheter insertion few days back in the neck. Output is 0 at this point in time. Consider loculation within the right hemithorax pain consider dislodgment of the pigtail catheter. 4 post thoracotomy left-sided pleural effusion, chest tube is in place on the left 5 acute hypoxic respiratory failure currently on 8 L of oxygen by cannula 6 history of sick sinus syndrome and the patient has a [employer] pacemaker placement in 2017 7 chronic atrial fibrillation maintained on medical condition with warfarin on outpatient basis. The patient has undergone closure of the left atrial appendag e 8 chronic systolic heart failure 98 shows septal defect post closure 10 chronic kidney disease stage III 11 restrictive lung disease with a preop FEV1 of 47% of predicted 12 seconds sleep apnea 13 postoperative acute blood loss anemia, expected outcome of surgery. Plan Proceed with a CAT scan of the chest without contrast We'll discuss the findings with interventional radiology and if needed we'll insert another chest tube with a pigtail catheter on the right Monitor the output from the left-sided chest tube Continue using incentive spirometer Wean down the FiO2 to maintain a saturation above 90% Continue aspirin Continue aggressive pulmonary toileting We'll continue to follow. Keep the patient ICU for another 24 hours.
--- NOTE | 2021-08-04 13:54 | P.NPCON ---
History of Present Illness - Reason for Consult acute renal failure - History of Present Illness Patient is a 81-year-old male with history of chronic kidney disease NKF stage IIIB with baseline creatinine about 1.6-1.7 mg/dL. Patient is status post mitral valve replacement and tricuspid valve repair and s kina vessel coronary artery bypass surgery. He is postop day #7 today. Patient has done fairly well postoperatively. Patient has had bilateral pleural effusions and currently has a pigtail catheter on the right side with the left chest tube. Patient was volume overloaded and was maintained on diuretics. Bumex is currently discontinued. Hemoglobin had dropped to 6.6 g/dL. Patient is status post packed RBCs. No active bleeding noted at this time. This morning patient is fairly stable he denies any significant shortness of breath. He is hemodynamically stable with blood pressure him a systolic ranging between 120-1 50 mmHg. Urine output at 50-100 mL an hour Serum creatinine increased from 1.46 initially to 2.35 and has stayed the same for the last couple of days. Review of Systems As per HPI, other systems negative Past Medical History Past Medical History: Atrial Fibrillation, Coronary Artery Disease (CAD), Heart Failure, COPD, Hyperlipidemia, Hypertension, Myocardial Infarction ([place]), Osteoarthritis (OA), Pneumonia, Prostate Disorder, Renal Disease, Sleep Apnea/CPAP/BIPAP Additional Past Medical History / Comment(s): CPAP use, PSA elevated, CKD Stage 2-3, gout bilateral great toes. Last Myocardial Infarction Date:: 2001 History of Any Multi-Drug Resistant Organisms: None Reported Past Surgical History: Appendectomy, Heart Catheterization, Heart Catheterization With Stent, Orthopedic Surgery, Pacemaker Additional Past Surgical History / Comment(s): PCI with stents, pacemaker, p ercutaneous closure of ASD/PFO, multiple AVIVA, colonoscopy with benign polyps, R hand surgery for dupuytren's and injections to L hand for the same, ORIF R elbow and wrist as child. Past Anesthesia/Blood Transfusion Reactions: No Reported Reaction Additional Past Anesthesia/Blood Transfusion Reaction / Comment(s): Pt has clausterphobia Date of Last Stent Placement:: 10/2012 Type of Cardiac Device: Permanent Pacemaker Device Placement Date:: 2016 Past Psychological History: No Psychological Hx Reported Smoking Status: Former smoker Past Alcohol Use History: Heavy Additional Past Alcohol Use History / Comment(s): Started smoking in 1960 and quit in 1974. Hx of being a heavy drinker but quit about 2006. Very rare drink now, once a year. Past Drug Use History: None Reported - Past Family History Father Additional Family Medical History / Comment(s): Father had heart problems. Mother Family Medical History: AFIB Additional Family Medical History / Comment(s): Mother had heart problems. Sister(s) Family Medical History: Cancer Additional Family Medical History / Comment(s): One sister with breast cancer and another had a pacemaker. Medications and Allergies Home Medications Medication Instructions Recorded Confirmed Type Atorvastatin [Lipitor] 40 mg PO HS 07/21/14 07/25/21 History amLODIPine BESYLATE [Norvasc] 10 mg PO HS #30 tablet 05/06/16 07/25/21 Rx Clopidogrel Bisulfate [Plavix] 75 mg PO QAM 06/25/20 07/25/21 History Allopurinol [Zyloprim] 150 mg PO QAM 06/17/21 07/25/21 History Bumetanide [BUMEX] 1 mg PO QA 06/17/21 07/25/21 History Bumetanide [Bumex] 3 mg PO HS 06/17/21 07/25/21 History Isosorbide Mononitrate ER [Imdur] 60 mg PO QA 06/17/21 07/25/21 History Losartan Potassium 50 mg PO QAM 06/17/21 07/25/21 History Potassium Chloride [Klor-Con 20 20 meq PO BID 06/17/21 07/25/21 History Packets] Warfarin [Coumadin] 1 mg PO HS 06/17/21 07/25/21 History Ascorbic Acid [Vitamin C] 1,000 mg PO QAM 07/22/21 07/25/21 History Calcium Acetate 667 mg PO HS 07/22/21 07/25/21 History Ergocalciferol [Vitamin D2 (1250 1,250 mcg PO Q30D 07/22/21 07/25/21 History Mcg = [id number] Iu)] Ferrous Sulfate [Iron] 325 mg PO QAM 07/22/21 07/25/21 History Folic Acid 0.4 mg PO QAM 07/22/21 07/25/21 History Loratadine [Claritin] 10 mg PO QAM 07/22/21 07/25/21 History Mupirocin [Mupirocin 2%] 1 applic NASAL BID #1 tub 07/24/21 07/25/21 Rx Aspirin 325 mg PO DAILY 07/28/21 07/28/21 History Allergies Allergy/AdvReac Type Severity Reaction Status Date / Time furosemide [From Lasix] Allergy Swelling Verified 07/28/21 06:08 Physical Exam Vitals: Vital Signs Temp Pulse Resp BP Pulse Ox 08/04/21 12:26 63 08/04/21 12:18 62 08/04/21 12:00 97.9 F 63 24 126/62 96 08/04/21 11:00 60 24 122/69 95 08/04/21 10:00 65 17 116/45 94 L 08/04/21 09:00 64 24 117/76 91 L 08/04/21 08:00 98 F 68 28 H 151/58 96 08/04/21 07:23 64 08/04/21 07:13 61 90 L 08/04/21 07:00 60 26 H 151/58 100 08/04/21 06:00 97.8 F 62 23 112/48 97 08/04/21 05:00 60 15 93/47 99 08/04/21 04:04 100 08/04/21 04:00 60 14 131/82 95 08/04/21 03:00 60 12 132/68 99 08/04/21 02:00 97.4 F L 60 14 134/67 97 08/04/21 01:00 60 15 131/68 99 08/04/21 00:00 60 20 126/64 96 08/03/21 23:12 61 14 126/64 97 08/03/21 23:00 59 L 12 130/58 96 08/03/21 22:18 96 08/03/21 22:00 61 24 89 L 08/03/21 21:00 98.8 F 65 21 124/71 90 L 08/03/21 20:00 63 19 138/69 82 L 08/03/21 19:28 63 08/03/21 19:21 67 08/03/21 19:00 66 22 142/87 91 L 08/03/21 18:00 67 8 L 108/49 91 L 08/03/21 17:00 63 17 134/75 92 L 08/03/21 16:00 97.5 F L 62 24 112/57 92 L 08/03/21 15:28 65 08/03/21 15:18 61 08/03/21 15:00 65 12 142/73 83 L 08/03/21 14:00 64 20 132/47 95 Intake and Output 08/03/21 08/04/21 08/04/21 22:59 06:59 14:59 Intake Total 0 240 680 Output Total 550 640 101 Balance -550 -400 579 Intake: IV 0 0 Pressure Bags 0 0 Oral 240 680 Output: Drainage [address] 250 240 Urine 300 400 100 Stool 1 Other: Voiding Method Indwelling Catheter Indwelling Catheter Indwelling Catheter # Bowel Movements 1 Weight 74.3 kg 74.3 kg Patient is awake, comfortable, not in any acute distress Examination of the heart S1 and S2 Examination lungs bilateral breath sounds are heard. Decreased breath sounds at the bases right worse than left Abdomen is soft nontender Examination of the lower extremities shows no significant edema right lower leg. HOSPICE [employer]IC THERAPIST exam grossly intact Results - Lab Results Most recent lab results ABG pH 7.29 (7.35-7.45) L 07/29/21 19:37 ABG pCO2 41 mmHg (35-45) 07/29/21 19:37 ABG pO2 61 mmHg (83-108) L 07/29/21 19:37 ABG HCO3 20 mmol/L (21-25) L 07/29/21 19:37 ABG O2 Saturation 91.1 % (94-97) L 07/29/21 19:37 Calcium 7.9 mg/dL (8.4-10.2) L 08/04/21 03:10 Magnesium 2.9 mg/dL (1.6-2.3) H 07/30/21 04:55 08/04/21 03:10 08/04/21 08:47 Assessment and Plan Assessment: 1. Acute kidney injury, ATN currently nonoliguric, mostly hemodynamic and associated with anemia as well. Patient is status post diuresis. Continue off of diuretics for now. 2. Anemia postoperatively check iron profile. Patient is status post packed RBCs I will also start him on Aranesp. 3. Coronary artery disease status post coronary artery bypass surgery 1 with mitral valve replacement and tricuspid valve repair, postop day #7 4. Chronic kidney disease NKF stage IIIB baseline creatinine about 1.6-1.7. Serum creatinine as low as 1.2 on 07/28/2021,? Falsely low secondary to volume overload 5. 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 Hematuria, status post discontinuation of Cortes catheter. No anticoagulation on board. Plan: Check iron profile Add Aranesp Continue off of diuretics for now Continue to avoid nephrotoxic agents Repeat labs in a.m. Check phosphorus
--- NOTE | 2021-08-04 14:53 | P.CONS ---
History of Present Illness - Chief Complaint Cardiac debility - History of Present Illness I had the opportunity to see patient for inpatient rehab consultation with regard to cardiac debility. He was admitted to Dr. Collado July 28 for elective Mitral valve replacement with 31 mm most porcine valve prosthesis, tricuspid valve repair with 30 mm and C3 band, epi-aortic ultrasound, CABG 1 with saphenous vein graft to obtuse marginal, endovascular vein harvest, closure of left atrial appendage, closure of ASD. Seen by Dr. Salinas for ICU and pulmonary care. Seen by Dr. Boykin for ATN. Seen by Dr. donna ngo for medical. Chest CT demonstrates right pleural effusion and chest x-rays followed for the effusion. In fact patient receiving new thoracentesis tube per radiology. Started therapy. PT reports two-person assistance bed mobility, transfers, gait 40 feet. OT prescribed. Previous functional history as elicited from patient: 81-year-old right-handed white male who is lives and 2 floor home with . Both retired. generally does the cooking and laundry. Patient independent with driving, standing shower and gait without device. PCP Dr. Brink. Denies tobacco or alcohol. Review of Systems Review of systems: ENT: Denies sneezes or discharge. Eyes: Denies discharge or photophobia. Cardiac: Denies chest pain or palpitation. Sternal discomfort. Pulmonary: shortness of breath. Gastrointestinal: Denies nausea, emesis, constipation, diarrhea. Genitourinary: Denies discharge or frequency. Musculoskeletal: Denies muscle or bone aches. Neurologic: Denies motor or sensory change. Endocrine: Denies shakes or sweats. Oncology: Denies cancers. Dermatologic: Denies rash, itching, pruritus. ALLERGY/immunology: Denies sneezes, rashes. Past Medical History Past Medical History: Atrial Fibrillation, Coronary Artery Disease (CAD), Heart Failure, COPD, Hyperlipidemia, Hypertension, Myocardial Infarction (RI), Osteoarthritis (OA), Pneumonia, Prostate Disorder, Renal Disease, Sleep Apnea/CPAP/BIPAP Additional Past Medical History / Comment(s): CPAP use, PSA elevated, CKD Stage 2-3, gout bilateral great toes. Last Myocardial Infarction Date:: 2001 History of Any Multi-Drug Resistant Organisms: None Reported Past Surgical History: Appendectomy, Heart Catheterization, Heart Catheterization With Stent, Orthopedic Surgery, Pacemaker Additional Past Surgical History / Comment(s): PCI with stents, pacemaker, percutaneous closure of ASD/PFO, multiple AVIVA, colonoscopy with benign polyps, R hand surgery for dupuytren's and injections to L hand for the same, ORIF R elbow and wrist as child. Past Anesthesia/Blood Transfusion Reactions: No Reported Reaction Additional Past Anesthesia/Blood Transfusion Reaction / Comm: Pt has [place] terphobia Date of Last Stent Placement:: 10/2012 Type of Cardiac Device: Permanent Pacemaker Device Placement Date:: 2016 Past Psychological History: No Psychological Hx Reported Smoking Status: Former smoker Past Alcohol Use History: Heavy Additional Past Alcohol Use History / Comment(s): Started smoking in 1960 and quit in 1974. Hx of being a heavy drinker but quit about 2006. Very rare drink now, once a year. Past Drug Use History: None Reported - Past Family History Father Additional Family Medical History / Comment(s): Father had heart problems. Mother Family Medical History: AFIB Additional Family Medical History / Comment(s): Mother had heart problems. Sister(s) Family Medical History: Cancer Additional Family Medical History / Comment(s): One sister with breast cancer and another had a pacemaker. Medications and Allergies Home Medications Medication Instructions Recorded Confirmed Type Atorvastatin [Lipitor] 40 mg PO HS 07/21/14 07/25/21 History amLODIPine BESYLATE [Norvasc] 10 mg PO HS #30 tablet 05/06/16 07/25/21 Rx Clopidogrel Bisulfate [Plavix] 75 mg PO QAM 06/25/20 07/25/21 History Allopurinol [Zyloprim] 150 mg PO QAM 06/17/21 07/25/21 History Bumetanide [BUMEX] 1 mg PO QAM 06/17/21 07/25/21 History Bumetanide [Bumex] 3 mg PO HS 06/17/21 07/25/21 History Isosorbide Mononitrate ER [Imdur] 60 mg PO QAM 06/17/21 07/25/21 History Losartan Potassium 50 mg PO QAM 06/17/21 07/25/21 History Potassium Chloride [Klor-Con 20 20 meq PO BID 06/17/21 07/25/21 History Packets] Warfarin [Coumadin] 1 mg PO HS 06/17/21 07/25/21 History Ascorbic Acid [Vitamin C] 1,000 mg PO QAM 07/22/21 07/25/21 History Calcium Acetate 667 mg PO HS 07/22/21 07/25/21 History Ergocalciferol [Vitamin D2 (1250 1,250 mcg PO Q30D 07/22/21 07/25/21 History Mcg = [id number] Iu)] Ferrous Sulfate [Iron] 325 mg PO QAM 07/22/21 07/25/21 History Folic Acid 0.4 mg PO QAM 07/22/21 07/25/21 History Loratadine [Claritin] 10 mg PO QAM 07/22/21 07/25/21 History Mupirocin [Mupirocin 2%] 1 applic NASAL BID #1 tub 07/24/21 07/25/21 Rx Aspirin 325 mg PO DAILY 07/28/21 07/28/21 History Allergies Allergy/AdvReac Type Severity Reaction Status Date / Time furosemide [From Lasix] Allergy Swelling Verified 07/28/21 06:08 Physical Exam Vitals: Vital Signs Temp Pulse Resp BP Pulse Ox 08/04/21 14:00 65 14 140/94 97 08/04/21 13:00 71 26 H 125/59 08/04/21 12:26 63 08/04/21 12:18 62 08/04/21 12:00 97.9 F 63 24 126/62 96 08/04/21 11:00 60 24 122/69 95 08/04/21 10:00 65 17 116/45 94 L 08/04/21 09:00 64 24 117/76 91 L 08/04/21 08:00 98 F 68 28 H 151/58 96 08/04/21 07:23 64 08/04/21 07:13 61 90 L 08/04/21 07:00 60 26 H 151/58 100 08/04/21 06:00 97.8 F 62 23 112/48 97 08/04/21 05:00 60 15 93/47 99 08/04/21 04:04 100 08/04/21 04:00 60 14 131/82 95 08/04/21 03:00 60 12 132/68 99 08/04/21 02:00 97.4 F L 60 14 134/67 97 08/04/21 01:00 60 15 131/68 99 08/04/21 00:00 60 20 126/64 96 08/03/21 23:12 61 14 126/64 97 08/03/21 23:00 59 L 12 130/58 96 08/03/21 22:18 96 08/03/21 22:00 61 24 89 L 08/03/21 21:00 98.8 F 65 21 124/71 90 L 08/03/21 20:00 63 19 138/69 82 L 08/03/21 19:28 63 08/03/21 19:21 67 08/03/21 19:00 66 22 142/87 91 L 08/03/21 18:00 67 8 L 108/49 91 L 08/03/21 17:00 63 17 134/75 92 L 08/03/21 16:00 97.5 F L 62 24 112/57 92 L 08/03/21 15:28 65 08/03/21 15:18 61 08/03/21 15:00 65 12 142/73 83 L Intake and Output 08/03/21 08/04/21 08/04/21 22:59 06:59 14:59 Intake Total 0 240 680 Output Total 550 640 101 Balance -550 -400 579 Intake: IV 0 0 Pressure Bags 0 0 Oral 240 680 Output: Drainage [address] 250 240 Urine 300 400 100 Stool 1 Other: Voiding Method Indwelling Catheter Indwelling Catheter Indwelling Catheter # Bowel Movements 1 Weight 74.3 kg 74.3 kg Skin: Atrophic, intact. General: Medium build and comfortable appearance. Head: Normocephalic, atraumatic. Eyes: Symmetric. Pupils equal round. Ears: Symmetric. Hearing within normal limits. Mouth: Clear. Neck: Supple. Carotid without bruit. Cardiac: Regular rate and rhythm. Sternotomy clean and dressed. Chest tube right posterior. Lungs: Clear anteriorly and posteriorly. Abdomen: Soft active nontender. Extremities: Normal tone. Neurological: Mental status: Alert, cooperative, pleasant. Cranial nerves: Symmetric facial tone and trapezius. Motor: Did observe active movement all 4 limbs. Sensation: Intact throughout. DTRs: Symmetric and equal throughout. Mobility: Patient currently sitting upright and receiving chest tube. Results CBC & Chem 7: 08/04/21 03:10 08/04/21 08:47 Labs: Abnormal Lab Results - Last 24 Hours (Table) 08/03/21 08/03/21 08/03/21 Range/Units 16:25 20:28 20:42 WBC (3.8-10.6) k/uL RBC (4.30-5.90) m/uL Hgb (13.0-17.5) gm/dL Hct (39.0-53.0) % RDW (11.5-15.5) % Plt Count (150-450) k/uL Neutrophils # (1.3-7.7) k/uL Lymphocytes # (1.0-4.8) k/uL Carbon Dioxide (22-30) mmol/L BUN (9-20) mg/dL Creatinine (0.66-1.25) mg/dL Glucose (74-99) mg/dL POC Glucose (mg/dL) 168 H 151 H 149 H (75-99) mg/dL Calcium (8.4-10.2) mg/dL Total Bilirubin (0.2-1.3) mg/dL AST (17-59) U/L Total Protein (6.3-8.2) g/dL Albumin (3.5-5.0) g/dL 08/04/21 08/04/21 08/04/21 Range/Units 03:10 03:10 07:01 WBC 12.4 H (3.8-10.6) k/uL RBC 2.50 L (4.30-5.90) m/uL Hgb 7.8 L (13.0-17.5) gm/dL Hct 24.8 L (39.0-53.0) % RDW 18.3 H (11.5-15.5) % Plt Count 134 L (150-450) k/uL Neutrophils # 10.1 H (1.3-7.7) k/uL Lymphocytes # 0.8 L (1.0-4.8) k/uL Carbon Dioxide 21 L (22-30) mmol/L BUN 76 H (9-20) mg/dL Creatinine 2.36 H (0.66-1.25) mg/dL Glucose 123 H (74-99) mg/dL POC Glucose (mg/dL) 134 H (75-99) mg/dL Calcium 7.9 L (8.4-10.2) mg/dL Total Bilirubin 1.5 H (0.2-1.3) mg/dL AST 62 H (17-59) U/L Total Protein 5.3 L (6.3-8.2) g/dL Albumin 2.9 L (3.5-5.0) g/dL 08/04/21 Range/Units 11:17 WBC (3.8-10.6) k/uL RBC (4.30-5.90) m/uL Hgb (13.0-17.5) gm/dL Hct (39.0-53.0) % RDW (11.5-15.5) % Plt Count (150-450) k/uL Neutrophils # (1.3-7.7) k/uL Lymphocytes # (1.0-4.8) k/uL Carbon Dioxide (22-30) mmol/L BUN (9-20) mg/dL Creatinine (0.66-1.25) mg/dL Glucose (74-99) mg/dL POC Glucose (mg/dL) 179 H (75-99) mg/dL Calcium (8.4-10.2) mg/dL Total Bilirubin (0.2-1.3) mg/dL AST (17-59) U/L Total Protein (6.3-8.2) g/dL Albumin (3.5-5.0) g/dL Microbiology - Last 24 Hours (Table) 08/03/21 10:50 Urine Culture - Final Urine,Clean Catch Assessment and Plan (1) Acute on chronic renal failure Current Visit: Yes Status: Acute Code(s): N17.9 - ACUTE KIDNEY FAILURE, UNSPECIFIED; N18.9 - CHRONIC KIDNEY DISEASE, UNSPECIFIED SNOMED Code(s): 842366051 (2) Status post mitral valve replacement Current Visit: Yes Status: Acute Code(s): Z95.2 - PRESENCE OF PROSTHETIC HEART VALVE SNOMED Code(s): 5372462717286 (3) Status post single vessel coronary artery bypass Current Visit: Yes Status: Acute Code(s): Z95.1 - PRESENCE OF AORTOCORONARY BYPASS GRAFT SNOMED Code(s): 172026789 (4) Acute exacerbation of chronic obstructive pulmonary disease Current Visit: No Status: Acute Code(s): J44.1 - CHRONIC OBSTRUCTIVE PULMONARY DISEASE W (ACUTE) EXACERBATION SNOMED Code(s): 606788581 (5) Acute pulmonary edema Current Visit: No Status: Acute Code(s): J81.0 - ACUTE PULMONARY EDEMA SNOMED Code(s): 24605446 Plan: Comments and plan: Patient underwent recent cardiac surgery and now with shortness of breath, pulmonary edema, ATN. Safety concerns anticipated in would anticipate endurance issues as well. Have discussed anticipated need and benefit of inpatient rehab. Encouraged patient to participate. I did not observe and OT note yet. Insurance will require PT and OT note and may have their own specific regulations with regard to these diagnosis.
--- NOTE | 2021-08-04 14:55 | P.PCN ---
Date of Procedure: 08/04/21 Preoperative Diagnosis: right pleural effusion Postoperative Diagnosis: same Procedure(s) Performed: u/s guide chest tube placement Anesthesia: local Estimated Blood Loss (ml): 5 Pathology: none sent Condition: stable Disposition: no change Operative Findings: 8.5 fr tube placed posteriorly, old tube removed, chest xray pending
--- NOTE | 2021-08-04 15:16 | US ---
EXAMINATION TYPE: US guided chest tube insertion, XR chest 1V portable DATE OF EXAM: 08/04/2021 COMPARISON: Chest x-ray 08/04/2021 HISTORY: Right Pleural effusion. FINDINGS: Maximal barrier technique was utilized. The skin overlying a suitable pocket of fluid in t he posterior right chest was localized and the overlying skin prepped and draped. Lidocaine was used for local anesthesia. Ultrasound was used with sterile technique. A 1 gauge needle was advanced int o the pleural fluid collection using ultrasound guidance and pleural fluid return in the hub of the n eedle. 0.018 inch wire was advanced and subsequently the access site was upsized with a transitional dilator, wire was upsized and dilation was performed, an 8.5 [place] catheter was advanced and fixed i n place following removal of the wire. Catheter attached to water seal. Sterile dressing was placed. There is no immediate complication. The patient remained in stable condition without complication. Post procedure chest x-ray shows the pleural drainage catheter at the posterior right lung base. Uppe r chest tube has been removed in the interval. There is some improvement in aeration and reduction in pleural fluid compared to prior chest x-ray same date. No evident pneumothorax or other significant interval change. IMPRESSION: STATUS POST ULTRASOUND GUIDED PLEURAL DRAINAGE TUBE CATHETER PLACEMENT, POST PROCEDURE EST X-RAY WITHOUT EVIDENT IMMEDIATE COMPLICATION. THIS PROCEDURE WAS PERFORMED BY THE UNDERSIGNED.
[2021-08-04 15:23] LABS: % Iron Saturation 15.1 (15.00-50.00)
[2021-08-04 16:35] LABS: Glucose,Whole Blood 196 mg/dL (75-99)
--- NOTE | 2021-08-04 20:02 | P.PN ---
Subjective Progress Note Date: 08/04/21 This is a 81-year-old male patient who is currently postop day 2 from mitral valve replacement, tricuspid valve repair and single-vessel bypass grafting SVG to obtuse marginal. Patient has a past medical history of valvular heart disease with symptoms including shortness of breath with exertion and unable to perform many of his activities of daily living. Additional medical history includes coronary artery disease with previous cardiac infarction and PCI, hypertension, chronic atrial fibrillation on Coumadin for and configuration status post cardioversion, sick sinus syndrome with [facility] permanent pacemaker placement 2016, chronic systolic heart failure, atrial septal defect status post closure with previous mitral clip in 2019 at [facility], chronic renal insufficiency, obstructive sleep apnea, reoccurring right-sided pleural effusions with previous thoracentesis 4. At this time patient is currently resting comfortably in the intensive care unit. Patient was successfully extubated per protocol currently on IV dopamine and Levophed. INR elevated at 6.5. hemoglobin 6.6. 1 unit PRBCs, 2 units of FFP have been ordered per surgical services INR recheck ordered for noon. Chest x-ray the same showing cardiomegaly with moderate to large right and small sized bilateral pleural effusion collection and/or effusions with mild to moderate central vascular congestion and bibasilar opacities favoring atelectasis along with left-sided chest tubes are redemonstrated. Per surgical services possible plans for Pleurx catheter placement. This time patient is resting comfortably in chair patient remains on high flow oxygen. Blood sugars have remained stable per nursing staff will transition off insulin drip to sliding scale coverage. Cardiology and critical care services are following. On 07/31/2021 patient having intermittent episodes of confusion. INR improving to 2.3. Hemoglobin 7.6. Chest tubes remain in place. Cardiology and critical care services are following. Patient remains on high flow nasal cannula. Current vitals heart rate 80, respiratory rate 16, blood pressure 104/51 On 08/01/2021 patient is more alert currently resting comfortably in chair. Sitter is at bedside. Patient remains on high flow nasal cannula. Patient remains on IV Bumex. Cordis, chest tube and right pigtail catheter all remain in place. On 08/02/2021 patient was seen and examined in the ICU he is alert and oriented 3 in no apparent distress, sitting up in a chair, he is maintained on high flow oxygen, with FiO2 of 45, pulse ox is 93% temperature 97.2 pulse 80 respiration 22 blood pressure 129/46, he denies any fever or chills no headache or dizziness no chest pain no shortness of breath no cough no nausea no vomiting no abdominal pain no diarrhea and no urinary symptoms, chest tube is still in place, he is maintained on Bumex 2 mg IV every 8 hours On 08/03/2021 patient remains in the intensive care unit. Patient is alert and oriented sitting comfortably in chair. Discussed case with surgical team Bumex has been DC'd. Creatinine 2.25 bun 70. Chest tube remains in place. Patient remains on high flow 60%. This time patient denies chest pain or shortness [place] th. Patient denies diarrhea. Patient denies any urinary burning or frequency On 08/04/2021 patient was seen and examined, in the ICU, he is alert and oriented 3 in no apparent distress, there is no fever or chills no headache or dizziness no chest pain no shortness of breath no cough no nausea or vomiting no abdominal pain no diarrhea and no urinary symptoms he still has a left sided chest to and he is complaining of discomfort at the site of the 2 he is maintained on oxygen at 8 L nasal cannula his pulse ox is 96% blood pressure 126/62 pulse 63 respiration 24 temperature 97.9 Objective - Vital Signs Vital signs: Vital Signs Temp 97.9 F 08/04/21 12:00 Pulse 63 08/04/21 12:26 Resp 24 08/04/21 12:00 BP 126/62 08/04/21 12:00 Pulse Ox 96 08/04/21 12:00 Intake & Output 08/03/21 08/04/21 08/04/21 18:59 06:59 18:59 Intake Total 0 240 680 Output Total 845 890 101 Balance -845 -650 579 Weight 74.3 kg 74.3 kg Intake: IV 0 0 Pressure Bags 0 0 Oral 240 680 Output: Chest Tube Drainage 245 L pleural 235 Right Posterior Chest 10 Drainage [address] 490 Urine 600 400 100 Stool 1 Other: Voiding Method Indwelling Catheter Indwelling Catheter Indwelling Catheter # Bowel Movements 1 ABP, PAP, CO, CI - Last Documented Arterial Blood Pressure 119/35 Pulmonary Artery Pressure 35/28 Cardiac Output 5 Cardiac Index 2.7 - Exam In general patient is alert and oriented x 3 in no distress HEENT head normocephalic and atraumatic Neck is supple no JVD no goiter no lymphadenopathy no carotid bruit Chest examination reveals a scattered crackles in both lung sousa no wheezing Cardiac exam reveals regular heart sounds S1 and S2 no gallops no murmurs Abdomen is soft nontender no organomegaly with normal bowel sounds Extremity exam reveals no edema no cyanosis or clubbing Neurological examination reveals no gross focal deficits - Labs CBC & Chem 7: 08/04/21 03:10 08/04/21 08:47 Labs: Abnormal Lab Results - Last 24 Hours (Table) 08/03/21 08/03/21 08/03/21 Range/Units 16:25 20:28 20:42 WBC (3.8-10.6) k/uL RBC (4.30-5.90) m/uL Hgb (13.0-17.5) gm/dL Hct (39.0-53.0) % RDW (11.5-15.5) % Plt Count (150-450) k/uL Neutrophils # (1.3-7.7) k/uL Lymphocytes # (1.0-4.8) k/uL Carbon Dioxide (22-30) mmol/L BUN (9-20) mg/dL Creatinine (0.66-1.25) mg/dL Glucose (74-99) mg/dL POC Glucose (mg/dL) 168 H 151 H 149 H (75-99) mg/dL Calcium (8.4-10.2) mg/dL Total Bilirubin (0.2-1.3) mg/dL AST (17-59) U/L Total Protein (6.3-8.2) g/dL Albumin (3.5-5.0) g/dL 08/04/21 08/04/21 08/04/21 Range/Units 03:10 03:10 07:01 WBC 12.4 H (3.8-10.6) k/uL RBC 2.50 L (4.30-5.90) m/uL Hgb 7.8 L (13.0-17.5) gm/dL Hct 24.8 L (39.0-53.0) % RDW 18.3 H (11.5-15.5) % Plt Count 134 L (150-450) k/uL Neutrophils # 10.1 H (1.3-7.7) k/uL Lymphocytes # 0.8 L (1.0-4.8) k/uL Carbon Dioxide 21 L (22-30) mmol/L BUN 76 H (9-20) mg/dL Creatinine 2.36 H (0.66-1.25) mg/dL Glucose 123 H (74-99) mg/dL POC Glucose (mg/dL) 134 H (75-99) mg/dL Calcium 7.9 L (8.4-10.2) mg/dL Total Bilirubin 1.5 H (0.2-1.3) mg/dL AST 62 H (17-59) U/L Total Protein 5.3 L (6.3-8.2) g/dL Albumin 2.9 L (3.5-5.0) g/dL 08/04/21 Range/Units 11:17 WBC (3.8-10.6) k/uL RBC (4.30-5.90) m/uL Hgb (13.0-17.5) gm/dL Hct (39.0-53.0) % RDW (11.5-15.5) % Plt Count (150-450) k/uL Neutrophils # (1.3-7.7) k/uL Lymphocytes # (1.0-4.8) k/uL Carbon Dioxide (22-30) mmol/L BUN (9-20) mg/dL Creatinine (0.66-1.25) mg/dL Glucose (74-99) mg/dL POC Glucose (mg/dL) 179 H (75-99) mg/dL Calcium (8.4-10.2) mg/dL Total Bilirubin (0.2-1.3) mg/dL AST (17-59) U/L Total Protein (6.3-8.2) g/dL Albumin (3.5-5.0) g/dL Microbiology - Last 24 Hours (Table) 08/03/21 10:50 Urine Culture - Final Urine,Clean Catch Assessment and Plan Assessment: 1. Status post mitral valve replacement, tricuspid valve repair and single- vessel bypass grafting. Postop day 4 2. Right-sided pleural effusion 3. Coagulopathy. Resolved 4. History of congestive heart failure 5. History of valvular heart disease with previous mitral valve repair with a mitral clip at [facility] 6. History of coronary artery disease 7. History of hyperlipidemia 8. History of renal insufficiency 9. Previous history of atrial fibrillation Thank you for this consultation we will continue to follow patient closely throughout stay Patient remains in the intensive care unit Repeat labs ordered Patient to be transitioned off IV insulin to sliding scale coverage. A1c 5.8
[2021-08-04 20:40] LABS: Glucose,Whole Blood 182 mg/dL (75-99)
[2021-08-04] MEDS: CALCIUM ACETATE 667 MG TAB PO SCH (20:44)
[2021-08-04] MEDS: ATORVASTATIN 40 MG TAB PO SCH (20:44)
[2021-08-05 06:48] LABS: Glucose,Whole Blood 137 mg/dL (75-99)
[2021-08-05] MEDS: INSULIN ASPART (NovoLOG) 100 UNIT/ML VIAL SQ SCH ×4 (06:50→20:47)
[2021-08-05] MEDS: PANTOPRAZOLE 40 MG TABLET PO SCH (06:50)
[2021-08-05 07:00] LABS: Anisocytosis Slight; HCT 25.9 % (39.0-53.0); Hypochromasia Moderate; MCHC 31.1 g/dL (31.0-37.0); MCV 99.8 fL (80.0-100.0); Macrocytosis Slight; Mean Platelet Volume 8.4; Platelet Count 192 k/uL (150-450); Poikilocytosis Slight; RBC 2.59 m/uL (4.30-5.90); RDW 18.9 % (11.5-15.5)
[2021-08-05 07:01] LABS: INR 1.2 (<1.2); Prothrombin Time 12.9 sec (9.0-12.0)
--- NOTE | 2021-08-05 07:05 | XR ---
EXAMINATION TYPE: XR chest 1V portable DATE OF EXAM: 08/05/2021 COMPARISON: 08/04/2021 HISTORY: Shortness of breath TECHNIQUE: Single frontal view of the chest is obtained. FINDINGS: A left-sided chest tube is seen with subsegmental consolidation. Less than 5% left apical pneumothorax. Right-sided pleural effusion and consolidation stable. Cardiomegaly, cardiac device and postoperative change stable. IMPRESSION: 1. Left-sided chest tube with less than 5% left apical pneumothorax. 2. Right-sided consolidation and pleural effusion stable.
[2021-08-05 07:08] LABS: Albumin 2.9 g/dL (3.5-5.0); Calcium 7.9 mg/dL (8.4-10.2); Potassium 3.9 mmol/L (3.5-5.1); Total Bilirubin 1.7 mg/dL (0.2-1.3); Total Protein 5.6 g/dL (6.3-8.2)
[2021-08-05] MEDS ORDERED: POTASSIUM CHLORIDE ER 20 MEQ TAB.ER PO STA (07:30)
[2021-08-05 07:48] LABS: Band Neutrophils % 1 %; Eosinophils # (M) 0.29 k/uL (0-0.7); Lymphocytes # (M) 0.29 k/uL (1.0-4.8); Neutrophils % (M) 90 %; Nucleated Red Blood Cells 1 /100 WBC (0-0); Total Cells Counted 200
[2021-08-05 07:49] LABS: Monocytes # (M) 1.01 k/uL (0-1.0); WBC 14.4 k/uL (3.8-10.6)
[2021-08-05 07:50] LABS: Polychromasia Present
[2021-08-05] MEDS: FERROUS SULFATE 325 MG TAB PO SCH (08:11)
[2021-08-05] MEDS: bisacodyL 10 MG SUPP RECTAL PRN (08:11)
[2021-08-05] MEDS: HEPARIN SODIUM,PORCINE/PF 5,000 UNIT/0.5 ML SYRINGE SQ SCH ×3 (08:11→23:04)
[2021-08-05] MEDS: guaiFENesin 600 MG TABLET.ER PO SCH (08:12)
[2021-08-05] MEDS: ASPIRIN 81 MG PO SCH (08:12)
[2021-08-05] MEDS: allopurinoL 100 MG TAB PO SCH (08:12)
[2021-08-05] MEDS: MUPIROCIN 2% OINT 22 GM TUBE NASAL SCH ×2 (08:12→20:47)
[2021-08-05] MEDS: FOLIC ACID 1 MG TAB PO SCH (08:12)
[2021-08-05] MEDS: ASCORBIC ACID 500 MG TAB PO SCH (08:12)
--- NOTE | 2021-08-05 09:23 | P.PN ---
Subjective Progress Note Date: 08/05/21 Principal diagnosis: Mitral valve regurgitation, tricuspid valve regurgitation, and coronary artery disease. Past medical history significant for coronary artery disease with prev ious myocardial infarction and PCI, hypertension, hyperlipidemia, chronic persistent atrial fibrillation on Coumadin for anticoagulation as an outpatient, status post cardioversion, sick sinus syndrome, status post [facility] permanent pacemaker placement in 2017, chronic systolic heart failure, atrial septal defect status post closure, history of MitraClip in 2019, chronic renal insufficiency, remote history of tobacco dependence, restrictive lung disease, obstructive sleep apnea, recurrent right pleural effusions with history of 4 previous thoracentesis, remote history of pneumonia, and a family history of premature coronary artery disease. Preoperative nasal screening positive for MSSA, treated. POD #7 mitral valve replacement with 31 mm Mosaic porcine valve prosthesis, tricuspid valve repair with 30 mm MC3 band, coronary artery bypass grafting 1 with reverse greater saphenous vein graft to the obtuse marginal coronary artery, endovascular vein harvest of the left greater saphenous vein, epi-aortic ultrasound, closure of the left atrial appendage, closure of atrial septal defect. Postoperative acute blood loss anemia and thrombocytopenia, expected given hemodilution and cardiopulmonary bypass pump. Coagulopathy, unexpected, last coumadin dose was on 07/22/21. Right pleural effusion, expected due to his history of preoperative right pleural effusion with history of 4 previous thoracentesis. Status post placement of right-sided pigtail catheter by interventional radiology. The patient was seen in follow-up today 08/05/2021 at his bedside in the intensive care unit. Currently the patient is sitting up to the bedside chair, is awake, alert, oriented 3 and is in no acute apparent distress. Denies any complaints of pain or shortness of breath at this time. The patient is complaining of a sore mouth this morning and is reporting that he is having trouble eating due to his sore mouth. No obvious thrush or sores in his mouth were seen. Oxygen saturations are 95% on 3 L nasal cannula and he is achieving 1000 mL on his incentive spirometry with encouragement. The patient's right chest pigtail catheter was removed yesterday and a new right chest pigtail cath eter was placed by interventional radiology. No air leak is present. Draining thin serosanguineous drainage with 630 mL output in the last 8 hours and 1650 mL output in the last 24 hours. Left pleural chest tube remains in place to low continuous wall suction -20 cm H2O. No air leak is present. 200 mL output of thin serosanguineous drainage in the last 8 hours and 600 mL output in the last 24 hours. The patient continues to void with 150 mL of urine output in the last 8 hours, although the night nurse reports that he did urinate when up on the commode with a bowel movement which the urine could not be measured. A bladder scan was completed this morning which showed 90 mL of postvoid residual. Laboratory results this morning show a WBC count of 14.5, hemoglobin 8.0, hematocrit 25.9, platelets 192, sodium 139, potassium 3.9, BUN 85 and creatinine 2.20. Chest x-ray was reviewed. He has been afebrile the last 24 hours. He reports he ambulated in the intensive care unit hallway 2 yesterday with assistance from nursing and physical therapy staff. The patient was seen and evaluated yesterday by Dr. Petit for possible inpatient rehab upon discharge. Nephrology is following him for his chronic kidney disease. Ventricular epicardial pacemaker wires removed yesterday without incident. Objective - Vital Signs Vital signs: Vital Signs Temp 98 F 08/05/21 08:00 Pulse 67 08/05/21 08:00 Resp 28 H 08/05/21 08:00 BP 123/71 08/05/21 08:00 Pulse Ox 98 08/05/21 08:00 Intake & Output 08/04/21 08/05/21 08/05/21 18:59 06:59 18:59 Intake Total 920 300 Output Total 1561 1170 50 Balance -641 -870 -50 Weight 74.3 kg 75.5 kg Intake: IV 0 Pressure Bags 0 Oral 920 300 Output: Chest Tube Drainage 1260 970 L pleural 340 270 Right Posterior Chest 920 700 Urine 300 200 50 Stool 1 Other: Voiding Method Indwelling Catheter Urinal Urinal # Voids 1 1 ABP, PAP, CO, CI - Last Documented Arterial Blood Pressure 119/35 Pulmonary Artery Pressure 35/28 Cardiac Output 5 Cardiac Index 2.7 - Exam CONSTITUTIONAL: Sitting up to the bedside chair in the intensive care unit, appears comfortable, cooperative, and is in no apparent acute distress. HEENT: Neck is supple, no JVD, no lymphadenopathy. RESPIRATORY: Lungs sounds essentially clear throughout, diminished to his bilateral basest. Respirations are symmetrical and nonlabored. Currently on 3 L nasal cannula, oxygen saturations 95%. Able to achieve 1000 mL on his incentive spirometry. Strong cough. CARDIOVASCULAR: Regular rhythm and rate. S1 and S2 present, negative for S3, gallop or murmur. Sternum is stable. Palpable peripheral pulses bilaterally. No calf pain or tenderness noted. Heart hugger in place with patient demonstrating appropriate use with encouragement. Knee-high SUMI hose and sequential compression devices in place to his bilateral lower extremities. Bedside telemetry showing paced rhythm at 60 BPM. GASTROINTESTINAL: Abdomen soft, nontender, and distended. Active bowel sounds present 4 quadrants. Tolerating diet. No guarding or rigidity. GENITOURINARY: Continues to void. Urine output 150 mL in the last 8 hours and also urinated well up on the bedside commode with stool. INTEGUMENTARY: Skin is warm and dry with no evidence of clubbing or cyanosis. Midline sternal incision clean dry and well approximated, covered with dry intact dressing. Left lower extremity EVH site well approximated without redness or drainage. NEUROLOGIC: Cranial nerves II through XII intact. No focal deficits. MUSKULOSKELETAL: Able to move all extremities, strength equal bilaterally, generalized weakness. PSYCHIATRIC: Alert and oriented 3, appropriate affect. INVASIVE LINES AND TUBES: Right pleural pigtail catheter is in place to low continuous wall suction at -20 cm H2O. No air leak is present. Draining thin serosanguineous drainage with 630 mL output in the last 8 hours and 1650 mL output in the last 24 hours. Left pleural chest tube in place to low continuous wall suction -20 cm H2O. No air leak is present. Draining thin serosanguineous drainage with 200 mL output in the last 8 hours and 600 mL output in the last 24 hours. - Allied health notes Allied health notes reviewed: nursing - Labs CBC & Chem 7: 08/05/21 06:24 08/05/21 06:24 Labs: Abnormal Lab Results - Last 24 Hours (Table) 08/04/21 08/04/21 08/04/21 Range/Units 08:47 11:17 16:33 WBC (3.8-10.6) k/uL RBC (4.30-5.90) m/uL Hgb (13.0-17.5) gm/dL Hct (39.0-53.0) % RDW (11.5-15.5) % Neutrophils # (Manual) (1.3-7.7) k/uL Lymphocytes # (Manual) (1.0-4.8) k/uL Monocytes # (Manual) (0-1.0) k/uL Nucleated RBCs (0-0) /100 WBC PT (9.0-12.0) sec INR (<1.2) BUN (9-20) mg/dL Creatinine (0.66-1.25) mg/dL Glucose (74-99) mg/dL POC Glucose (mg/dL) 179 H 196 H (75-99) mg/dL Calcium (8.4-10.2) mg/dL Iron 30 L (65-175) ug/dL TIBC 196 L (228-460) ug/dL Transferrin 140.0 L (204.0-354.0) mg/dL Total Bilirubin (0.2-1.3) mg/dL Total Protein (6.3-8.2) g/dL Albumin (3.5-5.0) g/dL 08/04/21 08/05/21 08/05/21 Range/Units 20:39 06:24 06:24 WBC 14.4 H (3.8-10.6) k/uL RBC 2.59 L (4.30-5.90) m/uL Hgb 8.0 L (13.0-17.5) gm/dL Hct 25.9 L (39.0-53.0) % RDW 18.9 H (11.5-15.5) % Neutrophils # (Manual) 13.10 H (1.3-7.7) k/uL Lymphocytes # (Manual) 0.29 L (1.0-4.8) k/uL Monocytes # (Manual) 1.01 H (0-1.0) k/uL Nucleated RBCs 1 H (0-0) /100 WBC PT 12.9 H (9.0-12.0) sec INR 1.2 H (<1.2) BUN (9-20) mg/dL Creatinine (0.66-1.25) mg/dL Glucose (74-99) mg/dL POC Glucose (mg/dL) 182 H (75-99) mg/dL Calcium (8.4-10.2) mg/dL Iron (65-175) ug/dL TIBC (228-460) ug/dL Transferrin (204.0-354.0) mg/dL Total Bilirubin (0.2-1.3) mg/dL Total Protein (6.3-8.2) g/dL Albumin (3.5-5.0) g/dL 08/05/21 08/05/21 Range/Units 06:24 06:47 WBC (3.8-10.6) k/uL RBC (4.30-5.90) m/uL Hgb (13.0-17.5) gm/dL Hct (39.0-53.0) % RDW (11.5-15.5) % Neutrophils # (Manual) (1.3-7.7) k/uL Lymphocytes # (Manual) (1.0-4.8) k/uL Monocytes # (Manual) (0-1.0) k/uL Nucleated RBCs (0-0) /100 WBC PT (9.0-12.0) sec INR (<1.2) BUN 85 H (9-20) mg/dL Creatinine 2.20 H (0.66-1.25) mg/dL Glucose 131 H (74-99) mg/dL POC Glucose (mg/dL) 137 H (75-99) mg/dL Calcium 7.9 L (8.4-10.2) mg/dL Iron (65-175) ug/dL TIBC (228-460) ug/dL Transferrin (204.0-354.0) mg/dL Total Bilirubin 1.7 H (0.2-1.3) mg/dL Total Protein 5.6 L (6.3-8.2) g/dL Albumin 2.9 L (3.5-5.0) g/dL Microbiology - Last 24 Hours (Table) 08/03/21 10:50 Urine Culture - Final Urine,Clean Catch - Imaging and Cardiology Chest x-ray: report reviewed, image reviewed Assessment and Plan Assessment: 1. Mitral valve regurgitation, history of MitraClip in 2019, status post post mitral valve replacement 2. Tricuspid valve regurgitation, status post tricuspid valve repair 3. Coronary artery disease with previous myocardial infarction and PCI, status post 1 vessel CABG 4. History of hypertension, currently hypotensive on levo and dopamine 5. Chronic atrial fibrillation on Coumadin for anticoagulation status post cardioversion, status post closure of the left atrial appendage 6. Sick sinus syndrome status post [facility] permanent pacemaker placement in 2017 7. Chronic systolic heart failure 8. Atrial septal defect status post closure 9. Chronic kidney disease stage IIIB with a baseline creatinine of 1.6-1.7 10. Previous tobacco dependence 11. Severe restrictive lung disease, preoperative FEV1 47% of predicted 12. Recurrent right-sided pleural effusion, patient had right sided thoracentesis twice in 2019 and twice in 2020, status post right chest pigtail catheter placement by interventional radiology 13. Obstructive sleep apnea 14. Remote history of pneumonia 15. Family history of premature coronary artery disease 16. Postoperative acute blood loss anemia and thrombocytopenia, expected 17. Coagulopathy, resolved Plan: 1. Continue low-dose aspirin, heparin subcu, and statin. Will continue to hold Plavix and beta shila for now, we will restart when able. We will restart anticoagulation when able. 2. Nephrology consult noted and appreciated. Dr. Petit's consult noted and appreciated. 3. Wean O2 as tolerated. Encourage incentive spirometry use 10 times every hour while awake. Bronchodilators per pulmonology. 4. Increase activity as tolerated. PT/OT/cardiac rehab following. 5. Will monitor daily labs and chest x-rays. 6. GI/DVT prophylaxis. 7. Insulin management per primary care service. Patient is not diabetic, preoperative hemoglobin A1c 5.8% 8. Pain control current medication regimen. 9. Continue left pleural chest tube and right pleural pigtail catheter to low continuous wall suction -20 cm of H2O. Continue to record strict accurate I's and O's. 10. Continue to record strict accurate intake and output. Daily weights. Bladder scan every 6 hours and when necessary. If greater than 300 mL of urine may straight cath. 11. Encourage nutrition along with nutritional supplements. 12. Dulcolax suppository 1 this a.m. 13. The patient was started on Aransep yesterday per nephrology's recommendations. Continue ferrous sulfate and vitamin C. 14. More recommendations to follow based on patient's clinical course. Time with Patient: Greater than 30
[2021-08-05] MEDS: IPRATROPIUM-ALBUTEROL 3 ML NEB INHALATION SCH ×4 (09:51→19:12)
--- NOTE | 2021-08-05 11:26 | P.PN ---
Subjective Progress Note Date: 08/05/21 This is a 81-year-old female who had mitral valve replacement, tricuspid valve repair in 1 vessel bypass surgery on 328 along with closure of ASD. Patient had mitral valve. In the past for mitral insufficiency. Patient seemed to be relatively stable. He has bilateral pleural chest tube and also pigtail catheters. Denies any significant chest pain or shortness of breath. He seemed to be in paced rhythm. Doesn't appear to be in acute distress. His creatinine is going up. Patient has history of chronic renal failure. Nephrology is consulted. We'll continue current medical therapy. Increase activity as tolerated. Further recommendations depend upon the clinical course. no acute cardiac arrhythmias. 08/05/2021: This patient had replacement of right pleural tube yesterday by radiologist. Still has a left pleural tube for pneumothorax. Patient is complaining of fatigue and tiredness. Complaints of some chest pain. His creatinine has shown some improvement. He is off diuretics. Patient has a pacemaker rhythm with underlying atrial fibrillation. There is a plan to restart Coumadin soon. Otherwise patient is making slow but steady progress. We'll continue rest of the management along with inspiratory spirometry Objective - Vital Signs Vital signs: Vital Signs Temp 98 F 08/05/21 08:00 Pulse 64 08/05/21 09:00 Resp 23 08/05/21 09:00 BP 123/71 08/05/21 09:00 Pulse Ox 94 L 08/05/21 09:00 Intake & Output 08/04/21 08/05/21 08/05/21 18:59 06:59 18:59 Intake Total 920 300 Output Total 1561 1170 250 Balance -641 -870 -250 Weight 74.3 kg 75.5 kg Intake: IV 0 Pressure Bags 0 Oral 920 300 Output: Chest Tube Drainage 1260 970 L pleural 340 270 Right Posterior Chest 920 700 Urine 300 200 250 Stool 1 Other: Voiding Method Indwelling Catheter Urinal Urinal # Voids 1 1 ABP, PAP, CO, CI - Last Documented Arterial Blood Pressure 119/35 Pulmonary Artery Pressure 35/28 Cardiac Output 5 Cardiac Index 2.7 - Exam GENERAL EXAM: Patient is alert and oriented and doesn't appear to be in any acute distress HEENT: Normocephalic. Normal reaction of pupils, equal size, normal range of extraocular motion. No erythema or exudates in the throat. NECK: No masses, no nuchal rigidity. CHEST: Postsurgical with the chest tubes and catheters LUNGS: Diminished air entry HEART: S1 and S2 normal with no audible mumurs or gallops. Regular rhythm, femorals equal on both sides.. ABDOMEN: No hepatosplenomegaly, normal bowel sounds, no guarding or rigidity. SKIN: No rashes CENTRAL NERVOUS SYSTEM: No focal deficits. EXTREMITIES: No cyanosis, clubbing or edema. - Labs CBC & Chem 7: 08/05/21 06:24 08/05/21 06:24 Labs: Abnormal Lab Results - Last 24 Hours (Table) 08/04/21 08/04/21 08/04/21 Range/Units 08:47 16:33 20:39 WBC (3.8-10.6) k/uL RBC (4.30-5.90) m/uL Hgb (13.0-17.5) gm/dL Hct (39.0-53.0) % RDW (11.5-15.5) % Neutrophils # (Manual) (1.3-7.7) k/uL Lymphocytes # (Manual) (1.0-4.8) k/uL Monocytes # (Manual) (0-1.0) k/uL Nucleated RBCs (0-0) /100 WBC PT (9.0-12.0) sec INR (<1.2) BUN (9-20) mg/dL Creatinine (0.66-1.25) mg/dL Glucose (74-99) mg/dL POC Glucose (mg/dL) 196 H 182 H (75-99) mg/dL Calcium (8.4-10.2) mg/dL Iron 30 L (65-175) ug/dL TIBC 196 L (228-460) ug/dL Transferrin 140.0 L (204.0-354.0) mg/dL Total Bilirubin (0.2-1.3) mg/dL Total Protein (6.3-8.2) g/dL Albumin (3.5-5.0) g/dL 08/05/21 08/05/21 08/05/21 Range/Units 06:24 06:24 06:24 WBC 14.4 H (3.8-10.6) k/uL RBC 2.59 L (4.30-5.90) m/uL Hgb 8.0 L (13.0-17.5) gm/dL Hct 25.9 L (39.0-53.0) % RDW 18.9 H (11.5-15.5) % Neutrophils # (Manual) 13.10 H (1.3-7.7) k/uL Lymphocytes # (Manual) 0.29 L (1.0-4.8) k/uL Monocytes # (Manual) 1.01 H (0-1.0) k/uL Nucleated RBCs 1 H (0-0) /100 WBC PT 12.9 H (9.0-12.0) sec INR 1.2 H (<1.2) BUN 85 H (9-20) mg/dL Creatinine 2.20 H (0.66-1.25) mg/dL Glucose 131 H (74-99) mg/dL POC Glucose (mg/dL) (75-99) mg/dL Calcium 7.9 L (8.4-10.2) mg/dL Iron (65-175) ug/dL TIBC (228-460) ug/dL Transferrin (204.0-354.0) mg/dL Total Bilirubin 1.7 H (0.2-1.3) mg/dL Total Protein 5.6 L (6.3-8.2) g/dL Albumin 2.9 L (3.5-5.0) g/dL 08/05/21 Range/Units 06:47 WBC (3.8-10.6) k/uL RBC (4.30-5.90) m/uL Hgb (13.0-17.5) gm/dL Hct (39.0-53.0) % RDW (11.5-15.5) % Neutrophils # (Manual) (1.3-7.7) k/uL Lymphocytes # (Manual) (1.0-4.8) k/uL Monocytes # (Manual) (0-1.0) k/uL Nucleated RBCs (0-0) /100 WBC PT (9.0-12.0) sec INR (<1.2) BUN (9-20) mg/dL Creatinine (0.66-1.25) mg/dL Glucose (74-99) mg/dL POC Glucose (mg/dL) 137 H (75-99) mg/dL Calcium (8.4-10.2) mg/dL Iron (65-175) ug/dL TIBC (228-460) ug/dL Transferrin (204.0-354.0) mg/dL Total Bilirubin (0.2-1.3) mg/dL Total Protein (6.3-8.2) g/dL Albumin (3.5-5.0) g/dL Microbiology - Last 24 Hours (Table) 08/03/21 10:50 Urine Culture - Final Urine,Clean Catch Assessment and Plan (1) Status post mitral valve replacement Current Visit: Yes Status: Acute Code(s): Z95.2 - PRESENCE OF PROSTHETIC HEART VALVE SNOMED Code(s): 8934114679833 (2) Status post single vessel coronary artery bypass Current Visit: Yes Status: Acute Code(s): Z95.1 - PRESENCE OF AORTOCORONARY BYPASS GRAFT SNOMED Code(s): 481189030 (3) Pleural effusion Current Visit: No Status: Acute Code(s): J90 - PLEURAL EFFUSION, NOT ELSE WHERE CLASSIFIED SNOMED Code(s): 00223711 (4) Acute on chronic renal failure Current Visit: Yes Status: Acute Code(s): N17.9 - ACUTE KIDNEY FAILURE, UNSPECIFIED; N18.9 - CHRONIC KIDNEY DISEASE, UNSPECIFIED SNOMED Code(s): 146931484 (5) Chronic a-fib Current Visit: No Status: Acute Code(s): I48.2 - CHRONIC ATRIAL FIBRILLATION * DO NOT USE * SNOMED Code(s): 545598347 (6) Presence of permanent cardiac pacemaker Current Visit: Yes Status: Acute Code(s): Z95.0 - PRESENCE OF CARDIAC PACEMAKER SNOMED Code(s): 309243479 Plan: Continue to hold diuretics. Creatinine has shown improvement. Continue rest of the management. May restart Coumadin
--- NOTE | 2021-08-05 12:14 | P.PN ---
Subjective Progress Note Date: 08/05/21 This is a very pleasant 81-year-old male patient is being seen in follow-up. The patient is postop day #7. 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 Note that the patient had a preoperative right-sided pleural effusion along with various other medical problems and comorbidities. Postop, the patient becomes hypoxic and short of breath post extubation. He was on high flow oxygen. The right-sided pleural effusion was noted and at that point a pigtail catheter was inserted into the right hemithorax. The catheter was inserted and the patient was having adequate drainage for the past 48 hours and since yesterday, there has been no output. The patient continues to have a left-sided chest tube and output has been around 400 mL over the past 8-12 hours. The patient is using incentive spirometer. The patient is currently on 8 L of oxygen by nasal cannula with a pulse oximetry 96%. The patient is pulling approximately 1000 on his incentive spirometer. His cardiac rhythm is basically rate of 60. The patient is hemodynamically stable and the patient is on no pressors at this point in time. He doesn't component of chronic kidney disease. The BUN is at 76 with a creatinine of 2.36. Potassium level is at 3.7 with a sodium level of 137. Hemoglobin is at 7.8 with a platelet count 234. A repeat chest x-ray was done and it showed cardiomegaly, a loculated right-sided pleural effusion, impacted on the right, and a chest tube on the left and post thoracotomy changes in the mid sternal area. The patient has chronic kidney disease, obstructive sleep apnea, he has undergone previous thoracenteses regarding the right-sided pleural effusion and pleural fluid cytology has been essentially negative for malignancy. He is awake and alert and following commands and answering questions appropriately. On today's evaluation of 08/04/2021, I'm seeing the patient in the follow-up. The patient is postop day #8. Noted the patient continues to have drainage from the chest tube. The chest tube on the left has drained approximately 600 mL total since 24 hours and 200 mL over the past 8 hours. Note that the patient also has a new pigtail catheter inserted by interventional radiology and immediately after insertion, a total of 900 mL of fluid was aspirated and the patient has put out another 600 mL over the past 8 hours. As such, the output remains considerably high. Meanwhile, the chest x-ray from today showing improvement in the volume status and improvement in the right-sided pleural effusion. No localization at this point in time. Pigtail catheter is in a good location. The patient remains on 3 L of O2 nasal cannula. White cell count is 14.5 with hemoglobin 8.2 and a platelet count of 192. Sodium is at 139 with a potassium level of 3.9 and a BUN of 85 with a creatinine of 2.2 and the creatinine is stable for now. Patient continues to use incentive spirometer. The patient has a pacemaker in place and the cardiac rhythmat this point in time. Sternal wound is dry clean and intact. The patient is afebrile. The patient is hemodynamically stable at this point in time. No nausea. No vomiting. Abdomen is slightly distended and the patient may have some partial ileus. Nevertheless, his passing gas and he is also having regular bowel movements. Objective - Vital Signs Vital signs: Vital Signs Temp 98 F 08/05/21 08:00 Pulse 65 08/05/21 11:57 Resp 30 H 08/05/21 11:49 BP 136/66 08/05/21 11:49 Pulse Ox 98 08/05/21 11:49 Intake & Output 08/04/21 08/05/21 08/05/21 18:59 06:59 18:59 Intake Total 920 300 0 Output Total 1561 1170 250 Balance -641 -870 -250 Weight 74.3 kg 75.5 kg Intake: IV 0 0 Pressure Bags 0 0 Oral 920 300 Output: Chest Tube Drainage 1260 970 L pleural 340 270 Right Posterior Chest 920 700 Urine 300 200 250 Stool 1 Other: Voiding Method Indwelling Catheter Urinal Urinal # Voids 1 1 1 ABP, PAP, CO, CI - Last Documented Arterial Blood Pressure 119/35 Pulmonary Artery Pressure 35/28 Cardiac Output 5 Cardiac Index 2.7 - Exam CONSTITUTIONAL: Sitting up to the bedside chair in the intensive care unit, appears comfortable, cooperative, and is in no apparent acute distress. HEENT: Neck is supple, no JVD, no lymphadenopathy. RESPIRATORY: Lungs sounds essentially clear throughout, diminished to his bilateral bases, right greater than left. Scattered wheezes and rhonchi. Respirations are symmetrical and nonlabored. Currently on 8 L high flow nasal cannula, oxygen saturations 96%. Able to achieve 1000 mL on his incentive spirometry. Strong cough. CARDIOVASCULAR: Regular rhythm and rate. S1 and S2 present, negative for S3, gallop or murmur. Sternum is stable. Palpable peripheral pulses bilaterally. No calf pain or tenderness noted. Heart hugger in place with patient demonstrating appropriate use with encouragement. Knee-high SUMI hose and sequential compression devices in place to his bilateral lower extremities. Bedside telemetry showing paced rhythm at 60 BPM. GASTROINTESTINAL: Abdomen soft, nontender, distended. Active bowel sounds present 4 quadrants. Tolerating diet. No guarding or rigidity. Bowel movement 2 in the last 24 hours. The abdomen is slightly distended and tympanic at this point in time. GENITOURINARY: Continues to void. Urine output 300 mL in the last 8 hours. INTEGUMENTARY: Skin is warm and dry with no evidence of clubbing or cyanosis. Midline sternal incision clean dry and well approximated, covered with dry intact dressing. Left lower extremity EVH site well approximated without redness or drainage. NEUROLOGIC: Cranial nerves II through XII intact. No focal deficits. MUSKULOSKELETAL: Able to move all extremities, strength equal bilaterally, generalized weakness. PSYCHIATRIC: Alert and oriented 3, appropriate affect. INVASIVE LINES AND TUBES: Right pleural pigtail catheter in and is plugged. Left pleural chest tube in place to low continuous wall suction -20 cm H2O. No air leak is present. Draining thin serosanguineous drainage with 240 mL output in the last 8 hours and 400 mL output in the last 24 hours. Ventricular epicardial pacemaker wires in place and are grounded. - Labs CBC & Chem 7: 08/05/21 06:24 08/05/21 06:24 Labs: Abnormal Lab Results - Last 24 Hours (Table) 08/04/21 08/04/21 08/04/21 Range/Units 08:47 16:33 20:39 WBC (3.8-10.6) k/uL RBC (4.30-5.90) m/uL Hgb (13.0-17.5) gm/dL Hct (39.0-53.0) % RDW (11.5-15.5) % Neutrophils # (Manual) (1.3-7.7) k/uL Lymphocytes # (Manual) (1.0-4.8) k/uL Monocytes # (Manual) (0-1.0) k/uL Nucleated RBCs (0-0) /100 WBC PT (9.0-12.0) sec INR (<1.2) BUN (9-20) mg/dL Creatinine (0.66-1.25) mg/dL Glucose (74-99) mg/dL POC Glucose (mg/dL) 196 H 182 H (75-99) mg/dL Calcium (8.4-10.2) mg/dL Iron 30 L (65-175) ug/dL TIBC 196 L (228-460) ug/dL Transferrin 140.0 L (204.0-354.0) mg/dL Total Bilirubin (0.2-1.3) mg/dL Total Protein (6.3-8.2) g/dL Albumin (3.5-5.0) g/dL 08/05/21 08/05/21 08/05/21 Range/Units 06:24 06:24 06:24 WBC 14.4 H (3.8-10.6) k/uL RBC 2.59 L (4.30-5.90) m/uL Hgb 8.0 L (13.0-17.5) gm/dL Hct 25.9 L (39.0-53.0) % RDW 18.9 H (11.5-15.5) % Neutrophils # (Manual) 13.10 H (1.3-7.7) k/uL Lymphocytes # (Manual) 0.29 L (1.0-4.8) k/uL Monocytes # (Manual) 1.01 H (0-1.0) k/uL Nucleated RBCs 1 H (0-0) /100 WBC PT 12.9 H (9.0-12.0) sec INR 1.2 H (<1.2) BUN 85 H (9-20) mg/dL Creatinine 2.20 H (0.66-1.25) mg/dL Glucose 131 H (74-99) mg/dL POC Glucose (mg/dL) (75-99) mg/dL Calcium 7.9 L (8.4-10.2) mg/dL Iron (65-175) ug/dL TIBC (228-460) ug/dL Transferrin (204.0-354.0) mg/dL Total Bilirubin 1.7 H (0.2-1.3) mg/dL Total Protein 5.6 L (6.3-8.2) g/dL Albumin 2.9 L (3.5-5.0) g/dL 08/05/21 Range/Units 06:47 WBC (3.8-10.6) k/uL RBC (4.30-5.90) m/uL Hgb (13.0-17.5) gm/dL Hct (39.0-53.0) % RDW (11.5-15.5) % Neutrophils # (Manual) (1.3-7.7) k/uL Lymphocytes # (Manual) (1.0-4.8) k/uL Monocytes # (Manual) (0-1.0) k/uL Nucleated RBCs (0-0) /100 WBC PT (9.0-12.0) sec INR (<1.2) BUN (9-20) mg/dL Creatinine (0.66-1.25) mg/dL Glucose (74-99) mg/dL POC Glucose (mg/dL) 137 H (75-99) mg/dL Calcium (8.4-10.2) mg/dL Iron (65-175) ug/dL TIBC (228-460) ug/dL Transferrin (204.0-354.0) mg/dL Total Bilirubin (0.2-1.3) mg/dL Total Protein (6.3-8.2) g/dL Albumin (3.5-5.0) g/dL Microbiology - Last 24 Hours (Table) 08/03/21 10:50 Urine Culture - Final Urine,Clean Catch Assessment and Plan Plan: 1 postop day # 8 following mitral valve replacement, tricuspid valve repair and single-vessel bypass surgery with SVG to acute marginal. 2 post thoracotomy with secondary atelectatic changes and bilateral pleural effusion with hypoxic respiratory failure, currently on 3 L O2 by nasal cannula 3 chronic right-sided loculated right-sided pleural effusion, post previous thoracentesis with negative fluid cytology. The patient has a pigtail catheter insertion 2 and following the second catheter insertion, there is improvement output and improvement in the size of the pleural fluid collection on the chest x-ray. Oxygenation is also improved and the patient is currently on 3 L O2 nasal cannula. Patient continues to have left-sided chest tube in place. 4 post thoracotomy left-sided pleural effusion, chest tube is in place on the left 5 acute hypoxic respiratory failure currently on 3 L of oxygen by cannula 6 history of sick sinus syndrome and the patient has a [employer] pacemaker placement in 2017 7 chronic atrial fibrillation maintained on medical condition with warfarin on outpatient basis. The patient has undergone closure of the left atrial appendage 8 chronic systolic heart failure 98 shows septal defect post closure 10 chronic kidney disease stage III 11 restrictive lung disease with a preop FEV1 of 47% of predicted 12 seconds sleep apnea 13 postoperative acute blood loss anemia, expected outcome of surgery. Plan Clinically stable Keep the chest tubes in place and moderate output Continue using incentive spirometer Abdomen is slightly distended and tympanic, consider underlying partial ileus Continue aspirin We'll start anticoagulation with warfarin will monitor PT/INR to maintain a level of INR between 2 and 3 Continue Lipitor Continue aggressive pulmonary toileting We'll continue to follow. Keep the patient ICU for another 24 hours.
[2021-08-05 12:15] LABS: Glucose,Whole Blood 189 mg/dL (75-99)
--- NOTE | 2021-08-05 13:39 | P.PN ---
Subjective Patient is seen for follow-up for acute kidney injury on top of chronic kidney disease. Denies any significant complaints. 24 hour urine output at about 1 L. Serum creatinine is slightly lower at 2.2 mg/dL today. Patient continues to have bilateral chest tubes Objective - Vital Signs Vital signs: Vital Signs Temp 97.6 F 08/05/21 12:00 Pulse 65 08/05/21 12:00 Resp 28 H 08/05/21 12:00 BP 140/69 08/05/21 12:00 Pulse Ox 98 08/05/21 12:00 Intake & Output 08/04/21 08/05/21 08/05/21 18:59 06:59 18:59 Intake Total 920 300 0 Output Total 1561 1170 250 Balance -641 -870 -250 Weight 74.3 kg 75.5 kg Intake: IV 0 0 Pressure Bags 0 0 Oral 920 300 Output: Chest Tube Drainage 1260 970 L pleural 340 270 Right Posterior Chest 920 700 Urine 300 200 250 Stool 1 Other: Voiding Method Indwelling Catheter Urinal Urinal # Voids 1 1 1 ABP, PAP, CO, CI - Last Documented Arterial Blood Pressure 119/35 Pulmonary Artery Pressure 35/28 Cardiac Output 5 Cardiac Index 2.7 - Exam Patient is awake comfortable. Not in any acute distress Examination of the heart S1 and S2 Examination lungs bilateral breath sounds heard bilateral chest tubes present Abdomen is soft Examination lower extremity shows trace edema right lower extremity HEAT TREATING BLUER exam grossly intact - Labs CBC & Chem 7: 08/05/21 06:24 08/05/21 06:24 Labs: Abnormal Lab Results - Last 24 Hours (Table) 08/04/21 08/04/21 08/04/21 Range/Units 08:47 16:33 20:39 WBC (3.8-10.6) k/uL RBC (4.30-5.90) m/uL Hgb (13.0-17.5) gm/dL Hct (39.0-53.0) % RDW (11.5-15.5) % Neutrophils # (Manual) (1.3-7.7) k/uL Lymphocytes # (Manual) (1.0-4.8) k/uL Monocytes # (Manual) (0-1.0) k/uL Nucleated RBCs (0-0) /100 WBC PT (9.0-12.0) sec INR (<1.2) BUN (9-20) mg/dL Creatinine (0.66-1.25) mg/dL Glucose (74-99) mg/dL POC Glucose (mg/dL) 196 H 182 H (75-99) mg/dL Calcium (8.4-10.2) mg/dL Iron 30 L (65-175) ug/dL TIBC 196 L (228-460) ug/dL Transferrin 140.0 L (204.0-354.0) mg/dL Total Bilirubin (0.2-1.3) mg/dL Total Protein (6.3-8.2) g/dL Albumin (3.5-5.0) g/dL 08/05/21 08/05/21 08/05/21 Range/Units 06:24 06:24 06:24 WBC 14.4 H (3.8-10.6) k/uL RBC 2.59 L (4.30-5.90) m/uL Hgb 8.0 L (13.0-17.5) gm/dL Hct 25.9 L (39.0-53.0) % RDW 18.9 H (11.5-15.5) % Neutrophils # (Manual) 13.10 H (1.3-7.7) k/uL Lymphocytes # (Manual) 0.29 L (1.0-4.8) k/uL Monocytes # (Manual) 1.01 H (0-1.0) k/uL Nucleated RBCs 1 H (0-0) /100 WBC PT 12.9 H (9.0-12.0) sec INR 1.2 H (<1.2) BUN 85 H (9-20) mg/dL Creatinine 2.20 H (0.66-1.25) mg/dL Glucose 131 H (74-99) mg/dL POC Glucose (mg/dL) (75-99) mg/dL Calcium 7.9 L (8.4-10.2) mg/dL Iron (65-175) ug/dL TIBC (228-460) ug/dL Transferrin (204.0-354.0) mg/dL Total Bilirubin 1.7 H (0.2-1.3) mg/dL Total Protein 5.6 L (6.3-8.2) g/dL Albumin 2.9 L (3.5-5.0) g/dL 08/05/21 08/05/21 Range/Units 06:47 12:12 WBC (3.8-10.6) k/uL RBC (4.30-5.90) m/uL Hgb (13.0-17.5) gm/dL Hct (39.0-53.0) % RDW (11.5-15.5) % Neutrophils # (Manual) (1.3-7.7) k/uL Lymphocytes # (Manual) (1.0-4.8) k/uL Monocytes # (Manual) (0-1.0) k/uL Nucleated RBCs (0-0) /100 WBC PT (9.0-12.0) sec INR (<1.2) BUN (9-20) mg/dL Creatinine (0.66-1.25) mg/dL Glucose (74-99) mg/dL POC Glucose (mg/dL) 137 H 189 H (75-99) mg/dL Calcium (8.4-10.2) mg/dL Iron (65-175) ug/dL TIBC (228-460) ug/dL Transferrin (204.0-354.0) mg/dL Total Bilirubin (0.2-1.3) mg/dL Total Protein (6.3-8.2) g/dL Albumin (3.5-5.0) g/dL Microbiology - Last 24 Hours (Table) 08/03/21 10:50 Urine Culture - Final Urine,Clean Catch Assessment and Plan Assessment: 1. Acute kidney injury, ATN currently nonoliguric, mostly hemodynamic and associated with anemia as well. Patient is status post diuresis. Continue off of diuretics for now. 2. Anemia postoperatively check iron profile. Patient is status post packed RBCs I will also start him on Aranesp. 3. Coronary artery disease status post coronary artery bypass surgery 1 with mitral valve replacement and tricuspid valve repair, postop day #7 4. Chronic kidney disease NKF stage IIIB baseline creatinine about 1.6-1.7. Serum creatinine as low as 1.2 on 07/28/2021,? Falsely low secondary to volume overload 5. 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 Hematuria, status post discontinuation of Cortes catheter. No anticoagulation on board. Plan: Continue off of Lasix repeat labs in a.m. Continue PhosLo and Aranesp.
[2021-08-05 16:11] LABS: Glucose,Whole Blood 188 mg/dL (75-99)
[2021-08-05] MEDS ORDERED: WARFARIN 1 MG TAB PO ONE (18:00)
--- NOTE | 2021-08-05 19:26 | P.PN ---
Subjective Progress Note Date: 08/05/21 This is a 81-year-old male patient who is currently postop day 2 from mitral valve replacement, tricuspid valve repair and single-vessel bypass grafting SVG to obtuse marginal. Patient has a past medical history of valvular heart disease with symptoms including shortness of breath with exertion and unable to perform many of his activities of daily living. Additional medical history includes coronary artery disease with previous cardiac infarction and PCI, hypertension, chronic atrial fibrillation on Coumadin for and configuration status post cardioversion, sick sinus syndrome with [employer] permanent pacemaker placement 2016, chronic systolic heart failure, atrial septal defect status post closure with previous mitral clip in 2019 at [facility], chronic renal insufficiency, obstructive sleep apnea, reoccurring right-sided pleural effusions with previous thoracentesis 4. At this time patient is currently resting comfortably in the intensive care unit. Patient was successfully extubated per protocol currently on IV dopamine and Levophed. INR elevated at 6.5. hemoglobin 6.6. 1 unit PRBCs, 2 units of FFP have been ordered per surgical services INR recheck ordered for noon. Chest x-ray the same showing cardiomegaly with moderate to large right and small sized bilateral pleural effusion collection and/or effusions with mild to moderate central vascular congestion and bibasilar opacities favoring atelectasis along with left-sided chest tubes are redemonstrated. Per surgical services possible plans for Pleurx catheter placement. This time patient is resting comfortably in chair patient remains on high flow oxygen. Blood sugars have remained stable per nursing staff will transition off insulin drip to sliding scale coverage. Cardiology and critical care services are following. On 07/31/2021 patient having intermittent episodes of confusion. INR improving to 2.3. Hemoglobin 7.6. Chest tubes remain in place. Cardiology and critical care services are following. Patient remains on high flow nasal cannula. Current vitals heart rate 80, respiratory rate 16, blood pressure 104/51 On 08/01/2021 patient is more alert currently resting comfortably in chair. Sitter is at bedside. Patient remains on high flow nasal cannula. Patient remains on IV Bumex. Cordis, chest tube and right pigtail catheter all remain in place. On 08/02/2021 patient was seen and examined in the ICU he is alert and oriented 3 in no apparent distress, sitting up in a chair, he is maintained on high flow oxygen, with FiO2 of 45, pulse ox is 93% temperature 97.2 pulse 80 respiration 22 blood pressure 129/46, he denies any fever or chills no headache or dizziness no chest pain no shortness of breath no cough no nausea no vomiting no abdominal pain no diarrhea and no urinary symptoms, chest tube is still in place, he is maintained on Bumex 2 mg IV every 8 hours On 08/03/2021 patient remains in the intensive care unit. Patient is alert and oriented sitting comfortably in chair. Discussed case with surgical team Bumex has been DC'd. Creatinine 2.25 bun 70. Chest tube remains in place. Patient remains on high flow 60%. This time patient denies chest pain or shortness socorro th. Patient denies diarrhea. Patient denies any urinary burning or frequency On 08/04/2021 patient was seen and examined, in the ICU, he is alert and oriented 3 in no apparent distress, there is no fever or chills no headache or dizziness no chest pain no shortness of breath no cough no nausea or vomiting no abdominal pain no diarrhea and no urinary symptoms he still has a left sided chest to and he is complaining of discomfort at the site of the 2 he is maintained on oxygen at 8 L nasal cannula his pulse ox is 96% blood pressure 126/62 pulse 63 respiration 24 temperature 97.9 On 08/05/2021 patient was seen and examined in the ICU he is alert and oriented 3 in no apparent distress he is sitting up in a chair he is complaining of discomfort in the left chest at the site of the chest to he is also complaining of pain when coughing otherwise he denies any complaints at this time his vital exam reveals a temperature of 98 pulse 65 respiration 30 blood pressure 136/66 pulse ox 98% on oxygen 3 L nasal cannula, white blood count is 14.4 hemoglobin 8.0 platelet count 192 INR 1.2 BUN 85 creatinine 2.2 Objective - Vital Signs Vital signs: Vital Signs Temp 98 F 08/05/21 08:00 Pulse 64 08/05/21 09:00 Resp 23 08/05/21 09:00 BP 123/71 08/05/21 09:00 Pulse Ox 94 L 08/05/21 09:00 Intake & Output 08/04/21 08/05/21 08/05/21 18:59 06:59 18:59 Intake Total 920 300 Output Total 1561 1170 250 Balance -641 -870 -250 Weight 74.3 kg 75.5 kg Intake: IV 0 Pressure Bags 0 Oral 920 300 Output: Chest Tube Drainage 1260 970 L pleural 340 270 Right Posterior Chest 920 700 Urine 300 200 250 Stool 1 Other: Voiding Method Indwelling Catheter Urinal Urinal # Voids 1 1 ABP, PAP, CO, CI - Last Documented Arterial Blood Pressure 119/35 Pulmonary Artery Pressure 35/28 Cardiac Output 5 Cardiac Index 2.7 - Exam In general patient is alert and oriented x 3 in no distress HEENT head normocephalic and atraumatic Neck is supple no JVD no goiter no lymphadenopathy no carotid bruit Chest examination reveals a scattered crackles in both lung sousa no wheezing Cardiac exam reveals regular heart sounds S1 and S2 no gallops no murmurs Abdomen is soft nontender no organomegaly with normal bowel sounds Extremity exam reveals no edema no cyanosis or clubbing Neurological examination reveals no gross focal deficits - Labs CBC & Chem 7: 08/05/21 06:24 08/05/21 06:24 Labs: Abnormal Lab Results - Last 24 Hours (Table) 08/04/21 08/04/21 08/04/21 Range/Units 08:47 11:17 16:33 WBC (3.8-10.6) k/uL RBC (4.30-5.90) m/uL Hgb (13.0-17.5) gm/dL Hct (39.0-53.0) % RDW (11.5-15.5) % Neutrophils # (Manual) (1.3-7.7) k/uL Lymphocytes # (Manual) (1.0-4.8) k/uL Monocytes # (Manual) (0-1.0) k/uL Nucleated RBCs (0-0) /100 WBC PT (9.0-12.0) sec INR (<1.2) BUN (9-20) mg/dL Creatinine (0.66-1.25) mg/dL Glucose (74-99) mg/dL POC Glucose (mg/dL) 179 H 196 H (75-99) mg/dL Calcium (8.4-10.2) mg/dL Iron 30 L (65-175) ug/dL TIBC 196 L (228-460) ug/dL Transferrin 140.0 L (204.0-354.0) mg/dL Total Bilirubin (0.2-1.3) mg/dL Total Protein (6.3-8.2) g/dL Albumin (3.5-5.0) g/dL 08/04/21 08/05/21 08/05/21 Range/Units 20:39 06:24 06:24 WBC 14.4 H (3.8-10.6) k/uL RBC 2.59 L (4.30-5.90) m/uL Hgb 8.0 L (13.0-17.5) gm/dL Hct 25.9 L (39.0-53.0) % RDW 18.9 H (11.5-15.5) % Neutrophils # (Manual) 13.10 H (1.3-7.7) k/uL Lymphocytes # (Manual) 0.29 L (1.0-4.8) k/uL Monocytes # (Manual) 1.01 H (0-1.0) k/uL Nucleated RBCs 1 H (0-0) /100 WBC PT 12.9 H (9.0-12.0) sec INR 1.2 H (<1.2) BUN (9-20) mg/dL Creatinine (0.66-1.25) mg/dL Glucose (74-99) mg/dL POC Glucose (mg/dL) 182 H (75-99) mg/dL Calcium (8.4-10.2) mg/dL Iron (65-175) ug/dL TIBC (228-460) ug/dL Transferrin (204.0-354.0) mg/dL Total Bilirubin (0.2-1.3) mg/dL Total Protein (6.3-8.2) g/dL Albumin (3.5-5.0) g/dL 08/05/21 08/05/21 Range/Units 06:24 06:47 WBC (3.8-10.6) k/uL RBC (4.30-5.90) m/uL Hgb (13.0-17.5) gm/dL Hct (39.0-53.0) % RDW (11.5-15.5) % Neutrophils # (Manual) (1.3-7.7) k/uL Lymphocytes # (Manual) (1.0-4.8) k/uL Monocytes # (Manual) (0-1.0) k/uL Nucleated RBCs (0-0) /100 WBC PT (9.0-12.0) sec INR (<1.2) BUN 85 H (9-20) mg/dL Creatinine 2.20 H (0.66-1.25) mg/dL Glucose 131 H (74-99) mg/dL POC Glucose (mg/dL) 137 H (75-99) mg/dL Calcium 7.9 L (8.4-10.2) mg/dL Iron (65-175) ug/dL TIBC (228-460) ug/dL Transferrin (204.0-354.0) mg/dL Total Bilirubin 1.7 H (0.2-1.3) mg/dL Total Protein 5.6 L (6.3-8.2) g/dL Albumin 2.9 L (3.5-5.0) g/dL Microbiology - Last 24 Hours (Table) 08/03/21 10:50 Urine Culture - Final Urine,Clean Catch Assessment and Plan Assessment: 1. Status post mitral valve replacement, tricuspid valve repair and single- vessel bypass grafting. Postop day 4 2. Right-sided pleural effusion 3. Coagulopathy. Resolved 4. History of congestive heart failure 5. History of valvular heart disease with previous mitral valve repair with a mitral clip at [facility] 6. History of coronary artery disease 7. History of hyperlipidemia 8. History of renal insufficiency 9. Previous history of atrial fibrillation Thank you for this consultation we will continue to follow patient closely throughout stay Patient remains in the intensive care unit Repeat labs ordered Patient to be transitioned off IV insulin to sliding scale coverage. A1c 5.8
[2021-08-05 20:39] LABS: Glucose,Whole Blood 167 mg/dL (75-99)
[2021-08-05] MEDS: ATORVASTATIN 40 MG TAB PO SCH (20:47)
[2021-08-05] MEDS: CALCIUM ACETATE 667 MG TAB PO SCH (20:47)
[2021-08-06 06:49] LABS: Glucose,Whole Blood 146 mg/dL (75-99)
[2021-08-06] MEDS: PANTOPRAZOLE 40 MG TABLET PO SCH (07:03)
[2021-08-06] MEDS: INSULIN ASPART (NovoLOG) 100 UNIT/ML VIAL SQ SCH ×4 (07:03→20:44)
[2021-08-06 07:50] LABS: Anisocytosis Slight; Basophils % (A) 0 %; Eosinophils # (A) 0.1 k/uL (0-0.7); Eosinophils % (A) 1 %; HCT 27.2 % (39.0-53.0); HGB 8.6 gm/dL (13.0-17.5); Hypochromasia Moderate; Lymphocytes # (A) 0.7 k/uL (1.0-4.8); Lymphocytes % (A) 5 %; MCH 31.6 pg (25.0-35.0); MCHC 31.5 g/dL (31.0-37.0); MCV 100.3 fL (80.0-100.0); Macrocytosis Moderate; Mean Platelet Volume 9.3; Monocytes # (A) 0.7 k/uL (0-1.0); Monocytes % (A) 5 %; Neutrophils # (A) 13.4 k/uL (1.3-7.7); Neutrophils % (A) 88 %; Platelet Count 224 k/uL (150-450); Poikilocytosis Slight; RBC 2.71 m/uL (4.30-5.90); RDW 19.9 % (11.5-15.5); WBC 15.3 k/uL (3.8-10.6)
--- NOTE | 2021-08-06 07:52 | XR ---
EXAMINATION TYPE: XR chest 1V portable DATE OF EXAM: 08/06/2021 COMPARISON: 08/05/2021 INDICATION: Postop cardiac surgery TECHNIQUE: Single frontal view of the chest is obtained. FINDINGS: The heart size is enlarged. Sternotomy wires are in the midline left-sided chest tube is present. No pneumothorax is evident. Small right pleural fluid collection is evident. Minimal left pleural fluid is present. Pacemaker overlies left chest The pulmonary vasculature is normal. IMPRESSION: 1. Small bilateral pleural effusions. 2. Left-sided chest tube. No pneumothorax is evident. 3. Cardiomegaly
[2021-08-06 07:56] LABS: INR 1.1 (<1.2); Prothrombin Time 12.2 sec (9.0-12.0)
[2021-08-06 08:09] LABS: Albumin 2.9 g/dL (3.5-5.0); Calcium 7.8 mg/dL (8.4-10.2); Magnesium 2.6 mg/dL (1.6-2.3); Potassium 4.2 mmol/L (3.5-5.1); Total Bilirubin 1.7 mg/dL (0.2-1.3); Total Protein 5.5 g/dL (6.3-8.2)
[2021-08-06] MEDS: allopurinoL 100 MG TAB PO SCH (08:09)
[2021-08-06] MEDS: ASCORBIC ACID 500 MG TAB PO SCH (08:10)
[2021-08-06] MEDS: FOLIC ACID 1 MG TAB PO SCH (08:10)
[2021-08-06] MEDS: FERROUS SULFATE 325 MG TAB PO SCH (08:11)
[2021-08-06] MEDS: ASPIRIN 81 MG PO SCH (08:11)
[2021-08-06] MEDS: HEPARIN SODIUM,PORCINE/PF 5,000 UNIT/0.5 ML SYRINGE SQ SCH ×2 (08:12→16:49)
[2021-08-06] MEDS: MUPIROCIN 2% OINT 22 GM TUBE NASAL SCH ×2 (08:12→20:44)
[2021-08-06] MEDS: NYSTATIN 100,000 UNIT/ML SUSP 500,000 UNIT/5 ML CUP PO SCH ×4 (08:28→20:52)
[2021-08-06] MEDS: IPRATROPIUM-ALBUTEROL 3 ML NEB INHALATION SCH ×4 (08:30→19:42)
--- NOTE | 2021-08-06 11:09 | P.PN ---
Subjective Patient is seen for follow-up for acute kidney injury on top of chronic kidney disease. Denies any significant complaints. 24 hour urine output documented at 420 mL. Serum creatinine is slightly lower at 2.4 mg/dL today. Patient continues to have bilateral chest tubes Blood pressure was noted to be low with systolic at 99 mmHg, however that was just one reading. The urine output is not accurately charted as patient did void in the commode as well. Post void residual was 1 80 mL this morning. Objective - Vital Signs Vital signs: Vital Signs Temp 97.6 F 08/06/21 08:00 Pulse 63 08/06/21 10:00 Resp 21 08/06/21 10:00 BP 137/69 08/06/21 10:00 Pulse Ox 94 L 08/06/21 10:00 Intake & Output 08/05/21 08/06/21 08/06/21 18:59 06:59 18:59 Intake Total 360 0 Output Total 1230 462 495 Balance -870 -462 -495 Weight 71.4 kg Intake: IV 0 0 Pressure Bags 0 0 Oral 360 Output: Drainage 830 [address] 300 230 140 Right Posterior 530 212 180 Urine 400 20 175 Other: Voiding Method Urinal Urinal Urinal # Voids 1 1 0 # Bowel Movements 1 ABP, PAP, CO, CI - Last Documented Arterial Blood Pressure 119/35 Pulmonary Artery Pressure 35/28 Cardiac Output 5 Cardiac Index 2.7 - Exam Patient is awake comfortable. 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 - Labs CBC & Chem 7: 08/06/21 07:17 08/06/21 07:17 Labs: Abnormal Lab Results - Last 24 Hours (Table) 08/05/21 08/05/21 08/05/21 Range/Units 12:12 16:10 20:38 WBC (3.8-10.6) k/uL RBC (4.30-5.90) m/uL Hgb (13.0-17.5) gm/dL Hct (39.0-53.0) % MCV (80.0-100.0) fL RDW (11.5-15.5) % Neutrophils # (1.3-7.7) k/uL Lymphocytes # (1.0-4.8) k/uL PT (9.0-12.0) sec BUN (9-20) mg/dL Creatinine (0.66-1.25) mg/dL Glucose (74-99) mg/dL POC Glucose (mg/dL) 189 H 188 H 167 H (75-99) mg/dL Calcium (8.4-10.2) mg/dL Magnesium (1.6-2.3) mg/dL Total Bilirubin (0.2-1.3) mg/dL Total Protein (6.3-8.2) g/dL Albumin (3.5-5.0) g/dL 08/06/21 08/06/21 08/06/21 Range/Units 06:48 07:17 07:17 WBC 15.3 H (3.8-10.6) k/uL RBC 2.71 L (4.30-5.90) m/uL Hgb 8.6 L (13.0-17.5) gm/dL Hct 27.2 L (39.0-53.0) % MCV 100.3 H (80.0-100.0) fL RDW 19.9 H (11.5-15.5) % Neutrophils # 13.4 H (1.3-7.7) k/uL Lymphocytes # 0.7 L (1.0-4.8) k/uL PT 12.2 H (9.0-12.0) sec BUN (9-20) mg/dL Creatinine (0.66-1.25) mg/dL Glucose (74-99) mg/dL POC Glucose (mg/dL) 146 H (75-99) mg/dL Calcium (8.4-10.2) mg/dL Magnesium (1.6-2.3) mg/dL Total Bilirubin (0.2-1.3) mg/dL Total Protein (6.3-8.2) g/dL Albumin (3.5-5.0) g/dL 08/06/21 Range/Units 07:17 WBC (3.8-10.6) k/uL RBC (4.30-5.90) m/uL Hgb (13.0-17.5) gm/dL Hct (39.0-53.0) % MCV (80.0-100.0) fL RDW (11.5-15.5) % Neutrophils # (1.3-7.7) k/uL Lymphocytes # (1.0-4.8) k/uL PT (9.0-12.0) sec BUN 89 H (9-20) mg/dL Creatinine 2.43 H (0.66-1.25) mg/dL Glucose 132 H (74-99) mg/dL POC Glucose (mg/dL) (75-99) mg/dL Calcium 7.8 L (8.4-10.2) mg/dL Magnesium 2.6 H (1.6-2.3) mg/dL Total Bilirubin 1.7 H (0.2-1.3) mg/dL Total Protein 5.5 L (6.3-8.2) g/dL Albumin 2.9 L (3.5-5.0) g/dL Assessment and Plan Assessment: 1. Acute kidney injury, ATN currently nonoliguric, mostly hemodynamic and associated with anemia as well. Patient is status post diuresis. Continue off of diuretics for now. No urine retention. 2. Anemia postoperatively check iron profile. Patient is status post packed RBCs , started on Aranesp. 3. Coronary artery disease status post coronary artery bypass surgery 1 with mitral valve replacement and tricuspid valve repair, 4. Chronic kidney disease NKF stage IIIB baseline creatinine about 1.6-1.7. Serum creatinine as low as 1.2 on 07/28/2021,? Falsely low secondary to volume overload 5. 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 Hematuria, status post discontinuation of Cortes catheter. No anticoagulation on board. Plan: Continue off of Lasix repeat labs in a.m. Continue PhosLo and Aranesp. Continue to monitor post void residuals
--- NOTE | 2021-08-06 11:11 | P.PN ---
Subjective Progress Note Date: 08/06/21 This is a very pleasant 81-year-old male patient is being seen in follow-up. The patient is postop day #7. 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 Note that the patient had a preoperative right-sided pleural effusion along with various other medical problems and comorbidities. Postop, the patient becomes hypoxic and short of breath post extubation. He was on high flow oxygen. The right-sided pleural effusion was noted and at that point a pigtail catheter was inserted into the right hemithorax. The catheter was inserted and the patient was having adequate drainage for the past 48 hours and since yesterday, there has been no output. The patient continues to have a left-sided chest tube and output has been around 400 mL over the past 8-12 hours. The patient is using incentive spirometer. The patient is currently on 8 L of oxygen by nasal cannula with a pulse oximetry 96%. The patient is pulling approximately 1000 on his incentive spirometer. His cardiac rhythm is basically rate of 60. The patient is hemodynamically stable and the patient is on no pressors at this point in time. He doesn't component of chronic kidney disease. The BUN is at 76 with a creatinine of 2.36. Potassium level is at 3.7 with a sodium level of 137. Hemoglobin is at 7.8 with a platelet count 234. A repeat chest x-ray was done and it showed cardiomegaly, a loculated right-sided pleural effusion, impacted on the right, and a chest tube on the left and post thoracotomy changes in the mid sternal area. The patient has chronic kidney disease, obstructive sleep apnea, he has undergone previous thoracenteses regarding the right-sided pleural effusion and pleural fluid cytology has been essentially negative for malignancy. He is awake and alert and following commands and answering questions appropriately. On today's evaluation of 08/05/2021, I'm seeing the patient in the follow-up. The patient is postop day #8. Noted the patient continues to have drainage from the chest tube. The chest tube on the left has drained approximately 600 mL total since 24 hours and 200 mL over the past 8 hours. Note that the patient also has a new pigtail catheter inserted by interventional radiology and immediately after insertion, a total of 900 mL of fluid was aspirated and the patient has put out another 600 mL over the past 8 hours. As such, the output remains considerably high. Meanwhile, the chest x-ray from today showing improvement in the volume status and improvement in the right-sided pleural effusion. No localization at this point in time. Pigtail catheter is in a good location. The patient remains on 3 L of O2 nasal cannula. White cell count is 14.5 with hemoglobin 8.2 and a platelet count of 192. Sodium is at 139 with a potassium level of 3.9 and a BUN of 85 with a creatinine of 2.2 and the creatinine is stable for now. Patient continues to use incentive spirometer. The patient has a pacemaker in place and the cardiac rhythmat this point in time. Sternal wound is dry clean and intact. The patient is afebrile. The patient is hemodynamically stable at this point in time. No nausea. No vomiting. Abdomen is slightly distended and the patient may have some partial ileus. Nevertheless, his passing gas and he is also having regular bowel movements. On 08/06/2021, the patient is being seen for a follow-up and the patient is postop day #9. On today's evaluation, the patient is sitting up on a chair. He did ambulate yesterday for a total of 3 times. Using incentive spirometer and pulling approximately 1200 mL on dialysis. The patient continues to have a left-sided chest tube and the total amount of output over the past 24 hours has been in the order of 550 mL an over the past 8 hours has been 210 mL. The patient also has a pigtail catheter on the right and the total amount of output has been 600 mL over the past 24 hours and 150 mL over the past 8 hours. The chest x-ray from today shows residual bilateral pleural effusion right more than left. There is some cardiomegaly. Chest tubes remains in a good location. No evidence of any air leak and the Pleur-evac on the left. Otherwise, the patient is doing well. No significant respiratory distress and the patient remains on 2 L of O2 by nasal cannula and the blood work from today shows a white cell count of 15.3 which is concerning at this number is on the right and hemoglobin of 8.6. Correlation profile is within normal. BUN is 89 with a creatinine of 2.4 and the patient is known to have chronic kidney disease. Creatinine yesterday was 2.2. The rest of the electrodes are all within normal limits. Objective - Vital Signs Vital signs: Vital Signs Temp 97.6 F 08/06/21 08:00 Pulse 63 08/06/21 10:00 Resp 21 08/06/21 10:00 BP 137/69 08/06/21 10:00 Pulse Ox 94 L 08/06/21 10:00 Intake & Output 08/05/21 08/06/21 08/06/21 18:59 06:59 18:59 Intake Total 360 0 Output Total 1230 462 495 Balance -870 -462 -495 Weight 71.4 kg Intake: IV 0 0 Pressure Bags 0 0 Oral 360 Output: Drainage 830 [address] 300 230 140 Right Posterior 530 212 180 Urine 400 20 175 Other: Voiding Method Urinal Urinal Urinal # Voids 1 1 0 # Bowel Movements 1 ABP, PAP, CO, CI - Last Documented Arterial Blood Pressure 119/35 Pulmonary Artery Pressure 35/28 Cardiac Output 5 Cardiac Index 2.7 - Exam CONSTITUTIONAL: Sitting up to the bedside chair in the intensive care unit, appears comfortable, cooperative, and is in no apparent acute distress. HEENT: Neck is supple, no JVD, no lymphadenopathy. RESPIRATORY: Lungs sounds essentially clear throughout, diminished to his bilateral bases, right greater than left. Scattered wheezes and rhonchi. Respirations are symmetrical and nonlabored. Currently on 2 L high flow nasal cannula, oxygen saturations 96%. Able to achieve more than 1000 MLS on the incentive spirometer. CARDIOVASCULAR: Regular rhythm and rate. S1 and S2 present, negative for S3, gallop or murmur. Sternum is stable. Palpable peripheral pulses bilaterally. No calf pain or tenderness noted. Heart hugger in place with patient demonstrating appropriate use with encouragement. Knee-high SUMI hose and sequential compression devices in place to his bilateral lower extremities. Bedside telemetry showing paced rhythm at 60 BPM. GASTROINTESTINAL: Abdomen soft, nontender, distended. Active bowel sounds present 4 quadrants. Tolerating diet. No guarding or rigidity. Bowel movement 2 in the last 24 hours. The abdomen is slightly distended and tympanic at this point in time. GENITOURINARY: Continues to void. Urine output is adequate for now. INTEGUMENTARY: Skin is warm and dry with no evidence of clubbing or cyanosis. Midline sternal incision clean dry and well approximated, covered with dry intact dressing. Left lower extremity EVH site well approximated without redness or drainage. NEUROLOGIC: Cranial nerves II through XII intact. No focal deficits. MUSKULOSKELETAL: Able to move all extremities, strength equal bilaterally, generalized weakness. PSYCHIATRIC: Alert and oriented 3, appropriate affect. - Labs CBC & Chem 7: 08/06/21 07:17 08/06/21 07:17 Labs: Abnormal Lab Results - Last 24 Hours (Table) 08/05/21 08/05/21 08/05/21 Range/Units 12:12 16:10 20:38 WBC (3.8-10.6) k/uL RBC (4.30-5.90) m/uL Hgb (13.0-17.5) gm/dL Hct (39.0-53.0) % MCV (80.0-100.0) fL RDW (11.5-15.5) % Neutrophils # (1.3-7.7) k/uL Lymphocytes # (1.0-4.8) k/uL PT (9.0-12.0) sec BUN (9-20) mg/dL Creatinine (0.66-1.25) mg/dL Glucose (74-99) mg/dL POC Glucose (mg/dL) 189 H 188 H 167 H (75-99) mg/dL Calcium (8.4-10.2) mg/dL Magnesium (1.6-2.3) mg/dL Total Bilirubin (0.2-1.3) mg/dL Total Protein (6.3-8.2) g/dL Albumin (3.5-5.0) g/dL 08/06/21 08/06/21 08/06/21 Range/Units 06:48 07:17 07:17 WBC 15.3 H (3.8-10.6) k/uL RBC 2.71 L (4.30-5.90) m/uL Hgb 8.6 L (13.0-17.5) gm/dL Hct 27.2 L (39.0-53.0) % MCV 100.3 H (80.0-100.0) fL RDW 19.9 H (11.5-15.5) % Neutrophils # 13.4 H (1.3-7.7) k/uL Lymphocytes # 0.7 L (1.0-4.8) k/uL PT 12.2 H (9.0-12.0) sec BUN (9-20) mg/dL Creatinine (0.66-1.25) mg/dL Glucose (74-99) mg/dL POC Glucose (mg/dL) 146 H (75-99) mg/dL Calcium (8.4-10.2) mg/dL Magnesium (1.6-2.3) mg/dL Total Bilirubin (0.2-1.3) mg/dL Total Protein (6.3-8.2) g/dL Albumin (3.5-5.0) g/dL 08/06/21 Range/Units 07:17 WBC (3.8-10.6) k/uL RBC (4.30-5.90) m/uL Hgb (13.0-17.5) gm/dL Hct (39.0-53.0) % MCV (80.0-100.0) fL RDW (11.5-15.5) % Neutrophils # (1.3-7.7) k/uL Lymphocytes # (1.0-4.8) k/uL PT (9.0-12.0) sec BUN 89 H (9-20) mg/dL Creatinine 2.43 H (0.66-1.25) mg/dL Glucose 132 H (74-99) mg/dL POC Glucose (mg/dL) (75-99) mg/dL Calcium 7.8 L (8.4-10.2) mg/dL Magnesium 2.6 H (1.6-2.3) mg/dL Total Bilirubin 1.7 H (0.2-1.3) mg/dL Total Protein 5.5 L (6.3-8.2) g/dL Albumin 2.9 L (3.5-5.0) g/dL Assessment and Plan Plan: 1 postop day # 9 following mitral valve replacement, tricuspid valve repair and single-vessel bypass surgery with SVG to acute marginal. 2 post thoracotomy with secondary atelectatic changes and bilateral pleural effusion with hypoxic respiratory failure, currently on 2 L O2 by nasal cannula 3 chronic right-sided loculated right-sided pleural effusion, post previous thoracentesis with negative fluid cytology. The patient has a pigtail catheter insertion 2 and following the second catheter insertion, there is improvement output and improvement in the size of the pleural fluid collection on the chest x-ray. Oxygenation is also improved and the patient is currently on 2 L O2 nasal cannula. Patient continues to have left-sided chest tube in place. Note that the output from the left-sided chest tube and the right-sided pigtail catheter of his considerably high and those catheters are going to be kept in for now. 4 post thoracotomy left-sided pleural effusion, chest tube is in place on the left 5 acute hypoxic respiratory failure currently on 2 L of oxygen by cannula 6 history of sick sinus syndrome and the patient has a [employer] pacemaker placement in 2017 7 chronic atrial fibrillation maintained on medical condition with warfarin on outpatient basis. The patient has undergone closure of the left atrial appendage 8 chronic systolic heart failure 98 shows septal defect post closure 10 chronic kidney disease stage III 11 restrictive lung disease with a preop FEV1 of 47% of predicted 12 seconds sleep apnea 13 postoperative acute blood loss anemia, expected outcome of surgery. 14 leukocytosis with a rise in the white cell count up to 15. Consider underlying infection. The patient be further worked up. Plan Clinically stable Keep the chest tubes in place and monitor the output, chest x-ray findings are stable and the patient is not having any significant gastrointestinal distress on 2 L of oxygen by nasal cannula. Continue using incentive spirometer Abdomen exam is unchanged compared to yesterday. There may be a component of partial ileus. Continue aspirin Check a UA Check a urinalysis level Monitor fever pattern No need for antibiotic treatment this point in time Continue Lipitor Continue aggressive pulmonary toileting We'll continue to follow. Keep the patient ICU for another 24 hours.
[2021-08-06 11:33] LABS: Amorphous Sediment,Urine Moderate /hpf; Appearance,Urine Turbid (Clear); Bacteria,Urine Occasional /hpf; Bilirubin,Urine Negative (Negative); Blood,Urine Large (Negative); Color,Urine Light Red; Glucose,Urine (UA) Negative (Negative); Hyaline Casts,Urine 11 /lpf (0-2); Ketones,Urine Negative (Negative); Leukocyte Esterase,Urine Trace (Negative); Nitrite,Urine Negative (Negative); Protein,Urine 1+ (Negative); RBC,Urine 5 /hpf (0-5); Specific Gravity,Urine 1.016 (1.001-1.035); Urobilinogen,Urine <2.0 mg/dL (<2.0); WBC,Urine 11 /hpf (0-5)
--- NOTE | 2021-08-06 11:35 | P.PN ---
Subjective Progress Note Date: 08/06/21 This is a 81-year-old male patient who is currently postop day 2 from mitral valve replacement, tricuspid valve repair and single-vessel bypass grafting SVG to obtuse marginal. Patient has a past medical history of valvular heart disease with symptoms including shortness of breath with exertion and unable to perform many of his activities of daily living. Additional medical history includes coronary artery disease with previous cardiac infarction and PCI, hypertension, chronic atrial fibrillation on Coumadin for and configuration status post cardioversion, sick sinus syndrome with [employer] permanent pacemaker placement 2016, chronic systolic heart failure, atrial septal defect status post closure with previous mitral clip in 2019 at [facility], chronic renal insufficiency, obstructive sleep apnea, reoccurring right-sided pleural effusions with previous thoracentesis 4. At this time patient is currently resting comfortably in the intensive care unit. Patient was successfully extubated per protocol currently on IV dopamine and Levophed. INR elevated at 6.5. hemoglobin 6.6. 1 unit PRBCs, 2 units of FFP have been ordered per surgical services INR recheck ordered for noon. Chest x-ray the same showing cardiomegaly with moderate to large right and small sized bilateral pleural effusion collection and/or effusions with mild to moderate central vascular congestion and bibasilar opacities favoring atelectasis along with left-sided chest tubes are redemonstrated. Per surgical services possible plans for Pleurx catheter placement. This time patient is resting comfortably in chair patient remains on high flow oxygen. Blood sugars have remained stable per nursing staff will transition off insulin drip to sliding scale coverage. Cardiology and critical care services are following. On 07/31/2021 patient having intermittent episodes of confusion. INR improving to 2.3. Hemoglobin 7.6. Chest tubes remain in place. Cardiology and critical care services are following. Patient remains on high flow nasal cannula. Current vitals heart rate 80, respiratory rate 16, blood pressure 104/51 On 08/01/2021 patient is more alert currently resting comfortably in chair. Sitter is at bedside. Patient remains on high flow nasal cannula. Patient remains on IV Bumex. Cordis, chest tube and right pigtail catheter all remain in place. On 08/02/2021 patient was seen and examined in the ICU he is alert and oriented 3 in no apparent distress, sitting up in a chair, he is maintained on high flow oxygen, with FiO2 of 45, pulse ox is 93% temperature 97.2 pulse 80 respiration 22 blood pressure 129/46, he denies any fever or chills no headache or dizziness no chest pain no shortness of breath no cough no nausea no vomiting no abdominal pain no diarrhea and no urinary symptoms, chest tube is still in place, he is maintained on Bumex 2 mg IV every 8 hours On 08/03/2021 patient remains in the intensive care unit. Patient is alert and oriented sitting comfortably in chair. Discussed case with surgical team Bumex has been DC'd. Creatinine 2.25 bun 70. Chest tube remains in place. Patient remains on high flow 60%. This time patient denies chest pain or shortness soc[place] th. Patient denies diarrhea. Patient denies any urinary burning or frequency On 08/04/2021 patient was seen and examined, in the ICU, he is alert and oriented 3 in no apparent distress, there is no fever or chills no headache or dizziness no chest pain no shortness of breath no cough no nausea or vomiting no abdominal pain no diarrhea and no urinary symptoms he still has a left sided chest to and he is complaining of discomfort at the site of the 2 he is maintained on oxygen at 8 L nasal cannula his pulse ox is 96% blood pressure 126/62 pulse 63 respiration 24 temperature 97.9 On 08/05/2021 patient was seen and examined in the ICU he is alert and oriented 3 in no apparent distress he is sitting up in a chair he is complaining of discomfort in the left chest at the site of the chest to he is also complaining of pain when coughing otherwise he denies any complaints at this time his vital exam reveals a temperature of 98 pulse 65 respiration 30 blood pressure 136/66 pulse ox 98% on oxygen 3 L nasal cannula, white blood count is 14.4 hemoglobin 8.0 platelet count 192 INR 1.2 BUN 85 creatinine 2.2 On 08/06/2021 patient remains in the intensive care unit. Patient is alert and oriented 3. White blood cell increasing to 15.3 per. Per critical care services will check UA and monitor fever pattern no need for antibiotic treatment at this time. Creatinine 2.53 and bun 89. Nephrology services are following. Current vitals temp 97.6, heart rate 64, pulse ox 94% on 3 L, blood pressure 166/57 Objective - Vital Signs Vital signs: Vital Signs Temp 97.6 F 08/06/21 08:00 Pulse 64 08/06/21 11:00 Resp 18 08/06/21 11:00 BP 126/57 08/06/21 11:00 Pulse Ox 93 L 08/06/21 11:00 Intake & Output 08/05/21 08/06/21 08/06/21 18:59 06:59 18:59 Intake Total 360 0 Output Total 1230 462 495 Balance -870 -462 -495 Weight 71.4 kg Intake: IV 0 0 Pressure Bags 0 0 Oral 360 Output: Drainage 830 [address] 300 230 140 Right Posterior 530 212 180 Urine 400 20 175 Other: Voiding Method Urinal Urinal Urinal # Voids 1 1 0 # Bowel Movements 1 ABP, PAP, CO, CI - Last Documented Arterial Blood Pressure 119/35 Pulmonary Artery Pressure 35/28 Cardiac Output 5 Cardiac Index 2.7 - Exam In general patient is alert and oriented x 3 in no distress HEENT head normocephalic and atraumatic Neck is supple no JVD no goiter no lymphadenopathy no carotid bruit Chest examination reveals a scattered crackles in both lung sousa no wheezing Cardiac exam reveals regular heart sounds S1 and S2 no gallops no murmurs Abdomen is soft nontender no organomegaly with normal bowel sounds Extremity exam reveals no edema no cyanosis or clubbing Neurological examination reveals no gross focal deficits - Labs CBC & Chem 7: 08/06/21 07:17 08/06/21 07:17 Labs: Abnormal Lab Results - Last 24 Hours (Table) 08/05/21 08/05/21 08/05/21 Range/Units 12:12 16:10 20:38 WBC (3.8-10.6) k/uL RBC (4.30-5.90) m/uL Hgb (13.0-17.5) gm/dL Hct (39.0-53.0) % MCV (80.0-100.0) fL RDW (11.5-15.5) % Neutrophils # (1.3-7.7) k/uL Lymphocytes # (1.0-4.8) k/uL PT (9.0-12.0) sec BUN (9-20) mg/dL Creatinine (0.66-1.25) mg/dL Glucose (74-99) mg/dL POC Glucose (mg/dL) 189 H 188 H 167 H (75-99) mg/dL Calcium (8.4-10.2) mg/dL Magnesium (1.6-2.3) mg/dL Total Bilirubin (0.2-1.3) mg/dL Total Protein (6.3-8.2) g/dL Albumin (3.5-5.0) g/dL 08/06/21 08/06/21 08/06/21 Range/Units 06:48 07:17 07:17 WBC 15.3 H (3.8-10.6) k/uL RBC 2.71 L (4.30-5.90) m/uL Hgb 8.6 L (13.0-17.5) gm/dL Hct 27.2 L (39.0-53.0) % MCV 100.3 H (80.0-100.0) fL RDW 19.9 H (11.5-15.5) % Neutrophils # 13.4 H (1.3-7.7) k/uL Lymphocytes # 0.7 L (1.0-4.8) k/uL PT 12.2 H (9.0-12.0) sec BUN (9-20) mg/dL Creatinine (0.66-1.25) mg/dL Glucose (74-99) mg/dL POC Glucose (mg/dL) 146 H (75-99) mg/dL Calcium (8.4-10.2) mg/dL Magnesium (1.6-2.3) mg/dL Total Bilirubin (0.2-1.3) mg/dL Total Protein (6.3-8.2) g/dL Albumin (3.5-5.0) g/dL 08/06/21 Range/Units 07:17 WBC (3.8-10.6) k/uL RBC (4.30-5.90) m/uL Hgb (13.0-17.5) gm/dL Hct (39.0-53.0) % MCV (80.0-100.0) fL RDW (11.5-15.5) % Neutrophils # (1.3-7.7) k/uL Lymphocytes # (1.0-4.8) k/uL PT (9.0-12.0) sec BUN 89 H (9-20) mg/dL Creatinine 2.43 H (0.66-1.25) mg/dL Glucose 132 H (74-99) mg/dL POC Glucose (mg/dL) (75-99) mg/dL Calcium 7.8 L (8.4-10.2) mg/dL Magnesium 2.6 H (1.6-2.3) mg/dL Total Bilirubin 1.7 H (0.2-1.3) mg/dL Total Protein 5.5 L (6.3-8.2) g/dL Albumin 2.9 L (3.5-5.0) g/dL Assessment and Plan Assessment: 1. Status post mitral valve replacement, tricuspid valve repair and single- vessel bypass grafting. Postop day 4 2. Right-sided pleural effusion 3. Coagulopathy. Resolved 4. History of congestive heart failure 5. History of valvular heart disease with previous mitral valve repair with a mitral clip at [facility] 6. History of coronary artery disease 7. History of hyperlipidemia 8. History of renal insufficiency 9. Previous history of atrial fibrillation 10. Leukocytosis White blood cell up to 15.3. Critical care services ordering UA. No need for antibiotics at this time per critical care will continue to monitor Thank you for this consultation we will continue to follow patient closely throughout stay Patient remains in the intensive care unit Repeat labs ordered Patient to be transitioned off IV insulin to sliding scale coverage. A1c 5.8
--- NOTE | 2021-08-06 11:44 | P.PN ---
Subjective Progress Note Date: 08/06/21 This is a 81-year-old female who had mitral valve replacement, tricuspid valve repair in 1 vessel bypass surgery on 328 along with closure of ASD. Patient had mitral valve. In the past for mitral insufficiency. Patient seemed to be relatively stable. He has bilateral pleural chest tube and also pigtail catheters. Denies any significant chest pain or shortness of breath. He seemed to be in paced rhythm. Doesn't appear to be in acute distress. His creatinine is going up. Patient has history of chronic renal failure. Nephrology is consulted. We'll continue current medical therapy. Increase activity as tolerated. Further recommendations depend upon the clinical course. no acute cardiac arrhythmias. 08/05/2021: This patient had replacement of right pleural tube yesterday by radiologist. Still has a left pleural tube for pneumothorax. Patient is complaining of fatigue and tiredness. Complaints of some chest pain. His creatinine has shown some improvement. He is off diuretics. Patient has a pacemaker rhythm with underlying atrial fibrillation. There is a plan to restart Coumadin soon. Otherwise patient is making slow but steady progress. We'll continue rest of the management along with inspiratory spirometry. 08/06/2021: Patient is still has bilateral chest tubes with about 60-80 mL of drainage. He is complaining of being fatigued and tired. His urine output seemed to be on the low side and creatinine is slightly higher. Seen by an a properly who recommended to keep the patient off diuretics. Patient isn't pacer rhythm. Back on Coumadin. Continue rest of the medication and incentive spirometry. Will follow Objective - Vital Signs Vital signs: Vital Signs Temp 97.6 F 08/06/21 08:00 Pulse 64 08/06/21 11:00 Resp 18 08/06/21 11:00 BP 126/57 08/06/21 11:00 Pulse Ox 93 L 08/06/21 11:00 Intake & Output 08/05/21 08/06/21 08/06/21 18:59 06:59 18:59 Intake Total 360 0 Output Total 1230 462 495 Balance -870 -462 -549 Weight 71.4 kg Intake: IV 0 0 Pressure Bags 0 0 Oral 360 Output: Drainage 830 [address] 300 230 140 Right Posterior 530 212 180 Urine 400 20 175 Other: Voiding Method Urinal Urinal Urinal # Voids 1 1 0 # Bowel Movements 1 ABP, PAP, CO, CI - Last Documented Arterial Blood Pressure 119/35 Pulmonary Artery Pressure 35/28 Cardiac Output 5 Cardiac Index 2.7 - Exam GENERAL EXAM: Patient is alert and oriented and doesn't appear to be in any acute distress HEENT: Normocephalic. Normal reaction of pupils, equal size, normal range of extraocular motion. No erythema or exudates in the throat. NECK: No masses, no nuchal rigidity. CHEST: Postsurgical with the chest tubes and catheters LUNGS: Diminished air entry: Bilateral chest tubes present HEART: S1 and S2 normal with no audible mumurs or gallops. Regular rhythm, femorals equal on both sides.. ABDOMEN: No hepatosplenomegaly, normal bowel sounds, no guarding or rigidity. SKIN: No rashes CENTRAL NERVOUS SYSTEM: No focal deficits. EXTREMITIES: No cyanosis, clubbing or edema. - Labs CBC & Chem 7: 08/06/21 07:17 08/06/21 07:17 Labs: Abnormal Lab Results - Last 24 Hours (Table) 08/05/21 08/05/21 08/05/21 Range/Units 12:12 16:10 20:38 WBC (3.8-10.6) k/uL RBC (4.30-5.90) m/uL Hgb (13.0-17.5) gm/dL Hct (39.0-53.0) % MCV (80.0-100.0) fL RDW (11.5-15.5) % Neutrophils # (1.3-7.7) k/uL Lymphocytes # (1.0-4.8) k/uL PT (9.0-12.0) sec BUN (9-20) mg/dL Creatinine (0.66-1.25) mg/dL Glucose (74-99) mg/dL POC Glucose (mg/dL) 189 H 188 H 167 H (75-99) mg/dL Calcium (8.4-10.2) mg/dL Magnesium (1.6-2.3) mg/dL Total Bilirubin (0.2-1.3) mg/dL Total Protein (6.3-8.2) g/dL Albumin (3.5-5.0) g/dL 08/06/21 08/06/21 08/06/21 Range/Units 06:48 07:17 07:17 WBC 15.3 H (3.8-10.6) k/uL RBC 2.71 L (4.30-5.90) m/uL Hgb 8.6 L (13.0-17.5) gm/dL Hct 27.2 L (39.0-53.0) % MCV 100.3 H (80.0-100.0) fL RDW 19.9 H (11.5-15.5) % Neutrophils # 13.4 H (1.3-7.7) k/uL Lymphocytes # 0.7 L (1.0-4.8) k/uL PT 12.2 H (9.0-12.0) sec BUN (9-20) mg/dL Creatinine (0.66-1.25) mg/dL Glucose (74-99) mg/dL POC Glucose (mg/dL) 146 H (75-99) mg/dL Calcium (8.4-10.2) mg/dL Magnesium (1.6-2.3) mg/dL Total Bilirubin (0.2-1.3) mg/dL Total Protein (6.3-8.2) g/dL Albumin (3.5-5.0) g/dL 08/06/21 Range/Units 07:17 WBC (3.8-10.6) k/uL RBC (4.30-5.90) m/uL Hgb (13.0-17.5) gm/dL Hct (39.0-53.0) % MCV (80.0-100.0) fL RDW (11.5-15.5) % Neutrophils # (1.3-7.7) k/uL Lymphocytes # (1.0-4.8) k/uL PT (9.0-12.0) sec BUN 89 H (9-20) mg/dL Creatinine 2.43 H (0.66-1.25) mg/dL Glucose 132 H (74-99) mg/dL POC Glucose (mg/dL) (75-99) mg/dL Calcium 7.8 L (8.4-10.2) mg/dL Magnesium 2.6 H (1.6-2.3) mg/dL Total Bilirubin 1.7 H (0.2-1.3) mg/dL Total Protein 5.5 L (6.3-8.2) g/dL Albumin 2.9 L (3.5-5.0) g/dL Assessment and Plan (1) Status post mitral valve replacement Current Visit: Yes Status: Acute Code(s): Z95.2 - PRESENCE OF PROSTHETIC HEART VALVE SNOMED Code(s): 6342357558569 (2) Status post single vessel coronary artery bypass Current Visit: Yes Status: Acute Code(s): Z95.1 - PRESENCE OF AORTOCORONARY BYPASS GRAFT SNOMED Code(s): 957095624 (3) Pleural effusion Current Visit: No Status: Acute Code(s): J90 - PLEURAL EFFUSION, NOT ELSEWHERE CLASSIFIED SNOMED Code(s): 68678983 (4) Acute on chronic renal failure Current Visit: Yes Status: Acute Code(s): N17.9 - ACUTE KIDNEY FAILURE, UNSPECIFIED; N18.9 - CHRONIC KIDNEY DISEASE, UNSPECIFIED SNOMED Code(s): 316658926 (5) Chronic a-fib Current Visit: No Status: Acute Code(s): I48.2 - CHRONIC ATRIAL FIBRILLATION * DO NOT USE * SNOMED Code(s): 894452166 (6) Presence of permanent cardiac pacemaker Current Visit: Yes Status: Acute Code(s): Z95.0 - PRESENCE OF CARDIAC PACEMAKER SNOMED Code(s): 255285011 Plan: Patient is relatively stable. Having issues with the renal failure with creatinine up to 2.6. Being followed by an of probably. Chest tubes are still the. Patient is in pacemaker rhythm. His blood pressure is reasonably controlled. We'll follow
[2021-08-06 12:33] LABS: Glucose,Whole Blood 226 mg/dL (75-99)
--- NOTE | 2021-08-06 13:03 | P.PN ---
Subjective Progress Note Date: 08/06/21 Principal diagnosis: Mitral valve regurgitation, tricuspid valve regurgitation, and coronary artery disease. Past medical history significant for coronary artery disease with prev ious myocardial infarction and PCI, hypertension, hyperlipidemia, chronic persistent atrial fibrillation on Coumadin for anticoagulation as an outpatient, status post cardioversion, sick sinus syndrome, status post [facility] permanent pacemaker placement in 2017, chronic systolic heart failure, atrial septal defect status post closure, history of MitraClip in 2019, chronic renal insufficiency, remote history of tobacco dependence, restrictive lung disease, obstructive sleep apnea, recurrent right pleural effusions with history of 4 previous thoracentesis, remote history of pneumonia, and a family history of premature coronary artery disease. Preoperative nasal screening positive for MSSA, treated. POD #9 mitral valve replacement with 31 mm Mosaic porcine valve prosthesis, tricuspid valve repair with 30 mm MC3 band, coronary artery bypass grafting 1 with reverse greater saphenous vein graft to the obtuse marginal coronary artery, endovascular vein harvest of the left greater saphenous vein, epi-aortic ultrasound, closure of the left atrial appendage, closure of atrial septal defect. Postoperative acute blood loss anemia and thrombocytopenia, expected given hemodilution and cardiopulmonary bypass pump. Coagulopathy, unexpected, last coumadin dose was on 07/22/21. Right pleural effusion, expected due to his history of preoperative right pleural effusion with history of 4 previous thoracentesis. Status post placement of right-sided pigtail catheter by interventional radiology. The patient was seen in follow-up today 08/06/2021 at his bedside in the intensive care unit. Currently the patient is sitting up to the bedside chair, is awake, alert, oriented 3 and is in no acute apparent distress. Denies any complaints of pain or shortness of breath at this time. The patient is currently eating breakfast and is continuing to complain of a sore mouth with thrush present to his tongue this a.m. Oxygen saturations are 100% on 4 L nasal cannula and he is achieving 1000 mL on his incentive spirometry with encouragement. Bedside telemetry showing paced rhythm heart rate 60 BPM. He remains hemodynamically stable and is currently on no inotropic or pressor support. The patient ambulated in the intensive care unit hallway yesterday 3 with standby assistance from nursing and therapy staff. Right chest pigtail catheter remains in place to low continuous wall suction -20 cm H2O. No air leak is present. Draining thin serosanguineous drainage with 170 mL output in the last 8 hours and 600 mL output in the last 24 hours. Left pleural chest tube is in place to low continuous wall suction -20 cm H2O. No air leak is present. Draining thin serosanguineous drainage with 210 mL output last 8 hours and 550 mL output in the last 24 hours. The patient remains afebrile last 24 hours. Laboratory results this morning show a WBC count of 15.3, hemoglobin 8.6, platelets 224, PT 12.2, INR 1.1, sodium 139, potassium 4.2, BUN 89, creatinine 2.43, calcium 7.8, and magnesium 2.6. Chest x-ray this morning shows small bilateral pleural effusions with left and right pleural tubes remaining in place. Objective - Vital Signs Vital signs: Vital Signs Temp 97.5 F L 08/06/21 04:00 Pulse 61 08/06/21 07:00 Resp 21 08/06/21 07:00 BP 114/64 08/06/21 07:00 Pulse Ox 96 08/06/21 07:00 Intake & Output 08/05/21 08/06/21 08/06/21 18:59 06:59 18:59 Intake Total 360 0 Output Total 1230 462 0 Balance -870 -462 0 Weight 71.4 kg Intake: IV 0 0 Pressure Bags 0 0 Oral 360 Output: Drainage [address] 300 230 Right Posterior 530 212 Urine 400 20 0 Other: Voiding Method Urinal Urinal # Voids 1 1 0 # Bowel Movements 1 ABP, PAP, CO, CI - Last Documented Arterial Blood Pressure 119/35 Pulmonary Artery Pressure 35/28 Cardiac Output 5 Cardiac Index 2.7 - Exam CONSTITUTIONAL: Sitting up to the bedside chair in the intensive care unit, appears comfortable, cooperative, and is in no apparent acute distress. HEENT: Neck is supple, no JVD, no lymphadenopathy. Thrush to his tongue. RESPIRATORY: Lungs sounds essentially clear throughout, diminished to his bilateral bases. Respirations are symmetrical and nonlabored. Currently on 4 L nasal cannula, oxygen saturations 100%. Able to achieve 1000 mL on his incentive spirometry. Strong cough. CARDIOVASCULAR: Regular rhythm and rate. S1 and S2 present, negative for S3, gallop or murmur. Sternum is stable. Palpable peripheral pulses bilaterally. No calf pain or tenderness noted. Heart hugger in place with patient demonstrating appropriate use with encouragement. Knee-high SUMI hose and sequential compression devices in place to his bilateral lower extremities. Bedside telemetry showing paced rhythm at 60 BPM. +1 edema to his bilateral lower extremities. GASTROINTESTINAL: Abdomen soft, nontender, and slightly distended. Active bowel sounds present 4 quadrants. Tolerating diet. No guarding or rigidity. Bowel movement yesterday 08/05/2021. GENITOURINARY: Continues to void. INTEGUMENTARY: Skin is warm and dry with no evidence of clubbing or cyanosis. Midline sternal incision clean dry and well approximated, covered with dry intact dressing. Left lower extremity EVH site well approximated without redness or drainage. NEUROLOGIC: Cranial nerves II through XII intact. No focal deficits. MUSKULOSKELETAL: Able to move all extremities, strength equal bilaterally, generalized weakness. PSYCHIATRIC: Alert and oriented 3, appropriate affect. INVASIVE LINES AND TUBES: Right pleural pigtail catheter is in place to low continuous wall suction at -20 cm H2O. No air leak is present. Draining thin serosanguineous drainage with 170 mL output in the last 8 hours and 600 mL output in the last 24 hours. Left pleural chest tube in place to low continuous wall suction -20 cm H2O. No air leak is present. Draining thin serosanguineous drainage with 210 mL output in the last 8 hours and 550 mL output in the last 24 hours. - Allied health notes Allied health notes reviewed: nursing - Labs CBC & Chem 7: 08/06/21 07:17 08/06/21 07:17 Labs: Abnormal Lab Results - Last 24 Hours (Table) 08/05/21 08/05/21 08/05/21 Range/Units 06:24 12:12 16:10 WBC 14.4 H (3.8-10.6) k/uL Neutrophils # (Manual) 13.10 H (1.3-7.7) k/uL Lymphocytes # (Manual) 0.29 L (1.0-4.8) k/uL Monocytes # (Manual) 1.01 H (0-1.0) k/uL Nucleated RBCs 1 H (0-0) /100 WBC POC Glucose (mg/dL) 189 H 188 H (75-99) mg/dL 08/05/21 08/06/21 Range/Units 20:38 06:48 WBC (3.8-10.6) k/uL Neutrophils # (Manual) (1.3-7.7) k/uL Lymphocytes # (Manual) (1.0-4.8) k/uL Monocytes # (Manual) (0-1.0) k/uL Nucleated RBCs (0-0) /100 WBC POC Glucose (mg/dL) 167 H 146 H (75-99) mg/dL - Imaging and Cardiology Chest x-ray: report reviewed, image reviewed Assessment and Plan Assessment: 1. Mitral valve regurgitation, history of MitraClip in 2019, status post post mitral valve replacement 2. Tricuspid valve regurgitation, status post tricuspid valve repair 3. Coronary artery disease with previous myocardial infarction and PCI, status post 1 vessel CABG 4. History of hypertension, currently hypotensive on levo and dopamine 5. Chronic atrial fibrillation on Coumadin for anticoagulation status post cardioversion, status post closure of the left atrial appendage 6. Sick sinus syndrome status post [facility] permanent pacemaker placement in 2016 7. Chronic systolic heart failure 8. Atrial septal defect status post closure 9. Chronic kidney disease stage IIIB with a baseline creatinine of 1.6-1.7 10. Previous tobacco dependence 11. Severe restrictive lung disease, preoperative FEV1 47% of predicted 12. Recurrent right-sided pleural effusion, patient had right sided thoracentesis twice in 2019 and twice in 2020, status post right chest pigtail catheter placement by interventional radiology 13. Obstructive sleep apnea 14. Remote history of pneumonia 15. Family history of premature coronary artery disease 16. Postoperative acute blood loss anemia and thrombocytopenia, expected 17. Coagulopathy, resolved Plan: 1. Continue low-dose aspirin, heparin subcu, and statin. 2. Coumadin 1 mg by mouth was started yesterday 08/05/2021. Continue to monitor daily PT and INRs for Coumadin dosing. Coumadin 1 mg by mouth today. 3. Wean O2 as tolerated. Encourage incentive spirometry use 10 times every hour while awake. Bronchodilators per pulmonology. 4. Increase activity as tolerated. PT/OT/cardiac rehab following. 5. Will monitor daily labs and chest x-rays. 6. GI/DVT prophylaxis. 7. Insulin management per primary care service. Patient is not diabetic, preoperative hemoglobin A1c 5.8% 8. Pain control current medication regimen. 9. Continue left pleural chest tube and right pleural pigtail catheter to low continuous wall suction -20 cm of H2O. Continue to record strict accurate I's and O's. 10. Continue to record strict accurate intake and output. Daily weights. Bladder scan every 6 hours and when necessary. If greater than 300 mL of urine may straight cath. 11. Encourage nutrition along with nutritional supplements. 12. Send urinalysis with reflex culture as his WBC count is trending up. The patient remained afebrile. 13. Nystatin swish and swallow was started for thrush. 14. More recommendations to follow based on patient's clinical course. Time with Patient: Greater than 30
[2021-08-06 16:44] LABS: Glucose,Whole Blood 194 mg/dL (75-99)
[2021-08-06] MEDS ORDERED: WARFARIN 1 MG TAB PO ONE (18:00)
[2021-08-06 20:37] LABS: Glucose,Whole Blood 190 mg/dL (75-99)
[2021-08-06] MEDS: CALCIUM ACETATE 667 MG TAB PO SCH (20:45)
[2021-08-06] MEDS: ATORVASTATIN 40 MG TAB PO SCH (20:45)
[2021-08-06] MEDS: MELATONIN 3 MG TABLET PO SCH (20:45)
[2021-08-06] MEDS: guaiFENesin 600 MG TABLET.ER PO SCH (20:45)
[2021-08-07] MEDS: HEPARIN SODIUM,PORCINE/PF 5,000 UNIT/0.5 ML SYRINGE SQ SCH ×4 (00:31→23:30)
[2021-08-07 05:12] LABS: Anisocytosis Slight; Basophils % (A) 0 %; Eosinophils # (A) 0.1 k/uL (0-0.7); Eosinophils % (A) 1 %; HGB 8.6 gm/dL (13.0-17.5); Hypochromasia Marked; Lymphocytes # (A) 0.8 k/uL (1.0-4.8); Lymphocytes % (A) 4 %; MCH 31.1 pg (25.0-35.0); MCHC 30.6 g/dL (31.0-37.0); MCV 101.9 fL (80.0-100.0); Macrocytosis Moderate; Monocytes # (A) 0.9 k/uL (0-1.0); Monocytes % (A) 5 %; Neutrophils # (A) 16.3 k/uL (1.3-7.7); Neutrophils % (A) 88 %; Platelet Count 249 k/uL (150-450); Poikilocytosis Slight; RBC 2.75 m/uL (4.30-5.90); WBC 18.5 k/uL (3.8-10.6)
[2021-08-07 05:47] LABS: Calcium 8.1 mg/dL (8.4-10.2); INR 1.1 (<1.2); Potassium 4.4 mmol/L (3.5-5.1); Total Bilirubin 1.5 mg/dL (0.2-1.3); Total Protein 5.6 g/dL (6.3-8.2)
[2021-08-07 06:16] LABS: Glucose,Whole Blood 164 mg/dL (75-99)
[2021-08-07] MEDS: PANTOPRAZOLE 40 MG TABLET PO SCH (06:30)
[2021-08-07] MEDS: INSULIN ASPART (NovoLOG) 100 UNIT/ML VIAL SQ SCH ×4 (06:30→20:23)
[2021-08-07] MEDS: IPRATROPIUM-ALBUTEROL 3 ML NEB INHALATION SCH ×4 (07:47→19:02)
--- NOTE | 2021-08-07 07:47 | XR ---
EXAMINATION TYPE: XR chest 1V portable DATE OF EXAM: 08/07/2021 COMPARISON: Chest x-ray 08/06/2021 HISTORY: Chest tube, postop TECHNIQUE: Single frontal view of the chest is obtained. FINDINGS: Left-sided chest tube is in place with a minimal left apical pneumothorax. Pigtail cathete r present in the posterior pleural space on the right with blunting the right costophrenic angle, abn ormal attenuation at the right lung base similar to prior exam, no evident right-sided pneumothorax. Heart is enlarged. Pacemaker is stable, patient is post median sternotomy and cardiac valve replaceme nt. There are overlying leads. IMPRESSION: Findings are similar to prior exam. Small left apical pneumothorax, persistent right ple ural effusion, possible associated atelectasis, difficult to exclude pneumonia vs edema.
--- NOTE | 2021-08-07 08:20 | P.PN ---
Subjective Progress Note Date: 08/07/21 Principal diagnosis: Mitral valve regurgitation, tricuspid valve regurgitation, coronary artery disease. Previous medical history of CAD with previous cardial infarction and PCI, hypertension, chronic atrial fibrillation on Coumadin for anticoagulation status post cardioversion, sick sinus syndrome [facility] [facility] permanent pacemaker placement in 2017, chronic systolic heart failure, atrial septal defect status post closure, previous MitraClip in 2019, chronic renal insufficiency, previous tobacco dependence, severe restrictive lung disease, obstructive sleep apnea, recurrent right-sided pleural effusio with previous thoracentesis x 4, remote history of pneumonia, family history of premature coronary artery disease POD #10 mitral valve replacement with 31 mm Mosaic porcine valve prosthesis, tricuspid valve repair with 30 mm MC3 band, coronary artery bypass grafting 1 with reverse saphenous vein graft to the obtuse marginal artery, endovascular vein harvest of the left greater saphenous vein, epi-aortic ultrasound, closure of the left atrial appendage, closure of ASD Postoperative acute blood loss anemia and thrombocytopenia, expected given hemodilution and cardiopulmonary bypass pump Coagulopathy, unexpected, last coumadin dose 07/22/21 Right-sided pleural effusion, expected given history of previous right-sided effusion with thoracentesis 4, status post right-sided pigtail catheter placement by interventional radiology Leukocytosis, unknown source, afebrile, procalcitonin 1.28 The patient was seen and examined this morning sitting up in a recliner in the intensive care unit in no acute distress eating breakfast. He denies any pain or shortness of breath. Currently on 3 L nasal cannula, achieving 1000 mL on his incentive spirometry. Remains ventricular paced. Labs and x-rays reviewed this morning. Left pleural chest tube and right pigtail catheter remain with large serous output. Patient consuming minimal food due to mouth pain, was started on nystatin oral rinse yesterday. Urine output marginal. Labs and x- rays reviewed, WBC 18.5 this morning, was 15.3 yesterday. Urine/sputum/blood cultures sent yesterday. Objective - Vital Signs Vital signs: Vital Signs Temp 97.9 F 08/07/21 04:00 Pulse 67 08/07/21 08:00 Resp 50 H 08/07/21 07:00 BP 116/30 08/07/21 07:00 Pulse Ox 100 08/07/21 07:51 Intake & Output 08/06/21 08/07/21 08/07/21 18:59 06:59 18:59 Intake Total 250 250 Output Total 785 665 0 Balance -785 -415 250 Weight 75.5 kg Intake: Oral 250 250 Output: Drainage [address] 220 100 Right Posterior 390 100 Urine 175 365 0 Stool 100 Other: Voiding Method Urinal Urinal # Voids 0 0 0 # Bowel Movements 1 ABP, PAP, CO, CI - Last Documented Arterial Blood Pressure 119/35 Pulmonary Artery Pressure 35/28 Cardiac Output 5 Cardiac Index 2.7 - Exam CONSTITUTIONAL: Appears comfortable, cooperative, no acute distress RESPIRATORY: Lungs sounds diminished bilaterally. Respirations even, nonlabored. Currently on 3 L nasal cannula with oxygen saturation 98%. Able to achieve 1000 mL on incentive spirometry. Strong cough. CARDIOVASCULAR: S1, S2 present. Ventricular paced on telemetry. Sternum stable. Palpable peripheral pulses bilaterally. No edema present. No calf pain or tenderness noted. Heart hugger in place with patient demonstrating appropriate use. Antiembolism stockings, SCDs present. GASTROINTESTINAL: Abdomen soft, nontender, slightly distended. Active bowel sounds present 4 quadrants. Tolerating minimal diet. Positive bowel movement this morning GENITOURINARY: Continues to void, 540 mL in the last 24 hours INTEGUMENTARY: Skin is warm and dry with evidence of good perfusion. Anterior chest incision well approximated and covered with dry intact dressing. Left lower extremity EVH site well approximated without redness or drainage. NEUROLOGIC: Cranial nerves II through XII intact MUSKULOSKELETAL: Able to move all extremities, strength equal bilaterally but generalized weakness present PSYCHIATRIC: Oriented to person place and time INVASIVE LINES AND TUBES: Right pigtail/left pleural chest tube present and connected to wall suction, no air leaks present. Left pleural chest tube with 100 mL serous drainage overnight, 450 mL in the last 24 hours. Right-sided pigtail catheter with 100 mL serous drainage overnight, 700 mL the last 24 hours. - Allied health notes Allied health notes reviewed: nursing - Labs CBC & Chem 7: 08/07/21 04:17 08/07/21 04:17 Labs: Abnormal Lab Results - Last 24 Hours (Table) 08/06/21 08/06/21 08/06/21 Range/Units 07:17 07:17 10:55 WBC (3.8-10.6) k/uL RBC (4.30-5.90) m/uL Hgb (13.0-17.5) gm/dL Hct (39.0-53.0) % MCV (80.0-100.0) fL MCHC (31.0-37.0) g/dL RDW (11.5-15.5) % Neutrophils # (1.3-7.7) k/uL Lymphocytes # (1.0-4.8) k/uL Sodium (137-145) mmol/L Carbon Dioxide (22-30) mmol/L BUN 89 H (9-20) mg/dL Creatinine 2.43 H (0.66-1.25) mg/dL Glucose 132 H (74-99) mg/dL POC Glucose (mg/dL) (75-99) mg/dL Calcium 7.8 L (8.4-10.2) mg/dL Magnesium 2.6 H (1.6-2.3) mg/dL Total Bilirubin 1.7 H (0.2-1.3) mg/dL Total Protein 5.5 L (6.3-8.2) g/dL Albumin 2.9 L (3.5-5.0) g/dL Procalcitonin 1.28 H (0.02-0.09) ng/mL Urine Protein 1+ H (Negative) Urine Blood Large H (Negative) Ur Leukocyte Esterase Trace H (Negative) Urine WBC 11 H (0-5) /hpf Amorphous Sediment Moderate H (None) /hpf Urine Bacteria Occasional H (None) /hpf Hyaline Casts 11 H (0-2) /lpf 08/06/21 08/06/21 08/06/21 Range/Units 12:32 16:41 20:37 WBC (3.8-10.6) k/uL RBC (4.30-5.90) m/uL Hgb (13.0-17.5) gm/dL Hct (39.0-53.0) % MCV (80.0-100.0) fL MCHC (31.0-37.0) g/dL RDW (11.5-15.5) % Neutrophils # (1.3-7.7) k/uL Lymphocytes # (1.0-4.8) k/uL Sodium (137-145) mmol/L Carbon Dioxide (22-30) mmol/L BUN (9-20) mg/dL Creatinine (0.66-1.25) mg/dL Glucose (74-99) mg/dL POC Glucose (mg/dL) 226 H 194 H 190 H (75-99) mg/dL Calcium (8.4-10.2) mg/dL Magnesium (1.6-2.3) mg/dL Total Bilirubin (0.2-1.3) mg/dL Total Protein (6.3-8.2) g/dL Albumin (3.5-5.0) g/dL Procalcitonin (0.02-0.09) ng/mL Urine Protein (Negative) Urine Blood (Negative) Ur Leukocyte Esterase (Negative) Urine WBC (0-5) /hpf Amorphous Sediment (None) /hpf Urine Bacteria (None) /hpf Hyaline Casts (0-2) /lpf 08/07/21 08/07/21 08/07/21 Range/Units 04:17 04:17 06:13 WBC 18.5 H (3.8-10.6) k/uL RBC 2.75 L (4.30-5.90) m/uL Hgb 8.6 L (13.0-17.5) gm/dL Hct 28.0 L (39.0-53.0) % MCV 101.9 H (80.0-100.0) fL MCHC 30.6 L (31.0-37.0) g/dL RDW 20.0 H (11.5-15.5) % Neutrophils # 16.3 H (1.3-7.7) k/uL Lymphocytes # 0.8 L (1.0-4.8) k/uL Sodium 135 L (137-145) mmol/L Carbon Dioxide 18 L (22-30) mmol/L BUN 99 H (9-20) mg/dL Creatinine 2.38 H (0.66-1.25) mg/dL Glucose 161 H (74-99) mg/dL POC Glucose (mg/dL) 164 H (75-99) mg/dL Calcium 8.1 L (8.4-10.2) mg/dL Magnesium (1.6-2.3) mg/dL Total Bilirubin 1.5 H (0.2-1.3) mg/dL Total Protein 5.6 L (6.3-8.2) g/dL Albumin 3.0 L (3.5-5.0) g/dL Procalcitonin (0.02-0.09) ng/mL Urine Protein (Negative) Urine Blood (Negative) Ur Leukocyte Esterase (Negative) Urine WBC (0-5) /hpf Amorphous Sediment (None) /hpf Urine Bacteria (None) /hpf Hyaline Casts (0-2) /lpf Microbiology - Last 24 Hours (Table) 08/06/21 10:55 Urine Culture - Preliminary Urine,Voided - Imaging and Cardiology Chest x-ray: report reviewed, image reviewed Assessment and Plan Assessment: 1. Mitral valve regurgitation, previous MitraClip in 2019, status post post mitral valve replacement 2. Tricuspid valve regurgitation, status post tricuspid valve repair 3. Coronary artery disease with previous myocardial infarction and PCI, status post 1 vessel CABG 4. History of hypertension 5. Chronic atrial fibrillation on Coumadin for anticoagulation status post cardioversion, status post closure of the left atrial appendage 6. Sick sinus syndrome status post [facility] [facility] permanent pacemaker placement in 2016 7. Chronic systolic heart failure 8. Atrial septal defect status post closure 9. Acute on chronic renal insufficiency stage IIIB, baseline creatinine 1.6-1.7 10. Previous tobacco dependence 11. Severe restrictive lung disease, preoperative FEV1 47% of predicted 12. Recurrent right-sided pleural effusion, patient had right sided thoracentesis twice in 2019 and twice in 2020, status post right-sided pigtail catheter placement by IR 13. Obstructive sleep apnea 14. Remote history of pneumonia 15. Family history of premature coronary artery disease 16. Postoperative acute blood loss anemia and thrombocytopenia, expected 17. Coagulopathy, unexpected 18. Leukocytosis, elevated pro-calcitonin, afebrile, unknown source Plan: 1. Continue low-dose aspirin, statin 2. Continue Coumadin per home dose, we'll monitor daily PT/INR 3. Wean O2 as tolerated. Encourage incentive spirometry use 10 times every hour while awake. Bronchodilators per pulmonology. 4. Increase activity as tolerated. PT/OT/cardiac rehab following 5. Will monitor daily labs and x-rays. Urine/blood/sputum culture sent, pending 6. GI/DVT prophylaxis 7. Insulin management per primary care service. Patient is not diabetic, preoperative hemoglobin A1c 5.8% 8. Pain control per current medication regimen. Avoid narcotics 9. Continue left pleural chest tube and right pigtail catheter. May need right sided pleurx before discharge 10. Strict accurate intake and output. Daily weights 11. Encourage oral intake, encourage supplements to improve nutrition. Continue nystatin oral rinse 12. Discharge planning in progress. Anticipate discharge to [facility] once able to remove chest tubes 13. More recommendations to follow based on patient's progress
[2021-08-07 09:20] LABS: Amylase 115 U/L (30-110); Lipase 429 U/L (23-300)
[2021-08-07] MEDS: FERROUS SULFATE 325 MG TAB PO SCH (09:24)
[2021-08-07] MEDS: NYSTATIN 100,000 UNIT/ML SUSP 500,000 UNIT/5 ML CUP PO SCH ×4 (09:24→22:03)
[2021-08-07] MEDS: FOLIC ACID 1 MG TAB PO SCH (09:24)
[2021-08-07] MEDS: ASCORBIC ACID 500 MG TAB PO SCH (09:25)
[2021-08-07] MEDS: ASPIRIN 81 MG PO SCH (09:25)
[2021-08-07] MEDS: allopurinoL 100 MG TAB PO SCH (09:25)
[2021-08-07] MEDS: guaiFENesin 600 MG TABLET.ER PO SCH ×2 (09:26→20:22)
--- NOTE | 2021-08-07 10:58 | P.PN ---
Subjective Progress Note Date: 08/07/21 This is a very pleasant 81-year-old male patient is being seen in follow-up. The patient is postop day #7. 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 Note that the patient had a preoperative right-sided pleural effusion along with various other medical problems and comorbidities. Postop, the patient becomes hypoxic and short of breath post extubation. He was on high flow oxygen. The right-sided pleural effusion was noted and at that point a pigtail catheter was inserted into the right hemithorax. The catheter was inserted and the patient was having adequate drainage for the past 48 hours and since yesterday, there has been no output. The patient continues to have a left-sided chest tube and output has been around 400 mL over the past 8-12 hours. The patient is using incentive spirometer. The patient is currently on 8 L of oxygen by nasal cannula with a pulse oximetry 96%. The patient is pulling approximately 1000 on his incentive spirometer. His cardiac rhythm is basically rate of 60. The patient is hemodynamically stable and the patient is on no pressors at this point in time. He doesn't component of chronic kidney disease. The BUN is at 76 with a creatinine of 2.36. Potassium level is at 3.7 with a sodium level of 137. Hemoglobin is at 7.8 with a platelet count 234. A repeat chest x-ray was done and it showed cardiomegaly, a loculated right-sided pleural effusion, impacted on the right, and a chest tube on the left and post thoracotomy changes in the mid sternal area. The patient has chronic kidney disease, obstructive sleep apnea, he has undergone previous thoracenteses regarding the right-sided pleural effusion and pleural fluid cytology has been essentially negative for malignancy. He is awake and alert and following commands and answering questions appropriately. On today's evaluation of 08/05/2021, I'm seeing the patient in the follow-up. The patient is postop day #8. Noted the patient continues to have drainage from the chest tube. The chest tube on the left has drained approximately 600 mL total since 24 hours and 200 mL over the past 8 hours. Note that the patient also has a new pigtail catheter inserted by interventional radiology and immediately after insertion, a total of 900 mL of fluid was aspirated and the patient has put out another 600 mL over the past 8 hours. As such, the output remains considerably high. Meanwhile, the chest x-ray from today showing improvement in the volume status and improvement in the right-sided pleural effusion. No localization at this point in time. Pigtail catheter is in a good location. The patient remains on 3 L of O2 nasal cannula. White cell count is 14.5 with hemoglobin 8.2 and a platelet count of 192. Sodium is at 139 with a potassium level of 3.9 and a BUN of 85 with a creatinine of 2.2 and the creatinine is stable for now. Patient continues to use incentive spirometer. The patient has a pacemaker in place and the cardiac rhythmat this point in time. Sternal wound is dry clean and intact. The patient is afebrile. The patient is hemodynamically stable at this point in time. No nausea. No vomiting. Abdomen is slightly distended and the patient may have some partial ileus. Nevertheless, his passing gas and he is also having regular bowel movements. On 08/06/2021, the patient is being seen for a follow-up and the patient is postop day #9. On today's evaluation, the patient is sitting up on a chair. He did ambulate yesterday for a total of 3 times. Using incentive spirometer and pulling approximately 1200 mL on dialysis. The patient continues to have a left-sided chest tube and the total amount of output over the past 24 hours has been in the order of 550 mL an over the past 8 hours has been 210 mL. The patient also has a pigtail catheter on the right and the total amount of output has been 600 mL over the past 24 hours and 150 mL over the past 8 hours. The chest x-ray from today shows residual bilateral pleural effusion right more than left. There is some cardiomegaly. Chest tubes remains in a good location. No evidence of any air leak and the Pleur-evac on the left. Otherwise, the patient is doing well. No significant respiratory distress and the patient remains on 2 L of O2 by nasal cannula and the blood work from today shows a white cell count of 15.3 which is concerning at this number is on the right and hemoglobin of 8.6. Correlation profile is within normal. BUN is 89 with a creatinine of 2.4 and the patient is known to have chronic kidney disease. Creatinine yesterday was 2.2. The rest of the electrodes are all within normal limits. On 08/07/2021, I'm seeing the patient for a follow-up. The patient is still having excessive output from the chest tubes. The left-sided chest tube has drained approximately 530 mL over the past 24 hours in the right-sided chest tube is draining around 1200 mL over the past 24 hours. As such, the chest tubes are going to stay in place. There is a small left apical pneumothorax. Incentive spirometer is being used on the patient's pulling approximately tho usand. Of concern also is the rise in the white cell count which is up to 18. The pro-Level Was 1.28. The Patient Has Chronic Kidney Disease. No Fever. Cultures Were Sent and Was Awaiting for Final Results. Meanwhile, the patient's white cell count is 18 with hemoglobin of 8.6 and a BUN is at 99 with a creatinine of 2.3 and his sodium level is at 135. Moving all 4 extremity is without any limitation. No altered mentation. Sternum stable clean and intact. No chest pain. Abdomen is slightly distended. No diarrhea. He did have a small bowel movement today. Serum bicarb is down to 18 the patient is going to be started on oral bicarbonate replacement. The patient remains on oxygen at 3 L per minute nasal cannula. Objective - Vital Signs Vital signs: Vital Signs Temp 97.8 F 08/07/21 09:00 Pulse 67 08/07/21 09:00 Resp 24 08/07/21 09:00 BP 126/54 08/07/21 09:00 Pulse Ox 96 08/07/21 09:00 Intake & Output 08/06/21 08/07/21 08/07/21 18:59 06:59 18:59 Intake Total 250 490 Output Total 785 665 195 Balance -785 -415 295 Weight 75.5 kg Intake: Oral 250 490 Output: Drainage [address] 220 100 35 Right Posterior 390 100 160 Urine 175 365 0 Stool 100 Other: Voiding Method Urinal Urinal # Voids 0 0 100 # Bowel Movements 1 1 ABP, PAP, CO, CI - Last Documented Arterial Blood Pressure 119/35 Pulmonary Artery Pressure 35/28 Cardiac Output 5 Cardiac Index 2.7 - Exam CONSTITUTIONAL: Sitting up to the bedside chair in the intensive care unit, appears comfortable, cooperative, and is in no apparent acute distress. HEENT: Neck is supple, no JVD, no lymphadenopathy. RESPIRATORY: Lungs sounds essentially clear throughout, diminished to his bilateral bases, right greater than left. Scattered wheezes and rhonchi. Respirations are symmetrical and nonlabored. Currently on 2 L high flow nasal cannula, oxygen saturations 96%. Able to achieve more than 1000 MLS on the incentive spirometer. CARDIOVASCULAR: Regular rhythm and rate. S1 and S2 present, negative for S3, gallop or murmur. Sternum is stable. Palpable peripheral pulses bilaterally. No calf pain or tenderness noted. Heart hugger in place with patient demonstrating appropriate use with encouragement. Knee-high SUMI hose and sequential compression devices in place to his bilateral lower extremities. Bedside telemetry showing paced rhythm at 60 BPM. GASTROINTESTINAL: Abdomen soft, nontender, distended. Active bowel sounds present 4 quadrants. Tolerating diet. No guarding or rigidity. Bowel movement 2 in the last 24 hours. The abdomen is slightly distended and tympanic at this point in time. GENITOURINARY: Continues to void. Urine output is adequate for now. INTEGUMENTARY: Skin is warm and dry with no evidence of clubbing or cyanosis. Midline sternal incision clean dry and well approximated, covered with dry intact dressing. Left lower extremity EVH site well approximated without redness or drainage. NEUROLOGIC: Cranial nerves II through XII intact. No focal deficits. MUSKULOSKELETAL: Able to move all extremities, strength equal bilaterally, generalized weakness. PSYCHIATRIC: Alert and oriented 3, appropriate affect. - Labs CBC & Chem 7: 08/07/21 04:17 08/07/21 04:17 Labs: Abnormal Lab Results - Last 24 Hours (Table) 08/06/21 08/06/21 08/06/21 Range/Units 07:17 10:55 12:32 WBC (3.8-10.6) k/uL RBC (4.30-5.90) m/uL Hgb (13.0-17.5) gm/dL Hct (39.0-53.0) % MCV (80.0-100.0) fL MCHC (31.0-37.0) g/dL RDW (11.5-15.5) % Neutrophils # (1.3-7.7) k/uL Lymphocytes # (1.0-4.8) k/uL Sodium (137-145) mmol/L Carbon Dioxide (22-30) mmol/L BUN (9-20) mg/dL Creatinine (0.66-1.25) mg/dL Glucose (74-99) mg/dL POC Glucose (mg/dL) 226 H (75-99) mg/dL Calcium (8.4-10.2) mg/dL Total Bilirubin (0.2-1.3) mg/dL Total Protein (6.3-8.2) g/dL Albumin (3.5-5.0) g/dL Amylase (30-110) U/L Lipase (23-300) U/L Procalcitonin 1.28 H (0.02-0.09) ng/mL Urine Protein 1+ H (Negative) Urine Blood Large H (Negative) Ur Leukocyte Esterase Trace H (Negative) Urine WBC 11 H (0-5) /hpf Amorphous Sediment Moderate H (None) /hpf Urine Bacteria Occasional H (None) /hpf Hyaline Casts 11 H (0-2) /lpf 08/06/21 08/06/21 08/07/21 Range/Units 16:41 20:37 04:17 WBC 18.5 H (3.8-10.6) k/uL RBC 2.75 L (4.30-5.90) m/uL Hgb 8.6 L (13.0-17.5) gm/dL Hct 28.0 L (39.0-53.0) % MCV 101.9 H (80.0-100.0) fL MCHC 30.6 L (31.0-37.0) g/dL RDW 20.0 H (11.5-15.5) % Neutrophils # 16.3 H (1.3-7.7) k/uL Lymphocytes # 0.8 L (1.0-4.8) k/uL Sodium (137-145) mmol/L Carbon Dioxide (22-30) mmol/L BUN (9-20) mg/dL Creatinine (0.66-1.25) mg/dL Glucose (74-99) mg/dL POC Glucose (mg/dL) 194 H 190 H (75-99) mg/dL Calcium (8.4-10.2) mg/dL Total Bilirubin (0.2-1.3) mg/dL Total Protein (6.3-8.2) g/dL Albumin (3.5-5.0) g/dL Amylase (30-110) U/L Lipase (23-300) U/L Procalcitonin (0.02-0.09) ng/mL Urine Protein (Negative) Urine Blood (Negative) Ur Leukocyte Esterase (Negative) Urine WBC (0-5) /hpf Amorphous Sediment (None) /hpf Urine Bacteria (None) /hpf Hyaline Casts (0-2) /lpf 08/07/21 08/07/21 08/07/21 Range/Units 04:17 06:13 08:22 WBC (3.8-10.6) k/uL RBC (4.30-5.90) m/uL Hgb (13.0-17.5) gm/dL Hct (39.0-53.0) % MCV (80.0-100.0) fL MCHC (31.0-37.0) g/dL RDW (11.5-15.5) % Neutrophils # (1.3-7.7) k/uL Lymphocytes # (1.0-4.8) k/uL Sodium 135 L (137-145) mmol/L Carbon Dioxide 18 L (22-30) mmol/L BUN 99 H (9-20) mg/dL Creatinine 2.38 H (0.66-1.25) mg/dL Glucose 161 H (74-99) mg/dL POC Glucose (mg/dL) 164 H (75-99) mg/dL Calcium 8.1 L (8.4-10.2) mg/dL Total Bilirubin 1.5 H (0.2-1.3) mg/dL Total Protein 5.6 L (6.3-8.2) g/dL Albumin 3.0 L (3.5-5.0) g/dL Amylase 115 H (30-110) U/L Lipase 429 H (23-300) U/L Procalcitonin (0.02-0.09) ng/mL Urine Protein (Negative) Urine Blood (Negative) Ur Leukocyte Esterase (Negative) Urine WBC (0-5) /hpf Amorphous Sediment (None) /hpf Urine Bacteria (None) /hpf Hyaline Casts (0-2) /lpf Microbiology - Last 24 Hours (Table) 08/06/21 10:55 Urine Culture - Preliminary Urine,Voided Assessment and Plan Plan: 1 postop day # 10 following mitral valve replacement, tricuspid valve repair and single-vessel bypass surgery with SVG to acute marginal. 2 post thoracotomy with secondary atelectatic changes and bilateral pleural effusion with hypoxic respiratory failure, currently on 2 L O2 by nasal cannula 3 chronic right-sided loculated right-sided pleural effusion, post previous thoracentesis with negative fluid cytology. The patient has a pigtail catheter insertion 2 and the output from the predicted From the right is considerably high still. 4 post thoracotomy left-sided pleural effusion, chest tube is in place on the left, the output remains high in the patient is a small left apical pneumothorax. 5 acute hypoxic respiratory failure currently on 2 L of oxygen by cannula 6 history of sick sinus syndrome and the patient has a [facility] [facility] pacemaker placement in 2017 7 chronic atrial fibrillation maintained on medical condition with warfarin on outpatient basis. The patient has undergone closure of the left atrial appendage 8 chronic systolic heart failure 98 shows septal defect post closure 10 chronic kidney disease stage III 11 restrictive lung disease with a preop FEV1 of 47% of predicted 12 seconds sleep apnea 13 postoperative acute blood loss anemia, expected outcome of surgery. 14 leukocytosis with a rise in the white cell count up to 18. Consider underlying infection. The patient be further worked up. The Pronestyl level is slightly elevated 15 abdominal distention, rule out ileus. Plan Clinically stable Monitor fever pattern Awaiting final cultures and no need for antibiotics Repeat pro-calcitonin level in a.m. Adoral bicarb Keep the chest tube in place Repeat chest x-ray in the morning Continue using incentive spirometer Continue aggressive pulmonary toileting We'll continue to follow. Keep the patient ICU for another 24 hours.
--- NOTE | 2021-08-07 11:10 | CDI ---
Documentation Clarification Form Date: 08/07/2021 10:40:02 AM From: Lorraine García RN, CCDS Admit Date: 07/28/2021 05:38:00 AM Patient Name: Von Mascorro Visit Number: [id number] Discharge Date: ATTENTION: The Clinical Documentation Specialists (CDI) and [facility] Coding Staff appreciate your assistance in clarifying documentation. Please respond to the clarification below the line at the bottom and electronically sign. The CDI & [facility] Coding staff will review the response and follow-up if needed. Please note: Queries are made part of the Legal Health Record. If you have any questions, please contact the author of this message via ITS. Dr. Paul Collado Your patient has the documented symptom of Altered Mental Status beginning on 07/31/21 with ongoing treatment. Additional clarification regarding the etiology/cause of this symptom is requested. History/Risk Factors: Congestive heart failure, Valvular heart disease, Persistent atrial fibrillation, CKD, sick sinus syndrome , Hypertension, PFO, Recurrent pleural effusions Clinical Indicators: 81-year-old male who was post op day #3 mitral valve replacement, CABG X1. He is awake, alert with periods of confusion and had been combative to staff. His Oxygen saturations are 98 % on AirVo support of 60/L min and FIO2 80 % He was treated with Haldol 5 mg IV X1 07/31 08:00 126/83 80 27 97% high flow EKG: Paced rhythm at 80 bpm 07/31 Labs: WBC 8.3, HGB 7.6, 23.2 BUN 49, CR 2.17, Calcium 8.1, CXR: Mild cardiomegaly, interstitial changes slightly increased. Correlate for developing pulmonary vascular congestion. Left-sided chest tube. Right-sided pigtail pleural catheter with continued small to moderate pleural effusion with adjacent atelectasis and /or consolidation. An apparent pleural edge at the right lower lung suggesting underlying right basilar pneumothorax, similar to prior exam. Treatment: ICU/Telemetry monitoring 1:1 sitter at bedside Haldol 5 mg IV X1 Seroquel 50MG PO BID, AND 25 MG PO BID PRN 07/31 Pain control per current medication regime. Avoid narcotics Please clarify the etiology of the symptom of Altered Mental Status: [ ] Metabolic encephalopathy due to [insert cause of encephalopathy] [ ] Delirium (specify cause): [ ] Dementia (if know, specify Type and if with/without Behavioral Disturbance) [ ] Other condition (please specify) [ ] Unable to determine (Template Last Revised: June 2020) Altered mental status after surgery due to delirium from lack of sleep, resolved Dictated By: Deanne Rivera Signed By: <Electronically signed by Deanne SWAN> 08/08/21 1314 <Electronically signed by Donald Ontiveros MD> 08/11/21 0821 <Electronically signed by Donald Ontiveros MD> MTDD
[2021-08-07] MEDS ORDERED: BUMETANIDE 0.25 MG/ML 4 ML VIAL IVP STA (11:14)
[2021-08-07 11:37] LABS: Glucose,Whole Blood 188 mg/dL (75-99)
[2021-08-07] MEDS: SODIUM BICARBONATE TAB 650 MG TAB PO SCH ×2 (11:49→20:23)
--- NOTE | 2021-08-07 13:10 | P.PN ---
Subjective Patient is seen for follow-up for acute kidney injury on top of chronic kidney disease. Denies any significant complaints. 24 hour urine output documented at 540 mL. Serum creatinine is 2.38 mg/dL today. Patient continues to have bilateral chest tubes Patient is walking in the hallway today. He continues to get some shortness of breath on exertion. No other complaints. Urine output is not accurately charted as patient has voided in the commode at times. Objective - Vital Signs Vital signs: Vital Signs Temp 97.8 F 08/07/21 09:00 Pulse 66 08/07/21 11:18 Resp 26 H 08/07/21 11:00 BP 132/54 08/07/21 11:00 Pulse Ox 96 08/07/21 11:00 Intake & Output 08/06/21 08/07/21 08/07/21 18:59 06:59 18:59 Intake Total 250 490 Output Total 785 665 295 Balance -785 -415 195 Weight 75.5 kg Intake: Oral 250 490 Output: Drainage 610 [address] 220 100 35 Right Posterior 390 100 160 Urine 175 365 100 Stool 100 Other: Voiding Method Urinal Urinal # Voids 0 0 1 # Bowel Movements 1 1 ABP, PAP, CO, CI - Last Documented Arterial Blood Pressure 119/35 Pulmonary Artery Pressure 35/28 Cardiac Output 5 Cardiac Index 2.7 - Exam Patient is awake comfortable. Not in any acute distress Examination of the heart S1 and S2 Examination lungs bilateral breath sounds heard bilateral chest tubes present Abdomen is soft Examination lower extremity shows 2+ edema bilateral lower extremities [employer] exam grossly intact - Labs CBC & Chem 7: 08/07/21 04:17 08/07/21 04:17 Labs: Abnormal Lab Results - Last 24 Hours (Table) 08/06/21 08/06/21 08/06/21 Range/Units 07:17 16:41 20:37 WBC (3.8-10.6) k/uL RBC (4.30-5.90) m/uL Hgb (13.0-17.5) gm/dL Hct (39.0-53.0) % MCV (80.0-100.0) fL MCHC (31.0-37.0) g/dL RDW (11.5-15.5) % Neutrophils # (1.3-7.7) k/uL Lymphocytes # (1.0-4.8) k/uL Sodium (137-145) mmol/L Carbon Dioxide (22-30) mmol/L BUN (9-20) mg/dL Creatinine (0.66-1.25) mg/dL Glucose (74-99) mg/dL POC Glucose (mg/dL) 194 H 190 H (75-99) mg/dL Calcium (8.4-10.2) mg/dL Total Bilirubin (0.2-1.3) mg/dL Total Protein (6.3-8.2) g/dL Albumin (3.5-5.0) g/dL Amylase (30-110) U/L Lipase (23-300) U/L Procalcitonin 1.28 H (0.02-0.09) ng/mL 08/07/21 08/07/21 08/07/21 Range/Units 04:17 04:17 06:13 WBC 18.5 H (3.8-10.6) k/uL RBC 2.75 L (4.30-5.90) m/uL Hgb 8.6 L (13.0-17.5) gm/dL Hct 28.0 L (39.0-53.0) % MCV 101.9 H (80.0-100.0) fL MCHC 30.6 L (31.0-37.0) g/dL RDW 20.0 H (11.5-15.5) % Neutrophils # 16.3 H (1.3-7.7) k/uL Lymphocytes # 0.8 L (1.0-4.8) k/uL Sodium 135 L (137-145) mmol/L Carbon Dioxide 18 L (22-30) mmol/L BUN 99 H (9-20) mg/dL Creatinine 2.38 H (0.66-1.25) mg/dL Glucose 161 H (74-99) mg/dL POC Glucose (mg/dL) 164 H (75-99) mg/dL Calcium 8.1 L (8.4-10.2) mg/dL Total Bilirubin 1.5 H (0.2-1.3) mg/dL Total Protein 5.6 L (6.3-8.2) g/dL Albumin 3.0 L (3.5-5.0) g/dL Amylase (30-110) U/L Lipase (23-300) U/L Procalcitonin (0.02-0.09) ng/mL 08/07/21 08/07/21 Range/Units 08:22 11:35 WBC (3.8-10.6) k/uL RBC (4.30-5.90) m/uL Hgb (13.0-17.5) gm/dL Hct (39.0-53.0) % MCV (80.0-100.0) fL MCHC (31.0-37.0) g/dL RDW (11.5-15.5) % Neutrophils # (1.3-7.7) k/uL Lymphocytes # (1.0-4.8) k/uL Sodium (137-145) mmol/L Carbon Dioxide (22-30) mmol/L BUN (9-20) mg/dL Creatinine (0.66-1.25) mg/dL Glucose (74-99) mg/dL POC Glucose (mg/dL) 188 H (75-99) mg/dL Calcium (8.4-10.2) mg/dL Total Bilirubin (0.2-1.3) mg/dL Total Protein (6.3-8.2) g/dL Albumin (3.5-5.0) g/dL Amylase 115 H (30-110) U/L Lipase 429 H (23-300) U/L Procalcitonin (0.02-0.09) ng/mL Microbiology - Last 24 Hours (Table) 08/07/21 04:05 Sputum Culture - Preliminary Sputum 08/06/21 10:55 Urine Culture - Preliminary Urine,Voided Assessment and Plan Assessment: 1. Acute kidney injury, ATN currently nonoliguric, mostly hemodynamic and ass ociated with anemia as well. Patient is status post diuresis. So far diuretics have been on hold however I we will give a dose of Bumex today. 2. Anemia postoperatively, Patient is status post packed RBCs , started on Aranesp. Iron saturation 15% 3. Coronary artery disease status post coronary artery bypass surgery 1 with mitral valve replacement and tricuspid valve repair, 4. Chronic kidney disease NKF stage IIIB baseline creatinine about 1.6-1.7. Serum creatinine as low as 1.2 on 07/28/2021,? Falsely low secondary to volume overload 5. 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 Mild volume overload 7. Metabolic acidosis associated with renal failure. Started on sodium bicarb today. SPECT improvement with diuresis. Plan: Add Bumex 1 mg 1 IV IV iron 1 Monitor volume status closely as patient has also been started on sodium bicarb. Repeat labs in a.m.
[2021-08-07] MEDS ORDERED: SODIUM FERRIC GLUCONAT-SUCROSE 125 MG in SODIUM CHLORIDE 0.9% 100 ML IVPB ONE (15:00)
[2021-08-07 16:57] LABS: Glucose,Whole Blood 187 mg/dL (75-99)
--- NOTE | 2021-08-07 17:15 | P.PN ---
Subjective Progress Note Date: 08/07/21 This is a 81-year-old female who had mitral valve replacement, tricuspid valve repair in 1 vessel bypass surgery on 328 along with closure of ASD. Patient had mitral valve. In the past for mitral insufficiency. Patient seemed to be relatively stable. He has bilateral pleural chest tube and also pigtail catheters. Denies any significant chest pain or shortness of breath. He seemed to be in paced rhythm. Doesn't appear to be in acute distress. His creatinine is going up. Patient has history of chronic renal failure. Nephrology is consulted. We'll continue current medical therapy. Increase activity as tolerated. Further recommendations depend upon the clinical course. no acute cardiac arrhythmias. 08/05/2021: This patient had replacement of right pleural tube yesterday by radiologist. Still has a left pleural tube for pneumothorax. Patient is complaining of fatigue and tiredness. Complaints of some chest pain. His creatinine has shown some improvement. He is off diuretics. Patient has a pacemaker rhythm with underlying atrial fibrillation. There is a plan to restart Coumadin soon. Otherwise patient is making slow but steady progress. We'll continue rest of the management along with inspiratory spirometry. 08/06/2021: Patient is still has bilateral chest tubes with about 60-80 mL of drainage. He is complaining of being fatigued and tired. His urine output seemed to be on the low side and creatinine is slightly higher. Seen by an a properly who recommended to keep the patient off diuretics. Patient isn't pacer rhythm. Back on Coumadin. Continue rest of the medication and incentive spirometry. Will follow. 08/07/2021: This patient still has bilateral chest tubes with a significant drainage. Apparently the chest tube still in place. His urine output output is marginal. Creatinine is about 2.3. Is going to receive IV Bumex. Patient remains in pacemaker rhythm. Denies any chest pain. He happened to ambulate with exertional shortness of breath. Patient's white count is elevated. No fever. Sepsis workup is being done. Patient is otherwise clinically stable. We'll continue current medical therapy including Coumadin. Will follow Objective - Vital Signs Vital signs: Vital Signs Temp 97.8 F 08/07/21 09:00 Pulse 63 08/07/21 15:49 Resp 20 08/07/21 14:00 BP 112/62 08/07/21 14:00 Pulse Ox 96 04/07/22 14:00 Intake & Output 08/06/21 08/07/21 08/07/21 18:59 06:59 18:59 Intake Total 250 850 Output Total 785 665 700 Balance -785 -415 150 Weight 75.5 kg Intake: Oral 250 850 Output: Drainage [address] 220 100 70 Right Posterior 390 100 280 Urine 175 365 350 Stool 100 Other: Voiding Method Urinal Urinal # Voids 0 0 1 # Bowel Movements 1 1 ABP, PAP, CO, CI - Last Documented Arterial Blood Pressure 119/35 Pulmonary Artery Pressure 35/28 Cardiac Output 5 Cardiac Index 2.7 - Exam GENERAL EXAM: Patient is alert and oriented and doesn't appear to be in any acute distress HEENT: Normocephalic. Normal reaction of pupils, equal size, normal range of extraocular motion. No erythema or exudates in the throat. NECK: No masses, no nuchal rigidity. CHEST: Postsurgical with the chest tubes and catheters LUNGS: Diminished air entry: Bilateral chest tubes present HEART: S1 and S2 normal with no audible mumurs or gallops. Regular rhythm, femorals equal on both sides.. ABDOMEN: No hepatosplenomegaly, normal bowel sounds, no guarding or rigidity. SKIN: No rashes CENTRAL NERVOUS SYSTEM: No focal deficits. EXTREMITIES: No cyanosis, clubbing or edema. - Labs CBC & Chem 7: 08/07/21 04:17 08/07/21 04:17 Labs: Abnormal Lab Results - Last 24 Hours (Table) 08/06/21 08/07/21 08/07/21 Range/Units 20:37 04:17 04:17 WBC 18.5 H (3.8-10.6) k/uL RBC 2.75 L (4.30-5.90) m/uL Hgb 8.6 L (13.0-17.5) gm/dL Hct 28.0 L (39.0-53.0) % MCV 101.9 H (80.0-100.0) fL MCHC 30.6 L (31.0-37.0) g/dL RDW 20.0 H (11.5-15.5) % Neutrophils # 16.3 H (1.3-7.7) k/uL Lymphocytes # 0.8 L (1.0-4.8) k/uL Sodium 135 L (137-145) mmol/L Carbon Dioxide 18 L (22-30) mmol/L BUN 99 H (9-20) mg/dL Creatinine 2.38 H (0.66-1.25) mg/dL Glucose 161 H (74-99) mg/dL POC Glucose (mg/dL) 190 H (75-99) mg/dL Calcium 8.1 L (8.4-10.2) mg/dL Total Bilirubin 1.5 H (0.2-1.3) mg/dL Total Protein 5.6 L (6.3-8.2) g/dL Albumin 3.0 L (3.5-5.0) g/dL Amylase (30-110) U/L Lipase (23-300) U/L 08/07/21 08/07/21 08/07/21 Range/Units 06:13 08:22 11:35 WBC (3.8-10.6) k/uL RBC (4.30-5.90) m/uL Hgb (13.0-17.5) gm/dL Hct (39.0-53.0) % MCV (80.0-100.0) fL MCHC (31.0-37.0) g/dL RDW (11.5-15.5) % Neutrophils # (1.3-7.7) k/uL Lymphocytes # (1.0-4.8) k/uL Sodium (137-145) mmol/L Carbon Dioxide (22-30) mmol/L BUN (9-20) mg/dL Creatinine (0.66-1.25) mg/dL Glucose (74-99) mg/dL POC Glucose (mg/dL) 164 H 188 H (75-99) mg/dL Calcium (8.4-10.2) mg/dL Total Bilirubin (0.2-1.3) mg/dL Total Protein (6.3-8.2) g/dL Albumin (3.5-5.0) g/dL Amylase 115 H (30-110) U/L Lipase 429 H (23-300) U/L 08/07/21 Range/Units 16:54 WBC (3.8-10.6) k/uL RBC (4.30-5.90) m/uL Hgb (13.0-17.5) gm/dL Hct (39.0-53.0) % MCV (80.0-100.0) fL MCHC (31.0-37.0) g/dL RDW (11.5-15.5) % Neutrophils # (1.3-7.7) k/uL Lymphocytes # (1.0-4.8) k/uL Sodium (137-145) mmol/L Carbon Dioxide (22-30) mmol/L BUN (9-20) mg/dL Creatinine (0.66-1.25) mg/dL Glucose (74-99) mg/dL POC Glucose (mg/dL) 187 H (75-99) mg/dL Calcium (8.4-10.2) mg/dL Total Bilirubin (0.2-1.3) mg/dL Total Protein (6.3-8.2) g/dL Albumin (3.5-5.0) g/dL Amylase (30-110) U/L Lipase (23-300) U/L Microbiology - Last 24 Hours (Table) 08/07/21 04:05 Sputum Culture - Preliminary Sputum 08/06/21 10:55 Urine Culture - Preliminary Urine,Voided Assessment and Plan (1) Status post mitral valve replacement Current Visit: Yes Status: Acute Code(s): Z95.2 - PRESENCE OF PROSTHETIC HEART VALVE SNOMED Code(s): 7161477740826 (2) Status post single vessel coronary artery bypass Current Visit: Yes Status: Acute Code(s): Z95.1 - PRESENCE OF AORTOCORONARY BYPASS GRAFT SNOMED Code(s): 530175175 (3) Pleural effusion Current Visit: No Status: Acute Code(s): J90 - PLEURAL EFFUSION, NOT ELSEWHERE CLASSIFIED SNOMED Code(s): 44151976 (4) Acute on chronic renal failure Current Visit: Yes Status: Acute Code(s): N17.9 - ACUTE KIDNEY FAILURE, UNSPECIFIED; N18.9 - CHRONIC KIDNEY DISEASE, UNSPECIFIED SNOMED Code(s): 958287447 (5) Chronic a-fib Current Visit: No Status: Acute Code(s): I48.2 - CHRONIC ATRIAL FIBRILLATION * DO NOT USE * SNOMED Code(s): 539099085 (6) Presence of permanent cardiac pacemaker Current Visit: Yes Status: Acute Code(s): Z95.0 - PRESENCE OF CARDIAC PACEMAKER SNOMED Code(s): 142711036 Plan: Clinical status is relatively stable. Concerned that continued drainage from the chest tubes and an elevated white count. Renal function is stable, receiving IV Bumex today. Continue with incentive spirometry and increase activity. Will follow
[2021-08-07] MEDS ORDERED: WARFARIN 1 MG TAB PO ONE (18:00)
[2021-08-07 20:13] LABS: Glucose,Whole Blood 154 mg/dL (75-99)
[2021-08-07] MEDS: CALCIUM ACETATE 667 MG TAB PO SCH (20:22)
[2021-08-07] MEDS: ATORVASTATIN 40 MG TAB PO SCH (20:22)
[2021-08-07] MEDS: MELATONIN 3 MG TABLET PO SCH (20:23)
--- NOTE | 2021-08-08 06:26 | XR ---
EXAMINATION TYPE: XR chest 1V portable DATE OF EXAM: 08/08/2021 CLINICAL HISTORY: Difficulty breathing progress study. Postopen cardiac surgery. TECHNIQUE: Single AP portable semiupright view of the chest is obtained. COMPARISON: Chest x-ray from one day earlier and older studies. FINDINGS: Persistent left-sided chest tube with trace left apical pneumothorax less prominent than o ne day earlier. Overlying sternal wires along with cardiac valvular clips and valvular ring at level of tricuspid christi ve all redemonstrated. Persistent cardiomegaly and atrial septal closure device. Persistent small rig ht pleural effusion along with bilateral mild to moderate interstitial edema and right greater than l eft lower lung opacities. Osseous structures are intact. Right basilar basilar pigtail catheter parti ally imaged is redemonstrated. IMPRESSION: Cardiomegaly with small right pleural effusion and mild bilateral interstitial edema luisa g with bilateral lower lung atelectasis and/or infiltrates are all redemonstrated with right basilar pleural pigtail drainage catheter. No significant interval change. Trace left apical pneumothorax improved from one day earlier with left-sided chest tube redemonstrate dElizabeth
[2021-08-08 06:41] LABS: Glucose,Whole Blood 136 mg/dL (75-99)
[2021-08-08] MEDS: PANTOPRAZOLE 40 MG TABLET PO SCH (06:46)
[2021-08-08] MEDS: INSULIN ASPART (NovoLOG) 100 UNIT/ML VIAL SQ SCH ×4 (06:46→20:14)
--- NOTE | 2021-08-08 07:36 | P.PN ---
Subjective Progress Note Date: 08/08/21 Principal diagnosis: Mitral valve regurgitation, tricuspid valve regurgitation, coronary artery disease. Previous medical history of CAD with previous cardial infarction and PCI, hypertension, chronic atrial fibrillation on Coumadin for anticoagulation status post cardioversion, sick sinus syndrome [facility] [facility] permanent pacemaker placement in 2017, chronic systolic heart failure, atrial septal defect status post closure, previous MitraClip in 2019, chronic renal insufficiency, previous tobacco dependence, severe restrictive lung disease, obstructive sleep apnea, recurrent right-sided pleural effusio with previous thoracentesis x 4, remote history of pneumonia, family history of premature coronary artery disease POD #11 mitral valve replacement with 31 mm Mosaic porcine valve prosthesis, tricuspid valve repair with 30 mm MC3 band, coronary artery bypass grafting 1 with reverse saphenous vein graft to the obtuse marginal artery, endovascular vein harvest of the left greater saphenous vein, epi-aortic ultrasound, closure of the left atrial appendage, closure of ASD Postoperative acute blood loss anemia and thrombocytopenia, expected given hemodilution and cardiopulmonary bypass pump Coagulopathy, unexpected, last coumadin dose 07/22/21 Right-sided pleural effusion, expected given history of previous right-sided effusion with thoracentesis 4, status post right-sided pigtail catheter placement by interventional radiology Leukocytosis, unknown source, afebrile, procalcitonin 1.28 Altered mental status after surgery due to delirium from lack of sleep, resolved The patient was seen and examined this morning sitting up in a recliner in the intensive care unit in no acute distress eating breakfast. He denies any pain other than mouth pain, denies shortness of breath. Currently on 4 L nasal cannula, achieving 1000 mL on his incentive spirometry. Remains in controlled atrial fibrillation. Labs and x-rays reviewed this morning. Left pleural chest tube and right pigtail catheter remain with large serous output although decreased from yesterday. Patient consuming minimal food due to mouth pain, continues on nystatin oral rinse yesterday. Urine output better after dose of bumex given by nephro yesterday. Labs and x-ray reviewed. Urine/sputum/blood cultures sent, urine culture finalized as negative, blood cultures demonstrate no growth so far, sputum culture gram stain shows few PMNs, few gram + bacilli and cocci, few gram - bacilli. Patient remains afebrile. Objective - Vital Signs Vital signs: Vital Signs Temp 97.9 F 08/08/21 04:00 Pulse 66 08/08/21 07:00 Resp 19 08/08/21 07:00 BP 129/80 08/08/21 07:00 Pulse Ox 93 L 08/08/21 07:00 Intake & Output 08/07/21 08/08/21 08/08/21 18:59 06:59 18:59 Intake Total 850 1010 300 Output Total 830 1055 Balance 20 -45 300 Weight 74 kg Intake: IV 100 Sodium Ferric Gluconat- 100 Sucrose 125 mg In Sodium Chloride 0.9% 100 ml @ 100 mls/hr IVPB ONCE ONE Rx#:[id number] Oral 850 910 300 Output: Drainage [address] 120 130 Right Posterior 360 175 Urine 350 750 Other: Voiding Method Urinal # Voids 1 1 # Bowel Movements 1 ABP, PAP, CO, CI - Last Documented Arterial Blood Pressure 119/35 Pulmonary Artery Pressure 35/28 Cardiac Output 5 Cardiac Index 2.7 - Exam CONSTITUTIONAL: Appears comfortable, cooperative, no acute distress RESPIRATORY: Lungs sounds diminished bilaterally. Respirations even, nonlabored. Currently on 4 L nasal cannula with oxygen saturation 93%. Able to achieve 1000 mL on incentive spirometry. Strong cough. CARDIOVASCULAR: S1, S2 present. Irregular rate and rhythm, controlled atrial fibrillation on telemetry. Sternum stable. Palpable peripheral pulses bilater ally. No edema present. No calf pain or tenderness noted. Heart hugger in place with patient demonstrating appropriate use. Antiembolism stockings, SCDs present. GASTROINTESTINAL: Abdomen soft, nontender, slightly distended. Active bowel sounds present 4 quadrants. Tolerating minimal diet due to mouth pain. Positive bowel movement 08/07/21 GENITOURINARY: Continues to void, 1100 mL in the last 24 hours INTEGUMENTARY: Skin is warm and dry with evidence of good perfusion. Anterior chest incision well approximated and covered with dry intact dressing. Left lower extremity EVH site well approximated without redness or drainage. NEUROLOGIC: Cranial nerves II through XII intact MUSKULOSKELETAL: Able to move all extremities, strength equal bilaterally but generalized weakness present PSYCHIATRIC: Oriented to person place and time INVASIVE LINES AND TUBES: Right pigtail/left pleural chest tube present and connected to wall suction, no air leaks present. Left pleural chest tube with 90 mL serous drainage overnight, 270 mL in the last 24 hours. Right-sided pigtail catheter with 140 mL serous drainage overnight, 500 mL the last 24 hours. - Allied health notes Allied health notes reviewed: nursing - Labs CBC & Chem 7: 08/08/21 07:08 08/08/21 07:08 Labs: Abnormal Lab Results - Last 24 Hours (Table) 08/07/21 08/07/21 08/07/21 Range/Units 08:22 11:35 16:54 POC Glucose (mg/dL) 188 H 187 H (75-99) mg/dL Amylase 115 H (30-110) U/L Lipase 429 H (23-300) U/L 08/07/21 08/08/21 Range/Units 20:11 06:40 POC Glucose (mg/dL) 154 H 136 H (75-99) mg/dL Amylase (30-110) U/L Lipase (23-300) U/L Microbiology - Last 24 Hours (Table) 08/07/21 04:05 Gram Stain - Preliminary Sputum Sputum Culture - Preliminary 08/06/21 16:58 Blood Culture - Preliminary Blood No Growth after 24 hours 08/06/21 17:04 Blood Culture - Preliminary Blood No Growth after 24 hours 08/06/21 10:55 Urine Culture - Final Urine,Voided - Imaging and Cardiology Chest x-ray: report reviewed, image reviewed Assessment and Plan Assessment: 1. Mitral valve regurgitation, previous MitraClip in 2019, status post post mitral valve replacement 2. Tricuspid valve regurgitation, status post tricuspid valve repair 3. Coronary artery disease with previous myocardial infarction and PCI, status post 1 vessel CABG 4. History of hypertension 5. Chronic atrial fibrillation on Coumadin for anticoagulation status post cardioversion, status post closure of the left atrial appendage 6. Sick sinus syndrome status post [facility] [facility] permanent pacemaker placement in 2016 7. Chronic systolic heart failure 8. Atrial septal defect status post closure 9. Acute on chronic renal insufficiency stage IIIB, baseline creatinine 1.6-1.7 10. Previous tobacco dependence 11. Severe restrictive lung disease, preoperative FEV1 47% of predicted 12. Recurrent right-sided pleural effusion, patient had right sided th oracentesis twice in 2019 and twice in 2020, status post right-sided pigtail catheter placement by IR 13. Obstructive sleep apnea 14. Remote history of pneumonia 15. Family history of premature coronary artery disease 16. Postoperative acute blood loss anemia and thrombocytopenia, expected 17. Coagulopathy, unexpected 18. Leukocytosis, elevated pro-calcitonin, afebrile, unknown source 19. Altered mental status after surgery due to delirium from lack of sleep, resolved Plan: 1. Continue low-dose aspirin, statin 2. Continue Coumadin per home dose, we'll monitor daily PT/INR 3. Wean O2 as tolerated. Encourage incentive spirometry use 10 times every hour while awake. Bronchodilators per pulmonology. 4. Increase activity as tolerated. PT/OT/cardiac rehab following 5. Will monitor daily labs and x-rays. Urine/blood/sputum culture sent, pending final results 6. GI/DVT prophylaxis 7. Insulin management per primary care service. Patient is not diabetic, preoperative hemoglobin A1c 5.8% 8. Pain control per current medication regimen. Avoid narcotics 9. Continue left pleural chest tube and right pigtail catheter. May need right sided pleurx before discharge 10. Strict accurate intake and output. Daily weights 11. Encourage oral intake, encourage supplements to improve nutrition. Continue nystatin oral rinse 12. Discharge planning in progress. Anticipate discharge to [facility] once able to remove chest tubes 13. More recommendations to follow based on patient's progress
[2021-08-08] MEDS: IPRATROPIUM-ALBUTEROL 3 ML NEB INHALATION SCH ×4 (07:38→19:59)
[2021-08-08 07:58] LABS: INR 1.2 (<1.2)
[2021-08-08 08:04] LABS: Anisocytosis Moderate; Basophils % (A) 0 %; Eosinophils # (A) 0.1 k/uL (0-0.7); Eosinophils % (A) 1 %; HCT 26.5 % (39.0-53.0); HGB 8.3 gm/dL (13.0-17.5); Hypochromasia Marked; Lymphocytes # (A) 0.6 k/uL (1.0-4.8); Lymphocytes % (A) 3 %; MCH 31.6 pg (25.0-35.0); MCHC 31.3 g/dL (31.0-37.0); MCV 100.9 fL (80.0-100.0); Macrocytosis Moderate; Mean Platelet Volume 9.2; Monocytes # (A) 0.8 k/uL (0-1.0); Monocytes % (A) 5 %; Neutrophils # (A) 15.3 k/uL (1.3-7.7); Neutrophils % (A) 90 %; Platelet Count 246 k/uL (150-450); Poikilocytosis Moderate; RBC 2.62 m/uL (4.30-5.90); RDW 20.6 % (11.5-15.5); WBC 17.1 k/uL (3.8-10.6)
[2021-08-08 08:23] LABS: Magnesium 2.8 mg/dL (1.6-2.3); Potassium 4.5 mmol/L (3.5-5.1)
[2021-08-08] MEDS: SODIUM BICARBONATE TAB 650 MG TAB PO SCH (09:46)
[2021-08-08] MEDS: ASCORBIC ACID 500 MG TAB PO SCH (09:46)
[2021-08-08] MEDS: HEPARIN SODIUM,PORCINE/PF 5,000 UNIT/0.5 ML SYRINGE SQ SCH ×3 (09:46→23:56)
[2021-08-08] MEDS: allopurinoL 100 MG TAB PO SCH (09:46)
[2021-08-08] MEDS: guaiFENesin 600 MG TABLET.ER PO SCH ×2 (09:47→20:32)
[2021-08-08] MEDS: FOLIC ACID 1 MG TAB PO SCH (09:47)
--- NOTE | 2021-08-08 09:47 | P.PN ---
Subjective Progress Note Date: 08/07/21 This is a 81-year-old male patient who is currently postop day 2 from mitral valve replacement, tricuspid valve repair and single-vessel bypass grafting SVG to obtuse marginal. Patient has a past medical history of valvular heart disease with symptoms including shortness of breath with exertion and unable to perform many of his activities of daily living. Additional medical history includes coronary artery disease with previous cardiac infarction and PCI, hypertension, chronic atrial fibrillation on Coumadin for and configuration status post cardioversion, sick sinus syndrome with [facility] permanent pacemaker placement 2016, chronic systolic heart failure, atrial septal defect status post closure with previous mitral clip in 2019 at [facility], chronic renal insufficiency, obstructive sleep apnea, reoccurring right-sided pleural effusions with previous thoracentesis 4. At this time patient is currently resting comfortably in the intensive care unit. Patient was successfully extubated per protocol currently on IV dopamine and Levophed. INR elevated at 6.5. hemoglobin 6.6. 1 unit PRBCs, 2 units of FFP have been ordered per surgical services INR recheck ordered for noon. Chest x-ray the same showing cardiomegaly with moderate to large right and small sized bilateral pleural effusion collection and/or effusions with mild to moderate central vascular congestion and bibasilar opacities favoring atelectasis along with left-sided chest tubes are redemonstrated. Per surgical services possible plans for Pleurx catheter placement. This time patient is resting comfortably in chair patient remains on high flow oxygen. Blood sugars have remained stable per nursing staff will transition off insulin drip to sliding scale coverage. Cardiology and critical care services are following. On 07/31/2021 patient having intermittent episodes of confusion. INR improving to 2.3. Hemoglobin 7.6. Chest tubes remain in place. Cardiology and critical care services are following. Patient remains on high flow nasal cannula. Current vitals heart rate 80, respiratory rate 16, blood pressure 104/51 On 08/01/2021 patient is more alert currently resting comfortably in chair. Sitter is at bedside. Patient remains on high flow nasal cannula. Patient remains on IV Bumex. Cordis, chest tube and right pigtail catheter all remain in place. On 08/02/2021 patient was seen and examined in the ICU he is alert and oriented 3 in no apparent distress, sitting up in a chair, he is maintained on high flow oxygen, with FiO2 of 45, pulse ox is 93% temperature 97.2 pulse 80 respiration 22 blood pressure 129/46, he denies any fever or chills no headache or dizziness no chest pain no shortness of breath no cough no nausea no vomiting no abdominal pain no diarrhea and no urinary symptoms, chest tube is still in place, he is maintained on Bumex 2 mg IV every 8 hours On 08/03/2021 patient remains in the intensive care unit. Patient is alert and oriented sitting comfortably in chair. Discussed case with surgical team Bumex has been DC'd. Creatinine 2.25 bun 70. Chest tube remains in place. Patient remains on high flow 60%. This time patient denies chest pain or shortness socorro th. Patient denies diarrhea. Patient denies any urinary burning or frequency On 08/04/2021 patient was seen and examined, in the ICU, he is alert and oriented 3 in no apparent distress, there is no fever or chills no headache or dizziness no chest pain no shortness of breath no cough no nausea or vomiting no abdominal pain no diarrhea and no urinary symptoms he still has a left sided chest to and he is complaining of discomfort at the site of the 2 he is maintained on oxygen at 8 L nasal cannula his pulse ox is 96% blood pressure 126/62 pulse 63 respiration 24 temperature 97.9 On 08/05/2021 patient was seen and examined in the ICU he is alert and oriented 3 in no apparent distress he is sitting up in a chair he is complaining of discomfort in the left chest at the site of the chest to he is also complaining of pain when coughing otherwise he denies any complaints at this time his vital exam reveals a temperature of 98 pulse 65 respiration 30 blood pressure 136/66 pulse ox 98% on oxygen 3 L nasal cannula, white blood count is 14.4 hemoglobin 8.0 platelet count 192 INR 1.2 BUN 85 creatinine 2.2 On 08/06/2021 patient remains in the intensive care unit. Patient is alert and oriented 3. White blood cell increasing to 15.3 per. Per critical care services will check UA and monitor fever pattern no need for antibiotic treatment at this time. Creatinine 2.53 and bun 89. Nephrology services are following. Current vitals temp 97.6, heart rate 64, pulse ox 94% on 3 L, blood pressure 166/57 08/07/2021 patient remains in the intensive care unit confusion has improved. Nephrology services are following. Patient remains with significant output from chest tubes. Current vitals temp 97.9, respiratory rate 22, blood pressure 124/60 to 98% on 5 L Objective - Vital Signs Vital signs: Vital Signs Temp 97.8 F 08/07/21 09:00 Pulse 63 08/07/21 15:49 Resp 20 08/07/21 14:00 BP 112/62 08/07/21 14:00 Pulse Ox 96 08/07/21 14:00 Intake & Output 08/06/21 08/07/21 08/07/21 18:59 06:59 18:59 Intake Total 250 850 Output Total 785 665 700 Balance -785 -415 150 Weight 75.5 kg Intake: Oral 250 850 Output: Drainage [address] 220 100 70 Right Posterior 390 100 280 Urine 175 365 350 Stool 100 Other: Voiding Method Urinal Urinal # Voids 0 0 1 # Bowel Movements 1 1 ABP, PAP, CO, CI - Last Documented Arterial Blood Pressure 119/35 Pulmonary Artery Pressure 35/28 Cardiac Output 5 Cardiac Index 2.7 - Exam In general patient is alert and oriented x 3 in no distress HEENT head normocephalic and atraumatic Neck is supple no JVD no goiter no lymphadenopathy no carotid bruit Chest examination reveals a scattered crackles in both lung sousa no wheezing Cardiac exam reveals regular heart sounds S1 and S2 no gallops no murmurs Abdomen is soft nontender no organomegaly with normal bowel sounds Extremity exam reveals no edema no cyanosis or clubbing Neurological examination reveals no gross focal deficits - Labs CBC & Chem 7: 08/08/21 07:08 08/08/21 07:08 Labs: Abnormal Lab Results - Last 24 Hours (Table) 08/06/21 08/07/21 08/07/21 Range/Units 20:37 04:17 04:17 WBC 18.5 H (3.8-10.6) k/uL RBC 2.75 L (4.30-5.90) m/uL Hgb 8.6 L (13.0-17.5) gm/dL Hct 28.0 L (39.0-53.0) % MCV 101.9 H (80.0-100.0) fL MCHC 30.6 L (31.0-37.0) g/dL RDW 20.0 H (11.5-15.5) % Neutrophils # 16.3 H (1.3-7.7) k/uL Lymphocytes # 0.8 L (1.0-4.8) k/uL Sodium 135 L (137-145) mmol/L Carbon Dioxide 18 L (22-30) mmol/L BUN 99 H (9-20) mg/dL Creatinine 2.38 H (0.66-1.25) mg/dL Glucose 161 H (74-99) mg/dL POC Glucose (mg/dL) 190 H (75-99) mg/dL Calcium 8.1 L (8.4-10.2) mg/dL Total Bilirubin 1.5 H (0.2-1.3) mg/dL Total Protein 5.6 L (6.3-8.2) g/dL Albumin 3.0 L (3.5-5.0) g/dL Amylase (30-110) U/L Lipase (23-300) U/L 08/07/21 08/07/21 08/07/21 Range/Units 06:13 08:22 11:35 WBC (3.8-10.6) k/uL RBC (4.30-5.90) m/uL Hgb (13.0-17.5) gm/dL Hct (39.0-53.0) % MCV (80.0-100.0) fL MCHC (31.0-37.0) g/dL RDW (11.5-15.5) % Neutrophils # (1.3-7.7) k/uL Lymphocytes # (1.0-4.8) k/uL Sodium (137-145) mmol/L Carbon Dioxide (22-30) mmol/L BUN (9-20) mg/dL Creatinine (0.66-1.25) mg/dL Glucose (74-99) mg/dL POC Glucose (mg/dL) 164 H 188 H (75-99) mg/dL Calcium (8.4-10.2) mg/dL Total Bilirubin (0.2-1.3) mg/dL Total Protein (6.3-8.2) g/dL Albumin (3.5-5.0) g/dL Amylase 115 H (30-110) U/L Lipase 429 H (23-300) U/L 08/07/21 Range/Units 16:54 WBC (3.8-10.6) k/uL RBC (4.30-5.90) m/uL Hgb (13.0-17.5) gm/dL Hct (39.0-53.0) % MCV (80.0-100.0) fL MCHC (31.0-37.0) g/dL RDW (11.5-15.5) % Neutrophils # (1.3-7.7) k/uL Lymphocytes # (1.0-4.8) k/uL Sodium (137-145) mmol/L Carbon Dioxide (22-30) mmol/L BUN (9-20) mg/dL Creatinine (0.66-1.25) mg/dL Glucose (74-99) mg/dL POC Glucose (mg/dL) 187 H (75-99) mg/dL Calcium (8.4-10.2) mg/dL Total Bilirubin (0.2-1.3) mg/dL Total Protein (6.3-8.2) g/dL Albumin (3.5-5.0) g/dL Amylase (30-110) U/L Lipase (23-300) U/L Microbiology - Last 24 Hours (Table) 08/07/21 04:05 Sputum Culture - Preliminary Sputum 08/06/21 10:55 Urine Culture - Preliminary Urine,Voided Assessment and Plan Assessment: 1. Status post mitral valve replacement, tricuspid valve repair and single- vessel bypass grafting. 2. Right-sided pleural effusion 3. Coagulopathy. Resolved 4. History of congestive heart failure 5. History of valvular heart disease with previous mitral valve repair with a mitral clip at [facility] 6. History of coronary artery disease 7. History of hyperlipidemia 8. History of renal insufficiency 9. Previous history of atrial fibrillation 10. Leukocytosis White blood cell up to 15.3. Critical care services ordering UA. No need for antibiotics at this time per critical care will continue to monitor Thank you for this consultation we will continue to follow patient closely throughout stay Patient remains in the intensive care unit Repeat labs ordered Patient to be transitioned off IV insulin to sliding scale coverage. A1c 5.8
[2021-08-08] MEDS: MAGNESIUM HYDROXIDE PO SCH ×6 (09:48→21:30)
[2021-08-08] MEDS: ALUMINUM HYDROXIDE PO SCH ×6 (09:48→21:30)
[2021-08-08] MEDS: FERROUS SULFATE 325 MG TAB PO SCH (09:48)
[2021-08-08] MEDS: NYSTATIN PO SCH ×6 (09:48→21:30)
[2021-08-08] MEDS: SIMETHICONE PO SCH ×6 (09:48→21:30)
[2021-08-08] MEDS: ASPIRIN 81 MG PO SCH (09:48)
--- NOTE | 2021-08-08 09:49 | P.PN ---
Subjective Progress Note Date: 08/08/21 This is a 81-year-old male patient who is currently postop day 2 from mitral valve replacement, tricuspid valve repair and single-vessel bypass grafting SVG to obtuse marginal. Patient has a past medical history of valvular heart disease with symptoms including shortness of breath with exertion and unable to perform many of his activities of daily living. Additional medical history includes coronary artery disease with previous cardiac infarction and PCI, hypertension, chronic atrial fibrillation on Coumadin for and configuration status post cardioversion, sick sinus syndrome with [facility] permanent pacemaker placement 2016, chronic systolic heart failure, atrial septal defect status post closure with previous mitral clip in 2019 at [facility], chronic renal insufficiency, obstructive sleep apnea, reoccurring right-sided pleural effusions with previous thoracentesis 4. At this time patient is currently resting comfortably in the intensive care unit. Patient was successfully extubated per protocol currently on IV dopamine and Levophed. INR elevated at 6.5. hemoglobin 6.6. 1 unit PRBCs, 2 units of FFP have been ordered per surgical services INR recheck ordered for noon. Chest x-ray the same showing cardiomegaly with moderate to large right and small sized bilateral pleural effusion collection and/or effusions with mild to moderate central vascular congestion and bibasilar opacities favoring atelectasis along with left-sided chest tubes are redemonstrated. Per surgical services possible plans for Pleurx catheter placement. This time patient is resting comfortably in chair patient remains on high flow oxygen. Blood sugars have remained stable per nursing staff will transition off insulin drip to sliding scale coverage. Cardiology and critical care services are following. On 07/31/2021 patient having intermittent episodes of confusion. INR improving to 2.3. Hemoglobin 7.6. Chest tubes remain in place. Cardiology and critical care services are following. Patient remains on high flow nasal cannula. Current vitals heart rate 80, respiratory rate 16, blood pressure 104/51 On 08/01/2021 patient is more alert currently resting comfortably in chair. Sitter is at bedside. Patient remains on high flow nasal cannula. Patient remains on IV Bumex. Cordis, chest tube and right pigtail catheter all remain in place. On 08/02/2021 patient was seen and examined in the ICU he is alert and oriented 3 in no apparent distress, sitting up in a chair, he is maintained on high flow oxygen, with FiO2 of 45, pulse ox is 93% temperature 97.2 pulse 80 respiration 22 blood pressure 129/46, he denies any fever or chills no headache or dizziness no chest pain no shortness of breath no cough no nausea no vomiting no abdominal pain no diarrhea and no urinary symptoms, chest tube is still in place, he is maintained on Bumex 2 mg IV every 8 hours On 08/03/2021 patient remains in the intensive care unit. Patient is alert and oriented sitting comfortably in chair. Discussed case with surgical team Bumex has been DC'd. Creatinine 2.25 bun 70. Chest tube remains in place. Patient remains on high flow 60%. This time patient denies chest pain or shortness socorro th. Patient denies diarrhea. Patient denies any urinary burning or frequency On 08/04/2021 patient was seen and examined, in the ICU, he is alert and oriented 3 in no apparent distress, there is no fever or chills no headache or dizziness no chest pain no shortness of breath no cough no nausea or vomiting no abdominal pain no diarrhea and no urinary symptoms he still has a left sided chest to and he is complaining of discomfort at the site of the 2 he is maintained on oxygen at 8 L nasal cannula his pulse ox is 96% blood pressure 126/62 pulse 63 respiration 24 temperature 97.9 On 08/05/2021 patient was seen and examined in the ICU he is alert and oriented 3 in no apparent distress he is sitting up in a chair he is complaining of discomfort in the left chest at the site of the chest to he is also complaining of pain when coughing otherwise he denies any complaints at this time his vital exam reveals a temperature of 98 pulse 65 respiration 30 blood pressure 136/66 pulse ox 98% on oxygen 3 L nasal cannula, white blood count is 14.4 hemoglobin 8.0 platelet count 192 INR 1.2 BUN 85 creatinine 2.2 On 08/06/2021 patient remains in the intensive care unit. Patient is alert and oriented 3. White blood cell increasing to 15.3 per. Per critical care services will check UA and monitor fever pattern no need for antibiotic treatment at this time. Creatinine 2.53 and bun 89. Nephrology services are following. Current vitals temp 97.6, heart rate 64, pulse ox 94% on 3 L, blood pressure 166/57 08/07/2021 patient remains in the intensive care unit confusion has improved. Nephrology services are following. Patient remains with significant output from chest tubes. Current vitals temp 97.9, respiratory rate 22, blood pressure 124/60 to 98% on 5 L On 08/08/2021 patient is alert and oriented 3 currently sitting up in the care unit. Per nursing staff patient has been up ambulating with assistance. Still having significant output from chest tubes. Patient also getting treated for oral thrush. Discharge planning is in progress patient will likely need inpatient rehab upon discharge Objective - Vital Signs Vital signs: Vital Signs Temp 97.9 F 08/08/21 04:00 Pulse 66 08/08/21 09:00 Resp 22 08/08/21 09:00 BP 124/105 08/08/21 09:00 Pulse Ox 100 08/08/21 09:00 Intake & Output 08/07/21 08/08/21 08/08/21 18:59 06:59 18:59 Intake Total 850 1010 660 Output Total 830 1055 275 Balance 20 -45 385 Weight 74 kg Intake: IV 100 Sodium Ferric Gluconat- 100 Sucrose 125 mg In Sodium Chloride 0.9% 100 ml @ 100 mls/hr IVPB ONCE ONE Rx#:[id number] Oral 850 910 660 Output: Drainage [address] 120 130 100 Right Posterior 360 175 175 Urine 350 750 Other: Voiding Method Urinal # Voids 1 1 # Bowel Movements 1 ABP, PAP, CO, CI - Last Documented Arterial Blood Pressure 119/35 Pulmonary Artery Pressure 35/28 Cardiac Output 5 Cardiac Index 2.7 - Exam In general patient is alert and oriented x 3 in no distress HEENT head normocephalic and atraumatic Neck is supple no JVD no goiter no lymphadenopathy no carotid bruit Chest examination reveals a scattered crackles in both lung sousa no wheezing Cardiac exam reveals regular heart sounds S1 and S2 no gallops no murmurs Abdomen is soft nontender no organomegaly with normal bowel sounds Extremity exam reveals no edema no cyanosis or clubbing Neurological examination reveals no gross focal deficits - Labs CBC & Chem 7: 08/08/21 07:08 08/08/21 07:08 Labs: Abnormal Lab Results - Last 24 Hours (Table) 08/07/21 08/07/21 08/07/21 Range/Units 11:35 16:54 20:11 WBC (3.8-10.6) k/uL RBC (4.30-5.90) m/uL Hgb (13.0-17.5) gm/dL Hct (39.0-53.0) % MCV (80.0-100.0) fL RDW (11.5-15.5) % Neutrophils # (1.3-7.7) k/uL Lymphocytes # (1.0-4.8) k/uL PT (9.0-12.0) sec INR (<1.2) Sodium (137-145) mmol/L BUN (9-20) mg/dL Creatinine (0.66-1.25) mg/dL Glucose (74-99) mg/dL POC Glucose (mg/dL) 188 H 187 H 154 H (75-99) mg/dL Calcium (8.4-10.2) mg/dL Magnesium (1.6-2.3) mg/dL 08/08/21 08/08/21 08/08/21 Range/Units 06:40 07:08 07:08 WBC 17.1 H (3.8-10.6) k/uL RBC 2.62 L (4.30-5.90) m/uL Hgb 8.3 L (13.0-17.5) gm/dL Hct 26.5 L (39.0-53.0) % MCV 100.9 H (80.0-100.0) fL RDW 20.6 H (11.5-15.5) % Neutrophils # 15.3 H (1.3-7.7) k/uL Lymphocytes # 0.6 L (1.0-4.8) k/uL PT 13.0 H (9.0-12.0) sec INR 1.2 H (<1.2) Sodium (137-145) mmol/L BUN (9-20) mg/dL Creatinine (0.66-1.25) mg/dL Glucose (74-99) mg/dL POC Glucose (mg/dL) 136 H (75-99) mg/dL Calcium (8.4-10.2) mg/dL Magnesium (1.6-2.3) mg/dL 08/08/21 Range/Units 07:08 WBC (3.8-10.6) k/uL RBC (4.30-5.90) m/uL Hgb (13.0-17.5) gm/dL Hct (39.0-53.0) % MCV (80.0-100.0) fL RDW (11.5-15.5) % Neutrophils # (1.3-7.7) k/uL Lymphocytes # (1.0-4.8) k/uL PT (9.0-12.0) sec INR (<1.2) Sodium 136 L (137-145) mmol/L BUN 94 H (9-20) mg/dL Creatinine 2.51 H (0.66-1.25) mg/dL Glucose 124 H (74-99) mg/dL POC Glucose (mg/dL) (75-99) mg/dL Calcium 8.0 L (8.4-10.2) mg/dL Magnesium 2.8 H (1.6-2.3) mg/dL Microbiology - Last 24 Hours (Table) 08/07/21 04:05 Gram Stain - Preliminary Sputum Sputum Culture - Preliminary 08/06/21 16:58 Blood Culture - Preliminary Blood No Growth after 24 hours 08/06/21 17:04 Blood Culture - Preliminary Blood No Growth after 24 hours 08/06/21 10:55 Urine Culture - Final Urine,Voided Assessment and Plan Assessment: 1. Status post mitral valve replacement, tricuspid valve repair and single- vessel bypass grafting. 2. Right-sided pleural effusion 3. Coagulopathy. Resolved 4. History of congestive heart failure 5. History of valvular heart disease with previous mitral valve repair with a mitral clip at [facility] 6. History of coronary artery disease 7. History of hyperlipidemia 8. History of renal insufficiency 9. Previous history of atrial fibrillation 10. Leukocytosis White blood cell up to 15.3. Critical care services ordering UA. No need for antibiotics at this time per critical care will continue to monitor. Sputum culture currently pending Thank you for this consultation we will continue to follow patient closely throughout stay Patient remains in the intensive care unit Repeat labs ordered Patient to be transitioned off IV insulin to sliding scale coverage. A1c 5.8
--- NOTE | 2021-08-08 10:11 | P.PN ---
Subjective Patient is seen for follow-up for acute kidney injury on top of chronic kidney disease. Denies any significant complaints. 24 hour urine output documented at 1.1 L Serum creatinine is 2. 5 mg/dL today. Status post IV Bumex 1 yesterday. Patient continues to have bilateral chest tubes This morning patient is sitting up in a bedside chair. No significant complaints today. He did walk in the hallway yesterday. Objective - Vital Signs Vital signs: Vital Signs Temp 97.9 F 08/08/21 04:00 Pulse 66 08/08/21 09:00 Resp 22 08/08/21 09:00 BP 124/105 08/08/21 09:00 Pulse Ox 100 08/08/21 09:00 Intake & Output 08/07/21 08/08/21 08/08/21 18:59 06:59 18:59 Intake Total 850 1010 660 Output Total 830 1055 275 Balance 20 -45 385 Weight 74 kg Intake: IV 100 Sodium Ferric Gluconat- 100 Sucrose 125 mg In Sodium Chloride 0.9% 100 ml @ 100 mls/hr IVPB ONCE ONE Rx#:[id number] Oral 850 910 660 Output: Drainage [address] 120 130 100 Right Posterior 360 175 175 Urine 350 750 Other: Voiding Method Urinal # Voids 1 1 # Bowel Movements 1 ABP, PAP, CO, CI - Last Documented Arterial Blood Pressure 119/35 Pulmonary Artery Pressure 35/28 Cardiac Output 5 Cardiac Index 2.7 - Exam Patient is awake comfortable. Not in any acute distress Examination of the heart S1 and S2 Examination lungs bilateral breath sounds heard bilateral chest tubes present Abdomen is soft Examination lower extremity shows 2+ edema bilateral lower extremities EGYPTOLOGIST exam grossly intact - Labs CBC & Chem 7: 08/08/21 07:08 08/08/21 07:08 Labs: Abnormal Lab Results - Last 24 Hours (Table) 08/07/21 08/07/21 08/07/21 Range/Units 11:35 16:54 20:11 WBC (3.8-10.6) k/uL RBC (4.30-5.90) m/uL Hgb (13.0-17.5) gm/dL Hct (39.0-53.0) % MCV (80.0-100.0) fL RDW (11.5-15.5) % Neutrophils # (1.3-7.7) k/uL Lymphocytes # (1.0-4.8) k/uL PT (9.0-12.0) sec INR (<1.2) Sodium (137-145) mmol/L BUN (9-20) mg/dL Creatinine (0.66-1.25) mg/dL Glucose (74-99) mg/dL POC Glucose (mg/dL) 188 H 187 H 154 H (75-99) mg/dL Calcium (8.4-10.2) mg/dL Magnesium (1.6-2.3) mg/dL 08/08/21 08/08/21 08/08/21 Range/Units 06:40 07:08 07:08 WBC 17.1 H (3.8-10.6) k/uL RBC 2.62 L (4.30-5.90) m/uL Hgb 8.3 L (13.0-17.5) gm/dL Hct 26.5 L (39.0-53.0) % MCV 100.9 H (80.0-100.0) fL RDW 20.6 H (11.5-15.5) % Neutrophils # 15.3 H (1.3-7.7) k/uL Lymphocytes # 0.6 L (1.0-4.8) k/uL PT 13.0 H (9.0-12.0) sec INR 1.2 H (<1.2) Sodium (137-145) mmol/L BUN (9-20) mg/dL Creatinine (0.66-1.25) mg/dL Glucose (74-99) mg/dL POC Glucose (mg/dL) 136 H (75-99) mg/dL Calcium (8.4-10.2) mg/dL Magnesium (1.6-2.3) mg/dL 08/08/21 Range/Units 07:08 WBC (3.8-10.6) k/uL RBC (4.30-5.90) m/uL Hgb (13.0-17.5) gm/dL Hct (39.0-53.0) % MCV (80.0-100.0) fL RDW (11.5-15.5) % Neutrophils # (1.3-7.7) k/uL Lymphocytes # (1.0-4.8) k/uL PT (9.0-12.0) sec INR (<1.2) Sodium 136 L (137-145) mmol/L BUN 94 H (9-20) mg/dL Creatinine 2.51 H (0.66-1.25) mg/dL Glucose 124 H (74-99) mg/dL POC Glucose (mg/dL) (75-99) mg/dL Calcium 8.0 L (8.4-10.2) mg/dL Magnesium 2.8 H (1.6-2.3) mg/dL Microbiology - Last 24 Hours (Table) 08/07/21 04:05 Gram Stain - Preliminary Sputum Sputum Culture - Preliminary 08/06/21 16:58 Blood Culture - Preliminary Blood No Growth after 24 hours 08/06/21 17:04 Blood Culture - Preliminary Blood No Growth after 24 hours 08/06/21 10:55 Urine Culture - Final Urine,Voided Assessment and Plan Assessment: 1. Acute kidney injury, ATN currently nonoliguric, mostly hemodynamic and associated with anemia as well. Patient is status post diuresis. So far diuretics have been on hold however I we will give a dose of Bumex today. 2. Anemia postoperatively, Patient is status post packed RBCs , started on Aranesp. Iron saturation 15% 3. Coronary artery disease status post coronary artery bypass surgery 1 with mitral valve replacement and tricuspid valve repair, 4. Chronic kidney disease NKF stage IIIB baseline creatinine about 1.6-1.7. Serum creatinine as low as 1.2 on 07/28/2021,? Falsely low secondary to volume overload 5. 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 Mild volume overload 7. Metabolic acidosis associated with renal failure. Started on sodium bicarb today. Expect improvement with diuresis. Plan: Decrease sodium bicarb to decrease the sodium load. Hold diuretics today. Patient will likely need to resume oral Bumex from tomorrow.
--- NOTE | 2021-08-08 11:07 | P.PN ---
Subjective Progress Note Date: 08/08/21 This is a 81-year-old female who had mitral valve replacement, tricuspid valve repair in 1 vessel bypass surgery on 328 along with closure of ASD. Patient had mitral valve. In the past for mitral insufficiency. Patient seemed to be relatively stable. He has bilateral pleural chest tube and also pigtail catheters. Denies any significant chest pain or shortness of breath. He seemed to be in paced rhythm. Doesn't appear to be in acute distress. His creatinine is going up. Patient has history of chronic renal failure. Nephrology is consulted. We'll continue current medical therapy. Increase activity as tolerated. Further recommendations depend upon the clinical course. no acute cardiac arrhythmias. 08/05/2021: This patient had replacement of right pleural tube yesterday by radiologist. Still has a left pleural tube for pneumothorax. Patient is complaining of fatigue and tiredness. Complaints of some chest pain. His creatinine has shown some improvement. He is off diuretics. Patient has a pacemaker rhythm with underlying atrial fibrillation. There is a plan to restart Coumadin soon. Otherwise patient is making slow but steady progress. We'll continue rest of the management along with inspiratory spirometry. 08/06/2021: Patient is still has bilateral chest tubes with about 60-80 mL of drainage. He is complaining of being fatigued and tired. His urine output seemed to be on the low side and creatinine is slightly higher. Seen by an a properly who recommended to keep the patient off diuretics. Patient isn't pacer rhythm. Back on Coumadin. Continue rest of the medication and incentive spirometry. Will follow. 08/07/2021: This patient still has bilateral chest tubes with a significant drainage. Apparently the chest tube still in place. His urine output output is marginal. Creatinine is about 2.3. Is going to receive IV Bumex. Patient remains in pacemaker rhythm. Denies any chest pain. He happened to ambulate with exertional shortness of breath. Patient's white count is elevated. No fever. Sepsis workup is being done. Patient is otherwise clinically stable. We'll continue current medical therapy including Coumadin. Will follow 08/08/2021: This patient seemed to be clinically have on the same. Still have some drainage from the chest tubes and they will be continued. Apparently there'll have Pleurx treatment before discharge. Patient is in pacemaker rhythm. Blood pressure is reasonable. His creatinine is slightly high. Patient is mildly fluid overloaded being followed by nephrology. Patient is ambulating. Continue current medical therapy. Incentive spirometry. Patient is on Coumadin. Further recommendations depend upon the clinical course Objective - Vital Signs Vital signs: Vital Signs Temp 97.9 F 08/08/21 04:00 Pulse 66 08/08/21 09:00 Resp 22 08/08/21 09:00 BP 124/105 08/08/21 09:00 Pulse Ox 100 08/08/21 09:00 Intake & Output 08/07/21 08/08/21 08/08/21 18:59 06:59 18:59 Intake Total 850 1010 660 Output Total 830 1055 275 Balance 20 -45 385 Weight 74 kg Intake: IV 100 Sodium Ferric Gluconat- 100 Sucrose 125 mg In Sodium Chloride 0.9% 100 ml @ 100 mls/hr IVPB ONCE ONE Rx#:[id number] Oral 850 910 660 Output: Drainage [address] 120 130 100 Right Posterior 360 175 175 Urine 350 750 Other: Voiding Method Urinal # Voids 1 1 # Bowel Movements 1 ABP, PAP, CO, CI - Last Documented Arterial Blood Pressure 119/35 Pulmonary Artery Pressure 35/28 Cardiac Output 5 Cardiac Index 2.7 - Exam GENERAL EXAM: Patient is alert and oriented and doesn't appear to be in any acute distress HEENT: Normocephalic. Normal reaction of pupils, equal size, normal range of extraocular motion. No erythema or exudates in the throat. NECK: No masses, no nuchal rigidity. CHEST: Postsurgical with the chest tubes and catheters LUNGS: Diminished air entry: Bilateral chest tubes present HEART: S1 and S2 normal with no audible mumurs or gallops. Regular rhythm, femorals equal on both sides.. ABDOMEN: No hepatosplenomegaly, normal bowel sounds, no guarding or rigidity. SKIN: No rashes CENTRAL NERVOUS SYSTEM: No focal deficits. EXTREMITIES: No cyanosis, clubbing or edema. - Labs CBC & Chem 7: 08/08/21 07:08 08/08/21 07:08 Labs: Abnormal Lab Results - Last 24 Hours (Table) 08/07/21 08/07/21 08/07/21 Range/Units 11:35 16:54 20:11 WBC (3.8-10.6) k/uL RBC (4.30-5.90) m/uL Hgb (13.0-17.5) gm/dL Hct (39.0-53.0) % MCV (80.0-100.0) fL RDW (11.5-15.5) % Neutrophils # (1.3-7.7) k/uL Lymphocytes # (1.0-4.8) k/uL PT (9.0-12.0) sec INR (<1.2) Sodium (137-145) mmol/L BUN (9-20) mg/dL Creatinine (0.66-1.25) mg/dL Glucose (74-99) mg/dL POC Glucose (mg/dL) 188 H 187 H 154 H (75-99) mg/dL Calcium (8.4-10.2) mg/dL Magnesium (1.6-2.3) mg/dL Procalcitonin (0.02-0.09) ng/mL 08/08/21 08/08/21 08/08/21 Range/Units 06:40 07:08 07:08 WBC 17.1 H (3.8-10.6) k/uL RBC 2.62 L (4.30-5.90) m/uL Hgb 8.3 L (13.0-17.5) gm/dL Hct 26.5 L (39.0-53.0) % MCV 100.9 H (80.0-100.0) fL RDW 20.6 H (11.5-15.5) % Neutrophils # 15.3 H (1.3-7.7) k/uL Lymphocytes # 0.6 L (1.0-4.8) k/uL PT (9.0-12.0) sec INR (<1.2) Sodium (137-145) mmol/L BUN (9-20) mg/dL Creatinine (0.66-1.25) mg/dL Glucose (74-99) mg/dL POC Glucose (mg/dL) 136 H (75-99) mg/dL Calcium (8.4-10.2) mg/dL Magnesium (1.6-2.3) mg/dL Procalcitonin 1.15 H (0.02-0.09) ng/mL 08/08/21 08/08/21 Range/Units 07:08 07:08 WBC (3.8-10.6) k/uL RBC (4.30-5.90) m/uL Hgb (13.0-17.5) gm/dL Hct (39.0-53.0) % MCV (80.0-100.0) fL RDW (11.5-15.5) % Neutrophils # (1.3-7.7) k/uL Lymphocytes # (1.0-4.8) k/uL PT 13.0 H (9.0-12.0) sec INR 1.2 H (<1.2) Sodium 136 L (137-145) mmol/L BUN 94 H (9-20) mg/dL Creatinine 2.51 H (0.66-1.25) mg/dL Glucose 124 H (74-99) mg/dL POC Glucose (mg/dL) (75-99) mg/dL Calcium 8.0 L (8.4-10.2) mg/dL Magnesium 2.8 H (1.6-2.3) mg/dL Procalcitonin (0.02-0.09) ng/mL Microbiology - Last 24 Hours (Table) 08/07/21 04:05 Gram Stain - Preliminary Sputum Sputum Culture - Preliminary 08/06/21 16:58 Blood Culture - Preliminary Blood No Growth after 24 hours 08/06/21 17:04 Blood Culture - Preliminary Blood No Growth after 24 hours 08/06/21 10:55 Urine Culture - Final Urine,Voided Assessment and Plan (1) Status post mitral valve replacement Current Visit: Yes Status: Acute Code(s): Z95.2 - PRESENCE OF PROSTHETIC HEART VALVE SNOMED Code(s): 6398974276858 (2) Status post single vessel coronary artery bypass Current Visit: Yes Status: Acute Code(s): Z95.1 - PRESENCE OF AORTOCORONARY BYPASS GRAFT SNOMED Code(s): 725219817 (3) Pleural effusion Current Visit: No Status: Acute Code(s): J90 - PLEURAL EFFUSION, NOT ELS EWHERE CLASSIFIED SNOMED Code(s): 38331507 (4) Acute on chronic renal failure Current Visit: Yes Status: Acute Code(s): N17.9 - ACUTE KIDNEY FAILURE, UNSPECIFIED; N18.9 - CHRONIC KIDNEY DISEASE, UNSPECIFIED SNOMED Code(s): 591261468 (5) Chronic a-fib Current Visit: No Status: Acute Code(s): I48.2 - CHRONIC ATRIAL FIBRILLATION * DO NOT USE * SNOMED Code(s): 863356769 (6) Presence of permanent cardiac pacemaker Current Visit: Yes Status: Acute Code(s): Z95.0 - PRESENCE OF CARDIAC PACEMAKER SNOMED Code(s): 914876638 Plan: Bumex is being held. Continue with Coumadin and rest of the management. Increase activity. Incentive spirometry. Follow-up
[2021-08-08 11:51] LABS: Glucose,Whole Blood 185 mg/dL (75-99)
--- NOTE | 2021-08-08 12:43 | P.PN ---
Subjective Progress Note Date: 08/08/21 This is a very pleasant 81-year-old male patient is being seen in follow-up. The patient is postop day #7. 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 Note that the patient had a preoperative right-sided pleural effusion along with various other medical problems and comorbidities. Postop, the patient becomes hypoxic and short of breath post extubation. He was on high flow oxygen. The right-sided pleural effusion was noted and at that point a pigtail catheter was inserted into the right hemithorax. The catheter was inserted and the patient was having adequate drainage for the past 48 hours and since yesterday, there has been no output. The patient continues to have a left-sided chest tube and output has been around 400 mL over the past 8-12 hours. The patient is using incentive spirometer. The patient is currently on 8 L of oxygen by nasal cannula with a pulse oximetry 96%. The patient is pulling approximately 1000 on his incentive spirometer. His cardiac rhythm is basically rate of 60. The patient is hemodynamically stable and the patient is on no pressors at this point in time. He doesn't component of chronic kidney disease. The BUN is at 76 with a creatinine of 2.36. Potassium level is at 3.7 with a sodium level of 137. Hemoglobin is at 7.8 with a platelet count 234. A repeat chest x-ray was done and it showed cardiomegaly, a loculated right-sided pleural effusion, impacted on the right, and a chest tube on the left and post thoracotomy changes in the mid sternal area. The patient has chronic kidney disease, obstructive sleep apnea, he has undergone previous thoracenteses regarding the right-sided pleural effusion and pleural fluid cytology has been essentially negative for malignancy. He is awake and alert and following commands and answering questions appropriately. On today's evaluation of 08/05/2021, I'm seeing the patient in the follow-up. The patient is postop day #8. Noted the patient continues to have drainage from the chest tube. The chest tube on the left has drained approximately 600 mL total since 24 hours and 200 mL over the past 8 hours. Note that the patient also has a new pigtail catheter inserted by interventional radiology and immediately after insertion, a total of 900 mL of fluid was aspirated and the patient has put out another 600 mL over the past 8 hours. As such, the output remains considerably high. Meanwhile, the chest x-ray from today showing improvement in the volume status and improvement in the right-sided pleural effusion. No localization at this point in time. Pigtail catheter is in a good location. The patient remains on 3 L of O2 nasal cannula. White cell count is 14.5 with hemoglobin 8.2 and a platelet count of 192. Sodium is at 139 with a potassium level of 3.9 and a BUN of 85 with a creatinine of 2.2 and the creatinine is stable for now. Patient continues to use incentive spirometer. The patient has a pacemaker in place and the cardiac rhythmat this point in time. Sternal wound is dry clean and intact. The patient is afebrile. The patient is hemodynamically stable at this point in time. No nausea. No vomiting. Abdomen is slightly distended and the patient may have some partial ileus. Nevertheless, his passing gas and he is also having regular bowel movements. On 08/06/2021, the patient is being seen for a follow-up and the patient is postop day #9. On today's evaluation, the patient is sitting up on a chair. He did ambulate yesterday for a total of 3 times. Using incentive spirometer and pulling approximately 1200 mL on dialysis. The patient continues to have a left-sided chest tube and the total amount of output over the past 24 hours has been in the order of 550 mL an over the past 8 hours has been 210 mL. The patient also has a pigtail catheter on the right and the total amount of output has been 600 mL over the past 24 hours and 150 mL over the past 8 hours. The chest x-ray from today shows residual bilateral pleural effusion right more than left. There is some cardiomegaly. Chest tubes remains in a good location. No evidence of any air leak and the Pleur-evac on the left. Otherwise, the patient is doing well. No significant respiratory distress and the patient remains on 2 L of O2 by nasal cannula and the blood work from today shows a white cell count of 15.3 which is concerning at this number is on the right and hemoglobin of 8.6. Correlation profile is within normal. BUN is 89 with a creatinine of 2.4 and the patient is known to have chronic kidney disease. Creatinine yesterday was 2.2. The rest of the electrodes are all within normal limits. On 08/07/2021, I'm seeing the patient for a follow-up. The patient is still having excessive output from the chest tubes. The left-sided chest tube has drained approximately 530 mL over the past 24 hours in the right-sided chest tube is draining around 1200 mL over the past 24 hours. As such, the chest tubes are going to stay in place. There is a small left apical pneumothorax. Incentive spirometer is being used on the patient's pulling approximately tho usand. Of concern also is the rise in the white cell count which is up to 18. The pro-Level Was 1.28. The Patient Has Chronic Kidney Disease. No Fever. Cultures Were Sent and Was Awaiting for Final Results. Meanwhile, the patient's white cell count is 18 with hemoglobin of 8.6 and a BUN is at 99 with a creatinine of 2.3 and his sodium level is at 135. Moving all 4 extremity is without any limitation. No altered mentation. Sternum stable clean and intact. No chest pain. Abdomen is slightly distended. No diarrhea. He did have a small bowel movement today. Serum bicarb is down to 18 the patient is going to be started on oral bicarbonate replacement. The patient remains on oxygen at 3 L per minute nasal cannula. 08/08/2021, the patient is postop day #11. The patient is sitting up on a chair and the patient is calm and comfortable. The active issue for now remains downgoing drainage from the tubes from both chest. The patient has a right- sided pigtail catheter that has drained approximately 170 mL over the past 8 hours and 550 mL over the past 24 hours. As for the left-sided chest tube, this has drained approximately 130s over the past 8 hours and 260 mL over the past 24 hours. The drainage remains considerably high. Continues using incentive spirometer. No evidence of any pneumothorax on today's chest x-ray. The sternum stable clean and intact. There is some residual pleural effusion on the right which is loculated based on today's chest x-ray. The patient otherwise doing well. The patient has no fever. The pro-calcitonin level needs to be rechecked. The patient's creatinine is stable at 2.5. The patient has a mean of 94. The white cell count is mildly elevated yet improved compared to yesterday and the white cell count is at 17.1. The patient is on oral bicarbonate replacement and a serum bicarbonate 25 on today's evaluation. Objective - Vital Signs Vital signs: Vital Signs Temp 97.9 F 08/08/21 04:00 Pulse 65 08/08/21 11:00 Resp 21 08/08/21 11:00 BP 115/72 08/08/21 11:00 Pulse Ox 93 L 08/08/21 11:00 Intake & Output 08/07/21 08/08/21 08/08/21 18:59 06:59 18:59 Intake Total 850 1010 660 Output Total 830 1055 525 Balance 20 -45 135 Weight 74 kg Intake: IV 100 Sodium Ferric Gluconat- 100 Sucrose 125 mg In Sodium Chloride 0.9% 100 ml @ 100 mls/hr IVPB ONCE ONE Rx#:[id number] Oral 850 910 660 Output: Drainage [address] 120 130 100 Right Posterior 360 175 175 Urine 350 750 250 Other: Voiding Method Urinal # Voids 1 1 # Bowel Movements 1 ABP, PAP, CO, CI - Last Documented Arterial Blood Pressure 119/35 Pulmonary Artery Pressure 35/28 Cardiac Output 5 Cardiac Index 2.7 - Exam CONSTITUTIONAL: Sitting up to the bedside chair in the intensive care unit, appears comfortable, cooperative, and is in no apparent acute distress. HEENT: Neck is supple, no JVD, no lymphadenopathy. RESPIRATORY: Lungs sounds essentially clear throughout, diminished to his bilateral bases, right greater than left. Scattered wheezes and rhonchi. Respirations are symmetrical and nonlabored. Currently on 2 L high flow nasal cannula, oxygen saturations 96%. Able to achieve more than 1000 MLS on the incentive spirometer. CARDIOVASCULAR: Regular rhythm and rate. S1 and S2 present, negative for S3, gallop or murmur. Sternum is stable. Palpable peripheral pulses bilaterally. No calf pain or tenderness noted. Heart hugger in place with patient demonstrating appropriate use with encouragement. Knee-high SUMI hose and sequential compression devices in place to his bilateral lower extremities. Bedside telemetry showing paced rhythm at 60 BPM. GASTROINTESTINAL: Abdomen soft, nontender, distended. Active bowel sounds present 4 quadrants. Tolerating diet. No guarding or rigidity. Bowel movement 2 in the last 24 hours. The abdomen is slightly distended and tympanic at this point in time. GENITOURINARY: Continues to void. Urine output is adequate for now. INTEGUMENTARY: Skin is warm and dry with no evidence of clubbing or cyanosis. Midline sternal incision clean dry and well approximated, covered with dry intact dressing. Left lower extremity EVH site well approximated without redness or drainage. NEUROLOGIC: Cranial nerves II through XII intact. No focal deficits. MUSKULOSKELETAL: Able to move all extremities, strength equal bilaterally, generalized weakness. PSYCHIATRIC: Alert and oriented 3, appropriate affect. - Labs CBC & Chem 7: 08/08/21 07:08 08/08/21 07:08 Labs: Abnormal Lab Results - Last 24 Hours (Table) 08/07/21 08/07/21 08/08/21 Range/Units 16:54 20:11 06:40 WBC (3.8-10.6) k/uL RBC (4.30-5.90) m/uL Hgb (13.0-17.5) gm/dL Hct (39.0-53.0) % MCV (80.0-100.0) fL RDW (11.5-15.5) % Neutrophils # (1.3-7.7) k/uL Lymphocytes # (1.0-4.8) k/uL PT (9.0-12.0) sec INR (<1.2) Sodium (137-145) mmol/L BUN (9-20) mg/dL Creatinine (0.66-1.25) mg/dL Glucose (74-99) mg/dL POC Glucose (mg/dL) 187 H 154 H 136 H (75-99) mg/dL Calcium (8.4-10.2) mg/dL Magnesium (1.6-2.3) mg/dL Procalcitonin (0.02-0.09) ng/mL 08/08/21 08/08/21 08/08/21 Range/Units 07:08 07:08 07:08 WBC 17.1 H (3.8-10.6) k/uL RBC 2.62 L (4.30-5.90) m/uL Hgb 8.3 L (13.0-17.5) gm/dL Hct 26.5 L (39.0-53.0) % MCV 100.9 H (80.0-100.0) fL RDW 20.6 H (11.5-15.5) % Neutrophils # 15.3 H (1.3-7.7) k/uL Lymphocytes # 0.6 L (1.0-4.8) k/uL PT 13.0 H (9.0-12.0) sec INR 1.2 H (<1.2) Sodium (137-145) mmol/L BUN (9-20) mg/dL Creatinine (0.66-1.25) mg/dL Glucose (74-99) mg/dL POC Glucose (mg/dL) (75-99) mg/dL Calcium (8.4-10.2) mg/dL Magnesium (1.6-2.3) mg/dL Procalcitonin 1.15 H (0.02-0.09) ng/mL 08/08/21 08/08/21 Range/Units 07:08 11:49 WBC (3.8-10.6) k/uL RBC (4.30-5.90) m/uL Hgb (13.0-17.5) gm/dL Hct (39.0-53.0) % MCV (80.0-100.0) fL RDW (11.5-15.5) % Neutrophils # (1.3-7.7) k/uL Lymphocytes # (1.0-4.8) k/uL PT (9.0-12.0) sec INR (<1.2) Sodium 136 L (137-145) mmol/L BUN 94 H (9-20) mg/dL Creatinine 2.51 H (0.66-1.25) mg/dL Glucose 124 H (74-99) mg/dL POC Glucose (mg/dL) 185 H (75-99) mg/dL Calcium 8.0 L (8.4-10.2) mg/dL Magnesium 2.8 H (1.6-2.3) mg/dL Procalcitonin (0.02-0.09) ng/mL Microbiology - Last 24 Hours (Table) 08/07/21 04:05 Gram Stain - Preliminary Sputum Sputum Culture - Preliminary 08/06/21 16:58 Blood Culture - Preliminary Blood No Growth after 24 hours 08/06/21 17:04 Blood Culture - Preliminary Blood No Growth after 24 hours 08/06/21 10:55 Urine Culture - Final Urine,Voided Assessment and Plan Plan: 1 postop day # 11 following mitral valve replacement, tricuspid valve repair and single-vessel bypass surgery with SVG to acute marginal. 2 post thoracotomy with secondary atelectatic changes and bilateral pleural effusion with hypoxic respiratory failure, currently on 2 L O2 by nasal cannula 3 chronic right-sided loculated right-sided pleural effusion, post previous thoracentesis with negative fluid cytology. The patient has a pigtail catheter insertion 2 and the output from the predicted From the right is considerably high still. The patient continues to have increased output from the chest tubes 4 post thoracotomy left-sided pleural effusion, chest tube is in place on the left, the output remains high in the patient is a small left apical pneumotho rax. The patient continues to have increased output from the left-sided chest tube 5 acute hypoxic respiratory failure currently on 2 L of oxygen by cannula 6 history of sick sinus syndrome and the patient has a [employer] pacemaker placement in 2017 7 chronic atrial fibrillation maintained on medical condition with warfarin on outpatient basis. The patient has undergone closure of the left atrial appendage 8 chronic systolic heart failure 98 shows septal defect post closure 10 chronic kidney disease stage III 11 restrictive lung disease with a preop FEV1 of 47% of predicted 12 seconds sleep apnea 13 postoperative acute blood loss anemia, expected outcome of surgery. The hemoglobin remains stable. 14 leukocytosis , no fever, pro-calcitonin level is improving is down to 1.1, probably due to underlying chronic kidney disease. No evidence of any infection. The patient is not covered with any antibiotics at this point in time. 15 abdominal distention, rule out ileus. This isn't inactive in stable problem Plan Clinically stable clinically. The active issue for now remains the active output from the chest tubes bilaterally. Monitor fever pattern, currently afebrile White cell count is improving Awaiting final cultures and no need for antibiotics Repeat pro-calcitonin level in a.m. and the level is down to 1.05, lower Serum bicarbonate level has improved Keep the chest tube in place Repeat chest x-ray in the morning Continue using incentive spirometer Continue aggressive pulmonary toileting We'll continue to follow. Keep the patient ICU for another 24 hours.
[2021-08-08 16:59] LABS: Glucose,Whole Blood 204 mg/dL (75-99)
[2021-08-08 20:15] LABS: Glucose,Whole Blood 95 mg/dL (75-99)
[2021-08-08] MEDS: ATORVASTATIN 40 MG TAB PO SCH (20:31)
[2021-08-08] MEDS: CALCIUM ACETATE 667 MG TAB PO SCH (20:31)
[2021-08-08] MEDS: MELATONIN 3 MG TABLET PO SCH (20:32)
[2021-08-09 06:33] LABS: Glucose,Whole Blood 140 mg/dL (75-99)
--- NOTE | 2021-08-09 06:40 | XR ---
EXAMINATION TYPE: XR chest 1V portable DATE OF EXAM: 08/09/2021 5:29 AM COMPARISON:Chest radiographs from 08/08/2021 TECHNIQUE: XR chest 1V portable Frontal view of the chest. CLINICAL INDICATION:Male, 81 years old with history of post cardiac surgery; FINDINGS: Lungs/Pleura: Similar right blunting of the costophrenic angles. Scattered airspace opacities seen th roughout the lungs are not significantly different from prior. Pulmonary vascularity: Unremarkable. Heart/mediastinum: Cardiomediastinal silhouette is enlarged and stable. Postsurgical changes of the [facility] [place] remains in surgical clips. Single-lead cardiac conduction device overlying the l eft hemithorax with lead projecting over the right ventricle. Musculoskeletal:Midline sternotomy wires and surgical clips project over the mediastinum. Lines/Tubes: Left thoracotomy tube is present without definitive pneumothorax. IMPRESSION: 1. Status post surgery with left thoracotomy tube without definitive pneumothorax. 2. Similar multifocal airspace opacities. 3. Similar small right pleural effusion. 4. Similar cardiomegaly.
[2021-08-09] MEDS: INSULIN ASPART (NovoLOG) 100 UNIT/ML VIAL SQ SCH ×4 (06:42→20:58)
[2021-08-09] MEDS: PANTOPRAZOLE 40 MG TABLET PO SCH (06:42)
[2021-08-09 07:01] LABS: Anisocytosis Moderate; Basophils % (A) 0 %; Eosinophils # (A) 0.1 k/uL (0-0.7); Eosinophils % (A) 1 %; HGB 8.4 gm/dL (13.0-17.5); Hypochromasia Marked; Lymphocytes # (A) 0.5 k/uL (1.0-4.8); Lymphocytes % (A) 3 %; MCH 30.9 pg (25.0-35.0); MCV 103.1 fL (80.0-100.0); Macrocytosis Moderate; Mean Platelet Volume 9.3; Monocytes % (A) 6 %; Neutrophils # (A) 15.4 k/uL (1.3-7.7); Neutrophils % (A) 90 %; Platelet Count 264 k/uL (150-450); Poikilocytosis Moderate; RBC 2.71 m/uL (4.30-5.90); RDW 20.5 % (11.5-15.5); WBC 17.2 k/uL (3.8-10.6)
[2021-08-09 07:07] LABS: INR 1.2 (<1.2)
[2021-08-09] MEDS: IPRATROPIUM-ALBUTEROL 3 ML NEB INHALATION SCH ×4 (07:10→19:39)
[2021-08-09 07:17] LABS: Calcium 8.1 mg/dL (8.4-10.2); Potassium 4.8 mmol/L (3.5-5.1)
--- NOTE | 2021-08-09 07:46 | P.PN ---
Subjective Progress Note Date: 08/09/21 Principal diagnosis: Mitral valve regurgitation, tricuspid valve regurgitation, coronary artery disease. Previous medical history of CAD with previous cardial infarction and PCI, hypertension, chronic atrial fibrillation on Coumadin for anticoagulation status post cardioversion, sick sinus syndrome [facility] [facility] permanent pacemaker placement in 2017, chronic systolic heart failure, atrial septal defect status post closure, previous MitraClip in 2019, chronic renal insufficiency, previous tobacco dependence, severe restrictive lung disease, obstructive sleep apnea, recurrent right-sided pleural effusio with previous thoracentesis x 4, remote history of pneumonia, family history of premature coronary artery disease POD #12 mitral valve replacement with 31 mm Mosaic porcine valve prosthesis, tricuspid valve repair with 30 mm MC3 band, coronary artery bypass grafting 1 with reverse saphenous vein graft to the obtuse marginal artery, endovascular vein harvest of the left greater saphenous vein, epi-aortic ultrasound, closure of the left atrial appendage, closure of ASD Postoperative acute blood loss anemia and thrombocytopenia, expected given hemodilution and cardiopulmonary bypass pump Coagulopathy, unexpected, last coumadin dose 07/22/21 Right-sided pleural effusion, expected given history of previous right-sided effusion with thoracentesis 4, status post right-sided pigtail catheter placement by interventional radiology Leukocytosis, unknown source, afebrile, procalcitonin 1.28 Altered mental status after surgery due to delirium from lack of sleep, resolved The patient was seen and examined this morning sitting up in a recliner in the intensive care unit in no acute distress eating breakfast. He denies any pain other than mouth pain, denies shortness of breath. Currently on 6 L nasal cannula, achieving 1000 mL on his incentive spirometry. Remains in controlled atrial fibrillation. Labs and x-rays reviewed this morning. Left pleural chest tube and right pigtail catheter remain with large serous output. Patient consuming minimal food due to mouth pain, changed nystatin to Kools solution, patient reports minimal improvement. Labs and x-ray reviewed. Urine/sputum/blood cultures sent, urine culture finalized as negative, blood cultures demonstrate no growth so far, sputum culture gram stain reports gram negative bacilli. Patient remains afebrile. Ambulated in hallway multiple times with RN/PT/OT. Objective - Vital Signs Vital signs: Vital Signs Temp 97.6 F 08/09/21 04:00 Pulse 60 08/09/21 07:00 Resp 15 08/09/21 07:00 BP 132/112 08/09/21 07:00 Pulse Ox 94 L 08/09/21 07:00 Intake & Output 08/08/21 08/09/21 08/09/21 18:59 06:59 18:59 Intake Total 1380 500 Output Total 1285 525 Balance 95 -25 Weight 73.6 kg Intake: Oral 1380 500 Output: Drainage [address] 200 160 Right Posterior 435 190 Urine 650 175 Other: Voiding Method Urinal # Voids 1 # Bowel Movements 1 1 ABP, PAP, CO, CI - Last Documented Arterial Blood Pressure 119/35 Pulmonary Artery Pressure 35/28 Cardiac Output 5 Cardiac Index 2.7 - Exam CONSTITUTIONAL: Appears comfortable, cooperative, no acute distress RESPIRATORY: Lungs sounds diminished bilaterally. Respirations even, nonlabored. Currently on 6 L nasal cannula with oxygen saturation 94%. Able to achieve 1000 mL on incentive spirometry. Strong cough. CARDIOVASCULAR: S1, S2 present. Irregular rate and rhythm, controlled atrial fibrillation on telemetry. Sternum stable. Palpable peripheral pulses bilaterally. Trace bilateral lower extremity edema present. No calf pain or tenderness noted. Heart hugger in place with patient demonstrating appropriate use. Antiembolism stockings, SCDs present. GASTROINTESTINAL: Abdomen soft, nontender, slightly distended. Active bowel sounds present 4 quadrants. Tolerating minimal diet due to mouth pain. Positive bowel movement 08/09/21 GENITOURINARY: Continues to void, 825 mL in the last 24 hours INTEGUMENTARY: Skin is warm and dry with evidence of good perfusion. Anterior chest incision well approximated and covered with dry intact dressing. Left lower extremity EVH site well approximated without redness or drainage. NEUROLOGIC: Cranial nerves II through XII intact MUSKULOSKELETAL: Able to move all extremities, strength equal bilaterally but generalized weakness present PSYCHIATRIC: Oriented to person place and time INVASIVE LINES AND TUBES: Right pigtail/left pleural chest tube present and connected to wall suction, no air leaks present. Left pleural chest tube with 140 mL serous drainage overnight, 230 mL in the last 24 hours. Right-sided pigtail catheter with 190 mL serous drainage overnight, 500 mL the last 24 hours. - Allied health notes Allied health notes reviewed: nursing - Labs CBC & Chem 7: 08/09/21 06:35 08/09/21 06:35 Labs: Abnormal Lab Results - Last 24 Hours (Table) 08/08/21 08/08/21 08/08/21 Range/Units 07:08 07:08 07:08 WBC 17.1 H (3.8-10.6) k/uL RBC 2.62 L (4.30-5.90) m/uL Hgb 8.3 L (13.0-17.5) gm/dL Hct 26.5 L (39.0-53.0) % MCV 100.9 H (80.0-100.0) fL MCHC (31.0-37.0) g/dL RDW 20.6 H (11.5-15.5) % Neutrophils # 15.3 H (1.3-7.7) k/uL Lymphocytes # 0.6 L (1.0-4.8) k/uL PT 13.0 H (9.0-12.0) sec INR 1.2 H (<1.2) Sodium (137-145) mmol/L BUN (9-20) mg/dL Creatinine (0.66-1.25) mg/dL Glucose (74-99) mg/dL POC Glucose (mg/dL) (75-99) mg/dL Calcium (8.4-10.2) mg/dL Magnesium (1.6-2.3) mg/dL Procalcitonin 1.15 H (0.02-0.09) ng/mL 08/08/21 08/08/21 08/08/21 Range/Units 07:08 11:49 16:57 WBC (3.8-10.6) k/uL RBC (4.30-5.90) m/uL Hgb (13.0-17.5) gm/dL Hct (39.0-53.0) % MCV (80.0-100.0) fL MCHC (31.0-37.0) g/dL RDW (11.5-15.5) % Neutrophils # (1.3-7.7) k/uL Lymphocytes # (1.0-4.8) k/uL PT (9.0-12.0) sec INR (<1.2) Sodium 136 L (137-145) mmol/L BUN 94 H (9-20) mg/dL Creatinine 2.51 H (0.66-1.25) mg/dL Glucose 124 H (74-99) mg/dL POC Glucose (mg/dL) 185 H 204 H (75-99) mg/dL Calcium 8.0 L (8.4-10.2) mg/dL Magnesium 2.8 H (1.6-2.3) mg/dL Procalcitonin (0.02-0.09) ng/mL 08/09/21 08/09/21 08/09/21 Range/Units 06:31 06:35 06:35 WBC 17.2 H (3.8-10.6) k/uL RBC 2.71 L (4.30-5.90) m/uL Hgb 8.4 L (13.0-17.5) gm/dL Hct 28.0 L (39.0-53.0) % MCV 103.1 H (80.0-100.0) fL MCHC 30.0 L (31.0-37.0) g/dL RDW 20.5 H (11.5-15.5) % Neutrophils # 15.4 H (1.3-7.7) k/uL Lymphocytes # 0.5 L (1.0-4.8) k/uL PT 13.0 H (9.0-12.0) sec INR 1.2 H (<1.2) Sodium (137-145) mmol/L BUN (9-20) mg/dL Creatinine (0.66-1.25) mg/dL Glucose (74-99) mg/dL POC Glucose (mg/dL) 140 H (75-99) mg/dL Calcium (8.4-10.2) mg/dL Magnesium (1.6-2.3) mg/dL Procalcitonin (0.02-0.09) ng/mL 08/09/21 Range/Units 06:35 WBC (3.8-10.6) k/uL RBC (4.30-5.90) m/uL Hgb (13.0-17.5) gm/dL Hct (39.0-53.0) % MCV (80.0-100.0) fL MCHC (31.0-37.0) g/dL RDW (11.5-15.5) % Neutrophils # (1.3-7.7) k/uL Lymphocytes # (1.0-4.8) k/uL PT (9.0-12.0) sec INR (<1.2) Sodium 134 L (137-145) mmol/L BUN 103 H* (9-20) mg/dL Creatinine 2.55 H (0.66-1.25) mg/dL Glucose 131 H (74-99) mg/dL POC Glucose (mg/dL) (75-99) mg/dL Calcium 8.1 L (8.4-10.2) mg/dL Magnesium (1.6-2.3) mg/dL Procalcitonin (0.02-0.09) ng/mL Microbiology - Last 24 Hours (Table) 08/06/21 17:04 Blood Culture - Preliminary Blood No Growth after 48 hours 08/06/21 16:58 Blood Culture - Preliminary Blood No Growth after 48 hours 08/07/21 04:05 Gram Stain - Preliminary Sputum Sputum Culture - Preliminary Gram Neg Bacilli - Imaging and Cardiology Chest x-ray: report reviewed, image reviewed Assessment and Plan Assessment: 1. Mitral valve regurgitation, previous MitraClip in 2019, status post post mitral valve replacement 2. Tricuspid valve regurgitation, status post tricuspid valve repair 3. Coronary artery disease with previous myocardial infarction and PCI, status post 1 vessel CABG 4. History of hypertension 5. Chronic atrial fibrillation on Coumadin for anticoagulation status post cardioversion, status post closure of the left atrial appendage 6. Sick sinus syndrome status post [facility] [facility] permanent pacemaker placement in 7. Chronic systolic heart failure 8. Atrial septal defect status post closure 9. Acute on chronic renal insufficiency stage IIIB, baseline creatinine 1.6-1.7 10. Previous tobacco dependence 11. Severe restrictive lung disease, preoperative FEV1 47% of predicted 12. Recurrent right-sided pleural effusion, patient had right sided thoracentesis twice in 2019 and twice in 2020, status post right-sided pigtail catheter placement by IR 13. Obstructive sleep apnea 14. Remote history of pneumonia 15. Family history of premature coronary artery disease 16. Postoperative acute blood loss anemia and thrombocytopenia, expected 17. Coagulopathy, unexpected 18. Leukocytosis, elevated pro-calcitonin, afebrile, unknown source 19. Altered mental status after surgery due to delirium from lack of sleep, resolved Plan: 1. Continue low-dose aspirin, statin. Will add norvasc 2. Continue Coumadin, we'll monitor daily PT/INR 3. Wean O2 as tolerated. Encourage incentive spirometry use 10 times every hour while awake. Bronchodilators per pulmonology. 4. Increase activity as tolerated. PT/OT/cardiac rehab following 5. Will monitor daily labs and x-rays. Urine/blood/sputum culture sent, pending final results but sputum gram stain reporting gram neg bacilli, abt per pulmonology 6. GI/DVT prophylaxis 7. Insulin management per primary care service. Patient is not diabetic, preoperative hemoglobin A1c 5.8% 8. Pain control per current medication regimen. Avoid narcotics 9. Continue left pleural chest tube and right pigtail catheter. May need right sided pleurx before discharge 10. Strict accurate intake and output. Daily weights 11. Encourage oral intake, encourage supplements to improve nutrition. Continue Kools solution oral rinse 12. Discharge planning in progress. Anticipate discharge to [facility] once able to remove chest tubes 13. More recommendations to follow based on patient's progress
[2021-08-09] MEDS: ASCORBIC ACID 500 MG TAB PO SCH (08:55)
[2021-08-09] MEDS: SODIUM BICARBONATE TAB 650 MG TAB PO SCH (08:55)
[2021-08-09] MEDS: FERROUS SULFATE 325 MG TAB PO SCH (08:55)
[2021-08-09] MEDS: guaiFENesin 600 MG TABLET.ER PO SCH ×2 (08:55→20:59)
[2021-08-09] MEDS: amLODIPine 5 MG TAB PO SCH (08:55)
[2021-08-09] MEDS: ASPIRIN 81 MG PO SCH (08:55)
[2021-08-09] MEDS: HEPARIN SODIUM,PORCINE/PF 5,000 UNIT/0.5 ML SYRINGE SQ SCH ×3 (08:55→23:57)
[2021-08-09] MEDS: allopurinoL 100 MG TAB PO SCH (08:56)
[2021-08-09] MEDS: FOLIC ACID 1 MG TAB PO SCH (08:56)
[2021-08-09] MEDS ORDERED: CEFEPIME 2 GM in SODIUM CHLORIDE 0.9% 100 ML IVPB SCH (09:00)
[2021-08-09] MEDS: SIMETHICONE PO SCH ×6 (09:30→21:09)
[2021-08-09] MEDS: NYSTATIN PO SCH ×6 (09:30→21:09)
[2021-08-09] MEDS: MAGNESIUM HYDROXIDE PO SCH ×6 (09:30→21:09)
[2021-08-09] MEDS: ALUMINUM HYDROXIDE PO SCH ×6 (09:30→21:09)
--- NOTE | 2021-08-09 09:32 | P.PN ---
Subjective Patient is seen in follow-up for acute kidney injury on chronic kidney disease. Renal function fairly stable. Good urine output. Denies chest pain or shortness of breath. Oral intake fair. Hemodynamically stable. Vital signs are stable. General: Awake and alert. No acute distress. HEENT: Head exam is unremarkable. LUNGS: Chest tubes noted. Breath sounds decreased. HEART: Rate and Rhythm are regular. ABDOMEN: Soft, no distention. EXTREMITITES: No edema. Objective - Vital Signs Vital signs: Vital Signs Temp 97.6 F 08/09/21 04:00 Pulse 60 08/09/21 07:00 Resp 15 08/09/21 07:00 BP 132/112 08/09/21 07:00 Pulse Ox 94 L 08/09/21 07:00 Intake & Output 08/08/21 08/09/21 08/09/21 18:59 06:59 18:59 Intake Total 1380 500 Output Total 1285 525 Balance 95 -25 Weight 73.6 kg Intake: Oral 1380 500 Output: Drainage [address] 200 160 Right Posterior 435 190 Urine 650 175 Other: Voiding Method Urinal # Voids 1 # Bowel Movements 1 1 ABP, PAP, CO, CI - Last Documented Arterial Blood Pressure 119/35 Pulmonary Artery Pressure 35/28 Cardiac Output 5 Cardiac Index 2.7 - Labs CBC & Chem 7: 08/09/21 06:35 08/09/21 06:35 Labs: Abnormal Lab Results - Last 24 Hours (Table) 08/08/21 08/08/21 08/08/21 Range/Units 07:08 11:49 16:57 WBC (3.8-10.6) k/uL RBC (4.30-5.90) m/uL Hgb (13.0-17.5) gm/dL Hct (39.0-53.0) % MCV (80.0-100.0) fL MCHC (31.0-37.0) g/dL RDW (11.5-15.5) % Neutrophils # (1.3-7.7) k/uL Lymphocytes # (1.0-4.8) k/uL PT (9.0-12.0) sec INR (<1.2) Sodium (137-145) mmol/L BUN (9-20) mg/dL Creatinine (0.66-1.25) mg/dL Glucose (74-99) mg/dL POC Glucose (mg/dL) 185 H 204 H (75-99) mg/dL Calcium (8.4-10.2) mg/dL Procalcitonin 1.15 H (0.02-0.09) ng/mL 08/09/21 08/09/21 08/09/21 Range/Units 06:31 06:35 06:35 WBC 17.2 H (3.8-10.6) k/uL RBC 2.71 L (4.30-5.90) m/uL Hgb 8.4 L (13.0-17.5) gm/dL Hct 28.0 L (39.0-53.0) % MCV 103.1 H (80.0-100.0) fL MCHC 30.0 L (31.0-37.0) g/dL RDW 20.5 H (11.5-15.5) % Neutrophils # 15.4 H (1.3-7.7) k/uL Lymphocytes # 0.5 L (1.0-4.8) k/uL PT 13.0 H (9.0-12.0) sec INR 1.2 H (<1.2) Sodium (137-145) mmol/L BUN (9-20) mg/dL Creatinine (0.66-1.25) mg/dL Glucose (74-99) mg/dL POC Glucose (mg/dL) 140 H (75-99) mg/dL Calcium (8.4-10.2) mg/dL Procalcitonin (0.02-0.09) ng/mL 08/09/21 Range/Units 06:35 WBC (3.8-10.6) k/uL RBC (4.30-5.90) m/uL Hgb (13.0-17.5) gm/dL Hct (39.0-53.0) % MCV (80.0-100.0) fL MCHC (31.0-37.0) g/dL RDW (11.5-15.5) % Neutrophils # (1.3-7.7) k/uL Lymphocytes # (1.0-4.8) k/uL PT (9.0-12.0) sec INR (<1.2) Sodium 134 L (137-145) mmol/L BUN 103 H* (9-20) mg/dL Creatinine 2.55 H (0.66-1.25) mg/dL Glucose 131 H (74-99) mg/dL POC Glucose (mg/dL) (75-99) mg/dL Calcium 8.1 L (8.4-10.2) mg/dL Procalcitonin (0.02-0.09) ng/mL Microbiology - Last 24 Hours (Table) 08/06/21 17:04 Blood Culture - Preliminary Blood No Growth after 48 hours 08/06/21 16:58 Blood Culture - Preliminary Blood No Growth after 48 hours 08/07/21 04:05 Gram Stain - Preliminary Sputum Sputum Culture - Preliminary Gram Neg Bacilli Assessment and Plan Plan: Assessment: 1. Acute kidney injury secondary to ATN secondary to hemodynamics and acute blood loss anemia. Creatinine fairly stable at 2.55 today. Nonoliguric. 2. Chronic kidney disease stage IIIB with baseline creatinine near 1.6-1.7. 3. Coronary artery disease status post CABG with mitral valve replacement and tricuspid valve repair. 4. Acute blood loss anemia postoperatively status post blood transfusion. On Aranesp. No active bleeding. 5. Mild volume overload status post diuresis. 6. Chronic kidney disease mineral bone disease maintained on PhosLo. 7. Metabolic acidosis secondary to acute kidney injury. On oral bicarbonate. 8. Hypertension with chronic kidney disease. Stable. 9. Sputum culture positive for gram-negative bacilli. Cefepime being started today. Plan: Hold off on diuretics today. Encouraged oral intake. Continue to monitor renal function and urine output. Check phosphorus level.
--- NOTE | 2021-08-09 11:35 | P.PN ---
Subjective Progress Note Date: 08/09/21 This is a very pleasant 81-year-old male patient is being seen in follow-up. The patient is postop day #7. 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 Note that the patient had a preoperative right-sided pleural effusion along with various other medical problems and comorbidities. Postop, the patient becomes hypoxic and short of breath post extubation. He was on high flow oxygen. The right-sided pleural effusion was noted and at that point a pigtail catheter was inserted into the right hemithorax. The catheter was inserted and the patient was having adequate drainage for the past 48 hours and since yesterday, there has been no output. The patient continues to have a left-sided chest tube and output has been around 400 mL over the past 8-12 hours. The patient is using incentive spirometer. The patient is currently on 8 L of oxygen by nasal cannula with a pulse oximetry 96%. The patient is pulling approximately 1000 on his incentive spirometer. His cardiac rhythm is basically rate of 60. The patient is hemodynamically stable and the patient is on no pressors at this point in time. He doesn't component of chronic kidney disease. The BUN is at 76 with a creatinine of 2.36. Potassium level is at 3.7 with a sodium level of 137. Hemoglobin is at 7.8 with a platelet count 234. A repeat chest x-ray was done and it showed cardiomegaly, a loculated right-sided pleural effusion, impacted on the right, and a chest tube on the left and post thoracotomy changes in the mid sternal area. The patient has chronic kidney disease, obstructive sleep apnea, he has undergone previous thoracenteses regarding the right-sided pleural effusion and pleural fluid cytology has been essentially negative for malignancy. He is awake and alert and following commands and answering questions appropriately. On today's evaluation of 08/05/2021, I'm seeing the patient in the follow-up. The patient is postop day #8. Noted the patient continues to have drainage from the chest tube. The chest tube on the left has drained approximately 600 mL total since 24 hours and 200 mL over the past 8 hours. Note that the patient also has a new pigtail catheter inserted by interventional radiology and immediately after insertion, a total of 900 mL of fluid was aspirated and the patient has put out another 600 mL over the past 8 hours. As such, the output remains considerably high. Meanwhile, the chest x-ray from today showing improvement in the volume status and improvement in the right-sided pleural effusion. No localization at this point in time. Pigtail catheter is in a good location. The patient remains on 3 L of O2 nasal cannula. White cell count is 14.5 with hemoglobin 8.2 and a platelet count of 192. Sodium is at 139 with a potassium level of 3.9 and a BUN of 85 with a creatinine of 2.2 and the creatinine is stable for now. Patient continues to use incentive spirometer. The patient has a pacemaker in place and the cardiac rhythmat this point in time. Sternal wound is dry clean and intact. The patient is afebrile. The patient is hemodynamically stable at this point in time. No nausea. No vomiting. Abdomen is slightly distended and the patient may have some partial ileus. Nevertheless, his passing gas and he is also having regular bowel movements. On 08/06/2021, the patient is being seen for a follow-up and the patient is postop day #9. On today's evaluation, the patient is sitting up on a chair. He did ambulate yesterday for a total of 3 times. Using incentive spirometer and pulling approximately 1200 mL on dialysis. The patient continues to have a left-sided chest tube and the total amount of output over the past 24 hours has been in the order of 550 mL an over the past 8 hours has been 210 mL. The patient also has a pigtail catheter on the right and the total amount of output has been 600 mL over the past 24 hours and 150 mL over the past 8 hours. The chest x-ray from today shows residual bilateral pleural effusion right more than left. There is some cardiomegaly. Chest tubes remains in a good location. No evidence of any air leak and the Pleur-evac on the left. Otherwise, the patient is doing well. No significant respiratory distress and the patient remains on 2 L of O2 by nasal cannula and the blood work from today shows a white cell count of 15.3 which is concerning at this number is on the right and hemoglobin of 8.6. Correlation profile is within normal. BUN is 89 with a creatinine of 2.4 and the patient is known to have chronic kidney disease. Creatinine yesterday was 2.2. The rest of the electrodes are all within normal limits. On 08/07/2021, I'm seeing the patient for a follow-up. The patient is still having excessive output from the chest tubes. The left-sided chest tube has drained approximately 530 mL over the past 24 hours in the right-sided chest tube is draining around 1200 mL over the past 24 hours. As such, the chest tubes are going to stay in place. There is a small left apical pneumothorax. Incentive spirometer is being used on the patient's pulling approximately tho usand. Of concern also is the rise in the white cell count which is up to 18. The pro-Level Was 1.28. The Patient Has Chronic Kidney Disease. No Fever. Cultures Were Sent and Was Awaiting for Final Results. Meanwhile, the patient's white cell count is 18 with hemoglobin of 8.6 and a BUN is at 99 with a creatinine of 2.3 and his sodium level is at 135. Moving all 4 extremity is without any limitation. No altered mentation. Sternum stable clean and intact. No chest pain. Abdomen is slightly distended. No diarrhea. He did have a small bowel movement today. Serum bicarb is down to 18 the patient is going to be started on oral bicarbonate replacement. The patient remains on oxygen at 3 L per minute nasal cannula. 08/08/2021, the patient is postop day #11. The patient is sitting up on a chair and the patient is calm and comfortable. The active issue for now remains downgoing drainage from the tubes from both chest. The patient has a right- sided pigtail catheter that has drained approximately 170 mL over the past 8 hours and 550 mL over the past 24 hours. As for the left-sided chest tube, this has drained approximately 130s over the past 8 hours and 260 mL over the past 24 hours. The drainage remains considerably high. Continues using incentive spirometer. No evidence of any pneumothorax on today's chest x-ray. The sternum stable clean and intact. There is some residual pleural effusion on the right which is loculated based on today's chest x-ray. The patient otherwise doing well. The patient has no fever. The pro-calcitonin level needs to be rechecked. The patient's creatinine is stable at 2.5. The patient has a mean of 94. The white cell count is mildly elevated yet improved compared to yesterday and the white cell count is at 17.1. The patient is on oral bicarbonate replacement and a serum bicarbonate 25 on today's evaluation. On today's evaluation of 08/09/2021, the patient is postop day #12. Patient remains on oxygen at 2 L per minute nasal cannula. His cardiac rhythm is occasionally paced with underlying H fibrillation. The patient remains on 4 L of O2 nasal cannula. Overall fluid balance has been -1.2 L of fluid over the past 24 hours. The patient remains hemodynamically stable. The right-sided chest tube has drained approximately 190 mL over the past 8 hours and 524 mL's over the past 24 hours in the left-sided chest tube is draining around 140 mL over the past 8 hours and 230 mL over the past 24 hours. Chest x-ray still shows residual breath and pulmonary infiltrates, and there is ongoing pulmonary edema still with a loculated right-sided pleural effusion which is smaller and the pigtail catheter is in good location. Creatinine is stable at 2.5. The patient is on warfarin. The patient is receiving 2 mg of warfarin today and INR is at 1.2. He continues to have some oropharyngeal candidiasis and thrush and the patient has been given the course solution. The patient otherwise has no other complaints. Is tolerating his diet. He is having some leukocytosis which is undergoing concern and the patient has gram-negative bacillus in the sputum. Based on that, and based on his postop status and valve replacement surgery, we opted to put the patient empiric antibiotics with IV cefepime. His pro-calcit onin level is slightly elevated at 1.15 Objective - Vital Signs Vital signs: Vital Signs Temp 97.6 F 08/09/21 04:00 Pulse 70 08/09/21 11:26 Resp 35 H 08/09/21 11:00 BP 129/63 08/09/21 11:00 Pulse Ox 92 L 08/09/21 11:00 Intake & Output 08/08/21 08/09/21 08/09/21 18:59 06:59 18:59 Intake Total 1380 500 340 Output Total 1285 525 200 Balance 95 -25 140 Weight 73.6 kg Intake: Intake, IV Titration 100 Amount Cefepime 2 gm In Sodium 100 Chloride 0.9% 100 ml @ 25 mls/hr IVPB Q12HR [facility] Rx #:[id number] Oral 1380 500 240 Output: Drainage [address] 200 160 Right Posterior 435 190 Urine 650 175 200 Other: Voiding Method Urinal Urinal # Voids 1 # Bowel Movements 1 1 1 ABP, PAP, CO, CI - Last Documented Arterial Blood Pressure 119/35 Pulmonary Artery Pressure 35/28 Cardiac Output 5 Cardiac Index 2.7 - Exam CONSTITUTIONAL: Sitting up to the bedside chair in the intensive care unit, appears comfortable, cooperative, and is in no apparent acute distress. HEENT: Neck is supple, no JVD, no lymphadenopathy. RESPIRATORY: Lungs sounds essentially clear throughout, diminished to his bilateral bases, right greater than left. Scattered wheezes and rhonchi. Respirations are symmetrical and nonlabored. Currently on 2 L high flow nasal cannula, oxygen saturations 96%. Able to achieve more than 1000 MLS on the incentive spirometer. CARDIOVASCULAR: Regular rhythm and rate. S1 and S2 present, negative for S3, gallop or murmur. Sternum is stable. Palpable peripheral pulses bilaterally. No calf pain or tenderness noted. Heart hugger in place with patient demonstrating appropriate use with encouragement. Knee-high SUMI hose and sequential compression devices in place to his bilateral lower extremities. Bedside telemetry showing paced rhythm at 60 BPM. GASTROINTESTINAL: Abdomen soft, nontender, distended. Active bowel sounds present 4 quadrants. Tolerating diet. No guarding or rigidity. Bowel movement 2 in the last 24 hours. The abdomen is slightly distended and tympanic at this point in time. GENITOURINARY: Continues to void. Urine output is adequate for now. INTEGUMENTARY: Skin is warm and dry with no evidence of clubbing or cyanosis. Midline sternal incision clean dry and well approximated, covered with dry intact dressing. Left lower extremity EVH site well approximated without redness or drainage. NEUROLOGIC: Cranial nerves II through XII intact. No focal deficits. MUSKULOSKELETAL: Able to move all extremities, strength equal bilaterally, generalized weakness. PSYCHIATRIC: Alert and oriented 3, appropriate affect. - Labs CBC & Chem 7: 08/09/21 06:35 08/09/21 06:35 Labs: Abnormal Lab Results - Last 24 Hours (Table) 08/08/21 08/08/21 08/09/21 Range/Units 11:49 16:57 06:31 WBC (3.8-10.6) k/uL RBC (4.30-5.90) m/uL Hgb (13.0-17.5) gm/dL Hct (39.0-53.0) % MCV (80.0-100.0) fL MCHC (31.0-37.0) g/dL RDW (11.5-15.5) % Neutrophils # (1.3-7.7) k/uL Lymphocytes # (1.0-4.8) k/uL PT (9.0-12.0) sec INR (<1.2) Sodium (137-145) mmol/L BUN (9-20) mg/dL Creatinine (0.66-1.25) mg/dL Glucose (74-99) mg/dL POC Glucose (mg/dL) 185 H 204 H 140 H (75-99) mg/dL Calcium (8.4-10.2) mg/dL Phosphorus (2.5-4.5) mg/dL 08/09/21 08/09/21 08/09/21 Range/Units 06:35 06:35 06:35 WBC 17.2 H (3.8-10.6) k/uL RBC 2.71 L (4.30-5.90) m/uL Hgb 8.4 L (13.0-17.5) gm/dL Hct 28.0 L (39.0-53.0) % MCV 103.1 H (80.0-100.0) fL MCHC 30.0 L (31.0-37.0) g/dL RDW 20.5 H (11.5-15.5) % Neutrophils # 15.4 H (1.3-7.7) k/uL Lymphocytes # 0.5 L (1.0-4.8) k/uL PT 13.0 H (9.0-12.0) sec INR 1.2 H (<1.2) Sodium 134 L (137-145) mmol/L BUN 103 H* (9-20) mg/dL Creatinine 2.55 H (0.66-1.25) mg/dL Glucose 131 H (74-99) mg/dL POC Glucose (mg/dL) (75-99) mg/dL Calcium 8.1 L (8.4-10.2) mg/dL Phosphorus (2.5-4.5) mg/dL 08/09/21 Range/Units 06:35 WBC (3.8-10.6) k/uL RBC (4.30-5.90) m/uL Hgb (13.0-17.5) gm/dL Hct (39.0-53.0) % MCV (80.0-100.0) fL MCHC (31.0-37.0) g/dL RDW (11.5-15.5) % Neutrophils # (1.3-7.7) k/uL Lymphocytes # (1.0-4.8) k/uL PT (9.0-12.0) sec INR (<1.2) Sodium (137-145) mmol/L BUN (9-20) mg/dL Creatinine (0.66-1.25) mg/dL Glucose (74-99) mg/dL POC Glucose (mg/dL) (75-99) mg/dL Calcium (8.4-10.2) mg/dL Phosphorus 5.5 H (2.5-4.5) mg/dL Microbiology - Last 24 Hours (Table) 08/06/21 17:04 Blood Culture - Preliminary Blood No Growth after 48 hours 08/06/21 16:58 Blood Culture - Preliminary Blood No Growth after 48 hours 08/07/21 04:05 Gram Stain - Preliminary Sputum Sputum Culture - Preliminary Gram Neg Bacilli Assessment and Plan Plan: 1 postop day # 12 following mitral valve replacement, tricuspid valve repair and single-vessel bypass surgery with SVG to acute marginal. 2 post thoracotomy with secondary atelectatic changes and bilateral pleural effusion with hypoxic respiratory failure, currently on 2 L O2 by nasal cannula 3 chronic right-sided loculated right-sided pleural effusion, post previous thoracentesis with negative fluid cytology. The patient has a pigtail catheter insertion 2 and the output from the predicted From the right is considerably high still. The patient continues to have increased output from the chest tubes. The output is being monitored for now and there is persistent output from the right-sided pigtail catheter. No evidence of any pneumothorax. . 4 post thoracotomy left-sided pleural effusion, chest tube is in place on the left, the output remains high in the patient is a small left apical pneumoth orax. The patient continues to have increased output from the left-sided chest tube 5 acute hypoxic respiratory failure currently on 2 L of oxygen by cannula 6 history of sick sinus syndrome and the patient has a [employer] pacemaker placement in 2017 7 chronic atrial fibrillation maintained on medical condition with warfarin on outpatient basis. The patient has undergone closure of the left atrial appendage 8 chronic systolic heart failure 98 shows septal defect post closure 10 chronic kidney disease stage III 11 restrictive lung disease with a preop FEV1 of 47% of predicted 12 seconds sleep apnea 13 postoperative acute blood loss anemia, expected outcome of surgery. The hemoglobin remains stable. 14 leukocytosis , persistent with mild elevation of the ABDOMINAL level. Afebrile. We'll cover the patient empiric antibiotics. 15 abdominal distention, rule out ileus. This isn't inactive in stable problem Plan Clinically stable clinically. The active issue for now remains the active output from the chest tubes bilaterally. Monitor fever pattern, currently afebrile Start the patient on empiric antibiotic coverage with IV cefepime White cell count is improving Awaiting final cultures and no need for antibiotics Repeat pro-calcitonin is low at 1.15, lower than the earlier level Serum bicarbonate level has improved Keep the chest tube in place Repeat chest x-ray in the morning Continue using incentive spirometer Continue aggressive pulmonary toileting We'll continue to follow. Keep the patient ICU for another 24 hours.
[2021-08-09 11:38] LABS: Glucose,Whole Blood 204 mg/dL (75-99)
--- NOTE | 2021-08-09 13:48 | P.PN ---
Subjective Progress Note Date: 08/09/21 This is a 81-year-old female who had mitral valve replacement, tricuspid valve repair in 1 vessel bypass surgery on 328 along with closure of ASD. Patient had mitral valve. In the past for mitral insufficiency. Patient seemed to be relatively stable. He has bilateral pleural chest tube and also pigtail catheters. Denies any significant chest pain or shortness of breath. He seemed to be in paced rhythm. Doesn't appear to be in acute distress. His creatinine is going up. Patient has history of chronic renal failure. Nephrology is consulted. We'll continue current medical therapy. Increase activity as tolerated. Further recommendations depend upon the clinical course. no acute cardiac arrhythmias. 08/05/2021: This patient had replacement of right pleural tube yesterday by radiologist. Still has a left pleural tube for pneumothorax. Patient is complaining of fatigue and tiredness. Complaints of some chest pain. His creatinine has shown some improvement. He is off diuretics. Patient has a pacemaker rhythm with underlying atrial fibrillation. There is a plan to restart Coumadin soon. Otherwise patient is making slow but steady progress. We'll continue rest of the management along with inspiratory spirometry. 08/06/2021: Patient is still has bilateral chest tubes with about 60-80 mL of drainage. He is complaining of being fatigued and tired. His urine output seemed to be on the low side and creatinine is slightly higher. Seen by an a properly who recommended to keep the patient off diuretics. Patient isn't pacer rhythm. Back on Coumadin. Continue rest of the medication and incentive spirometry. Will follow. 08/07/2021: This patient still has bilateral chest tubes with a significant drainage. Apparently the chest tube still in place. His urine output output is marginal. Creatinine is about 2.3. Is going to receive IV Bumex. Patient remains in pacemaker rhythm. Denies any chest pain. He happened to ambulate with exertional shortness of breath. Patient's white count is elevated. No fever. Sepsis workup is being done. Patient is otherwise clinically stable. We'll continue current medical therapy including Coumadin. Will follow 08/08/2021: This patient seemed to be clinically have on the same. Still have some drainage from the chest tubes and they will be continued. Apparently there'll have Pleurx treatment before discharge. Patient is in pacemaker rhythm. Blood pressure is reasonable. His creatinine is slightly high. Patient is mildly fluid overloaded being followed by nephrology. Patient is ambulating. Continue current medical therapy. Incentive spirometry. Patient is on Coumadin. Further recommendations depend upon the clinical course. 08/09/2021: The patient seemed to be relatively stable. Still has bilateral chest tubes. Patient is in atrial fibrillation with intermittent pacemaker capture. Patient has oral thrush for which he is getting some nystatin. Able to get somewhat, but still having some difficulty. Able to emanate with assistance. The kidney function shows creatinine of 2.5. Diuretics are being held. White count is mildly elevated. Patient was started empirically on antibiotic. Overall, patient is limping without any significant changes. We will continue current medical therapy. We will follow . Patient is on Coumadin and INR is about 1.2 Objective - Vital Signs Vital signs: Vital Signs Temp 98.8 F 08/09/21 12:00 Pulse 66 08/09/21 13:00 Resp 29 H 08/09/21 13:00 BP 123/55 08/09/21 12:00 Pulse Ox 92 L 08/09/21 13:00 Intake & Output 08/08/21 08/09/21 08/09/21 18:59 06:59 18:59 Intake Total 1380 500 940 Output Total 1285 525 380 Balance 95 -25 560 Weight 73.6 kg Intake: Intake, IV Titration 100 Amount Cefepime 2 gm In Sodium 100 Chloride 0.9% 100 ml @ 25 mls/hr IVPB Q12HR [facility] Rx #:[id number] Oral 1380 500 840 Output: Chest Tube Drainage 180 L pleural 80 Right Posterior Chest 100 Drainage [address] 200 160 Right Posterior 435 190 Urine 650 175 200 Other: Voiding Method Urinal Urinal # Voids 1 # Bowel Movements 1 1 1 ABP, PAP, CO, CI - Last Documented Arterial Blood Pressure 119/35 Pulmonary Artery Pressure 35/28 Cardiac Output 5 Cardiac Index 2.7 - Exam GENERAL EXAM: Patient is alert and oriented and doesn't appear to be in any acute distress HEENT: Normocephalic. Normal reaction of pupils, equal size, normal range of extraocular motion. No erythema or exudates in the throat. NECK: No masses, no nuchal rigidity. CHEST: Postsurgical with the chest tubes and catheters LUNGS: Diminished air entry: Bilateral chest tubes present HEART: S1 and S2 normal with no audible mumurs or gallops. Regular rhythm, femorals equal on both sides.. ABDOMEN: No hepatosplenomegaly, normal bowel sounds, no guarding or rigidity. SKIN: No rashes CENTRAL NERVOUS SYSTEM: No focal deficits. EXTREMITIES: No cyanosis, clubbing or edema. - Labs CBC & Chem 7: 08/09/21 06:35 08/09/21 06:35 Labs: Abnormal Lab Results - Last 24 Hours (Table) 08/08/21 08/09/21 08/09/21 Range/Units 16:57 06:31 06:35 WBC 17.2 H (3.8-10.6) k/uL RBC 2.71 L (4.30-5.90) m/uL Hgb 8.4 L (13.0-17.5) gm/dL Hct 28.0 L (39.0-53.0) % MCV 103.1 H (80.0-100.0) fL MCHC 30.0 L (31.0-37.0) g/dL RDW 20.5 H (11.5-15.5) % Neutrophils # 15.4 H (1.3-7.7) k/uL Lymphocytes # 0.5 L (1.0-4.8) k/uL PT (9.0-12.0) sec INR (<1.2) Sodium (137-145) mmol/L BUN (9-20) mg/dL Creatinine (0.66-1.25) mg/dL Glucose (74-99) mg/dL POC Glucose (mg/dL) 204 H 140 H (75-99) mg/dL Calcium (8.4-10.2) mg/dL Phosphorus (2.5-4.5) mg/dL 08/09/21 08/09/21 08/09/21 Range/Units 06:35 06:35 06:35 WBC (3.8-10.6) k/uL RBC (4.30-5.90) m/uL Hgb (13.0-17.5) gm/dL Hct (39.0-53.0) % MCV (80.0-100.0) fL MCHC (31.0-37.0) g/dL RDW (11.5-15.5) % Neutrophils # (1.3-7.7) k/uL Lymphocytes # (1.0-4.8) k/uL PT 13.0 H (9.0-12.0) sec INR 1.2 H (<1.2) Sodium 134 L (137-145) mmol/L BUN 103 H* (9-20) mg/dL Creatinine 2.55 H (0.66-1.25) mg/dL Glucose 131 H (74-99) mg/dL POC Glucose (mg/dL) (75-99) mg/dL Calcium 8.1 L (8.4-10.2) mg/dL Phosphorus 5.5 H (2.5-4.5) mg/dL 08/09/21 Range/Units 11:37 WBC (3.8-10.6) k/uL RBC (4.30-5.90) m/uL Hgb (13.0-17.5) gm/dL Hct (39.0-53.0) % MCV (80.0-100.0) fL MCHC (31.0-37.0) g/dL RDW (11.5-15.5) % Neutrophils # (1.3-7.7) k/uL Lymphocytes # (1.0-4.8) k/uL PT (9.0-12.0) sec INR (<1.2) Sodium (137-145) mmol/L BUN (9-20) mg/dL Creatinine (0.66-1.25) mg/dL Glucose (74-99) mg/dL POC Glucose (mg/dL) 204 H (75-99) mg/dL Calcium (8.4-10.2) mg/dL Phosphorus (2.5-4.5) mg/dL Microbiology - Last 24 Hours (Table) 08/07/21 04:05 Gram Stain - Final Sputum Sputum Culture - Final Klebsiella pneumoniae 08/06/21 17:04 Blood Culture - Preliminary Blood No Growth after 48 hours 08/06/21 16:58 Blood Culture - Preliminary Blood No Growth after 48 hours Assessment and Plan (1) Status post mitral valve replacement Current Visit: Yes Status: Acute Code(s): Z95.2 - PRESENCE OF PROSTHETIC HEART VALVE SNOMED Code(s): 0882854041922 (2) Status post single vessel coronary artery bypass Current Visit: Yes Status: Acute Code(s): Z95.1 - PRESENCE OF AORTOCORONARY BYPASS GRAFT SNOMED Code(s): 299902494 (3) Pleural effusion Current Visit: No Status: Acute Code(s): J90 - PLEURAL EFFUSION, NOT ELSEWHERE CLASSIFIED SNOMED Code(s): 50061051 (4) Acute on chronic renal failure Current Visit: Yes Status: Acute Code(s): N17.9 - ACUTE KIDNEY FAILURE, UN SPECIFIED; N18.9 - CHRONIC KIDNEY DISEASE, UNSPECIFIED SNOMED Code(s): 23 2327916 (5) Chronic a-fib Current Visit: No Status: Acute Code(s): I48.2 - CHRONIC ATRIAL FIBRILLATION * DO NOT USE * SNOMED Code(s): 696773930 (6) Presence of permanent cardiac pacemaker Current Visit: Yes Status: Acute Code(s): Z95.0 - PRESENCE OF CARDIAC PACEMAKER SNOMED Code(s): 959036708 Plan: Continue current medical therapy. Possible chest tube removal tomorrow. Increase activity as tolerated. Continue the Coumadin to obtain therapeutic INRs
--- NOTE | 2021-08-09 14:53 | P.PN ---
Subjective Progress Note Date: 08/09/21 This is a 81-year-old male patient who is currently postop day 2 from mitral valve replacement, tricuspid valve repair and single-vessel bypass grafting SVG to obtuse marginal. Patient has a past medical history of valvular heart disease with symptoms including shortness of breath with exertion and unable to perform many of his activities of daily living. Additional medical history includes coronary artery disease with previous cardiac infarction and PCI, hypertension, chronic atrial fibrillation on Coumadin for and configuration status post cardioversion, sick sinus syndrome with [facility] permanent pacemaker placement 2016, chronic systolic heart failure, atrial septal defect status post closure with previous mitral clip in 2019 at [facility], chronic renal insufficiency, obstructive sleep apnea, reoccurring right-sided pleural effusions with previous thoracentesis 4. At this time patient is currently resting comfortably in the intensive care unit. Patient was successfully extubated per protocol currently on IV dopamine and Levophed. INR elevated at 6.5. hemoglobin 6.6. 1 unit PRBCs, 2 units of FFP have been ordered per surgical services INR recheck ordered for noon. Chest x-ray the same showing cardiomegaly with moderate to large right and small sized bilateral pleural effusion collection and/or effusions with mild to moderate central vascular congestion and bibasilar opacities favoring atelectasis along with left-sided chest tubes are redemonstrated. Per surgical services possible plans for Pleurx catheter placement. This time patient is resting comfortably in chair patient remains on high flow oxygen. Blood sugars have remained stable per nursing staff will transition off insulin drip to sliding scale coverage. Cardiology and critical care services are following. On 07/31/2021 patient having intermittent episodes of confusion. INR improving to 2.3. Hemoglobin 7.6. Chest tubes remain in place. Cardiology and critical care services are following. Patient remains on high flow nasal cannula. Current vitals heart rate 80, respiratory rate 16, blood pressure 104/51 On 08/01/2021 patient is more alert currently resting comfortably in chair. Sitter is at bedside. Patient remains on high flow nasal cannula. Patient remains on IV Bumex. Cordis, chest tube and right pigtail catheter all remain in place. On 08/02/2021 patient was seen and examined in the ICU he is alert and oriented 3 in no apparent distress, sitting up in a chair, he is maintained on high flow oxygen, with FiO2 of 45, pulse ox is 93% temperature 97.2 pulse 80 respiration 22 blood pressure 129/46, he denies any fever or chills no headache or dizziness no chest pain no shortness of breath no cough no nausea no vomiting no abdominal pain no diarrhea and no urinary symptoms, chest tube is still in place, he is maintained on Bumex 2 mg IV every 8 hours On 08/03/2021 patient remains in the intensive care unit. Patient is alert and oriented sitting comfortably in chair. Discussed case with surgical team Bumex has been DC'd. Creatinine 2.25 bun 70. Chest tube remains in place. Patient remains on high flow 60%. This time patient denies chest pain or shortness socorro th. Patient denies diarrhea. Patient denies any urinary burning or frequency On 08/04/2021 patient was seen and examined, in the ICU, he is alert and oriented 3 in no apparent distress, there is no fever or chills no headache or dizziness no chest pain no shortness of breath no cough no nausea or vomiting no abdominal pain no diarrhea and no urinary symptoms he still has a left sided chest to and he is complaining of discomfort at the site of the 2 he is maintained on oxygen at 8 L nasal cannula his pulse ox is 96% blood pressure 126/62 pulse 63 respiration 24 temperature 97.9 On 08/05/2021 patient was seen and examined in the ICU he is alert and oriented 3 in no apparent distress he is sitting up in a chair he is complaining of discomfort in the left chest at the site of the chest to he is also complaining of pain when coughing otherwise he denies any complaints at this time his vital exam reveals a temperature of 98 pulse 65 respiration 30 blood pressure 136/66 pulse ox 98% on oxygen 3 L nasal cannula, white blood count is 14.4 hemoglobin 8.0 platelet count 192 INR 1.2 BUN 85 creatinine 2.2 On 08/06/2021 patient remains in the intensive care unit. Patient is alert and oriented 3. White blood cell increasing to 15.3 per. Per critical care services will check UA and monitor fever pattern no need for antibiotic treatment at this time. Creatinine 2.53 and bun 89. Nephrology services are following. Current vitals temp 97.6, heart rate 64, pulse ox 94% on 3 L, blood pressure 166/57 08/07/2021 patient remains in the intensive care unit confusion has improved. Nephrology services are following. Patient remains with significant output from chest tubes. Current vitals temp 97.9, respiratory rate 22, blood pressure 124/60 to 98% on 5 L On 08/08/2021 patient is alert and oriented 3 currently sitting up in the care unit. Per nursing staff patient has been up ambulating with assistance. Still having significant output from chest tubes. Patient also getting treated for oral thrush. Discharge planning is in progress patient will likely need inpatient rehab upon discharge On 08/09/2021 patient was seen and examined in the ICU, he is sitting up in a chair, he is complaining of discomfort in his mouth due to thrush, he also has occasional cough otherwise he denies any complaints there is no fever or chills no headache or dizziness, no chest pain or shortness of breath no nausea or vomiting no abdominal pain no diarrhea no blood in the stools no burning with urination no frequency or urgency and no hematuria Objective - Vital Signs Vital signs: Vital Signs Temp 97.6 F 08/09/21 04:00 Pulse 70 08/09/21 11:26 Resp 35 H 08/09/21 11:00 BP 129/63 08/09/21 11:00 Pulse Ox 92 L 08/09/21 11:00 Intake & Output 08/08/21 08/09/21 08/09/21 18:59 06:59 18:59 Intake Total 1380 500 340 Output Total 1285 525 200 Balance 95 -25 140 Weight 73.6 kg Intake: Intake, IV Titration 100 Amount Cefepime 2 gm In Sodium 100 Chloride 0.9% 100 ml @ 25 mls/hr IVPB Q12HR [facility] Rx #:[id number] Oral 1380 500 240 Output: Drainage [address] 200 160 Right Posterior 435 190 Urine 650 175 200 Other: Voiding Method Urinal Urinal # Voids 1 # Bowel Movements 1 1 1 ABP, PAP, CO, CI - Last Documented Arterial Blood Pressure 119/35 Pulmonary Artery Pressure 35/28 Cardiac Output 5 Cardiac Index 2.7 - Exam In general patient is alert and oriented x 3 in no distress HEENT head normocephalic and atraumatic Neck is supple no JVD no goiter no lymphadenopathy no carotid bruit Chest examination reveals a scattered crackles in both lung sousa no wheezing Cardiac exam reveals regular heart sounds S1 and S2 no gallops no murmurs Abdomen is soft nontender no organomegaly with normal bowel sounds Extremity exam reveals no edema no cyanosis or clubbing Neurological examination reveals no gross focal deficits - Labs CBC & Chem 7: 08/09/21 06:35 08/09/21 06:35 Labs: Abnormal Lab Results - Last 24 Hours (Table) 08/08/21 08/09/21 08/09/21 Range/Units 16:57 06:31 06:35 WBC 17.2 H (3.8-10.6) k/uL RBC 2.71 L (4.30-5.90) m/uL Hgb 8.4 L (13.0-17.5) gm/dL Hct 28.0 L (39.0-53.0) % MCV 103.1 H (80.0-100.0) fL MCHC 30.0 L (31.0-37.0) g/dL RDW 20.5 H (11.5-15.5) % Neutrophils # 15.4 H (1.3-7.7) k/uL Lymphocytes # 0.5 L (1.0-4.8) k/uL PT (9.0-12.0) sec INR (<1.2) Sodium (137-145) mmol/L BUN (9-20) mg/dL Creatinine (0.66-1.25) mg/dL Glucose (74-99) mg/dL POC Glucose (mg/dL) 204 H 140 H (75-99) mg/dL Calcium (8.4-10.2) mg/dL Phosphorus (2.5-4.5) mg/dL 08/09/21 08/09/21 08/09/21 Range/Units 06:35 06:35 06:35 WBC (3.8-10.6) k/uL RBC (4.30-5.90) m/uL Hgb (13.0-17.5) gm/dL Hct (39.0-53.0) % MCV (80.0-100.0) fL MCHC (31.0-37.0) g/dL RDW (11.5-15.5) % Neutrophils # (1.3-7.7) k/uL Lymphocytes # (1.0-4.8) k/uL PT 13.0 H (9.0-12.0) sec INR 1.2 H (<1.2) Sodium 134 L (137-145) mmol/L BUN 103 H* (9-20) mg/dL Creatinine 2.55 H (0.66-1.25) mg/dL Glucose 131 H (74-99) mg/dL POC Glucose (mg/dL) (75-99) mg/dL Calcium 8.1 L (8.4-10.2) mg/dL Phosphorus 5.5 H (2.5-4.5) mg/dL 08/09/21 Range/Units 11:37 WBC (3.8-10.6) k/uL RBC (4.30-5.90) m/uL Hgb (13.0-17.5) gm/dL Hct (39.0-53.0) % MCV (80.0-100.0) fL MCHC (31.0-37.0) g/dL RDW (11.5-15.5) % Neutrophils # (1.3-7.7) k/uL Lymphocytes # (1.0-4.8) k/uL PT (9.0-12.0) sec INR (<1.2) Sodium (137-145) mmol/L BUN (9-20) mg/dL Creatinine (0.66-1.25) mg/dL Glucose (74-99) mg/dL POC Glucose (mg/dL) 204 H (75-99) mg/dL Calcium (8.4-10.2) mg/dL Phosphorus (2.5-4.5) mg/dL Microbiology - Last 24 Hours (Table) 08/07/21 04:05 Gram Stain - Final Sputum Sputum Culture - Final Klebsiella pneumoniae 08/06/21 17:04 Blood Culture - Preliminary Blood No Growth after 48 hours 08/06/21 16:58 Blood Culture - Preliminary Blood No Growth after 48 hours Assessment and Plan Assessment: 1. Status post mitral valve replacement, tricuspid valve repair and single- vessel bypass grafting. 2. Right-sided pleural effusion 3. Coagulopathy. Resolved 4. History of congestive heart failure 5. History of valvular heart disease with previous mitral valve repair with a mitral clip at [facility] 6. History of coronary artery disease 7. History of hyperlipidemia 8. History of renal insufficiency 9. Previous history of atrial fibrillation 10. Leukocytosis White blood cell up to 15.3. Critical care services ordering UA. No need for antibiotics at this time per critical care will continue to monitor. Sputum culture currently pending Thank you for this consultation we will continue to follow patient closely throughout stay Patient remains in the intensive care unit Repeat labs ordered Patient to be transitioned off IV insulin to sliding scale coverage. A1c 5.8
[2021-08-09 16:44] LABS: Glucose,Whole Blood 174 mg/dL (75-99)
[2021-08-09] MEDS ORDERED: WARFARIN 2 MG TAB PO ONE (18:00)
[2021-08-09 20:46] LABS: Glucose,Whole Blood 204 mg/dL (75-99)
[2021-08-09] MEDS: MELATONIN 3 MG TABLET PO SCH (20:59)
[2021-08-09] MEDS: ATORVASTATIN 40 MG TAB PO SCH (20:59)
[2021-08-09] MEDS: CALCIUM ACETATE 667 MG TAB PO SCH (20:59)
[2021-08-09] MEDS: CEFEPIME 1 GM in SODIUM CHLORIDE 0.9% 50 ML IVPB SCH (20:59)
[2021-08-10] MEDS: ACETAMINOPHEN TAB 325 MG TAB PO PRN (01:20)
--- NOTE | 2021-08-10 06:15 | XR ---
EXAMINATION TYPE: XR chest 1V portable DATE OF EXAM: 08/10/2021 CLINICAL HISTORY: Difficulty breathing progress study. Postoperative cardiac surgery. TECHNIQUE: Single AP portable upright view of the chest is obtained. COMPARISON: Chest x-ray from one day earlier and older studies. FINDINGS: Stable left-sided chest tube. Overlying sternal wires along with cardiac valvular clips an d tricuspid valve surgical changes are all redemonstrated. Persistent cardiomegaly with single lead p acemaker. Persistent small right greater than left pleural effusions and associated lower lung edema and/or infiltrates. Osseous structures are intact. IMPRESSION: Cardiomegaly with small right greater left pleural effusions and right greater than left lower lung infiltrates and/or edema all redemonstrated. No significant change from one day earlier.
[2021-08-10 06:33] LABS: Anisocytosis Moderate; HCT 27.2 % (39.0-53.0); HGB 8.2 gm/dL (13.0-17.5); Hypochromasia Marked; MCH 31.2 pg (25.0-35.0); MCHC 29.9 g/dL (31.0-37.0); MCV 104.4 fL (80.0-100.0); Macrocytosis Marked; Mean Platelet Volume 8.8; Platelet Count 259 k/uL (150-450); Poikilocytosis Moderate; RBC 2.61 m/uL (4.30-5.90); RDW 21.3 % (11.5-15.5); WBC 16.1 k/uL (3.8-10.6)
[2021-08-10 06:41] LABS: INR 1.2 (<1.2); Prothrombin Time 12.8 sec (9.0-12.0)
[2021-08-10 06:41] LABS: Glucose,Whole Blood 139 mg/dL (75-99)
[2021-08-10] MEDS: PANTOPRAZOLE 40 MG TABLET PO SCH (06:43)
[2021-08-10] MEDS: INSULIN ASPART (NovoLOG) 100 UNIT/ML VIAL SQ SCH ×4 (06:43→20:33)
[2021-08-10 06:48] LABS: Calcium 7.9 mg/dL (8.4-10.2); Potassium 5.1 mmol/L (3.5-5.1)
[2021-08-10] MEDS: IPRATROPIUM-ALBUTEROL 3 ML NEB INHALATION SCH ×4 (07:30→20:03)
[2021-08-10] MEDS: FERROUS SULFATE 325 MG TAB PO SCH (08:03)
[2021-08-10] MEDS: ASCORBIC ACID 500 MG TAB PO SCH (08:03)
[2021-08-10] MEDS: FOLIC ACID 1 MG TAB PO SCH (08:03)
[2021-08-10] MEDS: HEPARIN SODIUM,PORCINE/PF 5,000 UNIT/0.5 ML SYRINGE SQ SCH ×3 (08:03→23:59)
[2021-08-10] MEDS: guaiFENesin 600 MG TABLET.ER PO SCH ×2 (08:03→20:32)
[2021-08-10] MEDS: ASPIRIN 81 MG PO SCH (08:04)
[2021-08-10] MEDS: CEFEPIME 1 GM in SODIUM CHLORIDE 0.9% 50 ML IVPB SCH ×2 (08:04→20:32)
[2021-08-10] MEDS: amLODIPine 5 MG TAB PO SCH (08:04)
[2021-08-10] MEDS: SODIUM BICARBONATE TAB 650 MG TAB PO SCH (08:04)
[2021-08-10] MEDS: allopurinoL 100 MG TAB PO SCH (08:04)
[2021-08-10] MEDS: SIMETHICONE PO SCH ×6 (08:08→20:33)
[2021-08-10] MEDS: ALUMINUM HYDROXIDE PO SCH ×6 (08:08→20:33)
[2021-08-10] MEDS: MAGNESIUM HYDROXIDE PO SCH ×6 (08:08→20:33)
[2021-08-10] MEDS: NYSTATIN PO SCH ×6 (08:08→20:33)
--- NOTE | 2021-08-10 08:11 | P.PN ---
Subjective Progress Note Date: 08/10/21 Principal diagnosis: Mitral valve regurgitation, tricuspid valve regurgitation, coronary artery disease. Previous medical history of CAD with previous cardial infarction and PCI, hypertension, chronic atrial fibrillation on Coumadin for anticoagulation status post cardioversion, sick sinus syndrome [facility] permanent pacemaker placement in 2017, chronic systolic heart failure, atrial septal defect status post closure, previous MitraClip in 2019, chronic renal insufficiency, previous tobacco dependence, severe restrictive lung disease, obstructive sleep apnea, recurrent right-sided pleural effusio with previous thoracentesis x 4, remote history of pneumonia, family history of premature coronary artery disease POD #13 mitral valve replacement with 31 mm Mosaic porcine valve prosthesis, tricuspid valve repair with 30 mm MC3 band, coronary artery bypass grafting 1 with reverse saphenous vein graft to the obtuse marginal artery, endovascular vein harvest of the left greater saphenous vein, epi-aortic ultrasound, closure of the left atrial appendage, closure of ASD Postoperative acute blood loss anemia and thrombocytopenia, expected given hemodilution and cardiopulmonary bypass pump Coagulopathy, unexpected, last coumadin dose 07/22/21 Right-sided pleural effusion, expected given history of previous right-sided effusion with thoracentesis 4, status post right-sided pigtail catheter placement by interventional radiology Leukocytosis, unknown source, afebrile, procalcitonin 1.28 Altered mental status after surgery due to delirium from lack of sleep, resolved The patient was seen and examined this morning sitting up in a recliner in the intensive care unit in no acute distress. He denies any pain other than mouth pain, denies shortness of breath. Currently on 3 L nasal cannula, achieving 1000 mL on his incentive spirometry. Remains in controlled atrial fibrillation. Labs and x-rays reviewed this morning. Left pleural chest tube and right pig tail catheter remain with large serous output. Patient did consume more food in the last 24 hours. Labs and x-ray reviewed. No diuresis yesterday per nephrology. Urine/sputum/blood cultures sent, urine culture finalized as negative, blood cultures continue to demonstrate no growth, sputum culture reported klebsiella pneumoniae, patient started on cefepime yesterday, WBC slightly down from yesterday. Patient remains afebrile. Has ambulated in the hallway. Objective - Vital Signs Vital signs: Vital Signs Temp 97.7 F 08/10/21 04:00 Pulse 66 08/10/21 07:39 Resp 19 08/10/21 07:00 BP 108/77 08/10/21 07:00 Pulse Ox 98 08/10/21 07:00 Intake & Output 08/09/21 08/10/21 08/10/21 18:59 06:59 18:59 Intake Total 1300 100 Output Total 780 635 0 Balance 520 -535 0 Weight 73.7 kg Intake: IV 100 Cefepime 1 gm In Sodium 100 Chloride 0.9% 50 ml @ 12. 5 mls/hr IVPB Q12HR [facility] Rx#:[id number] Intake, IV Titration 100 Amount Cefepime 2 gm In Sodium 100 Chloride 0.9% 100 ml @ 25 mls/hr IVPB Q12HR [facility] Rx #:[id number] Oral 1200 Output: Chest Tube Drainage 380 210 L pleural 160 80 Right Posterior Chest 220 130 Urine 400 425 0 Other: Voiding Method Toilet Toilet Toilet Urinal Urinal Urinal # Voids 1 # Bowel Movements 1 ABP, PAP, CO, CI - Last Documented Arterial Blood Pressure 119/35 Pulmonary Artery Pressure 35/28 Cardiac Output 5 Cardiac Index 2.7 - Exam CONSTITUTIONAL: Appears comfortable, cooperative, no acute distress RESPIRATORY: Lungs sounds diminished bilaterally. Respirations even, nonlabored. Currently on 3 L nasal cannula with oxygen saturation 95%. Able to achieve 1000 mL on incentive spirometry. Strong non-productive cough. CARDIOVASCULAR: S1, S2 present. Irregular rate and rhythm, controlled atrial fibrillation on telemetry. Sternum stable. Palpable peripheral pulses bilaterally. Trace bilateral lower extremity edema present. No calf pain or tenderness noted. Heart hugger in place with patient demonstrating appropriate use. Antiembolism stockings, SCDs present. GASTROINTESTINAL: Abdomen soft, nontender, slightly distended. Active bowel sounds present 4 quadrants. Tolerating more of his diet despite continued mouth pain. Positive bowel movement 08/09/21 x 2 GENITOURINARY: Continues to void, 825 mL in the last 24 hours INTEGUMENTARY: Skin is warm and dry with evidence of good perfusion. Anterior chest incision well approximated. Left lower extremity EVH site well approximated without redness or drainage. NEUROLOGIC: Cranial nerves II through XII intact MUSKULOSKELETAL: Able to move all extremities, strength equal bilaterally but generalized weakness present PSYCHIATRIC: Oriented to person place and time INVASIVE LINES AND TUBES: Right pigtail/left pleural chest tube present and connected to wall suction, no air leaks present. Left pleural chest tube with 80 mL serous drainage overnight, 250 mL in the last 24 hours. Right-sided pigtail catheter with 130 mL serous drainage overnight, 450 mL the last 24 hours. - Allied health notes Allied health notes reviewed: nursing - Labs CBC & Chem 7: 08/10/21 05:45 08/10/21 05:45 Labs: Abnormal Lab Results - Last 24 Hours (Table) 08/09/21 08/09/21 08/09/21 Range/Units 06:35 11:37 16:43 WBC (3.8-10.6) k/uL RBC (4.30-5.90) m/uL Hgb (13.0-17.5) gm/dL Hct (39.0-53.0) % MCV (80.0-100.0) fL MCHC (31.0-37.0) g/dL RDW (11.5-15.5) % Macrocytosis PT (9.0-12.0) sec INR (<1.2) Sodium (137-145) mmol/L BUN (9-20) mg/dL Creatinine (0.66-1.25) mg/dL Glucose (74-99) mg/dL POC Glucose (mg/dL) 204 H 174 H (75-99) mg/dL Calcium (8.4-10.2) mg/dL Phosphorus 5.5 H (2.5-4.5) mg/dL 08/09/21 08/10/21 08/10/21 Range/Units 20:44 05:45 05:45 WBC 16.1 H (3.8-10.6) k/uL RBC 2.61 L (4.30-5.90) m/uL Hgb 8.2 L (13.0-17.5) gm/dL Hct 27.2 L (39.0-53.0) % MCV 104.4 H (80.0-100.0) fL MCHC 29.9 L (31.0-37.0) g/dL RDW 21.3 H (11.5-15.5) % Macrocytosis Marked A PT 12.8 H (9.0-12.0) sec INR 1.2 H (<1.2) Sodium (137-145) mmol/L BUN (9-20) mg/dL Creatinine (0.66-1.25) mg/dL Glucose (74-99) mg/dL POC Glucose (mg/dL) 204 H (75-99) mg/dL Calcium (8.4-10.2) mg/dL Phosphorus (2.5-4.5) mg/dL 08/10/21 08/10/21 Range/Units 05:45 06:40 WBC (3.8-10.6) k/uL RBC (4.30-5.90) m/uL Hgb (13.0-17.5) gm/dL Hct (39.0-53.0) % MCV (80.0-100.0) fL MCHC (31.0-37.0) g/dL RDW (11.5-15.5) % Macrocytosis PT (9.0-12.0) sec INR (<1.2) Sodium 132 L (137-145) mmol/L BUN 110 H* (9-20) mg/dL Creatinine 2.72 H (0.66-1.25) mg/dL Glucose 111 H (74-99) mg/dL POC Glucose (mg/dL) 139 H (75-99) mg/dL Calcium 7.9 L (8.4-10.2) mg/dL Phosphorus (2.5-4.5) mg/dL Microbiology - Last 24 Hours (Table) 08/06/21 17:04 Blood Culture - Preliminary Blood No Growth after 72 hours 08/06/21 16:58 Blood Culture - Preliminary Blood No Growth after 72 hours 08/07/21 04:05 Gram Stain - Final Sputum Sputum Culture - Final Klebsiella pneumoniae - Imaging and Cardiology Chest x-ray: report reviewed, image reviewed Assessment and Plan Assessment: 1. Mitral valve regurgitation, previous MitraClip in 2019, status post post mitral valve replacement 2. Tricuspid valve regurgitation, status post tricuspid valve repair 3. Coronary artery disease with previous myocardial infarction and PCI, status post 1 vessel CABG 4. History of hypertension 5. Chronic atrial fibrillation on Coumadin for anticoagulation status post cardioversion, status post closure of the left atrial appendage 6. Sick sinus syndrome status post [facility] permanent pacemaker placement in 2017 7. Chronic systolic heart failure 8. Atrial septal defect status post closure 9. Acute on chronic renal insufficiency stage IIIB, baseline creatinine 1.6-1.7 10. Previous tobacco dependence 11. Severe restrictive lung disease, preoperative FEV1 47% of predicted 12. Recurrent right-sided pleural effusion, patient had right sided tho racentesis twice in 2019 and twice in 2020, status post right-sided pigtail catheter placement by IR 13. Obstructive sleep apnea 14. Remote history of pneumonia 15. Family history of premature coronary artery disease 16. Postoperative acute blood loss anemia and thrombocytopenia, expected 17. Coagulopathy, unexpected 18. Leukocytosis, elevated pro-calcitonin, afebrile, unknown source 19. Altered mental status after surgery due to delirium from lack of sleep, resolved Plan: 1. Continue low-dose aspirin, statin, norvasc 2. Continue Coumadin, will monitor daily PT/INR 3. Wean O2 as tolerated. Encourage incentive spirometry use 10 times every hour while awake. Bronchodilators per pulmonology. 4. Increase activity as tolerated. PT/OT/cardiac rehab following 5. Will monitor daily labs and x-rays. Sputum culture reporting klebsiella pneumoniae, abt per pulmonology. Diuresis per nephrology 6. GI/DVT prophylaxis 7. Insulin management per primary care service. Patient is not diabetic, preoperative hemoglobin A1c 5.8% 8. Pain control per current medication regimen. Avoid narcotics 9. Continue left pleural chest tube and right pigtail catheter. May need right sided pleurx before discharge 10. Strict accurate intake and output. Daily weights 11. Encourage oral intake, encourage supplements to improve nutrition. Continue Kools solution oral rinse 12. Discharge planning in progress. Anticipate discharge to [facility] once able to remove chest tubes 13. More recommendations to follow based on patient's progress
[2021-08-10] MEDS ORDERED: BUMETANIDE 0.25 MG/ML 4 ML VIAL IVP STA (08:39)
--- NOTE | 2021-08-10 08:58 | P.PN ---
Subjective Patient is seen in follow-up for acute kidney injury on chronic kidney disease. Renal function a little worse today. Good urine output. Denies chest pain. On 3 L nasal cannula. Oral intake fair. Hemodynamically stable. Vital signs are stable. General: Awake and alert. No acute distress. HEENT: Head exam is unremarkable. LUNGS: Chest tubes noted. Breath sounds decreased. HEART: Rate and Rhythm are regular. ABDOMEN: Soft, no distention. EXTREMITITES: Trace edema. Objective - Vital Signs Vital signs: Vital Signs Temp 97.7 F 08/10/21 04:00 Pulse 66 08/10/21 07:39 Resp 19 08/10/21 07:00 BP 108/77 08/10/21 07:00 Pulse Ox 98 08/10/21 07:00 Intake & Output 08/09/21 08/10/21 08/10/21 18:59 06:59 18:59 Intake Total 1300 100 Output Total 780 635 0 Balance 520 -535 0 Weight 73.7 kg Intake: IV 100 Cefepime 1 gm In Sodium 100 Chloride 0.9% 50 ml @ 12. 5 mls/hr IVPB Q12HR [facility] Rx#:[id number] Intake, IV Titration 100 Amount Cefepime 2 gm In Sodium 100 Chloride 0.9% 100 ml @ 25 mls/hr IVPB Q12HR [facility] Rx #:[id number] Oral 1200 Output: Chest Tube Drainage 380 210 L pleural 160 80 Right Posterior Chest 220 130 Urine 400 425 0 Other: Voiding Method Toilet Toilet Toilet Urinal Urinal Urinal # Voids 1 # Bowel Movements 1 ABP, PAP, CO, CI - Last Documented Arterial Blood Pressure 119/35 Pulmonary Artery Pressure 35/28 Cardiac Output 5 Cardiac Index 2.7 - Labs CBC & Chem 7: 08/10/21 05:45 08/10/21 05:45 Labs: Abnormal Lab Results - Last 24 Hours (Table) 08/09/21 08/09/21 08/09/21 Range/Units 06:35 11:37 16:43 WBC (3.8-10.6) k/uL RBC (4.30-5.90) m/uL Hgb (13.0-17.5) gm/dL Hct (39.0-53.0) % MCV (80.0-100.0) fL MCHC (31.0-37.0) g/dL RDW (11.5-15.5) % Macrocytosis PT (9.0-12.0) sec INR (<1.2) Sodium (137-145) mmol/L BUN (9-20) mg/dL Creatinine (0.66-1.25) mg/dL Glucose (74-99) mg/dL POC Glucose (mg/dL) 204 H 174 H (75-99) mg/dL Calcium (8.4-10.2) mg/dL Phosphorus 5.5 H (2.5-4.5) mg/dL 08/09/21 08/10/21 08/10/21 Range/Units 20:44 05:45 05:45 WBC 16.1 H (3.8-10.6) k/uL RBC 2.61 L (4.30-5.90) m/uL Hgb 8.2 L (13.0-17.5) gm/dL Hct 27.2 L (39.0-53.0) % MCV 104.4 H (80.0-100.0) fL MCHC 29.9 L (31.0-37.0) g/dL RDW 21.3 H (11.5-15.5) % Macrocytosis Marked A PT 12.8 H (9.0-12.0) sec INR 1.2 H (<1.2) Sodium (137-145) mmol/L BUN (9-20) mg/dL Creatinine (0.66-1.25) mg/dL Glucose (74-99) mg/dL POC Glucose (mg/dL) 204 H (75-99) mg/dL Calcium (8.4-10.2) mg/dL Phosphorus (2.5-4.5) mg/dL 08/10/21 08/10/21 Range/Units 05:45 06:40 WBC (3.8-10.6) k/uL RBC (4.30-5.90) m/uL Hgb (13.0-17.5) gm/dL Hct (39.0-53.0) % MCV (80.0-100.0) fL MCHC (31.0-37.0) g/dL RDW (11.5-15.5) % Macrocytosis PT (9.0-12.0) sec INR (<1.2) Sodium 132 L (137-145) mmol/L BUN 110 H* (9-20) mg/dL Creatinine 2.72 H (0.66-1.25) mg/dL Glucose 111 H (74-99) mg/dL POC Glucose (mg/dL) 139 H (75-99) mg/dL Calcium 7.9 L (8.4-10.2) mg/dL Phosphorus (2.5-4.5) mg/dL Microbiology - Last 24 Hours (Table) 08/06/21 17:04 Blood Culture - Preliminary Blood No Growth after 72 hours 08/06/21 16:58 Blood Culture - Preliminary Blood No Growth after 72 hours 08/07/21 04:05 Gram Stain - Final Sputum Sputum Culture - Final Klebsiella pneumoniae Assessment and Plan Plan: Assessment: 1. Acute kidney injury secondary to ATN secondary to hemodynamics and acute bl ood loss anemia. Creatinine on little worse at 2.72 today. Nonoliguric. Elevated BUN secondary to acute kidney injury. No active bleeding. Not on steroids. 2. Chronic kidney disease stage IIIB with baseline creatinine near 1.6-1.7. 3. Coronary artery disease status post CABG with mitral valve replacement and tricuspid valve repair. 4. Acute blood loss anemia postoperatively status post blood transfusion. On Aranesp. No active bleeding. 5. Mild volume overload status post diuresis. 6. Chronic kidney disease mineral bone disease maintained on PhosLo. Phosphorus 5.5 dated 08/09/2021. 7. Metabolic acidosis secondary to acute kidney injury. On oral bicarbonate. 8. Hypertension with chronic kidney disease. Stable. 9. Sputum culture positive for Klebsiella. On antibiotics. Plan: Bumex 1 mg IV today. Encouraged oral intake. Continue to monitor renal function and urine output.
[2021-08-10 10:08] LABS: Lymphocytes # (M) 0.32 k/uL (1.0-4.8); Mixed Population RBC Present; Monocytes # (M) 0.97 k/uL (0-1.0); Neutrophils # (M) 14.81 k/uL (1.3-7.7); Neutrophils % (M) 92 %; Nucleated Red Blood Cells 0 /100 WBC (0-0); Polychromasia Present; Total Cells Counted 100
--- NOTE | 2021-08-10 10:45 | P.PN ---
Subjective Progress Note Date: 08/10/21 This is a 81-year-old male patient who is currently postop day 2 from mitral valve replacement, tricuspid valve repair and single-vessel bypass grafting SVG to obtuse marginal. Patient has a past medical history of valvular heart disease with symptoms including shortness of breath with exertion and unable to perform many of his activities of daily living. Additional medical history includes coronary artery disease with previous cardiac infarction and PCI, hypertension, chronic atrial fibrillation on Coumadin for and configuration status post cardioversion, sick sinus syndrome with [facility] permanent pacemaker placement 2016, chronic systolic heart failure, atrial septal defect status post closure with previous mitral clip in 2019 at [facility], chronic renal insufficiency, obstructive sleep apnea, reoccurring right-sided pleural effusions with previous thoracentesis 4. At this time patient is currently resting comfortably in the intensive care unit. Patient was successfully extubated per protocol currently on IV dopamine and Levophed. INR elevated at 6.5. hemoglobin 6.6. 1 unit PRBCs, 2 units of FFP have been ordered per surgical services INR recheck ordered for noon. Chest x-ray the same showing cardiomegaly with moderate to large right and small sized bilateral pleural effusion collection and/or effusions with mild to moderate central vascular congestion and bibasilar opacities favoring atelectasis along with left-sided chest tubes are redemonstrated. Per surgical services possible plans for Pleurx catheter placement. This time patient is resting comfortably in chair patient remains on high flow oxygen. Blood sugars have remained stable per nursing staff will transition off insulin drip to sliding scale coverage. Cardiology and critical care services are following. On 07/31/2021 patient having intermittent episodes of confusion. INR improving to 2.3. Hemoglobin 7.6. Chest tubes remain in place. Cardiology and critical care services are following. Patient remains on high flow nasal cannula. Current vitals heart rate 80, respiratory rate 16, blood pressure 104/51 On 08/01/2021 patient is more alert currently resting comfortably in chair. Sitter is at bedside. Patient remains on high flow nasal cannula. Patient remains on IV Bumex. Cordis, chest tube and right pigtail catheter all remain in place. On 08/02/2021 patient was seen and examined in the ICU he is alert and oriented 3 in no apparent distress, sitting up in a chair, he is maintained on high flow oxygen, with FiO2 of 45, pulse ox is 93% temperature 97.2 pulse 80 respiration 22 blood pressure 129/46, he denies any fever or chills no headache or dizziness no chest pain no shortness of breath no cough no nausea no vomiting no abdominal pain no diarrhea and no urinary symptoms, chest tube is still in place, he is maintained on Bumex 2 mg IV every 8 hours On 08/03/2021 patient remains in the intensive care unit. Patient is alert and oriented sitting comfortably in chair. Discussed case with surgical team Bumex has been DC'd. Creatinine 2.25 bun 70. Chest tube remains in place. Patient remains on high flow 60%. This time patient denies chest pain or shortness socorro th. Patient denies diarrhea. Patient denies any urinary burning or frequency On 08/04/2021 patient was seen and examined, in the ICU, he is alert and oriented 3 in no apparent distress, there is no fever or chills no headache or dizziness no chest pain no shortness of breath no cough no nausea or vomiting no abdominal pain no diarrhea and no urinary symptoms he still has a left sided chest to and he is complaining of discomfort at the site of the 2 he is maintained on oxygen at 8 L nasal cannula his pulse ox is 96% blood pressure 126/62 pulse 63 respiration 24 temperature 97.9 On 08/05/2021 patient was seen and examined in the ICU he is alert and oriented 3 in no apparent distress he is sitting up in a chair he is complaining of discomfort in the left chest at the site of the chest to he is also complaining of pain when coughing otherwise he denies any complaints at this time his vital exam reveals a temperature of 98 pulse 65 respiration 30 blood pressure 136/66 pulse ox 98% on oxygen 3 L nasal cannula, white blood count is 14.4 hemoglobin 8.0 platelet count 192 INR 1.2 BUN 85 creatinine 2.2 On 08/06/2021 patient remains in the intensive care unit. Patient is alert and oriented 3. White blood cell increasing to 15.3 per. Per critical care services will check UA and monitor fever pattern no need for antibiotic treatment at this time. Creatinine 2.53 and bun 89. Nephrology services are following. Current vitals temp 97.6, heart rate 64, pulse ox 94% on 3 L, blood pressure 166/57 08/07/2021 patient remains in the intensive care unit confusion has improved. Nephrology services are following. Patient remains with significant output from chest tubes. Current vitals temp 97.9, respiratory rate 22, blood pressure 124/60 to 98% on 5 L On 08/08/2021 patient is alert and oriented 3 currently sitting up in the care unit. Per nursing staff patient has been up ambulating with assistance. Still having significant output from chest tubes. Patient also getting treated for oral thrush. Discharge planning is in progress patient will likely need inpatient rehab upon discharge On 08/09/2021 patient was seen and examined in the ICU, he is sitting up in a chair, he is complaining of discomfort in his mouth due to thrush, he also has occasional cough otherwise he denies any complaints there is no fever or chills no headache or dizziness, no chest pain or shortness of breath no nausea or vomiting no abdominal pain no diarrhea no blood in the stools no burning with urination no frequency or urgency and no hematuria On 08/10/2021 patient remains in the intensive care unit. Currently working with physical therapy. Patient has positive sputum culture. Creatinine 2.7 bun 110. Nephrology services are following. Patient still having significant outpu t from chest tubes. Discussed case with cardiothoracic surgery no plans to remove chest tubes at this time. Objective - Vital Signs Vital signs: Vital Signs Temp 97.7 F 08/10/21 04:00 Pulse 65 08/10/21 09:00 Resp 21 08/10/21 09:00 BP 110/65 08/10/21 09:00 Pulse Ox 92 L 08/10/21 09:00 Intake & Output 08/09/21 08/10/21 08/10/21 18:59 06:59 18:59 Intake Total 1300 100 360 Output Total 780 635 100 Balance 520 -535 260 Weight 73.7 kg Intake: IV 100 Cefepime 1 gm In Sodium 100 Chloride 0.9% 50 ml @ 12. 5 mls/hr IVPB Q12HR [facility] Rx#:[id number] Intake, IV Titration 100 Amount Cefepime 2 gm In Sodium 100 Chloride 0.9% 100 ml @ 25 mls/hr IVPB Q12HR [facility] Rx #:[id number] Oral 1200 360 Output: Chest Tube Drainage 380 210 L pleural 160 80 Right Posterior Chest 220 130 Urine 400 425 100 Other: Voiding Method Toilet Toilet Toilet Urinal Urinal Urinal # Voids 1 # Bowel Movements 1 1 ABP, PAP, CO, CI - Last Documented Arterial Blood Pressure 119/35 Pulmonary Artery Pressure 35/28 Cardiac Output 5 Cardiac Index 2.7 - Exam In general patient is alert and oriented x 3 in no distress HEENT head normocephalic and atraumatic Neck is supple no JVD no goiter no lymphadenopathy no carotid bruit Chest examination reveals a scattered crackles in both lung sousa no wheezing Cardiac exam reveals regular heart sounds S1 and S2 no gallops no murmurs Abdomen is soft nontender no organomegaly with normal bowel sounds Extremity exam reveals no edema no cyanosis or clubbing Neurological examination reveals no gross focal deficits - Labs CBC & Chem 7: 08/10/21 05:45 08/10/21 05:45 Labs: Abnormal Lab Results - Last 24 Hours (Table) 08/09/21 08/09/21 08/09/21 Range/Units 11:37 16:43 20:44 WBC (3.8-10.6) k/uL RBC (4.30-5.90) m/uL Hgb (13.0-17.5) gm/dL Hct (39.0-53.0) % MCV (80.0-100.0) fL MCHC (31.0-37.0) g/dL RDW (11.5-15.5) % Neutrophils # (Manual) (1.3-7.7) k/uL Lymphocytes # (Manual) (1.0-4.8) k/uL Macrocytosis PT (9.0-12.0) sec INR (<1.2) Sodium (137-145) mmol/L BUN (9-20) mg/dL Creatinine (0.66-1.25) mg/dL Glucose (74-99) mg/dL POC Glucose (mg/dL) 204 H 174 H 204 H (75-99) mg/dL Calcium (8.4-10.2) mg/dL 08/10/21 08/10/21 08/10/21 Range/Units 05:45 05:45 05:45 WBC 16.1 H (3.8-10.6) k/uL RBC 2.61 L (4.30-5.90) m/uL Hgb 8.2 L (13.0-17.5) gm/dL Hct 27.2 L (39.0-53.0) % MCV 104.4 H (80.0-100.0) fL MCHC 29.9 L (31.0-37.0) g/dL RDW 21.3 H (11.5-15.5) % Neutrophils # (Manual) 14.81 H (1.3-7.7) k/uL Lymphocytes # (Manual) 0.32 L (1.0-4.8) k/uL Macrocytosis Marked A PT 12.8 H (9.0-12.0) sec INR 1.2 H (<1.2) Sodium 132 L (137-145) mmol/L BUN 110 H* (9-20) mg/dL Creatinine 2.72 H (0.66-1.25) mg/dL Glucose 111 H (74-99) mg/dL POC Glucose (mg/dL) (75-99) mg/dL Calcium 7.9 L (8.4-10.2) mg/dL 08/10/21 Range/Units 06:40 WBC (3.8-10.6) k/uL RBC (4.30-5.90) m/uL Hgb (13.0-17.5) gm/dL Hct (39.0-53.0) % MCV (80.0-100.0) fL MCHC (31.0-37.0) g/dL RDW (11.5-15.5) % Neutrophils # (Manual) (1.3-7.7) k/uL Lymphocytes # (Manual) (1.0-4.8) k/uL Macrocytosis PT (9.0-12.0) sec INR (<1.2) Sodium (137-145) mmol/L BUN (9-20) mg/dL Creatinine (0.66-1.25) mg/dL Glucose (74-99) mg/dL POC Glucose (mg/dL) 139 H (75-99) mg/dL Calcium (8.4-10.2) mg/dL Microbiology - Last 24 Hours (Table) 08/06/21 17:04 Blood Culture - Preliminary Blood No Growth after 72 hours 08/06/21 16:58 Blood Culture - Preliminary Blood No Growth after 72 hours 08/07/21 04:05 Gram Stain - Final Sputum Sputum Culture - Final Klebsiella pneumoniae Assessment and Plan Assessment: 1. Status post mitral valve replacement, tricuspid valve repair and single- vessel bypass grafting. 2. Right-sided pleural effusion 3. Coagulopathy. Resolved 4. History of congestive heart failure 5. History of valvular heart disease with previous mitral valve repair with a mitral clip at [facility] 6. History of coronary artery disease 7. History of hyperlipidemia 8. History of renal insufficiency 9. Previous history of atrial fibrillation 10. Leukocytosis White blood cell up to 15.3. Critical care services ordering UA. No need for antibiotics at this time per critical care will continue to monitor. Sputum culture currently pending 11. Sputum culture positive for Klebsiella pneumonia patient started on IV antibiotics Thank you for this consultation we will continue to follow patient closely throughout stay Patient remains in the intensive care unit Repeat labs ordered Patient to be transitioned off IV insulin to sliding scale coverage. A1c 5.8
[2021-08-10 11:16] LABS: Glucose,Whole Blood 189 mg/dL (75-99)
--- NOTE | 2021-08-10 11:16 | P.PN ---
Subjective Progress Note Date: 08/10/21 This is a 81-year-old female who had mitral valve replacement, tricuspid valve repair in 1 vessel bypass surgery on 328 along with closure of ASD. Patient had mitral valve. In the past for mitral insufficiency. Patient seemed to be relatively stable. He has bilateral pleural chest tube and also pigtail catheters. Denies any significant chest pain or shortness of breath. He seemed to be in paced rhythm. Doesn't appear to be in acute distress. His creatinine is going up. Patient has history of chronic renal failure. Nephrology is consulted. We'll continue current medical therapy. Increase activity as tolerated. Further recommendations depend upon the clinical course. no acute cardiac arrhythmias. 08/05/2021: This patient had replacement of right pleural tube yesterday by radiologist. Still has a left pleural tube for pneumothorax. Patient is complaining of fatigue and tiredness. Complaints of some chest pain. His creatinine has shown some improvement. He is off diuretics. Patient has a pacemaker rhythm with underlying atrial fibrillation. There is a plan to restart Coumadin soon. Otherwise patient is making slow but steady progress. We'll continue rest of the management along with inspiratory spirometry. 08/06/2021: Patient is still has bilateral chest tubes with about 60-80 mL of drainage. He is complaining of being fatigued and tired. His urine output seemed to be on the low side and creatinine is slightly higher. Seen by an a properly who recommended to keep the patient off diuretics. Patient isn't pacer rhythm. Back on Coumadin. Continue rest of the medication and incentive spirometry. Will follow. 08/07/2021: This patient still has bilateral chest tubes with a significant drainage. Apparently the chest tube still in place. His urine output output is marginal. Creatinine is about 2.3. Is going to receive IV Bumex. Patient remains in pacemaker rhythm. Denies any chest pain. He happened to ambulate with exertional shortness of breath. Patient's white count is elevated. No fever. Sepsis workup is being done. Patient is otherwise clinically stable. We'll continue current medical therapy including Coumadin. Will follow 08/08/2021: This patient seemed to be clinically have on the same. Still have some drainage from the chest tubes and they will be continued. Apparently there'll have Pleurx treatment before discharge. Patient is in pacemaker rhythm. Blood pressure is reasonable. His creatinine is slightly high. Patient is mildly fluid overloaded being followed by nephrology. Patient is ambulating. Continue current medical therapy. Incentive spirometry. Patient is on Coumadin. Further recommendations depend upon the clinical course. 08/09/2021: The patient seemed to be relatively stable. Still has bilateral chest tubes. Patient is in atrial fibrillation with intermittent pacemaker capture. Patient has oral thrush for which he is getting some nystatin. Able to get somewhat, but still having some difficulty. Able to emanate with assistance. The kidney function shows creatinine of 2.5. Diuretics are being held. White count is mildly elevated. Patient was started empirically on antibiotic. Overall, patient is limping without any significant changes. We will continue current medical therapy. We will follow . Patient is on Coumadin and INR is about 1.2. 08/10/2021: Patient seemed to be relatively stable. Still has a bilateral chest tubes still draining some serous fluid. Is not in any acute distress. He'll urine output is fair. His creatinine has gone up to 2.7. He is going to get another 1 mg of Bumex. Remains in atrial fibrillation with underlying pacemaker rhythm. He says his throat is feeling feeling better and eating better. Anemia, stable. Continue current management. Increase activity and continue with incentive spirometry. We'll follow Objective - Vital Signs Vital signs: Vital Signs Temp 97.7 F 08/10/21 04:00 Pulse 66 08/10/21 11:03 Resp 22 08/10/21 11:00 BP 126/80 08/10/21 11:00 Pulse Ox 97 08/10/21 11:00 Intake & Output 08/09/21 08/10/21 08/10/21 18:59 06:59 18:59 Intake Total 1300 100 410 Output Total 780 635 100 Balance 520 -535 310 Weight 73.7 kg Intake: IV 100 50 Cefepime 1 gm In Sodium 100 50 Chloride 0.9% 50 ml @ 12. 5 mls/hr IVPB Q12HR [facility] Rx#:[id number] Intake, IV Titration 100 Amount Cefepime 2 gm In Sodium 100 Chloride 0.9% 100 ml @ 25 mls/hr IVPB Q12HR [facility] Rx #:[id number] Oral 1200 360 Output: Chest Tube Drainage 380 210 L pleural 160 80 Right Posterior Chest 220 130 Urine 400 425 100 Other: Voiding Method Toilet Toilet Toilet Urinal Urinal Urinal # Voids 1 # Bowel Movements 1 1 ABP, PAP, CO, CI - Last Documented Arterial Blood Pressure 119/35 Pulmonary Artery Pressure 35/28 Cardiac Output 5 Cardiac Index 2.7 - Exam GENERAL EXAM: Patient is alert and oriented and doesn't appear to be in any acute distress HEENT: Normocephalic. Normal reaction of pupils, equal size, normal range of extraocular motion. No erythema or exudates in the throat. NECK: No masses, no nuchal rigidity. CHEST: Postsurgical with the chest tubes and catheters LUNGS: Diminished air entry: Bilateral chest tubes present HEART: S1 and S2 normal with no audible mumurs or gallops. Regular rhythm, femorals equal on both sides.. ABDOMEN: No hepatosplenomegaly, normal bowel sounds, no guarding or rigidity. SKIN: No rashes CENTRAL NERVOUS SYSTEM: No focal deficits. EXTREMITIES: No cyanosis, clubbing or edema. - Labs CBC & Chem 7: 08/10/21 05:45 08/10/21 05:45 Labs: Abnormal Lab Results - Last 24 Hours (Table) 08/09/21 08/09/21 08/09/21 Range/Units 11:37 16:43 20:44 WBC (3.8-10.6) k/uL RBC (4.30-5.90) m/uL Hgb (13.0-17.5) gm/dL Hct (39.0-53.0) % MCV (80.0-100.0) fL MCHC (31.0-37.0) g/dL RDW (11.5-15.5) % Neutrophils # (Manual) (1.3-7.7) k/uL Lymphocytes # (Manual) (1.0-4.8) k/uL Macrocytosis PT (9.0-12.0) sec INR (<1.2) Sodium (137-145) mmol/L BUN (9-20) mg/dL Creatinine (0.66-1.25) mg/dL Glucose (74-99) mg/dL POC Glucose (mg/dL) 204 H 174 H 204 H (75-99) mg/dL Calcium (8.4-10.2) mg/dL 08/10/21 08/10/21 08/10/21 Range/Units 05:45 05:45 05:45 WBC 16.1 H (3.8-10.6) k/uL RBC 2.61 L (4.30-5.90) m/uL Hgb 8.2 L (13.0-17.5) gm/dL Hct 27.2 L (39.0-53.0) % MCV 104.4 H (80.0-100.0) fL MCHC 29.9 L (31.0-37.0) g/dL RDW 21.3 H (11.5-15.5) % Neutrophils # (Manual) 14.81 H (1.3-7.7) k/uL Lymphocytes # (Manual) 0.32 L (1.0-4.8) k/uL Macrocytosis Marked A PT 12.8 H (9.0-12.0) sec INR 1.2 H (<1.2) Sodium 132 L (137-145) mmol/L BUN 110 H* (9-20) mg/dL Creatinine 2.72 H (0.66-1.25) mg/dL Glucose 111 H (74-99) mg/dL POC Glucose (mg/dL) (75-99) mg/dL Calcium 7.9 L (8.4-10.2) mg/dL 08/10/21 Range/Units 06:40 WBC (3.8-10.6) k/uL RBC (4.30-5.90) m/uL Hgb (13.0-17.5) gm/dL Hct (39.0-53.0) % MCV (80.0-100.0) fL MCHC (31.0-37.0) g/dL RDW (11.5-15.5) % Neutrophils # (Manual) (1.3-7.7) k/uL Lymphocytes # (Manual) (1.0-4.8) k/uL Macrocytosis PT (9.0-12.0) sec INR (<1.2) Sodium (137-145) mmol/L BUN (9-20) mg/dL Creatinine (0.66-1.25) mg/dL Glucose (74-99) mg/dL POC Glucose (mg/dL) 139 H (75-99) mg/dL Calcium (8.4-10.2) mg/dL Microbiology - Last 24 Hours (Table) 08/06/21 17:04 Blood Culture - Preliminary Blood No Growth after 72 hours 08/06/21 16:58 Blood Culture - Preliminary Blood No Growth after 72 hours 08/07/21 04:05 Gram Stain - Final Sputum Sputum Culture - Final Klebsiella pneumoniae Assessment and Plan (1) Status post mitral valve replacement Current Visit: Yes Status: Acute Code(s): Z95.2 - PRESENCE OF PROSTHETIC H EART VALVE SNOMED Code(s): 4717773431927 (2) Status post single vessel coronary artery bypass Current Visit: Yes Status: Acute Code(s): Z95.1 - PRESENCE OF AORTOCORONARY BYPASS GRAFT SNOMED Code(s): 779206736 (3) Pleural effusion Current Visit: No Status: Acute Code(s): J90 - PLEURAL EFFUSION, NOT ELSEWHERE CLASSIFIED SNOMED Code(s): 64997510 (4) Acute on chronic renal failure Current Visit: Yes Status: Acute Code(s): N17.9 - ACUTE KIDNEY FAILURE, UNSPECIFIED; N18.9 - CHRONIC KIDNEY DISEASE, UNSPECIFIED SNOMED Code(s): 000417340 (5) Chronic a-fib Current Visit: No Status: Acute Code(s): I48.2 - CHRONIC ATRIAL FIBRILLATION * DO NOT USE * SNOMED Code(s): 570327457 (6) Presence of permanent cardiac pacemaker Current Visit: Yes Status: Acute Code(s): Z95.0 - PRESENCE OF CARDIAC PACEMAKER SNOMED Code(s): 681186890 Plan: Patient's remains relatively stable. In A. fib with controlled ventricular response. Blood pressure is stable. Pleural tubes are still present. His creatinine is about 2.7. Receiving IV Bumex. Continue current medical therapy
--- NOTE | 2021-08-10 11:36 | P.PN ---
Subjective Progress Note Date: 08/10/21 This is a very pleasant 81-year-old male patient is being seen in follow-up. The patient is postop day #7. 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 Note that the patient had a preoperative right-sided pleural effusion along with various other medical problems and comorbidities. Postop, the patient becomes hypoxic and short of breath post extubation. He was on high flow oxygen. The right-sided pleural effusion was noted and at that point a pigtail catheter was inserted into the right hemithorax. The catheter was inserted and the patient was having adequate drainage for the past 48 hours and since yesterday, there has been no output. The patient continues to have a left-sided chest tube and output has been around 400 mL over the past 8-12 hours. The patient is using incentive spirometer. The patient is currently on 8 L of oxygen by nasal cannula with a pulse oximetry 96%. The patient is pulling approximately 1000 on his incentive spirometer. His cardiac rhythm is basically rate of 60. The patient is hemodynamically stable and the patient is on no pressors at this point in time. He doesn't component of chronic kidney disease. The BUN is at 76 with a creatinine of 2.36. Potassium level is at 3.7 with a sodium level of 137. Hemoglobin is at 7.8 with a platelet count 234. A repeat chest x-ray was done and it showed cardiomegaly, a loculated right-sided pleural effusion, impacted on the right, and a chest tube on the left and post thoracotomy changes in the mid sternal area. The patient has chronic kidney disease, obstructive sleep apnea, he has undergone previous thoracenteses regarding the right-sided pleural effusion and pleural fluid cytology has been essentially negative for malignancy. He is awake and alert and following commands and answering questions appropriately. On today's evaluation of 08/05/2021, I'm seeing the patient in the follow-up. The patient is postop day #8. Noted the patient continues to have drainage from the chest tube. The chest tube on the left has drained approximately 600 mL total since 24 hours and 200 mL over the past 8 hours. Note that the patient also has a new pigtail catheter inserted by interventional radiology and immediately after insertion, a total of 900 mL of fluid was aspirated and the patient has put out another 600 mL over the past 8 hours. As such, the output remains considerably high. Meanwhile, the chest x-ray from today showing improvement in the volume status and improvement in the right-sided pleural effusion. No localization at this point in time. Pigtail catheter is in a good location. The patient remains on 3 L of O2 nasal cannula. White cell count is 14.5 with hemoglobin 8.2 and a platelet count of 192. Sodium is at 139 with a potassium level of 3.9 and a BUN of 85 with a creatinine of 2.2 and the creatinine is stable for now. Patient continues to use incentive spirometer. The patient has a pacemaker in place and the cardiac rhythmat this point in time. Sternal wound is dry clean and intact. The patient is afebrile. The patient is hemodynamically stable at this point in time. No nausea. No vomiting. Abdomen is slightly distended and the patient may have some partial ileus. Nevertheless, his passing gas and he is also having regular bowel movements. On 08/06/2021, the patient is being seen for a follow-up and the patient is postop day #9. On today's evaluation, the patient is sitting up on a chair. He did ambulate yesterday for a total of 3 times. Using incentive spirometer and pulling approximately 1200 mL on dialysis. The patient continues to have a left-sided chest tube and the total amount of output over the past 24 hours has been in the order of 550 mL an over the past 8 hours has been 210 mL. The patient also has a pigtail catheter on the right and the total amount of output has been 600 mL over the past 24 hours and 150 mL over the past 8 hours. The chest x-ray from today shows residual bilateral pleural effusion right more than left. There is some cardiomegaly. Chest tubes remains in a good location. No evidence of any air leak and the Pleur-evac on the left. Otherwise, the patient is doing well. No significant respiratory distress and the patient remains on 2 L of O2 by nasal cannula and the blood work from today shows a white cell count of 15.3 which is concerning at this number is on the right and hemoglobin of 8.6. Correlation profile is within normal. BUN is 89 with a creatinine of 2.4 and the patient is known to have chronic kidney disease. Creatinine yesterday was 2.2. The rest of the electrodes are all within normal limits. On 08/07/2021, I'm seeing the patient for a follow-up. The patient is still having excessive output from the chest tubes. The left-sided chest tube has drained approximately 530 mL over the past 24 hours in the right-sided chest tube is draining around 1200 mL over the past 24 hours. As such, the chest tubes are going to stay in place. There is a small left apical pneumothorax. Incentive spirometer is being used on the patient's pulling approximately tho usand. Of concern also is the rise in the white cell count which is up to 18. The pro-Level Was 1.28. The Patient Has Chronic Kidney Disease. No Fever. Cultures Were Sent and Was Awaiting for Final Results. Meanwhile, the patient's white cell count is 18 with hemoglobin of 8.6 and a BUN is at 99 with a creatinine of 2.3 and his sodium level is at 135. Moving all 4 extremity is without any limitation. No altered mentation. Sternum stable clean and intact. No chest pain. Abdomen is slightly distended. No diarrhea. He did have a small bowel movement today. Serum bicarb is down to 18 the patient is going to be started on oral bicarbonate replacement. The patient remains on oxygen at 3 L per minute nasal cannula. 08/08/2021, the patient is postop day #11. The patient is sitting up on a chair and the patient is calm and comfortable. The active issue for now remains downgoing drainage from the tubes from both chest. The patient has a right- sided pigtail catheter that has drained approximately 170 mL over the past 8 hours and 550 mL over the past 24 hours. As for the left-sided chest tube, this has drained approximately 130s over the past 8 hours and 260 mL over the past 24 hours. The drainage remains considerably high. Continues using incentive spirometer. No evidence of any pneumothorax on today's chest x-ray. The sternum stable clean and intact. There is some residual pleural effusion on the right which is loculated based on today's chest x-ray. The patient otherwise doing well. The patient has no fever. The pro-calcitonin level needs to be rechecked. The patient's creatinine is stable at 2.5. The patient has a mean of 94. The white cell count is mildly elevated yet improved compared to yesterday and the white cell count is at 17.1. The patient is on oral bicarbonate replacement and a serum bicarbonate 25 on today's evaluation. On today's evaluation of 08/09/2021, the patient is postop day #12. Patient remains on oxygen at 2 L per minute nasal cannula. His cardiac rhythm is occasionally paced with underlying H fibrillation. The patient remains on 4 L of O2 nasal cannula. Overall fluid balance has been -1.2 L of fluid over the past 24 hours. The patient remains hemodynamically stable. The right-sided chest tube has drained approximately 190 mL over the past 8 hours and 524 mL's over the past 24 hours in the left-sided chest tube is draining around 140 mL over the past 8 hours and 230 mL over the past 24 hours. Chest x-ray still shows residual breath and pulmonary infiltrates, and there is ongoing pulmonary edema still with a loculated right-sided pleural effusion which is smaller and the pigtail catheter is in good location. Creatinine is stable at 2.5. The patient is on warfarin. The patient is receiving 2 mg of warfarin today and INR is at 1.2. He continues to have some oropharyngeal candidiasis and thrush and the patient has been given the course solution. The patient otherwise has no other complaints. Is tolerating his diet. He is having some leukocytosis which is undergoing concern and the patient has gram-negative bacillus in the sputum. Based on that, and based on his postop status and valve replacement surgery, we opted to put the patient empiric antibiotics with IV cefepime. His pro-calcit onin level is slightly elevated at 1.15 On or 2021, the patient is postop day #13. We are still struggling with increased output from the chest tube although this is gradually improving. The patient has a pigtail on the right side and the total amount of output over the past 24 hours has been 450 mL and the output over the past 12 hours his been on the 30 mL. Output from the left-sided chest tube has been 250 mL and 80 mL over the past 12 hours. The chest x-ray showing some loculated right-sided pleural effusion and right basilar effusion and a pigtail remains in a good location. The patient also has a left-sided chest tube in a good location. The patient remains on oxygen at 2 L per minute nasal cannula. I was concerned of an infection and the sputum sample showed Klebsiella pneumoniae. The patient's white echo was slightly elevated and the patient doesn't have any fever. Based on that, I started the patient IV cefepime. The accompanied at 16.2 and hemoglobin is at 8.2. The BUN is 110 with a creatinine of 2.7 and the sodium is at 132 with a potassium level of 5.1. The patient received a total of 2 mg of warfarin yesterday and INR is at 1.2. He is ambulating. Pro-calcitonin level was slightly elevated. Remains on broad-spectrum antibiotics. Sternum stable clean and intact. Oropharyngeal candidiasis is also improving. Objective - Vital Signs Vital signs: Vital Signs Temp 97.7 F 08/10/21 04:00 Pulse 66 08/10/21 11:03 Resp 22 08/10/21 11:00 BP 126/80 08/10/21 11:00 Pulse Ox 97 08/10/21 11:00 Intake & Output 08/09/21 08/10/21 08/10/21 18:59 06:59 18:59 Intake Total 1300 100 410 Output Total 780 635 100 Balance 520 -535 310 Weight 73.7 kg Intake: IV 100 50 Cefepime 1 gm In Sodium 100 50 Chloride 0.9% 50 ml @ 12. 5 mls/hr IVPB Q12HR PHIL Rx#:[id number] Intake, IV Titration 100 Amount Cefepime 2 gm In Sodium 100 Chloride 0.9% 100 ml @ 25 mls/hr IVPB Q12HR PHIL Rx #:[id number] Oral 1200 360 Output: Chest Tube Drainage 380 210 L pleural 160 80 Right Posterior Chest 220 130 Urine 400 425 100 Other: Voiding Method Toilet Toilet Toilet Urinal Urinal Urinal # Voids 1 # Bowel Movements 1 1 ABP, PAP, CO, CI - Last Documented Arterial Blood Pressure 119/35 Pulmonary Artery Pressure 35/28 Cardiac Output 5 Cardiac Index 2.7 - Exam CONSTITUTIONAL: Sitting up to the bedside chair in the intensive care unit, appears comfortable, cooperative, and is in no apparent acute distress. HEENT: Neck is supple, no JVD, no lymphadenopathy. RESPIRATORY: Lungs sounds essentially clear throughout, diminished to his bilateral bases, right greater than left. Scattered wheezes and rhonchi. Respirations are symmetrical and nonlabored. Currently on 2 L high flow nasal cannula, oxygen saturations 96%. Able to achieve more than 1000 MLS on the incentive spirometer. CARDIOVASCULAR: Regular rhythm and rate. S1 and S2 present, negative for S3, gallop or murmur. Sternum is stable. Palpable peripheral pulses bilaterally. No calf pain or tenderness noted. Heart hugger in place with patient demonstrating appropriate use with encouragement. Knee-high SUMI hose and sequential compression devices in place to his bilateral lower extremities. Bedside telemetry showing paced rhythm at 60 BPM. GASTROINTESTINAL: Abdomen soft, nontender, distended. Active bowel sounds present 4 quadrants. Tolerating diet. No guarding or rigidity. Bowel movement 2 in the last 24 hours. The abdomen is slightly distended and tympanic at this point in time. GENITOURINARY: Continues to void. Urine output is adequate for now. INTEGUMENTARY: Skin is warm and dry with no evidence of clubbing or cyanosis. Midline sternal incision clean dry and well approximated, covered with dry intact dressing. Left lower extremity EVH site well approximated without redness or drainage. NEUROLOGIC: Cranial nerves II through XII intact. No focal deficits. MUSKULOSKELETAL: Able to move all extremities, strength equal bilaterally, generalized weakness. PSYCHIATRIC: Alert and oriented 3, appropriate affect. - Labs CBC & Chem 7: 08/10/21 05:45 08/10/21 05:45 Labs: Abnormal Lab Results - Last 24 Hours (Table) 08/09/21 08/09/21 08/09/21 Range/Units 11:37 16:43 20:44 WBC (3.8-10.6) k/uL RBC (4.30-5.90) m/uL Hgb (13.0-17.5) gm/dL Hct (39.0-53.0) % MCV (80.0-100.0) fL MCHC (31.0-37.0) g/dL RDW (11.5-15.5) % Neutrophils # (Manual) (1.3-7.7) k/uL Lymphocytes # (Manual) (1.0-4.8) k/uL Macrocytosis PT (9.0-12.0) sec INR (<1.2) Sodium (137-145) mmol/L BUN (9-20) mg/dL Creatinine (0.66-1.25) mg/dL Glucose (74-99) mg/dL POC Glucose (mg/dL) 204 H 174 H 204 H (75-99) mg/dL Calcium (8.4-10.2) mg/dL 08/10/21 08/10/21 08/10/21 Range/Units 05:45 05:45 05:45 WBC 16.1 H (3.8-10.6) k/uL RBC 2.61 L (4.30-5.90) m/uL Hgb 8.2 L (13.0-17.5) gm/dL Hct 27.2 L (39.0-53.0) % MCV 104.4 H (80.0-100.0) fL MCHC 29.9 L (31.0-37.0) g/dL RDW 21.3 H (11.5-15.5) % Neutrophils # (Manual) 14.81 H (1.3-7.7) k/uL Lymphocytes # (Manual) 0.32 L (1.0-4.8) k/uL Macrocytosis Marked A PT 12.8 H (9.0-12.0) sec INR 1.2 H (<1.2) Sodium 132 L (137-145) mmol/L BUN 110 H* (9-20) mg/dL Creatinine 2.72 H (0.66-1.25) mg/dL Glucose 111 H (74-99) mg/dL POC Glucose (mg/dL) (75-99) mg/dL Calcium 7.9 L (8.4-10.2) mg/dL 08/10/21 08/10/21 Range/Units 06:40 11:15 WBC (3.8-10.6) k/uL RBC (4.30-5.90) m/uL Hgb (13.0-17.5) gm/dL Hct (39.0-53.0) % MCV (80.0-100.0) fL MCHC (31.0-37.0) g/dL RDW (11.5-15.5) % Neutrophils # (Manual) (1.3-7.7) k/uL Lymphocytes # (Manual) (1.0-4.8) k/uL Macrocytosis PT (9.0-12.0) sec INR (<1.2) Sodium (137-145) mmol/L BUN (9-20) mg/dL Creatinine (0.66-1.25) mg/dL Glucose (74-99) mg/dL POC Glucose (mg/dL) 139 H 189 H (75-99) mg/dL Calcium (8.4-10.2) mg/dL Microbiology - Last 24 Hours (Table) 08/06/21 17:04 Blood Culture - Preliminary Blood No Growth after 72 hours 08/06/21 16:58 Blood Culture - Preliminary Blood No Growth after 72 hours 08/07/21 04:05 Gram Stain - Final Sputum Sputum Culture - Final Klebsiella pneumoniae Assessment and Plan Plan: 1 postop day # 13 following mitral valve replacement, tricuspid valve repair and single-vessel bypass surgery with SVG to acute marginal. 2 post thoracotomy with secondary atelectatic changes and bilateral pleural effusion with hypoxic respiratory failure, currently on 2 L O2 by nasal cannula, continues to have bilateral chest tubes, etc. on the right, regular chest tube on the left. Output remains considerably high. 3 chronic right-sided loculated right-sided pleural effusion, post previous thoracentesis with negative fluid cytology. The patient has a pigtail catheter insertion 2 and the output from the predicted From the right is considerably high still. The patient continues to have increased output from the chest tubes. The output is being monitored for now and there is persistent output from the right-sided pigtail catheter. No evidence of any pneumothorax. Repeat chest x-ray shows a persistent smaller sized right-sided pleural effusion which is somewhat loculated and upper lobe and free-flowing in the lower lobe. . 4 post thoracotomy left-sided pleural effusion, chest tube is in place on the left, the output remains high in the patient is a small left apical pneumothorax. The patient continues to have increased output from the left- sided chest tube 5 acute hypoxic respiratory failure currently on 2 L of oxygen by cannula 6 history of sick sinus syndrome and the patient has a [employer] pacemaker placement in 2017 7 chronic atrial fibrillation maintained on medical condition with warfarin on outpatient basis. The patient has undergone closure of the left atrial appendage 8 chronic systolic heart failure 98 shows septal defect post closure 10 chronic kidney disease stage III 11 restrictive lung disease with a preop FEV1 of 47% of predicted 12 seconds sleep apnea 13 postoperative acute blood loss anemia, expected outcome of surgery. The hemoglobin remains stable. 14 leukocytosis , persistent with mild elevation of the ABDOMINAL level. Afebrile. We'll cover the patient empiric antibiotics. 15 abdominal distention, rule out ileus. This isn't inactive in stable problem, and the patient is producing adequate amount of bowel movements. Bowel sounds are still sluggish. Plan Clinically stable clinically. Monitor the output from the chest tubes Continue IV cefepime Klebsiella was cultured from sputum sample Monitor the white cell count Pro-calcitonin level is slightly elevated Serum bicarbonate level has improved Keep the chest tube in place Repeat chest x-ray in the morning Continue using incentive spirometer Continue aggressive pulmonary toileting We'll continue to follow. Keep the patient ICU for another 24 hours.
[2021-08-10 16:48] LABS: Glucose,Whole Blood 202 mg/dL (75-99)
[2021-08-10] MEDS ORDERED: WARFARIN 2 MG TAB PO ONE (18:00)
[2021-08-10 20:26] LABS: Glucose,Whole Blood 134 mg/dL (75-99)
[2021-08-10] MEDS: ATORVASTATIN 40 MG TAB PO SCH (20:32)
[2021-08-10] MEDS: MELATONIN 3 MG TABLET PO SCH (20:32)
[2021-08-10] MEDS: CALCIUM ACETATE 667 MG TAB PO SCH (20:32)
[2021-08-11 06:45] LABS: Glucose,Whole Blood 138 mg/dL (75-99)
[2021-08-11] MEDS: PANTOPRAZOLE 40 MG TABLET PO SCH (06:57)
[2021-08-11] MEDS: INSULIN ASPART (NovoLOG) 100 UNIT/ML VIAL SQ SCH ×4 (06:58→22:02)
--- NOTE | 2021-08-11 07:08 | XR ---
EXAMINATION TYPE: XR chest 1V portable DATE OF EXAM: 08/11/2021 COMPARISON: 08/10/2021 HISTORY: SOB, Follow Up FINDINGS: Stable left-sided chest tube. No evidence for sizable pneumothorax. Pleural-parenchymal density right midlung zone and right lower lobe persist unchanged. Small right ef fusion noted. Stable appearance of the cardio-mediastinal structures at this time. IMPRESSION: 1. Stable portable chest. Clinical correlation and follow up until resolution is recommended.
[2021-08-11 07:46] LABS: Anisocytosis Moderate; Basophils % (A) 0 %; Eosinophils # (A) 0.1 k/uL (0-0.7); Eosinophils % (A) 1 %; HCT 29.9 % (39.0-53.0); HGB 8.9 gm/dL (13.0-17.5); Hypochromasia Marked; Lymphocytes # (A) 0.3 k/uL (1.0-4.8); Lymphocytes % (A) 2 %; MCH 30.8 pg (25.0-35.0); MCHC 29.6 g/dL (31.0-37.0); MCV 103.9 fL (80.0-100.0); Macrocytosis Marked; Mean Platelet Volume 9.7; Monocytes # (A) 0.8 k/uL (0-1.0); Monocytes % (A) 5 %; Neutrophils % (A) 92 %; Platelet Count 242 k/uL (150-450); Poikilocytosis Moderate; RBC 2.87 m/uL (4.30-5.90); RDW 21.7 % (11.5-15.5); WBC 16.3 k/uL (3.8-10.6)
[2021-08-11 07:50] LABS: INR 1.4 (<1.2); Prothrombin Time 14.4 sec (9.0-12.0)
--- NOTE | 2021-08-11 07:52 | P.PN ---
Subjective Progress Note Date: 08/11/21 Principal diagnosis: Mitral valve regurgitation, tricuspid valve regurgitation, coronary artery disease. Previous medical history of CAD with previous cardial infarction and PCI, hypertension, chronic atrial fibrillation on Coumadin for anticoagulation status post cardioversion, sick sinus syndrome [facility] permanent pacemaker placement in 2017, chronic systolic heart failure, atrial septal defect status post closure, previous MitraClip in 2019, chronic renal insufficiency, previous tobacco dependence, severe restrictive lung disease, obstructive sleep apnea, recurrent right-sided pleural effusio with previous thoracentesis x 4, remote history of pneumonia, family history of premature coronary artery disease POD #14 mitral valve replacement with 31 mm Mosaic porcine valve prosthesis, tricuspid valve repair with 30 mm MC3 band, coronary artery bypass grafting 1 with reverse saphenous vein graft to the obtuse marginal artery, endovascular vein harvest of the left greater saphenous vein, epi-aortic ultrasound, closure of the left atrial appendage, closure of ASD Postoperative acute blood loss anemia and thrombocytopenia, expected given hemodilution and cardiopulmonary bypass pump Coagulopathy, unexpected, last coumadin dose 07/22/21 Right-sided pleural effusion, expected given history of previous right-sided effusion with thoracentesis 4, status post right-sided pigtail catheter placement by interventional radiology Leukocytosis, afebrile, sputum culture positive for Klebsiella pneumoniae Altered mental status after surgery due to delirium from lack of sleep, resolved The patient was seen and examined this morning sitting up in a recliner in the intensive care unit in no acute distress. He denies any pain other than mouth pain, denies shortness of breath. Currently on 4 L nasal cannula, achieving 1000 mL on his incentive spirometry. Remains in controlled atrial fibrillation. Labs and x-rays reviewed this morning. Left pleural chest tube and right pigtail catheter remain. Labs and x-ray reviewed. Patient remains afebrile. Has ambulated in the hallway. Objective - Vital Signs Vital signs: Vital Signs Temp 98.4 F 08/10/21 20:00 Pulse 60 08/11/21 07:00 Resp 18 08/11/21 07:00 BP 130/69 08/11/21 07:00 Pulse Ox 90 L 08/11/21 07:00 Intake & Output 08/10/21 08/11/21 08/11/21 18:59 06:59 18:59 Intake Total 1370 290 Output Total 1030 665 300 Balance 340 -375 -300 Weight 73.3 kg Intake: IV 50 50 Cefepime 1 gm In Sodium 50 50 Chloride 0.9% 50 ml @ 12. 5 mls/hr IVPB Q12HR [facility] Rx#:[id number] Oral 1320 240 Output: Chest Tube Drainage 280 265 L pleural 90 180 Right Posterior Chest 190 85 Urine 750 400 300 Other: Voiding Method Toilet Toilet Urinal Urinal # Voids 1 # Bowel Movements 1 1 ABP, PAP, CO, CI - Last Documented Arterial Blood Pressure 119/35 Pulmonary Artery Pressure 35/28 Cardiac Output 5 Cardiac Index 2.7 - Exam CONSTITUTIONAL: Appears comfortable, cooperative, no acute distress RESPIRATORY: Lungs sounds diminished bilaterally. Respirations even, nonlabored. Currently on 4 L nasal cannula with oxygen saturation 92%. Able to achieve 1000 mL on incentive spirometry. Strong non-productive cough. CARDIOVASCULAR: S1, S2 present. Irregular rate and rhythm, controlled atrial fibrillation on telemetry. Sternum stable. Palpable peripheral pulses bilaterally. Trace bilateral lower extremity edema present. No calf pain or tenderness noted. Heart hugger in place with patient demonstrating appropriate use. Antiembolism stockings, SCDs present. GASTROINTESTINAL: Abdomen soft, nontender, slightly distended. Active bowel sounds present 4 quadrants. Tolerating more of his diet despite continued mouth pain. Positive bowel movement 08/10/21 GENITOURINARY: Continues to void, 1150 mL in the last 24 hours INTEGUMENTARY: Skin is warm and dry with evidence of good perfusion. Anterior chest incision well approximated. Left lower extremity EVH site well approximated without redness or drainage. NEUROLOGIC: Cranial nerves II through XII intact MUSKULOSKELETAL: Able to move all extremities, strength equal bilaterally but generalized weakness present PSYCHIATRIC: Oriented to person place and time INVASIVE LINES AND TUBES: Right pigtail/left pleural chest tube present and connected to wall suction, no air leaks present. Left pleural chest tube with 130 mL serous drainage overnight, 300 mL in the last 24 hours. Right-sided pigtail catheter with 85 mL serous drainage overnight, 270 mL the last 24 hours. - Allied health notes Allied health notes reviewed: nursing - Labs CBC & Chem 7: 08/10/21 05:45 08/10/21 05:45 Labs: Abnormal Lab Results - Last 24 Hours (Table) 08/10/21 08/10/21 08/10/21 Range/Units 05:45 11:15 16:46 Neutrophils # (Manual) 14.81 H (1.3-7.7) k/uL Lymphocytes # (Manual) 0.32 L (1.0-4.8) k/uL POC Glucose (mg/dL) 189 H 202 H (75-99) mg/dL 08/10/21 08/11/21 Range/Units 20:25 06:43 Neutrophils # (Manual) (1.3-7.7) k/uL Lymphocytes # (Manual) (1.0-4.8) k/uL POC Glucose (mg/dL) 134 H 138 H (75-99) mg/dL Microbiology - Last 24 Hours (Table) 08/06/21 16:58 Blood Culture - Preliminary Blood No Growth after 96 hours 08/06/21 17:04 Blood Culture - Preliminary Blood No Growth after 96 hours - Imaging and Cardiology Chest x-ray: report reviewed, image reviewed Assessment and Plan Assessment: 1. Mitral valve regurgitation, previous MitraClip in 2019, status post post mitral valve replacement 2. Tricuspid valve regurgitation, status post tricuspid valve repair 3. Coronary artery disease with previous myocardial infarction and PCI, status post 1 vessel CABG 4. History of hypertension 5. Chronic atrial fibrillation on Coumadin for anticoagulation status post cardioversion, status post closure of the left atrial appendage 6. Sick sinus syndrome status post [facility] permanent pacemaker placement in 2016 7. Chronic systolic heart failure 8. Atrial septal defect status post closure 9. Acute on chronic renal insufficiency stage IIIB, baseline creatinine 1.6-1.7 10. Previous tobacco dependence 11. Severe restrictive lung disease, preoperative FEV1 47% of predicted 12. Recurrent right-sided pleural effusion, patient had right sided thoracentesis twice in 2019 and twice in 2020, status post right-sided pigtail catheter placement by IR 13. Obstructive sleep apnea 14. Remote history of pneumonia 15. Family history of premature coronary artery disease 16. Postoperative acute blood loss anemia and thrombocytopenia, expected 17. Coagulopathy, unexpected 18. Leukocytosis, elevated pro-calcitonin, afebrile, sputum culture positive for Klebsiella pneumoniae 19. Altered mental status after surgery due to delirium from lack of sleep, resolved Plan: 1. Continue low-dose aspirin, statin, norvasc 2. Continue Coumadin, will monitor daily PT/INR 3. Wean O2 as tolerated. Encourage incentive spirometry use 10 times every hour while awake. Bronchodilators per pulmonology. 4. Increase activity as tolerated. PT/OT/cardiac rehab following 5. Will monitor daily labs and x-rays. Abt per pulmonology. Diuresis per nephrology 6. GI/DVT prophylaxis 7. Insulin management per primary care service. Patient is not diabetic, preop erative hemoglobin A1c 5.8% 8. Pain control per current medication regimen. Avoid narcotics 9. Continue left pleural chest tube and right pigtail catheter. May need right sided pleurx before discharge 10. Strict accurate intake and output. Daily weights 11. Encourage oral intake, encourage supplements to improve nutrition. Continue Kools solution oral rinse 12. Discharge planning in progress. Anticipate discharge to [facility] once able to remove chest tubes 13. More recommendations to follow based on patient's progress
[2021-08-11 08:22] LABS: Calcium 8.2 mg/dL (8.4-10.2); Potassium 5.1 mmol/L (3.5-5.1)
[2021-08-11] MEDS: guaiFENesin 600 MG TABLET.ER PO SCH ×2 (08:28→22:03)
[2021-08-11] MEDS: ASCORBIC ACID 500 MG TAB PO SCH (08:29)
[2021-08-11] MEDS: allopurinoL 100 MG TAB PO SCH (08:29)
[2021-08-11] MEDS: SODIUM BICARBONATE TAB 650 MG TAB PO SCH (08:29)
[2021-08-11] MEDS: amLODIPine 5 MG TAB PO SCH (08:29)
[2021-08-11] MEDS: FOLIC ACID 1 MG TAB PO SCH (08:30)
[2021-08-11] MEDS: ASPIRIN 81 MG PO SCH (08:30)
[2021-08-11] MEDS: CEFEPIME 1 GM in SODIUM CHLORIDE 0.9% 50 ML IVPB SCH ×2 (08:31→22:04)
[2021-08-11] MEDS: FERROUS SULFATE 325 MG TAB PO SCH (08:31)
[2021-08-11] MEDS: HEPARIN SODIUM,PORCINE/PF 5,000 UNIT/0.5 ML SYRINGE SQ SCH ×3 (08:31→23:40)
[2021-08-11] MEDS: IPRATROPIUM-ALBUTEROL 3 ML NEB INHALATION SCH ×4 (08:49→19:36)
[2021-08-11 08:56] LABS: Polychromasia Present
--- NOTE | 2021-08-11 08:56 | P.PN ---
Subjective Patient is seen in follow-up for acute kidney injury on chronic kidney disease. Renal function stable. Good urine output. Denies chest pain. On 3 L nasal cannula. Oral intake fair. Hemodynamically stable. Vital signs are stable. General: Awake and alert. No acute distress. HEENT: Head exam is unremarkable. LUNGS: Chest tubes noted. Breath sounds decreased. HEART: Rate and Rhythm are regular. ABDOMEN: Soft, no distention. EXTREMITITES: Trace edema. Objective - Vital Signs Vital signs: Vital Signs Temp 98.4 F 08/10/21 20:00 Pulse 60 08/11/21 07:00 Resp 18 08/11/21 07:00 BP 130/69 08/11/21 07:00 Pulse Ox 90 L 08/11/21 07:00 Intake & Output 08/10/21 08/11/21 08/11/21 18:59 06:59 18:59 Intake Total 1370 290 Output Total 1030 665 300 Balance 340 -375 -300 Weight 73.3 kg Intake: IV 50 50 Cefepime 1 gm In Sodium 50 50 Chloride 0.9% 50 ml @ 12. 5 mls/hr IVPB Q12HR [facility] Rx#:[id number] Oral 1320 240 Output: Chest Tube Drainage 280 265 L pleural 90 180 Right Posterior Chest 190 85 Urine 750 400 300 Other: Voiding Method Toilet Toilet Urinal Urinal # Voids 1 # Bowel Movements 1 1 ABP, PAP, CO, CI - Last Documented Arterial Blood Pressure 119/35 Pulmonary Artery Pressure 35/28 Cardiac Output 5 Cardiac Index 2.7 - Labs CBC & Chem 7: 08/11/21 07:33 08/11/21 07:33 Labs: Abnormal Lab Results - Last 24 Hours (Table) 08/10/21 08/10/21 08/10/21 Range/Units 05:45 11:15 16:46 WBC (3.8-10.6) k/uL RBC (4.30-5.90) m/uL Hgb (13.0-17.5) gm/dL Hct (39.0-53.0) % MCV (80.0-100.0) fL MCHC (31.0-37.0) g/dL RDW (11.5-15.5) % Neutrophils # (Manual) 14.81 H (1.3-7.7) k/uL Lymphocytes # (Manual) 0.32 L (1.0-4.8) k/uL Macrocytosis PT (9.0-12.0) sec INR (<1.2) Sodium (137-145) mmol/L BUN (9-20) mg/dL Creatinine (0.66-1.25) mg/dL Glucose (74-99) mg/dL POC Glucose (mg/dL) 189 H 202 H (75-99) mg/dL Calcium (8.4-10.2) mg/dL 08/10/21 08/11/21 08/11/21 Range/Units 20:25 06:43 07:33 WBC 16.3 H (3.8-10.6) k/uL RBC 2.87 L (4.30-5.90) m/uL Hgb 8.9 L (13.0-17.5) gm/dL Hct 29.9 L (39.0-53.0) % MCV 103.9 H (80.0-100.0) fL MCHC 29.6 L (31.0-37.0) g/dL RDW 21.7 H (11.5-15.5) % Neutrophils # (Manual) (1.3-7.7) k/uL Lymphocytes # (Manual) (1.0-4.8) k/uL Macrocytosis Marked A PT (9.0-12.0) sec INR (<1.2) Sodium (137-145) mmol/L BUN (9-20) mg/dL Creatinine (0.66-1.25) mg/dL Glucose (74-99) mg/dL POC Glucose (mg/dL) 134 H 138 H (75-99) mg/dL Calcium (8.4-10.2) mg/dL 08/11/21 08/11/21 Range/Units 07:33 07:33 WBC (3.8-10.6) k/uL RBC (4.30-5.90) m/uL Hgb (13.0-17.5) gm/dL Hct (39.0-53.0) % MCV (80.0-100.0) fL MCHC (31.0-37.0) g/dL RDW (11.5-15.5) % Neutrophils # (Manual) (1.3-7.7) k/uL Lymphocytes # (Manual) (1.0-4.8) k/uL Macrocytosis PT 14.4 H (9.0-12.0) sec INR 1.4 H (<1.2) Sodium 134 L (137-145) mmol/L BUN 119 H* (9-20) mg/dL Creatinine 2.63 H (0.66-1.25) mg/dL Glucose 124 H (74-99) mg/dL POC Glucose (mg/dL) (75-99) mg/dL Calcium 8.2 L (8.4-10.2) mg/dL Microbiology - Last 24 Hours (Table) 08/06/21 16:58 Blood Culture - Preliminary Blood No Growth after 96 hours 08/06/21 17:04 Blood Culture - Preliminary Blood No Growth after 96 hours Assessment and Plan Plan: Assessment: 1. Acute kidney injury secondary to ATN secondary to hemodynamics and acute b lood loss anemia. Creatinine on little worse at 2.72 today. Nonoliguric. Elevated BUN secondary to acute kidney injury and diuresis. No active bleeding. Not on steroids. 2. Chronic kidney disease stage IIIB with baseline creatinine near 1.6-1.7. 3. Coronary artery disease status post CABG with mitral valve replacement and tricuspid valve repair. 4. Acute blood loss anemia postoperatively status post blood transfusion. On Aranesp. No active bleeding. 5. Mild volume overload. 6. Chronic kidney disease mineral bone disease maintained on PhosLo. Phosphorus 5.5 dated 08/09/2021. 7. Metabolic acidosis secondary to acute kidney injury. On oral bicarbonate. 8. Hypertension with chronic kidney disease. Stable. 9. Sputum culture positive for Klebsiella. On antibiotics. Plan: Add Bumex 1 mg orally daily. Encouraged oral intake. Continue to monitor renal function and urine output.
[2021-08-11] MEDS: MAG HYDROX/AL HYDROX/SIMETH 30 ML, LIDOCAINE VISCOUS 2% 30 ML, NYSTATIN 100,000 UNIT/ML... PO SCH ×9 (09:00→22:07)
--- NOTE | 2021-08-11 11:21 | P.PN ---
Subjective Progress Note Date: 08/11/21 Principal diagnosis: Postoperative day #14, status post mitral valve replacement, tricuspid valve repair and coronary artery bypass grafting times one reverse saphenous vein graft to obtuse marginal artery This is an 81-year-old white male seen today on follow-up,08/11/2021, patient remains in the ICU, he is now on 4 L nasal cannula, seems to be doing fairly well considering his multiple medical problems continues to have left-sided chest tube in place and a Pleurx catheter on the right side. Draining about 100 mL of serosanguineous fluid in each overnight. Remains empirically on Zosyn. Remains on Zosyn for Klebsiella pneumonia infection, this was cultured from the sputum. Remains in controlled atrial fibrillation. However the patient is very comfortable, and does not seem to be in any distress. He does have intermittent episodes of confusion according to the nurse, but when I saw him today he seems to be quite reasonable. And did not seem to be confused. Chest x-ray showed mostly pleural parenchymal density in the right midlung most likely related to chronic loculated right-sided pleural effusion. Objective - Vital Signs Vital signs: Vital Signs Temp 98.4 F 08/10/21 20:00 Pulse 66 08/11/21 09:02 Resp 18 08/11/21 07:00 BP 130/69 08/11/21 07:00 Pulse Ox 90 L 08/11/21 07:00 Intake & Output 08/10/21 08/11/21 08/11/21 18:59 06:59 18:59 Intake Total 1370 290 Output Total 1030 665 300 Balance 340 -375 -300 Weight 73.3 kg Intake: IV 50 50 Cefepime 1 gm In Sodium 50 50 Chloride 0.9% 50 ml @ 12. 5 mls/hr IVPB Q12HR [facility] Rx#:[id number] Oral 1320 240 Output: Chest Tube Drainage 280 265 L pleural 90 180 Right Posterior Chest 190 85 Urine 750 400 300 Other: Voiding Method Toilet Toilet Urinal Urinal # Voids 1 # Bowel Movements 1 1 ABP, PAP, CO, CI - Last Documented Arterial Blood Pressure 119/35 Pulmonary Artery Pressure 35/28 Cardiac Output 5 Cardiac Index 2.7 - Exam Physical Exam: Revealed an 81-year-old white male on 4 L nasal cannula, in no distress. Head: Atraumatic, normocephalic. HEENT:[Neck is supple.] [No neck masses.] [No thyromegaly.] [No JVD.] Chest: [Symmetrical chest expansion, fine crackles at the bases. Bilateral chest tubes noted, there is a Pleurx catheter on the right side, and a left sided chest tube is noted. Cardiac Exam: Irregular irregular rhythm. [Normal S1 and S2, no S3 gallop, 2/6 systolic murmur thought the precordium. Abdomen: [Soft, nontender, no megaly, no rebound, no guarding, normal bowel sounds.] Extremities: [No clubbing, no edema, no cyanosis.] Neurological Exam: [No focal neurologic deficit.] No gross focal neurologic deficits, intermittently confused according to the nurses Psychiatric: Normal mood, affect and normal mental status examination. Skin: No rashes. - Labs CBC & Chem 7: 08/11/21 07:33 08/11/21 07:33 Labs: Abnormal Lab Results - Last 24 Hours (Table) 08/10/21 08/10/21 08/10/21 Range/Units 11:15 16:46 20:25 WBC (3.8-10.6) k/uL RBC (4.30-5.90) m/uL Hgb (13.0-17.5) gm/dL Hct (39.0-53.0) % MCV (80.0-100.0) fL MCHC (31.0-37.0) g/dL RDW (11.5-15.5) % Neutrophils # (1.3-7.7) k/uL Lymphocytes # (1.0-4.8) k/uL Macrocytosis PT (9.0-12.0) sec INR (<1.2) Sodium (137-145) mmol/L BUN (9-20) mg/dL Creatinine (0.66-1.25) mg/dL Glucose (74-99) mg/dL POC Glucose (mg/dL) 189 H 202 H 134 H (75-99) mg/dL Calcium (8.4-10.2) mg/dL 08/11/21 08/11/21 08/11/21 Range/Units 06:43 07:33 07:33 WBC 16.3 H (3.8-10.6) k/uL RBC 2.87 L (4.30-5.90) m/uL Hgb 8.9 L (13.0-17.5) gm/dL Hct 29.9 L (39.0-53.0) % MCV 103.9 H (80.0-100.0) fL MCHC 29.6 L (31.0-37.0) g/dL RDW 21.7 H (11.5-15.5) % Neutrophils # 15.0 H (1.3-7.7) k/uL Lymphocytes # 0.3 L (1.0-4.8) k/uL Macrocytosis Marked A PT 14.4 H (9.0-12.0) sec INR 1.4 H (<1.2) Sodium (137-145) mmol/L BUN (9-20) mg/dL Creatinine (0.66-1.25) mg/dL Glucose (74-99) mg/dL POC Glucose (mg/dL) 138 H (75-99) mg/dL Calcium (8.4-10.2) mg/dL 08/11/21 Range/Units 07:33 WBC (3.8-10.6) k/uL RBC (4.30-5.90) m/uL Hgb (13.0-17.5) gm/dL Hct (39.0-53.0) % MCV (80.0-100.0) fL MCHC (31.0-37.0) g/dL RDW (11.5-15.5) % Neutrophils # (1.3-7.7) k/uL Lymphocytes # (1.0-4.8) k/uL Macrocytosis PT (9.0-12.0) sec INR (<1.2) Sodium 134 L (137-145) mmol/L BUN 119 H* (9-20) mg/dL Creatinine 2.63 H (0.66-1.25) mg/dL Glucose 124 H (74-99) mg/dL POC Glucose (mg/dL) (75-99) mg/dL Calcium 8.2 L (8.4-10.2) mg/dL Microbiology - Last 24 Hours (Table) 08/06/21 16:58 Blood Culture - Preliminary Blood No Growth after 96 hours 08/06/21 17:04 Blood Culture - Preliminary Blood No Growth after 96 hours Assessment and Plan Assessment: Impression: Mitral valve regurgitation, status post mitral valve replacement Tricuspid valve regurgitation, status post tricuspid valve repair Coronary artery disease, status post 1 vessel CABG Benign essential hypertension Chronic atrial fibrillation History of sick sinus syndrome and previous pacemaker placement in 2017 Chronic systolic congestive heart failure Atrial septal defect post closure Acute on chronic renal failure, baseline creatinine 1.6-1.7 Obstructive sleep apnea syndrome Chronic and recurrent right-sided pleural effusion requiring multiple thoracentesis procedures and now he continues to have a pigtail catheter in place. Postoperative acute blood loss anemia and thrombocytopenia, expected Positive sputum for Klebsiella pneumonia, suspect Klebsiella pneumonia tracheobronchitis, on cefepime Recommendation: Continue present supportive care measures Continue cefepime. Continue to monitor in the ICU for now. Continue chest tubes in place including Pleurx catheter in place. Continue incentive spirometry Ambulate May eventually require rehabilitation placement. We'll continue to follow Time with Patient: Less than 30
[2021-08-11 11:58] LABS: Glucose,Whole Blood 228 mg/dL (75-99)
[2021-08-11] MEDS: DARBEPOETIN ALFA 60 MCG/0.3 ML SYRINGE SQ SCH (12:05)
[2021-08-11] MEDS: BUMETANIDE 1 MG TAB PO SCH (12:05)
--- NOTE | 2021-08-11 13:20 | PN ---
PROGRESS NOTE This is an 81-year-old gentleman with chronic atrial fibrillation, CAD, prior multi- vessel PCI, who underwent mitral valve replacement with a tissue valve, tricuspid valve repair and a single vein graft to circumflex. Post cardiac surgery he is recovering slowly. He has been extubated. His underlying rhythm is sinus with a backup ventricular pacemaker. He is hemodynamically stable. LV function is well preserved. He still has moderate pulmonary hypertension with tricuspid regurgitation, but mitral valve appears to be quite stable. He is after some motivation able to do some walking today. I am suggesting that we continue his current medications and add a small dose of beta shila if the heart rate goes more than 70. He is hemodynamically stable. LV systolic function is actually fairly well preserved with moderate pulmonary hypertension. Physical examination revealed JVD of 1 cm. No carotid bruit. S1-S2 heard normally. There is a systolic murmur audible at left lower sternal border. Lungs reveal that there are both chest tubes. Air entry is somewhat diminished. Abdomen is soft. Lower extremities reveal diminished pulses. RECOMMENDATIONS: Continue incentive spirometry, pulmonary toilet and gradual ambulation with help and motivation. His PT/INR is still suboptimal, but this is being adjusted by Cardiac Surgery. I will add a small dose of beta shila if heart rate goes more than 70. Prognosis remains guarded. MMODL / IJN: [id number] /
[2021-08-11 16:22] LABS: Glucose,Whole Blood 151 mg/dL (75-99)
[2021-08-11] MEDS ORDERED: WARFARIN 2 MG TAB PO ONE (18:00)
[2021-08-11 21:44] LABS: Glucose,Whole Blood 186 mg/dL (75-99)
[2021-08-11] MEDS: MELATONIN 3 MG TABLET PO SCH (22:03)
[2021-08-11] MEDS: CALCIUM ACETATE 667 MG TAB PO SCH (22:04)
[2021-08-11] MEDS: METOPROLOL TARTRATE 12.5 MG TAB PO SCH (22:06)
[2021-08-11] MEDS: ATORVASTATIN 40 MG TAB PO SCH (22:06)
[2021-08-12 06:55] LABS: Glucose,Whole Blood 138 mg/dL (75-99)
[2021-08-12] MEDS: INSULIN ASPART (NovoLOG) 100 UNIT/ML VIAL SQ SCH ×4 (06:56→20:08)
[2021-08-12] MEDS: PANTOPRAZOLE 40 MG TABLET PO SCH (06:56)
--- NOTE | 2021-08-12 08:11 | XR ---
EXAMINATION TYPE: XR chest 1V portable DATE OF EXAM: 08/12/2021 Comparison: 08/11/2021 Clinical History: 81-year-old male effusion Findings: Heart is moderately enlarged. Coronary stents are present. Median sternotomy wires and post-CABG clip s in the mediastinum. Left anterior chest wall pacemaker generator with right ventricular lead. Inter stitial opacities and patchy mid and lower lung opacities, right greater than left are redemonstrated . Trace effusions remain low with a pigtail pleural catheter at the right base, effusion smaller at t he right base. Left-sided chest tube is present. No sizable pneumothorax on either side. Impression: 1. Moderate cardiomegaly, interstitial changes, trace pleural effusions. Correlate for CHF with inter stitial pulmonary edema. 2. Opacities in the mid and lower lungs, right greater than left, also persist and could represent co nfluent areas of pulmonary edema versus infiltrates. Clinically correlate. 3. Left-sided chest tube. Right-sided basilar pigtail pleural catheter. Trace effusion on the right i s smaller. No sizable pneumothorax seen on either side.
[2021-08-12 08:25] LABS: Anisocytosis Moderate; Basophils % (A) 0 %; Calcium 8.2 mg/dL (8.4-10.2); Eosinophils # (A) 0.1 k/uL (0-0.7); Eosinophils % (A) 1 %; HCT 27.9 % (39.0-53.0); HGB 8.5 gm/dL (13.0-17.5); Hypochromasia Marked; Lymphocytes # (A) 0.3 k/uL (1.0-4.8); Lymphocytes % (A) 3 %; MCH 31.9 pg (25.0-35.0); MCHC 30.4 g/dL (31.0-37.0); MCV 104.9 fL (80.0-100.0); Mean Platelet Volume 8.8; Monocytes # (A) 0.7 k/uL (0-1.0); Monocytes % (A) 6 %; Neutrophils # (A) 11.8 k/uL (1.3-7.7); Neutrophils % (A) 90 %; Platelet Count 261 k/uL (150-450); Poikilocytosis Moderate; Potassium 4.8 mmol/L (3.5-5.1); RBC 2.66 m/uL (4.30-5.90); RDW 21.5 % (11.5-15.5); WBC 13.2 k/uL (3.8-10.6)
[2021-08-12 08:28] LABS: Macrocytosis Marked
[2021-08-12] MEDS: CEFEPIME 1 GM in SODIUM CHLORIDE 0.9% 50 ML IVPB SCH ×2 (08:33→20:08)
[2021-08-12] MEDS: HEPARIN SODIUM,PORCINE/PF 5,000 UNIT/0.5 ML SYRINGE SQ SCH ×2 (08:34→16:58)
[2021-08-12] MEDS: MAG HYDROX/AL HYDROX/SIMETH 30 ML, LIDOCAINE VISCOUS 2% 30 ML, NYSTATIN 100,000 UNIT/ML... PO SCH ×9 (08:34→20:10)
[2021-08-12] MEDS: BUMETANIDE 1 MG TAB PO SCH (08:34)
[2021-08-12] MEDS: FOLIC ACID 1 MG TAB PO SCH (08:35)
[2021-08-12] MEDS: FERROUS SULFATE 325 MG TAB PO SCH (08:35)
[2021-08-12] MEDS: ASPIRIN 81 MG PO SCH (08:35)
[2021-08-12] MEDS: SODIUM BICARBONATE TAB 650 MG TAB PO SCH (08:35)
[2021-08-12] MEDS: amLODIPine 5 MG TAB PO SCH ×2 (08:36→10:17)
[2021-08-12] MEDS: ASCORBIC ACID 500 MG TAB PO SCH (08:36)
[2021-08-12] MEDS: allopurinoL 100 MG TAB PO SCH (08:54)
[2021-08-12] MEDS: IPRATROPIUM-ALBUTEROL 3 ML NEB INHALATION SCH ×4 (09:02→19:00)
--- NOTE | 2021-08-12 09:23 | P.PN ---
Subjective Patient is seen in follow-up for acute kidney injury on chronic kidney disease. Renal function slightly worse. Good urine output. Denies chest pain. On 6 L nasal cannula. Gets dyspneic with ambulation. Oral intake fair. Blood pressure on the lower side this morning. Lopressor held. Vital signs are stable. Blood pressure on the lower side. General: Awake and alert. No acute distress. HEENT: Head exam is unremarkable. LUNGS: Chest tubes noted. Breath sounds decreased. HEART: Rate and Rhythm are regular. ABDOMEN: Soft, no distention. EXTREMITITES: Trace edema. Objective - Vital Signs Vital signs: Vital Signs Temp 97.6 F 08/12/21 08:00 Pulse 66 08/12/21 09:14 Resp 30 H 08/12/21 09:00 BP 91/58 08/12/21 09:00 Pulse Ox 93 L 08/12/21 09:00 Intake & Output 08/11/21 08/12/21 08/12/21 18:59 06:59 18:59 Intake Total 1420 810.0 12.5 Output Total 1250 1105 Balance 170 -295.0 12.5 Weight 73.2 kg Intake: IV 100 50.0 12.5 Cefepime 1 gm In Sodium 100 50.0 12.5 Chloride 0.9% 50 ml @ 12. 5 mls/hr IVPB Q12HR [facility] Rx#:[id number] Oral 1320 760 Output: Chest Tube Drainage 180 L pleural 80 Right Posterior Chest 100 Drainage [address] 140 70 Right Posterior 260 130 Urine 850 725 Other: Voiding Method Toilet Toilet Urinal # Voids 1 1 # Bowel Movements 1 1 ABP, PAP, CO, CI - Last Documented Arterial Blood Pressure 119/35 Pulmonary Artery Pressure 35/28 Cardiac Output 5 Cardiac Index 2.7 - Labs CBC & Chem 7: 08/12/21 07:18 08/12/21 07:18 Labs: Abnormal Lab Results - Last 24 Hours (Table) 08/11/21 08/11/21 08/11/21 Range/Units 11:56 16:21 21:42 WBC (3.8-10.6) k/uL RBC (4.30-5.90) m/uL Hgb (13.0-17.5) gm/dL Hct (39.0-53.0) % MCV (80.0-100.0) fL MCHC (31.0-37.0) g/dL RDW (11.5-15.5) % Neutrophils # (1.3-7.7) k/uL Lymphocytes # (1.0-4.8) k/uL Macrocytosis Sodium (137-145) mmol/L Carbon Dioxide (22-30) mmol/L BUN (9-20) mg/dL Creatinine (0.66-1.25) mg/dL Glucose (74-99) mg/dL POC Glucose (mg/dL) 228 H 151 H 186 H (75-99) mg/dL Calcium (8.4-10.2) mg/dL 08/12/21 08/12/21 08/12/21 Range/Units 06:54 07:18 07:18 WBC 13.2 H (3.8-10.6) k/uL RBC 2.66 L (4.30-5.90) m/uL Hgb 8.5 L (13.0-17.5) gm/dL Hct 27.9 L (39.0-53.0) % MCV 104.9 H (80.0-100.0) fL MCHC 30.4 L (31.0-37.0) g/dL RDW 21.5 H (11.5-15.5) % Neutrophils # 11.8 H (1.3-7.7) k/uL Lymphocytes # 0.3 L (1.0-4.8) k/uL Macrocytosis Marked A Sodium 133 L (137-145) mmol/L Carbon Dioxide 21 L (22-30) mmol/L BUN 119 H* (9-20) mg/dL Creatinine 2.80 H (0.66-1.25) mg/dL Glucose 130 H (74-99) mg/dL POC Glucose (mg/dL) 138 H (75-99) mg/dL Calcium 8.2 L (8.4-10.2) mg/dL Microbiology - Last 24 Hours (Table) 08/06/21 17:04 Blood Culture - Preliminary Blood No Growth after 120 hours 08/06/21 16:58 Blood Culture - Preliminary Blood No Growth after 120 hours Assessment and Plan Plan: Assessment: 1. Acute kidney injury secondary to ATN secondary to hemodynamics and acute blood loss anemia. Creatinine stable at 2.8. Nonoliguric. Elevated BUN secondary to acute kidney injury and diuresis. No active bleeding. Not on steroids. 2. Chronic kidney disease stage IIIB with baseline creatinine near 1.6-1.7. 3. Coronary artery disease status post CABG with mitral valve replacement and tricuspid valve repair. 4. Acute blood loss anemia postoperatively status post blood transfusion. On Aranesp. No active bleeding. 5. Volume overload. 6. Chronic kidney disease mineral bone disease maintained on PhosLo. Phosphorus 5.5 dated 08/09/2021. 7. Metabolic acidosis secondary to acute kidney injury. On oral bicarbonate. 8. Hypertension with chronic kidney disease. Stable. 9. Sputum culture positive for Klebsiella. On antibiotics. Plan: Maintain Bumex 1 mg orally daily. Encouraged oral intake. Continue to monitor renal function and urine output. Check iron studies. Hold amlodipine for systolic blood pressure less than 120. Lopressor also held this morning. Check a.m. cortisol level
--- NOTE | 2021-08-12 09:42 | P.PN ---
Subjective Progress Note Date: 08/12/21 Principal diagnosis: Mitral valve regurgitation, tricuspid valve regurgitation, and coronary artery disease. Past medical history significant for coronary artery disease with prev ious myocardial infarction and PCI, hypertension, hyperlipidemia, chronic persistent atrial fibrillation on Coumadin for anticoagulation as an outpatient, status post cardioversion, sick sinus syndrome, status post [facility] [facility] permanent pacemaker placement in 2017, chronic systolic heart failure, atrial septal defect status post closure, history of MitraClip in 2019, chronic renal insufficiency, remote history of tobacco dependence, restrictive lung disease, obstructive sleep apnea, recurrent right pleural effusions with history of 4 previous thoracentesis, remote history of pneumonia, and a family history of premature coronary artery disease. Preoperative nasal screening positive for MSSA, treated. POD #15 mitral valve replacement with 31 mm Mosaic porcine valve prosthesis, tricuspid valve repair with 30 mm MC3 band, coronary artery bypass grafting 1 with reverse greater saphenous vein graft to the obtuse marginal coronary artery, endovascular vein harvest of the left greater saphenous vein, epi-aortic ultrasound, closure of the left atrial appendage, closure of atrial septal defect. Postoperative acute blood loss anemia and thrombocytopenia, expected given hemodilution and cardiopulmonary bypass pump. Coagulopathy, unexpected, last coumadin dose was on 07/22/21. Right pleural effusion, expected due to his history of preoperative right pleural effusion with history of 4 previous thoracentesis. Status post placement of right-sided pigtail catheter by interventional radiology. Leukocytosis, afebrile, sputum positive for Klebsiella pneumoniae. Altered mental status after surgery due to delirium from lack of sleep, resolved The patient was seen in follow-up today 08/12/2021 at his bedside in the intensive care unit. Currently sitting up to the bedside chair, is awake, alert and oriented 3 and is in no acute distress. Denies any complaints of surgical type pain or shortness of breath with sitting. He does complain of shortness of breath with activity and is complaining of a sore mouth. Oxygen saturation are 96% on 6 L high flow nasal cannula and he is achieving 1000 mL on his incentive spirometry with encouragement. Laboratory results this morning show a WBC count trending down of 13.2, hemoglobin 8.5, hematocrit 27.9, platelets 261, sodium 133, potassium 4.8, BUN 119 and creatinine 2.80. He was started on Bumex 1 mg by mouth daily by nephrology yesterday. Left pleural chest tube remains in place to low continuous wall suction -20 cm H2O. No air leak is present. Draining thin serosanguineous drainage with 30 mL output in the last 8 hours and 200 mL output in the last 24 hours. Right pigtail catheter tube to low continuous wall suction -20 cm H2O. No air leak is present. Draining thin serosanguineous drainage with 50 mL output in the last 8 hours and 450 mL output in the last 24 hours. Bedside telemetry showing atrial fibrillation with occasional paced rhythm heart rate in the 60's. He remains afebrile the last 24 hours and continues on cefepime 1 g IV piggyback every 12 hours for a sputum positive for Klebsiella pneumoniae. Chest x-ray reviewed. The patient reports he has been up ambulating in the intensive care unit hallway with standby assistance from nursing and therapy staff. Objective - Vital Signs Vital signs: Vital Signs Temp 97.6 F 08/12/21 08:00 Pulse 65 08/12/21 09:02 Resp 30 H 08/12/21 09:00 BP 91/58 08/12/21 09:00 Pulse Ox 93 L 08/12/21 09:00 Intake & Output 08/11/21 08/12/21 08/12/21 18:59 06:59 18:59 Intake Total 1420 810.0 12.5 Output Total 1250 1105 Balance 170 -295.0 12.5 Weight 73.2 kg Intake: IV 100 50.0 12.5 Cefepime 1 gm In Sodium 100 50.0 12.5 Chloride 0.9% 50 ml @ 12. 5 mls/hr IVPB Q12HR [facility] Rx#:[id number] Oral 1320 760 Output: Chest Tube Drainage 180 L pleural 80 Right Posterior Chest 100 Drainage [address] 140 70 Right Posterior 260 130 Urine 850 725 Other: Voiding Method Toilet Toilet Urinal # Voids 1 1 # Bowel Movements 1 1 ABP, PAP, CO, CI - Last Documented Arterial Blood Pressure 119/35 Pulmonary Artery Pressure 35/28 Cardiac Output 5 Cardiac Index 2.7 - Exam CONSTITUTIONAL: Sitting up to the bedside chair in the intensive care unit, appears comfortable, cooperative, and is in no apparent acute distress. HEENT: Neck is supple, no JVD, no lymphadenopathy. RESPIRATORY: Lungs sounds with few scattered rhonchi throughout, diminished to his bilateral bases. Respirations are symmetrical and nonlabored. Currently on 6 L high flow nasal cannula, oxygen saturations 96%. Able to achieve 1000 mL on his incentive spirometry. Strong cough. CARDIOVASCULAR: Irregular rhythm and controlled rate. S1 and S2 present, negative for S3, gallop or murmur. Sternum is stable. Palpable peripheral pulses bilaterally. No calf pain or tenderness noted. Heart hugger in place with patient demonstrating appropriate use with encouragement. Knee-high SUMI hose and sequential compression devices in place to his bilateral lower extremities. Bedside telemetry showing atrial fibrillation with occasional paced rhythm heart rate in the 60s. Trace edema to his bilateral lower extremities. GASTROINTESTINAL: Abdomen soft, nontender, and slightly distended. Active bowel sounds present 4 quadrants. Tolerating diet. No guarding or rigidity. Bowel movement today 08/12/2021. GENITOURINARY: Continues to void. 275 mL of urine output in the last 8 hours. INTEGUMENTARY: Skin is warm and dry with no evidence of clubbing or cyanosis. Midline sternal incision clean dry and well approximated, covered with dry intact dressing. Left lower extremity EVH site well approximated without redness or drainage. Dressing to his right pleural chest tube with some scant serous draining some surrounding his tube. NEUROLOGIC: Cranial nerves II through XII intact. No focal deficits. MUSKULOSKELETAL: Able to move all extremities, strength equal bilaterally, generalized weakness. PSYCHIATRIC: Alert and oriented 3, appropriate affect. INVASIVE LINES AND TUBES: Right pleural pigtail catheter is in place to low continuous wall suction at -20 cm H2O. No air leak is present. Draining thin serosanguineous drainage with 50 mL output in the last 8 hours and 450 mL output in the last 24 hours. Left pleural chest tube in place to low continuous wall suction -20 cm H2O. No air leak is present. Draining thin serosanguineous drainage with 30 mL output in the last 8 hours and 200 mL output in the last 24 hours. - Allied health notes Allied health notes reviewed: nursing - Labs CBC & Chem 7: 08/12/21 07:18 08/12/21 07:18 Labs: Abnormal Lab Results - Last 24 Hours (Table) 08/11/21 08/11/21 08/11/21 Range/Units 11:56 16:21 21:42 WBC (3.8-10.6) k/uL RBC (4.30-5.90) m/uL Hgb (13.0-17.5) gm/dL Hct (39.0-53.0) % MCV (80.0-100.0) fL MCHC (31.0-37.0) g/dL RDW (11.5-15.5) % Neutrophils # (1.3-7.7) k/uL Lymphocytes # (1.0-4.8) k/uL Macrocytosis Sodium (137-145) mmol/L Carbon Dioxide (22-30) mmol/L BUN (9-20) mg/dL Creatinine (0.66-1.25) mg/dL Glucose (74-99) mg/dL POC Glucose (mg/dL) 228 H 151 H 186 H (75-99) mg/dL Calcium (8.4-10.2) mg/dL 08/12/21 08/12/21 08/12/21 Range/Units 06:54 07:18 07:18 WBC 13.2 H (3.8-10.6) k/uL RBC 2.66 L (4.30-5.90) m/uL Hgb 8.5 L (13.0-17.5) gm/dL Hct 27.9 L (39.0-53.0) % MCV 104.9 H (80.0-100.0) fL MCHC 30.4 L (31.0-37.0) g/dL RDW 21.5 H (11.5-15.5) % Neutrophils # 11.8 H (1.3-7.7) k/uL Lymphocytes # 0.3 L (1.0-4.8) k/uL Macrocytosis Marked A Sodium 133 L (137-145) mmol/L Carbon Dioxide 21 L (22-30) mmol/L BUN 119 H* (9-20) mg/dL Creatinine 2.80 H (0.66-1.25) mg/dL Glucose 130 H (74-99) mg/dL POC Glucose (mg/dL) 138 H (75-99) mg/dL Calcium 8.2 L (8.4-10.2) mg/dL Microbiology - Last 24 Hours (Table) 08/06/21 17:04 Blood Culture - Preliminary Blood No Growth after 120 hours 08/06/21 16:58 Blood Culture - Preliminary Blood No Growth after 120 hours - Imaging and Cardiology Chest x-ray: report reviewed, image reviewed Assessment and Plan Assessment: 1. Mitral valve regurgitation, history of MitraClip in 2019, status post post mitral valve replacement 2. Tricuspid valve regurgitation, status post tricuspid valve repair 3. Coronary artery disease with previous myocardial infarction and PCI, status post 1 vessel CABG 4. History of hypertension, currently hypotensive on levo and dopamine 5. Chronic atrial fibrillation on Coumadin for anticoagulation status post cardioversion, status post closure of the left atrial appendage 6. Sick sinus syndrome status post [facility] [facility] permanent pacemaker placement in 2017 7. Chronic systolic heart failure 8. Atrial septal defect status post closure 9. Chronic kidney disease stage IIIB with a baseline creatinine of 1.6-1.7 10. Previous tobacco dependence 11. Severe restrictive lung disease, preoperative FEV1 47% of predicted 12. Recurrent right-sided pleural effusion, patient had right sided thoracentesis twice in 2019 and twice in 2020, status post right chest pigtail catheter placement by interventional radiology 13. Obstructive sleep apnea 14. Remote history of pneumonia 15. Family history of premature coronary artery disease 16. Postoperative acute blood loss anemia and thrombocytopenia, expected 17. Coagulopathy, unexpected and resolved 18. Leukocytosis, elevated pro-calcitonin, sputum culture positive for Klebsiella pneumoniae Plan: 1. Continue low-dose aspirin, statin, metoprolol tartrate and norvasc. 2. Continue Coumadin, will monitor daily PT/INR. 3. Wean O2 as tolerated. Encourage incentive spirometry use 10 times every hour while awake. Bronchodilators per pulmonology. 4. Increase activity as tolerated. PT/OT/cardiac rehab following. 5. Will monitor daily labs and chest x-rays. Antibiotic management per pulmonology. Diuresis management per nephrology. 6. GI/DVT prophylaxis. 7. Insulin management per primary care service. Patient is not diabetic, preoperative hemoglobin A1c 5.8% 8. Pain control per current medication regimen. Avoid narcotics. 9. Continue left pleural chest tube and right pigtail catheter. May need right sided pleurx before discharge. Change dressing to right sided pigtail catheter. 10. Strict accurate intake and output. Daily weights. 11. Encourage oral intake, encourage supplements to improve nutrition. Continue Kools solution oral rinse for complaints of sore mouth. 12. Discharge planning in progress. Anticipate discharge to [facility] once able to remove chest tubes. 13. More recommendations to follow based on patient's clinical course. Time with Patient: Greater than 30
--- NOTE | 2021-08-12 10:11 | P.PN ---
Subjective Progress Note Date: 08/12/21 The patient is seen today 08/12/2021 in follow-up in the intensive care unit. He is postoperative day #15 above mitral valve replacement, tricuspid valve repair and coronary artery bypass grafting times one. He had had issues with recurrent right-sided pleural effusion and is status post right-sided pigtail catheter in place. Proximal main 400 ML's of serosanguineous fluid drained overnight. Left-sided chest tube remains in place with an another 200 ML's of serosanguineous fluid drained. He is requiring 6 L of high flow nasal cannula to maintain O2 saturations in the 90s. Chest x-ray shows improvement in the pleural effusions. There is still bilateral opacities and some interstitial changes consistent with congestive heart failure. Moderate cardiomegaly. He is alert and oriented today. He still has complaints of a sore mouth. His appetite has been poor. Current cardiac rhythm is paced. Urine cultures revealed no growth. Blood cultures reveal no growth. Sputum culture from 10/2021 was positive for Klebsiella pneumoniae. White count 13.2. Hemoglobin 8.5. Platelets 261. Sodium 133. Potassium 4.8. Bicarb 21. BUN 119. Creatinine 2.80. Glucose 138. He is status post 2 units of packed red blood cells, 4 units of fresh frozen plasma and 2 units of platelets this admission. He is continued on nystatin swish and swallow, bronchodilators, heparin for DVT prophylaxis. Remains on Bumex. Currently in a -125 ML balance. Objective - Vital Signs Vital signs: Vital Signs Temp 97.6 F 08/12/21 08:00 Pulse 66 08/12/21 09:14 Resp 30 H 08/12/21 09:00 BP 91/58 08/12/21 09:00 Pulse Ox 93 L 08/12/21 09:00 Intake & Output 08/11/21 08/12/21 08/12/21 18:59 06:59 18:59 Intake Total 1420 810.0 12.5 Output Total 1250 1105 Balance 170 -295.0 12.5 Weight 73.2 kg Intake: IV 100 50.0 12.5 Cefepime 1 gm In Sodium 100 50.0 12.5 Chloride 0.9% 50 ml @ 12. 5 mls/hr IVPB Q12HR [facility] Rx#:[id number] Oral 1320 760 Output: Chest Tube Drainage 180 L pleural 80 Right Posterior Chest 100 Drainage [address] 140 70 Right Posterior 260 130 Urine 850 725 Other: Voiding Method Toilet Toilet Urinal # Voids 1 1 # Bowel Movements 1 1 ABP, PAP, CO, CI - Last Documented Arterial Blood Pressure 119/35 Pulmonary Artery Pressure 35/28 Cardiac Output 5 Cardiac Index 2.7 - Exam CONSTITUTIONAL: A very pleasant 81-year-old male patient, sitting up to the bedside chair in the intensive care unit, comfortable, cooperative, and is in no acute distress. HEENT: Neck is supple, no JVD, no lymphadenopathy. RESPIRATORY: Lungs sounds with bilateral scattered rhonchi, diminished bilateral bases, right greater than left. Respirations are symmetrical and nonlabored. Currently on 6 L high flow nasal cannula, oxygen saturations 93%. Able to achieve more than 1000 MLS on the incentive spirometer. CARDIOVASCULAR: Regular rhythm and rate. S1 and S2 present, negative for S3, gallop or murmur. Sternum is stable. Palpable peripheral pulses bilaterally. No calf pain or tenderness noted. Heart hugger in place with patient demonstrating appropriate use with encouragement. Knee-high SUMI hose and s equential compression devices in place to his bilateral lower extremities. Bedside telemetry showing paced rhythm at 60 BPM. GASTROINTESTINAL: Abdomen soft, nontender, distended. Active bowel sounds present 4 quadrants. Tolerating diet but poor appetite. No guarding or rigidity. Bowel movement 2 in the last 24 hours. The abdomen is slightly distended and tympanic at this point in time. GENITOURINARY: Continues to void. Urine output is adequate for now. INTEGUMENTARY: Skin is warm and dry with no evidence of clubbing or cyanosis. Midline sternal incision clean dry and well approximated, covered with dry intact dressing. Left lower extremity EVH site well approximated without redne ss or drainage. NEUROLOGIC: Cranial nerves II through XII intact. No focal deficits. MUSKULOSKELETAL: Able to move all extremities, strength equal bilaterally, generalized weakness. PSYCHIATRIC: Alert and oriented 3, appropriate affect. - Labs CBC & Chem 7: 08/12/21 07:18 08/12/21 07:18 Labs: Abnormal Lab Results - Last 24 Hours (Table) 08/11/21 08/11/21 08/11/21 Range/Units 11:56 16:21 21:42 WBC (3.8-10.6) k/uL RBC (4.30-5.90) m/uL Hgb (13.0-17.5) gm/dL Hct (39.0-53.0) % MCV (80.0-100.0) fL MCHC (31.0-37.0) g/dL RDW (11.5-15.5) % Neutrophils # (1.3-7.7) k/uL Lymphocytes # (1.0-4.8) k/uL Macrocytosis Sodium (137-145) mmol/L Carbon Dioxide (22-30) mmol/L BUN (9-20) mg/dL Creatinine (0.66-1.25) mg/dL Glucose (74-99) mg/dL POC Glucose (mg/dL) 228 H 151 H 186 H (75-99) mg/dL Calcium (8.4-10.2) mg/dL 08/12/21 08/12/21 08/12/21 Range/Units 06:54 07:18 07:18 WBC 13.2 H (3.8-10.6) k/uL RBC 2.66 L (4.30-5.90) m/uL Hgb 8.5 L (13.0-17.5) gm/dL Hct 27.9 L (39.0-53.0) % MCV 104.9 H (80.0-100.0) fL MCHC 30.4 L (31.0-37.0) g/dL RDW 21.5 H (11.5-15.5) % Neutrophils # 11.8 H (1.3-7.7) k/uL Lymphocytes # 0.3 L (1.0-4.8) k/uL Macrocytosis Marked A Sodium 133 L (137-145) mmol/L Carbon Dioxide 21 L (22-30) mmol/L BUN 119 H* (9-20) mg/dL Creatinine 2.80 H (0.66-1.25) mg/dL Glucose 130 H (74-99) mg/dL POC Glucose (mg/dL) 138 H (75-99) mg/dL Calcium 8.2 L (8.4-10.2) mg/dL Microbiology - Last 24 Hours (Table) 08/06/21 17:04 Blood Culture - Preliminary Blood No Growth after 120 hours 08/06/21 16:58 Blood Culture - Preliminary Blood No Growth after 120 hours Assessment and Plan Assessment: 1 Mitral valve regurgitation, status post mitral valve replacement, postoperative day #15 2 Tricuspid valve regurgitation, status post tricuspid valve repair, postoperative day #15 3 Coronary artery disease, status post 1 vessel CABG, postoperative day #15 4 Benign essential hypertension 5 Chronic atrial fibrillation 6 History of sick sinus syndrome and previous pacemaker placement in 2017 7 Chronic systolic congestive heart failure 8 Atrial septal defect post closure 9 Acute on chronic renal failure, baseline creatinine 1.6-1.7 10 Obstructive sleep apnea syndrome 11 Chronic and recurrent right-sided pleural effusion requiring multiple thoracentesis procedures and now he continues to have a pigtail catheter in place. 12 Postoperative acute blood loss anemia and thrombocytopenia, expected 13 Positive sputum for Klebsiella pneumonia, suspect Klebsiella pneumonia t racheobronchitis, on cefepime 14 Poor oral intake Plan: The patient was seen and evaluated Chest x-ray and labs reviewed Still with significant serosanguineous drainage out of the bilateral chest tubes Poor oral intake, may require NG tube/Dobbhoff Remains on cefepime, bronchodilators Continues to work well with the incentive spirometer Titrate down the FiO2 as tolerated Increase his activity as tolerated Nephrology is on the case I have personally seen and examined the patient, performed the documentation and the assessment and plan as written. Number of minutes spent on the visit: 10.
[2021-08-12 10:12] LABS: INR 1.7 (<1.2)
[2021-08-12] MEDS: METOPROLOL TARTRATE 12.5 MG TAB PO SCH ×2 (11:06→20:08)
[2021-08-12 11:38] LABS: Glucose,Whole Blood 173 mg/dL (75-99)
[2021-08-12] MEDS: SERTRALINE 50 MG TAB PO SCH (12:24)
--- NOTE | 2021-08-12 16:00 | PN ---
PROGRESS NOTE Mr. Mascorro is an 81-year-old gentleman who underwent mitral valve replacement with tissue valve and tricuspid valve repair and also single-vessel bypass. This morning he complains of feeling weak. He still has chest tubes on both sides. He is in underlying atrial fibrillation controlled rate with paced rhythm. He has done some walking but not much. Complains of fatigue and lack of energy. His nutrition is also being addressed. S1, S2 are normal. A short systolic murmur is noted. Lungs reveal diminished air entry. Abdomen is soft. Rest of physical examination unchanged. Plan is to continue current medications and continue incentive spirometry, pulmonary toilet and also gradual increase in activity. Patient seems more motivated today than yesterday. Prognosis remains guarded. MMODL / IJN: [id number] /
[2021-08-12 16:11] LABS: Glucose,Whole Blood 233 mg/dL (75-99)
[2021-08-12 18:08] LABS: % Iron Saturation 10.91 (15.00-50.00)
--- NOTE | 2021-08-12 18:54 | P.PN ---
Subjective Progress Note Date: 08/11/21 This is a 81-year-old male patient who is currently postop day 2 from mitral valve replacement, tricuspid valve repair and single-vessel bypass grafting SVG to obtuse marginal. Patient has a past medical history of valvular heart disease with symptoms including shortness of breath with exertion and unable to perform many of his activities of daily living. Additional medical history includes coronary artery disease with previous cardiac infarction and PCI, hypertension, chronic atrial fibrillation on Coumadin for and configuration status post cardioversion, sick sinus syndrome with [facility] permanent pacemaker placement 2016, chronic systolic heart failure, atrial septal defect status post closure with previous mitral clip in 2019 at [facility], chronic renal insufficiency, obstructive sleep apnea, reoccurring right-sided pleural effusions with previous thoracentesis 4. At this time patient is currently resting comfortably in the intensive care unit. Patient was successfully extubated per protocol currently on IV dopamine and Levophed. INR elevated at 6.5. hemoglobin 6.6. 1 unit PRBCs, 2 units of FFP have been ordered per surgical services INR recheck ordered for noon. Chest x-ray the same showing cardiomegaly with moderate to large right and small sized bilateral pleural effusion collection and/or effusions with mild to moderate central vascular congestion and bibasilar opacities favoring atelectasis along with left-sided chest tubes are redemonstrated. Per surgical services possible plans for Pleurx catheter placement. This time patient is resting comfortably in chair patient remains on high flow oxygen. Blood sugars have remained stable per nursing staff will transition off insulin drip to sliding scale coverage. Cardiology and critical care services are following. On 07/31/2021 patient having intermittent episodes of confusion. INR improving to 2.3. Hemoglobin 7.6. Chest tubes remain in place. Cardiology and critical care services are following. Patient remains on high flow nasal cannula. Current vitals heart rate 80, respiratory rate 16, blood pressure 104/51 On 08/01/2021 patient is more alert currently resting comfortably in chair. Sitter is at bedside. Patient remains on high flow nasal cannula. Patient remains on IV Bumex. Cordis, chest tube and right pigtail catheter all remain in place. On 08/02/2021 patient was seen and examined in the ICU he is alert and oriented 3 in no apparent distress, sitting up in a chair, he is maintained on high flow oxygen, with FiO2 of 45, pulse ox is 93% temperature 97.2 pulse 80 respiration 22 blood pressure 129/46, he denies any fever or chills no headache or dizziness no chest pain no shortness of breath no cough no nausea no vomiting no abdominal pain no diarrhea and no urinary symptoms, chest tube is still in place, he is maintained on Bumex 2 mg IV every 8 hours On 08/03/2021 patient remains in the intensive care unit. Patient is alert and oriented sitting comfortably in chair. Discussed case with surgical team Bumex has been DC'd. Creatinine 2.25 bun 70. Chest tube remains in place. Patient remains on high flow 60%. This time patient denies chest pain or shortness socorro th. Patient denies diarrhea. Patient denies any urinary burning or frequency On 08/04/2021 patient was seen and examined, in the ICU, he is alert and oriented 3 in no apparent distress, there is no fever or chills no headache or dizziness no chest pain no shortness of breath no cough no nausea or vomiting no abdominal pain no diarrhea and no urinary symptoms he still has a left sided chest to and he is complaining of discomfort at the site of the 2 he is maintained on oxygen at 8 L nasal cannula his pulse ox is 96% blood pressure 126/62 pulse 63 respiration 24 temperature 97.9 On 08/05/2021 patient was seen and examined in the ICU he is alert and oriented 3 in no apparent distress he is sitting up in a chair he is complaining of discomfort in the left chest at the site of the chest to he is also complaining of pain when coughing otherwise he denies any complaints at this time his vital exam reveals a temperature of 98 pulse 65 respiration 30 blood pressure 136/66 pulse ox 98% on oxygen 3 L nasal cannula, white blood count is 14.4 hemoglobin 8.0 platelet count 192 INR 1.2 BUN 85 creatinine 2.2 On 08/06/2021 patient remains in the intensive care unit. Patient is alert and oriented 3. White blood cell increasing to 15.3 per. Per critical care services will check UA and monitor fever pattern no need for antibiotic treatment at this time. Creatinine 2.53 and bun 89. Nephrology services are following. Current vitals temp 97.6, heart rate 64, pulse ox 94% on 3 L, blood pressure 166/57 08/07/2021 patient remains in the intensive care unit confusion has improved. Nephrology services are following. Patient remains with significant output from chest tubes. Current vitals temp 97.9, respiratory rate 22, blood pressure 124/60 to 98% on 5 L On 08/08/2021 patient is alert and oriented 3 currently sitting up in the care unit. Per nursing staff patient has been up ambulating with assistance. Still having significant output from chest tubes. Patient also getting treated for oral thrush. Discharge planning is in progress patient will likely need inpatient rehab upon discharge On 08/09/2021 patient was seen and examined in the ICU, he is sitting up in a chair, he is complaining of discomfort in his mouth due to thrush, he also has occasional cough otherwise he denies any complaints there is no fever or chills no headache or dizziness, no chest pain or shortness of breath no nausea or vomiting no abdominal pain no diarrhea no blood in the stools no burning with urination no frequency or urgency and no hematuria On 08/10/2021 patient remains in the intensive care unit. Currently working with physical therapy. Patient has positive sputum culture. Creatinine 2.7 bun 110. Nephrology services are following. Patient still having significant outpu t from chest tubes. Discussed case with cardiothoracic surgery no plans to remove chest tubes at this time. On 08/11/2021 patient was seen and examined in the ICU, he is sitting up in a chair, he is feeling somewhat better, he is complaining of discomfort in his mouth due to thrush, he also has occasional cough otherwise he denies any complaints there is no fever or chills no headache or dizziness, no chest pain or shortness of breath no nausea or vomiting no abdominal pain no diarrhea no blood in the stools no burning with urination no frequency or urgency and no hematuria. Objective - Vital Signs Vital signs: Vital Signs Temp 98.5 F 08/11/21 12:00 Pulse 65 08/11/21 12:48 Resp 22 08/11/21 12:00 BP 109/68 08/11/21 12:00 Pulse Ox 96 08/11/21 12:00 Intake & Output 08/10/21 08/11/21 08/11/21 18:59 06:59 18:59 Intake Total 1370 290 460 Output Total 1030 665 300 Balance 340 -375 160 Weight 73.3 kg Intake: IV 50 50 100 Cefepime 1 gm In Sodium 50 50 100 Chloride 0.9% 50 ml @ 12. 5 mls/hr IVPB Q12HR [facility] Rx#:[id number] Oral 1320 240 360 Output: Chest Tube Drainage 280 265 L pleural 90 180 Right Posterior Chest 190 85 Urine 750 400 300 Other: Voiding Method Toilet Toilet Urinal Urinal # Voids 1 # Bowel Movements 1 1 ABP, PAP, CO, CI - Last Documented Arterial Blood Pressure 119/35 Pulmonary Artery Pressure 35/28 Cardiac Output 5 Cardiac Index 2.7 - Exam In general patient is alert and oriented x 3 in no distress HEENT head normocephalic and atraumatic Neck is supple no JVD no goiter no lymphadenopathy no carotid bruit Chest examination reveals a scattered crackles in both lung sousa no wheezing Cardiac exam reveals regular heart sounds S1 and S2 no gallops no murmurs Abdomen is soft nontender no organomegaly with normal bowel sounds Extremity exam reveals no edema no cyanosis or clubbing Neurological examination reveals no gross focal deficits - Labs CBC & Chem 7: 08/12/21 07:18 08/12/21 07:18 Labs: Abnormal Lab Results - Last 24 Hours (Table) 08/10/21 08/10/21 08/11/21 Range/Units 16:46 20:25 06:43 WBC (3.8-10.6) k/uL RBC (4.30-5.90) m/uL Hgb (13.0-17.5) gm/dL Hct (39.0-53.0) % MCV (80.0-100.0) fL MCHC (31.0-37.0) g/dL RDW (11.5-15.5) % Neutrophils # (1.3-7.7) k/uL Lymphocytes # (1.0-4.8) k/uL Macrocytosis PT (9.0-12.0) sec INR (<1.2) Sodium (137-145) mmol/L BUN (9-20) mg/dL Creatinine (0.66-1.25) mg/dL Glucose (74-99) mg/dL POC Glucose (mg/dL) 202 H 134 H 138 H (75-99) mg/dL Calcium (8.4-10.2) mg/dL 08/11/21 08/11/21 08/11/21 Range/Units 07:33 07:33 07:33 WBC 16.3 H (3.8-10.6) k/uL RBC 2.87 L (4.30-5.90) m/uL Hgb 8.9 L (13.0-17.5) gm/dL Hct 29.9 L (39.0-53.0) % MCV 103.9 H (80.0-100.0) fL MCHC 29.6 L (31.0-37.0) g/dL RDW 21.7 H (11.5-15.5) % Neutrophils # 15.0 H (1.3-7.7) k/uL Lymphocytes # 0.3 L (1.0-4.8) k/uL Macrocytosis Marked A PT 14.4 H (9.0-12.0) sec INR 1.4 H (<1.2) Sodium 134 L (137-145) mmol/L BUN 119 H* (9-20) mg/dL Creatinine 2.63 H (0.66-1.25) mg/dL Glucose 124 H (74-99) mg/dL POC Glucose (mg/dL) (75-99) mg/dL Calcium 8.2 L (8.4-10.2) mg/dL 08/11/21 Range/Units 11:56 WBC (3.8-10.6) k/uL RBC (4.30-5.90) m/uL Hgb (13.0-17.5) gm/dL Hct (39.0-53.0) % MCV (80.0-100.0) fL MCHC (31.0-37.0) g/dL RDW (11.5-15.5) % Neutrophils # (1.3-7.7) k/uL Lymphocytes # (1.0-4.8) k/uL Macrocytosis PT (9.0-12.0) sec INR (<1.2) Sodium (137-145) mmol/L BUN (9-20) mg/dL Creatinine (0.66-1.25) mg/dL Glucose (74-99) mg/dL POC Glucose (mg/dL) 228 H (75-99) mg/dL Calcium (8.4-10.2) mg/dL Microbiology - Last 24 Hours (Table) 08/06/21 16:58 Blood Culture - Preliminary Blood No Growth after 96 hours 08/06/21 17:04 Blood Culture - Preliminary Blood No Growth after 96 hours Assessment and Plan Assessment: 1. Status post mitral valve replacement, tricuspid valve repair and single- vessel bypass grafting. 2. Right-sided pleural effusion 3. Coagulopathy. Resolved 4. History of congestive heart failure 5. History of valvular heart disease with previous mitral valve repair with a mitral clip at [facility] 6. History of coronary artery disease 7. History of hyperlipidemia 8. History of renal insufficiency 9. Previous history of atrial fibrillation 10. Leukocytosis White blood cell up to 15.3. Critical care services ordering UA. No need for antibiotics at this time per critical care will continue to monitor. Sputum culture currently pending 11. Sputum culture positive for Klebsiella pneumonia patient started on IV antibiotics Thank you for this consultation we will continue to follow patient closely throughout stay Patient remains in the intensive care unit Repeat labs ordered Patient to be transitioned off IV insulin to sliding scale coverage. A1c 5.8
[2021-08-12 20:07] LABS: Glucose,Whole Blood 228 mg/dL (75-99)
[2021-08-12] MEDS: CALCIUM ACETATE 667 MG TAB PO SCH (20:08)
[2021-08-12] MEDS: ATORVASTATIN 40 MG TAB PO SCH (20:08)
[2021-08-13] MEDS: HEPARIN SODIUM,PORCINE/PF 5,000 UNIT/0.5 ML SYRINGE SQ SCH ×2 (02:34→17:11)
[2021-08-13 06:32] LABS: Anisocytosis Moderate; Basophils % (A) 0 %; Eosinophils # (A) 0.1 k/uL (0-0.7); Eosinophils % (A) 1 %; HCT 29.4 % (39.0-53.0); HGB 8.7 gm/dL (13.0-17.5); Hypochromasia Marked; Lymphocytes # (A) 0.3 k/uL (1.0-4.8); Lymphocytes % (A) 2 %; MCHC 29.5 g/dL (31.0-37.0); MCV 105.3 fL (80.0-100.0); Mean Platelet Volume 9.2; Monocytes # (A) 0.9 k/uL (0-1.0); Monocytes % (A) 6 %; Neutrophils # (A) 12.3 k/uL (1.3-7.7); Neutrophils % (A) 89 %; Platelet Count 242 k/uL (150-450); Poikilocytosis Moderate; RBC 2.79 m/uL (4.30-5.90); RDW 21.1 % (11.5-15.5); WBC 13.8 k/uL (3.8-10.6)
[2021-08-13 06:35] LABS: Macrocytosis Marked
[2021-08-13 06:37] LABS: Prothrombin Time 20.5 sec (9.0-12.0)
[2021-08-13 06:40] LABS: Calcium 8.3 mg/dL (8.4-10.2); Potassium 5.2 mmol/L (3.5-5.1); Total Bilirubin 1.3 mg/dL (0.2-1.3); Total Protein 6.1 g/dL (6.3-8.2)
[2021-08-13 07:39] LABS: Glucose,Whole Blood 179 mg/dL (75-99)
--- NOTE | 2021-08-13 07:58 | XR ---
EXAMINATION TYPE: XR chest 1V portable DATE OF EXAM: 08/13/2021 COMPARISON: 08/12/2021 INDICATION: Postop cardiac surgery TECHNIQUE: Single frontal view of the chest is obtained. FINDINGS: The heart size is enlarged. The pulmonary vasculature is somewhat prominent. There is some linear markings with more peripheral lucency at the right costophrenic angle. Small loc ulated pneumothorax not excluded. A pigtail catheter is partially visualized at the edge of the field -of-view at the right base. Some minimal pneumothorax at the right upper lateral chest may be present . Left-sided chest tube is present. No pneumothorax on the left is evident. Previous mild increased lung markings have improved over the interval. Resolving pulmonary edema may be present. IMPRESSION: 1. Left-sided chest tube right basilar pigtail catheter. 2. Loculated right costophrenic angle pneumothorax should be considered. Minimal right apical pneumot horax may be present. Continued monitoring is recommended. 3. Cardiomegaly with prominent pulmonary vascular markings. Correlate for volume overload. This appea rs improved from comparison.
[2021-08-13] MEDS ORDERED: BUMETANIDE 0.25 MG/ML 4 ML VIAL IVP STA (08:15)
[2021-08-13] MEDS: IPRATROPIUM-ALBUTEROL 3 ML NEB INHALATION SCH ×4 (08:28→19:54)
[2021-08-13] MEDS: INSULIN ASPART (NovoLOG) 100 UNIT/ML VIAL SQ SCH ×4 (08:29→21:07)
[2021-08-13] MEDS: ASCORBIC ACID 500 MG TAB PO SCH (08:30)
[2021-08-13] MEDS: PANTOPRAZOLE 40 MG TABLET PO SCH (08:30)
[2021-08-13] MEDS: FOLIC ACID 1 MG TAB PO SCH (08:30)
[2021-08-13] MEDS: allopurinoL 100 MG TAB PO SCH (08:30)
[2021-08-13] MEDS: SODIUM BICARBONATE TAB 650 MG TAB PO SCH (08:30)
[2021-08-13] MEDS: ASPIRIN 81 MG PO SCH (08:31)
[2021-08-13] MEDS: FERROUS SULFATE 325 MG TAB PO SCH (08:31)
[2021-08-13] MEDS: SERTRALINE 50 MG TAB PO SCH (08:31)
[2021-08-13] MEDS: BUMETANIDE 1 MG TAB PO SCH (08:31)
[2021-08-13] MEDS: METOPROLOL TARTRATE 12.5 MG TAB PO SCH ×2 (08:32→21:07)
[2021-08-13] MEDS: MAG HYDROX/AL HYDROX/SIMETH 30 ML, LIDOCAINE VISCOUS 2% 30 ML, NYSTATIN 100,000 UNIT/ML... PO SCH ×9 (08:32→21:08)
[2021-08-13] MEDS: ACETAMINOPHEN TAB 325 MG TAB PO PRN (08:42)
[2021-08-13] MEDS: CEFEPIME 1 GM in SODIUM CHLORIDE 0.9% 50 ML IVPB SCH ×2 (08:43→21:06)
[2021-08-13] MEDS ORDERED: amLODIPine 2.5 MG TAB PO SCH (09:00)
--- NOTE | 2021-08-13 09:12 | P.PN ---
Subjective Patient is seen in follow-up for acute kidney injury on chronic kidney disease. Renal function fairly stable. Good urine output. Denies chest pain. On 10 L nasal cannula. Blood pressure on the lower side. Oral intake fair. More edematous today. Vital signs are stable. Blood pressure on the lower side. General: Awake and alert. No acute distress. HEENT: Head exam is unremarkable. LUNGS: Chest tubes noted. Breath sounds decreased. HEART: Rate and Rhythm are regular. ABDOMEN: Soft, no distention. EXTREMITITES: 1+ edema. Objective - Vital Signs Vital signs: Vital Signs Temp 96.8 F L 08/13/21 04:00 Pulse 70 08/13/21 09:00 Resp 26 H 08/13/21 09:00 BP 100/67 08/13/21 09:00 Pulse Ox 88 L 08/13/21 09:00 Intake & Output 08/12/21 08/13/21 08/13/21 18:59 06:59 18:59 Intake Total 1050.0 290 262.5 Output Total 470 760 200 Balance 580.0 -470 62.5 Weight 72.8 kg Intake: IV 50.0 50 12.5 Cefepime 1 gm In Sodium 50.0 50 12.5 Chloride 0.9% 50 ml @ 12. 5 mls/hr IVPB Q12HR [facility] Rx#:[id number] Oral 1000 240 250 Output: Chest Tube Drainage 220 160 L pleural 100 100 Right Posterior Chest 120 60 Drainage [address] 140 70 Right Posterior 260 130 Urine 250 200 Other: Voiding Method Bedside Commode Toilet Urinal # Voids 1 1 # Bowel Movements 1 1 ABP, PAP, CO, CI - Last Documented Arterial Blood Pressure 119/35 Pulmonary Artery Pressure 35/28 Cardiac Output 5 Cardiac Index 2.7 - Labs CBC & Chem 7: 08/13/21 05:31 08/13/21 05:31 Labs: Abnormal Lab Results - Last 24 Hours (Table) 08/12/21 08/12/21 08/12/21 Range/Units 07:18 07:18 11:37 WBC (3.8-10.6) k/uL RBC (4.30-5.90) m/uL Hgb (13.0-17.5) gm/dL Hct (39.0-53.0) % MCV (80.0-100.0) fL MCHC (31.0-37.0) g/dL RDW (11.5-15.5) % Neutrophils # (1.3-7.7) k/uL Lymphocytes # (1.0-4.8) k/uL Macrocytosis PT 17.0 H (9.0-12.0) sec INR 1.7 H (<1.2) Sodium (137-145) mmol/L Potassium (3.5-5.1) mmol/L BUN (9-20) mg/dL Creatinine (0.66-1.25) mg/dL Glucose (74-99) mg/dL POC Glucose (mg/dL) 173 H (75-99) mg/dL Calcium (8.4-10.2) mg/dL Iron 31 L (65-175) ug/dL % Saturation 10.91 L (15.00-50.00) Alkaline Phosphatase (38-126) U/L Total Protein (6.3-8.2) g/dL Albumin (3.5-5.0) g/dL 08/12/21 08/12/21 08/13/21 Range/Units 16:09 20:06 05:31 WBC 13.8 H (3.8-10.6) k/uL RBC 2.79 L (4.30-5.90) m/uL Hgb 8.7 L (13.0-17.5) gm/dL Hct 29.4 L (39.0-53.0) % MCV 105.3 H (80.0-100.0) fL MCHC 29.5 L (31.0-37.0) g/dL RDW 21.1 H (11.5-15.5) % Neutrophils # 12.3 H (1.3-7.7) k/uL Lymphocytes # 0.3 L (1.0-4.8) k/uL Macrocytosis Marked A PT (9.0-12.0) sec INR (<1.2) Sodium (137-145) mmol/L Potassium (3.5-5.1) mmol/L BUN (9-20) mg/dL Creatinine (0.66-1.25) mg/dL Glucose (74-99) mg/dL POC Glucose (mg/dL) 233 H 228 H (75-99) mg/dL Calcium (8.4-10.2) mg/dL Iron (65-175) ug/dL % Saturation (15.00-50.00) Alkaline Phosphatase (38-126) U/L Total Protein (6.3-8.2) g/dL Albumin (3.5-5.0) g/dL 08/13/21 08/13/21 08/13/21 Range/Units 05:31 05:31 07:38 WBC (3.8-10.6) k/uL RBC (4.30-5.90) m/uL Hgb (13.0-17.5) gm/dL Hct (39.0-53.0) % MCV (80.0-100.0) fL MCHC (31.0-37.0) g/dL RDW (11.5-15.5) % Neutrophils # (1.3-7.7) k/uL Lymphocytes # (1.0-4.8) k/uL Macrocytosis PT 20.5 H (9.0-12.0) sec INR 2.0 H (<1.2) Sodium 134 L (137-145) mmol/L Potassium 5.2 H (3.5-5.1) mmol/L BUN 126 H* (9-20) mg/dL Creatinine 2.84 H (0.66-1.25) mg/dL Glucose 127 H (74-99) mg/dL POC Glucose (mg/dL) 179 H (75-99) mg/dL Calcium 8.3 L (8.4-10.2) mg/dL Iron (65-175) ug/dL % Saturation (15.00-50.00) Alkaline Phosphatase 129 H (38-126) U/L Total Protein 6.1 L (6.3-8.2) g/dL Albumin 3.0 L (3.5-5.0) g/dL Microbiology - Last 24 Hours (Table) 08/06/21 16:58 Blood Culture - Final Blood No Growth after 144 hours 08/06/21 17:04 Blood Culture - Final Blood No Growth after 144 hours Assessment and Plan Plan: Assessment: 1. Acute kidney injury secondary to ATN secondary to hemodynamics and acute blood loss anemia. Creatinine stable at 2.84. Nonoliguric. Elevated BUN secondary to acute kidney injury and diuresis. No active bleeding. Not on steroids. 2. Chronic kidney disease stage IIIB with baseline creatinine near 1.6-1.7. 3. Coronary artery disease status post CABG with mitral valve replacement and tricuspid valve repair. 4. Acute blood loss anemia postoperatively status post blood transfusion. On Aranesp. No active bleeding. Iron deficiency noted. 5. Volume overload. 6. Chronic kidney disease mineral bone disease maintained on PhosLo. Phosphorus 5.5 dated 08/09/2021. 7. Metabolic acidosis secondary to acute kidney injury. On oral bicarbonate. 8. Hypertension with chronic kidney disease. Blood pressure in the lower side. 9. Sputum culture positive for Klebsiella. On antibiotics. Plan: Bumex 1 mg IV 2 doses today. Encouraged oral intake. Continue to monitor renal function and urine output. Add IV iron. Stop amlodipine. Lopressor also held this morning. Follow-up a.m. cortisol level. Case discussed with cardiology and cardiac thoracic surgery.
--- NOTE | 2021-08-13 09:23 | PN ---
PROGRESS NOTE Mr. Mascorro is status post mitral valve replacement with a tissue valve and tricuspid valve repair. He still has significant tricuspid regurgitation, edema of lower extremities and pulmonary hypertension. Even though tricuspid valve was repaired, regurgitation is significant, and this is the reason for his edema. He also has a low albumin at 3.0. He is in atrial fibrillation with paced beats. However, he has done some walking yesterday. He seems to be a little motivated. Vitals are stable. JVD is evident. S1, S2 with irregular rhythm noted. Systolic murmur is evident. Lungs reveal diminished air entry. Abdomen is soft. Lower extremities reveal diminished pulses. He has chest tubes on both sides. There is still a question of a loculated pneumothorax on the right. I will let the surgeons evaluate him and decide regarding the chest tube. I think we will hold off on amlodipine at this time in view of his relative hypotension. Prognosis remains guarded. MMODL / IJN: [id number] /
[2021-08-13] MEDS: SODIUM FERRIC GLUCONAT-SUCROSE 125 MG in SODIUM CHLORIDE 0.9% 100 ML IVPB SCH (09:47)
--- NOTE | 2021-08-13 10:06 | P.PN ---
Subjective Progress Note Date: 08/12/21 This is a 81-year-old male patient who is currently postop day 2 from mitral valve replacement, tricuspid valve repair and single-vessel bypass grafting SVG to obtuse marginal. Patient has a past medical history of valvular heart disease with symptoms including shortness of breath with exertion and unable to perform many of his activities of daily living. Additional medical history includes coronary artery disease with previous cardiac infarction and PCI, hypertension, chronic atrial fibrillation on Coumadin for and configuration status post cardioversion, sick sinus syndrome with [facility] permanent pacemaker placement 2016, chronic systolic heart failure, atrial septal defect status post closure with previous mitral clip in 2019 at [facility], chronic renal insufficiency, obstructive sleep apnea, reoccurring right-sided pleural effusions with previous thoracentesis 4. At this time patient is currently resting comfortably in the intensive care unit. Patient was successfully extubated per protocol currently on IV dopamine and Levophed. INR elevated at 6.5. hemoglobin 6.6. 1 unit PRBCs, 2 units of FFP have been ordered per surgical services INR recheck ordered for noon. Chest x-ray the same showing cardiomegaly with moderate to large right and small sized bilateral pleural effusion collection and/or effusions with mild to moderate central vascular congestion and bibasilar opacities favoring atelectasis along with left-sided chest tubes are redemonstrated. Per surgical services possible plans for Pleurx catheter placement. This time patient is resting comfortably in chair patient remains on high flow oxygen. Blood sugars have remained stable per nursing staff will transition off insulin drip to sliding scale coverage. Cardiology and critical care services are following. On 07/31/2021 patient having intermittent episodes of confusion. INR improving to 2.3. Hemoglobin 7.6. Chest tubes remain in place. Cardiology and critical care services are following. Patient remains on high flow nasal cannula. Current vitals heart rate 80, respiratory rate 16, blood pressure 104/51 On 08/01/2021 patient is more alert currently resting comfortably in chair. Sitter is at bedside. Patient remains on high flow nasal cannula. Patient remains on IV Bumex. Cordis, chest tube and right pigtail catheter all remain in place. On 08/02/2021 patient was seen and examined in the ICU he is alert and oriented 3 in no apparent distress, sitting up in a chair, he is maintained on high flow oxygen, with FiO2 of 45, pulse ox is 93% temperature 97.2 pulse 80 respiration 22 blood pressure 129/46, he denies any fever or chills no headache or dizziness no chest pain no shortness of breath no cough no nausea no vomiting no abdominal pain no diarrhea and no urinary symptoms, chest tube is still in place, he is maintained on Bumex 2 mg IV every 8 hours On 08/03/2021 patient remains in the intensive care unit. Patient is alert and oriented sitting comfortably in chair. Discussed case with surgical team Bumex has been DC'd. Creatinine 2.25 bun 70. Chest tube remains in place. Patient remains on high flow 60%. This time patient denies chest pain or shortness socorro th. Patient denies diarrhea. Patient denies any urinary burning or frequency On 08/04/2021 patient was seen and examined, in the ICU, he is alert and oriented 3 in no apparent distress, there is no fever or chills no headache or dizziness no chest pain no shortness of breath no cough no nausea or vomiting no abdominal pain no diarrhea and no urinary symptoms he still has a left sided chest to and he is complaining of discomfort at the site of the 2 he is maintained on oxygen at 8 L nasal cannula his pulse ox is 96% blood pressure 126/62 pulse 63 respiration 24 temperature 97.9 On 08/05/2021 patient was seen and examined in the ICU he is alert and oriented 3 in no apparent distress he is sitting up in a chair he is complaining of discomfort in the left chest at the site of the chest to he is also complaining of pain when coughing otherwise he denies any complaints at this time his vital exam reveals a temperature of 98 pulse 65 respiration 30 blood pressure 136/66 pulse ox 98% on oxygen 3 L nasal cannula, white blood count is 14.4 hemoglobin 8.0 platelet count 192 INR 1.2 BUN 85 creatinine 2.2 On 08/06/2021 patient remains in the intensive care unit. Patient is alert and oriented 3. White blood cell increasing to 15.3 per. Per critical care services will check UA and monitor fever pattern no need for antibiotic treatment at this time. Creatinine 2.53 and bun 89. Nephrology services are following. Current vitals temp 97.6, heart rate 64, pulse ox 94% on 3 L, blood pressure 166/57 08/07/2021 patient remains in the intensive care unit confusion has improved. Nephrology services are following. Patient remains with significant output from chest tubes. Current vitals temp 97.9, respiratory rate 22, blood pressure 124/60 to 98% on 5 L On 08/08/2021 patient is alert and oriented 3 currently sitting up in the care unit. Per nursing staff patient has been up ambulating with assistance. Still having significant output from chest tubes. Patient also getting treated for oral thrush. Discharge planning is in progress patient will likely need inpatient rehab upon discharge On 08/09/2021 patient was seen and examined in the ICU, he is sitting up in a chair, he is complaining of discomfort in his mouth due to thrush, he also has occasional cough otherwise he denies any complaints there is no fever or chills no headache or dizziness, no chest pain or shortness of breath no nausea or vomiting no abdominal pain no diarrhea no blood in the stools no burning with urination no frequency or urgency and no hematuria On 08/10/2021 patient remains in the intensive care unit. Currently working with physical therapy. Patient has positive sputum culture. Creatinine 2.7 bun 110. Nephrology services are following. Patient still having significant outpu t from chest tubes. Discussed case with cardiothoracic surgery no plans to remove chest tubes at this time. On 08/11/2021 patient was seen and examined in the ICU, he is sitting up in a chair, he is feeling somewhat better, he is complaining of discomfort in his mouth due to thrush, he also has occasional cough otherwise he denies any complaints there is no fever or chills no headache or dizziness, no chest pain or shortness of breath no nausea or vomiting no abdominal pain no diarrhea no blood in the stools no burning with urination no frequency or urgency and no hematuria. On 08/12/2021 patient remains in the intensive care unit. Nephrology services are following. Patient remains on IV antibiotics. Patient still draining significant amount from chest tube. Diet and ambulation encouraged. At this time patient denies chest pain or shortness of breath. Patient denies nausea vomiting or diarrhea. Patient denies any urinary burning or frequency Objective - Vital Signs Vital signs: Vital Signs Temp 96.4 F L 08/12/21 16:00 Pulse 66 08/12/21 18:00 Resp 23 08/12/21 18:00 BP 112/61 08/12/21 18:00 Pulse Ox 92 L 08/12/21 18:00 Intake & Output 08/11/21 08/12/21 08/12/21 18:59 06:59 18:59 Intake Total 1420 810.0 1050.0 Output Total 1250 1105 470 Balance 170 -295.0 580.0 Weight 73.2 kg Intake: IV 100 50.0 50.0 Cefepime 1 gm In Sodium 100 50.0 50.0 Chloride 0.9% 50 ml @ 12. 5 mls/hr IVPB Q12HR [facility] Rx#:[id number] Oral 7585 [id number] 9101 Output: Chest Tube Drainage 180 220 L pleural 80 100 Right Posterior Chest 100 120 Drainage [address] 140 70 Right Posterior 260 130 Urine 850 725 250 Other: Voiding Method Toilet Bedside Commode Urinal # Voids 1 1 # Bowel Movements 1 1 ABP, PAP, CO, CI - Last Documented Arterial Blood Pressure 119/35 Pulmonary Artery Pressure 35/28 Cardiac Output 5 Cardiac Index 2.7 - Exam In general patient is alert and oriented x 3 in no distress HEENT head normocephalic and atraumatic Neck is supple no JVD no goiter no lymphadenopathy no carotid bruit Chest examination reveals a scattered crackles in both lung sousa no wheezing Cardiac exam reveals regular heart sounds S1 and S2 no gallops no murmurs Abdomen is soft nontender no organomegaly with normal bowel sounds Extremity exam reveals no edema no cyanosis or clubbing Neurological examination reveals no gross focal deficits - Labs CBC & Chem 7: 08/13/21 05:31 08/13/21 05:31 Labs: Abnormal Lab Results - Last 24 Hours (Table) 08/11/21 08/12/21 08/12/21 Range/Units 21:42 06:54 07:18 WBC 13.2 H (3.8-10.6) k/uL RBC 2.66 L (4.30-5.90) m/uL Hgb 8.5 L (13.0-17.5) gm/dL Hct 27.9 L (39.0-53.0) % MCV 104.9 H (80.0-100.0) fL MCHC 30.4 L (31.0-37.0) g/dL RDW 21.5 H (11.5-15.5) % Neutrophils # 11.8 H (1.3-7.7) k/uL Lymphocytes # 0.3 L (1.0-4.8) k/uL Macrocytosis Marked A PT (9.0-12.0) sec INR (<1.2) Sodium (137-145) mmol/L Carbon Dioxide (22-30) mmol/L BUN (9-20) mg/dL Creatinine (0.66-1.25) mg/dL Glucose (74-99) mg/dL POC Glucose (mg/dL) 186 H 138 H (75-99) mg/dL Calcium (8.4-10.2) mg/dL Iron (65-175) ug/dL % Saturation (15.00-50.00) 08/12/21 08/12/21 08/12/21 Range/Units 07:18 07:18 07:18 WBC (3.8-10.6) k/uL RBC (4.30-5.90) m/uL Hgb (13.0-17.5) gm/dL Hct (39.0-53.0) % MCV (80.0-100.0) fL MCHC (31.0-37.0) g/dL RDW (11.5-15.5) % Neutrophils # (1.3-7.7) k/uL Lymphocytes # (1.0-4.8) k/uL Macrocytosis PT 17.0 H (9.0-12.0) sec INR 1.7 H (<1.2) Sodium 133 L (137-145) mmol/L Carbon Dioxide 21 L (22-30) mmol/L BUN 119 H* (9-20) mg/dL Creatinine 2.80 H (0.66-1.25) mg/dL Glucose 130 H (74-99) mg/dL POC Glucose (mg/dL) (75-99) mg/dL Calcium 8.2 L (8.4-10.2) mg/dL Iron 31 L (65-175) ug/dL % Saturation 10.91 L (15.00-50.00) 08/12/21 08/12/21 Range/Units 11:37 16:09 WBC (3.8-10.6) k/uL RBC (4.30-5.90) m/uL Hgb (13.0-17.5) gm/dL Hct (39.0-53.0) % MCV (80.0-100.0) fL MCHC (31.0-37.0) g/dL RDW (11.5-15.5) % Neutrophils # (1.3-7.7) k/uL Lymphocytes # (1.0-4.8) k/uL Macrocytosis PT (9.0-12.0) sec INR (<1.2) Sodium (137-145) mmol/L Carbon Dioxide (22-30) mmol/L BUN (9-20) mg/dL Creatinine (0.66-1.25) mg/dL Glucose (74-99) mg/dL POC Glucose (mg/dL) 173 H 233 H (75-99) mg/dL Calcium (8.4-10.2) mg/dL Iron (65-175) ug/dL % Saturation (15.00-50.00) Microbiology - Last 24 Hours (Table) 08/06/21 17:04 Blood Culture - Preliminary Blood No Growth after 120 hours 08/06/21 16:58 Blood Culture - Preliminary Blood No Growth after 120 hours Assessment and Plan Assessment: 1. Status post mitral valve replacement, tricuspid valve repair and single- vessel bypass grafting. 2. Right-sided pleural effusion 3. Coagulopathy. Resolved 4. History of congestive heart failure 5. History of valvular heart disease with previous mitral valve repair with a mitral clip at [facility] 6. History of coronary artery disease 7. History of hyperlipidemia 8. History of renal insufficiency 9. Previous history of atrial fibrillation 10. Sputum culture positive for Klebsiella pneumonia patient started on IV antibiotics Thank you for this consultation we will continue to follow patient closely throughout stay Patient remains in the intensive care unit Repeat labs ordered Patient to be transitioned off IV insulin to sliding scale coverage. A1c 5.8 Ambulation encouraged Diet encouraged
--- NOTE | 2021-08-13 10:09 | P.PN ---
Subjective Progress Note Date: 08/13/21 This is a 81-year-old male patient who is currently postop day 2 from mitral valve replacement, tricuspid valve repair and single-vessel bypass grafting SVG to obtuse marginal. Patient has a past medical history of valvular heart disease with symptoms including shortness of breath with exertion and unable to perform many of his activities of daily living. Additional medical history includes coronary artery disease with previous cardiac infarction and PCI, hypertension, chronic atrial fibrillation on Coumadin for and configuration status post cardioversion, sick sinus syndrome with [facility] permanent pacemaker placement 2016, chronic systolic heart failure, atrial septal defect status post closure with previous mitral clip in 2019 at [facility], chronic renal insufficiency, obstructive sleep apnea, reoccurring right-sided pleural effusions with previous thoracentesis 4. At this time patient is currently resting comfortably in the intensive care unit. Patient was successfully extubated per protocol currently on IV dopamine and Levophed. INR elevated at 6.5. hemoglobin 6.6. 1 unit PRBCs, 2 units of FFP have been ordered per surgical services INR recheck ordered for noon. Chest x-ray the same showing cardiomegaly with moderate to large right and small sized bilateral pleural effusion collection and/or effusions with mild to moderate central vascular congestion and bibasilar opacities favoring atelectasis along with left-sided chest tubes are redemonstrated. Per surgical services possible plans for Pleurx catheter placement. This time patient is resting comfortably in chair patient remains on high flow oxygen. Blood sugars have remained stable per nursing staff will transition off insulin drip to sliding scale coverage. Cardiology and critical care services are following. On 07/31/2021 patient having intermittent episodes of confusion. INR improving to 2.3. Hemoglobin 7.6. Chest tubes remain in place. Cardiology and critical care services are following. Patient remains on high flow nasal cannula. Current vitals heart rate 80, respiratory rate 16, blood pressure 104/51 On 08/01/2021 patient is more alert currently resting comfortably in chair. Sitter is at bedside. Patient remains on high flow nasal cannula. Patient remains on IV Bumex. Cordis, chest tube and right pigtail catheter all remain in place. On 08/02/2021 patient was seen and examined in the ICU he is alert and oriented 3 in no apparent distress, sitting up in a chair, he is maintained on high flow oxygen, with FiO2 of 45, pulse ox is 93% temperature 97.2 pulse 80 respiration 22 blood pressure 129/46, he denies any fever or chills no headache or dizziness no chest pain no shortness of breath no cough no nausea no vomiting no abdominal pain no diarrhea and no urinary symptoms, chest tube is still in place, he is maintained on Bumex 2 mg IV every 8 hours On 08/03/2021 patient remains in the intensive care unit. Patient is alert and oriented sitting comfortably in chair. Discussed case with surgical team Bumex has been DC'd. Creatinine 2.25 bun 70. Chest tube remains in place. Patient remains on high flow 60%. This time patient denies chest pain or shortness socorro th. Patient denies diarrhea. Patient denies any urinary burning or frequency On 08/04/2021 patient was seen and examined, in the ICU, he is alert and oriented 3 in no apparent distress, there is no fever or chills no headache or dizziness no chest pain no shortness of breath no cough no nausea or vomiting no abdominal pain no diarrhea and no urinary symptoms he still has a left sided chest to and he is complaining of discomfort at the site of the 2 he is maintained on oxygen at 8 L nasal cannula his pulse ox is 96% blood pressure 126/62 pulse 63 respiration 24 temperature 97.9 On 08/05/2021 patient was seen and examined in the ICU he is alert and oriented 3 in no apparent distress he is sitting up in a chair he is complaining of discomfort in the left chest at the site of the chest to he is also complaining of pain when coughing otherwise he denies any complaints at this time his vital exam reveals a temperature of 98 pulse 65 respiration 30 blood pressure 136/66 pulse ox 98% on oxygen 3 L nasal cannula, white blood count is 14.4 hemoglobin 8.0 platelet count 192 INR 1.2 BUN 85 creatinine 2.2 On 08/06/2021 patient remains in the intensive care unit. Patient is alert and oriented 3. White blood cell increasing to 15.3 per. Per critical care services will check UA and monitor fever pattern no need for antibiotic treatment at this time. Creatinine 2.53 and bun 89. Nephrology services are following. Current vitals temp 97.6, heart rate 64, pulse ox 94% on 3 L, blood pressure 166/57 08/07/2021 patient remains in the intensive care unit confusion has improved. Nephrology services are following. Patient remains with significant output from chest tubes. Current vitals temp 97.9, respiratory rate 22, blood pressure 124/60 to 98% on 5 L On 08/08/2021 patient is alert and oriented 3 currently sitting up in the care unit. Per nursing staff patient has been up ambulating with assistance. Still having significant output from chest tubes. Patient also getting treated for oral thrush. Discharge planning is in progress patient will likely need inpatient rehab upon discharge On 08/09/2021 patient was seen and examined in the ICU, he is sitting up in a chair, he is complaining of discomfort in his mouth due to thrush, he also has occasional cough otherwise he denies any complaints there is no fever or chills no headache or dizziness, no chest pain or shortness of breath no nausea or vomiting no abdominal pain no diarrhea no blood in the stools no burning with urination no frequency or urgency and no hematuria On 08/10/2021 patient remains in the intensive care unit. Currently working with physical therapy. Patient has positive sputum culture. Creatinine 2.7 bun 110. Nephrology services are following. Patient still having significant outpu t from chest tubes. Discussed case with cardiothoracic surgery no plans to remove chest tubes at this time. On 08/11/2021 patient was seen and examined in the ICU, he is sitting up in a chair, he is feeling somewhat better, he is complaining of discomfort in his mouth due to thrush, he also has occasional cough otherwise he denies any complaints there is no fever or chills no headache or dizziness, no chest pain or shortness of breath no nausea or vomiting no abdominal pain no diarrhea no blood in the stools no burning with urination no frequency or urgency and no hematuria. On 08/12/2021 patient remains in the intensive care unit. Nephrology services are following. Patient remains on IV antibiotics. Patient still draining significant amount from chest tube. Diet and ambulation encouraged. At this time patient denies chest pain or shortness of breath. Patient denies nausea vomiting or diarrhea. Patient denies any urinary burning or frequency On 08/13/2021 patient is alert and oriented 3 currently sitting up in chair. Patient remains in the intensive care unit chest tubes in place. White blood cell 13.8, hemoglobin 8.7, creatinine 2.84 and bun 126. Patient remains on 8 L nasal cannula. Current vitals temp 96.5, heart rate 70, her story rate 23, blood pressure 100/67 patient satting 90% on 8 L Objective - Vital Signs Vital signs: Vital Signs Temp 96.5 F L 08/13/21 08:00 Pulse 70 08/13/21 09:00 Resp 26 H 08/13/21 09:00 BP 100/67 08/13/21 09:00 Pulse Ox 88 L 08/13/21 09:00 Intake & Output 08/12/21 08/13/21 08/13/21 18:59 06:59 18:59 Intake Total 1050.0 290 262.5 Output Total 470 760 200 Balance 580.0 -470 62.5 Weight 72.8 kg Intake: IV 50.0 50 12.5 Cefepime 1 gm In Sodium 50.0 50 12.5 Chloride 0.9% 50 ml @ 12. 5 mls/hr IVPB Q12HR [facility] Rx#:[id number] Oral 1000 240 250 Output: Chest Tube Drainage 220 160 L pleural 100 100 Right Posterior Chest 120 60 Drainage [address] 140 70 Right Posterior 260 130 Urine 250 200 Other: Voiding Method Bedside Commode Toilet Urinal # Voids 1 1 # Bowel Movements 1 1 ABP, PAP, CO, CI - Last Documented Arterial Blood Pressure 119/35 Pulmonary Artery Pressure 35/28 Cardiac Output 5 Cardiac Index 2.7 - Exam In general patient is alert and oriented x 3 in no distress HEENT head normocephalic and atraumatic Neck is supple no JVD no goiter no lymphadenopathy no carotid bruit Chest examination reveals a scattered crackles in both lung sousa no wheezing Cardiac exam reveals regular heart sounds S1 and S2 no gallops no murmurs Abdomen is soft nontender no organomegaly with normal bowel sounds Extremity exam reveals no edema no cyanosis or clubbing Neurological examination reveals no gross focal deficits - Labs CBC & Chem 7: 08/13/21 05:31 08/13/21 05:31 Labs: Abnormal Lab Results - Last 24 Hours (Table) 08/12/21 08/12/21 08/12/21 Range/Units 07:18 07:18 11:37 WBC (3.8-10.6) k/uL RBC (4.30-5.90) m/uL Hgb (13.0-17.5) gm/dL Hct (39.0-53.0) % MCV (80.0-100.0) fL MCHC (31.0-37.0) g/dL RDW (11.5-15.5) % Neutrophils # (1.3-7.7) k/uL Lymphocytes # (1.0-4.8) k/uL Macrocytosis PT 17.0 H (9.0-12.0) sec INR 1.7 H (<1.2) Sodium (137-145) mmol/L Potassium (3.5-5.1) mmol/L BUN (9-20) mg/dL Creatinine (0.66-1.25) mg/dL Glucose (74-99) mg/dL POC Glucose (mg/dL) 173 H (75-99) mg/dL Calcium (8.4-10.2) mg/dL Iron 31 L (65-175) ug/dL % Saturation 10.91 L (15.00-50.00) Alkaline Phosphatase (38-126) U/L Total Protein (6.3-8.2) g/dL Albumin (3.5-5.0) g/dL 08/12/21 08/12/21 08/13/21 Range/Units 16:09 20:06 05:31 WBC 13.8 H (3.8-10.6) k/uL RBC 2.79 L (4.30-5.90) m/uL Hgb 8.7 L (13.0-17.5) gm/dL Hct 29.4 L (39.0-53.0) % MCV 105.3 H (80.0-100.0) fL MCHC 29.5 L (31.0-37.0) g/dL RDW 21.1 H (11.5-15.5) % Neutrophils # 12.3 H (1.3-7.7) k/uL Lymphocytes # 0.3 L (1.0-4.8) k/uL Macrocytosis Marked A PT (9.0-12.0) sec INR (<1.2) Sodium (137-145) mmol/L Potassium (3.5-5.1) mmol/L BUN (9-20) mg/dL Creatinine (0.66-1.25) mg/dL Glucose (74-99) mg/dL POC Glucose (mg/dL) 233 H 228 H (75-99) mg/dL Calcium (8.4-10.2) mg/dL Iron (65-175) ug/dL % Saturation (15.00-50.00) Alkaline Phosphatase (38-126) U/L Total Protein (6.3-8.2) g/dL Albumin (3.5-5.0) g/dL 08/13/21 08/13/21 08/13/21 Range/Units 05:31 05:31 07:38 WBC (3.8-10.6) k/uL RBC (4.30-5.90) m/uL Hgb (13.0-17.5) gm/dL Hct (39.0-53.0) % MCV (80.0-100.0) fL MCHC (31.0-37.0) g/dL RDW (11.5-15.5) % Neutrophils # (1.3-7.7) k/uL Lymphocytes # (1.0-4.8) k/uL Macrocytosis PT 20.5 H (9.0-12.0) sec INR 2.0 H (<1.2) Sodium 134 L (137-145) mmol/L Potassium 5.2 H (3.5-5.1) mmol/L BUN 126 H* (9-20) mg/dL Creatinine 2.84 H (0.66-1.25) mg/dL Glucose 127 H (74-99) mg/dL POC Glucose (mg/dL) 179 H (75-99) mg/dL Calcium 8.3 L (8.4-10.2) mg/dL Iron (65-175) ug/dL % Saturation (15.00-50.00) Alkaline Phosphatase 129 H (38-126) U/L Total Protein 6.1 L (6.3-8.2) g/dL Albumin 3.0 L (3.5-5.0) g/dL Microbiology - Last 24 Hours (Table) 08/06/21 16:58 Blood Culture - Final Blood No Growth after 144 hours 08/06/21 17:04 Blood Culture - Final Blood No Growth after 144 hours Assessment and Plan Assessment: 1. Status post mitral valve replacement, tricuspid valve repair and single- vessel bypass grafting. 2. Right-sided pleural effusion 3. Coagulopathy. Resolved 4. History of congestive heart failure 5. History of valvular heart disease with previous mitral valve repair with a mitral clip at [facility] 6. History of coronary artery disease 7. History of hyperlipidemia 8. History of renal insufficiency 9. Previous history of atrial fibrillation 10. Sputum culture positive for Klebsiella pneumonia patient started on IV antibiotics Thank you for this consultation we will continue to follow patient closely throughout stay Patient remains in the intensive care unit Repeat labs ordered Patient to be transitioned off IV insulin to sliding scale coverage. A1c 5.8 Chest tubes remain in place Right-sided Pleurx pigtail in place Ambulation encouraged Diet encouraged
--- NOTE | 2021-08-13 10:43 | P.PN ---
Subjective Progress Note Date: 08/13/21 Principal diagnosis: Mitral valve regurgitation, tricuspid valve regurgitation, and coronary artery disease. Past medical history significant for coronary artery disease with prev ious myocardial infarction and PCI, hypertension, hyperlipidemia, chronic persistent atrial fibrillation on Coumadin for anticoagulation as an outpatient, status post cardioversion, sick sinus syndrome, status post [facility] [facility] permanent pacemaker placement in 2017, chronic systolic heart failure, atrial septal defect status post closure, history of MitraClip in 2019, chronic renal insufficiency, remote history of tobacco dependence, restrictive lung disease, obstructive sleep apnea, recurrent right pleural effusions with history of 4 previous thoracentesis, remote history of pneumonia, and a family history of premature coronary artery disease. Preoperative nasal screening positive for MSSA, treated. POD #16 mitral valve replacement with 31 mm Mosaic porcine valve prosthesis, tricuspid valve repair with 30 mm MC3 band, coronary artery bypass grafting 1 with reverse greater saphenous vein graft to the obtuse marginal coronary artery, endovascular vein harvest of the left greater saphenous vein, epi-aortic ultrasound, closure of the left atrial appendage, closure of atrial septal defect. Postoperative acute blood loss anemia and thrombocytopenia, expected given hemodilution and cardiopulmonary bypass pump. Coagulopathy, unexpected, last coumadin dose was on 07/22/21. Right pleural effusion, expected due to his history of preoperative right pleural effusion with history of 4 previous thoracentesis. Status post placement of right-sided pigtail catheter by interventional radiology. Leukocytosis, afebrile, sputum positive for Klebsiella pneumoniae. Altered mental status after surgery due to delirium from lack of sleep, resolved Patient is seen in follow-up today 08/13/2021 at his bedside in the intensive care unit. Currently sitting up to bedside chair, is awake, alert, oriented 3 and is in no acute distress. His night nurse reports that he was quite restless throughout the night and did not sleep much. The patient denies any complaints of shortness of breath although was complaining of some pain to his right pigtail chest tube insertion site. He rates his pain 3F 10 on the pain scale. The patient remains hemodynamically stable and is currently on no inotropic pressure support. Oxygen saturation are 95% on 8 L high flow nasal cannula and he continues to achieve 1000 mL on his incentive spirometry with much encouragement. The patient reports that he ambulated in the intensive care unit hallway yesterday 2-3 times with assistance from nursing and physical therapy staff. Laboratory results and chest x-ray results reviewed. Right chest pigtail catheter remains in place to low continuous wall suction -20 cm H2O. No air leak is present. Interventional radiology change the dressing to the right chest pigtail catheter yesterday 08/12/2021. Right chest pigtail catheter draining thin serous drainage with 80 mL output in the last 8 hours and 190 mL output in the last 24 hours. Left pleural chest tube remains in place to low continuous wall suction -20 cm H2O. No air leak is present. Draining thin serous drainage with 140 mL output in the last 8 hours and 210 mL output in the last 24 hours. Objective - Vital Signs Vital signs: Vital Signs Temp 96.8 F L 08/13/21 04:00 Pulse 67 08/13/21 07:00 Resp 20 08/13/21 07:00 BP 97/64 08/13/21 07:00 Pulse Ox 92 L 08/13/21 07:00 Intake & Output 08/12/21 08/13/21 08/13/21 18:59 06:59 18:59 Intake Total 1050.0 290 250 Output Total 470 760 Balance 580.0 -470 250 Weight 72.8 kg Intake: IV 50.0 50 Cefepime 1 gm In Sodium 50.0 50 Chloride 0.9% 50 ml @ 12. 5 mls/hr IVPB Q12HR [facility] Rx#:[id number] Oral 1000 240 250 Output: Chest Tube Drainage 220 160 L pleural 100 100 Right Posterior Chest 120 60 Drainage [address] 140 Right Posterior 260 Urine 250 200 Other: Voiding Method Bedside Commode Toilet Urinal # Voids 1 1 # Bowel Movements 1 1 ABP, PAP, CO, CI - Last Documented Arterial Blood Pressure 119/35 Pulmonary Artery Pressure 35/28 Cardiac Output 5 Cardiac Index 2.7 - Exam CONSTITUTIONAL: Sitting up to the bedside chair in the intensive care unit, appears restless, cooperative, and is in no apparent acute distress. HEENT: Neck is supple, no JVD, no lymphadenopathy. RESPIRATORY: Lungs sounds with essentially clear throughout, diminished to his bilateral bases with few scattered crackles to his left lower lobe. Respirations are symmetrical and nonlabored. Currently on 8 L high flow nasal cannula, oxygen saturations 95%. Able to achieve 1000 mL on his incentive spirometry. Strong cough. CARDIOVASCULAR: Irregular rhythm and controlled rate. S1 and S2 present, negative for S3, gallop or murmur. Sternum is stable. Palpable peripheral pulses bilaterally. No calf pain or tenderness noted. Heart hugger in place with patient demonstrating appropriate use with encouragement. Knee-high SUMI hose and sequential compression devices in place to his bilateral lower extr emities. Bedside telemetry showing atrial fibrillation with occasional paced rhythm heart rate in the 60s. +2 edema to his bilateral lower extremities. GASTROINTESTINAL: Abdomen soft, nontender, and slightly distended. Active bowel sounds present 4 quadrants. Tolerating diet. No guarding or rigidity. Bowel movement yesterday 08/12/2021. GENITOURINARY: Continues to void. INTEGUMENTARY: Skin is warm and dry with no evidence of clubbing or cyanosis. Midline sternal incision clean dry and well approximated, covered with dry intact dressing. Left lower extremity EVH site well approximated without redness or drainage. Dressing to his right pleural chest tube with some scant serous draining some surrounding his tube. NEUROLOGIC: Cranial nerves II through XII intact. No focal deficits. MUSKULOSKELETAL: Able to move all extremities, strength equal bilaterally, generalized weakness. PSYCHIATRIC: Alert and oriented 3, appropriate affect. Episodes of restlessness. INVASIVE LINES AND TUBES: Right pleural pigtail catheter is in place to low continuous wall suction at -20 cm H2O. No air leak is present. Draining thin serosanguineous drainage with 80 mL output in the last 8 hours and 190 mL output in the last 24 hours. Left pleural chest tube in place to low continuous wall suction -20 cm H2O. No air leak is present. Draining thin serosanguineous drainage with 140 mL output in the last 8 hours and 210 mL output in the last 24 hours. - Allied health notes Allied health notes reviewed: nursing - Labs CBC & Chem 7: 08/13/21 05:31 08/13/21 05:31 Labs: Abnormal Lab Results - Last 24 Hours (Table) 08/12/21 08/12/21 08/12/21 Range/Units 07:18 07:18 07:18 WBC 13.2 H (3.8-10.6) k/uL RBC 2.66 L (4.30-5.90) m/uL Hgb 8.5 L (13.0-17.5) gm/dL Hct 27.9 L (39.0-53.0) % MCV 104.9 H (80.0-100.0) fL MCHC 30.4 L (31.0-37.0) g/dL RDW 21.5 H (11.5-15.5) % Neutrophils # 11.8 H (1.3-7.7) k/uL Lymphocytes # 0.3 L (1.0-4.8) k/uL Macrocytosis Marked A PT (9.0-12.0) sec INR (<1.2) Sodium 133 L (137-145) mmol/L Potassium (3.5-5.1) mmol/L Carbon Dioxide 21 L (22-30) mmol/L BUN 119 H* (9-20) mg/dL Creatinine 2.80 H (0.66-1.25) mg/dL Glucose 130 H (74-99) mg/dL POC Glucose (mg/dL) (75-99) mg/dL Calcium 8.2 L (8.4-10.2) mg/dL Iron 31 L (65-175) ug/dL % Saturation 10.91 L (15.00-50.00) Alkaline Phosphatase (38-126) U/L Total Protein (6.3-8.2) g/dL Albumin (3.5-5.0) g/dL 08/12/21 08/12/21 08/12/21 Range/Units 07:18 11:37 16:09 WBC (3.8-10.6) k/uL RBC (4.30-5.90) m/uL Hgb (13.0-17.5) gm/dL Hct (39.0-53.0) % MCV (80.0-100.0) fL MCHC (31.0-37.0) g/dL RDW (11.5-15.5) % Neutrophils # (1.3-7.7) k/uL Lymphocytes # (1.0-4.8) k/uL Macrocytosis PT 17.0 H (9.0-12.0) sec INR 1.7 H (<1.2) Sodium (137-145) mmol/L Potassium (3.5-5.1) mmol/L Carbon Dioxide (22-30) mmol/L BUN (9-20) mg/dL Creatinine (0.66-1.25) mg/dL Glucose (74-99) mg/dL POC Glucose (mg/dL) 173 H 233 H (75-99) mg/dL Calcium (8.4-10.2) mg/dL Iron (65-175) ug/dL % Saturation (15.00-50.00) Alkaline Phosphatase (38-126) U/L Total Protein (6.3-8.2) g/dL Albumin (3.5-5.0) g/dL 08/12/21 08/13/21 08/13/21 Range/Units 20:06 05:31 05:31 WBC 13.8 H (3.8-10.6) k/uL RBC 2.79 L (4.30-5.90) m/uL Hgb 8.7 L (13.0-17.5) gm/dL Hct 29.4 L (39.0-53.0) % MCV 105.3 H (80.0-100.0) fL MCHC 29.5 L (31.0-37.0) g/dL RDW 21.1 H (11.5-15.5) % Neutrophils # 12.3 H (1.3-7.7) k/uL Lymphocytes # 0.3 L (1.0-4.8) k/uL Macrocytosis Marked A PT (9.0-12.0) sec INR (<1.2) Sodium 134 L (137-145) mmol/L Potassium 5.2 H (3.5-5.1) mmol/L Carbon Dioxide (22-30) mmol/L BUN 126 H* (9-20) mg/dL Creatinine 2.84 H (0.66-1.25) mg/dL Glucose 127 H (74-99) mg/dL POC Glucose (mg/dL) 228 H (75-99) mg/dL Calcium 8.3 L (8.4-10.2) mg/dL Iron (65-175) ug/dL % Saturation (15.00-50.00) Alkaline Phosphatase 129 H (38-126) U/L Total Protein 6.1 L (6.3-8.2) g/dL Albumin 3.0 L (3.5-5.0) g/dL 08/13/21 08/13/21 Range/Units 05:31 07:38 WBC (3.8-10.6) k/uL RBC (4.30-5.90) m/uL Hgb (13.0-17.5) gm/dL Hct (39.0-53.0) % MCV (80.0-100.0) fL MCHC (31.0-37.0) g/dL RDW (11.5-15.5) % Neutrophils # (1.3-7.7) k/uL Lymphocytes # (1.0-4.8) k/uL Macrocytosis PT 20.5 H (9.0-12.0) sec INR 2.0 H (<1.2) Sodium (137-145) mmol/L Potassium (3.5-5.1) mmol/L Carbon Dioxide (22-30) mmol/L BUN (9-20) mg/dL Creatinine (0.66-1.25) mg/dL Glucose (74-99) mg/dL POC Glucose (mg/dL) 179 H (75-99) mg/dL Calcium (8.4-10.2) mg/dL Iron (65-175) ug/dL % Saturation (15.00-50.00) Alkaline Phosphatase (38-126) U/L Total Protein (6.3-8.2) g/dL Albumin (3.5-5.0) g/dL Microbiology - Last 24 Hours (Table) 08/06/21 16:58 Blood Culture - Final Blood No Growth after 144 hours 08/06/21 17:04 Blood Culture - Final Blood No Growth after 144 hours - Imaging and Cardiology Chest x-ray: report reviewed, image reviewed Assessment and Plan Assessment: 1. Mitral valve regurgitation, history of MitraClip in 2019, status post post mitral valve replacement 2. Tricuspid valve regurgitation, status post tricuspid valve repair 3. Coronary artery disease with previous myocardial infarction and PCI, status post 1 vessel CABG 4. History of hypertension, currently hypotensive on levo and dopamine 5. Chronic atrial fibrillation on Coumadin for anticoagulation status post cardioversion, status post closure of the left atrial appendage 6. Sick sinus syndrome status post [facility] permanent pacemaker placement in 2017 7. Chronic systolic heart failure 8. Atrial septal defect status post closure 9. Chronic kidney disease stage IIIB with a baseline creatinine of 1.6-1.7 10. Previous tobacco dependence 11. Severe restrictive lung disease, preoperative FEV1 47% of predicted 12. Recurrent right-sided pleural effusion, patient had right sided thoracentesis twice in 2019 and twice in 2020, status post right chest pigtail catheter placement by interventional radiology 13. Obstructive sleep apnea 14. Remote history of pneumonia 15. Family history of premature coronary artery disease 16. Postoperative acute blood loss anemia and thrombocytopenia, expected 17. Coagulopathy, unexpected and resolved 18. Leukocytosis, elevated pro-calcitonin, sputum culture positive for Klebsiella pneumoniae Plan: 1. Continue low-dose aspirin, statin, and metoprolol tartrate. Metoprolol tartrate has hold parameters. 2. Hold Coumadin today, will monitor daily PT/INR. Obtain consent for right chest Pleurx catheter placement tentatively scheduled for tomorrow 08/14/2021. 3. Wean O2 as tolerated. Encourage incentive spirometry use 10 times every hour while awake. Bronchodilators per pulmonology. 4. Increase activity as tolerated. PT/OT/cardiac rehab following. 5. Will monitor daily labs and chest x-rays. Antibiotic management per pulmonology. Diuresis management per nephrology. Nephrology ordered Bumex 1 mg IV 1 now and Bumex 1 mg at 4 PM today. 6. GI/DVT prophylaxis. 7. Insulin management per primary care service. Patient is not diabetic, preoperative hemoglobin A1c 5.8% 8. Pain control per current medication regimen. Avoid narcotics. 9. Left pleural chest tube and right pleural pigtail catheter removed without incident. 10. Strict accurate intake and output. Daily weights. 11. Encourage oral intake, encourage supplements to improve nutrition. 12. Discharge planning in progress. Anticipate discharge to [facility] once able to remove chest tubes. 13. Patient's diet was changed yesterday to a heart healthy pured diet due to complaints of a sore mouth. 14. More recommendations to follow based on patient's clinical course. Time with Patient: Greater than 30
--- NOTE | 2021-08-13 10:45 | P.PN ---
Subjective Progress Note Date: 08/13/21 The patient is seen today 08/12/2021 in follow-up in the intensive care unit. He is postoperative day #15 above mitral valve replacement, tricuspid valve repair and coronary artery bypass grafting times one. He had had issues with recurrent right-sided pleural effusion and is status post right-sided pigtail catheter in place. Proximal main 400 ML's of serosanguineous fluid drained overnight. Left-sided chest tube remains in place with an another 200 ML's of serosanguineous fluid drained. He is requiring 6 L of high flow nasal cannula to maintain O2 saturations in the 90s. Chest x-ray shows improvement in the pleural effusions. There is still bilateral opacities and some interstitial changes consistent with congestive heart failure. Moderate cardiomegaly. He is alert and oriented today. He still has complaints of a sore mouth. His appetite has been poor. Current cardiac rhythm is paced. Urine cultures revealed no growth. Blood cultures reveal no growth. Sputum culture from 10/2021 was positive for Klebsiella pneumoniae. White count 13.2. Hemoglobin 8.5. Platelets 261. Sodium 133. Potassium 4.8. Bicarb 21. BUN 119. Creatinine 2.80. Glucose 138. He is status post 2 units of packed red blood cells, 4 units of fresh frozen plasma and 2 units of platelets this admission. He is continued on nystatin swish and swallow, bronchodilators, heparin for DVT prophylaxis. Remains on Bumex. Currently in a -125 ML balance. Patient is seen today 08/13/2021 in follow-up in the intensive care unit. He is postoperative day #16. He is currently resting fairly comfortably in bed. He is requiring 10 L high flow nasal cannula to maintain O2 saturations in the low 90s. His bilateral chest tubes have been removed. This morning chest x-ray revealed loculated right costophrenic angle pneumothorax. Minimal right apical pneumothorax. Evidence of cardiomegaly with prominent pulmonary vascular congestion. Previous sputum had been positive for Klebsiella pneumoniae. White count 13.8. Hemoglobin 8.7. Platelets 242. INR 2.0. Sodium 134. Potassium 5.2. BUN 126. Creatinine 2.4. He is continued on DuoNeb inhalations, IV Bumex, antibiotics in the form of cefepime. He'll also be trialed on BiPAP 04/07 and titrate the FiO2. He is continued on Protonix for GI prophylaxis. His appetite has improved on a pured diet. He seems to tolerate that better. Less mouth discomfort. Objective - Vital Signs Vital signs: Vital Signs Temp 96.5 F L 08/13/21 08:00 Pulse 70 08/13/21 09:00 Resp 26 H 08/13/21 09:00 BP 100/67 08/13/21 09:00 Pulse Ox 88 L 08/13/21 09:00 Intake & Output 08/12/21 08/13/21 08/13/21 18:59 06:59 18:59 Intake Total 1050.0 290 262.5 Output Total 470 760 200 Balance 580.0 -470 62.5 Weight 72.8 kg Intake: IV 50.0 50 12.5 Cefepime 1 gm In Sodium 50.0 50 12.5 Chloride 0.9% 50 ml @ 12. 5 mls/hr IVPB Q12HR [facility] Rx#:[id number] Oral 1000 240 250 Output: Chest Tube Drainage 220 160 L pleural 100 100 Right Posterior Chest 120 60 Drainage [address] 140 70 Right Posterior 260 130 Urine 250 200 Other: Voiding Method Bedside Commode Toilet Urinal # Voids 1 1 # Bowel Movements 1 1 ABP, PAP, CO, CI - Last Documented Arterial Blood Pressure 119/35 Pulmonary Artery Pressure 35/28 Cardiac Output 5 Cardiac Index 2.7 - Exam CONSTITUTIONAL: A very pleasant 81-year-old male patient, sitting up to the bedside chair in the intensive care unit, comfortable, cooperative, and is in mild respiratory distress. Currently on 10 L high flow nasal cannula. HEENT: Neck is supple, no JVD, no lymphadenopathy. RESPIRATORY: Lungs sounds with bilateral scattered rhonchi, diminished bilateral bases, right greater than left. Respirations are symmetrical and nonlabored. Currently on 10 L high flow nasal cannula, oxygen saturations 88%. Able to achieve more than 1000 MLS on the incentive spirometer. Bilateral chest tubes have been removed CARDIOVASCULAR: Regular rhythm and rate. S1 and S2 present, negative for S3, gallop or murmur. Sternum is stable. Palpable peripheral pulses bilaterally. No calf pain or tenderness noted. Heart hugger in place with patient demonstrating appropriate use with encouragement. Knee-high SUMI hose and sequential compression devices in place to his bilateral lower extremities. Bedside telemetry showing paced rhythm at 60 BPM. GASTROINTESTINAL: Abdomen soft, nontender, distended. Active bowel sounds present 4 quadrants. Tolerating diet but poor appetite. No guarding or rigidity. GENITOURINARY: Continues to void. Urine output is adequate for now. INTEGUMENTARY: Skin is warm and dry with no evidence of clubbing or cyanosis. Midline sternal incision clean dry and well approximated, covered with dry intact dressing. Left lower extremity EVH site well approximated without redness or drainage. NEUROLOGIC: Cranial nerves II through XII intact. No focal deficits. MUSKULOSKELETAL: Able to move all extremities, strength equal bilaterally, generalized weakness. PSYCHIATRIC: Alert and oriented 3, appropriate affect. - Labs CBC & Chem 7: 08/13/21 05:31 08/13/21 05:31 Labs: Abnormal Lab Results - Last 24 Hours (Table) 08/12/21 08/12/21 08/12/21 Range/Units 07:18 11:37 16:09 WBC (3.8-10.6) k/uL RBC (4.30-5.90) m/uL Hgb (13.0-17.5) gm/dL Hct (39.0-53.0) % MCV (80.0-100.0) fL MCHC (31.0-37.0) g/dL RDW (11.5-15.5) % Neutrophils # (1.3-7.7) k/uL Lymphocytes # (1.0-4.8) k/uL Macrocytosis PT (9.0-12.0) sec INR (<1.2) Sodium (137-145) mmol/L Potassium (3.5-5.1) mmol/L BUN (9-20) mg/dL Creatinine (0.66-1.25) mg/dL Glucose (74-99) mg/dL POC Glucose (mg/dL) 173 H 233 H (75-99) mg/dL Calcium (8.4-10.2) mg/dL Iron 31 L (65-175) ug/dL % Saturation 10.91 L (15.00-50.00) Alkaline Phosphatase (38-126) U/L Total Protein (6.3-8.2) g/dL Albumin (3.5-5.0) g/dL 08/12/21 08/13/21 08/13/21 Range/Units 20:06 05:31 05:31 WBC 13.8 H (3.8-10.6) k/uL RBC 2.79 L (4.30-5.90) m/uL Hgb 8.7 L (13.0-17.5) gm/dL Hct 29.4 L (39.0-53.0) % MCV 105.3 H (80.0-100.0) fL MCHC 29.5 L (31.0-37.0) g/dL RDW 21.1 H (11.5-15.5) % Neutrophils # 12.3 H (1.3-7.7) k/uL Lymphocytes # 0.3 L (1.0-4.8) k/uL Macrocytosis Marked A PT (9.0-12.0) sec INR (<1.2) Sodium 134 L (137-145) mmol/L Potassium 5.2 H (3.5-5.1) mmol/L BUN 126 H* (9-20) mg/dL Creatinine 2.84 H (0.66-1.25) mg/dL Glucose 127 H (74-99) mg/dL POC Glucose (mg/dL) 228 H (75-99) mg/dL Calcium 8.3 L (8.4-10.2) mg/dL Iron (65-175) ug/dL % Saturation (15.00-50.00) Alkaline Phosphatase 129 H (38-126) U/L Total Protein 6.1 L (6.3-8.2) g/dL Albumin 3.0 L (3.5-5.0) g/dL 08/13/21 08/13/21 Range/Units 05:31 07:38 WBC (3.8-10.6) k/uL RBC (4.30-5.90) m/uL Hgb (13.0-17.5) gm/dL Hct (39.0-53.0) % MCV (80.0-100.0) fL MCHC (31.0-37.0) g/dL RDW (11.5-15.5) % Neutrophils # (1.3-7.7) k/uL Lymphocytes # (1.0-4.8) k/uL Macrocytosis PT 20.5 H (9.0-12.0) sec INR 2.0 H (<1.2) Sodium (137-145) mmol/L Potassium (3.5-5.1) mmol/L BUN (9-20) mg/dL Creatinine (0.66-1.25) mg/dL Glucose (74-99) mg/dL POC Glucose (mg/dL) 179 H (75-99) mg/dL Calcium (8.4-10.2) mg/dL Iron (65-175) ug/dL % Saturation (15.00-50.00) Alkaline Phosphatase (38-126) U/L Total Protein (6.3-8.2) g/dL Albumin (3.5-5.0) g/dL Microbiology - Last 24 Hours (Table) 08/06/21 16:58 Blood Culture - Final Blood No Growth after 144 hours 08/06/21 17:04 Blood Culture - Final Blood No Growth after 144 hours Assessment and Plan Assessment: 1 Mitral valve regurgitation, status post mitral valve replacement, postoperative day #16 2 Tricuspid valve regurgitation, status post tricuspid valve repair, postoperative day #16 3 Coronary artery disease, status post 1 vessel CABG, postoperative day #16 4 Benign essential hypertension 5 Chronic atrial fibrillation 6 History of sick sinus syndrome and previous pacemaker placement in 2017 7 Chronic systolic congestive heart failure 8 Atrial septal defect post closure 9 Acute on chronic renal failure, baseline creatinine 1.6-1.7 10 Obstructive sleep apnea syndrome 11 Chronic and recurrent right-sided pleural effusion requiring multiple thoracentesis procedures and now he continues to have a pigtail catheter in place. 12 Postoperative acute blood loss anemia and thrombocytopenia, expected 13 Positive sputum for Klebsiella pneumonia, suspect Klebsiella pneumonia tracheobronchitis, on cefepime 14 Poor oral intake Plan: The patient was seen and evaluated Chest x-ray and labs reviewed Bilateral chest tubes removed Remains on IV diuretics Currently on 10 L high flow nasal cannula May trial BiPAP / at 40% FiO2 Remains on cefepime, bronchodilators Continues to work well with the incentive spirometer Appetite better on a pure diet I have personally seen and examined the patient, performed the documentation and the assessment and plan as written. Number of minutes spent on the visit: 10.
[2021-08-13 11:42] LABS: Glucose,Whole Blood 168 mg/dL (75-99)
[2021-08-13] MEDS ORDERED: BUMETANIDE 0.25 MG/ML 4 ML VIAL IVP ONE (16:00)
[2021-08-13 16:54] LABS: Glucose,Whole Blood 162 mg/dL (75-99)
[2021-08-13 20:57] LABS: Glucose,Whole Blood 201 mg/dL (75-99)
[2021-08-13] MEDS: CALCIUM ACETATE 667 MG TAB PO SCH (21:06)
[2021-08-13] MEDS: ATORVASTATIN 40 MG TAB PO SCH (21:07)
[2021-08-14] MEDS: HEPARIN SODIUM,PORCINE/PF 5,000 UNIT/0.5 ML SYRINGE SQ SCH ×4 (00:04→23:10)
[2021-08-14 07:04] LABS: Glucose,Whole Blood 132 mg/dL (75-99)
[2021-08-14] MEDS: INSULIN ASPART (NovoLOG) 100 UNIT/ML VIAL SQ SCH ×4 (07:14→20:33)
[2021-08-14] MEDS: PANTOPRAZOLE 40 MG TABLET PO SCH (07:14)
[2021-08-14] MEDS: IPRATROPIUM-ALBUTEROL 3 ML NEB INHALATION SCH ×4 (07:16→19:44)
[2021-08-14 07:46] LABS: Prothrombin Time 20.1 sec (9.0-12.0)
[2021-08-14 07:51] LABS: Calcium 8.1 mg/dL (8.4-10.2); Potassium 4.3 mmol/L (3.5-5.1)
--- NOTE | 2021-08-14 07:52 | XR ---
EXAMINATION TYPE: XR chest 1V portable DATE OF EXAM: 08/14/2021 Comparison: 08/13/2021 Clinical History: 81-year-old male post cardiac surgery Findings: Median sternotomy wires are present with post-CABG changes. Left anterior chest wall pacemaker genera tor with right ventricular lead. Heart remains enlarged. Hyperinflation. A trace right apical pneumot horax is redemonstrated measuring up to 5 mm at the apex, unchanged. Basilar component appears to hav e decreased in the interval but is replaced by a a small pleural effusion. Extensive patchy opacity r emains in the right mid and lower lung. Background diffuse interstitial opacity. Impression: 1. Redemonstrated right sided pneumothorax. Trace apical component measuring up to 5 mm is unchanged. The basilar component appears to show improvement and is replaced by a small pleural effusion. 2. Continued cardiomegaly and pulmonary vascular congestion. 3. More patchy airspace opacity persists right mid and lower lung.
[2021-08-14 07:58] LABS: Anisocytosis Moderate; Basophils % (A) 0 %; Eosinophils % (A) 0 %; HCT 29.2 % (39.0-53.0); HGB 8.6 gm/dL (13.0-17.5); Hypochromasia Marked; Lymphocytes # (A) 0.3 k/uL (1.0-4.8); Lymphocytes % (A) 2 %; MCH 31.1 pg (25.0-35.0); MCHC 29.6 g/dL (31.0-37.0); MCV 104.8 fL (80.0-100.0); Macrocytosis Marked; Mean Platelet Volume 8.9; Monocytes # (A) 0.7 k/uL (0-1.0); Monocytes % (A) 5 %; Neutrophils # (A) 12.4 k/uL (1.3-7.7); Neutrophils % (A) 91 %; Platelet Count 235 k/uL (150-450); Poikilocytosis Moderate; RBC 2.78 m/uL (4.30-5.90); RDW 20.9 % (11.5-15.5); WBC 13.6 k/uL (3.8-10.6)
--- NOTE | 2021-08-14 09:01 | P.PN ---
Subjective Patient is seen in follow-up for acute kidney injury on chronic kidney disease. Renal function a little better. Received 2 doses of IV Bumex yesterday. Still quite edematous. Good urine output. Denies chest pain. On 8 L nasal cannula. Blood pressure on the lower side but stable. Oral intake fair. Vital signs are stable. General: Awake and alert. No acute distress. HEENT: Head exam is unremarkable. LUNGS: Breath sounds decreased. HEART: Rate and Rhythm are regular. ABDOMEN: Soft, no distention. EXTREMITITES: 2+ edema. Objective - Vital Signs Vital signs: Vital Signs Temp 97.7 F 08/14/21 08:00 Pulse 72 08/14/21 08:00 Resp 15 08/14/21 08:00 BP 107/64 08/14/21 08:00 Pulse Ox 95 08/14/21 08:00 Intake & Output 08/13/21 08/14/21 08/14/21 18:59 06:59 18:59 Intake Total 1120.0 250 Output Total 300 325 125 Balance 820.0 -75 -125 Weight 71.2 kg Intake: IV 150.0 50 Cefepime 1 gm In Sodium 50.0 50 Chloride 0.9% 50 ml @ 12. 5 mls/hr IVPB Q12HR [facility] Rx#:[id number] Sodium Ferric Gluconat- 100 Sucrose 125 mg In Sodium Chloride 0.9% 100 ml @ 100 mls/hr IVPB ONCE ONE Rx#:[id number] Oral 970 200 Output: Urine 300 325 125 Other: Voiding Method Urinal Urinal # Voids 1 1 # Bowel Movements 1 ABP, PAP, CO, CI - Last Documented Arterial Blood Pressure 119/35 Pulmonary Artery Pressure 35/28 Cardiac Output 5 Cardiac Index 2.7 - Labs CBC & Chem 7: 08/14/21 07:00 08/14/21 07:00 Labs: Abnormal Lab Results - Last 24 Hours (Table) 08/13/21 08/13/21 08/13/21 Range/Units 05:31 11:40 16:52 WBC (3.8-10.6) k/uL RBC (4.30-5.90) m/uL Hgb (13.0-17.5) gm/dL Hct (39.0-53.0) % MCV (80.0-100.0) fL MCHC (31.0-37.0) g/dL RDW (11.5-15.5) % Neutrophils # (1.3-7.7) k/uL Lymphocytes # (1.0-4.8) k/uL Macrocytosis PT (9.0-12.0) sec INR (<1.2) Sodium (137-145) mmol/L BUN (9-20) mg/dL Creatinine (0.66-1.25) mg/dL Glucose (74-99) mg/dL POC Glucose (mg/dL) 168 H 162 H (75-99) mg/dL Calcium (8.4-10.2) mg/dL Prealbumin 9.8 L (18.0-42.0) mg/dL 08/13/21 08/14/21 08/14/21 Range/Units 20:55 07:00 07:00 WBC 13.6 H (3.8-10.6) k/uL RBC 2.78 L (4.30-5.90) m/uL Hgb 8.6 L (13.0-17.5) gm/dL Hct 29.2 L (39.0-53.0) % MCV 104.8 H (80.0-100.0) fL MCHC 29.6 L (31.0-37.0) g/dL RDW 20.9 H (11.5-15.5) % Neutrophils # 12.4 H (1.3-7.7) k/uL Lymphocytes # 0.3 L (1.0-4.8) k/uL Macrocytosis Marked A PT (9.0-12.0) sec INR (<1.2) Sodium 136 L (137-145) mmol/L BUN 119 H* (9-20) mg/dL Creatinine 2.60 H (0.66-1.25) mg/dL Glucose 108 H (74-99) mg/dL POC Glucose (mg/dL) 201 H (75-99) mg/dL Calcium 8.1 L (8.4-10.2) mg/dL Prealbumin (18.0-42.0) mg/dL 08/14/21 08/14/21 Range/Units 07:00 07:02 WBC (3.8-10.6) k/uL RBC (4.30-5.90) m/uL Hgb (13.0-17.5) gm/dL Hct (39.0-53.0) % MCV (80.0-100.0) fL MCHC (31.0-37.0) g/dL RDW (11.5-15.5) % Neutrophils # (1.3-7.7) k/uL Lymphocytes # (1.0-4.8) k/uL Macrocytosis PT 20.1 H (9.0-12.0) sec INR 2.0 H (<1.2) Sodium (137-145) mmol/L BUN (9-20) mg/dL Creatinine (0.66-1.25) mg/dL Glucose (74-99) mg/dL POC Glucose (mg/dL) 132 H (75-99) mg/dL Calcium (8.4-10.2) mg/dL Prealbumin (18.0-42.0) mg/dL Assessment and Plan Plan: Assessment: 1. Acute kidney injury secondary to ATN secondary to hemodynamics and acute blood loss anemia. Creatinine a little better at 2.6 today. Nonoliguric. Elevated BUN secondary to acute kidney injury and diuresis. No active bleeding. Not on steroids. 2. Chronic kidney disease stage IIIB with baseline creatinine near 1.6-1.7. 3. Coronary artery disease status post CABG with mitral valve replacement and tricuspid valve repair. 4. Acute blood loss anemia postoperatively status post blood transfusion. On Aranesp. No active bleeding. Iron deficiency noted. 5. Volume overload. 6. Chronic kidney disease mineral bone disease maintained on PhosLo. Phosphorus 5.5 dated 08/09/2021. 7. Metabolic acidosis secondary to acute kidney injury. On oral bicarbonate. Stable. 8. Hypertension with chronic kidney disease. Blood pressure in the lower side but stable. Cortisol level not low. 9. Sputum culture positive for Klebsiella. On antibiotics. Plan: Start Bumex drip. Encouraged oral intake. Continue to monitor renal function and urine output. Maintain IV iron. Possible Pleurx catheter placement today.
--- NOTE | 2021-08-14 09:27 | P.PN ---
Subjective Progress Note Date: 08/14/21 Principal diagnosis: Mitral valve regurgitation, tricuspid valve regurgitation, coronary artery disease. Previous medical history of CAD with previous cardial infarction and PCI, hypertension, chronic atrial fibrillation on Coumadin for anticoagulation status post cardioversion, sick sinus syndrome [employer] permanent pacemaker placement in 2017, chronic systolic heart failure, atrial septal defect status post closure, previous MitraClip in 2019, chronic renal insufficiency, previous tobacco dependence, severe restrictive lung disease, obstructive sleep apnea, recurrent right-sided pleural effusio with previous thoracentesis x 4, remote history of pneumonia, family history of premature coronary artery disease POD #17 mitral valve replacement with 31 mm Mosaic porcine valve prosthesis, tricuspid valve repair with 30 mm MC3 band, coronary artery bypass grafting 1 with reverse saphenous vein graft to the obtuse marginal artery, endovascular vein harvest of the left greater saphenous vein, epi-aortic ultrasound, closure of the left atrial appendage, closure of ASD Postoperative acute blood loss anemia and thrombocytopenia, expected given hemodilution and cardiopulmonary bypass pump Coagulopathy, unexpected, last coumadin dose 07/22/21 Right-sided pleural effusion, expected given history of previous right-sided effusion with thoracentesis 4, status post right-sided pigtail catheter placement by interventional radiology Leukocytosis, afebrile, sputum culture positive for Klebsiella pneumoniae Altered mental status after surgery due to delirium from lack of sleep, resolved The patient was seen and examined this morning sitting up in a recliner in the intensive care unit in no acute distress. He denies any pain other than mouth pain, denies shortness of breath. Currently on 8 L high flow nasal cannula, achieving 1000 mL on his incentive spirometry. Remains in controlled atrial fibrillation, has not received any Lopressor since it was ordered due to hypotension and heart rate in the 60s. Patient remains afebrile. Has ambulated in the hallway. He does appear a bit depressed, was started on Zoloft. Remains on IV cefepime for Klebsiella in his sputum. He was started on IV iron and given IV Bumex yesterday by nephrology. Left pleural chest tube and right pigtail catheter were discontinued yesterday. Patient is currently nothing by [facility] for possible right-sided Pleurx catheter placement today. Objective - Vital Signs Vital signs: Vital Signs Temp 96.7 F L 08/14/21 04:00 Pulse 76 08/14/21 07:16 Resp 18 04/14/22 07:16 BP 104/59 08/14/21 06:00 Pulse Ox 92 L 08/14/21 07:16 Intake & Output 08/13/21 08/14/21 08/14/21 18:59 06:59 18:59 Intake Total 1120.0 250 Output Total 300 325 Balance 820.0 -75 Weight 71.2 kg Intake: IV 150.0 50 Cefepime 1 gm In Sodium 50.0 50 Chloride 0.9% 50 ml @ 12. 5 mls/hr IVPB Q12HR [facility] Rx#:[id number] Sodium Ferric Gluconat- 100 Sucrose 125 mg In Sodium Chloride 0.9% 100 ml @ 100 mls/hr IVPB ONCE ONE Rx#:[id number] Oral 970 200 Output: Urine 300 325 Other: Voiding Method Urinal Urinal # Voids 1 1 # Bowel Movements 1 ABP, PAP, CO, CI - Last Documented Arterial Blood Pressure 119/35 Pulmonary Artery Pressure 35/28 Cardiac Output 5 Cardiac Index 2.7 - Exam CONSTITUTIONAL: Appears comfortable, cooperative, no acute distress RESPIRATORY: Lungs sounds diminished bilaterally. Respirations even, nonlabo red. Currently on 8 L nasal cannula with oxygen saturation 92%. Able to achieve 1000 mL on incentive spirometry. Strong non-productive cough. CARDIOVASCULAR: S1, S2 present. Irregular rate and rhythm, controlled atrial fibrillation on telemetry. Sternum stable. Palpable peripheral pulses b ilaterally. Trace bilateral lower extremity edema present. No calf pain or tenderness noted. Heart hugger in place with patient demonstrating appropriate use. Antiembolism stockings, SCDs present. GASTROINTESTINAL: Abdomen soft, nontender, slightly distended. Active bowel sounds present 4 quadrants. Currently nothing by mouth. Positive bowel movement 08/13/21 GENITOURINARY: Continues to void INTEGUMENTARY: Skin is warm and dry with evidence of good perfusion. Anterior chest incision well approximated. Left lower extremity EVH site well approximated without redness or drainage. NEUROLOGIC: Cranial nerves II through XII intact MUSKULOSKELETAL: Able to move all extremities, strength equal bilaterally but generalized weakness present PSYCHIATRIC: Oriented to person place and time - Labs CBC & Chem 7: 08/14/21 07:00 08/14/21 07:00 Labs: Abnormal Lab Results - Last 24 Hours (Table) 08/13/21 08/13/2122 Range/Units 05:31 07:38 11:40 POC Glucose (mg/dL) 179 H 168 H (75-99) mg/dL Prealbumin 9.8 L (18.0-42.0) mg/dL 08/13/21 08/13/21 08/14/21 Range/Units 16:52 20:55 07:02 POC Glucose (mg/dL) 162 H 201 H 132 H (75-99) mg/dL Prealbumin (18.0-42.0) mg/dL - Imaging and Cardiology Chest x-ray: image reviewed Assessment and Plan Assessment: 1. Mitral valve regurgitation, previous MitraClip in 2019, status post post mitral valve replacement 2. Tricuspid valve regurgitation, status post tricuspid valve repair 3. Coronary artery disease with previous myocardial infarction and PCI, status post 1 vessel CABG 4. History of hypertension 5. Chronic atrial fibrillation on Coumadin for anticoagulation status post cardioversion, status post closure of the left atrial appendage 6. Sick sinus syndrome status post [facility] [facility] permanent pacemaker placement in 2016 7. Chronic systolic heart failure 8. Atrial septal defect status post closure 9. Acute on chronic renal insufficiency stage IIIB, baseline creatinine 1.6-1.7 10. Previous tobacco dependence 11. Severe restrictive lung disease, preoperative FEV1 47% of predicted 12. Recurrent right-sided pleural effusion, patient had right sided thoracentesis twice in 2019 and twice in 2020, status post right-sided pigtail catheter placement by IR 13. Obstructive sleep apnea 14. Remote history of pneumonia 15. Family history of premature coronary artery disease 16. Postoperative acute blood loss anemia and thrombocytopenia, expected 17. Coagulopathy, unexpected 18. Leukocytosis, elevated pro-calcitonin, afebrile, sputum culture positive for Klebsiella pneumoniae 19. Altered mental status after surgery due to delirium from lack of sleep, resolved Plan: 1. Continue low-dose aspirin, statin. Norvasc discontinued by nephrology. Beta shila has been held for every dose ordered due to hypotension, heart rate in the 60s 2. Continue Coumadin, will monitor daily PT/INR. No dose given last night due to possible Pleurx catheter placement today 3. Wean O2 as tolerated. Encourage incentive spirometry use 10 times every hour while awake. Bronchodilators per pulmonology. 4. Increase activity, ambulate minimum 4 times in the hallway daily. PT/OT/cardiac rehab following 5. Will monitor daily labs and x-rays. Abt per pulmonology. Diuresis per nephrology, ordered to start bumex gtt for 24 hours 6. GI/DVT prophylaxis 7. Insulin management per primary care service. Patient is not diabetic, preoperative hemoglobin A1c 5.8% 8. Pain control per current medication regimen. Avoid narcotics 9. Currently nothing by mouth for possible right sided pleurx catheter placement today, will obtain chest CT to evaluate pleural effusion now that chest tubes are out 10. Strict accurate intake and output. Daily weights 11. Encourage oral intake, encourage supplements to improve nutrition. Continue Kools solution oral rinse 12. Discharge planning in progress. Anticipate discharge to [facility] 13. More recommendations to follow based on patient's progress
[2021-08-14] MEDS: BUMETANIDE 10 MG in DEXTROSE 5% IN WATER 60 ML IV SCH ×4 (09:45→23:10)
[2021-08-14] MEDS: SODIUM FERRIC GLUCONAT-SUCROSE 125 MG in SODIUM CHLORIDE 0.9% 100 ML IVPB SCH (10:02)
[2021-08-14] MEDS: methylPREDNISolone SOD SUCCI 40 MG/ML 1 ML VIAL IV SCH ×2 (10:26→20:33)
[2021-08-14] MEDS: CEFEPIME 1 GM in SODIUM CHLORIDE 0.9% 50 ML IVPB SCH ×2 (10:26→20:32)
--- NOTE | 2021-08-14 10:28 | CT ---
EXAMINATION TYPE: CT chest wo con DATE OF EXAM: 08/14/2021 COMPARISON: 08/04/2021 HISTORY: 81-year-old male shortness of breath, Evaluate pleural effusion TECHNIQUE: Contiguous axial scanning of the chest without IV contrast. Coronal and sagittal reconstru ctions performed. CT DLP: 330.4 mGycm Automated exposure control for dose reduction was used. FINDINGS: Left anterior chest wall pacemaker generator with right ventricular lead. Median sternotomy wires and post-CABG clips. Heart remains mildly enlarged without pericardial effusion. Suspect a PFO closure device. Ascending aorta aneurysmal at 4.4 cm, previously measured at 4.3 cm, not significantly changed. Mild atherosclerotic arch calcifications with conventional arch vessel branching anatomy. Mildly aneurysma l upper descending thoracic aorta 3.7 cm. Scattered paratracheal and AP window lymph nodes measuring up to 1.7 and 9 mm, respectively. Some of these are slightly increased in size but are probably reactive. A large caliber to the main right and left pulmonary arteries measuring up to 2.9 and 2.5 cm, respect ively, suggesting underlying pulmonary hypertension. Some mild fat stranding and soft tissue thickening remains deep to the sternum within the anterior me diastinum, likely related to recent postoperative changes. Small amount of air anterior to the heart has resolved. Left-sided chest tube has been removed in the interval. There is some fluid seen on the left thickening the major fissure. Patchy opacity throughout the left lower lobe has increased. There is a moderate ongoing right pleural effusion though size has decreased in the interval. Foci of air within the pleural fluid is also noted. Rounded masslike subpleural opacity posteromedial left base redemonstrated measuring 5.5 cm, not sign ificantly changed. Rounded atelectasis is favored but appropriate follow-up is recommended to ensure stability. Ongoing septal lines right mid lung. Some new patchy groundglass and focal opacity lateral right midl clarence, axial image 36. There is a small right-sided pneumothorax now present measuring up to 1.4 cm at the medial apex. Smal l pneumothorax component is also noted anteriorly at the lung base. Estimated at 5-10%. Small hiatal hernia. Prominent atherosclerotic calcifications throughout the abdominal aorta and visc eral arterial branches. Small inferior splenule. Motion artifact in the upper abdomen. Generalized anasarca change. Bones: Mild anterior spondylosis lower thoracic spine with mild degenerative disc disease. IMPRESSION: 1. CONTINUED MODERATE RIGHT PLEURAL EFFUSION THOUGH DECREASED IN THE INTERVAL COMPARED TO 08/04/2021. T he pleural catheter has been removed in the interval and there are new foci of air within the effusio n as well as a new small right-sided pneumothorax estimated at 5-10%. 2. New ground glass infiltrate lateral right midlung. Correlate to exclude a developing focus of pneu monia. Some developing patchy pulmonary edema is the alternative consideration. 3. Similarly, patchy infiltrate in the left lower lobe has increased. Again, correlate to exclude pne umonia versus patchy pulmonary edema. 4. Redemonstrated rounded masslike subpleural opacity at the right base measuring 5.5 cm. Suspect rou nded atelectasis. 3 month follow-up CT to ensure stability. 5. Several mediastinal lymph nodes have enlarged in the interval measuring up to 1.7 cm now. Suspect a reactive etiology. These can also be reassessed at the 3 month follow-up. 6. Correlate for fluid overload state. There is cardiomegaly with pulmonary arterial hypertension, an d some generalized anasarca change. 7. Ascending aortic aneurysm of 4.4 cm.
[2021-08-14] MEDS: ASPIRIN 81 MG PO SCH (10:37)
[2021-08-14] MEDS: ASCORBIC ACID 500 MG TAB PO SCH (10:37)
[2021-08-14] MEDS: allopurinoL 100 MG TAB PO SCH (10:37)
[2021-08-14] MEDS: SODIUM BICARBONATE TAB 650 MG TAB PO SCH (10:39)
[2021-08-14] MEDS: FERROUS SULFATE 325 MG TAB PO SCH (10:39)
[2021-08-14] MEDS: FOLIC ACID 1 MG TAB PO SCH (10:39)
[2021-08-14 11:19] LABS: Glucose,Whole Blood 141 mg/dL (75-99)
--- NOTE | 2021-08-14 12:24 | P.PN ---
Subjective Progress Note Date: 08/14/21 Principal diagnosis: Postoperative day #17 status post mitral valve replacement, tricuspid valve repair and coronary artery bypass grafting times one reverse saphenous vein graft to obtuse marginal artery This is an 81-year-old white male seen today on follow-up,08/11/2021, patient remains in the ICU, he is now on 4 L nasal cannula, seems to be doing fairly well considering his multiple medical problems continues to have left-sided chest tube in place and a Pleurx catheter on the right side. Draining about 100 mL of serosanguineous fluid in each overnight. Remains empirically on Zosyn. Remains on Zosyn for Klebsiella pneumonia infection, this was cultured from the sputum. Remains in controlled atrial fibrillation. However the patient is very comfortable, and does not seem to be in any distress. He does have intermittent episodes of confusion according to the nurse, but when I saw him today he seems to be quite reasonable. And did not seem to be confused. Chest x-ray showed mostly pleural parenchymal density in the right midlung most likely related to chronic loculated right-sided pleural effusion. Reevaluated today on 08/14/2021, patient remains in the ICU, he remains marginal at best. Patient is developing some congestive heart failure changes noted on the chest x-ray. Continues to have intermittent cough, intermittent wheezing, however there is no fever, no chills, no hemoptysis. He is on 8 L high flow nasal cannula. Achieving about a liter with his incentive spirometer. His atrial fibrillation is well controlled. Has been ambulating in the hallway. Remains on antibiotics in the form of cefepime for Klebsiella in his sputum. Today the patient will be placed on Bumex drip, his left sided chest tube and the right-sided pigtail catheter were removed yesterday. Being considered for Pleurx catheter placement on the right side today. WBC count is 13.6 hemoglobin is 8.6. Electrolytes are normal BUN is 119 creatinine 2.6, improved compared to the last 3 days. Objective - Vital Signs Vital signs: Vital Signs Temp 97.7 F 08/14/21 08:00 Pulse 88 08/14/21 12:11 Resp 18 08/14/21 12:11 BP 107/64 08/14/21 08:00 Pulse Ox 95 08/14/21 08:00 Intake & Output 08/13/21 08/14/21 08/14/21 18:59 06:59 18:59 Intake Total 1120.0 250 Output Total 300 325 125 Balance 820.0 -75 -125 Weight 71.2 kg Intake: IV 150.0 50 Cefepime 1 gm In Sodium 50.0 50 Chloride 0.9% 50 ml @ 12. 5 mls/hr IVPB Q12HR [facility] Rx#:[id number] Sodium Ferric Gluconat- 100 Sucrose 125 mg In Sodium Chloride 0.9% 100 ml @ 100 mls/hr IVPB ONCE ONE Rx#:[id number] Oral 970 200 Output: Urine 300 325 125 Other: Voiding Method Urinal Urinal # Voids 1 1 # Bowel Movements 1 ABP, PAP, CO, CI - Last Documented Arterial Blood Pressure 119/35 Pulmonary Artery Pressure 35/28 Cardiac Output 5 Cardiac Index 2.7 - Exam Physical Exam: Revealed an 81-year-old white male on 8 L high flow nasal cannula in no distress. Head: Atraumatic, normocephalic. HEENT:[Neck is supple.] [No neck masses.] [No thyromegaly.] [No JVD.] Chest: [Symmetrical chest expansion, crackles or rhonchi and wheezes noted bilaterally. Cardiac Exam: Irregular irregular rhythm. [Normal S1 and S2, no S3 gallop, 2/6 systolic murmur thought the precordium. Abdomen: [Soft, nontender, no megaly, no rebound, no guarding, normal bowel sounds.] Extremities: [No clubbing, no edema, no cyanosis.] Neurological Exam: [No focal neurologic deficit.] No gross focal neurologic deficits Psychiatric: Normal mood, affect and normal mental status examination. Skin: No rashes. - Labs CBC & Chem 7: 08/14/21 07:00 08/14/21 07:00 Labs: Abnormal Lab Results - Last 24 Hours (Table) 08/13/21 08/13/21 08/13/21 Range/Units 05:31 16:52 20:55 WBC (3.8-10.6) k/uL RBC (4.30-5.90) m/uL Hgb (13.0-17.5) gm/dL Hct (39.0-53.0) % MCV (80.0-100.0) fL MCHC (31.0-37.0) g/dL RDW (11.5-15.5) % Neutrophils # (1.3-7.7) k/uL Lymphocytes # (1.0-4.8) k/uL Macrocytosis PT (9.0-12.0) sec INR (<1.2) Sodium (137-145) mmol/L BUN (9-20) mg/dL Creatinine (0.66-1.25) mg/dL Glucose (74-99) mg/dL POC Glucose (mg/dL) 162 H 201 H (75-99) mg/dL Calcium (8.4-10.2) mg/dL Prealbumin 9.8 L (18.0-42.0) mg/dL 08/14/21 08/14/21 08/14/21 Range/Units 07:00 07:00 07:00 WBC 13.6 H (3.8-10.6) k/uL RBC 2.78 L (4.30-5.90) m/uL Hgb 8.6 L (13.0-17.5) gm/dL Hct 29.2 L (39.0-53.0) % MCV 104.8 H (80.0-100.0) fL MCHC 29.6 L (31.0-37.0) g/dL RDW 20.9 H (11.5-15.5) % Neutrophils # 12.4 H (1.3-7.7) k/uL Lymphocytes # 0.3 L (1.0-4.8) k/uL Macrocytosis Marked A PT 20.1 H (9.0-12.0) sec INR 2.0 H (<1.2) Sodium 136 L (137-145) mmol/L BUN 119 H* (9-20) mg/dL Creatinine 2.60 H (0.66-1.25) mg/dL Glucose 108 H (74-99) mg/dL POC Glucose (mg/dL) (75-99) mg/dL Calcium 8.1 L (8.4-10.2) mg/dL Prealbumin (18.0-42.0) mg/dL 08/14/21 08/14/21 Range/Units 07:02 11:06 WBC (3.8-10.6) k/uL RBC (4.30-5.90) m/uL Hgb (13.0-17.5) gm/dL Hct (39.0-53.0) % MCV (80.0-100.0) fL MCHC (31.0-37.0) g/dL RDW (11.5-15.5) % Neutrophils # (1.3-7.7) k/uL Lymphocytes # (1.0-4.8) k/uL Macrocytosis PT (9.0-12.0) sec INR (<1.2) Sodium (137-145) mmol/L BUN (9-20) mg/dL Creatinine (0.66-1.25) mg/dL Glucose (74-99) mg/dL POC Glucose (mg/dL) 132 H 141 H (75-99) mg/dL Calcium (8.4-10.2) mg/dL Prealbumin (18.0-42.0) mg/dL Assessment and Plan Assessment: Impression: Mitral valve regurgitation, status post mitral valve replacement, postoperative day #17. Tricuspid valve regurgitation, status post tricuspid valve repair Coronary artery disease, status post 1 vessel CABG, postoperative day #17. Benign essential hypertension Chronic atrial fibrillation History of sick sinus syndrome and previous pacemaker placement in 2017 Chronic systolic congestive heart failure Atrial septal defect post closure Acute on chronic renal failure, baseline creatinine 1.6-1.7, being followed by nephrology. Obstructive sleep apnea syndrome Chronic and recurrent right-sided pleural effusion requiring multiple thoracentesis procedures and now he continues to have a pigtail catheter in place. The pigtail catheter was removed on 08/13/21. Postoperative acute blood loss anemia and thrombocytopenia, expected Positive sputum for Klebsiella pneumonia, suspect Klebsiella pneumonia tracheobronchitis, on cefepime Recommendation: Continue present supportive care measures Continue cefepime. Continue to monitor in the ICU for now. Continue ambulation. Continue incentive spirometry Being considered for Bumex drip, Being considered for Pleurx catheter placement by thoracic surgery. Prognosis remains guarded. Today we will add more bronchodilators and a small dose of steroids/methylprednisolone. 40 mg IV push every 12 hours for his pulmonary symptoms. We'll continue to follow Time with Patient: Less than 30
[2021-08-14] MEDS ORDERED: SODIUM CHLORIDE 0.9% 500 ML 500 ML IV ONE (13:08)
[2021-08-14] MEDS ORDERED: KETAMINE 10 MG/ML 20 ML VIAL ONE (13:09)
[2021-08-14] MEDS ORDERED: MIDAZOLAM 2 MG/2 ML VIAL ONE (13:09)
[2021-08-14] MEDS ORDERED: LIDOCAINE 1% INJ 10MG/ML (10 ML MDV) SQ ONE ×2 (13:25)
[2021-08-14] MEDS: METOPROLOL TARTRATE 12.5 MG TAB PO SCH ×2 (14:00→20:33)
[2021-08-14] MEDS: MAG HYDROX/AL HYDROX/SIMETH 30 ML, LIDOCAINE VISCOUS 2% 30 ML, NYSTATIN 100,000 UNIT/ML... PO SCH ×9 (14:01→23:10)
[2021-08-14] MEDS: SERTRALINE 50 MG TAB PO SCH (14:01)
--- NOTE | 2021-08-14 14:21 | XR ---
EXAMINATION TYPE: XR chest 1V portable DATE OF EXAM: 08/14/2021 Comparison: 08/14/2021 Clinical History: 81-year-old male post pleurX placement Findings: Left anterior chest wall pacemaker generator with right ventricular lead. Median sternotomy wires are present. Right basilar Pleurx catheter has been placed in the interval. Note that one of the sidehol es outside of the thoracic cage. Small 6 mm right apical pneumothorax versus 5 mm, previously. Small right effusion remains. Patchy opacity right mid and lower lung. Mild interstitial prominence shows s light improvement. Heart remains enlarged. Impression: 1. Mild cardiomegaly. Possible mild pulmonary vascular congestion which shows some improvement from p rior. 2. Interval placement of right-sided pleural catheter. Note that one of the catheter sideholes is out side of the pleural space as indicated by the arrow. 3. Residual small right effusion. Trace right apical pneumothorax at 6 mm versus 5 mm, previously. 4. Patchy opacity right mid and lower lung is unchanged.
--- NOTE | 2021-08-14 15:29 | P.OP ---
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 He has chronic bilateral pleural effusions with trapping of the right lung. He had bilateral chest tubes after surgery. He has persistent right pleural effusion with hypoxemia and Pleurx catheter placement for chronic drainage of the right persistent pleural effusion was indicated. Operative Findings: 400 mL of serous fluid was drained from the right chest. Fluoroscopy demonstrated good placement of the Pleurx catheter within the basal portion of the right pleural space. Description of Procedure: Patient was brought to the operating room and placed supine on the operating table. Head of the bed was elevated 30. The right lower chest and upper abdomen were sterilely prepped and draped. Pleural fluid was identified by percussion and 2% lidocaine was used for anesthesia. Pleural space was punctured with an 18-gauge needle and clear serous fluid obtained. Guidewire was threaded and under fluoroscopic guidance into the basilar portion of the right pleural space. Needle was removed. The entry site was enlarged with an 11 blade and a counterincision was made in the right upper quadrant under lidocaine anesthesia. Pleurx catheter was tunneled from the counterincision to the entry site and the cup secured just under the skin at the exit site. Introducer and dilator were placed over the guidewire under fluoroscopic guidance and through the introducer sheath Pleurx catheter was introduced into the right pleural space. Fluoroscopic guidance was used and confirmed presence of the Pleurx catheter in the right basal pleural space. Purse catheter was connected to suction. Entry site was closed with 4-0 Vicryl. Purse catheter was secured at the exit site with 2-0 silk. Purse catheter was capped and placed in a standard dressing. The entry site was dressed with skin glue and a Band-Aid. Patient tolerated the procedure well.
[2021-08-14 16:45] LABS: Glucose,Whole Blood 158 mg/dL (75-99)
[2021-08-14] MEDS ORDERED: WARFARIN 1 MG TAB PO ONE (18:00)
--- NOTE | 2021-08-14 19:07 | PN ---
PROGRESS NOTE This gentleman underwent mitral valve replacement with a tissue valve and tricuspid valve repair with a ring and also had single-vessel bypass to circumflex. Post- procedure course has been somewhat slow. He has persistent pleural effusions. Chest tube is out, but we are considering doing some pleurodesis. Patient at this time feels somewhat fatigued. He is in atrial fibrillation with back-up pacemaker. He is somehow bloated; seems to be increase in volume. Nephrology has seen him and Dr. Brunson is advising a Bumex drip. From cardiac standpoint, I have no other new suggestions. Dr. Collado will probably perform a PleurX catheter placement today. The right pleural space seems to have a persistent drainage. On physical exam there are no new significant findings. We will continue to follow. Prognosis remains guarded. MMODL / IJN: [id number] /
[2021-08-14] MEDS: SYMBICORT 160-4.5 MCG INHALER INHALATION SCH (19:44)
[2021-08-14 20:23] LABS: Glucose,Whole Blood 254 mg/dL (75-99)
[2021-08-14] MEDS: ATORVASTATIN 40 MG TAB PO SCH (20:33)
[2021-08-14] MEDS: CALCIUM ACETATE 667 MG TAB PO SCH (20:33)
--- NOTE | 2021-08-14 20:37 | P.PN ---
Subjective Progress Note Date: 08/14/21 This is a 81-year-old male patient who is currently postop day 2 from mitral valve replacement, tricuspid valve repair and single-vessel bypass grafting SVG to obtuse marginal. Patient has a past medical history of valvular heart disease with symptoms including shortness of breath with exertion and unable to perform many of his activities of daily living. Additional medical history includes coronary artery disease with previous cardiac infarction and PCI, hypertension, chronic atrial fibrillation on Coumadin for and configuration status post cardioversion, sick sinus syndrome with [facility] permanent pacemaker placement 2016, chronic systolic heart failure, atrial septal defect status post closure with previous mitral clip in 2019 at [facility], chronic renal insufficiency, obstructive sleep apnea, reoccurring right-sided pleural effusions with previous thoracentesis 4. At this time patient is currently resting comfortably in the intensive care unit. Patient was successfully extubated per protocol currently on IV dopamine and Levophed. INR elevated at 6.5. hemoglobin 6.6. 1 unit PRBCs, 2 units of FFP have been ordered per surgical services INR recheck ordered for noon. Chest x-ray the same showing cardiomegaly with moderate to large right and small sized bilateral pleural effusion collection and/or effusions with mild to moderate central vascular congestion and bibasilar opacities favoring atelectasis along with left-sided chest tubes are redemonstrated. Per surgical services possible plans for Pleurx catheter placement. This time patient is resting comfortably in chair patient remains on high flow oxygen. Blood sugars have remained stable per nursing staff will transition off insulin drip to sliding scale coverage. Cardiology and critical care services are following. On 07/31/2021 patient having intermittent episodes of confusion. INR improving to 2.3. Hemoglobin 7.6. Chest tubes remain in place. Cardiology and critical care services are following. Patient remains on high flow nasal cannula. Current vitals heart rate 80, respiratory rate 16, blood pressure 104/51 On 08/01/2021 patient is more alert currently resting comfortably in chair. Sitter is at bedside. Patient remains on high flow nasal cannula. Patient remains on IV Bumex. Cordis, chest tube and right pigtail catheter all remain in place. On 08/02/2021 patient was seen and examined in the ICU he is alert and oriented 3 in no apparent distress, sitting up in a chair, he is maintained on high flow oxygen, with FiO2 of 45, pulse ox is 93% temperature 97.2 pulse 80 respiration 22 blood pressure 129/46, he denies any fever or chills no headache or dizziness no chest pain no shortness of breath no cough no nausea no vomiting no abdominal pain no diarrhea and no urinary symptoms, chest tube is still in place, he is maintained on Bumex 2 mg IV every 8 hours On 08/03/2021 patient remains in the intensive care unit. Patient is alert and oriented sitting comfortably in chair. Discussed case with surgical team Bumex has been DC'd. Creatinine 2.25 bun 70. Chest tube remains in place. Patient remains on high flow 60%. This time patient denies chest pain or shortness [place] th. Patient denies diarrhea. Patient denies any urinary burning or frequency On 08/04/2021 patient was seen and examined, in the ICU, he is alert and oriented 3 in no apparent distress, there is no fever or chills no headache or dizziness no chest pain no shortness of breath no cough no nausea or vomiting no abdominal pain no diarrhea and no urinary symptoms he still has a left sided chest to and he is complaining of discomfort at the site of the 2 he is maintained on oxygen at 8 L nasal cannula his pulse ox is 96% blood pressure 126/62 pulse 63 respiration 24 temperature 97.9 On 08/05/2021 patient was seen and examined in the ICU he is alert and oriented 3 in no apparent distress he is sitting up in a chair he is complaining of discomfort in the left chest at the site of the chest to he is also complaining of pain when coughing otherwise he denies any complaints at this time his vital exam reveals a temperature of 98 pulse 65 respiration 30 blood pressure 136/66 pulse ox 98% on oxygen 3 L nasal cannula, white blood count is 14.4 hemoglobin 8.0 platelet count 192 INR 1.2 BUN 85 creatinine 2.2 On 08/06/2021 patient remains in the intensive care unit. Patient is alert and oriented 3. White blood cell increasing to 15.3 per. Per critical care services will check UA and monitor fever pattern no need for antibiotic treatment at this time. Creatinine 2.53 and bun 89. Nephrology services are following. Current vitals temp 97.6, heart rate 64, pulse ox 94% on 3 L, blood pressure 166/57 08/07/2021 patient remains in the intensive care unit confusion has improved. Nephrology services are following. Patient remains with significant output from chest tubes. Current vitals temp 97.9, respiratory rate 22, blood pressure 124/60 to 98% on 5 L On 08/08/2021 patient is alert and oriented 3 currently sitting up in the care unit. Per nursing staff patient has been up ambulating with assistance. Still having significant output from chest tubes. Patient also getting treated for oral thrush. Discharge planning is in progress patient will likely need inpatient rehab upon discharge On 08/09/2021 patient was seen and examined in the ICU, he is sitting up in a chair, he is complaining of discomfort in his mouth due to thrush, he also has occasional cough otherwise he denies any complaints there is no fever or chills no headache or dizziness, no chest pain or shortness of breath no nausea or vomiting no abdominal pain no diarrhea no blood in the stools no burning with urination no frequency or urgency and no hematuria On 08/10/2021 patient remains in the intensive care unit. Currently working with physical therapy. Patient has positive sputum culture. Creatinine 2.7 bun 110. Nephrology services are following. Patient still having significant outpu t from chest tubes. Discussed case with cardiothoracic surgery no plans to remove chest tubes at this time. On 08/11/2021 patient was seen and examined in the ICU, he is sitting up in a chair, he is feeling somewhat better, he is complaining of discomfort in his mouth due to thrush, he also has occasional cough otherwise he denies any complaints there is no fever or chills no headache or dizziness, no chest pain or shortness of breath no nausea or vomiting no abdominal pain no diarrhea no blood in the stools no burning with urination no frequency or urgency and no hematuria. On 08/12/2021 patient remains in the intensive care unit. Nephrology services are following. Patient remains on IV antibiotics. Patient still draining significant amount from chest tube. Diet and ambulation encouraged. At this time patient denies chest pain or shortness of breath. Patient denies nausea vomiting or diarrhea. Patient denies any urinary burning or frequency On 08/13/2021 patient is alert and oriented 3 currently sitting up in chair. Patient remains in the intensive care unit chest tubes in place. White blood cell 13.8, hemoglobin 8.7, creatinine 2.84 and bun 126. Patient remains on 8 L nasal cannula. Current vitals temp 96.5, heart rate 70, her story rate 23, blood pressure 100/67 patient satting 90% on 8 L On 08/14/2021, patient was seen and examined in the ICU he is alert and oriented 3 in no apparent distress, chest tube is still in place, patient is scheduled for a right Pleurx catheter placement today, he is complaining of chest discomfort and shortness of breath otherwise he denies any complaints Objective - Vital Signs Vital signs: Vital Signs Temp 97.7 F 08/14/21 08:00 Pulse 88 08/14/21 12:11 Resp 18 08/14/21 12:11 BP 107/64 08/14/21 08:00 Pulse Ox 95 08/14/21 08:00 Intake & Output 08/13/21 08/14/21 08/14/21 18:59 06:59 18:59 Intake Total 1120.0 250 Output Total 300 325 125 Balance 820.0 -75 -125 Weight 71.2 kg Intake: IV 150.0 50 Cefepime 1 gm In Sodium 50.0 50 Chloride 0.9% 50 ml @ 12. 5 mls/hr IVPB Q12HR PHIL Rx#:[id number] Sodium Ferric Gluconat- 100 Sucrose 125 mg In Sodium Chloride 0.9% 100 ml @ 100 mls/hr IVPB ONCE ONE Rx#:[id number] Oral 970 200 Output: Urine 300 325 125 Other: Voiding Method Urinal Urinal # Voids 1 1 # Bowel Movements 1 ABP, PAP, CO, CI - Last Documented Arterial Blood Pressure 119/35 Pulmonary Artery Pressure 35/28 Cardiac Output 5 Cardiac Index 2.7 - Exam In general patient is alert and oriented x 3 in no distress HEENT head normocephalic and atraumatic Neck is supple no JVD no goiter no lymphadenopathy no carotid bruit Chest examination reveals a scattered crackles in both lung sousa no wheezing Cardiac exam reveals regular heart sounds S1 and S2 no gallops no murmurs Abdomen is soft nontender no organomegaly with normal bowel sounds Extremity exam reveals no edema no cyanosis or clubbing Neurological examination reveals no gross focal deficits - Labs CBC & Chem 7: 08/14/21 07:00 08/14/21 07:00 Labs: Abnormal Lab Results - Last 24 Hours (Table) 08/13/21 08/13/21 08/13/21 Range/Units 05:31 16:52 20:55 WBC (3.8-10.6) k/uL RBC (4.30-5.90) m/uL Hgb (13.0-17.5) gm/dL Hct (39.0-53.0) % MCV (80.0-100.0) fL MCHC (31.0-37.0) g/dL RDW (11.5-15.5) % Neutrophils # (1.3-7.7) k/uL Lymphocytes # (1.0-4.8) k/uL Macrocytosis PT (9.0-12.0) sec INR (<1.2) Sodium (137-145) mmol/L BUN (9-20) mg/dL Creatinine (0.66-1.25) mg/dL Glucose (74-99) mg/dL POC Glucose (mg/dL) 162 H 201 H (75-99) mg/dL Calcium (8.4-10.2) mg/dL Prealbumin 9.8 L (18.0-42.0) mg/dL 08/14/21 08/14/21 08/14/21 Range/Units 07:00 07:00 07:00 WBC 13.6 H (3.8-10.6) k/uL RBC 2.78 L (4.30-5.90) m/uL Hgb 8.6 L (13.0-17.5) gm/dL Hct 29.2 L (39.0-53.0) % MCV 104.8 H (80.0-100.0) fL MCHC 29.6 L (31.0-37.0) g/dL RDW 20.9 H (11.5-15.5) % Neutrophils # 12.4 H (1.3-7.7) k/uL Lymphocytes # 0.3 L (1.0-4.8) k/uL Macrocytosis Marked A PT 20.1 H (9.0-12.0) sec INR 2.0 H (<1.2) Sodium 136 L (137-145) mmol/L BUN 119 H* (9-20) mg/dL Creatinine 2.60 H (0.66-1.25) mg/dL Glucose 108 H (74-99) mg/dL POC Glucose (mg/dL) (75-99) mg/dL Calcium 8.1 L (8.4-10.2) mg/dL Prealbumin (18.0-42.0) mg/dL 08/14/21 08/14/21 Range/Units 07:02 11:06 WBC (3.8-10.6) k/uL RBC (4.30-5.90) m/uL Hgb (13.0-17.5) gm/dL Hct (39.0-53.0) % MCV (80.0-100.0) fL MCHC (31.0-37.0) g/dL RDW (11.5-15.5) % Neutrophils # (1.3-7.7) k/uL Lymphocytes # (1.0-4.8) k/uL Macrocytosis PT (9.0-12.0) sec INR (<1.2) Sodium (137-145) mmol/L BUN (9-20) mg/dL Creatinine (0.66-1.25) mg/dL Glucose (74-99) mg/dL POC Glucose (mg/dL) 132 H 141 H (75-99) mg/dL Calcium (8.4-10.2) mg/dL Prealbumin (18.0-42.0) mg/dL Assessment and Plan Assessment: 1. Status post mitral valve replacement, tricuspid valve repair and single- vessel bypass grafting. 2. Right-sided pleural effusion 3. Coagulopathy. Resolved 4. History of congestive heart failure 5. History of valvular heart disease with previous mitral valve repair with a mitral clip at [facility] 6. History of coronary artery disease 7. History of hyperlipidemia 8. History of renal insufficiency 9. Previous history of atrial fibrillation 10. Sputum culture positive for Klebsiella pneumonia patient started on IV antibiotics Thank you for this consultation we will continue to follow patient closely throughout stay Patient remains in the intensive care unit Repeat labs ordered Patient to be transitioned off IV insulin to sliding scale coverage. A1c 5.8 Chest tubes remain in place Right-sided Pleurx pigtail in place Ambulation encouraged Diet encouraged
--- NOTE | 2021-08-15 06:09 | XR ---
EXAMINATION TYPE: XR chest 1V portable DATE OF EXAM: 08/15/2021 CLINICAL HISTORY: Postopen cardiac surgery progress study. TECHNIQUE: Single AP portable semiupright view of the chest is obtained. COMPARISON: Chest x-ray and CT chest from one day earlier and older studies. FINDINGS: Persistent cardiomegaly with overlying sternal wires along with atrial septal closure maria antonia ce and surgical changes at level of the mitral valve. Single lead pacemaker redemonstrated. Vertical density corresponds to surgical change at level of the tricuspid valve. There is calcification or juan nt in the left circumflex coronary artery redemonstrated. Persistent cardiomegaly with right basilar chest tube. Persistent right medial apical small to tiny p neumothorax seen better on recent CT. Persistent small right pleural fluid collection and associated right mid to lower lung infiltrate and/or atelectasis. Persistent left hilar opacity with mid to lowe r lung extension consistent with infiltrate and/or atelectasis. Osseous structures are intact. IMPRESSION: Persistent small right hydropneumothorax despite chest tube placement. Persistent cardiom egaly with bilateral mid to lower lung infiltrates and/or atelectasis. No significant change from one day earlier.
--- NOTE | 2021-08-15 06:17 | FL ---
EXAMINATION TYPE: FL guidance operating room DATE OF EXAM: 08/14/2021 FLUOROSCOPY Fluoroscopy time of 8 seconds was used during right-sided Pleurx catheter placement. 3 image/s docum ent/s the procedure.
[2021-08-15 07:09] LABS: Glucose,Whole Blood 199 mg/dL (75-99)
[2021-08-15 07:18] LABS: INR 2.2 (<1.2); Prothrombin Time 21.9 sec (9.0-12.0)
[2021-08-15 07:24] LABS: Calcium 8.3 mg/dL (8.4-10.2); Magnesium 3.4 mg/dL (1.6-2.3); Potassium 4.1 mmol/L (3.5-5.1); Total Bilirubin 0.9 mg/dL (0.2-1.3); Total Protein 5.8 g/dL (6.3-8.2)
[2021-08-15] MEDS: INSULIN ASPART (NovoLOG) 100 UNIT/ML VIAL SQ SCH ×4 (07:32→21:29)
[2021-08-15] MEDS: PANTOPRAZOLE 40 MG TABLET PO SCH (07:33)
[2021-08-15 07:40] LABS: Anisocytosis Moderate; Basophils % (A) 0 %; Eosinophils % (A) 0 %; HCT 30.5 % (39.0-53.0); HGB 8.8 gm/dL (13.0-17.5); Hypochromasia Marked; Lymphocytes # (A) 0.2 k/uL (1.0-4.8); Lymphocytes % (A) 2 %; MCH 30.2 pg (25.0-35.0); MCHC 28.7 g/dL (31.0-37.0); MCV 105.3 fL (80.0-100.0); Macrocytosis Marked; Mean Platelet Volume 10.1; Monocytes # (A) 0.2 k/uL (0-1.0); Monocytes % (A) 2 %; Neutrophils # (A) 7.4 k/uL (1.3-7.7); Neutrophils % (A) 95 %; Platelet Count 195 k/uL (150-450); Poikilocytosis Moderate; RDW 20.4 % (11.5-15.5); WBC 7.9 k/uL (3.8-10.6)
--- NOTE | 2021-08-15 07:48 | P.PN ---
Subjective Progress Note Date: 08/15/21 Principal diagnosis: Mitral valve regurgitation, tricuspid valve regurgitation, coronary artery disease. Previous medical history of CAD with previous cardial infarction and PCI, hypertension, chronic atrial fibrillation on Coumadin for anticoagulation status post cardioversion, sick sinus syndrome [facility] permanent pacemaker placement in 2017, chronic systolic heart failure, atrial septal defect status post closure, previous MitraClip in 2019, chronic renal insufficiency, previous tobacco dependence, severe restrictive lung disease, obstructive sleep apnea, recurrent right-sided pleural effusio with previous thoracentesis x 4, remote history of pneumonia, family history of premature coronary artery disease POD #18 mitral valve replacement with 31 mm Mosaic porcine valve prosthesis, tricuspid valve repair with 30 mm MC3 band, coronary artery bypass grafting 1 with reverse saphenous vein graft to the obtuse marginal artery, endovascular vein harvest of the left greater saphenous vein, epi-aortic ultrasound, closure of the left atrial appendage, closure of ASD Postoperative acute blood loss anemia and thrombocytopenia, expected given hemodilution and cardiopulmonary bypass pump Coagulopathy, unexpected Right-sided pleural effusion, expected given history of previous right-sided effusion with thoracentesis 4, status post right-sided pigtail catheter oseas cement by interventional radiology, status post right sided pleurX catheter Leukocytosis, afebrile, sputum culture positive for Klebsiella pneumoniae Altered mental status after surgery due to delirium from lack of sleep, resolved The patient was seen and examined this morning sitting up in a recliner in the intensive care unit in no acute distress. He denies any pain other than mouth pain, denies shortness of breath, does have frequent cough. Currently on 5 L high flow nasal cannula, achieving 1000 mL on his incentive spirometry. Currently ventricular paced at 70 BPM, did receive Lopressor last night. Patient remains afebrile. Has ambulated in the hallway. Remains on IV cefepime for Klebsiella in his sputum, started on IV solumedrol per pulmonology. He was started on continuous IV Bumex yesterday by nephrology. Right pleurx catheter placed yesterday with removal of 400 mL serous fluid. Objective - Vital Signs Vital signs: Vital Signs Temp 97 F L 08/15/21 04:00 Pulse 73 08/15/21 07:00 Resp 17 08/15/21 07:00 BP 100/59 08/15/21 07:00 Pulse Ox 99 08/15/21 07:00 Intake & Output 08/14/21 08/15/21 08/15/21 18:59 06:59 18:59 Intake Total 340 517.083 Output Total 1153 1375 0 Balance -813 -857.917 0 Weight 70.3 kg Intake: IV 100 50 Cefepime 1 gm In Sodium 50 Chloride 0.9% 50 ml @ 12. 5 mls/hr IVPB Q12HR [facility]IL Rx#:[id number] Intake, IV Titration 67.083 Amount Bumetanide 10 mg In 67.083 Dextrose 5% in Water 60 ml @ 0.5 MG/HR 5 mls/hr IV .Q20H PHIL Rx#: [id number] Oral 240 400 Output: Drainage [address] 140 Right Posterior 260 Urine 850 975 0 Stool 300 Estimated Blood Loss 3 Other: Voiding Method Urinal Urinal ABP, PAP, CO, CI - Last Documented Arterial Blood Pressure 119/35 Pulmonary Artery Pressure 35/28 Cardiac Output 5 Cardiac Index 2.7 - Exam CONSTITUTIONAL: Appears comfortable, cooperative, no acute distress RESPIRATORY: Lungs sounds diminished bilaterally. Respirations even, nonlabored. Currently on 5 L nasal cannula with oxygen saturation 100%. Able to achieve 1000 mL on incentive spirometry. Strong frequent loose cough. CARDIOVASCULAR: S1, S2 present. V paced on telemetry with heart rate in the 70s. Sternum stable. Palpable peripheral pulses bilaterally. Trace bilateral lower extremity edema present. No calf pain or tenderness noted. Heart hugger in place with patient demonstrating appropriate use. Antiembolism stockings, SCDs present. GASTROINTESTINAL: Abdomen soft, nontender, slightly distended. Active bowel sounds present 4 quadrants. Tolerating minimal diet due to mouth pain. Positi ve bowel movement 08/13/21 GENITOURINARY: Continues to void, output 1825 mL in the last 24 hours INTEGUMENTARY: Skin is warm and dry with evidence of good perfusion. Anterior chest incision well approximated. Left lower extremity EVH site well approximated without redness or drainage. Right pleurx cath site without redness, dressing present NEUROLOGIC: Cranial nerves II through XII intact MUSKULOSKELETAL: Able to move all extremities, strength equal bilaterally but generalized weakness present PSYCHIATRIC: Oriented to person place and time - Allied health notes Allied health notes reviewed: nursing - Labs CBC & Chem 7: 08/15/21 06:09 08/15/21 06:09 Labs: Abnormal Lab Results - Last 24 Hours (Table) 08/14/21 08/14/21 08/14/21 Range/Units 07:00 07:00 07:00 WBC 13.6 H (3.8-10.6) k/uL RBC 2.78 L (4.30-5.90) m/uL Hgb 8.6 L (13.0-17.5) gm/dL Hct 29.2 L (39.0-53.0) % MCV 104.8 H (80.0-100.0) fL MCHC 29.6 L (31.0-37.0) g/dL RDW 20.9 H (11.5-15.5) % Neutrophils # 12.4 H (1.3-7.7) k/uL Lymphocytes # 0.3 L (1.0-4.8) k/uL Macrocytosis Marked A PT 20.1 H (9.0-12.0) sec INR 2.0 H (<1.2) Sodium 136 L (137-145) mmol/L BUN 119 H* (9-20) mg/dL Creatinine 2.60 H (0.66-1.25) mg/dL Glucose 108 H (74-99) mg/dL POC Glucose (mg/dL) (75-99) mg/dL Calcium 8.1 L (8.4-10.2) mg/dL 08/14/21 08/14/21 08/14/21 Range/Units 11:06 16:43 20:22 WBC (3.8-10.6) k/uL RBC (4.30-5.90) m/uL Hgb (13.0-17.5) gm/dL Hct (39.0-53.0) % MCV (80.0-100.0) fL MCHC (31.0-37.0) g/dL RDW (11.5-15.5) % Neutrophils # (1.3-7.7) k/uL Lymphocytes # (1.0-4.8) k/uL Macrocytosis PT (9.0-12.0) sec INR (<1.2) Sodium (137-145) mmol/L BUN (9-20) mg/dL Creatinine (0.66-1.25) mg/dL Glucose (74-99) mg/dL POC Glucose (mg/dL) 141 H 158 H 254 H (75-99) mg/dL Calcium (8.4-10.2) mg/dL 08/15/21 08/15/21 Range/Units 06:09 07:08 WBC (3.8-10.6) k/uL RBC (4.30-5.90) m/uL Hgb (13.0-17.5) gm/dL Hct (39.0-53.0) % MCV (80.0-100.0) fL MCHC (31.0-37.0) g/dL RDW (11.5-15.5) % Neutrophils # (1.3-7.7) k/uL Lymphocytes # (1.0-4.8) k/uL Macrocytosis PT 21.9 H (9.0-12.0) sec INR 2.2 H (<1.2) Sodium (137-145) mmol/L BUN (9-20) mg/dL Creatinine (0.66-1.25) mg/dL Glucose (74-99) mg/dL POC Glucose (mg/dL) 199 H (75-99) mg/dL Calcium (8.4-10.2) mg/dL - Imaging and Cardiology Chest x-ray: report reviewed, image reviewed Assessment and Plan Assessment: 1. Mitral valve regurgitation, previous MitraClip in 2019, status post post mitral valve replacement 2. Tricuspid valve regurgitation, status post tricuspid valve repair 3. Coronary artery disease with previous myocardial infarction and PCI, status post 1 vessel CABG 4. History of hypertension 5. Chronic atrial fibrillation on Coumadin for anticoagulation status post cardioversion, status post closure of the left atrial appendage 6. Sick sinus syndrome status post [facility] permanent pacemaker placement in 2017 7. Chronic systolic heart failure 8. Atrial septal defect status post closure 9. Acute on chronic renal insufficiency stage IIIB, baseline creatinine 1.6-1.7 10. Previous tobacco dependence 11. Severe restrictive lung disease, preoperative FEV1 47% of predicted 12. Recurrent right-sided pleural effusion, patient had right sided thoracentesis twice in 2019 and twice in 2020, status post right-sided pigtail catheter placement by IR, status post right sided pleurX catheter placement 13. Obstructive sleep apnea 14. Remote history of pneumonia 15. Family history of premature coronary artery disease 16. Postoperative acute blood loss anemia and thrombocytopenia, expected 17. Coagulopathy, unexpected 18. Leukocytosis, elevated pro-calcitonin, afebrile, sputum culture positive for Klebsiella pneumoniae 19. Altered mental status after surgery due to delirium from lack of sleep, resolved Plan: 1. Continue low-dose aspirin, statin, beta shila. 2. Continue Coumadin, will monitor daily PT/INR. 3. Wean O2 as tolerated. Encourage incentive spirometry use 10 times every hour while awake. Bronchodilators per pulmonology. Would like steroids stopped per Dr. Collado 4. Increase activity, ambulate minimum 4 times in the hallway daily. PT/OT/cardiac rehab following. 5. Will monitor daily labs and x-rays. Abt per pulmonology. Diuresis per nephrology, would like continuous IV bumex transitioned to oral per Dr. Collado 6. GI/DVT prophylaxis 7. Insulin management per primary care service. Patient is not diabetic, preop erative hemoglobin A1c 5.8% 8. Pain control per current medication regimen. Avoid narcotics 9. Strict accurate intake and output. Daily weights 10. Encourage oral intake, encourage supplements to improve nutrition. Continue Kools solution oral rinse 11. Discharge planning in progress. Anticipate discharge to [facility] hopefully Wednesday 12. More recommendations to follow based on patient's progress
[2021-08-15] MEDS: IPRATROPIUM-ALBUTEROL 3 ML NEB INHALATION SCH ×4 (08:07→20:42)
[2021-08-15] MEDS: SYMBICORT 160-4.5 MCG INHALER INHALATION SCH ×2 (08:07→20:42)
[2021-08-15] MEDS: HEPARIN SODIUM,PORCINE/PF 5,000 UNIT/0.5 ML SYRINGE SQ SCH (08:19)
[2021-08-15] MEDS: methylPREDNISolone SOD SUCCI 40 MG/ML 1 ML VIAL IV SCH (08:19)
[2021-08-15] MEDS: CEFEPIME 1 GM in SODIUM CHLORIDE 0.9% 50 ML IVPB SCH ×2 (08:19→21:31)
[2021-08-15] MEDS: SERTRALINE 50 MG TAB PO SCH (08:20)
[2021-08-15] MEDS: FOLIC ACID 1 MG TAB PO SCH (08:20)
[2021-08-15] MEDS: SODIUM BICARBONATE TAB 650 MG TAB PO SCH (08:20)
[2021-08-15] MEDS: allopurinoL 100 MG TAB PO SCH (08:21)
[2021-08-15] MEDS: ASPIRIN 81 MG PO SCH (08:21)
[2021-08-15] MEDS: METOPROLOL TARTRATE 12.5 MG TAB PO SCH (08:21)
[2021-08-15] MEDS: ASCORBIC ACID 500 MG TAB PO SCH (08:21)
[2021-08-15] MEDS: FERROUS SULFATE 325 MG TAB PO SCH (08:21)
[2021-08-15] MEDS: MAG HYDROX/AL HYDROX/SIMETH 30 ML, LIDOCAINE VISCOUS 2% 30 ML, NYSTATIN 100,000 UNIT/ML... PO SCH ×9 (08:22→21:32)
[2021-08-15] MEDS: SODIUM FERRIC GLUCONAT-SUCROSE 125 MG in SODIUM CHLORIDE 0.9% 100 ML IVPB SCH (09:09)
--- NOTE | 2021-08-15 09:14 | PN ---
PROGRESS NOTE Mr. Mascorro had a PleurX tube placed from the right side. Left chest tube is out. His breathing is better. His strength also shows modest improvement. He is in atrial fibrillation with back-up ventricular paced rhythm. S1, S2 heard normally. Short systolic murmur noted. JVD is evident; more than 1 cm. Lungs reveal improved air entry. Abdomen is soft. Rest of physical exam unchanged. Plan is to continue current medical regimen, gradually increase activity and build strength. No new specific suggestions from a cardiac standpoint. MMODL / IJN: [id number] /
--- NOTE | 2021-08-15 10:02 | P.PN ---
Subjective Patient is seen in follow-up for acute kidney injury on chronic kidney disease. Renal function fairly stable. On Bumex drip. Urine output 2-1/2 L in the last 24 hours. Edema better. Denies chest pain. On 5 L nasal cannula. Blood pressure stable. Oral intake fair. Vital signs are stable. General: Awake and alert. No acute distress. HEENT: Head exam is unremarkable. LUNGS: Breath sounds decreased. HEART: Rate and Rhythm are regular. ABDOMEN: Soft, no distention. EXTREMITITES: 1+ edema. Objective - Vital Signs Vital signs: Vital Signs Temp 98.1 F 08/15/21 08:00 Pulse 71 08/15/21 09:00 Resp 25 H 08/15/21 09:00 BP 132/55 08/15/21 09:00 Pulse Ox 94 L 08/15/21 09:00 Intake & Output 08/14/21 08/15/21 08/15/21 18:59 06:59 18:59 Intake Total 340 517.083 150 Output Total 1153 1375 0 Balance -813 -857.917 150 Weight 70.3 kg Intake: IV 100 50 50 Cefepime 1 gm In Sodium 50 50 Chloride 0.9% 50 ml @ 12. 5 mls/hr IVPB Q12HR [facility]IL Rx#:[id number] Intake, IV Titration 67.083 100 Amount Bumetanide 10 mg In 67.083 Dextrose 5% in Water 60 ml @ 0.5 MG/HR 5 mls/hr IV .Q20H [facility]IL Rx#: [id number] Sodium Ferric Gluconat- 100 Sucrose 125 mg In Sodium Chloride 0.9% 100 ml @ 100 mls/hr IVPB DAILY [facility]IL Rx#:[id number] Oral 240 400 Output: Drainage [address] 140 Right Posterior 260 Urine 850 975 0 Stool 300 Estimated Blood Loss 3 Other: Voiding Method Urinal Urinal ABP, PAP, CO, CI - Last Documented Arterial Blood Pressure 119/35 Pulmonary Artery Pressure 35/28 Cardiac Output 5 Cardiac Index 2.7 - Labs CBC & Chem 7: 08/15/21 06:09 08/15/21 06:09 Labs: Abnormal Lab Results - Last 24 Hours (Table) 08/14/21 08/14/21 08/14/21 Range/Units 11:06 16:43 20:22 RBC (4.30-5.90) m/uL Hgb (13.0-17.5) gm/dL Hct (39.0-53.0) % MCV (80.0-100.0) fL MCHC (31.0-37.0) g/dL RDW (11.5-15.5) % Lymphocytes # (1.0-4.8) k/uL Macrocytosis PT (9.0-12.0) sec INR (<1.2) BUN (9-20) mg/dL Creatinine (0.66-1.25) mg/dL Glucose (74-99) mg/dL POC Glucose (mg/dL) 141 H 158 H 254 H (75-99) mg/dL Calcium (8.4-10.2) mg/dL Magnesium (1.6-2.3) mg/dL Total Protein (6.3-8.2) g/dL Albumin (3.5-5.0) g/dL 08/15/21 08/15/21 08/15/21 Range/Units 06:09 06:09 06:09 RBC 2.90 L (4.30-5.90) m/uL Hgb 8.8 L (13.0-17.5) gm/dL Hct 30.5 L (39.0-53.0) % MCV 105.3 H (80.0-100.0) fL MCHC 28.7 L (31.0-37.0) g/dL RDW 20.4 H (11.5-15.5) % Lymphocytes # 0.2 L (1.0-4.8) k/uL Macrocytosis Marked A PT 21.9 H (9.0-12.0) sec INR 2.2 H (<1.2) BUN 125 H* (9-20) mg/dL Creatinine 2.74 H (0.66-1.25) mg/dL Glucose 169 H (74-99) mg/dL POC Glucose (mg/dL) (75-99) mg/dL Calcium 8.3 L (8.4-10.2) mg/dL Magnesium 3.4 H (1.6-2.3) mg/dL Total Protein 5.8 L (6.3-8.2) g/dL Albumin 3.0 L (3.5-5.0) g/dL 08/15/21 Range/Units 07:08 RBC (4.30-5.90) m/uL Hgb (13.0-17.5) gm/dL Hct (39.0-53.0) % MCV (80.0-100.0) fL MCHC (31.0-37.0) g/dL RDW (11.5-15.5) % Lymphocytes # (1.0-4.8) k/uL Macrocytosis PT (9.0-12.0) sec INR (<1.2) BUN (9-20) mg/dL Creatinine (0.66-1.25) mg/dL Glucose (74-99) mg/dL POC Glucose (mg/dL) 199 H (75-99) mg/dL Calcium (8.4-10.2) mg/dL Magnesium (1.6-2.3) mg/dL Total Protein (6.3-8.2) g/dL Albumin (3.5-5.0) g/dL Assessment and Plan Plan: Assessment: 1. Acute kidney injury secondary to ATN secondary to hemodynamics and acute blood loss anemia. Renal function fairly stable. Nonoliguric. Elevated BUN secondary to acute kidney injury and diuresis. No active bleeding. Not on steroids. 2. Chronic kidney disease stage IIIB with baseline creatinine near 1.6-1.7. 3. Coronary artery disease status post CABG with mitral valve replacement and tricuspid valve repair. 4. Acute blood loss anemia postoperatively status post blood transfusion. On Aranesp. No active bleeding. Iron deficiency noted. 5. Volume overload. Improved with diuresis. Status post right Pleurx catheter placed 06/16/2021. 6. Chronic kidney disease mineral bone disease maintained on PhosLo. Phosphorus 5.5 dated 08/09/2021. 7. Metabolic acidosis secondary to acute kidney injury. On oral bicarbonate. Stable. 8. Hypertension with chronic kidney disease. Blood pressure stable. Cortisol level not low. 9. Sputum culture positive for Klebsiella. On antibiotics. Plan: Change Bumex drip to oral Bumex 1 mg twice daily. Stop bicarb. Encouraged oral intake. Continue to monitor renal function and urine output. Maintain IV iron.
--- NOTE | 2021-08-15 10:26 | P.PN ---
Subjective Progress Note Date: 08/15/21 This is a 81-year-old male patient who is currently postop day 2 from mitral valve replacement, tricuspid valve repair and single-vessel bypass grafting SVG to obtuse marginal. Patient has a past medical history of valvular heart disease with symptoms including shortness of breath with exertion and unable to perform many of his activities of daily living. Additional medical history includes coronary artery disease with previous cardiac infarction and PCI, hypertension, chronic atrial fibrillation on Coumadin for and configuration status post cardioversion, sick sinus syndrome with [facility] permanent pacemaker placement 2016, chronic systolic heart failure, atrial septal defect status post closure with previous mitral clip in 2019 at [facility], chronic renal insufficiency, obstructive sleep apnea, reoccurring right-sided pleural effusions with previous thoracentesis 4. At this time patient is currently resting comfortably in the intensive care unit. Patient was successfully extubated per protocol currently on IV dopamine and Levophed. INR elevated at 6.5. hemoglobin 6.6. 1 unit PRBCs, 2 units of FFP have been ordered per surgical services INR recheck ordered for noon. Chest x-ray the same showing cardiomegaly with moderate to large right and small sized bilateral pleural effusion collection and/or effusions with mild to moderate central vascular congestion and bibasilar opacities favoring atelectasis along with left-sided chest tubes are redemonstrated. Per surgical services possible plans for Pleurx catheter placement. This time patient is resting comfortably in chair patient remains on high flow oxygen. Blood sugars have remained stable per nursing staff will transition off insulin drip to sliding scale coverage. Cardiology and critical care services are following. On 07/31/2021 patient having intermittent episodes of confusion. INR improving to 2.3. Hemoglobin 7.6. Chest tubes remain in place. Cardiology and critical care services are following. Patient remains on high flow nasal cannula. Current vitals heart rate 80, respiratory rate 16, blood pressure 104/51 On 08/01/2021 patient is more alert currently resting comfortably in chair. Sitter is at bedside. Patient remains on high flow nasal cannula. Patient remains on IV Bumex. Cordis, chest tube and right pigtail catheter all remain in place. On 08/02/2021 patient was seen and examined in the ICU he is alert and oriented 3 in no apparent distress, sitting up in a chair, he is maintained on high flow oxygen, with FiO2 of 45, pulse ox is 93% temperature 97.2 pulse 80 respiration 22 blood pressure 129/46, he denies any fever or chills no headache or dizziness no chest pain no shortness of breath no cough no nausea no vomiting no abdominal pain no diarrhea and no urinary symptoms, chest tube is still in place, he is maintained on Bumex 2 mg IV every 8 hours On 08/03/2021 patient remains in the intensive care unit. Patient is alert and oriented sitting comfortably in chair. Discussed case with surgical team Bumex has been DC'd. Creatinine 2.25 bun 70. Chest tube remains in place. Patient remains on high flow 60%. This time patient denies chest pain or shortness socorro th. Patient denies diarrhea. Patient denies any urinary burning or frequency On 08/04/2021 patient was seen and examined, in the ICU, he is alert and oriented 3 in no apparent distress, there is no fever or chills no headache or dizziness no chest pain no shortness of breath no cough no nausea or vomiting no abdominal pain no diarrhea and no urinary symptoms he still has a left sided chest to and he is complaining of discomfort at the site of the 2 he is maintained on oxygen at 8 L nasal cannula his pulse ox is 96% blood pressure 126/62 pulse 63 respiration 24 temperature 97.9 On 08/05/2021 patient was seen and examined in the ICU he is alert and oriented 3 in no apparent distress he is sitting up in a chair he is complaining of discomfort in the left chest at the site of the chest to he is also complaining of pain when coughing otherwise he denies any complaints at this time his vital exam reveals a temperature of 98 pulse 65 respiration 30 blood pressure 136/66 pulse ox 98% on oxygen 3 L nasal cannula, white blood count is 14.4 hemoglobin 8.0 platelet count 192 INR 1.2 BUN 85 creatinine 2.2 On 08/06/2021 patient remains in the intensive care unit. Patient is alert and oriented 3. White blood cell increasing to 15.3 per. Per critical care services will check UA and monitor fever pattern no need for antibiotic treatment at this time. Creatinine 2.53 and bun 89. Nephrology services are following. Current vitals temp 97.6, heart rate 64, pulse ox 94% on 3 L, blood pressure 166/57 08/07/2021 patient remains in the intensive care unit confusion has improved. Nephrology services are following. Patient remains with significant output from chest tubes. Current vitals temp 97.9, respiratory rate 22, blood pressure 124/60 to 98% on 5 L On 08/08/2021 patient is alert and oriented 3 currently sitting up in the care unit. Per nursing staff patient has been up ambulating with assistance. Still having significant output from chest tubes. Patient also getting treated for oral thrush. Discharge planning is in progress patient will likely need inpatient rehab upon discharge On 08/09/2021 patient was seen and examined in the ICU, he is sitting up in a chair, he is complaining of discomfort in his mouth due to thrush, he also has occasional cough otherwise he denies any complaints there is no fever or chills no headache or dizziness, no chest pain or shortness of breath no nausea or vomiting no abdominal pain no diarrhea no blood in the stools no burning with urination no frequency or urgency and no hematuria On 08/10/2021 patient remains in the intensive care unit. Currently working with physical therapy. Patient has positive sputum culture. Creatinine 2.7 bun 110. Nephrology services are following. Patient still having significant outpu t from chest tubes. Discussed case with cardiothoracic surgery no plans to remove chest tubes at this time. On 08/11/2021 patient was seen and examined in the ICU, he is sitting up in a chair, he is feeling somewhat better, he is complaining of discomfort in his mouth due to thrush, he also has occasional cough otherwise he denies any complaints there is no fever or chills no headache or dizziness, no chest pain or shortness of breath no nausea or vomiting no abdominal pain no diarrhea no blood in the stools no burning with urination no frequency or urgency and no hematuria. On 08/12/2021 patient remains in the intensive care unit. Nephrology services are following. Patient remains on IV antibiotics. Patient still draining significant amount from chest tube. Diet and ambulation encouraged. At this time patient denies chest pain or shortness of breath. Patient denies nausea vomiting or diarrhea. Patient denies any urinary burning or frequency On 08/13/2021 patient is alert and oriented 3 currently sitting up in chair. Patient remains in the intensive care unit chest tubes in place. White blood cell 13.8, hemoglobin 8.7, creatinine 2.84 and bun 126. Patient remains on 8 L nasal cannula. Current vitals temp 96.5, heart rate 70, her story rate 23, blood pressure 100/67 patient satting 90% on 8 L On 08/14/2021, patient was seen and examined in the ICU he is alert and oriented 3 in no apparent distress, chest tube is still in place, patient is scheduled for a right Pleurx catheter placement today, he is complaining of chest discomfort and shortness of breath otherwise he denies any complaints on 08/15/2021 patient remains in the intensive care unit. Patient is alert and oriented 3. creatinine 2.76, bun 128. Patient remains on IV cefepime. patient currently on 5 L high flow nasal cannula. Right Pleurx catheter placed yesterday with 400 mL serous fluid Objective - Vital Signs Vital signs: Vital Signs Temp 98.1 F 08/15/21 08:00 Pulse 71 08/15/21 09:00 Resp 25 H 08/15/21 09:00 BP 132/55 08/15/21 09:00 Pulse Ox 94 L 08/15/21 09:00 Intake & Output 08/14/21 08/15/21 08/15/21 18:59 06:59 18:59 Intake Total 340 517.083 150 Output Total 1153 1375 0 Balance -813 -857.917 150 Weight 70.3 kg Intake: IV 100 50 50 Cefepime 1 gm In Sodium 50 50 Chloride 0.9% 50 ml @ 12. 5 mls/hr IVPB Q12HR PHIL Rx#:[id number] Intake, IV Titration 67.083 100 Amount Bumetanide 10 mg In 67.083 Dextrose 5% in Water 60 ml @ 0.5 MG/HR 5 mls/hr IV .Q20H PHIL Rx#: [id number] Sodium Ferric Gluconat- 100 Sucrose 125 mg In Sodium Chloride 0.9% 100 ml @ 100 mls/hr IVPB DAILY PHIL Rx#:[id number] Oral 240 400 Output: Drainage [address] 140 Right Posterior 260 Urine 850 975 0 Stool 300 Estimated Blood Loss 3 Other: Voiding Method Urinal Urinal ABP, PAP, CO, CI - Last Documented Arterial Blood Pressure 119/35 Pulmonary Artery Pressure 35/28 Cardiac Output 5 Cardiac Index 2.7 - Exam In general patient is alert and oriented x 3 in no distress HEENT head normocephalic and atraumatic Neck is supple no JVD no goiter no lymphadenopathy no carotid bruit Chest examination reveals a scattered crackles in both lung sousa no wheezing Cardiac exam reveals regular heart sounds S1 and S2 no gallops no murmurs Abdomen is soft nontender no organomegaly with normal bowel sounds Extremity exam reveals no edema no cyanosis or clubbing Neurological examination reveals no gross focal deficits - Labs CBC & Chem 7: 08/15/21 06:09 08/15/21 06:09 Labs: Abnormal Lab Results - Last 24 Hours (Table) 08/14/21 08/14/21 08/14/21 Range/Units 11:06 16:43 20:22 RBC (4.30-5.90) m/uL Hgb (13.0-17.5) gm/dL Hct (39.0-53.0) % MCV (80.0-100.0) fL MCHC (31.0-37.0) g/dL RDW (11.5-15.5) % Lymphocytes # (1.0-4.8) k/uL Macrocytosis PT (9.0-12.0) sec INR (<1.2) BUN (9-20) mg/dL Creatinine (0.66-1.25) mg/dL Glucose (74-99) mg/dL POC Glucose (mg/dL) 141 H 158 H 254 H (75-99) mg/dL Calcium (8.4-10.2) mg/dL Magnesium (1.6-2.3) mg/dL Total Protein (6.3-8.2) g/dL Albumin (3.5-5.0) g/dL 08/15/21 08/15/21 08/15/21 Range/Units 06:09 06:09 06:09 RBC 2.90 L (4.30-5.90) m/uL Hgb 8.8 L (13.0-17.5) gm/dL Hct 30.5 L (39.0-53.0) % MCV 105.3 H (80.0-100.0) fL MCHC 28.7 L (31.0-37.0) g/dL RDW 20.4 H (11.5-15.5) % Lymphocytes # 0.2 L (1.0-4.8) k/uL Macrocytosis Marked A PT 21.9 H (9.0-12.0) sec INR 2.2 H (<1.2) BUN 125 H* (9-20) mg/dL Creatinine 2.74 H (0.66-1.25) mg/dL Glucose 169 H (74-99) mg/dL POC Glucose (mg/dL) (75-99) mg/dL Calcium 8.3 L (8.4-10.2) mg/dL Magnesium 3.4 H (1.6-2.3) mg/dL Total Protein 5.8 L (6.3-8.2) g/dL Albumin 3.0 L (3.5-5.0) g/dL 08/15/21 Range/Units 07:08 RBC (4.30-5.90) m/uL Hgb (13.0-17.5) gm/dL Hct (39.0-53.0) % MCV (80.0-100.0) fL MCHC (31.0-37.0) g/dL RDW (11.5-15.5) % Lymphocytes # (1.0-4.8) k/uL Macrocytosis PT (9.0-12.0) sec INR (<1.2) BUN (9-20) mg/dL Creatinine (0.66-1.25) mg/dL Glucose (74-99) mg/dL POC Glucose (mg/dL) 199 H (75-99) mg/dL Calcium (8.4-10.2) mg/dL Magnesium (1.6-2.3) mg/dL Total Protein (6.3-8.2) g/dL Albumin (3.5-5.0) g/dL Assessment and Plan Assessment: 1. Status post mitral valve replacement, tricuspid valve repair and single- vessel bypass grafting. 2. Right-sided pleural effusion 3. Coagulopathy. Resolved 4. History of congestive heart failure 5. History of valvular heart disease with previous mitral valve repair with a mitral clip at [facility] 6. History of coronary artery disease 7. History of hyperlipidemia 8. History of renal insufficiency 9. Previous history of atrial fibrillation 10. Sputum culture positive for Klebsiella pneumonia patient started on IV antibiotics Thank you for this consultation we will continue to follow patient closely throughout stay Patient remains in the intensive care unit Repeat labs ordered Patient to be transitioned off IV insulin to sliding scale coverage. A1c 5.8 Chest tubes remain in place Right-sided Pleurx pigtail in place Ambulation encouraged Diet encouraged
[2021-08-15 11:59] LABS: Glucose,Whole Blood 279 mg/dL (75-99)
--- NOTE | 2021-08-15 12:34 | P.PN ---
Subjective Progress Note Date: 08/15/21 Principal diagnosis: Postoperative day # 18 status post mitral valve replacement, tricuspid valve repair and coronary artery bypass grafting times one reverse saphenous vein graft to obtuse marginal artery This is an 81-year-old white male seen today on follow-up,08/11/2021, patient remains in the ICU, he is now on 4 L nasal cannula, seems to be doing fairly well considering his multiple medical problems continues to have left-sided chest tube in place and a Pleurx catheter on the right side. Draining about 100 mL of serosanguineous fluid in each overnight. Remains empirically on Zosyn. Remains on Zosyn for Klebsiella pneumonia infection, this was cultured from the sputum. Remains in controlled atrial fibrillation. However the patient is very comfortable, and does not seem to be in any distress. He does have intermittent episodes of confusion according to the nurse, but when I saw him today he seems to be quite reasonable. And did not seem to be confused. Chest x-ray showed mostly pleural parenchymal density in the right midlung most likely related to chronic loculated right-sided pleural effusion. Reevaluated today on 08/14/2021, patient remains in the ICU, he remains marginal at best. Patient is developing some congestive heart failure changes noted on the chest x-ray. Continues to have intermittent cough, intermittent wheezing, however there is no fever, no chills, no hemoptysis. He is on 8 L high flow nasal cannula. Achieving about a liter with his incentive spirometer. His atrial fibrillation is well controlled. Has been ambulating in the hallway. Remains on antibiotics in the form of cefepime for Klebsiella in his sputum. Today the patient will be placed on Bumex drip, his left sided chest tube and the right-sided pigtail catheter were removed yesterday. Being considered for Pleurx catheter placement on the right side today. WBC count is 13.6 hemoglobin is 8.6. Electrolytes are normal BUN is 119 creatinine 2.6, improved compared to the last 3 days. Reevaluated today on 08/15/2021, patient remains in the ICU, basically about the same, patient had a Pleurx catheter placed by thoracic surgery, and it is yet to be connected to collection bag. Patient is doing fairly well considering his multiple medical issues that we have been dealing with for the last 2 weeks. Patient denies any pain other than mouth pain, he has intermittent cough, remains on oxygen at 5 L high flow. Patient is hemodynamically stable, chest x- ray is basically about the same. Continues to have small right-sided pleural effusion. Objective - Vital Signs Vital signs: Vital Signs Temp 98.2 F 08/15/21 12:00 Pulse 70 08/15/21 12:00 Resp 21 08/15/21 12:00 BP 107/49 08/15/21 12:00 Pulse Ox 99 08/15/21 12:00 Intake & Output 08/14/21 08/15/21 08/15/21 18:59 06:59 18:59 Intake Total 340 517.083 150 Output Total 1153 1375 200 Balance -813 -857.917 -50 Weight 70.3 kg Intake: IV 100 50 50 Cefepime 1 gm In Sodium 50 50 Chloride 0.9% 50 ml @ 12. 5 mls/hr IVPB Q12HR [facility] Rx#:[id number] Intake, IV Titration 67.083 100 Amount Bumetanide 10 mg In 67.083 Dextrose 5% in Water 60 ml @ 0.5 MG/HR 5 mls/hr IV .Q20H [facility] Rx#: [id number] Sodium Ferric Gluconat- 100 Sucrose 125 mg In Sodium Chloride 0.9% 100 ml @ 100 mls/hr IVPB DAILY [facility]IL Rx#:[id number] Oral 240 400 Output: Drainage [address] 140 Right Posterior 260 Urine 850 975 200 Stool 300 Estimated Blood Loss 3 Other: Voiding Method Urinal Urinal # Bowel Movements 1 ABP, PAP, CO, CI - Last Documented Arterial Blood Pressure 119/35 Pulmonary Artery Pressure 35/28 Cardiac Output 5 Cardiac Index 2.7 - Exam Physical Exam: Revealed an 81-year-old white male on 5 L nasal cannula. Head: Atraumatic, normocephalic. HEENT:[Neck is supple.] [No neck masses.] [No thyromegaly.] [No JVD.] Chest: [Symmetrical chest expansion, crackles or rhonchi and wheezes noted bilaterally. Cardiac Exam: Irregular irregular rhythm. [Normal S1 and S2, no S3 gallop, 2/6 systolic murmur thought the precordium. Abdomen: [Soft, nontender, no megaly, no rebound, no guarding, normal bowel sounds.] Extremities: [No clubbing, no edema, no cyanosis.] Neurological Exam: [No focal neurologic deficit.] No gross focal neurologic deficits Psychiatric: Normal mood, affect and normal mental status examination. Skin: No rashes. - Labs CBC & Chem 7: 08/15/21 06:09 08/15/21 06:09 Labs: Abnormal Lab Results - Last 24 Hours (Table) 08/14/21 08/14/21 08/15/21 Range/Units 16:43 20:22 06:09 RBC 2.90 L (4.30-5.90) m/uL Hgb 8.8 L (13.0-17.5) gm/dL Hct 30.5 L (39.0-53.0) % MCV 105.3 H (80.0-100.0) fL MCHC 28.7 L (31.0-37.0) g/dL RDW 20.4 H (11.5-15.5) % Lymphocytes # 0.2 L (1.0-4.8) k/uL Macrocytosis Marked A PT (9.0-12.0) sec INR (<1.2) BUN (9-20) mg/dL Creatinine (0.66-1.25) mg/dL Glucose (74-99) mg/dL POC Glucose (mg/dL) 158 H 254 H (75-99) mg/dL Calcium (8.4-10.2) mg/dL Magnesium (1.6-2.3) mg/dL Total Protein (6.3-8.2) g/dL Albumin (3.5-5.0) g/dL 08/15/21 08/15/21 08/15/21 Range/Units 06:09 06:09 07:08 RBC (4.30-5.90) m/uL Hgb (13.0-17.5) gm/dL Hct (39.0-53.0) % MCV (80.0-100.0) fL MCHC (31.0-37.0) g/dL RDW (11.5-15.5) % Lymphocytes # (1.0-4.8) k/uL Macrocytosis PT 21.9 H (9.0-12.0) sec INR 2.2 H (<1.2) BUN 125 H* (9-20) mg/dL Creatinine 2.74 H (0.66-1.25) mg/dL Glucose 169 H (74-99) mg/dL POC Glucose (mg/dL) 199 H (75-99) mg/dL Calcium 8.3 L (8.4-10.2) mg/dL Magnesium 3.4 H (1.6-2.3) mg/dL Total Protein 5.8 L (6.3-8.2) g/dL Albumin 3.0 L (3.5-5.0) g/dL 08/15/21 Range/Units 11:58 RBC (4.30-5.90) m/uL Hgb (13.0-17.5) gm/dL Hct (39.0-53.0) % MCV (80.0-100.0) fL MCHC (31.0-37.0) g/dL RDW (11.5-15.5) % Lymphocytes # (1.0-4.8) k/uL Macrocytosis PT (9.0-12.0) sec INR (<1.2) BUN (9-20) mg/dL Creatinine (0.66-1.25) mg/dL Glucose (74-99) mg/dL POC Glucose (mg/dL) 279 H (75-99) mg/dL Calcium (8.4-10.2) mg/dL Magnesium (1.6-2.3) mg/dL Total Protein (6.3-8.2) g/dL Albumin (3.5-5.0) g/dL Assessment and Plan Assessment: Impression: Mitral valve regurgitation, status post mitral valve replacement, postoperative day #18 Status post Pleurx catheter placement in the right pleural space, postoperative day #1. Tricuspid valve regurgitation, status post tricuspid valve repair Coronary artery disease, status post 1 vessel CABG, postoperative day #18 Benign essential hypertension Chronic atrial fibrillation History of sick sinus syndrome and previous pacemaker placement in 2017 Chronic systolic congestive heart failure Atrial septal defect post closure Acute on chronic renal failure, baseline creatinine 1.6-1.7, being followed by nephrology. Obstructive sleep apnea syndrome Chronic and recurrent right-sided pleural effusion requiring multiple thora centesis procedures and now he continues to have a pigtail catheter in place. The pigtail catheter was removed on 08/13/21. Postoperative acute blood loss anemia and thrombocytopenia, expected Positive sputum for Klebsiella pneumonia, suspect Klebsiella pneumonia tracheobronchitis, on cefepime Recommendation: Continue present supportive care measures Continue cefepime. Continue to monitor in the ICU for now. Continue ambulation. Continue incentive spirometry Prognosis remains guarded. Continue bronchodilators and Solu-Medrol. We'll continue to follow Time with Patient: Less than 30
[2021-08-15] MEDS: BUMETANIDE 1 MG TAB PO SCH (16:20)
[2021-08-15 17:29] LABS: Glucose,Whole Blood 289 mg/dL (75-99)
[2021-08-15] MEDS ORDERED: WARFARIN 1 MG TAB PO SCH (18:00)
[2021-08-15 21:14] LABS: Glucose,Whole Blood 419 mg/dL (75-99)
[2021-08-15 21:17] LABS: Glucose,Whole Blood 329 mg/dL (75-99)
[2021-08-15] MEDS: CALCIUM ACETATE 667 MG TAB PO SCH (21:31)
[2021-08-15] MEDS: ATORVASTATIN 40 MG TAB PO SCH (21:31)
[2021-08-16] MEDS: METOPROLOL TARTRATE 12.5 MG TAB PO SCH ×3 (03:38→23:27)
[2021-08-16 06:07] LABS: Anisocytosis Moderate; Basophils % (A) 0 %; Eosinophils % (A) 0 %; HCT 30.7 % (39.0-53.0); HGB 8.9 gm/dL (13.0-17.5); Hypochromasia Marked; Lymphocytes # (A) 0.2 k/uL (1.0-4.8); Lymphocytes % (A) 1 %; MCV 106.9 fL (80.0-100.0); Macrocytosis Marked; Mean Platelet Volume 9.6; Monocytes # (A) 0.6 k/uL (0-1.0); Monocytes % (A) 4 %; Neutrophils # (A) 12.7 k/uL (1.3-7.7); Neutrophils % (A) 93 %; Platelet Count 188 k/uL (150-450); Poikilocytosis Moderate; RBC 2.87 m/uL (4.30-5.90); RDW 21.3 % (11.5-15.5); WBC 13.7 k/uL (3.8-10.6)
[2021-08-16 06:13] LABS: INR 2.5 (<1.2); Prothrombin Time 25.2 sec (9.0-12.0)
[2021-08-16 06:29] LABS: Calcium 8.4 mg/dL (8.4-10.2); Magnesium 3.4 mg/dL (1.6-2.3); Potassium 4.7 mmol/L (3.5-5.1); Total Bilirubin 0.9 mg/dL (0.2-1.3); Total Protein 5.8 g/dL (6.3-8.2)
[2021-08-16] MEDS: PANTOPRAZOLE 40 MG TABLET PO SCH (06:51)
[2021-08-16 06:58] LABS: Glucose,Whole Blood 176 mg/dL (75-99)
[2021-08-16] MEDS: INSULIN ASPART (NovoLOG) 100 UNIT/ML VIAL SQ SCH ×4 (07:00→23:34)
--- NOTE | 2021-08-16 07:14 | XR ---
EXAMINATION TYPE: XR chest 1V portable DATE OF EXAM: 08/16/2021 HISTORY: Shortness of breath. COMPARISON: 08/15/2021 TECHNIQUE: Single view of the chest is submitted. FINDINGS: Demonstrated are scattered senescent parenchymal change. Tiny right apical pneumothorax persists. Persistent cardiomegaly with pulmonary venous congestion and right-sided pleural effusion. Underlying atelectasis or infiltrate of other etiology not excluded at the right lung base. Hilar and mediastinal structures are within normal limits. Degenerative changes are seen of the dorsal spine. IMPRESSION: 1. Overall stable chest.
[2021-08-16] MEDS: IPRATROPIUM-ALBUTEROL 3 ML NEB INHALATION SCH ×4 (07:19→19:53)
[2021-08-16] MEDS: SYMBICORT 160-4.5 MCG INHALER INHALATION SCH ×2 (07:19→19:53)
--- NOTE | 2021-08-16 09:06 | P.PN ---
Subjective Progress Note Date: 08/16/21 Principal diagnosis: Mitral valve regurgitation, tricuspid valve regurgitation, and coronary artery disease. Past medical history significant for coronary artery disease with prev ious myocardial infarction and PCI, hypertension, hyperlipidemia, chronic persistent atrial fibrillation on Coumadin for anticoagulation as an outpatient, status post cardioversion, sick sinus syndrome, status post [facility] permanent pacemaker placement in 2017, chronic systolic heart failure, atrial septal defect status post closure, history of MitraClip in 2019, chronic renal insufficiency, remote history of tobacco dependence, restrictive lung disease, obstructive sleep apnea, recurrent right pleural effusions with history of 4 previous thoracentesis, remote history of pneumonia, and a family history of premature coronary artery disease. Preoperative nasal screening positive for MSSA, treated. POD #19 mitral valve replacement with 31 mm Mosaic porcine valve prosthesis, tricuspid valve repair with 30 mm MC3 band, coronary artery bypass grafting 1 with reverse greater saphenous vein graft to the obtuse marginal coronary artery, endovascular vein harvest of the left greater saphenous vein, epi-aortic ultrasound, closure of the left atrial appendage, closure of atrial septal defect. Postoperative acute blood loss anemia and thrombocytopenia, expected given hemodilution and cardiopulmonary bypass pump. Coagulopathy, unexpected, last coumadin dose was on 07/22/21. Right pleural effusion, expected due to his history of preoperative right pleural effusion with history of 4 previous thoracentesis. Status post placement of right-sided pigtail catheter by interventional radiology, status post right sided Pleurx catheter placement. Leukocytosis, afebrile, sputum positive for Klebsiella pneumoniae. Altered mental status after surgery due to delirium from lack of sleep, resolved The patient was seen and examined in follow-up today 08/16/2021 at his bedside in the intensive care unit. Currently sitting up to the bedside chair, is awake, alert, and oriented 3. He is in no acute distress. Denies any complaints of shortness of breath at this time or surgical type pain. He continues to complain of a sore mouth and states that this is what is preventing him from eating. Oxygen saturation saturations are 98% on 5 L nasal cannula and he is achieving 1000 L on his incentive spirometry with much encouragement. Bedside telemetry issues showing a ventricular paced rhythm heart rate 70 bpm. His bedside nurse reports the patient ambulated in the intensive care unit hallway 4 yesterday with standby assistance from nursing and therapy staff. He has been afebrile the last 24 hours and remains on cefepime IV piggyback for Klebsiella pneumoniae in his sputum. Laboratory results this morning show a WBC count of 13.7, hemoglobin 8.9, hematocrit 30.7, platelets 188, sodium 141, potassium 4.7, BUN 133, creatinine 2.99, magnesium 3.4, PTT 25.2 and INR 2.5. He is currently on Coumadin 1 mg by mouth daily for anticoagulation. Right- sided Pleurx catheter is in place and was drained for 400 mL of pleural fluid yesterday 08/15/2021. He continues on Bumex 1 mg by mouth twice a day managed by nephrology. Continues to complain of a loose nonproductive cough. Chest x- ray reviewed. The patient remains hemodynamically stable and is currently on no inotropic or pressor support. Objective - Vital Signs Vital signs: Vital Signs Temp 97 F L 08/16/21 04:00 Pulse 70 08/16/21 07:37 Resp 11 L 08/16/21 07:00 BP 102/68 08/16/21 07:00 Pulse Ox 97 08/16/21 07:00 Intake & Output 08/15/21 08/16/21 08/16/21 18:59 06:59 18:59 Intake Total 300 340 Output Total 600 350 125 Balance -300 -10 -125 Weight 71 kg Intake: IV 50 100 Cefepime 1 gm In Sodium 50 100 Chloride 0.9% 50 ml @ 12. 5 mls/hr IVPB Q12HR PHIL Rx#:[id number] Intake, IV Titration 100 Amount Sodium Ferric Gluconat- 100 Sucrose 125 mg In Sodium Chloride 0.9% 100 ml @ 100 mls/hr IVPB DAILY PHIL Rx#:[id number] Oral 150 240 Output: Urine 600 350 125 Other: Voiding Method Urinal # Voids 0 1 # Bowel Movements 1 ABP, PAP, CO, CI - Last Documented Arterial Blood Pressure 119/35 Pulmonary Artery Pressure 35/28 Cardiac Output 5 Cardiac Index 2.7 - Exam CONSTITUTIONAL: Sitting up to the bedside chair in the intensive care unit, appears comfortable with episodes of restlessness, cooperative, and is in no a pparent acute distress. HEENT: Neck is supple, no JVD, no lymphadenopathy. Colby white macule to his right lateral tongue. RESPIRATORY: Lungs sounds with essentially clear throughout, diminished to his bilateral bases right greater than left. Respirations are symmetrical and nonlabored. Currently on 5 L nasal cannula, oxygen saturations 98%. Able to achieve 1000 mL on his incentive spirometry. Strong, loose nonproductive cough. CARDIOVASCULAR: Regular rhythm and rate. S1 and S2 present, negative for S3, gallop or murmur. Sternum is stable. Palpable peripheral pulses bilaterally. No calf pain or tenderness noted. Heart hugger in place with patient demonstrating appropriate use with encouragement. Knee-high SUMI hose and sequential compression devices in place to his bilateral lower extremities. Bedside telemetry showing V paced rhythm heart rate 70 bpm. Trace edema to his bilateral lower extremities. GASTROINTESTINAL: Abdomen soft, nontender, and slightly distended. Active bowel sounds present 4 quadrants. Tolerating diet. No guarding or rigidity. Bowel movement yesterday 08/14/2021. GENITOURINARY: Continues to void. INTEGUMENTARY: Skin is warm and dry with no evidence of clubbing or cyanosis. Midline sternal incision clean dry and well approximated, covered with dry intact dressing. Left lower extremity EVH site well approximated without redness or drainage. Right sided Pleurx catheter intact with dressing dry, clean and intact. Small scattered ecchymotic areas to his left face. NEUROLOGIC: Cranial nerves II through XII intact. No focal deficits. MUSKULOSKELETAL: Able to move all extremities, strength equal bilaterally, generalized weakness. PSYCHIATRIC: Alert and oriented 3, flat affect. Episodes of restlessness. INVASIVE LINES AND TUBES: Right sided Pleurx catheter. - Allied health notes Allied health notes reviewed: nursing - Labs CBC & Chem 7: 08/16/21 05:31 08/16/21 05:31 Labs: Abnormal Lab Results - Last 24 Hours (Table) 08/15/21 08/15/21 08/15/21 Range/Units 11:58 17:27 21:12 WBC (3.8-10.6) k/uL RBC (4.30-5.90) m/uL Hgb (13.0-17.5) gm/dL Hct (39.0-53.0) % MCV (80.0-100.0) fL MCHC (31.0-37.0) g/dL RDW (11.5-15.5) % Neutrophils # (1.3-7.7) k/uL Lymphocytes # (1.0-4.8) k/uL Macrocytosis PT (9.0-12.0) sec INR (<1.2) BUN (9-20) mg/dL Creatinine (0.66-1.25) mg/dL Glucose (74-99) mg/dL POC Glucose (mg/dL) 279 H 289 H 419 H (75-99) mg/dL Magnesium (1.6-2.3) mg/dL Total Protein (6.3-8.2) g/dL Albumin (3.5-5.0) g/dL 08/15/21 08/16/21 08/16/21 Range/Units 21:15 05:31 05:31 WBC 13.7 H (3.8-10.6) k/uL RBC 2.87 L (4.30-5.90) m/uL Hgb 8.9 L (13.0-17.5) gm/dL Hct 30.7 L (39.0-53.0) % MCV 106.9 H (80.0-100.0) fL MCHC 29.0 L (31.0-37.0) g/dL RDW 21.3 H (11.5-15.5) % Neutrophils # 12.7 H (1.3-7.7) k/uL Lymphocytes # 0.2 L (1.0-4.8) k/uL Macrocytosis Marked A PT 25.2 H (9.0-12.0) sec INR 2.5 H (<1.2) BUN (9-20) mg/dL Creatinine (0.66-1.25) mg/dL Glucose (74-99) mg/dL POC Glucose (mg/dL) 329 H (75-99) mg/dL Magnesium (1.6-2.3) mg/dL Total Protein (6.3-8.2) g/dL Albumin (3.5-5.0) g/dL 08/16/21 08/16/21 Range/Units 05:31 06:56 WBC (3.8-10.6) k/uL RBC (4.30-5.90) m/uL Hgb (13.0-17.5) gm/dL Hct (39.0-53.0) % MCV (80.0-100.0) fL MCHC (31.0-37.0) g/dL RDW (11.5-15.5) % Neutrophils # (1.3-7.7) k/uL Lymphocytes # (1.0-4.8) k/uL Macrocytosis PT (9.0-12.0) sec INR (<1.2) BUN 133 H* (9-20) mg/dL Creatinine 2.99 H (0.66-1.25) mg/dL Glucose 157 H (74-99) mg/dL POC Glucose (mg/dL) 176 H (75-99) mg/dL Magnesium 3.4 H (1.6-2.3) mg/dL Total Protein 5.8 L (6.3-8.2) g/dL Albumin 3.0 L (3.5-5.0) g/dL - Imaging and Cardiology Chest x-ray: report reviewed, image reviewed Assessment and Plan Assessment: 1. Mitral valve regurgitation, history of MitraClip in 2019, status post post mitral valve replacement 2. Tricuspid valve regurgitation, status post tricuspid valve repair 3. Coronary artery disease with previous myocardial infarction and PCI, status post 1 vessel CABG 4. History of hypertension, currently hypotensive on levo and dopamine 5. Chronic atrial fibrillation on Coumadin for anticoagulation status post cardioversion, status post closure of the left atrial appendage 6. Sick sinus syndrome status post [facility] permanent pacemaker placement in 2016 7. Chronic systolic heart failure 8. Atrial septal defect status post closure 9. Chronic kidney disease stage IIIB with a baseline creatinine of 1.6-1.7 10. Previous tobacco dependence 11. Severe restrictive lung disease, preoperative FEV1 47% of predicted 12. Recurrent right-sided pleural effusion, patient had right sided thoracentesis twice in 2019 and twice in 2020, status post right chest pigtail catheter placement by IR, status post right-sided Pleurx catheter placement 13. Obstructive sleep apnea, with home CPAP use 14. Remote history of pneumonia 15. Family history of premature coronary artery disease 16. Postoperative acute blood loss anemia and thrombocytopenia, expected 17. Coagulopathy, unexpected and resolved 18. Leukocytosis, elevated pro-calcitonin, sputum culture positive for Klebsiella pneumoniae 19. Acute kidney injury secondary to ATN, possibly secondary to hypotension Plan: 1. Continue low-dose aspirin, statin, and low-dose beta shila. 2. We will hold his Coumadin today, continue to monitor daily PT/INR. INR today is 2.5. 3. Wean O2 as tolerated. Encourage incentive spirometry use 10 times every hour while awake. Bronchodilators per pulmonology. 4. Increase activity, ambulate minimum 4 times in the hallway daily. Out of bed for all meals. PT/OT/cardiac rehab following. 5. Will monitor daily labs and chest x-rays. Antibiotics per pulmonology/criti berenice care management. Diuresis per nephrology, the patient is currently on Bumex 1 mg by mouth twice a day. Avoid nephrotoxic agents. 6. GI/DVT prophylaxis. 7. Insulin management per primary care service. The patient is not diabetic, preoperative hemoglobin A1c 5.8%. 8. Pain control per current medication regimen. Avoid narcotics. 9. Strict accurate intake and output. Daily weights 10. Encourage oral intake, encourage supplements to improve nutrition. Continue Kools solution oral rinse. 11. Discharge planning in progress. Anticipate discharge to [facility] hopefully Wednesday08/18/2021. 12. More recommendations to follow based on patient's clinical course. Time with Patient: Greater than 30
[2021-08-16] MEDS: ACETAMINOPHEN TAB 325 MG TAB PO PRN (09:25)
[2021-08-16] MEDS: MAG HYDROX/AL HYDROX/SIMETH 30 ML, LIDOCAINE VISCOUS 2% 30 ML, NYSTATIN 100,000 UNIT/ML... PO SCH ×9 (09:26→23:35)
[2021-08-16] MEDS: SODIUM FERRIC GLUCONAT-SUCROSE 125 MG in SODIUM CHLORIDE 0.9% 100 ML IVPB SCH (09:26)
[2021-08-16] MEDS: ASCORBIC ACID 500 MG TAB PO SCH (09:26)
[2021-08-16] MEDS: FERROUS SULFATE 325 MG TAB PO SCH (09:27)
[2021-08-16] MEDS: FOLIC ACID 1 MG TAB PO SCH (09:27)
[2021-08-16] MEDS: ASPIRIN 81 MG PO SCH (09:27)
[2021-08-16] MEDS: SERTRALINE 50 MG TAB PO SCH (09:27)
[2021-08-16] MEDS: BUMETANIDE 1 MG TAB PO SCH ×2 (09:27→16:48)
[2021-08-16] MEDS: allopurinoL 100 MG TAB PO SCH (09:27)
[2021-08-16] MEDS: CEFEPIME 1 GM in SODIUM CHLORIDE 0.9% 50 ML IVPB SCH (09:28)
--- NOTE | 2021-08-16 09:59 | PN ---
PROGRESS NOTE This gentleman is status post mitral valve replacement with a tissue valve, tricuspid valve repair and single-vessel bypass. He is making slow progress. He also has a PleurX tube on the right side and he is draining about 400 mL of pleural fluid. His white count has gone up. Creatinine has gone up also mildly. He feels weaker than usual. However, he is in atrial fibrillation with back-up pacemaker. His vitals are stable. JVD is evident; 1 cm. S1-S2 with irregular rhythm, short systolic murmur at the apex. Lungs reveal diminished air entry. Abdomen is soft. Rest of physical exam unchanged. Continue current efforts. Prognosis remains guarded. No new suggestions. MMODL / IJN: [id number] / MTDDesirae
--- NOTE | 2021-08-16 10:12 | P.PN ---
Subjective Progress Note Date: 08/16/21 This is a 81-year-old male patient who is currently postop day 2 from mitral valve replacement, tricuspid valve repair and single-vessel bypass grafting SVG to obtuse marginal. Patient has a past medical history of valvular heart disease with symptoms including shortness of breath with exertion and unable to perform many of his activities of daily living. Additional medical history includes coronary artery disease with previous cardiac infarction and PCI, hypertension, chronic atrial fibrillation on Coumadin for and configuration status post cardioversion, sick sinus syndrome with [facility] permanent pacemaker placement 2016, chronic systolic heart failure, atrial septal defect status post closure with previous mitral clip in 2019 at [facility], chronic renal insufficiency, obstructive sleep apnea, reoccurring right-sided pleural effusions with previous thoracentesis 4. At this time patient is currently resting comfortably in the intensive care unit. Patient was successfully extubated per protocol currently on IV dopamine and Levophed. INR elevated at 6.5. hemoglobin 6.6. 1 unit PRBCs, 2 units of FFP have been ordered per surgical services INR recheck ordered for noon. Chest x-ray the same showing cardiomegaly with moderate to large right and small sized bilateral pleural effusion collection and/or effusions with mild to moderate central vascular congestion and bibasilar opacities favoring atelectasis along with left-sided chest tubes are redemonstrated. Per surgical services possible plans for Pleurx catheter placement. This time patient is resting comfortably in chair patient remains on high flow oxygen. Blood sugars have remained stable per nursing staff will transition off insulin drip to sliding scale coverage. Cardiology and critical care services are following. On 07/31/2021 patient having intermittent episodes of confusion. INR improving to 2.3. Hemoglobin 7.6. Chest tubes remain in place. Cardiology and critical care services are following. Patient remains on high flow nasal cannula. Current vitals heart rate 80, respiratory rate 16, blood pressure 104/51 On 08/01/2021 patient is more alert currently resting comfortably in chair. Sitter is at bedside. Patient remains on high flow nasal cannula. Patient remains on IV Bumex. Cordis, chest tube and right pigtail catheter all remain in place. On 08/02/2021 patient was seen and examined in the ICU he is alert and oriented 3 in no apparent distress, sitting up in a chair, he is maintained on high flow oxygen, with FiO2 of 45, pulse ox is 93% temperature 97.2 pulse 80 respiration 22 blood pressure 129/46, he denies any fever or chills no headache or dizziness no chest pain no shortness of breath no cough no nausea no vomiting no abdominal pain no diarrhea and no urinary symptoms, chest tube is still in place, he is maintained on Bumex 2 mg IV every 8 hours On 08/03/2021 patient remains in the intensive care unit. Patient is alert and oriented sitting comfortably in chair. Discussed case with surgical team Bumex has been DC'd. Creatinine 2.25 bun 70. Chest tube remains in place. Patient remains on high flow 60%. This time patient denies chest pain or shortness socorro th. Patient denies diarrhea. Patient denies any urinary burning or frequency On 08/04/2021 patient was seen and examined, in the ICU, he is alert and oriented 3 in no apparent distress, there is no fever or chills no headache or dizziness no chest pain no shortness of breath no cough no nausea or vomiting no abdominal pain no diarrhea and no urinary symptoms he still has a left sided chest to and he is complaining of discomfort at the site of the 2 he is maintained on oxygen at 8 L nasal cannula his pulse ox is 96% blood pressure 126/62 pulse 63 respiration 24 temperature 97.9 On 08/05/2021 patient was seen and examined in the ICU he is alert and oriented 3 in no apparent distress he is sitting up in a chair he is complaining of discomfort in the left chest at the site of the chest to he is also complaining of pain when coughing otherwise he denies any complaints at this time his vital exam reveals a temperature of 98 pulse 65 respiration 30 blood pressure 136/66 pulse ox 98% on oxygen 3 L nasal cannula, white blood count is 14.4 hemoglobin 8.0 platelet count 192 INR 1.2 BUN 85 creatinine 2.2 On 08/06/2021 patient remains in the intensive care unit. Patient is alert and oriented 3. White blood cell increasing to 15.3 per. Per critical care services will check UA and monitor fever pattern no need for antibiotic treatment at this time. Creatinine 2.53 and bun 89. Nephrology services are following. Current vitals temp 97.6, heart rate 64, pulse ox 94% on 3 L, blood pressure 166/57 08/07/2021 patient remains in the intensive care unit confusion has improved. Nephrology services are following. Patient remains with significant output from chest tubes. Current vitals temp 97.9, respiratory rate 22, blood pressure 124/60 to 98% on 5 L On 08/08/2021 patient is alert and oriented 3 currently sitting up in the care unit. Per nursing staff patient has been up ambulating with assistance. Still having significant output from chest tubes. Patient also getting treated for oral thrush. Discharge planning is in progress patient will likely need inpatient rehab upon discharge On 08/09/2021 patient was seen and examined in the ICU, he is sitting up in a chair, he is complaining of discomfort in his mouth due to thrush, he also has occasional cough otherwise he denies any complaints there is no fever or chills no headache or dizziness, no chest pain or shortness of breath no nausea or vomiting no abdominal pain no diarrhea no blood in the stools no burning with urination no frequency or urgency and no hematuria On 08/10/2021 patient remains in the intensive care unit. Currently working with physical therapy. Patient has positive sputum culture. Creatinine 2.7 bun 110. Nephrology services are following. Patient still having significant outpu t from chest tubes. Discussed case with cardiothoracic surgery no plans to remove chest tubes at this time. On 08/11/2021 patient was seen and examined in the ICU, he is sitting up in a chair, he is feeling somewhat better, he is complaining of discomfort in his mouth due to thrush, he also has occasional cough otherwise he denies any complaints there is no fever or chills no headache or dizziness, no chest pain or shortness of breath no nausea or vomiting no abdominal pain no diarrhea no blood in the stools no burning with urination no frequency or urgency and no hematuria. On 08/12/2021 patient remains in the intensive care unit. Nephrology services are following. Patient remains on IV antibiotics. Patient still draining significant amount from chest tube. Diet and ambulation encouraged. At this time patient denies chest pain or shortness of breath. Patient denies nausea vomiting or diarrhea. Patient denies any urinary burning or frequency On 08/13/2021 patient is alert and oriented 3 currently sitting up in chair. Patient remains in the intensive care unit chest tubes in place. White blood cell 13.8, hemoglobin 8.7, creatinine 2.84 and bun 126. Patient remains on 8 L nasal cannula. Current vitals temp 96.5, heart rate 70, her story rate 23, blood pressure 100/67 patient satting 90% on 8 L On 08/14/2021, patient was seen and examined in the ICU he is alert and oriented 3 in no apparent distress, chest tube is still in place, patient is scheduled for a right Pleurx catheter placement today, he is complaining of chest discomfort and shortness of breath otherwise he denies any complaints on 08/15/2021 patient remains in the intensive care unit. Patient is alert and oriented 3. creatinine 2.76, bun 128. Patient remains on IV cefepime. patient currently on 5 L high flow nasal cannula. Right Pleurx catheter placed yesterday with 400 mL serous fluid On 08/16/2021 patient is alert and oriented 3 sitting in chair. Patient remains in the intensive care unit. Patient having elevated blood sugars but per nursing staff patient was on steroids yesterday. Patient was having elevated blood sugars prior to steroids will add long-acting insulin coverage Levemir 10 units. Creatinine 2.99 bun 133. Patient down to 4 L nasal cannula. Increased diet and ambulation encouraged. As of 08/17/[address] Florez will be covering for Dr. Mondragon Objective - Vital Signs Vital signs: Vital Signs Temp 97 F L 08/16/21 04:00 Pulse 70 08/16/21 07:37 Resp 11 L 08/16/21 07:00 BP 102/68 08/16/21 07:00 Pulse Ox 97 08/16/21 07:00 Intake & Output 08/15/21 08/16/21 08/16/21 18:59 06:59 18:59 Intake Total 300 340 Output Total 600 350 125 Balance -300 -10 -125 Weight 71 kg Intake: IV 50 100 Cefepime 1 gm In Sodium 50 100 Chloride 0.9% 50 ml @ 12. 5 mls/hr IVPB Q12HR PHIL Rx#:[id number] Intake, IV Titration 100 Amount Sodium Ferric Gluconat- 100 Sucrose 125 mg In Sodium Chloride 0.9% 100 ml @ 100 mls/hr IVPB DAILY PHIL Rx#:[id number] Oral 150 240 Output: Urine 600 350 125 Other: Voiding Method Urinal # Voids 0 1 # Bowel Movements 1 ABP, PAP, CO, CI - Last Documented Arterial Blood Pressure 119/35 Pulmonary Artery Pressure 35/28 Cardiac Output 5 Cardiac Index 2.7 - Exam In general patient is alert and oriented x 3 in no distress HEENT head normocephalic and atraumatic Neck is supple no JVD no goiter no lymphadenopathy no carotid bruit Chest examination reveals a scattered crackles in both lung sousa no wheezing Cardiac exam reveals regular heart sounds S1 and S2 no gallops no murmurs Abdomen is soft nontender no organomegaly with normal bowel sounds Extremity exam reveals no edema no cyanosis or clubbing Neurological examination reveals no gross focal deficits - Labs CBC & Chem 7: 08/16/21 05:31 08/16/21 05:31 Labs: Abnormal Lab Results - Last 24 Hours (Table) 08/15/21 08/15/21 08/15/21 Range/Units 11:58 17:27 21:12 WBC (3.8-10.6) k/uL RBC (4.30-5.90) m/uL Hgb (13.0-17.5) gm/dL Hct (39.0-53.0) % MCV (80.0-100.0) fL MCHC (31.0-37.0) g/dL RDW (11.5-15.5) % Neutrophils # (1.3-7.7) k/uL Lymphocytes # (1.0-4.8) k/uL Macrocytosis PT (9.0-12.0) sec INR (<1.2) BUN (9-20) mg/dL Creatinine (0.66-1.25) mg/dL Glucose (74-99) mg/dL POC Glucose (mg/dL) 279 H 289 H 419 H (75-99) mg/dL Magnesium (1.6-2.3) mg/dL Total Protein (6.3-8.2) g/dL Albumin (3.5-5.0) g/dL 08/15/21 08/16/21 08/16/21 Range/Units 21:15 05:31 05:31 WBC 13.7 H (3.8-10.6) k/uL RBC 2.87 L (4.30-5.90) m/uL Hgb 8.9 L (13.0-17.5) gm/dL Hct 30.7 L (39.0-53.0) % MCV 106.9 H (80.0-100.0) fL MCHC 29.0 L (31.0-37.0) g/dL RDW 21.3 H (11.5-15.5) % Neutrophils # 12.7 H (1.3-7.7) k/uL Lymphocytes # 0.2 L (1.0-4.8) k/uL Macrocytosis Marked A PT 25.2 H (9.0-12.0) sec INR 2.5 H (<1.2) BUN (9-20) mg/dL Creatinine (0.66-1.25) mg/dL Glucose (74-99) mg/dL POC Glucose (mg/dL) 329 H (75-99) mg/dL Magnesium (1.6-2.3) mg/dL Total Protein (6.3-8.2) g/dL Albumin (3.5-5.0) g/dL 08/16/21 08/16/21 Range/Units 05:31 06:56 WBC (3.8-10.6) k/uL RBC (4.30-5.90) m/uL Hgb (13.0-17.5) gm/dL Hct (39.0-53.0) % MCV (80.0-100.0) fL MCHC (31.0-37.0) g/dL RDW (11.5-15.5) % Neutrophils # (1.3-7.7) k/uL Lymphocytes # (1.0-4.8) k/uL Macrocytosis PT (9.0-12.0) sec INR (<1.2) BUN 133 H* (9-20) mg/dL Creatinine 2.99 H (0.66-1.25) mg/dL Glucose 157 H (74-99) mg/dL POC Glucose (mg/dL) 176 H (75-99) mg/dL Magnesium 3.4 H (1.6-2.3) mg/dL Total Protein 5.8 L (6.3-8.2) g/dL Albumin 3.0 L (3.5-5.0) g/dL Assessment and Plan Assessment: 1. Status post mitral valve replacement, tricuspid valve repair and single- vessel bypass grafting. 2. Right-sided pleural effusion 3. Coagulopathy. Resolved 4. History of congestive heart failure 5. History of valvular heart disease with previous mitral valve repair with a mitral clip at [facility] 6. History of coronary artery disease 7. History of hyperlipidemia 8. History of renal insufficiency 9. Previous history of atrial fibrillation 10. Sputum culture positive for Klebsiella pneumonia patient started on IV antibiotics 11. Hyperglycemia. A1c was 5.8 upon admission patient still having elevated blood sugars will add Levemir 10 units and sliding scale coverage Thank you for this consultation we will continue to follow patient closely throughout stay Patient remains in the intensive care unit Repeat labs ordered Patient to be transitioned off IV insulin to sliding scale coverage. A1c 5.8 Chest tubes remain in place Right-sided Pleurx pigtail in place Ambulation encouraged Diet encouraged
--- NOTE | 2021-08-16 11:03 | P.PN ---
Subjective Progress Note Date: 08/10/21 Principal diagnosis: Postoperative day # 19 status post mitral valve replacement, tricuspid valve repair and coronary artery bypass grafting times one reverse saphenous vein graft to obtuse marginal artery This is an 81-year-old white male seen today on follow-up,08/11/2021, patient remains in the ICU, he is now on 4 L nasal cannula, seems to be doing fairly well considering his multiple medical problems continues to have left-sided chest tube in place and a Pleurx catheter on the right side. Draining about 100 mL of serosanguineous fluid in each overnight. Remains empirically on Zosyn. Remains on Zosyn for Klebsiella pneumonia infection, this was cultured from the sputum. Remains in controlled atrial fibrillation. However the patient is very comfortable, and does not seem to be in any distress. He does have intermittent episodes of confusion according to the nurse, but when I saw him today he seems to be quite reasonable. And did not seem to be confused. Chest x-ray showed mostly pleural parenchymal density in the right midlung most likely related to chronic loculated right-sided pleural effusion. Reevaluated today on 08/14/2021, patient remains in the ICU, he remains marginal at best. Patient is developing some congestive heart failure changes noted on the chest x-ray. Continues to have intermittent cough, intermittent wheezing, however there is no fever, no chills, no hemoptysis. He is on 8 L high flow nasal cannula. Achieving about a liter with his incentive spirometer. His atrial fibrillation is well controlled. Has been ambulating in the hallway. Remains on antibiotics in the form of cefepime for Klebsiella in his sputum. Today the patient will be placed on Bumex drip, his left sided chest tube and the right-sided pigtail catheter were removed yesterday. Being considered for Pleurx catheter placement on the right side today. WBC count is 13.6 hemoglobin is 8.6. Electrolytes are normal BUN is 119 creatinine 2.6, improved compared to the last 3 days. Reevaluated today on 08/15/2021, patient remains in the ICU, basically about the same, patient had a Pleurx catheter placed by thoracic surgery, and it is yet to be connected to collection bag. Patient is doing fairly well considering his multiple medical issues that we have been dealing with for the last 2 weeks. Patient denies any pain other than mouth pain, he has intermittent cough, remains on oxygen at 5 L high flow. Patient is hemodynamically stable, chest x- ray is basically about the same. Continues to have small right-sided pleural effusion. Patient was reevaluated today on 08/16/2021, patient is sitting in a bedside chair, he is awake alert oriented 3, does not seem to be in any distress. Patient is having less cough and less wheezing, less shortness of breath, he was on Solu-Medrol which was discontinued by thoracic surgery. Remains on broncho dilators, overall the patient is improving but rather slowly. Remains on antibiotics for his Klebsiella pneumoniae infection in the sputum. Chest x-ray today is basically stable, continues to have cardiomegaly and pulmonary vascular congestion with small right-sided pleural effusion, and the patient has a right Pleurx catheter. WBC count is 15.7 hemoglobin is 8.9, INR is 2.5. Lites are normal, renal profile remains abnormal with a BUN of 133 and creatinine 2.99. Patient will eventually need to be placed, Objective - Vital Signs Vital signs: Vital Signs Temp 97 F L 08/16/21 04:00 Pulse 70 08/16/21 07:37 Resp 11 L 08/16/21 07:00 BP 102/68 08/16/21 07:00 Pulse Ox 97 08/16/21 07:00 Intake & Output 08/15/21 08/16/21 08/16/21 18:59 06:59 18:59 Intake Total 300 340 Output Total 600 350 125 Balance -300 -10 -125 Weight 71 kg Intake: IV 50 100 Cefepime 1 gm In Sodium 50 100 Chloride 0.9% 50 ml @ 12. 5 mls/hr IVPB Q12HR [facility] Rx#:[id number] Intake, IV Titration 100 Amount Sodium Ferric Gluconat- 100 Sucrose 125 mg In Sodium Chloride 0.9% 100 ml @ 100 mls/hr IVPB DAILY [facility]IL Rx#:[id number] Oral 150 240 Output: Urine 600 350 125 Other: Voiding Method Urinal # Voids 0 1 # Bowel Movements 1 ABP, PAP, CO, CI - Last Documented Arterial Blood Pressure 119/35 Pulmonary Artery Pressure 35/28 Cardiac Output 5 Cardiac Index 2.7 - Exam Physical Exam: Revealed an 81-year-old white male on 4 L nasal cannula. Head: Atraumatic, normocephalic. HEENT:[Neck is supple.] [No neck masses.] [No thyromegaly.] [No JVD.] Chest: [Symmetrical chest expansion, minimal crackles at the base. Right-sided Pleurx catheter is noted. Cardiac Exam: Irregular irregular rhythm. [Normal S1 and S2, no S3 gallop, 2/6 systolic murmur thought the precordium. Abdomen: [Soft, nontender, no megaly, no rebound, no guarding, normal bowel sounds.] Extremities: [No clubbing, no edema, no cyanosis.] Neurological Exam: [No focal neurologic deficit.] No gross focal neurologic deficits Psychiatric: Normal mood, affect and normal mental status examination. Skin: No rashes. - Labs CBC & Chem 7: 08/16/21 05:31 08/16/21 05:31 Labs: Abnormal Lab Results - Last 24 Hours (Table) 08/15/21 08/15/21 08/15/21 Range/Units 11:58 17:27 21:12 WBC (3.8-10.6) k/uL RBC (4.30-5.90) m/uL Hgb (13.0-17.5) gm/dL Hct (39.0-53.0) % MCV (80.0-100.0) fL MCHC (31.0-37.0) g/dL RDW (11.5-15.5) % Neutrophils # (1.3-7.7) k/uL Lymphocytes # (1.0-4.8) k/uL Macrocytosis PT (9.0-12.0) sec INR (<1.2) BUN (9-20) mg/dL Creatinine (0.66-1.25) mg/dL Glucose (74-99) mg/dL POC Glucose (mg/dL) 279 H 289 H 419 H (75-99) mg/dL Magnesium (1.6-2.3) mg/dL Total Protein (6.3-8.2) g/dL Albumin (3.5-5.0) g/dL 08/15/21 08/16/21 08/16/21 Range/Units 21:15 05:31 05:31 WBC 13.7 H (3.8-10.6) k/uL RBC 2.87 L (4.30-5.90) m/uL Hgb 8.9 L (13.0-17.5) gm/dL Hct 30.7 L (39.0-53.0) % MCV 106.9 H (80.0-100.0) fL MCHC 29.0 L (31.0-37.0) g/dL RDW 21.3 H (11.5-15.5) % Neutrophils # 12.7 H (1.3-7.7) k/uL Lymphocytes # 0.2 L (1.0-4.8) k/uL Macrocytosis Marked A PT 25.2 H (9.0-12.0) sec INR 2.5 H (<1.2) BUN (9-20) mg/dL Creatinine (0.66-1.25) mg/dL Glucose (74-99) mg/dL POC Glucose (mg/dL) 329 H (75-99) mg/dL Magnesium (1.6-2.3) mg/dL Total Protein (6.3-8.2) g/dL Albumin (3.5-5.0) g/dL 08/16/21 08/16/21 Range/Units 05:31 06:56 WBC (3.8-10.6) k/uL RBC (4.30-5.90) m/uL Hgb (13.0-17.5) gm/dL Hct (39.0-53.0) % MCV (80.0-100.0) fL MCHC (31.0-37.0) g/dL RDW (11.5-15.5) % Neutrophils # (1.3-7.7) k/uL Lymphocytes # (1.0-4.8) k/uL Macrocytosis PT (9.0-12.0) sec INR (<1.2) BUN 133 H* (9-20) mg/dL Creatinine 2.99 H (0.66-1.25) mg/dL Glucose 157 H (74-99) mg/dL POC Glucose (mg/dL) 176 H (75-99) mg/dL Magnesium 3.4 H (1.6-2.3) mg/dL Total Protein 5.8 L (6.3-8.2) g/dL Albumin 3.0 L (3.5-5.0) g/dL Assessment and Plan Assessment: Impression: Mitral valve regurgitation, status post mitral valve replacement, postoperative day #19 Status post Pleurx catheter placement in the right pleural space, postoperative day #2 Tricuspid valve regurgitation, status post tricuspid valve repair Coronary artery disease, status post 1 vessel CABG, postoperative day #19 Benign essential hypertension Chronic atrial fibrillation History of sick sinus syndrome and previous pacemaker placement in 2017 Chronic systolic congestive heart failure Atrial septal defect post closure Acute on chronic renal failure, baseline creatinine 1.6-1.7, being followed by nephrology. Obstructive sleep apnea syndrome Chronic and recurrent right-sided pleural effusion requiring multiple thoracentesis procedures and now he continues to have a pigtail catheter in place. The pigtail catheter was removed on 08/13/21. Postoperative acute blood loss anemia and thrombocytopenia, expected Positive sputum for Klebsiella pneumonia, suspect Klebsiella pneumonia tracheobronchitis, on cefepime Recommendation: Continue present supportive care measures Discontinue cefepime. Consider transferring patient out of the ICU and the patient will definitely need placement. Continue ambulation. Continue incentive spirometry Prognosis remains guarded. Continue bronchodilators off Solu-Medrol, discontinued by thoracic surgery Follow-up when necessary. We'll continue to follow Time with Patient: Less than 30
[2021-08-16 12:04] LABS: Glucose,Whole Blood 195 mg/dL (75-99)
--- NOTE | 2021-08-16 12:16 | P.PN ---
Subjective Progress Note Date: 08/16/21 Follow-up for acute kidney injury, family at bedside. Urine output of 950 ML's in the last 24 hours. Objective - Vital Signs Vital signs: Vital Signs Temp 97 F L 08/16/21 04:00 Pulse 70 08/16/21 11:27 Resp 11 L 08/16/21 07:00 BP 102/68 08/16/21 07:00 Pulse Ox 97 08/16/21 07:00 Intake & Output 08/15/21 08/16/21 08/16/21 18:59 06:59 18:59 Intake Total 300 340 Output Total 600 350 125 Balance -300 -10 -125 Weight 71 kg Intake: IV 50 100 Cefepime 1 gm In Sodium 50 100 Chloride 0.9% 50 ml @ 12. 5 mls/hr IVPB Q12HR [facility] Rx#:[id number] Intake, IV Titration 100 Amount Sodium Ferric Gluconat- 100 Sucrose 125 mg In Sodium Chloride 0.9% 100 ml @ 100 mls/hr IVPB DAILY [facility]IL Rx#:[id number] Oral 150 240 Output: Urine 600 350 125 Other: Voiding Method Urinal # Voids 0 1 # Bowel Movements 1 ABP, PAP, CO, CI - Last Documented Arterial Blood Pressure 119/35 Pulmonary Artery Pressure 35/28 Cardiac Output 5 Cardiac Index 2.7 - Exam No acute distress S1-S2 heard Decreased breath sounds Abdomen distended Edema - Labs CBC & Chem 7: 08/16/21 05:31 08/16/21 05:31 Labs: Abnormal Lab Results - Last 24 Hours (Table) 08/15/21 08/15/21 08/15/21 Range/Units 17:27 21:12 21:15 WBC (3.8-10.6) k/uL RBC (4.30-5.90) m/uL Hgb (13.0-17.5) gm/dL Hct (39.0-53.0) % MCV (80.0-100.0) fL MCHC (31.0-37.0) g/dL RDW (11.5-15.5) % Neutrophils # (1.3-7.7) k/uL Lymphocytes # (1.0-4.8) k/uL Macrocytosis PT (9.0-12.0) sec INR (<1.2) BUN (9-20) mg/dL Creatinine (0.66-1.25) mg/dL Glucose (74-99) mg/dL POC Glucose (mg/dL) 289 H 419 H 329 H (75-99) mg/dL Magnesium (1.6-2.3) mg/dL Total Protein (6.3-8.2) g/dL Albumin (3.5-5.0) g/dL 08/16/21 08/16/21 08/16/21 Range/Units 05:31 05:31 05:31 WBC 13.7 H (3.8-10.6) k/uL RBC 2.87 L (4.30-5.90) m/uL Hgb 8.9 L (13.0-17.5) gm/dL Hct 30.7 L (39.0-53.0) % MCV 106.9 H (80.0-100.0) fL MCHC 29.0 L (31.0-37.0) g/dL RDW 21.3 H (11.5-15.5) % Neutrophils # 12.7 H (1.3-7.7) k/uL Lymphocytes # 0.2 L (1.0-4.8) k/uL Macrocytosis Marked A PT 25.2 H (9.0-12.0) sec INR 2.5 H (<1.2) BUN 133 H* (9-20) mg/dL Creatinine 2.99 H (0.66-1.25) mg/dL Glucose 157 H (74-99) mg/dL POC Glucose (mg/dL) (75-99) mg/dL Magnesium 3.4 H (1.6-2.3) mg/dL Total Protein 5.8 L (6.3-8.2) g/dL Albumin 3.0 L (3.5-5.0) g/dL 08/16/21 08/16/21 Range/Units 06:56 11:53 WBC (3.8-10.6) k/uL RBC (4.30-5.90) m/uL Hgb (13.0-17.5) gm/dL Hct (39.0-53.0) % MCV (80.0-100.0) fL MCHC (31.0-37.0) g/dL RDW (11.5-15.5) % Neutrophils # (1.3-7.7) k/uL Lymphocytes # (1.0-4.8) k/uL Macrocytosis PT (9.0-12.0) sec INR (<1.2) BUN (9-20) mg/dL Creatinine (0.66-1.25) mg/dL Glucose (74-99) mg/dL POC Glucose (mg/dL) 176 H 195 H (75-99) mg/dL Magnesium (1.6-2.3) mg/dL Total Protein (6.3-8.2) g/dL Albumin (3.5-5.0) g/dL Assessment and Plan Assessment: #1 nonoliguric acute kidney injury secondary to hemodynamic ATN -Creeping creatinine rule out urinary retention #2 chronic kidney disease stage III b suspect nephrosclerosis with a baseline creatinine of 1.6-1.7 MG per DL. #3 acute blood loss anemia status post transfusions #4 volume overload on diuretics. #5 metabolic acidosis, resolved. Plan: #1 renal function stable. BUN >> creatinine, suspect catabolic state. -Not on steroids or active GI bleed. #2 continue with Bumex 1 mg twice a day for now #3 bladder scan to rule out urinary retention #4 daily renal labs #5 no acute indication for renal replacement therapy at this time.
[2021-08-16 16:05] LABS: Glucose,Whole Blood 184 mg/dL (75-99)
[2021-08-16 20:56] LABS: Glucose,Whole Blood 168 mg/dL (75-99)
[2021-08-16] MEDS: ATORVASTATIN 40 MG TAB PO SCH (23:27)
[2021-08-16] MEDS: CALCIUM ACETATE 667 MG TAB PO SCH (23:27)
[2021-08-16] MEDS: INSULIN DETEMIR (LEVEMIR) 100 UNIT/ML SYR SQ SCH (23:27)
[2021-08-16 23:33] LABS: Glucose,Whole Blood 161 mg/dL (75-99)
[2021-08-17] MEDS: ACETAMINOPHEN TAB 325 MG TAB PO PRN ×2 (01:40→16:53)
[2021-08-17 06:10] LABS: INR 2.6 (<1.2); Prothrombin Time 25.9 sec (9.0-12.0)
[2021-08-17 06:11] LABS: Anisocytosis Moderate; Basophils % (A) 0 %; Eosinophils % (A) 0 %; HGB 8.8 gm/dL (13.0-17.5); Hypochromasia Marked; Lymphocytes # (A) 0.3 k/uL (1.0-4.8); Lymphocytes % (A) 2 %; MCH 30.1 pg (25.0-35.0); MCHC 28.2 g/dL (31.0-37.0); MCV 106.6 fL (80.0-100.0); Mean Platelet Volume 10.3; Monocytes # (A) 0.8 k/uL (0-1.0); Monocytes % (A) 6 %; Neutrophils # (A) 11.8 k/uL (1.3-7.7); Neutrophils % (A) 90 %; Platelet Count 163 k/uL (150-450); Poikilocytosis Moderate; RBC 2.91 m/uL (4.30-5.90); RDW 21.5 % (11.5-15.5); WBC 13.1 k/uL (3.8-10.6)
[2021-08-17 06:13] LABS: Macrocytosis Marked
[2021-08-17 06:44] LABS: Albumin 2.8 g/dL (3.5-5.0); Calcium 8.4 mg/dL (8.4-10.2); Potassium 4.3 mmol/L (3.5-5.1); Total Bilirubin 0.9 mg/dL (0.2-1.3); Total Protein 5.7 g/dL (6.3-8.2)
[2021-08-17 06:56] LABS: Glucose,Whole Blood 91 mg/dL (75-99)
--- NOTE | 2021-08-17 07:21 | XR ---
EXAMINATION TYPE: XR chest 1V portable DATE OF EXAM: 08/17/2021 HISTORY: Shortness of breath. COMPARISON: 08/16/2021 TECHNIQUE: Single view of the chest is submitted. FINDINGS: Tiny right apical pneumothorax redemonstrated. Persistent pulmonary venous congestion with cardiomegaly and pleural parenchymal density right lower lobe. The heart is stable. Hilar and mediastinal structures are within normal limits. Degenerative changes are seen of the dorsal spine. IMPRESSION: 1. Essentially stable chest.
[2021-08-17] MEDS: IPRATROPIUM-ALBUTEROL 3 ML NEB INHALATION SCH ×4 (08:15→20:31)
[2021-08-17] MEDS: SYMBICORT 160-4.5 MCG INHALER INHALATION SCH ×2 (08:15→20:31)
--- NOTE | 2021-08-17 08:30 | PN ---
PROGRESS NOTE Mr. Mascorro had some epistaxis yesterday. He is status post mitral valve replacement, tricuspid valve repair and bypass surgery. His recovery has been slow. He has a PleurX tube on the right side. He apparently was slightly hypotensive and we will discontinue the metoprolol 12.5 mg daily. Today his pressure is 108/70, pulse rate is about 70 per minute. He has underlying atrial fibrillation with paced beats. S1, S2 heard normally. Short systolic murmur is audible at the apex and base. Lungs reveal diminished air entry. Overall there is improvement. Abdomen is soft. Lower extremities reveal diminished pulses. From a cardiac standpoint, we will discontinue metoprolol and see how he does. Overall prognosis remains guarded. MMODL / IJN: [id number] /
[2021-08-17] MEDS ORDERED: BUMETANIDE 1 MG TAB PO SCH (09:00)
--- NOTE | 2021-08-17 09:14 | P.PN ---
Subjective Progress Note Date: 08/17/21 Principal diagnosis: Mitral valve regurgitation, tricuspid valve regurgitation, and coronary artery disease. Past medical history significant for coronary artery disease with prev ious myocardial infarction and PCI, hypertension, hyperlipidemia, chronic persistent atrial fibrillation on Coumadin for anticoagulation as an outpatient, status post cardioversion, sick sinus syndrome, status post [facility] [facility] permanent pacemaker placement in 2017, chronic systolic heart failure, atrial septal defect status post closure, history of MitraClip in 2019, chronic renal insufficiency, remote history of tobacco dependence, restrictive lung disease, obstructive sleep apnea, recurrent right pleural effusions with history of 4 previous thoracentesis, remote history of pneumonia, and a family history of premature coronary artery disease. Preoperative nasal screening positive for MSSA, treated. POD #20 mitral valve replacement with 31 mm Mosaic porcine valve prosthesis, tricuspid valve repair with 30 mm MC3 band, coronary artery bypass grafting 1 with reverse greater saphenous vein graft to the obtuse marginal coronary artery, endovascular vein harvest of the left greater saphenous vein, epi-aortic ultrasound, closure of the left atrial appendage, closure of atrial septal defect. Postoperative acute blood loss anemia and thrombocytopenia, expected given hemodilution and cardiopulmonary bypass pump. Coagulopathy, unexpected, last coumadin dose was on 07/22/21. Right pleural effusion, expected due to his history of preoperative right pleural effusion with history of 4 previous thoracentesis. Status post placement of right-sided pigtail catheter by interventional radiology, status post right sided Pleurx catheter placement. Leukocytosis, afebrile, sputum positive for Klebsiella pneumoniae. Altered mental status after surgery due to delirium from lack of sleep, resolved The patient was seen and examined in follow-up today 08/17/2021 at his bedside in the intensive care unit. Currently sitting up to the bedside chair, is awake, alert, and oriented 3. He is in no acute distress. Continues to complain of a sore mouth, denies any complaints of shortness of breath or surgical type pain. Oxygen saturation are 98% on 3 L nasal cannula and he is achieving 1000 mL on his incentive spirometry. The patient reports he did have a nosebleed last night, at this time his nosebleed has stopped. Bedside telemetry showing V paced rhythm heart rate 70 bpm. He did have a first postoperative shower yesterday. Right chest Pleurx catheter drain for 200 mL of thin serosanguineous drainage this morning. He was up ambulating in the intensive care unit hallway yesterday 3 with standby assistance from nursing and therapy staff. The patient reports that he does not have an appetite and is eating minimal food on his breakfast tray. Discussed the importance of nu trition and encouraged oral intake. Laboratory results and chest x-ray results reviewed. He remains afebrile last 24 hours. Objective - Vital Signs Vital signs: Vital Signs Temp 97.9 F 08/17/21 08:00 Pulse 73 08/17/21 08:00 Resp 13 08/17/21 08:00 BP 107/63 08/17/21 08:00 Pulse Ox 93 L 08/17/21 08:00 Intake & Output 08/16/21 08/17/21 08/17/21 18:59 06:59 18:59 Intake Total 890 700 Output Total 375 1160 Balance 515 -460 Intake: IV 50 Cefepime 1 gm In Sodium 50 Chloride 0.9% 50 ml @ 12. 5 mls/hr IVPB Q12HR [facility] Rx#:[id number] Oral 840 700 Output: Drainage [address] 210 Right Posterior 390 Urine 375 560 Other: # Voids 2 1 ABP, PAP, CO, CI - Last Documented Arterial Blood Pressure 119/35 Pulmonary Artery Pressure 35/28 Cardiac Output 5 Cardiac Index 2.7 - Exam CONSTITUTIONAL: Sitting up to the bedside chair in the intensive care unit, appears comfortable with episodes of restlessness, cooperative, and is in no ap parent acute distress. HEENT: Neck is supple, no JVD, no lymphadenopathy. RESPIRATORY: Lungs sounds with essentially clear throughout, diminished to his bilateral bases right greater than left, few scattered crackles to his right lower lobe. Respirations are symmetrical and nonlabored. Currently on 3 L nasal cannula, oxygen saturations 98%. Able to achieve 1000 mL on his incentive spirometry. Strong, loose nonproductive cough. CARDIOVASCULAR: Regular rhythm and rate. S1 and S2 present, negative for S3, gallop or murmur. Sternum is stable. Palpable peripheral pulses bilaterally. No calf pain or tenderness noted. Heart hugger in place with patient demonstrating appropriate use with encouragement. Knee-high SUMI hose and sequential compression devices in place to his bilateral lower extremities. Bedside telemetry showing V paced rhythm heart rate 70 bpm. Trace edema to his bilateral lower extremities. GASTROINTESTINAL: Abdomen soft, nontender, and slightly distended. Active bowel sounds present 4 quadrants. Tolerating diet. No guarding or rigidity. Bowel movement 08/14/2021. GENITOURINARY: Continues to void. 260 mL of urine output in the last 8 hours. INTEGUMENTARY: Skin is warm and dry with no evidence of clubbing or cyanosis. Midline sternal incision clean dry and well approximated, covered with dry intact dressing. Left lower extremity EVH site well approximated without redness or drainage. Right sided Pleurx catheter intact with dressing dry, clean and intact. Small scattered ecchymotic areas to his left face. NEUROLOGIC: Cranial nerves II through XII intact. No focal deficits. MUSKULOSKELETAL: Able to move all extremities, strength equal bilaterally, generalized weakness. PSYCHIATRIC: Alert and oriented 3, flat affect. Episodes of restlessness. INVASIVE LINES AND TUBES: Right sided Pleurx catheter. Right chest Pleurx catheter drain for 200 mL of thin serosanguineous drainage. - Allied health notes Allied health notes reviewed: nursing - Labs CBC & Chem 7: 08/17/21 05:51 08/17/21 05:51 Labs: Abnormal Lab Results - Last 24 Hours (Table) 08/16/21 08/16/21 08/16/21 Range/Units 11:53 16:02 20:55 WBC (3.8-10.6) k/uL RBC (4.30-5.90) m/uL Hgb (13.0-17.5) gm/dL Hct (39.0-53.0) % MCV (80.0-100.0) fL MCHC (31.0-37.0) g/dL RDW (11.5-15.5) % Neutrophils # (1.3-7.7) k/uL Lymphocytes # (1.0-4.8) k/uL Macrocytosis PT (9.0-12.0) sec INR (<1.2) BUN (9-20) mg/dL Creatinine (0.66-1.25) mg/dL POC Glucose (mg/dL) 195 H 184 H 168 H (75-99) mg/dL Total Protein (6.3-8.2) g/dL Albumin (3.5-5.0) g/dL 08/16/21 08/17/21 08/17/21 Range/Units 23:32 05:51 05:51 WBC 13.1 H (3.8-10.6) k/uL RBC 2.91 L (4.30-5.90) m/uL Hgb 8.8 L (13.0-17.5) gm/dL Hct 31.0 L (39.0-53.0) % MCV 106.6 H (80.0-100.0) fL MCHC 28.2 L (31.0-37.0) g/dL RDW 21.5 H (11.5-15.5) % Neutrophils # 11.8 H (1.3-7.7) k/uL Lymphocytes # 0.3 L (1.0-4.8) k/uL Macrocytosis Marked A PT (9.0-12.0) sec INR (<1.2) BUN 145 H* (9-20) mg/dL Creatinine 2.98 H (0.66-1.25) mg/dL POC Glucose (mg/dL) 161 H (75-99) mg/dL Total Protein 5.7 L (6.3-8.2) g/dL Albumin 2.8 L (3.5-5.0) g/dL 08/17/21 Range/Units 05:51 WBC (3.8-10.6) k/uL RBC (4.30-5.90) m/uL Hgb (13.0-17.5) gm/dL Hct (39.0-53.0) % MCV (80.0-100.0) fL MCHC (31.0-37.0) g/dL RDW (11.5-15.5) % Neutrophils # (1.3-7.7) k/uL Lymphocytes # (1.0-4.8) k/uL Macrocytosis PT 25.9 H (9.0-12.0) sec INR 2.6 H (<1.2) BUN (9-20) mg/dL Creatinine (0.66-1.25) mg/dL POC Glucose (mg/dL) (75-99) mg/dL Total Protein (6.3-8.2) g/dL Albumin (3.5-5.0) g/dL - Imaging and Cardiology Chest x-ray: report reviewed, image reviewed Assessment and Plan Assessment: 1. Mitral valve regurgitation, history of MitraClip in 2019, status post post mitral valve replacement 2. Tricuspid valve regurgitation, status post tricuspid valve repair 3. Coronary artery disease with previous myocardial infarction and PCI, status post 1 vessel CABG 4. History of hypertension, currently hypotensive on levo and dopamine 5. Chronic atrial fibrillation on Coumadin for anticoagulation status post cardioversion, status post closure of the left atrial appendage 6. Sick sinus syndrome status post [facility] [facility] permanent pacemaker placement in 2017 7. Chronic systolic heart failure 8. Atrial septal defect status post closure 9. Chronic kidney disease stage IIIB with a baseline creatinine of 1.6-1.7 10. Previous tobacco dependence 11. Severe restrictive lung disease, preoperative FEV1 47% of predicted 12. Recurrent right-sided pleural effusion, patient had right sided thoracentesis twice in 2019 and twice in 2020, status post right chest pigtail catheter placement by IR, status post right-sided Pleurx catheter placement 13. Obstructive sleep apnea, with home CPAP use 14. Remote history of pneumonia 15. Family history of premature coronary artery disease 16. Postoperative acute blood loss anemia and thrombocytopenia, expected 17. Coagulopathy, unexpected and resolved 18. Leukocytosis, elevated pro-calcitonin, sputum culture positive for Klebsiella pneumoniae 19. Acute kidney injury secondary to ATN, possibly secondary to hypotension Plan: 1. Continue low-dose aspirin, and statin. Metoprolol tartrate discontinued due to some episodes of hypotension throughout the night. 2. Continue to hold Coumadin today, continue to monitor daily PT/INR. INR today is 2.6. 3. Wean O2 as tolerated. Encourage incentive spirometry use 10 times every hour while awake. Bronchodilators per pulmonology. 4. Increase activity, ambulate minimum 4 times in the hallway daily. Out of bed for all meals. PT/OT/cardiac rehab following. 5. Will monitor daily labs and chest x-rays. Antibiotics were discontinued yesterday per pulmonary medicine. 6. GI/DVT prophylaxis. 7. Insulin management per primary care service. The patient is not diabetic, preoperative hemoglobin A1c 5.8%. 8. Pain control per current medication regimen. Avoid narcotics. 9. Strict accurate intake and output. Daily weights 10. Encourage oral intake, encourage supplements to improve nutrition. Continue Kools solution oral rinse. Chlorhexidine oral rinse twice a day ordered, swish in all for 30 seconds and expel. 11. Discharge planning in progress. Anticipate discharge to [facility] hopefully within the next 24-48 hours. 12. Bumex decreased to 1 mg by mouth daily. Avoid nephrotoxic agents. 13. More recommendations to follow based on patient's clinical course. Time with Patient: Greater than 30
[2021-08-17] MEDS: PANTOPRAZOLE 40 MG TABLET PO SCH (09:18)
[2021-08-17] MEDS: ASCORBIC ACID 500 MG TAB PO SCH (09:18)
[2021-08-17] MEDS: INSULIN ASPART (NovoLOG) 100 UNIT/ML VIAL SQ SCH ×4 (09:18→21:22)
[2021-08-17] MEDS: ASPIRIN 81 MG PO SCH (09:19)
[2021-08-17] MEDS: FERROUS SULFATE 325 MG TAB PO SCH (09:19)
[2021-08-17] MEDS: SERTRALINE 50 MG TAB PO SCH (09:19)
[2021-08-17] MEDS: CHLORHEXIDINE GLUCONATE 15 ML CUP MUCOUS MEM SCH ×2 (09:19→21:39)
[2021-08-17] MEDS: MAG HYDROX/AL HYDROX/SIMETH 30 ML, LIDOCAINE VISCOUS 2% 30 ML, NYSTATIN 100,000 UNIT/ML... PO SCH ×9 (09:20→21:40)
[2021-08-17] MEDS ORDERED: TAMSULOSIN 0.4 MG CAP.ER.24H PO SCH (10:30)
--- NOTE | 2021-08-17 10:50 | P.PN ---
Subjective Progress Note Date: 08/17/21 Principal diagnosis: Status post mitral valve replacement, tricuspid valve repair and single-vessel bypass grafting Right-sided pleural effusion Mitral valve regurgitation, tricuspid valve regurgitation, and coronary artery disease. Past medical history significant for coronary artery disease with previous myocardial infarction and PCI, hypertension, hyperlipidemia, chronic persistent atrial fibrillation on Coumadin for anticoagulation as an outpatient, status post cardioversion, sick sinus syndrome, status post [facility] permanent pacemaker placement in 2017, chronic systolic heart failure, atrial septal defect status post closure, history of MitraClip in 2019, chronic renal insufficiency, remote history of tobacco dependence, restrictive lung disease, obstructive sleep apnea, recurrent right pleural effusions with history of 4 previous thoracentesis, remote history of pneumonia, and a family history of premature coronary artery disease. Preoperative nasal screening positive for MSSA, treated. Patient is POD #20 mitral valve replacement with porcine valve prosthesis and tricuspid repair Patient is seen and evaluated at bedside; remains in ICU; denies any specific complaints Right chest Pleurx catheter drain for 200 mL of thin serosanguineous drainage this morning. He was up ambulating in the intensive care unit hallway Continue low-dose aspirin, and statin. Metoprolol tartrate discontinued due to some episodes of hypotension Objective - Vital Signs Vital signs: Vital Signs Temp 97.9 F 08/17/21 08:00 Pulse 73 08/17/21 08:00 Resp 13 08/17/21 08:00 BP 107/63 08/17/21 08:00 Pulse Ox 93 L 08/17/21 08:00 Intake & Output 08/16/21 08/17/21 08/17/21 18:59 06:59 18:59 Intake Total 890 700 Output Total 375 1160 Balance 515 -460 Intake: IV 50 Cefepime 1 gm In Sodium 50 Chloride 0.9% 50 ml @ 12. 5 mls/hr IVPB Q12HR [facility] Rx#:[id number] Oral 840 700 Output: Drainage [address] 210 Right Posterior 390 Urine 375 560 Other: # Voids 2 1 ABP, PAP, CO, CI - Last Documented Arterial Blood Pressure 119/35 Pulmonary Artery Pressure 35/28 Cardiac Output 5 Cardiac Index 2.7 - Exam HEENT head normocephalic and atraumatic Neck is supple no JVD no goiter no lymphadenopathy no carotid bruit Chest examination reveals a scattered crackles in both lung sousa no wheezing Cardiac exam reveals regular heart sounds S1 and S2 no gallops no murmurs Abdomen is soft nontender no organomegaly with normal bowel sounds Extremity exam reveals no edema no cyanosis or clubbing Neurological examination reveals no gross focal deficits - Labs CBC & Chem 7: 08/17/21 05:51 08/17/21 05:51 Labs: Abnormal Lab Results - Last 24 Hours (Table) 08/16/21 08/16/21 08/16/21 Range/Units 11:53 16:02 20:55 WBC (3.8-10.6) k/uL RBC (4.30-5.90) m/uL Hgb (13.0-17.5) gm/dL Hct (39.0-53.0) % MCV (80.0-100.0) fL MCHC (31.0-37.0) g/dL RDW (11.5-15.5) % Neutrophils # (1.3-7.7) k/uL Lymphocytes # (1.0-4.8) k/uL Macrocytosis PT (9.0-12.0) sec INR (<1.2) BUN (9-20) mg/dL Creatinine (0.66-1.25) mg/dL POC Glucose (mg/dL) 195 H 184 H 168 H (75-99) mg/dL Total Protein (6.3-8.2) g/dL Albumin (3.5-5.0) g/dL 08/16/21 08/17/21 08/17/21 Range/Units 23:32 05:51 05:51 WBC 13.1 H (3.8-10.6) k/uL RBC 2.91 L (4.30-5.90) m/uL Hgb 8.8 L (13.0-17.5) gm/dL Hct 31.0 L (39.0-53.0) % MCV 106.6 H (80.0-100.0) fL MCHC 28.2 L (31.0-37.0) g/dL RDW 21.5 H (11.5-15.5) % Neutrophils # 11.8 H (1.3-7.7) k/uL Lymphocytes # 0.3 L (1.0-4.8) k/uL Macrocytosis Marked A PT (9.0-12.0) sec INR (<1.2) BUN 145 H* (9-20) mg/dL Creatinine 2.98 H (0.66-1.25) mg/dL POC Glucose (mg/dL) 161 H (75-99) mg/dL Total Protein 5.7 L (6.3-8.2) g/dL Albumin 2.8 L (3.5-5.0) g/dL 08/17/21 Range/Units 05:51 WBC (3.8-10.6) k/uL RBC (4.30-5.90) m/uL Hgb (13.0-17.5) gm/dL Hct (39.0-53.0) % MCV (80.0-100.0) fL MCHC (31.0-37.0) g/dL RDW (11.5-15.5) % Neutrophils # (1.3-7.7) k/uL Lymphocytes # (1.0-4.8) k/uL Macrocytosis PT 25.9 H (9.0-12.0) sec INR 2.6 H (<1.2) BUN (9-20) mg/dL Creatinine (0.66-1.25) mg/dL POC Glucose (mg/dL) (75-99) mg/dL Total Protein (6.3-8.2) g/dL Albumin (3.5-5.0) g/dL Assessment and Plan Assessment: 1. Status post mitral valve replacement, tricuspid valve repair and single- vessel bypass grafting -Patient remains in ICU - Patient has history of valvular heart disease with previous mitral valve repair with a mitral clip at [facility] 2. Right-sided pleural effusion; Right-sided Pleurx pigtail in place 3. Coagulopathy. Resolved 4. History of CAD/congestive heart failure; continue with aspirin, statins 5. COPD; not in exacerbation; continue with current inhaler therapy 6. History of hyperlipidemia; Lipitor 40 mg by mouth daily at bedtime 7. History of renal insufficiency; at baseline 8. Klebsiella pneumonia/tracheobronchitis;Sputum culture positive for Klebsiella pneumonia patient started on IV antibiotics 9. Hyperglycemia. A1c was 5.8 upon admission patient still having elevated blood sugars will add Levemir 10 units and sliding scale coverage
[2021-08-17 11:41] LABS: Glucose,Whole Blood 88 mg/dL (75-99)
[2021-08-17] MEDS ORDERED: SERTRALINE 50 MG TAB PO STA (12:27)
[2021-08-17] MEDS: TAMSULOSIN 0.4 MG CAP.ER.24H PO SCH (13:43)
--- NOTE | 2021-08-17 14:12 | P.PN ---
Subjective Progress Note Date: 08/17/21 Follow-up for acute kidney injury, family at bedside. Urine output of 1500 ML's in the last 24 hours. Urinary retention needing straight caths. Objective - Vital Signs Vital signs: Vital Signs Temp 97.9 F 08/17/21 08:00 Pulse 73 08/17/21 08:00 Resp 13 08/17/21 08:00 BP 107/63 08/17/21 08:00 Pulse Ox 93 L 08/17/21 08:00 Intake & Output 08/16/21 08/17/21 08/17/21 18:59 06:59 18:59 Intake Total 890 700 100 Output Total 375 1160 700 Balance 515 -460 -600 Intake: IV 50 Cefepime 1 gm In Sodium 50 Chloride 0.9% 50 ml @ 12. 5 mls/hr IVPB Q12HR [facility] Rx#:[id number] Oral 840 700 100 Output: Drainage [address] 210 Right Posterior 390 Urine 375 560 700 Other: # Voids 2 1 ABP, PAP, CO, CI - Last Documented Arterial Blood Pressure 119/35 Pulmonary Artery Pressure 35/28 Cardiac Output 5 Cardiac Index 2.7 - Exam No acute distress S1-S2 heard Decreased breath sounds Abdomen distended Edema - Labs CBC & Chem 7: 08/17/21 05:51 08/17/21 05:51 Labs: Abnormal Lab Results - Last 24 Hours (Table) 08/16/21 08/16/21 08/16/21 Range/Units 16:02 20:55 23:32 WBC (3.8-10.6) k/uL RBC (4.30-5.90) m/uL Hgb (13.0-17.5) gm/dL Hct (39.0-53.0) % MCV (80.0-100.0) fL MCHC (31.0-37.0) g/dL RDW (11.5-15.5) % Neutrophils # (1.3-7.7) k/uL Lymphocytes # (1.0-4.8) k/uL Macrocytosis PT (9.0-12.0) sec INR (<1.2) BUN (9-20) mg/dL Creatinine (0.66-1.25) mg/dL POC Glucose (mg/dL) 184 H 168 H 161 H (75-99) mg/dL Total Protein (6.3-8.2) g/dL Albumin (3.5-5.0) g/dL 08/17/21 08/17/21 08/17/21 Range/Units 05:51 05:51 05:51 WBC 13.1 H (3.8-10.6) k/uL RBC 2.91 L (4.30-5.90) m/uL Hgb 8.8 L (13.0-17.5) gm/dL Hct 31.0 L (39.0-53.0) % MCV 106.6 H (80.0-100.0) fL MCHC 28.2 L (31.0-37.0) g/dL RDW 21.5 H (11.5-15.5) % Neutrophils # 11.8 H (1.3-7.7) k/uL Lymphocytes # 0.3 L (1.0-4.8) k/uL Macrocytosis Marked A PT 25.9 H (9.0-12.0) sec INR 2.6 H (<1.2) BUN 145 H* (9-20) mg/dL Creatinine 2.98 H (0.66-1.25) mg/dL POC Glucose (mg/dL) (75-99) mg/dL Total Protein 5.7 L (6.3-8.2) g/dL Albumin 2.8 L (3.5-5.0) g/dL Assessment and Plan Assessment: #1 nonoliguric acute kidney injury secondary to hemodynamic ATN/urinary retention. #2 chronic kidney disease stage III b suspect nephrosclerosis with a baseline cr eatinine of 1.6-1.7 MG per DL. #3 acute blood loss anemia status post transfusions #4 volume overload on diuretics. #5 metabolic acidosis, resolved. Plan: #1 renal function stable. BUN >> creatinine, suspect catabolic state. -Not on steroids or active GI bleed. Discussed with the patient and family, agreeable for dialysis. Consult vascular surgery for [place] and we'll do dialysis in the morning. #2 stop Bumex, fluid challenge overnight and repeat BMP in the morning. #3 bladder scan persistent urinary retention needs Cortes catheter. #4 daily renal labs #5 no acute indication for renal replacement therapy today.
[2021-08-17 16:49] LABS: Glucose,Whole Blood 144 mg/dL (75-99)
[2021-08-17] MEDS: SODIUM CHLORIDE 0.9% 1,000 ML IV SCH (17:05)
[2021-08-17 20:56] LABS: Glucose,Whole Blood 102 mg/dL (75-99)
[2021-08-17] MEDS: ATORVASTATIN 40 MG TAB PO SCH (21:39)
[2021-08-17] MEDS: CALCIUM ACETATE 667 MG TAB PO SCH (21:39)
[2021-08-17] MEDS: INSULIN DETEMIR (LEVEMIR) 100 UNIT/ML SYR SQ SCH (21:40)
[2021-08-18] MEDS: SODIUM CHLORIDE 0.9% 1,000 ML IV SCH (04:32)
[2021-08-18 05:57] LABS: Anisocytosis Moderate; Basophils % (A) 0 %; Eosinophils % (A) 0 %; HCT 30.9 % (39.0-53.0); Hypochromasia Marked; Lymphocytes # (A) 0.3 k/uL (1.0-4.8); Lymphocytes % (A) 3 %; MCH 31.2 pg (25.0-35.0); MCHC 29.2 g/dL (31.0-37.0); Macrocytosis Marked; Mean Platelet Volume 9.4; Monocytes # (A) 0.5 k/uL (0-1.0); Monocytes % (A) 5 %; Neutrophils # (A) 10.3 k/uL (1.3-7.7); Neutrophils % (A) 91 %; Platelet Count 145 k/uL (150-450); Poikilocytosis Moderate; RDW 21.1 % (11.5-15.5); WBC 11.3 k/uL (3.8-10.6)
[2021-08-18 05:59] LABS: MCV 106.8 fL (80.0-100.0)
[2021-08-18 06:04] LABS: INR 2.3 (<1.2); Prothrombin Time 23.4 sec (9.0-12.0)
[2021-08-18 06:07] LABS: Albumin 2.7 g/dL (3.5-5.0); Calcium 8.2 mg/dL (8.4-10.2); Magnesium 3.3 mg/dL (1.6-2.3); Potassium 3.6 mmol/L (3.5-5.1); Total Bilirubin 0.8 mg/dL (0.2-1.3); Total Protein 5.4 g/dL (6.3-8.2)
[2021-08-18] MEDS ORDERED: DEXTROSE 50% SYRINGE 50 ML IVP ONE (06:23)
[2021-08-18 06:28] LABS: Glucose,Whole Blood 49 mg/dL (75-99)
[2021-08-18 06:48] LABS: Glucose,Whole Blood 161 mg/dL (75-99)
--- NOTE | 2021-08-18 07:08 | XR ---
EXAMINATION TYPE: XR chest 1V portable DATE OF EXAM: 08/18/2021 HISTORY: Shortness of breath. COMPARISON: 08/17/2021 TECHNIQUE: Single view of the chest is submitted. FINDINGS: Previously noted tiny right apical pneumothorax is poorly demonstrated on today's study. Continued cardiomegaly with pulmonary venous congestion and pleural parenchymal density at the lung b ases right greater than left. Hilar and mediastinal structures are within normal limits. Degenerative changes are seen of the dorsal spine. IMPRESSION: Previously noted tiny right apical pneumothorax is poorly demonstrated on today's study. Continued cardiomegaly with pulmonary venous congestion and pleural parenchymal density at the lung b ases right greater than left.
[2021-08-18] MEDS: IPRATROPIUM-ALBUTEROL 3 ML NEB INHALATION SCH ×4 (07:26→19:11)
[2021-08-18] MEDS: SYMBICORT 160-4.5 MCG INHALER INHALATION SCH ×2 (07:27→19:11)
[2021-08-18] MEDS: INSULIN ASPART (NovoLOG) 100 UNIT/ML VIAL SQ SCH ×4 (07:57→20:18)
--- NOTE | 2021-08-18 08:48 | P.PN ---
Subjective Progress Note Date: 08/18/21 The patient is an 81-year-old male who underwent mitral valve replacement,tricuspid valve repair, and CABG 1 with SVG to OM on July 28. The patient's recovery has been complicated by worsening kidney disease. The patient states he is not feeling well this morning. He states he is having some chest discomfort and has been coughing quite frequently. GENERAL: Ill-appearing. Mildly labored breathing, but in no acute distress. NECK: Supple without JVD or thyromegaly. LUNGS: Breath sounds rhonchorous bilaterally. Respirations mildly labored. Breath sounds equal. HEART: Regular rate and rhythm. Systolic murmur. No rubs or gallops. S1 and S2 heard. EXTREMITIES: Normal range of motion, no edema. No clubbing or cyanosis. Peripheral pulses intact. VITALS: Blood pressure 111/72, respiratory rate 15, pulse 73, SpO2 100% on 3 L nasal cannula TELEMETRY: Paced rhythm. Underlying atrial fibrillation. LABS: WBC 11.3, hemoglobin 9.0, hematocrit 30.9, platelet 145, INR 2.3, sodium 143, potassium 3.6, BUN 132, creatinine 2.66, GFR 22, magnesium 3.3, IMPRESSION: Mitral regurgitation, status post mitral valve replacement Tricuspid regurgitation, status post tricuspid valve repair Coronary artery disease, status post CABG 1 Persistent atrial fibrillation, on warfarin Sick sinus syndrome, status post permanent pacemaker Chronic kidney disease, 3A a Acute kidney injury, current creatinine 2.6 Anemia, secondary to blood loss PLAN: No changes in medication regimen from the cardiac standpoint Continue aggressive pulmonary hygiene Further recommendations will be based on clinical course I am dictating on behalf of Dr Edu Barajas's history/physical and assessment/plan. Objective - Vital Signs Vital signs: Vital Signs Temp 97.8 F 08/18/21 04:00 Pulse 70 08/18/21 07:37 Resp 15 08/18/21 07:00 BP 111/72 08/18/21 07:00 Pulse Ox 100 08/18/21 07:00 Intake & Output 08/17/21 08/18/21 08/18/21 18:59 06:59 18:59 Intake Total 175 1325 Output Total 1275 765 Balance -1100 560 Intake: IV 75 1125 Sodium Chloride 0.9% 1, 75 1125 000 ml @ 75 mls/hr IV . [id number] [facility] Rx#:[id number] Oral 100 200 Output: Drainage [address] 70 0 Right Posterior 130 0 Urine 1075 765 Other: Voiding Method Urinal Urinal ABP, PAP, CO, CI - Last Documented Arterial Blood Pressure 119/35 Pulmonary Artery Pressure 35/28 Cardiac Output 5 Cardiac Index 2.7 - Labs CBC & Chem 7: 08/18/21 05:35 08/18/21 05:35 Labs: Abnormal Lab Results - Last 24 Hours (Table) 08/17/21 08/17/21 08/18/21 Range/Units 16:47 20:53 05:35 WBC (3.8-10.6) k/uL RBC (4.30-5.90) m/uL Hgb (13.0-17.5) gm/dL Hct (39.0-53.0) % MCV (80.0-100.0) fL MCHC (31.0-37.0) g/dL RDW (11.5-15.5) % Plt Count (150-450) k/uL Neutrophils # (1.3-7.7) k/uL Lymphocytes # (1.0-4.8) k/uL Macrocytosis PT (9.0-12.0) sec INR (<1.2) Chloride 109 H (98-107) mmol/L BUN 132 H* (9-20) mg/dL Creatinine 2.66 H (0.66-1.25) mg/dL Glucose 39 L* (74-99) mg/dL POC Glucose (mg/dL) 144 H 102 H (75-99) mg/dL Calcium 8.2 L (8.4-10.2) mg/dL Magnesium 3.3 H (1.6-2.3) mg/dL Total Protein 5.4 L (6.3-8.2) g/dL Albumin 2.7 L (3.5-5.0) g/dL 08/18/21 08/18/21 08/18/21 Range/Units 05:35 05:35 06:22 WBC 11.3 H (3.8-10.6) k/uL RBC 2.90 L (4.30-5.90) m/uL Hgb 9.0 L (13.0-17.5) gm/dL Hct 30.9 L (39.0-53.0) % MCV 106.8 H (80.0-100.0) fL MCHC 29.2 L (31.0-37.0) g/dL RDW 21.1 H (11.5-15.5) % Plt Count 145 L (150-450) k/uL Neutrophils # 10.3 H (1.3-7.7) k/uL Lymphocytes # 0.3 L (1.0-4.8) k/uL Macrocytosis Marked A PT 23.4 H (9.0-12.0) sec INR 2.3 H (<1.2) Chloride (98-107) mmol/L BUN (9-20) mg/dL Creatinine (0.66-1.25) mg/dL Glucose (74-99) mg/dL POC Glucose (mg/dL) 49 L (75-99) mg/dL Calcium (8.4-10.2) mg/dL Magnesium (1.6-2.3) mg/dL Total Protein (6.3-8.2) g/dL Albumin (3.5-5.0) g/dL 08/18/21 Range/Units 06:46 WBC (3.8-10.6) k/uL RBC (4.30-5.90) m/uL Hgb (13.0-17.5) gm/dL Hct (39.0-53.0) % MCV (80.0-100.0) fL MCHC (31.0-37.0) g/dL RDW (11.5-15.5) % Plt Count (150-450) k/uL Neutrophils # (1.3-7.7) k/uL Lymphocytes # (1.0-4.8) k/uL Macrocytosis PT (9.0-12.0) sec INR (<1.2) Chloride (98-107) mmol/L BUN (9-20) mg/dL Creatinine (0.66-1.25) mg/dL Glucose (74-99) mg/dL POC Glucose (mg/dL) 161 H (75-99) mg/dL Calcium (8.4-10.2) mg/dL Magnesium (1.6-2.3) mg/dL Total Protein (6.3-8.2) g/dL Albumin (3.5-5.0) g/dL
[2021-08-18] MEDS ORDERED: POTASSIUM CHLORIDE ER 20 MEQ TAB.ER PO STA (08:49)
[2021-08-18] MEDS: FERROUS SULFATE 325 MG TAB PO SCH (08:51)
[2021-08-18] MEDS: TAMSULOSIN 0.4 MG CAP.ER.24H PO SCH (08:51)
[2021-08-18] MEDS: PANTOPRAZOLE 40 MG TABLET PO SCH (08:51)
[2021-08-18] MEDS: ASCORBIC ACID 500 MG TAB PO SCH (08:51)
[2021-08-18] MEDS: ASPIRIN 81 MG PO SCH (08:51)
[2021-08-18] MEDS: SERTRALINE 100 MG TAB PO SCH (08:52)
[2021-08-18] MEDS: CHLORHEXIDINE GLUCONATE 15 ML CUP MUCOUS MEM SCH ×2 (08:52→20:14)
[2021-08-18] MEDS: MAG HYDROX/AL HYDROX/SIMETH 30 ML, LIDOCAINE VISCOUS 2% 30 ML, NYSTATIN 100,000 UNIT/ML... PO SCH ×9 (08:58→22:08)
[2021-08-18] MEDS ORDERED: SERTRALINE 100 MG TAB PO SCH (09:00)
--- NOTE | 2021-08-18 09:36 | P.PN ---
Subjective Progress Note Date: 08/18/21 Principal diagnosis: Mitral valve regurgitation, tricuspid valve regurgitation, and coronary artery disease. Past medical history significant for coronary artery disease with prev ious myocardial infarction and PCI, hypertension, hyperlipidemia, chronic persistent atrial fibrillation on Coumadin for anticoagulation as an outpatient, status post cardioversion, sick sinus syndrome, status post [facility] permanent pacemaker placement in 2017, chronic systolic heart failure, atrial septal defect status post closure, history of MitraClip in 2019, chronic renal insufficiency, remote history of tobacco dependence, restrictive lung disease, obstructive sleep apnea, recurrent right pleural effusions with history of 4 previous thoracentesis, remote history of pneumonia, and a family history of premature coronary artery disease. Preoperative nasal screening positive for MSSA, treated. POD #21 mitral valve replacement with 31 mm Mosaic porcine valve prosthesis, tricuspid valve repair with 30 mm MC3 band, coronary artery bypass grafting 1 with reverse greater saphenous vein graft to the obtuse marginal coronary artery, endovascular vein harvest of the left greater saphenous vein, epi-aortic ultrasound, closure of the left atrial appendage, closure of atrial septal defect. Postoperative acute blood loss anemia and thrombocytopenia, expected given hemodilution and cardiopulmonary bypass pump. Coagulopathy, unexpected, resolved. Right pleural effusion, expected due to his history of preoperative right pleural effusion with history of 4 previous thoracentesis. Status post placement of right-sided pigtail catheter by interventional radiology, status post right sided Pleurx catheter placement. Leukocytosis, afebrile, sputum positive for Klebsiella pneumoniae. Altered mental status after surgery due to delirium from lack of sleep, resolved Urinary retention, unexpected requiring placement of Cortes catheter. The patient was seen and examined today 08/18/2021 at his bedside in the intensive care unit. Currently he is lying in bed, is awake, alert, oriented 3 and is in no acute apparent distress. He remains hemodynamically stable and is currently on no inotropic or pressor support. IV fluids 0.9% normal saline was started by nephrology yesterday infusing at 75 mL per hour. Oxygen saturation are 96% on 3 L nasal cannula and he is achieving 1000 mL on his incentive spirometry. Bedside telemetry showing V paced rhythm heart rate 70 bpm. The patient had some urinary retention yesterday with postvoid residuals greater than 350 mL. Flomax 0.4 mg by mouth daily was started and a Cortes catheter was placed. The patient denies any complaints of shortness of breath or surgical type pain although continues to complain of a sore mouth with no obvious source present. The patient was very resistant to ambulating in the hallway yesterday with nursing staff and physical therapy staff, although was agreeable to getting into the shower. Reinforced with the patient how important it is to be eating his meals and ambulating in the hallway. Laboratory and chest x-ray results reviewed this a.m. He has been afebrile the last 24 hours. INR is 2.3 and PTT 23.4 today, last dose of Coumadin was given on 08/15/2021. Objective - Vital Signs Vital signs: Vital Signs Temp 97.8 F 08/18/21 04:00 Pulse 70 08/18/21 07:27 Resp 15 08/18/21 07:00 BP 111/72 08/18/21 07:00 Pulse Ox 100 08/18/21 07:00 Intake & Output 08/17/21 08/18/21 08/18/21 18:59 06:59 18:59 Intake Total 175 1325 Output Total 1275 765 Balance -1100 560 Intake: IV 75 1125 Sodium Chloride 0.9% 1, 75 1125 000 ml @ 75 mls/hr IV . [id number] PHIL Rx#:[id number] Oral 100 200 Output: Drainage [address] 70 0 Right Posterior 130 0 Urine 1075 765 Other: Voiding Method Urinal Urinal ABP, PAP, CO, CI - Last Documented Arterial Blood Pressure 119/35 Pulmonary Artery Pressure 35/28 Cardiac Output 5 Cardiac Index 2.7 - Exam CONSTITUTIONAL: Sitting up to the bedside chair in the intensive care unit, appears comfortable with episodes of restlessness, cooperative, and is in no apparent acute distress. HEENT: Neck is supple, no JVD, no lymphadenopathy. RESPIRATORY: Lungs sounds with few scattered rhonchi throughout, diminished to his bilateral bases right greater than left, few scattered crackles to his right lower lobe. Respirations are symmetrical and nonlabored. Currently on 3 L nasal cannula, oxygen saturations 96%. Able to achieve 1000 mL on his incentive spirometry. Strong, loose productive cough. CARDIOVASCULAR: Regular rhythm and rate. S1 and S2 present, negative for S3, gallop or murmur. Sternum is stable. Palpable peripheral pulses bilaterally. No calf pain or tenderness noted. Heart hugger in place with patient demonstrating appropriate use with encouragement. Knee-high SUMI hose and sequential compression devices in place to his bilateral lower extremities. Bedside telemetry showing V paced rhythm heart rate 70 bpm. Trace edema to his bilateral lower extremities. GASTROINTESTINAL: Abdomen soft, nontender, and slightly distended. Active bowel sounds present 4 quadrants. Tolerating diet. No guarding or rigidity. Bowel movement 08/17/2021. GENITOURINARY: Cortes catheter in place for urinary retention. 765 mL of urine output last 8 hours. INTEGUMENTARY: Skin is warm and dry with no evidence of clubbing or cyanosis. Midline sternal incision clean dry and well approximated, covered with dry intact dressing. Left lower extremity EVH site well approximated without redness or drainage. Right sided Pleurx catheter intact with dressing dry, clean and intact. Small scattered ecchymotic areas to his bilateral cheeks to his face. NEUROLOGIC: Cranial nerves II through XII intact. No focal deficits. MUSKULOSKELETAL: Able to move all extremities, strength equal bilaterally, generalized weakness. PSYCHIATRIC: Alert and oriented 3, flat affect. Episodes of restlessness. INVASIVE LINES AND TUBES: Right sided Pleurx catheter. Right chest Pleurx catheter drain for 200 mL of thin serosanguineous drainage yesterday 08/17/2021. - Allied health notes Allied health notes reviewed: nursing - Labs CBC & Chem 7: 08/18/21 05:35 08/18/21 05:35 Labs: Abnormal Lab Results - Last 24 Hours (Table) 08/17/21 08/17/21 08/18/21 Range/Units 16:47 20:53 05:35 WBC (3.8-10.6) k/uL RBC (4.30-5.90) m/uL Hgb (13.0-17.5) gm/dL Hct (39.0-53.0) % MCV (80.0-100.0) fL MCHC (31.0-37.0) g/dL RDW (11.5-15.5) % Plt Count (150-450) k/uL Neutrophils # (1.3-7.7) k/uL Lymphocytes # (1.0-4.8) k/uL Macrocytosis PT (9.0-12.0) sec INR (<1.2) Chloride 109 H (98-107) mmol/L BUN 132 H* (9-20) mg/dL Creatinine 2.66 H (0.66-1.25) mg/dL Glucose 39 L* (74-99) mg/dL POC Glucose (mg/dL) 144 H 102 H (75-99) mg/dL Calcium 8.2 L (8.4-10.2) mg/dL Magnesium 3.3 H (1.6-2.3) mg/dL Total Protein 5.4 L (6.3-8.2) g/dL Albumin 2.7 L (3.5-5.0) g/dL 08/18/21 08/18/21 08/18/21 Range/Units 05:35 05:35 06:22 WBC 11.3 H (3.8-10.6) k/uL RBC 2.90 L (4.30-5.90) m/uL Hgb 9.0 L (13.0-17.5) gm/dL Hct 30.9 L (39.0-53.0) % MCV 106.8 H (80.0-100.0) fL MCHC 29.2 L (31.0-37.0) g/dL RDW 21.1 H (11.5-15.5) % Plt Count 145 L (150-450) k/uL Neutrophils # 10.3 H (1.3-7.7) k/uL Lymphocytes # 0.3 L (1.0-4.8) k/uL Macrocytosis Marked A PT 23.4 H (9.0-12.0) sec INR 2.3 H (<1.2) Chloride (98-107) mmol/L BUN (9-20) mg/dL Creatinine (0.66-1.25) mg/dL Glucose (74-99) mg/dL POC Glucose (mg/dL) 49 L (75-99) mg/dL Calcium (8.4-10.2) mg/dL Magnesium (1.6-2.3) mg/dL Total Protein (6.3-8.2) g/dL Albumin (3.5-5.0) g/dL 08/18/21 Range/Units 06:46 WBC (3.8-10.6) k/uL RBC (4.30-5.90) m/uL Hgb (13.0-17.5) gm/dL Hct (39.0-53.0) % MCV (80.0-100.0) fL MCHC (31.0-37.0) g/dL RDW (11.5-15.5) % Plt Count (150-450) k/uL Neutrophils # (1.3-7.7) k/uL Lymphocytes # (1.0-4.8) k/uL Macrocytosis PT (9.0-12.0) sec INR (<1.2) Chloride (98-107) mmol/L BUN (9-20) mg/dL Creatinine (0.66-1.25) mg/dL Glucose (74-99) mg/dL POC Glucose (mg/dL) 161 H (75-99) mg/dL Calcium (8.4-10.2) mg/dL Magnesium (1.6-2.3) mg/dL Total Protein (6.3-8.2) g/dL Albumin (3.5-5.0) g/dL - Imaging and Cardiology Chest x-ray: report reviewed, image reviewed Assessment and Plan Assessment: 1. Mitral valve regurgitation, history of MitraClip in 2019, status post post mitral valve replacement 2. Tricuspid valve regurgitation, status post tricuspid valve repair 3. Coronary artery disease with previous myocardial infarction and PCI, status post 1 vessel CABG 4. History of hypertension, currently hypotensive on levo and dopamine 5. Chronic atrial fibrillation on Coumadin for anticoagulation status post cardioversion, status post closure of the left atrial appendage 6. Sick sinus syndrome status post [facility] permanent pacemaker placement in 2016 7. Chronic systolic heart failure 8. Atrial septal defect status post closure 9. Chronic kidney disease stage IIIB with a baseline creatinine of 1.6-1.7 10. Previous tobacco dependence 11. Severe restrictive lung disease, preoperative FEV1 47% of predicted 12. Recurrent right-sided pleural effusion, patient had right sided thoracentesis twice in 2019 and twice in 2020, status post right chest pigtail catheter placement by IR, status post right-sided Pleurx catheter placement 13. Obstructive sleep apnea, with home CPAP use 14. Remote history of pneumonia 15. Family history of premature coronary artery disease 16. Postoperative acute blood loss anemia and thrombocytopenia, expected 17. Coagulopathy, unexpected and resolved 18. Leukocytosis, elevated pro-calcitonin, sputum culture positive for Klebsiella pneumoniae 19. Acute kidney injury secondary to ATN, possibly secondary to hypotension 20. Urinary retention, unexpected Plan: 1. Continue low-dose aspirin, and statin. 2. Continue to hold Coumadin today for possible PEG tube placement, continue to monitor daily PT/INR. INR today is 2.3. 3. Wean O2 as tolerated. Encourage incentive spirometry use 10 times every hour while awake. Bronchodilators per pulmonology. 4. Increase activity, ambulate minimum 4 times in the hallway daily. Out of bed for all meals. PT/OT/cardiac rehab following. 5. Will monitor daily labs and chest x-rays. Antibiotics have been discontinued per pulmonary medicine. 6. GI/DVT prophylaxis. 7. Insulin management per primary care service. The patient is not diabetic, preoperative hemoglobin A1c 5.8%. 8. Pain control per current medication regimen. Avoid narcotics due to history of delirium postoperatively. 9. Strict accurate intake and output. Daily weights. Continue Cortes catheter for urinary retention, urology consulted for urinary retention. 10. Encourage oral intake, encourage supplements to improve nutrition. Continue chlorhexidine oral rinse twice a day, swish in all for 30 seconds and expel for complaints of a sore mouth. 11. Discharge planning in place, anticipate need for subacute facility with rehab. 12. Diuretic management per nephrology. Avoid nephrotoxic agents. 13. May require a PEG tube placement with tube feedings due to lack of oral intake. 14. More recommendations to follow based on patient's clinical course. Time with Patient: Greater than 30
[2021-08-18 09:50] LABS: Prealbumin 12.3 mg/dL (18.0-42.0)
--- NOTE | 2021-08-18 10:15 | P.PN ---
Subjective Progress Note Date: 08/18/21 Principal diagnosis: Mitral valve regurgitation, tricuspid valve regurgitation, status post surgical replacement and repair On 08/18/2021 patient seen in follow-up in the intensive care unit, this is postoperative day #21, status post mitral valve replacement, tricuspid valve repair, 1 vessel coronary artery bypass. Patient is also status post Pleurx catheter placement in the right pleural space for a chronic right pleural effusion with trapped lung on 08/14/2021. He is awake and alert, he sitting up in a recliner, appears weak, but no distress, is on 3 L of oxygen pulse ox 100%. Afebrile, vital signs have been stable, blood pressure stable 111/72 this morning, remains in a paced rhythm with a rate of 70 BPM with underlying atrial fibrillation. Patient has a very congested cough, at times he is able to bring up some phlegm, but for the most part is nonproductive, today's chest x-ray showing cardiomegaly, pulmonary venous congestion and pleural parenchymal den sity hilar and mediastinal structures within normal limits. Today's labs have been reviewed, white blood cell count is 11.3, hemoglobin is 9.0, sodium is 143, potassium 3.6, chloride is 109, BUN is 132, creatinine is 2.66 and there is been slight improvement in patient's renal profile, yesterday he had received some IV fluid infusion per nephrology which has been discontinued, appetite has been q uite poor, patient is on a modified diet with ground solids. There is a concern for not meeting his nutritional needs, his albumin level is 2.7, his prealbumin is 12.3. There is a possibility patient may need PEG tube placement for supplementation of his nutrition. INR today is 2.3. Yesterday patient refused to work with physical therapy, he was unable to participate with therapy related to weakness, fatigue, general medical debility. From pulmonary perspective he is on Symbicort, nebulized DuoNeb, IV steroids have been discontinued a couple days ago. His left-sided pleural chest tube was drained by CT surgery yesterday and 200 mL of fluid was removed and discarded Objective - Vital Signs Vital signs: Vital Signs Temp 97.8 F 08/18/21 04:00 Pulse 70 08/18/21 07:37 Resp 15 08/18/21 07:00 BP 111/72 08/18/21 07:00 Pulse Ox 100 08/18/21 07:00 Intake & Output 08/17/21 08/18/21 08/18/21 18:59 06:59 18:59 Intake Total 175 1325 275 Output Total 1275 765 100 Balance -1100 560 175 Intake: IV 75 1125 75 Sodium Chloride 0.9% 1, 75 1125 75 000 ml @ 75 mls/hr IV . [id number] PHIL Rx#:[id number] Oral 100 200 200 Output: Drainage [address] 70 0 Right Posterior 130 0 Urine 1075 765 100 Other: Voiding Method Urinal Urinal Indwelling Catheter ABP, PAP, CO, CI - Last Documented Arterial Blood Pressure 119/35 Pulmonary Artery Pressure 35/28 Cardiac Output 5 Cardiac Index 2.7 - Exam GENERAL EXAM: Alert, pale looking weak 81-year-old male, on her 3 L of oxygen pulse ox of 100% comfortable in no apparent distress. HEAD: Normocephalic/atraumatic. EYES: Normal reaction of pupils, equal size. Conjunctiva pink, sclera white. NOSE: Clear with pink turbinates. THROAT: No erythema or exudates. NECK: No masses, no JVD, no thyroid enlargement, no adenopathy. CHEST: No chest wall deformity. Symmetrical expansion. Midsternal incision clean dry and intact, patient has left-sided Pleurx catheter in place LUNGS: Equal air entry with no crackles, wheeze, rhonchi or dullness. CVS: Regular rate and rhythm, normal S1 and S2, no gallops, no murmurs, no rubs ABDOMEN: Soft, nontender. No hepatosplenomegaly, normal bowel sounds, no guarding or rigidity. EXTREMITIES: No clubbing, no edema, no cyanosis, 2+ pulses and upper and lower extremities. MUSCULOSKELETAL: Muscle strength and tone normal. SPINE: No scoliosis or deformity SKIN: No rashes CENTRAL NERVOUS SYSTEM: Alert and oriented -3. No focal deficits, tone is normal in all 4 extremities. PSYCHIATRIC: Alert and oriented -3. Appropriate affect. Intact judgment and insight. - Labs CBC & Chem 7: 08/18/21 05:35 08/18/21 05:35 Labs: Abnormal Lab Results - Last 24 Hours (Table) 08/17/21 08/17/21 08/18/21 Range/Units 16:47 20:53 05:35 WBC (3.8-10.6) k/uL RBC (4.30-5.90) m/uL Hgb (13.0-17.5) gm/dL Hct (39.0-53.0) % MCV (80.0-100.0) fL MCHC (31.0-37.0) g/dL RDW (11.5-15.5) % Plt Count (150-450) k/uL Neutrophils # (1.3-7.7) k/uL Lymphocytes # (1.0-4.8) k/uL Macrocytosis PT (9.0-12.0) sec INR (<1.2) Chloride 109 H (98-107) mmol/L BUN 132 H* (9-20) mg/dL Creatinine 2.66 H (0.66-1.25) mg/dL Glucose 39 L* (74-99) mg/dL POC Glucose (mg/dL) 144 H 102 H (75-99) mg/dL Calcium 8.2 L (8.4-10.2) mg/dL Magnesium 3.3 H (1.6-2.3) mg/dL Total Protein 5.4 L (6.3-8.2) g/dL Albumin 2.7 L (3.5-5.0) g/dL Prealbumin 12.3 L (18.0-42.0) mg/dL 08/18/21 08/18/21 08/18/21 Range/Units 05:35 05:35 06:22 WBC 11.3 H (3.8-10.6) k/uL RBC 2.90 L (4.30-5.90) m/uL Hgb 9.0 L (13.0-17.5) gm/dL Hct 30.9 L (39.0-53.0) % MCV 106.8 H (80.0-100.0) fL MCHC 29.2 L (31.0-37.0) g/dL RDW 21.1 H (11.5-15.5) % Plt Count 145 L (150-450) k/uL Neutrophils # 10.3 H (1.3-7.7) k/uL Lymphocytes # 0.3 L (1.0-4.8) k/uL Macrocytosis Marked A PT 23.4 H (9.0-12.0) sec INR 2.3 H (<1.2) Chloride (98-107) mmol/L BUN (9-20) mg/dL Creatinine (0.66-1.25) mg/dL Glucose (74-99) mg/dL POC Glucose (mg/dL) 49 L (75-99) mg/dL Calcium (8.4-10.2) mg/dL Magnesium (1.6-2.3) mg/dL Total Protein (6.3-8.2) g/dL Albumin (3.5-5.0) g/dL Prealbumin (18.0-42.0) mg/dL 08/18/21 Range/Units 06:46 WBC (3.8-10.6) k/uL RBC (4.30-5.90) m/uL Hgb (13.0-17.5) gm/dL Hct (39.0-53.0) % MCV (80.0-100.0) fL MCHC (31.0-37.0) g/dL RDW (11.5-15.5) % Plt Count (150-450) k/uL Neutrophils # (1.3-7.7) k/uL Lymphocytes # (1.0-4.8) k/uL Macrocytosis PT (9.0-12.0) sec INR (<1.2) Chloride (98-107) mmol/L BUN (9-20) mg/dL Creatinine (0.66-1.25) mg/dL Glucose (74-99) mg/dL POC Glucose (mg/dL) 161 H (75-99) mg/dL Calcium (8.4-10.2) mg/dL Magnesium (1.6-2.3) mg/dL Total Protein (6.3-8.2) g/dL Albumin (3.5-5.0) g/dL Prealbumin (18.0-42.0) mg/dL Assessment and Plan Plan: Assessment: #1. Mitral valve regurgitation, tricuspid valve regurgitation, status post mitral valve replacement, and tricuspid valve repair, with one-vessel coronary artery bypass grafting, postoperative day #21. Surgery was done on 07/28/2021 #2. Status post Pleurx catheter placement in the right pleural space for a recurrent right-sided pleural effusion with a trapped lung #3. Coronary artery disease with previous myocardial infarction and PCI, status post 1 vessel CABG #4. Hypertension #5. Chronic atrial fibrillation on Coumadin, status post left atrial appendage closure #6. Sick sinus syndrome, status post permanent pacemaker placement in 2017 #7. Chronic systolic CHF #8. Acute on chronic kidney injury #9. Chronic kidney disease stage IIIB #10. Acute exacerbation of COPD #11. Previous tobacco dependence #12. General medical debility Plan: Continue encouraging deep breathing and coughing Continue nebulized and inhaled bronchodilators Pleurx catheter management per CT surgery Generally patient appears to be weak, debilitated Physical therapy eval and treat Cardiology, nephrology Rodney GI and DVT prophylaxis Anticoagulation per CT surgery Continue to follow I have personally seen and examined the patient, performed the documentation and the assessment and plan as written. Number of minutes spent on the visit: 10 Time with Patient: Less than 30
--- NOTE | 2021-08-18 11:32 | P.GSCN ---
History of Present Illness Consult date: 08/18/21 History of present illness: 81 yo male in the hospital since 07/28 He had cardiac valular surgery. He has had a prolonged post operative stay. He is in the icu. He is in retention nad has a catheter. We have been asked to see him for that reason.He has seen Dr Morataya and was diagnosed with prostate cancer to the patients age, cardiac health and small volume of cancer he was placed on active surveillance. HE didnt fu until recently when he saw Dr Garzon. His last psa was 14. According to the patient today he didnt even remember the diagnosis of prostate cancer. He denies problems voiding. He hasnt been on alpha blockers prior to this hospitalization. He is weak yet from his surgery.According to his nurse he will probably go to a rehab unit upon dischsrge. He has an indwelling catheter at present. Review of Systems ROS unobtainable: due to mental status Past Medical History Past Medical History: Atrial Fibrillation, Coronary Artery Disease (CAD), Heart Failure, COPD, Hyperlipidemia, Hypertension, Myocardial Infarction (MA), Osteoarthritis (OA), Pneumonia, Prostate Disorder, Renal Disease, Sleep Apnea/CPAP/BIPAP Additional Past Medical History / Comment(s): CPAP use, PSA elevated, CKD Stage 2-3, gout bilateral great toes. Last Myocardial Infarction Date:: 2001 History of Any Multi-Drug Resistant Organisms: None Reported Past Surgical History: Appendectomy, Heart Catheterization, Heart Catheterization With Stent, Orthopedic Surgery, Pacemaker Additional Past Surgical History / Comment(s): PCI with stents, pacemaker, percutaneous closure of ASD/PFO, multiple AVIVA, colonoscopy with benign polyps, R hand surgery for dupuytren's and injections to L hand for the same, ORIF R elbow and wrist as child. Past Anesthesia/Blood Transfusion Reactions: No Reported Reaction Additional Past Anesthesia/Blood Transfusion Reaction / Comm: Pt has clausterphobia Date of Last Stent Placement:: 10/2012 Type of Cardiac Device: Permanent Pacemaker Device Placement Date:: 2016 Past Psychological History: No Psychological Hx Reported Smoking Status: Former smoker Past Alcohol Use History: Heavy Additional Past Alcohol Use History / Comment(s): Started smoking in 1 and quit in 1974. Hx of being a heavy drinker but quit about 2006. Very rare drink now, once a year. Past Drug Use History: None Reported - Past Family History Father Additional Family Medical History / Comment(s): Father had heart problems. Mother Family Medical History: AFIB Additional Family Medical History / Comment(s): Mother had heart problems. Sister(s) Family Medical History: Cancer Additional Family Medical History / Comment(s): One sister with breast cancer and another had a pacemaker. Medications and Allergies Home Medications Medication Instructions Recorded Confirmed Type Atorvastatin [Lipitor] 40 mg PO HS 07/21/14 07/25/21 History amLODIPine BESYLATE [Norvasc] 10 mg PO HS #30 tablet 05/06/16 07/25/21 Rx Clopidogrel Bisulfate [Plavix] 75 mg PO QAM 06/25/20 07/25/21 History Allopurinol [Zyloprim] 150 mg PO QAM 06/17/21 07/25/21 History Bumetanide [BUMEX] 1 mg PO QAM 06/17/21 07/25/21 History Bumetanide [Bumex] 3 mg PO HS 06/17/21 07/25/21 History Isosorbide Mononitrate ER [Imdur] 60 mg PO QAM 06/17/21 07/25/21 History Losartan Potassium 50 mg PO QAM 06/17/21 07/25/21 History Potassium Chloride [Klor-Con 20 20 meq PO BID 06/17/21 07/25/21 History Packets] Warfarin [Coumadin] 1 mg PO HS 06/17/21 07/25/21 History Ascorbic Acid [Vitamin C] 1,000 mg PO QAM 07/22/21 07/25/21 History Calcium Acetate 667 mg PO HS 07/22/21 07/25/21 History Ergocalciferol [Vitamin D2 (1250 1,250 mcg PO Q30D 07/22/21 07/25/21 History Mcg = 56017 Iu)] Ferrous Sulfate [Iron] 325 mg PO QAM 07/22/21 07/25/21 History Folic Acid 0.4 mg PO QAM 07/22/21 07/25/21 History Loratadine [Claritin] 10 mg PO QAM 07/22/21 07/25/21 History Mupirocin [Mupirocin 2%] 1 applic NASAL BID #1 tub 07/24/21 07/25/21 Rx Aspirin 325 mg PO DAILY 07/28/21 07/28/21 History Allergies Allergy/AdvReac Type Severity Reaction Status Date / Time furosemide [From Lasix] Allergy Swelling Verified 07/28/21 06:08 Surgical - Exam Vital Signs Temp Pulse Resp BP Pulse Ox 97.4 F L 86 18 125/74 91 L 07/28/21 06:04 07/28/21 06:04 07/28/21 06:04 07/28/21 06:04 07/28/21 06:04 - General thin, weak. well developed - Eyes PERRL - ENT no hearing loss - Neck trachea midline - Respiratory chest binder post surgical normal respiratory effort - Cardiovascular Rhythm: irregularly irregular - Abdomen Abdomen: soft, non tender - Genitourinary indwelling catheter normal penis with no external lesions, testicles present - Neurologic normal sensation - Musculoskeletal normal posture - Psychiatric oriented to person, oriented to place, speech is normal Results - Labs 08/18/21 05:35 08/18/21 05:35 Abnormal Lab Results - Last 24 Hours (Table) 08/17/21 08/17/21 08/18/21 Range/Units 16:47 20:53 05:35 WBC (3.8-10.6) k/uL RBC (4.30-5.90) m/uL Hgb (13.0-17.5) gm/dL Hct (39.0-53.0) % MCV (80.0-100.0) fL MCHC (31.0-37.0) g/dL RDW (11.5-15.5) % Plt Count (150-450) k/uL Neutrophils # (1.3-7.7) k/uL Lymphocytes # (1.0-4.8) k/uL Macrocytosis PT (9.0-12.0) sec INR (<1.2) Chloride 109 H (98-107) mmol/L BUN 132 H* (9-20) mg/dL Creatinine 2.66 H (0.66-1.25) mg/dL Glucose 39 L* (74-99) mg/dL POC Glucose (mg/dL) 144 H 102 H (75-99) mg/dL Calcium 8.2 L (8.4-10.2) mg/dL Magnesium 3.3 H (1.6-2.3) mg/dL Total Protein 5.4 L (6.3-8.2) g/dL Albumin 2.7 L (3.5-5.0) g/dL 08/18/21 08/18/21 08/18/21 Range/Units 05:35 05:35 06:22 WBC 11.3 H (3.8-10.6) k/uL RBC 2.90 L (4.30-5.90) m/uL Hgb 9.0 L (13.0-17.5) gm/dL Hct 30.9 L (39.0-53.0) % MCV 106.8 H (80.0-100.0) fL MCHC 29.2 L (31.0-37.0) g/dL RDW 21.1 H (11.5-15.5) % Plt Count 145 L (150-450) k/uL Neutrophils # 10.3 H (1.3-7.7) k/uL Lymphocytes # 0.3 L (1.0-4.8) k/uL Macrocytosis Marked A PT 23.4 H (9.0-12.0) sec INR 2.3 H (<1.2) Chloride (98-107) mmol/L BUN (9-20) mg/dL Creatinine (0.66-1.25) mg/dL Glucose (74-99) mg/dL POC Glucose (mg/dL) 49 L (75-99) mg/dL Calcium (8.4-10.2) mg/dL Magnesium (1.6-2.3) mg/dL Total Protein (6.3-8.2) g/dL Albumin (3.5-5.0) g/dL 08/18/21 Range/Units 06:46 WBC (3.8-10.6) k/uL RBC (4.30-5.90) m/uL Hgb (13.0-17.5) gm/dL Hct (39.0-53.0) % MCV (80.0-100.0) fL MCHC (31.0-37.0) g/dL RDW (11.5-15.5) % Plt Count (150-450) k/uL Neutrophils # (1.3-7.7) k/uL Lymphocytes # (1.0-4.8) k/uL Macrocytosis PT (9.0-12.0) sec INR (<1.2) Chloride (98-107) mmol/L BUN (9-20) mg/dL Creatinine (0.66-1.25) mg/dL Glucose (74-99) mg/dL POC Glucose (mg/dL) 161 H (75-99) mg/dL Calcium (8.4-10.2) mg/dL Magnesium (1.6-2.3) mg/dL Total Protein (6.3-8.2) g/dL Albumin (3.5-5.0) g/dL Diabetes panel 08/18/21 Range/Units 05:35 Sodium 143 (137-145) mmol/L Potassium 3.6 (3.5-5.1) mmol/L Chloride 109 H (98-107) mmol/L Carbon Dioxide 27 (22-30) mmol/L BUN 132 H* (9-20) mg/dL Creatinine 2.66 H (0.66-1.25) mg/dL Glucose 39 L* (74-99) mg/dL Calcium 8.2 L (8.4-10.2) mg/dL AST 39 (17-59) U/L ALT 19 (4-49) U/L Alkaline Phosphatase 90 (38-126) U/L Total Protein 5.4 L (6.3-8.2) g/dL Albumin 2.7 L (3.5-5.0) g/dL Calcium panel 08/18/21 Range/Units 05:35 Calcium 8.2 L (8.4-10.2) mg/dL Albumin 2.7 L (3.5-5.0) g/dL Pituitary panel 08/18/21 Range/Units 05:35 Sodium 143 (137-145) mmol/L Potassium 3.6 (3.5-5.1) mmol/L Chloride 109 H (98-107) mmol/L Carbon Dioxide 27 (22-30) mmol/L BUN 132 H* (9-20) mg/dL Creatinine 2.66 H (0.66-1.25) mg/dL Glucose 39 L* (74-99) mg/dL Calcium 8.2 L (8.4-10.2) mg/dL Adrenal panel 08/18/21 Range/Units 05:35 Sodium 143 (137-145) mmol/L Potassium 3.6 (3.5-5.1) mmol/L Chloride 109 H (98-107) mmol/L Carbon Dioxide 27 (22-30) mmol/L BUN 132 H* (9-20) mg/dL Creatinine 2.66 H (0.66-1.25) mg/dL Glucose 39 L* (74-99) mg/dL Calcium 8.2 L (8.4-10.2) mg/dL Total Bilirubin 0.8 (0.2-1.3) mg/dL AST 39 (17-59) U/L ALT 19 (4-49) U/L Alkaline Phosphatase 90 (38-126) U/L Total Protein 5.4 L (6.3-8.2) g/dL Albumin 2.7 L (3.5-5.0) g/dL Assessment and Plan Assessment: Impression: post operative urinary retention. History of prostate cancer. Sp cardiac valvular replacement.Multiple medical illnesses. Post op FTT Plan: The patient was placed on flomax. I recommend leaving the indwelling catheter until he is ambulatory. I suspect that this will be at the rehab center. Removing and replacing the catheter too often actually will create a greater chance for sepsis than just leaving indwelling until he is ready for an adequate voiding trial. We will follow. Time with Patient: Greater than 30
[2021-08-18 11:40] LABS: Glucose,Whole Blood 138 mg/dL (75-99)
[2021-08-18] MEDS: DARBEPOETIN ALFA 60 MCG/0.3 ML SYRINGE SQ SCH (11:58)
--- NOTE | 2021-08-18 13:21 | P.GSCN ---
History of Present Illness Consult date: 08/18/21 History of present illness: CHIEF COMPLAINT: Mitral regurgitation, tricuspid regurgitation, coronary disease, chronic atrial fibrillation, chronic systolic heart failure, ASD Surgical consult: PEG tube placement HISTORY OF PRESENT ILLNESS: This is a 81-year-old male who is postop day #21 status post mitral valve replacement, tricuspid valve repair and one vessel CABG . Also status post Pleurx catheter placement for recurrent right-sided pleural effusion. Patient remains in the ICU. He is on 2.5 L nasal cannula satting at 97%. Patient has had poor oral intake. is at bedside reports that he is not a big eater at home on a regular basis. He is eating less than 50% of his meals. They are starting him on Megace. They've also adjusted antidepressant. However, patient is only eating a few bites of food off of his trays. Patient denies any difficulty with eating or swallowing. He just reports he has no significant appetite. Albumin level has been low at 2.7. He denies any abdominal pain. Denies any nausea or vomiting. He reports having bowel movements. Medicine service has ordered a computed tomography scan of the brain for further evaluation. Patient's Coumadin has been on hold since Wednesday. INR is at 2.3. Abdominal surgical history includes appendectomy. PAST MEDICAL HISTORY: See list. PAST SURGICAL HISTORY: See list. MEDICATIONS: See list. ALLERGIES: See list. SOCIAL HISTORY: No illicit drug use. REVIEW OF SYSTEMS: CONSTITUTIONAL: Denies fever or chills. HEENT: Denies blurred vision, vision changes, or eye pain. Denies hemoptysis CARDIOVASCULAR: Denies chest pain or pressure. RESPIRATORY: No shortness of breath. GASTROINTESTINAL: See HPI for pertinent findings HEMATOLOGIC: Denies bleeding disorders. GENITOURINARY: Denies any blood in urine or increased urinary frequency. SKIN: Denies pruitis. Denies rash. PHYSICAL EXAM: VITAL SIGNS: Reviewed GENERAL: Well-developed in no acute distress. HEENT: No sclera icterus. Extraocular movements grossly intact. Moist buccal mucosa. Head is atraumatic, normocephalic. No nasal drainage. ABDOMEN: Soft. Nondistended. Nontender NEUROLOGIC: Alert and oriented. Cranial nerves II through XII grossly intact. LABORATORY DATA: WBC IS 11.3 HEMOGLOBIN 9.0 PLATELETS 145 INR 2.3 SODIUM 143 POTASSIUM 3.6 CREATININE 2.66 MAGNESIUM 3.3 ALBUMIN 2.7 AND PRE- ALBUMIN 12.3 IMAGING: ASSESSMENT: 1. Severe protein calorie malnutrition 2. Poor oral intake 3. Status post mitral valve replacement, tricuspid valve repair and one vessel CABG with Dr. Collado PLAN: -Patient scheduled for EGD with PEG tube placement tomorrow, 08/19/[address] Webber -Keep patient nothing by mouth after midnight -Continue to hold Coumadin -Continue supportive care Thank you for this consultation Physician Tire Fabric Inspector note has been reviewed by physician. Signing provider agrees with the documented findings, assessment, and plan of care. I have personally seen and examined the patient, reviewed the RADIATOR CLEANER /PAs history, exam and MDM and agree with the assessment and plan as written. Based on total visit time, I have performed more than 50% of the visit. As above: Patient with poor oral intake and generalized weakness. Patient and I discussed options of PEG tube placement. The procedure was explained. Patient says he would like to hold off for today and think about this more with his cardiothoracic team tomorrow. We'll follow with you. Past Medical History Past Medical History: Atrial Fibrillation, Coronary Artery Disease (CAD), Heart Failure, COPD, Hyperlipidemia, Hypertension, Myocardial Infarction (ME), Osteoarthritis (OA), Pneumonia, Prostate Disorder, Renal Disease, Sleep Apnea/CPAP/BIPAP Additional Past Medical History / Comment(s): CPAP use, PSA elevated, CKD Stage 2-3, gout bilateral great toes. Last Myocardial Infarction Date:: 2001 History of Any Multi-Drug Resistant Organisms: None Reported Past Surgical History: Appendectomy, Heart Catheterization, Heart Catheterization With Stent, Orthopedic Surgery, Pacemaker Additional Past Surgical History / Comment(s): PCI with stents, pacemaker, percutaneous closure of ASD/PFO, multiple AVIVA, colonoscopy with benign polyps, R hand surgery for dupuytren's and injections to L hand for the same, ORIF R elbow and wrist as child. Past Anesthesia/Blood Transfusion Reactions: No Reported Reaction Additional Past Anesthesia/Blood Transfusion Reaction / Comm: Pt has clauste rphobia Date of Last Stent Placement:: 10/2012 Type of Cardiac Device: Permanent Pacemaker Device Placement Date:: 2016 Past Psychological History: No Psychological Hx Reported Smoking Status: Former smoker Past Alcohol Use History: Heavy Additional Past Alcohol Use History / Comment(s): Started smoking in 1 and quit in 1974. Hx of being a heavy drinker but quit about 2006. Very rare drink now, once a year. Past Drug Use History: None Reported - Past Family History Father Additional Family Medical History / Comment(s): Father had heart problems. Mother Family Medical History: AFIB Additional Family Medical History / Comment(s): Mother had heart problems. Sister(s) Family Medical History: Cancer Additional Family Medical History / Comment(s): One sister with breast cancer and another had a pacemaker. Medications and Allergies Home Medications Medication Instructions Recorded Confirmed Type Atorvastatin [Lipitor] 40 mg PO HS 07/21/14 07/25/21 History amLODIPine BESYLATE [Norvasc] 10 mg PO HS #30 tablet 05/06/16 07/25/21 Rx Clopidogrel Bisulfate [Plavix] 75 mg PO QAM 06/25/20 07/25/21 History Allopurinol [Zyloprim] 150 mg PO QAM 06/17/21 07/25/21 History Bumetanide [BUMEX] 1 mg PO QAM 06/17/21 07/25/21 History Bumetanide [Bumex] 3 mg PO HS 06/17/21 07/25/21 History Isosorbide Mononitrate ER [Imdur] 60 mg PO QAM 06/17/21 07/25/21 History Losartan Potassium 50 mg PO QAM 06/17/21 07/25/21 History Potassium Chloride [Klor-Con 20 20 meq PO BID 06/17/21 07/25/21 History Packets] Warfarin [Coumadin] 1 mg PO HS 06/17/21 07/25/21 History Ascorbic Acid [Vitamin C] 1,000 mg PO QAM 07/22/21 07/25/21 History Calcium Acetate 667 mg PO HS 07/22/21 07/25/21 History Ergocalciferol [Vitamin D2 (1250 1,250 mcg PO Q30D 07/22/21 07/25/21 History Mcg = 92967 Iu)] Ferrous Sulfate [Iron] 325 mg PO QAM 07/22/21 07/25/21 History Folic Acid 0.4 mg PO QAM 07/22/21 07/25/21 History Loratadine [Claritin] 10 mg PO QAM 07/22/21 07/25/21 History Mupirocin [Mupirocin 2%] 1 applic NASAL BID #1 tub 07/24/21 07/25/21 Rx Aspirin 325 mg PO DAILY 07/28/21 07/28/21 History Allergies Allergy/AdvReac Type Severity Reaction Status Date / Time furosemide [From Lasix] Allergy Swelling Verified 07/28/21 06:08 Surgical - Exam Vital Signs Temp Pulse Resp BP Pulse Ox 97.4 F L 86 18 125/74 91 L 07/28/21 06:04 07/28/21 06:04 07/28/21 06:04 07/28/21 06:04 07/28/21 06:04 Results - Labs 08/18/21 05:35 08/18/21 05:35 Abnormal Lab Results - Last 24 Hours (Table) 08/17/21 08/17/21 08/18/21 Range/Units 16:47 20:53 05:35 WBC (3.8-10.6) k/uL RBC (4.30-5.90) m/uL Hgb (13.0-17.5) gm/dL Hct (39.0-53.0) % MCV (80.0-100.0) fL MCHC (31.0-37.0) g/dL RDW (11.5-15.5) % Plt Count (150-450) k/uL Neutrophils # (1.3-7.7) k/uL Lymphocytes # (1.0-4.8) k/uL Macrocytosis PT (9.0-12.0) sec INR (<1.2) Chloride 109 H (98-107) mmol/L BUN 132 H* (9-20) mg/dL Creatinine 2.66 H (0.66-1.25) mg/dL Glucose 39 L* (74-99) mg/dL POC Glucose (mg/dL) 144 H 102 H (75-99) mg/dL Calcium 8.2 L (8.4-10.2) mg/dL Magnesium 3.3 H (1.6-2.3) mg/dL Total Protein 5.4 L (6.3-8.2) g/dL Albumin 2.7 L (3.5-5.0) g/dL Prealbumin 12.3 L (18.0-42.0) mg/dL 08/18/21 08/18/21 08/18/21 Range/Units 05:35 05:35 06:22 WBC 11.3 H (3.8-10.6) k/uL RBC 2.90 L (4.30-5.90) m/uL Hgb 9.0 L (13.0-17.5) gm/dL Hct 30.9 L (39.0-53.0) % MCV 106.8 H (80.0-100.0) fL MCHC 29.2 L (31.0-37.0) g/dL RDW 21.1 H (11.5-15.5) % Plt Count 145 L (150-450) k/uL Neutrophils # 10.3 H (1.3-7.7) k/uL Lymphocytes # 0.3 L (1.0-4.8) k/uL Macrocytosis Marked A PT 23.4 H (9.0-12.0) sec INR 2.3 H (<1.2) Chloride (98-107) mmol/L BUN (9-20) mg/dL Creatinine (0.66-1.25) mg/dL Glucose (74-99) mg/dL POC Glucose (mg/dL) 49 L (75-99) mg/dL Calcium (8.4-10.2) mg/dL Magnesium (1.6-2.3) mg/dL Total Protein (6.3-8.2) g/dL Albumin (3.5-5.0) g/dL Prealbumin (18.0-42.0) mg/dL 08/18/21 08/18/21 Range/Units 06:46 11:38 WBC (3.8-10.6) k/uL RBC (4.30-5.90) m/uL Hgb (13.0-17.5) gm/dL Hct (39.0-53.0) % MCV (80.0-100.0) fL MCHC (31.0-37.0) g/dL RDW (11.5-15.5) % Plt Count (150-450) k/uL Neutrophils # (1.3-7.7) k/uL Lymphocytes # (1.0-4.8) k/uL Macrocytosis PT (9.0-12.0) sec INR (<1.2) Chloride (98-107) mmol/L BUN (9-20) mg/dL Creatinine (0.66-1.25) mg/dL Glucose (74-99) mg/dL POC Glucose (mg/dL) 161 H 138 H (75-99) mg/dL Calcium (8.4-10.2) mg/dL Magnesium (1.6-2.3) mg/dL Total Protein (6.3-8.2) g/dL Albumin (3.5-5.0) g/dL Prealbumin (18.0-42.0) mg/dL Diabetes panel 08/18/21 Range/Units 05:35 Sodium 143 (137-145) mmol/L Potassium 3.6 (3.5-5.1) mmol/L Chloride 109 H (98-107) mmol/L Carbon Dioxide 27 (22-30) mmol/L BUN 132 H* (9-20) mg/dL Creatinine 2.66 H (0.66-1.25) mg/dL Glucose 39 L* (74-99) mg/dL Calcium 8.2 L (8.4-10.2) mg/dL AST 39 (17-59) U/L ALT 19 (4-49) U/L Alkaline Phosphatase 90 (38-126) U/L Total Protein 5.4 L (6.3-8.2) g/dL Albumin 2.7 L (3.5-5.0) g/dL Calcium panel 08/18/21 Range/Units 05:35 Calcium 8.2 L (8.4-10.2) mg/dL Albumin 2.7 L (3.5-5.0) g/dL Pituitary panel 08/18/21 Range/Units 05:35 Sodium 143 (137-145) mmol/L Potassium 3.6 (3.5-5.1) mmol/L Chloride 109 H (98-107) mmol/L Carbon Dioxide 27 (22-30) mmol/L BUN 132 H* (9-20) mg/dL Creatinine 2.66 H (0.66-1.25) mg/dL Glucose 39 L* (74-99) mg/dL Calcium 8.2 L (8.4-10.2) mg/dL Adrenal panel 04/18/22 Range/Units 05:35 Sodium 143 (137-145) mmol/L Potassium 3.6 (3.5-5.1) mmol/L Chloride 109 H (98-107) mmol/L Carbon Dioxide 27 (22-30) mmol/L BUN 132 H* (9-20) mg/dL Creatinine 2.66 H (0.66-1.25) mg/dL Glucose 39 L* (74-99) mg/dL Calcium 8.2 L (8.4-10.2) mg/dL Total Bilirubin 0.8 (0.2-1.3) mg/dL AST 39 (17-59) U/L ALT 19 (4-49) U/L Alkaline Phosphatase 90 (38-126) U/L Total Protein 5.4 L (6.3-8.2) g/dL Albumin 2.7 L (3.5-5.0) g/dL
--- NOTE | 2021-08-18 14:06 | PN ---
PROGRESS NOTE DATE OF SERVICE: 08/18/2021 This 81-year-old gentleman admitted after mitral valve replacement, tricuspid valve repair and single bypass graft also had right pleural effusion. Patient also had hypoglycemia. Patient also had a Cortes catheter. The patient was evaluated for PEG tube placement for diminished p.o. intake. The patient is also refusing PT/OT. No chest pain. No palpitations. Past medical history reviewed. REVIEW OF SYSTEMS: CARDIOVASCULAR: No angina. RESPIRATORY SYSTEM: As mentioned earlier. GI: As mentioned earlier. : No dysuria, retention. NERVOUS SYSTEM: No numbness, weakness. CURRENT MEDICATIONS: Reviewed. They include Tylenol and DuoNeb. Doses and route reviewed. PHYSICAL EXAMINATION: Pulse is 70, blood pressure is 130/50, respiration 10, temperature 97.3. HEENT: Conjunctivae normal. NECK: No jugular venous distention. CARDIOVASCULAR: S1, S2 muffled. RESPIRATION: Breath sounds diminished at the bases. Bilateral scattered rhonchi and coarse crackles. ABDOMEN: Soft. NERVOUS SYSTEM: Diffusely weak. LABS: WBC 11, hemoglobin is 9, creatinine 2.66. ASSESSMENT: 1. Status post mitral valve replacement, tricuspid valve repair, single-vessel graft. 2. Right pleural effusion. 3. Chronic obstructive pulmonary disease. 4. Renal insufficiency. 5. Klebsiella pneumonia. 6. Hypoglycemia. 7. Gait dysfunction. 8. Poor nutrition. RECOMMENDATIONS AND DISCUSSION: I recommend to continue current medications, continue with the monitoring, symptomatic treatment, bronchodilators. I would also recommend evaluation for PEG tube placement, PT/OT evaluation. Continue to monitor. See orders for further details. Continue the bronchodilators. Prognosis guarded. Discussed with the patient's at length at bedside. Follow closely with multiple consultants. Further recommendations to follow. Also recommend a CT of the brain and baseline workup if it was not done previously to rule out any frontal stroke. MMODL / IJN: [id number] /
--- NOTE | 2021-08-18 14:22 | P.PN ---
Subjective Patient is seen for follow-up for acute kidney injury on top of chronic kidney disease. He is postop day #21 after mitral valve replacement, tricuspid valve repair and coronary artery bypass grafting 1. Patient has had urine retention for which a Cortes catheter is now in. Patient has been diuresed [place] at BUN has been disproportionately elevated and had increased to 145 yesterday with serum creatinine at 2.9 mg/dL. Over the weekend it was decided to initiate renal replacement therapy today. Patient was started on IV fluids as well over the weekend. This morning patient is sitting up in a chair. He is awake comfortable. No respiratory distress noted [place] at Urine output at about 50 mL an hour. Blood pressure is not low. Serum creatinine is down to 2.6 mg/dL and BUN is decreased to 132 today. Hemodialysis currently on hold. Objective - Vital Signs Vital signs: Vital Signs Temp 97.5 F L 08/18/21 12:00 Pulse 70 08/18/21 12:00 Resp 10 L 08/18/21 12:00 BP 130/59 08/18/21 12:00 Pulse Ox 97 08/18/21 12:00 Intake & Output 08/17/21 08/18/21 08/18/21 18:59 06:59 18:59 Intake Total 175 1325 525 Output Total 1275 765 255 Balance -1100 560 270 Weight 71 kg Intake: IV 75 1125 75 Sodium Chloride 0.9% 1, 75 1125 75 000 ml @ 75 mls/hr IV . [id number] [facility] Rx#:[id number] Oral 100 200 450 Output: Drainage [address] 70 0 0 Right Posterior 130 0 0 Urine 1075 765 255 Other: Voiding Method Urinal Urinal Indwelling Catheter ABP, PAP, CO, CI - Last Documented Arterial Blood Pressure 119/35 Pulmonary Artery Pressure 35/28 Cardiac Output 5 Cardiac Index 2.7 - Exam Patient is awake comfortable. Not in any acute distress Examination of the heart S1 and S2 Examination lungs bilateral breath sounds heard, decreased breath sounds at the bases Abdomen is soft Examination lower extremity shows 1+ edema bilateral lower extremities improved from 10 days ago [employer] exam grossly intact - Labs CBC & Chem 7: 08/18/21 05:35 08/18/21 05:35 Labs: Abnormal Lab Results - Last 24 Hours (Table) 08/17/21 08/17/21 08/18/21 Range/Units 16:47 20:53 05:35 WBC (3.8-10.6) k/uL RBC (4.30-5.90) m/uL Hgb (13.0-17.5) gm/dL Hct (39.0-53.0) % MCV (80.0-100.0) fL MCHC (31.0-37.0) g/dL RDW (11.5-15.5) % Plt Count (150-450) k/uL Neutrophils # (1.3-7.7) k/uL Lymphocytes # (1.0-4.8) k/uL Macrocytosis PT (9.0-12.0) sec INR (<1.2) Chloride 109 H (98-107) mmol/L BUN 132 H* (9-20) mg/dL Creatinine 2.66 H (0.66-1.25) mg/dL Glucose 39 L* (74-99) mg/dL POC Glucose (mg/dL) 144 H 102 H (75-99) mg/dL Calcium 8.2 L (8.4-10.2) mg/dL Magnesium 3.3 H (1.6-2.3) mg/dL Total Protein 5.4 L (6.3-8.2) g/dL Albumin 2.7 L (3.5-5.0) g/dL Prealbumin 12.3 L (18.0-42.0) mg/dL 08/18/21 08/18/21 08/18/21 Range/Units 05:35 05:35 06:22 WBC 11.3 H (3.8-10.6) k/uL RBC 2.90 L (4.30-5.90) m/uL Hgb 9.0 L (13.0-17.5) gm/dL Hct 30.9 L (39.0-53.0) % MCV 106.8 H (80.0-100.0) fL MCHC 29.2 L (31.0-37.0) g/dL RDW 21.1 H (11.5-15.5) % Plt Count 145 L (150-450) k/uL Neutrophils # 10.3 H (1.3-7.7) k/uL Lymphocytes # 0.3 L (1.0-4.8) k/uL Macrocytosis Marked A PT 23.4 H (9.0-12.0) sec INR 2.3 H (<1.2) Chloride (98-107) mmol/L BUN (9-20) mg/dL Creatinine (0.66-1.25) mg/dL Glucose (74-99) mg/dL POC Glucose (mg/dL) 49 L (75-99) mg/dL Calcium (8.4-10.2) mg/dL Magnesium (1.6-2.3) mg/dL Total Protein (6.3-8.2) g/dL Albumin (3.5-5.0) g/dL Prealbumin (18.0-42.0) mg/dL 08/18/21 08/18/21 Range/Units 06:46 11:38 WBC (3.8-10.6) k/uL RBC (4.30-5.90) m/uL Hgb (13.0-17.5) gm/dL Hct (39.0-53.0) % MCV (80.0-100.0) fL MCHC (31.0-37.0) g/dL RDW (11.5-15.5) % Plt Count (150-450) k/uL Neutrophils # (1.3-7.7) k/uL Lymphocytes # (1.0-4.8) k/uL Macrocytosis PT (9.0-12.0) sec INR (<1.2) Chloride (98-107) mmol/L BUN (9-20) mg/dL Creatinine (0.66-1.25) mg/dL Glucose (74-99) mg/dL POC Glucose (mg/dL) 161 H 138 H (75-99) mg/dL Calcium (8.4-10.2) mg/dL Magnesium (1.6-2.3) mg/dL Total Protein (6.3-8.2) g/dL Albumin (3.5-5.0) g/dL Prealbumin (18.0-42.0) mg/dL Assessment and Plan Assessment: 1. Acute kidney injury, ATN associated with hemodynamic instability. Patient also has underlying urine retention, currently with indwelling Cortes catheter Urine output is maintained. Status post IV fluids over the weekend. 2. 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 Status post mitral valve replacement, tricuspid valve repair and coronary artery bypass surgery 1 4. Volume overload, status post diuresis 4. Metabolic acidosis associated with acute kidney injury currently improved 6. Acute blood loss anemia postop status post packed RBCs transfusion, currently maintained on Aranesp. Status post IV iron 7. CK D mineral bone disorder currently maintained on PhosLo Plan: Hold renal replacement therapy as renal function is improved with adequate urine output. Hold diuretics for now and continue to hold off on IV fluids as well. Replace potassium cautiously Encourage increased oral intake Repeat labs in a.m.
--- NOTE | 2021-08-18 15:16 | CT ---
EXAMINATION TYPE: CT brain wo con DATE OF EXAM: 08/18/2021 COMPARISON: CT dated 05/04/2016 HISTORY: Altered mental status changes CT DLP: 1052.4 mGycm Automated exposure control for dose reduction was used. TECHNIQUE: CT scan of the brain is performed without IV contrast administration. FINDINGS: Brain volume loss changes, likely age-related. Bilateral cerebral white matter hypodensities, likely representing chronic microvascular ischemic changes. Small left occipital cortical infarct with a lef t superior parietal cortical and subcortical chronic infarct, appreciated previously. Scattered arter ial atherosclerotic calcifications. Suspected right inferior cerebellar infarct, please correlate clinically. No acute intracranial hemor rhage. No gross acute cortical infarct. No midline shift, herniation or ventriculomegaly. Unremarkabl e basal cisterns, sella and CP angles. No gross space-occupying lesion, vasogenic edema or mass effec t. Unremarkable orbits. Clear visualized paranasal sinuses and mastoid air cells. Osteopenia. IMPRESSION: Brain volume loss changes, chronic ischemic changes and scattered chronic infarcts as described above . Suspected right inferior cerebellar infarct, not well appreciated previously, please correlate clinic ally. No intracranial hemorrhage or other gross acute cortical infarct. Further MRI assessment can be consi dered if clinically required.
[2021-08-18 17:45] LABS: Glucose,Whole Blood 249 mg/dL (75-99)
[2021-08-18] MEDS: MEGESTROL 400 MG/10 ML CUP PO SCH (19:50)
[2021-08-18] MEDS: ATORVASTATIN 40 MG TAB PO SCH (20:14)
[2021-08-18] MEDS: CALCIUM ACETATE 667 MG TAB PO SCH (20:14)
[2021-08-18 20:17] LABS: Glucose,Whole Blood 270 mg/dL (75-99)
[2021-08-19 06:15] LABS: Anisocytosis Moderate; Basophils % (A) 0 %; Eosinophils % (A) 0 %; HCT 31.5 % (39.0-53.0); HGB 8.9 gm/dL (13.0-17.5); Hypochromasia Marked; Lymphocytes # (A) 0.2 k/uL (1.0-4.8); Lymphocytes % (A) 2 %; MCH 31.1 pg (25.0-35.0); MCHC 28.3 g/dL (31.0-37.0); MCV 109.8 fL (80.0-100.0); Mean Platelet Volume 9.3; Monocytes # (A) 0.7 k/uL (0-1.0); Monocytes % (A) 6 %; Neutrophils # (A) 9.6 k/uL (1.3-7.7); Neutrophils % (A) 90 %; Platelet Count 134 k/uL (150-450); Poikilocytosis Moderate; RBC 2.87 m/uL (4.30-5.90); RDW 21.2 % (11.5-15.5); WBC 10.6 k/uL (3.8-10.6)
[2021-08-19 06:27] LABS: Albumin 2.8 g/dL (3.5-5.0); Calcium 8.3 mg/dL (8.4-10.2); Potassium 3.9 mmol/L (3.5-5.1); Total Protein 5.6 g/dL (6.3-8.2)
[2021-08-19 06:32] LABS: INR 2.2 (<1.2); Macrocytosis Marked; Prothrombin Time 22.2 sec (9.0-12.0)
[2021-08-19 06:34] LABS: Glucose,Whole Blood 162 mg/dL (75-99)
[2021-08-19] MEDS: INSULIN ASPART (NovoLOG) 100 UNIT/ML VIAL SQ SCH ×6 (06:35→21:00)
[2021-08-19] MEDS ORDERED: INSULIN DETEMIR (LEVEMIR) 100 UNIT/ML SYR SQ SCH (07:00)
[2021-08-19] MEDS: IPRATROPIUM-ALBUTEROL 3 ML NEB INHALATION SCH ×4 (07:10→20:11)
[2021-08-19] MEDS: SYMBICORT 160-4.5 MCG INHALER INHALATION SCH ×2 (07:10→20:11)
--- NOTE | 2021-08-19 08:20 | XR ---
EXAMINATION TYPE: XR chest 1V portable DATE OF EXAM: 08/19/2021 COMPARISON: 08/18/2021 INDICATION: Postop cardiac surgery TECHNIQUE: Single frontal view of the chest is obtained. FINDINGS: The heart size is mildly prominent. The pulmonary vasculature is prominent. Diffuse increased lung markings are in the right mid and lower lung field. A small right pleural effu natividad is present. Mild left basilar infiltrate may be present. IMPRESSION: 1. Equivocal correlation recommended for congestive heart failure. Continued follow-up is recommended .
--- NOTE | 2021-08-19 08:46 | P.PN ---
Subjective Progress Note Date: 08/19/21 The patient is an 81-year-old male who underwent mitral valve replacement,tricuspid valve repair, and CABG 1 with SVG to OM on July 28. The patient's recovery has been complicated by worsening kidney disease as well as right pleural effusion, requiring chest tube placement. The patient was interviewed and examined sitting in the recliner chair. He states he again feels unwell, however appears less labored in comparison to yesterday. He still has some discomfort along his sternal incision. GENERAL: Pale. In no acute distress NECK: Supple without JVD or thyromegaly. LUNGS: Breath sounds rhonchorous bilaterally, improving. Breath sounds equal. HEART: Regular rate and rhythm. Soft systolic murmur. No rubs or gallops. S1 and S2 heard. EXTREMITIES: Normal range of motion, no edema. No clubbing or cyanosis. Peripheral pulses intact. VITALS: Blood pressure 116/70, heart rate 70, temp 97.7F, SpO2 95% on 3 L nasal cannula, respiratory rate 22 TELEMETRY: Paced rhythm. Underlying atrial fibrillation. LABS: WBC 10.6, hemoglobin 8.9, hematocrit 31.5, platelet 134, INR 2.2, sodium 148, potassium 3.9, BUN 119, creatinine 2.4, AST 35, ALT 19 IMPRESSION: Mitral regurgitation, status post mitral valve replacement Tricuspid regurgitation, status post tricuspid valve repair Coronary artery disease, status post CABG 1 Persistent atrial fibrillation, on warfarin Sick sinus syndrome, status post permanent pacemaker Chronic kidney disease, baseline 3A Acute kidney injury, improving Anemia, secondary to blood loss PLAN: No changes in medication regimen from the cardiac standpoint Continue aggressive pulmonary hygiene Further recommendations will be based on clinical course I am dictating on behalf of Dr Edu Barajas's history/physical and assessment/plan. Objective - Vital Signs Vital signs: Vital Signs Temp 97.7 F 08/19/21 04:00 Pulse 70 08/19/21 07:26 Resp 29 H 08/19/21 06:00 BP 125/66 08/19/21 06:00 Pulse Ox 95 08/19/21 06:00 Intake & Output 08/18/21 08/19/21 08/19/21 18:59 06:59 18:59 Intake Total 725 Output Total 535 820 Balance 190 -820 Weight 71 kg Intake: IV 75 Sodium Chloride 0.9% 1, 75 000 ml @ 75 mls/hr IV . [id number] [facility] Rx#:[id number] Oral 650 Output: Drainage [address] 0 0 Right Posterior 0 0 Urine 535 820 Other: Voiding Method Indwelling Catheter Indwelling Catheter ABP, PAP, CO, CI - Last Documented Arterial Blood Pressure 119/35 Pulmonary Artery Pressure 35/28 Cardiac Output 5 Cardiac Index 2.7 - Labs CBC & Chem 7: 08/19/21 05:30 08/19/21 05:30 Labs: Abnormal Lab Results - Last 24 Hours (Table) 08/18/21 08/18/21 08/18/21 Range/Units 05:35 11:38 17:43 RBC (4.30-5.90) m/uL Hgb (13.0-17.5) gm/dL Hct (39.0-53.0) % MCV (80.0-100.0) fL MCHC (31.0-37.0) g/dL RDW (11.5-15.5) % Plt Count (150-450) k/uL Neutrophils # (1.3-7.7) k/uL Lymphocytes # (1.0-4.8) k/uL Macrocytosis PT (9.0-12.0) sec INR (<1.2) Sodium (137-145) mmol/L Chloride (98-107) mmol/L BUN (9-20) mg/dL Creatinine (0.66-1.25) mg/dL Glucose (74-99) mg/dL POC Glucose (mg/dL) 138 H 249 H (75-99) mg/dL Calcium (8.4-10.2) mg/dL Total Protein (6.3-8.2) g/dL Albumin (3.5-5.0) g/dL Prealbumin 12.3 L (18.0-42.0) mg/dL 08/18/21 08/19/21 08/19/21 Range/Units 20:16 05:30 05:30 RBC 2.87 L (4.30-5.90) m/uL Hgb 8.9 L (13.0-17.5) gm/dL Hct 31.5 L (39.0-53.0) % MCV 109.8 H (80.0-100.0) fL MCHC 28.3 L (31.0-37.0) g/dL RDW 21.2 H (11.5-15.5) % Plt Count 134 L (150-450) k/uL Neutrophils # 9.6 H (1.3-7.7) k/uL Lymphocytes # 0.2 L (1.0-4.8) k/uL Macrocytosis Marked A PT 22.2 H (9.0-12.0) sec INR 2.2 H (<1.2) Sodium (137-145) mmol/L Chloride (98-107) mmol/L BUN (9-20) mg/dL Creatinine (0.66-1.25) mg/dL Glucose (74-99) mg/dL POC Glucose (mg/dL) 270 H (75-99) mg/dL Calcium (8.4-10.2) mg/dL Total Protein (6.3-8.2) g/dL Albumin (3.5-5.0) g/dL Prealbumin (18.0-42.0) mg/dL 08/19/21 08/19/21 Range/Units 05:30 06:33 RBC (4.30-5.90) m/uL Hgb (13.0-17.5) gm/dL Hct (39.0-53.0) % MCV (80.0-100.0) fL MCHC (31.0-37.0) g/dL RDW (11.5-15.5) % Plt Count (150-450) k/uL Neutrophils # (1.3-7.7) k/uL Lymphocytes # (1.0-4.8) k/uL Macrocytosis PT (9.0-12.0) sec INR (<1.2) Sodium 148 H (137-145) mmol/L Chloride 114 H (98-107) mmol/L BUN 119 H* (9-20) mg/dL Creatinine 2.41 H (0.66-1.25) mg/dL Glucose 133 H (74-99) mg/dL POC Glucose (mg/dL) 162 H (75-99) mg/dL Calcium 8.3 L (8.4-10.2) mg/dL Total Protein 5.6 L (6.3-8.2) g/dL Albumin 2.8 L (3.5-5.0) g/dL Prealbumin (18.0-42.0) mg/dL
[2021-08-19] MEDS: TAMSULOSIN 0.4 MG CAP.ER.24H PO SCH (09:30)
[2021-08-19] MEDS: ASCORBIC ACID 500 MG TAB PO SCH (09:30)
[2021-08-19] MEDS: PANTOPRAZOLE 40 MG TABLET PO SCH (09:30)
[2021-08-19] MEDS: CHLORHEXIDINE GLUCONATE 15 ML CUP MUCOUS MEM SCH ×2 (09:31→20:03)
[2021-08-19] MEDS: SERTRALINE 100 MG TAB PO SCH (09:31)
[2021-08-19] MEDS: FERROUS SULFATE 325 MG TAB PO SCH (09:31)
[2021-08-19] MEDS: ASPIRIN 81 MG PO SCH (09:31)
[2021-08-19] MEDS: MEGESTROL 400 MG/10 ML CUP PO SCH (09:33)
[2021-08-19] MEDS: DEXTROSE 5% IN WATER 1,000 ML IV SCH ×2 (09:48→22:12)
--- NOTE | 2021-08-19 10:09 | P.PN ---
Subjective Progress Note Date: 08/19/21 The patient is seen today 08/12/2021 in follow-up in the intensive care unit. He is postoperative day #15 above mitral valve replacement, tricuspid valve repair and coronary artery bypass grafting times one. He had had issues with recurrent right-sided pleural effusion and is status post right-sided pigtail catheter in place. Proximal main 400 ML's of serosanguineous fluid drained overnight. Left-sided chest tube remains in place with an another 200 ML's of serosanguineous fluid drained. He is requiring 6 L of high flow nasal cannula to maintain O2 saturations in the 90s. Chest x-ray shows improvement in the pleural effusions. There is still bilateral opacities and some interstitial changes consistent with congestive heart failure. Moderate cardiomegaly. He is alert and oriented today. He still has complaints of a sore mouth. His appetite has been poor. Current cardiac rhythm is paced. Urine cultures revealed no growth. Blood cultures reveal no growth. Sputum culture from 10/2021 was positive for Klebsiella pneumoniae. White count 13.2. Hemoglobin 8.5. Platelets 261. Sodium 133. Potassium 4.8. Bicarb 21. BUN 119. Creatinine 2.80. Glucose 138. He is status post 2 units of packed red blood cells, 4 units of fresh frozen plasma and 2 units of platelets this admission. He is continued on nystatin swish and swallow, bronchodilators, heparin for DVT prophylaxis. Remains on Bumex. Currently in a -125 ML balance. Patient is seen today 08/13/2021 in follow-up in the intensive care unit. He is postoperative day #16. He is currently resting fairly comfortably in bed. He is requiring 10 L high flow nasal cannula to maintain O2 saturations in the low 90s. His bilateral chest tubes have been removed. This morning chest x-ray revealed loculated right costophrenic angle pneumothorax. Minimal right apical pneumothorax. Evidence of cardiomegaly with prominent pulmonary vascular congestion. Previous sputum had been positive for Klebsiella pneumoniae. White count 13.8. Hemoglobin 8.7. Platelets 242. INR 2.0. Sodium 134. Potassium 5.2. BUN 126. Creatinine 2.4. He is continued on DuoNeb inhalations, IV Bumex, antibiotics in the form of cefepime. He'll also be trialed on BiPAP 04/07 and titrate the FiO2. He is continued on Protonix for GI prophylaxis. His appetite has improved on a pured diet. He seems to tolerate that better. Less mouth discomfort. The patient is seen today 08/19/2021 in follow-up in intensive care unit. He is currently sitting up in a chair at the bedside. Awake and alert in no acute distress. Skin of the brain revealed chronic ischemic changes and scattered chronic infarcts. 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 No intracranial hemorrhage or gross acute cortical infarct. He is still maint aining O2 saturations in the 90s on 3 L/m per nasal cannula. He is pulling approximately 1000 ML's on his incentive spirometer. Chest x-ray continues to show diffuse increased lung markings in the right mid and lower lung field. Small right pleural effusion is present. Mild left basilar infiltrate. Pleurx catheter drained by CT services for 250 mL today. He is status post 2 units of packed red blood cells, 4 units of fresh frozen plasma, 2 units of platelets this admission. Sputum culture had been previously positive for Klebsiella pneumonia. White count 10.6. Hemoglobin 8.9. Platelets 134. INR 2.2. Sodium 148. Potassium 3.9. Chloride 114. Bicarb 26. BUN 119. Creatinine 2.41. Glucose 133. He continues to have poor oral intake. He continues to eat less than 50% of his meals. The plan is for possible PEG tube placement. He is continued on DuoNeb inhalations, Symbicort inhalations. Initiated back on his Zoloft. Objective - Vital Signs Vital signs: Vital Signs Temp 97.7 F 08/19/21 08:00 Pulse 79 08/19/21 09:00 Resp 22 08/19/21 09:00 BP 120/66 08/19/21 09:00 Pulse Ox 97 08/19/21 09:00 Intake & Output 08/18/21 08/19/21 08/19/21 18:59 06:59 18:59 Intake Total 725 Output Total 535 820 110 Balance 190 -820 -110 Weight 71 kg Intake: IV 75 Sodium Chloride 0.9% 1, 75 000 ml @ 75 mls/hr IV . [id number] [facility] Rx#:[id number] Oral 650 Output: Drainage [address] 0 0 Right Posterior 0 0 Urine 535 820 110 Other: Voiding Method Indwelling Catheter Indwelling Catheter ABP, PAP, CO, CI - Last Documented Arterial Blood Pressure 119/35 Pulmonary Artery Pressure 35/28 Cardiac Output 5 Cardiac Index 2.7 - Exam CONSTITUTIONAL: A very pleasant frail, cachectic 81-year-old male patient, sitting up to the bedside chair in the intensive care unit, comfortable, cooperative, no respiratory distress. Currently on 3 L high flow nasal cannula. HEENT: Neck is supple, no JVD, no lymphadenopathy. RESPIRATORY: Lungs sounds with bilateral scattered rhonchi, diminished bilateral bases, right greater than left. Respirations are symmetrical and nonlabored. Able to achieve more than 1000 MLS on the incentive spirometer. Bilateral chest tubes have been removed. Pleurx catheter remains in place on the right. CARDIOVASCULAR: Regular rhythm and rate. S1 and S2 present, negative for S3, gallop or murmur. Sternum is stable. Palpable peripheral pulses bilaterally. No calf pain or tenderness noted. Heart hugger in place with patient demonstrating appropriate use with encouragement. Knee-high SUMI hose and sequential compression devices in place to his bilateral lower extremities. Bedside telemetry showing paced rhythm at 60 BPM. GASTROINTESTINAL: Abdomen soft, nontender, distended. Active bowel sounds present 4 quadrants. Tolerating diet but poor appetite. No guarding or rigidity. GENITOURINARY: Continues to void. Urine output is adequate for now. INTEGUMENTARY: Skin is warm and dry with no evidence of clubbing or cyanosis. Midline sternal incision clean dry and well approximated, covered with dry i ntact dressing. Left lower extremity EVH site well approximated without redness or drainage. NEUROLOGIC: Cranial nerves II through XII intact. No focal deficits. MUSKULOSKELETAL: Able to move all extremities, strength equal bilaterally, generalized weakness. PSYCHIATRIC: Alert and oriented 3, appropriate affect. - Labs CBC & Chem 7: 08/19/21 05:30 08/19/21 05:30 Labs: Abnormal Lab Results - Last 24 Hours (Table) 08/18/21 08/18/21 08/18/21 Range/Units 11:38 17:43 20:16 RBC (4.30-5.90) m/uL Hgb (13.0-17.5) gm/dL Hct (39.0-53.0) % MCV (80.0-100.0) fL MCHC (31.0-37.0) g/dL RDW (11.5-15.5) % Plt Count (150-450) k/uL Neutrophils # (1.3-7.7) k/uL Lymphocytes # (1.0-4.8) k/uL Macrocytosis PT (9.0-12.0) sec INR (<1.2) Sodium (137-145) mmol/L Chloride (98-107) mmol/L BUN (9-20) mg/dL Creatinine (0.66-1.25) mg/dL Glucose (74-99) mg/dL POC Glucose (mg/dL) 138 H 249 H 270 H (75-99) mg/dL Calcium (8.4-10.2) mg/dL Total Protein (6.3-8.2) g/dL Albumin (3.5-5.0) g/dL 08/19/21 08/19/21 08/19/21 Range/Units 05:30 05:30 05:30 RBC 2.87 L (4.30-5.90) m/uL Hgb 8.9 L (13.0-17.5) gm/dL Hct 31.5 L (39.0-53.0) % MCV 109.8 H (80.0-100.0) fL MCHC 28.3 L (31.0-37.0) g/dL RDW 21.2 H (11.5-15.5) % Plt Count 134 L (150-450) k/uL Neutrophils # 9.6 H (1.3-7.7) k/uL Lymphocytes # 0.2 L (1.0-4.8) k/uL Macrocytosis Marked A PT 22.2 H (9.0-12.0) sec INR 2.2 H (<1.2) Sodium 148 H (137-145) mmol/L Chloride 114 H (98-107) mmol/L BUN 119 H* (9-20) mg/dL Creatinine 2.41 H (0.66-1.25) mg/dL Glucose 133 H (74-99) mg/dL POC Glucose (mg/dL) (75-99) mg/dL Calcium 8.3 L (8.4-10.2) mg/dL Total Protein 5.6 L (6.3-8.2) g/dL Albumin 2.8 L (3.5-5.0) g/dL 08/19/21 Range/Units 06:33 RBC (4.30-5.90) m/uL Hgb (13.0-17.5) gm/dL Hct (39.0-53.0) % MCV (80.0-100.0) fL MCHC (31.0-37.0) g/dL RDW (11.5-15.5) % Plt Count (150-450) k/uL Neutrophils # (1.3-7.7) k/uL Lymphocytes # (1.0-4.8) k/uL Macrocytosis PT (9.0-12.0) sec INR (<1.2) Sodium (137-145) mmol/L Chloride (98-107) mmol/L BUN (9-20) mg/dL Creatinine (0.66-1.25) mg/dL Glucose (74-99) mg/dL POC Glucose (mg/dL) 162 H (75-99) mg/dL Calcium (8.4-10.2) mg/dL Total Protein (6.3-8.2) g/dL Albumin (3.5-5.0) g/dL Assessment and Plan Assessment: 1 Mitral valve regurgitation, status post mitral valve replacement, tricuspid v alve regurgitation, status post tricuspid valve repair, coronary artery disease, status post 1 vessel CABG 2 Continued right-sided pleural effusion, pleural catheter in place 3 Poor oral intake, plan is for possible PEG tube placement 4 Benign essential hypertension 5 Chronic atrial fibrillation 6 History of sick sinus syndrome and previous pacemaker placement in 2017 7 Chronic systolic congestive heart failure 8 Atrial septal defect post closure 9 Acute on chronic renal failure, baseline creatinine 1.6-1.7. Creatinine 2.4 10 Obstructive sleep apnea syndrome 11 Chronic and recurrent right-sided pleural effusion requiring multiple thoracentesis procedures and now he continues to have a Pleurx catheter in place. 12 Postoperative acute blood loss anemia and thrombocytopenia, expected 13 Positive sputum for Klebsiella pneumonia, suspect Klebsiella pneumonia tracheobronchitis, completed cefepime Plan: The patient was seen and evaluated Chest x-ray and labs reviewed Currently on 3 L high flow nasal cannula Continues incentive spirometer, continued bronchodilators Oral intake remains poor, possible PEG tube placement Add D5W at 75 ML's per hour Continue to titrate his FiO2 as tolerated Increase his activity as tolerated We will continue to follow I have personally seen and examined the patient, performed the documentation and the assessment and plan as written. Number of minutes spent on the visit: 10.
--- NOTE | 2021-08-19 10:19 | P.PN ---
Subjective Progress Note Date: 08/19/21 Principal diagnosis: Mitral valve regurgitation, tricuspid valve regurgitation, and coronary artery disease. Past medical history significant for coronary artery disease with prev ious myocardial infarction and PCI, hypertension, hyperlipidemia, chronic persistent atrial fibrillation on Coumadin for anticoagulation as an outpatient, status post cardioversion, sick sinus syndrome, status post [facility] permanent pacemaker placement in 2016, chronic systolic heart failure, atrial septal defect status post closure, history of MitraClip in 2019, chronic renal insufficiency, remote history of tobacco dependence, restrictive lung disease, obstructive sleep apnea, recurrent right pleural effusions with history of 4 previous thoracentesis, remote history of pneumonia, history of prostate cancer with a PSA of 16.2 in May 2019 and a family history of premature coronary artery disease. Preoperative nasal screening positive for MSSA, treated. POD #22 mitral valve replacement with 31 mm Mosaic porcine valve prosthesis, tricuspid valve repair with 30 mm MC3 band, coronary artery bypass grafting 1 with reverse greater saphenous vein graft to the obtuse marginal coronary artery, endovascular vein harvest of the left greater saphenous vein, epi-aortic ultrasound, closure of the left atrial appendage, closure of atrial septal defect. Postoperative acute blood loss anemia and thrombocytopenia, expected given hemodilution and cardiopulmonary bypass pump. Coagulopathy, unexpected, resolved. Right pleural effusion, expected due to his history of preoperative right p leural effusion with history of 4 previous thoracentesis. Status post placement of right-sided pigtail catheter by interventional radiology, status post right sided Pleurx catheter placement. Leukocytosis, afebrile, sputum positive for Klebsiella pneumoniae. Altered mental status after surgery due to delirium from lack of sleep, resolved Urinary retention, unexpected requiring placement of Cortes catheter. The patient was seen and examined today 08/19/2021 at his bedside in the intensive care unit. He is currently sitting up to the bedside chair, is awake, alert, oriented 3 and is in no acute apparent distress. The patient denies any complaints of pain or shortness of breath at this time. He did state that he did have some shortness of breath with activity this morning with getting out of bed and into the chair. He is nothing by mouth for possible PEG tube placement today. Yesterday 08/18/2021 well walking with the patient in the intensive care unit hallway he became quite anxious and was refusing to walk any further. He continues to report that he has lack of appetite and feels tired. He remains hemodynamically stable and is currently on no inotropic support. Oxygen s aturations are 97% on 3 L nasal cannula and he is achieving 750-1000 mL on his incentive spirometry. Right Pleurx catheter remains in place and was draining this morning for 250 mL of thin serosanguineous drainage. Bedside telemetry showing AV paced rhythm heart rate 70 bpm. Laboratory and chest x-ray results reviewed. PT and INR were 22.2 and 2.2 this morning and his last dose of Coumadin was on 08/15/2021. He was evaluated by neurology yesterday for urinary retention, the patient has a history of prostate cancer. He remains on Flomax 0.4 mg by mouth daily and has a Cortes catheter in place. Objective - Vital Signs Vital signs: Vital Signs Temp 97.7 F 08/19/21 08:00 Pulse 79 08/19/21 09:00 Resp 22 08/19/21 09:00 BP 120/66 08/19/21 09:00 Pulse Ox 97 08/19/21 09:00 Intake & Output 08/18/21 08/19/21 08/19/21 18:59 06:59 18:59 Intake Total 725 Output Total 535 820 110 Balance 190 -820 -110 Weight 71 kg Intake: IV 75 Sodium Chloride 0.9% 1, 75 000 ml @ 75 mls/hr IV . [id number] [facility] Rx#:[id number] Oral 650 Output: Drainage [address] 0 0 Right Posterior 0 0 Urine 535 820 110 Other: Voiding Method Indwelling Catheter Indwelling Catheter ABP, PAP, CO, CI - Last Documented Arterial Blood Pressure 119/35 Pulmonary Artery Pressure 35/28 Cardiac Output 5 Cardiac Index 2.7 - Exam CONSTITUTIONAL: Sitting up to the bedside chair in the intensive care unit, appears comfortable with episodes of restlessness, cooperative, and is in no apparent acute distress. HEENT: Neck is supple, no JVD, no lymphadenopathy. RESPIRATORY: Lungs sounds with few scattered rhonchi throughout, diminished to his bilateral bases right greater than left, few scattered crackles to his right lower lobe. Respirations are symmetrical and nonlabored. Currently on 3 L nasal cannula, oxygen saturations 97%. Able to achieve 750-1000 mL on his incentive spirometry. Strong, loose cough. CARDIOVASCULAR: Regular rhythm and rate. S1 and S2 present, negative for S3, gallop or murmur. Sternum is stable. Palpable peripheral pulses bilaterally. No calf pain or tenderness noted. Heart hugger in place with patient demonstrating appropriate use with encouragement. Knee-high SUMI hose and sequential compression devices in place to his bilateral lower extremities. Bedside telemetry showing V paced rhythm heart rate 70 bpm. Trace edema to his bilateral lower extremities. GASTROINTESTINAL: Abdomen soft, nontender, and slightly distended. Active bowel sounds present 4 quadrants. Tolerating diet. No guarding or rigidity. Bowel movement 08/17/2021. GENITOURINARY: Cortes catheter in place for urinary retention. 570 mL of urine output last 8 hours. INTEGUMENTARY: Skin is warm and dry with no evidence of clubbing or cyanosis. Midline sternal incision clean dry and well approximated, covered with dry intact dressing. Left lower extremity EVH site well approximated without redness or drainage. Right sided Pleurx catheter intact with dressing dry, clean and intact. Small scattered ecchymotic areas to his bilateral cheeks to his face. NEUROLOGIC: Cranial nerves II through XII intact. No focal deficits. MUSKULOSKELETAL: Able to move all extremities, strength equal bilaterally, generalized weakness. PSYCHIATRIC: Alert and oriented 3, flat affect. Episodes of restlessness. INVASIVE LINES AND TUBES: Right sided Pleurx catheter. Right chest Pleurx catheter drain for 250 mL of thin serosanguineous drainage today 08/19/2021. - Allied health notes Allied health notes reviewed: nursing - Labs CBC & Chem 7: 08/19/21 05:30 08/19/21 05:30 Labs: Abnormal Lab Results - Last 24 Hours (Table) 08/18/21 08/18/21 08/18/21 Range/Units 11:38 17:43 20:16 RBC (4.30-5.90) m/uL Hgb (13.0-17.5) gm/dL Hct (39.0-53.0) % MCV (80.0-100.0) fL MCHC (31.0-37.0) g/dL RDW (11.5-15.5) % Plt Count (150-450) k/uL Neutrophils # (1.3-7.7) k/uL Lymphocytes # (1.0-4.8) k/uL Macrocytosis PT (9.0-12.0) sec INR (<1.2) Sodium (137-145) mmol/L Chloride (98-107) mmol/L BUN (9-20) mg/dL Creatinine (0.66-1.25) mg/dL Glucose (74-99) mg/dL POC Glucose (mg/dL) 138 H 249 H 270 H (75-99) mg/dL Calcium (8.4-10.2) mg/dL Total Protein (6.3-8.2) g/dL Albumin (3.5-5.0) g/dL 08/19/21 08/19/21 08/19/21 Range/Units 05:30 05:30 05:30 RBC 2.87 L (4.30-5.90) m/uL Hgb 8.9 L (13.0-17.5) gm/dL Hct 31.5 L (39.0-53.0) % MCV 109.8 H (80.0-100.0) fL MCHC 28.3 L (31.0-37.0) g/dL RDW 21.2 H (11.5-15.5) % Plt Count 134 L (150-450) k/uL Neutrophils # 9.6 H (1.3-7.7) k/uL Lymphocytes # 0.2 L (1.0-4.8) k/uL Macrocytosis Marked A PT 22.2 H (9.0-12.0) sec INR 2.2 H (<1.2) Sodium 148 H (137-145) mmol/L Chloride 114 H (98-107) mmol/L BUN 119 H* (9-20) mg/dL Creatinine 2.41 H (0.66-1.25) mg/dL Glucose 133 H (74-99) mg/dL POC Glucose (mg/dL) (75-99) mg/dL Calcium 8.3 L (8.4-10.2) mg/dL Total Protein 5.6 L (6.3-8.2) g/dL Albumin 2.8 L (3.5-5.0) g/dL 08/19/21 Range/Units 06:33 RBC (4.30-5.90) m/uL Hgb (13.0-17.5) gm/dL Hct (39.0-53.0) % MCV (80.0-100.0) fL MCHC (31.0-37.0) g/dL RDW (11.5-15.5) % Plt Count (150-450) k/uL Neutrophils # (1.3-7.7) k/uL Lymphocytes # (1.0-4.8) k/uL Macrocytosis PT (9.0-12.0) sec INR (<1.2) Sodium (137-145) mmol/L Chloride (98-107) mmol/L BUN (9-20) mg/dL Creatinine (0.66-1.25) mg/dL Glucose (74-99) mg/dL POC Glucose (mg/dL) 162 H (75-99) mg/dL Calcium (8.4-10.2) mg/dL Total Protein (6.3-8.2) g/dL Albumin (3.5-5.0) g/dL - Imaging and Cardiology Chest x-ray: report reviewed, image reviewed Assessment and Plan Assessment: 1. Mitral valve regurgitation, history of MitraClip in 2019, status post post mitral valve replacement 2. Tricuspid valve regurgitation, status post tricuspid valve repair 3. Coronary artery disease with previous myocardial infarction and PCI, status post 1 vessel CABG 4. History of hypertension, currently hypotensive on levo and dopamine 5. Chronic atrial fibrillation on Coumadin for anticoagulation status post cardioversion, status post closure of the left atrial appendage 6. Sick sinus syndrome status post [facility] permanent pacemaker placement in 2017 7. Chronic systolic heart failure 8. Atrial septal defect status post closure 9. Chronic kidney disease stage IIIB with a baseline creatinine of 1.6-1.7 10. Previous tobacco dependence 11. Severe restrictive lung disease, preoperative FEV1 47% of predicted 12. Recurrent right-sided pleural effusion, patient had right sided thoracentesis twice in 2019 and twice in 2020, status post right chest pigtail catheter placement by IR, status post right-sided Pleurx catheter placement 13. Obstructive sleep apnea, with home CPAP use 14. Remote history of pneumonia 15. Family history of premature coronary artery disease 16. Postoperative acute blood loss anemia and thrombocytopenia, expected 17. Coagulopathy, unexpected and resolved 18. Leukocytosis, elevated pro-calcitonin, sputum culture positive for Klebsiella pneumoniae 19. Acute kidney injury secondary to ATN, possibly secondary to hypotension 20. Urinary retention, unexpected 21. History of prostate cancer Plan: 1. Continue low-dose aspirin, and statin. 2. Continue to hold Coumadin today for possible PEG tube placement, continue to monitor daily PT/INR. INR today is 2.2. 3. Wean O2 as tolerated. Encourage incentive spirometry use 10 times every hour while awake. Bronchodilators per pulmonology. 4. Increase activity, ambulate minimum 4 times in the hallway daily. Out of bed for all meals. PT/OT/cardiac rehab following. 5. Will monitor daily labs and chest x-rays. 6. GI/DVT prophylaxis. 7. Insulin management per primary care service. The patient is not diabetic, preoperative hemoglobin A1c 5.8%. 8. Pain control per current medication regimen. Avoid narcotics due to history of delirium postoperatively. 9. Strict accurate intake and output. Daily weights. Continue Cortes catheter for urinary retention, urology consulted noted and appreciated. 10. Encourage oral intake, encourage supplements to improve nutrition. Continue chlorhexidine oral rinse twice a day, swish in all for 30 seconds and expel for complaints of a sore mouth. 11. Discharge planning in place, anticipate need for subacute facility with rehab. 12. Diuretic management per nephrology. Avoid nephrotoxic agents. 13. PEG tube placement pending. General surgery is following. 14. More recommendations to follow based on patient's clinical course. Time with Patient: Greater than 30
[2021-08-19] MEDS: MAG HYDROX/AL HYDROX/SIMETH 30 ML, LIDOCAINE VISCOUS 2% 30 ML, NYSTATIN 100,000 UNIT/ML... PO SCH ×9 (10:20→22:13)
[2021-08-19 11:10] LABS: Glucose,Whole Blood 192 mg/dL (75-99)
--- NOTE | 2021-08-19 11:48 | P.PN ---
Subjective Patient is seen for follow-up for acute kidney injury on top of chronic kidney disease. He is postop day #21 after mitral valve replacement, tricuspid valve repair and coronary artery bypass grafting 1. Patient is sitting up on a chair. His is present at bedside. No significant complaints 24 hour urine output of 1.8 L. Patient is scheduled for PEG tube placement tomorrow since he has not been eating much. Sodium was elevated today at 148 and patient has been started on D5W. BUN and creatinine are further improved today. Objective - Vital Signs Vital signs: Vital Signs Temp 97.7 F 08/19/21 08:00 Pulse 76 08/19/21 11:02 Resp 22 08/19/21 09:00 BP 120/66 08/19/21 09:00 Pulse Ox 97 08/19/21 09:00 Intake & Output 08/18/21 08/19/21 08/19/21 18:59 06:59 18:59 Intake Total 725 Output Total 535 820 110 Balance 190 -820 -110 Weight 71 kg Intake: IV 75 Sodium Chloride 0.9% 1, 75 000 ml @ 75 mls/hr IV . [id number] [facility] Rx#:[id number] Oral 650 Output: Drainage 0 [address] 0 0 0 Right Posterior 0 0 0 Urine 535 820 110 Other: Voiding Method Indwelling Catheter Indwelling Catheter Indwelling Catheter ABP, PAP, CO, CI - Last Documented Arterial Blood Pressure 119/35 Pulmonary Artery Pressure 35/28 Cardiac Output 5 Cardiac Index 2.7 - Exam Patient is awake comfortable. Not in any acute distress Examination of the heart S1 and S2 Examination lungs bilateral breath sounds heard, decreased breath sounds at the bases Abdomen is soft Examination lower extremity shows 1+ edema bilateral lower extremities improved from 10 days ago SILVER CHASER exam grossly intact - Labs CBC & Chem 7: 08/19/21 05:30 08/19/21 05:30 Labs: Abnormal Lab Results - Last 24 Hours (Table) 08/18/21 08/18/21 08/19/21 Range/Units 17:43 20:16 05:30 RBC 2.87 L (4.30-5.90) m/uL Hgb 8.9 L (13.0-17.5) gm/dL Hct 31.5 L (39.0-53.0) % MCV 109.8 H (80.0-100.0) fL MCHC 28.3 L (31.0-37.0) g/dL RDW 21.2 H (11.5-15.5) % Plt Count 134 L (150-450) k/uL Neutrophils # 9.6 H (1.3-7.7) k/uL Lymphocytes # 0.2 L (1.0-4.8) k/uL Macrocytosis Marked A PT (9.0-12.0) sec INR (<1.2) Sodium (137-145) mmol/L Chloride (98-107) mmol/L BUN (9-20) mg/dL Creatinine (0.66-1.25) mg/dL Glucose (74-99) mg/dL POC Glucose (mg/dL) 249 H 270 H (75-99) mg/dL Calcium (8.4-10.2) mg/dL Total Protein (6.3-8.2) g/dL Albumin (3.5-5.0) g/dL 08/19/21 08/19/21 08/19/21 Range/Units 05:30 05:30 06:33 RBC (4.30-5.90) m/uL Hgb (13.0-17.5) gm/dL Hct (39.0-53.0) % MCV (80.0-100.0) fL MCHC (31.0-37.0) g/dL RDW (11.5-15.5) % Plt Count (150-450) k/uL Neutrophils # (1.3-7.7) k/uL Lymphocytes # (1.0-4.8) k/uL Macrocytosis PT 22.2 H (9.0-12.0) sec INR 2.2 H (<1.2) Sodium 148 H (137-145) mmol/L Chloride 114 H (98-107) mmol/L BUN 119 H* (9-20) mg/dL Creatinine 2.41 H (0.66-1.25) mg/dL Glucose 133 H (74-99) mg/dL POC Glucose (mg/dL) 162 H (75-99) mg/dL Calcium 8.3 L (8.4-10.2) mg/dL Total Protein 5.6 L (6.3-8.2) g/dL Albumin 2.8 L (3.5-5.0) g/dL 08/19/21 Range/Units 11:09 RBC (4.30-5.90) m/uL Hgb (13.0-17.5) gm/dL Hct (39.0-53.0) % MCV (80.0-100.0) fL MCHC (31.0-37.0) g/dL RDW (11.5-15.5) % Plt Count (150-450) k/uL Neutrophils # (1.3-7.7) k/uL Lymphocytes # (1.0-4.8) k/uL Macrocytosis PT (9.0-12.0) sec INR (<1.2) Sodium (137-145) mmol/L Chloride (98-107) mmol/L BUN (9-20) mg/dL Creatinine (0.66-1.25) mg/dL Glucose (74-99) mg/dL POC Glucose (mg/dL) 192 H (75-99) mg/dL Calcium (8.4-10.2) mg/dL Total Protein (6.3-8.2) g/dL Albumin (3.5-5.0) g/dL Assessment and Plan Assessment: 1. Acute kidney injury, ATN associated with hemodynamic instability. Patient also has underlying urine retention, currently with indwelling Cortes catheter Urine output is maintained. Status post IV fluids over the weekend. Renal f unction continues to improve. 2. 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 Status post mitral valve replacement, tricuspid valve repair and coronary artery bypass surgery 1 4. Volume overload, status post diuresis 4. Metabolic acidosis associated with acute kidney injury currently improved 6. Acute blood loss anemia postop status post packed RBCs transfusion, currently maintained on Aranesp. Status post IV iron 7. CK D mineral bone disorder currently maintained on PhosLo 8. Hyponatremia associated with free water deficit, started on D5W. We will add free water with tube feedings once the PEG tube is placed Plan: Continue D5W Free water 100 mL every 4 hours once PEG tube is placed Repeat labs in a.m. Continue to avoid nephrotoxic agents
[2021-08-19] MEDS: FOLIC ACID 1 MG TAB PO SCH (12:12)
[2021-08-19] MEDS: THIAMINE 100 MG TAB PO SCH (12:12)
[2021-08-19] MEDS: MULTIVITAMINS, THERA 1 EACH TAB PO SCH (12:12)
--- NOTE | 2021-08-19 13:26 | P.CN ---
Psychiatric Consult - . Consult date: 08/19/21 Consult:: 08/19/21 11:49 IDENTIFYING DATA: This patient is a 81-year-old male, lives with in a house and has 2 kids. REASON FOR REFERRAL: Psychiatry was consulted for "depression" HISTORY OF PRESENT ILLNESS: The patient presented to the hospital on 07/28 and underwent a cardiovascular procedure including mitral valve replacement, tricuspid repair. Patient has extensive cardiovascular disease and history including previous myocardial infarction, hypertension, hyperlipidemia, chronic atrial fibrillation. Patient has been treated in the ICU for the past several weeks. Patient apparently is going for PEG tube placement. Apparently has poor appetite and fatigue and also anxiety according to EMR and progress notes. Patient is postop day #22. Patient has a BUN of 119 and creatinine of 2.41. Patient's was seen at the bedside and agreeable to stick the gag writer outside. She states the patient has been not motivated to do his walking around the ICU and claims that he was uncooperative yesterday and apparently threw himself to the ground, she also states that she has been complaining about not having strength. She states that appetite has been fairly poor. Patient was seen at the bedside and agreeable to speak to gag writer. She had poor eye contact however was attempting to cooperate. He states that he is not having depression and reports mild anxiety however mainly states that he wants to go home. He claims that he has been doing fairly well since the surgery 22 days ago. He states that he is trying to participate and walking however feels frustrated at staff and different nurses and staff members. He claims that "they're pushing me too much" and also claims that he has been defiant. He states that his sleep has been poor, poor appetite. At this time patient denies any suicidal or homical ideations, intent or plan. Patient denies any auditory, visual hallucinations and denies any paranoia or delusions. Patients admits to using and no recreational drugs or cigarettes. PAST PSYCHIATRIC HISTORY: Patient has a a history of depression. Patient is currently on Zoloft 100 mg daily. Patient denies any previous psychiatric hospitalizations. Patient denies any psychiatric outpatient follow-up. Patient denies any history of suicide attempts in the past. Past Medical History: Atrial Fibrillation, Coronary Artery Disease (CAD), Heart Failure, COPD, Hyperlipidemia, Hypertension, Myocardial Infarction ([place]), Osteoarthritis (OA), Pneumonia, Prostate Disorder, Renal Disease, Sleep Apnea/CPAP/BIPAP Additional Past Medical History / Comment(s): CPAP use, PSA elevated, CKD Stage 2-3, gout bilateral great toes. ALLERGIES: as per EMR. CHEMICAL DEPENDENCY HISTORY: as per HPI. FAMILY PSYCHIATRIC/SUBSTANCE USE HISTORY: denies SOCIAL HISTORY: Patient was born and raised in [place]. 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 He claims that he completed high school and did some college. Denies any legal history. He currently lives with his in a house and has 2 kids. MENTAL STATUS EXAM: General Appearance: Patient appears to be stated age is alert, pleasant, and cooperative. Patient appears to have fair hygiene and grooming wearing hospital gown with poor eye contact. Behavior: Patient is calmly lying in bed without any agitated behavior. Frustrated at times. Speech: Patient's speech is fluent and nonpressured. Mood/Affect: Patient reports their mood is "fine", affect is congruent Suicidality/Homicidality: Patient denies having any suicidal or homicidal ideation intent or plan. Perceptions: Patient denies any visual hallucinations and denies any auditory hallucinations Though content/process: There is no evidence of any delusional thought content and thought process is linear and goal-directed. [place]. Memory and concentration: AOX3, grossly intact for the purposes of this session. Can spell "WORLD" backwards Judgment and insight: limited IMPRESSIONS: Depressive disorder unspecified, rule out adjustment disorder versus major depressive disorder PLAN: -At this time patient DOES NOT meet criteria for inpatient psychiatric admission. -Delirium precautions recommended with patient including - avoiding use of narcotics and EMERGENCY ROOM DOCTOR sedatives, limit anticholinergic medications when possible, frequent re-orientation, minimize use of restraints, open window shades during the day and close them at night -Would recommend the following medication changes/additions: Added Remeron 15 mg daily at bedtime for sleep/mood/appetite. Continue with Zoloft 100 mg daily for mood/anxiety. -sub assembly team worker to provide patient with outpatient mental health/psychiatry resources for appropriate follow up upon discharge -Communicated plan to patient's nurse and patients -Will continue to follow along -Please contact with any questions. 08/19/21 13:21
--- NOTE | 2021-08-19 13:33 | P.PN ---
Subjective Progress Note Date: 08/19/21 Principal diagnosis: Malnutrition Patient sitting up in a chair with his present. He is eating small amounts of his lunch at this time. Patient and family are agreeable to proceeding with PEG tube placement given the lack of oral intake. INR remains elevated today however. Objective - Vital Signs Vital signs: Vital Signs Temp 97.7 F 08/19/21 08:00 Pulse 76 08/19/21 11:02 Resp 29 H 08/19/21 11:00 BP 96/74 08/19/21 11:00 Pulse Ox 100 08/19/21 11:00 Intake & Output 08/18/21 08/19/21 08/19/21 18:59 06:59 18:59 Intake Total 725 Output Total 535 820 185 Balance 190 -820 -185 Weight 71 kg Intake: IV 75 Sodium Chloride 0.9% 1, 75 000 ml @ 75 mls/hr IV . [id number] [facility] Rx#:[id number] Oral 650 Output: Drainage 0 [address] 0 0 0 Right Posterior 0 0 0 Urine 535 820 185 Other: Voiding Method Indwelling Catheter Indwelling Catheter Indwelling Catheter ABP, PAP, CO, CI - Last Documented Arterial Blood Pressure 119/35 Pulmonary Artery Pressure 35/28 Cardiac Output 5 Cardiac Index 2.7 - Exam Abdomen: Soft, nontender, nondistended - Labs CBC & Chem 7: 08/19/21 05:30 08/19/21 05:30 Labs: Abnormal Lab Results - Last 24 Hours (Table) 08/18/21 08/18/21 08/19/21 Range/Units 17:43 20:16 05:30 RBC 2.87 L (4.30-5.90) m/uL Hgb 8.9 L (13.0-17.5) gm/dL Hct 31.5 L (39.0-53.0) % MCV 109.8 H (80.0-100.0) fL MCHC 28.3 L (31.0-37.0) g/dL RDW 21.2 H (11.5-15.5) % Plt Count 134 L (150-450) k/uL Neutrophils # 9.6 H (1.3-7.7) k/uL Lymphocytes # 0.2 L (1.0-4.8) k/uL Macrocytosis Marked A PT (9.0-12.0) sec INR (<1.2) Sodium (137-145) mmol/L Chloride (98-107) mmol/L BUN (9-20) mg/dL Creatinine (0.66-1.25) mg/dL Glucose (74-99) mg/dL POC Glucose (mg/dL) 249 H 270 H (75-99) mg/dL Calcium (8.4-10.2) mg/dL Total Protein (6.3-8.2) g/dL Albumin (3.5-5.0) g/dL 08/19/21 08/19/21 08/19/21 Range/Units 05:30 05:30 06:33 RBC (4.30-5.90) m/uL Hgb (13.0-17.5) gm/dL Hct (39.0-53.0) % MCV (80.0-100.0) fL MCHC (31.0-37.0) g/dL RDW (11.5-15.5) % Plt Count (150-450) k/uL Neutrophils # (1.3-7.7) k/uL Lymphocytes # (1.0-4.8) k/uL Macrocytosis PT 22.2 H (9.0-12.0) sec INR 2.2 H (<1.2) Sodium 148 H (137-145) mmol/L Chloride 114 H (98-107) mmol/L BUN 119 H* (9-20) mg/dL Creatinine 2.41 H (0.66-1.25) mg/dL Glucose 133 H (74-99) mg/dL POC Glucose (mg/dL) 162 H (75-99) mg/dL Calcium 8.3 L (8.4-10.2) mg/dL Total Protein 5.6 L (6.3-8.2) g/dL Albumin 2.8 L (3.5-5.0) g/dL 08/19/21 Range/Units 11:09 RBC (4.30-5.90) m/uL Hgb (13.0-17.5) gm/dL Hct (39.0-53.0) % MCV (80.0-100.0) fL MCHC (31.0-37.0) g/dL RDW (11.5-15.5) % Plt Count (150-450) k/uL Neutrophils # (1.3-7.7) k/uL Lymphocytes # (1.0-4.8) k/uL Macrocytosis PT (9.0-12.0) sec INR (<1.2) Sodium (137-145) mmol/L Chloride (98-107) mmol/L BUN (9-20) mg/dL Creatinine (0.66-1.25) mg/dL Glucose (74-99) mg/dL POC Glucose (mg/dL) 192 H (75-99) mg/dL Calcium (8.4-10.2) mg/dL Total Protein (6.3-8.2) g/dL Albumin (3.5-5.0) g/dL Assessment and Plan (1) Malnutrition of moderate degree Narrative/Plan: A 1-year-old male with malnutrition and poor oral intake. We'll proceed with PEG tube placement once INR an appropriate range. We'll reevaluate tomorrow. Current Visit: Yes Status: Acute Code(s): E44.0 - MODERATE PROTEIN-CALORIE MALNUTRITION SNOMED Code(s): 356714090
--- NOTE | 2021-08-19 14:21 | PN ---
PROGRESS NOTE DATE OF SERVICE: 08/19/2021 HISTORY OF PRESENT ILLNESS: This 81-year-old gentleman who was admitted after mitral valve replacement and cardiac surgery was confused. The patient has complaints of weakness also. CT scan of the brain showed some multiple strokes in the cortical as well as the right cerebellar area, possibly subacute or chronic. Neurology evaluation is in progress as well as neurovascular workup. Past medical history reviewed. Review of systems could not be taken; the patient is slightly confused. CURRENT MEDICATIONS: Reviewed. They include Tylenol, DuoNeb. Doses and other medications are reviewed. PHYSICAL EXAMINATION: Pulse is 78, blood pressure 96/74, respiratory rate 29. HEENT: Conjunctivae normal. NECK: No jugular venous distention. CARDIOVASCULAR: S1, S2 muffled. RESPIRATION: Breath sounds diminished at the bases. A few scattered rhonchi and crackles. ABDOMEN: Soft, nontender. NERVOUS SYSTEM: Diffusely weak. LABS: Hemoglobin 8.9. Other labs are noted. Sodium 148. ASSESSMENT: 1. Status post mitral valve replacement, tricuspid valve repair and single-vessel graft. 2. Right pleural effusion. 3. Chronic obstructive pulmonary disease. 4. Multiple strokes, cortical and cerebellar, possibly subacute to chronic. 5. Renal insufficiency. 6. Klebsiella pneumoniae. 7. Hypoglycemia. 8. Gait dysfunction. 9. Poor nutrition. RECOMMENDATIONS AND DISCUSSION: I recommend to continue current medications, continue with the monitoring, symptomatic treatment. PT/OT evaluation. Otherwise, closely monitor. Neurology evaluation. See orders for further details. Further recommendations to follow. MMPEÑAL / WHITN: [id number] /
--- NOTE | 2021-08-19 15:45 | P.CNNES ---
History of Present Illness Consult date: 08/19/21 Requesting physician: Atul Folrez Reason for Consult: Old stroke? History of Present Illness: Patient is a 81-year-old male with medical history of mitral valve regurgitation, tricuspid valve regurgitation, coronary artery disease, history of cardiac stenting, hypertension, chronic atrial fibrillation on Coumadin, perm anent pacemaker placement in 2017, chronic systolic heart failure, ASD status post closure, restrictive lung disease, obstructive sleep apnea came to the hospital on 07/29/2021 and underwent mitral valve replacement with pocrine valve prosthesis, tricuspid valve repair, coronary artery bypass grafting 1 with reverse saphenous vein graft to obtuse marginal artery. Patient was doing well postoperatively, getting better. However in the last few days he started to get more withdrawn, appeared just overwhelmed by everything. He did not want to eat, did not want to do anything, did not want to walk and everything was too much for him. Patient underwent computed tomography scan of the head yesterday on 08/18/2021, which revealed brain volume loss changes, chronic ischemic changes and scattered chronic infarcts. Suspected right inferior cerebellar infarct, not well appreciated previously, please correlate clinically. No intracranial hemorrhage or other gross acute cortical infarct. Further MRI assessment can be considered if clinically required. I reviewed patient's current computed tomography scan of the head and the one from 05/04/2016. The left parietal ischemic lesion is chronic, and was present in the previous computed tomography scan. Small hypodensity in the left occipital region is also chronic present in the previous computed tomography scan. The small wedge-shaped hypodensity in the right cerebellum, possibly could be artifactual, less likely subacute ischemia, as this was not present in the previous CT scans. Patient's was also present today, who states the patient had no slurred speech, facial droop or any strokelike symptoms. No visual symptoms. He just did not want to talk. However what ever he talked, was very clear. Patient has been very fit physically as well as mentally prior to this surgery. He always makes decision for finances as well. No history of diabetes. Patient does have hypertension for long time, hyperlipidemia. He smoked 1 pack per day for 10 years, quit age 30. Patient's blood test shows normal WBC 10.6 hemoglobin 8.9, platelets 134. INR is 2.2 sodium 148 potassium 3.9, BUN is 119, creatinine 2.41. Hepatic panel is normal. Patient's previous rheumatoid factor, CCP, KARYNA, Pulliam antibodies, dsDNA from 09/29/2018 are all normal or negative. Patient has not been able to swallow enough nutrition's. He is being planned for possible PEG placement tomorrow. Review of Systems Patient denies headache, dizziness, no nausea vomiting diarrhea. No slurred speech, no visual symptoms. Generalized weakness. Postoperative pain. No fever or chills. No rash. All other review of systems were reviewed and noncontributory. Patient does have some painful swallowing in the recent past. Past Medical History Past Medical History: Atrial Fibrillation, Coronary Artery Disease (CAD), Heart Failure, COPD, Hyperlipidemia, Hypertension, Myocardial Infarction ([place]), Osteoarthritis (OA), Pneumonia, Prostate Disorder, Renal Disease, Sleep Apnea/CPAP/BIPAP Additional Past Medical History / Comment(s): CPAP use, PSA elevated, CKD Stage 2-3, gout bilateral great toes. Last Myocardial Infarction Date:: 2001 History of Any Multi-Drug Resistant Organisms: None Reported Past Surgical History: Appendectomy, Heart Catheterization, Heart Catheterization With Stent, Orthopedic Surgery, Pacemaker Additional Past Surgical History / Comment(s): PCI with stents, pacemaker, percutaneous closure of ASD/PFO, multiple AVIVA, colonoscopy with benign polyps, R hand surgery for dupuytren's and injections to L hand for the same, ORIF R elbow and wrist as child. Past Anesthesia/Blood Transfusion Reactions: No Reported Reaction Additional Past Anesthesia/Blood Transfusion Reaction / Comment(s): Pt has clausterphobia Date of Last Stent Placement:: 10/2012 Type of Cardiac Device: Permanent Pacemaker Device Placement Date:: 2016 Past Psychological History: No Psychological Hx Reported Smoking Status: Former smoker Past Alcohol Use History: Heavy Additional Past Alcohol Use History / Comment(s): Started smoking in 1 and quit in 1974. Hx of being a heavy drinker but quit about 2006. Very rare drink now, once a year. Past Drug Use History: None Reported - Past Family History Father Additional Family Medical History / Comment(s): Father had heart problems. Mother Family Medical History: AFIB Additional Family Medical History / Comment(s): Mother had heart problems. Sister(s) Family Medical History: Cancer Additional Family Medical History / Comment(s): One sister with breast cancer and another had a pacemaker. Medications and Allergies Home Medications Medication Instructions Recorded Confirmed Type Atorvastatin [Lipitor] 40 mg PO HS 07/21/14 07/25/21 History amLODIPine BESYLATE [Norvasc] 10 mg PO HS #30 tablet 05/06/16 07/25/21 Rx Clopidogrel Bisulfate [Plavix] 75 mg PO QAM 06/25/20 07/25/21 History Allopurinol [Zyloprim] 150 mg PO QAM 06/17/21 07/25/21 History Bumetanide [BUMEX] 1 mg PO QAM 06/17/21 07/25/21 History Bumetanide [Bumex] 3 mg PO HS 06/17/21 07/25/21 History Isosorbide Mononitrate ER [Imdur] 60 mg PO QAM 06/17/21 07/25/21 History Losartan Potassium 50 mg PO QAM 06/17/21 07/25/21 History Potassium Chloride [Klor-Con 20 20 meq PO BID 06/17/21 07/25/21 History Packets] Warfarin [Coumadin] 1 mg PO HS 06/17/21 07/25/21 History Ascorbic Acid [Vitamin C] 1,000 mg PO QAM 07/22/21 07/25/21 History Calcium Acetate 667 mg PO HS 07/22/21 07/25/21 History Ergocalciferol [Vitamin D2 (1250 1,250 mcg PO Q30D 07/22/21 07/25/21 History Mcg = [id number] Iu)] Ferrous Sulfate [Iron] 325 mg PO QAM 07/22/21 07/25/21 History Folic Acid 0.4 mg PO QAM 07/22/21 07/25/21 History Loratadine [Claritin] 10 mg PO QAM 07/22/21 07/25/21 History Mupirocin [Mupirocin 2%] 1 applic NASAL BID #1 tub 07/24/21 07/25/21 Rx Aspirin 325 mg PO DAILY 07/28/21 07/28/21 History Allergies Allergy/AdvReac Type Severity Reaction Status Date / Time furosemide [From Lasix] Allergy Swelling Verified 07/28/21 06:08 Physical Examination - Vital Signs Vital Signs: Vital Signs Temp Pulse Resp BP Pulse Ox 08/19/21 11:02 76 08/19/21 11:00 78 29 H 96/74 100 04/19/22 10:50 75 08/19/21 10:00 75 29 H 117/57 95 08/19/21 09:00 79 22 120/66 97 08/19/21 08:00 97.7 F 70 25 H 116/70 95 08/19/21 07:26 70 08/19/21 07:12 72 08/19/21 07:00 70 31 H 125/66 94 L 08/19/21 06:00 83 29 H 125/66 95 08/19/21 05:00 70 17 119/65 96 08/19/21 04:00 97.7 F 70 22 121/62 95 08/19/21 03:00 70 19 107/60 94 L 08/19/21 02:00 70 27 H 111/62 100 08/19/21 01:00 72 32 H 115/64 99 08/19/21 00:00 98.0 F 70 26 H 118/65 95 08/18/21 23:00 75 23 93/61 95 08/18/21 22:29 71 35 H 94 L 08/18/21 22:00 70 22 113/64 95 08/18/21 21:00 70 17 114/61 95 08/18/21 20:00 97.5 F L 70 21 122/67 94 L 08/18/21 19:22 72 08/18/21 19:12 74 08/18/21 19:00 70 19 94/66 94 L 08/18/21 18:00 72 24 103/74 96 08/18/21 17:00 70 17 90/69 96 08/18/21 16:00 97.9 F 72 27 H 98/65 95 08/18/21 15:48 80 08/18/21 15:34 78 08/18/21 15:00 78 22 130/65 90 L 08/18/21 14:00 70 18 118/71 90 L Intake and Output 08/18/21 08/19/21 08/19/21 22:59 06:59 14:59 Intake Total 200 Output Total 430 570 185 Balance -230 570 -185 Intake: Oral 200 Output: Drainage 0 [address] 0 0 0 Right Posterior 0 0 0 Urine 430 570 185 Other: Voiding Method Indwelling Catheter Indwelling Catheter Indwelling Catheter Patient is an elderly male, appears in no obvious distress, although appears frail, tired, exhausted. He is still very pleasant. Patient is alert awake oriented to time place and person. He knows it is August and the year is 22 and that is in [facility] and name of the current president. Speech and language functions are normal. Patient can name and repeat very well. Attention, concentration is diminished and fund of knowledge is adequate. On cranial examination, pupils are equal, round and reacting to light, visual sousa are full on confrontation, extraocular muscles are intact with no nystagmus. Face is symmetric, tongue protrudes to the midline. Palatal elevation and sensation normal could not be assessed because of his noncooperation, hearing appears grossly intact for conversation, may be slightly decreased. And shoulder shrug normal, facial sensation normal. Shoulder shrug normal. On muscle strength testing, there is no pronator drift and the strength is normal in arms and legs distally and proximally. Deep tendon reflexes are hypoactive and plantars are questionably up bilaterally. Sensory to touch is equal with no neglect. Cerebellar function showed no ataxia for [id number] testing. Tone and bulk of muscles normal. Patient has significant myoclonic jerks and tremor of outstretched hands, and also present at rest with shoulder jerkings. Gait patient walks with 1-2 assist (therapist) with a walker. On general examination, there is no carotid bruit or murmur, S1-S2 audible. Abdomen is soft nontender. Bowel sounds present. No organomegaly. Chest is clear. Some rhonchi present. Patient has peripheral edema. Results - Laboratory Findings CBC and BMP: 08/19/21 05:30 08/19/21 05:30 Abnormal Lab Findings: Abnormal Labs 07/22/21 07/28/21 07/28/21 08:58 06:30 08:36 WBC RBC Hgb Hct MCV MCHC RDW Plt Count Neutrophils # Neutrophils # (Manual) Lymphocytes # Lymphocytes # (Manual) Monocytes # (Manual) Nucleated RBCs Macrocytosis PT 19.5 H INR 1.9 H APTT Fibrinogen ABG pH ABG pCO2 34 L ABG pO2 131 H ABG HCO3 ABG Total CO2 ABG O2 Saturation 99.4 H ABG Hematocrit 33 L ABG Ionized Calcium Hemoglobin 10.7 L Sodium Potassium Chloride Carbon Dioxide BUN Creatinine Glucose POC Glucose (mg/dL) Calcium Phosphorus Magnesium Iron TIBC % Saturation Transferrin Total Bilirubin AST Alkaline Phosphatase Total Protein Albumin Prealbumin Amylase Lipase Procalcitonin Urine Protein Urine Blood Ur Leukocyte Esterase Urine RBC Urine WBC Amorphous Sediment Urine Bacteria Hyaline Casts Urine Mucus Crossmatch See Detail 07/28/21 07/28/21 07/28/21 09:02 10:10 10:40 WBC RBC Hgb Hct MCV MCHC RDW Plt Count Neutrophils # Neutrophils # (Manual) Lymphocytes # Lymphocytes # (Manual) Monocytes # (Manual) Nucleated RBCs Macrocytosis PT INR APTT Fibrinogen ABG pH 7.32 L ABG pCO2 ABG pO2 145 H 379 H 276 H ABG HCO3 ABG Total CO2 ABG O2 Saturation 99.3 H 100.0 H 100.0 H ABG Hematocrit 31 L 25 L 25 L ABG Ionized Calcium 4.4 L 4.4 L Hemoglobin 10.2 L 8.2 L 8.3 L Sodium Potassium Chloride Carbon Dioxide BUN Creatinine Glucose POC Glucose (mg/dL) Calcium Phosphorus Magnesium Iron TIBC % Saturation Transferrin Total Bilirubin AST Alkaline Phosphatase Total Protein Albumin Prealbumin Amylase Lipase Procalcitonin Urine Protein Urine Blood Ur Leukocyte Esterase Urine RBC Urine WBC Amorphous Sediment Urine Bacteria Hyaline Casts Urine Mucus Crossmatch 07/28/21 07/28/21 07/28/21 11:06 11:47 12:53 WBC RBC Hgb Hct MCV MCHC RDW Plt Count Neutrophils # Neutrophils # (Manual) Lymphocytes # Lymphocytes # (Manual) Monocytes # (Manual) Nucleated RBCs Macrocytosis PT INR APTT Fibrinogen ABG pH ABG pCO2 ABG pO2 372 H 370 H ABG HCO3 ABG Total CO2 25 H ABG O2 Saturation 100.0 H 100.0 H 97.8 H ABG Hematocrit 23 L 24 L 28 L ABG Ionized Calcium 4.4 L 4.2 L 4.4 L Hemoglobin 7.5 L 7.7 L 9.1 L Sodium Potassium Chloride Carbon Dioxide BUN Creatinine Glucose POC Glucose (mg/dL) Calcium Phosphorus Magnesium Iron TIBC % Saturation Transferrin Total Bilirubin AST Alkaline Phosphatase Total Protein Albumin Prealbumin Amylase Lipase Procalcitonin Urine Protein Urine Blood Ur Leukocyte Esterase Urine RBC Urine WBC Amorphous Sediment Urine Bacteria Hyaline Casts Urine Mucus Crossmatch 07/28/21 07/28/21 07/28/21 14:04 14:04 14:04 WBC RBC 2.49 L Hgb 7.9 L Hct 24.2 L MCV MCHC RDW Plt Count 103 L Neutrophils # 8.0 H Neutrophils # (Manual) Lymphocytes # 0.5 L Lymphocytes # (Manual) Monocytes # (Manual) Nucleated RBCs Macrocytosis PT 18.7 H INR 1.9 H APTT 50.6 H Fibrinogen 199 L ABG pH ABG pCO2 ABG pO2 ABG HCO3 ABG Total CO2 ABG O2 Saturation ABG Hematocrit ABG Ionized Calcium Hemoglobin Sodium Potassium Chloride 111 H Carbon Dioxide BUN 40 H Creatinine Glucose POC Glucose (mg/dL) Calcium 8.0 L Phosphorus Magnesium 4.2 H Iron TIBC % Saturation Transferrin Total Bilirubin AST Alkaline Phosphatase 32 L Total Protein 4.5 L Albumin 2.7 L Prealbumin Amylase Lipase Procalcitonin Urine Protein Urine Blood Ur Leukocyte Esterase Urine RBC Urine WBC Amorphous Sediment Urine Bacteria Hyaline Casts Urine Mucus Crossmatch 07/28/21 07/28/21 07/28/21 14:24 15:30 17:12 WBC RBC 2.20 L Hgb 6.9 L* Hct 21.4 L MCV MCHC RDW Plt Count 70 L Neutrophils # Neutrophils # (Manual) Lymphocytes # 0.5 L Lymphocytes # (Manual) Monocytes # (Manual) Nucleated RBCs Macrocytosis PT INR APTT Fibrinogen ABG pH 7.34 L ABG pCO2 ABG pO2 136 H ABG HCO3 ABG Total CO2 25 H ABG O2 Saturation 99.2 H ABG Hematocrit ABG Ionized Calcium Hemoglobin Sodium Potassium Chloride Carbon Dioxide BUN Creatinine Glucose POC Glucose (mg/dL) 104 H Calcium Phosphorus Magnesium Iron TIBC % Saturation Transferrin Total Bilirubin AST Alkaline Phosphatase Total Protein Albumin Prealbumin Amylase Lipase Procalcitonin Urine Protein Urine Blood Ur Leukocyte Esterase Urine RBC Urine WBC Amorphous Sediment Urine Bacteria Hyaline Casts Urine Mucus Crossmatch 07/28/21 07/28/21 07/28/21 18:05 18:07 18:16 WBC RBC Hgb Hct MCV MCHC RDW Plt Count Neutrophils # Neutrophils # (Manual) Lymphocytes # Lymphocytes # (Manual) Monocytes # (Manual) Nucleated RBCs Macrocytosis PT INR APTT Fibrinogen ABG pH 7.30 L 7.34 L ABG pCO2 48 H ABG pO2 73 L 81 L ABG HCO3 ABG Total CO2 25 H ABG O2 Saturation ABG Hematocrit ABG Ionized Calcium Hemoglobin Sodium Potassium Chloride Carbon Dioxide BUN Creatinine Glucose POC Glucose (mg/dL) 111 H Calcium Phosphorus Magnesium Iron TIBC % Saturation Transferrin Total Bilirubin AST Alkaline Phosphatase Total Protein Albumin Prealbumin Amylase Lipase Procalcitonin Urine Protein Urine Blood Ur Leukocyte Esterase Urine RBC Urine WBC Amorphous Sediment Urine Bacteria Hyaline Casts Urine Mucus Crossmatch 07/28/21 07/28/21 07/28/21 19:01 19:49 20:00 WBC RBC 2.64 L Hgb 8.1 L Hct 25.5 L MCV MCHC RDW Plt Count 85 L Neutrophils # Neutrophils # (Manual) Lymphocytes # 0.4 L Lymphocytes # (Manual) Monocytes # (Manual) Nucleated RBCs Macrocytosis PT INR APTT Fibrinogen ABG pH ABG pCO2 ABG pO2 ABG HCO3 ABG Total CO2 ABG O2 Saturation ABG Hematocrit ABG Ionized Calcium Hemoglobin Sodium Potassium Chloride Carbon Dioxide BUN Creatinine Glucose POC Glucose (mg/dL) 114 H 117 H Calcium Phosphorus Magnesium Iron TIBC % Saturation Transferrin Total Bilirubin AST Alkaline Phosphatase Total Protein Albumin Prealbumin Amylase Lipase Procalcitonin Urine Protein Urine Blood Ur Leukocyte Esterase Urine RBC Urine WBC Amorphous Sediment Urine Bacteria Hyaline Casts Urine Mucus Crossmatch 07/28/21 07/28/21 07/28/21 20:55 22:04 22:58 WBC RBC Hgb Hct MCV MCHC RDW Plt Count Neutrophils # Neutrophils # (Manual) Lymphocytes # Lymphocytes # (Manual) Monocytes # (Manual) Nucleated RBCs Macrocytosis PT INR APTT Fibrinogen ABG pH ABG pCO2 ABG pO2 ABG HCO3 ABG Total CO2 ABG O2 Saturation ABG Hematocrit ABG Ionized Calcium Hemoglobin Sodium Potassium Chloride Carbon Dioxide BUN Creatinine Glucose POC Glucose (mg/dL) 115 H 128 H 123 H Calcium Phosphorus Magnesium Iron TIBC % Saturation Transferrin Total Bilirubin AST Alkaline Phosphatase Total Protein Albumin Prealbumin Amylase Lipase Procalcitonin Urine Protein Urine Blood Ur Leukocyte Esterase Urine RBC Urine WBC Amorphous Sediment Urine Bacteria Hyaline Casts Urine Mucus Crossmatch 07/28/21 07/29/21 07/29/21 23:58 00:57 01:55 WBC RBC Hgb Hct MCV MCHC RDW Plt Count Neutrophils # Neutrophils # (Manual) Lymphocytes # Lymphocytes # (Manual) Monocytes # (Manual) Nucleated RBCs Macrocytosis PT INR APTT Fibrinogen ABG pH ABG pCO2 ABG pO2 ABG HCO3 ABG Total CO2 ABG O2 Saturation ABG Hematocrit ABG Ionized Calcium Hemoglobin Sodium Potassium Chloride Carbon Dioxide BUN Creatinine Glucose POC Glucose (mg/dL) 131 H 110 H 136 H Calcium Phosphorus Magnesium Iron TIBC % Saturation Transferrin Total Bilirubin AST Alkaline Phosphatase Total Protein Albumin Prealbumin Amylase Lipase Procalcitonin Urine Protein Urine Blood Ur Leukocyte Esterase Urine RBC Urine WBC Amorphous Sediment Urine Bacteria Hyaline Casts Urine Mucus Crossmatch 07/29/21 07/29/21 07/29/21 02:57 04:17 04:26 WBC RBC 2.48 L Hgb 7.5 L Hct 23.9 L MCV MCHC RDW Plt Count 80 L Neutrophils # 8.3 H Neutrophils # (Manual) Lymphocytes # 0.3 L Lymphocytes # (Manual) Monocytes # (Manual) Nucleated RBCs Macrocytosis PT INR APTT Fibrinogen ABG pH ABG pCO2 ABG pO2 ABG HCO3 ABG Total CO2 ABG O2 Saturation ABG Hematocrit ABG Ionized Calcium Hemoglobin Sodium Potassium Chloride Carbon Dioxide BUN Creatinine Glucose POC Glucose (mg/dL) 123 H 123 H Calcium Phosphorus Magnesium Iron TIBC % Saturation Transferrin Total Bilirubin AST Alkaline Phosphatase Total Protein Albumin Prealbumin Amylase Lipase Procalcitonin Urine Protein Urine Blood Ur Leukocyte Esterase Urine RBC Urine WBC Amorphous Sediment Urine Bacteria Hyaline Casts Urine Mucus Crossmatch 07/29/21 07/29/21 07/29/21 04:26 05:09 05:57 WBC RBC Hgb Hct MCV MCHC RDW Plt Count Neutrophils # Neutrophils # (Manual) Lymphocytes # Lymphocytes # (Manual) Monocytes # (Manual) Nucleated RBCs Macrocytosis PT INR APTT Fibrinogen ABG pH ABG pCO2 ABG pO2 ABG HCO3 ABG Total CO2 ABG O2 Saturation ABG Hematocrit ABG Ionized Calcium Hemoglobin Sodium Potassium Chloride 113 H Carbon Dioxide BUN 37 H Creatinine 1.46 H Glucose 122 H POC Glucose (mg/dL) 107 H 132 H Calcium 7.7 L Phosphorus Magnesium 3.5 H Iron TIBC % Saturation Transferrin Total Bilirubin AST 74 H Alkaline Phosphatase 37 L Total Protein 5.0 L Albumin 3.2 L Prealbumin Amylase Lipase Procalcitonin Urine Protein Urine Blood Ur Leukocyte Esterase Urine RBC Urine WBC Amorphous Sediment Urine Bacteria Hyaline Casts Urine Mucus Crossmatch 07/29/21 07/29/21 07/29/21 07:02 07:10 08:19 WBC RBC Hgb Hct MCV MCHC RDW Plt Count Neutrophils # Neutrophils # (Manual) Lymphocytes # Lymphocytes # (Manual) Monocytes # (Manual) Nucleated RBCs Macrocytosis PT 27.1 H INR 2.7 H APTT 41.8 H Fibrinogen ABG pH ABG pCO2 ABG pO2 ABG HCO3 ABG Total CO2 ABG O2 Saturation ABG Hematocrit ABG Ionized Calcium Hemoglobin Sodium Potassium Chloride Carbon Dioxide BUN Creatinine Glucose POC Glucose (mg/dL) 130 H 121 H Calcium Phosphorus Magnesium Iron TIBC % Saturation Transferrin Total Bilirubin AST Alkaline Phosphatase Total Protein Albumin Prealbumin Amylase Lipase Procalcitonin Urine Protein Urine Blood Ur Leukocyte Esterase Urine RBC Urine WBC Amorphous Sediment Urine Bacteria Hyaline Casts Urine Mucus Crossmatch 07/29/21 07/29/21 07/29/21 09:04 11:06 12:02 WBC RBC Hgb Hct MCV MCHC RDW Plt Count Neutrophils # Neutrophils # (Manual) Lymphocytes # Lymphocytes # (Manual) Monocytes # (Manual) Nucleated RBCs Macrocytosis PT INR APTT Fibrinogen ABG pH ABG pCO2 ABG pO2 ABG HCO3 ABG Total CO2 ABG O2 Saturation ABG Hematocrit ABG Ionized Calcium Hemoglobin Sodium Potassium Chloride Carbon Dioxide BUN Creatinine Glucose POC Glucose (mg/dL) 161 H 156 H 149 H Calcium Phosphorus Magnesium Iron TIBC % Saturation Transferrin Total Bilirubin AST Alkaline Phosphatase Total Protein Albumin Prealbumin Amylase Lipase Procalcitonin Urine Protein Urine Blood Ur Leukocyte Esterase Urine RBC Urine WBC Amorphous Sediment Urine Bacteria Hyaline Casts Urine Mucus Crossmatch 07/29/21 07/29/21 07/29/21 13:17 14:21 15:16 WBC RBC Hgb Hct MCV MCHC RDW Plt Count Neutrophils # Neutrophils # (Manual) Lymphocytes # Lymphocytes # (Manual) Monocytes # (Manual) Nucleated RBCs Macrocytosis PT INR APTT Fibrinogen ABG pH ABG pCO2 ABG pO2 ABG HCO3 ABG Total CO2 ABG O2 Saturation ABG Hematocrit ABG Ionized Calcium Hemoglobin Sodium Potassium Chloride Carbon Dioxide BUN Creatinine Glucose POC Glucose (mg/dL) 203 H 198 H 160 H Calcium Phosphorus Magnesium Iron TIBC % Saturation Transferrin Total Bilirubin AST Alkaline Phosphatase Total Protein Albumin Prealbumin Amylase Lipase Procalcitonin Urine Protein Urine Blood Ur Leukocyte Esterase Urine RBC Urine WBC Amorphous Sediment Urine Bacteria Hyaline Casts Urine Mucus Crossmatch 07/29/21 07/29/21 07/29/21 16:01 17:05 18:54 WBC RBC Hgb Hct MCV MCHC RDW Plt Count Neutrophils # Neutrophils # (Manual) Lymphocytes # Lymphocytes # (Manual) Monocytes # (Manual) Nucleated RBCs Macrocytosis PT INR APTT Fibrinogen ABG pH ABG pCO2 ABG pO2 ABG HCO3 ABG Total CO2 ABG O2 Saturation ABG Hematocrit ABG Ionized Calcium Hemoglobin Sodium Potassium Chloride Carbon Dioxide BUN Creatinine Glucose POC Glucose (mg/dL) 147 H 174 H 142 H Calcium Phosphorus Magnesium Iron TIBC % Saturation Transferrin Total Bilirubin AST Alkaline Phosphatase Total Protein Albumin Prealbumin Amylase Lipase Procalcitonin Urine Protein Urine Blood Ur Leukocyte Esterase Urine RBC Urine WBC Amorphous Sediment Urine Bacteria Hyaline Casts Urine Mucus Crossmatch 07/29/21 07/29/21 07/29/21 19:37 19:46 21:05 WBC RBC Hgb Hct MCV MCHC RDW Plt Count Neutrophils # Neutrophils # (Manual) Lymphocytes # Lymphocytes # (Manual) Monocytes # (Manual) Nucleated RBCs Macrocytosis PT INR APTT Fibrinogen ABG pH 7.29 L ABG pCO2 ABG pO2 61 L ABG HCO3 20 L ABG Total CO2 ABG O2 Saturation 91.1 L ABG Hematocrit ABG Ionized Calcium Hemoglobin Sodium Potassium Chloride Carbon Dioxide BUN Creatinine Glucose POC Glucose (mg/dL) 120 H Calcium Phosphorus Magnesium 3.1 H Iron TIBC % Saturation Transferrin Total Bilirubin AST Alkaline Phosphatase Total Protein Albumin Prealbumin Amylase Lipase Procalcitonin Urine Protein Urine Blood Ur Leukocyte Esterase Urine RBC Urine WBC Amorphous Sediment Urine Bacteria Hyaline Casts Urine Mucus Crossmatch 07/29/21 07/29/21 07/30/21 21:08 22:55 00:14 WBC RBC Hgb Hct MCV MCHC RDW Plt Count Neutrophils # Neutrophils # (Manual) Lymphocytes # Lymphocytes # (Manual) Monocytes # (Manual) Nucleated RBCs Macrocytosis PT INR APTT Fibrinogen ABG pH ABG pCO2 ABG pO2 ABG HCO3 ABG Total CO2 ABG O2 Saturation ABG Hematocrit ABG Ionized Calcium Hemoglobin Sodium Potassium Chloride Carbon Dioxide BUN Creatinine Glucose POC Glucose (mg/dL) 106 H 128 H 148 H Calcium Phosphorus Magnesium Iron TIBC % Saturation Transferrin Total Bilirubin AST Alkaline Phosphatase Total Protein Albumin Prealbumin Amylase Lipase Procalcitonin Urine Protein Urine Blood Ur Leukocyte Esterase Urine RBC Urine WBC Amorphous Sediment Urine Bacteria Hyaline Casts Urine Mucus Crossmatch 07/30/21 07/30/21 07/30/21 01:12 02:46 04:55 WBC 11.5 H RBC 2.20 L Hgb 6.6 L* Hct 21.1 L MCV MCHC RDW 15.9 H Plt Count 73 L Neutrophils # 10.1 H Neutrophils # (Manual) Lymphocytes # 0.4 L Lymphocytes # (Manual) Monocytes # (Manual) Nucleated RBCs Macrocytosis PT INR APTT Fibrinogen ABG pH ABG pCO2 ABG pO2 ABG HCO3 ABG Total CO2 ABG O2 Saturation ABG Hematocrit ABG Ionized Calcium Hemoglobin Sodium Potassium Chloride Carbon Dioxide BUN Creatinine Glucose POC Glucose (mg/dL) 131 H 102 H Calcium Phosphorus Magnesium Iron TIBC % Saturation Transferrin Total Bilirubin AST Alkaline Phosphatase Total Protein Albumin Prealbumin Amylase Lipase Procalcitonin Urine Protein Urine Blood Ur Leukocyte Esterase Urine RBC Urine WBC Amorphous Sediment Urine Bacteria Hyaline Casts Urine Mucus Crossmatch 07/30/21 07/30/21 07/30/21 04:55 04:56 06:00 WBC RBC Hgb Hct MCV MCHC RDW Plt Count Neutrophils # Neutrophils # (Manual) Lymphocytes # Lymphocytes # (Manual) Monocytes # (Manual) Nucleated RBCs Macrocytosis PT 66.0 H INR 6.5 H* APTT Fibrinogen ABG pH ABG pCO2 ABG pO2 ABG HCO3 ABG Total CO2 ABG O2 Saturation ABG Hematocrit ABG Ionized Calcium Hemoglobin Sodium Potassium Chloride 108 H Carbon Dioxide 20 L BUN 40 H Creatinine 2.01 H Glucose 119 H POC Glucose (mg/dL) 137 H Calcium 7.9 L Phosphorus Magnesium 2.9 H Iron TIBC % Saturation Transferrin Total Bilirubin AST 77 H Alkaline Phosphatase Total Protein 5.1 L Albumin 3.1 L Prealbumin Amylase Lipase Procalcitonin Urine Protein Urine Blood Ur Leukocyte Esterase Urine RBC Urine WBC Amorphous Sediment Urine Bacteria Hyaline Casts Urine Mucus Crossmatch 07/30/21 07/30/21 07/30/21 06:08 06:53 08:11 WBC RBC Hgb Hct MCV MCHC RDW Plt Count Neutrophils # Neutrophils # (Manual) Lymphocytes # Lymphocytes # (Manual) Monocytes # (Manual) Nucleated RBCs Macrocytosis PT INR APTT Fibrinogen ABG pH ABG pCO2 ABG pO2 ABG HCO3 ABG Total CO2 ABG O2 Saturation ABG Hematocrit ABG Ionized Calcium Hemoglobin Sodium Potassium Chloride Carbon Dioxide BUN Creatinine Glucose POC Glucose (mg/dL) 148 H 131 H 126 H Calcium Phosphorus Magnesium Iron TIBC % Saturation Transferrin Total Bilirubin AST Alkaline Phosphatase Total Protein Albumin Prealbumin Amylase Lipase Procalcitonin Urine Protein Urine Blood Ur Leukocyte Esterase Urine RBC Urine WBC Amorphous Sediment Urine Bacteria Hyaline Casts Urine Mucus Crossmatch 07/30/21 07/30/21 07/30/21 11:51 11:57 16:45 WBC RBC Hgb Hct MCV MCHC RDW Plt Count Neutrophils # Neutrophils # (Manual) Lymphocytes # Lymphocytes # (Manual) Monocytes # (Manual) Nucleated RBCs Macrocytosis PT 22.6 H INR 2.3 H APTT Fibrinogen ABG pH ABG pCO2 ABG pO2 ABG HCO3 ABG Total CO2 ABG O2 Saturation ABG Hematocrit ABG Ionized Calcium Hemoglobin Sodium Potassium Chloride Carbon Dioxide BUN Creatinine Glucose POC Glucose (mg/dL) 182 H 176 H Calcium Phosphorus Magnesium Iron TIBC % Saturation Transferrin Total Bilirubin AST Alkaline Phosphatase Total Protein Albumin Prealbumin Amylase Lipase Procalcitonin Urine Protein Urine Blood Ur Leukocyte Esterase Urine RBC Urine WBC Amorphous Sediment Urine Bacteria Hyaline Casts Urine Mucus Crossmatch 07/30/21 07/31/21 07/31/21 20:01 04:22 04:22 WBC RBC 2.43 L Hgb 7.6 L Hct 23.2 L MCV MCHC RDW 15.6 H Plt Count 63 L Neutrophils # Neutrophils # (Manual) Lymphocytes # 0.4 L Lymphocytes # (Manual) Monocytes # (Manual) Nucleated RBCs Macrocytosis PT INR APTT Fibrinogen ABG pH ABG pCO2 ABG pO2 ABG HCO3 ABG Total CO2 ABG O2 Saturation ABG Hematocrit ABG Ionized Calcium Hemoglobin Sodium 136 L Potassium Chloride Carbon Dioxide 20 L BUN 49 H Creatinine 2.17 H Glucose 132 H POC Glucose (mg/dL) 183 H Calcium 8.1 L Phosphorus Magnesium Iron TIBC % Saturation Transferrin Total Bilirubin AST 71 H Alkaline Phosphatase Total Protein 5.0 L Albumin 3.0 L Prealbumin Amylase Lipase Procalcitonin Urine Protein Urine Blood Ur Leukocyte Esterase Urine RBC Urine WBC Amorphous Sediment Urine Bacteria Hyaline Casts Urine Mucus Crossmatch 07/31/21 07/31/21 07/31/21 04:22 04:22 06:50 WBC RBC Hgb Hct MCV MCHC RDW Plt Count Neutrophils # Neutrophils # (Manual) Lymphocytes # Lymphocytes # (Manual) Monocytes # (Manual) Nucleated RBCs Macrocytosis PT 12.3 H INR 1.2 H APTT Fibrinogen ABG pH ABG pCO2 ABG pO2 ABG HCO3 ABG Total CO2 ABG O2 Saturation ABG Hematocrit ABG Ionized Calcium Hemoglobin Sodium Potassium Chloride Carbon Dioxide BUN Creatinine Glucose POC Glucose (mg/dL) 163 H Calcium Phosphorus Magnesium Iron TIBC % Saturation Transferrin Total Bilirubin AST Alkaline Phosphatase Total Protein Albumin Prealbumin 8.4 L Amylase Lipase Procalcitonin Urine Protein Urine Blood Ur Leukocyte Esterase Urine RBC Urine WBC Amorphous Sediment Urine Bacteria Hyaline Casts Urine Mucus Crossmatch 07/31/21 07/31/2107/31/22 12:23 16:32 20:17 WBC RBC Hgb Hct MCV MCHC RDW Plt Count Neutrophils # Neutrophils # (Manual) Lymphocytes # Lymphocytes # (Manual) Monocytes # (Manual) Nucleated RBCs Macrocytosis PT INR APTT Fibrinogen ABG pH ABG pCO2 ABG pO2 ABG HCO3 ABG Total CO2 ABG O2 Saturation ABG Hematocrit ABG Ionized Calcium Hemoglobin Sodium Potassium Chloride Carbon Dioxide BUN Creatinine Glucose POC Glucose (mg/dL) 151 H 113 H 139 H Calcium Phosphorus Magnesium Iron TIBC % Saturation Transferrin Total Bilirubin AST Alkaline Phosphatase Total Protein Albumin Prealbumin Amylase Lipase Procalcitonin Urine Protein Urine Blood Ur Leukocyte Esterase Urine RBC Urine WBC Amorphous Sediment Urine Bacteria Hyaline Casts Urine Mucus Crossmatch 08/01/21 08/01/21 08/01/21 06:40 09:47 09:47 WBC RBC 2.44 L Hgb 7.5 L Hct 23.5 L MCV MCHC RDW 15.7 H Plt Count 78 L Neutrophils # Neutrophils # (Manual) Lymphocytes # 0.4 L Lymphocytes # (Manual) Monocytes # (Manual) Nucleated RBCs Macrocytosis PT INR APTT Fibrinogen ABG pH ABG pCO2 ABG pO2 ABG HCO3 ABG Total CO2 ABG O2 Saturation ABG Hematocrit ABG Ionized Calcium Hemoglobin Sodium Potassium Chloride 108 H Carbon Dioxide BUN 62 H Creatinine 2.32 H Glucose 146 H POC Glucose (mg/dL) 121 H Calcium 7.9 L Phosphorus Magnesium Iron TIBC % Saturation Transferrin Total Bilirubin 1.5 H AST 71 H Alkaline Phosphatase Total Protein 5.0 L Albumin 2.8 L Prealbumin Amylase Lipase Procalcitonin Urine Protein Urine Blood Ur Leukocyte Esterase Urine RBC Urine WBC Amorphous Sediment Urine Bacteria Hyaline Casts Urine Mucus Crossmatch 08/01/21 08/01/21 08/01/21 11:24 16:22 17:24 WBC RBC Hgb Hct MCV MCHC RDW Plt Count Neutrophils # Neutrophils # (Manual) Lymphocytes # Lymphocytes # (Manual) Monocytes # (Manual) Nucleated RBCs Macrocytosis PT INR APTT Fibrinogen ABG pH ABG pCO2 ABG pO2 ABG HCO3 ABG Total CO2 ABG O2 Saturation ABG Hematocrit ABG Ionized Calcium Hemoglobin Sodium Potassium Chloride Carbon Dioxide BUN Creatinine Glucose POC Glucose (mg/dL) 184 H 189 H 181 H Calcium Phosphorus Magnesium Iron TIBC % Saturation Transferrin Total Bilirubin AST Alkaline Phosphatase Total Protein Albumin Prealbumin Amylase Lipase Procalcitonin Urine Protein Urine Blood Ur Leukocyte Esterase Urine RBC Urine WBC Amorphous Sediment Urine Bacteria Hyaline Casts Urine Mucus Crossmatch 08/01/21 08/02/21 08/02/21 20:50 06:36 07:31 WBC RBC 2.60 L Hgb 8.0 L Hct 25.3 L MCV MCHC RDW 15.7 H Plt Count 88 L Neutrophils # Neutrophils # (Manual) Lymphocytes # Lymphocytes # (Manual) Monocytes # (Manual) Nucleated RBCs Macrocytosis PT INR APTT Fibrinogen ABG pH ABG pCO2 ABG pO2 ABG HCO3 ABG Total CO2 ABG O2 Saturation ABG Hematocrit ABG Ionized Calcium Hemoglobin Sodium Potassium Chloride Carbon Dioxide BUN Creatinine Glucose POC Glucose (mg/dL) 106 H 130 H Calcium Phosphorus Magnesium Iron TIBC % Saturation Transferrin Total Bilirubin AST Alkaline Phosphatase Total Protein Albumin Prealbumin Amylase Lipase Procalcitonin Urine Protein Urine Blood Ur Leukocyte Esterase Urine RBC Urine WBC Amorphous Sediment Urine Bacteria Hyaline Casts Urine Mucus Crossmatch 08/02/21 08/02/21 08/02/21 07:31 11:08 20:17 WBC RBC Hgb Hct MCV MCHC RDW Plt Count Neutrophils # Neutrophils # (Manual) Lymphocytes # Lymphocytes # (Manual) Monocytes # (Manual) Nucleated RBCs Macrocytosis PT INR APTT Fibrinogen ABG pH ABG pCO2 ABG pO2 ABG HCO3 ABG Total CO2 ABG O2 Saturation ABG Hematocrit ABG Ionized Calcium Hemoglobin Sodium Potassium Chloride Carbon Dioxide BUN 64 H Creatinine 2.21 H Glucose 155 H POC Glucose (mg/dL) 205 H 161 H Calcium 8.1 L Phosphorus Magnesium Iron TIBC % Saturation Transferrin Total Bilirubin 1.7 H AST 65 H Alkaline Phosphatase Total Protein 5.4 L Albumin 3.0 L Prealbumin Amylase Lipase Procalcitonin Urine Protein Urine Blood Ur Leukocyte Esterase Urine RBC Urine WBC Amorphous Sediment Urine Bacteria Hyaline Casts Urine Mucus Crossmatch 08/03/21 08/03/21 08/03/21 07:40 07:40 10:50 WBC 11.1 H RBC 2.57 L Hgb 8.0 L Hct 25.2 L MCV MCHC RDW 16.5 H Plt Count 109 L Neutrophils # 9.1 H Neutrophils # (Manual) Lymphocytes # 0.7 L Lymphocytes # (Manual) Monocytes # (Manual) Nucleated RBCs Macrocytosis PT INR APTT Fibrinogen ABG pH ABG pCO2 ABG pO2 ABG HCO3 ABG Total CO2 ABG O2 Saturation ABG Hematocrit ABG Ionized Calcium Hemoglobin Sodium Potassium Chloride Carbon Dioxide BUN 70 H Creatinine 2.35 H Glucose 150 H POC Glucose (mg/dL) Calcium 7.9 L Phosphorus Magnesium Iron TIBC % Saturation Transferrin Total Bilirubin 1.6 H AST Alkaline Phosphatase Total Protein 5.4 L Albumin 2.9 L Prealbumin Amylase Lipase Procalcitonin Urine Protein 2+ H Urine Blood Large H Ur Leukocyte Esterase Moderate H Urine RBC >182 H Urine WBC 45 H Amorphous Sediment Few H Urine Bacteria Occasional H Hyaline Casts 12 H Urine Mucus Rare H Crossmatch 08/03/21 08/03/21 08/03/21 11:27 16:25 20:28 WBC RBC Hgb Hct MCV MCHC RDW Plt Count Neutrophils # Neutrophils # (Manual) Lymphocytes # Lymphocytes # (Manual) Monocytes # (Manual) Nucleated RBCs Macrocytosis PT INR APTT Fibrinogen ABG pH ABG pCO2 ABG pO2 ABG HCO3 ABG Total CO2 ABG O2 Saturation ABG Hematocrit ABG Ionized Calcium Hemoglobin Sodium Potassium Chloride Carbon Dioxide BUN Creatinine Glucose POC Glucose (mg/dL) 162 H 168 H 151 H Calcium Phosphorus Magnesium Iron TIBC % Saturation Transferrin Total Bilirubin AST Alkaline Phosphatase Total Protein Albumin Prealbumin Amylase Lipase Procalcitonin Urine Protein Urine Blood Ur Leukocyte Esterase Urine RBC Urine WBC Amorphous Sediment Urine Bacteria Hyaline Casts Urine Mucus Crossmatch 08/03/21 08/04/21 08/04/21 20:42 03:10 03:10 WBC 12.4 H RBC 2.50 L Hgb 7.8 L Hct 24.8 L MCV MCHC RDW 18.3 H Plt Count 134 L Neutrophils # 10.1 H Neutrophils # (Manual) Lymphocytes # 0.8 L Lymphocytes # (Manual) Monocytes # (Manual) Nucleated RBCs Macrocytosis PT INR APTT Fibrinogen ABG pH ABG pCO2 ABG pO2 ABG HCO3 ABG Total CO2 ABG O2 Saturation ABG Hematocrit ABG Ionized Calcium Hemoglobin Sodium Potassium Chloride Carbon Dioxide 21 L BUN 76 H Creatinine 2.36 H Glucose 123 H POC Glucose (mg/dL) 149 H Calcium 7.9 L Phosphorus Magnesium Iron TIBC % Saturation Transferrin Total Bilirubin 1.5 H AST 62 H Alkaline Phosphatase Total Protein 5.3 L Albumin 2.9 L Prealbumin Amylase Lipase Procalcitonin Urine Protein Urine Blood Ur Leukocyte Esterase Urine RBC Urine WBC Amorphous Sediment Urine Bacteria Hyaline Casts Urine Mucus Crossmatch 08/04/21 08/04/21 08/04/21 07:01 08:47 11:17 WBC RBC Hgb Hct MCV MCHC RDW Plt Count Neutrophils # Neutrophils # (Manual) Lymphocytes # Lymphocytes # (Manual) Monocytes # (Manual) Nucleated RBCs Macrocytosis PT INR APTT Fibrinogen ABG pH ABG pCO2 ABG pO2 ABG HCO3 ABG Total CO2 ABG O2 Saturation ABG Hematocrit ABG Ionized Calcium Hemoglobin Sodium Potassium Chloride Carbon Dioxide BUN Creatinine Glucose POC Glucose (mg/dL) 134 H 179 H Calcium Phosphorus Magnesium Iron 30 L TIBC 196 L % Saturation Transferrin 140.0 L Total Bilirubin AST Alkaline Phosphatase Total Protein Albumin Prealbumin Amylase Lipase Procalcitonin Urine Protein Urine Blood Ur Leukocyte Esterase Urine RBC Urine WBC Amorphous Sediment Urine Bacteria Hyaline Casts Urine Mucus Crossmatch 08/04/21 08/04/21 08/05/21 16:33 20:39 06:24 WBC 14.4 H RBC 2.59 L Hgb 8.0 L Hct 25.9 L MCV MCHC RDW 18.9 H Plt Count Neutrophils # Neutrophils # (Manual) 13.10 H Lymphocytes # Lymphocytes # (Manual) 0.29 L Monocytes # (Manual) 1.01 H Nucleated RBCs 1 H Macrocytosis PT INR APTT Fibrinogen ABG pH ABG pCO2 ABG pO2 ABG HCO3 ABG Total CO2 ABG O2 Saturation ABG Hematocrit ABG Ionized Calcium Hemoglobin Sodium Potassium Chloride Carbon Dioxide BUN Creatinine Glucose POC Glucose (mg/dL) 196 H 182 H Calcium Phosphorus Magnesium Iron TIBC % Saturation Transferrin Total Bilirubin AST Alkaline Phosphatase Total Protein Albumin Prealbumin Amylase Lipase Procalcitonin Urine Protein Urine Blood Ur Leukocyte Esterase Urine RBC Urine WBC Amorphous Sediment Urine Bacteria Hyaline Casts Urine Mucus Crossmatch 08/05/21 08/05/21 08/05/21 06:24 06:24 06:47 WBC RBC Hgb Hct MCV MCHC RDW Plt Count Neutrophils # Neutrophils # (Manual) Lymphocytes # Lymphocytes # (Manual) Monocytes # (Manual) Nucleated RBCs Macrocytosis PT 12.9 H INR 1.2 H APTT Fibrinogen ABG pH ABG pCO2 ABG pO2 ABG HCO3 ABG Total CO2 ABG O2 Saturation ABG Hematocrit ABG Ionized Calcium Hemoglobin Sodium Potassium Chloride Carbon Dioxide BUN 85 H Creatinine 2.20 H Glucose 131 H POC Glucose (mg/dL) 137 H Calcium 7.9 L Phosphorus Magnesium Iron TIBC % Saturation Transferrin Total Bilirubin 1.7 H AST Alkaline Phosphatase Total Protein 5.6 L Albumin 2.9 L Prealbumin Amylase Lipase Procalcitonin Urine Protein Urine Blood Ur Leukocyte Esterase Urine RBC Urine WBC Amorphous Sediment Urine Bacteria Hyaline Casts Urine Mucus Crossmatch 08/05/21 08/05/21 08/05/21 12:12 16:10 20:38 WBC RBC Hgb Hct MCV MCHC RDW Plt Count Neutrophils # Neutrophils # (Manual) Lymphocytes # Lymphocytes # (Manual) Monocytes # (Manual) Nucleated RBCs Macrocytosis PT INR APTT Fibrinogen ABG pH ABG pCO2 ABG pO2 ABG HCO3 ABG Total CO2 ABG O2 Saturation ABG Hematocrit ABG Ionized Calcium Hemoglobin Sodium Potassium Chloride Carbon Dioxide BUN Creatinine Glucose POC Glucose (mg/dL) 189 H 188 H 167 H Calcium Phosphorus Magnesium Iron TIBC % Saturation Transferrin Total Bilirubin AST Alkaline Phosphatase Total Protein Albumin Prealbumin Amylase Lipase Procalcitonin Urine Protein Urine Blood Ur Leukocyte Esterase Urine RBC Urine WBC Amorphous Sediment Urine Bacteria Hyaline Casts Urine Mucus Crossmatch 08/06/21 08/06/21 08/06/21 06:48 07:17 07:17 WBC 15.3 H RBC 2.71 L Hgb 8.6 L Hct 27.2 L MCV 100.3 H MCHC RDW 19.9 H Plt Count Neutrophils # 13.4 H Neutrophils # (Manual) Lymphocytes # 0.7 L Lymphocytes # (Manual) Monocytes # (Manual) Nucleated RBCs Macrocytosis PT 12.2 H INR APTT Fibrinogen ABG pH ABG pCO2 ABG pO2 ABG HCO3 ABG Total CO2 ABG O2 Saturation ABG Hematocrit ABG Ionized Calcium Hemoglobin Sodium Potassium Chloride Carbon Dioxide BUN Creatinine Glucose POC Glucose (mg/dL) 146 H Calcium Phosphorus Magnesium Iron TIBC % Saturation Transferrin Total Bilirubin AST Alkaline Phosphatase Total Protein Albumin Prealbumin Amylase Lipase Procalcitonin Urine Protein Urine Blood Ur Leukocyte Esterase Urine RBC Urine WBC Amorphous Sediment Urine Bacteria Hyaline Casts Urine Mucus Crossmatch 08/06/21 08/06/21 08/06/21 07:17 07:17 10:55 WBC RBC Hgb Hct MCV MCHC RDW Plt Count Neutrophils # Neutrophils # (Manual) Lymphocytes # Lymphocytes # (Manual) Monocytes # (Manual) Nucleated RBCs Macrocytosis PT INR APTT Fibrinogen ABG pH ABG pCO2 ABG pO2 ABG HCO3 ABG Total CO2 ABG O2 Saturation ABG Hematocrit ABG Ionized Calcium Hemoglobin Sodium Potassium Chloride Carbon Dioxide BUN 89 H Creatinine 2.43 H Glucose 132 H POC Glucose (mg/dL) Calcium 7.8 L Phosphorus Magnesium 2.6 H Iron TIBC % Saturation Transferrin Total Bilirubin 1.7 H AST Alkaline Phosphatase Total Protein 5.5 L Albumin 2.9 L Prealbumin Amylase Lipase Procalcitonin 1.28 H Urine Protein 1+ H Urine Blood Large H Ur Leukocyte Esterase Trace H Urine RBC Urine WBC 11 H Amorphous Sediment Moderate H Urine Bacteria Occasional H Hyaline Casts 11 H Urine Mucus Crossmatch 08/06/21 08/06/21 08/06/21 12:32 16:41 20:37 WBC RBC Hgb Hct MCV MCHC RDW Plt Count Neutrophils # Neutrophils # (Manual) Lymphocytes # Lymphocytes # (Manual) Monocytes # (Manual) Nucleated RBCs Macrocytosis PT INR APTT Fibrinogen ABG pH ABG pCO2 ABG pO2 ABG HCO3 ABG Total CO2 ABG O2 Saturation ABG Hematocrit ABG Ionized Calcium Hemoglobin Sodium Potassium Chloride Carbon Dioxide BUN Creatinine Glucose POC Glucose (mg/dL) 226 H 194 H 190 H Calcium Phosphorus Magnesium Iron TIBC % Saturation Transferrin Total Bilirubin AST Alkaline Phosphatase Total Protein Albumin Prealbumin Amylase Lipase Procalcitonin Urine Protein Urine Blood Ur Leukocyte Esterase Urine RBC Urine WBC Amorphous Sediment Urine Bacteria Hyaline Casts Urine Mucus Crossmatch 08/07/21 08/07/21 08/07/21 04:17 04:17 06:13 WBC 18.5 H RBC 2.75 L Hgb 8.6 L Hct 28.0 L MCV 101.9 H MCHC 30.6 L RDW 20.0 H Plt Count Neutrophils # 16.3 H Neutrophils # (Manual) Lymphocytes # 0.8 L Lymphocytes # (Manual) Monocytes # (Manual) Nucleated RBCs Macrocytosis PT INR APTT Fibrinogen ABG pH ABG pCO2 ABG pO2 ABG HCO3 ABG Total CO2 ABG O2 Saturation ABG Hematocrit ABG Ionized Calcium Hemoglobin Sodium 135 L Potassium Chloride Carbon Dioxide 18 L BUN 99 H Creatinine 2.38 H Glucose 161 H POC Glucose (mg/dL) 164 H Calcium 8.1 L Phosphorus Magnesium Iron TIBC % Saturation Transferrin Total Bilirubin 1.5 H AST Alkaline Phosphatase Total Protein 5.6 L Albumin 3.0 L Prealbumin Amylase Lipase Procalcitonin Urine Protein Urine Blood Ur Leukocyte Esterase Urine RBC Urine WBC Amorphous Sediment Urine Bacteria Hyaline Casts Urine Mucus Crossmatch 08/07/21 08/07/2122 08:22 11:35 16:54 WBC RBC Hgb Hct MCV MCHC RDW Plt Count Neutrophils # Neutrophils # (Manual) Lymphocytes # Lymphocytes # (Manual) Monocytes # (Manual) Nucleated RBCs Macrocytosis PT INR APTT Fibrinogen ABG pH ABG pCO2 ABG pO2 ABG HCO3 ABG Total CO2 ABG O2 Saturation ABG Hematocrit ABG Ionized Calcium Hemoglobin Sodium Potassium Chloride Carbon Dioxide BUN Creatinine Glucose POC Glucose (mg/dL) 188 H 187 H Calcium Phosphorus Magnesium Iron TIBC % Saturation Transferrin Total Bilirubin AST Alkaline Phosphatase Total Protein Albumin Prealbumin Amylase 115 H Lipase 429 H Procalcitonin Urine Protein Urine Blood Ur Leukocyte Esterase Urine RBC Urine WBC Amorphous Sediment Urine Bacteria Hyaline Casts Urine Mucus Crossmatch 08/07/21 08/08/21 08/08/21 20:11 06:40 07:08 WBC RBC Hgb Hct MCV MCHC RDW Plt Count Neutrophils # Neutrophils # (Manual) Lymphocytes # Lymphocytes # (Manual) Monocytes # (Manual) Nucleated RBCs Macrocytosis PT INR APTT Fibrinogen ABG pH ABG pCO2 ABG pO2 ABG HCO3 ABG Total CO2 ABG O2 Saturation ABG Hematocrit ABG Ionized Calcium Hemoglobin Sodium Potassium Chloride Carbon Dioxide BUN Creatinine Glucose POC Glucose (mg/dL) 154 H 136 H Calcium Phosphorus Magnesium Iron TIBC % Saturation Transferrin Total Bilirubin AST Alkaline Phosphatase Total Protein Albumin Prealbumin Amylase Lipase Procalcitonin 1.15 H Urine Protein Urine Blood Ur Leukocyte Esterase Urine RBC Urine WBC Amorphous Sediment Urine Bacteria Hyaline Casts Urine Mucus Crossmatch 08/08/21 08/08/21 08/08/21 07:08 07:08 07:08 WBC 17.1 H RBC 2.62 L Hgb 8.3 L Hct 26.5 L MCV 100.9 H MCHC RDW 20.6 H Plt Count Neutrophils # 15.3 H Neutrophils # (Manual) Lymphocytes # 0.6 L Lymphocytes # (Manual) Monocytes # (Manual) Nucleated RBCs Macrocytosis PT 13.0 H INR 1.2 H APTT Fibrinogen ABG pH ABG pCO2 ABG pO2 ABG HCO3 ABG Total CO2 ABG O2 Saturation ABG Hematocrit ABG Ionized Calcium Hemoglobin Sodium 136 L Potassium Chloride Carbon Dioxide BUN 94 H Creatinine 2.51 H Glucose 124 H POC Glucose (mg/dL) Calcium 8.0 L Phosphorus Magnesium 2.8 H Iron TIBC % Saturation Transferrin Total Bilirubin AST Alkaline Phosphatase Total Protein Albumin Prealbumin Amylase Lipase Procalcitonin Urine Protein Urine Blood Ur Leukocyte Esterase Urine RBC Urine WBC Amorphous Sediment Urine Bacteria Hyaline Casts Urine Mucus Crossmatch 08/08/21 08/08/21 08/09/21 11:49 16:57 06:31 WBC RBC Hgb Hct MCV MCHC RDW Plt Count Neutrophils # Neutrophils # (Manual) Lymphocytes # Lymphocytes # (Manual) Monocytes # (Manual) Nucleated RBCs Macrocytosis PT INR APTT Fibrinogen ABG pH ABG pCO2 ABG pO2 ABG HCO3 ABG Total CO2 ABG O2 Saturation ABG Hematocrit ABG Ionized Calcium Hemoglobin Sodium Potassium Chloride Carbon Dioxide BUN Creatinine Glucose POC Glucose (mg/dL) 185 H 204 H 140 H Calcium Phosphorus Magnesium Iron TIBC % Saturation Transferrin Total Bilirubin AST Alkaline Phosphatase Total Protein Albumin Prealbumin Amylase Lipase Procalcitonin Urine Protein Urine Blood Ur Leukocyte Esterase Urine RBC Urine WBC Amorphous Sediment Urine Bacteria Hyaline Casts Urine Mucus Crossmatch 08/09/21 08/09/21 08/09/21 06:35 06:35 06:35 WBC 17.2 H RBC 2.71 L Hgb 8.4 L Hct 28.0 L MCV 103.1 H MCHC 30.0 L RDW 20.5 H Plt Count Neutrophils # 15.4 H Neutrophils # (Manual) Lymphocytes # 0.5 L Lymphocytes # (Manual) Monocytes # (Manual) Nucleated RBCs Macrocytosis PT 13.0 H INR 1.2 H APTT Fibrinogen ABG pH ABG pCO2 ABG pO2 ABG HCO3 ABG Total CO2 ABG O2 Saturation ABG Hematocrit ABG Ionized Calcium Hemoglobin Sodium 134 L Potassium Chloride Carbon Dioxide BUN 103 H* Creatinine 2.55 H Glucose 131 H POC Glucose (mg/dL) Calcium 8.1 L Phosphorus Magnesium Iron TIBC % Saturation Transferrin Total Bilirubin AST Alkaline Phosphatase Total Protein Albumin Prealbumin Amylase Lipase Procalcitonin Urine Protein Urine Blood Ur Leukocyte Esterase Urine RBC Urine WBC Amorphous Sediment Urine Bacteria Hyaline Casts Urine Mucus Crossmatch 08/09/21 08/09/21 08/09/21 06:35 11:37 16:43 WBC RBC Hgb Hct MCV MCHC RDW Plt Count Neutrophils # Neutrophils # (Manual) Lymphocytes # Lymphocytes # (Manual) Monocytes # (Manual) Nucleated RBCs Macrocytosis PT INR APTT Fibrinogen ABG pH ABG pCO2 ABG pO2 ABG HCO3 ABG Total CO2 ABG O2 Saturation ABG Hematocrit ABG Ionized Calcium Hemoglobin Sodium Potassium Chloride Carbon Dioxide BUN Creatinine Glucose POC Glucose (mg/dL) 204 H 174 H Calcium Phosphorus 5.5 H Magnesium Iron TIBC % Saturation Transferrin Total Bilirubin AST Alkaline Phosphatase Total Protein Albumin Prealbumin Amylase Lipase Procalcitonin Urine Protein Urine Blood Ur Leukocyte Esterase Urine RBC Urine WBC Amorphous Sediment Urine Bacteria Hyaline Casts Urine Mucus Crossmatch 08/09/21 08/10/21 08/10/21 20:44 05:45 05:45 WBC 16.1 H RBC 2.61 L Hgb 8.2 L Hct 27.2 L MCV 104.4 H MCHC 29.9 L RDW 21.3 H Plt Count Neutrophils # Neutrophils # (Manual) 14.81 H Lymphocytes # Lymphocytes # (Manual) 0.32 L Monocytes # (Manual) Nucleated RBCs Macrocytosis Marked A PT 12.8 H INR 1.2 H APTT Fibrinogen ABG pH ABG pCO2 ABG pO2 ABG HCO3 ABG Total CO2 ABG O2 Saturation ABG Hematocrit ABG Ionized Calcium Hemoglobin Sodium Potassium Chloride Carbon Dioxide BUN Creatinine Glucose POC Glucose (mg/dL) 204 H Calcium Phosphorus Magnesium Iron TIBC % Saturation Transferrin Total Bilirubin AST Alkaline Phosphatase Total Protein Albumin Prealbumin Amylase Lipase Procalcitonin Urine Protein Urine Blood Ur Leukocyte Esterase Urine RBC Urine WBC Amorphous Sediment Urine Bacteria Hyaline Casts Urine Mucus Crossmatch 08/10/21 08/10/21 08/10/21 05:45 06:40 11:15 WBC RBC Hgb Hct MCV MCHC RDW Plt Count Neutrophils # Neutrophils # (Manual) Lymphocytes # Lymphocytes # (Manual) Monocytes # (Manual) Nucleated RBCs Macrocytosis PT INR APTT Fibrinogen ABG pH ABG pCO2 ABG pO2 ABG HCO3 ABG Total CO2 ABG O2 Saturation ABG Hematocrit ABG Ionized Calcium Hemoglobin Sodium 132 L Potassium Chloride Carbon Dioxide BUN 110 H* Creatinine 2.72 H Glucose 111 H POC Glucose (mg/dL) 139 H 189 H Calcium 7.9 L Phosphorus Magnesium Iron TIBC % Saturation Transferrin Total Bilirubin AST Alkaline Phosphatase Total Protein Albumin Prealbumin Amylase Lipase Procalcitonin Urine Protein Urine Blood Ur Leukocyte Esterase Urine RBC Urine WBC Amorphous Sediment Urine Bacteria Hyaline Casts Urine Mucus Crossmatch 08/10/21 08/10/21 08/11/21 16:46 20:25 06:43 WBC RBC Hgb Hct MCV MCHC RDW Plt Count Neutrophils # Neutrophils # (Manual) Lymphocytes # Lymphocytes # (Manual) Monocytes # (Manual) Nucleated RBCs Macrocytosis PT INR APTT Fibrinogen ABG pH ABG pCO2 ABG pO2 ABG HCO3 ABG Total CO2 ABG O2 Saturation ABG Hematocrit ABG Ionized Calcium Hemoglobin Sodium Potassium Chloride Carbon Dioxide BUN Creatinine Glucose POC Glucose (mg/dL) 202 H 134 H 138 H Calcium Phosphorus Magnesium Iron TIBC % Saturation Transferrin Total Bilirubin AST Alkaline Phosphatase Total Protein Albumin Prealbumin Amylase Lipase Procalcitonin Urine Protein Urine Blood Ur Leukocyte Esterase Urine RBC Urine WBC Amorphous Sediment Urine Bacteria Hyaline Casts Urine Mucus Crossmatch 08/11/21 08/11/21 08/11/21 07:33 07:33 07:33 WBC 16.3 H RBC 2.87 L Hgb 8.9 L Hct 29.9 L MCV 103.9 H MCHC 29.6 L RDW 21.7 H Plt Count Neutrophils # 15.0 H Neutrophils # (Manual) Lymphocytes # 0.3 L Lymphocytes # (Manual) Monocytes # (Manual) Nucleated RBCs Macrocytosis Marked A PT 14.4 H INR 1.4 H APTT Fibrinogen ABG pH ABG pCO2 ABG pO2 ABG HCO3 ABG Total CO2 ABG O2 Saturation ABG Hematocrit ABG Ionized Calcium Hemoglobin Sodium 134 L Potassium Chloride Carbon Dioxide BUN 119 H* Creatinine 2.63 H Glucose 124 H POC Glucose (mg/dL) Calcium 8.2 L Phosphorus Magnesium Iron TIBC % Saturation Transferrin Total Bilirubin AST Alkaline Phosphatase Total Protein Albumin Prealbumin Amylase Lipase Procalcitonin Urine Protein Urine Blood Ur Leukocyte Esterase Urine RBC Urine WBC Amorphous Sediment Urine Bacteria Hyaline Casts Urine Mucus Crossmatch 08/11/21 08/11/21 08/11/21 11:56 16:21 21:42 WBC RBC Hgb Hct MCV MCHC RDW Plt Count Neutrophils # Neutrophils # (Manual) Lymphocytes # Lymphocytes # (Manual) Monocytes # (Manual) Nucleated RBCs Macrocytosis PT INR APTT Fibrinogen ABG pH ABG pCO2 ABG pO2 ABG HCO3 ABG Total CO2 ABG O2 Saturation ABG Hematocrit ABG Ionized Calcium Hemoglobin Sodium Potassium Chloride Carbon Dioxide BUN Creatinine Glucose POC Glucose (mg/dL) 228 H 151 H 186 H Calcium Phosphorus Magnesium Iron TIBC % Saturation Transferrin Total Bilirubin AST Alkaline Phosphatase Total Protein Albumin Prealbumin Amylase Lipase Procalcitonin Urine Protein Urine Blood Ur Leukocyte Esterase Urine RBC Urine WBC Amorphous Sediment Urine Bacteria Hyaline Casts Urine Mucus Crossmatch 0408/12/21 08/12/21 06:54 07:18 07:18 WBC 13.2 H RBC 2.66 L Hgb 8.5 L Hct 27.9 L MCV 104.9 H MCHC 30.4 L RDW 21.5 H Plt Count Neutrophils # 11.8 H Neutrophils # (Manual) Lymphocytes # 0.3 L Lymphocytes # (Manual) Monocytes # (Manual) Nucleated RBCs Macrocytosis Marked A PT INR APTT Fibrinogen ABG pH ABG pCO2 ABG pO2 ABG HCO3 ABG Total CO2 ABG O2 Saturation ABG Hematocrit ABG Ionized Calcium Hemoglobin Sodium 133 L Potassium Chloride Carbon Dioxide 21 L BUN 119 H* Creatinine 2.80 H Glucose 130 H POC Glucose (mg/dL) 138 H Calcium 8.2 L Phosphorus Magnesium Iron TIBC % Saturation Transferrin Total Bilirubin AST Alkaline Phosphatase Total Protein Albumin Prealbumin Amylase Lipase Procalcitonin Urine Protein Urine Blood Ur Leukocyte Esterase Urine RBC Urine WBC Amorphous Sediment Urine Bacteria Hyaline Casts Urine Mucus Crossmatch 08/12/21 08/12/21 08/12/21 07:18 07:18 11:37 WBC RBC Hgb Hct MCV MCHC RDW Plt Count Neutrophils # Neutrophils # (Manual) Lymphocytes # Lymphocytes # (Manual) Monocytes # (Manual) Nucleated RBCs Macrocytosis PT 17.0 H INR 1.7 H APTT Fibrinogen ABG pH ABG pCO2 ABG pO2 ABG HCO3 ABG Total CO2 ABG O2 Saturation ABG Hematocrit ABG Ionized Calcium Hemoglobin Sodium Potassium Chloride Carbon Dioxide BUN Creatinine Glucose POC Glucose (mg/dL) 173 H Calcium Phosphorus Magnesium Iron 31 L TIBC % Saturation 10.91 L Transferrin Total Bilirubin AST Alkaline Phosphatase Total Protein Albumin Prealbumin Amylase Lipase Procalcitonin Urine Protein Urine Blood Ur Leukocyte Esterase Urine RBC Urine WBC Amorphous Sediment Urine Bacteria Hyaline Casts Urine Mucus Crossmatch 08/12/21 08/12/21 08/13/21 16:09 20:06 05:31 WBC 13.8 H RBC 2.79 L Hgb 8.7 L Hct 29.4 L MCV 105.3 H MCHC 29.5 L RDW 21.1 H Plt Count Neutrophils # 12.3 H Neutrophils # (Manual) Lymphocytes # 0.3 L Lymphocytes # (Manual) Monocytes # (Manual) Nucleated RBCs Macrocytosis Marked A PT INR APTT Fibrinogen ABG pH ABG pCO2 ABG pO2 ABG HCO3 ABG Total CO2 ABG O2 Saturation ABG Hematocrit ABG Ionized Calcium Hemoglobin Sodium Potassium Chloride Carbon Dioxide BUN Creatinine Glucose POC Glucose (mg/dL) 233 H 228 H Calcium Phosphorus Magnesium Iron TIBC % Saturation Transferrin Total Bilirubin AST Alkaline Phosphatase Total Protein Albumin Prealbumin Amylase Lipase Procalcitonin Urine Protein Urine Blood Ur Leukocyte Esterase Urine RBC Urine WBC Amorphous Sediment Urine Bacteria Hyaline Casts Urine Mucus Crossmatch 08/13/21 08/13/21 08/13/21 05:31 05:31 05:31 WBC RBC Hgb Hct MCV MCHC RDW Plt Count Neutrophils # Neutrophils # (Manual) Lymphocytes # Lymphocytes # (Manual) Monocytes # (Manual) Nucleated RBCs Macrocytosis PT 20.5 H INR 2.0 H APTT Fibrinogen ABG pH ABG pCO2 ABG pO2 ABG HCO3 ABG Total CO2 ABG O2 Saturation ABG Hematocrit ABG Ionized Calcium Hemoglobin Sodium 134 L Potassium 5.2 H Chloride Carbon Dioxide BUN 126 H* Creatinine 2.84 H Glucose 127 H POC Glucose (mg/dL) Calcium 8.3 L Phosphorus Magnesium Iron TIBC % Saturation Transferrin Total Bilirubin AST Alkaline Phosphatase 129 H Total Protein 6.1 L Albumin 3.0 L Prealbumin 9.8 L Amylase Lipase Procalcitonin Urine Protein Urine Blood Ur Leukocyte Esterase Urine RBC Urine WBC Amorphous Sediment Urine Bacteria Hyaline Casts Urine Mucus Crossmatch 08/13/21 08/13/21 08/13/21 07:38 11:40 16:52 WBC RBC Hgb Hct MCV MCHC RDW Plt Count Neutrophils # Neutrophils # (Manual) Lymphocytes # Lymphocytes # (Manual) Monocytes # (Manual) Nucleated RBCs Macrocytosis PT INR APTT Fibrinogen ABG pH ABG pCO2 ABG pO2 ABG HCO3 ABG Total CO2 ABG O2 Saturation ABG Hematocrit ABG Ionized Calcium Hemoglobin Sodium Potassium Chloride Carbon Dioxide BUN Creatinine Glucose POC Glucose (mg/dL) 179 H 168 H 162 H Calcium Phosphorus Magnesium Iron TIBC % Saturation Transferrin Total Bilirubin AST Alkaline Phosphatase Total Protein Albumin Prealbumin Amylase Lipase Procalcitonin Urine Protein Urine Blood Ur Leukocyte Esterase Urine RBC Urine WBC Amorphous Sediment Urine Bacteria Hyaline Casts Urine Mucus Crossmatch 08/13/21 08/14/21 08/14/21 20:55 07:00 07:00 WBC 13.6 H RBC 2.78 L Hgb 8.6 L Hct 29.2 L MCV 104.8 H MCHC 29.6 L RDW 20.9 H Plt Count Neutrophils # 12.4 H Neutrophils # (Manual) Lymphocytes # 0.3 L Lymphocytes # (Manual) Monocytes # (Manual) Nucleated RBCs Macrocytosis Marked A PT INR APTT Fibrinogen ABG pH ABG pCO2 ABG pO2 ABG HCO3 ABG Total CO2 ABG O2 Saturation ABG Hematocrit ABG Ionized Calcium Hemoglobin Sodium 136 L Potassium Chloride Carbon Dioxide BUN 119 H* Creatinine 2.60 H Glucose 108 H POC Glucose (mg/dL) 201 H Calcium 8.1 L Phosphorus Magnesium Iron TIBC % Saturation Transferrin Total Bilirubin AST Alkaline Phosphatase Total Protein Albumin Prealbumin Amylase Lipase Procalcitonin Urine Protein Urine Blood Ur Leukocyte Esterase Urine RBC Urine WBC Amorphous Sediment Urine Bacteria Hyaline Casts Urine Mucus Crossmatch 08/14/21 08/14/21 08/14/21 07:00 07:02 11:06 WBC RBC Hgb Hct MCV MCHC RDW Plt Count Neutrophils # Neutrophils # (Manual) Lymphocytes # Lymphocytes # (Manual) Monocytes # (Manual) Nucleated RBCs Macrocytosis PT 20.1 H INR 2.0 H APTT Fibrinogen ABG pH ABG pCO2 ABG pO2 ABG HCO3 ABG Total CO2 ABG O2 Saturation ABG Hematocrit ABG Ionized Calcium Hemoglobin Sodium Potassium Chloride Carbon Dioxide BUN Creatinine Glucose POC Glucose (mg/dL) 132 H 141 H Calcium Phosphorus Magnesium Iron TIBC % Saturation Transferrin Total Bilirubin AST Alkaline Phosphatase Total Protein Albumin Prealbumin Amylase Lipase Procalcitonin Urine Protein Urine Blood Ur Leukocyte Esterase Urine RBC Urine WBC Amorphous Sediment Urine Bacteria Hyaline Casts Urine Mucus Crossmatch 08/14/21 08/14/21 08/15/21 16:43 20:22 06:09 WBC RBC 2.90 L Hgb 8.8 L Hct 30.5 L MCV 105.3 H MCHC 28.7 L RDW 20.4 H Plt Count Neutrophils # Neutrophils # (Manual) Lymphocytes # 0.2 L Lymphocytes # (Manual) Monocytes # (Manual) Nucleated RBCs Macrocytosis Marked A PT INR APTT Fibrinogen ABG pH ABG pCO2 ABG pO2 ABG HCO3 ABG Total CO2 ABG O2 Saturation ABG Hematocrit ABG Ionized Calcium Hemoglobin Sodium Potassium Chloride Carbon Dioxide BUN Creatinine Glucose POC Glucose (mg/dL) 158 H 254 H Calcium Phosphorus Magnesium Iron TIBC % Saturation Transferrin Total Bilirubin AST Alkaline Phosphatase Total Protein Albumin Prealbumin Amylase Lipase Procalcitonin Urine Protein Urine Blood Ur Leukocyte Esterase Urine RBC Urine WBC Amorphous Sediment Urine Bacteria Hyaline Casts Urine Mucus Crossmatch 08/15/21 08/15/21 08/15/21 06:09 06:09 07:08 WBC RBC Hgb Hct MCV MCHC RDW Plt Count Neutrophils # Neutrophils # (Manual) Lymphocytes # Lymphocytes # (Manual) Monocytes # (Manual) Nucleated RBCs Macrocytosis PT 21.9 H INR 2.2 H APTT Fibrinogen ABG pH ABG pCO2 ABG pO2 ABG HCO3 ABG Total CO2 ABG O2 Saturation ABG Hematocrit ABG Ionized Calcium Hemoglobin Sodium Potassium Chloride Carbon Dioxide BUN 125 H* Creatinine 2.74 H Glucose 169 H POC Glucose (mg/dL) 199 H Calcium 8.3 L Phosphorus Magnesium 3.4 H Iron TIBC % Saturation Transferrin Total Bilirubin AST Alkaline Phosphatase Total Protein 5.8 L Albumin 3.0 L Prealbumin Amylase Lipase Procalcitonin Urine Protein Urine Blood Ur Leukocyte Esterase Urine RBC Urine WBC Amorphous Sediment Urine Bacteria Hyaline Casts Urine Mucus Crossmatch 08/15/21 08/15/21 08/15/21 11:58 17:27 21:12 WBC RBC Hgb Hct MCV MCHC RDW Plt Count Neutrophils # Neutrophils # (Manual) Lymphocytes # Lymphocytes # (Manual) Monocytes # (Manual) Nucleated RBCs Macrocytosis PT INR APTT Fibrinogen ABG pH ABG pCO2 ABG pO2 ABG HCO3 ABG Total CO2 ABG O2 Saturation ABG Hematocrit ABG Ionized Calcium Hemoglobin Sodium Potassium Chloride Carbon Dioxide BUN Creatinine Glucose POC Glucose (mg/dL) 279 H 289 H 419 H Calcium Phosphorus Magnesium Iron TIBC % Saturation Transferrin Total Bilirubin AST Alkaline Phosphatase Total Protein Albumin Prealbumin Amylase Lipase Procalcitonin Urine Protein Urine Blood Ur Leukocyte Esterase Urine RBC Urine WBC Amorphous Sediment Urine Bacteria Hyaline Casts Urine Mucus Crossmatch 08/15/21 08/16/21 08/16/21 21:15 05:31 05:31 WBC 13.7 H RBC 2.87 L Hgb 8.9 L Hct 30.7 L MCV 106.9 H MCHC 29.0 L RDW 21.3 H Plt Count Neutrophils # 12.7 H Neutrophils # (Manual) Lymphocytes # 0.2 L Lymphocytes # (Manual) Monocytes # (Manual) Nucleated RBCs Macrocytosis Marked A PT 25.2 H INR 2.5 H APTT Fibrinogen ABG pH ABG pCO2 ABG pO2 ABG HCO3 ABG Total CO2 ABG O2 Saturation ABG Hematocrit ABG Ionized Calcium Hemoglobin Sodium Potassium Chloride Carbon Dioxide BUN Creatinine Glucose POC Glucose (mg/dL) 329 H Calcium Phosphorus Magnesium Iron TIBC % Saturation Transferrin Total Bilirubin AST Alkaline Phosphatase Total Protein Albumin Prealbumin Amylase Lipase Procalcitonin Urine Protein Urine Blood Ur Leukocyte Esterase Urine RBC Urine WBC Amorphous Sediment Urine Bacteria Hyaline Casts Urine Mucus Crossmatch 08/16/21 08/16/21 08/16/21 05:31 06:56 11:53 WBC RBC Hgb Hct MCV MCHC RDW Plt Count Neutrophils # Neutrophils # (Manual) Lymphocytes # Lymphocytes # (Manual) Monocytes # (Manual) Nucleated RBCs Macrocytosis PT INR APTT Fibrinogen ABG pH ABG pCO2 ABG pO2 ABG HCO3 ABG Total CO2 ABG O2 Saturation ABG Hematocrit ABG Ionized Calcium Hemoglobin Sodium Potassium Chloride Carbon Dioxide BUN 133 H* Creatinine 2.99 H Glucose 157 H POC Glucose (mg/dL) 176 H 195 H Calcium Phosphorus Magnesium 3.4 H Iron TIBC % Saturation Transferrin Total Bilirubin AST Alkaline Phosphatase Total Protein 5.8 L Albumin 3.0 L Prealbumin Amylase Lipase Procalcitonin Urine Protein Urine Blood Ur Leukocyte Esterase Urine RBC Urine WBC Amorphous Sediment Urine Bacteria Hyaline Casts Urine Mucus Crossmatch 08/16/21 08/16/21 08/16/21 16:02 20:55 23:32 WBC RBC Hgb Hct MCV MCHC RDW Plt Count Neutrophils # Neutrophils # (Manual) Lymphocytes # Lymphocytes # (Manual) Monocytes # (Manual) Nucleated RBCs Macrocytosis PT INR APTT Fibrinogen ABG pH ABG pCO2 ABG pO2 ABG HCO3 ABG Total CO2 ABG O2 Saturation ABG Hematocrit ABG Ionized Calcium Hemoglobin Sodium Potassium Chloride Carbon Dioxide BUN Creatinine Glucose POC Glucose (mg/dL) 184 H 168 H 161 H Calcium Phosphorus Magnesium Iron TIBC % Saturation Transferrin Total Bilirubin AST Alkaline Phosphatase Total Protein Albumin Prealbumin Amylase Lipase Procalcitonin Urine Protein Urine Blood Ur Leukocyte Esterase Urine RBC Urine WBC Amorphous Sediment Urine Bacteria Hyaline Casts Urine Mucus Crossmatch 08/17/21 08/17/21 08/17/21 05:51 05:51 05:51 WBC 13.1 H RBC 2.91 L Hgb 8.8 L Hct 31.0 L MCV 106.6 H MCHC 28.2 L RDW 21.5 H Plt Count Neutrophils # 11.8 H Neutrophils # (Manual) Lymphocytes # 0.3 L Lymphocytes # (Manual) Monocytes # (Manual) Nucleated RBCs Macrocytosis Marked A PT 25.9 H INR 2.6 H APTT Fibrinogen ABG pH ABG pCO2 ABG pO2 ABG HCO3 ABG Total CO2 ABG O2 Saturation ABG Hematocrit ABG Ionized Calcium Hemoglobin Sodium Potassium Chloride Carbon Dioxide BUN 145 H* Creatinine 2.98 H Glucose POC Glucose (mg/dL) Calcium Phosphorus Magnesium Iron TIBC % Saturation Transferrin Total Bilirubin AST Alkaline Phosphatase Total Protein 5.7 L Albumin 2.8 L Prealbumin Amylase Lipase Procalcitonin Urine Protein Urine Blood Ur Leukocyte Esterase Urine RBC Urine WBC Amorphous Sediment Urine Bacteria Hyaline Casts Urine Mucus Crossmatch 08/17/21 08/17/21 08/18/21 16:47 20:53 05:35 WBC RBC Hgb Hct MCV MCHC RDW Plt Count Neutrophils # Neutrophils # (Manual) Lymphocytes # Lymphocytes # (Manual) Monocytes # (Manual) Nucleated RBCs Macrocytosis PT INR APTT Fibrinogen ABG pH ABG pCO2 ABG pO2 ABG HCO3 ABG Total CO2 ABG O2 Saturation ABG Hematocrit ABG Ionized Calcium Hemoglobin Sodium Potassium Chloride 109 H Carbon Dioxide BUN 132 H* Creatinine 2.66 H Glucose 39 L* POC Glucose (mg/dL) 144 H 102 H Calcium 8.2 L Phosphorus Magnesium 3.3 H Iron TIBC % Saturation Transferrin Total Bilirubin AST Alkaline Phosphatase Total Protein 5.4 L Albumin 2.7 L Prealbumin 12.3 L Amylase Lipase Procalcitonin Urine Protein Urine Blood Ur Leukocyte Esterase Urine RBC Urine WBC Amorphous Sediment Urine Bacteria Hyaline Casts Urine Mucus Crossmatch 08/18/21 08/18/21 08/18/21 05:35 05:35 06:22 WBC 11.3 H RBC 2.90 L Hgb 9.0 L Hct 30.9 L MCV 106.8 H MCHC 29.2 L RDW 21.1 H Plt Count 145 L Neutrophils # 10.3 H Neutrophils # (Manual) Lymphocytes # 0.3 L Lymphocytes # (Manual) Monocytes # (Manual) Nucleated RBCs Macrocytosis Marked A PT 23.4 H INR 2.3 H APTT Fibrinogen ABG pH ABG pCO2 ABG pO2 ABG HCO3 ABG Total CO2 ABG O2 Saturation ABG Hematocrit ABG Ionized Calcium Hemoglobin Sodium Potassium Chloride Carbon Dioxide BUN Creatinine Glucose POC Glucose (mg/dL) 49 L Calcium Phosphorus Magnesium Iron TIBC % Saturation Transferrin Total Bilirubin AST Alkaline Phosphatase Total Protein Albumin Prealbumin Amylase Lipase Procalcitonin Urine Protein Urine Blood Ur Leukocyte Esterase Urine RBC Urine WBC Amorphous Sediment Urine Bacteria Hyaline Casts Urine Mucus Crossmatch 08/18/21 08/18/21 08/18/21 06:46 11:38 17:43 WBC RBC Hgb Hct MCV MCHC RDW Plt Count Neutrophils # Neutrophils # (Manual) Lymphocytes # Lymphocytes # (Manual) Monocytes # (Manual) Nucleated RBCs Macrocytosis PT INR APTT Fibrinogen ABG pH ABG pCO2 ABG pO2 ABG HCO3 ABG Total CO2 ABG O2 Saturation ABG Hematocrit ABG Ionized Calcium Hemoglobin Sodium Potassium Chloride Carbon Dioxide BUN Creatinine Glucose POC Glucose (mg/dL) 161 H 138 H 249 H Calcium Phosphorus Magnesium Iron TIBC % Saturation Transferrin Total Bilirubin AST Alkaline Phosphatase Total Protein Albumin Prealbumin Amylase Lipase Procalcitonin Urine Protein Urine Blood Ur Leukocyte Esterase Urine RBC Urine WBC Amorphous Sediment Urine Bacteria Hyaline Casts Urine Mucus Crossmatch 08/18/21 08/19/21 08/19/21 20:16 05:30 05:30 WBC RBC 2.87 L Hgb 8.9 L Hct 31.5 L MCV 109.8 H MCHC 28.3 L RDW 21.2 H Plt Count 134 L Neutrophils # 9.6 H Neutrophils # (Manual) Lymphocytes # 0.2 L Lymphocytes # (Manual) Monocytes # (Manual) Nucleated RBCs Macrocytosis Marked A PT 22.2 H INR 2.2 H APTT Fibrinogen ABG pH ABG pCO2 ABG pO2 ABG HCO3 ABG Total CO2 ABG O2 Saturation ABG Hematocrit ABG Ionized Calcium Hemoglobin Sodium Potassium Chloride Carbon Dioxide BUN Creatinine Glucose POC Glucose (mg/dL) 270 H Calcium Phosphorus Magnesium Iron TIBC % Saturation Transferrin Total Bilirubin AST Alkaline Phosphatase Total Protein Albumin Prealbumin Amylase Lipase Procalcitonin Urine Protein Urine Blood Ur Leukocyte Esterase Urine RBC Urine WBC Amorphous Sediment Urine Bacteria Hyaline Casts Urine Mucus Crossmatch 08/19/21 08/19/21 08/19/21 05:30 06:33 11:09 WBC RBC Hgb Hct MCV MCHC RDW Plt Count Neutrophils # Neutrophils # (Manual) Lymphocytes # Lymphocytes # (Manual) Monocytes # (Manual) Nucleated RBCs Macrocytosis PT INR APTT Fibrinogen ABG pH ABG pCO2 ABG pO2 ABG HCO3 ABG Total CO2 ABG O2 Saturation ABG Hematocrit ABG Ionized Calcium Hemoglobin Sodium 148 H Potassium Chloride 114 H Carbon Dioxide BUN 119 H* Creatinine 2.41 H Glucose 133 H POC Glucose (mg/dL) 162 H 192 H Calcium 8.3 L Phosphorus Magnesium Iron TIBC % Saturation Transferrin Total Bilirubin AST Alkaline Phosphatase Total Protein 5.6 L Albumin 2.8 L Prealbumin Amylase Lipase Procalcitonin Urine Protein Urine Blood Ur Leukocyte Esterase Urine RBC Urine WBC Amorphous Sediment Urine Bacteria Hyaline Casts Urine Mucus Crossmatch Assessment and Plan Assessment: * Altered mental status, most likely due to metabolic encephalopathy * Acute on chronic renal failure * Anemia * Status post mitral valve replacement, 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 * Permanent pacemaker Plan: * Patient or his denies any signs of stroke. Patient's examination is nonfocal as well. His mentation is decreased likely because of metabolic encephalopathy due to the reasons mentioned above. No other neurological workup indicated at this time. * 2-D echo from 08/01/2021 shows normal left ventricular size. Moderate concentric LVH. Left ventricular systolic function is low normal with EF between 50-55%. Septal flattening in diastole insistently which is consistent with right ventricular pressure and volume overload. Right ventricle is severely enlarged. Normally functioning bioprosthetic mitral valve. Moderate to severe tricuspid regurgitation present. Moderate to severe pulmonary hypertension. * Carotid Doppler revealed no hemodynamically significant stenosis in either ICA. Antegrade flow in both vertebral arteries. * Patient's hemoglobin A1c 5.8 on 07/02/2021. * Lipid panel with cholesterol 97, LDL 40, HDL 45 and triglycerides 56 on 0 07/02/2021. Continue statins. * TSH is normal 4.81. We will check B12, folate. * Patient has history of atrial fibrillation. Patient's anticoagulation is currently on hold. Patient is undergoing PEG tube placement in the morning. Patient on heparin subcu and aspirin 81 mg. Consider bridging with Lovenox pending PEG tube placement. Discussed with patient's nurse in detail. * Neurology will follow clinically. Thank you for the consult. Time with Patient: Greater than 30 (Greater than 50% time spent with [id number] discussion.)
[2021-08-19] MEDS: HEPARIN SODIUM,PORCINE/PF 5,000 UNIT/0.5 ML SYRINGE SQ SCH ×2 (16:55→23:50)
[2021-08-19 17:09] LABS: Glucose,Whole Blood 209 mg/dL (75-99)
[2021-08-19] MEDS: ATORVASTATIN 40 MG TAB PO SCH (20:02)
[2021-08-19] MEDS: CALCIUM ACETATE 667 MG TAB PO SCH (20:03)
[2021-08-19 20:09] LABS: Glucose,Whole Blood 92 mg/dL (75-99)
[2021-08-19] MEDS ORDERED: MIRTAZAPINE 15 MG TAB PO SCH (21:00)
[2021-08-20 06:25] LABS: Glucose,Whole Blood 161 mg/dL (75-99)
[2021-08-20] MEDS: INSULIN ASPART (NovoLOG) 100 UNIT/ML VIAL SQ SCH ×7 (07:02→21:37)
[2021-08-20] MEDS: PANTOPRAZOLE 40 MG TABLET PO SCH (07:02)
--- NOTE | 2021-08-20 07:15 | XR ---
EXAMINATION TYPE: XR chest 1V portable DATE OF EXAM: 08/20/2021 HISTORY: Shortness of breath. COMPARISON: 08/19/2021 TECHNIQUE: Single view of the chest is submitted. FINDINGS: Demonstrated are scattered senescent parenchymal change. Persistent pulmonary venous congestion with the right-sided pleural effusion and pleural parenchymal density with cardiomegaly. Hilar and mediastinal structures are within normal limits. Degenerative changes are seen of the dorsal spine. IMPRESSION: 1. Able chest
[2021-08-20] MEDS: IPRATROPIUM-ALBUTEROL 3 ML NEB INHALATION SCH ×4 (07:46→20:19)
[2021-08-20] MEDS: SYMBICORT 160-4.5 MCG INHALER INHALATION SCH ×2 (07:47→20:19)
[2021-08-20 07:51] LABS: INR 1.9 (<1.2); Prothrombin Time 19.2 sec (9.0-12.0)
--- NOTE | 2021-08-20 08:10 | P.PN ---
Subjective Progress Note Date: 08/20/21 The patient is seen today 08/12/2021 in follow-up in the intensive care unit. He is postoperative day #15 above mitral valve replacement, tricuspid valve repair and coronary artery bypass grafting times one. He had had issues with recurrent right-sided pleural effusion and is status post right-sided pigtail catheter in place. Proximal main 400 ML's of serosanguineous fluid drained overnight. Left-sided chest tube remains in place with an another 200 ML's of serosanguineous fluid drained. He is requiring 6 L of high flow nasal cannula to maintain O2 saturations in the 90s. Chest x-ray shows improvement in the pleural effusions. There is still bilateral opacities and some interstitial changes consistent with congestive heart failure. Moderate cardiomegaly. He is alert and oriented today. He still has complaints of a sore mouth. His appetite has been poor. Current cardiac rhythm is paced. Urine cultures revealed no growth. Blood cultures reveal no growth. Sputum culture from 10/2021 was positive for Klebsiella pneumoniae. White count 13.2. Hemoglobin 8.5. Platelets 261. Sodium 133. Potassium 4.8. Bicarb 21. BUN 119. Creatinine 2.80. Glucose 138. He is status post 2 units of packed red blood cells, 4 units of fresh frozen plasma and 2 units of platelets this admission. He is continued on nystatin swish and swallow, bronchodilators, heparin for DVT prophylaxis. Remains on Bumex. Currently in a -125 ML balance. Patient is seen today 08/13/2021 in follow-up in the intensive care unit. He is postoperative day #16. He is currently resting fairly comfortably in bed. He is requiring 10 L high flow nasal cannula to maintain O2 saturations in the low 90s. His bilateral chest tubes have been removed. This morning chest x-ray revealed loculated right costophrenic angle pneumothorax. Minimal right apical pneumothorax. Evidence of cardiomegaly with prominent pulmonary vascular congestion. Previous sputum had been positive for Klebsiella pneumoniae. White count 13.8. Hemoglobin 8.7. Platelets 242. INR 2.0. Sodium 134. Potassium 5.2. BUN 126. Creatinine 2.4. He is continued on DuoNeb inhalations, IV Bumex, antibiotics in the form of cefepime. He'll also be trialed on BiPAP 04/07 and titrate the FiO2. He is continued on Protonix for GI prophylaxis. His appetite has improved on a pured diet. He seems to tolerate that better. Less mouth discomfort. The patient is seen today 08/19/2021 in follow-up in intensive care unit. He is currently sitting up in a chair at the bedside. Awake and alert in no acute distress. Skin of the brain revealed chronic ischemic changes and scattered chronic infarcts. 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 No intracranial hemorrhage or gross acute cortical infarct. He is still maint aining O2 saturations in the 90s on 3 L/m per nasal cannula. He is pulling approximately 1000 ML's on his incentive spirometer. Chest x-ray continues to show diffuse increased lung markings in the right mid and lower lung field. Small right pleural effusion is present. Mild left basilar infiltrate. Pleurx catheter drained by CT services for 250 mL today. He is status post 2 units of packed red blood cells, 4 units of fresh frozen plasma, 2 units of platelets this admission. Sputum culture had been previously positive for Klebsiella pneumonia. White count 10.6. Hemoglobin 8.9. Platelets 134. INR 2.2. Sodium 148. Potassium 3.9. Chloride 114. Bicarb 26. BUN 119. Creatinine 2.41. Glucose 133. He continues to have poor oral intake. He continues to eat less than 50% of his meals. The plan is for possible PEG tube placement. He is continued on DuoNeb inhalations, Symbicort inhalations. Initiated back on his Zoloft. The patient is seen today 08/20/2021 in follow-up in the intensive care unit. He is awake and alert in no acute distress. He is maintaining O2 saturations in the 90s on 6 L high flow nasal cannula. Chest x-ray continues to show persistent pulmonary vascular congestion with right-sided pleural effusion and pleural parenchymal density with cardiomegaly. Hilar mediastinal structures are within normal limits. He is currently sitting up in the recliner at the bedside. He did utilize BiPAP last night 04/07 and 50% FiO2. He has D5W running at 75 ML's per hour. PEG tube was not placed yesterday due to elevated INR. INR today is 1.9. Blood glucose 161. The rest of the labs are pending. He is continued on DuoNeb inhalations, Symbicort. Encouraged to continue to work well with the incentive spirometer. He has been seen by psychiatric services for questionable depression. He is continued on Zoloft. Remeron was added at bedtime. He is also on Megace to try to improve his appetite. Heparin for DVT prophylaxis. Objective - Vital Signs Vital signs: Vital Signs Temp 97.8 F 08/20/21 04:00 Pulse 75 08/20/21 07:59 Resp 48 H 08/20/21 07:00 BP 112/66 08/20/21 07:00 Pulse Ox 99 08/20/21 07:00 Intake & Output 08/19/21 08/20/21 08/20/21 18:59 06:59 18:59 Intake Total 675 825 75 Output Total 580 615 50 Balance 95 210 25 Weight 67.2 kg Intake: IV 375 825 75 Dextrose 5% in Water 1, 375 825 75 000 ml @ 75 mls/hr IV . [id number] PHIL Rx#:[id number] Intake, IV Titration 300 Amount Dextrose 5% in Water 1, 300 000 ml @ 75 mls/hr IV . [id number] PHIL Rx#:[id number] Output: Drainage [address] 0 Right Posterior 0 Urine 580 615 50 Other: Voiding Method Indwelling Catheter Indwelling Catheter ABP, PAP, CO, CI - Last Documented Arterial Blood Pressure 119/35 Pulmonary Artery Pressure 35/28 Cardiac Output 5 Cardiac Index 2.7 - Exam CONSTITUTIONAL: A very pleasant frail, cachectic 81-year-old male patient, sitting up to the bedside chair in the intensive care unit, comfortable, cooperative, no respiratory distress. Currently on 6 L high flow nasal cannula. HEENT: Neck is supple, no JVD, no lymphadenopathy. RESPIRATORY: Lungs sounds with bilateral scattered rhonchi, diminished bilateral bases, right greater than left. Respirations are symmetrical and nonlabored. Able to achieve more than 1000 MLS on the incentive spirometer. Bilateral chest tubes have been removed. Pleurx catheter remains in place on the right. CARDIOVASCULAR: Regular rhythm and rate. S1 and S2 present, negative for S3, gallop or murmur. Sternum is stable. Palpable peripheral pulses bilaterally. No calf pain or tenderness noted. Heart hugger in place with patient demonstrating appropriate use with encouragement. Knee-high SUMI hose and sequential compression devices in place to his bilateral lower extremities. Bedside telemetry showing paced rhythm at 60 BPM. GASTROINTESTINAL: Abdomen soft, nontender, distended. Active bowel sounds present 4 quadrants. Tolerating diet but poor appetite. No guarding or rigidity. GENITOURINARY: Continues to void. Urine output is adequate for now. INTEGUMENTARY: Skin is warm and dry with no evidence of clubbing or cyanosis. Midline sternal incision clean dry and well approximated, covered with dry intact dressing. Left lower extremity EVH site well approximated without redness or drainage. NEUROLOGIC: Cranial nerves II through XII intact. No focal deficits. MUSKULOSKELETAL: Able to move all extremities, strength equal bilaterally, generalized weakness. PSYCHIATRIC: Alert and oriented 3, appropriate affect. - Labs CBC & Chem 7: 08/19/21 05:30 08/19/21 05:30 Labs: Abnormal Lab Results - Last 24 Hours (Table) 08/19/21 08/19/21 08/20/21 Range/Units 11:09 17:06 06:23 PT (9.0-12.0) sec INR (<1.2) POC Glucose (mg/dL) 192 H 209 H 161 H (75-99) mg/dL 08/20/21 Range/Units 07:09 PT 19.2 H (9.0-12.0) sec INR 1.9 H (<1.2) POC Glucose (mg/dL) (75-99) mg/dL Assessment and Plan Assessment: 1 Mitral valve regurgitation, status post mitral valve replacement, tricuspid valve regurgitation, status post tricuspid valve repair, coronary artery disease, status post 1 vessel CABG 2 Continued right-sided pleural effusion, Pleurx catheter in place 3 Poor oral intake, plan is for possible PEG tube placement 4 Benign essential hypertension 5 Chronic atrial fibrillation 6 History of sick sinus syndrome and previous pacemaker placement in 2017 7 Chronic systolic congestive heart failure 8 Atrial septal defect post closure 9 Acute on chronic renal failure, baseline creatinine 1.6-1.7. Creatinine 2.4 10 Obstructive sleep apnea syndrome 11 Chronic and recurrent right-sided pleural effusion requiring multiple thoracentesis procedures and now he continues to have a Pleurx catheter in place. 12 Postoperative acute blood loss anemia and thrombocytopenia, expected 13 Positive sputum for Klebsiella pneumonia, suspect Klebsiella pneumonia tr acheobronchitis, completed cefepime Plan: The patient was seen and evaluated Chest x-ray reviewed, labs pending Currently on 6 L high flow nasal cannula Continues incentive spirometer, continued bronchodilators PEG tube placement pending INR Continue to titrate his FiO2 as tolerated Increase his activity as tolerated We will continue to follow I have personally seen and examined the patient, performed the documentation and the assessment and plan as written. Number of minutes spent on the visit: 10.
[2021-08-20 08:16] LABS: Albumin 2.7 g/dL (3.5-5.0); Calcium 8.4 mg/dL (8.4-10.2); Potassium 4.2 mmol/L (3.5-5.1); Total Bilirubin 0.9 mg/dL (0.2-1.3); Total Protein 5.7 g/dL (6.3-8.2)
[2021-08-20] MEDS: HEPARIN SODIUM,PORCINE/PF 5,000 UNIT/0.5 ML SYRINGE SQ SCH ×2 (08:35→15:01)
[2021-08-20 08:40] LABS: Anisocytosis Moderate; Basophils % (A) 0 %; Eosinophils # (A) 0.1 k/uL (0-0.7); Eosinophils % (A) 1 %; HCT 32.5 % (39.0-53.0); HGB 9.3 gm/dL (13.0-17.5); Hypochromasia Marked; Lymphocytes # (A) 0.2 k/uL (1.0-4.8); Lymphocytes % (A) 2 %; MCH 31.3 pg (25.0-35.0); MCHC 28.7 g/dL (31.0-37.0); MCV 109.2 fL (80.0-100.0); Macrocytosis Marked; Mean Platelet Volume 9.9; Monocytes # (A) 0.4 k/uL (0-1.0); Monocytes % (A) 4 %; Neutrophils # (A) 9.1 k/uL (1.3-7.7); Neutrophils % (A) 92 %; Platelet Count 119 k/uL (150-450); Poikilocytosis Slight; RBC 2.97 m/uL (4.30-5.90); RDW 20.8 % (11.5-15.5); WBC 9.9 k/uL (3.8-10.6)
[2021-08-20] MEDS: CHLORHEXIDINE GLUCONATE 15 ML CUP MUCOUS MEM SCH ×2 (08:41→21:14)
[2021-08-20] MEDS: TAMSULOSIN 0.4 MG CAP.ER.24H PO SCH (08:42)
[2021-08-20] MEDS: MEGESTROL 400 MG/10 ML CUP PO SCH (08:42)
[2021-08-20] MEDS: ASCORBIC ACID 500 MG TAB PO SCH (08:42)
[2021-08-20] MEDS: FERROUS SULFATE 325 MG TAB PO SCH (08:42)
[2021-08-20] MEDS: ASPIRIN 81 MG PO SCH (08:43)
[2021-08-20] MEDS: MAG HYDROX/AL HYDROX/SIMETH 30 ML, LIDOCAINE VISCOUS 2% 30 ML, NYSTATIN 100,000 UNIT/ML... PO SCH ×9 (08:44→21:40)
[2021-08-20] MEDS: SERTRALINE 100 MG TAB PO SCH (09:56)
--- NOTE | 2021-08-20 10:12 | P.PN ---
Subjective Progress Note Date: 08/20/21 Principal diagnosis: Mitral valve regurgitation, tricuspid valve regurgitation, and coronary artery disease. Past medical history significant for coronary artery disease with prev ious myocardial infarction and PCI, hypertension, hyperlipidemia, chronic persistent atrial fibrillation on Coumadin for anticoagulation as an outpatient, status post cardioversion, sick sinus syndrome, status post [facility] permanent pacemaker placement in 2016, chronic systolic heart failure, atrial septal defect status post closure, history of MitraClip in 2019, chronic renal insufficiency, remote history of tobacco dependence, restrictive lung disease, obstructive sleep apnea, recurrent right pleural effusions with history of 4 previous thoracentesis, remote history of pneumonia, history of prostate cancer with a PSA of 16.2 in May 2019 and a family history of premature coronary artery disease. Preoperative nasal screening positive for MSSA, treated. POD #23 mitral valve replacement with 31 mm Mosaic porcine valve prosthesis, tricuspid valve repair with 30 mm MC3 band, coronary artery bypass grafting 1 with reverse greater saphenous vein graft to the obtuse marginal coronary artery, endovascular vein harvest of the left greater saphenous vein, epi-aortic ultrasound, closure of the left atrial appendage, closure of atrial septal defect. Postoperative acute blood loss anemia and thrombocytopenia, expected given hemodilution and cardiopulmonary bypass pump. Coagulopathy, unexpected, resolved. Right pleural effusion, expected due to his history of preoperative right p leural effusion with history of 4 previous thoracentesis. Status post placement of right-sided pigtail catheter by interventional radiology, status post right sided Pleurx catheter placement. Leukocytosis, afebrile, sputum positive for Klebsiella pneumoniae. Altered mental status after surgery due to delirium from lack of sleep, resolved Urinary retention, expected given his history of prostate cancer, requiring placement of Cortes catheter. The patient was seen and examined today 08/20/2021 at his bedside in the intensive care unit. The patient is currently sitting up to the bedside chair, is awake, alert and oriented 3 and is in no acute distress. He reports he had an excellent to sleep last night for the first time in a long time. Denies any complaints of shortness of breath or surgical type pain. Continues to complain of a sore mouth mainly to his tip of his tongue and also is complaining of lack of appetite. Oxygen saturation are 94-95% on 3 L nasal cannula and he is ach ieving 1000 mL on his incentive spirometry. Bedside telemetry showing V paced rhythm heart rate 70 bpm. He remains hemodynamically stable and is currently on no inotropic or pressor support. The patient reports he ambulated in the intensive care unit hallway with standby assistance from physical therapy and nursing staff yesterday 2. He has been nothing by mouth after midnight for potential placement of PEG tube. Laboratory and chest x-ray results reviewed. His right Pleurx catheter was drained for 250 mL of thin serosanguineous drainage yesterday. He was seen by psychiatry yesterday, he is continued on Zoloft 100 mg by mouth daily and was started on Remeron 15 mg by mouth daily at bedtime. Objective - Vital Signs Vital signs: Vital Signs Temp 97.7 F 08/20/21 08:00 Pulse 73 08/20/21 09:00 Resp 33 H 08/20/21 09:00 BP 112/84 08/20/21 09:00 Pulse Ox 92 L 08/20/21 09:00 Intake & Output 08/19/21 08/20/21 08/20/21 18:59 06:59 18:59 Intake Total 675 825 225 Output Total 580 615 150 Balance 95 210 75 Weight 67.2 kg Intake: IV 375 825 225 Dextrose 5% in Water 1, 375 825 225 000 ml @ 75 mls/hr IV . [id number] PHIL Rx#:[id number] Intake, IV Titration 300 Amount Dextrose 5% in Water 1, 300 000 ml @ 75 mls/hr IV . [id number] PHIL Rx#:[id number] Output: Drainage [address] 0 0 Right Posterior 0 0 Urine 580 615 150 Other: Voiding Method Indwelling Catheter Indwelling Catheter ABP, PAP, CO, CI - Last Documented Arterial Blood Pressure 119/35 Pulmonary Artery Pressure 35/28 Cardiac Output 5 Cardiac Index 2.7 - Exam CONSTITUTIONAL: Sitting up to the bedside chair in the intensive care unit, appears comfortable, cooperative, and is in no apparent acute distress. HEENT: Neck is supple, no JVD, no lymphadenopathy. RESPIRATORY: Lungs sounds with few scattered rhonchi throughout, diminished to his bilateral bases right greater than left. Respirations are symmetrical and nonlabored. Currently on 3 L nasal cannula, oxygen saturations 95%. Able to achieve 1000 mL on his incentive spirometry. Strong, loose nonproductive cough. CARDIOVASCULAR: Regular rhythm and rate. S1 and S2 present, negative for S3, gallop or murmur. Sternum is stable. Palpable peripheral pulses bilaterally. No calf pain or tenderness noted. Heart hugger in place with patient demonstrating appropriate use with encouragement. Knee-high SUMI hose and sequential compression devices in place to his bilateral lower extremities. Bedside telemetry showing V paced rhythm heart rate 70 bpm. +1 edema to his bilateral lower extremities. GASTROINTESTINAL: Abdomen soft, nontender, and slightly distended. Active bowel sounds present 4 quadrants. Tolerating diet. No guarding or rigidity. Bowel movement 08/17/2021. GENITOURINARY: Cortes catheter in place for urinary retention. 570 mL of urine output last 8 hours. INTEGUMENTARY: Skin is warm and dry with no evidence of clubbing or cyanosis. Midline sternal incision clean dry and well approximated, covered with dry intact dressing. Left lower extremity EVH site well approximated without redness or drainage. Right sided Pleurx catheter intact with dressing dry, clean and intact. Small scattered ecchymotic areas to his bilateral cheeks to his face. NEUROLOGIC: Cranial nerves II through XII intact. No focal deficits. MUSKULOSKELETAL: Able to move all extremities, strength equal bilaterally, generalized weakness. PSYCHIATRIC: Alert and oriented 3, flat affect. Episodes of restlessness. INVASIVE LINES AND TUBES: Right sided Pleurx catheter. Right chest Pleurx catheter drain for 250 mL of thin serosanguineous drainage yesterday 08/19/2021. - Allied health notes Allied health notes reviewed: nursing - Labs CBC & Chem 7: 08/20/21 07:09 08/20/21 07:09 Labs: Abnormal Lab Results - Last 24 Hours (Table) 08/19/21 08/19/21 08/20/21 Range/Units 11:09 17:06 06:23 RBC (4.30-5.90) m/uL Hgb (13.0-17.5) gm/dL Hct (39.0-53.0) % MCV (80.0-100.0) fL MCHC (31.0-37.0) g/dL RDW (11.5-15.5) % Plt Count (150-450) k/uL Neutrophils # (1.3-7.7) k/uL Lymphocytes # (1.0-4.8) k/uL Macrocytosis PT (9.0-12.0) sec INR (<1.2) Sodium (137-145) mmol/L Chloride (98-107) mmol/L BUN (9-20) mg/dL Creatinine (0.66-1.25) mg/dL Glucose (74-99) mg/dL POC Glucose (mg/dL) 192 H 209 H 161 H (75-99) mg/dL Total Protein (6.3-8.2) g/dL Albumin (3.5-5.0) g/dL 08/20/21 08/20/21 08/20/21 Range/Units 07:09 07:09 07:09 RBC 2.97 L (4.30-5.90) m/uL Hgb 9.3 L (13.0-17.5) gm/dL Hct 32.5 L (39.0-53.0) % MCV 109.2 H (80.0-100.0) fL MCHC 28.7 L (31.0-37.0) g/dL RDW 20.8 H (11.5-15.5) % Plt Count 119 L (150-450) k/uL Neutrophils # 9.1 H (1.3-7.7) k/uL Lymphocytes # 0.2 L (1.0-4.8) k/uL Macrocytosis Marked A PT 19.2 H (9.0-12.0) sec INR 1.9 H (<1.2) Sodium 148 H (137-145) mmol/L Chloride 114 H (98-107) mmol/L BUN 102 H* (9-20) mg/dL Creatinine 2.12 H (0.66-1.25) mg/dL Glucose 152 H (74-99) mg/dL POC Glucose (mg/dL) (75-99) mg/dL Total Protein 5.7 L (6.3-8.2) g/dL Albumin 2.7 L (3.5-5.0) g/dL - Imaging and Cardiology Chest x-ray: report reviewed, image reviewed Assessment and Plan Assessment: 1. Mitral valve regurgitation, history of MitraClip in 2019, status post post mitral valve replacement 2. Tricuspid valve regurgitation, status post tricuspid valve repair 3. Coronary artery disease with previous myocardial infarction and PCI, status post 1 vessel CABG 4. History of hypertension, currently hypotensive on levo and dopamine 5. Chronic atrial fibrillation on Coumadin for anticoagulation status post cardioversion, status post closure of the left atrial appendage 6. Sick sinus syndrome status post [facility] permanent pacemaker placement in 2017 7. Chronic systolic heart failure 8. Atrial septal defect status post closure 9. Chronic kidney disease stage IIIB with a baseline creatinine of 1.6-1.7 10. Previous tobacco dependence 11. Severe restrictive lung disease, preoperative FEV1 47% of predicted 12. Recurrent right-sided pleural effusion, patient had right sided thoracentesis twice in 2019 and twice in 2020, status post right chest pigtail catheter placement by IR, status post right-sided Pleurx catheter placement 13. Obstructive sleep apnea, with home CPAP use 14. Remote history of pneumonia 15. Family history of premature coronary artery disease 16. Postoperative acute blood loss anemia and thrombocytopenia, expected 17. Coagulopathy, unexpected and resolved 18. Leukocytosis, elevated pro-calcitonin, sputum culture positive for Klebsiella pneumoniae 19. Acute kidney injury secondary to ATN, possibly secondary to hypotension 20. Urinary retention, expected given his history of prostate cancer 21. History of prostate cancer Plan: 1. Continue low-dose aspirin, and statin. Continue to hold metoprolol tartrate due to episodes of hypotension. We will restart metoprolol tartrate when able to tolerate. 2. Continue to hold Coumadin today for possible PEG tube placement, continue to monitor daily PT/INR. INR today is 1.9. 3. Wean O2 as tolerated. Encourage incentive spirometry use 10 times every hour while awake. Bronchodilators per pulmonology. 4. Increase activity, ambulate minimum 4 times in the hallway daily. Out of bed for all meals. PT/OT/cardiac rehab following. 5. Will monitor daily labs and chest x-rays. 6. GI/DVT prophylaxis. 7. Insulin management per primary care service. The patient is not diabetic, preoperative hemoglobin A1c 5.8%. 8. Pain control per current medication regimen. Avoid narcotics due to history of delirium postoperatively. 9. Strict accurate intake and output. Daily weights. Continue Cortes catheter for urinary retention. 10. Encourage oral intake, encourage supplements to improve nutrition. Plan is for PEG tube placement today to be performed by Dr. Webber. Once PEG tube has been placed May resume oral intake. 11. Discharge planning in place, anticipate need for subacute facility with rehab. 12. Diuretic management per nephrology. Avoid nephrotoxic agents. 13. More recommendations to follow based on patient's clinical course. Time with Patient: Greater than 30
[2021-08-20] MEDS ORDERED: BUMETANIDE 0.25 MG/ML 4 ML VIAL IVP STA (10:52)
[2021-08-20 11:07] LABS: Glucose,Whole Blood 110 mg/dL (75-99)
[2021-08-20] MEDS: DEXTROSE 5% IN WATER 1,000 ML IV SCH (11:15)
[2021-08-20] MEDS: FOLIC ACID 1 MG TAB PO SCH (11:49)
[2021-08-20] MEDS: THIAMINE 100 MG TAB PO SCH (11:49)
[2021-08-20] MEDS: MULTIVITAMINS, THERA 1 EACH TAB PO SCH (11:49)
[2021-08-20] MEDS ORDERED: MIRTAZAPINE 15 MG TAB PO PRN (11:51)
--- NOTE | 2021-08-20 11:58 | P.PN ---
Progress Note - Text Progress Note Date: 08/20/21 Interval History: Patient was seen today for psychiatric follow up regarding patients depression and amotivation. Patient was seen sitting at the bed to today in his chair. Patients nurse states that patient slept fairly last night however is somewhat tired this morning. Patient was sitting with his . He appeared to be somewhat lethargic and could barely open his eyes. He was attempting to answer questions. He was oriented to place, name and beleived it was august 23 today. He claims that he slept well last night, he states he feels tired now. He is denying depression or anxiety today. He claims that his appetite is still poor. He is denying any Si or HI at this time. Denies any Ah or Vh. not endorsing pranoia. Mental Status Exam: General Appearance: Patient appears to be stated age is somewhat lethargic, pleasant, and cooperative. Patient appears to have fair hygiene and grooming wearing hospital gown with poor eye contact. Behavior: Patient is calmly lying in bed without any agitated behavior. tired Speech: Patient's speech is fluent and nonpressured. Mood/Affect: Patient reports their mood is "ok", affect is congruent Suicidality/Homicidality: Patient denies having any suicidal or homicidal ideation intent or plan. Perceptions: Patient denies any visual hallucinations and denies any auditory hallucinations Though content/process: There is no evidence of any delusional thought content and thought process is linear and goal-directed. [place]. Memory and concentration: AOX3, grossly intact for the purposes of this session Judgment and insight: limited IMPRESSIONS: Depressive disorder unspecified, rule out adjustment disorder versus major depressive disorder PLAN: -At this time patient DOES NOT meet criteria for inpatient psychiatric admission. -Delirium precautions recommended with patient including - avoiding use of narcotics and [employer] sedatives, limit anticholinergic medications when possible, frequent re-orientation, minimize use of restraints, open window shades during the day and close them at night -Would recommend the following medication changes/additions: decrease Remeron 7.5 mg daily at bedtime and change to PRN dosing for sleep. added melatonin 3 mg qhs for sleep. Continue with Zoloft 100 mg daily for mood/anxiety. -it appears that alot of patients behaviors and irritability may be related to patients medical condition, pain, prolonged hospital/icu stay and being pushed too hard by staff and family. May likely be more a defiant stance rather than related to patients mood. -template layout worker to provide patient with outpatient mental health/psychiatry resources for appropriate follow up upon discharge -Communicated plan to patient's nurse and patients -Will sign off at this time however will continue to follow only as needed or if requested -Please contact with any questions.
--- NOTE | 2021-08-20 12:30 | P.PN ---
Subjective Principal diagnosis: Patient is resting comfortably in a chair He does have cough but he looks a lot better than a few days before No chest discomfort other than the incisional pain His breathing is a lot better and a lot less labored On examination Pulse rate in the 70s respirations 24 blood pressure 117/74 mmHg Breath sounds are reduced bilaterally with some crackles at the bases S1 is crisp S2 are soft Soft systolic murmur Impression Mitral regurgitation status post mitral valve replacement Tricuspid regurgitation status post tricuspid valve repair Coronary disease status post coronary artery bypass grafting 1 Persistent atrial fibrillation on warfarin Sick sinus syndrome status post permanent pacemaker in situ Chronic kidney disease with acute kidney injury Anemia secondary to blood loss Plan continue current medications Continue pulmonary toilet and hygiene Continue cardiac medications Objective - Vital Signs Vital signs: Vital Signs Temp 97.7 F 08/20/21 08:00 Pulse 76 08/20/21 11:00 Resp 25 H 08/20/21 11:00 BP 117/74 08/20/21 11:00 Pulse Ox 100 08/20/21 11:00 Intake & Output 08/19/21 08/20/21 08/20/21 18:59 06:59 18:59 Intake Total 675 825 450 Output Total 580 615 365 Balance 95 210 85 Weight 67.2 kg 67.2 kg Intake: IV 375 825 450 Dextrose 5% in Water 1, 375 825 450 000 ml @ 75 mls/hr IV . [id number] [facility] Rx#:[id number] Intake, IV Titration 300 Amount Dextrose 5% in Water 1, 300 000 ml @ 75 mls/hr IV . [id number] [facility] Rx#:[id number] Output: Drainage [address] 0 0 Right Posterior 0 0 Urine 580 615 365 Other: Voiding Method Indwelling Catheter Indwelling Catheter Indwelling Catheter ABP, PAP, CO, CI - Last Documented Arterial Blood Pressure 119/35 Pulmonary Artery Pressure 35/28 Cardiac Output 5 Cardiac Index 2.7 - Labs CBC & Chem 7: 08/20/21 07:09 08/20/21 07:09 Labs: Abnormal Lab Results - Last 24 Hours (Table) 08/19/21 08/20/21 08/20/21 Range/Units 17:06 06:23 07:09 RBC (4.30-5.90) m/uL Hgb (13.0-17.5) gm/dL Hct (39.0-53.0) % MCV (80.0-100.0) fL MCHC (31.0-37.0) g/dL RDW (11.5-15.5) % Plt Count (150-450) k/uL Neutrophils # (1.3-7.7) k/uL Lymphocytes # (1.0-4.8) k/uL Macrocytosis PT 19.2 H (9.0-12.0) sec INR 1.9 H (<1.2) Sodium (137-145) mmol/L Chloride (98-107) mmol/L BUN (9-20) mg/dL Creatinine (0.66-1.25) mg/dL Glucose (74-99) mg/dL POC Glucose (mg/dL) 209 H 161 H (75-99) mg/dL Total Protein (6.3-8.2) g/dL Albumin (3.5-5.0) g/dL 08/20/21 08/20/21 08/20/21 Range/Units 07:09 07:09 11:05 RBC 2.97 L (4.30-5.90) m/uL Hgb 9.3 L (13.0-17.5) gm/dL Hct 32.5 L (39.0-53.0) % MCV 109.2 H (80.0-100.0) fL MCHC 28.7 L (31.0-37.0) g/dL RDW 20.8 H (11.5-15.5) % Plt Count 119 L (150-450) k/uL Neutrophils # 9.1 H (1.3-7.7) k/uL Lymphocytes # 0.2 L (1.0-4.8) k/uL Macrocytosis Marked A PT (9.0-12.0) sec INR (<1.2) Sodium 148 H (137-145) mmol/L Chloride 114 H (98-107) mmol/L BUN 102 H* (9-20) mg/dL Creatinine 2.12 H (0.66-1.25) mg/dL Glucose 152 H (74-99) mg/dL POC Glucose (mg/dL) 110 H (75-99) mg/dL Total Protein 5.7 L (6.3-8.2) g/dL Albumin 2.7 L (3.5-5.0) g/dL
--- NOTE | 2021-08-20 12:52 | PN ---
PROGRESS NOTE DATE OF SERVICE: 08/20/2021 This 81-year-old gentleman who was admitted with mitral valve replacement also had subacute chronic strokes also bilaterally. The patient was rather confused yesterday after Remeron. Slightly drowsy today. Multiple consultants are following the patient closely. Past medical history reviewed. Review of systems could not be taken; the patient is confused. CURRENT MEDICATIONS: Reviewed. They include Tylenol, DuoNeb. Doses and other medications are reviewed. PHYSICAL EXAMINATION: Pulse is 76, blood pressure 170/74, respiration 25. HEENT: Conjunctivae normal. NECK: No jugular venous distention. CARDIOVASCULAR: S1, S2 muffled. RESPIRATION: Breath sounds diminished at the bases. A few scattered rhonchi. ABDOMEN: Soft. NERVOUS SYSTEM: Diffusely weak. LABS: Reviewed. Hemoglobin 9.3. Other labs reviewed. Creatinine 2.12. ASSESSMENT: 1. Status post mitral valve replacement, tricuspid valve repair and single-vessel graft. 2. Right pleural effusion. 3. Chronic obstructive pulmonary disease. 4. 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 5. Renal insufficiency. 6. Klebsiella pneumoniae. 7. Hypoglycemia. 8. Gait dysfunction. 9. Poor nutrition. RECOMMENDATIONS AND DISCUSSION: I recommend to continue current medications, continue with the monitoring, symptomatic treatment. Otherwise PEG tube is planned today. Patient is still coughing. I would recommend a sputum culture. Most recent chest x-ray, which was reviewed personally by me, showed significant lesions on the right side. We will continue to monitor. I would also recommend bronchodilators. Prognosis guarded. Further recommendations to follow. Discussed with the patient and his at the bedside. Discussed with staff. MMODL / IJN: [id number] /
--- NOTE | 2021-08-20 13:23 | P.PN ---
Subjective Patient is seen for follow-up for acute kidney injury on top of chronic kidney disease. He is s/p mitral valve replacement, tricuspid valve repair and coronary artery bypass grafting 1 on 07/28/2021 Patient is sitting up on a chair. His is present at bedside. No significant complaints 24 hour urine output of 1.35 L. Patient is scheduled for PEG tube placement tomorrow since he has not been eating much. Sodium was elevated at 148 and patient has been started on D5W. BUN and creatinine are further improved today. This morning patient is a bit more lethargic and slightly more short of breath. No other complaints. Scheduled for acute placement later on today. Objective - Vital Signs Vital signs: Vital Signs Temp 97.7 F 08/20/21 08:00 Pulse 76 08/20/21 11:00 Resp 25 H 08/20/21 11:00 BP 117/74 08/20/21 11:00 Pulse Ox 100 08/20/21 11:00 Intake & Output 08/19/21 08/20/21 08/20/21 18:59 06:59 18:59 Intake Total 675 825 450 Output Total 580 615 365 Balance 95 210 85 Weight 67.2 kg 67.2 kg Intake: IV 375 825 450 Dextrose 5% in Water 1, 375 825 450 000 ml @ 75 mls/hr IV . [id number] [facility] Rx#:[id number] Intake, IV Titration 300 Amount Dextrose 5% in Water 1, 300 000 ml @ 75 mls/hr IV . [id number] [facility] Rx#:[id number] Output: Drainage [address] 0 0 Right Posterior 0 0 Urine 580 615 365 Other: Voiding Method Indwelling Catheter Indwelling Catheter Indwelling Catheter ABP, PAP, CO, CI - Last Documented Arterial Blood Pressure 119/35 Pulmonary Artery Pressure 35/28 Cardiac Output 5 Cardiac Index 2.7 - Exam Patient is awake comfortable. Not in any acute distress Examination of the heart S1 and S2 Examination lungs bilateral breath sounds heard, decreased breath sounds at the bases, occasional crackles Abdomen is soft Examination lower extremity shows trace edema bilateral lower extremities improved from 2 weeks ago [employer] exam grossly intact - Labs CBC & Chem 7: 08/20/21 07:09 08/20/21 07:09 Labs: Abnormal Lab Results - Last 24 Hours (Table) 08/19/21 08/20/21 08/20/21 Range/Units 17:06 06:23 07:09 RBC (4.30-5.90) m/uL Hgb (13.0-17.5) gm/dL Hct (39.0-53.0) % MCV (80.0-100.0) fL MCHC (31.0-37.0) g/dL RDW (11.5-15.5) % Plt Count (150-450) k/uL Neutrophils # (1.3-7.7) k/uL Lymphocytes # (1.0-4.8) k/uL Macrocytosis PT 19.2 H (9.0-12.0) sec INR 1.9 H (<1.2) Sodium (137-145) mmol/L Chloride (98-107) mmol/L BUN (9-20) mg/dL Creatinine (0.66-1.25) mg/dL Glucose (74-99) mg/dL POC Glucose (mg/dL) 209 H 161 H (75-99) mg/dL Total Protein (6.3-8.2) g/dL Albumin (3.5-5.0) g/dL 08/20/21 08/20/21 08/20/21 Range/Units 07:09 07:09 11:05 RBC 2.97 L (4.30-5.90) m/uL Hgb 9.3 L (13.0-17.5) gm/dL Hct 32.5 L (39.0-53.0) % MCV 109.2 H (80.0-100.0) fL MCHC 28.7 L (31.0-37.0) g/dL RDW 20.8 H (11.5-15.5) % Plt Count 119 L (150-450) k/uL Neutrophils # 9.1 H (1.3-7.7) k/uL Lymphocytes # 0.2 L (1.0-4.8) k/uL Macrocytosis Marked A PT (9.0-12.0) sec INR (<1.2) Sodium 148 H (137-145) mmol/L Chloride 114 H (98-107) mmol/L BUN 102 H* (9-20) mg/dL Creatinine 2.12 H (0.66-1.25) mg/dL Glucose 152 H (74-99) mg/dL POC Glucose (mg/dL) 110 H (75-99) mg/dL Total Protein 5.7 L (6.3-8.2) g/dL Albumin 2.7 L (3.5-5.0) g/dL Assessment and Plan Assessment: 1. Acute kidney injury, ATN associated with hemodynamic instability. Patient also has underlying urine retention, currently with indwelling Cortes catheter Urine output is maintained. Renal function continues to improve. 2. 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 Status post mitral valve replacement, tricuspid valve repair and coronary artery bypass surgery 1 4. Volume overload, status post diuresis 4. Metabolic acidosis associated with acute kidney injury currently improved 6. Acute blood loss anemia postop status post packed RBCs transfusion, currently maintained on Aranesp. Status post IV iron 7. CK D mineral bone disorder currently maintained on PhosLo 8. Hypernatremia associated with free water deficit, started on D5W. We will add free water with tube feedings once the PEG tube is placed Plan: Continue D5W Bumex 0.5 mg IV 1 Repeat labs in a.m. Add free water down feeding tube 100 mL every 4 hours post PEG tube placement
[2021-08-20 15:10] LABS: Allen Test Performed? Yes
[2021-08-20 15:27] LABS: ABG Base Excess 1.7 mmol/L; ABG HCO3 25 mmol/L (21-25); ABG Oxygen Saturation 95.2 % (94-97); ABG PCO2 34 mmHg (35-45); ABG PH 7.48 (7.35-7.45); ABG PO2 62 mmHg (83-108); ABG TCO2 26 mmol/L (19-24)
--- NOTE | 2021-08-20 16:14 | P.PN ---
Subjective Progress Note Date: 08/20/21 Patient is sitting in the recliner, appears generalized weak. Patient denies headache. Patient is undergoing back to placement today because of decreased nutritional intake. Patient was seen by psychiatry, and patient started on Remeron. Patient slept better last night, but was too groggy. The dose has been decreased. Patient not taking any pain medication. Objective - Vital Signs Vital signs: Vital Signs Temp 97.9 F 08/20/21 12:00 Pulse 82 08/20/21 15:58 Resp 31 H 08/20/21 15:00 BP 119/62 08/20/21 15:00 Pulse Ox 93 L 08/20/21 15:00 Intake & Output 08/19/21 08/20/21 08/20/21 18:59 06:59 18:59 Intake Total 675 825 875 Output Total 580 615 445 Balance 95 210 430 Weight 67.2 kg 67.2 kg Intake: IV 375 825 675 Dextrose 5% in Water 1, 375 825 675 000 ml @ 75 mls/hr IV . [id number] [facility] Rx#:[id number] Intake, IV Titration 300 200 Amount Dextrose 5% in Water 1, 300 200 000 ml @ 75 mls/hr IV . [id number] [facility] Rx#:[id number] Output: Drainage [address] 0 0 Right Posterior 0 0 Urine 580 615 445 Other: Voiding Method Indwelling Catheter Indwelling Catheter Indwelling Catheter ABP, PAP, CO, CI - Last Documented Arterial Blood Pressure 119/35 Pulmonary Artery Pressure 35/28 Cardiac Output 5 Cardiac Index 2.7 - Exam patient appears generalized weak, but is alert and awake, pleasant. Patient's strength is normal. Patient's pupils are equal, round and reacting, visual sousa are full and face is symmetric. Mouth is dry. No ataxia for [id number] testing. No pronator drift. - Labs CBC & Chem 7: 08/21/21 06:51 08/21/21 06:51 Labs: Abnormal Lab Results - Last 24 Hours (Table) 08/19/21 08/20/21 08/20/21 Range/Units 17:06 06:23 07:09 RBC (4.30-5.90) m/uL Hgb (13.0-17.5) gm/dL Hct (39.0-53.0) % MCV (80.0-100.0) fL MCHC (31.0-37.0) g/dL RDW (11.5-15.5) % Plt Count (150-450) k/uL Neutrophils # (1.3-7.7) k/uL Lymphocytes # (1.0-4.8) k/uL Macrocytosis PT 19.2 H (9.0-12.0) sec INR 1.9 H (<1.2) ABG pH (7.35-7.45) ABG pCO2 (35-45) mmHg ABG pO2 (83-108) mmHg ABG Total CO2 (19-24) mmol/L Sodium (137-145) mmol/L Chloride (98-107) mmol/L BUN (9-20) mg/dL Creatinine (0.66-1.25) mg/dL Glucose (74-99) mg/dL POC Glucose (mg/dL) 209 H 161 H (75-99) mg/dL Total Protein (6.3-8.2) g/dL Albumin (3.5-5.0) g/dL 08/20/21 08/20/21 08/20/21 Range/Units 07:09 07:09 11:05 RBC 2.97 L (4.30-5.90) m/uL Hgb 9.3 L (13.0-17.5) gm/dL Hct 32.5 L (39.0-53.0) % MCV 109.2 H (80.0-100.0) fL MCHC 28.7 L (31.0-37.0) g/dL RDW 20.8 H (11.5-15.5) % Plt Count 119 L (150-450) k/uL Neutrophils # 9.1 H (1.3-7.7) k/uL Lymphocytes # 0.2 L (1.0-4.8) k/uL Macrocytosis Marked A PT (9.0-12.0) sec INR (<1.2) ABG pH (7.35-7.45) ABG pCO2 (35-45) mmHg ABG pO2 (83-108) mmHg ABG Total CO2 (19-24) mmol/L Sodium 148 H (137-145) mmol/L Chloride 114 H (98-107) mmol/L BUN 102 H* (9-20) mg/dL Creatinine 2.12 H (0.66-1.25) mg/dL Glucose 152 H (74-99) mg/dL POC Glucose (mg/dL) 110 H (75-99) mg/dL Total Protein 5.7 L (6.3-8.2) g/dL Albumin 2.7 L (3.5-5.0) g/dL 08/20/21 Range/Units 15:08 RBC (4.30-5.90) m/uL Hgb (13.0-17.5) gm/dL Hct (39.0-53.0) % MCV (80.0-100.0) fL MCHC (31.0-37.0) g/dL RDW (11.5-15.5) % Plt Count (150-450) k/uL Neutrophils # (1.3-7.7) k/uL Lymphocytes # (1.0-4.8) k/uL Macrocytosis PT (9.0-12.0) sec INR (<1.2) ABG pH 7.48 H (7.35-7.45) ABG pCO2 34 L (35-45) mmHg ABG pO2 62 L (83-108) mmHg ABG Total CO2 26 H (19-24) mmol/L Sodium (137-145) mmol/L Chloride (98-107) mmol/L BUN (9-20) mg/dL Creatinine (0.66-1.25) mg/dL Glucose (74-99) mg/dL POC Glucose (mg/dL) (75-99) mg/dL Total Protein (6.3-8.2) g/dL Albumin (3.5-5.0) g/dL Assessment and Plan Assessment: * Altered mental status, most likely due to metabolic encephalopathy * Acute on chronic renal failure, slightly improving now. * Anemia, with macrocytosis, rule out B12 folate deficiency. * Status post mitral valve replacement, 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 * Permanent pacemaker Plan: * Patient continues to be generalized weak, with a nonfocal examination. His altered mental status is likely because of metabolic encephalopathy due to the reasons mentioned above. * Patient has macrocytosis, B12 is 1645, folic acid >20.0. * 2-D echo from 08/01/2021 shows normal left ventricular size. Moderate concentric LVH. Left ventricular systolic function is low normal with EF between 50-55%. Septal flattening in diastole insistently which is consistent with right ventricular pressure and volume overload. Right ventricle is severely enlarged. Normally functioning bioprosthetic mitral valve. Moderate to severe tricuspid regurgitation present. Moderate to severe pulmonary hypertension. * Carotid Doppler revealed no hemodynamically significant stenosis in either ICA. Antegrade flow in both vertebral arteries. * Patient's hemoglobin A1c 5.8 on 07/02/2021. * Lipid panel with cholesterol 97, LDL 40, HDL 45 and triglycerides 56 on 07/02/2021. Continue statins. * TSH is normal 4.81. We will check B12, folate. * Patient has history of atrial fibrillation. Patient's anticoagulation is currently on hold. Patient is undergoing PEG tube placement today. Patient on heparin subcu and aspirin 81 mg. Consider bridging with Lovenox pending PEG tube placement. Resume anticoagulation as early as possible. * Neurologically, no other workup indicated. Please call neurology if any concerns. Dr. Ed Salinas will resume neurology service from the morning.
[2021-08-20] MEDS ORDERED: LIDOCAINE 2% INJ 20 MG/ML (2 ML VIAL) ONE (17:00)
[2021-08-20] MEDS ORDERED: PROPOFOL 10 MG/ML 20 ML VIAL IV ONE (17:00)
[2021-08-20] MEDS ORDERED: IV FLUID CONTINUATION 550 ML IV ONE (17:00)
--- NOTE | 2021-08-20 17:46 | P.PCN ---
Date of Procedure: 08/20/21 Procedure(s) Performed: PREOPERATIVE DIAGNOSIS: Malnutrition POSTOPERATIVE DIAGNOSIS: Same PROCEDURE: EGD with PEG tube placement SURGEON: Akbar EBL: Minimal ANESTHESIA: Sedation COMPLICATIONS: None OPERATIVE PROCEDURE: The patient was placed in the supine position on the endoscopy table. The patient was sedated per anesthesia that time. The Olympus gastroscope was inserted into the oropharynx and passed under direct visualization to the region of the duodenum. No obstruction was seen. The pylorus was widely patent. The stomach was carefully inspected. The stomach was fully insufflated with air. The abdominal wall was inspected. The light was seen shining through the abdominal wall in the left upper quadrant. This site was chosen for PEG tube placement. The area was prepped in the usual sterile fashion. This area was then localized with lidocaine. No air was evident when aspirating while advancing the localizing needle into the stomach until the stomach was reached. A small vertical incision was made using the scalpel. The Seldinger needle was advanced into the lumen of the stomach the wire was advanced. The wire was grasped with an endoscopic snare. The wire was pulled through the oropharynx. The catheter was then threaded over the guidewire and the guidewire and catheter were pulled anteriorly until the hub of the PEG tube catheter was seated against the anterior wall the stomach. The circular bolster was applied and tightened down. The endoscope was then readvan estuardo into the stomach. There was no evidence of any bleeding and there was appropriate tightness on the bolster. The catheter was cut appropriately. The dual port feeding adapter was applied. It should be noted that during the procedure the patient had a small to moderate amount of blood clots present within the oropharynx. After speaking with the patient's it sounds like this may be related to recent epistaxis. No active bleeding was seen anywhere. DISPOSITION: Stable to recovery room
[2021-08-20 17:53] LABS: Glucose,Whole Blood 175 mg/dL (75-99)
[2021-08-20] MEDS: ATORVASTATIN 40 MG TAB PO SCH (21:14)
[2021-08-20] MEDS: CALCIUM ACETATE 667 MG TAB PO SCH (21:14)
[2021-08-20 21:24] LABS: Glucose,Whole Blood 77 mg/dL (75-99)
[2021-08-20] MEDS: MELATONIN 3 MG TABLET PO SCH (21:28)
[2021-08-21] MEDS: DEXTROSE 5% IN WATER 1,000 ML IV SCH (00:18)
[2021-08-21] MEDS: HEPARIN SODIUM,PORCINE/PF 5,000 UNIT/0.5 ML SYRINGE SQ SCH ×2 (00:18→09:07)
[2021-08-21 06:33] LABS: Glucose,Whole Blood 140 mg/dL (75-99)
[2021-08-21] MEDS: INSULIN ASPART (NovoLOG) 100 UNIT/ML VIAL SQ SCH ×5 (06:38→22:35)
[2021-08-21] MEDS: PANTOPRAZOLE 40 MG TABLET PO SCH (06:39)
--- NOTE | 2021-08-21 06:58 | P.PN ---
Progress Note - Text Patient with agitation, confusion. Not appropriate for IPR at this time. Will continue to follow.
[2021-08-21] MEDS ORDERED: bisacodyL 10 MG SUPP RECTAL STA (07:04)
--- NOTE | 2021-08-21 07:24 | XR ---
EXAMINATION TYPE: XR chest 1V portable DATE OF EXAM: 08/21/2021 COMPARISON: Chest x-ray 08/20/2021 HISTORY: Shortness of breath TECHNIQUE: Single frontal view of the chest is obtained. FINDINGS: Patient is post median sternotomy. There is a generator in left pectoral region, lead in t he right ventricle. There are overlying leads present. Cardiac mediastinal sweat is stable, heart is enlarged. There is persistent blunting of the costophrenic angles, bibasilar increased attenuation. N o evident pneumothorax. Patient is rotated. There are overlying artifacts. Perihilar vascular indisti nctness is present. There is a Pleurx catheter present on the right. IMPRESSION: Suspect pleural effusions and associated atelectasis, difficult to exclude pneumonia, vo lume overload, congestive heart failure.
[2021-08-21 07:26] LABS: Anisocytosis Moderate; Basophils % (A) 0 %; Eosinophils # (A) 0.1 k/uL (0-0.7); Eosinophils % (A) 1 %; HCT 32.9 % (39.0-53.0); HGB 9.3 gm/dL (13.0-17.5); Hypochromasia Marked; Lymphocytes # (A) 0.2 k/uL (1.0-4.8); Lymphocytes % (A) 2 %; MCH 30.9 pg (25.0-35.0); MCHC 28.2 g/dL (31.0-37.0); MCV 109.5 fL (80.0-100.0); Macrocytosis Marked; Mean Platelet Volume 10.2; Monocytes # (A) 0.4 k/uL (0-1.0); Monocytes % (A) 4 %; Neutrophils % (A) 93 %; Platelet Count 102 k/uL (150-450); Poikilocytosis Slight; RDW 20.1 % (11.5-15.5); WBC 9.7 k/uL (3.8-10.6)
[2021-08-21] MEDS: SYMBICORT 160-4.5 MCG INHALER INHALATION SCH ×2 (07:33→19:53)
[2021-08-21] MEDS: IPRATROPIUM-ALBUTEROL 3 ML NEB INHALATION SCH ×4 (07:33→19:53)
[2021-08-21 07:41] LABS: Albumin 2.6 g/dL (3.5-5.0); Calcium 8.2 mg/dL (8.4-10.2); Total Protein 5.4 g/dL (6.3-8.2)
[2021-08-21 07:54] LABS: INR 2.2 (<1.2); Prothrombin Time 22.2 sec (9.0-12.0)
--- NOTE | 2021-08-21 08:28 | P.PN ---
Subjective Progress Note Date: 08/21/21 The patient is an 81-year-old male who underwent mitral valve replacement,tricuspid valve repair, and CABG 1 with SVG to OM on July 28. The patient's recovery has been complicated by worsening kidney disease as well as right pleural effusion, requiring chest tube placement. On 08/20/21 the patient underwent PEG tube placement for decreased oral intake. The patient is currently on a D50 infusion. The patient was interviewed and examined sitting in the recliner chair. Congested cough. He appears to be more confused this morning. Limited ROS. GENERAL: Pale. In no acute distress NECK: Supple without JVD or thyromegaly. LUNGS: Breath sounds coarse, worse on the left. Breath sounds equal. HEART: Regular rate and rhythm. Soft systolic murmur. No rubs or gallops. S1 and S2 heard. EXTREMITIES: Normal range of motion, no edema. No clubbing or cyanosis. Peripheral pulses intact. VITALS: Blood pressure 112/67 pulse 67, respiratory rate 23, SpO2 100% on 3 L nasal cannula TELEMETRY: Paced rhythm. Underlying atrial fibrillation. LABS: WBC 9.7, hemoglobin 9.3, hematocrit 32.9, platelet 102, INR 2.2, sodium 146, BUN 83, creatinine 1.8, ALT 18, AST 33 IMPRESSION: Mitral regurgitation, status post mitral valve replacement Tricuspid regurgitation, status post tricuspid valve repair Coronary artery disease, status post CABG 1 Persistent atrial fibrillation, on warfarin Sick sinus syndrome, status post permanent pacemaker Chronic kidney disease, baseline 3A Acute kidney injury, improving Anemia, secondary to blood loss PLAN: No changes in medication regimen from the cardiac standpoint Continue aggressive pulmonary hygiene I am dictating on behalf of Dr Edu Barajas's history/physical and assessment/plan. Objective - Vital Signs Vital signs: Vital Signs Temp 97.6 F 08/21/21 04:00 Pulse 70 08/21/21 07:47 Resp 23 08/21/21 07:00 BP 112/67 08/21/21 07:00 Pulse Ox 100 08/21/21 07:00 Intake & Output 08/20/21 08/21/21 08/21/21 18:59 06:59 18:59 Intake Total 1400 900 75 Output Total 670 745 45 Balance 730 155 30 Weight 67.2 kg 68.7 kg Intake: IV 1200 900 75 Dextrose 5% in Water 1, 1050 900 75 000 ml @ 75 mls/hr IV . [id number] [facility] Rx#:[id number] Intake, IV Titration 200 Amount Dextrose 5% in Water 1, 200 000 ml @ 75 mls/hr IV . [id number] [facility] Rx#:[id number] Output: Drainage [address] 0 Right Posterior 0 Urine 670 745 45 Other: Voiding Method Indwelling Catheter Indwelling Catheter ABP, PAP, CO, CI - Last Documented Arterial Blood Pressure 119/35 Pulmonary Artery Pressure 35/28 Cardiac Output 5 Cardiac Index 2.7 - Labs CBC & Chem 7: 08/21/21 06:51 08/21/21 06:51 Labs: Abnormal Lab Results - Last 24 Hours (Table) 08/20/21 08/20/21 08/20/21 Range/Units 07:09 07:09 11:05 RBC 2.97 L (4.30-5.90) m/uL Hgb 9.3 L (13.0-17.5) gm/dL Hct 32.5 L (39.0-53.0) % MCV 109.2 H (80.0-100.0) fL MCHC 28.7 L (31.0-37.0) g/dL RDW 20.8 H (11.5-15.5) % Plt Count 119 L (150-450) k/uL Neutrophils # 9.1 H (1.3-7.7) k/uL Lymphocytes # 0.2 L (1.0-4.8) k/uL Macrocytosis Marked A PT (9.0-12.0) sec INR (<1.2) ABG pH (7.35-7.45) ABG pCO2 (35-45) mmHg ABG pO2 (83-108) mmHg ABG Total CO2 (19-24) mmol/L Sodium (137-145) mmol/L Chloride (98-107) mmol/L BUN (9-20) mg/dL Creatinine (0.66-1.25) mg/dL Glucose (74-99) mg/dL POC Glucose (mg/dL) 110 H (75-99) mg/dL Calcium (8.4-10.2) mg/dL Total Protein (6.3-8.2) g/dL Albumin (3.5-5.0) g/dL Vitamin B12 1645.0 H (200.0-944.0) pg/mL 08/20/21 08/20/21 08/21/21 Range/Units 15:08 17:50 06:30 RBC (4.30-5.90) m/uL Hgb (13.0-17.5) gm/dL Hct (39.0-53.0) % MCV (80.0-100.0) fL MCHC (31.0-37.0) g/dL RDW (11.5-15.5) % Plt Count (150-450) k/uL Neutrophils # (1.3-7.7) k/uL Lymphocytes # (1.0-4.8) k/uL Macrocytosis PT (9.0-12.0) sec INR (<1.2) ABG pH 7.48 H (7.35-7.45) ABG pCO2 34 L (35-45) mmHg ABG pO2 62 L (83-108) mmHg ABG Total CO2 26 H (19-24) mmol/L Sodium (137-145) mmol/L Chloride (98-107) mmol/L BUN (9-20) mg/dL Creatinine (0.66-1.25) mg/dL Glucose (74-99) mg/dL POC Glucose (mg/dL) 175 H 140 H (75-99) mg/dL Calcium (8.4-10.2) mg/dL Total Protein (6.3-8.2) g/dL Albumin (3.5-5.0) g/dL Vitamin B12 (200.0-944.0) pg/mL 08/21/21 08/21/21 08/21/21 Range/Units 06:51 06:51 06:51 RBC 3.00 L (4.30-5.90) m/uL Hgb 9.3 L (13.0-17.5) gm/dL Hct 32.9 L (39.0-53.0) % MCV 109.5 H (80.0-100.0) fL MCHC 28.2 L (31.0-37.0) g/dL RDW 20.1 H (11.5-15.5) % Plt Count 102 L (150-450) k/uL Neutrophils # (1.3-7.7) k/uL Lymphocytes # (1.0-4.8) k/uL Macrocytosis Marked A PT 22.2 H (9.0-12.0) sec INR 2.2 H (<1.2) ABG pH (7.35-7.45) ABG pCO2 (35-45) mmHg ABG pO2 (83-108) mmHg ABG Total CO2 (19-24) mmol/L Sodium 146 H (137-145) mmol/L Chloride 111 H (98-107) mmol/L BUN 83 H (9-20) mg/dL Creatinine 1.88 H (0.66-1.25) mg/dL Glucose 127 H (74-99) mg/dL POC Glucose (mg/dL) (75-99) mg/dL Calcium 8.2 L (8.4-10.2) mg/dL Total Protein 5.4 L (6.3-8.2) g/dL Albumin 2.6 L (3.5-5.0) g/dL Vitamin B12 (200.0-944.0) pg/mL
[2021-08-21] MEDS: ASPIRIN 81 MG PO SCH (09:07)
[2021-08-21] MEDS: TAMSULOSIN 0.4 MG CAP.ER.24H PO SCH (09:07)
[2021-08-21] MEDS: ASCORBIC ACID 500 MG TAB PO SCH (09:07)
[2021-08-21] MEDS: SERTRALINE 50 MG TAB PO SCH (09:08)
[2021-08-21] MEDS: CHLORHEXIDINE GLUCONATE 15 ML CUP MUCOUS MEM SCH ×2 (09:08→22:36)
[2021-08-21] MEDS: MEGESTROL 400 MG/10 ML CUP PO SCH (09:08)
[2021-08-21] MEDS: FERROUS SULFATE 325 MG TAB PO SCH (09:08)
[2021-08-21] MEDS: MAG HYDROX/AL HYDROX/SIMETH 30 ML, LIDOCAINE VISCOUS 2% 30 ML, NYSTATIN 100,000 UNIT/ML... PO SCH ×9 (09:10→22:37)
[2021-08-21] MEDS: ACETAMINOPHEN TAB 325 MG TAB PO PRN (09:13)
--- NOTE | 2021-08-21 09:18 | P.PN ---
Subjective Progress Note Date: 08/21/21 Principal diagnosis: Mitral valve regurgitation, tricuspid valve regurgitation, and coronary artery disease. Past medical history significant for coronary artery disease with prev ious myocardial infarction and PCI, hypertension, hyperlipidemia, chronic persistent atrial fibrillation on Coumadin for anticoagulation as an outpatient, status post cardioversion, sick sinus syndrome, status post [facility] permanent pacemaker placement in 2016, chronic systolic heart failure, atrial septal defect status post closure, history of MitraClip in 2019, chronic renal insufficiency, remote history of tobacco dependence, restrictive lung disease, obstructive sleep apnea, recurrent right pleural effusions with history of 4 previous thoracentesis, remote history of pneumonia, history of prostate cancer with a PSA of 16.2 in May 2019 and a family history of premature coronary artery disease. Preoperative nasal screening positive for MSSA, treated. POD #24 mitral valve replacement with 31 mm Mosaic porcine valve prosthesis, tricuspid valve repair with 30 mm MC3 band, coronary artery bypass grafting 1 with reverse greater saphenous vein graft to the obtuse marginal coronary artery, endovascular vein harvest of the left greater saphenous vein, epi-aortic ultrasound, closure of the left atrial appendage, closure of atrial septal defect. Postoperative acute blood loss anemia and thrombocytopenia, expected given hemodilution and cardiopulmonary bypass pump. Coagulopathy, unexpected, resolved. Right pleural effusion, expected due to his history of preoperative right p leural effusion with history of 4 previous thoracentesis. Status post placement of right-sided pigtail catheter by interventional radiology, status post right sided Pleurx catheter placement. Leukocytosis, afebrile, sputum positive for Klebsiella pneumoniae. Altered mental status after surgery due to delirium from lack of sleep, resolved Urinary retention, expected given his history of prostate cancer, requiring placement of Cortes catheter. The patient was seen and examined at his bedside in the intensive care unit today 08/21/2021. Currently he is sitting up to the bedside chair, is awake, alert, oriented 3 and is in no acute distress. Denies any complaints of shortness of breath or surgical type pain at this time. Continues to complain of a sore mouth and lack of energy. He had a PEG feeding tube placed yesterday by general surgery due to his malnutrition. He remains on Megace to improve his appetite. Oxygen saturations are 97% on 2 L nasal cannula. 200 mL of thin serosanguineous drainage was drained from his right chest Pleurx catheter this morning. Bedside telemetry showing V paced rhythm heart rate 70 bpm. His bedside nurse reports that the patient tolerated BiPAP last night and slept very much the whole night. Laboratory results reviewed this morning as well as his chest x-ray. BUN is 83 and creatinine is 1.88. He was given a dose of Bumex yesterday 0.5 mg IV 1 per nephrology's recommendations. Cortes catheter remains in place for urinary retention and he continues on Flomax 0.4 mg by mouth daily. He remains hemodynamically stable and is currently on no inotropic pressor support. He was up ambulating in the intensive care unit hallway with marguerite enrique from nursing and therapy staff. Remeron and Zoloft doses have been decreased due to the patient being a little groggy yesterday morning. Coumadin remains on hold and his PT and INR are 22.2 and 2.2 this morning. His last dose of Coumadin was on 08/15/2021. He remains afebrile the last 24 hours. Objective - Vital Signs Vital signs: Vital Signs Temp 97.6 F 08/21/21 04:00 Pulse 67 08/21/21 07:00 Resp 23 08/21/21 07:00 BP 112/67 08/21/21 07:00 Pulse Ox 100 08/21/21 07:00 Intake & Output 08/20/21 08/21/21 08/21/21 18:59 06:59 18:59 Intake Total 1400 900 75 Output Total 670 745 45 Balance 730 155 30 Weight 67.2 kg 68.7 kg Intake: IV 1200 900 75 Dextrose 5% in Water 1, 1050 900 75 000 ml @ 75 mls/hr IV . [id number] PHIL Rx#:[id number] Intake, IV Titration 200 Amount Dextrose 5% in Water 1, 200 000 ml @ 75 mls/hr IV . [id number] PHIL Rx#:[id number] Output: Drainage [address] 0 Right Posterior 0 Urine 670 745 45 Other: Voiding Method Indwelling Catheter Indwelling Catheter ABP, PAP, CO, CI - Last Documented Arterial Blood Pressure 119/35 Pulmonary Artery Pressure 35/28 Cardiac Output 5 Cardiac Index 2.7 - Exam CONSTITUTIONAL: Sitting up to the bedside chair in the intensive care unit, appears comfortable, cooperative, and is in no apparent acute distress. HEENT: Neck is supple, no JVD, no lymphadenopathy. RESPIRATORY: Lungs sounds with few scattered rhonchi throughout, diminished to his bilateral bases right greater than left. Respirations are symmetrical and nonlabored. Currently on 2 L nasal cannula, oxygen saturations 97%. Able to achieve 750-1000 mL on his incentive spirometry. Strong, loose nonproductive cough. CARDIOVASCULAR: Regular rhythm and rate. S1 and S2 present, negative for S3, gallop or murmur. Sternum is stable. Palpable peripheral pulses bilaterally. No calf pain or tenderness noted. Heart hugger in place with patient demonstrating appropriate use with encouragement. Knee-high SUMI hose and sequential compression devices in place to his bilateral lower extremities. Bedside telemetry showing V paced rhythm heart rate 70 bpm. +1 edema to his bilateral lower extremities. GASTROINTESTINAL: Abdomen soft, nontender, and slightly distended. Active bow el sounds present 4 quadrants. Tolerating diet. No guarding or rigidity. Bowel movement 08/20/2021. GENITOURINARY: Cortes catheter in place for urinary retention. 460 mL of urine output last 8 hours. INTEGUMENTARY: Skin is warm and dry with no evidence of clubbing or cyanosis. Midline sternal incision clean dry and well approximated, covered with dry intact dressing. Left lower extremity EVH site well approximated without redness or drainage. Right sided Pleurx catheter intact with dressing dry, clean and intact. Small scattered ecchymotic areas to his bilateral cheeks to his face. NEUROLOGIC: Cranial nerves II through XII intact. No focal deficits. MUSKULOSKELETAL: Able to move all extremities, strength equal bilaterally, generalized weakness. PSYCHIATRIC: Alert and oriented 3, flat affect. Episodes of restlessness. INVASIVE LINES AND TUBES: Right sided Pleurx catheter. Right chest Pleurx catheter drain for 200 mL of thin serosanguineous drainage today 08/21/2021. - Allied health notes Allied health notes reviewed: nursing - Labs CBC & Chem 7: 08/21/21 06:51 08/21/21 06:51 Labs: Abnormal Lab Results - Last 24 Hours (Table) 08/20/21 08/20/21 08/20/21 Range/Units 07:09 07:09 07:09 RBC 2.97 L (4.30-5.90) m/uL Hgb 9.3 L (13.0-17.5) gm/dL Hct 32.5 L (39.0-53.0) % MCV 109.2 H (80.0-100.0) fL MCHC 28.7 L (31.0-37.0) g/dL RDW 20.8 H (11.5-15.5) % Plt Count 119 L (150-450) k/uL Neutrophils # 9.1 H (1.3-7.7) k/uL Lymphocytes # 0.2 L (1.0-4.8) k/uL Macrocytosis Marked A PT 19.2 H (9.0-12.0) sec INR 1.9 H (<1.2) ABG pH (7.35-7.45) ABG pCO2 (35-45) mmHg ABG pO2 (83-108) mmHg ABG Total CO2 (19-24) mmol/L Sodium 148 H (137-145) mmol/L Chloride 114 H (98-107) mmol/L BUN 102 H* (9-20) mg/dL Creatinine 2.12 H (0.66-1.25) mg/dL Glucose 152 H (74-99) mg/dL POC Glucose (mg/dL) (75-99) mg/dL Total Protein 5.7 L (6.3-8.2) g/dL Albumin 2.7 L (3.5-5.0) g/dL Vitamin B12 (200.0-944.0) pg/mL 08/20/21 08/20/21 08/20/21 Range/Units 07:09 11:05 15:08 RBC (4.30-5.90) m/uL Hgb (13.0-17.5) gm/dL Hct (39.0-53.0) % MCV (80.0-100.0) fL MCHC (31.0-37.0) g/dL RDW (11.5-15.5) % Plt Count (150-450) k/uL Neutrophils # (1.3-7.7) k/uL Lymphocytes # (1.0-4.8) k/uL Macrocytosis PT (9.0-12.0) sec INR (<1.2) ABG pH 7.48 H (7.35-7.45) ABG pCO2 34 L (35-45) mmHg ABG pO2 62 L (83-108) mmHg ABG Total CO2 26 H (19-24) mmol/L Sodium (137-145) mmol/L Chloride (98-107) mmol/L BUN (9-20) mg/dL Creatinine (0.66-1.25) mg/dL Glucose (74-99) mg/dL POC Glucose (mg/dL) 110 H (75-99) mg/dL Total Protein (6.3-8.2) g/dL Albumin (3.5-5.0) g/dL Vitamin B12 1645.0 H (200.0-944.0) pg/mL 08/20/21 08/21/21 08/21/21 Range/Units 17:50 06:30 06:51 RBC 3.00 L (4.30-5.90) m/uL Hgb 9.3 L (13.0-17.5) gm/dL Hct 32.9 L (39.0-53.0) % MCV 109.5 H (80.0-100.0) fL MCHC 28.2 L (31.0-37.0) g/dL RDW 20.1 H (11.5-15.5) % Plt Count 102 L (150-450) k/uL Neutrophils # (1.3-7.7) k/uL Lymphocytes # (1.0-4.8) k/uL Macrocytosis Marked A PT (9.0-12.0) sec INR (<1.2) ABG pH (7.35-7.45) ABG pCO2 (35-45) mmHg ABG pO2 (83-108) mmHg ABG Total CO2 (19-24) mmol/L Sodium (137-145) mmol/L Chloride (98-107) mmol/L BUN (9-20) mg/dL Creatinine (0.66-1.25) mg/dL Glucose (74-99) mg/dL POC Glucose (mg/dL) 175 H 140 H (75-99) mg/dL Total Protein (6.3-8.2) g/dL Albumin (3.5-5.0) g/dL Vitamin B12 (200.0-944.0) pg/mL - Imaging and Cardiology Chest x-ray: report reviewed, image reviewed Assessment and Plan Assessment: 1. Mitral valve regurgitation, history of MitraClip in 2019, status post post mitral valve replacement 2. Tricuspid valve regurgitation, status post tricuspid valve repair 3. Coronary artery disease with previous myocardial infarction and PCI, status post 1 vessel CABG 4. History of hypertension, currently hypotensive on levo and dopamine 5. Chronic atrial fibrillation on Coumadin for anticoagulation status post cardioversion, status post closure of the left atrial appendage 6. Sick sinus syndrome status post [facility] permanent pacemaker placement in 2016 7. Chronic systolic heart failure 8. Atrial septal defect status post closure 9. Chronic kidney disease stage IIIB with a baseline creatinine of 1.6-1.7 10. Previous tobacco dependence 11. Severe restrictive lung disease, preoperative FEV1 47% of predicted 12. Recurrent right-sided pleural effusion, patient had right sided thoracentesis twice in 2019 and twice in 2020, status post right chest pigtail catheter placement by IR, status post right-sided Pleurx catheter placement 13. Obstructive sleep apnea, with home CPAP use 14. Remote history of pneumonia 15. Family history of premature coronary artery disease 16. Postoperative acute blood loss anemia and thrombocytopenia, expected 17. Coagulopathy, unexpected and resolved 18. Leukocytosis, elevated pro-calcitonin, sputum culture positive for Klebsiella pneumoniae 19. Acute kidney injury secondary to ATN, possibly secondary to hypotension 20. Urinary retention, expected given his history of prostate cancer 21. History of prostate cancer 22. Malnutrition and general debility, status post PEG tube placement by general surgery Plan: 1. Continue low-dose aspirin, and statin. Continue to hold metoprolol tartrate due to episodes of hypotension. We will restart metoprolol tartrate when able to tolerate. 2. Start coumadin 1 mg po daily in the am, continue to monitor PT/INR on Wednesday and Wednesday with gaol INR 2-3. INR today is 2.2. Discontinue subcu heparin. 3. Wean O2 as tolerated. Encourage incentive spirometry use 10 times every hour while awake. Bronchodilators per pulmonology. 4. Increase activity, ambulate minimum 4 times in the hallway daily. Out of be d for all meals. PT/OT/cardiac rehab following. 5. Will monitor daily labs and chest x-rays. 6. GI/DVT prophylaxis. 7. Insulin management per primary care service. The patient is not diabetic, preoperative hemoglobin A1c 5.8%. 8. Pain control per current medication regimen. Avoid narcotics due to history of delirium postoperatively. 9. Strict accurate intake and output. Daily weights. Continue Cortes catheter for urinary retention. 10. Encourage oral intake, encourage supplements to improve nutrition. Start tube feedings Nepro per dietitian's recommendations with cool rate of 40 mL per hour. Discontinue IV fluids now that patient is able to take oral intake. 11. Discharge planning in place, anticipate need for subacute facility with rehab. 12. Avoid nephrotoxic agents. Bumex 0.5 mg IV 1 was given yesterday 08/20/2021. Start Bumex 2 mg by mouth daily. 13. Shower daily. 14. Right chest Pleurx catheter drain for 200 mL of thin serosanguineous drainage today 08/21/2021. 15. Dulcolax suppository 1 now. 16. More recommendations to follow based on patient's clinical course. Time with Patient: Greater than 30
[2021-08-21] MEDS: WARFARIN 1 MG TAB PO SCH (09:42)
[2021-08-21] MEDS: BUMETANIDE 1 MG TAB PO SCH (09:42)
--- NOTE | 2021-08-21 09:55 | P.PN ---
Subjective Progress Note Date: 08/21/21 The patient is seen today 08/12/2021 in follow-up in the intensive care unit. He is postoperative day #15 above mitral valve replacement, tricuspid valve repair and coronary artery bypass grafting times one. He had had issues with recurrent right-sided pleural effusion and is status post right-sided pigtail catheter in place. Proximal main 400 ML's of serosanguineous fluid drained overnight. Left-sided chest tube remains in place with an another 200 ML's of serosanguineous fluid drained. He is requiring 6 L of high flow nasal cannula to maintain O2 saturations in the 90s. Chest x-ray shows improvement in the pleural effusions. There is still bilateral opacities and some interstitial changes consistent with congestive heart failure. Moderate cardiomegaly. He is alert and oriented today. He still has complaints of a sore mouth. His appetite has been poor. Current cardiac rhythm is paced. Urine cultures revealed no growth. Blood cultures reveal no growth. Sputum culture from 10/2021 was positive for Klebsiella pneumoniae. White count 13.2. Hemoglobin 8.5. Platelets 261. Sodium 133. Potassium 4.8. Bicarb 21. BUN 119. Creatinine 2.80. Glucose 138. He is status post 2 units of packed red blood cells, 4 units of fresh frozen plasma and 2 units of platelets this admission. He is continued on nystatin swish and swallow, bronchodilators, heparin for DVT prophylaxis. Remains on Bumex. Currently in a -125 ML balance. Patient is seen today 08/13/2021 in follow-up in the intensive care unit. He is postoperative day #16. He is currently resting fairly comfortably in bed. He is requiring 10 L high flow nasal cannula to maintain O2 saturations in the low 90s. His bilateral chest tubes have been removed. This morning chest x-ray revealed loculated right costophrenic angle pneumothorax. Minimal right apical pneumothorax. Evidence of cardiomegaly with prominent pulmonary vascular congestion. Previous sputum had been positive for Klebsiella pneumoniae. White count 13.8. Hemoglobin 8.7. Platelets 242. INR 2.0. Sodium 134. Potassium 5.2. BUN 126. Creatinine 2.4. He is continued on DuoNeb inhalations, IV Bumex, antibiotics in the form of cefepime. He'll also be trialed on BiPAP 04/07 and titrate the FiO2. He is continued on Protonix for GI prophylaxis. His appetite has improved on a pured diet. He seems to tolerate that better. Less mouth discomfort. The patient is seen today 08/19/2021 in follow-up in intensive care unit. He is currently sitting up in a chair at the bedside. Awake and alert in no acute distress. Skin of the brain revealed chronic ischemic changes and scattered chronic infarcts. 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 No intracranial hemorrhage or gross acute cortical infarct. He is still maint aining O2 saturations in the 90s on 3 L/m per nasal cannula. He is pulling approximately 1000 ML's on his incentive spirometer. Chest x-ray continues to show diffuse increased lung markings in the right mid and lower lung field. Small right pleural effusion is present. Mild left basilar infiltrate. Pleurx catheter drained by CT services for 250 mL today. He is status post 2 units of packed red blood cells, 4 units of fresh frozen plasma, 2 units of platelets this admission. Sputum culture had been previously positive for Klebsiella pneumonia. White count 10.6. Hemoglobin 8.9. Platelets 134. INR 2.2. Sodium 148. Potassium 3.9. Chloride 114. Bicarb 26. BUN 119. Creatinine 2.41. Glucose 133. He continues to have poor oral intake. He continues to eat less than 50% of his meals. The plan is for possible PEG tube placement. He is continued on DuoNeb inhalations, Symbicort inhalations. Initiated back on his Zoloft. The patient is seen today 08/20/2021 in follow-up in the intensive care unit. He is awake and alert in no acute distress. He is maintaining O2 saturations in the 90s on 6 L high flow nasal cannula. Chest x-ray continues to show persistent pulmonary vascular congestion with right-sided pleural effusion and pleural parenchymal density with cardiomegaly. Hilar mediastinal structures are within normal limits. He is currently sitting up in the recliner at the bedside. He did utilize BiPAP last night 04/07 and 50% FiO2. He has D5W running at 75 ML's per hour. PEG tube was not placed yesterday due to elevated INR. INR today is 1.9. Blood glucose 161. The rest of the labs are pending. He is continued on DuoNeb inhalations, Symbicort. Encouraged to continue to work well with the incentive spirometer. He has been seen by psychiatric services for questionable depression. He is continued on Zoloft. Remeron was added at bedtime. He is also on Megace to try to improve his appetite. Heparin for DVT prophylaxis. The patient is seen today 08/22/2019 in follow-up in the intensive care unit. He is currently sitting up in a chair at the bedside. Awake and alert in no acute distress. He is down to 2 L nasal cannula maintaining O2 saturations in the 90s. He is utilizing BiPAP at night 04/07 and 50% FiO2. He has D5W at 75 ML's per hour. He did have a PEG tube placed yesterday. He is continued on Symbicort and DuoNeb inhalations. Anticoagulated with warfarin. White count 9.7. Hemoglobin 9.3. We will count 102,000. INR 2.2. Sodium 136. Potassium 4.0. The 183. Creatinine 1.88. AST 33. ALT 18. Albumin 2.6. Chest x-ray continues to show pleural effusion and associated atelectasis. CT services removed 200 mL of thin serosanguineous drainage from his right Pleurx catheter today. Objective - Vital Signs Vital signs: Vital Signs Temp 97.6 F 08/21/21 04:00 Pulse 70 08/21/21 07:47 Resp 23 08/21/21 07:00 BP 112/67 08/21/21 07:00 Pulse Ox 100 08/21/21 07:00 Intake & Output 08/20/21 08/21/21 08/21/21 18:59 06:59 18:59 Intake Total 1400 900 75 Output Total 670 745 45 Balance 730 155 30 Weight 67.2 kg 68.7 kg Intake: IV 1200 900 75 Dextrose 5% in Water 1, 1050 900 75 000 ml @ 75 mls/hr IV . [id number] [facility]IL Rx#:[id number] Intake, IV Titration 200 Amount Dextrose 5% in Water 1, 200 000 ml @ 75 mls/hr IV . [id number] PHIL Rx#:[id number] Output: Drainage [address] 0 Right Posterior 0 Urine 670 745 45 Other: Voiding Method Indwelling Catheter Indwelling Catheter ABP, PAP, CO, CI - Last Documented Arterial Blood Pressure 119/35 Pulmonary Artery Pressure 35/28 Cardiac Output 5 Cardiac Index 2.7 - Exam CONSTITUTIONAL: A very pleasant frail, cachectic 81-year-old male patient, sitting up to the bedside chair in the intensive care unit, comfortable, cooperative, no respiratory distress. Currently on 3 L high flow nasal cannula. HEENT: Neck is supple, no JVD, no lymphadenopathy. RESPIRATORY: Lungs sounds with diminished bilateral bases, right greater than left. Respirations are symmetrical and nonlabored. Able to achieve 750-1000 MLS on the incentive spirometer. Right-sided Pleurx catheter remains in place. CARDIOVASCULAR: Regular rhythm and rate. S1 and S2 present, negative for S3, gallop or murmur. Sternum is stable. Palpable peripheral pulses bilaterally. No calf pain or tenderness noted. Heart hugger in place with patient demonstrating appropriate use with encouragement. Knee-high SUMI hose and sequential compression devices in place to his bilateral lower extremities. Bedside telemetry showing paced rhythm at 60 BPM. GASTROINTESTINAL: Abdomen soft, nontender, distended. Active bowel sounds present 4 quadrants. Tolerating diet but poor appetite. No guarding or rigidity. GENITOURINARY: Continues to void. Urine output is adequate for now. INTEGUMENTARY: Skin is warm and dry with no evidence of clubbing or cyanosis. Midline sternal incision clean dry and well approximated, covered with dry intact dressing. Left lower extremity EVH site well approximated without redness or drainage. NEUROLOGIC: Cranial nerves II through XII intact. No focal deficits. MUSKULOSKELETAL: Able to move all extremities, strength equal bilaterally, generalized weakness. PSYCHIATRIC: Alert and oriented 3, appropriate affect. - Labs CBC & Chem 7: 08/21/21 06:51 08/21/21 06:51 Labs: Abnormal Lab Results - Last 24 Hours (Table) 08/20/21 08/20/21 08/20/21 Range/Units 07:09 11:05 15:08 RBC (4.30-5.90) m/uL Hgb (13.0-17.5) gm/dL Hct (39.0-53.0) % MCV (80.0-100.0) fL MCHC (31.0-37.0) g/dL RDW (11.5-15.5) % Plt Count (150-450) k/uL Neutrophils # (1.3-7.7) k/uL Lymphocytes # (1.0-4.8) k/uL Macrocytosis PT (9.0-12.0) sec INR (<1.2) ABG pH 7.48 H (7.35-7.45) ABG pCO2 34 L (35-45) mmHg ABG pO2 62 L (83-108) mmHg ABG Total CO2 26 H (19-24) mmol/L Sodium (137-145) mmol/L Chloride (98-107) mmol/L BUN (9-20) mg/dL Creatinine (0.66-1.25) mg/dL Glucose (74-99) mg/dL POC Glucose (mg/dL) 110 H (75-99) mg/dL Calcium (8.4-10.2) mg/dL Total Protein (6.3-8.2) g/dL Albumin (3.5-5.0) g/dL Vitamin B12 1645.0 H (200.0-944.0) pg/mL 08/20/21 08/21/21 08/21/21 Range/Units 17:50 06:30 06:51 RBC (4.30-5.90) m/uL Hgb (13.0-17.5) gm/dL Hct (39.0-53.0) % MCV (80.0-100.0) fL MCHC (31.0-37.0) g/dL RDW (11.5-15.5) % Plt Count (150-450) k/uL Neutrophils # (1.3-7.7) k/uL Lymphocytes # (1.0-4.8) k/uL Macrocytosis PT 22.2 H (9.0-12.0) sec INR 2.2 H (<1.2) ABG pH (7.35-7.45) ABG pCO2 (35-45) mmHg ABG pO2 (83-108) mmHg ABG Total CO2 (19-24) mmol/L Sodium (137-145) mmol/L Chloride (98-107) mmol/L BUN (9-20) mg/dL Creatinine (0.66-1.25) mg/dL Glucose (74-99) mg/dL POC Glucose (mg/dL) 175 H 140 H (75-99) mg/dL Calcium (8.4-10.2) mg/dL Total Protein (6.3-8.2) g/dL Albumin (3.5-5.0) g/dL Vitamin B12 (200.0-944.0) pg/mL 08/21/21 08/21/21 Range/Units 06:51 06:51 RBC 3.00 L (4.30-5.90) m/uL Hgb 9.3 L (13.0-17.5) gm/dL Hct 32.9 L (39.0-53.0) % MCV 109.5 H (80.0-100.0) fL MCHC 28.2 L (31.0-37.0) g/dL RDW 20.1 H (11.5-15.5) % Plt Count 102 L (150-450) k/uL Neutrophils # 9.0 H (1.3-7.7) k/uL Lymphocytes # 0.2 L (1.0-4.8) k/uL Macrocytosis Marked A PT (9.0-12.0) sec INR (<1.2) ABG pH (7.35-7.45) ABG pCO2 (35-45) mmHg ABG pO2 (83-108) mmHg ABG Total CO2 (19-24) mmol/L Sodium 146 H (137-145) mmol/L Chloride 111 H (98-107) mmol/L BUN 83 H (9-20) mg/dL Creatinine 1.88 H (0.66-1.25) mg/dL Glucose 127 H (74-99) mg/dL POC Glucose (mg/dL) (75-99) mg/dL Calcium 8.2 L (8.4-10.2) mg/dL Total Protein 5.4 L (6.3-8.2) g/dL Albumin 2.6 L (3.5-5.0) g/dL Vitamin B12 (200.0-944.0) pg/mL Assessment and Plan Assessment: 1 Mitral valve regurgitation, status post mitral valve replacement, tricuspid valve regurgitation, status post tricuspid valve repair, coronary artery d isease, status post 1 vessel CABG 2 Continued right-sided pleural effusion, Pleurx catheter placed 3 Poor oral intake, PEG tube placed on 08/20/2021 4 Benign essential hypertension 5 Chronic atrial fibrillation 6 History of sick sinus syndrome and previous pacemaker placement in 2017 7 Chronic systolic congestive heart failure 8 Atrial septal defect post closure 9 Acute on chronic renal failure, baseline creatinine 1.6-1.7. Creatinine 1.88 10 Obstructive sleep apnea syndrome 11 Chronic and recurrent right-sided pleural effusion requiring multiple thoracentesis procedures and now he continues to have a Pleurx catheter in place. 12 Postoperative acute blood loss anemia and thrombocytopenia, expected 13 Positive sputum for Klebsiella pneumonia, suspect Klebsiella pneumonia trache obronchitis, completed cefepime Plan: The patient was seen and evaluated Chest x-ray reviewed, labs reviewed Currently on 3 L high flow nasal cannula Continues incentive spirometer, continued bronchodilators PEG tube placed yesterday and to initiate tube feedings today Continue to titrate his FiO2 as tolerated Increase his activity as tolerated We will continue to follow I have personally seen and examined the patient, performed the documentation and the assessment and plan as written. Number of minutes spent on the visit: 10.
[2021-08-21 11:17] VITALS: BMI 23.7
[2021-08-21 11:45] LABS: Glucose,Whole Blood 160 mg/dL (75-99)
[2021-08-21] MEDS: THIAMINE 100 MG TAB PO SCH (12:21)
[2021-08-21] MEDS: FOLIC ACID 1 MG TAB PO SCH (12:21)
[2021-08-21] MEDS: MULTIVITAMINS, THERA 1 EACH TAB PO SCH (12:21)
--- NOTE | 2021-08-21 12:34 | P.PN ---
Subjective Patient is seen for follow-up for acute kidney injury on top of chronic kidney disease. He is s/p mitral valve replacement, tricuspid valve repair and coronary artery bypass grafting 1 on 07/28/2021 Patient is sitting up on a chair. His is present at bedside. No significant complaints 24 hour urine output of 1.4L. Patient is status post PEG tube placement BUN and creatinine are further improved today. Sitting up in a bedside chair. Tube feeds will be started later on tonight. D5W was discontinued. Objective - Vital Signs Vital signs: Vital Signs Temp 97.6 F 08/21/21 04:00 Pulse 78 08/21/21 11:22 Resp 23 08/21/21 07:00 BP 112/67 08/21/21 07:00 Pulse Ox 100 08/21/21 07:00 Intake & Output 08/20/21 08/21/21 08/21/21 18:59 06:59 18:59 Intake Total 1400 900 75 Output Total 670 745 45 Balance 730 155 30 Weight 67.2 kg 68.7 kg 68.7 kg Intake: IV 1200 900 75 Dextrose 5% in Water 1, 1050 900 75 000 ml @ 75 mls/hr IV . [id number] [facility] Rx#:[id number] Intake, IV Titration 200 Amount Dextrose 5% in Water 1, 200 000 ml @ 75 mls/hr IV . [id number] [facility] Rx#:[id number] Output: Drainage [address] 0 Right Posterior 0 Urine 670 745 45 Other: Voiding Method Indwelling Catheter Indwelling Catheter ABP, PAP, CO, CI - Last Documented Arterial Blood Pressure 119/35 Pulmonary Artery Pressure 35/28 Cardiac Output 5 Cardiac Index 2.7 - Exam Patient is awake comfortable. Not in any acute distress Examination of the heart S1 and S2 Examination lungs bilateral breath sounds heard, decreased breath sounds at the bases, occasional crackles Abdomen is soft Examination lower extremity shows trace edema bilateral lower extremities improved from 2 weeks ago NURSING ASSISTANTS TEACHER exam grossly intact - Labs CBC & Chem 7: 08/21/21 06:51 08/21/21 06:51 Labs: Abnormal Lab Results - Last 24 Hours (Table) 08/20/21 08/20/21 08/20/21 Range/Units 07:09 15:08 17:50 RBC (4.30-5.90) m/uL Hgb (13.0-17.5) gm/dL Hct (39.0-53.0) % MCV (80.0-100.0) fL MCHC (31.0-37.0) g/dL RDW (11.5-15.5) % Plt Count (150-450) k/uL Neutrophils # (1.3-7.7) k/uL Lymphocytes # (1.0-4.8) k/uL Macrocytosis PT (9.0-12.0) sec INR (<1.2) ABG pH 7.48 H (7.35-7.45) ABG pCO2 34 L (35-45) mmHg ABG pO2 62 L (83-108) mmHg ABG Total CO2 26 H (19-24) mmol/L Sodium (137-145) mmol/L Chloride (98-107) mmol/L BUN (9-20) mg/dL Creatinine (0.66-1.25) mg/dL Glucose (74-99) mg/dL POC Glucose (mg/dL) 175 H (75-99) mg/dL Calcium (8.4-10.2) mg/dL Total Protein (6.3-8.2) g/dL Albumin (3.5-5.0) g/dL Vitamin B12 1645.0 H (200.0-944.0) pg/mL 08/21/21 08/21/21 08/21/21 Range/Units 06:30 06:51 06:51 RBC 3.00 L (4.30-5.90) m/uL Hgb 9.3 L (13.0-17.5) gm/dL Hct 32.9 L (39.0-53.0) % MCV 109.5 H (80.0-100.0) fL MCHC 28.2 L (31.0-37.0) g/dL RDW 20.1 H (11.5-15.5) % Plt Count 102 L (150-450) k/uL Neutrophils # 9.0 H (1.3-7.7) k/uL Lymphocytes # 0.2 L (1.0-4.8) k/uL Macrocytosis Marked A PT 22.2 H (9.0-12.0) sec INR 2.2 H (<1.2) ABG pH (7.35-7.45) ABG pCO2 (35-45) mmHg ABG pO2 (83-108) mmHg ABG Total CO2 (19-24) mmol/L Sodium (137-145) mmol/L Chloride (98-107) mmol/L BUN (9-20) mg/dL Creatinine (0.66-1.25) mg/dL Glucose (74-99) mg/dL POC Glucose (mg/dL) 140 H (75-99) mg/dL Calcium (8.4-10.2) mg/dL Total Protein (6.3-8.2) g/dL Albumin (3.5-5.0) g/dL Vitamin B12 (200.0-944.0) pg/mL 08/21/21 08/21/21 Range/Units 06:51 11:43 RBC (4.30-5.90) m/uL Hgb (13.0-17.5) gm/dL Hct (39.0-53.0) % MCV (80.0-100.0) fL MCHC (31.0-37.0) g/dL RDW (11.5-15.5) % Plt Count (150-450) k/uL Neutrophils # (1.3-7.7) k/uL Lymphocytes # (1.0-4.8) k/uL Macrocytosis PT (9.0-12.0) sec INR (<1.2) ABG pH (7.35-7.45) ABG pCO2 (35-45) mmHg ABG pO2 (83-108) mmHg ABG Total CO2 (19-24) mmol/L Sodium 146 H (137-145) mmol/L Chloride 111 H (98-107) mmol/L BUN 83 H (9-20) mg/dL Creatinine 1.88 H (0.66-1.25) mg/dL Glucose 127 H (74-99) mg/dL POC Glucose (mg/dL) 160 H (75-99) mg/dL Calcium 8.2 L (8.4-10.2) mg/dL Total Protein 5.4 L (6.3-8.2) g/dL Albumin 2.6 L (3.5-5.0) g/dL Vitamin B12 (200.0-944.0) pg/mL Assessment and Plan Assessment: 1. Acute kidney injury, ATN associated with hemodynamic instability. Patient also has underlying urine retention, currently with indwelling Cortes catheter Urine output is maintained. Renal function continues to improve. 2. 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 Status post mitral valve replacement, tricuspid valve repair and coronary artery bypass surgery 1 4. Volume overload, status post diuresis 4. Metabolic acidosis associated with acute kidney injury currently improved 6. Acute blood loss anemia postop status post packed RBCs transfusion, currently maintained on Aranesp. Status post IV iron 7. CK D mineral bone disorder currently maintained on PhosLo 8. Hypernatremia associated with free water deficit, status post D5W. We will add free water with tube feedings once the acute feeding is started Plan: Start free water down feeding tube later on today when tube feedings are started. Repeat labs in a.m.
--- NOTE | 2021-08-21 13:28 | P.PN ---
Subjective Progress Note Date: 08/21/21 CHIEF COMPLAINT: Malnutrition HISTORY OF PRESENT ILLNESS: Patient is status post EGD with PEG tube placement. Tube Feedings to be started today. He also was restarted on oral diet. He ate a few bites. Afebrile. Denies any abdominal pain. Denies any nausea or vomiting. WBC 9.7 HGB 9.3 cr 1.88 albumin 2.6 PHYSICAL EXAM: VITAL SIGNS: Reviewed. GENERAL: Well-developed in no acute distress. HEENT: No sclera icterus. Extraocular movements grossly intact. Moist buccal mucosa. Head is atraumatic, normocephalic. ABDOMEN: Soft. Nondistended. Nontender. PEG tube site clean dry and intact NEUROLOGIC: Alert and oriented. Cranial nerves II through XII grossly intact. ASSESSMENT: 1. Severe protein calorie malnutrition with poor oral intake 2. Generalized weakness 3. Status post mitral valve replacement, tricuspid valve repair and one vessel CABG with Dr. Collado PLAN: -Okay to start tube feedings -Continue supportive care Physician Refrigeration Engineer note has been reviewed by physician. Signing provider agrees with the documented findings, assessment, and plan of care. I have personally seen and examined the patient, reviewed the DIRECTOR OF SCIENTIFIC RESEARCH /PAs history, exam and MDM and agree with the assessment and plan as written. Based on total visit time, I have performed more than 50% of the visit. As above: Patient doing well today. Only mild discomfort at PEG tube site. Continue gradually advancing tube feeds as tolerated. Objective - Vital Signs Vital signs: Vital Signs Temp 97.6 F 08/21/21 04:00 Pulse 78 08/21/21 11:22 Resp 23 08/21/21 07:00 BP 112/67 08/21/21 07:00 Pulse Ox 100 08/21/21 07:00 Intake & Output 08/20/21 08/21/21 08/21/21 18:59 06:59 18:59 Intake Total 1400 900 75 Output Total 670 745 45 Balance 730 155 30 Weight 67.2 kg 68.7 kg 68.7 kg Intake: IV 1200 900 75 Dextrose 5% in Water 1, 1050 900 75 000 ml @ 75 mls/hr IV . [id number] [facility] Rx#:[id number] Intake, IV Titration 200 Amount Dextrose 5% in Water 1, 200 000 ml @ 75 mls/hr IV . [id number] [facility] Rx#:[id number] Output: Drainage [address] 0 Right Posterior 0 Urine 670 745 45 Other: Voiding Method Indwelling Catheter Indwelling Catheter ABP, PAP, CO, CI - Last Documented Arterial Blood Pressure 119/35 Pulmonary Artery Pressure 35/28 Cardiac Output 5 Cardiac Index 2.7 - Labs CBC & Chem 7: 08/21/21 06:51 08/21/21 06:51 Labs: Abnormal Lab Results - Last 24 Hours (Table) 08/20/21 08/20/21 08/20/21 Range/Units 07:09 15:08 17:50 RBC (4.30-5.90) m/uL Hgb (13.0-17.5) gm/dL Hct (39.0-53.0) % MCV (80.0-100.0) fL MCHC (31.0-37.0) g/dL RDW (11.5-15.5) % Plt Count (150-450) k/uL Neutrophils # (1.3-7.7) k/uL Lymphocytes # (1.0-4.8) k/uL Macrocytosis PT (9.0-12.0) sec INR (<1.2) ABG pH 7.48 H (7.35-7.45) ABG pCO2 34 L (35-45) mmHg ABG pO2 62 L (83-108) mmHg ABG Total CO2 26 H (19-24) mmol/L Sodium (137-145) mmol/L Chloride (98-107) mmol/L BUN (9-20) mg/dL Creatinine (0.66-1.25) mg/dL Glucose (74-99) mg/dL POC Glucose (mg/dL) 175 H (75-99) mg/dL Calcium (8.4-10.2) mg/dL Total Protein (6.3-8.2) g/dL Albumin (3.5-5.0) g/dL Vitamin B12 1645.0 H (200.0-944.0) pg/mL 08/21/21 08/21/21 08/21/21 Range/Units 06:30 06:51 06:51 RBC 3.00 L (4.30-5.90) m/uL Hgb 9.3 L (13.0-17.5) gm/dL Hct 32.9 L (39.0-53.0) % MCV 109.5 H (80.0-100.0) fL MCHC 28.2 L (31.0-37.0) g/dL RDW 20.1 H (11.5-15.5) % Plt Count 102 L (150-450) k/uL Neutrophils # 9.0 H (1.3-7.7) k/uL Lymphocytes # 0.2 L (1.0-4.8) k/uL Macrocytosis Marked A PT 22.2 H (9.0-12.0) sec INR 2.2 H (<1.2) ABG pH (7.35-7.45) ABG pCO2 (35-45) mmHg ABG pO2 (83-108) mmHg ABG Total CO2 (19-24) mmol/L Sodium (137-145) mmol/L Chloride (98-107) mmol/L BUN (9-20) mg/dL Creatinine (0.66-1.25) mg/dL Glucose (74-99) mg/dL POC Glucose (mg/dL) 140 H (75-99) mg/dL Calcium (8.4-10.2) mg/dL Total Protein (6.3-8.2) g/dL Albumin (3.5-5.0) g/dL Vitamin B12 (200.0-944.0) pg/mL 08/21/21 08/21/21 Range/Units 06:51 11:43 RBC (4.30-5.90) m/uL Hgb (13.0-17.5) gm/dL Hct (39.0-53.0) % MCV (80.0-100.0) fL MCHC (31.0-37.0) g/dL RDW (11.5-15.5) % Plt Count (150-450) k/uL Neutrophils # (1.3-7.7) k/uL Lymphocytes # (1.0-4.8) k/uL Macrocytosis PT (9.0-12.0) sec INR (<1.2) ABG pH (7.35-7.45) ABG pCO2 (35-45) mmHg ABG pO2 (83-108) mmHg ABG Total CO2 (19-24) mmol/L Sodium 146 H (137-145) mmol/L Chloride 111 H (98-107) mmol/L BUN 83 H (9-20) mg/dL Creatinine 1.88 H (0.66-1.25) mg/dL Glucose 127 H (74-99) mg/dL POC Glucose (mg/dL) 160 H (75-99) mg/dL Calcium 8.2 L (8.4-10.2) mg/dL Total Protein 5.4 L (6.3-8.2) g/dL Albumin 2.6 L (3.5-5.0) g/dL Vitamin B12 (200.0-944.0) pg/mL
--- NOTE | 2021-08-21 17:12 | PN ---
PROGRESS NOTE DATE OF SERVICE: 08/21/2021 This 81-year-old gentleman who was admitted with mitral valve replacement also had chronic subacute strokes. Patient has also weakness. Patient also had a PEG tube inserted today. Patient is being started on anticoagulation. Multiple consultants are following the patient closely. The patient had right-sided pneumonia as well. Past medical history reviewed. Review of systems could not be taken; the patient is mildly confused. CURRENT MEDICATIONS: Reviewed. They include Tylenol and DuoNeb. Doses and other medications are reviewed. PHYSICAL EXAMINATION: Pulse is 67, blood pressure 112/67, respiration 23. CHEST: Bilateral scattered rhonchi. CARDIOVASCULAR: S1, S2 muffled. ABDOMEN: Soft. NERVOUS SYSTEM: Diffusely weak. LABS: Reviewed. Hemoglobin 9.3. ASSESSMENT: 1. Status post mitral valve replacement, tricuspid valve repair and single-vessel graft. 2. Right pleural effusion. 3. Chronic obstructive pulmonary disease. 4. 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 5. Renal insufficiency. 6. Klebsiella pneumoniae. 7. Hypoglycemia. 8. Gait dysfunction. 9. Poor nutrition, status post PEG tube placement. RECOMMENDATIONS AND DISCUSSION: I recommend to continue current medications, continue with the monitoring, symptomatic treatment. Continue with the PEG tube placement. Aspiration precautions. Continue the rest of the medication. Bronchodilators. Monitor electrolytes closely. Monitor creatinine closely. PT/OT evaluation. Guarded prognosis. Further recommendations to follow. RICHARD / NATI: [id number] /
[2021-08-21 17:22] LABS: Glucose,Whole Blood 136 mg/dL (75-99)
[2021-08-21 22:28] LABS: Glucose,Whole Blood 195 mg/dL (75-99)
[2021-08-21] MEDS: CALCIUM ACETATE 667 MG TAB PO SCH (22:35)
[2021-08-21] MEDS: ATORVASTATIN 40 MG TAB PO SCH (22:35)
[2021-08-21] MEDS: MELATONIN 3 MG TABLET PO SCH (22:36)
--- NOTE | 2021-08-22 07:39 | P.PN ---
Subjective Progress Note Date: 08/22/21 Principal diagnosis: Mitral valve regurgitation, tricuspid valve regurgitation, coronary artery disease. Previous medical history of CAD with previous cardial infarction and PCI, hypertension, chronic atrial fibrillation on Coumadin for anticoagulation status post cardioversion, sick sinus syndrome [facility] [facility] permanent pacemaker placement in 2017, chronic systolic heart failure, atrial septal defect status post closure, previous MitraClip in 2019, chronic renal insufficiency, previous tobacco dependence, severe restrictive lung disease, obstructive sleep apnea, recurrent right-sided pleural effusio with previous thoracentesis x 4, remote history of pneumonia, untreated prostate cancer which was diagnosed in May 2019, family history of premature coronary artery disease POD #25 mitral valve replacement with 31 mm Mosaic porcine valve prosthesis, tricuspid valve repair with 30 mm MC3 band, coronary artery bypass grafting 1 with reverse saphenous vein graft to the obtuse marginal artery, endovascular vein harvest of the left greater saphenous vein, epi-aortic ultrasound, closure of the left atrial appendage, closure of ASD Postoperative acute blood loss anemia and thrombocytopenia, expected given hemodilution and cardiopulmonary bypass pump Coagulopathy, unexpected Right-sided pleural effusion, expected given history of previous right-sided effusion with thoracentesis 4, status post right-sided pigtail catheter placement by interventional radiology, status post right sided pleurX catheter Leukocytosis, afebrile, sputum culture positive for Klebsiella pneumoniae Altered mental status after surgery due to delirium from lack of sleep, resolved Urinary retention, expected given his history of prostate cancer, requiring placement of Cortes catheter POD #2 EGD with PEG tube placement The patient was seen and examined this morning sitting up in bed in the intensive care unit in no acute distress. He denies any pain other than mouth pain, denies shortness of breath except when ambulating, does have frequent nonproductive cough. Currently on 3 L nasal cannula, only achieving 500 mL on his incentive spirometry this morning. Remains in chronic controlled atrial fibrillation, occasionally paced at 70 bpm. Continues to ambulate in the hallw ay with minimal assistance but does require frequent rest breaks. Tube feeding was initiated last night, patient to receive tube feeding at night time only from 6 PM to 6 AM to supplement nutrition. Cortes catheter was again discontinued yesterday to try another voiding trial, however patient was unable to void and had to receive straight cath 2. Pleurx catheter was drained yesterday for 200 mL drainage. Midnight nurse reports patient did not want to leave his BiPAP on last night, only wore for approximate 3 hours although he kept fidgeting with it and trying to remove it, he did get some sleep after it was finally removed. Anticipate discharge to [facility] tomorrow. updated at the bedside yesterday, all questions answered. Objective - Vital Signs Vital signs: Vital Signs Temp 98.2 F 08/22/21 04:00 Pulse 70 08/22/21 05:00 Resp 20 08/22/21 05:00 BP 96/59 08/22/21 05:00 Pulse Ox 97 08/22/21 05:00 Intake & Output 08/21/21 08/22/21 08/22/21 18:59 06:59 18:59 Intake Total 955 840 Output Total 840 500 Balance 115 340 Weight 68.7 kg Intake: IV 375 Dextrose 5% in Water 1, 375 000 ml @ 75 mls/hr IV . [id number] [facility] Rx#:[id number] Oral 580 Tube Feeding 240 Other 600 Output: Drainage [address] 200 Urine 440 500 Post Void Residual 200 Other: Voiding Method Indwelling Catheter ABP, PAP, CO, CI - Last Documented Arterial Blood Pressure 119/35 Pulmonary Artery Pressure 35/28 Cardiac Output 5 Cardiac Index 2.7 - Exam CONSTITUTIONAL: Appears comfortable, cooperative, no acute distress RESPIRATORY: Lungs sounds diminished bilaterally. Respirations even, nonlabored. Currently on 3 L nasal cannula with oxygen saturation 99%. Only able to achieve 500 mL on incentive spirometry this morning. Strong frequent nonproductive cough. CARDIOVASCULAR: S1, S2 present. Controlled atrial fibrillation/V paced on telemetry with heart rate in the 70s. Sternum stable. Palpable peripheral pulses bilaterally. No edema present. No calf pain or tenderness noted. Heart hugger in place. Antiembolism stockings, SCDs present. GASTROINTESTINAL: Abdomen soft, nontender, non-distended. Active bowel sounds present 4 quadrants. Tolerating minimal diet due to mouth pain. Positive bowel movement 08/15/21. PEG tube in place, received tube feedings last night from 6 PM to 6 AM GENITOURINARY: Was straight cathed twice since Cortes removal, 940 mL urine output in the last 24 hours INTEGUMENTARY: Skin is warm and dry with evidence of good perfusion. Anterior chest incision well approximated. Left lower extremity EVH site well approximated without redness or drainage. Right pleurx cath site without redness, dressing present. PEG tube site without redness or drainage NEUROLOGIC: Cranial nerves II through XII intact MUSKULOSKELETAL: Able to move all extremities, strength equal bilaterally but generalized weakness present PSYCHIATRIC: Oriented to person place and time, flat affect, minimal effort given to participate in care - Allied health notes Allied health notes reviewed: nursing - Labs CBC & Chem 7: 08/21/21 06:51 08/21/21 06:51 Labs: Abnormal Lab Results - Last 24 Hours (Table) 08/21/21 08/21/21 08/21/21 Range/Units 06:51 06:51 06:51 RBC 3.00 L (4.30-5.90) m/uL Hgb 9.3 L (13.0-17.5) gm/dL Hct 32.9 L (39.0-53.0) % MCV 109.5 H (80.0-100.0) fL MCHC 28.2 L (31.0-37.0) g/dL RDW 20.1 H (11.5-15.5) % Plt Count 102 L (150-450) k/uL Neutrophils # 9.0 H (1.3-7.7) k/uL Lymphocytes # 0.2 L (1.0-4.8) k/uL Macrocytosis Marked A PT 22.2 H (9.0-12.0) sec INR 2.2 H (<1.2) Sodium 146 H (137-145) mmol/L Chloride 111 H (98-107) mmol/L BUN 83 H (9-20) mg/dL Creatinine 1.88 H (0.66-1.25) mg/dL Glucose 127 H (74-99) mg/dL POC Glucose (mg/dL) (75-99) mg/dL Calcium 8.2 L (8.4-10.2) mg/dL Total Protein 5.4 L (6.3-8.2) g/dL Albumin 2.6 L (3.5-5.0) g/dL 08/21/21 08/21/21 08/21/21 Range/Units 11:43 17:19 22:27 RBC (4.30-5.90) m/uL Hgb (13.0-17.5) gm/dL Hct (39.0-53.0) % MCV (80.0-100.0) fL MCHC (31.0-37.0) g/dL RDW (11.5-15.5) % Plt Count (150-450) k/uL Neutrophils # (1.3-7.7) k/uL Lymphocytes # (1.0-4.8) k/uL Macrocytosis PT (9.0-12.0) sec INR (<1.2) Sodium (137-145) mmol/L Chloride (98-107) mmol/L BUN (9-20) mg/dL Creatinine (0.66-1.25) mg/dL Glucose (74-99) mg/dL POC Glucose (mg/dL) 160 H 136 H 195 H (75-99) mg/dL Calcium (8.4-10.2) mg/dL Total Protein (6.3-8.2) g/dL Albumin (3.5-5.0) g/dL - Imaging and Cardiology Chest x-ray: image reviewed Assessment and Plan Assessment: 1. Mitral valve regurgitation, previous MitraClip in 2019, status post post mitral valve replacement 2. Tricuspid valve regurgitation, status post tricuspid valve repair 3. Coronary artery disease with previous myocardial infarction and PCI, status post 1 vessel CABG 4. History of hypertension 5. Chronic atrial fibrillation on Coumadin for anticoagulation status post cardioversion, status post closure of the left atrial appendage 6. Sick sinus syndrome status post [facility] [facility] permanent pacemaker placement in 2017 7. Chronic systolic heart failure 8. Atrial septal defect status post closure 9. Acute on chronic renal insufficiency stage IIIB, baseline creatinine 1.6-1.7 10. Previous tobacco dependence 11. Severe restrictive lung disease, preoperative FEV1 47% of predicted 12. Recurrent right-sided pleural effusion, patient had right sided thoracentesis twice in 2019 and twice in 2020, status post right-sided pigtail catheter placement by IR, status post right sided pleurX catheter placement 13. Obstructive sleep apnea 14. Remote history of pneumonia 15. History of prostate cancer, untreated 16. Family history of premature coronary artery disease 17. Postoperative acute blood loss anemia and thrombocytopenia, expected 18. Coagulopathy, unexpected 19. Leukocytosis, elevated pro-calcitonin, afebrile, sputum culture positive for Klebsiella pneumoniae 20. Altered mental status after surgery due to delirium from lack of sleep, resolved 21. Urinary retention requiring placement of Cortes catheter 22. Malnutrition and general debility, status post PEG tube placement for supplemental feeding Plan: 1. Continue low-dose aspirin, statin. Hold beta shila due to hypotension 2. Continue Coumadin, will monitor daily PT/INR. Goal INR 2-3 3. Wean O2 as tolerated. Encourage incentive spirometry use 10 times every louise r while awake. Bronchodilators per pulmonology 4. Increase activity, ambulate minimum 4 times in the hallway daily. Out of bed for all meals. Shower daily. PT/OT/cardiac rehab following. 5. Will monitor daily labs and x-rays. Electrolyte replacement per protocol. Continue Bumex 2 mg oral daily 6. GI/DVT prophylaxis 7. Insulin management per primary care service. Patient is not diabetic, preoperative hemoglobin A1c 5.8% 8. Pain control per current medication regimen. Avoid narcotics 9. Strict accurate intake and output. Daily weights 10. Encourage oral intake. Tube feeding to continue from 6 PM to 6 AM to supplement nutrition 11. Discharge planning in progress. Anticipate discharge to [facility] tomorrow 12. More recommendations to follow based on patient's progress
[2021-08-22 08:01] LABS: Anisocytosis Moderate; Basophils % (A) 0 %; Eosinophils % (A) 0 %; HCT 30.7 % (39.0-53.0); HGB 8.9 gm/dL (13.0-17.5); Hypochromasia Marked; Lymphocytes # (A) 0.3 k/uL (1.0-4.8); Lymphocytes % (A) 2 %; MCH 31.2 pg (25.0-35.0); MCHC 29.1 g/dL (31.0-37.0); Macrocytosis Marked; Mean Platelet Volume 10.8; Monocytes # (A) 0.5 k/uL (0-1.0); Monocytes % (A) 3 %; Neutrophils % (A) 95 %; Platelet Count 104 k/uL (150-450); Poikilocytosis Moderate; RBC 2.86 m/uL (4.30-5.90); RDW 20.2 % (11.5-15.5); WBC 17.9 k/uL (3.8-10.6)
[2021-08-22] MEDS: SYMBICORT 160-4.5 MCG INHALER INHALATION SCH ×2 (08:03→19:28)
[2021-08-22] MEDS: IPRATROPIUM-ALBUTEROL 3 ML NEB INHALATION SCH ×4 (08:03→19:28)
--- NOTE | 2021-08-22 08:04 | XR ---
EXAMINATION TYPE: XR chest 1V portable DATE OF EXAM: 08/22/2021 COMPARISON: 08/21/2021 INDICATION: Short of breath TECHNIQUE: Single frontal view of the chest is obtained. FINDINGS: The heart size is enlarged. The pulmonary vasculature is normal. Right lower lobe infiltrate is present. A small right pleural effusion is present. Catheter is presen t at the right lung base. Electronic device overlies the left chest. IMPRESSION: 1. Right lower lobe infiltrate and small pleural fluid collection. Catheter is present at the right b ase.
[2021-08-22 08:07] LABS: INR 2.7 (<1.2); Prothrombin Time 26.5 sec (9.0-12.0)
[2021-08-22 08:09] LABS: MCV 107.2 fL (80.0-100.0)
[2021-08-22 08:22] LABS: Albumin 2.5 g/dL (3.5-5.0); Calcium 8.5 mg/dL (8.4-10.2); Potassium 4.3 mmol/L (3.5-5.1); Total Protein 5.3 g/dL (6.3-8.2)
[2021-08-22] MEDS: TAMSULOSIN 0.4 MG CAP.ER.24H PO SCH (08:34)
[2021-08-22] MEDS: CHLORHEXIDINE GLUCONATE 15 ML CUP MUCOUS MEM SCH ×2 (08:34→23:32)
[2021-08-22] MEDS: MEGESTROL 400 MG/10 ML CUP PO SCH (08:34)
[2021-08-22] MEDS: MAG HYDROX/AL HYDROX/SIMETH 30 ML, LIDOCAINE VISCOUS 2% 30 ML, NYSTATIN 100,000 UNIT/ML... PO SCH ×9 (08:34→23:34)
[2021-08-22] MEDS: BUMETANIDE 1 MG TAB PO SCH (08:35)
[2021-08-22] MEDS: FERROUS SULFATE 325 MG TAB PO SCH (08:35)
[2021-08-22] MEDS: ASPIRIN 81 MG PO SCH (08:35)
[2021-08-22] MEDS: ASCORBIC ACID 500 MG TAB PO SCH (08:35)
[2021-08-22] MEDS: WARFARIN 1 MG TAB PO SCH (08:35)
[2021-08-22] MEDS: SERTRALINE 50 MG TAB PO SCH (08:35)
[2021-08-22 08:48] LABS: Glucose,Whole Blood 150 mg/dL (75-99)
[2021-08-22] MEDS ORDERED: bisacodyL 10 MG SUPP RECTAL SCH (09:00)
[2021-08-22] MEDS: PANTOPRAZOLE 40 MG TABLET PO SCH (09:09)
[2021-08-22] MEDS: INSULIN ASPART (NovoLOG) 100 UNIT/ML VIAL SQ SCH ×4 (09:09→21:39)
[2021-08-22] MEDS ORDERED: guaiFENesin 600 MG TABLET.ER PO PRN (10:03)
--- NOTE | 2021-08-22 11:10 | P.PN ---
Subjective Progress Note Date: 08/22/21 The patient is seen today 08/12/2021 in follow-up in the intensive care unit. He is postoperative day #15 above mitral valve replacement, tricuspid valve repair and coronary artery bypass grafting times one. He had had issues with recurrent right-sided pleural effusion and is status post right-sided pigtail catheter in place. Proximal main 400 ML's of serosanguineous fluid drained overnight. Left-sided chest tube remains in place with an another 200 ML's of serosanguineous fluid drained. He is requiring 6 L of high flow nasal cannula to maintain O2 saturations in the 90s. Chest x-ray shows improvement in the pleural effusions. There is still bilateral opacities and some interstitial changes consistent with congestive heart failure. Moderate cardiomegaly. He is alert and oriented today. He still has complaints of a sore mouth. His appetite has been poor. Current cardiac rhythm is paced. Urine cultures revealed no growth. Blood cultures reveal no growth. Sputum culture from 10/2021 was positive for Klebsiella pneumoniae. White count 13.2. Hemoglobin 8.5. Platelets 261. Sodium 133. Potassium 4.8. Bicarb 21. BUN 119. Creatinine 2.80. Glucose 138. He is status post 2 units of packed red blood cells, 4 units of fresh frozen plasma and 2 units of platelets this admission. He is continued on nystatin swish and swallow, bronchodilators, heparin for DVT prophylaxis. Remains on Bumex. Currently in a -125 ML balance. Patient is seen today 08/13/2021 in follow-up in the intensive care unit. He is postoperative day #16. He is currently resting fairly comfortably in bed. He is requiring 10 L high flow nasal cannula to maintain O2 saturations in the low 90s. His bilateral chest tubes have been removed. This morning chest x-ray revealed loculated right costophrenic angle pneumothorax. Minimal right apical pneumothorax. Evidence of cardiomegaly with prominent pulmonary vascular congestion. Previous sputum had been positive for Klebsiella pneumoniae. White count 13.8. Hemoglobin 8.7. Platelets 242. INR 2.0. Sodium 134. Potassium 5.2. BUN 126. Creatinine 2.4. He is continued on DuoNeb inhalations, IV Bumex, antibiotics in the form of cefepime. He'll also be trialed on BiPAP 04/07 and titrate the FiO2. He is continued on Protonix for GI prophylaxis. His appetite has improved on a pured diet. He seems to tolerate that better. Less mouth discomfort. The patient is seen today 08/19/2021 in follow-up in intensive care unit. He is currently sitting up in a chair at the bedside. Awake and alert in no acute distress. Skin of the brain revealed chronic ischemic changes and scattered chronic infarcts. 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 No intracranial hemorrhage or gross acute cortical infarct. He is still maint aining O2 saturations in the 90s on 3 L/m per nasal cannula. He is pulling approximately 1000 ML's on his incentive spirometer. Chest x-ray continues to show diffuse increased lung markings in the right mid and lower lung field. Small right pleural effusion is present. Mild left basilar infiltrate. Pleurx catheter drained by CT services for 250 mL today. He is status post 2 units of packed red blood cells, 4 units of fresh frozen plasma, 2 units of platelets this admission. Sputum culture had been previously positive for Klebsiella pneumonia. White count 10.6. Hemoglobin 8.9. Platelets 134. INR 2.2. Sodium 148. Potassium 3.9. Chloride 114. Bicarb 26. BUN 119. Creatinine 2.41. Glucose 133. He continues to have poor oral intake. He continues to eat less than 50% of his meals. The plan is for possible PEG tube placement. He is continued on DuoNeb inhalations, Symbicort inhalations. Initiated back on his Zoloft. The patient is seen today 08/20/2021 in follow-up in the intensive care unit. He is awake and alert in no acute distress. He is maintaining O2 saturations in the 90s on 6 L high flow nasal cannula. Chest x-ray continues to show persistent pulmonary vascular congestion with right-sided pleural effusion and pleural parenchymal density with cardiomegaly. Hilar mediastinal structures are within normal limits. He is currently sitting up in the recliner at the bedside. He did utilize BiPAP last night 04/07 and 50% FiO2. He has D5W running at 75 ML's per hour. PEG tube was not placed yesterday due to elevated INR. INR today is 1.9. Blood glucose 161. The rest of the labs are pending. He is continued on DuoNeb inhalations, Symbicort. Encouraged to continue to work well with the incentive spirometer. He has been seen by psychiatric services for questionable depression. He is continued on Zoloft. Remeron was added at bedtime. He is also on Megace to try to improve his appetite. Heparin for DVT prophylaxis. The patient is seen today 08/22/2019 in follow-up in the intensive care unit. He is currently sitting up in a chair at the bedside. Awake and alert in no acute distress. He is down to 2 L nasal cannula maintaining O2 saturations in the 90s. He is utilizing BiPAP at night 04/07 and 50% FiO2. He has D5W at 75 ML's per hour. He did have a PEG tube placed yesterday. He is continued on Symbicort and DuoNeb inhalations. Anticoagulated with warfarin. White count 9.7. Hemoglobin 9.3. We will count 102,000. INR 2.2. Sodium 136. Potassium 4.0. The 183. Creatinine 1.88. AST 33. ALT 18. Albumin 2.6. Chest x-ray continues to show pleural effusion and associated atelectasis. CT services removed 200 mL of thin serosanguineous drainage from his right Pleurx catheter today. The patient is seen today 08/22/2021 in follow-up in the intensive care unit. He is awake and alert in no acute distress. Sitting up at the bedside. Currently on 5 L high flow nasal cannula with O2 saturation at 94%. He is afebrile. Hemodynamically stable. 6 continues to show right lower lobe infiltrate with small pleural effusion. Pleurx catheter remains in place. Sputum culture had been positive for Klebsiella pneumoniae. . Completed a course of antibiotics. He remains on Symbicort, DuoNeb inhalations, continues to work with the incentive spirometer. Antegrade related with warfarin and INR 2.7. He white count 17.9. Hemoglobin 8.9. Platelets 104. Sodium 146. Potassium 4.3. BUN 101. Creatinine 2.06. Glucose 142. Objective - Vital Signs Vital signs: Vital Signs Temp 98.2 F 08/22/21 04:00 Pulse 77 08/22/21 10:59 Resp 18 08/22/21 09:00 BP 105/63 08/22/21 09:00 Pulse Ox 94 L 08/22/21 09:00 Intake & Output 08/21/21 08/22/21 08/22/21 18:59 06:59 18:59 Intake Total 955 840 240 Output Total 840 500 Balance 115 340 240 Weight 68.7 kg Intake: IV 375 Dextrose 5% in Water 1, 375 000 ml @ 75 mls/hr IV . [id number] [facility] Rx#:[id number] Oral 580 240 Tube Feeding 240 0 Other 600 Output: Drainage [address] 200 Urine 440 500 Post Void Residual 200 Other: Voiding Method Indwelling Catheter ABP, PAP, CO, CI - Last Documented Arterial Blood Pressure 119/35 Pulmonary Artery Pressure 35/28 Cardiac Output 5 Cardiac Index 2.7 - Exam CONSTITUTIONAL: Alert frail, cachectic 81-year-old male patient, sitting up to the bedside chair in the intensive care unit, comfortable, cooperative, no respiratory distress. Currently on 5 L high flow nasal cannula. HEENT: Neck is supple, no JVD, no lymphadenopathy. RESPIRATORY: Lungs sounds with diminished bilateral bases, right greater than left. Respirations are symmetrical and nonlabored. Able to achieve 750-1000 MLS on the incentive spirometer. Right-sided Pleurx catheter remains in place. CARDIOVASCULAR: Regular rhythm and rate. S1 and S2 present, negative for S3, gallop or murmur. Sternum is stable. Palpable peripheral pulses bilaterally. No calf pain or tenderness noted. Heart hugger in place with patient demonstrating appropriate use with encouragement. Knee-high SUMI hose and sequential compression devices in place to his bilateral lower extremities. Bedside telemetry showing paced rhythm at 60 BPM. GASTROINTESTINAL: Abdomen soft, nontender, distended. Active bowel sounds present 4 quadrants. Tolerating diet but poor appetite. No guarding or rigidity. GENITOURINARY: Continues to void. Urine output is adequate for now. INTEGUMENTARY: Skin is warm and dry with no evidence of clubbing or cyanosis. Midline sternal incision clean dry and well approximated, covered with dry intact dressing. Left lower extremity EVH site well approximated without redness or drainage. NEUROLOGIC: Cranial nerves II through XII intact. No focal deficits. MUSKULOSKELETAL: Able to move all extremities, strength equal bilaterally, generalized weakness. PSYCHIATRIC: Alert and oriented 3, appropriate affect. - Labs CBC & Chem 7: 08/22/21 07:29 08/22/21 07:29 Labs: Abnormal Lab Results - Last 24 Hours (Table) 08/21/21 08/21/21 08/21/21 Range/Units 11:43 17:19 22:27 WBC (3.8-10.6) k/uL RBC (4.30-5.90) m/uL Hgb (13.0-17.5) gm/dL Hct (39.0-53.0) % MCV (80.0-100.0) fL MCHC (31.0-37.0) g/dL RDW (11.5-15.5) % Plt Count (150-450) k/uL Neutrophils # (1.3-7.7) k/uL Lymphocytes # (1.0-4.8) k/uL Macrocytosis PT (9.0-12.0) sec INR (<1.2) Sodium (137-145) mmol/L Chloride (98-107) mmol/L BUN (9-20) mg/dL Creatinine (0.66-1.25) mg/dL Glucose (74-99) mg/dL POC Glucose (mg/dL) 160 H 136 H 195 H (75-99) mg/dL Total Protein (6.3-8.2) g/dL Albumin (3.5-5.0) g/dL 08/22/21 08/22/21 08/22/21 Range/Units 07:29 07:29 07:29 WBC 17.9 H (3.8-10.6) k/uL RBC 2.86 L (4.30-5.90) m/uL Hgb 8.9 L (13.0-17.5) gm/dL Hct 30.7 L (39.0-53.0) % MCV 107.2 H (80.0-100.0) fL MCHC 29.1 L (31.0-37.0) g/dL RDW 20.2 H (11.5-15.5) % Plt Count 104 L (150-450) k/uL Neutrophils # 17.0 H (1.3-7.7) k/uL Lymphocytes # 0.3 L (1.0-4.8) k/uL Macrocytosis Marked A PT 26.5 H (9.0-12.0) sec INR 2.7 H (<1.2) Sodium 146 H (137-145) mmol/L Chloride 111 H (98-107) mmol/L BUN 101 H* (9-20) mg/dL Creatinine 2.06 H (0.66-1.25) mg/dL Glucose 142 H (74-99) mg/dL POC Glucose (mg/dL) (75-99) mg/dL Total Protein 5.3 L (6.3-8.2) g/dL Albumin 2.5 L (3.5-5.0) g/dL 08/22/21 Range/Units 08:47 WBC (3.8-10.6) k/uL RBC (4.30-5.90) m/uL Hgb (13.0-17.5) gm/dL Hct (39.0-53.0) % MCV (80.0-100.0) fL MCHC (31.0-37.0) g/dL RDW (11.5-15.5) % Plt Count (150-450) k/uL Neutrophils # (1.3-7.7) k/uL Lymphocytes # (1.0-4.8) k/uL Macrocytosis PT (9.0-12.0) sec INR (<1.2) Sodium (137-145) mmol/L Chloride (98-107) mmol/L BUN (9-20) mg/dL Creatinine (0.66-1.25) mg/dL Glucose (74-99) mg/dL POC Glucose (mg/dL) 150 H (75-99) mg/dL Total Protein (6.3-8.2) g/dL Albumin (3.5-5.0) g/dL Assessment and Plan Assessment: 1 Mitral valve regurgitation, status post mitral valve replacement, tricuspid valve regurgitation, status post tricuspid valve repair, coronary artery disease, status post 1 vessel CABG 2 Continued right-sided pleural effusion, Pleurx catheter placed 3 Poor oral intake, PEG tube placed on 08/20/2021 4 Benign essential hypertension 5 Chronic atrial fibrillation 6 History of sick sinus syndrome and previous pacemaker placement in 2017 7 Chronic systolic congestive heart failure 8 Atrial septal defect post closure 9 Acute on chronic renal failure, baseline creatinine 1.6-1.7. Creatinine 1.88 10 Obstructive sleep apnea syndrome 11 Chronic and recurrent right-sided pleural effusion requiring multiple thoracentesis procedures and now he continues to have a Pleurx catheter in place. 12 Postoperative acute blood loss anemia and thrombocytopenia, expected 13 Positive sputum for Klebsiella pneumonia, suspect Klebsiella pneumonia tracheobronchitis, completed cefepime Plan: The patient was seen and evaluated Chest x-ray and labs reviewed Currently on 5 L high flow nasal cannula Continues incentive spirometer, continued bronchodilators PEG tube placed, receiving tube feedings Continue to titrate his FiO2 as tolerated Increase his activity as tolerated Plan is for subacute rehabilitation post discharge We will continue to follow I have personally seen and examined the patient, performed the documentation and the assessment and plan as written. Number of minutes spent on the visit: 10.
[2021-08-22 12:01] LABS: Glucose,Whole Blood 152 mg/dL (75-99)
--- NOTE | 2021-08-22 12:18 | PN ---
PROGRESS NOTE DATE OF SERVICE: 08/22/2021 This 81-year-old gentleman admitted after bowel surgery had multiple medical issues. The patient shortness of breath. The patient has right pleural effusion. Patient also has poor feeding and a PEG tube was inserted yesterday. The patient is slightly hyponatremic at this time. The patient also had renal failure, which is being closely monitored. Multiple consultants are following the patient closely. Chest x-ray done today was reviewed personally. Past medical history reviewed. Review of systems could not be taken; the patient is slightly short of breath and confused. CURRENT MEDICATIONS: Reviewed. They include DuoNeb. Doses and other medications are also reviewed. PHYSICAL EXAMINATION: Pulse is 78, blood pressure 118/82, respiration 20. HEENT: Conjunctivae normal. NECK: No jugular venous distention. CARDIOVASCULAR: S1, S2 muffled. RESPIRATION: Bilateral scattered rhonchi and crackles. Expiratory wheezing. ABDOMEN: Soft. NERVOUS SYSTEM: No focal deficit. LABS: Labs at this time show hemoglobin is 8.9. Other labs are noted. ASSESSMENT: 1. Status post mitral valve replacement, tricuspid valve repair and single- vessel graft. 2. Right pleural effusion. 3. Chronic obstructive pulmonary disease. 4. 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 5. Renal insufficiency. 6. Klebsiella pneumoniae. 7. Hypoglycemia. 8. Gait dysfunction. 9. Poor nutritional support, status post PEG tube placement. RECOMMENDATIONS AND DISCUSSION: I recommend to continue current medications, continue with the monitoring, symptomatic treatment. Otherwise, add free water. Monitor electrolytes closely. Continue the bronchodilators. PT/OT evaluation. Closely follow with multiple consultants. Further recommendations will follow. MMPEÑAL / IJN: [id number] / [facility]
[2021-08-22] MEDS ORDERED: BUMETANIDE 0.25 MG/ML 4 ML VIAL IVP STA (13:28)
[2021-08-22] MEDS ORDERED: bisacodyL 10 MG SUPP RECTAL PRN (13:40)
[2021-08-22] MEDS: MULTIVITAMINS, THERA 1 EACH TAB PO SCH (13:41)
[2021-08-22] MEDS: THIAMINE 100 MG TAB PO SCH (13:41)
[2021-08-22] MEDS: FOLIC ACID 1 MG TAB PO SCH (13:41)
--- NOTE | 2021-08-22 13:52 | P.PN ---
Subjective Progress Note Date: 08/22/21 Principal diagnosis: Malnutrition Patient sitting up in a chair again today. Tolerating tube feeds at 30 mL per hour. No nausea or vomiting. No significant abdominal pain. Patient is somewhat short of breath today. Objective - Vital Signs Vital signs: Vital Signs Temp 97.3 F L 08/22/21 12:00 Pulse 84 08/22/21 13:00 Resp 37 H 08/22/21 13:00 BP 92/64 08/22/21 13:00 Pulse Ox 90 L 08/22/21 13:00 Intake & Output 08/21/21 08/22/21 08/22/21 18:59 06:59 18:59 Intake Total 955 840 290 Output Total 840 500 Balance 115 340 290 Weight 68.7 kg 68.7 kg Intake: IV 375 Dextrose 5% in Water 1, 375 000 ml @ 75 mls/hr IV . [id number] [facility] Rx#:[id number] Oral 580 240 Tube Feeding 240 0 Other 600 50 Output: Drainage [address] 200 Urine 440 500 Post Void Residual 200 Other: Voiding Method Indwelling Catheter # Voids 1 ABP, PAP, CO, CI - Last Documented Arterial Blood Pressure 119/35 Pulmonary Artery Pressure 35/28 Cardiac Output 5 Cardiac Index 2.7 - Exam Abdomen: Soft, nondistended, mild tenderness around PEG tube site - Labs CBC & Chem 7: 08/22/21 07:29 08/22/21 07:29 Labs: Abnormal Lab Results - Last 24 Hours (Table) 08/21/21 08/21/21 08/22/21 Range/Units 17:19 22:27 07:29 WBC 17.9 H (3.8-10.6) k/uL RBC 2.86 L (4.30-5.90) m/uL Hgb 8.9 L (13.0-17.5) gm/dL Hct 30.7 L (39.0-53.0) % MCV 107.2 H (80.0-100.0) fL MCHC 29.1 L (31.0-37.0) g/dL RDW 20.2 H (11.5-15.5) % Plt Count 104 L (150-450) k/uL Neutrophils # 17.0 H (1.3-7.7) k/uL Lymphocytes # 0.3 L (1.0-4.8) k/uL Macrocytosis Marked A PT (9.0-12.0) sec INR (<1.2) Sodium (137-145) mmol/L Chloride (98-107) mmol/L BUN (9-20) mg/dL Creatinine (0.66-1.25) mg/dL Glucose (74-99) mg/dL POC Glucose (mg/dL) 136 H 195 H (75-99) mg/dL Total Protein (6.3-8.2) g/dL Albumin (3.5-5.0) g/dL 08/22/21 08/22/21 08/22/21 Range/Units 07:29 07:29 08:47 WBC (3.8-10.6) k/uL RBC (4.30-5.90) m/uL Hgb (13.0-17.5) gm/dL Hct (39.0-53.0) % MCV (80.0-100.0) fL MCHC (31.0-37.0) g/dL RDW (11.5-15.5) % Plt Count (150-450) k/uL Neutrophils # (1.3-7.7) k/uL Lymphocytes # (1.0-4.8) k/uL Macrocytosis PT 26.5 H (9.0-12.0) sec INR 2.7 H (<1.2) Sodium 146 H (137-145) mmol/L Chloride 111 H (98-107) mmol/L BUN 101 H* (9-20) mg/dL Creatinine 2.06 H (0.66-1.25) mg/dL Glucose 142 H (74-99) mg/dL POC Glucose (mg/dL) 150 H (75-99) mg/dL Total Protein 5.3 L (6.3-8.2) g/dL Albumin 2.5 L (3.5-5.0) g/dL 08/22/21 Range/Units 12:00 WBC (3.8-10.6) k/uL RBC (4.30-5.90) m/uL Hgb (13.0-17.5) gm/dL Hct (39.0-53.0) % MCV (80.0-100.0) fL MCHC (31.0-37.0) g/dL RDW (11.5-15.5) % Plt Count (150-450) k/uL Neutrophils # (1.3-7.7) k/uL Lymphocytes # (1.0-4.8) k/uL Macrocytosis PT (9.0-12.0) sec INR (<1.2) Sodium (137-145) mmol/L Chloride (98-107) mmol/L BUN (9-20) mg/dL Creatinine (0.66-1.25) mg/dL Glucose (74-99) mg/dL POC Glucose (mg/dL) 152 H (75-99) mg/dL Total Protein (6.3-8.2) g/dL Albumin (3.5-5.0) g/dL Assessment and Plan (1) Malnutrition of moderate degree Narrative/Plan: Patient doing well as it pertains to his tube feedings. Continue advancing to goal. His activity as tolerated. Will reevaluate on Wednesday and likely loosen the bolster somewhat at that time. Please call Dr. Clark who is covering me over the weekend if needed. Current Visit: Yes Status: Acute Code(s): E44.0 - MODERATE PROTEIN-CALORIE MALNUTRITION SNOMED Code(s): 328930888
[2021-08-22] MEDS ORDERED: SCOPOLAMINE 1 MG/72 HR PATCH TRANSDERM SCH (14:30)
[2021-08-22] MEDS ORDERED: MIDODRINE 5 MG TAB PO ONE (15:03)
--- NOTE | 2021-08-22 15:07 | XR ---
EXAMINATION TYPE: XR chest 1V portable DATE OF EXAM: 08/22/2021 COMPARISON: 08/22/2021 INDICATION: Respiratory distress TECHNIQUE: Single frontal view of the chest is obtained. FINDINGS: The heart size is borderline in size. The pulmonary vasculature is prominent. There is diffuse increased lung markings in the right mid and lower lung field. A small right pleural effusion is present. Minimal left pleural effusion may be present. Some left perihilar increased dimitris g markings are present. Electronic device overlies left chest. Sternotomy wires are present. There ap pears to be a catheter at the right lung base. Very subtle minimal pneumothorax is present at the right apex. Follow-up is recommended. IMPRESSION: 1. Minimal right apical pneumothorax may be present. 2. Right lower lobe infiltrate with small right pleural effusion. 3. Minimal left pleural effusion. 4. Borderline cardiac size with prominent pulmonary vascular markings. Consider congestive heart fail ure differential. A [place] critical message alert has been initiated for Deanne Rivera via the [employer] al Results System on 08/22/2021 3:04 PM. This message alert has been sent to Deanne Rivera via the [employer] rences provided by the clinician for the receipt of Radiology Critical Findings. Message ID [id number].
[2021-08-22] MEDS ORDERED: ALBUMIN HUMAN 5% 250 ML IVPB ONE (15:20)
[2021-08-22] MEDS ORDERED: ALBUMIN HUMAN 5% 250 ML in EMPTY BAG 1 BAG IVPB STA (15:20)
[2021-08-22 15:46] LABS: ABG Base Excess -21.9 mmol/L; ABG Oxygen Saturation 61.3 % (94-97); ABG PCO2 30 mmHg (35-45); ABG TCO2 9 mmol/L (19-24); Allen Test Performed? Yes
--- NOTE | 2021-08-22 15:55 | P.PN ---
Subjective Patient is seen for follow-up for acute kidney injury on top of chronic kidney disease. He is s/p mitral valve replacement, tricuspid valve repair and coronary artery bypass grafting 1 on 07/28/2021 Patient is sitting up on a chair. Complaining of increased shortness of breath this morning Cortes catheter was removed bladder scan to be done later on today. Patient has had urine retention. Received Bumex 2 mg by mouth this morning. Objective - Vital Signs Vital signs: Vital Signs Temp 97.3 F L 08/22/21 12:00 Pulse 80 08/22/21 15:35 Resp 32 H 08/22/21 15:00 BP 93/62 08/22/21 15:00 Pulse Ox 91 L 08/22/21 15:00 Intake & Output 08/21/21 08/22/21 08/22/21 18:59 06:59 18:59 Intake Total 955 840 540 Output Total 840 500 Balance 115 340 540 Weight 68.7 kg 68.7 kg Intake: IV 375 250 Albumin Human 5% 250 ml @ 250 0 mls/hr IVPB [facility] Rx#:[id number] Dextrose 5% in Water 1, 375 000 ml @ 75 mls/hr IV . [id number] [facility] Rx#:[id number] Oral 580 240 Tube Feeding 240 0 Other 600 50 Output: Drainage [address] 200 Urine 440 500 Post Void Residual 200 Other: Voiding Method Indwelling Catheter # Voids 1 ABP, PAP, CO, CI - Last Documented Arterial Blood Pressure 119/35 Pulmonary Artery Pressure 35/28 Cardiac Output 5 Cardiac Index 2.7 - Exam Patient is awake comfortable. Not in any acute distress, mildly short of breath Examination of the heart S1 and S2 Examination lungs bilateral breath sounds heard, decreased breath sounds at the bases, occasional crackles Abdomen is soft Examination lower extremity shows trac1+ edema bilateral lower extremities HEAD PAPER TESTER exam grossly intact - Labs CBC & Chem 7: 08/22/21 07:29 08/22/21 07:29 Labs: Abnormal Lab Results - Last 24 Hours (Table) 08/21/21 08/21/21 08/22/21 Range/Units 17:19 22:27 07:29 WBC 17.9 H (3.8-10.6) k/uL RBC 2.86 L (4.30-5.90) m/uL Hgb 8.9 L (13.0-17.5) gm/dL Hct 30.7 L (39.0-53.0) % MCV 107.2 H (80.0-100.0) fL MCHC 29.1 L (31.0-37.0) g/dL RDW 20.2 H (11.5-15.5) % Plt Count 104 L (150-450) k/uL Neutrophils # 17.0 H (1.3-7.7) k/uL Lymphocytes # 0.3 L (1.0-4.8) k/uL Macrocytosis Marked A PT (9.0-12.0) sec INR (<1.2) Sodium (137-145) mmol/L Chloride (98-107) mmol/L BUN (9-20) mg/dL Creatinine (0.66-1.25) mg/dL Glucose (74-99) mg/dL POC Glucose (mg/dL) 136 H 195 H (75-99) mg/dL Total Protein (6.3-8.2) g/dL Albumin (3.5-5.0) g/dL 08/22/21 08/22/21 08/22/21 Range/Units 07:29 07:29 08:47 WBC (3.8-10.6) k/uL RBC (4.30-5.90) m/uL Hgb (13.0-17.5) gm/dL Hct (39.0-53.0) % MCV (80.0-100.0) fL MCHC (31.0-37.0) g/dL RDW (11.5-15.5) % Plt Count (150-450) k/uL Neutrophils # (1.3-7.7) k/uL Lymphocytes # (1.0-4.8) k/uL Macrocytosis PT 26.5 H (9.0-12.0) sec INR 2.7 H (<1.2) Sodium 146 H (137-145) mmol/L Chloride 111 H (98-107) mmol/L BUN 101 H* (9-20) mg/dL Creatinine 2.06 H (0.66-1.25) mg/dL Glucose 142 H (74-99) mg/dL POC Glucose (mg/dL) 150 H (75-99) mg/dL Total Protein 5.3 L (6.3-8.2) g/dL Albumin 2.5 L (3.5-5.0) g/dL 08/22/21 Range/Units 12:00 WBC (3.8-10.6) k/uL RBC (4.30-5.90) m/uL Hgb (13.0-17.5) gm/dL Hct (39.0-53.0) % MCV (80.0-100.0) fL MCHC (31.0-37.0) g/dL RDW (11.5-15.5) % Plt Count (150-450) k/uL Neutrophils # (1.3-7.7) k/uL Lymphocytes # (1.0-4.8) k/uL Macrocytosis PT (9.0-12.0) sec INR (<1.2) Sodium (137-145) mmol/L Chloride (98-107) mmol/L BUN (9-20) mg/dL Creatinine (0.66-1.25) mg/dL Glucose (74-99) mg/dL POC Glucose (mg/dL) 152 H (75-99) mg/dL Total Protein (6.3-8.2) g/dL Albumin (3.5-5.0) g/dL Assessment and Plan Assessment: 1. Acute kidney injury, ATN associated with hemodynamic instability. Patient also has underlying urine retention, had indwelling Cortes catheter, removed this morning for voiding trial. Renal function continues to improve. 2. 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 Status post mitral valve replacement, tricuspid valve repair and coronary artery bypass surgery 1 4. Volume overload 4. Metabolic acidosis associated with acute kidney injury currently improved 6. Acute blood loss anemia postop status post packed RBCs transfusion, currently maintained on Aranesp. Status post IV iron 7. CK D mineral bone disorder currently maintained on PhosLo 8. Hypernatremia associated with free water deficit, status post D5W. Receiving free water with tube feedings Plan: Give additional 0.5 mg of Bumex IV. Close monitoring for urine retention Repeat labs in a.m. Adjust free water with tube feedings based on serum sodium in a.m.
[2021-08-22 16:18] LABS: ABG Base Excess -27.1 mmol/L; ABG PO2 80 mmHg (83-108); ABG TCO2 5 mmol/L (19-24); Allen Test Performed? Yes
[2021-08-22] MEDS ORDERED: SODIUM BICARB 8.4% 50 ML SYR (1 MEQ/ML) ONE ×2 (16:20→16:26)
[2021-08-22 16:22] LABS: ABG HCO3 8 mmol/L (21-25); ABG PH 7.06 (7.35-7.45); ABG PO2 42 mmHg (83-108)
[2021-08-22 16:24] LABS: Anisocytosis Slight; Basophils % (A) 0 %; Eosinophils % (A) 0 %; HCT 34.4 % (39.0-53.0); HGB 9.7 gm/dL (13.0-17.5); Hypochromasia Marked; Lymphocytes # (A) 0.2 k/uL (1.0-4.8); Lymphocytes % (A) 3 %; MCH 30.8 pg (25.0-35.0); MCHC 28.1 g/dL (31.0-37.0); MCV 109.7 fL (80.0-100.0); Macrocytosis Marked; Mean Platelet Volume 11.1; Monocytes # (A) 0.2 k/uL (0-1.0); Monocytes % (A) 4 %; Neutrophils # (A) 5.7 k/uL (1.3-7.7); Neutrophils % (A) 91 %; Platelet Count 104 k/uL (150-450); Poikilocytosis Slight; RBC 3.13 m/uL (4.30-5.90); RDW 19.8 % (11.5-15.5); WBC 6.2 k/uL (3.8-10.6)
[2021-08-22 16:24] LABS: ABG HCO3 4 mmol/L (21-25); ABG PCO2 17 mmHg (35-45)
[2021-08-22] MEDS ORDERED: SODIUM BICARB 8.4% 50 ML SYR (1 MEQ/ML) IV STA (16:24)
[2021-08-22] MEDS ORDERED: propofoL 100 ML IV ONE (16:30)
[2021-08-22] MEDS ORDERED: NOREPINEPHRIN 4 MG-0.9% NS PMX 4 MG/250 ML ML IV ONE (16:30)
[2021-08-22 16:36] LABS: INR 2.8 (<1.2); Prothrombin Time 27.9 sec (9.0-12.0)
[2021-08-22 16:41] LABS: Albumin 2.4 g/dL (3.5-5.0); Calcium 8.3 mg/dL (8.4-10.2); Magnesium 2.9 mg/dL (1.6-2.3); Potassium 4.2 mmol/L (3.5-5.1); Total Bilirubin 1.1 mg/dL (0.2-1.3); Total Protein 5.1 g/dL (6.3-8.2)
[2021-08-22] MEDS ORDERED: DEXTROSE 50% SYRINGE 50 ML IVP STA (16:56)
[2021-08-22 17:00] LABS: Poikilocytosis (M) Present; Toxic Granulation Present
--- NOTE | 2021-08-22 17:16 | XR ---
EXAMINATION TYPE: XR chest 1V portable DATE OF EXAM: 08/22/2021 4:58 PM COMPARISON: Chest radiographs from 08/22/2021 at 248 TECHNIQUE: XR chest 1V portable Frontal view of the chest. CLINICAL INDICATION:Male, 81 years old with history of post intubation; FINDINGS: Lungs/Pleura: Multifocal airspace opacities. No evidence of pneumothorax. Moderate right pleural effu natividad. Pulmonary vascularity: Unremarkable. Heart/mediastinum: Cardiomediastinal silhouette is enlarged and stable. Single-lead cardiac conductio n device overlying the left hemithorax with lead projecting over the right ventricle. Musculoskeletal: No acute osseous pathology. Midline sternotomy wires are noted and stable. Other findings: None Lines/Tubes: Endotracheal tube with distal tip 5.6 cm above the bneoit Right lower lobe thoracotomy tube with tubing in stable position. IMPRESSION: 1. Similar multifocal airspace opacities. 2. Stable support lines and tubes. 3. Similar right pleural effusion.
[2021-08-22] MEDS: DEXTROSE 5% IN WATER 1,000 ML with SODIUM BICARB (1 MEQ/ML) 150 ML IV SCH (17:40)
[2021-08-22 17:56] LABS: ABG Base Excess 5.1 mmol/L; ABG HCO3 31 mmol/L (21-25); ABG Oxygen Saturation 89.5 % (94-97); ABG PCO2 59 mmHg (35-45); ABG PH 7.33 (7.35-7.45); ABG TCO2 33 mmol/L (19-24)
[2021-08-22 17:57] LABS: ABG PO2 59 mmHg (83-108)
[2021-08-22 17:57] LABS: Glucose,Whole Blood 168 mg/dL (75-99)
[2021-08-22] MEDS: MIDODRINE 5 MG TAB PO SCH (19:08)
[2021-08-22] MEDS ORDERED: HYDROmorphone 1 MG/ML 1 ML SYRINGE IVP PRN (19:58)
[2021-08-22 20:14] LABS: Glucose,Whole Blood 168 mg/dL (75-99)
[2021-08-22] MEDS: HYDROmorphone 1 MG/ML 1 ML SYRINGE IVP PRN ×2 (20:19→23:23)
[2021-08-22] MEDS: NOREPINEPHRINE 4 MG in SODIUM CHLORIDE 0.9% 250 ML IV SCH ×3 (20:48→23:34)
[2021-08-22 21:14] LABS: Glucose,Whole Blood 167 mg/dL (75-99)
[2021-08-22] MEDS: SODIUM CHLORIDE 0.9% 50 ML with VASOPRESSIN 20 UNIT IVPB SCH ×2 (22:12)
[2021-08-22] MEDS: PANTOPRAZOLE 40 MG/10 ML VIAL IVP SCH (23:32)
[2021-08-22] MEDS: CALCIUM ACETATE 667 MG TAB PO SCH (23:32)
[2021-08-22] MEDS: MELATONIN 3 MG TABLET PO SCH (23:32)
[2021-08-22] MEDS: ATORVASTATIN 40 MG TAB PO SCH (23:32)
[2021-08-22 23:57] LABS: ABG Base Excess 4.9 mmol/L; ABG HCO3 30 mmol/L (21-25); ABG Oxygen Saturation 94.1 % (94-97); ABG PCO2 48 mmHg (35-45); ABG PO2 67 mmHg (83-108); ABG TCO2 31 mmol/L (19-24); Allen Test Performed? Yes
[2021-08-23] MEDS: DEXTROSE 5% IN WATER 1,000 ML with SODIUM BICARB (1 MEQ/ML) 150 ML IV SCH ×2 (00:10→07:45)
[2021-08-23] MEDS: NOREPINEPHRINE 4 MG in SODIUM CHLORIDE 0.9% 250 ML IV SCH ×7 (01:06→07:45)
[2021-08-23] MEDS: HYDROmorphone 1 MG/ML 1 ML SYRINGE IVP PRN (01:52)
[2021-08-23 03:48] LABS: Glucose,Whole Blood 207 mg/dL (75-99)
[2021-08-23] MEDS: SODIUM CHLORIDE 0.9% 50 ML with VASOPRESSIN 20 UNIT IVPB SCH ×6 (04:00→18:08)
[2021-08-23 04:01] LABS: Anisocytosis Slight; HCT 31.1 % (39.0-53.0); HGB 8.8 gm/dL (13.0-17.5); Hypochromasia Marked; MCH 30.9 pg (25.0-35.0); MCHC 28.3 g/dL (31.0-37.0); MCV 109.5 fL (80.0-100.0); Macrocytosis Marked; Mean Platelet Volume 11.5; Platelet Count 115 k/uL (150-450); Poikilocytosis Moderate; RBC 2.84 m/uL (4.30-5.90); RDW 19.6 % (11.5-15.5); WBC 13.8 k/uL (3.8-10.6)
[2021-08-23 04:08] LABS: INR 4.2 (<1.2); Prothrombin Time 42.2 sec (9.0-12.0)
[2021-08-23 04:14] LABS: Calcium 6.5 mg/dL (8.4-10.2); Potassium 3.9 mmol/L (3.5-5.1)
[2021-08-23] MEDS: MIDODRINE 5 MG TAB PO SCH ×3 (06:10→18:05)
[2021-08-23 06:17] LABS: Glucose,Whole Blood 211 mg/dL (75-99)
[2021-08-23 06:18] LABS: ABG Base Excess 1.3 mmol/L; ABG HCO3 27 mmol/L (21-25); ABG Oxygen Saturation 94.7 % (94-97); ABG PCO2 48 mmHg (35-45); ABG PH 7.35 (7.35-7.45); ABG PO2 70 mmHg (83-108); ABG TCO2 28 mmol/L (19-24); Allen Test Performed? Yes
[2021-08-23] MEDS: INSULIN ASPART (NovoLOG) 100 UNIT/ML VIAL SQ SCH ×4 (06:43→23:26)
[2021-08-23] MEDS: SYMBICORT 160-4.5 MCG INHALER INHALATION SCH ×2 (07:10→19:07)
[2021-08-23] MEDS: IPRATROPIUM-ALBUTEROL 3 ML NEB INHALATION SCH ×5 (07:10→19:06)
[2021-08-23] MEDS ORDERED: CALCIUM GLUCONATE IN NACL 2 GM in SALINE 1 100ML.BAG IVPB ONE (07:15)
[2021-08-23] MEDS: TAMSULOSIN 0.4 MG CAP.ER.24H PO SCH (07:29)
[2021-08-23] MEDS: FERROUS SULFATE 325 MG TAB PO SCH (07:29)
--- NOTE | 2021-08-23 07:38 | XR ---
EXAMINATION TYPE: XR chest 1V portable DATE OF EXAM: 08/23/2021 COMPARISON: Chest x-ray 08/22/2021 HISTORY: Intubated TECHNIQUE: Single frontal view of the chest is obtained. FINDINGS: Endotracheal tube is overlying the tracheal air column. There are overlying leads, patient is post median sternotomy. Pacemaker is present in left pectoral region, lead is present within the right ventricle. Bilateral airspace disease is again seen, there is no evident pneumothorax. Right-si ded Pleurx catheter is noted. Cardiac mediastinal silhouette is stable. IMPRESSION: Correlate for congestive heart failure, pneumonia, there may be atelectasis, effusions, underlying mass
[2021-08-23] MEDS: BUMETANIDE 1 MG TAB PO SCH (08:00)
[2021-08-23] MEDS: ASPIRIN 81 MG PO SCH (08:00)
[2021-08-23] MEDS: ASCORBIC ACID 500 MG TAB PO SCH (08:00)
[2021-08-23] MEDS: CHLORHEXIDINE GLUCONATE 15 ML CUP MUCOUS MEM SCH ×2 (08:00→20:13)
[2021-08-23] MEDS: MAG HYDROX/AL HYDROX/SIMETH 30 ML, LIDOCAINE VISCOUS 2% 30 ML, NYSTATIN 100,000 UNIT/ML... PO SCH ×3 (08:00)
[2021-08-23] MEDS: PANTOPRAZOLE 40 MG/10 ML VIAL IVP SCH ×2 (08:00→20:13)
--- NOTE | 2021-08-23 08:13 | P.PN ---
Subjective Progress Note Date: 08/23/21 Principal diagnosis: Mitral valve regurgitation, tricuspid valve regurgitation, coronary artery disease. Previous medical history of CAD with previous cardial infarction and PCI, hypertension, chronic atrial fibrillation on Coumadin for anticoagulation status post cardioversion, sick sinus syndrome [facility] permanent pacemaker placement in 2017, chronic systolic heart failure, atrial septal defect status post closure, previous MitraClip in 2019, chronic renal insufficiency, previous tobacco dependence, severe restrictive lung disease, obstructive sleep apnea, recurrent right-sided pleural effusio with previous thoracentesis x 4, remote history of pneumonia, untreated prostate cancer which was diagnosed in May 2019, family history of premature coronary artery disease POD #26 mitral valve replacement with 31 mm Mosaic porcine valve prosthesis, tricuspid valve repair with 30 mm MC3 band, coronary artery bypass grafting 1 with reverse saphenous vein graft to the obtuse marginal artery, endovascular vein harvest of the left greater saphenous vein, epi-aortic ultrasound, closure of the left atrial appendage, closure of ASD Postoperative acute blood loss anemia and thrombocytopenia, expected given hemodilution and cardiopulmonary bypass pump Coagulopathy, unexpected Right-sided pleural effusion, expected given history of previous right-sided effusion with thoracentesis 4, status post right-sided pigtail catheter placement by interventional radiology, status post right sided pleurX catheter Leukocytosis, afebrile, sputum culture positive for Klebsiella pneumoniae Altered mental status after surgery due to delirium from lack of sleep, resolved Urinary retention, expected given his history of prostate cancer, requiring placement of Cortes catheter POD #3 EGD with PEG tube placement The patient was seen and examined this morning laying in bed mechanically ventilated in the intensive care unit. Yesterday morning the patient was doing well and was expected to be transferred to subacute rehab today, however in the afternoon he became hypoxic and hypotensive after ambulating, was placed back in bed and placed on BiPAP. Unfortunately his oxygenation and blood pressure did not improve, chest x-ray/ABGs/lab work were obtained. Patient was shown to be acidotic, subsequently he was reintubated, given sodium bicarb and IV fluids, pancultures were ordered. Over the course of the evening he was started on IV pressors. This morning he is on high-dose levo and vaso-, remains on 100% FiO2. Blood pressure very labile. Urine output adequate. Family was updated throughout the evening and early this morning changed CODE STATUS to DO NOT RE SUSCITATE. They are considering withdrawing care and making the patient comfort measures as they have expressed he would not want this, however they are willing to give him some more time with treatment to see if there is any chance of his turning around. Objective - Vital Signs Vital signs: Vital Signs Temp 97.5 F L 08/23/21 04:00 Pulse 78 08/23/21 07:00 Resp 20 08/23/21 07:00 BP 70/47 08/23/21 06:00 Pulse Ox 93 L 08/23/21 07:00 Intake & Output 08/22/21 08/23/21 08/23/21 18:59 06:59 18:59 Intake Total 2844.172 4950.317 Output Total 375 625 Balance 2469.172 4325.317 Weight 68.7 kg Intake: IV 2554 2789 Albumin Human 5% 250 ml @ 250 0 mls/hr IVPB [facility] Rx#:[id number] Dextrose 5% in Water 1, 300 750 000 ml @ 150 mls/hr IV . Q7H40M PHIL with Sodium Bicarb (1 Meq/ml) 150 ml Rx#:[id number] IVF Bolus 1997 1999 Pressure Bag 6 39 Intake, IV Titration 0.172 2161.317 Amount Norepinephrine 4 mg In 1987.292 Sodium Chloride 0.9% 250 ml @ 0.1 MCG/KG/MIN 26. 175 mls/hr IV .Q9H43M [facility] Rx#:[id number] propofoL 1,000 mg In 0.172 174.025 Empty Bag 1 bag @ 5 MCG/ KG/MIN 2.061 mls/hr IV . Q24H [facility] Rx#:[id number] Oral 240 Tube Feeding 0 Other 50 Output: Chest Tube Drainage 250 Right Posterior Chest 250 Urine 125 625 Other: Voiding Method Indwelling Catheter Indwelling Catheter # Voids 1 ABP, PAP, CO, CI - Last Documented Arterial Blood Pressure 109/48 Pulmonary Artery Pressure 35/28 Cardiac Output 5 Cardiac Index 2.7 - Exam CONSTITUTIONAL: Appears comfortable, lying in bed on mechanical ventilation, critically ill RESPIRATORY: Lungs sounds diminished/course bilaterally. Respirations even, nonlabored on mechanical ventilation. Current ventilator settings FiO2 100%, PEEP 8, tidal volume 450, respiratory rate 24. 8.0 ET tube present, 22 at the lip. Oxygen saturation 93-94%. CARDIOVASCULAR: S1, S2 present. Controlled atrial fibrillation on telemetry with heart rate in the 80s. Sternum stable. Palpable peripheral pulses bilaterally. No edema present. No calf pain or tenderness noted. Heart hugger, SUMI hose, SCDs in place. GASTROINTESTINAL: Abdomen soft, nontender, slightly distended. Hypoactive to no bowel sounds present 4 quadrants, abdomen very tympanic to percussion. Positive bowel movement 08/21/21 per nursing. PEG tube in place GENITOURINARY: Cortes catheter placed yesterday, urine output 50-70 mL/h overnight INTEGUMENTARY: Skin is warm and dry. Anterior chest incision well approximated. Left lower extremity EVH site well approximated without redness or drainage. Right pleurx cath site without redness, dressing present. PEG tube site without redness NEUROLOGIC: Sedated and mechanically ventilated PSYCHIATRIC: Sedated and mechanically ventilated - Allied health notes Allied health notes reviewed: nursing - Labs CBC & Chem 7: 08/23/21 03:45 08/23/21 03:45 Labs: Abnormal Lab Results - Last 24 Hours (Table) 08/22/21 08/22/21 08/22/21 Range/Units 07:29 07:29 07:29 WBC 17.9 H (3.8-10.6) k/uL RBC 2.86 L (4.30-5.90) m/uL Hgb 8.9 L (13.0-17.5) gm/dL Hct 30.7 L (39.0-53.0) % MCV 107.2 H (80.0-100.0) fL MCHC 29.1 L (31.0-37.0) g/dL RDW 20.2 H (11.5-15.5) % Plt Count 104 L (150-450) k/uL Neutrophils # 17.0 H (1.3-7.7) k/uL Lymphocytes # 0.3 L (1.0-4.8) k/uL Macrocytosis Marked A PT 26.5 H (9.0-12.0) sec INR 2.7 H (<1.2) APTT (22.0-30.0) sec ABG pH (7.35-7.45) ABG pCO2 (35-45) mmHg ABG pO2 (83-108) mmHg ABG HCO3 (21-25) mmol/L ABG Total CO2 (19-24) mmol/L ABG O2 Saturation (94-97) % Sodium 146 H (137-145) mmol/L Chloride 111 H (98-107) mmol/L BUN 101 H* (9-20) mg/dL Creatinine 2.06 H (0.66-1.25) mg/dL Glucose 142 H (74-99) mg/dL POC Glucose (mg/dL) (75-99) mg/dL Calcium (8.4-10.2) mg/dL Magnesium (1.6-2.3) mg/dL Total Protein 5.3 L (6.3-8.2) g/dL Albumin 2.5 L (3.5-5.0) g/dL Crossmatch 08/22/21 08/22/21 08/22/21 Range/Units 08:47 12:00 15:44 WBC (3.8-10.6) k/uL RBC (4.30-5.90) m/uL Hgb (13.0-17.5) gm/dL Hct (39.0-53.0) % MCV (80.0-100.0) fL MCHC (31.0-37.0) g/dL RDW (11.5-15.5) % Plt Count (150-450) k/uL Neutrophils # (1.3-7.7) k/uL Lymphocytes # (1.0-4.8) k/uL Macrocytosis PT (9.0-12.0) sec INR (<1.2) APTT (22.0-30.0) sec ABG pH 7.06 L* (7.35-7.45) ABG pCO2 30 L (35-45) mmHg ABG pO2 42 L* (83-108) mmHg ABG HCO3 8 L* (21-25) mmol/L ABG Total CO2 9 L (19-24) mmol/L ABG O2 Saturation 61.3 L (94-97) % Sodium (137-145) mmol/L Chloride (98-107) mmol/L BUN (9-20) mg/dL Creatinine (0.66-1.25) mg/dL Glucose (74-99) mg/dL POC Glucose (mg/dL) 150 H 152 H (75-99) mg/dL Calcium (8.4-10.2) mg/dL Magnesium (1.6-2.3) mg/dL Total Protein (6.3-8.2) g/dL Albumin (3.5-5.0) g/dL Crossmatch 08/22/21 08/22/21 08/22/21 Range/Units 16:09 16:09 16:09 WBC (3.8-10.6) k/uL RBC 3.13 L (4.30-5.90) m/uL Hgb 9.7 L (13.0-17.5) gm/dL Hct 34.4 L (39.0-53.0) % MCV 109.7 H (80.0-100.0) fL MCHC 28.1 L (31.0-37.0) g/dL RDW 19.8 H (11.5-15.5) % Plt Count 104 L (150-450) k/uL Neutrophils # (1.3-7.7) k/uL Lymphocytes # 0.2 L (1.0-4.8) k/uL Macrocytosis Marked A PT 27.9 H (9.0-12.0) sec INR 2.8 H (<1.2) APTT 37.0 H (22.0-30.0) sec ABG pH (7.35-7.45) ABG pCO2 (35-45) mmHg ABG pO2 (83-108) mmHg ABG HCO3 (21-25) mmol/L ABG Total CO2 (19-24) mmol/L ABG O2 Saturation (94-97) % Sodium 148 H (137-145) mmol/L Chloride 112 H (98-107) mmol/L BUN 113 H* (9-20) mg/dL Creatinine 2.48 H (0.66-1.25) mg/dL Glucose 59 L (74-99) mg/dL POC Glucose (mg/dL) (75-99) mg/dL Calcium 8.3 L (8.4-10.2) mg/dL Magnesium 2.9 H (1.6-2.3) mg/dL Total Protein 5.1 L (6.3-8.2) g/dL Albumin 2.4 L (3.5-5.0) g/dL Crossmatch 08/22/21 08/22/21 08/22/21 Range/Units 16:13 16:28 17:53 WBC (3.8-10.6) k/uL RBC (4.30-5.90) m/uL Hgb (13.0-17.5) gm/dL Hct (39.0-53.0) % MCV (80.0-100.0) fL MCHC (31.0-37.0) g/dL RDW (11.5-15.5) % Plt Count (150-450) k/uL Neutrophils # (1.3-7.7) k/uL Lymphocytes # (1.0-4.8) k/uL Macrocytosis PT (9.0-12.0) sec INR (<1.2) APTT (22.0-30.0) sec ABG pH 7.00 L* 7.33 L (7.35-7.45) ABG pCO2 17 L* 59 H (35-45) mmHg ABG pO2 80 L 59 L* (83-108) mmHg ABG HCO3 4 L* 31 H (21-25) mmol/L ABG Total CO2 5 L 33 H (19-24) mmol/L ABG O2 Saturation 90.0 L 89.5 L (94-97) % Sodium (137-145) mmol/L Chloride (98-107) mmol/L BUN (9-20) mg/dL Creatinine (0.66-1.25) mg/dL Glucose (74-99) mg/dL POC Glucose (mg/dL) (75-99) mg/dL Calcium (8.4-10.2) mg/dL Magnesium (1.6-2.3) mg/dL Total Protein (6.3-8.2) g/dL Albumin (3.5-5.0) g/dL Crossmatch See Detail 08/22/21 08/22/21 08/22/21 Range/Units 17:55 20:11 21:13 WBC (3.8-10.6) k/uL RBC (4.30-5.90) m/uL Hgb (13.0-17.5) gm/dL Hct (39.0-53.0) % MCV (80.0-100.0) fL MCHC (31.0-37.0) g/dL RDW (11.5-15.5) % Plt Count (150-450) k/uL Neutrophils # (1.3-7.7) k/uL Lymphocytes # (1.0-4.8) k/uL Macrocytosis PT (9.0-12.0) sec INR (<1.2) APTT (22.0-30.0) sec ABG pH (7.35-7.45) ABG pCO2 (35-45) mmHg ABG pO2 (83-108) mmHg ABG HCO3 (21-25) mmol/L ABG Total CO2 (19-24) mmol/L ABG O2 Saturation (94-97) % Sodium (137-145) mmol/L Chloride (98-107) mmol/L BUN (9-20) mg/dL Creatinine (0.66-1.25) mg/dL Glucose (74-99) mg/dL POC Glucose (mg/dL) 168 H 168 H 167 H (75-99) mg/dL Calcium (8.4-10.2) mg/dL Magnesium (1.6-2.3) mg/dL Total Protein (6.3-8.2) g/dL Albumin (3.5-5.0) g/dL Crossmatch 08/22/21 08/23/21 08/23/21 Range/Units 23:50 03:45 03:45 WBC 13.8 H (3.8-10.6) k/uL RBC 2.84 L (4.30-5.90) m/uL Hgb 8.8 L (13.0-17.5) gm/dL Hct 31.1 L (39.0-53.0) % MCV 109.5 H (80.0-100.0) fL MCHC 28.3 L (31.0-37.0) g/dL RDW 19.6 H (11.5-15.5) % Plt Count 115 L (150-450) k/uL Neutrophils # (1.3-7.7) k/uL Lymphocytes # (1.0-4.8) k/uL Macrocytosis Marked A PT 42.2 H (9.0-12.0) sec INR 4.2 H (<1.2) APTT (22.0-30.0) sec ABG pH (7.35-7.45) ABG pCO2 48 H (35-45) mmHg ABG pO2 67 L (83-108) mmHg ABG HCO3 30 H (21-25) mmol/L ABG Total CO2 31 H (19-24) mmol/L ABG O2 Saturation (94-97) % Sodium (137-145) mmol/L Chloride (98-107) mmol/L BUN (9-20) mg/dL Creatinine (0.66-1.25) mg/dL Glucose (74-99) mg/dL POC Glucose (mg/dL) (75-99) mg/dL Calcium (8.4-10.2) mg/dL Magnesium (1.6-2.3) mg/dL Total Protein (6.3-8.2) g/dL Albumin (3.5-5.0) g/dL Crossmatch 08/23/21 08/23/21 08/23/21 Range/Units 03:45 03:46 06:12 WBC (3.8-10.6) k/uL RBC (4.30-5.90) m/uL Hgb (13.0-17.5) gm/dL Hct (39.0-53.0) % MCV (80.0-100.0) fL MCHC (31.0-37.0) g/dL RDW (11.5-15.5) % Plt Count (150-450) k/uL Neutrophils # (1.3-7.7) k/uL Lymphocytes # (1.0-4.8) k/uL Macrocytosis PT (9.0-12.0) sec INR (<1.2) APTT (22.0-30.0) sec ABG pH (7.35-7.45) ABG pCO2 48 H (35-45) mmHg ABG pO2 70 L (83-108) mmHg ABG HCO3 27 H (21-25) mmol/L ABG Total CO2 28 H (19-24) mmol/L ABG O2 Saturation (94-97) % Sodium 146 H (137-145) mmol/L Chloride 112 H (98-107) mmol/L BUN 95 H (9-20) mg/dL Creatinine 1.96 H (0.66-1.25) mg/dL Glucose 196 H (74-99) mg/dL POC Glucose (mg/dL) 207 H (75-99) mg/dL Calcium 6.5 L (8.4-10.2) mg/dL Magnesium (1.6-2.3) mg/dL Total Protein (6.3-8.2) g/dL Albumin (3.5-5.0) g/dL Crossmatch 08/23/21 Range/Units 06:16 WBC (3.8-10.6) k/uL RBC (4.30-5.90) m/uL Hgb (13.0-17.5) gm/dL Hct (39.0-53.0) % MCV (80.0-100.0) fL MCHC (31.0-37.0) g/dL RDW (11.5-15.5) % Plt Count (150-450) k/uL Neutrophils # (1.3-7.7) k/uL Lymphocytes # (1.0-4.8) k/uL Macrocytosis PT (9.0-12.0) sec INR (<1.2) APTT (22.0-30.0) sec ABG pH (7.35-7.45) ABG pCO2 (35-45) mmHg ABG pO2 (83-108) mmHg ABG HCO3 (21-25) mmol/L ABG Total CO2 (19-24) mmol/L ABG O2 Saturation (94-97) % Sodium (137-145) mmol/L Chloride (98-107) mmol/L BUN (9-20) mg/dL Creatinine (0.66-1.25) mg/dL Glucose (74-99) mg/dL POC Glucose (mg/dL) 211 H (75-99) mg/dL Calcium (8.4-10.2) mg/dL Magnesium (1.6-2.3) mg/dL Total Protein (6.3-8.2) g/dL Albumin (3.5-5.0) g/dL Crossmatch Microbiology - Last 24 Hours (Table) 08/22/21 16:50 Urine Culture - Preliminary Urine,Catheterized - Imaging and Cardiology Chest x-ray: report reviewed, image reviewed Assessment and Plan Assessment: 1. Mitral valve regurgitation, previous MitraClip in 2019, status post post mitral valve replacement 2. Tricuspid valve regurgitation, status post tricuspid valve repair 3. Coronary artery disease with previous myocardial infarction and PCI, status post 1 vessel CABG 4. History of hypertension, currently hypotensive maxed on pressors 5. Chronic atrial fibrillation on Coumadin for anticoagulation status post cardioversion, status post closure of the left atrial appendage 6. Sick sinus syndrome status post [facility] permanent pacemaker placement in 2017 7. Chronic systolic heart failure 8. Atrial septal defect status post closure 9. Acute on chronic renal insufficiency stage IIIB, baseline creatinine 1.6-1.7 10. Previous tobacco dependence 11. Severe restrictive lung disease, preoperative FEV1 47% of predicted 12. Recurrent right-sided pleural effusion, patient had right sided thoracentesis twice in 2019 and twice in 2020, status post right-sided pigtail catheter placement by IR, status post right sided pleurX catheter placement 13. Obstructive sleep apnea 14. Remote history of pneumonia 15. History of prostate cancer, untreated 16. Family history of premature coronary artery disease 17. Postoperative acute blood loss anemia and thrombocytopenia, expected 18. Coagulopathy, unexpected 19. Leukocytosis, elevated pro-calcitonin, afebrile, sputum culture positive for Klebsiella pneumoniae 20. Altered mental status after surgery due to delirium from lack of sleep, resolved 21. Urinary retention requiring placement of Cortes catheter 22. Malnutrition and general debility, status post PEG tube placement for supplemental feeding 23. Acute hypoxic respiratory failure, unexpected, reintubated Plan: 1. Continue low-dose aspirin, statin. Continue Levo and vaso-for hypotension 2. Coumadin discontinued 3. Ventilator management per pulmonology 4. Will monitor daily labs and x-rays. Electrolyte replacement per protocol. 5. GI/DVT prophylaxis 6. Insulin management per primary care service. Patient is not diabetic, preoperative hemoglobin A1c 5.8% 7. Pain control per current medication regimen. 8. Strict accurate intake and output. Daily weights 9. Family updated continuously. Patient is no code and we will not escalate care, however will hold off on withdrawing care for at least 24 hours 10. Patient remains critically ill, prognosis guarded
[2021-08-23] MEDS ORDERED: CISATRACURIUM 2 MG/ML 5 ML VIAL IV ONE (08:23)
--- NOTE | 2021-08-23 08:55 | XR ---
EXAMINATION TYPE: XR chest 1V portable DATE OF EXAM: 08/23/2021 COMPARISON: Chest x-ray 08/23/2021 HISTORY: Status post left internal jugular vein central venous catheter placement TECHNIQUE: Single frontal view of the chest is obtained. FINDINGS: There is been interval placement of a left jugular central venous catheter, catheter cours es to the level of the cavoatrial junction, distal tip not well seen. No evident pneumothorax or othe r interval change. IMPRESSION: No evident complication status post central venous catheter placement.
--- NOTE | 2021-08-23 09:31 | P.PN ---
Subjective Progress Note Date: 08/23/21 The patient is seen today 08/12/2021 in follow-up in the intensive care unit. He is postoperative day #15 above mitral valve replacement, tricuspid valve repair and coronary artery bypass grafting times one. He had had issues with recurrent right-sided pleural effusion and is status post right-sided pigtail catheter in place. Proximal main 400 ML's of serosanguineous fluid drained overnight. Left-sided chest tube remains in place with an another 200 ML's of serosanguineous fluid drained. He is requiring 6 L of high flow nasal cannula to maintain O2 saturations in the 90s. Chest x-ray shows improvement in the pleural effusions. There is still bilateral opacities and some interstitial changes consistent with congestive heart failure. Moderate cardiomegaly. He is alert and oriented today. He still has complaints of a sore mouth. His appetite has been poor. Current cardiac rhythm is paced. Urine cultures revealed no growth. Blood cultures reveal no growth. Sputum culture from 10/2021 was positive for Klebsiella pneumoniae. White count 13.2. Hemoglobin 8.5. Platelets 261. Sodium 133. Potassium 4.8. Bicarb 21. BUN 119. Creatinine 2.80. Glucose 138. He is status post 2 units of packed red blood cells, 4 units of fresh frozen plasma and 2 units of platelets this admission. He is continued on nystatin swish and swallow, bronchodilators, heparin for DVT prophylaxis. Remains on Bumex. Currently in a -125 ML balance. Patient is seen today 08/13/2021 in follow-up in the intensive care unit. He is postoperative day #16. He is currently resting fairly comfortably in bed. He is requiring 10 L high flow nasal cannula to maintain O2 saturations in the low 90s. His bilateral chest tubes have been removed. This morning chest x-ray revealed loculated right costophrenic angle pneumothorax. Minimal right apical pneumothorax. Evidence of cardiomegaly with prominent pulmonary vascular congestion. Previous sputum had been positive for Klebsiella pneumoniae. White count 13.8. Hemoglobin 8.7. Platelets 242. INR 2.0. Sodium 134. Potassium 5.2. BUN 126. Creatinine 2.4. He is continued on DuoNeb inhalations, IV Bumex, antibiotics in the form of cefepime. He'll also be trialed on BiPAP 04/07 and titrate the FiO2. He is continued on Protonix for GI prophylaxis. His appetite has improved on a pured diet. He seems to tolerate that better. Less mouth discomfort. The patient is seen today 08/19/2021 in follow-up in intensive care unit. He is currently sitting up in a chair at the bedside. Awake and alert in no acute distress. Skin of the brain revealed chronic ischemic changes and scattered chronic infarcts. 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 No intracranial hemorrhage or gross acute cortical infarct. He is still maint aining O2 saturations in the 90s on 3 L/m per nasal cannula. He is pulling approximately 1000 ML's on his incentive spirometer. Chest x-ray continues to show diffuse increased lung markings in the right mid and lower lung field. Small right pleural effusion is present. Mild left basilar infiltrate. Pleurx catheter drained by CT services for 250 mL today. He is status post 2 units of packed red blood cells, 4 units of fresh frozen plasma, 2 units of platelets this admission. Sputum culture had been previously positive for Klebsiella pneumonia. White count 10.6. Hemoglobin 8.9. Platelets 134. INR 2.2. Sodium 148. Potassium 3.9. Chloride 114. Bicarb 26. BUN 119. Creatinine 2.41. Glucose 133. He continues to have poor oral intake. He continues to eat less than 50% of his meals. The plan is for possible PEG tube placement. He is continued on DuoNeb inhalations, Symbicort inhalations. Initiated back on his Zoloft. The patient is seen today 08/20/2021 in follow-up in the intensive care unit. He is awake and alert in no acute distress. He is maintaining O2 saturations in the 90s on 6 L high flow nasal cannula. Chest x-ray continues to show persistent pulmonary vascular congestion with right-sided pleural effusion and pleural parenchymal density with cardiomegaly. Hilar mediastinal structures are within normal limits. He is currently sitting up in the recliner at the bedside. He did utilize BiPAP last night 04/07 and 50% FiO2. He has D5W running at 75 ML's per hour. PEG tube was not placed yesterday due to elevated INR. INR today is 1.9. Blood glucose 161. The rest of the labs are pending. He is continued on DuoNeb inhalations, Symbicort. Encouraged to continue to work well with the incentive spirometer. He has been seen by psychiatric services for questionable depression. He is continued on Zoloft. Remeron was added at bedtime. He is also on Megace to try to improve his appetite. Heparin for DVT prophylaxis. The patient is seen today 08/22/2019 in follow-up in the intensive care unit. He is currently sitting up in a chair at the bedside. Awake and alert in no acute distress. He is down to 2 L nasal cannula maintaining O2 saturations in the 90s. He is utilizing BiPAP at night 04/07 and 50% FiO2. He has D5W at 75 ML's per hour. He did have a PEG tube placed yesterday. He is continued on Symbicort and DuoNeb inhalations. Anticoagulated with warfarin. White count 9.7. Hemoglobin 9.3. We will count 102,000. INR 2.2. Sodium 136. Potassium 4.0. The 183. Creatinine 1.88. AST 33. ALT 18. Albumin 2.6. Chest x-ray continues to show pleural effusion and associated atelectasis. CT services removed 200 mL of thin serosanguineous drainage from his right Pleurx catheter today. The patient is seen today 08/22/2021 in follow-up in the intensive care unit. He is awake and alert in no acute distress. Sitting up at the bedside. Currently on 5 L high flow nasal cannula with O2 saturation at 94%. He is afebrile. Hemodynamically stable. 6 continues to show right lower lobe infiltrate with small pleural effusion. Pleurx catheter remains in place. Sputum culture had been positive for Klebsiella pneumoniae. . Completed a course of antibiotics. He remains on Symbicort, DuoNeb inhalations, continues to work with the incentive spirometer. Antegrade related with warfarin and INR 2.7. He white count 17.9. Hemoglobin 8.9. Platelets 104. Sodium 146. Potassium 4.3. BUN 101. Creatinine 2.06. Glucose 142. The patient is seen today 08/23/2021 in follow-up in the intensive care unit. Yesterday his condition started to deteriorate. He became quite hypotensive. He went on to require pressor support and he ended up requiring been placed back on the mechanical ventilator around 1630. He is seen today in the ICU. Current vent settings are's control mode at a rate of 24, tidal volume 450, FiO2 100% and a PEEP of 8. Morning blood gases revealed a PaO2 of 70, pCO2 40, pH 7.35. Tube feedings are placed on hold. He was initiated on a bicarb drip D5W with 3 A of sodium bicarb at 50 MLS per hour. He is sedated with propofol at 45 mcg/kg/m. He is on norepinephrine at 61 mcg/m. Vasopressin at 0.04 units per minute. Chest x-ray continues to revealed bilateral airspace disease. No evidence of pneumothorax. Right-sided Pleurx catheter remains in place. He has received 2 units of packed red blood cells, 4 units of fresh frozen plasma and 2 units of platelets so far this admission. White count 13.8. Hemoglobin 8.8. Platelets 115,000. INR 4.2. Sodium 146. Potassium 3.9. Chloride 112. Bicarb 29. BUN 95. Creatinine 1.96. Glucose 196. He's been afebrile. Paced rhythm. Currently in a +6.7 L balance. Objective - Vital Signs Vital signs: Vital Signs Temp 97.5 F L 08/23/21 04:00 Pulse 78 08/23/21 07:00 Resp 20 08/23/21 07:00 BP 70/47 08/23/21 06:00 Pulse Ox 93 L 08/23/21 07:00 Intake & Output 08/22/21 08/23/21 08/23/21 18:59 06:59 18:59 Intake Total 2844.172 4950.317 208.089 Output Total 375 625 Balance 2469.172 4325.317 208.089 Weight 68.7 kg Intake: IV 2554 2789 Albumin Human 5% 250 ml @ 250 0 mls/hr IVPB .[facility] Rx#:[id number] Dextrose 5% in Water 1, 300 750 000 ml @ 150 mls/hr IV . Q7H40M PHIL with Sodium Bicarb (1 Meq/ml) 150 ml Rx#:[id number] IVF Bolus 1997 1999 Pressure Bag 6 39 Intake, IV Titration 0.172 2161.317 208.089 Amount Norepinephrine 4 mg In 1986.292 208.089 Sodium Chloride 0.9% 250 ml @ 0.1 MCG/KG/MIN 26. 175 mls/hr IV .Q9H43M PHIL Rx#:[id number] propofoL 1,000 mg In 0.172 174.025 Empty Bag 1 bag @ 5 MCG/ KG/MIN 2.061 mls/hr IV . Q24H PIHL Rx#:[id number] Oral 240 Tube Feeding 0 Other 50 Output: Chest Tube Drainage 250 Right Posterior Chest 250 Urine 125 625 Other: Voiding Method Indwelling Catheter Indwelling Catheter # Voids 1 ABP, PAP, CO, CI - Last Documented Arterial Blood Pressure 109/48 Pulmonary Artery Pressure 35/28 Cardiac Output 5 Cardiac Index 2.7 - Exam GENERAL EXAM: Intubated, sedated frail 81-year-old male patient. HEAD: Normocephalic. EYES: Sluggish reaction of pupils, equal size. NOSE: Clear with pink turbinates. THROAT: No erythema or exudates. NECK: No masses, no JVD. New left IJ triple-lumen catheter placed CHEST: No chest wall deformity. Sternal incision clean dry well approximated LUNGS: Equal air entry with bilateral scattered rhonchi. CVS: S1 and S2 normal with no audible murmur, paced irregular rhythm. ABDOMEN: Distended, tympanic abdomen. Hypoactive. SPINE: No scoliosis or deformity SKIN: No rashes CENTRAL NERVOUS SYSTEM: No focal deficits, tone is normal in all 4 extremities. EXTREMITIES: There is no peripheral edema. No clubbing, no cyanosis. Peripheral pulses are intact. - Labs CBC & Chem 7: 08/23/21 03:45 08/23/21 03:45 Labs: Abnormal Lab Results - Last 24 Hours (Table) 08/22/21 08/22/21 08/22/21 Range/Units 12:00 15:44 16:09 WBC (3.8-10.6) k/uL RBC 3.13 L (4.30-5.90) m/uL Hgb 9.7 L (13.0-17.5) gm/dL Hct 34.4 L (39.0-53.0) % MCV 109.7 H (80.0-100.0) fL MCHC 28.1 L (31.0-37.0) g/dL RDW 19.8 H (11.5-15.5) % Plt Count 104 L (150-450) k/uL Lymphocytes # 0.2 L (1.0-4.8) k/uL Macrocytosis Marked A PT (9.0-12.0) sec INR (<1.2) APTT (22.0-30.0) sec ABG pH 7.06 L* (7.35-7.45) ABG pCO2 30 L (35-45) mmHg ABG pO2 42 L* (83-108) mmHg ABG HCO3 8 L* (21-25) mmol/L ABG Total CO2 9 L (19-24) mmol/L ABG O2 Saturation 61.3 L (94-97) % Sodium (137-145) mmol/L Chloride (98-107) mmol/L BUN (9-20) mg/dL Creatinine (0.66-1.25) mg/dL Glucose (74-99) mg/dL POC Glucose (mg/dL) 152 H (75-99) mg/dL Calcium (8.4-10.2) mg/dL Magnesium (1.6-2.3) mg/dL Total Protein (6.3-8.2) g/dL Albumin (3.5-5.0) g/dL Crossmatch 08/22/21 08/22/21 08/22/21 Range/Units 16:09 16:09 16:13 WBC (3.8-10.6) k/uL RBC (4.30-5.90) m/uL Hgb (13.0-17.5) gm/dL Hct (39.0-53.0) % MCV (80.0-100.0) fL MCHC (31.0-37.0) g/dL RDW (11.5-15.5) % Plt Count (150-450) k/uL Lymphocytes # (1.0-4.8) k/uL Macrocytosis PT 27.9 H (9.0-12.0) sec INR 2.8 H (<1.2) APTT 37.0 H (22.0-30.0) sec ABG pH 7.00 L* (7.35-7.45) ABG pCO2 17 L* (35-45) mmHg ABG pO2 80 L (83-108) mmHg ABG HCO3 4 L* (21-25) mmol/L ABG Total CO2 5 L (19-24) mmol/L ABG O2 Saturation 90.0 L (94-97) % Sodium 148 H (137-145) mmol/L Chloride 112 H (98-107) mmol/L BUN 113 H* (9-20) mg/dL Creatinine 2.48 H (0.66-1.25) mg/dL Glucose 59 L (74-99) mg/dL POC Glucose (mg/dL) (75-99) mg/dL Calcium 8.3 L (8.4-10.2) mg/dL Magnesium 2.9 H (1.6-2.3) mg/dL Total Protein 5.1 L (6.3-8.2) g/dL Albumin 2.4 L (3.5-5.0) g/dL Crossmatch 08/22/21 08/22/21 08/22/21 Range/Units 16:28 17:53 17:55 WBC (3.8-10.6) k/uL RBC (4.30-5.90) m/uL Hgb (13.0-17.5) gm/dL Hct (39.0-53.0) % MCV (80.0-100.0) fL MCHC (31.0-37.0) g/dL RDW (11.5-15.5) % Plt Count (150-450) k/uL Lymphocytes # (1.0-4.8) k/uL Macrocytosis PT (9.0-12.0) sec INR (<1.2) APTT (22.0-30.0) sec ABG pH 7.33 L (7.35-7.45) ABG pCO2 59 H (35-45) mmHg ABG pO2 59 L* (83-108) mmHg ABG HCO3 31 H (21-25) mmol/L ABG Total CO2 33 H (19-24) mmol/L ABG O2 Saturation 89.5 L (94-97) % Sodium (137-145) mmol/L Chloride (98-107) mmol/L BUN (9-20) mg/dL Creatinine (0.66-1.25) mg/dL Glucose (74-99) mg/dL POC Glucose (mg/dL) 168 H (75-99) mg/dL Calcium (8.4-10.2) mg/dL Magnesium (1.6-2.3) mg/dL Total Protein (6.3-8.2) g/dL Albumin (3.5-5.0) g/dL Crossmatch See Detail 08/22/21 08/22/21 08/22/21 Range/Units 20:11 21:13 23:50 WBC (3.8-10.6) k/uL RBC (4.30-5.90) m/uL Hgb (13.0-17.5) gm/dL Hct (39.0-53.0) % MCV (80.0-100.0) fL MCHC (31.0-37.0) g/dL RDW (11.5-15.5) % Plt Count (150-450) k/uL Lymphocytes # (1.0-4.8) k/uL Macrocytosis PT (9.0-12.0) sec INR (<1.2) APTT (22.0-30.0) sec ABG pH (7.35-7.45) ABG pCO2 48 H (35-45) mmHg ABG pO2 67 L (83-108) mmHg ABG HCO3 30 H (21-25) mmol/L ABG Total CO2 31 H (19-24) mmol/L ABG O2 Saturation (94-97) % Sodium (137-145) mmol/L Chloride (98-107) mmol/L BUN (9-20) mg/dL Creatinine (0.66-1.25) mg/dL Glucose (74-99) mg/dL POC Glucose (mg/dL) 168 H 167 H (75-99) mg/dL Calcium (8.4-10.2) mg/dL Magnesium (1.6-2.3) mg/dL Total Protein (6.3-8.2) g/dL Albumin (3.5-5.0) g/dL Crossmatch 08/23/21 08/23/21 08/23/21 Range/Units 03:45 03:45 03:45 WBC 13.8 H (3.8-10.6) k/uL RBC 2.84 L (4.30-5.90) m/uL Hgb 8.8 L (13.0-17.5) gm/dL Hct 31.1 L (39.0-53.0) % MCV 109.5 H (80.0-100.0) fL MCHC 28.3 L (31.0-37.0) g/dL RDW 19.6 H (11.5-15.5) % Plt Count 115 L (150-450) k/uL Lymphocytes # (1.0-4.8) k/uL Macrocytosis Marked A PT 42.2 H (9.0-12.0) sec INR 4.2 H (<1.2) APTT (22.0-30.0) sec ABG pH (7.35-7.45) ABG pCO2 (35-45) mmHg ABG pO2 (83-108) mmHg ABG HCO3 (21-25) mmol/L ABG Total CO2 (19-24) mmol/L ABG O2 Saturation (94-97) % Sodium 146 H (137-145) mmol/L Chloride 112 H (98-107) mmol/L BUN 95 H (9-20) mg/dL Creatinine 1.96 H (0.66-1.25) mg/dL Glucose 196 H (74-99) mg/dL POC Glucose (mg/dL) (75-99) mg/dL Calcium 6.5 L (8.4-10.2) mg/dL Magnesium (1.6-2.3) mg/dL Total Protein (6.3-8.2) g/dL Albumin (3.5-5.0) g/dL Crossmatch 08/23/21 08/23/21 08/23/21 Range/Units 03:46 06:12 06:16 WBC (3.8-10.6) k/uL RBC (4.30-5.90) m/uL Hgb (13.0-17.5) gm/dL Hct (39.0-53.0) % MCV (80.0-100.0) fL MCHC (31.0-37.0) g/dL RDW (11.5-15.5) % Plt Count (150-450) k/uL Lymphocytes # (1.0-4.8) k/uL Macrocytosis PT (9.0-12.0) sec INR (<1.2) APTT (22.0-30.0) sec ABG pH (7.35-7.45) ABG pCO2 48 H (35-45) mmHg ABG pO2 70 L (83-108) mmHg ABG HCO3 27 H (21-25) mmol/L ABG Total CO2 28 H (19-24) mmol/L ABG O2 Saturation (94-97) % Sodium (137-145) mmol/L Chloride (98-107) mmol/L BUN (9-20) mg/dL Creatinine (0.66-1.25) mg/dL Glucose (74-99) mg/dL POC Glucose (mg/dL) 207 H 211 H (75-99) mg/dL Calcium (8.4-10.2) mg/dL Magnesium (1.6-2.3) mg/dL Total Protein (6.3-8.2) g/dL Albumin (3.5-5.0) g/dL Crossmatch Microbiology - Last 24 Hours (Table) 08/22/21 16:50 Urine Culture - Preliminary Urine,Catheterized Assessment and Plan Assessment: 1 Mitral valve regurgitation, status post mitral valve replacement, tricuspid valve regurgitation, status post tricuspid valve repair, coronary artery disease, status post 1 vessel CABG. on 08/22/2021 the patient developed s ignificant hypotension and subsequently re-required intubation mechanical ventilatory support. He is on 61 g of norepinephrine and 0.04 units of vasopressin. Requiring 100% FiO2 and a PEEP of 8 currently. 2 Continued right-sided pleural effusion, Pleurx catheter placed 3 Poor oral intake, PEG tube placed on 08/20/2021 4 Benign essential hypertension 5 Chronic atrial fibrillation 6 History of sick sinus syndrome and previous pacemaker placement in 2017 7 Chronic systolic congestive heart failure 8 Atrial septal defect post closure 9 Acute on chronic renal failure, baseline creatinine 1.6-1.7. Creatinine 1.96 10 Obstructive sleep apnea syndrome 11 Chronic and recurrent right-sided pleural effusion requiring multiple thoracentesis procedures and now he continues to have a Pleurx catheter in place. 12 Postoperative acute blood loss anemia and thrombocytopenia, expected 13 Positive sputum for Klebsiella pneumonia, suspect Klebsiella pneumonia tracheobronchitis, completed cefepime Plan: The patient was seen and evaluated Chest x-ray, ABGs and labs reviewed Discontinue bicarbonate drip Add 0.45 normal saline at 75 ML's per hour Continue pressors Continue the current vent settings DuoNeb inhalations every 4 hours Left IJ triple-lumen catheter placed Arterial line in place Overall condition is critical Family is at the bedside and aware of the current situation We will continue to follow I have personally seen and examined the patient, performed the documentation and the assessment and plan as written. Number of minutes spent on the visit: 15.
--- NOTE | 2021-08-23 10:00 | PCN ---
PROCEDURE NOTE PROCEDURE: Left internal jugular triple-lumen catheter placement. Indication: Hemodynamic monitoring/Intravenous access. Preop diagnosis is administration of fluids and pressors. Postoperative diagnosis is administration of fluids and pressors. A time-out was completed verifying correct patient, procedure, site, positioning, and implant(s) or special equipment if applicable. The patient was placed in a dependent position appropriate for triple-lumen catheter placement based on the vein to be cannulated. The patient's left neck was prepped and draped in sterile fashion. 1% Lidocaine was used to anesthetize the surrounding skin area. A triple-lumen 9F Cordis catheter was introduced into the left internal jugular vein using Seldinger technique from the posterior approach. The catheter was threaded smoothly over the guide wire and appropriate blood return was obtained. There was good blood return from all three ports. Each lumen of the catheter was evacuated of air and flushed with sterile saline. The catheter was then sutured in place to the skin and a sterile dressing applied by the nurse. Perfusion to the extremity distal to the point of catheter insertion was checked and found to be adequate. There was no immediate complication. A chest x-ray was ordered to check placement. There was no immediate complication. The patient tolerated the procedure very well. MMODL / IJN: [id number] / MTDD
[2021-08-23] MEDS: NOREPINEPHRINE 32 MG in SODIUM CHLORIDE 0.9% 218 ML IV SCH ×2 (10:11→18:08)
[2021-08-23] MEDS: SODIUM CHLORIDE 0.45% 1,000 ML IV SCH ×2 (10:11→21:45)
[2021-08-23] MEDS: FOLIC ACID 1 MG TAB PO SCH (11:24)
[2021-08-23] MEDS: THIAMINE 100 MG TAB PO SCH (11:25)
[2021-08-23] MEDS: MULTIVITAMINS, THERA 1 EACH TAB PO SCH (11:25)
[2021-08-23] MEDS ORDERED: MD COMMUNICATION TO PHARMACY 1 EACH MISC PO PRN (11:51)
[2021-08-23] MEDS ORDERED: VANCOMYCIN IV PER PHARMACY 1 EACH MISC MISCELLANE PRN (11:51)
[2021-08-23 12:04] LABS: Glucose,Whole Blood 147 mg/dL (75-99)
[2021-08-23] MEDS ORDERED: CEFEPIME 2 GM in SODIUM CHLORIDE 0.9% 100 ML IVPB ONE (12:15)
[2021-08-23] MEDS: IOPAMIDOL CONTRAST (ORAL USE) VIAL PO PRN ×2 (12:24→13:26)
[2021-08-23] MEDS ORDERED: VANCOMYCIN 1,250 MG in SODIUM CHLORIDE 0.9% 250 ML IVPB ONE (12:30)
--- NOTE | 2021-08-23 13:15 | P.PN ---
Subjective Progress Note Date: 08/23/21 This is a 81-year-old male who is post CABG and valve repair on 07/28/2021. He was seen because of acute kidney injury and chronic kidney disease. Yesterday he was complaining of shortness of breath and subsequently was intubated and currently is on 100% FiO2 on large doses of levo fed and vasopressin is making some urine. Blood pressure is. In the 90s to 110 range, heart rate 80s to 90s. Afebrile temp is 97.7. Workup for sepsis lactic acid was 2 white count is slightly up to 13,800. Hemoglobin stayed stable at 8.8 platelet count 115,000 the cause of this deterioration is not clear. A repeat chest x-ray shows slight worsening in the right lower lobe pneumonia as well as congestive heart failure with increased upper lobe vessels. Objective - Vital Signs Vital signs: Vital Signs Temp 97.7 F 08/23/21 12:00 Pulse 80 08/23/21 13:00 Resp 24 08/23/21 13:00 BP 70/47 08/23/21 06:00 Pulse Ox 91 L 08/23/21 13:00 Intake & Output 08/22/21 08/23/21 08/23/21 18:59 06:59 18:59 Intake Total 2844.172 4950.317 1436.612 Output Total 375 625 400 Balance 2469.172 4325.317 1036.612 Weight 68.7 kg 68.7 kg Intake: IV 2554 2789 1068 Albumin Human 5% 250 ml @ 250 0 mls/hr IVPB .[facility] Rx#:[id number] Dextrose 5% in Water 1, 300 750 150 000 ml @ 150 mls/hr IV . Q7H40M PHIL with Sodium Bicarb (1 Meq/ml) 150 ml Rx#:[id number] IVF Bolus 1997 1999 Pressure Bag 6 39 18 Sodium Chloride 0.45% 1, 900 000 ml @ 75 mls/hr IV . [id number] PHIL Rx#:[id number] Intake, IV Titration 0.172 2161.317 368.612 Amount Norepinephrine 32 mg In 14.975 Sodium Chloride 0.9% 218 ml @ 0.9 MCG/KG/MIN 28. 983 mls/hr IV .Q8H38M PHIL Rx#:[id number] Norepinephrine 4 mg In 1987.292 208.089 Sodium Chloride 0.9% 250 ml @ 0.1 MCG/KG/MIN 26. 175 mls/hr IV .Q9H43M PHIL Rx#:[id number] propofoL 1,000 mg In 0.172 174.025 145.548 Empty Bag 1 bag @ 5 MCG/ KG/MIN 2.061 mls/hr IV . Q24H PHIL Rx#:[id number] Oral 240 Tube Feeding 0 Other 50 Output: Chest Tube Drainage 250 Right Posterior Chest 250 Urine 125 625 400 Other: Voiding Method Indwelling Catheter Indwelling Catheter Indwelling Catheter # Voids 1 ABP, PAP, CO, CI - Last Documented Arterial Blood Pressure 95/38 Pulmonary Artery Pressure 35/28 Cardiac Output 5 Cardiac Index 2.7 On examination he is on the vent 100% FiO2 on levo fed and vasopressin lordosis JVP difficult to see Lungs and for diminished breath sounds on the ventilator Heart sounds unremarkable. No murmurs were heard Abdomen is soft nondistended Extremity exam reveals minimal edema Neurologically - Labs CBC & Chem 7: 08/23/21 03:45 08/23/21 03:45 Labs: Abnormal Lab Results - Last 24 Hours (Table) 08/22/21 08/22/21 08/22/21 Range/Units 15:44 16:09 16:09 WBC (3.8-10.6) k/uL RBC 3.13 L (4.30-5.90) m/uL Hgb 9.7 L (13.0-17.5) gm/dL Hct 34.4 L (39.0-53.0) % MCV 109.7 H (80.0-100.0) fL MCHC 28.1 L (31.0-37.0) g/dL RDW 19.8 H (11.5-15.5) % Plt Count 104 L (150-450) k/uL Lymphocytes # 0.2 L (1.0-4.8) k/uL Macrocytosis Marked A PT 27.9 H (9.0-12.0) sec INR 2.8 H (<1.2) APTT 37.0 H (22.0-30.0) sec ABG pH 7.06 L* (7.35-7.45) ABG pCO2 30 L (35-45) mmHg ABG pO2 42 L* (83-108) mmHg ABG HCO3 8 L* (21-25) mmol/L ABG Total CO2 9 L (19-24) mmol/L ABG O2 Saturation 61.3 L (94-97) % Sodium (137-145) mmol/L Chloride (98-107) mmol/L BUN (9-20) mg/dL Creatinine (0.66-1.25) mg/dL Glucose (74-99) mg/dL POC Glucose (mg/dL) (75-99) mg/dL Calcium (8.4-10.2) mg/dL Magnesium (1.6-2.3) mg/dL Total Protein (6.3-8.2) g/dL Albumin (3.5-5.0) g/dL Crossmatch 08/22/21 08/22/21 08/22/21 Range/Units 16:09 16:13 16:28 WBC (3.8-10.6) k/uL RBC (4.30-5.90) m/uL Hgb (13.0-17.5) gm/dL Hct (39.0-53.0) % MCV (80.0-100.0) fL MCHC (31.0-37.0) g/dL RDW (11.5-15.5) % Plt Count (150-450) k/uL Lymphocytes # (1.0-4.8) k/uL Macrocytosis PT (9.0-12.0) sec INR (<1.2) APTT (22.0-30.0) sec ABG pH 7.00 L* (7.35-7.45) ABG pCO2 17 L* (35-45) mmHg ABG pO2 80 L (83-108) mmHg ABG HCO3 4 L* (21-25) mmol/L ABG Total CO2 5 L (19-24) mmol/L ABG O2 Saturation 90.0 L (94-97) % Sodium 148 H (137-145) mmol/L Chloride 112 H (98-107) mmol/L BUN 113 H* (9-20) mg/dL Creatinine 2.48 H (0.66-1.25) mg/dL Glucose 59 L (74-99) mg/dL POC Glucose (mg/dL) (75-99) mg/dL Calcium 8.3 L (8.4-10.2) mg/dL Magnesium 2.9 H (1.6-2.3) mg/dL Total Protein 5.1 L (6.3-8.2) g/dL Albumin 2.4 L (3.5-5.0) g/dL Crossmatch See Detail 08/22/21 08/22/21 08/22/21 Range/Units 17:53 17:55 20:11 WBC (3.8-10.6) k/uL RBC (4.30-5.90) m/uL Hgb (13.0-17.5) gm/dL Hct (39.0-53.0) % MCV (80.0-100.0) fL MCHC (31.0-37.0) g/dL RDW (11.5-15.5) % Plt Count (150-450) k/uL Lymphocytes # (1.0-4.8) k/uL Macrocytosis PT (9.0-12.0) sec INR (<1.2) APTT (22.0-30.0) sec ABG pH 7.33 L (7.35-7.45) ABG pCO2 59 H (35-45) mmHg ABG pO2 59 L* (83-108) mmHg ABG HCO3 31 H (21-25) mmol/L ABG Total CO2 33 H (19-24) mmol/L ABG O2 Saturation 89.5 L (94-97) % Sodium (137-145) mmol/L Chloride (98-107) mmol/L BUN (9-20) mg/dL Creatinine (0.66-1.25) mg/dL Glucose (74-99) mg/dL POC Glucose (mg/dL) 168 H 168 H (75-99) mg/dL Calcium (8.4-10.2) mg/dL Magnesium (1.6-2.3) mg/dL Total Protein (6.3-8.2) g/dL Albumin (3.5-5.0) g/dL Crossmatch 08/22/21 08/22/21 08/23/21 Range/Units 21:13 23:50 03:45 WBC 13.8 H (3.8-10.6) k/uL RBC 2.84 L (4.30-5.90) m/uL Hgb 8.8 L (13.0-17.5) gm/dL Hct 31.1 L (39.0-53.0) % MCV 109.5 H (80.0-100.0) fL MCHC 28.3 L (31.0-37.0) g/dL RDW 19.6 H (11.5-15.5) % Plt Count 115 L (150-450) k/uL Lymphocytes # (1.0-4.8) k/uL Macrocytosis Marked A PT (9.0-12.0) sec INR (<1.2) APTT (22.0-30.0) sec ABG pH (7.35-7.45) ABG pCO2 48 H (35-45) mmHg ABG pO2 67 L (83-108) mmHg ABG HCO3 30 H (21-25) mmol/L ABG Total CO2 31 H (19-24) mmol/L ABG O2 Saturation (94-97) % Sodium (137-145) mmol/L Chloride (98-107) mmol/L BUN (9-20) mg/dL Creatinine (0.66-1.25) mg/dL Glucose (74-99) mg/dL POC Glucose (mg/dL) 167 H (75-99) mg/dL Calcium (8.4-10.2) mg/dL Magnesium (1.6-2.3) mg/dL Total Protein (6.3-8.2) g/dL Albumin (3.5-5.0) g/dL Crossmatch 08/23/21 08/23/21 08/23/21 Range/Units 03:45 03:45 03:46 WBC (3.8-10.6) k/uL RBC (4.30-5.90) m/uL Hgb (13.0-17.5) gm/dL Hct (39.0-53.0) % MCV (80.0-100.0) fL MCHC (31.0-37.0) g/dL RDW (11.5-15.5) % Plt Count (150-450) k/uL Lymphocytes # (1.0-4.8) k/uL Macrocytosis PT 42.2 H (9.0-12.0) sec INR 4.2 H (<1.2) APTT (22.0-30.0) sec ABG pH (7.35-7.45) ABG pCO2 (35-45) mmHg ABG pO2 (83-108) mmHg ABG HCO3 (21-25) mmol/L ABG Total CO2 (19-24) mmol/L ABG O2 Saturation (94-97) % Sodium 146 H (137-145) mmol/L Chloride 112 H (98-107) mmol/L BUN 95 H (9-20) mg/dL Creatinine 1.96 H (0.66-1.25) mg/dL Glucose 196 H (74-99) mg/dL POC Glucose (mg/dL) 207 H (75-99) mg/dL Calcium 6.5 L (8.4-10.2) mg/dL Magnesium (1.6-2.3) mg/dL Total Protein (6.3-8.2) g/dL Albumin (3.5-5.0) g/dL Crossmatch 08/23/21 08/23/21 08/23/21 Range/Units 06:12 06:16 12:01 WBC (3.8-10.6) k/uL RBC (4.30-5.90) m/uL Hgb (13.0-17.5) gm/dL Hct (39.0-53.0) % MCV (80.0-100.0) fL MCHC (31.0-37.0) g/dL RDW (11.5-15.5) % Plt Count (150-450) k/uL Lymphocytes # (1.0-4.8) k/uL Macrocytosis PT (9.0-12.0) sec INR (<1.2) APTT (22.0-30.0) sec ABG pH (7.35-7.45) ABG pCO2 48 H (35-45) mmHg ABG pO2 70 L (83-108) mmHg ABG HCO3 27 H (21-25) mmol/L ABG Total CO2 28 H (19-24) mmol/L ABG O2 Saturation (94-97) % Sodium (137-145) mmol/L Chloride (98-107) mmol/L BUN (9-20) mg/dL Creatinine (0.66-1.25) mg/dL Glucose (74-99) mg/dL POC Glucose (mg/dL) 211 H 147 H (75-99) mg/dL Calcium (8.4-10.2) mg/dL Magnesium (1.6-2.3) mg/dL Total Protein (6.3-8.2) g/dL Albumin (3.5-5.0) g/dL Crossmatch Microbiology - Last 24 Hours (Table) 08/23/21 00:11 Sputum Culture - Preliminary Sputum 08/22/21 16:50 Urine Culture - Preliminary Urine,Catheterized Assessment and Plan Assessment: Impression 1. Abrupt worsening with respiratory failure on 100% FiO2 and in shock with large doses of vasopressin and Levophed keeping his pressure up in the 90s 200s. Creatinine improved though surprisingly from 2.48-1.96 with urine output of thousand cc 2. Status post oriented bypass graft and valve repair. Echocardiogram last time done shows pulmonary hypertension. Recommendation 1. Continue the same. 2. Patient has poor prognosis given his hemodynamic status. 3. If need be he can be diuresed to see if his respiratory status will improve. Of course this may drop his blood pressure.
--- NOTE | 2021-08-23 14:56 | CT ---
EXAMINATION TYPE: CT abdomen pelvis wo con DATE OF EXAM: 08/23/2021 COMPARISON: None HISTORY: abdominal distention CT DLP: 941.6 mGycm Automated exposure control for dose reduction was used. Images obtained from the diaphragm to the floor the pelvis with oral contrast only. There is extensive airspace infiltrate in both lower lobes. There is moderate size right pleural effu natividad. There is right-sided chest tube noted in the pleural space. Liver is intact. There is contrast in the stomach and in the small bowel. There is contrast extending into the right colon. No evidence of a bowel obstruction. Spleen is intact. There is no pancreatic m ass. Gallbladder is intact. There is some mild abdominal ascites fluid. There is Cortes catheter in th e urinary bladder. Urinary bladder wall appears thickened. No evidence of pneumoperitoneum. The kidne ys have normal size. No hydronephrosis. No adrenal mass. There are sternal wires. The lumbar vertebra have normal alignment. No compression fracture. The bony pelvis is intact. The hip joints appear intact. There is extensive arterial vascular calcification i n the abdomen. IMPRESSION: Extensive lower lobe pulmonary consolidation. Right pleural effusion. Cardiomegaly. There is probably chronic congestive heart failure. Urinary bladder wall thickening is nonspecific and could relate to cystitis. Abdominal ascites. Atherosclerotic vascular disease.
[2021-08-23 18:12] LABS: Glucose,Whole Blood 102 mg/dL (75-99)
--- NOTE | 2021-08-23 19:35 | PN ---
PROGRESS NOTE DATE OF SERVICE: 08/22/2021 This 81-year-old gentleman who was admitted after bowel surgery, is improving, but however, yesterday the patient had taken a turn for the worse and the patient has to be intubated. The patient is on max dose pressors and the patient is also on 100% FiO2 with PEEP of 8. Patient closely monitored in ICU. The patient had right-sided pleural effusion and abdominal pelvis CAT scan done recently, reviewed personally by me, showed extensive left lower lobe consolidation. The patient hypothermic. Past medical history reviewed. REVIEW OF SYMPTOMS: Could not be taken, the patient mechanically intubated. CURRENT MEDICATIONS: Reviewed and include: DuoNeb q.i.d., vitamin C, and other medications. PHYSICAL EXAMINATION: Pulse is 90, blood pressure 120/50, respirations 24. HEENT: Conjunctivae normal. Neck is no JVD. Cardiovascular system: S1, S2 muffled. Respiration: Bilateral scattered rhonchi and crackles. Abdomen: Soft. Nervous system: Sedated. LABS: Reviewed. WBC 13, hemoglobin is 8.8. ASSESSMENT: 1. 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 2. Right pleural effusion. 3. Chronic obstructive pulmonary disease. 4. Acute hypoxic respiratory failure. 5. Possible right-sided pneumonia consolidation. 6. 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 7. Renal insufficiency. 8. Klebsiella pneumonia. 9. Hypoglycemia. 10.Gait dysfunction. 11.Full nutrition support, status post PEG tube placement. RECOMMENDATIONS AND DISCUSSION: I recommend to continue current management. Empiric antibiotics. Cultures. Closely follow with multiple consultants. Prognosis guarded. Further recommendations to follow. See orders for details. MMODL / IJN: [id number] /
[2021-08-23] MEDS: ATORVASTATIN 40 MG TAB PO SCH (20:13)
[2021-08-23] MEDS: CALCIUM ACETATE 667 MG TAB PO SCH (20:13)
[2021-08-23 23:20] LABS: Glucose,Whole Blood 112 mg/dL (75-99)
[2021-08-23] MEDS: CEFEPIME 1 GM in SODIUM CHLORIDE 0.9% 50 ML IVPB SCH (23:25)
[2021-08-24] MEDS: IPRATROPIUM-ALBUTEROL 3 ML NEB INHALATION SCH ×7 (00:30→23:05)
[2021-08-24] MEDS: SODIUM CHLORIDE 0.9% 50 ML with VASOPRESSIN 20 UNIT IVPB SCH ×8 (00:57→20:10)
[2021-08-24] MEDS: NOREPINEPHRINE 32 MG in SODIUM CHLORIDE 0.9% 218 ML IV SCH ×4 (01:38→18:01)
[2021-08-24 04:03] LABS: Glucose,Whole Blood 118 mg/dL (75-99)
[2021-08-24 04:23] LABS: Anisocytosis Slight; Basophils % (A) 0 %; Eosinophils # (A) 0.3 k/uL (0-0.7); Eosinophils % (A) 2 %; HCT 29.2 % (39.0-53.0); HGB 8.4 gm/dL (13.0-17.5); Hypochromasia Marked; Lymphocytes # (A) 0.3 k/uL (1.0-4.8); Lymphocytes % (A) 2 %; MCH 30.5 pg (25.0-35.0); MCHC 28.7 g/dL (31.0-37.0); MCV 106.5 fL (80.0-100.0); Macrocytosis Marked; Mean Platelet Volume 10.6; Monocytes # (A) 0.5 k/uL (0-1.0); Monocytes % (A) 3 %; Neutrophils # (A) 14.4 k/uL (1.3-7.7); Neutrophils % (A) 92 %; Platelet Count 114 k/uL (150-450); Poikilocytosis Slight; RBC 2.74 m/uL (4.30-5.90); RDW 19.4 % (11.5-15.5); WBC 15.7 k/uL (3.8-10.6)
[2021-08-24 04:39] LABS: INR 4.5 (<1.2); Prothrombin Time 44.8 sec (9.0-12.0)
[2021-08-24 05:13] LABS: ABG Base Excess 0.6 mmol/L; ABG HCO3 26 mmol/L (21-25); ABG Oxygen Saturation 99.9 % (94-97); ABG PCO2 44 mmHg (35-45); ABG PH 7.38 (7.35-7.45); ABG PO2 147 mmHg (83-108); ABG TCO2 27 mmol/L (19-24); Allen Test Performed? Yes
[2021-08-24 05:14] LABS: Albumin 1.9 g/dL (3.5-5.0); Calcium 6.7 mg/dL (8.4-10.2); Potassium 4.4 mmol/L (3.5-5.1); Total Bilirubin 1.6 mg/dL (0.2-1.3); Total Protein 4.2 g/dL (6.3-8.2)
[2021-08-24 05:22] LABS: Anisocytosis (M) Present; Poikilocytosis (M) Present; Polychromasia Present
[2021-08-24] MEDS: INSULIN ASPART (NovoLOG) 100 UNIT/ML VIAL SQ SCH ×3 (05:54→18:27)
[2021-08-24 05:55] LABS: Glucose,Whole Blood 121 mg/dL (75-99)
--- NOTE | 2021-08-24 06:59 | XR ---
EXAMINATION TYPE: XR chest 1V portable DATE OF EXAM: 08/24/2021 5:49 AM COMPARISON: Chest radiographs from 08/23/2021. TECHNIQUE: XR chest 1V portable Frontal view of the chest. CLINICAL INDICATION:Male, 81 years old with history of Tube placement; FINDINGS: Lungs/Pleura: Similar multifocal airspace opacities. No evidence of pneumothorax or pleural effusion. Pulmonary vascularity: Unremarkable. Heart/mediastinum: Cardiomediastinal silhouette is enlarged and stable. Single-lead cardiac conductio n device overlying the left hemithorax with lead projecting over the right ventricle. Musculoskeletal: No acute osseous pathology. Lines/Tubes: Endotracheal tube with distal tip 7.9 cm above the benoit Nasogastric tube with its distal tip and side-port projecting under the diaphragm. Left internal jugular central venous catheter with distal tip at the superior vena cava brachiocephal ic vein junction. Right thoracotomy tube is present without evidence of pneumothorax. IMPRESSION: 1. Similar multifocal airspace opacities. 2. Stable support lines and tubes.
[2021-08-24] MEDS ORDERED: CALCIUM GLUCONATE IN NACL 2 GM in SALINE 1 100ML.BAG IVPB ONE (07:00)
[2021-08-24] MEDS: SYMBICORT 160-4.5 MCG INHALER INHALATION SCH (07:14)
--- NOTE | 2021-08-24 07:33 | P.PN ---
Subjective Progress Note Date: 08/24/21 Principal diagnosis: Mitral valve regurgitation, tricuspid valve regurgitation, coronary artery disease. Previous medical history of CAD with previous cardial infarction and PCI, hypertension, chronic atrial fibrillation on Coumadin for anticoagulation status post cardioversion, sick sinus syndrome [facility] [facility] permanent pacemaker placement in 2017, chronic systolic heart failure, atrial septal defect status post closure, previous MitraClip in 2019, chronic renal insufficiency, previous tobacco dependence, severe restrictive lung disease, obstructive sleep apnea, recurrent right-sided pleural effusio with previous thoracentesis x 4, remote history of pneumonia, untreated prostate cancer which was diagnosed in May 2019, family history of premature coronary artery disease POD #27 mitral valve replacement with 31 mm Mosaic porcine valve prosthesis, tricuspid valve repair with 30 mm MC3 band, coronary artery bypass grafting 1 with reverse saphenous vein graft to the obtuse marginal artery, endovascular vein harvest of the left greater saphenous vein, epi-aortic ultrasound, closure of the left atrial appendage, closure of ASD Postoperative acute blood loss anemia and thrombocytopenia, expected given hemodilution and cardiopulmonary bypass pump Coagulopathy, unexpected Right-sided pleural effusion, expected given history of previous right-sided effusion with thoracentesis 4, status post right-sided pigtail catheter placement by interventional radiology, status post right sided pleurX catheter Leukocytosis, afebrile, sputum culture positive for Klebsiella pneumoniae Altered mental status after surgery due to delirium from lack of sleep, resolved Urinary retention, expected given his history of prostate cancer, requiring placement of Cortes catheter POD #4 EGD with PEG tube placement The patient was seen and examined this morning laying in bed mechanically ventilated in the intensive care unit. The patient's condition has not worsened although has not significantly improved either. Patient went down for abdominal CT yesterday which did not demonstrate any acute process. Urine culture remains negative. Sputum culture still preliminary, blood culture still preliminary Gram stain shows gram-positive cocci. Patient was started on cefepime and vancomycin yesterday. In addition trickle feeds were initiated through his PEG tube forgot integrity. His FiO2 was lowered to 90% from 100% this morning. Urine output remains adequate. Sodium bicarb was stopped yesterday. Patient does remain on high-dose levo and vaso-. Arterial line and central line were placed yesterday. and sister remained at the bedside, stated the patient's children will be coming in to town tomorrow and they're hoping the patient can stay relatively stable at least long enough for their children to get here from out of town. Objective - Vital Signs Vital signs: Vital Signs Temp 98.1 F 08/24/21 04:00 Pulse 94 08/24/21 07:14 Resp 25 H 08/24/21 06:00 BP 110/73 08/24/21 06:00 Pulse Ox 99 08/24/21 06:00 Intake & Output 08/23/21 08/24/21 08/24/21 18:59 06:59 18:59 Intake Total 2117.226 1791.713 Output Total 610 450 Balance 6037.579 5770.713 Weight 68.7 kg Intake: IV 1458 936 Dextrose 5% in Water 1, 150 000 ml @ 150 mls/hr IV . Q7H40M [facility] with Sodium Bicarb (1 Meq/ml) 150 ml Rx#:[id number] Pressure Bag 33 36 Sodium Chloride 0.45% 1, 1275 900 000 ml @ 75 mls/hr IV . [id number] [facility] Rx#:[id number] Intake, IV Titration 639.226 645.713 Amount Norepinephrine 32 mg In 228.430 217.373 Sodium Chloride 0.9% 218 ml @ 0.9 MCG/KG/MIN 28. 983 mls/hr IV .Q8H38M [facility] Rx#:[id number] Norepinephrine 4 mg In 208.089 254 Sodium Chloride 0.9% 250 ml @ 0.1 MCG/KG/MIN 26. 175 mls/hr IV .Q9H43M [facility] Rx#:[id number] propofoL 1,000 mg In 202.707 174.340 Empty Bag 1 bag @ 5 MCG/ KG/MIN 2.061 mls/hr IV . Q24H [facility] Rx#:[id number] Tube Feeding 20 120 Other 90 Output: Urine 610 450 Other: Voiding Method Indwelling Catheter Indwelling Catheter ABP, PAP, CO, CI - Last Documented Arterial Blood Pressure 100/42 Pulmonary Artery Pressure 35/28 Cardiac Output 5 Cardiac Index 2.7 - Exam CONSTITUTIONAL: Appears comfortable, lying in bed on mechanical ventilation, critically ill RESPIRATORY: Lungs sounds diminished/course bilaterally, right greater than left. Respirations even, nonlabored on mechanical ventilation. Current ventilator settings FiO2 90%, PEEP 8, tidal volume 450, respiratory rate 24. 8.0 ET tube present, 22 at the lip. Oxygen saturation 99%. CARDIOVASCULAR: S1, S2 present. Controlled atrial fibrillation on telemetry with heart rate in the 90s. Sternum stable. Palpable peripheral pulses bilaterally. No edema present. No calf pain or tenderness noted. Heart hugger, SUMI hose, SCDs in place. GASTROINTESTINAL: Abdomen soft, nontender, slightly distended. Hypoactive to no bowel sounds present 4 quadrants, abdomen less tympanic to percussion. Positive bowel movement 08/21/21 per nursing. PEG tube in place with tube feeding infusing at 10 mL per hour GENITOURINARY: Cortes catheter remains, urine output 30-50 mL/h overnight, 1060 mL in the last 24 hours INTEGUMENTARY: Skin is warm and dry. Anterior chest incision well sudheer roximated. Left lower extremity EVH site well approximated without redness or drainage. Right pleurx cath site without redness, dressing present. PEG tube site without redness NEUROLOGIC: Sedated and mechanically ventilated PSYCHIATRIC: Sedated and mechanically ventilated INVASIVE LINES: Left internal jugular triple-lumen central line, right radial arterial line present - Allied health notes Allied health notes reviewed: nursing - Labs CBC & Chem 7: 08/24/21 03:55 08/24/21 03:55 Labs: Abnormal Lab Results - Last 24 Hours (Table) 08/22/21 08/23/21 08/23/21 Range/Units 16:28 12:01 18:11 WBC (3.8-10.6) k/uL RBC (4.30-5.90) m/uL Hgb (13.0-17.5) gm/dL Hct (39.0-53.0) % MCV (80.0-100.0) fL MCHC (31.0-37.0) g/dL RDW (11.5-15.5) % Plt Count (150-450) k/uL Neutrophils # (1.3-7.7) k/uL Lymphocytes # (1.0-4.8) k/uL Macrocytosis PT (9.0-12.0) sec INR (<1.2) ABG pO2 (83-108) mmHg ABG HCO3 (21-25) mmol/L ABG Total CO2 (19-24) mmol/L ABG O2 Saturation (94-97) % Chloride (98-107) mmol/L BUN (9-20) mg/dL Creatinine (0.66-1.25) mg/dL Glucose (74-99) mg/dL POC Glucose (mg/dL) 147 H 102 H (75-99) mg/dL Calcium (8.4-10.2) mg/dL Total Bilirubin (0.2-1.3) mg/dL Total Protein (6.3-8.2) g/dL Albumin (3.5-5.0) g/dL Crossmatch See Detail 08/23/21 08/24/21 08/24/21 Range/Units 23:17 03:55 03:55 WBC 15.7 H (3.8-10.6) k/uL RBC 2.74 L (4.30-5.90) m/uL Hgb 8.4 L (13.0-17.5) gm/dL Hct 29.2 L (39.0-53.0) % MCV 106.5 H (80.0-100.0) fL MCHC 28.7 L (31.0-37.0) g/dL RDW 19.4 H (11.5-15.5) % Plt Count 114 L (150-450) k/uL Neutrophils # 14.4 H (1.3-7.7) k/uL Lymphocytes # 0.3 L (1.0-4.8) k/uL Macrocytosis Marked A PT 44.8 H (9.0-12.0) sec INR 4.5 H (<1.2) ABG pO2 (83-108) mmHg ABG HCO3 (21-25) mmol/L ABG Total CO2 (19-24) mmol/L ABG O2 Saturation (94-97) % Chloride (98-107) mmol/L BUN (9-20) mg/dL Creatinine (0.66-1.25) mg/dL Glucose (74-99) mg/dL POC Glucose (mg/dL) 112 H (75-99) mg/dL Calcium (8.4-10.2) mg/dL Total Bilirubin (0.2-1.3) mg/dL Total Protein (6.3-8.2) g/dL Albumin (3.5-5.0) g/dL Crossmatch 08/24/21 08/24/21 08/24/21 Range/Units 03:55 04:00 05:09 WBC (3.8-10.6) k/uL RBC (4.30-5.90) m/uL Hgb (13.0-17.5) gm/dL Hct (39.0-53.0) % MCV (80.0-100.0) fL MCHC (31.0-37.0) g/dL RDW (11.5-15.5) % Plt Count (150-450) k/uL Neutrophils # (1.3-7.7) k/uL Lymphocytes # (1.0-4.8) k/uL Macrocytosis PT (9.0-12.0) sec INR (<1.2) ABG pO2 147 H (83-108) mmHg ABG HCO3 26 H (21-25) mmol/L ABG Total CO2 27 H (19-24) mmol/L ABG O2 Saturation 99.9 H (94-97) % Chloride 112 H (98-107) mmol/L BUN 84 H (9-20) mg/dL Creatinine 1.94 H (0.66-1.25) mg/dL Glucose 113 H (74-99) mg/dL POC Glucose (mg/dL) 118 H (75-99) mg/dL Calcium 6.7 L (8.4-10.2) mg/dL Total Bilirubin 1.6 H (0.2-1.3) mg/dL Total Protein 4.2 L (6.3-8.2) g/dL Albumin 1.9 L (3.5-5.0) g/dL Crossmatch 08/24/21 Range/Units 05:54 WBC (3.8-10.6) k/uL RBC (4.30-5.90) m/uL Hgb (13.0-17.5) gm/dL Hct (39.0-53.0) % MCV (80.0-100.0) fL MCHC (31.0-37.0) g/dL RDW (11.5-15.5) % Plt Count (150-450) k/uL Neutrophils # (1.3-7.7) k/uL Lymphocytes # (1.0-4.8) k/uL Macrocytosis PT (9.0-12.0) sec INR (<1.2) ABG pO2 (83-108) mmHg ABG HCO3 (21-25) mmol/L ABG Total CO2 (19-24) mmol/L ABG O2 Saturation (94-97) % Chloride (98-107) mmol/L BUN (9-20) mg/dL Creatinine (0.66-1.25) mg/dL Glucose (74-99) mg/dL POC Glucose (mg/dL) 121 H (75-99) mg/dL Calcium (8.4-10.2) mg/dL Total Bilirubin (0.2-1.3) mg/dL Total Protein (6.3-8.2) g/dL Albumin (3.5-5.0) g/dL Crossmatch Microbiology - Last 24 Hours (Table) 08/22/21 15:25 Blood Culture Gram Stain - Preliminary Blood 08/22/21 15:25 Blood Culture - Final Blood 08/22/21 16:50 Urine Culture - Final Urine,Catheterized 08/23/21 00:11 Sputum Culture - Preliminary Sputum - Imaging and Cardiology Chest x-ray: report reviewed, image reviewed Assessment and Plan Assessment: 1. Mitral valve regurgitation, previous MitraClip in 2019, status post post mitral valve replacement 2. Tricuspid valve regurgitation, status post tricuspid valve repair 3. Coronary artery disease with previous myocardial infarction and PCI, status post 1 vessel CABG 4. History of hypertension, currently hypotensive maxed on pressors 5. Chronic atrial fibrillation on Coumadin for anticoagulation status post cardioversion, status post closure of the left atrial appendage 6. Sick sinus syndrome status post [facility] [facility] permanent pacemaker placement in 2016 7. Chronic systolic heart failure 8. Atrial septal defect status post closure 9. Acute on chronic renal insufficiency stage IIIB, baseline creatinine 1.6-1.7 10. Previous tobacco dependence 11. Severe restrictive lung disease, preoperative FEV1 47% of predicted 12. Recurrent right-sided pleural effusion, patient had right sided thoracentesis twice in 2019 and twice in 2020, status post right-sided pigtail catheter placement by IR, status post right sided pleurX catheter placement 13. Obstructive sleep apnea 14. Remote history of pneumonia 15. History of prostate cancer, untreated 16. Family history of premature coronary artery disease 17. Postoperative acute blood loss anemia and thrombocytopenia, expected 18. Coagulopathy, unexpected 19. Leukocytosis, elevated pro-calcitonin, afebrile, sputum culture positive for Klebsiella pneumoniae 20. Altered mental status after surgery due to delirium from lack of sleep, resolved 21. Urinary retention requiring placement of Cortes catheter 22. Malnutrition and general debility, status post PEG tube placement for supplemental feeding 23. Acute hypoxic respiratory failure, unexpected, reintubated Plan: 1. Continue low-dose aspirin, statin. Continue Levo and vaso-for hypotension 2. Ventilator management per pulmonology 3 Will monitor daily labs and x-rays. Electrolyte replacement per protocol. 4. GI/DVT prophylaxis 5. Continue antibiotics, monitor for finalized cultures 6. Insulin management per primary care service. Patient is not diabetic, preoperative hemoglobin A1c 5.8% 7. Pain control per current medication regimen. 8. Strict accurate intake and output. Daily weights 9. Continue low-dose tube feeding 10. Family updated continuously. Patient is no code and we will not escalate care, however as long as patient doesn't deteriorate family would like to wait to make any decisions about withdrawal of care until children are present tomorrow 11. Patient remains critically ill, prognosis guarded
[2021-08-24] MEDS: FERROUS SULFATE 325 MG TAB PO SCH (08:48)
[2021-08-24] MEDS: PANTOPRAZOLE 40 MG/10 ML VIAL IVP SCH ×2 (08:48→20:13)
[2021-08-24] MEDS: ASPIRIN 81 MG PO SCH (08:48)
[2021-08-24] MEDS: MIDODRINE 5 MG TAB PO SCH ×3 (08:48→18:27)
[2021-08-24] MEDS: CHLORHEXIDINE GLUCONATE 15 ML CUP MUCOUS MEM SCH ×2 (08:48→20:13)
[2021-08-24] MEDS: ASCORBIC ACID 500 MG TAB PO SCH (08:48)
[2021-08-24] MEDS: SODIUM CHLORIDE 0.45% 1,000 ML IV SCH ×2 (10:32→23:13)
[2021-08-24] MEDS: VANCOMYCIN 1,250 MG in SODIUM CHLORIDE 0.9% 250 ML IVPB SCH (10:33)
--- NOTE | 2021-08-24 11:25 | P.PN ---
Subjective Progress Note Date: 08/24/21 The patient is seen today 08/12/2021 in follow-up in the intensive care unit. He is postoperative day #15 above mitral valve replacement, tricuspid valve repair and coronary artery bypass grafting times one. He had had issues with recurrent right-sided pleural effusion and is status post right-sided pigtail catheter in place. Proximal main 400 ML's of serosanguineous fluid drained overnight. Left-sided chest tube remains in place with an another 200 ML's of serosanguineous fluid drained. He is requiring 6 L of high flow nasal cannula to maintain O2 saturations in the 90s. Chest x-ray shows improvement in the pleural effusions. There is still bilateral opacities and some interstitial changes consistent with congestive heart failure. Moderate cardiomegaly. He is alert and oriented today. He still has complaints of a sore mouth. His appetite has been poor. Current cardiac rhythm is paced. Urine cultures revealed no growth. Blood cultures reveal no growth. Sputum culture from 10/2021 was positive for Klebsiella pneumoniae. White count 13.2. Hemoglobin 8.5. Platelets 261. Sodium 133. Potassium 4.8. Bicarb 21. BUN 119. Creatinine 2.80. Glucose 138. He is status post 2 units of packed red blood cells, 4 units of fresh frozen plasma and 2 units of platelets this admission. He is continued on nystatin swish and swallow, bronchodilators, heparin for DVT prophylaxis. Remains on Bumex. Currently in a -125 ML balance. Patient is seen today 08/13/2021 in follow-up in the intensive care unit. He is postoperative day #16. He is currently resting fairly comfortably in bed. He is requiring 10 L high flow nasal cannula to maintain O2 saturations in the low 90s. His bilateral chest tubes have been removed. This morning chest x-ray revealed loculated right costophrenic angle pneumothorax. Minimal right apical pneumothorax. Evidence of cardiomegaly with prominent pulmonary vascular congestion. Previous sputum had been positive for Klebsiella pneumoniae. White count 13.8. Hemoglobin 8.7. Platelets 242. INR 2.0. Sodium 134. Potassium 5.2. BUN 126. Creatinine 2.4. He is continued on DuoNeb inhalations, IV Bumex, antibiotics in the form of cefepime. He'll also be trialed on BiPAP 04/07 and titrate the FiO2. He is continued on Protonix for GI prophylaxis. His appetite has improved on a pured diet. He seems to tolerate that better. Less mouth discomfort. The patient is seen today 08/19/2021 in follow-up in intensive care unit. He is currently sitting up in a chair at the bedside. Awake and alert in no acute distress. Skin of the brain revealed chronic ischemic changes and scattered chronic infarcts. 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 No intracranial hemorrhage or gross acute cortical infarct. He is still maint aining O2 saturations in the 90s on 3 L/m per nasal cannula. He is pulling approximately 1000 ML's on his incentive spirometer. Chest x-ray continues to show diffuse increased lung markings in the right mid and lower lung field. Small right pleural effusion is present. Mild left basilar infiltrate. Pleurx catheter drained by CT services for 250 mL today. He is status post 2 units of packed red blood cells, 4 units of fresh frozen plasma, 2 units of platelets this admission. Sputum culture had been previously positive for Klebsiella pneumonia. White count 10.6. Hemoglobin 8.9. Platelets 134. INR 2.2. Sodium 148. Potassium 3.9. Chloride 114. Bicarb 26. BUN 119. Creatinine 2.41. Glucose 133. He continues to have poor oral intake. He continues to eat less than 50% of his meals. The plan is for possible PEG tube placement. He is continued on DuoNeb inhalations, Symbicort inhalations. Initiated back on his Zoloft. The patient is seen today 08/20/2021 in follow-up in the intensive care unit. He is awake and alert in no acute distress. He is maintaining O2 saturations in the 90s on 6 L high flow nasal cannula. Chest x-ray continues to show persistent pulmonary vascular congestion with right-sided pleural effusion and pleural parenchymal density with cardiomegaly. Hilar mediastinal structures are within normal limits. He is currently sitting up in the recliner at the bedside. He did utilize BiPAP last night 04/07 and 50% FiO2. He has D5W running at 75 ML's per hour. PEG tube was not placed yesterday due to elevated INR. INR today is 1.9. Blood glucose 161. The rest of the labs are pending. He is continued on DuoNeb inhalations, Symbicort. Encouraged to continue to work well with the incentive spirometer. He has been seen by psychiatric services for questionable depression. He is continued on Zoloft. Remeron was added at bedtime. He is also on Megace to try to improve his appetite. Heparin for DVT prophylaxis. The patient is seen today 08/22/2019 in follow-up in the intensive care unit. He is currently sitting up in a chair at the bedside. Awake and alert in no acute distress. He is down to 2 L nasal cannula maintaining O2 saturations in the 90s. He is utilizing BiPAP at night 04/07 and 50% FiO2. He has D5W at 75 ML's per hour. He did have a PEG tube placed yesterday. He is continued on Symbicort and DuoNeb inhalations. Anticoagulated with warfarin. White count 9.7. Hemoglobin 9.3. We will count 102,000. INR 2.2. Sodium 136. Potassium 4.0. The 183. Creatinine 1.88. AST 33. ALT 18. Albumin 2.6. Chest x-ray continues to show pleural effusion and associated atelectasis. CT services removed 200 mL of thin serosanguineous drainage from his right Pleurx catheter today. The patient is seen today 08/22/2021 in follow-up in the intensive care unit. He is awake and alert in no acute distress. Sitting up at the bedside. Currently on 5 L high flow nasal cannula with O2 saturation at 94%. He is afebrile. Hemodynamically stable. 6 continues to show right lower lobe infiltrate with small pleural effusion. Pleurx catheter remains in place. Sputum culture had been positive for Klebsiella pneumoniae. . Completed a course of antibiotics. He remains on Symbicort, DuoNeb inhalations, continues to work with the incentive spirometer. Antegrade related with warfarin and INR 2.7. He white count 17.9. Hemoglobin 8.9. Platelets 104. Sodium 146. Potassium 4.3. BUN 101. Creatinine 2.06. Glucose 142. The patient is seen today 08/23/2021 in follow-up in the intensive care unit. Yesterday his condition started to deteriorate. He became quite hypotensive. He went on to require pressor support and he ended up requiring been placed back on the mechanical ventilator around 1630. He is seen today in the ICU. Current vent settings are's control mode at a rate of 24, tidal volume 450, FiO2 100% and a PEEP of 8. Morning blood gases revealed a PaO2 of 70, pCO2 40, pH 7.35. Tube feedings are placed on hold. He was initiated on a bicarb drip D5W with 3 A of sodium bicarb at 50 MLS per hour. He is sedated with propofol at 45 mcg/kg/m. He is on norepinephrine at 61 mcg/m. Vasopressin at 0.04 units per minute. Chest x-ray continues to revealed bilateral airspace disease. No evidence of pneumothorax. Right-sided Pleurx catheter remains in place. He has received 2 units of packed red blood cells, 4 units of fresh frozen plasma and 2 units of platelets so far this admission. White count 13.8. Hemoglobin 8.8. Platelets 115,000. INR 4.2. Sodium 146. Potassium 3.9. Chloride 112. Bicarb 29. BUN 95. Creatinine 1.96. Glucose 196. He's been afebrile. Paced rhythm. Currently in a +6.7 L balance. The patient is seen today 08/24/2021 in follow-up in the intensive care unit. He remains intubated and on the mechanical ventilator. Current settings are assist-control mode at a rate of 24, tidal volume 450, FiO2 80% and a PEEP of 8. Morning blood gases reveal a P O2 of 147, pCO2 of 44, pH 7.38 and 100% FiO2. He remains sedated with propofol at 40 mcg/kg/m. He has 0.45% normal saline at 75 ML's per hour. Vasopressin at 0.04 units per minute. Norepinephrine at 61 mcg/m. He is receiving tube feedings with Nepro at 10 mL per hour. Chest x-ray is revealing similar multifocal airspace opacities. Endotracheal tube inserted an additional 2cm centimeters. Nasogastric tube is in place. Left internal jugular triple-lumen catheter in place. Right Pleurx catheter in place. No evidence of pneumothorax. Follow-up blood cultures reveal no growth. Follow-up sputum culture pending. Previous culture positive for Klebsiella pneumoniae. He is currently on vancomycin and cefepime. Random cortisol level pending. The patient did have a significant amount of return from his nasogastric tube. Computed tomography scan of the abdomen and pelvis revealed extensive lower lobe pulmonary consolidation. Right pleural effusion. Cardiomegaly. Fluid volume overload. Abdominal ascites. Evidence of contrast and the stomach and small bowel. No evidence of bowel obstruction. Reglan is initiated today. He is currently in a 2.8 L positive balance. Family is at the bedside. Objective - Vital Signs Vital signs: Vital Signs Temp 98.9 F 08/24/21 08:00 Pulse 95 08/24/21 11:00 Resp 24 08/24/21 11:00 BP 110/73 08/24/21 06:00 Pulse Ox 97 08/24/21 11:00 Intake & Output 08/23/21 08/24/21 08/24/21 18:59 06:59 18:59 Intake Total 2117.226 1791.713 762.849 Output Total 610 450 395 Balance 9959.385 9211.713 367.849 Weight 68.7 kg Intake: IV 1458 936 390 Dextrose 5% in Water 1, 150 000 ml @ 150 mls/hr IV . Q7H40M PHIL with Sodium Bicarb (1 Meq/ml) 150 ml Rx#:[id number] Pressure Bag 33 36 15 Sodium Chloride 0.45% 1, 1275 900 375 000 ml @ 75 mls/hr IV . [id number] PHIL Rx#:[id number] Intake, IV Titration 639.226 645.713 292.849 Amount Norepinephrine 32 mg In 228.430 217.373 257.949 Sodium Chloride 0.9% 218 ml @ 0.9 MCG/KG/MIN 28. 983 mls/hr IV .Q8H38M PHIL Rx#:[id number] Norepinephrine 4 mg In 208.089 254 Sodium Chloride 0.9% 250 ml @ 0.1 MCG/KG/MIN 26. 175 mls/hr IV .Q9H43M PHIL Rx#:[id number] propofoL 1,000 mg In 202.707 174.340 34.9 Empty Bag 1 bag @ 5 MCG/ KG/MIN 2.061 mls/hr IV . Q24H PHIL Rx#:[id number] Tube Feeding 20 120 50 Other 90 30 Output: Drainage 100 Right Posterior 100 Urine 610 450 295 Other: Voiding Method Indwelling Catheter Indwelling Catheter Indwelling Catheter ABP, PAP, CO, CI - Last Documented Arterial Blood Pressure 121/50 Pulmonary Artery Pressure 35/28 Cardiac Output 5 Cardiac Index 2.7 - Exam GENERAL EXAM: Intubated, sedated frail 81-year-old male patient. On the mechanical ventilator with an FiO2 of 80% and a PEEP of 8. HEAD: Normocephalic. EYES: Sluggish reaction of pupils, equal size. NOSE: Clear with pink turbinates. THROAT: No erythema or exudates. NECK: No masses, no JVD. Left IJ triple-lumen catheter placed CHEST: No chest wall deformity. Sternal incision clean dry well approximated. Right-sided Pleurx catheter in place. LUNGS: Equal air entry with bilateral scattered rhonchi. CVS: S1 and S2 normal with no audible murmur, paced irregular rhythm. ABDOMEN: Distended, tympanic abdomen. Hypoactive. PEG tube in place. SPINE: No scoliosis or deformity SKIN: No rashes CENTRAL NERVOUS SYSTEM: No focal deficits, tone is normal in all 4 extremities. EXTREMITIES: There is no peripheral edema. No clubbing, no cyanosis. Peripheral pulses are intact. - Labs CBC & Chem 7: 08/24/21 03:55 08/24/21 03:55 Labs: Abnormal Lab Results - Last 24 Hours (Table) 08/22/21 08/23/21 08/23/21 Range/Units 16:28 12:01 18:11 WBC (3.8-10.6) k/uL RBC (4.30-5.90) m/uL Hgb (13.0-17.5) gm/dL Hct (39.0-53.0) % MCV (80.0-100.0) fL MCHC (31.0-37.0) g/dL RDW (11.5-15.5) % Plt Count (150-450) k/uL Neutrophils # (1.3-7.7) k/uL Lymphocytes # (1.0-4.8) k/uL Macrocytosis PT (9.0-12.0) sec INR (<1.2) ABG pO2 (83-108) mmHg ABG HCO3 (21-25) mmol/L ABG Total CO2 (19-24) mmol/L ABG O2 Saturation (94-97) % Chloride (98-107) mmol/L BUN (9-20) mg/dL Creatinine (0.66-1.25) mg/dL Glucose (74-99) mg/dL POC Glucose (mg/dL) 147 H 102 H (75-99) mg/dL Calcium (8.4-10.2) mg/dL Total Bilirubin (0.2-1.3) mg/dL Total Protein (6.3-8.2) g/dL Albumin (3.5-5.0) g/dL Crossmatch See Detail 08/23/21 08/24/21 08/24/21 Range/Units 23:17 03:55 03:55 WBC 15.7 H (3.8-10.6) k/uL RBC 2.74 L (4.30-5.90) m/uL Hgb 8.4 L (13.0-17.5) gm/dL Hct 29.2 L (39.0-53.0) % MCV 106.5 H (80.0-100.0) fL MCHC 28.7 L (31.0-37.0) g/dL RDW 19.4 H (11.5-15.5) % Plt Count 114 L (150-450) k/uL Neutrophils # 14.4 H (1.3-7.7) k/uL Lymphocytes # 0.3 L (1.0-4.8) k/uL Macrocytosis Marked A PT 44.8 H (9.0-12.0) sec INR 4.5 H (<1.2) ABG pO2 (83-108) mmHg ABG HCO3 (21-25) mmol/L ABG Total CO2 (19-24) mmol/L ABG O2 Saturation (94-97) % Chloride (98-107) mmol/L BUN (9-20) mg/dL Creatinine (0.66-1.25) mg/dL Glucose (74-99) mg/dL POC Glucose (mg/dL) 112 H (75-99) mg/dL Calcium (8.4-10.2) mg/dL Total Bilirubin (0.2-1.3) mg/dL Total Protein (6.3-8.2) g/dL Albumin (3.5-5.0) g/dL Crossmatch 08/24/21 08/24/21 08/24/21 Range/Units 03:55 04:00 05:09 WBC (3.8-10.6) k/uL RBC (4.30-5.90) m/uL Hgb (13.0-17.5) gm/dL Hct (39.0-53.0) % MCV (80.0-100.0) fL MCHC (31.0-37.0) g/dL RDW (11.5-15.5) % Plt Count (150-450) k/uL Neutrophils # (1.3-7.7) k/uL Lymphocytes # (1.0-4.8) k/uL Macrocytosis PT (9.0-12.0) sec INR (<1.2) ABG pO2 147 H (83-108) mmHg ABG HCO3 26 H (21-25) mmol/L ABG Total CO2 27 H (19-24) mmol/L ABG O2 Saturation 99.9 H (94-97) % Chloride 112 H (98-107) mmol/L BUN 84 H (9-20) mg/dL Creatinine 1.94 H (0.66-1.25) mg/dL Glucose 113 H (74-99) mg/dL POC Glucose (mg/dL) 118 H (75-99) mg/dL Calcium 6.7 L (8.4-10.2) mg/dL Total Bilirubin 1.6 H (0.2-1.3) mg/dL Total Protein 4.2 L (6.3-8.2) g/dL Albumin 1.9 L (3.5-5.0) g/dL Crossmatch 08/24/21 Range/Units 05:54 WBC (3.8-10.6) k/uL RBC (4.30-5.90) m/uL Hgb (13.0-17.5) gm/dL Hct (39.0-53.0) % MCV (80.0-100.0) fL MCHC (31.0-37.0) g/dL RDW (11.5-15.5) % Plt Count (150-450) k/uL Neutrophils # (1.3-7.7) k/uL Lymphocytes # (1.0-4.8) k/uL Macrocytosis PT (9.0-12.0) sec INR (<1.2) ABG pO2 (83-108) mmHg ABG HCO3 (21-25) mmol/L ABG Total CO2 (19-24) mmol/L ABG O2 Saturation (94-97) % Chloride (98-107) mmol/L BUN (9-20) mg/dL Creatinine (0.66-1.25) mg/dL Glucose (74-99) mg/dL POC Glucose (mg/dL) 121 H (75-99) mg/dL Calcium (8.4-10.2) mg/dL Total Bilirubin (0.2-1.3) mg/dL Total Protein (6.3-8.2) g/dL Albumin (3.5-5.0) g/dL Crossmatch Microbiology - Last 24 Hours (Table) 08/22/21 15:25 Blood Culture Gram Stain - Preliminary Blood 08/23/21 00:11 Gram Stain - Preliminary Sputum Sputum Culture - Preliminary 08/22/21 15:25 Blood Culture - Final Blood 08/22/21 16:50 Urine Culture - Final Urine,Catheterized Assessment and Plan Assessment: Mitral valve regurgitation, status post mitral valve replacement, tricuspid valve regurgitation, status post tricuspid valve repair, coronary artery disease, status post 1 vessel CABG. On 08/22/2021 the patient developed significant hypotension and subsequently re-required intubation mechanical ventilatory support. He is on 61 g of norepinephrine and 0.04 units of vasopressin. Requiring 80% FiO2 and a PEEP of 8 currently. Continued right-sided pleural effusion, Pleurx catheter placed Poor oral intake, PEG tube placed on 08/20/2021 Benign essential hypertension Chronic atrial fibrillation History of sick sinus syndrome and previous pacemaker placement in 2017 Chronic systolic congestive heart failure Atrial septal defect post closure Acute on chronic renal failure, baseline creatinine 1.6-1.7. Creatinine 1.94 Obstructive sleep apnea syndrome Chronic and recurrent right-sided pleural effusion requiring multiple thoracentesis procedures and now he continues to have a Pleurx catheter in place. Postoperative acute blood loss anemia and thrombocytopenia, expected Positive sputum for Klebsiella pneumonia, suspect Klebsiella pneumonia tracheobronchitis, completed cefepime Plan: The patient was seen and evaluated Chest x-ray, ABGs and labs reviewed Decreased FiO2 to 80%, remains on a PEEP of 8 Continue 0.45 normal saline at 75 ML's per hour Resumed antibiotics in the form of vancomycin and cefepime Continue pressors, titrate as tolerated Check a serum cortisol level Add Reglan 10 mg IV every 6 hours DuoNeb inhalations every 4 hours Overall condition is critical Family is at the bedside and aware of the current situation Awaiting for other family members to arrive from out of town DO NOT RESUSCITATE/DO NOT INTUBATE CODE STATUS We will continue to follow I have personally seen and examined the patient, performed the documentation and the assessment and plan as written. Number of minutes spent on the visit: 15.
--- NOTE | 2021-08-24 11:37 | P.PN ---
Progress Note - Text Progress Note Date: 08/24/21 Patient maintains intubated in the ICU. His tube feeds have restarted. PEG tube site is clean. He'll receive supportive care.
--- NOTE | 2021-08-24 11:40 | P.PN ---
Subjective Progress Note Date: 08/24/21 This is Henry Collins NP, I'm dictating on behalf of Dr. Barajas's H&P and A&P. Patient was interviewed and examined. Patient is an 81-year-old male who came in with mitral and tricuspid valve insufficiency, and is status post mitral valve clipping, with CABG. A couple of days ago it appears the patient required intubation, secondary to increased need of pressor medication in order to maintain vascular status. Patient has been hospitalized for 27 days at this point. Chest x-ray from today does not demonstrate any definitive cardiopulmonary process, except similar bilateral basilar opacities that were seen on prior x-rays. It is felt that his deteriorating condition may be secondary to pulmonary process. We will obtain a 2-D echocardiogram tomorrow to evaluate current heart function. GENERAL: Intubated, sedated. NECK: Supple without JVD or thyromegaly. LUNGS: Scattered rhonchi bilaterally. Respiration equal and unlabored. No wheezes, rales. HEART: Regular rate and rhythm without murmurs, rubs or gallops. S1 and S2 heard. EXTREMITIES: No clubbing or cyanosis. Peripheral pulses intact and strong. VITALS: Pulse 95, respirations 24, blood pressure 121/50, O2 saturation 97%; patient is on mechanical ventilation TELEMETRY: Normal sinus rhythm LABS: White count 15.7, hemoglobin 8.4, platelets 114, PT 44.8, INR 4.5 sodium 145, potassium 4.4, B1 84, creatinine 1.94, magnesium 2.0, IMPRESSION: Mitral regurgitation, status post mitral valve replacement Tricuspid regurgitation, status post tricuspid valve repair Coronary artery disease, status post CABG 1 Persistent atrial fibrillation, on warfarin Sick sinus syndrome, status post permanent pacemaker Chronic kidney disease, baseline 3A Acute kidney injury, improving Anemia, secondary to blood loss PLAN: No medication changes from a cardiac standpoint 2-D echo in the morning Continue to follow pulmonology recommendations Further recommendations based on patient's clinical course Objective - Vital Signs Vital signs: Vital Signs Temp 98.9 F 08/24/21 08:00 Pulse 95 08/24/21 11:00 Resp 24 08/24/21 11:00 BP 110/73 08/24/21 06:00 Pulse Ox 97 08/24/21 11:00 Intake & Output 08/23/21 08/24/21 08/24/21 18:59 06:59 18:59 Intake Total 2117.226 1791.713 762.849 Output Total 610 450 395 Balance 0850.831 0586.713 367.849 Weight 68.7 kg Intake: IV 1458 936 390 Dextrose 5% in Water 1, 150 000 ml @ 150 mls/hr IV . Q7H40M PHIL with Sodium Bicarb (1 Meq/ml) 150 ml Rx#:[id number] Pressure Bag 33 36 15 Sodium Chloride 0.45% 1, 1275 900 375 000 ml @ 75 mls/hr IV . [id number] PHIL Rx#:[id number] Intake, IV Titration 639.226 645.713 292.849 Amount Norepinephrine 32 mg In 228.430 217.373 257.949 Sodium Chloride 0.9% 218 ml @ 0.9 MCG/KG/MIN 28. 983 mls/hr IV .Q8H38M PHIL Rx#:[id number] Norepinephrine 4 mg In 208.089 254 Sodium Chloride 0.9% 250 ml @ 0.1 MCG/KG/MIN 26. 175 mls/hr IV .Q9H43M PHIL Rx#:[id number] propofoL 1,000 mg In 202.707 174.340 34.9 Empty Bag 1 bag @ 5 MCG/ KG/MIN 2.061 mls/hr IV . Q24H PHIL Rx#:[id number] Tube Feeding 20 120 50 Other 90 30 Output: Drainage 100 Right Posterior 100 Urine 610 450 295 Other: Voiding Method Indwelling Catheter Indwelling Catheter Indwelling Catheter ABP, PAP, CO, CI - Last Documented Arterial Blood Pressure 121/50 Pulmonary Artery Pressure 35/28 Cardiac Output 5 Cardiac Index 2.7 - Labs CBC & Chem 7: 08/24/21 03:55 08/24/21 03:55 Labs: Abnormal Lab Results - Last 24 Hours (Table) 08/22/21 08/23/21 08/23/21 Range/Units 16:28 12:01 18:11 WBC (3.8-10.6) k/uL RBC (4.30-5.90) m/uL Hgb (13.0-17.5) gm/dL Hct (39.0-53.0) % MCV (80.0-100.0) fL MCHC (31.0-37.0) g/dL RDW (11.5-15.5) % Plt Count (150-450) k/uL Neutrophils # (1.3-7.7) k/uL Lymphocytes # (1.0-4.8) k/uL Macrocytosis PT (9.0-12.0) sec INR (<1.2) ABG pO2 (83-108) mmHg ABG HCO3 (21-25) mmol/L ABG Total CO2 (19-24) mmol/L ABG O2 Saturation (94-97) % Chloride (98-107) mmol/L BUN (9-20) mg/dL Creatinine (0.66-1.25) mg/dL Glucose (74-99) mg/dL POC Glucose (mg/dL) 147 H 102 H (75-99) mg/dL Calcium (8.4-10.2) mg/dL Total Bilirubin (0.2-1.3) mg/dL Total Protein (6.3-8.2) g/dL Albumin (3.5-5.0) g/dL Crossmatch See Detail 08/23/21 08/24/21 08/24/21 Range/Units 23:17 03:55 03:55 WBC 15.7 H (3.8-10.6) k/uL RBC 2.74 L (4.30-5.90) m/uL Hgb 8.4 L (13.0-17.5) gm/dL Hct 29.2 L (39.0-53.0) % MCV 106.5 H (80.0-100.0) fL MCHC 28.7 L (31.0-37.0) g/dL RDW 19.4 H (11.5-15.5) % Plt Count 114 L (150-450) k/uL Neutrophils # 14.4 H (1.3-7.7) k/uL Lymphocytes # 0.3 L (1.0-4.8) k/uL Macrocytosis Marked A PT 44.8 H (9.0-12.0) sec INR 4.5 H (<1.2) ABG pO2 (83-108) mmHg ABG HCO3 (21-25) mmol/L ABG Total CO2 (19-24) mmol/L ABG O2 Saturation (94-97) % Chloride (98-107) mmol/L BUN (9-20) mg/dL Creatinine (0.66-1.25) mg/dL Glucose (74-99) mg/dL POC Glucose (mg/dL) 112 H (75-99) mg/dL Calcium (8.4-10.2) mg/dL Total Bilirubin (0.2-1.3) mg/dL Total Protein (6.3-8.2) g/dL Albumin (3.5-5.0) g/dL Crossmatch 08/24/21 08/24/21 08/24/21 Range/Units 03:55 04:00 05:09 WBC (3.8-10.6) k/uL RBC (4.30-5.90) m/uL Hgb (13.0-17.5) gm/dL Hct (39.0-53.0) % MCV (80.0-100.0) fL MCHC (31.0-37.0) g/dL RDW (11.5-15.5) % Plt Count (150-450) k/uL Neutrophils # (1.3-7.7) k/uL Lymphocytes # (1.0-4.8) k/uL Macrocytosis PT (9.0-12.0) sec INR (<1.2) ABG pO2 147 H (83-108) mmHg ABG HCO3 26 H (21-25) mmol/L ABG Total CO2 27 H (19-24) mmol/L ABG O2 Saturation 99.9 H (94-97) % Chloride 112 H (98-107) mmol/L BUN 84 H (9-20) mg/dL Creatinine 1.94 H (0.66-1.25) mg/dL Glucose 113 H (74-99) mg/dL POC Glucose (mg/dL) 118 H (75-99) mg/dL Calcium 6.7 L (8.4-10.2) mg/dL Total Bilirubin 1.6 H (0.2-1.3) mg/dL Total Protein 4.2 L (6.3-8.2) g/dL Albumin 1.9 L (3.5-5.0) g/dL Crossmatch 08/24/21 Range/Units 05:54 WBC (3.8-10.6) k/uL RBC (4.30-5.90) m/uL Hgb (13.0-17.5) gm/dL Hct (39.0-53.0) % MCV (80.0-100.0) fL MCHC (31.0-37.0) g/dL RDW (11.5-15.5) % Plt Count (150-450) k/uL Neutrophils # (1.3-7.7) k/uL Lymphocytes # (1.0-4.8) k/uL Macrocytosis PT (9.0-12.0) sec INR (<1.2) ABG pO2 (83-108) mmHg ABG HCO3 (21-25) mmol/L ABG Total CO2 (19-24) mmol/L ABG O2 Saturation (94-97) % Chloride (98-107) mmol/L BUN (9-20) mg/dL Creatinine (0.66-1.25) mg/dL Glucose (74-99) mg/dL POC Glucose (mg/dL) 121 H (75-99) mg/dL Calcium (8.4-10.2) mg/dL Total Bilirubin (0.2-1.3) mg/dL Total Protein (6.3-8.2) g/dL Albumin (3.5-5.0) g/dL Crossmatch Microbiology - Last 24 Hours (Table) 08/22/21 15:25 Blood Culture Gram Stain - Preliminary Blood Blood Culture - Preliminary Staphylococcus epidermidis 08/23/21 00:11 Gram Stain - Preliminary Sputum Sputum Culture - Preliminary 08/22/21 15:25 Blood Culture - Final Blood 08/22/21 16:50 Urine Culture - Final Urine,Catheterized
[2021-08-24 11:41] LABS: Glucose,Whole Blood 149 mg/dL (75-99)
[2021-08-24] MEDS: FOLIC ACID 1 MG TAB PO SCH (11:58)
[2021-08-24] MEDS: MULTIVITAMINS, THERA 1 EACH TAB PO SCH (11:58)
[2021-08-24] MEDS: METOCLOPRAMIDE 5 MG/ML 2 ML VIAL IVP SCH ×2 (11:58→18:27)
[2021-08-24] MEDS: THIAMINE 100 MG TAB PO SCH (11:58)
[2021-08-24] MEDS: CEFEPIME 1 GM in SODIUM CHLORIDE 0.9% 50 ML IVPB SCH (11:59)
--- NOTE | 2021-08-24 12:28 | P.PN ---
Subjective Progress Note Date: 08/24/21 This is a 81-year-old male who is post CABG and valve repair on 07/28/2021. He was seen because of acute kidney injury and chronic kidney disease. The day before Yesterday he was complaining of shortness of breath and subsequently was intubated and started on levo fed and vasopressin and large doses to maintain his blood pressure. He was on 100% FiO2 yesterday but this morning is down to 60% but remains on levo fed and epinephrine and was doses. Blood pressure is somewhat better. Urine output is 106 0 mL intake is 07/10/2007 Workup showed worsening of chest x-ray with suggestion of congestive heart failure and right lower lobe pneumonia worsening. Lactic acid was 2. White count went up to 13,800 A blood culture is showing staph epi Creatinine stays stable at 1.9 Objective - Vital Signs Vital signs: Vital Signs Temp 100.8 F H 08/24/21 12:00 Pulse 93 08/24/21 12:15 Resp 24 08/24/21 12:15 BP 110/73 08/24/21 06:00 Pulse Ox 94 L 08/24/21 12:15 Intake & Output 08/23/21 08/24/21 08/24/21 18:59 06:59 18:59 Intake Total 2117.226 1791.713 762.849 Output Total 610 450 395 Balance 6264.357 3588.713 367.849 Weight 68.7 kg Intake: IV 1458 936 390 Dextrose 5% in Water 1, 150 000 ml @ 150 mls/hr IV . Q7H40M PHIL with Sodium Bicarb (1 Meq/ml) 150 ml Rx#:[id number] Pressure Bag 33 36 15 Sodium Chloride 0.45% 1, 1275 900 375 000 ml @ 75 mls/hr IV . [id number] PHIL Rx#:[id number] Intake, IV Titration 639.226 645.713 292.849 Amount Norepinephrine 32 mg In 228.430 217.373 257.949 Sodium Chloride 0.9% 218 ml @ 0.9 MCG/KG/MIN 28. 983 mls/hr IV .Q8H38M PHIL Rx#:[id number] Norepinephrine 4 mg In 208.089 254 Sodium Chloride 0.9% 250 ml @ 0.1 MCG/KG/MIN 26. 175 mls/hr IV .Q9H43M PHIL Rx#:[id number] propofoL 1,000 mg In 202.707 174.340 34.9 Empty Bag 1 bag @ 5 MCG/ KG/MIN 2.061 mls/hr IV . Q24H PHIL Rx#:[id number] Tube Feeding 20 120 50 Other 90 30 Output: Drainage 100 Right Posterior 100 Urine 610 450 295 Other: Voiding Method Indwelling Catheter Indwelling Catheter Indwelling Catheter ABP, PAP, CO, CI - Last Documented Arterial Blood Pressure 100/61 Pulmonary Artery Pressure 35/28 Cardiac Output 5 Cardiac Index 2.7 On examination sedated Lungs are clear to auscultation on the ventilator at 60% FiO2. Heart sounds unremarkable no murmur rub gallop Normal sinus rhythm Abdomen soft nondistended Extremity exam was moderate edema Neurologically obtunded sedated - Labs CBC & Chem 7: 08/24/21 03:55 08/24/21 03:55 Labs: Abnormal Lab Results - Last 24 Hours (Table) 08/22/21 08/23/21 08/23/21 Range/Units 16:28 18:11 23:17 WBC (3.8-10.6) k/uL RBC (4.30-5.90) m/uL Hgb (13.0-17.5) gm/dL Hct (39.0-53.0) % MCV (80.0-100.0) fL MCHC (31.0-37.0) g/dL RDW (11.5-15.5) % Plt Count (150-450) k/uL Neutrophils # (1.3-7.7) k/uL Lymphocytes # (1.0-4.8) k/uL Macrocytosis PT (9.0-12.0) sec INR (<1.2) ABG pO2 (83-108) mmHg ABG HCO3 (21-25) mmol/L ABG Total CO2 (19-24) mmol/L ABG O2 Saturation (94-97) % Chloride (98-107) mmol/L BUN (9-20) mg/dL Creatinine (0.66-1.25) mg/dL Glucose (74-99) mg/dL POC Glucose (mg/dL) 102 H 112 H (75-99) mg/dL Calcium (8.4-10.2) mg/dL Total Bilirubin (0.2-1.3) mg/dL Total Protein (6.3-8.2) g/dL Albumin (3.5-5.0) g/dL Crossmatch See Detail 08/24/21 08/24/21 08/24/21 Range/Units 03:55 03:55 03:55 WBC 15.7 H (3.8-10.6) k/uL RBC 2.74 L (4.30-5.90) m/uL Hgb 8.4 L (13.0-17.5) gm/dL Hct 29.2 L (39.0-53.0) % MCV 106.5 H (80.0-100.0) fL MCHC 28.7 L (31.0-37.0) g/dL RDW 19.4 H (11.5-15.5) % Plt Count 114 L (150-450) k/uL Neutrophils # 14.4 H (1.3-7.7) k/uL Lymphocytes # 0.3 L (1.0-4.8) k/uL Macrocytosis Marked A PT 44.8 H (9.0-12.0) sec INR 4.5 H (<1.2) ABG pO2 (83-108) mmHg ABG HCO3 (21-25) mmol/L ABG Total CO2 (19-24) mmol/L ABG O2 Saturation (94-97) % Chloride 112 H (98-107) mmol/L BUN 84 H (9-20) mg/dL Creatinine 1.94 H (0.66-1.25) mg/dL Glucose 113 H (74-99) mg/dL POC Glucose (mg/dL) (75-99) mg/dL Calcium 6.7 L (8.4-10.2) mg/dL Total Bilirubin 1.6 H (0.2-1.3) mg/dL Total Protein 4.2 L (6.3-8.2) g/dL Albumin 1.9 L (3.5-5.0) g/dL Crossmatch 08/24/21 08/24/21 08/24/21 Range/Units 04:00 05:09 05:54 WBC (3.8-10.6) k/uL RBC (4.30-5.90) m/uL Hgb (13.0-17.5) gm/dL Hct (39.0-53.0) % MCV (80.0-100.0) fL MCHC (31.0-37.0) g/dL RDW (11.5-15.5) % Plt Count (150-450) k/uL Neutrophils # (1.3-7.7) k/uL Lymphocytes # (1.0-4.8) k/uL Macrocytosis PT (9.0-12.0) sec INR (<1.2) ABG pO2 147 H (83-108) mmHg ABG HCO3 26 H (21-25) mmol/L ABG Total CO2 27 H (19-24) mmol/L ABG O2 Saturation 99.9 H (94-97) % Chloride (98-107) mmol/L BUN (9-20) mg/dL Creatinine (0.66-1.25) mg/dL Glucose (74-99) mg/dL POC Glucose (mg/dL) 118 H 121 H (75-99) mg/dL Calcium (8.4-10.2) mg/dL Total Bilirubin (0.2-1.3) mg/dL Total Protein (6.3-8.2) g/dL Albumin (3.5-5.0) g/dL Crossmatch 08/24/21 Range/Units 11:39 WBC (3.8-10.6) k/uL RBC (4.30-5.90) m/uL Hgb (13.0-17.5) gm/dL Hct (39.0-53.0) % MCV (80.0-100.0) fL MCHC (31.0-37.0) g/dL RDW (11.5-15.5) % Plt Count (150-450) k/uL Neutrophils # (1.3-7.7) k/uL Lymphocytes # (1.0-4.8) k/uL Macrocytosis PT (9.0-12.0) sec INR (<1.2) ABG pO2 (83-108) mmHg ABG HCO3 (21-25) mmol/L ABG Total CO2 (19-24) mmol/L ABG O2 Saturation (94-97) % Chloride (98-107) mmol/L BUN (9-20) mg/dL Creatinine (0.66-1.25) mg/dL Glucose (74-99) mg/dL POC Glucose (mg/dL) 149 H (75-99) mg/dL Calcium (8.4-10.2) mg/dL Total Bilirubin (0.2-1.3) mg/dL Total Protein (6.3-8.2) g/dL Albumin (3.5-5.0) g/dL Crossmatch Microbiology - Last 24 Hours (Table) 08/22/21 15:25 Blood Culture Gram Stain - Preliminary Blood Blood Culture - Preliminary Staphylococcus epidermidis 08/23/21 00:11 Gram Stain - Preliminary Sputum Sputum Culture - Preliminary 08/22/21 15:25 Blood Culture - Final Blood 08/22/21 16:50 Urine Culture - Final Urine,Catheterized Assessment and Plan Assessment: Impression 1. Acute kidney injury secondary to sepsis. Staph epi growing in blood culture. 2. Abrupt worsening with respiratory failure on 100% FiO2 and in shock with large doses of vasopressin and Levophed keeping his pressure up in the 90s 200s. Creatinine improved though surprisingly from 2.48-1.96 with urine output of thousand cc 2. 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 Echocardiogram last time done shows pulmonary hypertension. repeat echocardiogram pending Recommendation 1. Continue the same. 2. Patient has poor prognosis given his hemodynamic status. 3. If need be he can be diuresed to see if his respiratory status will improve. Of course this may drop his blood pressure.
[2021-08-24 18:17] LABS: Glucose,Whole Blood 159 mg/dL (75-99)
--- NOTE | 2021-08-24 18:42 | PN ---
PROGRESS NOTE DATE OF SERVICE: This 81-year-old gentleman admitted after bowel surgery has taken a turn for the worse during the week and the patient had acute respiratory failure. The patient was started on broad-spectrum IV antibiotics and mechanical ventilation. The patient is sedated. Patient is on pressor support. The patient also had renal failure. Gram-positive cocci was noted in the sputum culture. Past medical history reviewed. Review of systems could not be taken. CURRENT MEDICATIONS: Reviewed. They include DuoNeb q.i.d. Doses and other medications were also noted. PHYSICAL EXAMINATION: Patient is mechanically ventilated and sedated. Vent settings are noted. The patient is on 60% FIO2, 8 of PEEP. Pulse is 101, blood pressure 110/47, respiration 24. HEENT: Conjunctivae normal. NECK: No jugular venous distention. CARDIOVASCULAR: S1, S2 muffled. RESPIRATION: Breath sounds diminished at the bases. A few scattered rhonchi and crackles. ABDOMEN: Soft, nontender. LEGS: No edema. No swelling. NERVOUS SYSTEM: No focal deficit. LABS: WBC 15.7, hemoglobin is 8.7. INR is 4.5. Other labs are noted. ASSESSMENT: 1. 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 2. Chronic obstructive pulmonary disease, acute exacerbation, with acute hypoxic respiratory failure, on mechanical ventilation. 3. Right pleural effusion. 4. Possible right-sided pneumonia and consolidation. 5. 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 6. Renal insufficiency. 7. Klebsiella pneumoniae. 8. Hyperglycemia. 9. Gait dysfunction. 10.Status post PEG tube placement and nutritional support. RECOMMENDATIONS AND DISCUSSION: I recommend to continue current medications, continue with the monitoring, symptomatic treatment. Continue with mechanical ventilation. Continue the broad-spectrum IV antibiotics. Follow the cultures and final ID of the organisms. Prognosis guarded. Vent management per Dr. Salinas. Further recommendations to follow. Discussed with staff. MMODL / IJN: [id number] /
[2021-08-24] MEDS: CALCIUM ACETATE 667 MG TAB PO SCH (20:13)
[2021-08-24] MEDS: ATORVASTATIN 40 MG TAB PO SCH (20:13)
[2021-08-25] MEDS: CEFEPIME 1 GM in SODIUM CHLORIDE 0.9% 50 ML IVPB SCH ×3 (00:11→23:54)
[2021-08-25] MEDS: METOCLOPRAMIDE 5 MG/ML 2 ML VIAL IVP SCH ×4 (00:11→17:04)
[2021-08-25 00:20] LABS: Glucose,Whole Blood 165 mg/dL (75-99)
[2021-08-25] MEDS: INSULIN ASPART (NovoLOG) 100 UNIT/ML VIAL SQ SCH ×5 (00:30→23:54)
[2021-08-25] MEDS: SODIUM CHLORIDE 0.45% 1,000 ML IV SCH ×2 (01:01→14:21)
[2021-08-25] MEDS: NOREPINEPHRINE 32 MG in SODIUM CHLORIDE 0.9% 218 ML IV SCH ×3 (02:00→22:17)
[2021-08-25] MEDS: IPRATROPIUM-ALBUTEROL 3 ML NEB INHALATION SCH ×6 (02:50→23:50)
[2021-08-25 03:53] LABS: Glucose,Whole Blood 154 mg/dL (75-99)
[2021-08-25 04:24] LABS: Ionized Calcium 4.7 mg/dL (4.5-5.3)
[2021-08-25 04:32] LABS: ALT 14 U/L (4-49); AST 35 U/L (17-59); African American GFR (CKD) 34 (>60 ml/min/1.73 sqM); Albumin 1.9 g/dL (3.5-5.0); Alkaline Phosphatase 117 U/L (38-126); Anion Gap 5 mmol/L; Blood Urea Nitrogen 82 mg/dL (9-20); Carbon Dioxide 25 mmol/L (22-30); Chloride 113 mmol/L (98-107); Glucose 141 mg/dL (74-99); Magnesium 2.2 mg/dL (1.6-2.3); Non-African American GFR(CKD) 30 (>60 ml/min/1.73 sqM); Sodium 143 mmol/L (137-145); Total Bilirubin 1.5 mg/dL (0.2-1.3); Total Protein 4.2 g/dL (6.3-8.2)
[2021-08-25 04:37] LABS: INR 3.3 (<1.2); Prothrombin Time 32.7 sec (9.0-12.0)
[2021-08-25 04:55] LABS: Anisocytosis Slight; Basophils % (A) 0 %; Eosinophils # (A) 0.2 k/uL (0-0.7); Eosinophils % (A) 1 %; HCT 28.5 % (39.0-53.0); HGB 8.4 gm/dL (13.0-17.5); Hypochromasia Marked; Lymphocytes # (A) 0.4 k/uL (1.0-4.8); Lymphocytes % (A) 2 %; MCH 31.1 pg (25.0-35.0); MCHC 29.4 g/dL (31.0-37.0); MCV 105.9 fL (80.0-100.0); Macrocytosis Marked; Mean Platelet Volume 9.6; Monocytes # (A) 0.8 k/uL (0-1.0); Monocytes % (A) 4 %; Neutrophils # (A) 18.7 k/uL (1.3-7.7); Neutrophils % (A) 92 %; Platelet Count 101 k/uL (150-450); Poikilocytosis Slight; RBC 2.69 m/uL (4.30-5.90); RDW 19.4 % (11.5-15.5); WBC 20.2 k/uL (3.8-10.6)
[2021-08-25] MEDS: SODIUM CHLORIDE 0.9% 50 ML with VASOPRESSIN 20 UNIT IVPB SCH ×6 (05:08→19:30)
[2021-08-25 05:25] LABS: ABG Base Excess -0.6 mmol/L; ABG HCO3 25 mmol/L (21-25); ABG Oxygen Saturation 96.8 % (94-97); ABG PCO2 43 mmHg (35-45); ABG PH 7.37 (7.35-7.45); ABG PO2 84 mmHg (83-108); ABG TCO2 26 mmol/L (19-24)
[2021-08-25] MEDS ORDERED: CHLORHEXIDINE GLUCONATE 15 ML CUP MUCOUS MEM ONE (08:00)
[2021-08-25] MEDS ORDERED: MIDODRINE 5 MG TAB ONE (08:00)
[2021-08-25] MEDS ORDERED: ASPIRIN 81 MG ONE (08:00)
[2021-08-25] MEDS ORDERED: METOCLOPRAMIDE 5 MG/ML 2 ML VIAL ONE (08:00)
[2021-08-25] MEDS ORDERED: FERROUS SULFATE 325 MG TAB PO ONE (08:00)
[2021-08-25] MEDS ORDERED: ASCORBIC ACID 500 MG TAB ONE (08:00)
--- NOTE | 2021-08-25 10:33 | CA ---
Transthoracic Echo Report Name: Von Mascorro Age: 81 Gender: M : 1940 Exam Date: 08/25/2021 08:57 Exam Location: [facility] Ht (in): 67 Wt (lb): 151 Ordering Physician: Henry Collins Attending/Referring Phys: Procedure Manager Mariann Lee RDCS Procedure CPT: Indications: mitral regurgitation Technical Quality: Good Contrast 1: Total Dose (mL): Contrast 2: Total Dose (mL): MEASUREMENTS (Male / Female) Normal Values 2D ECHO LV Diastolic Diameter PLAX 4.2 cm 4.2 - 5.9 / 3.9 - 5.3 cm LV Systolic Diameter PLAX 3.4 cm IVS Diastolic Thickness 1.2 cm 0.6 - 1.0 / 0.6 - 0.9 cm LVPW Diastolic Thickness 1.5 cm 0.6 - 1.0 / 0.6 - 0.9 cm LV Relative Wall Thickness 0.6 RV Internal Dim ED PLAX 4.2 cm LA Systolic Diameter LX 4.8 cm 3.0 - 4.0 / 2.7 - 3.8 cm M-MODE Aortic Root Diameter MM 3.0 cm LA Systolic Diameter MM 5.4 cm LA Ao Ratio MM 1.8 MV E Point Septal Separation 0.2 cm AV Cusp Separation MM 1.4 cm DOPPLER AV Peak Velocity 191.6 cm/s AV Peak Gradient 14.7 mmHg AV Mean Velocity 127.6 cm/s AV Mean Gradient 7.4 mmHg AV Velocity Time Integral 28.5 cm MV Peak Velocity 186.4 cm/s MV Peak Gradient 13.9 mmHg MV Mean Velocity 78.1 cm/s MV Mean Gradient 3.1 mmHg MV Velocity Time Integral 51.2 cm MV Area PHT 3.0 cm Mitral E Point Velocity 118.1 cm/s Mitral A Point Velocity 88.9 cm/s Mitral E to A Ratio 1.3 MV Deceleration Time 251.9 ms TR Peak Velocity 432.9 cm/s TR Peak Gradient 75.0 mmHg Right Ventricular Systolic Press 78.4 mmHg FINDINGS Left Ventricle Mildly increased septal wall thickness. EF 45% Right Ventricle There is right ventricular enlargement consistent with right ventricular volume and pressure overload. Right Atrium Normal right atrial size. Left Atrium Moderately increased left atrial diameter. Mitral Valve Mild periprosthetic regurgitation of the prosthetic mitral valve. Aortic Valve Trileaflet aortic valve. Tricuspid Valve Prosthetic tricuspid valve regurgitation. Severe tricuspid regurgitation, with increased RVSP. Pulmonic Valve Pulmonic valve not well visualized. Pericardium Normal pericardium. Aorta Aortic root and CONCLUSIONS Mild to mod decrease in LV Function. Severe Pul HTN and TR Previewed by: Dr. Radha Diego MD (Electronically Signed) Final Date: 25 August 2021 10:32
[2021-08-25 10:51] LABS: Glucose,Whole Blood 148 mg/dL (75-99)
[2021-08-25 11:28] LABS: Glucose,Whole Blood 177 mg/dL (75-99)
--- NOTE | 2021-08-25 11:29 | P.PN ---
Subjective Progress Note Date: 08/25/21 CHIEF COMPLAINT: Malnutrition HISTORY OF PRESENT ILLNESS: Patient is status post EGD with PEG tube placementon 08/20/21. Patient is tolerating tube feeds. Tube feeds are at 20ml/hr. Patient was intubated on Wednesday. Tube Feedings to be started today. He has positive blood culture and sputum culture. temp 100.8 yesterday afternoon. WBC 20.2 PHYSICAL EXAM: VITAL SIGNS: Reviewed. GENERAL: Well-developed in no acute distress. HEENT: No sclera icterus. Extraocular movements grossly intact. Moist buccal mucosa. Head is atraumatic, normocephalic. ABDOMEN: Soft. Nondistended. Nontender. PEG tube site clean dry and intact NEUROLOGIC: Alert and oriented. Cranial nerves II through XII grossly intact. ASSESSMENT: 1. Severe protein calorie malnutrition with poor oral intake 2. Generalized weakness 3. Status post mitral valve replacement, tricuspid valve repair and one vessel CABG with Dr. Collado PLAN: -Continue ICU management -Continue supportive care -continue tube feeds Physician Daycare Manager note has been reviewed by physician. Signing provider agrees with the documented findings, assessment, and plan of care. I have personally seen and examined the patient, reviewed the DERMATOLOGIST MANAGING PARTNER /PAs history, exam and MDM and agree with the assessment and plan as written. Based on total visit time, I have performed more than 50% of the visit. As above: Patient remains on the ventilator after being placed on the vent on Wednesday. Tolerating tube feeds at 20 mL per hour. Generalized edema with edema of the abdominal wall noted. Bolster loosened by 0.5 centimeter. Continue supportive care and gradually advance tube feeds as tolerated. Will follow. Objective - Vital Signs Vital signs: Vital Signs Temp 97.6 F 08/25/21 11:11 Pulse 78 08/25/21 11:11 Resp 26 H 08/25/21 11:11 BP 136/71 08/25/21 11:11 Pulse Ox 100 08/25/21 11:11 Intake & Output 08/24/21 08/25/21 08/25/21 18:59 06:59 18:59 Intake Total 8794.954 2734.873 Output Total 845 585 Balance 985.230 738.873 Intake: IV 936 780 Pressure Bag 36 30 Sodium Chloride 0.45% 1, 900 750 000 ml @ 75 mls/hr IV . [id number] PHIL Rx#:[id number] Intake, IV Titration 624.230 443.873 Amount Norepinephrine 32 mg In 489.330 269.375 Sodium Chloride 0.9% 218 ml @ 0.9 MCG/KG/MIN 28. 983 mls/hr IV .Q8H38M PHIL Rx#:[id number] propofoL 1,000 mg In 134.9 174.498 Empty Bag 1 bag @ 5 MCG/ KG/MIN 2.061 mls/hr IV . Q24H PHIL Rx#:[id number] Tube Feeding 120 100 Other 150 Output: Drainage 100 Right Posterior 100 Urine 745 585 Other: Voiding Method Indwelling Catheter Indwelling Catheter ABP, PAP, CO, CI - Last Documented Arterial Blood Pressure 126/45 Pulmonary Artery Pressure 35/28 Cardiac Output 5 Cardiac Index 2.7 - Labs CBC & Chem 7: 08/25/21 03:45 08/25/21 03:45 Labs: Abnormal Lab Results - Last 24 Hours (Table) 08/24/21 08/24/21 08/25/21 Range/Units 11:39 18:15 00:17 WBC (3.8-10.6) k/uL RBC (4.30-5.90) m/uL Hgb (13.0-17.5) gm/dL Hct (39.0-53.0) % MCV (80.0-100.0) fL MCHC (31.0-37.0) g/dL RDW (11.5-15.5) % Plt Count (150-450) k/uL Neutrophils # (1.3-7.7) k/uL Lymphocytes # (1.0-4.8) k/uL Macrocytosis PT (9.0-12.0) sec INR (<1.2) Chloride (98-107) mmol/L BUN (9-20) mg/dL Creatinine (0.66-1.25) mg/dL Glucose (74-99) mg/dL POC Glucose (mg/dL) 149 H 159 H 165 H (75-99) mg/dL Calcium (8.4-10.2) mg/dL Total Bilirubin (0.2-1.3) mg/dL Total Protein (6.3-8.2) g/dL Albumin (3.5-5.0) g/dL 08/25/21 08/25/21 08/25/21 Range/Units 03:45 03:45 03:45 WBC 20.2 H (3.8-10.6) k/uL RBC 2.69 L (4.30-5.90) m/uL Hgb 8.4 L (13.0-17.5) gm/dL Hct 28.5 L (39.0-53.0) % MCV 105.9 H (80.0-100.0) fL MCHC 29.4 L (31.0-37.0) g/dL RDW 19.4 H (11.5-15.5) % Plt Count 101 L (150-450) k/uL Neutrophils # 18.7 H (1.3-7.7) k/uL Lymphocytes # 0.4 L (1.0-4.8) k/uL Macrocytosis Marked A PT 32.7 H (9.0-12.0) sec INR 3.3 H (<1.2) Chloride 113 H (98-107) mmol/L BUN 82 H (9-20) mg/dL Creatinine 2.05 H (0.66-1.25) mg/dL Glucose 141 H (74-99) mg/dL POC Glucose (mg/dL) (75-99) mg/dL Calcium 7.0 L (8.4-10.2) mg/dL Total Bilirubin 1.5 H (0.2-1.3) mg/dL Total Protein 4.2 L (6.3-8.2) g/dL Albumin 1.9 L (3.5-5.0) g/dL 08/25/21 08/25/21 Range/Units 03:49 05:39 WBC (3.8-10.6) k/uL RBC (4.30-5.90) m/uL Hgb (13.0-17.5) gm/dL Hct (39.0-53.0) % MCV (80.0-100.0) fL MCHC (31.0-37.0) g/dL RDW (11.5-15.5) % Plt Count (150-450) k/uL Neutrophils # (1.3-7.7) k/uL Lymphocytes # (1.0-4.8) k/uL Macrocytosis PT (9.0-12.0) sec INR (<1.2) Chloride (98-107) mmol/L BUN (9-20) mg/dL Creatinine (0.66-1.25) mg/dL Glucose (74-99) mg/dL POC Glucose (mg/dL) 154 H 148 H (75-99) mg/dL Calcium (8.4-10.2) mg/dL Total Bilirubin (0.2-1.3) mg/dL Total Protein (6.3-8.2) g/dL Albumin (3.5-5.0) g/dL Microbiology - Last 24 Hours (Table) 08/23/21 00:11 Gram Stain - Final Sputum Sputum Culture - Final 08/22/21 15:25 Blood Culture Gram Stain - Preliminary Blood Blood Culture - Preliminary Staphylococcus epidermidis
[2021-08-25] MEDS: MIDODRINE 5 MG TAB PO SCH ×3 (11:44→16:31)
[2021-08-25] MEDS: FERROUS SULFATE 325 MG TAB PO SCH (11:45)
[2021-08-25] MEDS: PANTOPRAZOLE 40 MG/10 ML VIAL IVP SCH ×2 (11:45→20:13)
[2021-08-25] MEDS: ASPIRIN 81 MG PO SCH (11:45)
[2021-08-25] MEDS: CHLORHEXIDINE GLUCONATE 15 ML CUP MUCOUS MEM SCH ×2 (11:45→20:13)
[2021-08-25] MEDS: ASCORBIC ACID 500 MG TAB PO SCH (11:45)
[2021-08-25] MEDS: VANCOMYCIN 1,250 MG in SODIUM CHLORIDE 0.9% 250 ML IVPB SCH (11:46)
--- NOTE | 2021-08-25 11:49 | P.PN ---
Subjective Progress Note Date: 08/25/2108/25 2021, I'm seeing the patient for a follow-up. The patient has been reintubated as of 07/22/2021 for hypoxemic respiratory failure,Hypotension, sepsis. This morning, the patient remains intubated on a mechanical ventilator. This morning, the patient is in a propofol which is running at 40 mcg/kg per minute and the patient has been adequately sedated. IV fluids are in the form of half-normal saline at the rate of 75 mL's an hour. The patient is on a combination of pressors and the patient is currently on vasopressin physiologic dose of 0.04 units per minute and the patient is also on levo fed at 0.6 microvascular kilogram per minute. Urine output is quite low at this point in time. The patient is on a mechanical ventilator on assist control mode at the rate of 24 with a tidal volume of 450, and the rate of 24 with a FiO2 of 60% with a PEEP of 8. Morning blood gases showed a tortuous of 7.36 with a pCO2 of 43 and pO2 of 84. The patient has a Pleurx catheter on the right side of the total amount of drainage over the past 24 hours has been 50 mL and this was drained by the cardiothoracic team. The last drainage prior was on 07/22/2021 where the patient had total of 250 mL of drainage from the right side of Pleurx catheter. Left sided chest tube has been removed. The patient's cardiac rhythm is paced although the patient has a [id number] atrial fibrillation. The chest x-ray from today is showing consolidation bilaterally more so on the right. There is also improvement in the right-sided consolidation compared to yesterday. There is cardiomegaly and there is evidence of bilateral pleural effusion. In terms of cultures, the patient grew Klebsiella in his sputum on earlier sputum culture. Subsequently, the cultures revealedStaph epidermidis in the blood and the patient is currently on a combination of cefepime and Vanco mycin. In terms of blood work from today, the patient has a white cell count of 20.2 with hemoglobin of 8.4 and a platelet count of 101 which is slightly lower compared to yesterday. INR today is at 3.3. As for the electrolytes, the p atient's creatinine is at 2.05 which is stable compared to yesterday with a BUN of 82 and the sodium level of 143. Potassium level is at 4.0. LFTs are essentially within normal limits. The patient is on tube feeds and the patient is receiving Nepro at the rate of 20 mL an hour. Nephrology is on the case. Cardiac thoracic surgery is on the case. The patient is postop day #28 Objective - Vital Signs Vital signs: Vital Signs Temp 97.6 F 08/25/21 11:11 Pulse 78 08/25/21 11:11 Resp 26 H 08/25/21 11:11 BP 136/71 08/25/21 11:11 Pulse Ox 100 08/25/21 11:11 Intake & Output 08/24/21 08/25/21 08/25/21 18:59 06:59 18:59 Intake Total 2285.413 1094.873 715 Output Total 845 585 305 Balance 985.230 738.873 410 Intake: IV 936 780 365 Pressure Bag 36 30 15 Sodium Chloride 0.45% 1, 900 750 350 000 ml @ 75 mls/hr IV . [id number] [facility] Rx#:[id number] Intake, IV Titration 624.230 443.873 250 Amount Norepinephrine 32 mg In 489.330 269.375 Sodium Chloride 0.9% 218 ml @ 0.9 MCG/KG/MIN 28. 983 mls/hr IV .[id number] [facility] Rx#:[id number] Vancomycin 1,250 mg In 250 Sodium Chloride 0.9% 250 ml @ 125 mls/hr IVPB Q24H [facility] Rx#:[id number] propofoL 1,000 mg In 134.9 174.498 Empty Bag 1 bag @ 5 MCG/ KG/MIN 2.061 mls/hr IV . Q24H [facility] Rx#:[id number] Tube Feeding 120 100 100 Other 150 Output: Drainage 100 Right Posterior 100 Urine 745 585 305 Other: Voiding Method Indwelling Catheter Indwelling Catheter ABP, PAP, CO, CI - Last Documented Arterial Blood Pressure 126/45 Pulmonary Artery Pressure 35/28 Cardiac Output 5 Cardiac Index 2.7 - Exam GENERAL EXAM: Intubated, sedated frail 81-year-old male patient. On the mechanical ventilator sedated, calm and comfortable, not in acute distress. HEAD: Normocephalic. EYES: Sluggish reaction of pupils, equal size. NOSE: Clear with pink turbinates. THROAT: No erythema or exudates. NECK: No masses, no JVD. Left IJ triple-lumen catheter placed CHEST: No chest wall deformity. Sternal incision clean dry well approximated. Right-sided Pleurx catheter in place.breath sounds are diminished bilaterally LUNGS: Equal air entry with bilateral scattered rhonchi. CVS: S1 and S2 normal with no audible murmur, paced irregular rhythm. ABDOMEN: Distended, tympanic abdomen. Hypoactive. PEG tube in place. SPINE: No scoliosis or deformity SKIN: No rashes CENTRAL NERVOUS SYSTEM: No focal deficits, tone is normal in all 4 extremities. EXTREMITIES: There is significant amount of peripheral edema in lower activities bilaterally and the patient has extensive scrotal edema. No clubbing, no cyanosis. Peripheral pulses are intact. - Labs CBC & Chem 7: 08/25/21 03:45 08/25/21 03:45 Labs: Abnormal Lab Results - Last 24 Hours (Table) 08/24/21 08/24/21 08/25/21 Range/Units 11:39 18:15 00:17 WBC (3.8-10.6) k/uL RBC (4.30-5.90) m/uL Hgb (13.0-17.5) gm/dL Hct (39.0-53.0) % MCV (80.0-100.0) fL MCHC (31.0-37.0) g/dL RDW (11.5-15.5) % Plt Count (150-450) k/uL Neutrophils # (1.3-7.7) k/uL Lymphocytes # (1.0-4.8) k/uL Macrocytosis PT (9.0-12.0) sec INR (<1.2) Chloride (98-107) mmol/L BUN (9-20) mg/dL Creatinine (0.66-1.25) mg/dL Glucose (74-99) mg/dL POC Glucose (mg/dL) 149 H 159 H 165 H (75-99) mg/dL Calcium (8.4-10.2) mg/dL Total Bilirubin (0.2-1.3) mg/dL Total Protein (6.3-8.2) g/dL Albumin (3.5-5.0) g/dL 0408/25/21 08/25/21 Range/Units 03:45 03:45 03:45 WBC 20.2 H (3.8-10.6) k/uL RBC 2.69 L (4.30-5.90) m/uL Hgb 8.4 L (13.0-17.5) gm/dL Hct 28.5 L (39.0-53.0) % MCV 105.9 H (80.0-100.0) fL MCHC 29.4 L (31.0-37.0) g/dL RDW 19.4 H (11.5-15.5) % Plt Count 101 L (150-450) k/uL Neutrophils # 18.7 H (1.3-7.7) k/uL Lymphocytes # 0.4 L (1.0-4.8) k/uL Macrocytosis Marked A PT 32.7 H (9.0-12.0) sec INR 3.3 H (<1.2) Chloride 113 H (98-107) mmol/L BUN 82 H (9-20) mg/dL Creatinine 2.05 H (0.66-1.25) mg/dL Glucose 141 H (74-99) mg/dL POC Glucose (mg/dL) (75-99) mg/dL Calcium 7.0 L (8.4-10.2) mg/dL Total Bilirubin 1.5 H (0.2-1.3) mg/dL Total Protein 4.2 L (6.3-8.2) g/dL Albumin 1.9 L (3.5-5.0) g/dL 08/25/21 08/25/21 08/25/21 Range/Units 03:49 05:39 11:27 WBC (3.8-10.6) k/uL RBC (4.30-5.90) m/uL Hgb (13.0-17.5) gm/dL Hct (39.0-53.0) % MCV (80.0-100.0) fL MCHC (31.0-37.0) g/dL RDW (11.5-15.5) % Plt Count (150-450) k/uL Neutrophils # (1.3-7.7) k/uL Lymphocytes # (1.0-4.8) k/uL Macrocytosis PT (9.0-12.0) sec INR (<1.2) Chloride (98-107) mmol/L BUN (9-20) mg/dL Creatinine (0.66-1.25) mg/dL Glucose (74-99) mg/dL POC Glucose (mg/dL) 154 H 148 H 177 H (75-99) mg/dL Calcium (8.4-10.2) mg/dL Total Bilirubin (0.2-1.3) mg/dL Total Protein (6.3-8.2) g/dL Albumin (3.5-5.0) g/dL Microbiology - Last 24 Hours (Table) 08/23/21 00:11 Gram Stain - Final Sputum Sputum Culture - Final 08/22/21 15:25 Blood Culture Gram Stain - Preliminary Blood Blood Culture - Preliminary Staphylococcus epidermidis Assessment and Plan Plan: Mitral valve regurgitation, status post mitral valve replacement, tricuspid valve regurgitation, status post tricuspid valve repair, coronary artery disease, status post 1 vessel CABG. On 08/22/2021 the patient developed significant hypotension and subsequently re-required intubation mechanical ventilatory support. and the patient was reintubated on 08/22/2021 Septic shock/hypotension, currently on a combination of pressors including vasopressin and norepinephrine Continued right-sided pleural effusion, Pleurx catheter placed, the patient is receiving periodic drainage, less drainage from the Pleurx catheter was done on 08/24/2021 enteral feeding for nutritional support and the patient currently has a PEG tube placed on 08/20/2021 Benign essential hypertension Chronic atrial fibrillation History of sick sinus syndrome and previous pacemaker placement in 2017 Chronic systolic congestive heart failure Atrial septal defect post closure Acute on chronic renal failure, baseline creatinine 1.6-1.7. Obstructive sleep apnea syndrome Chronic and recurrent right-sided pleural effusion requiring multiple thoracentesis procedures and now he continues to have a Pleurx catheter in place. Postoperative acute blood loss anemia and thrombocytopenia, expected Positive sputum for Klebsiella pneumonia, suspect Klebsiella pneumonia tracheobronchitis, completed cefepime staph epidermidis in the blood, likely a contaminant Leukocytosis Plan: Continue ventilator support. Drop the FiO2 down to 50% and drop the PEEP down to 6 Review the chest x-ray in the morning The blood gases in the morning reduce the sedation Continue enteral feeding for nutritional support Continue cefepime and vancomycin Wean off norepinephrine infusion slowly to maintain a mean artery pressure above 65 Monitor renal function and electrolytes Repeat echocardiogram shows an ejection fraction of 45% Monitor PT/INR and INR today is at 3.3 Condition is obvious the critical. We'll continue to follow make further recommendations based on her progress. DO NOT RESUSCITATE/DO NOT INTUBATE CODE STATUS We will continue to follow, is a critically care evaluation that was done more than 30 minutes Condition is still critically now comes for baseline above-mentioned comorbidities. Time with Patient: Greater than 30
[2021-08-25] MEDS: MULTIVITAMINS, THERA 1 EACH TAB PO SCH (11:55)
[2021-08-25] MEDS: FOLIC ACID 1 MG TAB PO SCH (11:55)
[2021-08-25] MEDS: DARBEPOETIN ALFA 60 MCG/0.3 ML SYRINGE SQ SCH (11:55)
[2021-08-25] MEDS: THIAMINE 100 MG TAB PO SCH (11:56)
--- NOTE | 2021-08-25 12:08 | P.PN ---
Subjective Patient is seen in follow-up for acute kidney injury on chronic kidney disease. Renal function fairly stable. Urine output 50-70 mL per hour. Intubated. On Levophed and vasopressin. Quite edematous. Receiving tube feeds. Vital signs are stable. On Levophed and vasopressin. General: The patient appeared well nourished and normally developed. HEENT: Head exam is unremarkable. Neck is without jugular venous distension. LUNGS: Breath sounds decreased. HEART: Rate and Rhythm are regular. ABDOMEN: Soft, no distention. EXTREMITITES: 2+ edema. Scrotal edema noted. Objective - Vital Signs Vital signs: Vital Signs Temp 97.6 F 08/25/21 11:11 Pulse 78 08/25/21 11:11 Resp 26 H 08/25/21 11:11 BP 136/71 08/25/21 11:11 Pulse Ox 100 08/25/21 11:11 Intake & Output 08/24/21 08/25/21 08/25/21 18:59 06:59 18:59 Intake Total 2148.459 1233.873 860.477 Output Total 845 585 305 Balance 985.230 738.873 555.477 Intake: IV 936 780 365 Pressure Bag 36 30 15 Sodium Chloride 0.45% 1, 900 750 350 000 ml @ 75 mls/hr IV . [id number] [facility] Rx#:[id number] Intake, IV Titration 624.230 443.873 395.477 Amount Norepinephrine 32 mg In 489.330 269.375 145.477 Sodium Chloride 0.9% 218 ml @ 0.9 MCG/KG/MIN 28. 983 mls/hr IV .Q8H38M [facility] Rx#:[id number] Vancomycin 1,250 mg In 250 Sodium Chloride 0.9% 250 ml @ 125 mls/hr IVPB Q24H [facility] Rx#:[id number] propofoL 1,000 mg In 134.9 174.498 Empty Bag 1 bag @ 5 MCG/ KG/MIN 2.061 mls/hr IV . Q24H [facility] Rx#:[id number] Tube Feeding 120 100 100 Other 150 Output: Drainage 100 Right Posterior 100 Urine 745 585 305 Other: Voiding Method Indwelling Catheter Indwelling Catheter ABP, PAP, CO, CI - Last Documented Arterial Blood Pressure 126/45 Pulmonary Artery Pressure 35/28 Cardiac Output 5 Cardiac Index 2.7 - Labs CBC & Chem 7: 08/25/21 03:45 08/25/21 03:45 Labs: Abnormal Lab Results - Last 24 Hours (Table) 08/24/21 08/25/21 08/25/21 Range/Units 18:15 00:17 03:45 WBC 20.2 H (3.8-10.6) k/uL RBC 2.69 L (4.30-5.90) m/uL Hgb 8.4 L (13.0-17.5) gm/dL Hct 28.5 L (39.0-53.0) % MCV 105.9 H (80.0-100.0) fL MCHC 29.4 L (31.0-37.0) g/dL RDW 19.4 H (11.5-15.5) % Plt Count 101 L (150-450) k/uL Neutrophils # 18.7 H (1.3-7.7) k/uL Lymphocytes # 0.4 L (1.0-4.8) k/uL Macrocytosis Marked A PT (9.0-12.0) sec INR (<1.2) Chloride (98-107) mmol/L BUN (9-20) mg/dL Creatinine (0.66-1.25) mg/dL Glucose (74-99) mg/dL POC Glucose (mg/dL) 159 H 165 H (75-99) mg/dL Calcium (8.4-10.2) mg/dL Total Bilirubin (0.2-1.3) mg/dL Total Protein (6.3-8.2) g/dL Albumin (3.5-5.0) g/dL 08/25/21 08/25/21 08/25/21 Range/Units 03:45 03:45 03:49 WBC (3.8-10.6) k/uL RBC (4.30-5.90) m/uL Hgb (13.0-17.5) gm/dL Hct (39.0-53.0) % MCV (80.0-100.0) fL MCHC (31.0-37.0) g/dL RDW (11.5-15.5) % Plt Count (150-450) k/uL Neutrophils # (1.3-7.7) k/uL Lymphocytes # (1.0-4.8) k/uL Macrocytosis PT 32.7 H (9.0-12.0) sec INR 3.3 H (<1.2) Chloride 113 H (98-107) mmol/L BUN 82 H (9-20) mg/dL Creatinine 2.05 H (0.66-1.25) mg/dL Glucose 141 H (74-99) mg/dL POC Glucose (mg/dL) 154 H (75-99) mg/dL Calcium 7.0 L (8.4-10.2) mg/dL Total Bilirubin 1.5 H (0.2-1.3) mg/dL Total Protein 4.2 L (6.3-8.2) g/dL Albumin 1.9 L (3.5-5.0) g/dL 08/25/21 08/25/21 Range/Units 05:39 11:27 WBC (3.8-10.6) k/uL RBC (4.30-5.90) m/uL Hgb (13.0-17.5) gm/dL Hct (39.0-53.0) % MCV (80.0-100.0) fL MCHC (31.0-37.0) g/dL RDW (11.5-15.5) % Plt Count (150-450) k/uL Neutrophils # (1.3-7.7) k/uL Lymphocytes # (1.0-4.8) k/uL Macrocytosis PT (9.0-12.0) sec INR (<1.2) Chloride (98-107) mmol/L BUN (9-20) mg/dL Creatinine (0.66-1.25) mg/dL Glucose (74-99) mg/dL POC Glucose (mg/dL) 148 H 177 H (75-99) mg/dL Calcium (8.4-10.2) mg/dL Total Bilirubin (0.2-1.3) mg/dL Total Protein (6.3-8.2) g/dL Albumin (3.5-5.0) g/dL Microbiology - Last 24 Hours (Table) 08/23/21 00:11 Gram Stain - Final Sputum Sputum Culture - Final 08/22/21 15:25 Blood Culture Gram Stain - Preliminary Blood Blood Culture - Preliminary Staphylococcus epidermidis Assessment and Plan Plan: Assessment: 1. Acute kidney injury secondary to ATN secondary to septic shock. Renal fun ction fairly stable. Nonoliguric. 2. Chronic kidney disease stage IIIB with baseline creatinine near 1.6-1.7. 3. Coronary artery disease status post CABG with mitral valve replacement and tricuspid valve repair. 4. Acute blood loss anemia postoperatively status post blood transfusion and IV iron. On Aranesp. No active bleeding. 5. Volume overload. Status post right Pleurx catheter placed 06/16/2021. 6. Chronic kidney disease mineral bone disease maintained on PhosLo. Phosphorus 5.5 dated 08/09/2021; 4.7 dated 08/25/2021. 7. Metabolic acidosis secondary to acute kidney injury. Improved. 8. Septic shock secondary to pneumonia. Sputum culture positive for Klebsiella. Blood culture positive for staph epi. On antibiotics and vasopressor support. Plan: Hep-Lock IV fluids. Maintain tube feeds. Bumex 1 mg IV today. Encouraged oral intake. Continue to monitor renal function and urine output. Wean FiO2 and vasopressors.
--- NOTE | 2021-08-25 12:38 | P.PN ---
Subjective Progress Note Date: 08/25/21 This is a 81-year-old male patient who is currently postop day 2 from mitral valve replacement, tricuspid valve repair and single-vessel bypass grafting SVG to obtuse marginal. Patient has a past medical history of valvular heart disease with symptoms including shortness of breath with exertion and unable to perform many of his activities of daily living. Additional medical history includes coronary artery disease with previous cardiac infarction and PCI, hypertension, chronic atrial fibrillation on Coumadin for and configuration status post cardioversion, sick sinus syndrome with [facility] permanent pacemaker placement 2016, chronic systolic heart failure, atrial septal defect status post closure with previous mitral clip in 2019 at [facility], chronic renal insufficiency, obstructive sleep apnea, reoccurring right-sided pleural effusions with previous thoracentesis 4. At this time patient is currently resting comfortably in the intensive care unit. Patient was successfully extubated per protocol currently on IV dopamine and Levophed. INR elevated at 6.5. hemoglobin 6.6. 1 unit PRBCs, 2 units of FFP have been ordered per surgical services INR recheck ordered for noon. Chest x-ray the same showing cardiomegaly with moderate to large right and small sized bilateral pleural effusion collection and/or effusions with mild to moderate central vascular congestion and bibasilar opacities favoring atelectasis along with left-sided chest tubes are redemonstrated. Per surgical services possible plans for Pleurx catheter placement. This time patient is resting comfortably in chair patient remains on high flow oxygen. Blood sugars have remained stable per nursing staff will transition off insulin drip to sliding scale coverage. Cardiology and critical care services are following. On 07/31/2021 patient having intermittent episodes of confusion. INR improving to 2.3. Hemoglobin 7.6. Chest tubes remain in place. Cardiology and critical care services are following. Patient remains on high flow nasal cannula. Current vitals heart rate 80, respiratory rate 16, blood pressure 104/51 On 08/01/2021 patient is more alert currently resting comfortably in chair. Sitter is at bedside. Patient remains on high flow nasal cannula. Patient remains on IV Bumex. Cordis, chest tube and right pigtail catheter all remain in place. On 08/02/2021 patient was seen and examined in the ICU he is alert and oriented 3 in no apparent distress, sitting up in a chair, he is maintained on high flow oxygen, with FiO2 of 45, pulse ox is 93% temperature 97.2 pulse 80 respiration 22 blood pressure 129/46, he denies any fever or chills no headache or dizziness no chest pain no shortness of breath no cough no nausea no vomiting no abdominal pain no diarrhea and no urinary symptoms, chest tube is still in place, he is maintained on Bumex 2 mg IV every 8 hours On 08/03/2021 patient remains in the intensive care unit. Patient is alert and oriented sitting comfortably in chair. Discussed case with surgical team Bumex has been DC'd. Creatinine 2.25 bun 70. Chest tube remains in place. Patient remains on high flow 60%. This time patient denies chest pain or shortness socorro th. Patient denies diarrhea. Patient denies any urinary burning or frequency On 08/04/2021 patient was seen and examined, in the ICU, he is alert and oriented 3 in no apparent distress, there is no fever or chills no headache or dizziness no chest pain no shortness of breath no cough no nausea or vomiting no abdominal pain no diarrhea and no urinary symptoms he still has a left sided chest to and he is complaining of discomfort at the site of the 2 he is maintained on oxygen at 8 L nasal cannula his pulse ox is 96% blood pressure 126/62 pulse 63 respiration 24 temperature 97.9 On 08/05/2021 patient was seen and examined in the ICU he is alert and oriented 3 in no apparent distress he is sitting up in a chair he is complaining of discomfort in the left chest at the site of the chest to he is also complaining of pain when coughing otherwise he denies any complaints at this time his vital exam reveals a temperature of 98 pulse 65 respiration 30 blood pressure 136/66 pulse ox 98% on oxygen 3 L nasal cannula, white blood count is 14.4 hemoglobin 8.0 platelet count 192 INR 1.2 BUN 85 creatinine 2.2 On 08/06/2021 patient remains in the intensive care unit. Patient is alert and oriented 3. White blood cell increasing to 15.3 per. Per critical care services will check UA and monitor fever pattern no need for antibiotic treatment at this time. Creatinine 2.53 and bun 89. Nephrology services are following. Current vitals temp 97.6, heart rate 64, pulse ox 94% on 3 L, blood pressure 166/57 08/07/2021 patient remains in the intensive care unit confusion has improved. Nephrology services are following. Patient remains with significant output from chest tubes. Current vitals temp 97.9, respiratory rate 22, blood pressure 124/60 to 98% on 5 L On 08/08/2021 patient is alert and oriented 3 currently sitting up in the care unit. Per nursing staff patient has been up ambulating with assistance. Still having significant output from chest tubes. Patient also getting treated for oral thrush. Discharge planning is in progress patient will likely need inpatient rehab upon discharge On 08/09/2021 patient was seen and examined in the ICU, he is sitting up in a chair, he is complaining of discomfort in his mouth due to thrush, he also has occasional cough otherwise he denies any complaints there is no fever or chills no headache or dizziness, no chest pain or shortness of breath no nausea or vomiting no abdominal pain no diarrhea no blood in the stools no burning with urination no frequency or urgency and no hematuria On 08/10/2021 patient remains in the intensive care unit. Currently working with physical therapy. Patient has positive sputum culture. Creatinine 2.7 bun 110. Nephrology services are following. Patient still having significant outpu t from chest tubes. Discussed case with cardiothoracic surgery no plans to remove chest tubes at this time. On 08/11/2021 patient was seen and examined in the ICU, he is sitting up in a chair, he is feeling somewhat better, he is complaining of discomfort in his mouth due to thrush, he also has occasional cough otherwise he denies any complaints there is no fever or chills no headache or dizziness, no chest pain or shortness of breath no nausea or vomiting no abdominal pain no diarrhea no blood in the stools no burning with urination no frequency or urgency and no hematuria. On 08/12/2021 patient remains in the intensive care unit. Nephrology services are following. Patient remains on IV antibiotics. Patient still draining significant amount from chest tube. Diet and ambulation encouraged. At this time patient denies chest pain or shortness of breath. Patient denies nausea vomiting or diarrhea. Patient denies any urinary burning or frequency On 08/13/2021 patient is alert and oriented 3 currently sitting up in chair. Patient remains in the intensive care unit chest tubes in place. White blood cell 13.8, hemoglobin 8.7, creatinine 2.84 and bun 126. Patient remains on 8 L nasal cannula. Current vitals temp 96.5, heart rate 70, her story rate 23, blood pressure 100/67 patient satting 90% on 8 L On 08/14/2021, patient was seen and examined in the ICU he is alert and oriented 3 in no apparent distress, chest tube is still in place, patient is scheduled for a right Pleurx catheter placement today, he is complaining of chest discomfort and shortness of breath otherwise he denies any complaints on 08/15/2021 patient remains in the intensive care unit. Patient is alert and oriented 3. creatinine 2.76, bun 128. Patient remains on IV cefepime. patient currently on 5 L high flow nasal cannula. Right Pleurx catheter placed yesterday with 400 mL serous fluid On 08/16/2021 patient is alert and oriented 3 sitting in chair. Patient remains in the intensive care unit. Patient having elevated blood sugars but per nursing staff patient was on steroids yesterday. Patient was having elevated blood sugars prior to steroids will add long-acting insulin coverage Levemir 10 units. Creatinine 2.99 bun 133. Patient down to 4 L nasal cannula. Increased diet and ambulation encouraged. As of 08/17/[address] Florez will be covering for Dr. Mondragon I am resuming care of patient on 08/25/2021 On 08/25/2021 patient required reintubation on 08/22/2021 for hypoxemia respiratory failure. Patient also required vasopressor medication for hypotension. Today patient currently remains in the intensive care unit on mechanical ventilation intubated and sedated. Patient remains on Levophed and vasopressin for pressure support medication. Patient has been started on tube feedings. Patient remains on cefepime and vancomycin for IV antibiotics. Patient currently on mechanical ventilation with FiO2 of 50% repeat blood gases and chest x-ray ordered per critical care for a.m. Objective - Vital Signs Vital signs: Vital Signs Temp 97.6 F 08/25/21 11:11 Pulse 78 08/25/21 11:11 Resp 26 H 08/25/21 11:11 BP 136/71 08/25/21 11:11 Pulse Ox 100 08/25/21 11:11 Intake & Output 08/24/21 08/25/21 08/25/21 18:59 06:59 18:59 Intake Total 9235.722 2158.873 960.477 Output Total 845 585 305 Balance 985.230 738.873 655.477 Weight 68.7 kg Intake: IV 936 780 365 Pressure Bag 36 30 15 Sodium Chloride 0.45% 1, 900 750 350 000 ml @ 75 mls/hr IV . [id number] PHIL Rx#:[id number] Intake, IV Titration 624.230 443.873 495.477 Amount Norepinephrine 32 mg In 489.330 269.375 145.477 Sodium Chloride 0.9% 218 ml @ 0.9 MCG/KG/MIN 28. 983 mls/hr IV [id number] PHIL Rx#:[id number] Vancomycin 1,250 mg In 250 Sodium Chloride 0.9% 250 ml @ 125 mls/hr IVPB Q24H PHIL Rx#:[id number] propofoL 1,000 mg In 134.9 174.498 100 Empty Bag 1 bag @ 5 MCG/ KG/MIN 2.061 mls/hr IV . Q24H PHIL Rx#:[id number] Tube Feeding 120 100 100 Other 150 Output: Drainage 100 Right Posterior 100 Urine 745 585 305 Other: Voiding Method Indwelling Catheter Indwelling Catheter ABP, PAP, CO, CI - Last Documented Arterial Blood Pressure 126/45 Pulmonary Artery Pressure 35/28 Cardiac Output 5 Cardiac Index 2.7 - Exam Patient currently on mechanical ventilation and sedation In general patient is alert and oriented x 3 in no distress HEENT head normocephalic and atraumatic Neck is supple no JVD no goiter no lymphadenopathy no carotid bruit Chest examination reveals a scattered crackles in both lung sousa no wheezing Cardiac exam reveals regular heart sounds S1 and S2 no gallops no murmurs Abdomen is soft nontender no organomegaly with normal bowel sounds Extremity exam reveals no edema no cyanosis or clubbing - Labs CBC & Chem 7: 08/25/21 03:45 08/25/21 03:45 Labs: Abnormal Lab Results - Last 24 Hours (Table) 08/24/21 08/25/21 08/25/21 Range/Units 18:15 00:17 03:45 WBC 20.2 H (3.8-10.6) k/uL RBC 2.69 L (4.30-5.90) m/uL Hgb 8.4 L (13.0-17.5) gm/dL Hct 28.5 L (39.0-53.0) % MCV 105.9 H (80.0-100.0) fL MCHC 29.4 L (31.0-37.0) g/dL RDW 19.4 H (11.5-15.5) % Plt Count 101 L (150-450) k/uL Neutrophils # 18.7 H (1.3-7.7) k/uL Lymphocytes # 0.4 L (1.0-4.8) k/uL Macrocytosis Marked A PT (9.0-12.0) sec INR (<1.2) Chloride (98-107) mmol/L BUN (9-20) mg/dL Creatinine (0.66-1.25) mg/dL Glucose (74-99) mg/dL POC Glucose (mg/dL) 159 H 165 H (75-99) mg/dL Calcium (8.4-10.2) mg/dL Total Bilirubin (0.2-1.3) mg/dL Total Protein (6.3-8.2) g/dL Albumin (3.5-5.0) g/dL 08/25/21 08/25/21 08/25/21 Range/Units 03:45 03:45 03:49 WBC (3.8-10.6) k/uL RBC (4.30-5.90) m/uL Hgb (13.0-17.5) gm/dL Hct (39.0-53.0) % MCV (80.0-100.0) fL MCHC (31.0-37.0) g/dL RDW (11.5-15.5) % Plt Count (150-450) k/uL Neutrophils # (1.3-7.7) k/uL Lymphocytes # (1.0-4.8) k/uL Macrocytosis PT 32.7 H (9.0-12.0) sec INR 3.3 H (<1.2) Chloride 113 H (98-107) mmol/L BUN 82 H (9-20) mg/dL Creatinine 2.05 H (0.66-1.25) mg/dL Glucose 141 H (74-99) mg/dL POC Glucose (mg/dL) 154 H (75-99) mg/dL Calcium 7.0 L (8.4-10.2) mg/dL Total Bilirubin 1.5 H (0.2-1.3) mg/dL Total Protein 4.2 L (6.3-8.2) g/dL Albumin 1.9 L (3.5-5.0) g/dL 08/25/21 08/25/21 Range/Units 05:39 11:27 WBC (3.8-10.6) k/uL RBC (4.30-5.90) m/uL Hgb (13.0-17.5) gm/dL Hct (39.0-53.0) % MCV (80.0-100.0) fL MCHC (31.0-37.0) g/dL RDW (11.5-15.5) % Plt Count (150-450) k/uL Neutrophils # (1.3-7.7) k/uL Lymphocytes # (1.0-4.8) k/uL Macrocytosis PT (9.0-12.0) sec INR (<1.2) Chloride (98-107) mmol/L BUN (9-20) mg/dL Creatinine (0.66-1.25) mg/dL Glucose (74-99) mg/dL POC Glucose (mg/dL) 148 H 177 H (75-99) mg/dL Calcium (8.4-10.2) mg/dL Total Bilirubin (0.2-1.3) mg/dL Total Protein (6.3-8.2) g/dL Albumin (3.5-5.0) g/dL Microbiology - Last 24 Hours (Table) 08/23/21 00:11 Gram Stain - Final Sputum Sputum Culture - Final 08/22/21 15:25 Blood Culture Gram Stain - Preliminary Blood Blood Culture - Preliminary Staphylococcus epidermidis Assessment and Plan Assessment: 1. Status post mitral valve replacement, tricuspid valve repair and single-ve ssel bypass grafting. 2. Right-sided pleural effusion 3. Coagulopathy. Resolved 4. History of congestive heart failure 5. History of valvular heart disease with previous mitral valve repair with a mitral clip at [facility] 6. History of coronary artery disease 7. History of hyperlipidemia 8. History of renal insufficiency 9. Previous history of atrial fibrillation 10. Sputum culture positive for Klebsiella pneumonia patient started on IV antibiotics 11. Hyperglycemia. A1c was 5.8 upon admission patient still having elevated blood sugars will add Levemir 10 units and sliding scale coverage 12. Septic shock and hypotension. Patient was started on vasopressin and Lev ophed 13. Acute respiratory failure requiring reintubation on 08/22/2021 Thank you for this consultation we will continue to follow patient closely throughout stay Patient remains in the intensive care unit Patient required reintubation on 08/22/2021 Currently on vasopressin and Levophed for pressure support Continue antibiotics per critical care
--- NOTE | 2021-08-25 12:39 | P.PN ---
Subjective Progress Note Date: 08/25/21 Principal diagnosis: Mitral valve regurgitation, tricuspid valve regurgitation, coronary artery disease. Previous medical history of CAD with previous cardial infarction and PCI, hypertension, chronic atrial fibrillation on Coumadin for anticoagulation status post cardioversion, sick sinus syndrome [facility] permanent pacemaker placement in 2017, chronic systolic heart failure, atrial septal defect status post closure, previous MitraClip in 2019, chronic renal insufficiency, previous tobacco dependence, severe restrictive lung disease, obstructive sleep apnea, recurrent right-sided pleural effusio with previous thoracentesis x 4, remote history of pneumonia, untreated prostate cancer which was diagnosed in May 2019, family history of premature coronary artery disease POD #28 mitral valve replacement with 31 mm Mosaic porcine valve prosthesis, tricuspid valve repair with 30 mm MC3 band, coronary artery bypass grafting 1 with reverse saphenous vein graft to the obtuse marginal artery, endovascular vein harvest of the left greater saphenous vein, epi-aortic ultrasound, closure of the left atrial appendage, closure of ASD Postoperative acute blood loss anemia and thrombocytopenia, expected given hemodilution and cardiopulmonary bypass pump Coagulopathy, unexpected Right-sided pleural effusion, expected given history of previous right-sided effusion with thoracentesis 4, status post right-sided pigtail catheter placement by interventional radiology, status post right sided pleurX catheter Leukocytosis, afebrile, sputum culture positive for Klebsiella pneumoniae Altered mental status after surgery due to delirium from lack of sleep, resolved Urinary retention, expected given his history of prostate cancer, requiring placement of Cortes catheter POD #5 EGD with PEG tube placement Acute hypoxic respiratory failure, unexpected, reintubated The patient was seen and examined this morning laying in bed mechanically ventilated in the intensive care unit. The patient's condition has shown some improvement, FiO2 has been weaned down to 50%, Levo has been weaned slightly. WBC increased, urine culture remains negative, sputum culture finalized as negative, blood culture demonstrates staph epi. Patient continues on cefepime and vancomycin. Continues tube feeding through his PEG tube. Urine output remains adequate, BUN/creat stable. Patient remains on levo which has been titrated down and vaso-. PleurX catheter drained for only 50 cc yesterday. and sister remain at the bedside, patient's children will be coming in to town this afternoon. Patient's does not want to escalate care but does want to continue along the same course as long as he isn't getting worse. Objective - Vital Signs Vital signs: Vital Signs Temp 97.6 F 08/25/21 11:11 Pulse 78 08/25/21 11:11 Resp 26 H 08/25/21 11:11 BP 136/71 08/25/21 11:11 Pulse Ox 100 08/25/21 11:11 Intake & Output 08/24/21 08/25/21 08/25/21 18:59 06:59 18:59 Intake Total 7773.818 9774.873 860.477 Output Total 845 585 305 Balance 985.230 738.873 555.477 Intake: IV 936 780 365 Pressure Bag 36 30 15 Sodium Chloride 0.45% 1, 900 750 350 000 ml @ 75 mls/hr IV . [id number] [facility] Rx#:[id number] Intake, IV Titration 624.230 443.873 395.477 Amount Norepinephrine 32 mg In 489.330 269.375 145.477 Sodium Chloride 0.9% 218 ml @ 0.9 MCG/KG/MIN 28. 983 mls/hr IV .[id number] [facility] Rx#:[id number] Vancomycin 1,250 mg In 250 Sodium Chloride 0.9% 250 ml @ 125 mls/hr IVPB Q24H [facility] Rx#:[id number] propofoL 1,000 mg In 134.9 174.498 Empty Bag 1 bag @ 5 MCG/ KG/MIN 2.061 mls/hr IV . Q24H [facility] Rx#:[id number] Tube Feeding 120 100 100 Other 150 Output: Drainage 100 Right Posterior 100 Urine 745 585 305 Other: Voiding Method Indwelling Catheter Indwelling Catheter ABP, PAP, CO, CI - Last Documented Arterial Blood Pressure 126/45 Pulmonary Artery Pressure 35/28 Cardiac Output 5 Cardiac Index 2.7 - Exam CONSTITUTIONAL: Appears comfortable, lying in bed on mechanical ventilation RESPIRATORY: Lungs sounds diminished bilaterally, right greater than left. Respirations even, nonlabored on mechanical ventilation. Current ventilator settings FiO2 50%, PEEP 6, tidal volume 450, respiratory rate 24. 8.0 ET tube present, 22 at the lip. Oxygen saturation 97%. CARDIOVASCULAR: S1, S2 present. Controlled atrial fibrillation on telemetry with heart rate in the 70s. Sternum stable. Palpable peripheral pulses bilaterally. Generalized edema present. Heart hugger, SUMI hose, SCDs in place. GASTROINTESTINAL: Abdomen soft, nontender, slightly distended. Hypoactive bowel sounds present 4 quadrants, abdomen less tympanic to percussion. Positive bowel movement 08/21/21 per nursing. PEG tube in place with tube feeding infusing at 20 mL per hour GENITOURINARY: Cortes catheter remains, urine output 40-75 mL/h overnight, 1330 mL in the last 24 hours INTEGUMENTARY: Skin is warm and dry. Anterior chest incision well approximate d. Left lower extremity EVH site well approximated without redness or drainage. Right pleurx cath site without redness, dressing present. PEG tube site without redness. Stage II present to buttocks measuring approximately 5 cm x 1 cm, covered with optifoam NEUROLOGIC: Sedated and mechanically ventilated PSYCHIATRIC: Sedated and mechanically ventilated INVASIVE LINES: Left internal jugular triple-lumen central line, left radial arterial line present - Allied health notes Allied health notes reviewed: nursing - Labs CBC & Chem 7: 08/25/21 03:45 08/25/21 03:45 Labs: Abnormal Lab Results - Last 24 Hours (Table) 08/24/21 08/25/21 08/25/21 Range/Units 18:15 00:17 03:45 WBC 20.2 H (3.8-10.6) k/uL RBC 2.69 L (4.30-5.90) m/uL Hgb 8.4 L (13.0-17.5) gm/dL Hct 28.5 L (39.0-53.0) % MCV 105.9 H (80.0-100.0) fL MCHC 29.4 L (31.0-37.0) g/dL RDW 19.4 H (11.5-15.5) % Plt Count 101 L (150-450) k/uL Neutrophils # 18.7 H (1.3-7.7) k/uL Lymphocytes # 0.4 L (1.0-4.8) k/uL Macrocytosis Marked A PT (9.0-12.0) sec INR (<1.2) Chloride (98-107) mmol/L BUN (9-20) mg/dL Creatinine (0.66-1.25) mg/dL Glucose (74-99) mg/dL POC Glucose (mg/dL) 159 H 165 H (75-99) mg/dL Calcium (8.4-10.2) mg/dL Total Bilirubin (0.2-1.3) mg/dL Total Protein (6.3-8.2) g/dL Albumin (3.5-5.0) g/dL 08/25/21 08/25/21 08/25/21 Range/Units 03:45 03:45 03:49 WBC (3.8-10.6) k/uL RBC (4.30-5.90) m/uL Hgb (13.0-17.5) gm/dL Hct (39.0-53.0) % MCV (80.0-100.0) fL MCHC (31.0-37.0) g/dL RDW (11.5-15.5) % Plt Count (150-450) k/uL Neutrophils # (1.3-7.7) k/uL Lymphocytes # (1.0-4.8) k/uL Macrocytosis PT 32.7 H (9.0-12.0) sec INR 3.3 H (<1.2) Chloride 113 H (98-107) mmol/L BUN 82 H (9-20) mg/dL Creatinine 2.05 H (0.66-1.25) mg/dL Glucose 141 H (74-99) mg/dL POC Glucose (mg/dL) 154 H (75-99) mg/dL Calcium 7.0 L (8.4-10.2) mg/dL Total Bilirubin 1.5 H (0.2-1.3) mg/dL Total Protein 4.2 L (6.3-8.2) g/dL Albumin 1.9 L (3.5-5.0) g/dL 08/25/21 08/25/21 Range/Units 05:39 11:27 WBC (3.8-10.6) k/uL RBC (4.30-5.90) m/uL Hgb (13.0-17.5) gm/dL Hct (39.0-53.0) % MCV (80.0-100.0) fL MCHC (31.0-37.0) g/dL RDW (11.5-15.5) % Plt Count (150-450) k/uL Neutrophils # (1.3-7.7) k/uL Lymphocytes # (1.0-4.8) k/uL Macrocytosis PT (9.0-12.0) sec INR (<1.2) Chloride (98-107) mmol/L BUN (9-20) mg/dL Creatinine (0.66-1.25) mg/dL Glucose (74-99) mg/dL POC Glucose (mg/dL) 148 H 177 H (75-99) mg/dL Calcium (8.4-10.2) mg/dL Total Bilirubin (0.2-1.3) mg/dL Total Protein (6.3-8.2) g/dL Albumin (3.5-5.0) g/dL Microbiology - Last 24 Hours (Table) 08/23/21 00:11 Gram Stain - Final Sputum Sputum Culture - Final 08/22/21 15:25 Blood Culture Gram Stain - Preliminary Blood Blood Culture - Preliminary Staphylococcus epidermidis Assessment and Plan Assessment: 1. Mitral valve regurgitation, previous MitraClip in 2019, status post post mitral valve replacement 2. Tricuspid valve regurgitation, status post tricuspid valve repair 3. Coronary artery disease with previous myocardial infarction and PCI, status post 1 vessel CABG 4. History of hypertension, currently hypotensive on pressors 5. Chronic atrial fibrillation on Coumadin for anticoagulation status post cardioversion, status post closure of the left atrial appendage 6. Sick sinus syndrome status post [facility] permanent pacemaker placement in 2016 7. Chronic systolic heart failure 8. Atrial septal defect status post closure 9. Acute on chronic renal insufficiency stage IIIB, baseline creatinine 1.6-1.7 10. Previous tobacco dependence 11. Severe restrictive lung disease, preoperative FEV1 47% of predicted 12. Recurrent right-sided pleural effusion, patient had right sided thoracentesis twice in 2019 and twice in 2020, status post right-sided pigtail catheter placement by IR, status post right sided pleurX catheter placement 13. Obstructive sleep apnea 14. Remote history of pneumonia 15. History of prostate cancer, untreated 16. Family history of premature coronary artery disease 17. Postoperative acute blood loss anemia and thrombocytopenia, expected 18. Coagulopathy, unexpected 19. Leukocytosis, elevated pro-calcitonin, afebrile, sputum culture positive for Klebsiella pneumoniae 20. Altered mental status after surgery due to delirium from lack of sleep, resolved 21. Urinary retention requiring placement of Cortes catheter 22. Malnutrition and general debility, status post PEG tube placement for supplemental feeding 23. Acute hypoxic respiratory failure, unexpected, reintubated Plan: 1. Continue low-dose aspirin, statin. Continue Levo and vaso-for hypotension, wean levo as tolerated 2. Ventilator management per pulmonology 3 Will monitor daily labs and x-rays. Electrolyte replacement per protocol. Diuretic management per nephrology 4. GI/DVT prophylaxis 5. Continue antibiotics 6. Insulin management per primary care service. Patient is not diabetic, preoperative hemoglobin A1c 5.8% 7. Pain control per current medication regimen. 8. Strict accurate intake and output. Daily weights 9. Continue tube feeding to maximize nutrition 10. Family updated continuously. Patient is no code, will not escalate care, will continue current course of treatment 11. Patient remains critically ill, prognosis guarded
--- NOTE | 2021-08-25 12:50 | XR ---
EXAMINATION TYPE: XR chest 1V portable DATE OF EXAM: 08/25/2021 COMPARISON: 08/24/2021 INDICATION: Tube placement TECHNIQUE: Single frontal view of the chest is obtained. FINDINGS: The heart size is large. The pulmonary vasculature is prominent. Diffuse patchy infiltrates through the bilateral lung sousa. Endotracheal tube tip is above the benoit. Sternotomy wires are in the midline. Right basilar chest c atheter is present. Small right pleural effusion is present. Small left pleural effusion is likely pr esent. Tiny right apical pleural line appears to be present. IMPRESSION: 1. Patchy bilateral lung infiltrates, stable from recent comparison. 2. Small bilateral pleural effusions. 3. Small right apical pneumothorax remains present.
--- NOTE | 2021-08-25 12:52 | P.PN ---
Subjective Progress Note Date: 08/25/21 HISTORY OF PRESENT ILLNESS: 08/25/2021 Patient is an 81-year-old male who came in with mitral and tricuspid valve insufficiency, and is status post mitral valve clipping, with CABG. A couple of days ago it appears the patient required intubation, secondary to increased need of pressor medication in order to maintain vascular status. Patient has been hospitalized for 27 days at this point. Chest x-ray from today does not demonstrate any definitive cardiopulmonary process, except similar bilateral basilar opacities that were seen on prior x-rays. It is felt that his deterio rating condition may be secondary to pulmonary process. We will obtain a 2-D echocardiogram tomorrow to evaluate current heart function. 08/25/2021 Patient examined this morning at the bedside. Patient remains intubated. He remains on vasopressor support. Telemetry reveals atrial fibrillation with controlled ventricular rates. PHYSICAL EXAM: VITAL SIGNS: Reviewed. GENERAL: Well-developed in no acute distress. Remains intubated on mechanical ventilation. NECK: Supple. No JVD or thyromegaly LUNGS: Respirations even and unlabored. Lungs diminished bilaterally HEART: Irregular rate and rhythm. S1 and S2 heard. EXTREMITIES: Normal range of motion. No clubbing or cyanosis. Peripheral pulses intact. 2+ bialteral lower extremity edema ASSESSMENT: Mitral regurgitation, status post mitral valve replacement Tricuspid regurgitation, status post tricuspid valve repair Coronary artery disease, status post CABG 1 Persistent atrial fibrillation, on warfarin Sick sinus syndrome, status post permanent pacemaker Chronic kidney disease, baseline 3A Acute kidney injury, improving Anemia, secondary to blood loss PLAN: Continue postoperative management per CTS 2D echo has been ordered. Await results. Wean vasopressors as tolerated Continue to monitor blood pressure. Continue telemetry monitoring Prognosis guarded. Patient has been made a DNR. Further recommendations pending patient course Nurse practitioner note has been reviewed by physician. Signing provider agrees with the documented findings, assessment, and plan of care. Objective - Vital Signs Vital signs: Vital Signs Temp 97.6 F 08/25/21 11:11 Pulse 78 08/25/21 11:11 Resp 26 H 08/25/21 11:11 BP 136/71 08/25/21 11:11 Pulse Ox 100 08/25/21 11:11 Intake & Output 08/24/21 08/25/21 08/25/21 18:59 06:59 18:59 Intake Total 8655.663 8450.873 960.477 Output Total 845 585 305 Balance 985.230 738.873 655.477 Weight 68.7 kg Intake: IV 936 780 365 Pressure Bag 36 30 15 Sodium Chloride 0.45% 1, 900 750 350 000 ml @ 75 mls/hr IV . [id number] [facility] Rx#:[id number] Intake, IV Titration 624.230 443.873 495.477 Amount Norepinephrine 32 mg In 489.330 269.375 145.477 Sodium Chloride 0.9% 218 ml @ 0.9 MCG/KG/MIN 28. 983 mls/hr IV .[id number] [facility] Rx#:[id number] Vancomycin 1,250 mg In 250 Sodium Chloride 0.9% 250 ml @ 125 mls/hr IVPB Q24H [facility] Rx#:[id number] propofoL 1,000 mg In 134.9 174.498 100 Empty Bag 1 bag @ 5 MCG/ KG/MIN 2.061 mls/hr IV . Q24H [facility] Rx#:[id number] Tube Feeding 120 100 100 Other 150 Output: Drainage 100 Right Posterior 100 Urine 745 585 305 Other: Voiding Method Indwelling Catheter Indwelling Catheter ABP, PAP, CO, CI - Last Documented Arterial Blood Pressure 126/45 Pulmonary Artery Pressure 35/28 Cardiac Output 5 Cardiac Index 2.7 - Labs CBC & Chem 7: 08/25/21 03:45 08/25/21 03:45 Labs: Abnormal Lab Results - Last 24 Hours (Table) 08/24/21 08/25/21 08/25/21 Range/Units 18:15 00:17 03:45 WBC 20.2 H (3.8-10.6) k/uL RBC 2.69 L (4.30-5.90) m/uL Hgb 8.4 L (13.0-17.5) gm/dL Hct 28.5 L (39.0-53.0) % MCV 105.9 H (80.0-100.0) fL MCHC 29.4 L (31.0-37.0) g/dL RDW 19.4 H (11.5-15.5) % Plt Count 101 L (150-450) k/uL Neutrophils # 18.7 H (1.3-7.7) k/uL Lymphocytes # 0.4 L (1.0-4.8) k/uL Macrocytosis Marked A PT (9.0-12.0) sec INR (<1.2) Chloride (98-107) mmol/L BUN (9-20) mg/dL Creatinine (0.66-1.25) mg/dL Glucose (74-99) mg/dL POC Glucose (mg/dL) 159 H 165 H (75-99) mg/dL Calcium (8.4-10.2) mg/dL Total Bilirubin (0.2-1.3) mg/dL Total Protein (6.3-8.2) g/dL Albumin (3.5-5.0) g/dL 08/25/21 08/25/21 08/25/21 Range/Units 03:45 03:45 03:49 WBC (3.8-10.6) k/uL RBC (4.30-5.90) m/uL Hgb (13.0-17.5) gm/dL Hct (39.0-53.0) % MCV (80.0-100.0) fL MCHC (31.0-37.0) g/dL RDW (11.5-15.5) % Plt Count (150-450) k/uL Neutrophils # (1.3-7.7) k/uL Lymphocytes # (1.0-4.8) k/uL Macrocytosis PT 32.7 H (9.0-12.0) sec INR 3.3 H (<1.2) Chloride 113 H (98-107) mmol/L BUN 82 H (9-20) mg/dL Creatinine 2.05 H (0.66-1.25) mg/dL Glucose 141 H (74-99) mg/dL POC Glucose (mg/dL) 154 H (75-99) mg/dL Calcium 7.0 L (8.4-10.2) mg/dL Total Bilirubin 1.5 H (0.2-1.3) mg/dL Total Protein 4.2 L (6.3-8.2) g/dL Albumin 1.9 L (3.5-5.0) g/dL 08/25/21 08/25/21 Range/Units 05:39 11:27 WBC (3.8-10.6) k/uL RBC (4.30-5.90) m/uL Hgb (13.0-17.5) gm/dL Hct (39.0-53.0) % MCV (80.0-100.0) fL MCHC (31.0-37.0) g/dL RDW (11.5-15.5) % Plt Count (150-450) k/uL Neutrophils # (1.3-7.7) k/uL Lymphocytes # (1.0-4.8) k/uL Macrocytosis PT (9.0-12.0) sec INR (<1.2) Chloride (98-107) mmol/L BUN (9-20) mg/dL Creatinine (0.66-1.25) mg/dL Glucose (74-99) mg/dL POC Glucose (mg/dL) 148 H 177 H (75-99) mg/dL Calcium (8.4-10.2) mg/dL Total Bilirubin (0.2-1.3) mg/dL Total Protein (6.3-8.2) g/dL Albumin (3.5-5.0) g/dL Microbiology - Last 24 Hours (Table) 08/23/21 00:11 Gram Stain - Final Sputum Sputum Culture - Final 08/22/21 15:25 Blood Culture Gram Stain - Preliminary Blood Blood Culture - Preliminary Staphylococcus epidermidis
[2021-08-25 14:14] LABS: Allen Test Performed? no
[2021-08-25 18:22] LABS: Glucose,Whole Blood 138 mg/dL (75-99)
[2021-08-25] MEDS: ATORVASTATIN 40 MG TAB PO SCH (20:13)
[2021-08-25] MEDS: CALCIUM ACETATE 667 MG TAB PO SCH (20:13)
[2021-08-25 23:48] LABS: Glucose,Whole Blood 167 mg/dL (75-99)
[2021-08-26] MEDS: METOCLOPRAMIDE 5 MG/ML 2 ML VIAL IVP SCH ×2 (00:24→05:43)
[2021-08-26] MEDS: SODIUM CHLORIDE 0.9% 50 ML with VASOPRESSIN 20 UNIT IVPB SCH ×6 (00:25→08:07)
[2021-08-26 01:04] LABS: Hepatitis B Surface Antibody Reactive (Nonreactive)
[2021-08-26] MEDS: SODIUM CHLORIDE 0.45% 1,000 ML IV SCH (03:07)
[2021-08-26] MEDS: IPRATROPIUM-ALBUTEROL 3 ML NEB INHALATION SCH ×2 (03:40→07:29)
[2021-08-26 04:22] LABS: Anisocytosis Slight; Basophils % (A) 0 %; Eosinophils # (A) 0.2 k/uL (0-0.7); Eosinophils % (A) 1 %; HGB 8.2 gm/dL (13.0-17.5); Hypochromasia Marked; INR 3.8 (<1.2); Lymphocytes # (A) 0.3 k/uL (1.0-4.8); Lymphocytes % (A) 2 %; MCH 30.5 pg (25.0-35.0); MCHC 29.1 g/dL (31.0-37.0); MCV 104.5 fL (80.0-100.0); Macrocytosis Marked; Mean Platelet Volume 9.8; Monocytes # (A) 0.8 k/uL (0-1.0); Monocytes % (A) 5 %; Neutrophils # (A) 15.2 k/uL (1.3-7.7); Neutrophils % (A) 91 %; Poikilocytosis Slight; RBC 2.68 m/uL (4.30-5.90); RDW 19.2 % (11.5-15.5); WBC 16.7 k/uL (3.8-10.6)
[2021-08-26 04:46] LABS: Albumin 1.9 g/dL (3.5-5.0); Calcium 7.2 mg/dL (8.4-10.2); Magnesium 2.3 mg/dL (1.6-2.3); Potassium 3.7 mmol/L (3.5-5.1); Total Bilirubin 1.2 mg/dL (0.2-1.3); Total Protein 4.3 g/dL (6.3-8.2)
[2021-08-26] MEDS: NOREPINEPHRINE 32 MG in SODIUM CHLORIDE 0.9% 218 ML IV SCH ×2 (05:23→06:11)
[2021-08-26 05:32] LABS: Platelet Count 86 k/uL (150-450)
[2021-08-26 05:33] LABS: Poikilocytosis (M) Present
[2021-08-26 05:34] LABS: Anisocytosis (M) Present
[2021-08-26 05:36] LABS: Glucose,Whole Blood 146 mg/dL (75-99)
[2021-08-26] MEDS: INSULIN ASPART (NovoLOG) 100 UNIT/ML VIAL SQ SCH (05:41)
[2021-08-26 06:13] LABS: Prealbumin <3.0 mg/dL (18.0-42.0)
[2021-08-26 06:16] LABS: ABG Base Excess -1.7 mmol/L; ABG HCO3 24 mmol/L (21-25); ABG Oxygen Saturation 96.4 % (94-97); ABG PCO2 42 mmHg (35-45); ABG PH 7.36 (7.35-7.45); ABG PO2 79 mmHg (83-108); ABG TCO2 25 mmol/L (19-24)
[2021-08-26 06:26] LABS: Allen Test Performed? No
[2021-08-26] MEDS: MIDODRINE 5 MG TAB PO SCH (06:30)
--- NOTE | 2021-08-26 06:53 | XR ---
EXAMINATION TYPE: XR chest 1V portable DATE OF EXAM: 08/26/2021 CLINICAL HISTORY: Difficulty breathing progress study. TECHNIQUE: Single AP portable semiupright view of the chest is obtained. COMPARISON: Chest x-ray from one day earlier and older studies. FINDINGS: Stable endotracheal tube. Stable left internal jugular central venous catheter. Persistent cardiomegaly with single lead pacemaker. Overlying sternal wires along with surgical santillan es to several cardiac valves redemonstrated. Persistent small bilateral pleural effusions greater on the right with right basilar chest tube. Persistent bilateral mid to lower lung opacities. Osseous st ructures are intact. IMPRESSION: Cardiomegaly with small right greater than left pleural effusions despite right basilar c hest tube. Persistent mid to lower lung bilateral acute infiltrate and/or edema. No significant santillan e from one day earlier.
--- NOTE | 2021-08-26 07:25 | P.PN ---
Subjective Progress Note Date: 08/26/21 Principal diagnosis: Mitral valve regurgitation, tricuspid valve regurgitation, coronary artery disease. Previous medical history of CAD with previous cardial infarction and PCI, hypertension, chronic atrial fibrillation on Coumadin for anticoagulation status post cardioversion, sick sinus syndrome [facility] [facility] permanent pacemaker placement in 2017, chronic systolic heart failure, atrial septal defect status post closure, previous MitraClip in 2019, chronic renal insufficiency, previous tobacco dependence, severe restrictive lung disease, obstructive sleep apnea, recurrent right-sided pleural effusio with previous thoracentesis x 4, remote history of pneumonia, untreated prostate cancer which was diagnosed in May 2019, family history of premature coronary artery disease POD #29 mitral valve replacement with 31 mm Mosaic porcine valve prosthesis, tricuspid valve repair with 30 mm MC3 band, coronary artery bypass grafting 1 with reverse saphenous vein graft to the obtuse marginal artery, endovascular vein harvest of the left greater saphenous vein, epi-aortic ultrasound, closure of the left atrial appendage, closure of ASD Postoperative acute blood loss anemia and thrombocytopenia, expected given hemodilution and cardiopulmonary bypass pump Coagulopathy, unexpected Right-sided pleural effusion, expected given history of previous right-sided effusion with thoracentesis 4, status post right-sided pigtail catheter placement by interventional radiology, status post right sided pleurX catheter Leukocytosis, afebrile, sputum culture positive for Klebsiella pneumoniae Altered mental status after surgery due to delirium from lack of sleep, resolved Urinary retention, expected given his history of prostate cancer, requiring placement of Cortes catheter POD #6 EGD with PEG tube placement Acute hypoxic respiratory failure, unexpected, reintubated The patient was seen and examined this morning laying in bed mechanically ventilated in the intensive care unit. WBC decreased this AM, urine culture remains negative, sputum culture finalized as negative, blood culture demonstrates staph epi. Patient continues on cefepime and vancomycin. Hemaglobin and platelets slightly lower due to hemodilution. INR continues to be elevated, last dose coumadin 08/22/21. Continues tube feeding through his PEG tube, increased to goal. Urine output remains adequate, BUN/creat stable, positive fluid balance. Patient remains on levo which has been titrated down and vaso-. PleurX catheter to be drained again today. Generalized edema remains present. Family updated continuously. Patient's does not want to escalate care but does want to continue along the same course as long as he isn't getting worse. Objective - Vital Signs Vital signs: Vital Signs Temp 97.9 F 08/26/21 04:00 Pulse 86 08/26/21 07:00 Resp 36 H 08/26/21 07:00 BP 115/66 08/26/21 07:00 Pulse Ox 95 08/26/21 07:00 Intake & Output 08/25/21 08/26/21 08/26/21 18:59 06:59 18:59 Intake Total 1397.014 778.167 Output Total 705 675 Balance 692.014 103.167 Weight 68.7 kg Intake: IV 549 276 Pressure Bag 39 36 Sodium Chloride 0.45% 1, 510 240 000 ml @ 20 mls/hr IV . Q24H [facility] Rx#:[id number] Intake, IV Titration 580.014 424.167 Amount Cefepime 1 gm In Sodium 50 Chloride 0.9% 50 ml @ 12. 5 mls/hr IVPB Q12H [facility] Rx #:[id number] Norepinephrine 32 mg In 180.014 238.429 Sodium Chloride 0.9% 218 ml @ 0.9 MCG/KG/MIN 28. 983 mls/hr IV .Q8H38M [facility] Rx#:[id number] Vancomycin 1,250 mg In 250 Sodium Chloride 0.9% 250 ml @ 125 mls/hr IVPB Q24H [facility] Rx#:[id number] propofoL 1,000 mg In 100 Empty Bag 1 bag @ 5 MCG/ KG/MIN 2.061 mls/hr IV . Q24H [facility] Rx#:[id number] propofoL 1,000 mg In 185.738 Empty Bag 1 bag @ 5 MCG/ KG/MIN 2.061 mls/hr IV . Q24H [facility] Rx#:[id number] Tube Feeding 268 48 Other 30 Output: Urine 705 675 Other: Voiding Method Indwelling Catheter Indwelling Catheter ABP, PAP, CO, CI - Last Documented Arterial Blood Pressure 119/43 Pulmonary Artery Pressure 35/28 Cardiac Output 5 Cardiac Index 2.7 - Exam CONSTITUTIONAL: Appears comfortable, lying in bed on mechanical ventilation RESPIRATORY: Lungs sounds diminished bilaterally, coarse in the bases. Respira tions even, nonlabored on mechanical ventilation. Current ventilator settings FiO2 60%, PEEP 6, tidal volume 450, respiratory rate 24. 8.0 ET tube present, 22 at the lip. Oxygen saturation 96%. CARDIOVASCULAR: S1, S2 present. Controlled atrial fibrillation on telemetry with heart rate in the 70-80s. Sternum stable. Palpable peripheral pulses bilaterally. Generalized edema present. SUMI hose, SCDs in place. GASTROINTESTINAL: Abdomen soft, nontender, slightly distended. Hypoactive bowel sounds present 4 quadrants. Positive bowel movement 08/21/21 per nursing. PEG tube in place with tube feeding infusing at 24 mL per hour(goal) GENITOURINARY: Cortes catheter remains, urine output 40-60 mL/h overnight, 1330 mL in the last 24 hours INTEGUMENTARY: Skin is warm and dry. Anterior chest incision well approximated. Left lower extremity EVH site well approximated without redness or drainage. Right pleurx cath site without redness, dressing present. PEG tube site without redness. Stage II present to buttocks measuring approximately 5 cm x 1 cm, covered with optifoam NEUROLOGIC: Sedated and mechanically ventilated PSYCHIATRIC: Sedated and mechanically ventilated INVASIVE LINES: Left internal jugular triple-lumen central line, left radial arterial line present - Allied health notes Allied health notes reviewed: nursing - Labs CBC & Chem 7: 08/26/21 03:50 08/26/21 03:50 Labs: Abnormal Lab Results - Last 24 Hours (Table) 08/25/21 08/25/21 08/25/21 Range/Units 03:45 03:46 05:01 WBC (3.8-10.6) k/uL RBC (4.30-5.90) m/uL Hgb (13.0-17.5) gm/dL Hct (39.0-53.0) % MCV (80.0-100.0) fL MCHC (31.0-37.0) g/dL RDW (11.5-15.5) % Plt Count (150-450) k/uL Neutrophils # (1.3-7.7) k/uL Lymphocytes # (1.0-4.8) k/uL Macrocytosis PT (9.0-12.0) sec INR (<1.2) ABG pO2 (83-108) mmHg ABG Total CO2 26 H (19-24) mmol/L Chloride (98-107) mmol/L BUN (9-20) mg/dL Creatinine (0.66-1.25) mg/dL Glucose (74-99) mg/dL POC Glucose (mg/dL) (75-99) mg/dL Calcium (8.4-10.2) mg/dL Alkaline Phosphatase (38-126) U/L Total Protein (6.3-8.2) g/dL Albumin (3.5-5.0) g/dL Prealbumin <3.0 L (18.0-42.0) mg/dL Hep Bs Antibody Reactive A (Nonreactive) 08/25/21 08/25/21 08/25/21 Range/Units 05:39 11:27 18:20 WBC (3.8-10.6) k/uL RBC (4.30-5.90) m/uL Hgb (13.0-17.5) gm/dL Hct (39.0-53.0) % MCV (80.0-100.0) fL MCHC (31.0-37.0) g/dL RDW (11.5-15.5) % Plt Count (150-450) k/uL Neutrophils # (1.3-7.7) k/uL Lymphocytes # (1.0-4.8) k/uL Macrocytosis PT (9.0-12.0) sec INR (<1.2) ABG pO2 (83-108) mmHg ABG Total CO2 (19-24) mmol/L Chloride (98-107) mmol/L BUN (9-20) mg/dL Creatinine (0.66-1.25) mg/dL Glucose (74-99) mg/dL POC Glucose (mg/dL) 148 H 177 H 138 H (75-99) mg/dL Calcium (8.4-10.2) mg/dL Alkaline Phosphatase (38-126) U/L Total Protein (6.3-8.2) g/dL Albumin (3.5-5.0) g/dL Prealbumin (18.0-42.0) mg/dL Hep Bs Antibody (Nonreactive) 08/25/21 08/26/21 08/26/21 Range/Units 23:47 03:50 03:50 WBC 16.7 H (3.8-10.6) k/uL RBC 2.68 L (4.30-5.90) m/uL Hgb 8.2 L (13.0-17.5) gm/dL Hct 28.0 L (39.0-53.0) % MCV 104.5 H (80.0-100.0) fL MCHC 29.1 L (31.0-37.0) g/dL RDW 19.2 H (11.5-15.5) % Plt Count 86 L (150-450) k/uL Neutrophils # 15.2 H (1.3-7.7) k/uL Lymphocytes # 0.3 L (1.0-4.8) k/uL Macrocytosis Marked A PT 38.0 H (9.0-12.0) sec INR 3.8 H (<1.2) ABG pO2 (83-108) mmHg ABG Total CO2 (19-24) mmol/L Chloride (98-107) mmol/L BUN (9-20) mg/dL Creatinine (0.66-1.25) mg/dL Glucose (74-99) mg/dL POC Glucose (mg/dL) 167 H (75-99) mg/dL Calcium (8.4-10.2) mg/dL Alkaline Phosphatase (38-126) U/L Total Protein (6.3-8.2) g/dL Albumin (3.5-5.0) g/dL Prealbumin (18.0-42.0) mg/dL Hep Bs Antibody (Nonreactive) 08/26/21 08/26/21 08/26/21 Range/Units 03:50 05:28 05:33 WBC (3.8-10.6) k/uL RBC (4.30-5.90) m/uL Hgb (13.0-17.5) gm/dL Hct (39.0-53.0) % MCV (80.0-100.0) fL MCHC (31.0-37.0) g/dL RDW (11.5-15.5) % Plt Count (150-450) k/uL Neutrophils # (1.3-7.7) k/uL Lymphocytes # (1.0-4.8) k/uL Macrocytosis PT (9.0-12.0) sec INR (<1.2) ABG pO2 79 L (83-108) mmHg ABG Total CO2 25 H (19-24) mmol/L Chloride 114 H (98-107) mmol/L BUN 77 H (9-20) mg/dL Creatinine 2.12 H (0.66-1.25) mg/dL Glucose 128 H (74-99) mg/dL POC Glucose (mg/dL) 146 H (75-99) mg/dL Calcium 7.2 L (8.4-10.2) mg/dL Alkaline Phosphatase 132 H (38-126) U/L Total Protein 4.3 L (6.3-8.2) g/dL Albumin 1.9 L (3.5-5.0) g/dL Prealbumin (18.0-42.0) mg/dL Hep Bs Antibody (Nonreactive) Microbiology - Last 24 Hours (Table) 08/23/21 00:11 Gram Stain - Final Sputum Sputum Culture - Final - Imaging and Cardiology Chest x-ray: report reviewed, image reviewed Assessment and Plan Assessment: 1. Mitral valve regurgitation, previous MitraClip in 2019, status post post mitral valve replacement 2. Tricuspid valve regurgitation, status post tricuspid valve repair 3. Coronary artery disease with previous myocardial infarction and PCI, status post 1 vessel CABG 4. History of hypertension, currently hypotensive on pressors 5. Chronic atrial fibrillation on Coumadin for anticoagulation status post cardioversion, status post closure of the left atrial appendage 6. Sick sinus syndrome status post [facility] [facility] permanent pacemaker placement in 2016 7. Chronic systolic heart failure 8. Atrial septal defect status post closure 9. Acute on chronic renal insufficiency stage IIIB, baseline creatinine 1.6-1.7 10. Previous tobacco dependence 11. Severe restrictive lung disease, preoperative FEV1 47% of predicted 12. Recurrent right-sided pleural effusion, patient had right sided thoracentesis twice in 2019 and twice in 2020, status post right-sided pigtail catheter placement by IR, status post right sided pleurX catheter placement 13. Obstructive sleep apnea 14. Remote history of pneumonia 15. History of prostate cancer, untreated 16. Family history of premature coronary artery disease 17. Postoperative acute blood loss anemia and thrombocytopenia, expected 18. Coagulopathy, unexpected 19. Leukocytosis, elevated pro-calcitonin, afebrile, sputum culture positive for Klebsiella pneumoniae 20. Altered mental status after surgery due to delirium from lack of sleep, resolved 21. Urinary retention requiring placement of Cortes catheter 22. Malnutrition and general debility, status post PEG tube placement for sup plemental feeding 23. Acute hypoxic respiratory failure, unexpected, reintubated Plan: 1. Continue low-dose aspirin, statin. Continue Levo and vaso-for hypotension, wean levo as tolerated 2. Ventilator management per pulmonology. Will drain pleurx cath today 3. Will monitor daily labs and x-rays. Electrolyte replacement per protocol. Diuretic management per nephrology 4. GI/DVT prophylaxis 5. Continue antibiotics 6. Insulin management per primary care service. Patient is not diabetic, preoperative hemoglobin A1c 5.8% 7. Pain control per current medication regimen. 8. Strict accurate intake and output. Daily weights 9. Continue tube feeding to maximize nutrition 10. Family updated continuously. Patient is no code, will not escalate care, will continue current course of treatment 11. Patient remains critically ill, prognosis guarded
[2021-08-26] MEDS ORDERED: Potassium Replacement Protocol 1 EACH MISC MISCELLANE PRN (08:00)
[2021-08-26] MEDS ORDERED: POTASSIUM BICARBONATE/CIT AC 20 MEQ TABLET.EFF NG-TUBE SCH (08:00)
[2021-08-26] MEDS: MULTIVITAMINS, THERA 1 EACH TAB PO SCH (08:06)
[2021-08-26] MEDS: ASCORBIC ACID 500 MG TAB PO SCH (08:06)
[2021-08-26] MEDS: PANTOPRAZOLE 40 MG/10 ML VIAL IVP SCH (08:06)
[2021-08-26] MEDS: FOLIC ACID 1 MG TAB PO SCH (08:06)
[2021-08-26] MEDS: FERROUS SULFATE 325 MG TAB PO SCH (08:06)
[2021-08-26] MEDS: THIAMINE 100 MG TAB PO SCH (08:06)
[2021-08-26] MEDS: CHLORHEXIDINE GLUCONATE 15 ML CUP MUCOUS MEM SCH (08:06)
[2021-08-26] MEDS: ASPIRIN 81 MG PO SCH (08:06)
[2021-08-26] MEDS ORDERED: ALBUMIN HUMAN 5% 250 ML in EMPTY BAG 1 BAG IVPB SCH (08:30)
[2021-08-26] MEDS ORDERED: ALBUMIN HUMAN 25% 50 ML in EMPTY BAG 1 BAG IVPB SCH (08:30)
[2021-08-26] MEDS ORDERED: BUMETANIDE 0.25 MG/ML 4 ML VIAL IVP SCH (09:00)
[2021-08-26] MEDS ORDERED: BUMETANIDE 0.25 MG/ML 4 ML VIAL IVP STA (09:24)
--- NOTE | 2021-08-26 09:26 | P.PN ---
Subjective Patient is seen in follow-up for acute kidney injury on chronic kidney disease. Renal function fairly stable. Nonoliguric. Intubated. On Levophed and vasopressin. Quite edematous. Receiving tube feeds. present at bedside. Considering comfort measures. Vital signs are stable. On Levophed and vasopressin. General: The patient appeared well nourished and normally developed. HEENT: Head exam is unremarkable. Neck is without jugular venous distension. LUNGS: Breath sounds decreased. HEART: Rate and Rhythm are regular. ABDOMEN: Soft, no distention. EXTREMITITES: 2+ edema. Scrotal edema noted. Objective - Vital Signs Vital signs: Vital Signs Temp 97.9 F 08/26/21 04:00 Pulse 89 08/26/21 07:58 Resp 36 H 08/26/21 07:00 BP 115/66 08/26/21 07:00 Pulse Ox 95 08/26/21 07:00 Intake & Output 08/25/21 08/26/21 08/26/21 18:59 06:59 18:59 Intake Total 1397.014 778.167 57.158 Output Total 705 675 Balance 692.014 103.167 57.158 Weight 68.7 kg Intake: IV 549 276 Pressure Bag 39 36 Sodium Chloride 0.45% 1, 510 240 000 ml @ 20 mls/hr IV . Q24H [facility] Rx#:[id number] Intake, IV Titration 580.014 424.167 57.158 Amount Cefepime 1 gm In Sodium 50 Chloride 0.9% 50 ml @ 12. 5 mls/hr IVPB Q12H [facility] Rx #:[id number] Norepinephrine 32 mg In 180.014 238.429 Sodium Chloride 0.9% 218 ml @ 0.9 MCG/KG/MIN 28. 983 mls/hr IV .Q8H38M [facility] Rx#:[id number] Vancomycin 1,250 mg In 250 Sodium Chloride 0.9% 250 ml @ 125 mls/hr IVPB Q24H [facility] Rx#:[id number] propofoL 1,000 mg In 100 Empty Bag 1 bag @ 5 MCG/ KG/MIN 2.061 mls/hr IV . Q24H [facility] Rx#:[id number] propofoL 1,000 mg In 185.738 57.158 Empty Bag 1 bag @ 5 MCG/ KG/MIN 2.061 mls/hr IV . Q24H [facility] Rx#:[id number] Tube Feeding 268 48 Other 30 Output: Urine 705 675 Other: Voiding Method Indwelling Catheter Indwelling Catheter ABP, PAP, CO, CI - Last Documented Arterial Blood Pressure 119/43 Pulmonary Artery Pressure 35/28 Cardiac Output 5 Cardiac Index 2.7 - Labs CBC & Chem 7: 08/26/21 03:50 08/26/21 03:50 Labs: Abnormal Lab Results - Last 24 Hours (Table) 08/25/21 08/25/21 08/25/21 Range/Units 03:45 03:46 05:01 WBC (3.8-10.6) k/uL RBC (4.30-5.90) m/uL Hgb (13.0-17.5) gm/dL Hct (39.0-53.0) % MCV (80.0-100.0) fL MCHC (31.0-37.0) g/dL RDW (11.5-15.5) % Plt Count (150-450) k/uL Neutrophils # (1.3-7.7) k/uL Lymphocytes # (1.0-4.8) k/uL Macrocytosis PT (9.0-12.0) sec INR (<1.2) ABG pO2 (83-108) mmHg ABG Total CO2 26 H (19-24) mmol/L Chloride (98-107) mmol/L BUN (9-20) mg/dL Creatinine (0.66-1.25) mg/dL Glucose (74-99) mg/dL POC Glucose (mg/dL) (75-99) mg/dL Calcium (8.4-10.2) mg/dL Alkaline Phosphatase (38-126) U/L Total Protein (6.3-8.2) g/dL Albumin (3.5-5.0) g/dL Prealbumin <3.0 L (18.0-42.0) mg/dL Hep Bs Antibody Reactive A (Nonreactive) 08/25/21 08/25/21 08/25/21 Range/Units 05:39 11:27 18:20 WBC (3.8-10.6) k/uL RBC (4.30-5.90) m/uL Hgb (13.0-17.5) gm/dL Hct (39.0-53.0) % MCV (80.0-100.0) fL MCHC (31.0-37.0) g/dL RDW (11.5-15.5) % Plt Count (150-450) k/uL Neutrophils # (1.3-7.7) k/uL Lymphocytes # (1.0-4.8) k/uL Macrocytosis PT (9.0-12.0) sec INR (<1.2) ABG pO2 (83-108) mmHg ABG Total CO2 (19-24) mmol/L Chloride (98-107) mmol/L BUN (9-20) mg/dL Creatinine (0.66-1.25) mg/dL Glucose (74-99) mg/dL POC Glucose (mg/dL) 148 H 177 H 138 H (75-99) mg/dL Calcium (8.4-10.2) mg/dL Alkaline Phosphatase (38-126) U/L Total Protein (6.3-8.2) g/dL Albumin (3.5-5.0) g/dL Prealbumin (18.0-42.0) mg/dL Hep Bs Antibody (Nonreactive) 08/25/21 08/26/21 08/26/21 Range/Units 23:47 03:50 03:50 WBC 16.7 H (3.8-10.6) k/uL RBC 2.68 L (4.30-5.90) m/uL Hgb 8.2 L (13.0-17.5) gm/dL Hct 28.0 L (39.0-53.0) % MCV 104.5 H (80.0-100.0) fL MCHC 29.1 L (31.0-37.0) g/dL RDW 19.2 H (11.5-15.5) % Plt Count 86 L (150-450) k/uL Neutrophils # 15.2 H (1.3-7.7) k/uL Lymphocytes # 0.3 L (1.0-4.8) k/uL Macrocytosis Marked A PT 38.0 H (9.0-12.0) sec INR 3.8 H (<1.2) ABG pO2 (83-108) mmHg ABG Total CO2 (19-24) mmol/L Chloride (98-107) mmol/L BUN (9-20) mg/dL Creatinine (0.66-1.25) mg/dL Glucose (74-99) mg/dL POC Glucose (mg/dL) 167 H (75-99) mg/dL Calcium (8.4-10.2) mg/dL Alkaline Phosphatase (38-126) U/L Total Protein (6.3-8.2) g/dL Albumin (3.5-5.0) g/dL Prealbumin (18.0-42.0) mg/dL Hep Bs Antibody (Nonreactive) 08/26/21 08/26/21 08/26/21 Range/Units 03:50 05:28 05:33 WBC (3.8-10.6) k/uL RBC (4.30-5.90) m/uL Hgb (13.0-17.5) gm/dL Hct (39.0-53.0) % MCV (80.0-100.0) fL MCHC (31.0-37.0) g/dL RDW (11.5-15.5) % Plt Count (150-450) k/uL Neutrophils # (1.3-7.7) k/uL Lymphocytes # (1.0-4.8) k/uL Macrocytosis PT (9.0-12.0) sec INR (<1.2) ABG pO2 79 L (83-108) mmHg ABG Total CO2 25 H (19-24) mmol/L Chloride 114 H (98-107) mmol/L BUN 77 H (9-20) mg/dL Creatinine 2.12 H (0.66-1.25) mg/dL Glucose 128 H (74-99) mg/dL POC Glucose (mg/dL) 146 H (75-99) mg/dL Calcium 7.2 L (8.4-10.2) mg/dL Alkaline Phosphatase 132 H (38-126) U/L Total Protein 4.3 L (6.3-8.2) g/dL Albumin 1.9 L (3.5-5.0) g/dL Prealbumin (18.0-42.0) mg/dL Hep Bs Antibody (Nonreactive) Microbiology - Last 24 Hours (Table) 08/23/21 00:11 Gram Stain - Final Sputum Sputum Culture - Final Assessment and Plan Plan: Assessment: 1. Acute kidney injury secondary to ATN secondary to septic shock. Renal function fairly stable. Nonoliguric. 2. Chronic kidney disease stage IIIB with baseline creatinine near 1.6-1.7. 3. Coronary artery disease status post CABG with mitral valve replacement and tricuspid valve repair. 4. Acute blood loss anemia postoperatively status post blood transfusion and IV iron. On Aranesp. No active bleeding. 5. Volume overload. Status post right Pleurx catheter placed 06/16/2021. 6. Chronic kidney disease mineral bone disease maintained on PhosLo. Phosphorus 5.5 dated 08/09/2021; 4.7 dated 08/25/2021. 7. Metabolic acidosis secondary to acute kidney injury. Stable. 8. Septic shock secondary to pneumonia. Sputum culture positive for Klebsiella. Blood culture positive for staph epi. On antibiotics and vasopressor support. Plan: Maintain tube feeds. Also receiving IV albumin. Maintain IV Bumex. Encouraged oral intake. Continue to monitor renal function and urine output. Wean FiO2 and vasopressors. Monitor vancomycin level. Dose to be adjusted for renal function. Prognosis guarded. considering comfort measures.
[2021-08-26] MEDS ORDERED: MORPHINE SULFATE 4 MG/ML SYRINGE IVP ONE (09:56)
[2021-08-26] MEDS ORDERED: MORPHINE SULFATE 4 MG/ML SYRINGE IV PRN (09:56)
[2021-08-26] MEDS ORDERED: SCOPOLAMINE 1 MG/72 HR PATCH TRANSDERM SCH (10:00)
[2021-08-26] MEDS ORDERED: MORPHINE SULFATE (100 MG/2 ML) 100 MG in SODIUM CHLORIDE 0.9% 100 ML IV SCH (10:00)
[2021-08-26 10:19] VITALS: BP 108/70; PULSE 86; RESP 97; TEMP 99.3
--- NOTE | 2021-08-26 12:00 | P.PN ---
Subjective Progress Note Date: 08/26/21 HISTORY OF PRESENT ILLNESS: 08/25/2021 Patient is an 81-year-old male who came in with mitral and tricuspid valve insufficiency, and is status post mitral valve clipping, with CABG. A couple of days ago it appears the patient required intubation, secondary to increased need of pressor medication in order to maintain vascular status. Patient has been hospitalized for 27 days at this point. Chest x-ray from today does not demonstrate any definitive cardiopulmonary process, except similar bilateral basilar opacities that were seen on prior x-rays. It is felt that his deterio rating condition may be secondary to pulmonary process. We will obtain a 2-D echocardiogram tomorrow to evaluate current heart function. 08/25/2021 Patient examined this morning at the bedside. Patient remains intubated. He remains on vasopressor support. Telemetry reveals atrial fibrillation with controlled ventricular rates. 08/26/2021 Patient examined this morning at the bedside. Patient remains intubated. He remains on vasopressor support. Telemetry reveals atrial fibrillation with controlled ventricular rates. PHYSICAL EXAM: VITAL SIGNS: Reviewed. GENERAL: Well-developed in no acute distress. Remains intubated on mechanical ventilation. NECK: Supple. No JVD or thyromegaly LUNGS: Respirations even and unlabored. Lungs diminished bilaterally HEART: Irregular rate and rhythm. S1 and S2 heard. EXTREMITIES: Normal range of motion. No clubbing or cyanosis. Peripheral pulses intact. 2+ bialteral lower extremity edema ASSESSMENT: Mitral regurgitation, status post mitral valve replacement Tricuspid regurgitation, status post tricuspid valve repair Coronary artery disease, status post CABG 1 Persistent atrial fibrillation, on warfarin Sick sinus syndrome, status post permanent pacemaker Chronic kidney disease, baseline 3A Acute kidney injury, improving Anemia, secondary to blood loss PLAN: Patient is going comfort care today per nursing. We will sign off. Please reconsult if needed Nurse practitioner note has been reviewed by physician. Signing provider agrees with the documented findings, assessment, and plan of care. Objective - Vital Signs Vital signs: Vital Signs Temp 99.3 F 08/26/21 08:00 Pulse 86 08/26/21 10:00 Resp 97 H 08/26/21 10:00 BP 108/70 08/26/21 10:00 Pulse Ox 95 08/26/21 10:00 Intake & Output 08/25/21 08/26/21 08/26/21 18:59 06:59 18:59 Intake Total 1397.014 778.167 152.050 Output Total 705 675 Balance 692.014 103.167 152.050 Weight 68.7 kg Intake: IV 549 276 Pressure Bag 39 36 Sodium Chloride 0.45% 1, 510 240 000 ml @ 20 mls/hr IV . Q24H [facility] Rx#:[id number] Intake, IV Titration 580.014 424.167 152.050 Amount Cefepime 1 gm In Sodium 50 Chloride 0.9% 50 ml @ 12. 5 mls/hr IVPB Q12H [facility] Rx #:[id number] Norepinephrine 32 mg In 180.014 238.429 94.892 Sodium Chloride 0.9% 218 ml @ 0.9 MCG/KG/MIN 28. 983 mls/hr IV .Q8H38M [facility] Rx#:[id number] Vancomycin 1,250 mg In 250 Sodium Chloride 0.9% 250 ml @ 125 mls/hr IVPB Q24H [facility] Rx#:[id number] propofoL 1,000 mg In 100 Empty Bag 1 bag @ 5 MCG/ KG/MIN 2.061 mls/hr IV . Q24H [facility] Rx#:[id number] propofoL 1,000 mg In 185.738 57.158 Empty Bag 1 bag @ 5 MCG/ KG/MIN 2.061 mls/hr IV . Q24H [facility] Rx#:[id number] Tube Feeding 268 48 Other 30 Output: Urine 705 675 Other: Voiding Method Indwelling Catheter Indwelling Catheter Indwelling Catheter ABP, PAP, CO, CI - Last Documented Arterial Blood Pressure 112/45 Pulmonary Artery Pressure 35/28 Cardiac Output 5 Cardiac Index 2.7 - Labs CBC & Chem 7: 08/26/21 03:50 08/26/21 03:50 Labs: Abnormal Lab Results - Last 24 Hours (Table) 08/25/21 08/25/21 08/25/21 Range/Units 03:45 03:46 05:01 WBC (3.8-10.6) k/uL RBC (4.30-5.90) m/uL Hgb (13.0-17.5) gm/dL Hct (39.0-53.0) % MCV (80.0-100.0) fL MCHC (31.0-37.0) g/dL RDW (11.5-15.5) % Plt Count (150-450) k/uL Neutrophils # (1.3-7.7) k/uL Lymphocytes # (1.0-4.8) k/uL Macrocytosis PT (9.0-12.0) sec INR (<1.2) ABG pO2 (83-108) mmHg ABG Total CO2 26 H (19-24) mmol/L Chloride (98-107) mmol/L BUN (9-20) mg/dL Creatinine (0.66-1.25) mg/dL Glucose (74-99) mg/dL POC Glucose (mg/dL) (75-99) mg/dL Calcium (8.4-10.2) mg/dL Alkaline Phosphatase (38-126) U/L Total Protein (6.3-8.2) g/dL Albumin (3.5-5.0) g/dL Prealbumin <3.0 L (18.0-42.0) mg/dL Hep Bs Antibody Reactive A (Nonreactive) 08/25/21 08/25/21 08/26/21 Range/Units 18:20 23:47 03:50 WBC 16.7 H (3.8-10.6) k/uL RBC 2.68 L (4.30-5.90) m/uL Hgb 8.2 L (13.0-17.5) gm/dL Hct 28.0 L (39.0-53.0) % MCV 104.5 H (80.0-100.0) fL MCHC 29.1 L (31.0-37.0) g/dL RDW 19.2 H (11.5-15.5) % Plt Count 86 L (150-450) k/uL Neutrophils # 15.2 H (1.3-7.7) k/uL Lymphocytes # 0.3 L (1.0-4.8) k/uL Macrocytosis Marked A PT (9.0-12.0) sec INR (<1.2) ABG pO2 (83-108) mmHg ABG Total CO2 (19-24) mmol/L Chloride (98-107) mmol/L BUN (9-20) mg/dL Creatinine (0.66-1.25) mg/dL Glucose (74-99) mg/dL POC Glucose (mg/dL) 138 H 167 H (75-99) mg/dL Calcium (8.4-10.2) mg/dL Alkaline Phosphatase (38-126) U/L Total Protein (6.3-8.2) g/dL Albumin (3.5-5.0) g/dL Prealbumin (18.0-42.0) mg/dL Hep Bs Antibody (Nonreactive) 08/26/21 08/26/21 08/26/21 Range/Units 03:50 03:50 05:28 WBC (3.8-10.6) k/uL RBC (4.30-5.90) m/uL Hgb (13.0-17.5) gm/dL Hct (39.0-53.0) % MCV (80.0-100.0) fL MCHC (31.0-37.0) g/dL RDW (11.5-15.5) % Plt Count (150-450) k/uL Neutrophils # (1.3-7.7) k/uL Lymphocytes # (1.0-4.8) k/uL Macrocytosis PT 38.0 H (9.0-12.0) sec INR 3.8 H (<1.2) ABG pO2 79 L (83-108) mmHg ABG Total CO2 25 H (19-24) mmol/L Chloride 114 H (98-107) mmol/L BUN 77 H (9-20) mg/dL Creatinine 2.12 H (0.66-1.25) mg/dL Glucose 128 H (74-99) mg/dL POC Glucose (mg/dL) (75-99) mg/dL Calcium 7.2 L (8.4-10.2) mg/dL Alkaline Phosphatase 132 H (38-126) U/L Total Protein 4.3 L (6.3-8.2) g/dL Albumin 1.9 L (3.5-5.0) g/dL Prealbumin (18.0-42.0) mg/dL Hep Bs Antibody (Nonreactive) 08/26/21 Range/Units 05:33 WBC (3.8-10.6) k/uL RBC (4.30-5.90) m/uL Hgb (13.0-17.5) gm/dL Hct (39.0-53.0) % MCV (80.0-100.0) fL MCHC (31.0-37.0) g/dL RDW (11.5-15.5) % Plt Count (150-450) k/uL Neutrophils # (1.3-7.7) k/uL Lymphocytes # (1.0-4.8) k/uL Macrocytosis PT (9.0-12.0) sec INR (<1.2) ABG pO2 (83-108) mmHg ABG Total CO2 (19-24) mmol/L Chloride (98-107) mmol/L BUN (9-20) mg/dL Creatinine (0.66-1.25) mg/dL Glucose (74-99) mg/dL POC Glucose (mg/dL) 146 H (75-99) mg/dL Calcium (8.4-10.2) mg/dL Alkaline Phosphatase (38-126) U/L Total Protein (6.3-8.2) g/dL Albumin (3.5-5.0) g/dL Prealbumin (18.0-42.0) mg/dL Hep Bs Antibody (Nonreactive) Microbiology - Last 24 Hours (Table) 08/23/21 00:11 Gram Stain - Final Sputum Sputum Culture - Final
--- NOTE | 2021-08-26 12:31 | P.PN ---
Subjective Progress Note Date: 08/26/21 The patient is seen today 08/12/2021 in follow-up in the intensive care unit. He is postoperative day #15 above mitral valve replacement, tricuspid valve repair and coronary artery bypass grafting times one. He had had issues with recurrent right-sided pleural effusion and is status post right-sided pigtail catheter in place. Proximal main 400 ML's of serosanguineous fluid drained overnight. Left-sided chest tube remains in place with an another 200 ML's of serosanguineous fluid drained. He is requiring 6 L of high flow nasal cannula to maintain O2 saturations in the 90s. Chest x-ray shows improvement in the pleural effusions. There is still bilateral opacities and some interstitial changes consistent with congestive heart failure. Moderate cardiomegaly. He is alert and oriented today. He still has complaints of a sore mouth. His appetite has been poor. Current cardiac rhythm is paced. Urine cultures revealed no growth. Blood cultures reveal no growth. Sputum culture from 10/2021 was positive for Klebsiella pneumoniae. White count 13.2. Hemoglobin 8.5. Platelets 261. Sodium 133. Potassium 4.8. Bicarb 21. BUN 119. Creatinine 2.80. Glucose 138. He is status post 2 units of packed red blood cells, 4 units of fresh frozen plasma and 2 units of platelets this admission. He is continued on nystatin swish and swallow, bronchodilators, heparin for DVT prophylaxis. Remains on Bumex. Currently in a -125 ML balance. Patient is seen today 08/13/2021 in follow-up in the intensive care unit. He is postoperative day #16. He is currently resting fairly comfortably in bed. He is requiring 10 L high flow nasal cannula to maintain O2 saturations in the low 90s. His bilateral chest tubes have been removed. This morning chest x-ray revealed loculated right costophrenic angle pneumothorax. Minimal right apical pneumothorax. Evidence of cardiomegaly with prominent pulmonary vascular congestion. Previous sputum had been positive for Klebsiella pneumoniae. White count 13.8. Hemoglobin 8.7. Platelets 242. INR 2.0. Sodium 134. Potassium 5.2. BUN 126. Creatinine 2.4. He is continued on DuoNeb inhalations, IV Bumex, antibiotics in the form of cefepime. He'll also be trialed on BiPAP 04/07 and titrate the FiO2. He is continued on Protonix for GI prophylaxis. His appetite has improved on a pured diet. He seems to tolerate that better. Less mouth discomfort. The patient is seen today 08/19/2021 in follow-up in intensive care unit. He is currently sitting up in a chair at the bedside. Awake and alert in no acute distress. Skin of the brain revealed chronic ischemic changes and scattered chronic infarcts. 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 No intracranial hemorrhage or gross acute cortical infarct. He is still maint aining O2 saturations in the 90s on 3 L/m per nasal cannula. He is pulling approximately 1000 ML's on his incentive spirometer. Chest x-ray continues to show diffuse increased lung markings in the right mid and lower lung field. Small right pleural effusion is present. Mild left basilar infiltrate. Pleurx catheter drained by CT services for 250 mL today. He is status post 2 units of packed red blood cells, 4 units of fresh frozen plasma, 2 units of platelets this admission. Sputum culture had been previously positive for Klebsiella pneumonia. White count 10.6. Hemoglobin 8.9. Platelets 134. INR 2.2. Sodium 148. Potassium 3.9. Chloride 114. Bicarb 26. BUN 119. Creatinine 2.41. Glucose 133. He continues to have poor oral intake. He continues to eat less than 50% of his meals. The plan is for possible PEG tube placement. He is continued on DuoNeb inhalations, Symbicort inhalations. Initiated back on his Zoloft. The patient is seen today 08/20/2021 in follow-up in the intensive care unit. He is awake and alert in no acute distress. He is maintaining O2 saturations in the 90s on 6 L high flow nasal cannula. Chest x-ray continues to show persistent pulmonary vascular congestion with right-sided pleural effusion and pleural parenchymal density with cardiomegaly. Hilar mediastinal structures are within normal limits. He is currently sitting up in the recliner at the bedside. He did utilize BiPAP last night 04/07 and 50% FiO2. He has D5W running at 75 ML's per hour. PEG tube was not placed yesterday due to elevated INR. INR today is 1.9. Blood glucose 161. The rest of the labs are pending. He is continued on DuoNeb inhalations, Symbicort. Encouraged to continue to work well with the incentive spirometer. He has been seen by psychiatric services for questionable depression. He is continued on Zoloft. Remeron was added at bedtime. He is also on Megace to try to improve his appetite. Heparin for DVT prophylaxis. The patient is seen today 08/22/2019 in follow-up in the intensive care unit. He is currently sitting up in a chair at the bedside. Awake and alert in no acute distress. He is down to 2 L nasal cannula maintaining O2 saturations in the 90s. He is utilizing BiPAP at night 04/07 and 50% FiO2. He has D5W at 75 ML's per hour. He did have a PEG tube placed yesterday. He is continued on Symbicort and DuoNeb inhalations. Anticoagulated with warfarin. White count 9.7. Hemoglobin 9.3. We will count 102,000. INR 2.2. Sodium 136. Potassium 4.0. The 183. Creatinine 1.88. AST 33. ALT 18. Albumin 2.6. Chest x-ray continues to show pleural effusion and associated atelectasis. CT services removed 200 mL of thin serosanguineous drainage from his right Pleurx catheter today. The patient is seen today 08/22/2021 in follow-up in the intensive care unit. He is awake and alert in no acute distress. Sitting up at the bedside. Currently on 5 L high flow nasal cannula with O2 saturation at 94%. He is afebrile. Hemodynamically stable. 6 continues to show right lower lobe infiltrate with small pleural effusion. Pleurx catheter remains in place. Sputum culture had been positive for Klebsiella pneumoniae. . Completed a course of antibiotics. He remains on Symbicort, DuoNeb inhalations, continues to work with the incentive spirometer. Antegrade related with warfarin and INR 2.7. He white count 17.9. Hemoglobin 8.9. Platelets 104. Sodium 146. Potassium 4.3. BUN 101. Creatinine 2.06. Glucose 142. The patient is seen today 08/23/2021 in follow-up in the intensive care unit. Yesterday his condition started to deteriorate. He became quite hypotensive. He went on to require pressor support and he ended up requiring been placed back on the mechanical ventilator around 1630. He is seen today in the ICU. Current vent settings are's control mode at a rate of 24, tidal volume 450, FiO2 100% and a PEEP of 8. Morning blood gases revealed a PaO2 of 70, pCO2 40, pH 7.35. Tube feedings are placed on hold. He was initiated on a bicarb drip D5W with 3 A of sodium bicarb at 50 MLS per hour. He is sedated with propofol at 45 mcg/kg/m. He is on norepinephrine at 61 mcg/m. Vasopressin at 0.04 units per minute. Chest x-ray continues to revealed bilateral airspace disease. No evidence of pneumothorax. Right-sided Pleurx catheter remains in place. He has received 2 units of packed red blood cells, 4 units of fresh frozen plasma and 2 units of platelets so far this admission. White count 13.8. Hemoglobin 8.8. Platelets 115,000. INR 4.2. Sodium 146. Potassium 3.9. Chloride 112. Bicarb 29. BUN 95. Creatinine 1.96. Glucose 196. He's been afebrile. Paced rhythm. Currently in a +6.7 L balance. The patient is seen today 08/24/2021 in follow-up in the intensive care unit. He remains intubated and on the mechanical ventilator. Current settings are assist-control mode at a rate of 24, tidal volume 450, FiO2 80% and a PEEP of 8. Morning blood gases reveal a P O2 of 147, pCO2 of 44, pH 7.38 and 100% FiO2. He remains sedated with propofol at 40 mcg/kg/m. He has 0.45% normal saline at 75 ML's per hour. Vasopressin at 0.04 units per minute. Norepinephrine at 61 mcg/m. He is receiving tube feedings with Nepro at 10 mL per hour. Chest x-ray is revealing similar multifocal airspace opacities. Endotracheal tube inserted an additional 2cm centimeters. Nasogastric tube is in place. Left internal jugular triple-lumen catheter in place. Right Pleurx catheter in place. No evidence of pneumothorax. Follow-up blood cultures reveal no growth. Follow-up sputum culture pending. Previous culture positive for Klebsiella pneumoniae. He is currently on vancomycin and cefepime. Random cortisol level pending. The patient did have a significant amount of return from his nasogastric tube. Computed tomography scan of the abdomen and pelvis revealed extensive lower lobe pulmonary consolidation. Right pleural effusion. Cardiomegaly. Fluid volume overload. Abdominal ascites. Evidence of contrast and the stomach and small bowel. No evidence of bowel obstruction. Reglan is initiated today. He is currently in a 2.8 L positive balance. Family is at the bedside. 08/25 2021, I'm seeing the patient for a follow-up. The patient has been reintubated as of 07/22/2021 for hypoxemic respiratory failure,Hypotension, sepsis. This morning, the patient remains intubated on a mechanical ventilator. This morning, the patient is in a propofol which is running at 40 mcg/kg per minute and the patient has been adequately sedated. IV fluids are in the form of half-normal saline at the rate of 75 mL's an hour. The patient is on a combination of pressors and the patient is currently on vasopressin physiologic dose of 0.04 units per minute and the patient is also on levo fed at 0.6 microvascular kilogram per minute. Urine output is quite low at this point in time. The patient is on a mechanical ventilator on assist control mode at the rate of 24 with a tidal volume of 450, and the rate of 24 with a FiO2 of 60% with a PEEP of 8. Morning blood gases showed a tortuous of 7.36 with a pCO2 of 43 and pO2 of 84. The patient has a Pleurx catheter on the right side of the total amount of drainage over the past 24 hours has been 50 mL and this was drained by the cardiothoracic team. The last drainage prior was on 07/22/2021 where the patient had total of 250 mL of drainage from the right side of Pleurx catheter. Left sided chest tube has been removed. The patient's cardiac rhythm is paced although the patient has a [id number] atrial fibrillation. The chest x-ray from today is showing consolidation bilaterally more so on the right. There is also improvement in the right-sided consolidation compared to yesterday. There is cardiomegaly and there is evidence of bilateral pleural effusion. In terms of cultures, the patient grew Klebsiella in his sputum on earlier sputum culture. Subsequently, the cultures revealedStaph epidermidis in the blood and the patient is currently on a combination of cefepime and Vanco mycin. In terms of blood work from today, the patient has a white cell count of 20.2 with hemoglobin of 8.4 and a platelet count of 101 which is slightly lower compared to yesterday. INR today is at 3.3. As for the electrolytes, the patient's creatinine is at 2.05 which is stable compared to yesterday with a BUN of 82 and the sodium level of 143. Potassium level is at 4.0. LFTs are essentially within normal limits. The patient is on tube feeds and the patient is receiving Nepro at the rate of 20 mL an hour. Nephrology is on the case. Cardiac thoracic surgery is on the case. The patient is postop day #28 The patient is seen today 08/26/2021 in follow-up. Postoperative day #29. The patient has been reintubated as of 07/22/2021 for hypoxemic respiratory failure, hypotension, sepsis. This morning, the patient remains intubated on a mechanical ventilator. This morning, the patient is on propofol which is running at 40 mcg/kg per minute and the patient has been adequately sedated. IV fluids are in the form of half-normal saline at the rate of 75 mL's an hour. The patient is on a combination of pressors and the patient is currently on vasopressin physiologic dose of 0.04 units per minute and the patient is also on norepinephrine at 0.65 micrograms kilogram per minute. Urine output is quite low at this point in time. The patient is on a mechanical ventilator on assist control mode at the rate of 24 with a tidal volume of 450, and the rate of 24 with a FiO2 of 50% with a PEEP of 6. Morning blood gases revealed a PaO2 of 79, pCO2 42, pH 7.36. The patient has a Pleurx catheter on the right side of the total amount of drainage over the past 24 hours has been 50 mL and this was bettina cuevas. He is continued on vancomycin and cefepime. Remains on enteral tube feedings for nutritional support. His albumin remains quite low at 1.9. White count 16.7. Hemoglobin 8.2. Platelet count 86,000. INR 3.8. Sodium 145. Potassium 3.7. Chloride 114. Bicarb 23. BUN 77. Creatinine 2.12. Glucose 128. AST 33. ALT 13. Follow-up sputum culture revealed no growth. Urine culture revealed no growth. Chest x-ray continues show cardiomegaly with a small right greater than left pleural effusions despite right basilar chest tube. Persistent mid to lower bilateral acute infiltrate/edema. No significant change compared to yesterday. He remains on DuoNeb inhalations, decannulated with warfarin. Underlying rhythm is atrial fibrillation occasional paced rhythm. His and other family members are present at the bedside. Objective - Vital Signs Vital signs: Vital Signs Temp 99.3 F 08/26/21 08:00 Pulse 86 08/26/21 10:00 Resp 97 H 08/26/21 10:00 BP 108/70 08/26/21 10:00 Pulse Ox 95 08/26/21 10:00 Intake & Output 08/25/21 08/26/21 08/26/21 18:59 06:59 18:59 Intake Total 1397.014 778.167 152.050 Output Total 705 675 Balance 692.014 103.167 152.050 Weight 68.7 kg Intake: IV 549 276 Pressure Bag 39 36 Sodium Chloride 0.45% 1, 510 240 000 ml @ 20 mls/hr IV . Q24H [facility] Rx#:[id number] Intake, IV Titration 580.014 424.167 152.050 Amount Cefepime 1 gm In Sodium 50 Chloride 0.9% 50 ml @ 12. 5 mls/hr IVPB Q12H [facility] Rx #:[id number] Norepinephrine 32 mg In 180.014 238.429 94.892 Sodium Chloride 0.9% 218 ml @ 0.9 MCG/KG/MIN 28. 983 mls/hr IV .Q8H38M [facility] Rx#:[id number] Vancomycin 1,250 mg In 250 Sodium Chloride 0.9% 250 ml @ 125 mls/hr IVPB Q24H [facility] Rx#:[id number] propofoL 1,000 mg In 100 Empty Bag 1 bag @ 5 MCG/ KG/MIN 2.061 mls/hr IV . Q24H [facility] Rx#:[id number] propofoL 1,000 mg In 185.738 57.158 Empty Bag 1 bag @ 5 MCG/ KG/MIN 2.061 mls/hr IV . Q24H [facility] Rx#:[id number] Tube Feeding 268 48 Other 30 Output: Urine 705 675 Other: Voiding Method Indwelling Catheter Indwelling Catheter Indwelling Catheter ABP, PAP, CO, CI - Last Documented Arterial Blood Pressure 112/45 Pulmonary Artery Pressure 35/28 Cardiac Output 5 Cardiac Index 2.7 - Exam GENERAL EXAM: Intubated, sedated frail 81-year-old male patient. On the mechanical ventilator with an FiO2 of 50% and a PEEP of 6. HEAD: Normocephalic. EYES: Sluggish reaction of pupils, equal size. NOSE: Clear with pink turbinates. THROAT: No erythema or exudates. NECK: No masses, no JVD. Left IJ triple-lumen catheter placed CHEST: No chest wall deformity. Sternal incision clean dry well approximated. Right-sided Pleurx catheter in place. LUNGS: Equal air entry with bilateral scattered rhonchi. CVS: S1 and S2 normal with no audible murmur, paced irregular rhythm. ABDOMEN: Distended, tympanic abdomen. Hypoactive. PEG tube in place. SPINE: No scoliosis or deformity SKIN: No rashes CENTRAL NERVOUS SYSTEM: No focal deficits, tone is normal in all 4 extremities. EXTREMITIES: There is no peripheral edema. No clubbing, no cyanosis. Peripheral pulses are intact. - Labs CBC & Chem 7: 08/26/21 03:50 08/26/21 03:50 Labs: Abnormal Lab Results - Last 24 Hours (Table) 08/25/21 08/25/21 08/25/21 Range/Units 03:45 03:46 05:01 WBC (3.8-10.6) k/uL RBC (4.30-5.90) m/uL Hgb (13.0-17.5) gm/dL Hct (39.0-53.0) % MCV (80.0-100.0) fL MCHC (31.0-37.0) g/dL RDW (11.5-15.5) % Plt Count (150-450) k/uL Neutrophils # (1.3-7.7) k/uL Lymphocytes # (1.0-4.8) k/uL Macrocytosis PT (9.0-12.0) sec INR (<1.2) ABG pO2 (83-108) mmHg ABG Total CO2 26 H (19-24) mmol/L Chloride (98-107) mmol/L BUN (9-20) mg/dL Creatinine (0.66-1.25) mg/dL Glucose (74-99) mg/dL POC Glucose (mg/dL) (75-99) mg/dL Calcium (8.4-10.2) mg/dL Alkaline Phosphatase (38-126) U/L Total Protein (6.3-8.2) g/dL Albumin (3.5-5.0) g/dL Prealbumin <3.0 L (18.0-42.0) mg/dL Hep Bs Antibody Reactive A (Nonreactive) 08/25/21 08/25/21 08/26/21 Range/Units 18:20 23:47 03:50 WBC 16.7 H (3.8-10.6) k/uL RBC 2.68 L (4.30-5.90) m/uL Hgb 8.2 L (13.0-17.5) gm/dL Hct 28.0 L (39.0-53.0) % MCV 104.5 H (80.0-100.0) fL MCHC 29.1 L (31.0-37.0) g/dL RDW 19.2 H (11.5-15.5) % Plt Count 86 L (150-450) k/uL Neutrophils # 15.2 H (1.3-7.7) k/uL Lymphocytes # 0.3 L (1.0-4.8) k/uL Macrocytosis Marked A PT (9.0-12.0) sec INR (<1.2) ABG pO2 (83-108) mmHg ABG Total CO2 (19-24) mmol/L Chloride (98-107) mmol/L BUN (9-20) mg/dL Creatinine (0.66-1.25) mg/dL Glucose (74-99) mg/dL POC Glucose (mg/dL) 138 H 167 H (75-99) mg/dL Calcium (8.4-10.2) mg/dL Alkaline Phosphatase (38-126) U/L Total Protein (6.3-8.2) g/dL Albumin (3.5-5.0) g/dL Prealbumin (18.0-42.0) mg/dL Hep Bs Antibody (Nonreactive) 08/26/21 08/26/21 08/26/21 Range/Units 03:50 03:50 05:28 WBC (3.8-10.6) k/uL RBC (4.30-5.90) m/uL Hgb (13.0-17.5) gm/dL Hct (39.0-53.0) % MCV (80.0-100.0) fL MCHC (31.0-37.0) g/dL RDW (11.5-15.5) % Plt Count (150-450) k/uL Neutrophils # (1.3-7.7) k/uL Lymphocytes # (1.0-4.8) k/uL Macrocytosis PT 38.0 H (9.0-12.0) sec INR 3.8 H (<1.2) ABG pO2 79 L (83-108) mmHg ABG Total CO2 25 H (19-24) mmol/L Chloride 114 H (98-107) mmol/L BUN 77 H (9-20) mg/dL Creatinine 2.12 H (0.66-1.25) mg/dL Glucose 128 H (74-99) mg/dL POC Glucose (mg/dL) (75-99) mg/dL Calcium 7.2 L (8.4-10.2) mg/dL Alkaline Phosphatase 132 H (38-126) U/L Total Protein 4.3 L (6.3-8.2) g/dL Albumin 1.9 L (3.5-5.0) g/dL Prealbumin (18.0-42.0) mg/dL Hep Bs Antibody (Nonreactive) 08/26/21 Range/Units 05:33 WBC (3.8-10.6) k/uL RBC (4.30-5.90) m/uL Hgb (13.0-17.5) gm/dL Hct (39.0-53.0) % MCV (80.0-100.0) fL MCHC (31.0-37.0) g/dL RDW (11.5-15.5) % Plt Count (150-450) k/uL Neutrophils # (1.3-7.7) k/uL Lymphocytes # (1.0-4.8) k/uL Macrocytosis PT (9.0-12.0) sec INR (<1.2) ABG pO2 (83-108) mmHg ABG Total CO2 (19-24) mmol/L Chloride (98-107) mmol/L BUN (9-20) mg/dL Creatinine (0.66-1.25) mg/dL Glucose (74-99) mg/dL POC Glucose (mg/dL) 146 H (75-99) mg/dL Calcium (8.4-10.2) mg/dL Alkaline Phosphatase (38-126) U/L Total Protein (6.3-8.2) g/dL Albumin (3.5-5.0) g/dL Prealbumin (18.0-42.0) mg/dL Hep Bs Antibody (Nonreactive) Microbiology - Last 24 Hours (Table) 08/23/21 00:11 Gram Stain - Final Sputum Sputum Culture - Final Assessment and Plan Assessment: Mitral valve regurgitation, status post mitral valve replacement, tricuspid valve regurgitation, status post tricuspid valve repair, coronary artery disease, status post 1 vessel CABG. On 08/22/2021 the patient developed significant hypotension and subsequently re-required intubation mechanical ventilatory support. He is on 61 g of norepinephrine and 0.04 units of vasopressin. Requiring 50% FiO2 and a PEEP of 6 currently. Septic shock/hypotension, currently on a combination of pressors including vasopressin and norepinephrine Continued right-sided pleural effusion, Pleurx catheter placed Poor oral intake, PEG tube placed on 08/20/2021 and enteral feeding initiated Benign essential hypertension Chronic atrial fibrillation History of sick sinus syndrome and previous pacemaker placement in 2017 Chronic systolic congestive heart failure Atrial septal defect post closure Acute on chronic renal failure, baseline creatinine 1.6-1.7. Creatinine 2.12 Obstructive sleep apnea syndrome Chronic and recurrent right-sided pleural effusion requiring multiple thoracentesis procedures and now he continues to have a Pleurx catheter in place. Postoperative acute blood loss anemia and thrombocytopenia, expected Positive sputum for Klebsiella pneumonia, suspect Klebsiella pneumonia trach eobronchitis, completed cefepime in follow-up sputum cultures reveal no growth. Currently on vancomycin and again cefepime Plan: The patient was seen and evaluated Chest x-ray, ABGs and labs reviewed Continue the current vent settings Remains on antibiotics in the form of vancomycin and cefepime Continue pressors, titrate as tolerated DuoNeb inhalations every 4 hours Overall condition is critical Family is at the bedside and aware of the current situation They are considering placing the patient in comfort care Until a decision is made we'll continue with full supportive care I have personally seen and examined the patient, performed the documentation and the assessment and plan as written. Number of minutes spent on the visit: 15. This is a joint evaluation that was done along with a nurse practitioner pedis evaluation was done and more than 30 minutes. During this evaluation, I have elected discussion with the cardiothoracic team. I also discussed the case with the family. In fact there were 2 family members arriving from [place] and [place]. The was also the bedside. In summary, the patient is not showing any signs of progress. The ventilator was checked. Blood gases were checked. Chest x-ray was checked. There is concern of ongoing bilateral lower lobe pneumonia. The patient was still pressor dependent and had signs of multisystem organ failure. At the same time the patient was requiring high doses of pressors, he was having significant third spacing and edema in all 4 extremities. In terms of blood work, the blood work was reviewed and the findings are essentially stable. Creatinine was stable at 2.1. The white cell count was still elevated. The patient remained on same antibiotic coverage. The Pleurx catheter was drained today by the cardiothoracic team. Based on our evaluation, the patient carried a very poor prognosis. The family opted to proceed with comfort care measures. Based on that, we made recommendations to extubate this patient and proceed with end-of-life care. The family was very much appreciative. The understood the poor outcome specially with his prolonged and complicated post operative course. The cardiothoracic team was also agreeable with end-of-life care. Time with Patient: Greater than 30
[2021-08-27] MEDS ORDERED: VANCOMYCIN TROUGH DUE 1 EACH MISC MISCELLANE ONE (09:00)
[2021-08-27] MEDS ORDERED: ERGOCALCIFEROL 1,250 MCG (50,000 IU) CAPSULE PO SCH (09:00)
--- NOTE | 2021-08-29 15:49 | P.DS ---
Providers Date of admission: 07/28/21 05:38 Expected date of discharge: 08/26/21 Attending physician: Paul Collado Consults: 07/28/21 13:50 Consult Physician Routine Consulting Provider: Tesfaye Salinas Consult Reason/Comments: [employer] Consult: post cardiac surgery Do you want consulting provider notified?: Yes 08/04/21 07:54 Consult Physician Routine Consulting Provider: Damian Brunson Consult Reason/Comments: elevated BUN/CR known to service Do you want consulting provider notified?: Yes 08/04/21 11:58 Consult Physician Routine Consulting Provider: James Petit Consult Reason/Comments: Evaluation for inpatient rehab Do you want consulting provider notified?: Yes 08/18/21 08:12 Consult Physician Routine Consulting Provider: Cameron Russ Consult Reason/Comments: urine retention Do you want consulting provider notified?: Yes 08/18/21 11:31 Consult Physician Routine Consulting Provider: Jermain Webber Consult Reason/Comments: PEG tube placemet Do you want consulting provider notified?: Yes 08/19/21 11:06 Consult Physician Routine Consulting Provider: Trisha Marion Consult Reason/Comments: old stroke? Do you want consulting provider notified?: Yes 08/19/21 11:20 Consult Physician Routine Consulting Provider: Marbin Wells Consult Reason/Comments: Depression Do you want consulting provider notified?: Yes Primary care physician: Christin Brink Hospital Course: FINAL DIAGNOSIS: 1. Mitral valve regurgitation, previous mitral clip in 2019 2. Tricuspid valve regurgitation 3. Coronary artery disease with previous myocardial infarction and PCI 4. History of hypertension 5. Chronic atrial fibrillation on Coumadin for anticoagulation, post cardioversion 6. History of sick sinus syndrome status post [facility] permanent pacemaker placement in 2017 7. Acute on chronic systolic heart failure 8. Atrial septal defect status post closure 9. Acute on chronic renal failure stage IIIB 10. Previous tobacco dependence 11. Severe restrictive lung disease, preoperative FEV1 47% of protected 12. Recurrent right-sided pleural effusion with history of multiple thoracenteses 13. Obstructive sleep apnea with home CPAP use 14. Remote history of pneumonia 15. History of prostate cancer, untreated 16. Family history of premature coronary artery disease 17. Postoperative acute blood loss anemia and thrombocytopenia, expected 18. Coagulopathy, unexpected and unexplained 19. Leukocytosis, elevated procalcitonin, sputum culture positive for Klebsiella pneumoniae 20. Altered mental status after surgery due to delirium from lack of sleep, resolved 21. Urinary retention requiring replacement of Colin catheter 22. Malnutrition and general debility 23. Acute hypoxic respiratory failure, unexpected 24. Sepsis, unexpected PRINCIPAL PROCEDURE: 1. Mitral valve replacement with 31 mm Mosaic porcine valve prosthesis 2. Tricuspid valve repair with 30 mm MC 3 band 3. Coronary artery bypass grafting 1 with reverse saphenous vein graft to the obtuse marginal artery 4. Endovascular vein harvest of left greater saphenous vein 5. Epi-aortic ultrasound 6. Closure of the left atrial appendage and closure of ASD 7. Right-sided pigtail catheter placement by interventional radiology followed by right-sided Pleurx catheter 8. EGD with PEG tube placement HISTORY OF PRESENT ILLNESS: This is an 81-year-old gentleman he followed on an outpatient basis with Dr. KAYLYN Diego for cardiology. He had been experiencing heart failure symptomatology in the form of shortness of breath with exertion and inability to perform his activities of daily living. He had a known history of valvular heart disease and had been scheduled previously a year and a half ago for mitral valve and tricuspid valve repair but decided to go to [facility] for MitraClip. His level of mitral regurgitation was reduced from 4+ to 2-3+ which was felt to be acceptable at the time. The patient initially felt better but subsequently became worse and was becoming more and more dyspneic with activity. He received workup again from Dr. Diego including heart catheterization and transesophageal echocardiogram. The AVIVA demonstrated 3+ mitral regurgitation with posteriorly directed high velocity jet, no reversal flow in the pulmonary veins, mitral clip was noted to be in place and functioning, PA pressures were markedly elevated. At that time the patient also had wide-open tricuspid regurgitation. Cardiac catheterization demonstrated tight stenosis at the orifice of the circumflex coronary artery. The patient was referred to Dr. Collado from cardiothoracic surgery for recommendations. Dr. Collado had a long discussion with the patient and his including the fact surgery would now include mitral replacement, tricuspid repair as well as single-vessel bypass. It was discussed that by definition patient's referred for MitraClip are not traditionally surgical candidates. The patient was felt to be very high risk, however the patient wanted to proceed. After obtaining dental clearance the patient was scheduled at the earliest possible date. HOSPITAL COURSE: The patient was brought to the hospital on 07/28/21, taken to the preoperative area, prepared in the usual fashion, and subsequently taken to the operating room where Dr. Collado completed mitral replacement, tricuspid repair, and single vessel CABG. Upon completion of surgery the patient was transferred to the cardiovascular intensive care unit where he was recovered and monitored hemodynamically. He was extubated, all lines, tubes, and drips were discontinued when appropriate. The patient had a yuval recovery from surgery including urinary retention requiring replacement of colin catheter, continued right sided pleural effusion requiring placement of pleurx catheter, and continued malnutrition with placement of PEG tube for supplemental nutrition. Unfortunately, after three and a half weeks the patient became hemodynamically unstable and was re-intubated. He didn't show any significant improvement after a few days and family decided to change his code status and withdraw care, and the patiend very quickly. Plan - Discharge Summary Discharge Rx Participant: Yes New Discharge Prescriptions: New Darbepoetin Samir [Aranesp] 60 mcg SQ Q7D each Aspirin 81 mg PO DAILY Warfarin [Coumadin] 1 mg PO DAILY@0900 tab Ipratropium-Albuterol Nebulize [Duoneb 0.5 mg-3 mg/3 ml Soln] 3 ml INHALATION RT-QID ml Ipratropium-Albuterol Nebulize [Duoneb 0.5 mg-3 mg/3 ml Soln] 3 ml INHALATION RT-Q2H PRN ml PRN Reason: Shortness Of Breath Or Wheezing Tamsulosin [Flomax] 0.4 mg PO PC-SUPPER guaiFENesin [Mucinex] 600 mg PO Q12HR PRN tablet PRN Reason: Cough Multivitamins, Thera [Multivitamin (formulary)] 1 each PO DAILY@1200 tab INSULIN ASPART (NovoLOG) [NovoLOG (formulary)] 0 unit SQ ACHS ml Pantoprazole [Protonix] 40 mg PO AC-BRKFST tab Thiamine [Vitamin B-1] 100 mg PO DAILY@1200 tab Lidocaine Viscous 2% [Xylocaine Viscous] 30 ml PO TID ml Bumetanide [BUMEX] 2 mg PO DAILY tab bisacodyL [Dulcolax] 10 mg RECTAL DAILY PRN supp PRN Reason: Constipation Folic Acid 1 mg PO DAILY@1200 tab Megestrol [Megace] 400 mg PO DAILY ml Melatonin 3 mg PO HS tablet Nystatin 100,000 Unit/ml Susp [Mycostatin Oral Susp] 3,000,000 unit PO TID ml Chlorhexidine Gluconate [Peridex] 15 ml MUCOUS MEM BID ml Budesonide-Formot 160-4.5 Mcg [Symbicort 160-4.5 Mcg Inhaler] 2 puff INHALA TION RT-BID gm Acetaminophen Tab [Tylenol] 650 mg PO Q4HR PRN tab PRN Reason: Fever And/ Or Pain Sertraline [Zoloft] 50 mg PO DAILY tab Continue Atorvastatin [Lipitor] 40 mg PO HS Ferrous Sulfate [Iron] 325 mg PO QAM Calcium Acetate 667 mg PO HS Ascorbic Acid [Vitamin C] 1,000 mg PO QAM Ergocalciferol [Vitamin D2 (1250 Mcg = 85889 Iu)] 1,250 mcg PO Q30D #0 Discontinued amLODIPine BESYLATE [Norvasc] 10 mg PO HS #30 tablet Clopidogrel Bisulfate [Plavix] 75 mg PO QAM Bumetanide [Bumex] 3 mg PO HS Isosorbide Mononitrate ER [Imdur] 60 mg PO QAM Warfarin [Coumadin] 1 mg PO HS Losartan Potassium 50 mg PO QAM Potassium Chloride [Klor-Con 20 Packets] 20 meq PO BID Loratadine [Claritin] 10 mg PO QAM Folic Acid 0.4 mg PO QAM Bumetanide [BUMEX] 1 mg PO QAM Allopurinol [Zyloprim] 150 mg PO QAM Mupirocin [Mupirocin 2%] 1 applic NASAL BID #1 tub Aspirin 325 mg PO DAILY Discharge Medication List Atorvastatin [Lipitor] 40 mg PO HS 07/21/14 [History] Ascorbic Acid [Vitamin C] 1,000 mg PO QAM 07/22/21 [History] Calcium Acetate 667 mg PO HS 07/22/21 [History] Ferrous Sulfate [Iron] 325 mg PO QAM 07/22/21 [History] Acetaminophen Tab [Tylenol] 650 mg PO Q4HR PRN tab 08/22/21 [Rx] Aspirin 81 mg PO DAILY 08/22/21 [Rx] Budesonide-Formot 160-4.5 Mcg [Symbicort 160-4.5 Mcg Inhaler] 2 puff INHALATION RT-BID gm 08/22/21 [Rx] Bumetanide [BUMEX] 2 mg PO DAILY tab 08/22/21 [Rx] Chlorhexidine Gluconate [Peridex] 15 ml MUCOUS MEM BID ml 08/22/21 [Rx] Darbepoetin Samir [Aranesp] 60 mcg SQ Q7D each 08/22/21 [Rx] Ergocalciferol [Vitamin D2 (1250 Mcg = 70141 Iu)] 1,250 mcg PO Q30D #0 08/22/21 [Rx] Folic Acid 1 mg PO DAILY@1200 tab 08/22/21 [Rx] INSULIN ASPART (NovoLOG) [NovoLOG (formulary)] 0 unit SQ ACHS ml 08/22/21 [Rx] Ipratropium-Albuterol Nebulize [Duoneb 0.5 mg-3 mg/3 ml Soln] 3 ml INHALATION RT-Q2H PRN ml 08/22/21 [Rx] Ipratropium-Albuterol Nebulize [Duoneb 0.5 mg-3 mg/3 ml Soln] 3 ml INHALATION RT-QID ml 08/22/21 [Rx] Lidocaine Viscous 2% [Xylocaine Viscous] 30 ml PO TID ml 08/22/21 [Rx] Megestrol [Megace] 400 mg PO DAILY ml 08/22/21 [Rx] Melatonin 3 mg PO HS tablet 08/22/21 [Rx] Multivitamins, Thera [Multivitamin (formulary)] 1 each PO DAILY@1200 tab 08/22/21 [Rx] Nystatin 100,000 Unit/ml Susp [Mycostatin Oral Susp] 3,000,000 unit PO TID ml 08/22/21 [Rx] Pantoprazole [Protonix] 40 mg PO AC-BRKFST tab 08/22/21 [Rx] Sertraline [Zoloft] 50 mg PO DAILY tab 08/22/21 [Rx] Tamsulosin [Flomax] 0.4 mg PO PC-SUPPER 08/22/21 [Rx] Thiamine [Vitamin B-1] 100 mg PO DAILY@1200 tab 08/22/21 [Rx] Warfarin [Coumadin] 1 mg PO DAILY@0900 tab 08/22/21 [Rx] bisacodyL [Dulcolax] 10 mg RECTAL DAILY PRN supp 08/22/21 [Rx] guaiFENesin [Mucinex] 600 mg PO Q12HR PRN tablet 08/22/21 [Rx] Discharge Disposition: - Preliminary Cause of Preliminary Cause of : sepsis
== END 2021-08-26 12:20 | disposition expired | DRG 219 ==
LOC: 2ORMAIN 05:38 → 2SICU 12:07
PROVIDERS: ADMIT Thoracic Surgery (Cardiothoracic Vascular Surgery); ATTEND Thoracic Surgery (Cardiothoracic Vascular Surgery)
PROC: 02RJ08Z Replacement of Tricuspid Valve with Zooplastic Tissue, Open Approach (ICD-10-PCS; 2021-07-28)
PROC: 06BQ4ZZ Excision of Left Saphenous Vein, Percutaneous Endoscopic Approach (ICD-10-PCS; 2021-07-28)
PROC: 0JH63VZ Insertion of Infusion Pump into Chest Subcutaneous Tissue and Fascia, Percutaneous Approach (ICD-10-PCS; 2021-07-28)
PROC: 0PB00ZZ Excision of Sternum, Open Approach (ICD-10-PCS; 2021-07-28)
PROC: 02L70ZK Occlusion of Left Atrial Appendage, Open Approach (ICD-10-PCS; 2021-07-28)
PROC: 0BH17EZ Insertion of Endotracheal Airway into Trachea, Via Natural or Artificial Opening (ICD-10-PCS; 2021-07-28)
PROC: 0W9930Z Drainage of Right Pleural Cavity with Drainage Device, Percutaneous Approach (ICD-10-PCS; 2021-07-28)
PROC: 5A1221Z Performance of Cardiac Output, Continuous (ICD-10-PCS; 2021-07-28)
PROC: B246ZZ4 Ultrasonography of Right and Left Heart, Transesophageal (ICD-10-PCS; 2021-07-28)
PROC: 0W9C30Z Drainage of Mediastinum with Drainage Device, Percutaneous Approach (ICD-10-PCS; 2021-07-28)
PROC: 0W9B30Z Drainage of Left Pleural Cavity with Drainage Device, Percutaneous Approach (ICD-10-PCS; 2021-07-28)
PROC: 0W9930Z Drainage of Right Pleural Cavity with Drainage Device, Percutaneous Approach (ICD-10-PCS; 2021-07-28)
PROC: 5A1935Z Respiratory Ventilation, Less than 24 Consecutive Hours (ICD-10-PCS; 2021-07-28)
PROC: 30233K1 Transfusion of Nonautologous Frozen Plasma into Peripheral Vein, Percutaneous Approach (ICD-10-PCS; 2021-07-28)
PROC: 30233N1 Transfusion of Nonautologous Red Blood Cells into Peripheral Vein, Percutaneous Approach (ICD-10-PCS; 2021-07-28)
PROC: 30233R1 Transfusion of Nonautologous Platelets into Peripheral Vein, Percutaneous Approach (ICD-10-PCS; 2021-07-28)
PROC: 02RG08Z Replacement of Mitral Valve with Zooplastic Tissue, Open Approach (ICD-10-PCS; principal; 2021-07-28 08:00)
PROC: 02Q50ZZ Repair Atrial Septum, Open Approach (ICD-10-PCS; 2021-07-28 08:00)
PROC: 0210093 Bypass Coronary Artery, One Artery from Coronary Artery with Autologous Venous Tissue, Open Approach (ICD-10-PCS; 2021-07-28 08:00)
PROC: 4A133B1 Monitoring of Arterial Pressure, Peripheral, Percutaneous Approach (ICD-10-PCS; 2021-07-29)
PROC: 4A133J1 Monitoring of Arterial Pulse, Peripheral, Percutaneous Approach (ICD-10-PCS; 2021-07-29)
PROC: 05HM33Z Insertion of Infusion Device into Right Internal Jugular Vein, Percutaneous Approach (ICD-10-PCS; 2021-07-29)
PROC: B543ZZA Ultrasonography of Right Jugular Veins, Guidance (ICD-10-PCS; 2021-07-29)
PROC: 0W9930Z Drainage of Right Pleural Cavity with Drainage Device, Percutaneous Approach (ICD-10-PCS; 2021-07-30)
PROC: 3E033XZ Introduction of Vasopressor into Peripheral Vein, Percutaneous Approach (ICD-10-PCS; 2021-07-30)
PROC: 3E0G76Z Introduction of Nutritional Substance into Upper GI, Via Natural or Artificial Opening (ICD-10-PCS; 2021-08-01)
PROC: 0W9930Z Drainage of Right Pleural Cavity with Drainage Device, Percutaneous Approach (ICD-10-PCS; 2021-08-04)
PROC: 0W9930Z Drainage of Right Pleural Cavity with Drainage Device, Percutaneous Approach (ICD-10-PCS; 2021-08-04)
PROC: 0W9930Z Drainage of Right Pleural Cavity with Drainage Device, Percutaneous Approach (ICD-10-PCS; 2021-08-14)
PROC: 5A09557 Assistance with Respiratory Ventilation, Greater than 96 Consecutive Hours, Continuous Positive Airway Pressure (ICD-10-PCS; 2021-08-19)
PROC: 0DH63UZ Insertion of Feeding Device into Stomach, Percutaneous Approach (ICD-10-PCS; 2021-08-20)
PROC: 0DJ08ZZ Inspection of Upper Intestinal Tract, Via Natural or Artificial Opening Endoscopic (ICD-10-PCS; 2021-08-20)
PROC: 0BH17EZ Insertion of Endotracheal Airway into Trachea, Via Natural or Artificial Opening (ICD-10-PCS; 2021-08-22)
PROC: 5A1955Z Respiratory Ventilation, Greater than 96 Consecutive Hours (ICD-10-PCS; 2021-08-23)
PROC: 05HN33Z Insertion of Infusion Device into Left Internal Jugular Vein, Percutaneous Approach (ICD-10-PCS; 2021-08-23)
PROC: B544ZZA Ultrasonography of Left Jugular Veins, Guidance (ICD-10-PCS; 2021-08-23)
PROC: 0BH17EZ Insertion of Endotracheal Airway into Trachea, Via Natural or Artificial Opening (ICD-10-PCS; 2021-08-25)
DX: I25.10 Atherosclerotic heart disease of native coronary artery without angina pectoris (principal); Z00.6 Encounter for examination for normal comparison and control in clinical research program; N17.0 Acute kidney failure with tubular necrosis; J96.01 Acute respiratory failure with hypoxia; E43 Unspecified severe protein-calorie malnutrition; G93.41 Metabolic encephalopathy; A41.59 Other Gram-negative sepsis; J15.0 Pneumonia due to Klebsiella pneumoniae; R65.21 Severe sepsis with septic shock; D62 Acute posthemorrhagic anemia; I13.0 Hypertensive heart and chronic kidney disease with heart failure and stage 1 through stage 4 chronic kidney disease, or unspecified chronic kidney disease; I50.22 Chronic systolic (congestive) heart failure; I48.21 Permanent atrial fibrillation; Q21.1 Atrial septal defect; D68.9 Coagulation defect, unspecified; J90 Pleural effusion, not elsewhere classified; J44.1 Chronic obstructive pulmonary disease with (acute) exacerbation; B37.0 Candidal stomatitis; B37.89 Other sites of candidiasis; E87.0 Hyperosmolality and hypernatremia; E87.1 Hypo-osmolality and hyponatremia; E87.2 Acidosis; Z66 Do not resuscitate; Z51.5 Encounter for palliative care; I31.3 Pericardial effusion (noninflammatory); J44.0 Chronic obstructive pulmonary disease with (acute) lower respiratory infection; J93.83 Other pneumothorax; J98.11 Atelectasis; R18.8 Other ascites; J98.19 Other pulmonary collapse; I48.0 Paroxysmal atrial fibrillation; N18.32 Chronic kidney disease, stage 3b; D69.6 Thrombocytopenia, unspecified; I49.5 Sick sinus syndrome; I27.22 Pulmonary hypertension due to left heart disease; I08.1 Rheumatic disorders of both mitral and tricuspid valves; E78.5 Hyperlipidemia, unspecified; I25.2 Old myocardial infarction; Z88.8 Allergy status to other drugs, medicaments and biological substances; D75.89 Other specified diseases of blood and blood-forming organs; E16.2 Hypoglycemia, unspecified; F32.A Depression, unspecified; E87.8 Other disorders of electrolyte and fluid balance, not elsewhere classified; G47.33 Obstructive sleep apnea (adult) (pediatric); M89.8X9 Other specified disorders of bone, unspecified site; R04.0 Epistaxis; R62.7 Adult failure to thrive; M89.9 Disorder of bone, unspecified; N50.89 Other specified disorders of the male genital organs; Z99.2 Dependence on renal dialysis; Z79.01 Long term (current) use of anticoagulants; Z79.02 Long term (current) use of antithrombotics/antiplatelets; Z79.82 Long term (current) use of aspirin; Z79.899 Other long term (current) drug therapy; Z80.3 Family history of malignant neoplasm of breast; Z82.49 Family history of ischemic heart disease and other diseases of the circulatory system; Z85.46 Personal history of malignant neoplasm of prostate; Z86.73 Personal history of transient ischemic attack (TIA), and cerebral infarction without residual deficits; Z87.01 Personal history of pneumonia (recurrent); Z87.891 Personal history of nicotine dependence; Z90.49 Acquired absence of other specified parts of digestive tract; Z95.0 Presence of cardiac pacemaker; Z95.5 Presence of coronary angioplasty implant and graft; Z22.321 Carrier or suspected carrier of Methicillin susceptible Staphylococcus aureus
CPT/HCPCS: 32551; 36600; 43246; 70450; 71045; 71250; 74176; 76942; 80048; 80053; 80074; 81001; 82150; 82330; 82533; 82607; 82728; 82746; 82805; 83540; 83550; 83605; 83690; 83735; 84100; 84132; 84134; 84145; 85025; 85027; 85384; 85520; 85610; 85730; 86022; 86706; 86850; 86891; 86900; 86901; 86920; 87040; 87070; 87077; 87086; 87186; 87205; 87324; 88305; 93306; 94002; 94003; 94640; 94660